=== PATIENT | female | born 1980 | race Hispanic/Latino ===

== ENCOUNTER → 2017-06-23 | Day surgery (SDC) | payer OTHER ==
[~2017-06-23] MED LIST: ACETAMINOPHEN 1000 MG/100 ML IV ONE; ALPRAZOLAM1 MG PO; AMBIEN CR PO; AMOXICILLIN250 MG; BACTRIM DS TAB1 EACH PO; BELLADONNA/OPIUM 60 MG SUPP PR ONE; CARVEDILOL12.5 MG PO; CEFEPIME-D1 GM/50 ML IV; CEFTIN500 MG PO; CIPRO250 MG; CIPRO500 MG PO; DIAZEPAM5 MG PO; HYDROMORPHONE 1MG/1ML INJ ONE; HYDROMORPHONE 2MG/ML INJ ONE; IOPAMIDOL 610MG/1ML 300 MG/ML VIAL IV ONE; LEVAQUIN500 MG PO; LORTAB 10-5001 EACH PO; MEPERIDINE HCL INJ 50 MG/ML INJ ONE; MEROPENEM 1GM 100 ML IV ONE; MOTRIN PO; NADOLOL; NEURONTIN300 MG PO; NORCO 10MG-325MG1 EA PO; POTASSIUM CITR10 MEQ PO; PROMETHAZINE HCL (IM) 25 MG/ML VIAL ONE; PROPOFOL IV EMULSION 10 MG/ML 20 ML VIAL ONE; PYRIDIUM; PYRIDIUM100 MG PO; PYRIDIUM200 MG PO; SEVOFLURANE INHAL SOLN 250 ML PEN BTL ONE; TYLENOL PO; ZYVOX600 MG PO; levothroxine PO
--- NOTE | 2017-08-14 07:45 | Operative Report ---
DATE OF PROCEDURE: June 23, 2017 PREOPERATIVE DIAGNOSES 1. Left ureterolithiasis. 2. Left nephrolithiasis. 3. Left indwelling ureteral stent. 4. Grade 2 cystocele. POSTOPERATIVE DIAGNOSES 1. Left ureterolithiasis. 2. Left nephrolithiasis. 3. Left indwelling ureteral stent. 4. Grade 2 cystocele. OPERATIONS PERFORMED 1. Cystourethroscopy with complicated removal of left indwelling ureteral stent (separate procedure performed with separate scope for the diagnosis of stent). 2. Left ureteroscopy with manipulation and extraction of left ureteral stone (separate procedure performed for diagnosis of stone). 3. Repeated left ureteroscopy with removal of 2 separate left kidney stones (separate procedure performed for the diagnosis of kidney stones). 4. Urological services for supervision and interpretation of ureteroscopy. 5. Interpretation of retrograde ureteropyelography. 6. Supervision of fluoroscopy. No radiologist present. 7. Pelvic examination under anesthesia. ANESTHESIA: General. COMPLICATIONS: None. CLINICAL SUMMARY: Indiana Rivas is a 36-year-old woman with obstructing left ureterolithiasis. She underwent ureteral stenting. The patient's ureterolithiasis is recurrent. The patient is an extremely complicated urological patient with recurrent admissions, difficult pain control, recurrent complicated urinary tract infections, and difficulty of intravenous access. The patient is brought to the operating room to remove her stent and hopefully render her stent-free and stone-free. She is aware of the risks of bleeding, infection, injury to adjacent structures, need for additional procedures, and need for ongoing urological followup, and compliance with outpatient appointments. She understood all these risks and elected to proceed. OPERATIVE PROCEDURE IN DETAIL: Informed consent was verified. Indiana Rivas was properly identified and taken to the operating room, and placed on the cystoscopy table in the supine position. Anesthesia was uneventfully begun. The patient was then carefully and gently repositioned in the dorsal lithotomy position with all pressure points well-padded. Her genitalia were prepared and draped in the usual sterile fashion. The 22.5-Danish cystoscope sheath with obturator in place was atraumatically inserted into the patient's urethra and the bladder was drained. Panendoscopy revealed no suspicious mucosal lesions. No tumors. No stones and no diverticula. There was a stent emerging from left ureteral orifice. The right ureteral orifice was unremarkable. A guidewire was then placed alongside the stent and guided to the level of the patient's kidney. The stent was then grasped, completely removed and discarded. Semi-rigid ureteroscope was then placed alongside the guidewire up into the left ureter. We identified blood clots as well as a stone. We utilized a Nitinol tipless basket to grasp the stone with the surrounding blood clots, and the stone and blood clots were atraumatically extracted. A secondary guidewire was left in place with the performance of an additional ureteroscopy that showed no additional stones remaining. Over the secondary guidewire, a flexible ureteroscope was then brought up and guided into the level of the patient's kidney. Panendoscopy revealed 2 stones. We grasped the first stone with the Nitinol tipless basket and extracted it. We then passed the ureteroscope back up into the kidney over the secondary guidewire. Careful panendoscopy revealed only 1 stone remaining. Donis plaques were present. No suspicious mucosal lesions were identified. We grasped the 2nd ureteral stone and we extracted it atraumatically carefully examining the ureter, which exhibited no residual blood clots. No residual stones. No strictures. No suspicious lesions. Prior to this final ureteroscopic extraction of the stone, blood clots from within the patient's left renal pelvis we irrigated out via the ureteroscope. At the end of this procedure, there were no blood clots within the upper collecting system and no stones remaining. The patient's bladder was then drained. The cystoscope was withdrawn. Pelvic examination under anesthesia revealed a grade 2 cystocele. No rectocele. No suspicious mucosal lesions were identified. The midurethral sling that was placed years ago seemed to be in an appropriate position. There was no evidence of erosion and no evidence of significant scarring. Interpretation of retrograde ureteropyelography. Contrast was instilled in a retrograde fashion on the left hand side. There was mild fullness of the upper collecting system as one would expect with a stent in place. There were some filling defects which later proved to both stone debris, as well as blood clots. At the end the case, unobstructed drainage was observed fluoroscopically. The patient was then uneventfully reversed from anesthesia and taken to the recovery room in stable condition. There were no complications to the procedure. She tolerated the procedure well. Estimated blood loss was minimal. Explicit postoperative instructions were given. Will plan on following the patient up in the office in a month. Job#: [id number] RI
== END | disposition home or self-care (01) ==
LOC: OR 08:39
PROVIDERS: ATTEND Urology
DX: N20.1 Calculus of ureter (principal); N20.0 Calculus of kidney; N18.9 Chronic kidney disease, unspecified; Z46.6 Encounter for fitting and adjustment of urinary device; N81.10 Cystocele, unspecified; N28.89 Other specified disorders of kidney and ureter; J45.909 Unspecified asthma, uncomplicated; R00.0 Tachycardia, unspecified
CPT/HCPCS: 52352; 74420; 87086; 87186; 88300; C1758; J1170 ×2; J1580; J2001; J2175; J2185; J2550; Q9967

== ENCOUNTER 2017-08-27 03:12 | Emergency (ER) | payer OTHER ==
[~2017-08-27] VITALS: Ht 152.4 cm; Wt 64.9 kg
[~2017-08-27 03:12] MED LIST changes: -ACETAMINOPHEN 1000 MG/100 ML IV ONE; -BELLADONNA/OPIUM 60 MG SUPP PR ONE; -HYDROMORPHONE 1MG/1ML INJ ONE; -HYDROMORPHONE 2MG/ML INJ ONE; -IOPAMIDOL 610MG/1ML 300 MG/ML VIAL IV ONE; -MEPERIDINE HCL INJ 50 MG/ML INJ ONE; -MEROPENEM 1GM 100 ML IV ONE; -PROMETHAZINE HCL (IM) 25 MG/ML VIAL ONE; -PROPOFOL IV EMULSION 10 MG/ML 20 ML VIAL ONE; -SEVOFLURANE INHAL SOLN 250 ML PEN BTL ONE
[2017-08-27] MEDS ORDERED: HYDROCODONE/APAP 5MG-325MG TAB PO ONE (03:15)
[2017-08-27] MEDS ORDERED: PROMETHAZINE HCL (IM) 25 MG/ML VIAL IM ONE (03:15)
[2017-08-27] MEDS ORDERED: CLINDAMYCIN PHOS 600 MG/ 4 ML VIAL IM ONE (03:15)
[2017-08-27] MEDS ORDERED: POTASSIUM CITR10 MEQ PO (03:40)
== END 2017-08-27 03:40 | disposition home or self-care (01) ==
LOC: FSED 03:12
DX: M79.631 Pain in right forearm (principal)
CPT/HCPCS: 99282; J2550

== ENCOUNTER 2017-08-30 11:42 | Emergency (ER) | payer OTHER ==
[~2017-08-30] VITALS: Ht 152.4 cm; Wt 64.9 kg
--- OUTSIDE RECORDS SUMMARY | 2017-08-30 11:46 | XMS REPORT | Continuity of Care Document ---
Author Author [facility] Organization [facility] Address [address] [place] [address] Phone Unavailable Care Team Providers Care Bag Press Operator Name Role Phone DASHA PEDROZA MD PCP Insurance Providers Guarantor Belia Vigil Address [address] [place] [address] Email @Exter[employer] Payer [facility] Policy Number [id number] Subscriber's Name EvelynVahe Marrero Relationship 01 Group Number [id number] Group Name [employer] Effective Date 16 Advance Directives Directive Response Recorded Date/Time Does the patient have an advance directive? No 01/06/17 8:00pm If yes, is advance directive on file with [facility]? No 10/26/16 6:07pm If not on file with [facility] will patient provide a copy? No 11/11/16 9:51pm Problems Medical Problem Onset Date Status Kidney stone 10/26/2015 Acute UTI (urinary tract infection) 01/01/2016 Acute Medications Current Home Medications Medication Dose Units Route Directions Days Qty Instructions Start Date Carvedilol 12.5 Mg Tablet 12.5 Mg Oral Every 12 Hours 60 Tab Phenazopyridine Hcl (Pyridium) 100 Mg Tablet 200 Mg Oral Daily Potassium Citrate 10 Meq Tablet.er 10 Meq Oral Daily 30 Cap Tylenol Oral As Needed Past Home Medications Medication Directions Ordered Status Acetaminophen/Hydrocodone Bitart (Erskine 10MG-325MG*) 1 Ea Tab, 1 Tab Oral Every 4-6 Hours as needed Discontinued Alprazolam 1 Mg Tablet, 1 Mg Oral Three Times A Day Discontinued Ambien Cr , 12.5 Mg Oral Bedtime Discontinued Amoxicillin 250 Mg Capsule, Discontinued Cefepime Hcl/D5w (Cefepime-Dextrose 1 Gm/50 Ml) 1 Gm/50 Ml Piggyback, 1 G Intraven Twice A Day Discontinued Cefuroxime Axetil (Ceftin) 500 Mg Tablet, 500 Mg Oral Twice A Day Discontinued Ciprofloxacin Hcl (Cipro) 500 Mg Tablet, 500 Mg Oral Twice A Day Discontinued Ciprofloxacin Hcl (Cipro) 500 Mg Tablet, 500 Mg Oral Every 12 Hours Discontinued Ciprofloxacin Hcl (Cipro) 250 Mg Tablet, Discontinued Diazepam 5 Mg Tablet, 3 Mg Oral Four Times Daily Discontinued Gabapentin (Neurontin) 300 Mg Capsule, 600 Mg Oral Three Times A Day Discontinued Hydrocodone Bit/Acetaminophen (Lortab 10-500 Tablet) 1 Each Tablet, 1 Tab Oral Four Times Daily Discontinued Levofloxacin (Levaquin) 500 Mg Tablet, 500 Mg Oral Daily Discontinued Levothroxine , 0.5 Mg Oral Daily Discontinued Linezolid (Zyvox) 600 Mg Tablet, 600 Mg Oral Every 12 Hours Discontinued Motrin , 800 Mg Oral As Needed Discontinued Nadolol , Discontinued Phenazopyridine Hcl (Pyridium) 200 Mg Tablet, 1 Tab Oral Rt Tid Discontinued Potassium Citrate 10 Meq Tablet.er, 10 Meq Oral Twice A Day Discontinued Pyridium , Discontinued Sulfamethoxazole/Trimethoprim (Bactrim Ds Tablet) 1 Each Tablet, 1 Tab Oral Twice A Day Discontinued Family History Relationship Condition Age at Onset Recorded Date/Time 33 Father Family history of high cholesterol Unknown 10/26/2015 6:07pm 33 Father Family history of hypertension Unknown 10/26/2015 6:07pm 32 Mother Family history of high cholesterol Unknown 10/26/2015 6:07pm Social History Social History Problem Response Recorded Date/Time Onset Date Status Hx Psychiatric Problems No 01/06/2017 8:00pm Not Applicable Not Applicable Hx Eating Disorder No 01/06/2017 8:00pm Not Applicable Not Applicable Hx Substance Use Disorder No 01/06/2017 8:00pm Not Applicable Not Applicable Hx Depression No 01/06/2017 8:00pm Not Applicable Not Applicable Hx Alcohol Use No 01/06/2017 8:00pm Not Applicable Not Applicable Hx Substance Use Treatment No 01/06/2017 8:00pm Not Applicable Not Applicable Hx Physical Abuse No 01/06/2017 8:00pm Not Applicable Not Applicable Smoking Status Start Date Stop Date Never Smoker Hospital Discharge Instructions No hospital discharge instruction information available. Plan of Care Discharge Date 08/27/17 3:40am Disposition HOME, SELF-CARE Condition at Discharge Stable Instructions/Education Provided Laceration Prescriptions See Medication Section Referrals DASHA PEDROZA MD Address: [address] [place] [id number] Additional Instructions/Education Discussed with patient important of follow up with MD for wound check. Take medications as needed for pain and nausea/vomiting. ED warnings given. Functional Status No functional status information available. Allergies, Adverse Reactions, Alerts Allergen Type Severity Reaction Status Last Updated dexamethasone sod phosphate Allergy Intermediate RASH Active 12/05/11 iodine Allergy Intermediate hives Active 10/26/15 Morphine Allergy Mild Active 08/29/08 Dexamethasone Allergy Intermediate RASH Active 10/31/15 Fentanyl Allergy Mild Active 08/29/08 Tramadol Allergy Mild Hives, chest pressure Active 10/31/15 Butorphanol Allergy Mild Active 08/29/08 Ondansetron Adverse Reaction Mild ELEVATES BP Active 10/26/15 Ketorolac Allergy Mild Active 08/29/08 TEGADERM Allergy Mild redness, skin irritation Active 10/31/15 Immunizations No immunization information available. Vital Signs Acute Vital Signs Vital Response Date/Time Temperature (Fahrenheit) 97.5 degrees F (97.6 - 99.5) 04/07/2017 2:28am Pulse Pulse Rate (adult) 68 bpm (60 - 90) 04/07/2017 2:28am Respiratory Rate 19 bpm (12 - 24) 04/07/2017 2:28am Blood Pressure 131/88 mm Hg 04/07/2017 2:28am Height 5 ft 0 in 08/27/2017 3:17am Weight 143.13 lb 08/27/2017 3:17am Body Mass Index 28.0 kg/m^2 08/27/2017 3:17am Results Laboratory Results Test Name Result Units Flags Reference Collection Date/Time Result Date/ Time Comments Urine Opiates Screen POSITIVE H NEGATIVE 01/06/2017 1:19pm 01/06/2017 3:21pm This test provides only a screen. Positive results should be repeated by a confirmatory test. Urine Barbiturates Screen NEGATIVE NEGATIVE 01/06/2017 1:19pm 2016 3:21pm Urine Amphetamines Screen NEGATIVE NEGATIVE 01/06/2017 1:19pm 2016 3:21pm Urine Benzodiazepines Screen POSITIVE H NEGATIVE 01/06/2017 1:19pm 3:21pm This test provides only a screen. Positive results should be repeated by a confirmatory test. Urine Cocaine Screen NEGATIVE NEGATIVE 01/06/2017 1:19pm 01/06/2017 3 :21pm Urine Cannabinoids Screen NEGATIVE NEGATIVE 01/06/2017 1:19pm 2016 3:21pm THESE RESULTS ARE FOR MEDICAL TREATMENT ONLY *THIS REPORT CONTAINS UNCONFIRMED SCREENING RESULTS* POSITIVE RESULTS WILL BE CONFIRMED BY REFERENCE LAB UPON REQUEST CUT-OFF DRUG CLASS CONCENTRATION ng/mL Amphetamines 1000 Methamphetamines 1000 Cocaine 300 Opiate 300 Phencyclidine 25 Cannabinoid 50 Barbiturates 300 Benzodiazepine 300 Methadone 300 Urine Calcium Oxalate Crystals FEW FEW 01/06/2017 1:19pm 01/06/2017 3 :42pm Total Creatine Kinase 139 U/L 24-173 01/11/2017 7:m 01/14/2017 12: 38pm Macro Creatine Kinase Type II 0 % Not Observed 01/11/2017 7:11a2016 12:38pm Creatine Kinase MM 100 % 97-100 01/11/2017 7:11a01/14/2017 12:38pm Creatine Kinase BB 0 % 0 01/11/2017 7:11a01/14/2017 12:38pm Performed at: - [facility] [address] [id number] Petal Shaper Hand: Paulie Stevenson MD, Phone: [phone] Performed at: DA - [facility] [address] [id number] Petal Shaper Hand: MADISYN Garcia MD, Phone: [phone] Macro Creatine Kinase Type I 0 % Not Observed 01/11/2017 7:11am 2016 12:38pm Creatine Kinase MB 0 % 0-3 01/11/2017 7:11am 01/14/2017 12:38pm White Blood Count 6.04 x10e3/uL 4.8-10.8 01/20/2017 5:00pm 01/20/2017 5 :19pm Red Blood Count 4.05 x10e6/uL 3.6-5.1 01/20/2017 5:00pm 01/20/2017 5: 19pm Hemoglobin 11.0 g/dL L 12.0-16.0 01/20/2017 5:00pm 01/20/2017 5:19pm Hematocrit 34.1 % L 34.2-44.1 01/20/2017 5:00pm 01/20/2017 5:19pm Mean Corpuscular Volume 84.2 fL 81-99 01/20/2017 5:00pm 01/20/2017 5: 19pm Mean Corpuscular Hemoglobin 27.2 pg L 28-32 01/20/2017 5:00pm 2016 5:19pm Mean Corpuscular Hemoglobin Concent 32.3 g/dL 31-35 01/20/2017 5:00pm 01/20/2017 5:19pm Red Cell Distribution Width 14.6 % H 11.7-14.4 01/20/2017 5:00pm 2016 5:19pm Platelet Count 437 x10e3/uL H 140-360 01/20/2017 5:00pm 01/20/2017 5: 19pm Neutrophils (%) (Auto) 38.8 % 38.7-80.0 01/20/2017 5:00pm 01/20/2017 5: 19pm Lymphocytes (%) (Auto) 40.7 % H 18.0-39.1 01/20/2017 5:00pm 01/20/2017 5 :19pm Monocytes (%) (Auto) 9.9 % 4.4-11.3 01/20/2017 5:00pm 01/20/2017 5: 19pm Eosinophils (%) (Auto) 10.1 % H 0.0-6.0 01/20/2017 5:00pm 01/20/2017 5: 19pm Basophils (%) (Auto) 0.3 % 0.0-1.0 01/20/2017 5:00pm 01/20/2017 5:19pm IM GRANULOCYTES % 0.2 % 0.0-1.0 01/20/2017 5:00pm 01/20/2017 5:19pm Neutrophils # (Auto) 2.3 2.1-6.9 01/20/2017 5:00pm 01/20/2017 5:19pm Lymphocytes # (Auto) 2.5 1.0-3.2 01/20/2017 5:00pm 01/20/2017 5:19pm Monocytes # (Auto) 0.6 0.2-0.8 01/20/2017 5:00pm 01/20/2017 5:19pm Eosinophils # (Auto) 0.6 H 0.0-0.4 01/20/2017 5:00pm 01/20/2017 5: 19pm Basophils # (Auto) 0.0 0.0-0.1 01/20/2017 5:00pm 01/20/2017 5:19pm Absolute Immature Granulocyte (auto 0.01 x10e3/uL 0-0.1 01/20/2017 5: 00pm 01/20/2017 5:19pm Prothrombin Time 12.7 seconds 11.9-14.5 01/20/2017 5:00pm 01/20/2017 5: 19pm Prothromb Time International Ratio 0.91 01/20/2017 5:00pm 2016 5:19pm Oral Anticoagulant Therapy INR Values: 1. Low Intensity Therapy 1.5 - 2.0 2. Moderate Intensity Therapy 2.0 - 3.0 3. High Intensity Therapy(1) 2.5 - 3.5 4. High Intensity Therapy(2) 3.0 - 4.0 5. Panic Value INR > 5.0 Activated Partial Thromboplast Time 31.3 seconds 23.8-35.5 01/20/2017 5: 00pm 01/20/2017 5:20pm Sodium Level 138 mmol/L 136-145 01/20/2017 5:00pm 01/20/2017 5:29pm Potassium Level 4.3 mmol/L 3.5-5.1 01/20/2017 5:00pm 01/20/2017 5:29pm Chloride Level 109 mmol/L H 98-107 01/20/2017 5:00pm 01/20/2017 5:29pm Carbon Dioxide Level 17 mmol/L L 22-29 01/20/2017 5:00pm 01/20/2017 5: 29pm Anion Gap 16.3 mmol/L H 8-16 01/20/2017 5:00pm 01/20/2017 5:29pm Blood Urea Nitrogen 15 mg/dL 7-26 01/20/2017 5:00pm 01/20/2017 5:29pm Creatinine 0.83 mg/dL 0.57-1.11 01/20/2017 5:00pm 01/20/2017 5:29pm BUN/Creatinine Ratio 18 6-25 01/20/2017 5:00pm 01/20/2017 5:29pm Estimat Glomerular Filtration Rate > 60 ML/MIN 60- 01/20/2017 5:00pm 5:29pm Ranges were taken from the National Kidney Disease Education Program and the National Kid[employer] Foundation literature. Reference ranges: 60 or greater: Normal 16-59 (for 3 consecutive months): Chronic kidney disease 15 or less: Kidney failure Glucose Level 109 mg/dL 74-118 01/20/2017 5:00pm 01/20/2017 5:29pm Calcium Level 9.9 mg/dL 8.4-10.2 01/20/2017 5:00pm 01/20/2017 5:29pm Total Bilirubin 0.3 mg/dL 0.2-1.2 01/20/2017 5:00pm 01/20/2017 5:29pm Aspartate Amino Transf (AST/SGOT) 50 IU/L H 5-34 01/20/2017 5:00pm 01/20 5:29pm Alanine Aminotransferase (ALT/SGPT) 42 IU/L 0-55 01/20/2017 5:00pm 5:29pm Total Protein 8.4 g/dL H 6.5-8.1 01/20/2017 5:00pm 01/20/2017 5:29pm Albumin 4.3 g/dL 3.5-5.0 01/20/2017 5:00pm 01/20/2017 5:29pm Globulin 4.1 g/dL H 2.3-3.5 01/20/2017 5:00pm 01/20/2017 5:29pm Albumin/Globulin Ratio 1.0 0.8-2.0 01/20/2017 5:00pm 01/20/2017 5: 29pm Alkaline Phosphatase 107 IU/L 40-150 01/20/2017 5:00pm 01/20/2017 5: 29pm Urine Color YELLOW YELLOW 04/07/2017 12:39am 04/07/2017 12:42am Urine Clarity CLEAR CLEAR 04/07/2017 12:39am 04/07/2017 12:42am Urine Specific [place] 1.020 1.010-1.025 04/07/2017 12:39am 2016 12:42am Urine pH 6 5 - 7 04/07/2017 12:39am 04/07/2017 12:42am Urine Leukocyte Esterase NEGATIVE NEGATIVE 04/07/2017 12:39am 2016 12:42am Urine Nitrite NEGATIVE NEGATIVE 04/07/2017 12:39am 04/07/2017 12: 42am Urine Protein NEGATIVE NEGATIVE 04/07/2017 12:39am 04/07/2017 12: 42am Urine Glucose (UA) NEGATIVE NEGATIVE 04/07/2017 12:39am 04/07/2017 12 :42am Urine Ketones NEGATIVE NEGATIVE 04/07/2017 12:39am 04/07/2017 12: 42am Urine Urobilinogen 0.2 mg/dL 0.2 - 1 04/07/2017 12:39am 04/07/2017 12: 42am Urine Bilirubin NEGATIVE NEGATIVE 04/07/2017 12:39am 04/07/2017 12: 42am Urine Blood NEGATIVE NEGATIVE 04/07/2017 12:39am 04/07/2017 12:42am Urine WBC 0-5 /HPF 0-5 04/07/2017 12:39am 04/07/2017 12:51am Urine RBC 0-5 /HPF 0-5 04/07/2017 12:39am 04/07/2017 12:51am Urine Bacteria FEW /HPF NONE 04/07/2017 12:39am 04/07/2017 12:51am Urine Epithelial Cells RARE /LPF NONE 04/07/2017 12:39am 04/07/2017 12: 51am Urine Mucus FEW H RARE 04/07/2017 12:39am 04/07/2017 12:51am Microbiology Results Procedure Source Organism/Result Collection Date/Time Result Date/Time Result Status Urine Culture Urine,Clean Catch ESCHERICHIA COLI 11/11/2016 7:20pm 2016 8:00am Final Urine Culture Urine,Catheterized ENTEROCOCCUS FAECIUM-VRE 06/23/2017 11: 25am 06/26/2017 10:41am Final Procedures Procedure Status Date Provider(s) INSERTION OF INFUSION DEV INTO SUP VENA CAVA, PERC APPROACH Completed AL HYDE MD CYSTOURETERO W/STONE REMOVE Completed 06/23/17 SMIAT BRUNO MD MRI upper extremity w/o dye Active 01/09/17 AL HYDE MD MRI non-joint region of extremity upper wo contrast Active 01/09/17 AL HYDE MD Encounters Encounter Location Arrival/Admit Date Discharge/Depart Date Attending Provider Departed Emergency Room [facility] 08/27/17 3:12am 3:40am IMMANUEL POLLOCK MD Registered Emergency Room [facility] 08/27/17 3:00am IMMANUEL POLLOCK MD Registered Emergency Room [facility] 08/27/17 2:16am IMMANUEL POLLOCK MD Registered Surgical Day Care [facility] 06/23/17 8:39am SMITA BRUNO MD Departed Emergency Room [facility] 04/07/17 12:10am 04/07 2:44am AYDEN COLLADO MD Departed Emergency Room [facility] 04/06/17 4:12pm 7:40pm AYDEN COLLADO MD Departed Emergency Room [facility] 01/21/17 2:13am 6:02am AYDEN COLLADO MD Departed Emergency Room [facility] 01/20/17 3:42pm 10:58pm AYDEN COLLADO MD Discharged Inpatient [facility] 01/08/17 9:00am 01/11/17 11:09pm AL HYDE MD Departed Emergency Room [facility] 11/11/16 7:03pm 10:11pm IMMANUEL RANKIN MD
--- OUTSIDE RECORDS SUMMARY | 2017-08-30 11:46 | XMS REPORT | Clinical Summary ---
Author Author [facility] Organization [facility] Address Unknown Phone Unavailable Care Team Providers Care Recovery Advocate Name Role Phone Asked, Pcp PCP Unavailable Allergies Active Allergy Reactions Severity Noted Date Comments Dexamethasone Other (See Comments) 07/14/2016 Dizziness, headache, body tingling Dexamethasone Other (See Comments) 09/27/2016 Headache and hypertension Pimecrolimus Itching, Rash Low 07/14/2016 Fentanyl Shortness Of Breath High 07/14/2016 cp Fentanyl 01/13/2017 Iodine Rash Low 07/14/2016 IV CONTRAST Morphine Shortness Of Breath High 07/14/2016 RASH Morphine Rash Low 09/27/2016 Chest pain Butorphanol Tartrate Rash Low 07/14/2016 Chest tightness Butorphanol Tartrate 01/13/2017 Ketorolac GI Intolerance 07/14/2016 SEVERE VOMITING AND RASH Ketorolac Rash Low 09/27/2016 Chest pain Tramadol Rash Low 09/27/2016 Chest pain Tramadol Rash Low 07/14/2016 Tightness in chest Ondansetron Hcl Other (See Comments) 07/14/2016 HIGH BLOOD PRESSURE WITH SEVERE HEADACHE Ondansetron 09/27/2016 headache Current Medications Prescription Sig. Disp. Refills Start End Date Status Date potassium citrate Take 10 mEq by mouth 2 Active (UROCIT-K) 10 mEq (1,080 (two) times a day. mg) CR tablet phenazopyridine Take 200 mg by mouth 3 Active (PYRIDIUM) 200 MG tablet (three) times a day as needed for bladder spasms. carvedilol (COREG) 12.5 Take 12.5 mg by mouth 2 Active MG tablet (two) times a day with meals. For tachycardia ALPRAZolam (XANAX) 1 MG Take 1 mg by mouth 2 Active tablet (two) times a day. hydromorPHONE (DILAUDID) Take 8 mg by mouth every Active 8 MG tablet 4 (four) hours as needed for moderate pain. fluconazole (DIFLUCAN) Take 200 mg by mouth Active 200 MG tablet daily as needed. For prophylaxis carisoprodol (SOMA) 350 Take 350 mg by mouth 3 Active MG tablet (three) times a day as needed for muscle spasms. promethazine (PHENERGAN) Take 25 mg by mouth every Active 25 MG tablet 6 (six) hours as needed for nausea or vomiting. acetaminophen-codeine Take 1 tablet by mouth 08/24/19 Active (TYLENOL WITH CODEINE #3) every 4 (four) hours as 18 300-30 mg per tablet needed. cephalexin (KEFLEX) 500 Take 500 mg by mouth 2 08/24/19 Active MG capsule (two) times a day. 18 eszopiclone (LUNESTA) 2 Take 2 mg by mouth 08/22/19 Active MG tablet nightly. 18 buPROPion XL (WELLBUTRIN Take 300 mg by mouth 08/03/19 Active XL) 300 MG 24 hr tablet every morning. 18 HYDROcodone-acetaminophen Take 1 tablet by mouth 08/28/19 Discontin (NORCO) 10-325 mg per every 8 (eight) hours as 18 ued tablet needed for moderate pain (breakthrough pain). diazePAM (VALIUM) 5 MG Take 5 mg by mouth every 08/28/19 Discontin tablet 12 (twelve) hours as 18 ued needed for muscle spasms. buprenorphine (BUTRANS) Place 10 mcg on the skin 08/28/19 Discontin 10 mcg/hour patch weekly as needed (pain). 18 ued zolpidem CR (AMBIEN CR) Take 12.5 mg by mouth 08/28/19 Discontin 12.5 MG CR tablet nightly as needed for 18 ued sleep. traZODone (DESYREL) 100 Take 100 mg by mouth 08/28/19 Discontin MG tablet nightly. 18 ued levoFLOXacin (LEVAQUIN) Take 1 tablet (750 mg 5 tablet 0 04/07/20 Discontin 750 MG tablet total) by mouth daily for 17 17 ued 5 days. ciprofloxacin (CIPRO) 500 Take 500 mg by mouth 2 08/28/19 Discontin MG tablet (two) times a day. 18 ued amoxicillin (AMOXIL) 500 Take 500 mg by mouth 3 08/28/19 Discontin MG capsule (three) times a day. 18 ued carvedilol (COREG) 12.5 Take 12.5 mg by mouth 3 1 08/25/19 08/28/19 Discontin MG tablet (three) times a day. 17 18 ued ALPRAZolam (XANAX) 1 MG Take 1 mg by mouth 3 08/28/19 Discontin tablet (three) times a day. 18 ued phenazopyridine Take 200 mg by mouth 3 08/28/19 Discontin (PYRIDIUM) 200 MG tablet (three) times a day as 18 ued needed for bladder spasms. zolpidem CR (AMBIEN CR) Take 12.5 mg by mouth 08/28/19 Discontin 12.5 MG CR tablet nightly as needed for 18 ued sleep. potassium chloride Take 10 mEq by mouth 2 08/28/19 Discontin (KLOR-CON) 20 mEq packet (two) times a day. 18 ued levoFLOXacin (LEVAQUIN) Take 1 tablet (750 mg 5 tablet 0 04/08/20 750 MG tablet total) by mouth daily for 17 17 5 days. Active Problems Problem Noted Date Foreign body left in wound 08/28/2017 DVT (deep venous thrombosis) 01/16/2017 Chronic UTI 01/14/2017 Idiopathic acute pancreatitis without infection or necrosis 09/27/2016 Idiopathic pancreatitis 09/27/2016 Acute cystitis 07/15/2016 Renal stones 07/14/2016 Encounters Date Type Specialty Care Team Description 08/28/2017 Emergency General Internal Medicine Camilo Oneil MD Foreign body left in - Martir Patterson MD wound (Primary Dx) 08/29/2017 04/08/2017 Emergency Emergency Medicine Robin French, Urinary tract infection associated with indwelling urethral catheter, initial encounter (Primary Dx) 04/07/2017 Emergency Emergency Medicine Kt Oliva DO Acute cystitis without hematuria (Primary Dx) 01/13/2017 Emergency General Internal Medicine Diana Barton MD Chronic UTI (Primary Dx); - Bailey Graham MD Pyelonephritis; 01/15/2017 Intractable vomiting with nausea, unspecified vomiting type; Dehydration; Hematuria; Renal colic on left side; Fever, unspecified fever cause; VRE (vancomycin-resistant Enterococci) infection 09/27/2016 [facility] General Internal Medicine Dominic Nicolas DO Idiopathic acute - Encounter Keaton Oseguera MD pancreatitis without 09/28/2016 infection or necrosis (Primary Dx); Kidney stone; Medullary sponge kidney; Intractable cyclical vomiting with nausea after 08/29/2016 Social History Tobacco Use Types Packs/Day Years Used Date Never Smoker Smokeless Tobacco: Never Used Alcohol Use Drinks/Week oz/Week Comments No Sex Assigned at Date Recorded Not on file Last Filed Vital Signs Vital Sign Reading Time Taken Blood Pressure 119/69 08/28/2017 11:51 PM ADMITTING COORDINATOR Pulse 127 08/28/2017 11:51 PM ADMITTING COORDINATOR Temperature 35.7 C (96.2 F) 08/28/2017 11:51 PM ADMITTING COORDINATOR Respiratory Rate 16 08/28/2017 11:51 PM ADMITTING COORDINATOR Oxygen Saturation 99% 08/28/2017 11:51 PM ADMITTING COORDINATOR Inhaled Oxygen - - Concentration Weight 67.6 kg (149 lb) 08/28/2017 2:38 PM ADMITTING COORDINATOR Height 152.4 cm (5') 08/28/2017 2:38 PM ADMITTING COORDINATOR Body Mass Index 29.1 08/28/2017 2:38 PM ADMITTING COORDINATOR Plan of Treatment Health Maintenance Due Date Last Done Comments PAP SMEAR 12/18/2000 INFLUENZA VACCINE 02/07/2017 Implants Implanted Type Area [employer] Device Expiration Model / Identifier Date Serial / Lot Bladder Sling Breast Implant-01/14/2009 Implanted: 01/14/2009 (Quantity not on file) Results * Estimated GFR (08/28/2017 6:02 PM) Only the most recent of 5 results within the time period is included. Component Value Ref Range GFR Non Af Amer 70 mL/min/1.73 m2 GFR Af Amer 85 mL/min/1.73 m2 Comment: Chronic kidney disease: <60 mL/min/1.73m2 Kidney failure: <15 mL/min/1.73m2 The estimated GFR is calculated from the IDMS-traceable Modification of Diet in Renal Disease Equation. The accuracy of the calculation is poor when the creatinine is normal. Calculated values >90 mL/min/1.73m2 are not reported. This equation has not been validated in children (<18 years), women, the elderly (>70 years), or ethnic groups other than Caucasians and Americans. Specimen Performing Laboratory Plasma specimen [facility] DEPARTMENT OF PATHOLOGY AND [facility] MEDICINE [address] [place] [address] * CBC with platelet and differential (08/28/2017 6:02 PM) Only the most recent of 6 results within the time period is included. Component Value Ref Range WBC 5.98 4.50 - 11.00 k/uL RBC 4.03 (L) 4.20 - 5.50 m/uL HGB 10.2 (L) 12.0 - 16.0 g/dL HCT 32.5 (L) 37.0 - 47.0 % MCV 80.6 (L) 82.0 - 100.0 fL MCH 25.3 (L) 27.0 - 34.0 pg MCHC 31.4 31.0 - 37.0 g/dL RDW - SD 48.6 37.0 - 55.0 fL MPV 9.8 8.8 - 13.2 fL Platelet count 371 150 - 400 k/uL Nucleated RBC 0.00 /100 WBC Neutrophils 44.9 39.0 - 69.0 % Lymphocytes 38.6 25.0 - 45.0 % Monocytes 7.9 0.0 - 10.0 % Eosinophils 8.2 (H) 0.0 - 5.0 % Basophils 0.2 0.0 - 1.0 % Immature granulocytes 0.2Comment: "Immature granulocytes" 0.0 - 1.0 % (promyelocytes, myelocytes, metamyelocytes) Specimen Performing Laboratory Blood [facility] DEPARTMENT OF PATHOLOGY AND [facility] MEDICINE [address] [place] [address] * Comprehensive metabolic panel (08/28/2017 6:02 PM) Only the most recent of 4 results within the time period is included. Component Value Ref Range Sodium 140 135 - 148 mEq/L Potassium 3.6 3.5 - 5.0 mEq/L Chloride 102 98 - 112 mEq/L CO2 25 24 - 31 mEq/L Anion gap 13 7 - 15 mEq/L Comment: Starting from October , anion gap calculation no longer incorporates potassium. Please note the change. BUN 16 6 - 20 mg/dL Creatinine 0.9 0.5 - 0.9 mg/dL Glucose 109 (H) 65 - 99 mg/dL Calcium 9.6 8.3 - 10.2 mg/dL Protein 7.8 6.3 - 8.3 g/dL Comment: [place] 4.6-7.0 g/dL 1 week 4.4-7.6 g/dL 7 months-1year 5.1-7.3 g/dL 1-2 years 5.6-7.5 g/dL >3 years 6.0-8.0 g/dL 18-150 6.3-8.3 g/dL Albumin 4.1 3.5 - 5.0 g/dL A/G ratio 1.1 0.7 - 3.8 Alkaline phosphatase 96 35 - 104 U/L AST 24 10 - 35 U/L ALT 16 5 - 50 U/L Total bilirubin 0.2 0.0 - 1.2 mg/dL Specimen Performing Laboratory Plasma specimen [facility] DEPARTMENT OF PATHOLOGY AND GENOMIC MEDICINE [address] [place] [address] * XR Forearm 2 Vw Right (08/28/2017 5:17 PM) Only the most recent of 2 results within the time period is included. Specimen Performing Laboratory [facility] [address] [place] [address] Narrative EXAMINATION:XR FOREARM 2 VW RIGHT CLINICAL HISTORY:s p wound cleaning. re evaluate for FB COMPARISON:None. IMPRESSION: There is some subcutaneous air adjacent to the distal radius. No metallic foreign body is noted. [id number] Procedure Note Interface, Radiology Results Incoming - 08/28/2017 5:48 PM ADMITTING COORDINATOR EXAMINATION: XR FOREARM 2 VW RIGHT CLINICAL HISTORY: s p wound cleaning. re evaluate for FB COMPARISON: None. IMPRESSION: There is some subcutaneous air adjacent to the distal radius. No metallic foreign body is noted. [id number] * Urinalysis screen and microscopy, with reflex to culture (04/08/2017 1:48 PM) Only the most recent of 2 results within the time period is included. Component Value Ref Range Specimen site Clean catch Color, UA Yellow Appearance, UA Clear Specific gravity, UA 1.017 1.001 - 1.035 pH, UA 5.0 5.0 - 8.5 Protein, UA 1+ (A) Negative Glucose, UA Negative Negative Ketones, UA Negative Negative Bilirubin, UA Negative Negative Blood, UA Large (A) Negative Nitrite, UA Negative Negative Urobilinogen, UA <2.0 <2.0 Leukocyte esterase, UA Negative Negative Epithelial cells, UA <1 /HPF WBC, UA 12 (H) 0 - 4 /HPF RBC, UA 38 (H) 0 - 2 /HPF Bacteria, UA Few None seen Yeast, UA None seen Yeast with pseudohyphae, None seen UA Specimen Performing Laboratory Urine [facility] DEPARTMENT OF PATHOLOGY AND GENOMIC MEDICINE [address] [place] [address] * Gram stain (04/08/2017 1:43 PM) Only the most recent of 2 results within the time period is included. Component Value Ref Range Gram stain result Few WBC's Many Gram negative rods Comment: Specimen Information Specimen Source: Urine Specimen Site: See UA Specimen Performing Laboratory Urine [facility] DEPARTMENT OF PATHOLOGY AND GENOMIC MEDICINE [address] [place] [address] * Urine culture (04/08/2017 1:43 PM) Only the most recent of 2 results within the time period is included. Component Value Ref Range Urine culture isolate Escherichia coli >10-5 cfu/ml (A) Comment: Specimen Information Specimen Source: Urine Specimen Site: See UA Specimen Performing Laboratory Urine [facility] DEPARTMENT OF PATHOLOGY AND GENOMIC MEDICINE [address] [place] [address] Organism Antibiotic Method Susceptibility Escherichia coli Ampicillin EFE 16 mcg/mL: Resistant Escherichia coli Amoxicillin/Clavulanate EFE <=2/1 mcg/mL: Susceptible Escherichia coli Amikacin EFE <=4 mcg/mL: Susceptible Escherichia coli Aztreonam EFE <=1 mcg/mL: Susceptible Escherichia coli Ceftazidime EFE <=0.5 mcg/mL: Susceptible Escherichia coli Ciprofloxacin EFE <=0.5 mcg/mL: Susceptible Escherichia coli Ceftriaxone EFE <=0.5 mcg/mL: Susceptible Escherichia coli Cefuroxime Sodium EFE <=4 mcg/mL: Susceptible Escherichia coli Cefazolin EFE 2 mcg/mL: Susceptible Escherichia coli Cefipime EFE <=0.5 mcg/mL: Susceptible Escherichia coli Nitrofurantoin EFE >64 mcg/mL: Resistant Escherichia coli Cefoxitin EFE <=4 mcg/mL: Susceptible Escherichia coli Gentamicin EFE <=1 mcg/mL: Susceptible Escherichia coli Imipenem EFE 0.5 mcg/mL: Susceptible Escherichia coli Levofloxacin EFE <=1 mcg/mL: Susceptible Escherichia coli Meropenem EFE <=0.125 mcg/mL: Susceptible Escherichia coli Tobramycin EFE <=0.5 mcg/mL: Susceptible Escherichia coli Ampicillin/Sulbactam EFE 4/2 mcg/mL: Susceptible Escherichia coli Trimethoprim/Sulfamethoxa EFE <=0.5/9.5 mcg/mL: zole Susceptible Escherichia coli Tetracycline EFE <=1 mcg/mL: Susceptible Escherichia coli Piperacillin/Tazobactam EFE <=2/4 mcg/mL: Susceptible Escherichia coli Ertapenem EFE <=0.125 mcg/mL: Susceptible Escherichia coli Tigecycline EFE <=0.5 mcg/mL: Susceptible * hCG qualitative, urine screen (04/07/2017 9:05 PM) Component Value Ref Range hCG qualitative, urine Negative Negative Comment: The manufacturers stated sensitivity of HcG test for serum is >/=10 mIU/ml and urine is >/=20mIU/ml. Specimen Performing Laboratory Urine [facility] DEPARTMENT OF PATHOLOGY AND GENOMIC MEDICINE [address] [place] [address] [place] [address] * PV duplex venous upper extremity (01/14/2017 8:40 AM) Specimen Performing Laboratory [facility] [address] [place] [address] Narrative Vascular Ultrasound Laboratory Upper Extremity Venous Report [address]Name:Usha RIVAS.ID:[id number] .Date: 01/14/2017Refer.MD:BAILEY GRAHAM MD. Exam Time: 8:11:00 AMStudy Type:UE Venous DOBAge:1980,36Y Sex: FEMALE Sonogrphr: Oscar Caceres RVSPat. Stat.:Inpatient TapeVol: FE, CPT - 4: 52669 Echo Event ID:[id number] Order ID:[id number] Reason for Study:Right arm pain and redness; S/P PICC 01/07/2017 at outside facility. Kidney conditiona and UTI. Race:C SUMMARY: DUPLEX SCAN OBSERVATIONS Right Left IJNormal Normal SubclavianNormal Normal AxillaryNormal Normal BrachialNormal Normal BasilicPartial Partial CephalicNormal Normal RIGHT:The basilic vein is partiallycompressible, and dilated with echogenic material noted within the lumen of the visualized vein. Colorflow and Doppler signals are present. LEFT: The basilic vein is partiallycompressible, and dilated with echogenic material noted within the lumen of the visualized vein. Colorflow and Doppler signals are present. PRELIMINARY FINDINGS 1.Partial venous thrombosis of the basilic vein, . Fndings reported to and read back by Castillo Barker on 01/14/2017 @ 8:45. PHYSICIAN INTERPRETATION 1.Venous examination of both upper extremities and neck demonstrates partial thrombosis of the right and left basilic veins. Signed 01/14/2017 09:10 AM Kale Meadows MD Procedure Note Interface, Radiology Results In - 01/14/2017 9:12 AM CDT Vascular Ultrasound Laboratory Upper Extremity Venous Report [address] [place] [address] Pat.Name: [place] RIVAS Pat.ID: [id number] .Date: 01/14/2017 Refer.MD: BAILEY GRAHAM MD. Exam Time: 8:11:00 AM Study Type:UE Venous Age: 5 1980,36Y Sex: FEMALE Sonogrphr: DARIN Navarrete Pat. Stat.:Inpatient Tape Vol: FE, CPT - 4: 53397 Echo Event ID:[id number] Order ID: [id number] Reason for Study:Right arm pain and redness; S/P PICC 01/07/2017 at outside facility. Kidney conditiona and UTI. Race: C SUMMARY: DUPLEX SCAN OBSERVATIONS Right Left IJ Normal Normal Subclavian Normal Normal Axillary Normal Normal Brachial Normal Normal Basilic Partial Partial Cephalic Normal Normal RIGHT: The basilic vein is partiallycompressible, and dilated with echogenic material noted within the lumen of the visualized vein. Colorflow and Doppler signals are present. LEFT: The basilic vein is partiallycompressible, and dilated with echogenic material noted within the lumen of the visualized vein. Colorflow and Doppler signals are present. PRELIMINARY FINDINGS 1. Partial venous thrombosis of the basilic vein, . Fndings reported to and read back by Castillo Barker on 01/14/2017 @ 8:45. PHYSICIAN INTERPRETATION 1. Venous examination of both upper extremities and neck demonstrates partial thrombosis of the right and left basilic veins. Signed 01/14/2017 09:10 AM Kale Meadows MD * Partial thromboplastin time, activated (01/14/2017 5:00 AM) Component Value Ref Range PTT 31.1 23.0 - 36.0 sec Comment: PTT therapeutic range for unfractionated heparin is 61.0-112.0 seconds which corresponds to Anti-Xa 0.3-0.7 U/ml. Specimen Performing Laboratory Blood [facility] DEPARTMENT OF PATHOLOGY AND [facility] MEDICINE [address] [place] [address] * Sedimentation rate (01/14/2017 5:00 AM) Component Value Ref Range Sedimentation rate 19 0 - 20 mm/hr Specimen Performing Laboratory Blood [facility] DEPARTMENT OF PATHOLOGY AND GENOMIC MEDICINE [address] [place] [address] * Prothrombin time with INR (01/14/2017 5:00 AM) Component Value Ref Range Prothrombin time 13.7 12.0 - 15.0 sec INR 1.0 Comment: The International Normalized Ratio (INR) is a therapeutic monitoring tool for patients who are stable on oral anticoagulant therapy. An INR of 2.0-3.0 is suggested for deep vein thrombosis/pulmonary embolism. Specimen Performing Laboratory Blood [facility] DEPARTMENT OF PATHOLOGY AND GENOMIC MEDICINE [address] [place] [address] * Troponin (01/14/2017 4:00 AM) Component Value Ref Range Troponin <0.30 0.00 - 0.30 ng/mL Comment: 0.30 - 1.49 ng/ml May indicate increased risk of acute coronary syndrome. >=1.5 ng/ml Consistent with acute myocardial infarction. The diagnostic value of a single normal or non-diagnostic result is questionable. Serial samples at 2-6 hour intervals are required to rule out acute myocardial injury. Specimen Performing Laboratory Plasma specimen [facility] DEPARTMENT OF PATHOLOGY AND GENOMIC MEDICINE [address] [place] [address] * C-reactive protein (01/14/2017 4:00 AM) Component Value Ref Range CRP <0.30 0.00 - 0.50 mg/dL Specimen Performing Laboratory Plasma specimen [facility]PARTMENT OF PATHOLOGY AND [facility] MEDICINE [address] [place] [address] * Thyroid stimulating hormone (01/14/2017 4:00 AM) Component Value Ref Range TSH 3.11 0.27 - 4.20 uIU/mL Specimen Performing Laboratory Plasma specimen [facility] DEPARTMENT OF PATHOLOGY AND [facility] MEDICINE [address] [place] [address] * Magnesium level (01/14/2017 4:00 AM) Component Value Ref Range Magnesium 1.7 1.6 - 2.6 mg/dL Specimen Performing Laboratory Plasma specimen [facility] [place] [address] * Lipase level (01/14/2017 4:00 AM) Only the most recent of 2 results within the time period is included. Component Value Ref Range Lipase 36 13 - 60 U/L Specimen Performing Laboratory Plasma specimen [facility] DEPARTMENT OF PATHOLOGY AND GENOMIC MEDICINE [address] [place] [address] * XR Abdomen 1 Vw (01/14/2017 12:48 AM) Specimen Performing Laboratory [facility] [address] [place] [address] Narrative Examination:XR ABDOMEN 1 VW Clinical History: ABDOMINAL PAIN Comparison: None. Findings: Single frontal view the abdomen is obtained. Moderate fecal material is seen throughout the colon. No small bowel dilatation is seen. No free air is seen. IMPRESSION: 1. Nonspecific but nonobstructive bowel gas pattern with moderate fecal material throughout the colon. [id number] Procedure Note Interface, Radiology Results Incoming - 01/14/2017 12:55 AM CDT Examination: XR ABDOMEN 1 VW Clinical History: ABDOMINAL PAIN Comparison: None. Findings: Single frontal view the abdomen is obtained. Moderate fecal material is seen throughout the colon. No small bowel dilatation is seen. No free air is seen. IMPRESSION: 1. Nonspecific but nonobstructive bowel gas pattern with moderate fecal material throughout the colon. [id number] * Lactic acid, I-Stat (01/14/2017 12:19 AM) Component Value Ref Range Lactic acid, I-Stat 0.8 0.5 - 2.2 mmol/L Specimen Performing Laboratory Plasma specimen [facility] DEPARTMENT OF PATHOLOGY AND GENOMIC MEDICINE [address] [place] [address] * Blood culture, aerobic & anaerobic (01/14/2017 12:10 AM) Only the most recent of 2 results within the time period is included. Component Value Ref Range Blood culture isolate No growth after 5 days of incubation. Comment: Specimen Information Specimen Source: Blood Specimen Site: [id number]-R Specimen Performing Laboratory Blood - Jug[facility]Y AND [facility] [address] [place] [address] * Urinalysis (01/13/2017 11:40 PM) Only the most recent of 2 results within the time period is included. Component Value Ref Range Glucose, UA Negative Negative Bilirubin, UA Positive@UBIL (A) Negative Ketones, UA Negative Negative Specific gravity, UA 1.020 1.001 - 1.035 Blood, UA Large (A) Negative pH, UA 6.5 5.0 - 8.5 Protein, UA 2+ (A) Negative Urobilinogen, UA <2.0 <2.0 Nitrite, UA Negative Negative Leukocyte esterase, UA Negative Negative Color, UA Red Appearance, UA Cloudy Specimen Performing Laboratory [facility] DEPARTMENT OF PATHOLOGY AND GENOMIC MEDICINE, [address] [address] * Amylase level (09/28/2016 4:00 AM) Only the most recent of 3 results within the time period is included. Component Value Ref Range Amylase 12 (L) 13 - 73 U/L Specimen Performing Laboratory Plasma specimen [facility] DEPARTMENT OF PATHOLOGY AND GENOMIC MEDICINE [address] [place] [address] * Basic metabolic panel (09/28/2016 4:00 AM) Component Value Ref Range Sodium 136 135 - 148 mEq/L Potassium 4.2 3.5 - 5.0 mEq/L Chloride 102 98 - 112 mEq/L CO2 19 (L) 24 - 31 mEq/L Anion gap 15 7 - 15 mEq/L Comment: Starting from October , anion gap calculation no longer incorporates potassium. Please note the change. BUN 15 6 - 20 mg/dL Creatinine 0.5 0.5 - 0.9 mg/dL Glucose 125 (H) 65 - 99 mg/dL Calcium 8.6 8.3 - 10.2 mg/dL Specimen Performing Laboratory Plasma specimen [facility] DEPARTMENT OF PATHOLOGY AND GENOMIC MEDICINE [address] [place] [address] * Smear review (09/27/2016 6:00 PM) Component Value Ref Range Platelet slide review Irma adequate Ovalocytes Moderate Specimen Performing Laboratory [facility] DEPARTMENT OF PATHOLOGY AND GENOMIC MEDICINE [address] [place] [address] * CT Renal Stone Protocol (09/27/2016 4:20 AM) Specimen Performing Laboratory [facility] [address] [place] [address] Narrative Examination:CT RENAL STONE PROTOCOL Clinical History: Kidney Stone Comparison: None. Findings: CT scans are performed using radiation dose reduction techniques. Technical factors are evaluated and adjusted to ensure appropriate moderation of exposure.Automated dose management technology is applied to adjust radiation exposure while achieving a diagnostic quality image. CT scan of the abdomen and pelvis was performed without intravenous contrast. The liver, spleen, and adrenal glands are unremarkable. The patient is status post cholecystectomy. There is some mild indistinctness of the peripancreatic fat noted. Right intrarenal calculus measures up to 3 mm. Another adjacent right intrarenal calculus measures 3 mm. Left multiple intrarenal calculi measures up to 4 mm. No hydronephrosis or ureteral calculus is seen. Moderate fecal material seen throughout the colon. No bowel thickening or fat stranding is seen. The appendix is nonvisualized. No bowel dilatation is seen. No free air or fluid is seen. Urinary bladder is unremarkable. The visualized lung bases are clear. IMPRESSION: 1. Moderate fecal material throughout the colon but no evidence for bowel obstruction. 2. Bilateral nonobstructing intrarenal calculi. 3. Mild indistinctness of the peripancreatic fat which can be seen with pancreatitis. Clinical correlation is recommended. [facility]-[id number] Procedure Note Interface, Radiology Results Incoming - 09/27/2016 4:37 AM CDT Examination: CT RENAL STONE PROTOCOL Clinical History: Kidney Stone Comparison: None. Findings: CT scans are performed using radiation dose reduction techniques. Technical factors are evaluated and adjusted to ensure appropriate moderation of exposure. Automated dose management technology is applied to adjust radiation exposure while achieving a diagnostic quality image. CT scan of the abdomen and pelvis was performed without intravenous contrast. The liver, spleen, and adrenal glands are unremarkable. The patient is status post cholecystectomy. There is some mild indistinctness of the peripancreatic fat noted. Right intrarenal calculus measures up to 3 mm. Another adjacent right intrarenal calculus measures 3 mm. Left multiple intrarenal calculi measures up to 4 mm. No hydronephrosis or ureteral calculus is seen. Moderate fecal material seen throughout the colon. No bowel thickening or fat stranding is seen. The appendix is nonvisualized. No bowel dilatation is seen. No free air or fluid is seen. Urinary bladder is unremarkable. The visualized lung bases are clear. IMPRESSION: 1. Moderate fecal material throughout the colon but no evidence for bowel obstruction. 2. Bilateral nonobstructing intrarenal calculi. 3. Mild indistinctness of the peripancreatic fat which can be seen with pancreatitis. Clinical correlation is recommended. [facility]-[id number] after 08/29/2016 Insurance Payer Benefit Subscriber ID Type Phone Address Plan / Group [facility] xxxxxxxxx HMO/PPO THCARE CHOICE/CHO ICE + [facility] xxxxxxxxx HMO/PPO THCARE CHOICE/CHO ICE + [facility] xxxxxxxxx HMO/PPO THCARE CHOICE/CHO ICE +
--- NOTE | 2017-08-30 14:14 | Diagnostic Imaging Report ---
PROCEDURE:X-RAY RIGHT FOREARM, TWO VIEWS, PORTABLE COMPARISON:None. INDICATIONS:LACERATION OF WRIST FINDINGS: There are no fractures, dislocations, lytic or blastic lesions. The bones are well-mineralized. There is a laceration of the dorsum of the proximal forearm without associated radiopaque foreign body. A density in the ventral mid forearm measures 4 mm without overlying skin laceration. This is visible only on lateral projection. CONCLUSION: 1. No osseous injury. 2. No radiopaque foreign body in the dorsal forearm. 3. Potential foreign body in the ventral mid forearm. Please correlate for laceration in this region. Dictated by: Soni Hannah M.D. on 08/30/2017 at 14:13 Electronically approved by: Soni Hannah M.D. on 08/30/2017 at 14:13
[2017-08-30] MEDS ORDERED: BACITRACIN ZINC 0.9GM TP ONE ×2 (14:15→14:30)
== END 2017-08-30 14:41 | disposition left against medical advice (07) ==
LOC: ER 11:42
DX: Z48.01 Encounter for change or removal of surgical wound dressing (principal); E78.5 Hyperlipidemia, unspecified
CPT/HCPCS: 99283

== ENCOUNTER 2017-10-14 00:05 | Emergency (ER) | payer OTHER ==
[~2017-10-14] VITALS: Ht 152.4 cm; Wt 59.4 kg
--- OUTSIDE RECORDS SUMMARY | 2017-10-14 00:09 | XMS REPORT ---
Author Author [facility] Address Unknown Phone Unavailable Care Team Providers Care Rate Clerk Name Role Phone UNKNOWN, REFFERING PP Unavailable EMANUEL COPE Unavailable Unavailable IAN SIM Unavailable Unavailable Problems This patient has no known problems. Allergies, Adverse Reactions, Alerts This patient has no known allergies or adverse reactions. Medications This patient has no known medications. Encounters Start Date/Time End Date/Time Encounter Type Admission Type Attending Clinicians Care Facility Care Department Encounter ID 2017-09-27 03:56:00 2017-09-27 03:56:00 Emergency E [facility] MED [id number] 2017-09-12 14:35:00 2017-09-12 14:35:00 Outpatient C EMANUEL COPE M.D. [facility] MED [id number] Results Test Description Test Time Test Comments Text Results Atomic Results Result Comments Culture, Wound Surgical 2017-10-03 15:24:00 Specimen/Source: Wound/LEFT ARMCollected: 09/26/2017 17:29 Status: Final Last Updated: 10/03/2017 15: 24 Gram Stain (Final) (Final) 09/27/17 Many White blood cells seen, Rare epithelial cells, Noorganisms seen Culture Result (Final) (Final) Aerobic culture: pending. 09/27/17 Anaerobic culture: pending. Aerobic culture: No Growth 1 day 09/28/17 Anaerobic culture: pending. Aerobic culture: No growth after 2 days 09/29/17 Anaerobic culture: No anaerobes isolated to date, continuing incubation 09/30/17 Aerobic culture : No growth after 3 days 09/30/17 Anaerobic culture: No anaerobes isolated to date, continuing incubation 10/01/17 Aerobic culture: No growth after 4 days 10/01/17 Anaerobic culture: No anaerobes isolated to date, continuing incubation 10/02/17 Aerobic culture: No growth after 5 days 10/02/17 Anaerobic culture: No anaerobes isolated \S\Performed at [facility] [place] \S\[address] \S\[place] [address] \S\ \S\ Catering Truck Driver: Alfreda Willis M.D. \S\CLIA:[id number] Result before changed by YANG on 10/03/2017 15:24: Culture Result (Final) (Final) 09/27 Aerobic culture: pending. 09/27/17 Anaerobic culture: pending. 09/28/17 Aerobic culture: No Growth 1 day 09/28/17 Anaerobic culture: pending. Aerobic culture: No growth after 2 days 09/29/17 Anaerobic culture: No anaerobes isolated to date, continuing incubation 09/30/17 Aerobic culture : No growth after 3 days 09/30/17 Anaerobic culture: No anaerobes isolated to date, continuing incubation 10/01/17 Aerobic culture: No growth after 4 days 10/01/17 Anaerobic culture: No anaerobes isolated to date, continuing incubation 10/02/17 Aerobic culture: No growth after 5 days 10/02/17 Anaerobic culture: No anaerobes isolated \S\Performed at [facility] \S\[facility] \S\[address] [facility] [id number] \S\ \S\Dir: Paulie Stevenson MD [facility] [place], Urine, Qualitative 2017-09-26 16:39:00 Preg Qual [Ur] (test code=HUHCG) Negative Negative Culture, Wound [id number] 15:16:00Specimen/Source: Tissue/RIGHT FOREARMCollected: 09/06/2017 16:09 Status: Final Last Updated: 09/14/2017 15:16 Gram Stain (Final) (Final) 09/07/17 Moderate White blood cells seen, No epithelial cells seen, No organisms seen Culture Result (Final) ( Final) 09/07/17 Aerobic culture: pending 09/07/17 Anaerobic culture: pending 09/08/17 Aerobic culture: Scant growth of Staphylococcus aureus, susceptibility test report to follow 09/08/17 Anaerobic culture: pending 09/10 No anaerobes isolated to date, continuing incubation 09/10/17 S. aureus Amox/Clavunate Sensitive <4/2 Amp/Sulbactam Sensitive <8/4 Ciprofloxacin Sensitive <1 Clindamycin Resistant >4 Doxycycline Sensitive Erythromycin Resistant >4 Gentamicin Resistant >8 Levofloxacin Sensitive < 1 Moxifloxacin Sensitive <=0.5 Oxacillin Sensitive <0.25 Tetracycline Sensitive <4 Trimethoprim/Sulfa Sensitive <0.5/9.5 Vancomycin Sensitive 2 Note: Oxacillin-susceptible stpahylococci are susceptible to other pencillinase-stable penicillins (e.g. Methillicin, Nafcillin), beta lactam/ beta-lactamase inhibitor combinations, and cephems with cephems with staphylococcal indications, including Cefazolin. 09/11/17 Anaerobic culture: No anaerobes isolated to date, continuing incubation 09/12/17 No anaerobes isolated. Performed at [facility] [address] [address] Catering Truck Driver: Alfreda Willis M.D. CLIA: [id number] Culture, Wound [id number] 15:21:00Specimen/Source: Wound/ RIGHT FOREARMCollected: 09/06/2017 16:09 Status: Final Last Updated: 2017 15:21 Gram Stain (Final) (Final) 09/07/17 Few White blood cells seen, Rare epithelial cells, Noorganisms seen Culture Result (Final) (Final ) 09/07/17 Aerobic culture: pending 09/07/17 Anaerobic culture: pending 09/08 Aerobic culture: No growth after 1 day 09/08/17 Anaerobic culture: pending 09/09/17 Aerobic culture: No growth after 2 days 09/10/17 Anaerobic culture: No anaerobes isolated to date, continuing incubation 09/10/17 Aerobic culture: Scant growth Staphylococcus aureus: Amox/Clavulanate (Susceptible) < 4/2 Amp/Sulbactam (Susceptible) <8/4 Ciprofloxacin (Susceptible) <1 Clindamycin (Resistant) >4 Doxycycline (Susceptible) Erthyromycin ( Resistant) >4 Gentamicin (Susceptible) <4 Levofloxacin (Susceptible) <1 Moxifloxacin (Susceptible) <=0.5 Oxacillin (Susceptible) <0.25 (Note: Oxacillin-susceptiblestaphylococci are susceptible to other penicillinase- stable penicillins (e.g. Methicllin, Nafcillin), beta-lactam/beta-lactamase inhibitor combinations, and cephems with staphylococcal indications, including Cefazolin. Tetraycycline (Susceptible) <4 Trimethoprim/Sulfa (Susceptible) <=0.5/9.5 Vancomycin (Susceptible) 1 09/11/17 Anaerobic culture: No anaerobes isolated to date, continuing incubation 09/12/17 No anaerobes isolated. Performed at [facility] [address] [address] Catering Truck Driver: Alfreda Willis M.D. CLIA:[id number] [facility], Urine, [id number] 15:53:00* Test Item Value Reference Range Comments Preg Qual [Ur] (test code=HUHCG) Negative Negative FOREARM RIGHT 2 VIEW [place] [address] Patient Name: BELIA VIGIL MR #: [id number] : 1980 Age/Sex: 36/F Req # : [id number] Adm Physician: Ordered by: KYM DWYER VP [employer] Report #: [id number] Location: ER Room/Bed: Procedure: [id number] DX/FOREARM RIGHT 2 VIEW Exam Date: 08/30/17 Exam Time: 1345 REPORT STATUS: Signed PROCEDURE: X-RAY RIGHT FOREARM , TWO VIEWS, PORTABLE COMPARISON: None. INDICATIONS: LACERATION OF WRIST FINDINGS: There are no fractures, dislocations, lytic or blastic lesions. The bones are well-mineralized. There is a laceration of the dorsum of the proximal forearm without associated radiopaque foreign body. A density in the ventral mid forearm measures 4 mm without overlying skin laceration. This is visible only on lateral projection. CONCLUSION: 1. No osseous injury. 2. No radiopaque foreign body in the dorsal forearm. 3. Potential foreign body in the ventral mid forearm. Please correlate for laceration in this region. Dictated by: Kilo Hannah M.D. on 08/30/2017 at 14:13 Electronically approved by: Kilo Hannah M.D. on 08/30/2017 at 14:13 Dictated By: KILO HANNAH MD 1413 Transcribed By: KALINA on 08/30/17 1413 COPY TO: KYM DWYER NP
--- OUTSIDE RECORDS SUMMARY | 2017-10-14 00:09 | XMS REPORT | Clinical Summary ---
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 10/13/2016 Social History Tobacco Use Types Packs/Day Years Used Date Never Smoker Smokeless Tobacco: Never Used Alcohol Use Drinks/Week oz/Week Comments No Sex Assigned at Date Recorded Not on file Last Filed Vital Signs Vital Sign Reading Time Taken Blood Pressure 119/69 08/28/2017 11:51 PM SANITATION LEAD Pulse 127 08/28/2017 11:51 PM SANITATION LEAD Temperature 35.7 C (96.2 F) 08/28/2017 11:51 PM SANITATION LEAD Respiratory Rate 16 08/28/2017 11:51 PM SANITATION LEAD Oxygen Saturation 99% 08/28/2017 11:51 PM SANITATION LEAD Inhaled Oxygen - - Concentration Weight 67.6 kg (149 lb) 08/28/2017 2:38 PM SANITATION LEAD Height 152.4 cm (5') 08/28/2017 2:38 PM SANITATION LEAD Body Mass Index 29.1 08/28/2017 2:38 PM SANITATION LEAD Plan of Treatment Health Maintenance Due Date Last Done Comments PAP SMEAR 12/18/2000 INFLUENZA VACCINE 02/07/2018 Implants Implanted Type Area Oyster Unloader Device Expiration Model / Identifier Date Serial / Lot Bladder Sling Breast Implant-01/14/2009 Implanted: 01/14/2009 (Quantity not on file) Results * Estimated GFR (08/28/2017 6:02 PM) Only the most recent of 3 results [...] and Americans. Specimen Performing Laboratory Plasma specimen [facility] DEPARTMENT OF PATHOLOGY AND GENOMIC MEDICINE [address] [place] [address] * CBC with platelet and differential (08/28/2017 6:02 PM) Only the most recent of 3 results [...] (promyelocytes, myelocytes, metamyelocytes) Specimen Performing Laboratory Blood [facility] DEPARTMENT OF PATHOLOGY AND GENOMIC MEDICINE [address] [place] [address] * Comprehensive metabolic panel (08/28/2017 6:02 PM) Only the most recent of 3 results [...] Protein 7.8 6.3 - 8.3 g/dL Comment: 4.6-7.0 g/dL 1 week 4.4-7.6 g/dL 7 [...] 1.2 mg/dL Specimen Performing Laboratory Plasma specimen [facility] DEPARTMENT OF PATHOLOGY AND GENOMIC MEDICINE [address] [place] [address] * XR Forearm 2 Vw Right (08/28/2017 5:17 PM) Only the most recent of 2 results within the time period is included. Specimen Performing Laboratory [facility] [address] [place] [address] Narrative EXAMINATION:XR FOREARM 2 VW RIGHT CLINICAL HISTORY:s p wound cleaning. re evaluate for FB COMPARISON:None. IMPRESSION: There is some subcutaneous air adjacent to the distal radius. No metallic foreign body is noted. [id number] Procedure Note Hm Interface, Radiology Results Incoming - 08/28/2017 5:48 PM SANITATION LEAD EXAMINATION: XR FOREARM 2 VW RIGHT CLINICAL HISTORY: s p wound cleaning. re evaluate for FB COMPARISON: None. IMPRESSION: There is some subcutaneous air adjacent to the distal radius. No metallic foreign body is noted. [id number] * Urinalysis screen and microscopy, with reflex [...] None seen UA Specimen Performing Laboratory Urine [facility] DEPARTMENT OF PATHOLOGY AND [facility] [address] [place] [address] * Gram stain (04/08/2017 1:43 PM) Only the most recent of 2 results within the time period is included. Component Value Ref Range Gram stain result Few WBC's Many Gram negative rods Comment: Specimen Information Specimen Source: Urine Specimen Site: See UA Specimen Performing Laboratory Urine [facility] DEPARTMENT OF PATHOLOGY AND [facility] [address] [place] [address] * Urine culture (04/08/2017 1:43 PM) Only the most recent of 2 results within the time period is included. Component Value Ref Range Urine culture isolate Escherichia coli >10-5 cfu/ml (A) Comment: Specimen Information Specimen Source: Urine Specimen Site: See UA Specimen Performing Laboratory Urine [facility] DEPARTMENT OF PATHOLOGY AND [address] [address] Organism Antibiotic Method Susceptibility Escherichia coli Ampicillin [...] urine is >/=20mIU/ml. Specimen Performing Laboratory Urine [facility] DEPARTMENT OF PATHOLOGY AND GENOMIC MEDICINE [address] [place] [address] * PV duplex venous upper extremity (01/14/2017 8:40 AM) Specimen Performing Laboratory [facility] [address] [place] [address] Narrative Vascular Ultrasound Laboratory Upper Extremity Venous Report [address]Name:Usha RIVAS.ID:[id number] .Date: 01/14/2017Refer.MD:BAILEY GRAHAM MD. Exam Time: 8:11:00 AMStudy Type:UE Venous DOBAge:1980,36Y Sex: FEMALE Sonogrphr: Oscar Caceres, RVSPat. Stat.:Inpatient TapeVol: FE, CPT - 4: 65846 Echo Event ID:[id number] Order ID:[id number] Reason for Study:Right arm pain and redness; [...] Vascular Ultrasound Laboratory Upper Extremity Venous Report [address] [place] [address] Pat.Name: [place] RIVAS Pat.ID: [id number] .Date: 01/14/2017 Refer.MD: BAILEY GRAHAM MD. Exam Time: 8:11:00 AM Study Type:UE Venous Age: 5 1980,36Y Sex: FEMALE Sonogrphr: DARIN Navarrete Pat. Stat.:Inpatient Tape Vol: FE, CPT - 4: 60425 Echo Event ID:[id number] Order ID: [id number] Reason for Study:Right arm pain and redness; [...] Anti-Xa 0.3-0.7 U/ml. Specimen Performing Laboratory Blood [facility] DEPARTMENT OF PATHOLOGY AND [address] [address] * Sedimentation rate (01/14/2017 5:00 AM) Component Value Ref Range Sedimentation rate 19 0 - 20 mm/hr Specimen Performing Laboratory Blood [facility] DEPARTMENT OF PATHOLOGY AND [facility] [address] [place] [address] * Prothrombin time with INR (01/14/2017 5:00 AM) Component Value Ref Range Prothrombin time 13.7 12.0 - 15.0 sec INR 1.0 Comment: The International Normalized Ratio (INR) is a therapeutic monitoring tool for patients who are stable on oral anticoagulant therapy. An INR of 2.0-3.0 is suggested for deep vein thrombosis/pulmonary embolism. Specimen Performing Laboratory Blood [facility] DEPARTMENT OF PATHOLOGY AND [facility] [address] [place] [address] * Troponin (01/14/2017 4:00 AM) Component Value [...] myocardial injury. Specimen Performing Laboratory Plasma specimen [facility] DEPARTMENT OF PATHOLOGY AND [facility] [address] [place] [address] * C-reactive protein (01/14/2017 4:00 AM) Component Value Ref Range CRP <0.30 0.00 - 0.50 mg/dL Specimen Performing Laboratory Plasma specimen [facility] DEPARTMENT OF PATHOLOGY AND [facility] [address] [place] [address] * Thyroid stimulating hormone (01/14/2017 4:00 AM) Component Value Ref Range TSH 3.11 0.27 - 4.20 uIU/mL Specimen Performing Laboratory Plasma specimen [facility] DEPARTMENT OF PATHOLOGY AND GENOMIC MEDICINE [address] [place] [address] * Magnesium level (01/14/2017 4:00 AM) Component Value Ref Range Magnesium 1.7 1.6 - 2.6 mg/dL Specimen Performing Laboratory Plasma specimen [facility] DEPARTMENT OF PATHOLOGY AND GENOMIC MEDICINE [address] [place] [address] * Lipase level (01/14/2017 4:00 AM) Component Value Ref Range Lipase 36 13 - 60 U/L Specimen Performing Laboratory Plasma specimen [facility] DEPARTMENT OF PATHOLOGY AND GENOMIC MEDICINE [address] [place] [address] * XR Abdomen 1 Vw (01/14/2017 12:48 AM) Specimen Performing Laboratory [facility] [address] [place] [address] Narrative Examination:XR ABDOMEN 1 VW Clinical History: ABDOMINAL PAIN Comparison: None. Findings: Single frontal view the abdomen is obtained. Moderate fecal material is seen throughout the colon. No small bowel dilatation is seen. No free air is seen. IMPRESSION: 1. Nonspecific but nonobstructive bowel gas pattern with moderate fecal material throughout the colon. [facility]-[id number] Procedure Note Interface, Radiology Results Incoming - [...] with moderate fecal material throughout the colon. [facility]-[id number] * Lactic acid, I-Stat (01/14/2017 12:19 AM) Component Value Ref Range Lactic acid, I-Stat 0.8 0.5 - 2.2 mmol/L Specimen Performing Laboratory Plasma specimen [facility] DEPARTMENT OF PATHOLOGY AND GENOMIC MEDICINE [address] [place] [address] * Blood culture, aerobic & anaerobic (01/14/2017 12:10 AM) Only the most recent of 2 results within the time period is included. Component Value Ref Range Blood culture isolate No growth after 5 days of incubation. Comment: Specimen Information Specimen Source: Blood Specimen Site: Jugular-R Specimen Performing Laboratory Blood - Jugular [facility] DEPARTMENT OF PATHOLOGY AND GENOMIC MEDICINE [address] [place] [address] * Urinalysis (01/13/2017 11:40 PM) Component Value Ref Range Glucose, UA Negative [...] Urine DEPARTMENT OF PATHOLOGY AND GENOMIC MEDICINE, [address] [address] after 10/13/2016 Insurance Payer Benefit Subscriber ID Type Phone Address Plan / Group [facility] xxxxxxxxx HMO/PPO THCARE CHOICE/CHO ICE + [facility] xxxxxxxxx HMO/PPO THCARE CHOICE/CHO ICE + [facility] xxxxxxxxx HMO/PPO THCARE CHOICE/CHO ICE +
--- OUTSIDE RECORDS SUMMARY | 2017-10-14 00:09 | XMS REPORT | Continuity of Care Document ---
Author Author [facility] Organization [facility] Address [address] [place] [address] Phone Unavailable Care Team Providers Care Disaster Recovery Consultant Name Role Phone DASHA PEDROZA MD PCP Insurance Providers Guarantor Belia Rivas Address [address] [place] [address] Email @[employer] [facility] Policy Number [id number] Subscriber's Name Turner Rivas Relationship 01 Group Number [id number] Group Name [employer] Effective Date 17 Advance Directives Directive Response Recorded Date/Time Does the patient have an advance directive? No 01/06/17 8:00pm If yes, is advance directive on file with [facility]? No 10/26/16 6:07pm If not on file with [facility] will patient provide a copy? No 11/11/16 9:51pm Do you have a Directive to Physician? No 08/30/17 1:05pm Do you have a Medical Power of Gasoline Locomotive Crane Operator? No 08/30/17 1:05pm Do you have an out of hospital Do Not Resuscitate Order? No 08/30/17 1:05pm Do you have any special needs we should be aware of? No 08/30/17 1:05pm Do you have a support person here with you today? No 08/30/17 1:05pm Did patient receive Notice of Privacy Practices? Yes 08/30/17 1:05pm Did patient receive patient rights and responsibilities? Yes 08/30/17 1:05pm Problems Medical Problem Onset Date Status Kidney [...] Medications Medication Directions Ordered Status Acetaminophen/Hydrocodone Bitart ([place] 10MG-325MG*) 1 Ea Tab, 1 Tab Oral [...] information available. Plan of Care Discharge Date 08/30/17 2:41pm Disposition AGAINST MEDICAL ADVICE Condition at Discharge Stable Forms Provided Work/School Excuse Prescriptions See Medication Section Functional Status No functional status information available. Allergies, Adverse Reactions, Alerts Allergen Type Severity Reaction Status Last Updated dexamethasone sod phosphate Allergy Intermediate RASH Active 08/30/17 iodine Allergy Intermediate hives Active 08/30/17 Morphine Allergy Mild Active 08/30/17 Dexamethasone Allergy Intermediate RASH Active 08/30/17 Fentanyl Allergy Mild Active 08/30/17 Tramadol Allergy Mild Hives, chest pressure Active 08/30/17 Butorphanol Allergy Mild Active 08/30/17 Ondansetron Adverse Reaction Mild ELEVATES BP Active 08/30/17 Ketorolac Allergy Mild Active 08/30/17 TEGADERM Allergy Mild redness, skin irritation Active 10/31/15 Immunizations No immunization information available. Vital Signs Acute Vital Signs Vital Response Date/Time Temperature (Fahrenheit) 97.5 degrees F (97.6 - 99.5) 04/07/2017 2:28am Pulse Pulse Rate (adult) 68 bpm (60 - 90) 04/07/2017 2:28am Respiratory Rate 18 bpm (12 - 24) 08/30/2017 2:40pm Blood Pressure 131/88 mm Hg 04/07/2017 2:28am Height 5 ft 0 in 08/30/2017 11:55am Weight 143 lb 08/30/2017 11:55am Body Mass Index 27.9 kg/m^2 08/30/2017 11:55am Results Laboratory Results Test Name Result Units [...] Total Creatine Kinase 139 U/L 24-173 01/11/2017 7:11am 01/14/2017 12: 38pm Macro Creatine Kinase Type II 0 % Not Observed 01/11/2017 7:11am 2016 12:38pm Creatine Kinase MM 100 % 97-100 01/11/2017 7:11am 01/14/2017 12:38pm Creatine Kinase BB 0 % 0 01/11/2017 7:11am 01/14/2017 12:38pm Performed at: - [address] [id number] Parking Inspector: Paulie Stevenson MD, Phone: [phone] Performed at: - [facility] [id number] Parking Inspector: MADISYN Garcia MD, Phone: [phone] Macro Creatine Kinase Type I 0 % [...] CLEAR 04/07/2017 12:39am 04/07/2017 12:42am Urine Specific Hana 1.020 1.010-1.025 04/07/2017 12:39am 2016 12:42am Urine [...] HYDE MD CYSTOURETERO W/STONE REMOVE Completed 06/23/17 SMITA BRUNO MD MRI upper extremity w/o dye Active 01/09/17 AL HYDE MD MRI non-joint region of extremity upper wo contrast Active 01/09/17 AL HYDE MD Encounters Encounter Location Arrival/Admit Date Discharge/Depart Date Attending Provider Departed Emergency [facility] 08/30/17 11:42am 08/30 2:41pm IAN SIM MD Departed Emergency [facility] 08/27/17 3:12am 3:40am IMMANUEL POLLOCK MD Registered Emergency [facility] 08/27/17 3:00am IMMANUEL POLLOCK MD Registered Emergency [facility] 08/27/17 2:16am IMMANUEL POLLOCK MD Registered Surgical Day Care [facility] 06/23/17 8:39am SMITA BRUNO MD Departed Emergency [facility] 04/07/17 12:10am 04/07 2:44am AYDEN COLLADO MD Departed Emergency [facility] 04/06/17 4:12pm 7:40pm AYDEN COLLADO MD Departed Emergency [facility] 01/21/17 2:13am 6:02am AYDEN COLLADO MD Departed Emergency [facility] 01/20/17 3:42pm 10:58pm AYDEN COLLADO MD Discharged Inpatient [facility] 01/08/17 9:00am 01/11/17 11:09pm AL HYDE MD Departed Emergency [facility] 11/11/16 7:03pm 10:11pm IMMANUEL RANKIN MD
[2017-10-14] MEDS ORDERED: XANAX2 MG PO (00:53)
[2017-10-14] MEDS ORDERED: SODIUM CHLORIDE 0.9% 1000ML 1,000 ML IV STA (01:11)
[2017-10-14 02:17] LABS: AMYLASE 41 U/L (25-125); LIPASE 6 U/L (8-78)
[2017-10-14 02:19] LABS: ACETAMINOPHEN < 3 ug/mL (10-30); SALICYLATE < 5.0 mg/dL (0-30)
== END 2017-10-14 03:50 | disposition home or self-care (01) ==
LOC: FSED 00:05
PROC: 0HQ7XZZ Repair Abdomen Skin, External Approach (ICD-10-PCS; principal; 2017-10-14)
DX: S31.119A Laceration without foreign body of abdominal wall, unspecified quadrant without penetration into peritoneal cavity, initial encounter (principal); S70.311A Abrasion, right thigh, initial encounter; W01.0XXA Fall on same level from slipping, tripping and stumbling without subsequent striking against object, initial encounter; Y92.008 Other place in unspecified non-institutional (private) residence as the place of occurrence of the external cause; F13.129 Sedative, hypnotic or anxiolytic abuse with intoxication, unspecified; F11.129 Opioid abuse with intoxication, unspecified
CPT/HCPCS: 12001; 36415; 70450; 74176; 80053; 80307; 80320; 80329 ×2; 81003; 82140; 82150; 82553; 83690; 84484; 85025; 93005; 99284; J7030

== ENCOUNTER 2017-12-06 00:04 | Emergency (ER) | payer OTHER ==
[~2017-12-06] VITALS: Ht 154.9 cm; Wt 67.1 kg
[~2017-12-06 00:04] MED LIST changes: +XANAX2 MG PO
--- OUTSIDE RECORDS SUMMARY | 2017-12-06 00:08 | XMS REPORT | Clinical Summary ---
Author Author [facility] Address Unknown Phone Unavailable Care Team Providers Care Chemical Sprayer Name Role Phone Asked, Pcp PCP Unavailable [...] 2 Active tablet (two) times a day. promethazine (PHENERGAN) Take 25 mg by mouth every Active 25 MG tablet 6 (six) hours as needed for nausea or vomiting. eszopiclone (LUNESTA) 2 Take 2 mg by mouth 08/22/19 Active MG tablet nightly. 18 buPROPion XL (WELLBUTRIN Take 300 mg by mouth 08/03/19 Active XL) 300 MG 24 hr tablet every morning. 18 sulfamethoxazole-trimetho Take 1 tablet by mouth 2 Active prim (BACTRIM DS) 800-160 (two) times a day. mg per tablet hydromorPHONE (DILAUDID) Take 8 mg by mouth every 10/15/19 Discontin 8 MG tablet 4 (four) hours as needed 18 ued for moderate pain. HYDROcodone-acetaminophen Take 1 tablet by mouth 08/28/19 Discontin (NORCO) 10-325 mg per every 8 (eight) hours as 18 ued tablet needed for moderate pain (breakthrough pain). diazePAM (VALIUM) 5 MG Take 5 mg by mouth every 08/28/19 Discontin tablet 12 (twelve) hours as 18 ued needed for muscle spasms. fluconazole (DIFLUCAN) Take 200 mg by mouth 10/15/19 Discontin 200 MG tablet daily as needed. For 18 ued prophylaxis buprenorphine (BUTRANS) Place 10 mcg on the skin 08/28/19 Discontin 10 mcg/hour patch weekly as needed (pain). 18 ued carisoprodol (SOMA) 350 Take 350 mg by mouth 3 10/15/19 Discontin MG tablet (three) times a day as 18 ued needed for muscle spasms. zolpidem CR (AMBIEN CR) Take 12.5 [...] mouth daily for 17 17 5 days. acetaminophen-codeine Take 1 tablet by mouth 08/24/19 10/15/19 Discontin (TYLENOL WITH CODEINE #3) every 4 (four) hours as 18 18 ued 300-30 mg per tablet needed. cephalexin (KEFLEX) 500 Take 500 mg by mouth 2 08/24/19 10/15/19 Discontin MG capsule (two) times a day. 18 18 ued amoxicillin-pot Take 1 tablet by mouth 2 14 tablet 0 10/15/19 clavulanate (AUGMENTIN) (two) times a day for 7 18 18 875-125 mg per tablet days. Active Problems Problem Noted Date Foreign body left in wound 08/28/2017 DVT (deep venous thrombosis) 01/16/2017 Chronic UTI 01/14/2017 Idiopathic acute pancreatitis without infection or necrosis 09/27/2016 Idiopathic pancreatitis 09/27/2016 Acute cystitis 07/15/2016 Renal stones 07/14/2016 Encounters Date Type Specialty Care Team Description 10/14/2017 Emergency Emergency Medicine Evelin Perez, Acute UTI (Primary Dx); PA-C Chronic abdominal pain Gray Ha MD 08/28/2017 Emergency General Internal Medicine Camilo Oneil MD Foreign body left in - Al-Martir Sears MD wound (Primary Dx) 08/29/2017 04/08/2017 Emergency Emergency Medicine Robin French DO Urinary tract infection associated with indwelling urethral [...] fever cause; 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 12/05/2016 Social History Tobacco Use Types Packs/Day Years Used Date Never Smoker Smokeless Tobacco: Never Used Alcohol Use Drinks/Week oz/Week Comments No Sex Assigned at Date Recorded Not on file Last Filed Vital Signs Vital Sign Reading Time Taken Blood Pressure 118/97 10/14/2017 1:39 PM CDT Pulse 75 10/14/2017 1:39 PM CDT Temperature 36.8 C (98.3 F) 10/14/2017 10:33 AM CDT Respiratory Rate 15 10/14/2017 1:39 PM CDT Oxygen Saturation 99% 10/14/2017 1:39 PM CDT Inhaled Oxygen - - Concentration Weight 67.1 kg (148 lb) 10/14/2017 10:33 AM CDT Height 152.4 cm (5') 10/14/2017 10:33 AM CDT Body Mass Index 28.9 10/14/2017 10:33 AM CDT Plan of Treatment Health Maintenance Due Date Last Done Comments CERVICAL CANCER SCREENING 12/18/2000 INFLUENZA VACCINE 02/07/2018 Implants Implanted Type Area Migration Specialist Device Expiration Model / Identifier Date Serial / Lot Bladder Sling Breast Implant-01/14/2009 Implanted: 01/14/2009 (Quantity not on file) Results * CBC with platelet and differential (10/14/2017 12:46 PM) Only the most recent of 4 results within the time period is included. Component Value Ref Range WBC 5.31 4.50 - 11.00 k/uL RBC 3.98 (L) 4.20 - 5.50 m/uL HGB 10.1 (L) 12.0 - 16.0 g/dL HCT 32.3 (L) 37.0 - 47.0 % MCV 81.2 (L) 82.0 - 100.0 fL MCH 25.4 (L) 27.0 - 34.0 pg MCHC 31.3 31.0 - 37.0 g/dL RDW - SD 46.5 37.0 - 55.0 fL MPV 10.1 8.8 - 13.2 fL Platelet count 244 150 - 400 k/uL Nucleated RBC 0.00 /100 WBC Neutrophils 41.5 39.0 - 69.0 % Lymphocytes 37.7 25.0 - 45.0 % Monocytes 11.3 (H) 0.0 - 10.0 % Eosinophils 8.9 (H) 0.0 - 5.0 % Basophils 0.4 0.0 - 1.0 % Specimen Performing Laboratory [facility] DEPARTMENT OF PATHOLOGY AND GENOMIC MEDICINE [id number] [place] [address] [place] [address] * Estimated GFR (10/14/2017 11:37 AM) Only the most recent of 4 results within the time period is included. Component Value Ref Range GFR Non Af Amer 80 mL/min/1.73 m2 GFR Af Amer >90 mL/min/1.73 m2 Comment: Chronic kidney disease: <60 [...] and Americans. Specimen Performing Laboratory Plasma specimen [facility] DEPARTMENT OF PATHOLOGY AND GENOMIC MEDICINE [address] [place] [address] * Lipase level (10/14/2017 11:37 AM) Only the most recent of 2 results within the time period is included. Component Value Ref Range Lipase 21 13 - 60 U/L Specimen Performing Laboratory Plasma specimen [facility] DEPARTMENT OF PATHOLOGY AND [facility] [address] [place] [address] * Amylase level (10/14/2017 11:37 AM) Component Value Ref Range Amylase 45 13 - 73 U/L Specimen Performing Laboratory Plasma specimen [facility] DEPARTMENT OF PATHOLOGY AND [facility] [address] [place] [address] * Comprehensive metabolic panel (10/14/2017 11:37 AM) Only the most recent of 4 results within the time period is included. Component Value Ref Range Sodium 140 135 - 148 mEq/L Potassium 4.1 3.5 - 5.0 mEq/L Chloride 105 98 - 112 mEq/L CO2 21 (L) 24 - 31 mEq/L Anion gap 14 7 - 15 mEq/L Comment: Starting from October , anion gap calculation no longer incorporates potassium. Please note the change. BUN 16 6 - 20 mg/dL Creatinine 0.8 0.5 - 0.9 mg/dL Glucose 121 (H) 65 - 99 mg/dL Calcium 9.1 8.3 - 10.2 mg/dL Protein 7.1 6.3 - 8.3 g/dL Comment: 4.6-7.0 g/dL 1 week 4.4-7.6 g/dL 7 months-1year 5.1-7.3 g/dL 1-2 years 5.6-7.5 g/dL >3 years 6.0-8.0 g/dL 18-150 6.3-8.3 g/dL Albumin 4.1 3.5 - 5.0 g/dL A/G ratio 1.4 0.7 - 3.8 Alkaline phosphatase 99 35 - 104 U/L AST 34 10 - 35 U/L ALT 22 5 - 50 U/L Total bilirubin <0.2 0.0 - 1.2 mg/dL Specimen Performing Laboratory Plasma specimen [facility] DEPARTMENT PATHOLOGY AND [facility] [address] [place] [address] * Urinalysis screen and microscopy, with reflex to culture (10/14/2017 11:20 AM) Only the most recent of 3 results within the time period is included. Component Value Ref Range Specimen site Clean catch Color, UA Yellow Appearance, UA Slightly-Cloudy Specific gravity, UA 1.015 1.001 - 1.035 pH, UA 6.0 5.0 - 8.5 Protein, UA Negative Negative Glucose, UA Negative Negative Ketones, UA Negative Negative Bilirubin, UA Negative Negative Blood, UA Negative Negative Nitrite, UA Positive (A) Negative Urobilinogen, UA Negative <2.0 Leukocyte esterase, UA Small (A) Negative Epithelial cells, UA Many /HPF Round epithelial cells, Few 0 - 1 /HPF UA WBC, UA 11-20 (H) 0 - 4 /HPF RBC, UA 0-5 0 - 5 /HPF Bacteria, UA Trace None seen Yeast, UA None seen Yeast with pseudohyphae, None seen UA Specimen Performing Laboratory Urine [facility] DEPARTMENT OF PATHOLOGY AND GENOMIC MEDICINE [address] [place] [address] * Gram stain (10/14/2017 11:20 AM) Only the most recent of 3 results within the time period is included. Component Value Ref Range Gram stain result Few WBC's Moderate Gram positive rods Many Gram negative rods Comment: Specimen Information Specimen Source: Urine Specimen Site: Clean catch Specimen Performing Laboratory Urine [facility] DEPARTMENT OF PATHOLOGY AND GENOMIC MEDICINE [address] [place] [address] * Urine culture (10/14/2017 11:20 AM) Only the most recent of 3 results within the time period is included. Component Value Ref Range Urine culture isolate Escherichia coli >10-5 cfu/ml The performance characteristics of this assay on this isolate were validated by the Microbiology Laboratory at [facility]. This source has not been approved by the U.S. Food and Drug Administration. The results are not intended to be used as the sole means for clinical diagnosis or patient management. The Microbiology Laboratory is authorized under the clinical Laboratory Improvement Amendments of 1988 (CLIA-88) to perform high complexity testing. (A) Comment: Specimen Information Specimen Source: Urine Specimen Site: Clean catch Specimen Performing Laboratory Urine [facility] DEPARTMENT OF PATHOLOGY AND GENOMIC MEDICINE [address] [place] [address] Organism Antibiotic Method Susceptibility Escherichia coli Ampicillin EFE >16 mcg/mL: Resistant Escherichia coli Amoxicillin/Clavulanate EFE 8/4 mcg/mL: Susceptible Escherichia coli Amikacin EFE <=4 mcg/mL: Susceptible Escherichia coli Aztreonam EFE <=1 mcg/mL: Susceptible Escherichia coli Ceftazidime EFE <=0.5 mcg/mL: Susceptible Escherichia coli Ciprofloxacin EFE >2 mcg/mL: Resistant Escherichia coli Ceftriaxone EFE <=0.5 mcg/mL: Susceptible Escherichia coli Cefuroxime Sodium EFE <=4 mcg/mL: Susceptible Escherichia coli Cefazolin EFE 2 mcg/mL: Susceptible Escherichia coli Cefipime EFE <=0.5 mcg/mL: Susceptible Escherichia coli Nitrofurantoin EFE <=16 mcg/mL: Susceptible Escherichia coli Cefoxitin FEE <=4 mcg/mL: Susceptible Escherichia coli Gentamicin EFE <=1 mcg/mL: Susceptible Escherichia coli Imipenem EFE <=0.25 mcg/mL: Susceptible Escherichia coli Levofloxacin EFE >4 mcg/mL: Resistant Escherichia coli Meropenem EFE <=0.125 mcg/mL: Susceptible Escherichia coli Tobramycin EFE 1 mcg/mL: Susceptible Escherichia coli Ampicillin/Sulbactam EFE 16/8 mcg/mL: Resistant Escherichia coli Trimethoprim/Sulfamethoxa EFE >2/38 mcg/mL: Resistant zole Escherichia coli Tetracycline EFE >8 mcg/mL: Resistant Escherichia coli Piperacillin/Tazobactam EFE <=2/4 mcg/mL: Susceptible Escherichia coli Ertapenem EFE <=0.125 mcg/mL: Susceptible Escherichia coli Tigecycline EFE <=0.5 mcg/mL: Susceptible * XR Forearm 2 Vw Right (08/28/2017 5:17 PM) Only the most recent of 2 results within the time period is included. Specimen Performing Laboratory [facility] [address] [place] [address] Narrative EXAMINATION:XR FOREARM 2 VW RIGHT CLINICAL HISTORY:s p wound cleaning. re evaluate for FB COMPARISON:None. IMPRESSION: There is some subcutaneous air adjacent to the distal radius. No metallic foreign body is noted. [id number] Procedure Note Interface, Radiology Results Incoming - 08/28/2017 5:48 PM TEAM DRIVER EXAMINATION: XR FOREARM 2 VW RIGHT CLINICAL HISTORY: s p wound cleaning. re evaluate for FB COMPARISON: None. IMPRESSION: There is some subcutaneous air adjacent to the distal radius. No metallic foreign body is noted. [id number] * hCG qualitative, urine screen (04/07/2017 9:05 PM) Component Value Ref Range hCG qualitative, urine Negative Negative Comment: The manufacturers stated sensitivity of HcG test for serum is >/=10 mIU/ml and urine is >/=20mIU/ml. Specimen Performing Laboratory Urine [facility] DEPARTMENT OF PATHOLOGY AND GENOMIC MEDICINE [address] [place] [address] * PV duplex venous upper extremity (01/14/2017 8:40 AM) Specimen Performing Laboratory [facility] [address] [place] [address] Narrative Vascular Ultrasound Laboratory Upper Extremity Venous Report [address] [address] Pat.Name:Usha VIGIL.ID:[id number] St.Date: 01/14/2017Refer.MD:BAILEY GARHAM MD. Exam Time: 8:11:00 AMStudy Type:UE Venous DOBAge:1980,36Y Sex: FEMALE Sonogrphr: Oscar Caceres, RVSPat. Stat.:Inpatient TapeVol: FE, CPT - 4: 61254 Echo Event ID:[id number] Order ID:[id number] Reason for Study:Right arm pain and redness; [...] Ultrasound Laboratory Upper Extremity Venous Report [address] [place] [address] Pat.Name: [place] VIGIL.ID: [id number] .Date: 01/14/2017 Refer.MD: BAILEY GRAHAM MD. Exam Time: 8:11:00 AM Study Type:UE Venous Age: 5 1980,36Y Sex: FEMALE Sonogrphr: DARIN Navarrete Pat. Stat.:Inpatient Tape Vol: FE, CPT - 4: 45019 Echo Event ID:[id number] Order ID: [id number] Reason for Study:Right arm pain and redness; [...] Anti-Xa 0.3-0.7 U/ml. Specimen Performing Laboratory Blood [facility] DEPARTMENT OF PATHOLOGY AND [address] [address] * Sedimentation rate (01/14/2017 5:00 AM) Component Value Ref Range Sedimentation rate 19 0 - 20 mm/hr Specimen Performing Laboratory Blood [facility] PATHOLOGY [address] [address] * Prothrombin time with INR (01/14/2017 5:00 AM) Component Value Ref Range Prothrombin time 13.7 12.0 - 15.0 sec INR 1.0 Comment: The International Normalized Ratio (INR) is a therapeutic monitoring tool for patients who are stable on oral anticoagulant therapy. An INR of 2.0-3.0 is suggested for deep vein thrombosis/pulmonary embolism. Specimen Performing Laboratory Blood [facility] PATHOLOG[facility] [address] [address] * Troponin (01/14/2017 4:00 AM) Component Value [...] myocardial injury. Specimen Performing Laboratory Plasma specimen [facility] [address] [address] * C-reactive protein (01/14/2017 4:00 AM) Component Value Ref Range CRP <0.30 0.00 - 0.50 mg/dL Specimen Performing Laboratory Plasma specimen [facility] [address] [address] * Thyroid stimulating hormone (01/14/2017 4:00 AM) Component Value Ref Range TSH 3.11 0.27 - 4.20 uIU/mL Specimen Performing Laboratory Plasma specimen [facility] PATHOLOGY AND [address] [address] * Magnesium level (01/14/2017 4:00 AM) Component Value Ref Range Magnesium 1.7 1.6 - 2.6 mg/dL Specimen Performing Laboratory Plasma specimen [facility] DEPARTMENT PATHOLOGY AND [address] [address] * XR Abdomen 1 Vw (01/14/2017 12:48 AM) Specimen Performing Laboratory [facility] [address] [place] [address] Narrative Examination:XR ABDOMEN 1 VW Clinical History: ABDOMINAL PAIN Comparison: None. Findings: Single frontal view the abdomen is obtained. Moderate fecal material is seen throughout the colon. No small bowel dilatation is seen. No free air is seen. IMPRESSION: 1. Nonspecific but nonobstructive bowel gas pattern with moderate fecal material throughout the colon. [id number] Procedure Note Interface, Radiology Results Incoming - [...] with moderate fecal material throughout the colon. [id number] * Lactic acid, I-Stat (01/14/2017 12:19 AM) Component Value Ref Range Lactic acid, I-Stat 0.8 0.5 - 2.2 mmol/L Specimen Performing Laboratory Plasma specimen [facility] DEPARTMENT OF PATHOLOGY AND GENOMIC MEDICINE [address] [place] [address] * Blood culture, aerobic & anaerobic (01/14/2017 12:10 AM) Only the most recent of 2 results within the time period is included. Component Value Ref Range Blood culture isolate No growth after 5 days of incubation. Comment: Specimen Information Specimen Source: Blood Specimen Site: Jugular-R Specimen Performing Laboratory Blood - Jugular [facility] DEPARTMENT OF PATHOLOGY AND GENOMIC MEDICINE [address] [place] [address] * Urinalysis (01/13/2017 11:40 PM) Component Value [...] Urine DEPARTMENT OF PATHOLOGY AND GENOMIC MEDICINE, [address] [address] after 12/05/2016 Insurance Payer Benefit Subscriber ID Type Phone Address Plan / Group C [employer] xxxxxxxxx HMO/PPO THCARE CHOICE/CHO ICE + U[employer] xxxxxxxxx HMO/PPO THCARE CHOICE/CHO ICE + [facility] [employer] xxxxxxxxx HMO/PPO THCARE CHOICE/CHO ICE +
--- OUTSIDE RECORDS SUMMARY | 2017-12-06 00:09 | XMS REPORT | Continuity of Care Document ---
Author Author [facility] Organization [facility] Address [address] [place] [address] Phone Unavailable Care Team Providers Care Tutoring Manager Name Role Phone DASHA PEDROZA MD PCP Insurance Providers Guarantor Belia Rivas Address [address] [place] [address] Email @[employer] [facility] [facility] Policy Number [id number] Subscriber's Name Turner Rivas Relationship 01 Group Number [id number] Group Name [employer] Effective Date 17 Advance Directives Directive Response Recorded Date/Time Does the patient have an advance directive? No 01/06/17 8:00pm If yes, is advance directive on file with [facility]? No 10/26/16 6:07pm If not on file with [facility] will patient provide a copy? No 11/11/16 9:51pm Problems Medical Problem Onset Date Status Kidney stone 10/26/2015 Acute UTI (urinary tract infection) 01/01/2016 Acute Medications Current Home Medications Medication Dose Units Route Directions Days Qty Instructions Start Date Alprazolam (Xanax) 2 Mg Tablet 1 Mg Oral Twice A Day Carvedilol 12.5 Mg Tablet 12.5 Mg Oral Every 12 Hours 60 Tab Phenazopyridine Hcl (Pyridium) 100 Mg Tablet 200 Mg Oral Daily Potassium Citrate 10 Meq Tablet.er 10 Meq Oral Daily 30 Cap Tylenol Oral As Needed Past Home Medications Medication Directions Ordered Status Acetaminophen/Hydrocodone Bitart ([place] 10MG-325MG*) 1 Ea Tab, 1 Tab Oral [...] information available. Plan of Care Discharge Date 10/14/17 3:50am Disposition HOME, SELF-CARE Condition at Discharge Stable Instructions/Education Provided Abrasion Laceration Fall Prevention Prescriptions See Medication Section Functional Status No [...] 04/07/2017 2:28am Height 5 ft 0 in 10/14/2017 12:15am Weight 131 lb 10/14/2017 12:15am Body Mass Index 25.6 kg/m^2 10/14/2017 12:15am Results Laboratory Results Test Name Result Units [...] :21pm Urine Cannabinoids Screen NEGATIVE NEGATIVE 01/06/2017 1:pm 2016 3:21pm THESE RESULTS ARE FOR MEDICAL [...] 01/11/2017 7:11am 01/14/2017 12:38pm Performed at: - [facility] [address] [id number] Pmo Lead: Paulie Stevenson MD, Phone: [phone] Performed at: - [facility] [address] [id number] Pmo Lead: MADISYN Garcia MD, Phone: [phone] Macro Creatine Kinase Type I 0 % [...] 5:29pm Carbon Dioxide Level 17 mmol/L L 22-01/20/2017 5:00pm 01/20/2017 5: 29pm Anion Gap 16.3 mmol/L H 8-16 01/20/2017 5:00pm 01/20/2017 5:29pm Blood Urea Nitrogen 15 mg/dL 7-01/20/2017 5:00pm 01/20/2017 5:29pm Creatinine 0.83 mg/dL 0.57-1.11 [...] CLEAR 04/07/2017 12:39am 04/07/2017 12:42am Urine Specific [place] 1.020 1.010-1.025 04/07/2017 12:39am 2016 12:42am Urine [...] FEW H RARE 04/07/2017 12:39am 04/07/2017 12:51am Ammonia 62 UG/DL 31-123 10/14/2017 1:45am 10/14/2017 2:12am Amylase Level 41 U/L 25-125 10/14/2017 1:45am 10/14/2017 2:19am Lipase 6 U/L L 8-78 10/14/2017 1:45am 10/14/2017 2:19am Acetaminophen Level < 3 ug/mL L 10-30 10/14/2017 1:45am 10/14/2017 2: 19am Ethyl Alcohol Level < 10.0 mg/dL 0.0-10.0 10/14/2017 1:45am 10/14/2017 2:19am Salicylates Level < 5.0 mg/dL 0-30 10/14/2017 1:45am 10/14/2017 2:19am Microbiology Results Procedure Source Organism/Result Collection Date/Time Result Date/Time Result Status Urine Culture Urine,Catheterized ENTEROCOCCUS FAECIUM-VRE 06/23/2017 11: 25am 06/26/2017 10:41am Final Procedures Procedure Status Date Provider(s) INSERTION OF INFUSION DEV INTO SUP VENA CAVA, PERC APPROACH Completed AL HYDE MD CYSTOURETERO W/STONE REMOVE Completed 06/23/17 SMITA BRNUO MD MRI upper extremity w/o dye Active 01/09/17 AL HYDE MD MRI non-joint region of extremity upper wo contrast Active 01/09/17 AL HYDE MD Encounters Encounter Location Arrival/Admit Date Discharge/Depart Date Attending Provider Departed Emergency [facility] 10/14/17 12:05am 10/14 3:50am AYDEN COLLADO MD Departed Emergency [facility] 08/30/17 11:42am 08/30 2:41pm IAN SIM MD Departed Emergency [facility] 08/27/17 3:12am 3:40am IMMANUEL POLLOCK MD Registered Emergency Room [facility] 08/27/17 3:00am IMMANUEL POLLOCK MD Registered Emergency Room [facility] 08/27/17 2:16am IMMANUEL POLLOCK MD Registered [facility] Day Care [facility] 06/23/17 8:39am SMITA BRUNO MD Departed Emergency [facility] 04/07/17 12:10am 04/07 2:44am AYDEN COLLADO MD Departed Emergency [facility] 04/06/17 4:12pm 7:40pm AYDEN COLLADO MD Departed Emergency [facility] 01/21/17 2:13am 6:02am AYDEN COLLADO MD Departed Emergency [facility] 01/20/17 3:42pm 10:58pm AYDEN COLLADO MD Discharged Inpatient [facility] 01/08/17 9:00am 01/11/17 11:09pm AL HYDE MD
[2017-12-06 01:15] VITALS: BP 138/86
[2017-12-06] MEDS ORDERED: CEFTRIAXONE SOD 1 GM VIAL IM ONE (01:15)
== END 2017-12-06 01:20 | disposition home or self-care (01) ==
LOC: FSED 00:04
DX: R10.32 Left lower quadrant pain (principal); R11.0 Nausea; N10 Acute pyelonephritis; Z85.07 Personal history of malignant neoplasm of pancreas
CPT/HCPCS: 74176; 81003; 96372; 99283; J0696

== ENCOUNTER 2018-02-13 15:27 | Emergency (ER) | payer OTHER ==
[~2018-02-13] VITALS: Ht 152.4 cm; Wt 61.7 kg
[~2018-02-13 15:27] MED LIST changes: +MONUROL3 GM PO; +TYLENOL 4 PO; +VANCOMYCIN HCL500 MG PO
[2018-02-13] MEDS ORDERED: SODIUM CHLORIDE 0.9% 1000ML 1,000 ML IV ONE (16:45)
[2018-02-13] MEDS ORDERED: DICYCLOMINE HCL 20 MG/2 ML VIAL IM ONE (16:45)
[2018-02-13 17:04] LABS: BILIRUBIN,URINE NEGATIVE (NEGATIVE); CLARITY,URINE CLEAR (CLEAR); COLOR,URINE YELLOW (YELLOW); KETONES,URINE NEGATIVE (NEGATIVE); LEUKOCYTE ESTERASE ,URINE NEGATIVE (NEGATIVE); NITRITE,URINE NEGATIVE (NEGATIVE); PROTEIN,URINE DIPSTICK NEGATIVE (NEGATIVE); URINE UROBILINOGEN 0.2 mg/dL (0.2 - 1)
[2018-02-13 17:08] LABS: BACTERIA,URINE FEW /HPF; EPITHELIAL CELLS,URINE FEW /LPF; MUCUS,URINE RARE (RARE); RBC,URINE 0-5 /HPF (0-5)
--- NOTE | 2018-02-13 17:48 | Diagnostic Imaging Report ---
PROCEDURE:X-RAY ABDOMEN - KUB COMPARISON:None. INDICATIONS:EMESIS, NAUSEA, LOW GRADE FEVER, ABDOMEN AND BACK PAIN X 4DAYS FINDINGS: Nonobstructive bowel gas pattern. No air filled, dilated loops of bowel. Mild retained stool in the distal colon/rectum. No abnormal calcifications project over the genitourinary system. No bony abnormalities. Lung bases are clear. CONCLUSION: Nonobstructive bowel gas pattern. No air-filled, dilated loops of bowel. Mild retained stool in the distal colon/rectum Angel Perales M.D. Dictated by: Angel Perales M.D. on 02/13/2018 at 17:54 Electronically approved by: Angel Perales M.D. on 02/13/2018 at 17:54
[2018-02-13] MEDS ORDERED: LACTULOSE SYRUP 20 GM/30 ML UDC PO ONE (18:00)
[2018-02-13] MEDS ORDERED: DOCUSATE SODIUM LIQD 100 MG/10 ML UDC NG ONE (18:00)
[2018-02-13 18:36] LABS: PREGNANCY TEST, URINE NEGATIVE (NEGATIVE)
[2018-02-13 18:38] LABS: BASOPHILS % 0.4 % (0.0-1.0); EOSINOPHILS # (AUTO) 0.1 (0.0-0.4); EOSINOPHILS % 1.7 % (0.0-6.0); HEMATOCRIT 32.9 % (34.2-44.1); HEMOGLOBIN 9.7 g/dL (12.0-16.0); LYMPHOCYTES # (AUTO) 1.5 (1.0-3.2); LYMPHOCYTES % 32.2 % (18.0-39.1); MEAN CORPUSCULAR HEMOGLOBIN 24.9 pg (28-32); MEAN CORPUSCULAR HGB CONC 29.5 g/dL (31-35); MEAN CORPUSCULAR VOLUME 84.6 fL (81-99); MONOCYTES # (AUTO) 0.4 (0.2-0.8); MONOCYTES % 9.6 % (4.4-11.3); NEUTROPHILS # (AUTO) 2.6 (2.1-6.9); NEUTROPHILS % 55.9 % (38.7-80.0); PLATELET COUNT 232 x10e3/uL (140-360); RED BLOOD COUNT 3.89 x10e6/uL (3.6-5.1); RED CELL DISTRIBUTION WIDTH 21.3 % (11.7-14.4)
[2018-02-13 18:53] LABS: ANION GAP 14.6 mmol/L (8-16); BLOOD UREA NITROGEN 15 mg/dL (7-26); BUN/CREATININE RATIO 20 (6-25); CALCIUM 9.9 mg/dL (8.4-10.2); CARBON DIOXIDE 18 mmol/L (22-29); CHLORIDE 112 mmol/L (98-107); CREATININE, SERUM 0.76 mg/dL (0.57-1.11); EST GLOMERULAR FILTRATION RATE > 60 ML/MIN (60-); GLUCOSE 110 mg/dL (74-118); POTASSIUM 3.6 mmol/L (3.5-5.1); SODIUM 141 mmol/L (136-145)
[2018-02-13 18:54] LABS: ALANINE AMINOTRANSFERASE 169 IU/L (0-55); ALKALINE PHOSPHATASE 139 IU/L (40-150); LIPASE 12 U/L (8-78)
[2018-02-13] MEDS ORDERED: HYDROMORPHONE 1MG/1ML INJ SC NR (19:00)
== END 2018-02-13 20:42 | disposition home or self-care (01) ==
LOC: ER 15:27
DX: R10.30 Lower abdominal pain, unspecified (principal); R11.0 Nausea; E86.0 Dehydration; G89.29 Other chronic pain; Z85.07 Personal history of malignant neoplasm of pancreas
CPT/HCPCS: 36415; 74018; 80053; 81001; 81025; 83690; 85025; 99283; J1170; J1642; J1644; J7030; J0500

== ENCOUNTER 2018-02-27 16:52 | Emergency (ER) | payer OTHER ==
[~2018-02-27] VITALS: Ht 152.4 cm; Wt 61.7 kg
[2018-02-27] MEDS ORDERED: CEFTRIAXONE SOD 1 GM VIAL IM ONE (18:15)
[2018-02-27] MEDS ORDERED: PROMETHAZINE HCL (IM) 25 MG/ML VIAL IM ONE (18:15)
[2018-02-27 18:23] LABS: CLARITY,URINE HAZY (CLEAR); COLOR,URINE ORANGE (YELLOW); LEUKOCYTE ESTERASE ,URINE NEGATIVE (NEGATIVE)
[2018-02-27 18:24] LABS: BILIRUBIN,URINE NEGATIVE (NEGATIVE); KETONES,URINE NEGATIVE (NEGATIVE); NITRITE,URINE POSITIVE (NEGATIVE); PREGNANCY TEST, URINE NEGATIVE (NEGATIVE); PROTEIN,URINE DIPSTICK 1+ (NEGATIVE); URINE UROBILINOGEN 1 mg/dL (0.2 - 1)
[2018-02-27 18:31] LABS: BASOPHILS % 0.4 % (0.0-1.0); EOSINOPHILS # (AUTO) 0.3 (0.0-0.4); EOSINOPHILS % 9.7 % (0.0-6.0); HEMATOCRIT 31.8 % (34.2-44.1); LYMPHOCYTES # (AUTO) 1.4 (1.0-3.2); LYMPHOCYTES % 55.2 % (18.0-39.1); MEAN CORPUSCULAR HEMOGLOBIN 25.1 pg (28-32); MEAN CORPUSCULAR HGB CONC 31.4 g/dL (31-35); MEAN CORPUSCULAR VOLUME 79.9 fL (81-99); MONOCYTES # (AUTO) 0.3 (0.2-0.8); NEUTROPHILS # (AUTO) 0.6 (2.1-6.9); NEUTROPHILS % 24.3 % (38.7-80.0); PLATELET COUNT 161 x10e3/uL (140-360); RED BLOOD COUNT 3.98 x10e6/uL (3.6-5.1)
[2018-02-27 18:43] LABS: BACTERIA,URINE MANY /HPF; EPITHELIAL CELLS,URINE MODERATE /LPF; TRANSITIONAL EPI CELLS,URINE FEW
[2018-02-27 18:50] LABS: ALANINE AMINOTRANSFERASE 34 IU/L (0-55); ALBUMIN 4.3 g/dL (3.5-5.0); ALBUMIN/GLOBULIN RATIO 1.1 (0.8-2.0); ALKALINE PHOSPHATASE 128 IU/L (40-150); ANION GAP 15.1 mmol/L (8-16); BLOOD UREA NITROGEN 10 mg/dL (7-26); BUN/CREATININE RATIO 14 (6-25); CARBON DIOXIDE 21 mmol/L (22-29); CHLORIDE 109 mmol/L (98-107); CREATININE, SERUM 0.74 mg/dL (0.57-1.11); EST GLOMERULAR FILTRATION RATE > 60 ML/MIN (60-); GLUCOSE 101 mg/dL (74-118); POTASSIUM 4.1 mmol/L (3.5-5.1); SODIUM 141 mmol/L (136-145)
[2018-02-27] MEDS ORDERED: SODIUM CHLORIDE 0.9% 1000ML 1,000 ML ONE (18:52)
[2018-02-27 18:57] LABS: AMYLASE 55 U/L (25-125); LIPASE 16 U/L (8-78)
[2018-02-27] MEDS ORDERED: SODIUM CHLORIDE 0.9% 1000ML 1,000 ML IV ONE (19:00)
[2018-02-27] MEDS ORDERED: PROMETHAZINE 12.5MG/ NACL 0.9% 12.5 MG/50 ML BAG IV ONE (19:00)
[2018-02-27] MEDS ORDERED: CEFTRIAXONE SOD 1 GM VIAL IV ONE (19:00)
[2018-02-27 19:54] LABS: EOSINOPHILS % (MANUAL) 5 % (0-7); HYPOCHROMASIA SLIGHT; LYMPHOCYTES % (MANUAL) 57 % (19-48); MONOCYTES % (MANUAL) 8 % (3.4-9.0); NEUTROPHILS % (MANUAL) 23 % (40-74); PLATELET ESTIMATE ADEQUATE; PLATELET MORPHOLOGY COMMENT NORMAL; RBC MORPHOLOGY COMMENT NORMAL
[2018-02-27] MEDS ORDERED: FILGRASTIM 300 MCG/ML VIAL SC STA (19:59)
[2018-02-27 20:35] VITALS: BP 114/66
[2018-02-27] MEDS ORDERED: TYLENOL WITH C1 EACH PO (20:37)
[2018-02-27] MEDS ORDERED: CEFDINIR300 MG PO (20:37)
[2018-02-27] MEDS ORDERED: PHENERGAN SUPP25 MG RC (20:37)
--- OUTSIDE RECORDS SUMMARY | 2018-04-12 03:34 | XMS REPORT | Clinical Summary ---
Author Author [facility] Organization [facility] Address Unknown Phone Unavailable Care Team Providers Care Tinner Helper Name Role Phone Asked, Pcp PCP Unavailable [...] 18 18 875-125 mg per tablet days. cefpodoxime (VANTIN) 200 Take 1 tablet (200 mg 20 tablet 0 12/09/19 12/19/19 MG tablet total) by mouth 2 (two) 18 18 times a day for 10 days. Active Problems Problem Noted Date Foreign body left in wound 08/28/2017 DVT (deep venous thrombosis) (HCC) 01/16/2017 Chronic UTI 01/14/2017 Idiopathic acute pancreatitis without infection or necrosis 09/27/2016 Idiopathic pancreatitis 09/27/2016 Acute cystitis 07/15/2016 Renal stones 07/14/2016 Encounters Date Type Specialty Care Team Description 12/08/2017 Emergency Emergency Medicine Cristiano Cardona MD Generalized abdominal pain (Primary Dx); Flank pain; Renal calculi; Dysuria 10/14/2017 Emergency Emergency Medicine Evelin Perez, Acute UTI (Primary Dx); PA-C Chronic abdominal pain Gray Ha MD 08/28/2017 Emergency General Internal Medicine Camilo Oneil MD Foreign body left in - Connor-Martir Sears MD wound (Primary Dx) 08/29/2017 04/08/2017 Emergency Emergency Medicine Robin French DO Urinary tract infection associated with indwelling urethral catheter, initial encounter (Primary Dx) 04/07/2017 Emergency Emergency Medicine Kt Oliva DO Acute cystitis without hematuria (Primary Dx) after 02/26/2017 Social History Tobacco Use Types Packs/Day Years Used Date Never Smoker Smokeless Tobacco: Never Used Alcohol Use Drinks/Week oz/Week Comments No Sex Assigned at Date Recorded Not on file Last Filed Vital Signs Vital Sign Reading Time Taken Blood Pressure 133/67 12/08/2017 5:05 PM CDT Pulse 100 12/08/2017 5:05 PM CDT Temperature 37.1 C (98.8 F) 12/08/2017 5:05 PM CDT Respiratory Rate 18 12/08/2017 5:05 PM CDT Oxygen Saturation 100% 12/08/2017 5:05 PM CDT Inhaled Oxygen - - Concentration Weight 67.1 kg (148 lb) 10/14/2017 10:33 AM CDT Height 152.4 cm (5') 12/08/2017 5:29 PM CDT Body Mass Index 28.9 10/14/2017 10:33 AM CDT Plan of Treatment Health Maintenance Due Date Last Done Comments CERVICAL CANCER SCREENING 12/18/2000 INFLUENZA VACCINE 02/07/2018 Implants Implanted Type Area Engraver Copperplate Device Expiration Model / Identifier Date Serial / Lot Bladder Sling Breast Implant-01/14/2009 Implanted: 01/14/2009 (Quantity not on file) Procedures Procedure Name Priority Date/Time Associated Diagnosis Comments CT ABDOMEN PELVIS WO STAT 12/08/2017 Results for this CONTRAST 9:32 PM CDT procedure are in the results section. ZZESTIMATED GFR STAT 12/08/2017 Results for this 9:12 PM CDT procedure are in the results section. HCG QUALITATIVE, SERUM STAT 12/08/2017 Results for this SCREEN 9:12 PM CDT procedure are in the results section. LIPASE LEVEL STAT 12/08/2017 Results for this 9:12 PM CDT procedure are in the results section. COMPREHENSIVE METABOLIC STAT 12/08/2017 Results for this PANEL 9:12 PM CDT procedure are in the results section. HC COMPLETE BLD COUNT STAT 12/08/2017 Results for this W/AUTO DIFF 9:12 PM CDT procedure are in the results section. URINALYSIS SCREEN AND STAT 12/08/2017 Results for this MICROSCOPY, WITH REFLEX 8:10 PM CDT procedure are in the TO CULTURE results section. GRAM STAIN Routine 12/08/2017 Results for this 8:10 PM CDT procedure are in the results section. URINE CULTURE Routine 12/08/2017 Results for this 8:10 PM CDT procedure are in the results section. HC COMPLETE BLD COUNT Routine 10/14/2017 Results for this W/AUTO DIFF 12:46 PM CDT procedure are in the results section. ZZESTIMATED GFR STAT 10/14/2017 Results for this 11:37 AM CDT procedure are in the results section. AMYLASE LEVEL STAT 10/14/2017 Results for this 11:37 AM CDT procedure are in the results section. LIPASE LEVEL STAT 10/14/2017 Results for this 11:37 AM CDT procedure are in the results section. COMPREHENSIVE METABOLIC STAT 10/14/2017 Results for this PANEL 11:37 AM CDT procedure are in the results section. URINALYSIS SCREEN AND STAT 10/14/2017 Results for this MICROSCOPY, WITH REFLEX 11:20 AM CDT procedure are in the TO CULTURE results section. GRAM STAIN STAT 10/14/2017 Results for this 11:20 AM CDT procedure are in the results section. URINE CULTURE STAT 10/14/2017 Results for this 11:20 AM CDT procedure are in the results section. ZZESTIMATED GFR STAT 08/28/2017 Results for this 6:02 PM DIRECTOR CORPORATE COMPLIANCE procedure are in the results section. HC COMPLETE BLD COUNT STAT 08/28/2017 Results for this W/AUTO DIFF 6:02 PM DIRECTOR [employer]PORATE COMPLIANCE procedure are in the results section. COMPREHENSIVE METABOLIC STAT 08/28/2017 Results for this PANEL 6:02 PM DIRECTOR [employer]PORATE COMPLIANCE procedure are in the results section. XR FOREARM 2 VW RIGHT STAT 08/28/2017 Results for this 5:17 PM DIRECTOR CORPORATE COMPLIANCE procedure are in the results section. XR FOREARM 2 VW RIGHT STAT 08/28/2017 Results for this 3:27 PM DIRECTOR CORPORATE COMPLIANCE procedure are in the results section. URINALYSIS SCREEN AND Routine 04/08/2017 Results for this MICROSCOPY, WITH REFLEX 1:48 PM CDT procedure are in the TO CULTURE results section. URINE CULTURE Routine 04/08/2017 Results for this 1:43 PM CDT procedure are in the results section. GRAM STAIN Routine 04/08/2017 Results for this 1:43 PM CDT procedure are in the results section. HCG QUALITATIVE, URINE STAT 04/07/2017 Results for this SCREEN 9:05 PM CDT procedure are in the results section. URINALYSIS SCREEN AND STAT 04/07/2017 Results for this MICROSCOPY, WITH REFLEX 9:05 PM CDT procedure are in the TO CULTURE results section. GRAM STAIN STAT 04/07/2017 Results for this 9:05 PM CDT procedure are in the results section. URINE CULTURE STAT 04/07/2017 Results for this 9:05 PM CDT procedure are in the results section. after 02/26/2017 Results * CT Abdomen Pelvis Wo Contrast (12/08/2017 9:32 PM) Narrative Performed At CT ABDOMEN PELVIS WO CONTRAST [facility] CLINICAL INDICATION: ABDOMINAL PAIN, Flank pain. Hx of Pancreatic cancer TECHNIQUE: Multidetector CT of the abdomen and pelvis was performed without intravenous administration of iodinated contrast with multiplanar reformats. CT scans are performed using radiation dose reduction techniques (iterative reconstruction and/or automated exposure control). Technical factors are evaluated and adjusted to ensure appropriate moderation of exposure. Automated dose management technology is applied to adjust radiation exposure while achieving a diagnostic quality image. COMPARISON: CT 09/27/2016. FINDINGS: Mild motion degradation. Lung bases: Dependent subsegmental atelectasis/scarring. Liver: Normal. Gallbladder and biliary: The gallbladder is absent. Clips within the gallbladder fossa. Common bile duct is grossly not dilated. Pancreas: Distal pancreas is atrophic or absent. Spleen: Normal. Gastrointestinal: Large and small bowel are normal in caliber. Appendix is visualized and appears normal. Adrenals: Normal. Kidneys and ureters: 3 mm calculi at the inferior pole of the right kidney. No left renal calculi are visualized. No ureteral calculi are visualized. No hydronephrosis. Urinary bladder: No urinary bladder calculi are visualized. Lymph nodes: No enlarged lymph nodes in the abdomen or pelvis. Peritoneum: No ascites or free air. Vascular: Unremarkable, though evaluation of vessel lumens is limited due to lack of IV contrast. Reproductive organs: Uterus is absent. Unremarkable adnexae. Abdominal wall: Partially visualized bilateral breast implants. Bones: Mild degenerative changes. IMPRESSION: Few nonobstructive right renal calculi. No ureteral or urinary bladder calculi are visualized. No hydronephrosis. [id number] Procedure Note Hm Interface, Radiology Results Incoming - 12/08/2017 9:[address] ABDOMEN PELVIS WO CONTRAST CLINICAL INDICATION: ABDOMINAL PAIN, Flank pain. Hx of Pancreatic cancer TECHNIQUE: Multidetector CT of the abdomen and pelvis was performed without intravenous administration of iodinated contrast with multiplanar reformats. CT scans are performed using radiation dose reduction techniques (iterative reconstruction and/or automated exposure control). Technical factors are evaluated and adjusted to ensure appropriate moderation of exposure. Automated dose management technology is applied to adjust radiation exposure while achieving a diagnostic quality image. COMPARISON: CT 09/27/2016. FINDINGS: Mild motion degradation. Lung bases: Dependent subsegmental atelectasis/scarring. Liver: Normal. Gallbladder and biliary: The gallbladder is absent. Clips within the gallbladder fossa. Common bile duct is grossly not dilated. Pancreas: Distal pancreas is atrophic or absent. Spleen: Normal. Gastrointestinal: Large and small bowel are normal in caliber. Appendix is visualized and appears normal. Adrenals: Normal. Kidneys and ureters: 3 mm calculi at the inferior pole of the right kidney. No left renal calculi are visualized. No ureteral calculi are visualized. No hydronephrosis. Urinary bladder: No urinary bladder calculi are visualized. Lymph nodes: No enlarged lymph nodes in the abdomen or pelvis. Peritoneum: No ascites or free air. Vascular: Unremarkable, though evaluation of vessel lumens is limited due to lack of IV contrast. Reproductive organs: Uterus is absent. Unremarkable adnexae. Abdominal wall: Partially visualized bilateral breast implants. Bones: Mild degenerative changes. IMPRESSION: Few nonobstructive right renal calculi. No ureteral or urinary bladder calculi are visualized. No hydronephrosis. [id number] Performing Organization Address City/State/Zipcode Phone Number [facility] [address] [place] [address] * Estimated GFR (12/08/2017 9:12 PM) Only the most recent of 3 results within the time period is included. GFR Non Af Amer >90 mL/min/1.73 m2 [facility] DEPARTMENT OF PATHOLOGY AND GENOMIC MEDICINE GFR Af Amer >90 mL/min/1.73 m2 [facility] DEPARTMENT OF Comment: PATHOLOGY AND Chronic kidney disease: <60 GENOMIC MEDICINE mL/min/1.73m2 Kidney failure: <15 mL/min/1.73m2 The estimated GFR is calculated from the IDMS-traceable Modification of Diet in Renal Disease Equation. The accuracy of the calculation is poor when the creatinine is normal. Calculated values >90 mL/min/1.73m2 are not reported. This equation has not been validated in children (<18 years), women, the elderly (>70 years), or ethnic groups other than Caucasians and Americans. Specimen Plasma specimen Performing Organization Address City/[facility]/Zipcode Phone Number [address] [address] PATHOLOGY AND GENOMIC MEDICINE * CBC with platelet and differential (12/08/2017 9:12 PM) Only the most recent of 3 results within the time period is included. WBC 3.24 (L) 4.50 - 11.00 k/uL [facility] DEPARTMENT OF PATHOLOGY AND GENOMIC MEDICINE RBC 3.65 (L) 4.20 - 5.50 m/uL [facility] DEPARTMENT OF PATHOLOGY AND GENOMIC MEDICINE HGB 8.9 (L) 12.0 - 16.0 g/dL [facility] DEPARTMENT OF PATHOLOGY AND GENOMIC MEDICINE HCT 28.3 (L) 37.0 - 47.0 % [facility] DEPARTMENT OF PATHOLOGY AND GENOMIC MEDICINE MCV 77.5 (L) 82.0 - 100.0 fL [facility] DEPARTMENT OF PATHOLOGY AND GENOMIC MEDICINE MCH 24.4 (L) 27.0 - 34.0 pg [facility] DEPARTMENT OF PATHOLOGY AND GENOMIC MEDICINE MCHC 31.4 31.0 - 37.0 g/dL [facility] DEPARTMENT OF PATHOLOGY AND GENOMIC MEDICINE RDW - SD 48.8 37.0 - 55.0 fL [facility] DEPARTMENT OF PATHOLOGY AND GENOMIC MEDICINE MPV 10.0 8.8 - 13.2 fL [facility] DEPARTMENT OF PATHOLOGY AND GENOMIC MEDICINE Platelet count 285 150 - 400 k/uL [facility] DEPARTMENT OF PATHOLOGY AND GENOMIC MEDICINE Nucleated RBC 0.00 /100 WBC [facility] DEPARTMENT OF PATHOLOGY AND GENOMIC MEDICINE Neutrophils 36.8 (L) 39.0 - 69.0 % [facility] DEPARTMENT OF PATHOLOGY AND GENOMIC MEDICINE Lymphocytes 47.8 (H) 25.0 - 45.0 % [facility] DEPARTMENT OF PATHOLOGY AND GENOMIC MEDICINE Monocytes 11.4 (H) 0.0 - 10.0 % [facility] DEPARTMENT OF PATHOLOGY AND GENOMIC MEDICINE Eosinophils 3.4 0.0 - 5.0 % [facility] DEPARTMENT OF PATHOLOGY AND GENOMIC MEDICINE Basophils 0.3 0.0 - 1.0 % [facility] DEPARTMENT OF PATHOLOGY AND GENOMIC MEDICINE Immature granulocytes 0.3Comment: "Immature 0.0 - 1.0 % [facility] DEPARTMENT OF granulocytes" (promyelocytes, PATHOLOGY AND myelocytes, metamyelocytes) GENOMIC MEDICINE Specimen Blood Performing Organization Address City/[facility]/[place] [address] PATHOLOGY AND GENOMIC MEDICINE * hCG qualitative, serum screen (12/08/2017 9:12 PM) hCG qualitative, serum NegativeComment: Sensitivity [facility] DEPARTMENT OF of HCG test: 25 mIU/mL PATHOLOGY AND GENOMIC MEDICINE Specimen Blood Performing Organization Address City/[facility] [place] [address] PATHOLOGY AND GENOMIC MEDICINE * Lipase level (12/08/2017 9:12 PM) Only the most recent of 2 results within the time period is included. Lipase 20 13 - 60 U/L [facility] DEPARTMENT OF PATHOLOGY AND GENOMIC MEDICINE Specimen Plasma specimen Performing Organization Address City/[facility] [place] [address] PATHOLOGY AND GENOMIC MEDICINE * Comprehensive metabolic panel (12/08/2017 9:12 PM) Only the most recent of 3 results within the time period is included. Sodium 138 135 - 148 mEq/L [facility] DEPARTMENT OF PATHOLOGY AND GENOMIC MEDICINE Potassium 3.9 3.5 - 5.0 mEq/L [facility] DEPARTMENT OF PATHOLOGY AND GENOMIC MEDICINE Chloride 101 98 - 112 mEq/L [facility] DEPARTMENT OF PATHOLOGY AND GENOMIC MEDICINE CO2 24 24 - 31 mEq/L [facility] DEPARTMENT OF PATHOLOGY AND GENOMIC MEDICINE Anion gap 13@ANIO 7 - 15 mEq/L [facility] DEPARTMENT OF PATHOLOGY AND GENOMIC MEDICINE BUN 11 6 - 20 mg/dL [facility] DEPARTMENT OF PATHOLOGY AND GENOMIC MEDICINE Creatinine 0.6 0.5 - 0.9 mg/dL [facility] DEPARTMENT OF PATHOLOGY AND GENOMIC MEDICINE Glucose 98 65 - 99 mg/dL [facility] DEPARTMENT OF PATHOLOGY AND GENOMIC MEDICINE Calcium 9.4 8.3 - 10.2 mg/dL [facility] DEPARTMENT OF PATHOLOGY AND GENOMIC MEDICINE Protein 7.7 6.3 - 8.3 g/dL [facility] DEPARTMENT OF Comment: PATHOLOGY AND [place] GENOMIC MEDICINE 4.6-7.0 g/dL 1 week 4.4-7.6 g/dL 7 months-1year 5.1-7.3 g/dL 1-2 years 5.6-7 .5 g/dL >3 years 6.0-8 .0 g/dL 18-150 6.3-8.3 g/dL Albumin 3.9 3.5 - 5.0 g/dL [facility] DEPARTMENT OF PATHOLOGY AND GENOMIC MEDICINE A/G ratio 1.0 0.7 - 3.8 [facility] DEPARTMENT OF PATHOLOGY AND GENOMIC MEDICINE Alkaline phosphatase 137 (H) 35 - 104 U/L [facility] DEPARTMENT OF PATHOLOGY AND GENOMIC MEDICINE AST 30 10 - 35 U/L [facility] DEPARTMENT OF PATHOLOGY AND GENOMIC MEDICINE ALT 40 5 - 50 U/L [facility] DEPARTMENT OF PATHOLOGY AND GENOMIC MEDICINE Total bilirubin 0.3 0.0 - 1.2 mg/dL [facility] DEPARTMENT OF PATHOLOGY AND GENOMIC MEDICINE Specimen Plasma specimen Performing Organization Address City/State/[place] Phone Number [facility] DEPARTMENT OF [address] [place] [id number] PATHOLOGY AND GENOMIC MEDICINE * Urinalysis screen and microscopy, with reflex to culture (12/08/2017 8:10 PM) Only the most recent of 4 results within the time period is included. Specimen site Clean catch [facility] DEPARTMENT OF PATHOLOGY AND GENOMIC MEDICINE Color, UA Straw [facility] DEPARTMENT OF PATHOLOGY AND GENOMIC MEDICINE Appearance, UA Hazy [facility] DEPARTMENT OF PATHOLOGY AND GENOMIC MEDICINE Specific gravity, UA 1.013 1.001 - 1.035 [facility] DEPARTMENT OF PATHOLOGY AND GENOMIC MEDICINE pH, UA 7.0 5.0 - 8.5 [facility] DEPARTMENT OF PATHOLOGY AND GENOMIC MEDICINE Protein, UA Negative Negative [facility] DEPARTMENT OF PATHOLOGY AND GENOMIC MEDICINE Glucose, UA Negative Negative [facility] DEPARTMENT OF PATHOLOGY AND GENOMIC MEDICINE Ketones, UA Negative Negative [facility] DEPARTMENT OF PATHOLOGY AND GENOMIC MEDICINE Bilirubin, UA Negative Negative [facility] DEPARTMENT OF PATHOLOGY AND GENOMIC MEDICINE Blood, UA Negative Negative [facility] DEPARTMENT OF PATHOLOGY AND GENOMIC MEDICINE Nitrite, UA Negative Negative [facility] DEPARTMENT OF PATHOLOGY AND GENOMIC MEDICINE Urobilinogen, UA <2.0 <2.0 [facility] DEPARTMENT OF PATHOLOGY AND GENOMIC MEDICINE Leukocyte esterase, UA Negative Negative [facility] DEPARTMENT OF PATHOLOGY AND GENOMIC MEDICINE Epithelial cells, UA 12 /HPF [facility] DEPARTMENT OF PATHOLOGY AND GENOMIC MEDICINE WBC, UA 8 (H) 0 - 4 /HPF [facility] DEPARTMENT OF PATHOLOGY AND GENOMIC MEDICINE RBC, UA 1 0 - 5 /HPF [facility] DEPARTMENT OF PATHOLOGY AND GENOMIC MEDICINE Bacteria, UA Moderate (A) None seen [facility] DEPARTMENT OF PATHOLOGY AND GENOMIC MEDICINE Yeast, UA None seen [facility] DEPARTMENT OF PATHOLOGY AND GENOMIC MEDICINE Yeast with pseudohyphae, None seen [facility] DEPARTMENT OF UA PATHOLOGY AND GENOMIC MEDICINE Specimen Urine Performing Organization Address City/[facility] Phone Number [facility] DEPARTMENT OF [address] [place] [address] PATHOLOGY AND GENOMIC MEDICINE * Gram stain (12/08/2017 8:10 PM) Only the most recent of 4 results within the time period is included. Gram stain result Few WBC's [facility] DEPARTMENT OF Moderate Gram positive rods PATHOLOGY AND Comment: GENOMIC MEDICINE Specimen Information Specimen Source: Urine Specimen Site: Clean catch Specimen Urine Performing Organization Address City/[facility] Phone Number [facility] DEPARTMENT OF [address] [place] [address] PATHOLOGY AND GENOMIC MEDICINE * Urine culture (12/08/2017 8:10 PM) Only the most recent of 4 results within the time period is included. Urine culture isolate Mixed Gram positive rachele [facility] DEPARTMENT OF 10-2 cfu/ml PATHOLOGY AND (A) GENOMIC MEDICINE Comment: Specimen Information Specimen Source: Urine Specimen Site: Clean catch Specimen Urine Performing Organization Address City/[facility]/Zipcode Phone Number [facility] [place] [address] PATHOLOGY AND GENOMIC MEDICINE * Amylase level (10/14/2017 11:37 AM) Amylase 45 13 - 73 U/L [facility] DEPARTMENT OF PATHOLOGY AND GENOMIC MEDICINE Specimen Plasma specimen Performing Organization Address City/State/Zipcode Phone Number [facility] DEPARTMENT [address] [place] [address] PATHOLOGY AND GENOMIC MEDICINE * XR Forearm 2 Vw Right (08/28/2017 5:17 PM) Only the most recent of 2 results within the time period is included. Narrative Performed At EXAMINATION: XR FOREARM 2 VW RIGHT [facility] CLINICAL HISTORY: s p wound cleaning. re evaluate for FB COMPARISON: None. IMPRESSION: There is some subcutaneous air adjacent to the distal radius. No metallic foreign body is noted. [id number] Procedure Note Hm Interface, Radiology Results Incoming - 08/28/2017 5:48 PM DIRECTOR CORPORATE COMPLIANCE EXAMINATION: XR FOREARM 2 VW RIGHT CLINICAL HISTORY: s p wound cleaning. re evaluate for FB COMPARISON: None. IMPRESSION: There is some subcutaneous air adjacent to the distal radius. No metallic foreign body is noted. [id number] Performing Organization Address City/State/Zipcode Phone Number [facility] [address] [place] [address] * hCG qualitative, urine screen (04/07/2017 9:05 PM) hCG qualitative, urine Negative Negative [facility] DEPARTMENT OF Comment: PATHOLOGY AND The manufacturers stated GENOMIC MEDICINE sensitivity of HcG test for serum is >/=10 mIU/ml and urine is >/=20mIU/ml. Specimen Urine Performing Organization Address City/[facility] Cent[facility]ode Phone Number [facility] DEPARTMENT [address] [place] [address] PATHOLOGY AND GENOMIC MEDICINE after 02/26/2017 Insurance Payer Benefit Subscriber ID Type Phone Address Plan / Group [facility] H[facility]/PPO THCARE CHOICE/CHO ICE + [facility] HMO/PPO THCARE CHOICE/CHO ICE + [facility] HMO/PPO THCARE CHOICE/CHO ICE +
--- OUTSIDE RECORDS SUMMARY | 2018-04-12 03:35 | XMS REPORT | Continuity of Care Document ---
Author Author [facility] Organization [facility] Address [address] [place] [address] Phone Unavailable Care Team Providers Care Associate Account Manager Name Role Phone NO, PCP PCP Unavailable Insurance Providers Guarantor Belia Rivas Address [address] [place] [address] Email @[employer] [facility] Policy Number [id number] Subscriber's Name Turner Rivas Relationship 01 Group Number [id number] Group Name [employer] Effective Date 17 Advance Directives Directive Response Recorded Date/Time Does the patient have an advance directive? No 01/13/18 1:56am If yes, is advance directive on file with [facility]? No 01/13/18 1:56am If not on file with [facility] will patient provide a copy? No 01/13/18 1:56am Problems Medical Problem Onset Date Status Abdominal pain Unknown Intractable vomiting Unknown Kidney stone 10/26/2015 Acute UTI (urinary tract infection) 01/01/2016 Acute Medications Current Home Medications Medication Dose Units Route Directions Days Qty Instructions Start Date Alprazolam (Xanax) 2 Mg Tablet 1 Mg Oral Twice A Day Carvedilol 12.5 Mg Tablet 12.5 Mg Oral Every 12 Hours 60 Tab Fosfomycin Tromethamine (Monurol) 3 Gm Packet 3 G Oral Use As Directed MONUROL 3GM ORAL ONCE EVERY 3DAYS Phenazopyridine Hcl (Pyridium) 100 Mg Tablet 200 Mg Oral Daily as needed for Bladder Spasms Tylenol 650 Mg Oral As Needed as needed for Pain Tylenol 4 1 Tab Oral Three Times A Day 30 Past Home Medications Medication Directions Ordered Status Acetaminophen/Hydrocodone Bitart ([place] 10MG-325MG*) 1 Ea Tab, 1 Tab Oral [...] Citrate 10 Meq Tablet.er, 10 Meq Oral Daily Discontinued Potassium Citrate 10 Meq Tablet.er, 10 Meq Oral Twice A Day Discontinued Pyridium , Discontinued Sulfamethoxazole/Trimethoprim (Bactrim Ds Tablet) 1 Each Tablet, 1 Tab Oral Twice A Day Discontinued Vancomycin Hcl 500 Mg Vial, 250 Mg Oral Every 6 Hours Discontinued Family History Relationship Condition Age at Onset Recorded Date/Time 33 Father Family history of high cholesterol Unknown 10/26/2015 6:07pm 33 Father Family history of hypertension Unknown 10/26/2015 6:07pm 32 Mother Family history of high cholesterol Unknown 10/26/2015 6:07pm Social History Social History Problem Response Recorded Date/Time Onset Date Status Hx Psychiatric Problems No 12/10/2017 8:50pm Not Applicable Not Applicable Hx Eating Disorder No 12/10/2017 8:50pm Not Applicable Not Applicable Hx Substance Use Disorder No 12/10/2017 8:50pm Not Applicable Not Applicable Hx Depression No 12/10/2017 8:50pm Not Applicable Not Applicable Hx Alcohol Use No 12/10/2017 8:50pm Not Applicable Not Applicable Hx Substance Use Treatment No 12/10/2017 8:50pm Not Applicable Not Applicable Hx Physical Abuse No 12/10/2017 8:50pm Not Applicable Not Applicable Smoking Status Start Date Stop Date Never Smoker Hospital Discharge Instructions No hospital discharge instruction information available. Plan of Care Discharge Date 02/13/18 8:42pm Disposition HOME, SELF-CARE Condition at Discharge Stable Instructions/Education Provided Abdominal Pain - Adult Chronic Pain Dehydration - Adult Forms Provided Work/School Excuse Prescriptions See Medication Section Referrals RUBEN GRIFFITH MD Address: [address] [place] [id number] Additional Instructions/Education FOLLOW-UP WITH PAIN MANAGEMENT Functional Status No functional status information available. Allergies, Adverse Reactions, Alerts Allergen Type Severity Reaction Status Last Updated dexamethasone sod phosphate Allergy Intermediate RASH Active 02/13/18 iodine Allergy Intermediate hives Active 02/13/18 Morphine Allergy Mild Active 02/13/18 Dexamethasone Allergy Intermediate RASH Active 02/13/18 Fentanyl Allergy Mild Active 02/13/18 Tramadol Allergy Mild Hives, chest pressure Active 02/13/18 Butorphanol Allergy Mild Active 02/13/18 Ondansetron Adverse Reaction Mild ELEVATES BP Active 02/13/18 Ketorolac Allergy Mild Active 02/13/18 TEGADERM Allergy Mild redness, skin irritation Active 10/31/15 Immunizations No immunization information available. Vital Signs Acute Vital Signs Vital Response Date/Time Temperature (Fahrenheit) 96.5 degrees F (97.6 - 99.5) 01/17/2018 8:00am Pulse Pulse Rate (adult) 80 bpm (60 - 90) 01/17/2018 8:00am Respiratory Rate 20 bpm (12 - 24) 01/17/2018 8:00am Blood Pressure 111/72 mm Hg 01/17/2018 8:00am Height 5 ft 0 in 02/13/2018 3:50pm Weight 136 lb 02/13/2018 3:50pm Body Mass Index 26.6 kg/m^2 02/13/2018 3:50pm Results Laboratory Results Test Name Result Units Flags Reference Collection Date/Time Result Date/ Time Comments Ammonia 62 UG/DL 31-123 10/14/2017 1:45am 10/14/2017 2:12am Acetaminophen Level < 3 ug/mL L 10-30 10/14/2017 1:45am 10/14/2017 2: 19am Ethyl Alcohol Level < 10.0 mg/dL 0.0-10.0 10/14/2017 1:45am 10/14/2017 2:19am Salicylates Level < 5.0 mg/dL 0-30 10/14/2017 1:45am 10/14/2017 2:19am Basophils % (Manual) 1 % 0-1.5 12/10/2017 5:55pm 12/10/2017 7:53pm Metamyelocytes % 4 % H 0-0 2017 5:20am 2017 7:43am Reactive Lymphocytes 5 2017 5:20am 2017 7:43am Blast Cells % 1 12/15/2017 5:29am 12/15/2017 7:18am [place] Bodies FEW 12/14/2017 5:11am 12/14/2017 10:57am Elliptocytes SLIGHT 12/14/2017 5:11am 12/14/2017 10:57am Urine Transitional Epithelial Cells MODERATE H NONE 12/10/2017 7:02pm 12/10/2017 7:36pm Urine Renal Epithelial Cells RARE H NONE 12/10/2017 5:11pm 12/10/2017 6:38pm Urine Calcium Oxalate Crystals FEW FEW 12/10/2017 5:11pm 12/10/2017 6 :38pm Urine Amorphous Sediment MODERATE H FEW 12/10/2017 5:11pm 12/10/2017 6 :38pm Clostridium Difficile Toxin A & B NEGATIVE NEGATIVE 12/18/2017 10: 00pm 2017 11:20am Testing on stool aspirate specimens is outside street light inspector claims since specimen type not validated on this assay. Differential Total Cells Counted 100 01/16/2018 5:00am 01/16/2018 7 :15am Neutrophils % (Manual) 66 % 40-74 01/16/2018 5:00am 01/16/2018 7:15am Band Neutrophils % 3 % 01/16/2018 5:00am 01/16/2018 7:15am Lymphocytes % (Manual) 23 % 19-48 01/16/2018 5:00am 01/16/2018 7:15am Monocytes % (Manual) 3 % L 3.4-9.0 01/16/2018 5:00am 01/16/2018 7:15am Eosinophils % (Manual) 4 % 0-7 01/16/2018 5:00am 01/16/2018 7:15am Myelocytes % 1 % H 0-0 01/16/2018 5:00am 01/16/2018 7:15am Nucleated Red Blood Cells 1 01/16/2018 5:00am 01/16/2018 7:15am Platelet Estimate ADEQUATE 01/16/2018 5:00am 01/16/2018 7:15am Platelet Morphology Comment NORMAL 01/16/2018 5:00am 01/16/2018 7: 15am Hypochromasia SLIG 01/16/2018 5:00am 01/16/2018 7:15am Poikilocytosis SLIGHT 01/16/2018 5:00am 01/16/2018 7:15am Anisocytosis MODERATE 01/16/2018 5:00am 01/16/2018 7:15am Microcytosis SLIGHT 01/12/2018 6:45pm 01/12/2018 8:28pm Red Cell Morphology Comment ABNORMAL 01/16/2018 5:00am 01/16/2018 7 :15am Phosphorus Level 4.3 MG/DL 2.3-4.7 01/15/2018 7:15am 01/15/2018 8:02am Magnesium Level 2.2 MG/DL H 1.3-2.1 01/16/2018 5:00am 01/16/2018 5:55am Iron Level 41 ug/dL L 50-170 01/15/2018 7:15am 01/15/2018 8:02am Total Iron Binding Capacity 456 ug/dL 261-478 01/15/2018 7:15am 2017 8:02am Percent Iron Saturation 9 % L 15-50 01/15/2018 7:15am 01/15/2018 8:02am Transferrin 326 mg/dL 180-382 01/15/2018 7:15am 01/15/2018 8:02am Ferritin 35.53 ng/mL 4.63-204.00 01/15/2018 7:15am 01/15/2018 8:19am Amylase Level 41 U/L 25-125 01/12/2018 6:45pm 01/12/2018 8:02pm Vitamin B12 Level > 2000 pg/mL H 213-816 01/15/2018 7:15am 01/15/2018 8: 42am Folate 19.8 ng/mL H 7.0-15.4 01/15/2018 7:15am 01/15/2018 8:39am Thyroid Stimulating Hormone (TSH) 1.682 uIU/mL 0.350-4.940 01/14/2018 5: 27am 01/14/2018 6:38am White Blood Count 4.59 x10e3/uL L 4.8-10.8 02/13/2018 6:25pm 02/13/2018 6:39pm Red Blood Count 3.89 x10e6/uL 3.6-5.1 02/13/2018 6:25pm 02/13/2018 6: 39pm Hemoglobin 9.7 g/dL L 12.0-16.0 02/13/2018 6:25pm 02/13/2018 6:39pm Hematocrit 32.9 % L 34.2-44.1 02/13/2018 6:25pm 02/13/2018 6:39pm Mean Corpuscular Volume 84.6 fL 81-99 02/13/2018 6:25pm 02/13/2018 6: 39pm Mean Corpuscular Hemoglobin 24.9 pg L 28-32 02/13/2018 6:25pm 2017 6:39pm Mean Corpuscular Hemoglobin Concent 29.5 g/dL L 31-35 02/13/2018 6:25pm 02/13/2018 6:39pm Red Cell Distribution Width 21.3 % H 11.7-14.4 02/13/2018 6:25pm 2017 6:39pm Platelet Count 232 x10e3/uL 140-360 02/13/2018 6:25pm 02/13/2018 6: 39pm Neutrophils (%) (Auto) 55.9 % 38.7-80.0 02/13/2018 6:25pm 02/13/2018 6: 39pm Lymphocytes (%) (Auto) 32.2 % 18.0-39.1 02/13/2018 6:25pm 02/13/2018 6: 39pm Monocytes (%) (Auto) 9.6 % 4.4-11.3 02/13/2018 6:25pm 02/13/2018 6: 39pm Eosinophils (%) (Auto) 1.7 % 0.0-6.0 02/13/2018 6:25pm 02/13/2018 6: 39pm Basophils (%) (Auto) 0.4 % 0.0-1.0 02/13/2018 6:25pm 02/13/2018 6:39pm IM GRANULOCYTES % 0.2 % 0.0-1.0 02/13/2018 6:25pm 02/13/2018 6:39pm Neutrophils # (Auto) 2.6 2.1-6.9 02/13/2018 6:25pm 02/13/2018 6:39pm Lymphocytes # (Auto) 1.5 1.0-3.2 02/13/2018 6:25pm 02/13/2018 6:39pm Monocytes # (Auto) 0.4 0.2-0.8 02/13/2018 6:25pm 02/13/2018 6:39pm Eosinophils # (Auto) 0.1 0.0-0.4 02/13/2018 6:25pm 02/13/2018 6:39pm Basophils # (Auto) 0.0 0.0-0.1 02/13/2018 6:25pm 02/13/2018 6:39pm Absolute Immature Granulocyte (auto 0.01 x10e3/uL 0-0.1 02/13/2018 6: 25pm 02/13/2018 6:39pm Urine Color YELLOW YELLOW 02/13/2018 3:57pm 02/13/2018 5:04pm Urine Clarity CLEAR CLEAR 02/13/2018 3:57pm 02/13/2018 5:04pm Urine Specific [place] 1.015 1.010-1.025 02/13/2018 3:57pm 2017 5:04pm Urine pH 6.5 5 - 7 02/13/2018 3:57pm 02/13/2018 5:04pm Urine Leukocyte Esterase NEGATIVE NEGATIVE 02/13/2018 3:57pm 2017 5:04pm Urine Nitrite NEGATIVE NEGATIVE 02/13/2018 3:57pm 02/13/2018 5:04pm Urine Protein NEGATIVE NEGATIVE 02/13/2018 3:57pm 02/13/2018 5:04pm Urine Glucose (UA) NEGATIVE NEGATIVE 02/13/2018 3:57pm 02/13/2018 5: 04pm Urine Ketones NEGATIVE NEGATIVE 02/13/2018 3:57pm 02/13/2018 5:04pm Urine Urobilinogen 0.2 mg/dL 0.2 - 1 02/13/2018 3:57pm 02/13/2018 5: 04pm Urine Bilirubin NEGATIVE NEGATIVE 02/13/2018 3:57pm 02/13/2018 5: 04pm Urine Blood NEGATIVE NEGATIVE 02/13/2018 3:57pm 02/13/2018 5:04pm Urine WBC 6-10 /HPF H 0-5 02/13/2018 3:57pm 02/13/2018 5:08pm Urine RBC 0-5 /HPF 0-5 02/13/2018 3:57pm 02/13/2018 5:08pm Urine Bacteria FEW /HPF NONE 02/13/2018 3:57pm 02/13/2018 5:08pm Urine Epithelial Cells FEW /LPF NONE 02/13/2018 3:57pm 02/13/2018 5: 08pm Urine Mucus RARE RARE 02/13/2018 3:57pm 02/13/2018 5:08pm Urine Test NEGATIVE NEGATIVE 02/13/2018 3:57pm 02/13/2018 6 :36pm Sodium Level 141 mmol/L 136-145 02/13/2018 6:25pm 02/13/2018 6:54pm Potassium Level 3.6 mmol/L 3.5-5.1 02/13/2018 6:25pm 02/13/2018 6:54pm Chloride Level 112 mmol/L H 98-107 02/13/2018 6:25pm 02/13/2018 6:54pm Carbon Dioxide Level 18 mmol/L L 22-29 02/13/2018 6:25pm 02/13/2018 6: 54pm Anion Gap 14.6 mmol/L 8-02/13/2018 6:25pm 02/13/2018 6:54pm Blood Urea Nitrogen 15 mg/dL 02-0102/13/2018 6:25pm 02/13/2018 6:54pm Creatinine 0.76 mg/dL 0.57-1.11 02/13/2018 6:25pm 02/13/2018 6:54pm BUN/Creatinine Ratio 20 6-25 02/13/2018 6:25pm 02/13/2018 6:54pm Estimat Glomerular Filtration Rate > 60 ML/MIN 60- 02/13/2018 6:25pm 6:54pm Ranges were taken from the National Kidney Disease Education Program and the National [employer] literature. Reference ranges: 60 or greater: Normal 16-59 (for 3 consecutive months): Chronic kidney disease 15 or less: Kidney failure Glucose Level 110 mg/dL 74-118 02/13/2018 6:25pm 02/13/2018 6:54pm Calcium Level 9.9 mg/dL 8.4-10.2 02/13/2018 6:25pm 02/13/2018 6:54pm Total Bilirubin 0.4 mg/dL 0.2-1.2 02/13/2018 6:25pm 02/13/2018 6:54pm Aspartate Amino Transf (AST/SGOT) 66 IU/L H 5-34 02/13/2018 6:25pm 02/13 6:54pm Alanine Aminotransferase (ALT/SGPT) 169 IU/L H 0-55 02/13/2018 6:25pm 6:54pm Total Protein 7.9 g/dL 6.5-8.1 02/13/2018 6:25pm 02/13/2018 6:54pm Albumin 4.0 g/dL 3.5-5.0 02/13/2018 6:25pm 02/13/2018 6:54pm Globulin 3.9 g/dL H 2.3-3.5 02/13/2018 6:25pm 02/13/2018 6:54pm Albumin/Globulin Ratio 1.0 0.8-2.0 02/13/2018 6:25pm 02/13/2018 6: 54pm Alkaline Phosphatase 139 IU/L 40-150 02/13/2018 6:25pm 02/13/2018 6: 54pm Lipase 12 U/L 8-78 02/13/2018 6:25pm 02/13/2018 6:54pm Microbiology Results Procedure Source Organism/Result Collection Date/Time Result Date/Time Result Status Urine Culture Urine,Catheterized ENTEROCOCCUS FAECIUM-VRE 06/23/2017 11: 25am 06/26/2017 10:41am Final Procedures Procedure Status Date Provider(s) CYSTOURETERO W/STONE REMOVE Completed 06/23/17 SMITA BRUNO MD RPR S/N/AX/GEN/TRNK 2.5CM/< Completed 10/14/17 AYDEN COLLADO MD REPAIR ABDOMEN SKIN, EXTERNAL APPROACH Completed 10/14/17 AYDEN COLLADO MD INSERTION OF INFUSION DEV INTO SUP VENA CAVA, PERC APPROACH Completed SHERINE SOL MD FLUOROSCOPY OF SUP VENA CAVA USING L OSM CONTRAST, GUIDANCE Completed SHERINE SOL MD Computed tomography of chest without contrast Active 12/13/17 AL HYDE MD Ultrasound guidance for vascular access Active 12/13/[address] of abdomen and pelvis without contrast Active 12/14/[address] of abdomen and pelvis without contrast Active 01/12/18 IMMANUEL RANKIN MD Encounters Encounter Location Arrival/Admit Date Discharge/Depart Date Attending Provider Departed Emergency Room [facility] 02/13/18 3:27pm 8:42pm BLADIMIR NAGEL MD Discharged Inpatient [facility] 01/15/18 5:59pm 01/17/18 10:48am RODDY MALAVE MD Discharged Inpatient [facility] 12/11/17 6:56pm 12/19/17 1:30pm AL HYDE MD Departed Emergency Room [facility] 12/06/17 12:04am 12/06 1:20am GERMAN CALDWELL MD Departed Emergency Room [facility] 10/14/17 12:05am 10/14 3:50am AYDEN COLLADO MD [facility]arted [facility] 08/30/17 11:42am 08/30 2:41pm IAN SIM MD Departed Emergency Room [facility] 08/27/17 3:12am 3:40am IMMANUEL POLLOCK MD Registered Emergency Room [facility] 08/27/17 3:00am IMMANUEL POLLOCK MD Registered Emergency Room [facility] 08/27/17 2:16am IMMANUEL POLLOCK MD Registered Surgical Day Care [facility] 06/23/17 8:39am SMITA BRUNO MD
== END 2018-02-27 20:59 | disposition home or self-care (01) ==
LOC: ER 16:52
DX: R10.9 Unspecified abdominal pain (principal); R11.2 Nausea with vomiting, unspecified; N30.90 Cystitis, unspecified without hematuria; Z85.07 Personal history of malignant neoplasm of pancreas
CPT/HCPCS: 36415; 80053; 81001; 81025; 82150; 83690; 85025; 87086; 99283; J0696; J1442; J2550; J7030

== ENCOUNTER 2018-05-14 17:42 | Inpatient (IN) | payer OTHER ==
[~2018-05-14] VITALS: Ht 152.4 cm; Wt 62.3 kg
[~2018-05-14 17:42] MED LIST changes: +CEFDINIR300 MG PO; +PHENERGAN SUPP25 MG RC; +TYLENOL WITH C1 EACH PO
--- OUTSIDE RECORDS SUMMARY | 2018-05-14 17:47 | XMS REPORT | Clinical Summary ---
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 18 ued ciprofloxacin (CIPRO) 500 Take 500 mg by [...] packet (two) times a day. 18 ued acetaminophen-codeine Take 1 tablet by mouth 08/24/19 10/15/19 Discontin (TYLENOL WITH CODEINE #3) every 4 (four) hours as 18 18 ued 300-30 mg per tablet needed. cephalexin (KEFLEX) 500 Take 500 mg by mouth 2 08/24/19 10/15/19 Discontin MG capsule (two) times a day. 18 18 ued amoxicillin-pot Take 1 tablet by mouth 2 14 tablet 0 10/15/19 10/22/19 clavulanate (AUGMENTIN) (two) times a day for [...] Care Team Description 12/08/2017 Emergency Emergency Medicine [facility]na [facility] MD Jessa Generalized abdominal pain (Primary Dx); Flank pain; Renal calculi; Dysuria 10/14/2017 Emergency Emergency Medicine Evelin Perez, Acute UTI (Primary Dx); PA-C Chronic abdominal pain Gray Ha MD 08/28/2017 Emergency General Internal Medicine Camilo Oneil MD Foreign body left in - Connor-Martir Sears MD wound (Primary Dx) 08/29/2017 after 05/13/2017 Social History Tobacco Use Types Packs/Day Years [...] INFLUENZA VACCINE 02/07/2018 Implants Implanted Type 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 HC COMPLETE BLD COUNT STAT 08/28/2017 Results for this W/AUTO DIFF 6:02 PM 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 COMPREHENSIVE METABOLIC STAT 08/28/2017 Results for this PANEL 6:02 PM 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 XR FOREARM 2 VW RIGHT STAT 08/28/2017 Results for this 5:17 PM 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 XR FOREARM 2 VW RIGHT STAT 08/28/2017 Results for this 3:27 PM 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 after 05/13/2017 Results * CT Abdomen Pelvis Wo Contrast (12/08/2017 9:32 PM) Narrative Performed At CT ABDOMEN PELVIS WO CONTRAST HM RADIANT CLINICAL INDICATION:ABDOMINAL PAIN, Flank pain. Hx of Pancreatic cancer [...] exposure while achieving a diagnostic quality image. COMPARISON:CT 09/27/2016. FINDINGS: Mild motion degradation. Lung bases:Dependent subsegmental atelectasis/scarring. Liver:Normal. Gallbladder and biliary:The gallbladder is absent. Clips within the gallbladder fossa. Common bile duct is grossly not dilated. Pancreas:Distal pancreas is atrophic or absent. Spleen:Normal. Gastrointestinal:Large and small bowel are normal in caliber. Appendix is visualized and appears normal. Adrenals:Normal. Kidneys and ureters:3 mm calculi at the inferior pole of the right kidney. No left renal calculi are visualized. No ureteral calculi are visualized. No hydronephrosis. Urinary bladder:No urinary bladder calculi are visualized. Lymph nodes:No enlarged lymph nodes in the abdomen or pelvis. Peritoneum:No ascites or free air. Vascular:Unremarkable, though evaluation of vessel lumens is limited due to lack of IV contrast. Reproductive organs:Uterus is absent. Unremarkable adnexae. Abdominal wall: Partially visualized bilateral breast implants. Bones:Mild degenerative changes. IMPRESSION: Few nonobstructive right renal calculi. No ureteral or urinary bladder calculi are visualized. No hydronephrosis. [facility]-[id number] Procedure Note Interface, Radiology Results Incoming - 12/08/2017 9:55 [...] urinary bladder calculi are visualized. No hydronephrosis. [facility]-[id number] Performing Organization Address City/[facility]/Zipcode Phone Number [place] [phone] [place] [address] * Estimated GFR (12/08/2017 9:12 PM) Only the most recent of 3 results within the time period is included. GFR Non Af Amer >90 mL/min/1.73 m2 [facility] DEPARTMENT OF PATHOLOGY AND GENOMIC MEDICINE GFR Af Amer >90 mL/min/1.73 m2 [facility] DEPARTMENT OF Comment: PATHOLOGY AND Chronic [...] Americans. Specimen Plasma specimen Performing Organization Address City/State/Zipcode Phone Number [facility] DEPARTMENT [address] [address] PATHOLOGY AND GENOMIC MEDICINE * CBC with platelet and differential (12/08/2017 9:12 PM) Only the most recent of 3 results within the time period is included. WBC 3.24 (L) 4.50 - 11.00 k/uL [facility] DEPARTMENT OF PATHOLOGY AND GENOMIC MEDICINE RBC 3.65 (L) 4.20 - 5.50 m/uL [facility] DEPARTMENT OF PATHOLOGY AND GENOMIC MEDICINE HGB 8.9 (L) 12.0 - 16.0 g/dL [facility] DEPARTMENT OF PATHOLOGY AND GENOMIC MEDICINE HCT 28.3 (L) 37.0 - 47.0 % [facility] DEPARTMENT OF PATHOLOGY AND GENOMIC MEDICINE MCV 77.5 (L) 82.0 - 100.0 fL [facility] DEPARTMENT OF PATHOLOGY AND GENOMIC MEDICINE MCH 24.4 (L) 27.0 - 34.0 pg [facility] DEPARTMENT OF PATHOLOGY AND GENOMIC MEDICINE MCHC 31.4 31.0 - 37.0 g/dL [facility] DEPARTMENT OF PATHOLOGY AND GENOMIC MEDICINE RDW - SD 48.8 37.0 - 55.0 fL [facility] DEPARTMENT OF PATHOLOGY AND GENOMIC MEDICINE MPV 10.0 8.8 - 13.2 fL [facility] DEPARTMENT OF PATHOLOGY AND GENOMIC MEDICINE Platelet count 285 150 - 400 k/uL [facility] DEPARTMENT OF PATHOLOGY AND GENOMIC MEDICINE Nucleated RBC 0.00 /100 WBC [facility] DEPARTMENT OF PATHOLOGY AND GENOMIC MEDICINE Neutrophils 36.8 (L) 39.0 - 69.0 % [facility] DEPARTMENT OF PATHOLOGY AND GENOMIC MEDICINE Lymphocytes 47.8 (H) 25.0 - 45.0 % [facility] DEPARTMENT OF PATHOLOGY AND GENOMIC MEDICINE Monocytes 11.4 (H) 0.0 - 10.0 % [facility] DEPARTMENT OF PATHOLOGY AND GENOMIC MEDICINE Eosinophils 3.4 0.0 - 5.0 % [facility] DEPARTMENT OF PATHOLOGY AND GENOMIC MEDICINE Basophils 0.3 0.0 - 1.0 % [facility] DEPARTMENT OF PATHOLOGY AND GENOMIC MEDICINE Immature granulocytes 0.3Comment: "Immature 0.0 - 1.0 % [facility] DEPARTMENT OF granulocytes" (promyelocytes, PATHOLOGY AND myelocytes, metamyelocytes) GENOMIC MEDICINE Specimen Blood Performing Organization Address City/[facility]/Zipcode Phone Number [facility] DEPARTMENT OF [address] [place] [address] PATHOLOGY AND GENOMIC MEDICINE * hCG qualitative, serum screen (12/08/2017 9:12 PM) hCG qualitative, serum NegativeComment: Sensitivity [facility] DEPARTMENT OF of HCG test: 25 mIU/mL PATHOLOGY AND GENOMIC MEDICINE Specimen Blood Performing Organization Address [facility] Phone Number [facility] DEPARTMENT [place] [phone] PATHOLOGY AND GENOMIC MEDICINE * Lipase level (12/08/2017 9:12 PM) Only the most recent of 2 results within the time period is included. Lipase 20 13 - 60 U/L [facility] DEPARTMENT OF PATHOLOGY AND GENOMIC MEDICINE Specimen Plasma specimen Performing Organization Address City/State/Zipcode Phone Number [facility] DEPARTMENT OF [address] [place] [address] PATHOLOGY AND GENOMIC MEDICINE * Comprehensive metabolic panel (12/08/2017 9:12 PM) Only the most recent of 3 results within the time period is included. Sodium 138 135 - 148 mEq/L [facility] DEPARTMENT OF PATHOLOGY AND GENOMIC MEDICINE Potassium 3.9 3.5 - 5.0 mEq/L [facility] DEPARTMENT OF PATHOLOGY AND GENOMIC MEDICINE Chloride 101 98 - 112 mEq/L [facility] DEPARTMENT OF PATHOLOGY AND GENOMIC MEDICINE CO2 24 24 - 31 mEq/L [facility] DEPARTMENT OF PATHOLOGY AND GENOMIC MEDICINE Anion gap 13@ANIO 7 - 15 mEq/L [facility] DEPARTMENT OF PATHOLOGY AND GENOMIC MEDICINE BUN 11 6 - 20 mg/dL [facility] DEPARTMENT OF PATHOLOGY AND GENOMIC MEDICINE Creatinine 0.6 0.5 - 0.9 mg/dL [facility] DEPARTMENT OF PATHOLOGY AND GENOMIC MEDICINE Glucose 98 65 - 99 mg/dL [facility] DEPARTMENT OF PATHOLOGY AND GENOMIC MEDICINE Calcium 9.4 8.3 - 10.2 mg/dL [facility] DEPARTMENT OF PATHOLOGY AND GENOMIC MEDICINE Protein 7.7 6.3 - 8.3 g/dL [facility] DEPARTMENT OF Comment: PATHOLOGY AND [place] GENOMIC MEDICINE 4.6-7.0 g/dL 1 week 4.4-7.6 g/dL 7 months-1year 5.1-7.3 g/dL 1-2 years5.6-7 .5 g/dL >3 years6.0-8 .0 g/dL 18-150 6.3-8.3 g/dL Albumin 3.9 3.5 - 5.0 g/dL [facility] DEPARTMENT OF PATHOLOGY AND GENOMIC MEDICINE A/G ratio 1.0 0.7 - 3.8 [facility] DEPARTMENT OF PATHOLOGY AND GENOMIC MEDICINE Alkaline phosphatase 137 (H) 35 - 104 U/L [facility] DEPARTMENT OF PATHOLOGY AND GENOMIC MEDICINE AST 30 10 - 35 U/L [facility] DEPARTMENT OF PATHOLOGY AND GENOMIC MEDICINE ALT 40 5 - 50 U/L [facility] DEPARTMENT OF PATHOLOGY AND GENOMIC MEDICINE Total bilirubin 0.3 0.0 - 1.2 mg/dL [facility] DEPARTMENT OF PATHOLOGY AND GENOMIC MEDICINE Specimen Plasma specimen Performing Organization Address City/[facility]/Zipcode Phone Number [facility] DEPARTMENT OF [address] [place] [phone] PATHOLOGY AND GENOMIC MEDICINE * Urinalysis screen and microscopy, with reflex to culture (12/08/2017 8:10 PM) Only the most recent of 2 results within the time period is included. Specimen site Clean catch [facility] DEPARTMENT OF PATHOLOGY AND GENOMIC MEDICINE Color, UA Straw [facility] DEPARTMENT OF PATHOLOGY AND GENOMIC MEDICINE Appearance, UA Hazy [facility] DEPARTMENT OF PATHOLOGY AND GENOMIC MEDICINE Specific gravity, UA 1.013 1.001 - 1.035 [facility] DEPARTMENT OF PATHOLOGY AND GENOMIC MEDICINE pH, UA 7.0 5.0 - 8.5 [facility] DEPARTMENT OF PATHOLOGY AND GENOMIC MEDICINE Protein, UA Negative Negative [facility] DEPARTMENT OF PATHOLOGY AND GENOMIC MEDICINE Glucose, UA Negative Negative [facility] DEPARTMENT OF PATHOLOGY AND GENOMIC MEDICINE Ketones, UA Negative Negative [facility] DEPARTMENT OF PATHOLOGY AND GENOMIC MEDICINE Bilirubin, UA Negative Negative [facility] DEPARTMENT OF PATHOLOGY AND GENOMIC MEDICINE Blood, UA Negative Negative [facility] DEPARTMENT OF PATHOLOGY AND GENOMIC MEDICINE Nitrite, UA Negative Negative [facility] DEPARTMENT OF PATHOLOGY AND GENOMIC MEDICINE Urobilinogen, UA <2.0 <2.0 [facility] DEPARTMENT OF PATHOLOGY AND GENOMIC MEDICINE Leukocyte esterase, UA Negative Negative [facility] DEPARTMENT OF PATHOLOGY AND GENOMIC MEDICINE Epithelial cells, UA 12 /HPF [facility] DEPARTMENT OF PATHOLOGY AND GENOMIC MEDICINE WBC, UA 8 (H) 0 - 4 /HPF [facility] DEPARTMENT OF PATHOLOGY AND GENOMIC MEDICINE RBC, UA 1 0 - 5 /HPF [facility] DEPARTMENT OF PATHOLOGY AND GENOMIC MEDICINE Bacteria, UA Moderate (A) None seen [facility] DEPARTMENT OF PATHOLOGY AND GENOMIC MEDICINE Yeast, UA None seen [facility] DEPARTMENT OF PATHOLOGY AND GENOMIC MEDICINE Yeast with pseudohyphae, None seen [facility] DEPARTMENT OF UA PATHOLOGY AND GENOMIC MEDICINE Specimen Urine Performing Organization Address City/[facility]/Zipcode Phone Number [facility] DEPARTMENT OF [address] [place] [phone] PATHOLOGY AND GENOMIC MEDICINE * Gram stain (12/08/2017 8:10 PM) Only the most recent of 2 results within the time period is included. Gram stain result Few WBC's [facility] DEPARTMENT OF Moderate Gram positive rods PATHOLOGY AND Comment: GENOMIC MEDICINE Specimen Information Specimen Source: Urine Specimen Site: Clean catch Specimen Urine Performing Organization Address City/[facility]/Zipcode Phone Number [facility] DEPARTMENT [address] [address] PATHOLOGY AND GENOMIC MEDICINE * Urine culture (12/08/2017 8:10 PM) Only the most recent of 2 results within the time period is included. Urine culture isolate Mixed Gram positive rachele [facility] DEPARTMENT OF 10-2 cfu/ml PATHOLOGY AND (A) GENOMIC MEDICINE Comment: Specimen Information Specimen Source: Urine Specimen Site: Clean catch Specimen Urine Performing Organization Address City/[facility]/Zipcode Phone Number [facility] DEPARTMENT OF [address] [place] [address] PATHOLOGY AND GENOMIC MEDICINE * Amylase level (10/14/2017 11:37 AM) Amylase 45 13 - 73 U/L [facility] DEPARTMENT OF PATHOLOGY AND GENOMIC MEDICINE Specimen Plasma specimen Performing Organization Address [facility] Phone Number [facility] [place] [phone] [place] [address] [place] [address] PATHOLOGY AND GENOMIC MEDICINE * XR Forearm 2 Vw Right (08/28/2017 5:17 PM) Only the most recent of 2 results within the time period is included. Narrative Performed At EXAMINATION:XR FOREARM 2 VW RIGHT [facility] CLINICAL HISTORY:s p wound cleaning. re evaluate for FB COMPARISON:None. IMPRESSION: There is some subcutaneous air adjacent to the distal radius. No metallic foreign body is noted. 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 re evaluate for FB COMPARISON: None. IMPRESSION: There is some subcutaneous air adjacent to the distal radius. No metallic foreign body is noted. [id number] Performing Organization Address [facility] Hospital[facility] Phone Number [facility] [address] [place] [address] after 05/13/2017 Insurance Payer Benefit Subscriber ID Type Phone Address Plan / Group [facility] [employer] xxxxxxxxx HMO/PPO THCARE CHOICE/CHO ICE + [facility] [employer] xxxxxxxxx HMO/PPO THCARE CHOICE/CHO ICE + [facility]/PPO THCARE CHOICE/CHO ICE +
--- OUTSIDE RECORDS SUMMARY | 2018-05-14 17:47 | XMS REPORT | Continuity of Care Document ---
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 Enmelloet Rakennethm Anxiety Active Problem 09/23/2016 Enadriana Quintanam Acute cystitis with hematuria Active Problem 09/23/2016 Rosaura Quintanam Tachycardia Active Diagnosis 08/15/2016 Rosaura Reid Medications Medication Details Route Status Patient Instructions Ordering Provider Order Date Source Cipro 1 tablet Orally Active 500 MG Orally Twice a day [facility] 08/31/2016 Rosaura Reid Pyridium 1 tablet after meals Orally Active 200 MG Orally Three times a day [facility] 08/12/2016 [facility] Zyvox 1 tablet Orally Active 600 MG Orally every 12 hrs [facility] 07/13/2016 Rosaura Quintana Acetaminophen-Codeine #3 1 tablet as needed Orally Active 300- 30 MG Orally every 6 hrs [facility] 06/15/2016 Rosaura Quintana Promethazine HCl 1 tablet as needed Orally Active 12.5 MG Orally every 6 hrs [facility] 06/15/2016 [facility] Alprazolam 1/2 half tablet Orally Active 1 MG Orally Twice a day [facility] Carvedilol 1 tablet Orally Active 12.5 MG Orally twice a day [facility] Potassium Citrate ER not defined Orally Active 10 MEQ (1080 MG) Orally twice a day [facility] Bactrim 2 tablets Orally Active 400-80 MG Orally Once a day [facility] Pyridium 1 tablet after meals Orally Active 200 MG Orally Three times a day [facility] Levaquin 1 tablet Orally Active 500 MG Orally Once a day [facility] Rosaura Quintana Allergies, Adverse Reactions, Alerts Substance Category Reaction Severity Reaction type Status Date Reported Comments Source Decadron Adverse Reaction Info Not Available Adverse Reaction Active 09/21/[address] Contrast Adverse Reaction Info Not Available Adverse Reaction Active 09/21/2016 Enayet Rahim Zofran Adverse Reaction Info Not Available Adverse Reaction Active 09/21/2016 Enayet Rahim Ultram Adverse Reaction Info Not Available Adverse Reaction Active 09/21/2016 Enayet Rahim Morphine Sulfate Adverse Reaction Info Not Available Adverse Reaction Active 09/21/2016 Enayet Rahim Ketorolac Tromethamine Adverse Reaction Info Not Available Adverse Reaction Active 09/21/2016 Enayet Rahim Immunizations Immunization Date Given Site Status Last Updated Comments Source Results Order Name Results Value Reference Range Date Interpretation Comments Source Vital Signs Vital Sign Value Date Comments Source Weight 140 09/21/2016 Enayet Rahim Height 60 09/21/2016 Enayet Rahim Temperature Oral (F) 98.2 F 09/21/2016 Enayet Rahim Diastolic (mm Hg) 80 09/21/2016 Enayet Rahim Systolic (mm Hg) 134 09/21/2016 Enayet Rahim Weight 139 08/31/2016 Enayet Rahim Height 60 08/31/2016 Enayet Rahim Temperature Oral (F) 98.5 F 08/31/2016 Enayet Rahim Diastolic (mm Hg) 75 08/31/2016 Enayet Rahim Systolic (mm Hg) 113 08/31/2016 Enayet Rahim Weight 141 08/05/2016 Enayet Rahim Height 60 08/05/2016 Enayet Rahim Temperature Oral (F) 98.1 F 08/05/2016 Enayet Rahim Diastolic (mm Hg) 78 08/05/2016 Enayet Rahim Systolic (mm Hg) 115 08/05/2016 Enayet Rahim Weight 147 06/15/2016 Enayet Rahim Height 60 06/15/2016 Enayet Rahim Temperature Oral (F) 98.8 F 06/15/2016 Enayet Rahim Diastolic (mm Hg) 87 06/15/2016 Enayet Rahim Systolic (mm Hg) 123 06/15/2016 Enayet Rahim Encounters Location Location Details Encounter Type Encounter Number Reason For Visit Attending Provider ADM Date DC Date Status Source Rosaura Reid MD, PA Sick Visit [id number] 06/15/2016 06/15/2016 Rosaura Reid MD, PA Sick Visit [id number] 06/15/2016 06/15/2016 Rosaura Reid MD, PA Sick Visit [id number] 06/15/2016 06/15/2016 Rosaura Reid MD, PA Sick Visit [id number] 06/15/2016 06/15/2016 Rosaura Reid MD, PA Sick Visit [id number] 06/15/2016 06/15/2016 Rosaura Reid MD, PA d/c from hospital pt needed refill dr neha correa [id number] 07/13/2016 07/13/2016 Rosaura Reid MD, PA d/c from hospital pt needed refill dr neha correa [id number] 07/13/2016 07/13/2016 Rosaura Ried MD, PA d/c from hospital pt needed refill dr neha correa [id number] 07/13/2016 07/13/2016 Rosaura Reid MD, PA d/c from hospital pt needed refill dr neha correa [id number] 07/13/2016 07/13/2016 Rosaura Reid MD, PA Sick Visit [id number] 08/05/2016 08/05/2016 Rosaura Reid MD, PA Sick Visit [id number] 08/05/2016 08/05/2016 Rosaura Reid MD, PA Sick Visit [id number] 08/05/2016 08/05/2016 Rosaura Reid MD, PA Sick Visit [id number] 08/31/2016 08/31/2016 Rosaura Reid MD, PA Sick Visit [id number] 08/31/2016 08/31/2016 Rosaura Reid MD, PA kidney stones [id number] 09/02/2016 09/02/2016 Rosaura Reid Procedures Procedure Code Date Perfomer Comments Source
[2018-05-14] MEDS ORDERED: SODIUM CHLORIDE 0.9% 1000ML 1,000 ML IV STA (17:56)
[2018-05-14] MEDS ORDERED: MORPHINE SULFATE INJ 4 MG/ML INJ IV STA (17:56)
[2018-05-14] MEDS ORDERED: ONDANSETRON HCL INJ 2 MG/ML VIAL IV STA (17:56)
[2018-05-14] MEDS ORDERED: HYDROMORPHONE 2MG/ML 2 MG/ML ML IV ONE (19:05)
[2018-05-14] MEDS ORDERED: PROMETHAZINE 12.5MG/ NACL 0.9% 12.5 MG/50 ML BAG IV ONE (19:05)
[2018-05-14 19:18] LABS: BASOPHILS % 0.4 % (0.0-1.0); EOSINOPHILS # (AUTO) 0.3 (0.0-0.4); EOSINOPHILS % 6.2 % (0.0-6.0); HEMATOCRIT 31.5 % (34.2-44.1); HEMOGLOBIN 9.9 g/dL (12.0-16.0); LYMPHOCYTES # (AUTO) 1.9 (1.0-3.2); LYMPHOCYTES % 40.9 % (18.0-39.1); MEAN CORPUSCULAR HEMOGLOBIN 27.3 pg (28-32); MEAN CORPUSCULAR HGB CONC 31.4 g/dL (31-35); MEAN CORPUSCULAR VOLUME 86.8 fL (81-99); MONOCYTES # (AUTO) 0.5 (0.2-0.8); MONOCYTES % 10.9 % (4.4-11.3); NEUTROPHILS # (AUTO) 1.9 (2.1-6.9); NEUTROPHILS % 41.4 % (38.7-80.0); PLATELET COUNT 301 x10e3/uL (140-360); RED BLOOD COUNT 3.63 x10e6/uL (3.6-5.1); RED CELL DISTRIBUTION WIDTH 17.1 % (11.7-14.4)
[2018-05-14 19:25] LABS: INR 0.95; PROTHROMBIN TIME 13.6 seconds (11.9-14.5)
[2018-05-14 19:26] LABS: PARTIAL THROMBOPLASTIN TIME 30.6 seconds (23.8-35.5)
[2018-05-14 19:27] LABS: CLARITY,URINE SL CLOUDY (CLEAR); COLOR,URINE ORANGE (YELLOW); LEUKOCYTE ESTERASE ,URINE TRACE (NEGATIVE); NITRITE,URINE POSITIVE (NEGATIVE); PROTEIN,URINE DIPSTICK 1+ (NEGATIVE)
[2018-05-14 19:28] LABS: BILIRUBIN,URINE NEGATIVE (NEGATIVE); KETONES,URINE NEGATIVE (NEGATIVE); URINE UROBILINOGEN 1 mg/dL (0.2 - 1)
[2018-05-14 19:35] LABS: ALANINE AMINOTRANSFERASE 24 IU/L (0-55); ALBUMIN 3.8 g/dL (3.5-5.0); ALBUMIN/GLOBULIN RATIO 1.3 (0.8-2.0); ALKALINE PHOSPHATASE 91 IU/L (40-150); AMYLASE 30 U/L (25-125); ANION GAP 12.6 mmol/L (8-16); BLOOD UREA NITROGEN 9 mg/dL (7-26); BUN/CREATININE RATIO 13 (6-25); CALCIUM 9.1 mg/dL (8.4-10.2); CARBON DIOXIDE 23 mmol/L (22-29); CHLORIDE 109 mmol/L (98-107); CREATININE, SERUM 0.68 mg/dL (0.57-1.11); EST GLOMERULAR FILTRATION RATE > 60 ML/MIN (60-); GLUCOSE 109 mg/dL (74-118); LIPASE 7 U/L (8-78); POTASSIUM 3.6 mmol/L (3.5-5.1); SODIUM 141 mmol/L (136-145)
[2018-05-14 19:36] LABS: BACTERIA,URINE MANY /HPF; EPITHELIAL CELLS,URINE FEW /LPF
[2018-05-14] MEDS ORDERED: CEFTRIAXONE SOD 1 GM VIAL IV ONE (20:30)
--- NOTE | 2018-05-14 20:44 | Diagnostic Imaging Report ---
ADDENDUM #1 The following addendum is being made to comply with coding criteria, and does not substantially change the findings or recommendations of the original report All CT scans are performed using radiation dose reduction techniques. Technical factors are evaluated and adjusted to ensure appropriate moderation of exposure. Automated dose management technology is applied to adjust the radiation dose to minimize exposure while achieving a diagnostic-quality image. Signed by: Dr. Andrae Magallanes M.D. on 05/21/2018 1:27 PM ORIGINAL REPORT EXAM: CT Abdomen and Pelvis WITHOUT contrast INDICATION: Abdominal pain. Pancreatic cancer. COMPARISON: 01/12/2018 TECHNIQUE: Abdomen and pelvis were scanned utilizing a multidetector helical scanner from the lung base to the pubic symphysis without administration of IV contrast. Absence of intravenous contrast decreases sensitivity for detection of focal lesions and vascular pathology. Coronal and sagittal reformations were obtained. Routine protocol was performed. IV CONTRAST: None. ORAL CONTRAST: Gastrografin RADIATION DOSE: Total DLP: 327.75 mGy*cm Estimated effective dose: (DLP x 0.015 x size factor) mSv COMPLICATIONS: None FINDINGS: LOWER THORAX: No consolidations LIVER: No masses BILIARY: Cholecystectomy. No ductal dilation. SPLEEN: No masses PANCREAS: Limited evaluation without IV contrast. Atrophy of the body and tail compared to the head. ADRENALS: No nodules RIGHT KIDNEY: There are two, 3 mm stones in the inferior pole of the right kidney, stable. No ureteral stones. No hydronephrosis. LEFT KIDNEY: Several punctate nonobstructing left renal stones. GI TRACT: No wall thickening or obstruction. VESSELS: No abdominal aortic aneurysm. Several upper abdominal collateral vessels. PERITONEUM/RETROPERITONEUM: No free air or fluid. There are a few coarse calcifications in the left abdomen. LYMPH NODES: No lymphadenopathy REPRODUCTIVE ORGANS: The uterus is not visualized. No adnexal masses. BLADDER: Normal SOFT TISSUES: Normal BONES: No suspicious bone lesions. IMPRESSION: 1. Indistinct pancreatic head and atrophy of the body and tail likely related to patient's known pancreatic cancer. This is not evaluated on this noncontrast exam. 2. Nonspecific coarse calcifications in the left abdomen. 3. Punctate nonobstructing right and left renal stones. Signed by: Dr. Andrae Magallanes M.D. on 05/14/2018 8:39 PM
[2018-05-14] MEDS ORDERED: HYDROMORPHONE 2MG/ML 2 MG/ML ML IV PRN (21:15)
[2018-05-14] MEDS: HYDROMORPHONE 2MG/ML 2 MG/ML ML IV PRN (21:30)
[2018-05-14] MEDS: PROMETHAZINE 12.5MG/ NACL 0.9% 12.5 MG/50 ML BAG IV PRN (21:30)
[2018-05-14] MEDS ORDERED: PROMETHAZINE 12.5MG/ NACL 0.9% 12.5 MG/50 ML BAG IV PRN (21:45)
--- OUTSIDE RECORDS SUMMARY | 2018-05-14 21:56 | XMS REPORT | Clinical Summary ---
Author Author [facility] Organization [facility] Address Unknown Phone Unavailable Care Team Providers Care Form Tamper Operator Name Role Phone Asked, No Pcp PCP [...] Team Description 12/08/2017 Emergency Emergency Medicine [place] [facility] MD Jessa Generalized abdominal pain (Primary Dx); [...] INFLUENZA VACCINE 02/07/2018 Implants Implanted Type Area Hospitality Specialist Device Expiration Model / Identifier Date [...] STAT 08/28/2017 Results for this 6:02 PM STOCK DRIER TENDER procedure are in the results section. HC COMPLETE BLD COUNT STAT 08/28/2017 Results for this W/AUTO DIFF 6:02 PM STOCK DRIER TENDER procedure are in the results section. COMPREHENSIVE METABOLIC STAT 08/28/2017 Results for this PANEL 6:02 PM STOCK DRIER TENDER procedure are in the results section. XR FOREARM 2 VW RIGHT STAT 08/28/2017 Results for this 5:17 PM STOCK DRIER TENDER procedure are in the results section. XR FOREARM 2 VW RIGHT STAT 08/28/2017 Results for this 3:27 PM STOCK DRIER TENDER procedure are in the results section. after [...] urinary bladder calculi are visualized. No hydronephrosis. [id number] Procedure Note Interface, Radiology Results Incoming - [...] urinary bladder calculi are visualized. No hydronephrosis. [id number] Performing Organization Address City/[facility]/Zipcode Phone Number [place] [phone] [place] [address] * Estimated GFR (12/08/2017 9:12 PM) Only the most recent of 3 results within the time period is included. GFR Non Af Amer >90 mL/min/1.73 m2 [facility] DEPARTMENT OF PATHOLOGY AND GENOMIC MEDICINE GFR Af Amer >90 mL/min/1.73 m2 [facility] DEPART[facility] OF Comment: PATHOLOGY AND Chronic [...] specimen Performing Organization Address City/State/Zipcode Phone Number [facility] [address] [address] PATHOLOGY AND GENOMIC MEDICINE * CBC with platelet and differential (12/08/2017 9:12 PM) Only the most recent of 3 results within the time period is included. WBC 3.24 (L) 4.50 - 11.00 k/uL [facility] DEPARTMENT OF PATHOLOGY AND GENOMIC MEDICINE RBC 3.65 (L) 4.20 - 5.50 m/uL [facility] DEPARTMENT OF PATHOLOGY AND GENOMIC MEDICINE HGB 8.9 (L) 12.0 - 16.0 g/dL [facility] DEPARTMENT OF PATHOLOGY AND GENOMIC MEDICINE HCT 28.3 (L) 37.0 - 47.0 % [facility] DEPARTMENT OF PATHOLOGY AND GENOMIC MEDICINE MCV 77.5 (L) 82.0 - 100.0 fL [facility] DEPARTMENT OF PATHOLOGY AND GENOMIC MEDICINE MCH 24.4 (L) 27.0 - 34.0 pg [facility] DEPARTMENT OF PATHOLOGY AND GENOMIC MEDICINE MCHC 31.4 31.0 - 37.0 g/dL [facility] DEPARTMENT OF PATHOLOGY AND GENOMIC MEDICINE RDW - SD 48.8 37.0 - 55.0 fL [facility] DEPARTMENT OF PATHOLOGY AND GENOMIC MEDICINE MPV 10.0 8.8 - 13.2 fL [facility] DEPARTMENT OF PATHOLOGY AND GENOMIC MEDICINE Platelet count 285 150 - 400 k/uL [facility] DEPARTMENT OF PATHOLOGY AND GENOMIC MEDICINE Nucleated RBC 0.00 /100 WBC [facility] DEPARTMENT OF PATHOLOGY AND GENOMIC MEDICINE Neutrophils 36.8 (L) 39.0 - 69.0 % [facility] DEPARTMENT OF PATHOLOGY AND GENOMIC MEDICINE Lymphocytes 47.8 (H) 25.0 - 45.0 % [facility] DEPARTMENT OF PATHOLOGY AND GENOMIC MEDICINE Monocytes 11.4 (H) 0.0 - 10.0 % [facility] DEPARTMENT OF PATHOLOGY AND GENOMIC MEDICINE Eosinophils 3.4 0.0 - 5.0 % [facility] DEPARTMENT OF PATHOLOGY AND GENOMIC MEDICINE Basophils 0.3 0.0 - 1.0 % [facility] DEPARTMENT OF PATHOLOGY AND GENOMIC MEDICINE Immature granulocytes 0.3Comment: "Immature 0.0 - 1.0 % [facility] DEPART[facility] OF granulocytes" (promyelocytes, PATHOLOGY AND myelocytes, metamyelocytes) GENOMIC MEDICINE Specimen Blood Performing Organization Address City/[facility]/Zipcode Phone Number [facility] DEPARTMENT OF [address] [place] [address] PATHOLOGY AND GENOMIC MEDICINE * hCG qualitative, serum screen (12/08/2017 9:12 PM) hCG qualitative, serum NegativeComment: Sensitivity [facility] DEPARTMENT OF of HCG test: 25 mIU/mL PATHOLOGY AND GENOMIC MEDICINE Specimen Blood Performing Organization Address [facility] Cent[facility]ode Phone Number [facility] [place] [phone] PATHOLOGY AND GENOMIC MEDICINE * Lipase level (12/08/2017 9:12 PM) Only the most recent of 2 results within the time period is included. Lipase 20 13 - 60 U/L [facility] DEPARTMENT OF PATHOLOGY AND GENOMIC MEDICINE Specimen Plasma specimen Performing Organization Address City/State/Zipcode Phone Number [facility] DEPARTMENT OF [address] [place] [address] PATHOLOGY AND GENOMIC MEDICINE * Comprehensive metabolic panel (12/08/2017 9:12 PM) Only the most recent of 3 results within the time period is included. Sodium 138 135 - 148 mEq/L [facility] DEPARTMENT OF PATHOLOGY AND GENOMIC MEDICINE Potassium 3.9 3.5 - 5.0 mEq/L [facility] DEPARTMENT OF PATHOLOGY AND GENOMIC MEDICINE Chloride 101 98 - 112 mEq/L [facility] DEPARTMENT OF PATHOLOGY AND GENOMIC MEDICINE CO2 24 24 - 31 mEq/L [facility] DEPARTMENT OF PATHOLOGY AND GENOMIC MEDICINE Anion gap 13@ANIO 7 - 15 mEq/L [facility] DEPARTMENT OF PATHOLOGY AND GENOMIC MEDICINE BUN 11 6 - 20 mg/dL [facility] DE[facility]MENT OF PATHOLOGY AND GENOMIC MEDICINE Creatinine 0.6 0.5 - 0.9 mg/dL [facility] DE[facility]MENT OF PATHOLOGY AND GENOMIC MEDICINE Glucose 98 65 - 99 mg/dL [facility] DEPARTMENT OF PATHOLOGY AND GENOMIC MEDICINE Calcium 9.4 8.3 - 10.2 mg/dL [facility] DEPARTMENT OF PATHOLOGY AND GENOMIC MEDICINE Protein 7.7 6.3 - 8.3 g/dL [facility] DEPARTMENT OF Comment: PATHOLOGY AND [place] GENOMIC MEDICINE 4.6-7.0 g/dL 1 week 4.4-7.6 g/dL 7 months-1year 5.1-7.3 g/dL 1-2 years5.6-7 .5 g/dL >3 years6.0-8 .0 g/dL 18-150 6.3-8.3 g/dL Albumin 3.9 3.5 - 5.0 g/dL [facility] DEPARTMENT OF PATHOLOGY AND GENOMIC MEDICINE A/G ratio 1.0 0.7 - 3.8 [facility] DEPART[facility] OF PATHOLOGY AND GENOMIC MEDICINE Alkaline phosphatase 137 (H) 35 - 104 U/L [facility] DEPARTMENT OF PATHOLOGY AND GENOMIC MEDICINE AST 30 10 - 35 U/L [facility] DEPARTMENT OF PATHOLOGY AND GENOMIC MEDICINE ALT 40 5 - 50 U/L [facility] DEPARTMENT OF PATHOLOGY AND GENOMIC MEDICINE Total bilirubin 0.3 0.0 - 1.2 mg/dL [facility] DEPARTMENT OF PATHOLOGY AND GENOMIC MEDICINE Specimen Plasma specimen Performing Organization Address City/[facility]/Zipcode Phone Number [facility] DEPARTMENT OF [address] [place] [phone] PATHOLOGY AND GENOMIC MEDICINE * Urinalysis screen and microscopy, with reflex to culture (12/08/2017 8:10 PM) Only the most recent of 2 results within the time period is included. Specimen site Clean catch [facility] DEPARTMENT OF PATHOLOGY AND GENOMIC MEDICINE Color, UA Straw [facility] DEPARTMENT OF PATHOLOGY AND GENOMIC MEDICINE Appearance, UA Hazy [facility] DEPARTMENT OF PATHOLOGY AND GENOMIC MEDICINE Specific gravity, UA 1.013 1.001 - 1.035 [facility] DEPARTMENT OF PATHOLOGY AND GENOMIC MEDICINE pH, UA 7.0 5.0 - 8.5 [facility] DEPARTMENT OF PATHOLOGY AND GENOMIC MEDICINE Protein, UA Negative Negative [facility] DEPARTMENT OF PATHOLOGY AND GENOMIC MEDICINE Glucose, UA Negative Negative [facility] DE[facility]MENT OF PATHOLOGY AND GENOMIC MEDICINE Ketones, UA Negative Negative [facility] DEPARTMENT OF PATHOLOGY AND GENOMIC MEDICINE Bilirubin, UA Negative Negative [facility] DEPARTMENT OF PATHOLOGY AND GENOMIC MEDICINE Blood, UA Negative Negative [facility] DEPARTMENT OF PATHOLOGY AND GENOMIC MEDICINE Nitrite, UA Negative Negative [facility] DEPARTMENT OF PATHOLOGY AND GENOMIC MEDICINE Urobilinogen, UA <2.0 <2.0 [facility] DEPARTMENT OF PATHOLOGY AND GENOMIC MEDICINE Leukocyte esterase, UA Negative Negative [facility] DEPARTMENT OF PATHOLOGY AND GENOMIC MEDICINE Epithelial cells, UA 12 /HPF [facility] DEPARTMENT OF PATHOLOGY AND GENOMIC MEDICINE WBC, UA 8 (H) 0 - 4 /HPF [facility] DEPARTMENT OF PATHOLOGY AND GENOMIC MEDICINE RBC, UA 1 0 - 5 /HPF [facility] DEPARTMENT OF PATHOLOGY AND GENOMIC MEDICINE Bacteria, UA Moderate (A) None seen [facility] DEPARTMENT OF PATHOLOGY AND GENOMIC MEDICINE Yeast, UA None seen [facility] DEPARTMENT OF PATHOLOGY AND GENOMIC MEDICINE Yeast with pseudohyphae, None seen [facility] DE[facility] OF UA PATHOLOGY AND GENOMIC MEDICINE Specimen Urine Performing Organization Address City/[facility]/Zipcode Phone Number [facility] DEPARTMENT OF [address] [place] [phone] PATHOLOGY AND GENOMIC MEDICINE * Gram stain (12/08/2017 8:10 PM) Only the most recent of 2 results within the time period is included. Gram stain result Few WBC's [facility] DEPARTMENT OF Moderate Gram positive rods PATHOLOGY AND Comment: GENOMIC MEDICINE Specimen Information Specimen Source: Urine Specimen Site: Clean catch Specimen Urine Performing Organization Address City/[facility]/Zipcode Phone Number [facility] [address] [address] PATHOLOGY AND GENOMIC MEDICINE * Urine culture (12/08/2017 8:10 PM) Only the most recent of 2 results within the time period is included. Urine culture isolate Mixed Gram positive rachele [facility] DEPARTMENT OF 10-2 cfu/ml PATHOLOGY AND (A) GENOMIC MEDICINE Comment: Specimen Information Specimen Source: Urine Specimen Site: Clean catch Specimen Urine Performing Organization Address City/[facility]/Zipcode Phone Number [facility] DEPARTMENT OF [address] [place] [address] PATHOLOGY AND GENOMIC MEDICINE * Amylase level (10/14/2017 11:37 AM) Amylase 45 13 - 73 U/L [facility] DEPARTMENT OF PATHOLOGY AND GENOMIC MEDICINE Specimen Plasma specimen Performing Organization Address [facility] Centercode Phone Number [facility] [place] [id number] [place] [address] [place] [address] PATHOLOGY AND GENOMIC MEDICINE * XR Forearm 2 Vw Right (08/28/2017 5:17 PM) Only the most recent of 2 results within the time period is included. Narrative Performed At EXAMINATION:XR FOREARM 2 VW RIGHT RADIANT CLINICAL HISTORY:s p wound cleaning. re evaluate for FB COMPARISON:None. IMPRESSION: There is some subcutaneous air adjacent to the distal radius. No metallic foreign body is noted. [id number] Procedure Note Hm Interface, Radiology Results Incoming - 08/28/2017 5:48 PM STOCK DRIER TENDER EXAMINATION: XR FOREARM 2 VW RIGHT CLINICAL HISTORY: s p wound cleaning. re evaluate for FB COMPARISON: None. IMPRESSION: There is some subcutaneous air adjacent to the distal radius. No metallic foreign body is noted. [id number] Performing Organization Address [facility] Centercoil Phone Number [facility] [address] [place] [address] after 05/13/2017 Insurance Payer Benefit Subscriber ID Type Phone Address Plan / Group [facility] [employer] xxxxxxxxx HMO/PPO THCARE CHOICE/CHO ICE + [facility] [employer] xxxxxxxxx HMO/PPO THCARE CHOICE/CHO ICE + [facility]/PPO THCARE CHOICE/CHO ICE +
[2018-05-14] MEDS: SODIUM CHLORIDE 0.9% 1000ML 1,000 ML IV SCH (22:26)
[2018-05-14 23:45] VITALS: BP 123/71
[2018-05-14 23:59] VITALS: BP 123/75
[2018-05-15] MEDS: HYDROMORPHONE 2MG/ML 2 MG/ML ML IV PRN ×8 (00:43→23:58)
[2018-05-15] MEDS ORDERED: HYDROCODON-ACE1 EAC9 PO (01:10)
[2018-05-15] MEDS ORDERED: AMBIEN CR12.5 MG PO (01:10)
[2018-05-15] MEDS ORDERED: DILAUDID2 MG PO (01:10)
[2018-05-15] MEDS: PROMETHAZINE 12.5MG/ NACL 0.9% 12.5 MG/50 ML BAG IV PRN ×5 (01:30→23:59)
[2018-05-15 04:00] VITALS: BP 130/67
[2018-05-15 07:24] VITALS: BP 146/70
[2018-05-15] MEDS ORDERED: CEFTRIAXONE SOD 1 GM VIAL IV SCH (08:00)
[2018-05-15] MEDS: SODIUM CHLORIDE 0.9% 1000ML 1,000 ML IV SCH ×3 (08:15→17:33)
[2018-05-15 08:30] VITALS: BP 146/70
--- NOTE | 2018-05-15 10:56 | History and Physical ---
CHIEF COMPLAINT: Abdominal pain. HPI: Ms. Rivas is a 37-year-old female. She has multiple admissions here with chronic pain as she was told that she has chronic pancreatitis. The last admission was in March of 2018. She has been coming here for almost 2-3 years with similar complaints. She reports that she was diagnosed with chronic pancreatitis. She has never had any history of alcohol use. She never follows up with a regular doctor here. She sees Dr. Carlos from [facility]. She was last admitted by Dr. Cruz. She has recently been diagnosed with pancreatic cancer in October of 2017. She reports that she has chronic abdominal pain that progressively gets worse and she is now having nausea and vomiting. She came to the emergency room. REVIEW OF SYSTEMS GENERAL: Denies any fever or chills. HEENT: Head: Denies any head trauma. Denies any earache. CV: Denies any chest pain. RESPIRATORY: Denies any shortness of breath. The rest of the review of systems are negative except as in HPI. PAST MEDICAL HISTORY: Chronic pain syndrome, recurrent UTI, medullary sponge kidneys. FAMILY AND SOCIAL HISTORY: She does not smoke. Does not drink. PAST SURGICAL HISTORY: Cholecystectomy, hysterectomy, right Port-A-Cath, breast augmentation, tummy tuck, bladder sling, surgical lithotripsy. She has not worked in 13 years. PHYSICAL EXAMINATION VITAL SIGNS: Temperature 97.8, pulse of 88, blood pressure 146/70, respiratory rate of 18. HEENT: Head is atraumatic and normocephalic. NECK: Supple. CHEST: Clear to auscultation bilaterally. No wheezing. HEART: S1 and S2 audible. ABDOMEN: Soft and nontender. EXTREMITIES: No peal edema. NEUROLOGIC: Awake and alert. No focal neurologic deficit. LABS: UA showing positive nitrites and 6-10 wbcs. Chemistry: Sodium 141, potassium 3.6, BUN 9, creatinine 0.68. White count of 4.6, hemoglobin 9.9 and platelets 301,000. CT of the abdomen and pelvis shows findings suggestive of chronic pancreatitis and pancreatic cancer. ASSESSMENT AND PLAN: Ms. Rivas is a 37-year-old female with adenocarcinoma of the pancreas and chronic abdominal pain. CURRENT PROBLEMS 1. Acute worsening of chronic abdominal pain due to chronic pancreatitis. 2. Adenocarcinoma of the pancreas. 3. 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 4. History of medullary sponge kidneys. PLAN 1. Continue the patient on IV hydration. 2. IV Dilaudid and pain management consult. 3. Dr. Gómez consulted for evaluation of UTI with resistant organisms. 4. IV analgesics for pain control. Job#: [id number] RI
[2018-05-15] MEDS ORDERED: LINEZOLID 600 MG TAB PO SCH (11:00)
[2018-05-15 11:25] VITALS: BP 114/63
[2018-05-15 15:28] VITALS: BP 125/66
--- NOTE | 2018-05-15 16:08 | Consultation ---
DATE OF CONSULTATION: This is a well known to me patient from previous admission. The patient has been having multiple admissions to the hospital for UTI. Recently, was diagnosed with pancreatic cancer and she has been seen by an MD in [facility]. The patient comes in this time with urgency, frequency and suprapubic pain. The patient also has fever and chills. She came to emergency room. The patient has history of pancreatic cancer according to her. She is going to have surgery. The patient is on chemotherapy. The last one was on April 09, 2018, she is saying. She is currently laying in bed comfortably, but she says she was in severe pain earlier. She was having urgency, frequency, fever, and chills. PAST MEDICAL HISTORY: Chronic pain syndrome, recurrent UTI, medullary sponge kidneys, pancreatic cancer. PAST SURGICAL HISTORY: Port-A-Cath. ALLERGIES: FENTANYL, IODINE, MORPHINE, AND TRAMADOL. SOCIAL HISTORY: She denies smoking, drug abuse or alcohol abuse. FAMILY HISTORY: Noncontributory. LABORATORY DATA: White count 4.67, hemoglobin 9.9. Her sodium is 141, potassium 3.6. Urine culture is gram-negative rods. The patient is known to have a history of MDR before. Also, history of VRE and E. coli ESBL. The patient is admitted and infectious disease was consulted. She is currently laying in bed comfortably, but as mentioned above she was complaining of severe pain earlier. REVIEW OF SYSTEMS HEENT: Negative. PULMONARY: Negative. : As above. GI: Negative. SKIN: No rash. PHYSICAL EXAMINATION GENERAL: She is currently alert and oriented. Does not seem to be in acute distress. VITALS: Stable. Currently afebrile. HEENT: She is not icteric. NECK: Supple. No JVD. No thyromegaly. CHEST: Clear bilaterally. HEART: S1 and S2. No murmur. ABDOMEN: Soft. Bowel sounds present. EXTREMITIES: No edema. SKIN: No rash. IMPRESSION 1. The patient has urinary tract infection: Per the patient, she had fever and chills, suprapubic pain. Urine culture is showing gram-negative rods. Will put her on meropenem since she is known to have a history of multidrug-resistant. Adjust after availability of culture and sensitivity. Agree with intravenous fluids. 2. Chronic pain syndrome. 3. History of pancreatic cancer: She has an appointment with her doctor some time next week to discuss surgery and options. Will follow with you. Job#: [id number] RAMOS
[2018-05-15 20:00] VITALS: BP 127/73
[2018-05-15] MEDS ORDERED: MEROPENEM 500 MG VIAL ONE (22:28)
[2018-05-15] MEDS ORDERED: SODIUM CHLORIDE 0.9% 50ML 50 ML ONE (22:30)
[2018-05-15] MEDS: MEROPENEM 500MG 500 MG in SODIUM CHLORIDE 0.9% 50ML 50 ML IV SCH (22:35)
[2018-05-16] VITALS (11 sets, daily range): BP systolic 115–158; BP diastolic 57–75
[2018-05-16] MEDS: HYDROMORPHONE 2MG/ML 2 MG/ML ML IV PRN ×7 (02:59→22:01)
[2018-05-16] MEDS: SODIUM CHLORIDE 0.9% 1000ML 1,000 ML IV SCH ×4 (04:26→23:33)
[2018-05-16] MEDS ORDERED: MEROPENEM 500 MG VIAL ONE (06:16)
[2018-05-16] MEDS: MEROPENEM 500MG 500 MG in SODIUM CHLORIDE 0.9% 50ML 50 ML IV SCH (06:25)
[2018-05-16] MEDS: PROMETHAZINE 12.5MG/ NACL 0.9% 12.5 MG/50 ML BAG IV PRN ×3 (06:25→18:50)
[2018-05-16] MEDS: LINEZOLID 600 MG/D5W 300ML 300 ML IV SCH ×2 (09:33→20:51)
[2018-05-16] MEDS: CEFTRIAXONE SOD 1 GM VIAL IV SCH ×2 (11:45→23:20)
[2018-05-17] VITALS (8 sets, daily range): BP systolic 110–137; BP diastolic 60–86
[2018-05-17] MEDS: PROMETHAZINE 12.5MG/ NACL 0.9% 12.5 MG/50 ML BAG IV PRN ×3 (01:02→20:05)
[2018-05-17] MEDS: HYDROMORPHONE 2MG/ML 2 MG/ML ML IV PRN ×4 (01:17→10:50)
[2018-05-17 05:24] LABS: BASOPHILS % 0.3 % (0.0-1.0); EOSINOPHILS # (AUTO) 0.3 (0.0-0.4); EOSINOPHILS % 7.5 % (0.0-6.0); HEMATOCRIT 32.3 % (34.2-44.1); HEMOGLOBIN 10.3 g/dL (12.0-16.0); LYMPHOCYTES # (AUTO) 1.6 (1.0-3.2); LYMPHOCYTES % 41.6 % (18.0-39.1); MEAN CORPUSCULAR HEMOGLOBIN 26.8 pg (28-32); MEAN CORPUSCULAR HGB CONC 31.9 g/dL (31-35); MEAN CORPUSCULAR VOLUME 84.1 fL (81-99); MONOCYTES # (AUTO) 0.4 (0.2-0.8); MONOCYTES % 9.7 % (4.4-11.3); NEUTROPHILS # (AUTO) 1.5 (2.1-6.9); NEUTROPHILS % 40.9 % (38.7-80.0); PLATELET COUNT 286 x10e3/uL (140-360); RED BLOOD COUNT 3.84 x10e6/uL (3.6-5.1); RED CELL DISTRIBUTION WIDTH 16.7 % (11.7-14.4)
[2018-05-17 05:39] LABS: ANION GAP 13.5 mmol/L (8-16); BLOOD UREA NITROGEN 9 mg/dL (7-26); BUN/CREATININE RATIO 14 (6-25); CALCIUM 9.3 mg/dL (8.4-10.2); CARBON DIOXIDE 23 mmol/L (22-29); CHLORIDE 106 mmol/L (98-107); CREATININE, SERUM 0.64 mg/dL (0.57-1.11); EST GLOMERULAR FILTRATION RATE > 60 ML/MIN (60-); GLUCOSE 97 mg/dL (74-118); POTASSIUM 3.5 mmol/L (3.5-5.1); SODIUM 139 mmol/L (136-145)
[2018-05-17] MEDS: LINEZOLID 600 MG/D5W 300ML 300 ML IV SCH ×2 (09:03→21:16)
[2018-05-17] MEDS: SODIUM CHLORIDE 0.9% 1000ML 1,000 ML IV SCH ×2 (09:33→19:33)
[2018-05-17] MEDS: CEFTRIAXONE SOD 1 GM VIAL IV SCH ×2 (10:50)
[2018-05-17] MEDS ORDERED: HYDROMORPHONE HCL 2 MG TAB PO PRN ×2 (12:30)
[2018-05-17] MEDS: HYDROMORPHONE HCL 2 MG TAB PO PRN ×3 (14:00→22:00)
[2018-05-18] MEDS: CEFTRIAXONE SOD 1 GM VIAL IV SCH
[2018-05-18 00:02] VITALS: BP 124/72
[2018-05-18] MEDS: HYDROMORPHONE HCL 2 MG TAB PO PRN ×3 (01:19→08:10)
[2018-05-18 05:24] VITALS: BP 119/65
[2018-05-18] MEDS: SODIUM CHLORIDE 0.9% 1000ML 1,000 ML IV SCH (05:33)
[2018-05-18] MEDS: PROMETHAZINE 12.5MG/ NACL 0.9% 12.5 MG/50 ML BAG IV PRN (08:10)
[2018-05-18] MEDS: LINEZOLID 600 MG/D5W 300ML 300 ML IV SCH (09:08)
[2018-05-18 09:18] VITALS: BP 142/77
[2018-05-18] MEDS ORDERED: KEFLEX500 MG PO (11:32)
[2018-05-18] MEDS ORDERED: TYLENOL WITH C1 EACH PO (11:35)
--- NOTE | 2018-05-18 12:03 | Discharge Summary ---
FINAL DIAGNOSES 1. Chronic pancreatitis. 2. Pancreatic cancer. 3. Chronic pain. 4. Urinary tract infection. 5. History of recurrent urinary tract infections in the past. 6. Blood culture positive for coagulase-negative Staphylococcus, likely contaminant. ADMISSION HISTORY AND HOSPITAL COURSE: Ms. Rivas is a 37-year-old female. She presented to the emergency room with abdominal pain, has history of multiple admissions with recurrent UTIs in the past. She has recently been diagnosed with pancreatic cancer. She has history of chronic pancreatitis. ID was consulted, and patient was continued on antibiotics per their recommendation. Urology was consulted as patient has history of recurrent UTIs and medullary sponge kidneys. Dr. Carlos cleared the patient for discharge. Dr. Oliva was consulted for pain management. Patient has been doing well, and all consultants have cleared the patient for discharge. Patient will be discharged home to follow with primary care physician. Discharge medication list reviewed. CHELSIE GABRIEL MD Job#: [id number] BALTA
== END 2018-05-18 13:13 | disposition home or self-care (01) | DRG 690 ==
LOC: ER 17:42 → INTOOBSV 21:52 → ERHOLD 21:52 → IMCU 23:37 → OBSVTOIN 05-16 12:49 → MED/SURG2 05-16 20:06
PROVIDERS: ADMIT Internal Medicine; ATTEND Internal Medicine
DX: N39.0 Urinary tract infection, site not specified (principal); K86.1 Other chronic pancreatitis; C25.9 Malignant neoplasm of pancreas, unspecified; Q61.5 Medullary cystic kidney; Z87.440 Personal history of urinary (tract) infections; D64.9 Anemia, unspecified; B96.20 Unspecified Escherichia coli [E. coli] as the cause of diseases classified elsewhere; Z16.12 Extended spectrum beta lactamase (ESBL) resistance; R30.0 Dysuria; R35.0 Frequency of micturition; G89.4 Chronic pain syndrome; Z86.718 Personal history of other venous thrombosis and embolism; Z79.01 Long term (current) use of anticoagulants; G89.3 Neoplasm related pain (acute) (chronic)
CPT/HCPCS: 36415; 74176; 80048; 80053; 81001; 82150; 83690; 85025; 85610; 85730; 87040; 87071; 87086; 87186; 87205; 93971; 99284; G0378; J0696; J1642; J2020; J2185; J2550; J7030

== ENCOUNTER 2018-05-28 17:25 | Inpatient (IN) | payer OTHER ==
[~2018-05-28] VITALS: Ht 152.4 cm; Wt 67.1 kg
[~2018-05-28 17:25] MED LIST changes: +AMBIEN CR12.5 MG PO; +DILAUDID2 MG PO; +HYDROCODON-ACE1 EAC9 PO; +KEFLEX500 MG PO
--- OUTSIDE RECORDS SUMMARY | 2018-05-28 17:30 | XMS REPORT | Clinical Summary ---
Author Author [facility] Address Unknown Phone Unavailable Care Team Providers Care Performance Improvement Director Name Role Phone Asked, No Pcp PCP Unavailable Allergies Comments Active Allergy Reactions Severity Noted Date Dizziness, headache, body tingling Dexamethasone Other (See 07/14/2016 Comments) Headache and hypertension Dexamethasone Other (See 09/27/2016 Comments) Pimecrolimus Itching, Rash Low 07/14/2016 cp Fentanyl Shortness Of High 07/14/2016 Breath Fentanyl 01/13/2017 IV CONTRAST Iodine Rash Low 07/14/2016 RASH Morphine Shortness Of High 07/14/2016 Breath Chest pain Morphine Rash Low 09/27/2016 Chest tightness Butorphanol Tartrate Rash Low 07/14/2016 Butorphanol Tartrate 01/13/2017 SEVERE VOMITING AND RASH Ketorolac GI 07/14/2016 Intolerance Chest pain Ketorolac Rash Low 09/27/2016 Chest pain Tramadol Rash Low 09/27/2016 Tightness in chest Tramadol Rash Low 07/14/2016 HIGH BLOOD PRESSURE WITH SEVERE HEADACHE Ondansetron Hcl Other (See 07/14/2016 Comments) headache Ondansetron 09/27/2016 Medications End Date Status Medication Sig Dispensed Refills Start Date Active potassium citrate Take 10 mEq 0 (UROCIT-K) 10 mEq (1,080 by mouth 2 mg) CR tablet (two) times a day. Active phenazopyridine Take 200 mg 0 (PYRIDIUM) 200 MG tablet by mouth 3 (three) times a day as needed for bladder spasms. Active carvedilol (COREG) 12.5 Take 12.5 mg 0 MG tablet by mouth 2 (two) times a day with meals. For tachycardia Active ALPRAZolam (XANAX) 1 MG Take 1 mg by 0 tablet mouth 2 (two) times a day. Active promethazine (PHENERGAN) Take 25 mg by 0 25 MG tablet mouth every 6 (six) hours as needed for nausea or vomiting. Active eszopiclone (LUNESTA) 2 Take 2 mg by 0 08/22/ MG tablet mouth 8 nightly. Active buPROPion XL (WELLBUTRIN Take 300 mg 0 XL) 300 MG 24 hr tablet by mouth 8 every morning. Active sulfamethoxazole-trimetho Take 1 tablet 0 prim (BACTRIM DS) 800-160 by mouth 2 mg per tablet (two) times a day. 10/14/2017 Discontinued hydromorPHONE (DILAUDID) Take 8 mg by 0 8 MG tablet mouth every 4 (four) hours as needed for moderate pain. 08/28/2017 Discontinued HYDROcodone-acetaminophen Take 1 tablet 0 (NORCO) 10-325 mg per by mouth tablet every 8 (eight) hours as needed for moderate pain (breakthrough pain). 08/28/2017 Discontinued diazePAM (VALIUM) 5 MG Take 5 mg by 0 tablet mouth every 12 (twelve) hours as needed for muscle spasms. 10/14/2017 Discontinued fluconazole (DIFLUCAN) Take 200 mg 0 200 MG tablet by mouth daily as needed. For prophylaxis 08/28/2017 Discontinued buprenorphine (BUTRANS) Place 10 mcg 0 10 mcg/hour patch weekly on the skin as needed (pain). 10/14/2017 Discontinued carisoprodol (SOMA) 350 Take 350 mg 0 MG tablet by mouth 3 (three) times a day as needed for muscle spasms. 08/28/2017 Discontinued zolpidem CR (AMBIEN CR) Take 12.5 mg 0 12.5 MG CR tablet by mouth nightly as needed for sleep. 08/28/2017 Discontinued traZODone (DESYREL) 100 Take 100 mg 0 MG tablet by mouth nightly. 08/28/2017 Discontinued ciprofloxacin (CIPRO) 500 Take 500 mg 0 MG tablet by mouth 2 (two) times a day. 08/28/2017 Discontinued amoxicillin (AMOXIL) 500 Take 500 mg 0 MG capsule by mouth 3 (three) times a day. 08/28/2017 Discontinued carvedilol (COREG) 12.5 Take 12.5 mg 1 08/25/201 MG tablet by mouth 3 7 (three) times a day. 08/28/2017 Discontinued ALPRAZolam (XANAX) 1 MG Take 1 mg by 0 tablet mouth 3 (three) times a day. 08/28/2017 Discontinued phenazopyridine Take 200 mg 0 (PYRIDIUM) 200 MG tablet by mouth 3 (three) times a day as needed for bladder spasms. 08/28/2017 Discontinued zolpidem CR (AMBIEN CR) Take 12.5 mg 0 12.5 MG CR tablet by mouth nightly as needed for sleep. 08/28/2017 Discontinued potassium chloride Take 10 mEq 0 (KLOR-CON) 20 mEq packet by mouth 2 (two) times a day. 10/14/2017 Discontinued acetaminophen-codeine Take 1 tablet 0 (TYLENOL WITH CODEINE #3) by mouth 8 300-30 mg per tablet every 4 (four) hours as needed. 10/14/2017 Discontinued cephalexin (KEFLEX) 500 Take 500 mg 0 MG capsule by mouth 2 8 (two) times a day. 10/21/2017 amoxicillin-pot Take 1 tablet 14 tablet 0 clavulanate (AUGMENTIN) by mouth 2 8 875-125 mg per tablet (two) times a day for 7 days. 12/18/2017 cefpodoxime (VANTIN) 200 Take 1 tablet 20 tablet 0 12/08/201 MG tablet (200 mg 8 total) by mouth 2 (two) times a day for 10 days. Active Problems Problem Noted Date Foreign body left in wound 08/28/2017 DVT (deep venous thrombosis) 01/16/2017 Chronic UTI 01/14/2017 Idiopathic acute pancreatitis without infection or necrosis 09/27/2016 Idiopathic pancreatitis 09/27/2016 Acute cystitis 07/15/2016 Renal stones 07/14/2016 Encounters Care Team Description Date Type Specialty Lubna CardonaJessa MD Jessa Generalized abdominal pain (Primary Dx); Flank pain; Renal calculi; Dysuria 12/08/2017 Emergency Emergency Medicine Evelin Perez PA-C Sidlak, Alexander Michael, MD Acute UTI (Primary Dx); Chronic abdominal pain 10/14/2017 Emergency Emergency Medicine Thad, MD Yesenia Funes Maha, MD Foreign body left in wound (Primary Dx) 08/28/2017 Emergency General Internal Medicine - 08/29/2017 after 05/27/2017 Social History Date Tobacco Use Types Packs/Day Years Used Never Smoker Smokeless Tobacco: Never Used Alcohol Use Drinks/Week oz/Week Comments No Sex Assigned at Date Recorded Not on file Industry Job Start Date Occupation Not on file Not on file Not on file Travel End Travel History Travel Start No recent travel history available. Last Filed Vital Signs Time Taken Vital Sign Reading 12/08/2017 5:05 PM CDT Blood Pressure 133/67 12/08/2017 5:05 PM CDT Pulse 100 12/08/2017 5:05 PM CDT Temperature 37.1 C (98.8 F) 12/08/2017 5:05 PM CDT Respiratory Rate 18 12/08/2017 5:05 PM CDT Oxygen Saturation 100% - Inhaled Oxygen - Concentration 10/14/2017 10:33 AM CDT Weight 67.1 kg (148 lb) 12/08/2017 5:29 PM CDT Height 152.4 cm (5') 10/14/2017 10:33 AM CDT Body Mass Index 28.9 Plan of Treatment Health Maintenance Due Date Last Done Comments MMR VACCINES (1 of - 12/18/1980 Standard series) VARICELLA VACCINES (1 of 12/18/1992 2 - 2-dose adolescent series) CERVICAL CANCER SCREENING 12/18/2000 INFLUENZA VACCINE 02/07/2018 HEPATITIS B VACCINES Aged Out No longer eligible based on patient's age to complete this topic IPV VACCINES Aged Out No longer eligible based on patient's age to complete this topic MENINGOCOCCAL VACCINE Aged Out No longer eligible based on patient's age to complete this topic Implants Device Identifier Shelf Expiration Date Model / Serial / Lot Implanted Type Area Manufactur er Bladder Sling Breast Implant-01/14/2009 Implanted: 01/14/2009 (Quantity not on file) Procedures Comments Procedure Name Priority Date/Time Associated Diagnosis CT ABDOMEN PELVIS WO STAT 12/08/2017 CONTRAST 9:32 PM CDT ZZESTIMATED GFR STAT 12/08/2017 9:12 PM CDT HCG QUALITATIVE, SERUM STAT 12/08/2017 SCREEN 9:12 PM CDT LIPASE LEVEL STAT 12/08/2017 9:12 PM CDT COMPREHENSIVE METABOLIC STAT 12/08/2017 PANEL 9:12 PM CDT HC COMPLETE BLD COUNT STAT 12/08/2017 W/AUTO DIFF 9:12 PM CDT URINALYSIS SCREEN AND STAT 12/08/2017 MICROSCOPY, WITH REFLEX 8:10 PM CDT TO CULTURE GRAM STAIN Routine 12/08/2017 8:10 PM CDT URINE CULTURE Routine 12/08/2017 8:10 PM CDT HC COMPLETE BLD COUNT Routine 10/14/2017 W/AUTO DIFF 12:46 PM CDT ZZESTIMATED GFR STAT 10/14/2017 11:37 AM CDT AMYLASE LEVEL STAT 10/14/2017 11:37 AM CDT LIPASE LEVEL STAT 10/14/2017 11:37 AM CDT COMPREHENSIVE METABOLIC STAT 10/14/2017 PANEL 11:37 AM CDT URINALYSIS SCREEN AND STAT 10/14/2017 MICROSCOPY, WITH REFLEX 11:20 AM CDT TO CULTURE GRAM STAIN STAT 10/14/2017 11:20 AM CDT URINE CULTURE STAT 10/14/2017 11:20 AM CDT ZZESTIMATED GFR STAT 08/28/2017 6:02 PM [employer]ATION[employer]IP[employer] HC COMPLETE BLD COUNT STAT 08/28/2017 W/AUTO DIFF 6:02 PM [employer] COMPREHENSIVE METABOLIC STAT 08/28/2017 PANEL 6:02 PM [employer]ATIONARY EQUIPMENT MECH[employer]IC XR FOREARM 2 VW RIGHT STAT 08/28/2017 5:17 PM [employer]ATION[employer] EQUIPMENT MECHANIC XR FOREARM 2 VW RIGHT STAT 08/28/2017 3:27 PM [employer] EQUIPMENT MECH[employer]IC after 05/27/2017 Results * CT Abdomen Pelvis Wo Contrast (12/08/2017 9:32 PM CDT) Narrative Performed At CT ABDOMEN PELVIS WO CONTRAST [facility] CLINICAL INDICATION:ABDOMINAL PAIN, Flank pain. Hx [...] urinary bladder calculi are visualized. No hydronephrosis. [id number] Procedure Note Hm Interface, Radiology Results Incoming [...] urinary bladder calculi are visualized. No hydronephrosis. [facility]-[id number] Performing Organization Address City/State/Zipcode Phone Number [facility] [address] [place] [address] * Estimated GFR (12/08/2017 9:12 PM CDT) Only the most recent of 3 results within the time period is included. GFR Non Af Amer >90 mL/min/1.73 m2 [facility] DEPARTMENT OF PATHOLOGY AND GENOMIC MEDICINE GFR Af Amer >90 mL/min/1.73 m2 [facility] DEPARTMENT OF Comment: PATHOLOGY AND Chronic [...] specimen Performing Organization Address City/State/Zipcode Phone Number [facility] [address] [place] [phone] PATHOLOGY AND GENOMIC MEDICINE * CBC with platelet and differential (12/08/2017 9:12 PM CDT) Only the most recent of 3 results within the time period is included. WBC 3.24 (L) 4.50 - 11.00 k/uL [facility] DEPARTMENT OF PATHOLOGY AND GENOMIC MEDICINE RBC 3.65 (L) 4.20 - 5.50 m/uL [facility] DEPARTMENT OF PATHOLOGY AND GENOMIC MEDICINE HGB 8.9 (L) 12.0 - 16.0 g/dL [facility] DEPARTMENT OF PATHOLOGY AND GENOMIC MEDICINE HCT 28.3 (L) 37.0 - 47.0 % [facility] DEPARTMENT OF PATHOLOGY AND GENOMIC MEDICINE MCV 77.5 (L) 82.0 - 100.0 fL [facility] DEPARTMENT OF PATHOLOGY AND GENOMIC MEDICINE MCH 24.4 (L) 27.0 - 34.0 pg [facility] DEPARTMENT OF PATHOLOGY AND GENOMIC MEDICINE MCHC 31.4 31.0 - 37.0 g/dL [facility] DEPARTMENT OF PATHOLOGY AND GENOMIC MEDICINE RDW - SD 48.8 37.0 - 55.0 fL [facility] DEPARTMENT OF PATHOLOGY AND GENOMIC MEDICINE MPV 10.0 8.8 - 13.2 fL [facility] DEPARTMENT OF PATHOLOGY AND GENOMIC MEDICINE Platelet count 285 150 - 400 k/uL [facility] DEPARTMENT OF PATHOLOGY AND GENOMIC MEDICINE Nucleated RBC 0.00 /100 WBC [facility] DEPARTMENT OF PATHOLOGY AND GENOMIC MEDICINE Neutrophils 36.8 (L) 39.0 - 69.0 % [facility] DEPARTMENT OF PATHOLOGY AND GENOMIC MEDICINE Lymphocytes 47.8 (H) 25.0 - 45.0 % [facility] DEPARTMENT OF PATHOLOGY AND GENOMIC MEDICINE Monocytes 11.4 (H) 0.0 - 10.0 % [facility] DEPARTMENT OF PATHOLOGY AND GENOMIC MEDICINE Eosinophils 3.4 0.0 - 5.0 % [facility] DEPARTMENT OF PATHOLOGY AND GENOMIC MEDICINE Basophils 0.3 0.0 - 1.0 % [facility] DEPARTMENT OF PATHOLOGY AND GENOMIC MEDICINE Immature granulocytes 0.3Comment: "Immature 0.0 - 1.0 % [facility] DEPARTMENT OF granulocytes" (promyelocytes, PATHOLOGY AND myelocytes, metamyelocytes) GENOMIC MEDICINE Specimen Blood Performing Organization Address City/State/Zipcode Phone Number [address] [address] PATHOLOGY AND GENOMIC MEDICINE * hCG qualitative, serum screen (12/08/2017 9:12 PM CDT) hCG qualitative, serum NegativeComment: Sensitivity [facility] DEPARTMENT OF HCG test: 25 mIU/mL PATHOLOGY AND GENOMIC MEDICINE Specimen Blood Performing Organization Address City/[facility]/Zipcode Phone Number [address] [address] PATHOLOGY AND GENOMIC MEDICINE * Lipase level (12/08/2017 9:12 PM CDT) Only the most recent of 2 results within the time period is included. Lipase 20 13 - 60 U/L [facility] DEPARTMENT OF PATHOLOGY AND GENOMIC MEDICINE Specimen Plasma specimen Performing Organization Address City/[facility] Phone Number [address] [address] PATHOLOGY AND GENOMIC MEDICINE * Comprehensive metabolic panel (12/08/2017 9:12 PM CDT) Only the most recent of 3 results within the time period is included. Sodium 138 135 - 148 mEq/L [facility] DEPARTMENT OF PATHOLOGY AND GENOMIC MEDICINE Potassium 3.9 3.5 - 5.0 mEq/L [facility] DEPARTMENT OF PATHOLOGY AND GENOMIC MEDICINE Chloride 101 98 - 112 mEq/L [facility] DEPARTMENT OF PATHOLOGY AND GENOMIC MEDICINE CO2 24 24 - 31 mEq/L [facility] DEPARTMENT OF PATHOLOGY AND GENOMIC MEDICINE Anion gap 13@ANIO 7 - 15 mEq/L [facility] DEPARTMENT OF PATHOLOGY AND GENOMIC MEDICINE BUN 11 6 - 20 mg/dL [facility] DEPARTMENT OF PATHOLOGY AND GENOMIC MEDICINE Creatinine 0.6 0.5 - 0.9 mg/dL [facility] DEPARTMENT OF PATHOLOGY AND GENOMIC MEDICINE Glucose 98 65 - 99 mg/dL [facility] DEPARTMENT OF PATHOLOGY AND GENOMIC MEDICINE Calcium 9.4 8.3 - 10.2 mg/dL [facility] DEPARTMENT OF PATHOLOGY AND GENOMIC MEDICINE Protein 7.7 6.3 - 8.3 g/dL [facility] DEPARTMENT OF Comment: PATHOLOGY AND GENOMIC MEDICINE 4.6-7.0 g/dL 1 week 4.4-7.6 g/dL 7 months-1year 5.1-7.3 g/dL 1-2 years5.6-7 .5 g/dL >3 years6.0-8 .0 g/dL 18-150 6.3-8.3 g/dL Albumin 3.9 3.5 - 5.0 g/dL [facility] DEPARTMENT OF PATHOLOGY AND GENOMIC MEDICINE A/G ratio 1.0 0.7 - 3.8 [facility] DEPARTMENT OF PATHOLOGY AND GENOMIC MEDICINE Alkaline phosphatase 137 (H) 35 - 104 U/L [facility] DEPARTMENT OF PATHOLOGY AND GENOMIC MEDICINE AST 30 10 - 35 U/L [facility] DEPARTMENT OF PATHOLOGY AND GENOMIC MEDICINE ALT 40 5 - 50 U/L [facility] DEPARTMENT OF PATHOLOGY AND GENOMIC MEDICINE Total bilirubin 0.3 0.0 - 1.2 mg/dL [facility] DEPARTMENT OF PATHOLOGY AND GENOMIC MEDICINE Specimen Plasma specimen Performing Organization Address City/[facility] Phone Number [address] [address] PATHOLOGY [facility] * Urinalysis screen and microscopy, with reflex to culture (12/08/2017 8:10 PM CDT) Only the most recent of 2 results within the time period is included. Specimen site Clean catch [facility] DEPARTMENT OF PATHOLOGY AND GENOMIC MEDICINE Color, UA Straw [facility] DEPARTMENT OF PATHOLOGY AND GENOMIC MEDICINE Appearance, UA Hazy [facility] DEPARTMENT OF PATHOLOGY AND GENOMIC MEDICINE Specific gravity, UA 1.013 1.001 - 1.035 [facility] DEPARTMENT OF PATHOLOGY AND GENOMIC MEDICINE pH, UA 7.0 5.0 - 8.5 [facility] DEPARTMENT OF PATHOLOGY AND GENOMIC MEDICINE Protein, UA Negative Negative [facility] DEPARTMENT OF PATHOLOGY AND GENOMIC MEDICINE Glucose, UA Negative Negative [facility] DEPARTMENT OF PATHOLOGY AND GENOMIC MEDICINE Ketones, UA Negative Negative [facility] DEPARTMENT OF PATHOLOGY AND GENOMIC MEDICINE Bilirubin, UA Negative Negative [facility] DEPARTMENT OF PATHOLOGY AND GENOMIC MEDICINE Blood, UA Negative Negative [facility] DEPARTMENT OF PATHOLOGY AND GENOMIC MEDICINE Nitrite, UA Negative Negative [facility] DEPARTMENT OF PATHOLOGY AND GENOMIC MEDICINE Urobilinogen, UA <2.0 <2.0 [facility] DEPARTMENT OF PATHOLOGY AND GENOMIC MEDICINE Leukocyte esterase, UA Negative Negative [facility] DEPARTMENT OF PATHOLOGY AND GENOMIC MEDICINE Epithelial cells, UA 12 /HPF [facility] DEPARTMENT OF PATHOLOGY AND GENOMIC MEDICINE WBC, UA 8 (H) 0 - 4 /HPF [facility] DEPARTMENT OF PATHOLOGY AND GENOMIC MEDICINE RBC, UA 1 0 - 5 /HPF [facility] DEPARTMENT OF PATHOLOGY AND GENOMIC MEDICINE Bacteria, UA Moderate (A) None seen [facility] DEPARTMENT OF PATHOLOGY AND GENOMIC MEDICINE Yeast, UA None seen [facility] DEPARTMENT OF PATHOLOGY AND GENOMIC MEDICINE Yeast with pseudohyphae, None seen [facility] DEPARTMENT OF PATHOLOGY AND GENOMIC MEDICINE Specimen Urine Performing Organization Address City/[facility] Cent[facility]ode Phone Number [address] [address] PATHOLOGY AND GENOMIC MEDICINE * Gram stain (12/08/2017 8:10 PM CDT) Only the most recent of 2 results within the time period is included. Gram stain result Few WBC's [facility] DEPARTMENT OF Moderate Gram positive rods PATHOLOGY AND Comment: GENOMIC MEDICINE Specimen Information Specimen Source: Urine Specimen Site: Clean catch Specimen Urine Performing Organization Address City/[facility]/Zipcode Phone Number [facility] DEPARTMENT OF [address] [place] [phone] PATHOLOGY AND GENOMIC MEDICINE * Urine culture (12/08/2017 8:10 PM CDT) Only the most recent of 2 results within the time period is included. Urine culture isolate Mixed Gram positive rachele [facility] DEPARTMENT OF 10-2 cfu/ml PATHOLOGY AND (A) GENOMIC MEDICINE Comment: Specimen Information Specimen Source: Urine Specimen Site: Clean catch Specimen Urine Performing Organization Address [facility] Cent[facility]ode Phone Number [facility] DEPARTMENT OF [address] [place] [phone] PATHOLOGY AND GENOMIC MEDICINE * Amylase level (10/14/2017 11:37 AM CDT) Amylase 45 13 - 73 U/L [facility] DEPARTMENT OF PATHOLOGY AND GENOMIC MEDICINE Specimen Plasma specimen Performing Organization Address City/[facility] Cent[facility]ode Phone Number [facility] [place] [place] [address] [place] [address] PATHOLOGY AND GENOMIC MEDICINE * XR Forearm 2 Vw Right (08/28/2017 5:17 PM [employer]ATION[employer]QUIPMENT MECH[employer]IC) Only the most recent of 2 results within the time period is included. Narrative Performed At EXAMINATION:XR FOREARM 2 VW RIGHT [facility] CLINICAL HISTORY:s p wound cleaning. re evaluate for FB COMPARISON:None. IMPRESSION: There is some subcutaneous air adjacent to the distal radius. No metallic foreign body is noted. [id number] Procedure Note Interface, Radiology Results Incoming - 08/28/2017 5:48 PM [employer]CH[employer]IC EXAMINATION: XR FOREARM 2 VW RIGHT CLINICAL HISTORY: s p wound cleaning. re evaluate for FB COMPARISON: None. IMPRESSION: There is some subcutaneous air adjacent to the distal radius. No metallic foreign body is noted. [id number] Performing Organization Address City/State/Zipcode Phone Number [facility] [address] [place] [phone] after 05/27/2017 Insurance Payer Benefit Subscriber ID Type Phone Address Plan / Group [employer] xxxxxxxxx HMO/PPO THCARE CHOICE/CHO ICE + [facility] [employer] xxxxxxxxx HMO/PPO THCARE CHOICE/CHO ICE + [facility] [employer] xxxxxxxxx HMO/PPO THCARE CHOICE/CHO ICE + Advance Directives Patient has advance care planning documents, and code status on file. For more i nformation, please contact: Timo Anne [address] [place] [address] Date Inactivated Comments Code Status Date Activated 01/15/2017 4:57 AM Full Code 01/14/2017 1:34 PM Code Status decision reached by: Patient
--- OUTSIDE RECORDS SUMMARY | 2018-05-28 17:31 | XMS REPORT | Continuity of Care Document ---
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 Enmelloet Rahim Anxiety Active Problem 09/23/2016 Enmelloet Lilianm Tachycardia Active Diagnosis 08/15/2016 Rosaura Quintanam Acute cystitis with hematuria Active Problem 09/23/2016 Rosaura Reid Medications Medication Details Route Status Patient Instructions Ordering Provider Order Date Source Cipro 1 tablet Orally Active 500 MG Orally Twice a day [facility] 08/31/2016 Rosaura Reid Pyridium 1 tablet after meals Orally Active 200 MG Orally Three times a day [facility] 08/12/2016 [facility] Zyvox 1 tablet Orally Active 600 MG Orally every 12 hrs [facility] 07/13/2016 Rosaura Reid Acetaminophen-Codeine #3 1 tablet as needed Orally Active 300- 30 MG Orally every 6 hrs [facility] 06/15/2016 Rosaura Quintana Promethazine HCl 1 tablet as needed Orally Active 12.5 MG Orally every 6 hrs [facility] 06/15/2016 [facility] Alprazolam 1/2 half tablet Orally Active 1 MG Orally Twice a day [facility] Carvedilol 1 tablet Orally Active 12.5 MG Orally twice a day [facility] Potassium Citrate ER not defined Orally Active 10 MEQ (1080 MG) Orally twice a day [facility] Bactrim 2 tablets Orally Active 400-80 MG Orally Once a day [facility] Pyridium 1 tablet after meals Orally Active 200 MG Orally Three times a day [facility] Levaquin 1 tablet Orally Active 500 MG Orally Once a day [facility] Rosaura Quintana Allergies, Adverse Reactions, Alerts Substance [...] Source Rosaura Reid MD, PA Sick Visit [id number] 06/15/2016 06/15/2016 Rosaura Reid MD, PA Sick Visit [id number] 06/15/2016 06/15/2016 Rosaura Reid MD, PA Sick Visit [id number] 06/15/2016 06/15/2016 Rosaura Reid MD, PA Sick Visit [id number] 06/15/2016 06/15/2016 Rosaura Reid MD, PA Sick Visit [id number] 06/15/2016 06/15/2016 Rosaura Reid MD, PA d/c from hospital pt needed refill dr neha correa [id number] 07/13/2016 07/13/2016 Rosaura Reid MD, PA d/c from hospital pt needed refill dr neha correa [id number] 07/13/2016 07/13/2016 Rosaura Reid MD, PA d/c from hospital pt needed refill dr neha correa [id number] 07/13/2016 07/13/2016 Rosaura Reid MD, PA d/c from hospital pt needed refill dr neha correa [id number] 07/13/2016 07/13/2016 Rosaura Reid MD, PA Sick Visit [id number] 08/05/2016 08/05/2016 Rosaura Reid MD, PA Sick Visit [id number] 08/05/2016 08/05/2016 Rosaura Reid MD, PA Sick Visit [id number] 08/05/2016 08/05/2016 Rosaura Reid MD, PA Sick Visit [id number] 08/31/2016 08/31/2016 Rosaura Reid MD, PA Sick Visit [id number] 08/31/2016 08/31/2016 Rosaura Reid MD, PA kidney stones [id number] 09/02/2016 09/02/2016 Rosaura Reid Procedures Procedure Code Date Perfomer Comments Source
[2018-05-28] MEDS ORDERED: HYDROMORPHONE 1MG/1ML INJ IV STA (21:17)
[2018-05-28] MEDS ORDERED: PROMETHAZINE 25MG/ NS 50ML (IV) IV ONE (21:30)
[2018-05-28] MEDS ORDERED: SODIUM CHLORIDE 0.9% 1000ML 1,000 ML IV ONE (21:30)
[2018-05-28] MEDS ORDERED: HYDROMORPHONE 2MG/ML 2 MG/ML ML IV ONE (21:30)
[2018-05-28 22:52] LABS: BASOPHILS % 0.4 % (0.0-1.0); EOSINOPHILS # (AUTO) 0.5 (0.0-0.4); EOSINOPHILS % 9.7 % (0.0-6.0); HEMATOCRIT 33.7 % (34.2-44.1); HEMOGLOBIN 10.7 g/dL (12.0-16.0); LYMPHOCYTES # (AUTO) 1.7 (1.0-3.2); LYMPHOCYTES % 34.7 % (18.0-39.1); MEAN CORPUSCULAR HEMOGLOBIN 26.8 pg (28-32); MEAN CORPUSCULAR HGB CONC 31.8 g/dL (31-35); MEAN CORPUSCULAR VOLUME 84.5 fL (81-99); MONOCYTES # (AUTO) 0.6 (0.2-0.8); MONOCYTES % 12.5 % (4.4-11.3); NEUTROPHILS # (AUTO) 2.1 (2.1-6.9); NEUTROPHILS % 42.5 % (38.7-80.0); PLATELET COUNT 219 x10e3/uL (140-360); RED BLOOD COUNT 3.99 x10e6/uL (3.6-5.1); RED CELL DISTRIBUTION WIDTH 16.4 % (11.7-14.4)
[2018-05-28 22:58] LABS: CLARITY,URINE CLEAR (CLEAR); COLOR,URINE YELLOW (YELLOW); LEUKOCYTE ESTERASE ,URINE NEGATIVE (NEGATIVE); NITRITE,URINE NEGATIVE (NEGATIVE)
[2018-05-28 22:59] LABS: BILIRUBIN,URINE NEGATIVE (NEGATIVE); KETONES,URINE NEGATIVE (NEGATIVE); PROTEIN,URINE DIPSTICK NEGATIVE (NEGATIVE); URINE UROBILINOGEN 0.2 mg/dL (0.2 - 1)
[2018-05-28 23:04] LABS: PREGNANCY TEST, URINE NEGATIVE (NEGATIVE)
[2018-05-28 23:06] LABS: BACTERIA,URINE RARE /HPF; EPITHELIAL CELLS,URINE RARE /LPF; RBC,URINE 0-5 /HPF (0-5); WBC,URINE (MAN) 0-5 /HPF (0-5)
[2018-05-28 23:12] LABS: ALANINE AMINOTRANSFERASE 38 IU/L (0-55); ALBUMIN/GLOBULIN RATIO 1.1 (0.8-2.0); ALKALINE PHOSPHATASE 104 IU/L (40-150); AMYLASE 55 U/L (25-125); ANION GAP 14.8 mmol/L (8-16); BLOOD UREA NITROGEN 10 mg/dL (7-26); BUN/CREATININE RATIO 14 (6-25); CALCIUM 9.4 mg/dL (8.4-10.2); CARBON DIOXIDE 21 mmol/L (22-29); CHLORIDE 107 mmol/L (98-107); CREATININE, SERUM 0.69 mg/dL (0.57-1.11); EST GLOMERULAR FILTRATION RATE > 60 ML/MIN (60-); GLUCOSE 103 mg/dL (74-118); LIPASE 5 U/L (8-78); POTASSIUM 3.8 mmol/L (3.5-5.1); SODIUM 139 mmol/L (136-145)
[2018-05-28] MEDS ORDERED: PROMETHAZINE HCL (IM) 25 MG/ML VIAL IV PRN (23:45)
[2018-05-28] MEDS ORDERED: HYDROMORPHONE 1MG/1ML INJ IV PRN (23:45)
--- OUTSIDE RECORDS SUMMARY | 2018-05-28 23:45 | XMS REPORT | Clinical Summary ---
Author Author Timo [employer] Organization [employer] Address Unknown Phone Unavailable Care Team Providers Care Laboratory Inspector Name Role Phone Asked, No Pcp PCP [...] CDT ZZESTIMATED GFR STAT 08/28/2017 6:02 PM [facility] HC COMPLETE BLD COUNT STAT 08/28/2017 W/AUTO DIFF 6:02 PM [facility] COMPREHENSIVE METABOLIC STAT 08/28/2017 PANEL 6:02 PM [facility] XR FOREARM 2 VW RIGHT STAT 08/28/2017 5:17 PM [facility] XR FOREARM 2 VW RIGHT STAT 08/28/2017 3:27 PM [facility] after 05/27/2017 Results * CT Abdomen Pelvis [...] urinary bladder calculi are visualized. No hydronephrosis. [facility]-[id number] Procedure Note Hm Interface, Radiology Results Incoming [...] urinary bladder calculi are visualized. No hydronephrosis. [facility]-[id number] Performing Organization Address City/State/Zipcode Phone Number [facility] [address] [place] [address] * Estimated GFR (12/08/2017 9:12 PM CDT) Only the most recent of 3 results within the time period is included. GFR Non Af Amer >90 mL/min/1.73 m2 [facility] DEPARTMENT OF PATHOLOGY AND GENOMIC MEDICINE GFR Af Amer >90 mL/min/1.73 m2 [facility] DEPARTMENT OF Comment: PATHOLOGY AND Chronic kidney [...] specimen Performing Organization Address City/State/Zipcode Phone Number [facility] [address] [place] [phone] PATHOLOGY AND GENOMIC MEDICINE * CBC with platelet and differential (12/08/2017 9:12 PM CDT) Only the most recent of 3 results within the time period is included. WBC 3.24 (L) 4.50 - 11.00 k/uL [facility] DEPARTMENT OF PATHOLOGY AND GENOMIC MEDICINE RBC 3.65 (L) 4.20 - 5.50 m/uL [facility] DEPARTMENT OF PATHOLOGY AND GENOMIC MEDICINE HGB 8.9 (L) 12.0 - 16.0 g/dL [facility] DEPARTMENT OF PATHOLOGY AND GENOMIC MEDICINE HCT 28.3 (L) 37.0 - 47.0 % [facility] DEPARTMENT OF PATHOLOGY AND GENOMIC MEDICINE MCV 77.5 (L) 82.0 - 100.0 fL [facility] DEPARTMENT OF PATHOLOGY AND GENOMIC MEDICINE MCH 24.4 (L) 27.0 - 34.0 pg [facility] DEPARTMENT OF PATHOLOGY AND GENOMIC MEDICINE MCHC 31.4 31.0 - 37.0 g/dL [facility] DEPARTMENT OF PATHOLOGY AND GENOMIC MEDICINE RDW - SD 48.8 37.0 - 55.0 fL [facility] DEPARTMENT OF PATHOLOGY AND GENOMIC MEDICINE MPV 10.0 8.8 - 13.2 fL [facility] DEPARTMENT OF PATHOLOGY AND GENOMIC MEDICINE Platelet count 285 150 - 400 k/uL [facility] DEPARTMENT OF PATHOLOGY AND GENOMIC MEDICINE Nucleated RBC 0.00 /100 WBC [facility] DEPARTMENT OF PATHOLOGY AND GENOMIC MEDICINE Neutrophils 36.8 (L) 39.0 - 69.0 % [facility] DEPARTMENT OF PATHOLOGY AND GENOMIC MEDICINE Lymphocytes 47.8 (H) 25.0 - 45.0 % [facility] DEPARTMENT OF PATHOLOGY AND GENOMIC MEDICINE Monocytes 11.4 (H) 0.0 - 10.0 % [facility] DEPARTMENT OF PATHOLOGY AND GENOMIC MEDICINE Eosinophils 3.4 0.0 - 5.0 % [facility] DEPARTMENT OF PATHOLOGY AND GENOMIC MEDICINE Basophils 0.3 0.0 - 1.0 % [facility] DEPARTMENT OF PATHOLOGY AND GENOMIC MEDICINE Immature granulocytes 0.3Comment: "Immature 0.0 - 1.0 % [facility] DEPARTMENT OF granulocytes" (promyelocytes, PATHOLOGY AND myelocytes, metamyelocytes) GENOMIC MEDICINE Specimen Blood Performing Organization Address City/State/Zipcode Phone Number [address] [address] PATHOLOGY AND GENOMIC MEDICINE * hCG qualitative, serum screen (12/08/2017 9:12 PM CDT) hCG qualitative, serum NegativeComment: Sensitivity [facility] DEPARTMENT OF HCG test: 25 mIU/mL PATHOLOGY AND GENOMIC MEDICINE Specimen Blood Performing Organization Address City/[facility]/Zipcode Phone Number [address] [address] PATHOLOGY AND GENOMIC MEDICINE * Lipase level (12/08/2017 9:12 PM CDT) Only the most recent of 2 results within the time period is included. Lipase 20 13 - 60 U/L [facility] DEPARTMENT OF PATHOLOGY AND GENOMIC MEDICINE Specimen Plasma specimen Performing Organization Address City/[facility] Phone Number [address] [address] PATHOLOGY AND GENOMIC MEDICINE * Comprehensive metabolic panel (12/08/2017 9:12 PM CDT) Only the most recent of 3 results within the time period is included. Sodium 138 135 - 148 mEq/L [facility] DEPARTMENT OF PATHOLOGY AND GENOMIC MEDICINE Potassium 3.9 3.5 - 5.0 mEq/L [facility] DEPARTMENT OF PATHOLOGY AND GENOMIC MEDICINE Chloride 101 98 - 112 mEq/L [facility] DEPARTMENT OF PATHOLOGY AND GENOMIC MEDICINE CO2 24 24 - 31 mEq/L [facility] DEPARTMENT OF PATHOLOGY AND GENOMIC MEDICINE Anion gap 13@ANIO 7 - 15 mEq/L [facility] DEPARTMENT OF PATHOLOGY AND GENOMIC MEDICINE BUN 11 6 - 20 mg/dL [facility] DEPARTMENT OF PATHOLOGY AND GENOMIC MEDICINE Creatinine 0.6 0.5 - 0.9 mg/dL [facility] DEPARTMENT OF PATHOLOGY AND GENOMIC MEDICINE Glucose 98 65 - 99 mg/dL [facility] DEPARTMENT OF PATHOLOGY AND GENOMIC MEDICINE Calcium 9.4 8.3 - 10.2 mg/dL [facility] DEPARTMENT OF PATHOLOGY AND GENOMIC MEDICINE Protein 7.7 6.3 - 8.3 g/dL [facility] DEPARTMENT OF Comment: PATHOLOGY AND GENOMIC MEDICINE 4.6-7.0 g/dL 1 week 4.4-7.6 g/dL 7 months-1year 5.1-7.3 g/dL 1-2 years5.6-7 .5 g/dL >3 years6.0-8 .0 g/dL 18-150 6.3-8.3 g/dL Albumin 3.9 3.5 - 5.0 g/dL [facility] DEPARTMENT OF PATHOLOGY AND GENOMIC MEDICINE A/G ratio 1.0 0.7 - 3.8 [facility] DEPARTMENT OF PATHOLOGY AND GENOMIC MEDICINE Alkaline phosphatase 137 (H) 35 - 104 U/L [facility] DEPARTMENT OF PATHOLOGY AND GENOMIC MEDICINE AST 30 10 - 35 U/L [facility] DEPARTMENT OF PATHOLOGY AND GENOMIC MEDICINE ALT 40 5 - 50 U/L [facility] DEPARTMENT OF PATHOLOGY AND GENOMIC MEDICINE Total bilirubin 0.3 0.0 - 1.2 mg/dL [facility] DEPARTMENT OF PATHOLOGY AND GENOMIC MEDICINE Specimen Plasma specimen Performing Organization Address City/[facility] Phone Number [address] [address] PATHOLOGY [facility] * Urinalysis screen and microscopy, with reflex to culture (12/08/2017 8:10 PM CDT) Only the most recent of 2 results within the time period is included. Specimen site Clean catch [facility] DEPARTMENT OF PATHOLOGY AND GENOMIC MEDICINE Color, UA Straw [facility] DEPARTMENT OF PATHOLOGY AND GENOMIC MEDICINE Appearance, UA Hazy [facility] DEPARTMENT OF PATHOLOGY AND GENOMIC MEDICINE Specific gravity, UA 1.013 1.001 - 1.035 [facility] DEPARTMENT OF PATHOLOGY AND GENOMIC MEDICINE pH, UA 7.0 5.0 - 8.5 [facility] DEPARTMENT OF PATHOLOGY AND GENOMIC MEDICINE Protein, UA Negative Negative [facility] DEPARTMENT OF PATHOLOGY AND GENOMIC MEDICINE Glucose, UA Negative Negative [facility] DEPARTMENT OF PATHOLOGY AND GENOMIC MEDICINE Ketones, UA Negative Negative [facility] DEPARTMENT OF PATHOLOGY AND GENOMIC MEDICINE Bilirubin, UA Negative Negative [facility] DEPARTMENT OF PATHOLOGY AND GENOMIC MEDICINE Blood, UA Negative Negative [facility] DEPARTMENT OF PATHOLOGY AND GENOMIC MEDICINE Nitrite, UA Negative Negative [facility] DEPARTMENT OF PATHOLOGY AND GENOMIC MEDICINE Urobilinogen, UA <2.0 <2.0 [facility] DEPARTMENT OF PATHOLOGY AND GENOMIC MEDICINE Leukocyte esterase, UA Negative Negative [facility] DEPARTMENT OF PATHOLOGY AND GENOMIC MEDICINE Epithelial cells, UA 12 /HPF [facility] DEPARTMENT OF PATHOLOGY AND GENOMIC MEDICINE WBC, UA 8 (H) 0 - 4 /HPF [facility] DEPARTMENT OF PATHOLOGY AND GENOMIC MEDICINE RBC, UA 1 0 - 5 /HPF [facility] DEPARTMENT OF PATHOLOGY AND GENOMIC MEDICINE Bacteria, UA Moderate (A) None seen [facility] DEPARTMENT OF PATHOLOGY AND GENOMIC MEDICINE Yeast, UA None seen [facility] DEPARTMENT OF PATHOLOGY AND GENOMIC MEDICINE Yeast with pseudohyphae, None seen [facility] DEPARTMENT OF PATHOLOGY AND GENOMIC MEDICINE Specimen Urine Performing Organization Address City/[facility] Phone Number [address] [address] PATHOLOGY AND GENOMIC MEDICINE * Gram stain (12/08/2017 8:10 PM CDT) Only the most recent of 2 results within the time period is included. Gram stain result Few WBC's [facility] DEPARTMENT OF Moderate Gram positive rods PATHOLOGY AND Comment: GENOMIC MEDICINE Specimen Information Specimen Source: Urine Specimen Site: Clean catch Specimen Urine Performing Organization Address City/[facility]/Zipcode Phone Number [facility] DEPARTMENT OF [address] [place] [phone] PATHOLOGY AND GENOMIC MEDICINE * Urine culture (12/08/2017 8:10 PM CDT) Only the most recent of 2 results within the time period is included. Urine culture isolate Mixed Gram positive rachele [facility] DEPARTMENT OF 10-2 cfu/ml PATHOLOGY AND (A) GENOMIC MEDICINE Comment: Specimen Information Specimen Source: Urine Specimen Site: Clean catch Specimen Urine Performing Organization Address [facility] Phone Number [facility] DEPARTMENT OF [address] [place] [phone] PATHOLOGY AND GENOMIC MEDICINE * Amylase level (10/14/2017 11:37 AM CDT) Amylase 45 13 - 73 U/L [facility] DEPARTMENT OF PATHOLOGY AND GENOMIC MEDICINE Specimen Plasma specimen Performing Organization Address City/[facility] Phone Number [facility] [address] [place] [address] PATHOLOGY AND GENOMIC MEDICINE * XR Forearm 2 Vw Right (08/28/2017 5:17 PM [facility]) Only the most recent of 2 results within the time period is included. Narrative Performed At EXAMINATION:XR FOREARM 2 VW RIGHT [facility] CLINICAL HISTORY:s p wound cleaning. re evaluate for FB COMPARISON:None. IMPRESSION: There is some subcutaneous air adjacent to the distal radius. No metallic foreign body is noted. [id number] Procedure Note Interface, Radiology Results Incoming - 08/28/2017 5:48 PM [facility] EXAMINATION: XR FOREARM 2 VW RIGHT CLINICAL HISTORY: s p wound cleaning. re evaluate for FB COMPARISON: None. IMPRESSION: There is some subcutaneous air adjacent to the distal radius. No metallic foreign body is noted. [id number] Performing Organization Address City/State/Zipcode Phone Number [facility] [address] [place] [phone] after 05/27/2017 Insurance Payer Benefit Subscriber ID Type Phone Address Plan / Group [employer] xxxxxxxxx HMO/PPO THCARE CHOICE/CHO ICE + [facility] [employer] xxxxxxxxx HMO/PPO THCARE CHOICE/CHO ICE + [facility] [employer] xxxxxxxxx HMO/PPO THCARE CHOICE/CHO ICE + Advance Directives Patient has advance care planning documents, and code status on file. For more i nformation, please contact: Timo Anne [address] [place] [address] Date Inactivated Comments Code Status Date Activated 01/15/2017 4:57 AM Full Code 01/14/2017 1:34 PM Code Status decision reached by: Patient
[2018-05-29] VITALS (8 sets, daily range): BP systolic 119–142; BP diastolic 65–84
[2018-05-29] MEDS: SODIUM CHLORIDE 0.9% 1000ML 1,000 ML IV SCH ×4 (00:26→21:15)
[2018-05-29] MEDS: HYDROMORPHONE 2MG/ML 2 MG/ML ML IV PRN ×4 (07:27→21:20)
[2018-05-29] MEDS ORDERED: ACETAMINOPHEN 325 MG TAB PO PRN (09:00)
[2018-05-29] MEDS ORDERED: PHENAZOPYRIDINE HCL 100 MG TAB PO PRN (09:00)
[2018-05-29] MEDS: CEPHALEXIN 500 MG CAP PO SCH ×2 (10:14→21:31)
[2018-05-29] MEDS: ALPRAZOLAM 1 MG TAB PO SCH ×3 (10:14→21:31)
[2018-05-29] MEDS: FAMOTIDINE 20 MG/2 ML VIAL IV SCH ×2 (10:15→17:20)
[2018-05-29] MEDS ORDERED: SODIUM CHLORIDE 0.9% 250ML 250 ML ONE (11:28)
[2018-05-29] MEDS: CARVEDILOL 12.5 MG TAB PO SCH ×2 (13:15→17:20)
[2018-05-29] MEDS: PROMETHAZINE 12.5MG/ NACL 0.9% 50 ML IV PRN ×2 (16:25→21:15)
[2018-05-29] MEDS: VANCOMYCIN 250MG/5ML ORAL SOLN PO SCH (18:19)
[2018-05-29] MEDS: ZOLPIDEM TARTRATE 10 MG TAB PO SCH (21:31)
[2018-05-30] VITALS (7 sets, daily range): BP systolic 101–126; BP diastolic 55–72
[2018-05-30] MEDS: VANCOMYCIN 250MG/5ML ORAL SOLN PO SCH ×4 (00:20→16:55)
[2018-05-30] MEDS: HYDROMORPHONE 2MG/ML 2 MG/ML ML IV PRN ×5 (03:44→23:54)
[2018-05-30] MEDS: PROMETHAZINE 12.5MG/ NACL 0.9% 50 ML IV PRN ×5 (03:44→23:54)
[2018-05-30 05:31] LABS: BASOPHILS % 0.3 % (0.0-1.0); EOSINOPHILS # (AUTO) 0.4 (0.0-0.4); EOSINOPHILS % 10.4 % (0.0-6.0); HEMATOCRIT 32.5 % (34.2-44.1); HEMOGLOBIN 10.4 g/dL (12.0-16.0); LYMPHOCYTES # (AUTO) 1.5 (1.0-3.2); LYMPHOCYTES % 40.9 % (18.0-39.1); MEAN CORPUSCULAR VOLUME 84.4 fL (81-99); MONOCYTES # (AUTO) 0.4 (0.2-0.8); MONOCYTES % 9.9 % (4.4-11.3); NEUTROPHILS # (AUTO) 1.4 (2.1-6.9); NEUTROPHILS % 38.2 % (38.7-80.0); PLATELET COUNT 218 x10e3/uL (140-360); RED BLOOD COUNT 3.85 x10e6/uL (3.6-5.1); RED CELL DISTRIBUTION WIDTH 16.5 % (11.7-14.4)
[2018-05-30 06:03] LABS: ALANINE AMINOTRANSFERASE 38 IU/L (0-55); ALBUMIN 3.8 g/dL (3.5-5.0); ALKALINE PHOSPHATASE 86 IU/L (40-150); ANION GAP 9.7 mmol/L (8-16); BILIRUBIN,DIRECT 0.3 mg/dL (0.0-0.5); BLOOD UREA NITROGEN 8 mg/dL (7-26); BUN/CREATININE RATIO 11 (6-25); CALCIUM 9.2 mg/dL (8.4-10.2); CARBON DIOXIDE 22 mmol/L (22-29); CHLORIDE 108 mmol/L (98-107); EST GLOMERULAR FILTRATION RATE > 60 ML/MIN (60-); GLUCOSE 95 mg/dL (74-118); POTASSIUM 3.7 mmol/L (3.5-5.1); SODIUM 136 mmol/L (136-145)
[2018-05-30 06:36] LABS: FERRITIN 15.99 ng/mL (4.63-204.00)
[2018-05-30 07:47] LABS: FOLATE 32.2 ng/mL (7.0-15.4)
[2018-05-30] MEDS: SODIUM CHLORIDE 0.9% 1000ML 1,000 ML IV SCH ×2 (08:27→16:55)
[2018-05-30] MEDS: CEPHALEXIN 500 MG CAP PO SCH ×2 (09:12→21:14)
[2018-05-30] MEDS: FAMOTIDINE 20 MG/2 ML VIAL IV SCH ×2 (09:12→16:55)
[2018-05-30] MEDS: CARVEDILOL 12.5 MG TAB PO SCH ×3 (09:12→21:00)
[2018-05-30] MEDS: ALPRAZOLAM 1 MG TAB PO SCH ×3 (09:12→21:14)
[2018-05-30] MEDS ORDERED: CHOLESTYRAMINE 4 GM PACKET PO PRN (09:30)
--- NOTE | 2018-05-30 11:01 | Diagnostic Imaging Report ---
PROCEDURE:X-RAY ABDOMEN - KUB COMPARISON:Abdominal radiograph 02/13/2018, CT abdomen and pelvis without contrast 05/14/2018. INDICATIONS:abdominal pain FINDINGS: The bowel gas pattern shows no dilated, air-filled loops of bowel. Gas and fecal material are noted throughout the rectum and large bowel. No mass effect or organomegaly. Surgical clips project over the right upper quadrant of the abdomen likely related to prior cholecystectomy. Tubal ligation devices project over the pelvis. Regional skeletal structures are intact. CONCLUSION: Nonobstructive bowel gas pattern. Dictated by: Marvel Mallory M.D. on 05/30/2018 at 11:11 Electronically approved by: Marvel Mallory M.D. on 05/30/2018 at 11:11
[2018-05-30] MEDS: ZOLPIDEM TARTRATE 10 MG TAB PO SCH (21:14)
[2018-05-31] VITALS (8 sets, daily range): BP systolic 105–160; BP diastolic 58–92
[2018-05-31] MEDS: VANCOMYCIN 250MG/5ML ORAL SOLN PO SCH ×4 (00:32→17:48)
[2018-05-31] MEDS ORDERED: DIPHENOXYLATE/ATROPINE TAB PO PRN (04:30)
[2018-05-31] MEDS ORDERED: DIPHENOXYLATE/ATROPINE TAB PO ONE (04:30)
[2018-05-31] MEDS: PROMETHAZINE 12.5MG/ NACL 0.9% 50 ML IV PRN ×3 (04:56→17:48)
[2018-05-31] MEDS: HYDROMORPHONE 2MG/ML 2 MG/ML ML IV PRN ×3 (05:00→17:48)
[2018-05-31] MEDS: SUCRALFATE 1 GM TAB PO SCH ×4 (05:00→20:20)
[2018-05-31 05:13] LABS: BASOPHILS % 0.2 % (0.0-1.0); EOSINOPHILS # (AUTO) 0.4 (0.0-0.4); EOSINOPHILS % 8.1 % (0.0-6.0); HEMATOCRIT 30.9 % (34.2-44.1); LYMPHOCYTES # (AUTO) 1.7 (1.0-3.2); LYMPHOCYTES % 38.2 % (18.0-39.1); MEAN CORPUSCULAR HEMOGLOBIN 27.3 pg (28-32); MEAN CORPUSCULAR HGB CONC 32.4 g/dL (31-35); MEAN CORPUSCULAR VOLUME 84.4 fL (81-99); MONOCYTES # (AUTO) 0.5 (0.2-0.8); MONOCYTES % 10.6 % (4.4-11.3); NEUTROPHILS # (AUTO) 1.9 (2.1-6.9); NEUTROPHILS % 42.9 % (38.7-80.0); PLATELET COUNT 194 x10e3/uL (140-360); RED BLOOD COUNT 3.66 x10e6/uL (3.6-5.1); RED CELL DISTRIBUTION WIDTH 16.2 % (11.7-14.4)
[2018-05-31] MEDS: METRONIDAZOLE 500MG/NS 100ML 100 ML IV SCH ×4 (05:33→18:27)
[2018-05-31 05:36] LABS: ANION GAP 12.5 mmol/L (8-16); BLOOD UREA NITROGEN 6 mg/dL (7-26); BUN/CREATININE RATIO 9 (6-25); CARBON DIOXIDE 22 mmol/L (22-29); CHLORIDE 110 mmol/L (98-107); CREATININE, SERUM 0.69 mg/dL (0.57-1.11); EST GLOMERULAR FILTRATION RATE > 60 ML/MIN (60-); GLUCOSE 97 mg/dL (74-118); MAGNESIUM 2.1 MG/DL (1.3-2.1); POTASSIUM 3.5 mmol/L (3.5-5.1); SODIUM 141 mmol/L (136-145)
[2018-05-31] MEDS: CYANOCOBALAMIN INJ 1,000 MCG/ML VIAL IM SCH (09:15)
[2018-05-31] MEDS: ALPRAZOLAM 1 MG TAB PO SCH ×3 (09:15→20:29)
[2018-05-31] MEDS: CARVEDILOL 12.5 MG TAB PO SCH ×3 (09:15→20:29)
[2018-05-31] MEDS: CEPHALEXIN 500 MG CAP PO SCH ×2 (09:15→20:29)
[2018-05-31] MEDS: FAMOTIDINE 20 MG/2 ML VIAL IV SCH ×2 (09:15→16:52)
--- NOTE | 2018-05-31 12:02 | Progress Note ---
DATE: May 30, 2018 FOLLOWUP PROGRESS NOTE REASON FOR FOLLOWUP: Pain management. SUBJECTIVE: Patient has multiple issues and ongoing pain. Pain is 2-10/10 on a scale of 10, 10 being worse. Pain is constant looking, dull, sharp, abdominal pain. She also has history of pancreatic cancer. ALLERGIES: MULTIPLE ALLERGIES TO CODEINE, TRAMADOL, FENTANYL, DEXAMETHASONE, IODINE CONTRAST, AND TEGADERM. CURRENT MEDICATIONS: She is on Promethazine, hydromorphone 1 mg q.4h., Xanax 1 mg 3 times a day, zolpidem 10 mg by the hospitalist. Pain has remained 10/10 all the time. PHYSICAL EXAMINATION GENERAL: Pain, but not in acute distress. VITAL SIGNS: Normal. Temperature 97.8, heart rate 90, blood pressure 140/64, respiratory rate 18, saturation 100%. Height 5 feet, weight 152 pounds. LAB DATA: Was noted. Hemoglobin 10, hematocrit 30. ASSESSMENT AND PLAN: Discussed with this patient with chronic recurrent flare-up of abdominal pain due to pancreatic cancer, undergoing chemotherapy in medical center. She somehow did manage to get ER physician at the [facility] to keep prescribing her Dilaudid she desired all the time. History of multiple hospitalizations in the past multiple times. Initially, pain medication ordered by the urologist, Dr. Eliot Carlos who gave her pain medication and to keep it on for a while, then drop her out of her practice. Possibilities of dependence cannot be ruled out, but pancreatic cancer pain justified the use of pain medication under monitor control. We will follow. Job#: [id number] SUB
[2018-05-31] MEDS: SODIUM CHLORIDE 0.9% 1000ML 1,000 ML IV SCH ×2 (16:55→16:57)
[2018-05-31] MEDS: ZOLPIDEM TARTRATE 10 MG TAB PO SCH (20:20)
[2018-06-01] VITALS (8 sets, daily range): BP systolic 102–139; BP diastolic 55–98
[2018-06-01] MEDS ORDERED: DIPHENOXYLATE/ATROPINE TAB PO ONE
[2018-06-01] MEDS ORDERED: DIPHENOXYLATE/ATROPINE TAB PO PRN
[2018-06-01] MEDS: VANCOMYCIN 250MG/5ML ORAL SOLN PO SCH ×4 (00:19→17:45)
[2018-06-01] MEDS: PROMETHAZINE 12.5MG/ NACL 0.9% 50 ML IV PRN ×5 (00:20→22:20)
[2018-06-01] MEDS: HYDROMORPHONE 2MG/ML 2 MG/ML ML IV PRN ×5 (00:20→22:20)
[2018-06-01] MEDS: METRONIDAZOLE 500MG/NS 100ML 100 ML IV SCH ×4 (00:49→18:28)
[2018-06-01 04:49] LABS: BASOPHILS % 0.4 % (0.0-1.0); EOSINOPHILS # (AUTO) 0.4 (0.0-0.4); EOSINOPHILS % 9.1 % (0.0-6.0); HEMATOCRIT 31.8 % (34.2-44.1); HEMOGLOBIN 10.2 g/dL (12.0-16.0); LYMPHOCYTES # (AUTO) 1.8 (1.0-3.2); LYMPHOCYTES % 38.3 % (18.0-39.1); MEAN CORPUSCULAR HEMOGLOBIN 27.1 pg (28-32); MEAN CORPUSCULAR HGB CONC 32.1 g/dL (31-35); MEAN CORPUSCULAR VOLUME 84.6 fL (81-99); MONOCYTES # (AUTO) 0.6 (0.2-0.8); MONOCYTES % 12.7 % (4.4-11.3); NEUTROPHILS # (AUTO) 1.9 (2.1-6.9); NEUTROPHILS % 39.5 % (38.7-80.0); PLATELET COUNT 211 x10e3/uL (140-360); RED BLOOD COUNT 3.76 x10e6/uL (3.6-5.1); RED CELL DISTRIBUTION WIDTH 16.2 % (11.7-14.4)
[2018-06-01 05:07] LABS: ANION GAP 11.6 mmol/L (8-16); BLOOD UREA NITROGEN 5 mg/dL (7-26); BUN/CREATININE RATIO 7 (6-25); CALCIUM 9.2 mg/dL (8.4-10.2); CARBON DIOXIDE 22 mmol/L (22-29); CHLORIDE 108 mmol/L (98-107); CREATININE, SERUM 0.68 mg/dL (0.57-1.11); EST GLOMERULAR FILTRATION RATE > 60 ML/MIN (60-); GLUCOSE 100 mg/dL (74-118); POTASSIUM 3.6 mmol/L (3.5-5.1); SODIUM 138 mmol/L (136-145)
[2018-06-01] MEDS: SUCRALFATE 1 GM/10 ML SUSP PO SCH ×4 (07:30→22:05)
[2018-06-01] MEDS: CEPHALEXIN 500 MG CAP PO SCH ×4 (09:00→22:15)
[2018-06-01] MEDS: DIPHENOXYLATE/ATROPINE TAB PO SCH ×2 (09:00→17:45)
[2018-06-01] MEDS: CARVEDILOL 12.5 MG TAB PO SCH ×3 (09:40→21:00)
[2018-06-01] MEDS: ALPRAZOLAM 1 MG TAB PO SCH ×3 (09:40→16:05)
[2018-06-01] MEDS: KCL 20MEQ/.9 SOD CHL 1,000 ML IV SCH ×2 (09:40→22:35)
[2018-06-01] MEDS: FAMOTIDINE 20 MG/2 ML VIAL IV SCH ×2 (09:40→17:45)
[2018-06-01] MEDS: CYANOCOBALAMIN INJ 1,000 MCG/ML VIAL IM SCH (09:40)
[2018-06-01] MEDS ORDERED: METOCLOPRAMIDE HCL 10 MG/2ML VIAL IV ONE (12:45)
[2018-06-01] MEDS ORDERED: METOCLOPRAMIDE HCL 10 MG/2ML VIAL IV SCH (18:00)
[2018-06-01] MEDS ORDERED: DICYCLOMINE HCL 20 MG TAB PO STA (22:44)
[2018-06-02] MEDS: ZOLPIDEM TARTRATE 10 MG TAB PO SCH (00:15)
[2018-06-02 00:29] VITALS: BP 119/66
[2018-06-02 03:44] LABS: BASOPHILS % 0.4 % (0.0-1.0); EOSINOPHILS # (AUTO) 0.4 (0.0-0.4); EOSINOPHILS % 7.1 % (0.0-6.0); HEMATOCRIT 29.5 % (34.2-44.1); HEMOGLOBIN 9.6 g/dL (12.0-16.0); LYMPHOCYTES # (AUTO) 1.6 (1.0-3.2); LYMPHOCYTES % 31.8 % (18.0-39.1); MEAN CORPUSCULAR HEMOGLOBIN 27.2 pg (28-32); MEAN CORPUSCULAR HGB CONC 32.5 g/dL (31-35); MEAN CORPUSCULAR VOLUME 83.6 fL (81-99); MONOCYTES # (AUTO) 0.5 (0.2-0.8); MONOCYTES % 9.4 % (4.4-11.3); NEUTROPHILS # (AUTO) 2.5 (2.1-6.9); NEUTROPHILS % 51.3 % (38.7-80.0); PLATELET COUNT 211 x10e3/uL (140-360); RED BLOOD COUNT 3.53 x10e6/uL (3.6-5.1); RED CELL DISTRIBUTION WIDTH 16.1 % (11.7-14.4)
[2018-06-02] MEDS ORDERED: SODIUM CHLORIDE 0.9% 50ML 50 ML ONE (03:47)
[2018-06-02] MEDS: PROMETHAZINE 12.5MG/ NACL 0.9% 50 ML IV PRN ×3 (03:55→16:00)
[2018-06-02] MEDS: HYDROMORPHONE 2MG/ML 2 MG/ML ML IV PRN ×4 (03:55→16:00)
[2018-06-02 03:57] LABS: ANION GAP 11.8 mmol/L (8-16); BLOOD UREA NITROGEN 8 mg/dL (7-26); BUN/CREATININE RATIO 11 (6-25); CALCIUM 9.7 mg/dL (8.4-10.2); CARBON DIOXIDE 22 mmol/L (22-29); CHLORIDE 108 mmol/L (98-107); CREATININE, SERUM 0.72 mg/dL (0.57-1.11); EST GLOMERULAR FILTRATION RATE > 60 ML/MIN (60-); GLUCOSE 107 mg/dL (74-118); MAGNESIUM 1.9 MG/DL (1.3-2.1); POTASSIUM 3.8 mmol/L (3.5-5.1); SODIUM 138 mmol/L (136-145)
[2018-06-02] MEDS: METRONIDAZOLE 500MG/NS 100ML 100 ML IV SCH ×4 (05:54→18:00)
[2018-06-02] MEDS: METOCLOPRAMIDE HCL 10 MG/2ML VIAL IV SCH ×4 (05:54→18:00)
[2018-06-02] MEDS: VANCOMYCIN 250MG/5ML ORAL SOLN PO SCH ×4 (06:30→18:00)
[2018-06-02 06:34] VITALS: BP 141/66
[2018-06-02 08:00] VITALS: BP 128/71
[2018-06-02] MEDS: FAMOTIDINE 20 MG/2 ML VIAL IV SCH ×2 (08:58→17:00)
[2018-06-02] MEDS: ALPRAZOLAM 1 MG TAB PO SCH ×2 (08:58→15:40)
[2018-06-02] MEDS: CYANOCOBALAMIN INJ 1,000 MCG/ML VIAL IM SCH (08:58)
[2018-06-02] MEDS: SUCRALFATE 1 GM/10 ML SUSP PO SCH ×3 (08:58→16:30)
[2018-06-02] MEDS: CARVEDILOL 12.5 MG TAB PO SCH ×2 (08:59→15:41)
[2018-06-02] MEDS ORDERED: VANCOMYCIN PO (09:21)
[2018-06-02] MEDS ORDERED: SUCRALFATE1 G/10 ML PO (09:21)
[2018-06-02] MEDS ORDERED: DICYCLOMINE HCL20 MG PO (09:21)
[2018-06-02] MEDS ORDERED: PROMETHAZINE HC25 M1 PO (09:21)
[2018-06-02] MEDS ORDERED: FLUCONAZOLE 100 MG TAB PO ONE (09:30)
[2018-06-02] MEDS: DICYCLOMINE HCL 20 MG TAB PO SCH ×3 (10:00→18:00)
[2018-06-02] MEDS: KCL 20MEQ/.9 SOD CHL 1,000 ML IV SCH (11:55)
[2018-06-02 12:00] VITALS: BP 155/82
[2018-06-02 12:30] VITALS: BP 155/82
[2018-06-02 16:00] VITALS: BP 134/80
--- NOTE | 2018-06-04 08:40 | Discharge Summary ---
ADMISSION DIAGNOSES 1. Chronic abdominal pain and nausea secondary to pancreatic cancer. 2. Medullary . 3. Elevated . 4. Gastrointestinal bleed. 5. Anemia. PAST MEDICAL HISTORY: Patient has a history of chronic pain, recurrent UTIs, medullary sponge kidneys, pancreatitis with pancreatic cancer, taking chemotherapy in the medical center, tachycardia, VRE of the urine, and insomnia. HOSPITAL COURSE: A 37-year-old female with complaints of left upper quadrant abdominal pain and nausea and diarrhea cancer and has been off of chemo since April. She also has medullary sponge kidneys and was being treated for VRE of the urine. She has been unable to keep food or meals down for 2 . On admission, patient was started on Dilaudid, promethazine, and IV fluids. Pain management was consulted as well as urology for VRE of the urine. Patient had UA on admission, which was negative. She also had abdominal x-ray that showed non-obstructive bowel gas pattern. Patient's lipase and amylase were within normal limits. Patient's stool was then tested for blood and C. difficile and both came back positive. She was started on vancomycin p.o. and Flagyl. Per patient's account, the diarrhea was not getting better, so she was put on Lomotil, which she says did not work, then she was put on Bentyl, which she said did not work, meanwhile continuing to ask for her Dilaudid around the clock. After speaking with the nurses, no one has seen the patient's nausea or diarrhea, so I asked the patient to ensure that she tell the nurses before she went to the restroom or if she felt like she was going to get sick, so that they could witness. Of course, she did not comply. I then told her that I am going to put her in a room to ensure that our measurements are correct and they are documenting correctly. She said that she would refuse. I told her that I would order it because we need it to get correct documentation. Patient then began to feel better almost immediately and was able to keep down all of her food. She quite often changed her story based on who she was talking to. Patient will discharge home with sucralfate, Bentyl, promethazine, vancomycin for 6 more days p.o., and 5 tabs of Tylenol No. 3. She follows pain management outpatient. She told me on admission that she had seen him the day prior to discharge. Upon discharge, she told and said that she did not have any pain medicine. When I called the pharmacy to call in her Reglan, they told me she had picked up 10 hydromorphone on the day of admission, which of course patient said she did not remember. She will discharge home and follow up with the primary care in 1-2 weeks and GI as needed. Vital signs stable. Patient afebrile. Patient understands discharge instructions and agrees to plan. She is tolerating her diet. Her labs and electrolytes are within normal limits. Dictated by: Antonella Gerard NP Job#: [id number] [facility]
== END 2018-06-02 19:00 | disposition home or self-care (01) | DRG 372 ==
LOC: ER 17:25 → ERHOLD 23:43 → IMCU 05-29 00:35 → OBSVTOIN 05-30 11:50 → MED/SURG2 05-30 14:29
PROVIDERS: ADMIT Internal Medicine; ATTEND Internal Medicine
DX: A04.72 Enterocolitis due to Clostridium difficile, not specified as recurrent (principal); C25.9 Malignant neoplasm of pancreas, unspecified; Q61.5 Medullary cystic kidney; N39.0 Urinary tract infection, site not specified; K92.2 Gastrointestinal hemorrhage, unspecified; G89.3 Neoplasm related pain (acute) (chronic); D64.9 Anemia, unspecified; G47.00 Insomnia, unspecified; F41.9 Anxiety disorder, unspecified; Z88.5 Allergy status to narcotic agent; Z88.8 Allergy status to other drugs, medicaments and biological substances; Z91.041 Radiographic dye allergy status; R31.9 Hematuria, unspecified; Z87.440 Personal history of urinary (tract) infections; Z91.19 Patient's noncompliance with other medical treatment and regimen
CPT/HCPCS: 36415; 74018; 80048; 80053; 80076; 81001; 81025; 82150; 82270; 82607; 82728; 82746; 83540; 83690; 83735; 84466; 85025; 87045; 87493; 96361; 96367; 96372; 99284; G0378; J2550; J2765; J3420; J7030; J7050

== ENCOUNTER 2018-06-17 15:34 | Emergency (ER) | payer OTHER ==
[~2018-06-17] VITALS: Ht 152.4 cm; Wt 67.1 kg
[~2018-06-17 15:34] MED LIST changes: +DICYCLOMINE HCL20 MG PO; +PROMETHAZINE HC25 M1 PO; +SUCRALFATE1 G/10 ML PO; +VANCOMYCIN PO
--- OUTSIDE RECORDS SUMMARY | 2018-06-17 15:39 | XMS REPORT | Clinical Summary ---
Author Author [facility] Organization [facility] Address Unknown Phone Unavailable Care Team Providers Care General Operations Manager Name Role Phone Asked, No Pcp PCP [...] Emergency General Internal Medicine - 08/29/2017 after 06/16/2017 Social History Date Tobacco Use Types Packs/Day [...] CDT ZZESTIMATED GFR STAT 08/28/2017 6:02 PM DANCE MASTER HC COMPLETE BLD COUNT STAT 08/28/2017 W/AUTO DIFF 6:02 PM DANCE MASTER COMPREHENSIVE METABOLIC STAT 08/28/2017 PANEL 6:02 PM DANCE MASTER XR FOREARM 2 VW RIGHT STAT 08/28/2017 5:17 PM DANCE MASTER XR FOREARM 2 VW RIGHT STAT 08/28/2017 3:27 PM DANCE MASTER after 06/16/2017 Results * CT Abdomen Pelvis Wo Contrast [...] calculi are visualized. No hydronephrosis. [id number] Procedure Note Interface, Radiology Results Incoming - [...] calculi are visualized. No hydronephrosis. [id number] Performing Organization Address City/[facility] Cent[facility]ode Phone Number [place] [address] [place] [address] * Estimated GFR (12/08/2017 9:12 PM CDT) Only the most recent of 3 results within the time period is included. GFR Non Af Amer >90 mL/min/1.73 m2 [facility] DEPARTMENT OF PATHOLOGY AND GENOMIC MEDICINE GFR Af Amer >90 mL/min/1.73 m2 [facility] DEPARTMENT OF Comment: PATHOLOGY AND Chronic [...] Americans. Specimen Plasma specimen Performing Organization Address City/[facility]/Zipcode Phone Number [address] [address] PATHOLOGY AND GENOMIC MEDICINE * CBC with platelet and differential (12/08/2017 9:12 PM CDT) Only the most recent of 3 results within the time period is included. WBC 3.24 (L) 4.50 - 11.00 k/uL [facility] DEPARTMENT OF PATHOLOGY AND GENOMIC MEDICINE RBC 3.65 (L) 4.20 - 5.50 m/uL [facility] DEPARTMENT OF PATHOLOGY AND GENOMIC MEDICINE HGB 8.9 (L) 12.0 - 16.0 g/dL [facility] DEPARTMENT OF PATHOLOGY AND GENOMIC MEDICINE HCT 28.3 (L) 37.0 - 47.0 % [facility] DEPARTMENT OF PATHOLOGY AND GENOMIC MEDICINE MCV 77.5 (L) 82.0 - 100.0 fL [facility] DEPARTMENT OF PATHOLOGY AND GENOMIC MEDICINE MCH 24.4 (L) 27.0 - 34.0 pg [facility] DEPARTMENT OF PATHOLOGY AND GENOMIC MEDICINE MCHC 31.4 31.0 - 37.0 g/dL [facility] DEPARTMENT OF PATHOLOGY AND GENOMIC MEDICINE RDW - SD 48.8 37.0 - 55.0 fL [facility] DEPARTMENT OF PATHOLOGY AND GENOMIC MEDICINE MPV 10.0 8.8 - 13.2 fL [facility] DEPARTMENT OF PATHOLOGY AND GENOMIC MEDICINE Platelet count 285 150 - 400 k/uL [facility] DEPARTMENT OF PATHOLOGY AND GENOMIC MEDICINE Nucleated RBC 0.00 /100 WBC [facility] DEPARTMENT OF PATHOLOGY AND GENOMIC MEDICINE Neutrophils 36.8 (L) 39.0 - 69.0 % [facility] DEPARTMENT OF PATHOLOGY AND GENOMIC MEDICINE Lymphocytes 47.8 (H) 25.0 - 45.0 % [facility] DEPARTMENT OF PATHOLOGY AND GENOMIC MEDICINE Monocytes 11.4 (H) 0.0 - 10.0 % [facility] DEPARTMENT OF PATHOLOGY AND GENOMIC MEDICINE Eosinophils 3.4 0.0 - 5.0 % [facility] DEPARTMENT OF PATHOLOGY AND GENOMIC MEDICINE Basophils 0.3 0.0 - 1.0 % [facility] DEPARTMENT OF PATHOLOGY AND GENOMIC MEDICINE Immature granulocytes 0.3Comment: "Immature 0.0 - 1.0 % [facility] DEPARTMENT OF granulocytes" (promyelocytes, PATHOLOGY AND myelocytes, metamyelocytes) [facility] MEDICINE Specimen Blood Performing Organization Address City/State/Zipcode Phone Number [facility] DEPARTMENT OF [address] [place] [address] PATHOLOGY AND GENOMIC MEDICINE * hCG qualitative, serum screen (12/08/2017 9:12 PM CDT) hCG qualitative, serum NegativeComment: Sensitivity [facility] DEPARTMENT OF of HCG test: 25 mIU/mL PATHOLOGY AND GENOMIC MEDICINE Specimen Blood Performing Organization Address City/[facility]ode Phone Number [facility] DEPARTMENT OF [address] [place] [id number] PATHOLOGY AND GENOMIC MEDICINE * Lipase level (12/08/2017 9:12 PM CDT) Only the most recent of 2 results within the time period is included. Lipase 20 13 - 60 U/L [facility] DEPARTMENT OF PATHOLOGY AND GENOMIC MEDICINE Specimen Plasma specimen Performing Organization Address City/[facility]ode Phone Number [facility] DEPARTMENT [address] [address] PATHOLOGY AND GENOMIC MEDICINE * Comprehensive metabolic panel (12/08/2017 9:12 PM CDT) Only the most recent of 3 results within the time period is included. Sodium 138 135 - 148 mEq/L [facility] DEPARTMENT OF PATHOLOGY AND GENOMIC MEDICINE Potassium 3.9 3.5 - 5.0 mEq/L [facility] DEPARTMENT OF PATHOLOGY AND GENOMIC MEDICINE Chloride 101 98 - 112 mEq/L [facility] DEPARTMENT OF PATHOLOGY AND GENOMIC MEDICINE CO2 24 24 - 31 mEq/L [facility] DEPARTMENT OF PATHOLOGY AND GENOMIC MEDICINE Anion gap 13@ANIO 7 - 15 mEq/L [facility] DEPARTMENT OF PATHOLOGY AND GENOMIC MEDICINE BUN 11 6 - 20 mg/dL [facility] DEPARTMENT OF PATHOLOGY AND GENOMIC MEDICINE Creatinine 0.6 0.5 - 0.9 mg/dL [facility] DEPARTMENT OF PATHOLOGY AND GENOMIC MEDICINE Glucose 98 65 - 99 mg/dL [facility] DEPARTMENT OF PATHOLOGY AND GENOMIC MEDICINE Calcium 9.4 8.3 - 10.2 mg/dL [facility] DEPARTMENT OF PATHOLOGY AND GENOMIC MEDICINE Protein 7.7 6.3 - 8.3 g/dL [facility] DEPARTMENT OF Comment: PATHOLOGY AND [place] GENOMIC MEDICINE 4.6-7.0 g/dL 1 week 4.4-7.6 g/dL 7 months-1year 5.1-7.3 g/dL 1-2 years5.6-7 .5 g/dL >3 years6.0-8 .0 g/dL 18-150 6.3-8.3 g/dL Albumin 3.9 3.5 - 5.0 g/dL [facility] DEPARTMENT OF PATHOLOGY AND GENOMIC MEDICINE A/G ratio 1.0 0.7 - 3.8 [facility] DEPARTMENT OF PATHOLOGY AND GENOMIC MEDICINE Alkaline phosphatase 137 (H) 35 - 104 U/L [facility] DEPARTMENT OF PATHOLOGY AND GENOMIC MEDICINE AST 30 10 - 35 U/L [facility] DEPARTMENT OF PATHOLOGY AND GENOMIC MEDICINE ALT 40 5 - 50 U/L [facility] DEPARTMENT OF PATHOLOGY AND GENOMIC MEDICINE Total bilirubin 0.3 0.0 - 1.2 mg/dL [facility] DEPARTMENT OF PATHOLOGY AND GENOMIC MEDICINE Specimen Plasma specimen Performing Organization Address City/[facility] Centercode Phone Number [address] [address] [facility] MEDICINE * Urinalysis screen and microscopy, with reflex to culture (12/08/2017 8:10 PM CDT) Only the most recent of 2 results within the time period is included. Specimen site Clean catch [facility] DEPARTMENT OF PATHOLOGY AND GENOMIC MEDICINE Color, UA Straw [facility] DEPARTMENT OF PATHOLOGY AND GENOMIC MEDICINE Appearance, UA Hazy [facility] DEPARTMENT OF PATHOLOGY AND GENOMIC MEDICINE Specific gravity, UA 1.013 1.001 - 1.035 [facility] DEPARTMENT OF PATHOLOGY AND GENOMIC MEDICINE pH, UA 7.0 5.0 - 8.5 [facility] DEPARTMENT OF PATHOLOGY AND GENOMIC MEDICINE Protein, UA Negative Negative [facility] DEPARTMENT OF PATHOLOGY AND GENOMIC MEDICINE Glucose, UA Negative Negative [facility] DEPARTMENT OF PATHOLOGY AND GENOMIC MEDICINE Ketones, UA Negative Negative [facility] DEPARTMENT OF PATHOLOGY AND GENOMIC MEDICINE Bilirubin, UA Negative Negative [facility] DEPARTMENT OF PATHOLOGY AND GENOMIC MEDICINE Blood, UA Negative Negative [facility] DEPARTMENT OF PATHOLOGY AND GENOMIC MEDICINE Nitrite, UA Negative Negative [facility] DEPARTMENT OF PATHOLOGY AND GENOMIC MEDICINE Urobilinogen, UA <2.0 <2.0 [facility] DEPARTMENT OF PATHOLOGY AND GENOMIC MEDICINE Leukocyte esterase, UA Negative Negative [facility] DEPARTMENT OF PATHOLOGY AND GENOMIC MEDICINE Epithelial cells, UA 12 /HPF [facility] DEPARTMENT OF PATHOLOGY AND GENOMIC MEDICINE WBC, UA 8 (H) 0 - 4 /HPF [facility] DEPARTMENT OF PATHOLOGY AND GENOMIC MEDICINE RBC, UA 1 0 - 5 /HPF [facility] DEPARTMENT OF PATHOLOGY AND GENOMIC MEDICINE Bacteria, UA Moderate (A) None seen [facility] DEPARTMENT OF PATHOLOGY AND GENOMIC MEDICINE Yeast, UA None seen [facility] DEPARTMENT OF PATHOLOGY AND GENOMIC MEDICINE Yeast with pseudohyphae, None seen [facility] DEPARTMENT OF PATHOLOGY AND GENOMIC MEDICINE Specimen Urine Performing Organization Address City/[facility]ode Phone Number [address] [address] [address] [facility] MEDICINE * Gram stain (12/08/2017 8:10 PM CDT) Only the most recent of 2 results within the time period is included. Gram stain result Few WBC's [facility] DEPARTMENT OF Moderate Gram positive rods PATHOLOGY AND Comment: GENOMIC MEDICINE Specimen Information Specimen Source: Urine Specimen Site: Clean catch Specimen Urine Performing Organization Address City/[facility]/Zipcode Phone Number [facility] DEPARTMENT OF [address] [place] [address] PATHOLOGY AND GENOMIC MEDICINE * Urine culture (12/08/2017 8:10 PM CDT) Only the most recent of 2 results within the time period is included. Urine culture isolate Mixed Gram positive rachele [facility] DEPARTMENT OF 10-2 cfu/ml PATHOLOGY AND (A) GENOMIC MEDICINE Comment: Specimen Information Specimen Source: Urine Specimen Site: Clean catch Specimen Urine Performing Organization Address City/[facility]/Zipcode Phone Number [facility] DEPARTMENT OF [address] [place] [address] PATHOLOGY AND GENOMIC MEDICINE * Amylase level (10/14/2017 11:37 AM CDT) Amylase 45 13 - 73 U/L [facility] DEPARTMENT OF PATHOLOGY AND GENOMIC MEDICINE Specimen Plasma specimen Performing Organization Address City/[facility]ercode Phone Number [facility] [place] [id number] [place] [address] [place] [address] PATHOLOGY AND GENOMIC MEDICINE * XR Forearm 2 Vw Right (08/28/2017 5:17 PM DANCE MASTER) Only the most recent of 2 results within the time period is included. Narrative Performed At EXAMINATION:XR FOREARM 2 VW RIGHT [facility] CLINICAL HISTORY:s p wound cleaning. re evaluate for FB COMPARISON:None. IMPRESSION: There is some subcutaneous air adjacent to the distal radius. No metallic foreign body is noted. [id number] Procedure Note Hm Interface, Radiology Results Incoming - 08/28/2017 5:48 PM DANCE MASTER EXAMINATION: XR FOREARM 2 VW RIGHT CLINICAL HISTORY: s p wound cleaning. re evaluate for FB COMPARISON: None. IMPRESSION: There is some subcutaneous air adjacent to the distal radius. No metallic foreign body is noted. [id number] Performing Organization Address City/State/Zipcode Phone Number [facility] [address] [place] [address] after 06/16/2017 Insurance Payer Benefit Subscriber ID Type Phone Address Plan / Group [facility]/PPO THCARE CHOICE/CHO ICE + [facility] H[facility]/PPO THCARE CHOICE/CHO ICE + [facility] x[facility] HMO/PPO THCARE CHOICE/CHO ICE + Advance Directives Patient has advance care planning documents, and code status on file. For more i nformation, please contact: Timo Anne [address] [place] [address] Date Inactivated Comments Code Status Date Activated 01/15/2017 4:57 AM Full Code 01/14/2017 1:34 PM Code Status decision reached by: Patient
--- OUTSIDE RECORDS SUMMARY | 2018-06-17 15:39 | XMS REPORT | Continuity of Care Document ---
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 Enmelloet Rahim Tachycardia Active Diagnosis 08/15/2016 Enayet Rahim Nephrolithiasis Active Problem 09/23/2016 Enayet Rahim Anxiety Active Problem 09/23/2016 Enmelloet Lilianm Acute cystitis with hematuria Active Problem 09/23/2016 Rosaura Quintanam Medications Medication Details Route Status Patient Instructions Ordering Provider Order Date Source Cipro 1 tablet Orally Active 500 MG Orally Twice a day [facility] 08/31/2016 Rosaura Reid Pyridium 1 tablet after meals Orally Active 200 MG Orally Three times a day [facility] 08/12/2016 [facility] Zyvox 1 tablet Orally Active 600 MG Orally every 12 hrs [facility] 07/13/2016 [facility] Acetaminophen-Codeine #3 1 tablet as needed Orally Active 300- 30 MG Orally every 6 hrs [facility] 06/15/2016 Rosaura Quintana Promethazine HCl 1 tablet as needed Orally Active 12.5 MG Orally every 6 hrs [facility] 06/15/2016 [facility] Alprazolam 1/2 half tablet Orally Active 1 MG Orally Twice a day [facility] Carvedilol 1 tablet Orally Active 12.5 MG Orally twice a day [facility] Potassium Citrate ER not defined Orally Active 10 MEQ (1080 MG) Orally twice a day [facility] Bactrim 2 tablets Orally Active 400-80 MG Orally Once a day [facility] Pyridium 1 tablet after meals Orally Active 200 MG Orally Three times a day [facility] Levaquin 1 tablet Orally Active 500 MG Orally Once a day [facility] Allergies, Adverse Reactions, Alerts Substance Category Reaction [...] Source Rosaura Reid MD, PA Sick Visit [id number] 06/15/2016 06/15/2016 Rosaura Reid MD, PA Sick Visit [id number] 06/15/2016 06/15/2016 Rosaura Reid MD, PA Sick Visit [id number] 06/15/2016 06/15/2016 Rosaura Reid MD, PA Sick Visit [id number] 06/15/2016 06/15/2016 Rosaura Reid MD, PA Sick Visit [id number] 06/15/2016 06/15/2016 Rosaura Reid MD, PA d/c from hospital pt needed refill dr neha correa [id number] 07/13/2016 07/13/2016 Rosaura Reid MD, PA d/c from hospital pt needed refill dr neha correa [id number] 07/13/2016 07/13/2016 Rosaura Reid MD, PA d/c from hospital pt needed refill dr neha correa [id number] 07/13/2016 07/13/2016 Rosaura Reid MD, PA d/c from hospital pt needed refill dr neha correa [id number] 07/13/2016 07/13/2016 Rosaura Reid MD, PA Sick Visit [id number] 08/05/2016 08/05/2016 Rosaura Reid MD, PA Sick Visit [id number] 08/05/2016 08/05/2016 Rosaura Reid MD, PA Sick Visit [id number] 08/05/2016 08/05/2016 Rosaura Reid MD, PA Sick Visit [id number] 08/31/2016 08/31/2016 Rosaura Reid MD, PA Sick Visit [id number] 08/31/2016 08/31/2016 Rosaura Reid MD, PA kidney stones [id number] 09/02/2016 09/02/2016 Rosaura Reid Procedures Procedure Code Date Perfomer Comments Source
[2018-06-17] MEDS ORDERED: VANCOMYCIN 1GM/NS 250 ML 250 ML IV ONE (17:00)
[2018-06-17] MEDS ORDERED: CEFEPIME HCL 1 GM VIAL IV SCH (22:00)
[2018-06-18] MEDS ORDERED: CREON DR 24,001 EACH PO (23:09)
[2018-06-18] MEDS ORDERED: NEUPOGEN480 MCG/1. SC (23:09)
== END 2018-06-17 16:08 | disposition left against medical advice (07) ==
LOC: ER 15:34
DX: R11.2 Nausea with vomiting, unspecified (principal); R10.32 Left lower quadrant pain
CPT/HCPCS: 99281

== ENCOUNTER 2018-06-18 16:01 | Inpatient (IN) | payer OTHER ==
[~2018-06-18] VITALS: Ht 152.4 cm; Wt 67.1 kg
--- OUTSIDE RECORDS SUMMARY | 2018-06-18 16:06 | XMS REPORT | Clinical Summary ---
Author Author [facility] Address Unknown Phone Unavailable Care Team Providers Care Public Service Officer Name Role Phone Asked, No Pcp PCP [...] Emergency General Internal Medicine - 08/29/2017 after 06/17/2017 Social History Date Tobacco Use Types Packs/Day [...] CDT ZZESTIMATED GFR STAT 08/28/2017 6:02 PM WASTEWATER MANAGER HC COMPLETE BLD COUNT STAT 08/28/2017 W/AUTO DIFF 6:02 PM WASTEWATER MANAGER COMPREHENSIVE METABOLIC STAT 08/28/2017 PANEL 6:02 PM WASTEWATER MANAGER XR FOREARM 2 VW RIGHT STAT 08/28/2017 5:17 PM WASTEWATER MANAGER XR FOREARM 2 VW RIGHT STAT 08/28/2017 3:27 PM WASTEWATER MANAGER after 06/17/2017 Results * CT Abdomen Pelvis Wo Contrast [...] urinary bladder calculi are visualized. No hydronephrosis. [facility]-[id number] Procedure Note Interface, Radiology Results Incoming - [...] urinary bladder calculi are visualized. No hydronephrosis. [facility]-[id number] Performing Organization Address City/[facility] Services[facility] Phone Number [place] [phone] [place] [address] * Estimated GFR (12/08/2017 9:12 PM CDT) Only the most recent of 3 results within the time period is included. GFR Non Af Amer >90 mL/min/1.73 m2 [facility] DEPARTMENT OF PATHOLOGY AND GENOMIC MEDICINE GFR Af Amer >90 mL/min/1.73 m2 [facility] DEPARTMENT OF Comment: PATHOLOGY AND Chronic kidney [...] Americans. Specimen Plasma specimen Performing Organization Address City/[facility]/Zipcode Phone Number [address] [address] PATHOLOGY AND GENOMIC MEDICINE * CBC with platelet and differential (12/08/2017 9:12 PM CDT) Only the most recent of 3 results within the time period is included. WBC 3.24 (L) 4.50 - 11.00 k/uL [facility] DEPARTMENT OF PATHOLOGY AND GENOMIC MEDICINE RBC 3.65 (L) 4.20 - 5.50 m/uL [facility] DEPARTMENT OF PATHOLOGY AND GENOMIC MEDICINE HGB 8.9 (L) 12.0 - 16.0 g/dL [facility] DEPARTMENT OF PATHOLOGY AND GENOMIC MEDICINE HCT 28.3 (L) 37.0 - 47.0 % [facility] DEPARTMENT OF PATHOLOGY AND GENOMIC MEDICINE MCV 77.5 (L) 82.0 - 100.0 fL [facility] DEPARTMENT OF PATHOLOGY AND GENOMIC MEDICINE MCH 24.4 (L) 27.0 - 34.0 pg [facility] DEPARTMENT OF PATHOLOGY AND GENOMIC MEDICINE MCHC 31.4 31.0 - 37.0 g/dL [facility] DEPARTMENT OF PATHOLOGY AND GENOMIC MEDICINE RDW - SD 48.8 37.0 - 55.0 fL [facility] DEPARTMENT OF PATHOLOGY AND GENOMIC MEDICINE MPV 10.0 8.8 - 13.2 fL [facility] DEPARTMENT OF PATHOLOGY AND GENOMIC MEDICINE Platelet count 285 150 - 400 k/uL [facility] DEPARTMENT OF PATHOLOGY AND GENOMIC MEDICINE Nucleated RBC 0.00 /100 WBC [facility] DEPARTMENT OF PATHOLOGY AND GENOMIC MEDICINE Neutrophils 36.8 (L) 39.0 - 69.0 % [facility] DEPARTMENT OF PATHOLOGY AND GENOMIC MEDICINE Lymphocytes 47.8 (H) 25.0 - 45.0 % [facility] DEPARTMENT OF PATHOLOGY AND GENOMIC MEDICINE Monocytes 11.4 (H) 0.0 - 10.0 % [facility] DEPARTMENT OF PATHOLOGY AND GENOMIC MEDICINE Eosinophils 3.4 0.0 - 5.0 % [facility] DEPARTMENT OF PATHOLOGY AND GENOMIC MEDICINE Basophils 0.3 0.0 - 1.0 % [facility] DEPARTMENT OF PATHOLOGY AND GENOMIC MEDICINE Immature granulocytes 0.3Comment: "Immature 0.0 - 1.0 % [facility] DEPARTMENT OF granulocytes" (promyelocytes, PATHOLOGY AND myelocytes, metamyelocytes) [facility] MEDICINE Specimen Blood Performing Organization Address City/State/Zipcode Phone Number [facility] DEPARTMENT OF [address] [place] [address] PATHOLOGY AND GENOMIC MEDICINE * hCG qualitative, serum screen (12/08/2017 9:12 PM CDT) hCG qualitative, serum NegativeComment: Sensitivity [facility] DEPARTMENT OF of HCG test: 25 mIU/mL PATHOLOGY AND GENOMIC MEDICINE Specimen Blood Performing Organization Address City/[facility] Servicescode Phone Number [facility] DEPARTMENT OF [address] [place] [phone] PATHOLOGY AND GENOMIC MEDICINE * Lipase level (12/08/2017 9:12 PM CDT) Only the most recent of 2 results within the time period is included. Lipase 20 13 - 60 U/L [facility] DEPARTMENT OF PATHOLOGY AND GENOMIC MEDICINE Specimen Plasma specimen Performing Organization Address City/[facility] Servicescode Phone Number [facility] DEPARTMENT [address] [address] PATHOLOGY AND GENOMIC MEDICINE * Comprehensive metabolic panel (12/08/2017 9:12 PM CDT) Only the most recent of 3 results within the time period is included. Sodium 138 135 - 148 mEq/L [facility] DEPARTMENT OF PATHOLOGY AND GENOMIC MEDICINE Potassium 3.9 3.5 - 5.0 mEq/L [facility] DEPARTMENT OF PATHOLOGY AND GENOMIC MEDICINE Chloride 101 98 - 112 mEq/L [facility] DEPARTMENT OF PATHOLOGY AND GENOMIC MEDICINE CO2 24 24 - 31 mEq/L [facility] DEPARTMENT OF PATHOLOGY AND GENOMIC MEDICINE Anion gap 13@ANIO 7 - 15 mEq/L [facility] DEPARTMENT OF PATHOLOGY AND GENOMIC MEDICINE BUN 11 6 - 20 mg/dL [facility] DEPARTMENT OF PATHOLOGY AND GENOMIC MEDICINE Creatinine 0.6 0.5 - 0.9 mg/dL [facility] DEPARTMENT OF PATHOLOGY AND GENOMIC MEDICINE Glucose 98 65 - 99 mg/dL [facility] DEPARTMENT OF PATHOLOGY AND GENOMIC MEDICINE Calcium 9.4 8.3 - 10.2 mg/dL [facility] DEPARTMENT OF PATHOLOGY AND GENOMIC MEDICINE Protein 7.7 6.3 - 8.3 g/dL [facility] DEPARTMENT OF Comment: PATHOLOGY AND [place] GENOMIC MEDICINE 4.6-7.0 g/dL 1 week 4.4-7.6 g/dL 7 months-1year 5.1-7.3 g/dL 1-2 years5.6-7 .5 g/dL >3 years6.0-8 .0 g/dL 18-150 6.3-8.3 g/dL Albumin 3.9 3.5 - 5.0 g/dL [facility] DEPARTMENT OF PATHOLOGY AND GENOMIC MEDICINE A/G ratio 1.0 0.7 - 3.8 [facility] DEPARTMENT OF PATHOLOGY AND GENOMIC MEDICINE Alkaline phosphatase 137 (H) 35 - 104 U/L [facility] DEPARTMENT OF PATHOLOGY AND GENOMIC MEDICINE AST 30 10 - 35 U/L [facility] DEPARTMENT OF PATHOLOGY AND GENOMIC MEDICINE ALT 40 5 - 50 U/L [facility] DEPARTMENT OF PATHOLOGY AND GENOMIC MEDICINE Total bilirubin 0.3 0.0 - 1.2 mg/dL [facility] DEPARTMENT OF PATHOLOGY AND GENOMIC MEDICINE Specimen Plasma specimen Performing Organization Address City/[facility] Servicescode Phone Number [address] [address] PATHOLOGY AND [facility] MEDICINE * Urinalysis screen and microscopy, with reflex to culture (12/08/2017 8:10 PM CDT) Only the most recent of 2 results within the time period is included. Specimen site Clean catch [facility] DEPARTMENT OF PATHOLOGY AND GENOMIC MEDICINE Color, UA Straw [facility] DEPARTMENT OF PATHOLOGY AND GENOMIC MEDICINE Appearance, UA Hazy [facility] DEPARTMENT OF PATHOLOGY AND GENOMIC MEDICINE Specific gravity, UA 1.013 1.001 - 1.035 [facility] DEPARTMENT OF PATHOLOGY AND GENOMIC MEDICINE pH, UA 7.0 5.0 - 8.5 [facility] DEPARTMENT OF PATHOLOGY AND GENOMIC MEDICINE Protein, UA Negative Negative [facility] DEPARTMENT OF PATHOLOGY AND GENOMIC MEDICINE Glucose, UA Negative Negative [facility] DEPARTMENT OF PATHOLOGY AND GENOMIC MEDICINE Ketones, UA Negative Negative [facility] DEPARTMENT OF PATHOLOGY AND GENOMIC MEDICINE Bilirubin, UA Negative Negative [facility] DEPARTMENT OF PATHOLOGY AND GENOMIC MEDICINE Blood, UA Negative Negative [facility] DEPARTMENT OF PATHOLOGY AND GENOMIC MEDICINE Nitrite, UA Negative Negative [facility] DEPARTMENT OF PATHOLOGY AND GENOMIC MEDICINE Urobilinogen, UA <2.0 <2.0 [facility] DEPARTMENT OF PATHOLOGY AND GENOMIC MEDICINE Leukocyte esterase, UA Negative Negative [facility] DEPARTMENT OF PATHOLOGY AND GENOMIC MEDICINE Epithelial cells, UA 12 /HPF [facility] DEPARTMENT OF PATHOLOGY AND GENOMIC MEDICINE WBC, UA 8 (H) 0 - 4 /HPF [facility] DEPARTMENT OF PATHOLOGY AND GENOMIC MEDICINE RBC, UA 1 0 - 5 /HPF [facility] DEPARTMENT OF PATHOLOGY AND GENOMIC MEDICINE Bacteria, UA Moderate (A) None seen [facility] DEPARTMENT OF PATHOLOGY AND GENOMIC MEDICINE Yeast, UA None seen [facility] DEPARTMENT OF PATHOLOGY AND GENOMIC MEDICINE Yeast with pseudohyphae, None seen [facility] DEPARTMENT OF PATHOLOGY AND GENOMIC MEDICINE Specimen Urine Performing Organization Address City/[facility] Servicescode Phone Number [address] [phone] PATHOLOGY AND [facility] MEDICINE * Gram stain (12/08/2017 8:10 PM CDT) Only the most recent of 2 results within the time period is included. Gram stain result Few WBC's [facility] DEPARTMENT OF Moderate Gram positive rods PATHOLOGY AND Comment: GENOMIC MEDICINE Specimen Information Specimen Source: Urine Specimen Site: Clean catch Specimen Urine Performing Organization Address City/[facility]/Zipcode Phone Number [facility] DEPARTMENT OF [address] [place] [address] PATHOLOGY AND GENOMIC MEDICINE * Urine culture (12/08/2017 8:10 PM CDT) Only the most recent of 2 results within the time period is included. Urine culture isolate Mixed Gram positive rachele [facility] DEPARTMENT OF 10-2 cfu/ml PATHOLOGY AND (A) GENOMIC MEDICINE Comment: Specimen Information Specimen Source: Urine Specimen Site: Clean catch Specimen Urine Performing Organization Address City/[facility]/Zipcode Phone Number [facility] DEPARTMENT OF [address] [place] [address] PATHOLOGY AND GENOMIC MEDICINE * Amylase level (10/14/2017 11:37 AM CDT) Amylase 45 13 - 73 U/L [facility] DEPARTMENT OF PATHOLOGY AND GENOMIC MEDICINE Specimen Plasma specimen Performing Organization Address City/[facility] Servicescode Phone Number [facility] [place] [id number] [place] [address] [place] [address] PATHOLOGY AND GENOMIC MEDICINE * XR Forearm 2 Vw Right (08/28/2017 5:17 PM WASTEWATER MANAGER) Only the most recent of 2 results within the time period is included. Narrative Performed At EXAMINATION:XR FOREARM 2 VW RIGHT [facility] CLINICAL HISTORY:s p wound cleaning. re evaluate for FB COMPARISON:None. IMPRESSION: There is some subcutaneous air adjacent to the distal radius. No metallic foreign body is noted. [id number] Procedure Note Hm Interface, Radiology Results Incoming - 08/28/2017 5:48 PM WASTEWATER MANAGER EXAMINATION: XR FOREARM 2 VW RIGHT CLINICAL HISTORY: s p wound cleaning. re evaluate for FB COMPARISON: None. IMPRESSION: There is some subcutaneous air adjacent to the distal radius. No metallic foreign body is noted. [id number] Performing Organization Address City/State/Zipcode Phone Number [facility] [address] [place] [address] after 06/17/2017 Insurance Payer Benefit Subscriber ID Type Phone Address Plan / Group [facility] xxxxxxxxx HMO/PPO THCARE CHOICE/CHO ICE + [facility] xxxxxxxxx HMO/PPO THCARE CHOICE/CHO ICE + [facility] xxxxxxxxx HMO/PPO THCARE CHOICE/CHO ICE + Advance Directives Patient has advance care planning documents, and code status on file. For more i nformation, please contact: Timo Anne [address] [place] [address] Date Inactivated Comments Code Status Date Activated 01/15/2017 4:57 AM Full Code 01/14/2017 1:34 PM Code Status decision reached by: Patient
[2018-06-18] MEDS ORDERED: HYDROMORPHONE 2MG/ML 2 MG/ML ML IV NR (20:15)
[2018-06-18] MEDS ORDERED: ONDANSETRON HCL INJ 2MG/ML 2ML 2 MG/ML VIAL IV NR (20:15)
[2018-06-18] MEDS ORDERED: SODIUM CHLORIDE 0.9% 1000ML 1,000 ML IV SCH (20:15)
[2018-06-18 20:37] LABS: BASOPHILS % 0.2 % (0.0-1.0); EOSINOPHILS # (AUTO) 0.1 (0.0-0.4); EOSINOPHILS % 1.5 % (0.0-6.0); HEMATOCRIT 32.9 % (34.2-44.1); HEMOGLOBIN 10.7 g/dL (12.0-16.0); LYMPHOCYTES # (AUTO) 1.5 (1.0-3.2); LYMPHOCYTES % 23.2 % (18.0-39.1); MEAN CORPUSCULAR HGB CONC 32.5 g/dL (31-35); MEAN CORPUSCULAR VOLUME 83.1 fL (81-99); MONOCYTES # (AUTO) 0.2 (0.2-0.8); MONOCYTES % 2.9 % (4.4-11.3); NEUTROPHILS # (AUTO) 4.7 (2.1-6.9); NEUTROPHILS % 71.7 % (38.7-80.0); PLATELET COUNT 172 x10e3/uL (140-360); RED BLOOD COUNT 3.96 x10e6/uL (3.6-5.1); RED CELL DISTRIBUTION WIDTH 15.4 % (11.7-14.4)
[2018-06-18 20:51] LABS: CLARITY,URINE CLOUDY (CLEAR); COLOR,URINE YELLOW (YELLOW)
[2018-06-18 20:52] LABS: BILIRUBIN,URINE NEGATIVE (NEGATIVE); KETONES,URINE NEGATIVE (NEGATIVE); LEUKOCYTE ESTERASE ,URINE TRACE (NEGATIVE); NITRITE,URINE POSITIVE (NEGATIVE); PREGNANCY TEST, URINE NEGATIVE (NEGATIVE); PROTEIN,URINE DIPSTICK NEGATIVE (NEGATIVE); URINE UROBILINOGEN 0.2 mg/dL (0.2 - 1)
[2018-06-18 20:53] LABS: ALANINE AMINOTRANSFERASE 74 IU/L (0-55); ALBUMIN 3.6 g/dL (3.5-5.0); ALKALINE PHOSPHATASE 147 IU/L (40-150); AMYLASE 30 U/L (25-125); ANION GAP 12.7 mmol/L (8-16); BLOOD UREA NITROGEN 8 mg/dL (7-26); BUN/CREATININE RATIO 13 (6-25); CALCIUM 8.9 mg/dL (8.4-10.2); CARBON DIOXIDE 22 mmol/L (22-29); CHLORIDE 103 mmol/L (98-107); CREATININE, SERUM 0.64 mg/dL (0.57-1.11); EST GLOMERULAR FILTRATION RATE > 60 ML/MIN (60-); GLUCOSE 96 mg/dL (74-118); LIPASE 4 U/L (8-78); POTASSIUM 3.7 mmol/L (3.5-5.1); SODIUM 134 mmol/L (136-145)
[2018-06-18 20:59] LABS: BACTERIA,URINE MANY /HPF; EPITHELIAL CELLS,URINE MODERATE /LPF; WBC,URINE (MAN) >50 /HPF (0-5)
[2018-06-18] MEDS ORDERED: PROMETHAZINE 12.5MG/ NACL 0.9% 12.5 MG/50 ML BAG IV ONE (21:00)
--- NOTE | 2018-06-18 21:38 | Diagnostic Imaging Report ---
EXAM: CT Abdomen and Pelvis WITHOUT contrast INDICATION: LUQ pain, h/o pancreatic ca. COMPARISON: CT 05/14/2018 TECHNIQUE: Abdomen and pelvis were scanned utilizing a multidetector helical scanner from the lung base to the pubic symphysis without administration of IV contrast. Coronal and sagittal reformations were obtained. Routine protocol was performed. IV CONTRAST: None ORAL CONTRAST: Water COMPLICATIONS: None RADIATION DOSE: Total DLP: 245.99 mGy*cm Estimated effective dose: (DLP x 0.015 x size factor) mSv CTDIvol has been reviewed. It is below the limits set by the Radiation Protocol Committee (RPC). Dose modulation, iterative reconstruction, and/or weight based adjustment of the mA/kV was utilized to reduce the radiation dose to as low as reasonably achievable. FINDINGS: Absence of intravenous contrast decreases sensitivity for detection of focal lesions and vascular pathology. LINES and TUBES: None. LOWER THORAX: Unremarkable HEPATOBILIARY: No focal hepatic lesions. No biliary ductal dilation. GALLBLADDER: Absent SPLEEN: No splenomegaly. PANCREAS: Limited evaluation without IV contrast. Atrophy of the body and tail relative to the pancreatic head. ADRENALS: No adrenal nodules KIDNEYS/URETERS: No hydronephrosis. No cystic or solid mass lesions. Multiple nonobstructing punctate calculi bilaterally. GI TRACT: No abnormal distention, wall thickening, or evidence of bowel obstruction. Appendix is normal. PELVIC ORGANS/BLADDER: Uterus is not visualized. No adnexal masses. LYMPH NODES: No lymphadenopathy. VESSELS: Several upper abdominal collateral vessels again noted. No abdominal aortic aneurysm. PERITONEUM / RETROPERITONEUM: No free air or fluid. Stable scattered calcifications in the left abdomen. BONES: Unremarkable. SOFT TISSUES: Partially visualized breast implants. IMPRESSION: 1. Indistinct pancreatic head and atrophy of the body and tail likely related to pancreatic cancer, not well evaluated on this noncontrast exam. 2. Nonobstructing renal calculi bilaterally. Signed by: DR. Andi Menezes MD on 06/18/2018 9:34 PM
[2018-06-18 21:44] LABS: EOSINOPHILS % (MANUAL) 4 % (0-7); LYMPHOCYTES % (MANUAL) 30 % (19-48); NEUTROPHILS % (MANUAL) 66 % (40-74)
[2018-06-18 21:45] LABS: PLATELET ESTIMATE ADEQUATE; PLATELET MORPHOLOGY COMMENT NORMAL; RBC MORPHOLOGY COMMENT NORMAL
[2018-06-18 21:47] LABS: ANISOCYTOSIS SLIGHT
--- OUTSIDE RECORDS SUMMARY | 2018-06-18 21:58 | XMS REPORT | Clinical Summary ---
Author Author [facility] [facility] Address Unknown Phone Unavailable Care Team Providers Care Dental Office Receptionist Name Role Phone Asked, No Pcp PCP [...] CDT ZZESTIMATED GFR STAT 08/28/2017 6:02 PM ROOF FOREMAN HC COMPLETE BLD COUNT STAT 08/28/2017 W/AUTO DIFF 6:02 PM ROOF FOREMAN COMPREHENSIVE METABOLIC STAT 08/28/2017 PANEL 6:02 PM ROOF FOREMAN XR FOREARM 2 VW RIGHT STAT 08/28/2017 5:17 PM ROOF FOREMAN XR FOREARM 2 VW RIGHT STAT 08/28/2017 3:27 PM ROOF FOREMAN after 06/17/2017 Results * CT Abdomen Pelvis [...] calculi are visualized. No hydronephrosis. [facility]-[id number] Procedure Note Interface, Radiology Results Incoming - [...] calculi are visualized. No hydronephrosis. [facility]-[id number] Performing Organization Address City/[facility] Centercode Phone Number [place] [phone] [place] [address] * Estimated GFR (12/08/2017 9:12 PM CDT) Only the most recent of 3 results within the time period is included. GFR Non Af Amer >90 mL/min/1.73 m2 [facility] DEPARTMENT OF PATHOLOGY AND GENOMIC MEDICINE GFR Af Amer >90 mL/min/1.73 m2 [facility] DEPARTMENT OF Comment: PATHOLOGY AND Chronic kidney [...] Americans. Specimen Plasma specimen Performing Organization Address City/[facility]/Zipcode Phone Number [address] [address] PATHOLOGY AND GENOMIC MEDICINE * CBC with platelet and differential (12/08/2017 9:12 PM CDT) Only the most recent of 3 results within the time period is included. WBC 3.24 (L) 4.50 - 11.00 k/uL [facility] DEPARTMENT OF PATHOLOGY AND GENOMIC MEDICINE RBC 3.65 (L) 4.20 - 5.50 m/uL [facility] DEPARTMENT OF PATHOLOGY AND GENOMIC MEDICINE HGB 8.9 (L) 12.0 - 16.0 g/dL [facility] DEPARTMENT OF PATHOLOGY AND GENOMIC MEDICINE HCT 28.3 (L) 37.0 - 47.0 % [facility] DEPARTMENT OF PATHOLOGY AND GENOMIC MEDICINE MCV 77.5 (L) 82.0 - 100.0 fL [facility] DEPARTMENT OF PATHOLOGY AND GENOMIC MEDICINE MCH 24.4 (L) 27.0 - 34.0 pg [facility] DEPARTMENT OF PATHOLOGY AND GENOMIC MEDICINE MCHC 31.4 31.0 - 37.0 g/dL [facility] DEPARTMENT OF PATHOLOGY AND GENOMIC MEDICINE RDW - SD 48.8 37.0 - 55.0 fL [facility] DEPARTMENT OF PATHOLOGY AND GENOMIC MEDICINE MPV 10.0 8.8 - 13.2 fL [facility] DEPARTMENT OF PATHOLOGY AND GENOMIC MEDICINE Platelet count 285 150 - 400 k/uL [facility] DEPARTMENT OF PATHOLOGY AND GENOMIC MEDICINE Nucleated RBC 0.00 /100 WBC [facility] DEPARTMENT OF PATHOLOGY AND GENOMIC MEDICINE Neutrophils 36.8 (L) 39.0 - 69.0 % [facility] DEPARTMENT OF PATHOLOGY AND GENOMIC MEDICINE Lymphocytes 47.8 (H) 25.0 - 45.0 % [facility] DEPARTMENT OF PATHOLOGY AND GENOMIC MEDICINE Monocytes 11.4 (H) 0.0 - 10.0 % [facility] DEPARTMENT OF PATHOLOGY AND GENOMIC MEDICINE Eosinophils 3.4 0.0 - 5.0 % [facility] DEPARTMENT OF PATHOLOGY AND GENOMIC MEDICINE Basophils 0.3 0.0 - 1.0 % [facility] DEPARTMENT OF PATHOLOGY AND GENOMIC MEDICINE Immature granulocytes 0.3Comment: "Immature 0.0 - 1.0 % [facility] DEPARTMENT OF granulocytes" (promyelocytes, PATHOLOGY AND myelocytes, metamyelocytes) [facility] MED[facility] Specimen Blood Performing Organization Address City/State/Zipcode Phone Number [facility] DEPARTMENT OF [address] [place] [address] PATHOLOGY AND GENOMIC MEDICINE * hCG qualitative, serum screen (12/08/2017 9:12 PM CDT) hCG qualitative, serum NegativeComment: Sensitivity [facility] DEPARTMENT OF of HCG test: 25 mIU/mL PATHOLOGY AND GENOMIC MEDICINE Specimen Blood Performing Organization Address City/[facility]ode Phone Number [facility] DEPARTMENT OF [address] [place] [id number] PATHOLOGY AND GENOMIC MEDICINE * Lipase level (12/08/2017 9:12 PM CDT) Only the most recent of 2 results within the time period is included. Lipase 20 13 - 60 U/L [facility] DEPARTMENT OF PATHOLOGY AND GENOMIC MEDICINE Specimen Plasma specimen Performing Organization Address City/[facility] Cent[facility]ode Phone Number [facility] DEPARTMENT [address] [address] PATHOLOGY AND GENOMIC MEDICINE * Comprehensive metabolic panel (12/08/2017 9:12 PM CDT) Only the most recent of 3 results within the time period is included. Sodium 138 135 - 148 mEq/L [facility] DEPARTMENT OF PATHOLOGY AND GENOMIC MEDICINE Potassium 3.9 3.5 - 5.0 mEq/L [facility] DEPARTMENT OF PATHOLOGY AND GENOMIC MEDICINE Chloride 101 98 - 112 mEq/L [facility] DEPARTMENT OF PATHOLOGY AND GENOMIC MEDICINE CO2 24 24 - 31 mEq/L [facility] DEPARTMENT OF PATHOLOGY AND GENOMIC MEDICINE Anion gap 13@ANIO 7 - 15 mEq/L [facility] DEPARTMENT OF PATHOLOGY AND GENOMIC MEDICINE BUN 11 6 - 20 mg/dL [facility] DEPARTMENT OF PATHOLOGY AND GENOMIC MEDICINE Creatinine 0.6 0.5 - 0.9 mg/dL [facility] DEPARTMENT OF PATHOLOGY AND GENOMIC MEDICINE Glucose 98 65 - 99 mg/dL [facility] DEPARTMENT OF PATHOLOGY AND GENOMIC MEDICINE Calcium 9.4 8.3 - 10.2 mg/dL [facility] DEPARTMENT OF PATHOLOGY AND GENOMIC MEDICINE Protein 7.7 6.3 - 8.3 g/dL [facility] DEPARTMENT OF Comment: PATHOLOGY AND [place] GENOMIC MEDICINE 4.6-7.0 g/dL 1 week 4.4-7.6 g/dL 7 months-1year 5.1-7.3 g/dL 1-2 years5.6-7 .5 g/dL >3 years6.0-8 .0 g/dL 18-150 6.3-8.3 g/dL Albumin 3.9 3.5 - 5.0 g/dL [facility] DEPARTMENT OF PATHOLOGY AND GENOMIC MEDICINE A/G ratio 1.0 0.7 - 3.8 [facility] DEPARTMENT OF PATHOLOGY AND GENOMIC MEDICINE Alkaline phosphatase 137 (H) 35 - 104 U/L [facility] DEPARTMENT OF PATHOLOGY AND GENOMIC MEDICINE AST 30 10 - 35 U/L [facility] DEPARTMENT OF PATHOLOGY AND GENOMIC MEDICINE ALT 40 5 - 50 U/L [facility] DEPARTMENT OF PATHOLOGY AND GENOMIC MEDICINE Total bilirubin 0.3 0.0 - 1.2 mg/dL [facility] DEPARTMENT OF PATHOLOGY AND GENOMIC MEDICINE Specimen Plasma specimen Performing Organization Address City/[facility] Centercode Phone Number [address] [address] PATHOLOGY AND [facility] MEDICINE * Urinalysis screen and microscopy, with reflex to culture (12/08/2017 8:10 PM CDT) Only the most recent of 2 results within the time period is included. Specimen site Clean catch [facility] DEPARTMENT OF PATHOLOGY AND GENOMIC MEDICINE Color, UA Straw [facility] DEPARTMENT OF PATHOLOGY AND GENOMIC MEDICINE Appearance, UA Hazy [facility] DEPARTMENT OF PATHOLOGY AND GENOMIC MEDICINE Specific gravity, UA 1.013 1.001 - 1.035 [facility] DEPARTMENT OF PATHOLOGY AND GENOMIC MEDICINE pH, UA 7.0 5.0 - 8.5 [facility] DEPARTMENT OF PATHOLOGY AND GENOMIC MEDICINE Protein, UA Negative Negative [facility] DEPARTMENT OF PATHOLOGY AND GENOMIC MEDICINE Glucose, UA Negative Negative [facility] DEPARTMENT OF PATHOLOGY AND GENOMIC MEDICINE Ketones, UA Negative Negative [facility] DEPARTMENT OF PATHOLOGY AND GENOMIC MEDICINE Bilirubin, UA Negative Negative [facility] DEPARTMENT OF PATHOLOGY AND GENOMIC MEDICINE Blood, UA Negative Negative [facility] DEPARTMENT OF PATHOLOGY AND GENOMIC MEDICINE Nitrite, UA Negative Negative [facility] DEPARTMENT OF PATHOLOGY AND GENOMIC MEDICINE Urobilinogen, UA <2.0 <2.0 [facility] DEPARTMENT OF PATHOLOGY AND GENOMIC MEDICINE Leukocyte esterase, UA Negative Negative [facility] DEPARTMENT OF PATHOLOGY AND GENOMIC MEDICINE Epithelial cells, UA 12 /HPF [facility] DEPARTMENT OF PATHOLOGY AND GENOMIC MEDICINE WBC, UA 8 (H) 0 - 4 /HPF [facility] DEPARTMENT OF PATHOLOGY AND GENOMIC MEDICINE RBC, UA 1 0 - 5 /HPF [facility] DEPARTMENT OF PATHOLOGY AND GENOMIC MEDICINE Bacteria, UA Moderate (A) None seen [facility] DEPARTMENT OF PATHOLOGY AND GENOMIC MEDICINE Yeast, UA None seen [facility] DEPARTMENT OF PATHOLOGY AND GENOMIC MEDICINE Yeast with pseudohyphae, None seen [facility] DEPARTMENT OF PATHOLOGY AND GENOMIC MEDICINE Specimen Urine Performing Organization Address City/[facility] Centercode Phone Number [address] [address] PATHOLOGY AND [facility] MED[facility]INE * Gram stain (12/08/2017 8:10 PM CDT) Only the most recent of 2 results within the time period is included. Gram stain result Few WBC's [facility] DEPARTMENT OF Moderate Gram positive rods PATHOLOGY AND Comment: GENOMIC MEDICINE Specimen Information Specimen Source: Urine Specimen Site: Clean catch Specimen Urine Performing Organization Address City/[facility]/Zipcode Phone Number [facility] DEPARTMENT OF [address] [place] [address] PATHOLOGY AND GENOMIC MEDICINE * Urine culture (12/08/2017 8:10 PM CDT) Only the most recent of 2 results within the time period is included. Urine culture isolate Mixed Gram positive rachele [facility] DEPARTMENT OF 10-2 cfu/ml PATHOLOGY AND (A) GENOMIC MEDICINE Comment: Specimen Information Specimen Source: Urine Specimen Site: Clean catch Specimen Urine Performing Organization Address City/[facility]/Zipcode Phone Number [facility] DEPARTMENT OF [address] [place] [address] PATHOLOGY AND GENOMIC MEDICINE * Amylase level (10/14/2017 11:37 AM CDT) Amylase 45 13 - 73 U/L [facility] DEPARTMENT OF PATHOLOGY AND GENOMIC MEDICINE Specimen Plasma specimen Performing Organization Address City/[facility]ercode Phone Number [facility] DEPARTMENT [place] [id number] [place] [address] [place] [address] PATHOLOGY AND GENOMIC MEDICINE * XR Forearm 2 Vw Right (08/28/2017 5:17 PM ROOF FOREMAN) Only the most recent of 2 results within the time period is included. Narrative Performed At EXAMINATION:XR FOREARM 2 VW RIGHT HM [facility] CLINICAL HISTORY:s p wound cleaning. re evaluate for FB COMPARISON:None. IMPRESSION: There is some subcutaneous air adjacent to the distal radius. No metallic foreign body is noted. [id number] Procedure Note Hm Interface, Radiology Results Incoming - 08/28/2017 5:48 PM ROOF FOREMAN EXAMINATION: XR FOREARM 2 VW RIGHT CLINICAL HISTORY: s p wound cleaning. re evaluate for FB COMPARISON: None. IMPRESSION: There is some subcutaneous air adjacent to the distal radius. No metallic foreign body is noted. [id number] Performing Organization Address City/State/Zipcode Phone Number [facility] [address] [place] [address] after 06/17/2017 Insurance Payer Benefit Subscriber ID Type Phone Address Plan / Group [facility] HMO/PPO THCARE CHOICE/CHO ICE + [facility] x[facility] HMO/PPO THCARE CHOICE/CHO ICE + [facility] x[facility] HMO/PPO THCARE CHOICE/CHO ICE + Advance Directives Patient has advance care planning documents, and code status on file. For more i nformation, please contact: Timo Anne [address] [place] [address] Date Inactivated Comments Code Status Date Activated 01/15/2017 4:57 AM Full Code 01/14/2017 1:34 PM Code Status decision reached by: Patient
[2018-06-18] MEDS ORDERED: NEUPOGEN480 MCG/1. SC (23:09)
[2018-06-18] MEDS ORDERED: CREON DR 24,001 EACH PO (23:09)
[2018-06-18] MEDS: CEFTRIAXONE SOD 1 GM VIAL IV SCH (23:15)
[2018-06-18] MEDS: SODIUM CHLORIDE 0.9% 1000ML 1,000 ML IV SCH (23:20)
[2018-06-19] VITALS (9 sets, daily range): BP systolic 94–141; BP diastolic 57–86
[2018-06-19] MEDS: PROMETHAZINE 12.5MG/ NACL 0.9% 12.5 MG/50 ML BAG IV PRN ×6 (01:09→23:15)
[2018-06-19] MEDS: HYDROMORPHONE 2MG/ML 2 MG/ML ML IV PRN ×3 (01:09→09:10)
--- NOTE | 2018-06-19 02:51 | NUR ---
REPORT CALLED TO IKER GUERRERO ON OBS UNIT
--- NOTE | 2018-06-19 03:30 | NUR ---
RECEIVED PATIENT FROM THE EMERGENCY ROOM PER BED, PLACED IN ROOM 176 AND CALL LIGHT PLACED IN REACH. ASSESSMENT DONE. WILL CONTINUE TO MONITOR.
[2018-06-19] MEDS: SODIUM CHLORIDE 0.9% 1000ML 1,000 ML IV SCH ×3 (04:09→18:33)
--- NOTE | 2018-06-19 05:26 | NUR ---
MEDICATION WAS GIVEN WITH A WITNESS PRESENT (NURSE TECH).
--- NOTE | 2018-06-19 05:26 | NUR ---
MEDICATED FOR COMPLAINTS OF ABDOMINAL PAIN AND NAUSEA, WILL CONTINUE TO MONITOR. CALL LIGHT IN REACH.
--- NOTE | 2018-06-19 07:02 | NUR ---
PATIENT CONTINUE RESTING, REPORT GIVEN TO AN NURSE. ROUNDS DONE, NO COMPLAINTS OF PAIN AT THIS TIME. CALL LIGHT REMAIN IN REACH.
[2018-06-19] MEDS ORDERED: ZOLPIDEM TARTRATE 5 MG TAB PO PRN (07:15)
--- NOTE | 2018-06-19 07:25 | NUR ---
PT RESTING IN BED, [facility] H[facility]PITALIST ON UNIT. PT TO NOTIFY NURSING BEFORE DIARRHEA AND VOMITING. NEUROLOGY HOSPITALIST REQUESTING PAIN PATCH TO REPLACE IV MEDICATION.
[2018-06-19] MEDS ORDERED: DICYCLOMINE HCL 10 MG CAP PO PRN (07:30)
--- NOTE | 2018-06-19 08:29 | NUR ---
per DENTAL DIRECTOR pt to remain NPO but may take meds.
[2018-06-19] MEDS: METOCLOPRAMIDE HCL 10 MG/2ML VIAL IV SCH ×4 (08:33→20:28)
[2018-06-19] MEDS: FERROUS SULFATE 325 MG TAB PO SCH ×3 (08:34→17:00)
[2018-06-19] MEDS: SUCRALFATE 1 GM TAB PO SCH ×5 (08:34→20:28)
[2018-06-19] MEDS: AMYLAS/CELLU/LIPAS/PROTEA/BILE 12,000 UNIT CAP PO SCH ×4 (08:35→20:28)
[2018-06-19] MEDS: ASCORBIC ACID 500 MG TAB PO SCH ×3 (08:35→17:00)
[2018-06-19] MEDS: CARVEDILOL 12.5 MG TAB PO SCH ×4 (08:35→20:28)
[2018-06-19] MEDS: FAMOTIDINE 20 MG/2 ML VIAL IV SCH ×2 (08:36→16:34)
[2018-06-19] MEDS: DOCUSATE SODIUM 100 MG CAP PO SCH ×2 (08:42→16:34)
--- NOTE | 2018-06-19 09:41 | NUR ---
per Antonella CHO, aki iv pain med and have pain management MD order meds ie. patch. paged
--- NOTE | 2018-06-19 10:21 | NUR ---
straight cath urine sample for micro completed
[2018-06-19] MEDS: CEFTRIAXONE SOD 1 GM VIAL IV SCH ×2 (12:42→22:35)
[2018-06-19] MEDS: HYDROMORPHONE HCL 2 MG TAB PO PRN (12:43)
--- NOTE | 2018-06-19 13:30 | NUR ---
Visit made by the Spiritual Care Department Pastoral Visitor, Maru Dozier. PV provided pastoral presence, prayer, hospitality, and supportive listening. Pastoral Visitor informed pt/family of the scope of Log Sorting Supervisor Services and availability. SHIV SAUER Chief Radiation Therapist Spiritual Care Department O: [phone] Pager: [phone] ([phone] number calling from)
--- NOTE | 2018-06-19 14:17 | NUR ---
CASE MANAGEMENT INITIAL ASSESSMENT Coffee Urn Attendant to bedside to discuss plan of care with patient/family. CM/SW role and care transitions discussed. Anticipated discharge plan discussed along with duration of care. CM/SW discussed patients right to make decisions in care. CM/SW work hours given. Patient lives: IN OWN HOME WITH FAMILY Admit/Transfer: ED FROM HOME POA/Emergency contact: MOTHER ALEXANDR NORMAN [phone] Current/Previous Home Health: NONE PCP/Follow-up Care: GOES TO WALK IN CLINIC BUT SEES ONCOLOGIST FABRIZIO Current/Previous DME: NONE Other Services: CHEMO FINISH PAST MONDAY OFF 1 WEEK TO RETURN AND START OVER FOLLOWING WEEK AT [facility] Employment Status: STAY AT HOME Areas of Concerns: NONE Referral Needs: NONE Education Needs: NEED TO RETURN TO HOSPITAL WHERE GET CHEMO TO FOLLOW TOTAL PLAN OF CARE. IMM/JONES given and signed (if applicable): NA Goal for discharge: RETURN HOME INDEPENDENTLY CM/SW left business card at the bedside with contact information. Name and number was also written on the patients whiteboard. Patient verbalized understanding of discussion. CM will follow-up with ongoing discharge and transition of care needs.
--- NOTE | 2018-06-19 17:39 | NUR ---
pt refusing PO meds at this time dt reported nausea. self reports its dt being NPO
[2018-06-19] MEDS ORDERED: HYDROMORPHONE 1MG/1ML INJ IV NR (21:25)
[2018-06-19] MEDS ORDERED: PANTOPRAZOLE 40 MG 10ML VIAL IV STA (21:33)
[2018-06-19] MEDS ORDERED: SODIUM CHLORIDE 0.9% 500ML 500 ML IV ONE (22:00)
[2018-06-19] MEDS: DICYCLOMINE HCL 10 MG CAP PO SCH (22:35)
[2018-06-19] MEDS: PANTOPRAZOL 40MG/SOD CHL 0.9% 50 ML IV SCH (22:35)
[2018-06-19] MEDS ORDERED: HYDROMORPHONE 2MG/ML 2 MG/ML ML IV NR (23:00)
[2018-06-20] MEDS: SODIUM CHLORIDE 0.9% 1000ML 1,000 ML IV SCH ×2 (02:05→13:09)
[2018-06-20] MEDS: PROMETHAZINE 12.5MG/ NACL 0.9% 12.5 MG/50 ML BAG IV PRN ×3 (03:39→19:35)
[2018-06-20] MEDS: HYDROMORPHONE HCL 2 MG TAB PO PRN ×3 (03:40→19:35)
[2018-06-20 03:41] LABS: EOSINOPHILS # (AUTO) 0.2 (0.0-0.4); EOSINOPHILS % 3.9 % (0.0-6.0); HEMATOCRIT 27.4 % (34.2-44.1); LYMPHOCYTES # (AUTO) 1.5 (1.0-3.2); LYMPHOCYTES % 37.3 % (18.0-39.1); MEAN CORPUSCULAR HEMOGLOBIN 27.1 pg (28-32); MEAN CORPUSCULAR HGB CONC 32.8 g/dL (31-35); MEAN CORPUSCULAR VOLUME 82.5 fL (81-99); MONOCYTES # (AUTO) 0.3 (0.2-0.8); MONOCYTES % 6.9 % (4.4-11.3); NEUTROPHILS % 51.6 % (38.7-80.0); PLATELET COUNT 148 x10e3/uL (140-360); RED BLOOD COUNT 3.32 x10e6/uL (3.6-5.1); RED CELL DISTRIBUTION WIDTH 15.1 % (11.7-14.4)
[2018-06-20 03:54] LABS: ANION GAP 11.4 mmol/L (8-16); BLOOD UREA NITROGEN 7 mg/dL (7-26); BUN/CREATININE RATIO 11 (6-25); CALCIUM 8.4 mg/dL (8.4-10.2); CARBON DIOXIDE 21 mmol/L (22-29); CHLORIDE 107 mmol/L (98-107); CREATININE, SERUM 0.65 mg/dL (0.57-1.11); EST GLOMERULAR FILTRATION RATE > 60 ML/MIN (60-); GLUCOSE 111 mg/dL (74-118); MAGNESIUM 1.9 MG/DL (1.3-2.1); POTASSIUM 3.4 mmol/L (3.5-5.1); SODIUM 136 mmol/L (136-145)
[2018-06-20 05:26] VITALS: BP 100/69
[2018-06-20] MEDS: DICYCLOMINE HCL 10 MG CAP PO SCH ×3 (07:30→17:56)
[2018-06-20] MEDS: SUCRALFATE 1 GM TAB PO SCH ×3 (07:30→17:56)
[2018-06-20 07:50] VITALS: BP 120/69
[2018-06-20] MEDS: FERROUS SULFATE 325 MG TAB PO SCH ×2 (08:00→17:57)
[2018-06-20] MEDS: DOCUSATE SODIUM 100 MG CAP PO SCH ×2 (08:00→17:00)
[2018-06-20] MEDS: AMYLAS/CELLU/LIPAS/PROTEA/BILE 12,000 UNIT CAP PO SCH ×2 (08:17→17:56)
[2018-06-20] MEDS: ASCORBIC ACID 500 MG TAB PO SCH ×2 (08:18→17:57)
--- NOTE | 2018-06-20 08:19 | NUR ---
pt resting in bed. states doesnt want any PO meds until able to eat, other than PO pain med. will continue to monitor.
[2018-06-20] MEDS ORDERED: POTASSIUM CHLORIDE 20 MEQ TAB CR PO STA (08:41)
[2018-06-20 08:53] VITALS: BP 120/69
[2018-06-20] MEDS: CARVEDILOL 12.5 MG TAB PO SCH ×2 (08:57→17:56)
[2018-06-20] MEDS: FAMOTIDINE 20 MG/2 ML VIAL IV SCH ×2 (08:57→17:56)
[2018-06-20] MEDS: PANTOPRAZOL 40MG/SOD CHL 0.9% 50 ML IV SCH ×2 (08:57→13:04)
[2018-06-20] MEDS: METOCLOPRAMIDE HCL 10 MG/2ML VIAL IV SCH ×3 (08:57→17:56)
[2018-06-20] MEDS ORDERED: POTASSIUM CHLORIDE 20MEQ/100ML 100 ML IV ONE (09:00)
[2018-06-20] MEDS ORDERED: LORATADINE 10 MG TAB PO SCH (09:00)
[2018-06-20 11:18] VITALS: BP 108/74
--- NOTE | 2018-06-20 12:28 | NUR ---
TOMI SPOKE TO TAMMIE ANDRADE REGARDING PATIENT BARRIER TO DISCHARGE. MANAGER HUMAN RESOURCES STATES THAT PATIENT STATES SHE IS NOT TOLERATING PO. TOMI SPOKE TO RN AFTER DIET CHANGED TO CLEAR LIQUID DIET. RN STATES PATIENT IS TOLERATING CLEAR LIQUID DIET, WALKING THE HALLS AND HAS NO COMPLAINTS OF PAIN. IN ADDITION RN FOUND SODA BOTTLES IN PATIENT ROOM. TAMMIE ANDRADE NOTIFIED. PENDING POC.
[2018-06-20] MEDS: CEFTRIAXONE SOD 1 GM VIAL IV SCH (12:43)
[2018-06-20 15:15] VITALS: BP 111/76
--- NOTE | 2018-06-20 16:17 | NUR ---
pt has been tolerating increased diet. had clears for breakfast/lunch, then gi soft for additional lunch. pending toleration of dinner for possible dc. pt stated she will resume po meds but wants to wait until eats again. stated she ordered food and its on its way. pt has been ambulating hallways. showered and appears to have better pain and nausea tolerance/resolution. will continue to monitor.
--- NOTE | 2018-06-20 18:51 | NUR ---
pt had hooters delivered, observed full togo container was eaten. patient stated her surprised her. asked patient if she wanted to take po meds since tolerating diet, pt agreed. updated светлана Berman ok to dc and follow up with her established physicians.
--- NOTE | 2018-06-20 19:10 | NUR ---
updated pt on dc, pt agreed. educated pt oven technician will dc her. report given
--- NOTE | 2018-06-20 20:35 | NUR ---
Pt is alert and oriented x3. Steady gait around the room. Denies any distress. Discharge paper explained and signed by pt. Port-a-cath de-accessed. Pressure held and covered with 2x2. Pt tolerated well. Pt wheeled out to front entrance with all of pt's belongings. Pt left facility in stable condition. VSS. 111/71, 96.9, 75, 98% on RA.
--- NOTE | 2018-06-21 06:36 | Discharge Summary ---
ADMISSION DIAGNOSES 1. Chronic pain with nausea and vomiting secondary to pancreatic cancer. 2. Medullary sponge kidneys. 3. Anemia. 4. Urinary tract infection. 5. Transaminitis. 6. Hyponatremia. 7. Insomnia. DISCHARGE DIAGNOSES 1. Chronic pain with nausea and vomiting secondary to pancreatic cancer. 2. Medullary sponge kidneys. 3. Anemia. 4. Urinary tract infection. 5. Transaminitis. 6. Hyponatremia. 7. Insomnia. HISTORY: Patient has a history of recurrent UTI, medullary sponge kidneys, chronic pain syndrome, pancreatic cancer, GI bleed, anemia, VRE urine, insomnia, tachycardia. SURGICAL HISTORY: Cholecystectomy, hysterectomy, right chest Port-A-Cath, breast augmentation, tummy tuck, bladder sling. FAMILY HISTORY: Patient's maternal grandmother has diabetes. Patient's aunt has cancer. Patient's great uncle has had a stroke. SOCIAL HISTORY: Patient denies tobacco, alcohol, and illicit drug use. HOSPITAL COURSE: A 37-year-old female, who frequently admits for pain control secondary to pancreatic cancer, complains of nausea, vomiting, diarrhea, and fever of 100.8 that began after having chemo on Monday. Pain improved with Dilaudid and promethazine. Nothing worsens the pain. She also complains of dysuria over the last couple of days. On admission, patient was started on Rocephin and Creon, Reglan, sucralfate, Pepcid. GI was consulted. Her pain management doctor was also consulted. Patient's IV Dilaudid was changed to p.o. Dilaudid and patient was able to tolerate food by the very next day. Patient was discharged home and instructed to follow up with primary care, GI, and pain management as discussed. Vital signs stable. Patient afebrile. Dictated By: Antonella Gerard NP RODDY MALAVE MD Job#: [id number] CQ
--- NOTE | 2018-09-04 07:33 | Consultation ---
DATE OF CONSULTATION: 06/19/2018 Pain Management Consultation REASON FOR CONSULTATION: Pain management consultation and chronic pain syndrome. HISTORY OF PRESENT ILLNESS: This is a 37-year-old [place] female with multiple issues of ongoing pain, has been diagnosed with pancreatic cancer, again came back with history of severe abdominal pain. Pain is 10/10 as usual. Pain has been ongoing for the last 5 days, not responding, so she came back to the emergency room. Pain is always 10/10 on a scale 0 to 10 . She is allergic to every medicine except the IV Dilaudid. Has nausea, vomiting, and diarrhea with no loss of appetite. Has left upper quadrant pain on and off for 5 days since she got a chemotherapy. REVIEW OF SYSTEMS: No constipation. No black stool. No hematemesis. No difficulty with urination or pain. No urinary frequency, although she has history of multiple urinary problems in the past. No cough. No joint pain. No skin rash. No history of any other weight loss. PAST MEDICAL HISTORY: Past history of pancreatic cancer, kidney stones, . Multiples surgeries of cholecystectomy, breast augmentation being under the care of Dr. Eliot Carlos, who pain medicine for a while. PHYSICAL EXAMINATION: GENERAL: In pain, but not in acute distress. VITAL SIGNS: Within normal limits. HEENT: Normocephalic. NECK: Supple. LUNGS: Air entry bilaterally. HEART: Regular rate and rhythm. ABDOMEN: Soft and nontender. EXTREMITIES: No edema. NEUROLOGIC: Grossly nonfocal. LABORATORY DATA: Labs noted. ASSESSMENT AND PLAN: This patient with multiple issues of ongoing pain, pain is 2-10/10 on a scale of 0 to 10 . We will continue supportive care while she is inpatient. Thank you, Dr. Los Hayes for this patient. I will follow her with you. MD ALMA Perez/RINA /[id number]
== END 2018-06-20 20:39 | disposition home or self-care (01) | DRG 690 ==
LOC: ER 16:01 → ERHOLD 21:55 → IMCU 06-19 02:54 → OBSVTOIN 06-20 12:04
PROVIDERS: ADMIT Internal Medicine; ATTEND Internal Medicine
DX: N39.0 Urinary tract infection, site not specified (principal); C25.9 Malignant neoplasm of pancreas, unspecified; Q61.5 Medullary cystic kidney; E87.1 Hypo-osmolality and hyponatremia; G89.3 Neoplasm related pain (acute) (chronic); R10.12 Left upper quadrant pain; D64.9 Anemia, unspecified; R74.0 Nonspecific elevation of levels of transaminase and lactic acid dehydrogenase [LDH]; G47.00 Insomnia, unspecified; Z87.442 Personal history of urinary calculi; Z83.3 Family history of diabetes mellitus; Z80.9 Family history of malignant neoplasm, unspecified; Z82.3 Family history of stroke; Z88.5 Allergy status to narcotic agent; Z88.8 Allergy status to other drugs, medicaments and biological substances; Z91.041 Radiographic dye allergy status; R09.81 Nasal congestion; R19.7 Diarrhea, unspecified
CPT/HCPCS: 36415; 74176; 80048; 80053; 81001; 81025; 82150; 82270; 83690; 83735; 85025; 87045; 87086; 87186; 87493; 96374; 96376; 99284; G0378; J0696; J2550; J2765; J3480; J7030; J7040

== ENCOUNTER 2018-06-22 19:45 | Emergency (ER) | payer OTHER ==
[~2018-06-22] VITALS: Ht 152.4 cm; Wt 67.1 kg
[~2018-06-22 19:45] MED LIST changes: +CREON DR 24,001 EACH PO; +NEUPOGEN480 MCG/1. SC
--- OUTSIDE RECORDS SUMMARY | 2018-06-22 19:50 | XMS REPORT | Clinical Summary ---
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 [employer] Name Role Phone Asked, No Pcp PCP [...] Emergency General Internal Medicine - 08/29/2017 after 06/21/2017 Social History Date Tobacco Use Types Packs/Day [...] CANCER SCREENING 12/18/2000 INFLUENZA VACCINE 02/07/2018 Implants Device Identifier Shelf Expiration Date Model [...] CDT ZZESTIMATED GFR STAT 08/28/2017 6:02 PM INTERACTIVE MEDIA MARKETING SPECIALIST HC COMPLETE BLD COUNT STAT 08/28/2017 W/AUTO DIFF 6:02 PM INTERACTIVE MEDIA MARKETING SPECIALIST COMPREHENSIVE METABOLIC STAT 08/28/2017 PANEL 6:02 PM INTERACTIVE MEDIA MARKETING SPECIALIST XR FOREARM 2 VW RIGHT STAT 08/28/2017 5:17 PM INTERACTIVE MEDIA MARKETING SPECIALIST XR FOREARM 2 VW RIGHT STAT 08/28/2017 3:27 PM INTERACTIVE MEDIA MARKETING SPECIALIST after 06/21/2017 Results * CT Abdomen Pelvis Wo Contrast [...] urinary bladder calculi are visualized. No hydronephrosis. [facility]-[id number] Procedure Note Interface, Radiology Results Incoming - [...] urinary bladder calculi are visualized. No hydronephrosis. [facility]-[id number] Performing Organization Address City/[facility]/Zipcode Phone Number [facility] [address] [place] [address] * Estimated GFR (12/08/2017 9:12 PM CDT) Only the most recent of 3 results within the time period is included. GFR Non Af Amer >90 mL/min/1.73 m2 [facility] DEPARTMENT OF PATHOLOGY AND GENOMIC MEDICINE GFR Af Amer >90 mL/min/1.73 m2 [facility] DEPARTMENT OF Comment: PATHOLOGY AND Chronic [...] specimen Performing Organization Address City/State/Zipcode Phone Number [facility] DEPARTMENT [address] [address] PATHOLOGY AND GENOMIC MEDICINE * CBC with platelet and differential (12/08/2017 9:12 PM CDT) Only the most recent of 3 results within the time period is included. WBC 3.24 (L) 4.50 - 11.00 k/uL [facility] DEPARTMENT OF PATHOLOGY AND GENOMIC MEDICINE RBC 3.65 (L) 4.20 - 5.50 m/uL [facility] DEPARTMENT OF PATHOLOGY AND GENOMIC MEDICINE HGB 8.9 (L) 12.0 - 16.0 g/dL [facility] DEPARTMENT OF PATHOLOGY AND GENOMIC MEDICINE HCT 28.3 (L) 37.0 - 47.0 % [facility] DEPARTMENT OF PATHOLOGY AND GENOMIC MEDICINE MCV 77.5 (L) 82.0 - 100.0 fL [facility] DEPARTMENT OF PATHOLOGY AND GENOMIC MEDICINE MCH 24.4 (L) 27.0 - 34.0 pg [facility] DEPARTMENT OF PATHOLOGY AND GENOMIC MEDICINE MCHC 31.4 31.0 - 37.0 g/dL [facility] DEPARTMENT OF PATHOLOGY AND GENOMIC MEDICINE RDW - SD 48.8 37.0 - 55.0 fL [facility] DEPARTMENT OF PATHOLOGY AND GENOMIC MEDICINE MPV 10.0 8.8 - 13.2 fL [facility] DEPARTMENT OF PATHOLOGY AND GENOMIC MEDICINE Platelet count 285 150 - 400 k/uL [facility] DEPARTMENT OF PATHOLOGY AND GENOMIC MEDICINE Nucleated RBC 0.00 /100 WBC [facility] DEPARTMENT OF PATHOLOGY AND GENOMIC MEDICINE Neutrophils 36.8 (L) 39.0 - 69.0 % [facility] DEPARTMENT OF PATHOLOGY AND GENOMIC MEDICINE Lymphocytes 47.8 (H) 25.0 - 45.0 % [facility] DEPARTMENT OF PATHOLOGY AND GENOMIC MEDICINE Monocytes 11.4 (H) 0.0 - 10.0 % [facility] DEPARTMENT OF PATHOLOGY AND GENOMIC MEDICINE Eosinophils 3.4 0.0 - 5.0 % [facility] DEPARTMENT OF PATHOLOGY AND GENOMIC MEDICINE Basophils 0.3 0.0 - 1.0 % [facility] DEPARTMENT OF PATHOLOGY AND GENOMIC MEDICINE Immature granulocytes 0.3Comment: "Immature 0.0 - 1.0 % [facility] DEPARTMENT OF granulocytes" (promyelocytes, PATHOLOGY AND myelocytes, metamyelocytes) GENOMIC MEDICINE Specimen Blood Performing Organization Address [facility] Phone Number [facility] DEPARTMENT [address] [address] PATHOLOGY AND GENOMIC MEDICINE * hCG qualitative, serum screen (12/08/2017 9:12 PM CDT) hCG qualitative, serum NegativeComment: Sensitivity [facility] DEPARTMENT OF of HCG test: 25 mIU/mL PATHOLOGY AND GENOMIC MEDICINE Specimen Blood Performing Organization Address [facility] Phone Number [facility] DEPARTMENT [address] [address] PATHOLOGY AND GENOMIC MEDICINE * Lipase level (12/08/2017 9:12 PM CDT) Only the most recent of 2 results within the time period is included. Lipase 20 13 - 60 U/L [facility] DEPARTMENT OF PATHOLOGY AND GENOMIC MEDICINE Specimen Plasma specimen Performing Organization Address City/State/Zipcode Phone Number [facility] DEPARTMENT OF [address] [place] [address] PATHOLOGY AND GENOMIC MEDICINE * Comprehensive metabolic panel (12/08/2017 9:12 PM CDT) Only the most recent of 3 results within the time period is included. Sodium 138 135 - 148 mEq/L [facility] DEPARTMENT OF PATHOLOGY AND GENOMIC MEDICINE Potassium 3.9 3.5 - 5.0 mEq/L [facility] DEPARTMENT OF PATHOLOGY AND GENOMIC MEDICINE Chloride 101 98 - 112 mEq/L [facility] DEPARTMENT OF PATHOLOGY AND GENOMIC MEDICINE CO2 24 24 - 31 mEq/L [facility] DEPARTMENT OF PATHOLOGY AND GENOMIC MEDICINE Anion gap 13@ANIO 7 - 15 mEq/L [facility] DEPARTMENT OF PATHOLOGY AND GENOMIC MEDICINE BUN 11 6 - 20 mg/dL [facility] DEPARTMENT OF PATHOLOGY AND GENOMIC MEDICINE Creatinine 0.6 0.5 - 0.9 mg/dL [facility] DEPARTMENT OF PATHOLOGY AND GENOMIC MEDICINE Glucose 98 65 - 99 mg/dL [facility] DEPARTMENT OF PATHOLOGY AND GENOMIC MEDICINE Calcium 9.4 8.3 - 10.2 mg/dL [facility] DEPARTMENT OF PATHOLOGY AND GENOMIC MEDICINE Protein 7.7 6.3 - 8.3 g/dL [facility] DEPARTMENT OF Comment: PATHOLOGY AND [place] GENOMIC MEDICINE 4.6-7.0 g/dL 1 week 4.4-7.6 g/dL 7 months-1year 5.1-7.3 g/dL 1-2 years5.6-7 .5 g/dL >3 years6.0-8 .0 g/dL 18-150 6.3-8.3 g/dL Albumin 3.9 3.5 - 5.0 g/dL [facility] DEPARTMENT OF PATHOLOGY AND GENOMIC MEDICINE A/G ratio 1.0 0.7 - 3.8 [facility] DEPARTMENT OF PATHOLOGY AND GENOMIC MEDICINE Alkaline phosphatase 137 (H) 35 - 104 U/L [facility] DEPARTMENT OF PATHOLOGY AND GENOMIC MEDICINE AST 30 10 - 35 U/L [facility] DEPARTMENT OF PATHOLOGY AND GENOMIC MEDICINE ALT 40 5 - 50 U/L [facility] DEPARTMENT OF PATHOLOGY AND GENOMIC MEDICINE Total bilirubin 0.3 0.0 - 1.2 mg/dL [facility] DEPARTMENT OF PATHOLOGY AND GENOMIC MEDICINE Specimen Plasma specimen Performing Organization Address City/[facility]/Zipcode Phone Number [facility] DEPARTMENT [address] [address] PATHOLOGY AND GENOMIC MEDICINE * Urinalysis screen and microscopy, with reflex to culture (12/08/2017 8:10 PM CDT) Only the most recent of 2 results within the time period is included. Specimen site Clean catch [facility] DEPARTMENT OF PATHOLOGY AND GENOMIC MEDICINE Color, UA Straw [facility] DEPARTMENT OF PATHOLOGY AND GENOMIC MEDICINE Appearance, UA Hazy [facility] DEPARTMENT OF PATHOLOGY AND GENOMIC MEDICINE Specific gravity, UA 1.013 1.001 - 1.035 [facility] DEPARTMENT OF PATHOLOGY AND GENOMIC MEDICINE pH, UA 7.0 5.0 - 8.5 [facility] DEPARTMENT OF PATHOLOGY AND GENOMIC MEDICINE Protein, UA Negative Negative [facility] DEPARTMENT OF PATHOLOGY AND GENOMIC MEDICINE Glucose, UA Negative Negative [facility] DEPARTMENT OF PATHOLOGY AND GENOMIC MEDICINE Ketones, UA Negative Negative [facility] DEPARTMENT OF PATHOLOGY AND GENOMIC MEDICINE Bilirubin, UA Negative Negative [facility] DEPARTMENT OF PATHOLOGY AND GENOMIC MEDICINE Blood, UA Negative Negative [facility] DEPARTMENT OF PATHOLOGY AND GENOMIC MEDICINE Nitrite, UA Negative Negative [facility] DEPARTMENT OF PATHOLOGY AND GENOMIC MEDICINE Urobilinogen, UA <2.0 <2.0 [facility] DEPARTMENT OF PATHOLOGY AND GENOMIC MEDICINE Leukocyte esterase, UA Negative Negative [facility] DEPARTMENT OF PATHOLOGY AND GENOMIC MEDICINE Epithelial cells, UA 12 /HPF [facility] DEPARTMENT OF PATHOLOGY AND GENOMIC MEDICINE WBC, UA 8 (H) 0 - 4 /HPF [facility] DEPARTMENT OF PATHOLOGY AND GENOMIC MEDICINE RBC, UA 1 0 - 5 /HPF [facility] DEPARTMENT OF PATHOLOGY AND GENOMIC MEDICINE Bacteria, UA Moderate (A) None seen [facility] DEPARTMENT OF PATHOLOGY AND GENOMIC MEDICINE Yeast, UA None seen [facility] DEPARTMENT OF PATHOLOGY AND GENOMIC MEDICINE Yeast with pseudohyphae, None seen [facility] DEPARTMENT OF UA PATHOLOGY AND GENOMIC MEDICINE Specimen Urine Performing Organization Address City/[facility]/Zipcode Phone Number [facility] DEPARTMENT [address] [address] PATHOLOGY AND GENOMIC MEDICINE * Gram stain (12/08/2017 8:10 PM CDT) Only the most recent of 2 results within the time period is included. Gram stain result Few WBC's [facility] DEPARTMENT OF Moderate Gram positive rods PATHOLOGY AND Comment: GENOMIC MEDICINE Specimen Information Specimen Source: Urine Specimen Site: Clean catch Specimen Urine Performing Organization Address City/[facility]/Zipcode Phone Number [facility] DEPARTMENT [address] [place] [address] PATHOLOGY AND GENOMIC MEDICINE * Urine culture (12/08/2017 8:10 PM CDT) Only the most recent of 2 results within the time period is included. Urine culture isolate Mixed Gram positive rachele [facility] DEPARTMENT OF 10-2 cfu/ml PATHOLOGY AND (A) GENOMIC MEDICINE Comment: Specimen Information Specimen Source: Urine Specimen Site: Clean catch Specimen Urine Performing Organization Address [facility] Phone Number [facility] DEPARTMENT OF [address] [place] [address] PATHOLOGY AND GENOMIC MEDICINE * Amylase level (10/14/2017 11:37 AM CDT) Amylase 45 13 - 73 U/L [facility] DEPARTMENT OF PATHOLOGY AND GENOMIC MEDICINE Specimen Plasma specimen Performing Organization Address [facility] Phone Number [facility] DEPARTMENT [address] [place] [address] PATHOLOGY AND GENOMIC MEDICINE * XR Forearm 2 Vw Right (08/28/2017 5:17 PM INTERACTIVE MEDIA MARKETING SPECIALIST) Only the most recent of 2 results within the time period is included. Narrative Performed At EXAMINATION:XR FOREARM 2 VW RIGHT [facility] CLINICAL HISTORY:s p wound cleaning. re evaluate for FB COMPARISON:None. IMPRESSION: There is some subcutaneous air adjacent to the distal radius. No metallic foreign body is noted. [id number] Procedure Note Hm Interface, Radiology Results Incoming - 08/28/2017 5:48 PM INTERACTIVE MEDIA MARKETING SPECIALIST EXAMINATION: XR FOREARM 2 VW RIGHT CLINICAL HISTORY: s p wound cleaning. re evaluate for FB COMPARISON: None. IMPRESSION: There is some subcutaneous air adjacent to the distal radius. No metallic foreign body is noted. [id number] Performing Organization Address [facility] Phone Number [facility] [address] [place] [address] after 06/21/2017 Insurance Payer Benefit Subscriber ID Type Phone Address Plan / Group [facility] [employer] xxxxxxxxx HMO/PPO THCARE CHOICE/CHO ICE + [facility] [employer] xxxxxxxxx HMO/PPO THCARE CHOICE/CHO ICE + [facility] [employer] xxxxxxxxx HMO/PPO THCARE CHOICE/CHO ICE + Advance Directives Patient has advance care planning documents, and code status on file. For more i nformation, please contact: Timo Anne [address] [place] [address] Date Inactivated Comments Code Status Date Activated 01/15/2017 4:57 AM Full Code 01/14/2017 1:34 PM Code Status decision reached by: Patient
[2018-06-22 21:58] LABS: BASOPHILS % 0.2 % (0.0-1.0); EOSINOPHILS # (AUTO) 0.2 (0.0-0.4); EOSINOPHILS % 3.7 % (0.0-6.0); HEMATOCRIT 33.1 % (34.2-44.1); HEMOGLOBIN 11.1 g/dL (12.0-16.0); LYMPHOCYTES # (AUTO) 1.8 (1.0-3.2); MEAN CORPUSCULAR HEMOGLOBIN 27.5 pg (28-32); MEAN CORPUSCULAR HGB CONC 33.5 g/dL (31-35); MEAN CORPUSCULAR VOLUME 81.9 fL (81-99); MONOCYTES # (AUTO) 0.3 (0.2-0.8); MONOCYTES % 8.2 % (4.4-11.3); NEUTROPHILS # (AUTO) 1.8 (2.1-6.9); NEUTROPHILS % 43.7 % (38.7-80.0); PLATELET COUNT 228 x10e3/uL (140-360); RED BLOOD COUNT 4.04 x10e6/uL (3.6-5.1); RED CELL DISTRIBUTION WIDTH 15.2 % (11.7-14.4)
[2018-06-22 22:05] LABS: AMPHETAMINES SCREEN,URINE NEGATIVE (NEGATIVE); PHENCYCLIDINE SCREEN,URINE NEGATIVE (NEGATIVE)
[2018-06-22 22:06] LABS: BENZODIAZEPINES SCREEN,URINE POSITIVE (NEGATIVE)
[2018-06-22 22:12] LABS: CLARITY,URINE HAZY (CLEAR); COLOR,URINE YELLOW (YELLOW)
[2018-06-22 22:15] LABS: BILIRUBIN,URINE NEGATIVE (NEGATIVE); KETONES,URINE NEGATIVE (NEGATIVE); LEUKOCYTE ESTERASE ,URINE NEGATIVE (NEGATIVE); NITRITE,URINE NEGATIVE (NEGATIVE); PROTEIN,URINE DIPSTICK NEGATIVE (NEGATIVE); URINE UROBILINOGEN 0.2 mg/dL (0.2 - 1)
[2018-06-22 22:17] LABS: BACTERIA,URINE FEW /HPF; EPITHELIAL CELLS,URINE MODERATE /LPF; RBC,URINE 0-5 /HPF (0-5); WBC,URINE (MAN) 0-5 /HPF (0-5)
[2018-06-22 22:31] LABS: ALANINE AMINOTRANSFERASE 37 IU/L (0-55); ALBUMIN/GLOBULIN RATIO 1.1 (0.8-2.0); ALKALINE PHOSPHATASE 111 IU/L (40-150); ANION GAP 13.9 mmol/L (8-16); BLOOD UREA NITROGEN 7 mg/dL (7-26); BUN/CREATININE RATIO 10 (6-25); CALCIUM 9.3 mg/dL (8.4-10.2); CARBON DIOXIDE 19 mmol/L (22-29); CHLORIDE 106 mmol/L (98-107); EST GLOMERULAR FILTRATION RATE > 60 ML/MIN (60-); GLUCOSE 100 mg/dL (74-118); POTASSIUM 3.9 mmol/L (3.5-5.1); SODIUM 135 mmol/L (136-145)
[2018-06-22] MEDS ORDERED: PANTOPRAZOLE 40 MG 10ML VIAL IV STA ×2 (23:14→23:39)
[2018-06-22] MEDS ORDERED: HYDROMORPHONE 1MG/1ML INJ IV STA ×2 (23:14→23:39)
[2018-06-22] MEDS ORDERED: SODIUM CHLORIDE 0.9% 1000ML 1,000 ML IV STA ×2 (23:14→23:39)
[2018-06-22] MEDS ORDERED: PROMETHAZINE 25MG/ NS 50ML (IV) IV ONE ×2 (23:15→23:45)
[2018-06-22 23:30] LABS: AMYLASE 35 U/L (25-125); LIPASE 5 U/L (8-78)
[2018-06-23] MEDS ORDERED: HYDROMORPHONE 2MG/ML 2 MG/ML ML ONE (00:09)
== END 2018-06-23 02:55 | disposition home or self-care (01) ==
LOC: ER 19:45
DX: R11.2 Nausea with vomiting, unspecified (principal); R10.84 Generalized abdominal pain
CPT/HCPCS: 36415; 80053; 80307; 81001; 82150; 83690; 85025; 99283; J1170; J1642; J2550; J7030

== ENCOUNTER 2018-07-27 23:13 | Emergency (ER) | payer OTHER ==
[~2018-07-27] VITALS: Ht 152.4 cm; Wt 67.1 kg
--- OUTSIDE RECORDS SUMMARY | 2018-07-27 23:17 | XMS REPORT | Continuity of Care Document ---
Author Author [facility] Interface Address Unknown Phone Unavailable Problems [...] Active 500 MG Orally Twice a day [facility] 08/31/2016 Rosaura Reid Pyridium 1 tablet after meals Orally Active 200 MG Orally Three times a day [facility] 08/12/2016 [facility] Zyvox 1 tablet Orally Active 600 MG Orally every 12 hrs [facility] 07/13/2016 Rosaura Quintana Acetaminophen-Codeine #3 1 tablet as needed Orally Active 300- 30 MG Orally every 6 hrs [facility] 06/15/2016 Rosaura Quintana Promethazine HCl 1 tablet as needed Orally Active 12.5 MG Orally every 6 hrs [facility] 06/15/2016 [facility] Alprazolam 1/2 half tablet Orally Active 1 MG Orally Twice a day [facility] Carvedilol 1 tablet Orally Active 12.5 MG Orally twice a day [facility] Potassium Citrate ER not defined Orally Active 10 MEQ (1080 MG) Orally twice a day [facility] Bactrim 2 tablets Orally Active 400-80 MG Orally Once a day [facility] Pyridium 1 tablet after meals Orally Active 200 MG Orally Three times a day [facility] Levaquin 1 tablet Orally Active 500 MG Orally Once a day [facility] Rosaura Quintana Allergies, Adverse Reactions, Alerts Substance [...] Source Rosaura Reid MD, PA Sick Visit [id number] 06/15/2016 06/15/2016 Rosaura Reid MD, PA Sick Visit [id number] 06/15/2016 06/15/2016 Rosaura Reid MD, PA Sick Visit [id number] 06/15/2016 06/15/2016 Rosaura Reid MD, PA Sick Visit [id number] 06/15/2016 06/15/2016 Rosaura Reid MD, PA Sick Visit [id number] 06/15/2016 06/15/2016 Rosaura Reid MD, PA d/c from hospital pt needed refill dr neha correa [id number] 07/13/2016 07/13/2016 Rosaura Reid MD, PA d/c from hospital pt needed refill dr neha correa [id number] 07/13/2016 07/13/2016 Rosaura Reid MD, PA d/c from hospital pt needed refill dr neha correa [id number] 07/13/2016 07/13/2016 Rosaura Reid MD, PA d/c from hospital pt needed refill dr neha correa [id number] 07/13/2016 07/13/2016 Rosaura Reid MD, PA Sick Visit [id number] 08/05/2016 08/05/2016 Rosaura Reid MD, PA Sick Visit [id number] 08/05/2016 08/05/2016 Rosaura Reid MD, PA Sick Visit [id number] 08/05/2016 08/05/2016 Rosaura Reid MD, PA Sick Visit [id number] 08/31/2016 08/31/2016 Rosaura Reid MD, PA Sick Visit [id number] 08/31/2016 08/31/2016 Rosaura Reid MD, PA kidney stones [id number] 09/02/2016 09/02/2016 Rosaura Reid Procedures Procedure Code Date Perfomer Comments Source
--- OUTSIDE RECORDS SUMMARY | 2018-07-27 23:17 | XMS REPORT | Clinical Summary ---
Author Author [facility]o [facility] Organization [facility] Address Unknown Phone Unavailable Care Team Providers Care External Auditor Name Role Phone Asked, No Pcp PCP [...] carvedilol (COREG) 12.5 Take 12.5 mg 1 MG tablet by mouth 3 7 (three) [...] 10 days. Active Problems Problem Noted Date Tachycardia 07/25/2018 Chemotherapy adverse reaction 07/25/2018 Chest tightness 07/25/2018 Abdominal pain 07/25/2018 Chronic pancreatitis 07/25/2018 Pancreatic adenocarcinoma 07/25/2018 Opioid dependence 07/25/2018 Foreign body left in wound 08/28/2017 DVT (deep venous thrombosis) 01/16/2017 Chronic UTI 01/14/2017 Idiopathic acute pancreatitis without infection or necrosis 09/27/2016 Idiopathic pancreatitis 09/27/2016 Acute cystitis 07/15/2016 Renal stones 07/14/2016 Encounters Care Team Description Date Type Specialty Cardona, Lubna-MD Callie Oleary Christopher Ryan, MD Tachycardia (Primary Dx); Allergic reaction, initial encounter; Adverse effect of chemotherapy, initial encounter; Generalized abdominal pain; Chronic pancreatitis, unspecified pancreatitis type (HCC) 07/25/2018 Emergency General Internal Medicine - 07/26/2018 [place] Cardona-Jessa Germain MD Generalized abdominal pain (Primary Dx); Flank pain; Renal calculi; Dysuria 12/08/2017 Emergency Emergency Medicine Evelin Perez PA-C Sidlak, Gray Thomas MD Acute UTI (Primary Dx); Chronic abdominal pain 10/14/2017 Emergency Emergency Medicine Camilo Oneil MD Al-Lahiq, Maha, MD Foreign body left in wound (Primary Dx) 08/28/2017 Emergency General Internal Medicine - 08/29/2017 after 07/26/2017 Family History Medical History Relation Name Comments Hypercalcemia Father Hypertension Father Breast cancer Maternal Aunt Diabetes Maternal Grandmother Heart attack Maternal Grandmother Hyperlipidemia Maternal Grandmother Cholecystitis Mother Hyperlipidemia Mother Relation Name Status Comments Father Maternal Aunt Maternal Grandmother Mother Social History Date Tobacco Use Types Packs/Day Years Used Never Smoker Smokeless Tobacco: Never Used Alcohol Use Drinks/Week oz/Week Comments No Sex Assigned at Date Recorded Not on file Industry Job Start Date Occupation Not on file Not on file Not on file Travel End Travel History Travel Start No recent travel history available. Last Filed Vital Signs Time Taken Vital Sign Reading 07/26/2018 5:00 PM [employer] Blood Pressure 133/77 07/26/2018 5:00 PM [employer] TECHNICIAN Pulse 102 07/26/2018 5:00 PM [employer] TECHNICIAN Temperature 36.8 C (98.3 F) 07/26/2018 5:00 PM [employer] TECHNICIAN Respiratory Rate 24 07/26/2018 5:00 PM [employer] TECHNICIAN Oxygen Saturation 99% - Inhaled Oxygen - Concentration 07/26/2018 4:53 AM [employer] TECHNIC[employer] Weight 63.9 kg (140 lb 12.8 oz) 07/26/2018 4:53 AM [employer] TECHNICIAN Height 152.4 cm (5') 07/26/2018 4:53 AM [employer] TECHNICIAN Body Mass Index 27.5 Plan of Treatment Health Maintenance Due Date Last Done Comments CERVICAL CANCER SCREENING 12/18/2000 INFLUENZA VACCINE 02/07/2018 Implants Device Identifier Shelf Expiration Date Model / Serial / Lot Implanted Type Area Manufactur er Bladder Sling Breast Implant-01/14/2009 Implanted: 01/14/2009 (Quantity not on file) Procedures Comments Procedure Name Priority Date/Time Associated Diagnosis NM LUNG VENTILATION STAT 07/26/2018 PERFUSION 2:50 PM [employer] TECHNICIAN TROPONIN Routine 07/26/2018 10:21 AM [employer] TECHNICIAN HC COMPLETE BLD COUNT Routine 07/26/2018 W/AUTO DIFF 7:46 AM [employer] TECHNICIAN ESTIMATED GFR Routine 07/26/2018 4:00 AM [employer] TECHNICIAN BASIC METABOLIC PANEL Routine 07/26/2018 4:00 AM [employer] TECHNICIAN TROPONIN Timed 07/25/2018 11:16 PM [employer] TECHNICIAN LACTIC ACID LEVEL, SEPSIS Timed 07/25/2018 - NOW AND REPEAT 2X EVERY 11:16 PM [employer] TECHNICIAN 3 HOURS LIPASE LEVEL Routine 07/25/2018 9:43 PM [employer] TECHNICIAN GRAM STAIN STAT 07/25/2018 7:10 PM [employer] TECHNICIAN URINE CULTURE STAT 07/25/2018 7:10 PM [employer] TECHNICIAN ARTERIAL BLOOD GAS STAT 07/25/2018 6:46 PM [employer] TECHNICIAN XR CHEST 1 VW PORTABLE STAT 07/25/2018 6:33 PM [employer] TECHNICIAN XR NECK SOFT TISSUE STAT 07/25/2018 6:33 PM [employer] TECHNICIAN ESTIMATED GFR STAT 07/25/2018 6:13 PM [employer] TECHNICIAN URINALYSIS SCREEN AND STAT 07/25/2018 MICROSCOPY, WITH REFLEX 6:13 PM [employer] TECHNICIAN TO CULTURE B NATRIURETIC PEPTIDE STAT 07/25/2018 6:13 PM [employer] TECHNICIAN TROPONIN STAT 07/25/2018 6:13 PM [employer] TECHNICIAN LACTIC ACID LEVEL, SEPSIS STAT 07/25/2018 - NOW AND REPEAT 2X EVERY 6:13 PM [employer] TECHNICIAN 3 HOURS COMPREHENSIVE METABOLIC STAT 07/25/2018 PANEL 6:13 PM [employer] TECHNICIAN PARTIAL THROMBOPLASTIN STAT 07/25/2018 TIME (PTT) 6:13 PM [employer] TECHNICIAN PROTHROMBIN TIME WITH INR STAT 07/25/2018 6:13 PM [employer] TECHNICIAN HC COMPLETE BLD COUNT STAT 07/25/2018 W/AUTO DIFF 6:13 PM [employer] TECHNICIAN ECG ED PRELIMINARY Routine 07/25/2018 INTERPRETATION 5:13 PM [employer] TECHNICIAN NM CRITICAL CARE, E/M Routine 07/25/2018 30-74 MINUTES 5:13 PM [employer] TECHNICIAN ECG 12-LEAD STAT 07/25/2018 4:59 PM [employer] TECHNICIAN ECG 12-LEAD Routine 07/25/2018 4:15 [address] [address] ABDOMEN PELVIS WO STAT 12/08/2017 CONTRAST [...] CDT ZZESTIMATED GFR STAT 08/28/2017 6:02 PM [employer] TECHNICIAN HC COMPLETE BLD COUNT STAT 08/28/2017 W/AUTO DIFF 6:02 PM [employer] TECHNICIAN COMPREHENSIVE METABOLIC STAT 08/28/2017 PANEL 6:02 PM [employer] TECHNICIAN XR FOREARM 2 VW RIGHT STAT 08/28/2017 5:17 PM [employer] TECHNICIAN XR FOREARM 2 VW RIGHT STAT 08/28/2017 3:27 PM [employer] TECHNICIAN after 07/26/2017 Results * NM Lung Ventilation Perfusion (07/26/2018 2:50 PM [employer] TECHNICIAN) Narrative Performed At PROCEDURE:NM LUNG VENTILATION PERFUSION [facility] INDICATION:PE suspected. COMPARISON:Chest x-ray dated 07/25/2018. TECHNIQUE:Planar ventilation images were acquired after the inhalation of 15 mCi of Xe-133 gas. Planar perfusion images were acquired after the IV administration of 5 mCi of Tc-99m MAA. FINDINGS:Ventilation images demonstrate decreased ventilation to the lung periphery. Washout images demonstrate no gas trapping.Perfusion images demonstrate small defects in the lung periphery, matching the ventilation images.No mismatched defects.Artifact from clotted tracer is noted in the right lung. IMPRESSION: 1.Very low probability for PE. [facility]-[id number] Procedure Note Interface, Radiology Results Incoming - 07/26/2018 3:45 PM [employer] TECHNICIAN PROCEDURE: NM LUNG VENTILATION PERFUSION INDICATION: PE suspected. COMPARISON: Chest x-ray dated 07/25/2018. TECHNIQUE: Planar ventilation images were acquired after the inhalation of 15 mCi of Xe-133 gas. Planar perfusion images were acquired after the IV administration of 5 mCi of Tc-99m MAA. FINDINGS: Ventilation images demonstrate decreased ventilation to the lung periphery. Washout images demonstrate no gas trapping. Perfusion images demonstrate small defects in the lung periphery, matching the ventilation images. No mismatched defects. Artifact from clotted tracer is noted in the right lung. IMPRESSION: 1. Very low probability for PE. [facility]-[id number] Performing Organization Address City/[facility]/Zipcode Phone Number [facility] [address] [place] [address] * Troponin (07/26/2018 10:21 AM [employer] TECHNICIAN) Only the most recent of 3 results within the time period is included. Troponin <0.30 0.00 - 0.30 ng/mL [facility] Comment: HOSPITAL 0.30 - 1.49 ng/mlMay indicate increased risk of acute coronary syndrome. >=1.5 ng/ml Consistent with acute myocardial infarction. The diagnostic value of a single normal or non-diagnostic result is questionable.Serial samples at 2-6 hour intervals are required to rule out acute myocardial injury. Specimen Plasma specimen Performing Organization Address City/[facility] Phone Number [facility] DEPARTMENT OF [address] [place] [address] PATHOLOGY AND GENOMIC MEDICINE [address] * CBC with platelet and differential (07/26/2018 7:46 AM [employer] TECHNICIAN) Only the most recent of 5 results within the time period is included. WBC 7.05 4.50 - 11.00 k/uL [facility] RBC 3.56 (L) 4.20 - 5.50 m/uL [facility] HGB 9.7 (L) 12.0 - 16.0 g/dL [facility] HCT 30.5 (L) 37.0 - 47.0 % [facility] MCV 85.7 82.0 - 100.0 fL [facility] MCH 27.2 27.0 - 34.0 pg [facility] MCHC 31.8 31.0 - 37.0 g/dL [facility] RDW - SD 47.8 37.0 - 55.0 fL [facility] MPV 10.7 8.8 - 13.2 fL [facility] Platelet count 201 150 - 400 k/uL [facility] Nucleated RBC 0.00 /100 WBC [facility] Neutrophils 69.7 (H) 39.0 - 69.0 % [facility] Lymphocytes 19.9 (L) 25.0 - 45.0 % [facility] Monocytes 9.9 0.0 - 10.0 % [facility] Eosinophils 0.1 0.0 - 5.0 % [facility] Basophils 0.1 0.0 - 1.0 % [facility] Immature granulocytes 0.3Comment: "Immature 0.0 - 1.0 % [facility] granulocytes" (promyelocytes, HOSPITAL myelocytes, metamyelocytes) Specimen Blood Performing Organization Address City/[facility]ode Phone Number [facility] DEPARTMENT OF [address] [place] [address] PATHOLOGY AND [facility] MEDICINE [address] * Estimated GFR (07/26/2018 4:00 AM [employer] TECHNICIAN) Only the most recent of 2 results within the time period is included. Estimated GFR >=90 mL/min/1.73 m2 [facility] Comment: HOSPITAL CatergoryUnitsInte rpretation G1 >=90 Normal or high G2 60-89Mildly decreased [id number] Mildly to moderately decreased [id number] Moderately to severely decreased G4 15-29Severely decreased G5 <15Kidney failure The eGFR was calculated using the Chronic Kidney Disease Epidemiology Collaboration (CKD-EPI) equation. Interpretation is based on recommendations of the National Kidney Foundation-Kidney Disease Outcomes Quality Initiative (NKF-KDOQI) published in 2014. Specimen Plasma specimen Performing Organization Address City/[facility]/Zipcode Phone Number [facility] DEPARTMENT OF [address] [place] [address] PATHOLOGY AND GENOMIC MEDICINE [address] * Basic metabolic panel (07/26/2018 4:00 AM [employer] TECHNICIAN) Sodium 142 135 - 148 mEq/L [facility] Potassium 4.0 3.5 - 5.0 mEq/L [facility] Chloride 110 98 - 112 mEq/L [facility] CO2 20 (L) 24 - 31 mEq/L [facility] Anion gap 12@ANIO 7 - 15 mEq/L [facility] BUN 15 6 - 20 mg/dL [facility] Creatinine 0.69 0.50 - 0.90 mg/dL [facility] Glucose 130 (H) 65 - 99 mg/dL [facility] Calcium 9.1 8.3 - 10.2 mg/dL [facility] Specimen Plasma specimen Performing Organization Address [facility] Phone Number [facility] [place] [address] PATHOLOGY AND GENOMIC MEDICINE [address] * Lactic acid level, SEPSIS - Now and repeat 2x every 3 hours (07/25/2018 11:16 PM [employer] TECHNICIAN) Only the most recent of 2 results within the time period is included. Lactic acid 1.9 0.5 - 2.2 mmol/L [facility] Specimen Blood Performing Organization Address [facility] Phone Number [facility] [place] [address] PATHOLOGY AND GENOMIC MEDICINE [address] * Lipase level (07/25/2018 9:43 PM [employer] TECHNICIAN) Only the most recent of 3 results within the time period is included. Lipase 10 (L) 13 - 60 U/L [facility] Specimen Plasma specimen Performing Organization Address [facility] Phone Number [facility] [place] [address] PATHOLOGY AND GENOMIC MEDICINE [address] * Gram stain (07/25/2018 7:10 PM [employer] TECHNICIAN) Only the most recent of 3 results within the time period is included. Gram stain result No WBC's [facility] Few Gram negative rods [facility] Moderate Gram positive rods Comment: Specimen Information Specimen Source: Urine Specimen Site: Clean catch Specimen Urine Performing Organization Address [facility] Phone Number [facility] [place] [address] PATHOLOGY AND GENOMIC MEDICINE [address] * Urine culture (07/25/2018 7:10 PM [employer] TECHNICIAN) Only the most recent of 3 results within the time period is included. Urine culture isolate Mixed rachele 10-4 col/cc [facility] Comment: HOSPITAL Specimen Information Specimen Source: Urine Specimen Site: Clean catch Specimen Urine Performing Organization Address City/[facility] Centercode Phone Number [facility] [place] [address] PATHOLOGY AND [facility] MEDICINE [address] * Arterial blood gas (07/25/2018 6:46 PM [employer] TECHNICIAN) pH, arterial 7.38 7.35 - 7.45 [facility] pCO2, arterial 31 (L) 35 - 45 mmHg [facility] pO2, arterial 106 (H) 80 - 90 mmHg [facility] Bicarbonate, arterial 18.2 (L) 21.0 - 28.0 mmol/L [facility] Base excess, arterial -6 (L) -2 - 2 mEq/L [facility] O2 saturation, arterial 99 95 - 100 % [facility] Specimen Blood Performing Organization Address [facility] Cent[facility]ode Phone Number [facility] [place] [address] PATHOLOGY AND GENOMIC MEDICINE [address] * XR Chest 1 Vw Portable (07/25/2018 6:33 PM [employer] TECHNICIAN) Narrative Performed At EXAMINATION:[facility]ST [facility] CLINICAL H[facility]ORY:Shortness of breath XR CHEST 1 VW PORTABLEimages are submitted COMPARISON:07/18/2016 FINDINGS: The cardiac silhouette is normal in size. The pulmonary vasculature is within normal limits. The lung zones have no focal area of consolidation. There is no pleural effusion or pneumothorax. The chest port has the tip in the superior vena cava. IMPRESSION: 1. There is no acute cardiopulmonary disease. [id number] Procedure Note Interface, Radiology Results Incoming - 07/25/2018 6:52 PM [employer] TECHNICIAN EXAMINATION: XR CHEST 1 VW PORTABLE CLINICAL HISTORY: Shortness of breath XR CHEST 1 VW PORTABLE images are submitted COMPARISON: 07/18/2016 FINDINGS: The cardiac silhouette is normal in size. The pulmonary vasculature is within normal limits. The lung zones have no focal area of consolidation. There is no pleural effusion or pneumothorax. The chest port has the tip in the superior vena cava. IMPRESSION: 1. There is no acute cardiopulmonary disease. [id number] Performing Organization Address City/[facility]/[place] [address] * XR Neck Soft Tissue (07/25/2018 6:33 PM [employer] TECHNICIAN) Narrative Performed At EXAMINATION: XR NECK SOFT TISSUE [facility] CLINICAL HISTORY: sob feels like throat is swelling COMPARISON:None IMPRESSION: Suspected artifact projecting over the right aspect of the larynx at the level of the glottis on the AP view. Otherwise unremarkable radiographic appearance of the cervical aerodigestive tract. Right chest wall port with catheter tip in the mid to upper SVC. [id number] Procedure Note Hm Interface, Radiology Results Incoming - 07/25/2018 6:41 PM [employer] TECHNICIAN EXAMINATION: XR NECK SOFT TISSUE CLINICAL HISTORY: sob feels like throat is swelling COMPARISON: None IMPRESSION: Suspected artifact projecting over the right aspect of the larynx at the level of the glottis on the AP view. Otherwise unremarkable radiographic appearance of the cervical aerodigestive tract. Right chest wall port with catheter tip in the mid to upper SVC. [id number] Performing Organization Address [facility] Phone Number [facility] [address] [place] [address] * Urinalysis screen and microscopy, with reflex to culture (07/25/2018 6:13 PM [employer] TECHNICIAN) Only the most recent of 3 results within the time period is included. Specimen site Clean catch [facility] Color, UA Straw [facility] Appearance, UA Clear [facility] Specific gravity, UA 1.009 1.001 - 1.035 [facility] pH, UA 7.0 5.0 - 8.5 [facility] Protein, UA Negative Negative [facility] Glucose, UA Negative Negative [facility] Ketones, UA Negative Negative [facility] Bilirubin, UA Negative Negative [facility] Blood, UA Negative Negative [facility] Nitrite, UA Negative Negative [facility] Urobilinogen, UA <2.0 <2.0 [facility] Leukocyte esterase, UA Large (A) Negative [facility] Epithelial cells, UA 7 /HPF [facility] WBC, UA 2 0 - 4 /HPF [facility] RBC, UA None seen 0 - 5 /HPF [facility] Bacteria, UA Few None seen [facility] Yeast, UA None seen [facility] Yeast with pseudohyphae, None seen [facility] Specimen Urine Performing Organization Address City/[facility] Phone Number [facility] DEPARTMENT OF [address] [place] [address] PATHOLOGY AND GENOMIC MEDICINE [address] * Partial thromboplastin time, activated (07/25/2018 6:13 PM [employer] TECHNICIAN) PTT 28.8 23.0 - 36.0 sec [facility] Comment: HOSPITAL PTT therapeutic range for unfractionated heparin is 61.0-112.0 seconds which corresponds to Anti-Xa 0.3-0.7 U/ml. Specimen Blood Performing Organization Address City/State/Zipcode Phone Number [facility] DEPARTMENT OF [address] [place] [address] PATHOLOGY AND GENOMIC MEDICINE [address] * Prothrombin time with INR (07/25/2018 6:13 PM F[employer]ER [employer] TECHNICIAN) Prothrombin time 13.9 11.5 - 14.5 sec [facility] INR 1.1 [facility] Comment: HOSPITAL The International Normalized Ratio (INR) is a therapeutic monitoring tool for patients who are stable on oral anticoagulant therapy. An INR of 2.0-3.0 is suggested for deep vein thrombosis/pulmonary embolism. Specimen Blood Performing Organization Address City/[facility] Phone Number [facility] DEPARTMENT OF [address] [place] [address] PATHOLOGY AND GENOMIC MEDICINE [address] * B natriuretic peptide (07/25/2018 6:13 PM [employer]ER [employer] TECHNICIAN) BNP 6 0 - 100 pg/mL [facility] Specimen Blood Performing Organization Address City/[facility]/Zipcode Phone Number [facility] DEPARTMENT OF [address] [place] [address] PATHOLOGY AND GENOMIC MEDICINE [address] * Comprehensive metabolic panel (07/25/2018 6:13 PM [employer] TECHNICIAN) Only the most recent of 4 results within the time period is included. Sodium 139 135 - 148 mEq/L [facility] Potassium 4.2 3.5 - 5.0 mEq/L [facility] Chloride 109 98 - 112 mEq/L [facility] CO2 19 (L) 24 - 31 mEq/L [facility] Anion gap 11@ANIO 7 - 15 mEq/L [facility] BUN 12 6 - 20 mg/dL [facility] Creatinine 0.66 0.50 - 0.90 mg/dL [facility] Glucose 162 (H) 65 - 99 mg/dL [facility] Calcium 9.3 8.3 - 10.2 mg/dL [facility] Protein 7.9 6.3 - 8.3 g/dL [facility] Comment: HOSPITAL 4.6-7.0 g/dL 1 week 4.4-7.6 g/dL 7 months-1year 5.1-7.3 g/dL 1-2 years5.6-7 .5 g/dL >3 years6.0-8 .0 g/dL 18-150 6.3-8.3 g/dL Albumin 4.1 3.5 - 5.0 g/dL [facility] A/G ratio 1.1 0.7 - 3.8 [facility] Alkaline phosphatase 91 35 - 104 U/L [facility] AST 35 10 - 35 U/L [facility] ALT 33 5 - 50 U/L [facility] Total bilirubin <0.2 0.0 - 1.2 mg/dL [facility] Specimen Plasma specimen Performing Organization Address City/State/Zipcode Phone Number [facility] DEPARTMENT OF [address] [place] [address] PATHOLOGY AND GENOMIC MEDICINE [address] * ECG ED Preliminary Interpretation - Not an Order (07/25/2018 5:13 PM F[employer]ER [employer] TECHNICIAN) Narrative Performed At Cristiano Cardona MD 07/26/20188:05 PM ECG ED Preliminary Interpretation - Not an Order Performed by: Cristiano Cardona MD Authorized by: Cristiano Cardona MD ECG reviewed by ED Physician in the absence of a party host: yes Interpretation: Interpretation: normal Rate: ECG rate:113 ECG rate assessment: tachycardic Rhythm: Rhythm: sinus tachycardia Ectopy: Ectopy: none QRS: QRS axis:Normal QRS intervals:Normal Conduction: Conduction: normal ST segments: ST segments:Normal T waves: T waves: normal * CRITICAL CARE (07/25/2018 5:13 PM F[employer]ER [employer] TECHNICIAN) Narrative Performed At Cristiano Cardona MD 07/26/20188:05 PM Critical Care Performed by: Cristiano Cardona MD Authorized by: Cristiano Cardona MD Critical care provider statement: Critical care time (minutes):35 Critical care start time:07/25/2018 6:25 PM Critical care time was exclusive of:Separately billable procedures and treating other patients Critical care was necessary to treat or prevent imminent or life-threatening deterioration of the following conditions: poss AR. Critical care was time spent personally by me on the following activities:Blood draw for specimens, development of treatment plan with patient or surrogate, discussions with consultants, obtaining history from patient or surrogate, interpretation of cardiac output measurements, examination of patient, evaluation of patient's response to treatment, ordering and performing treatments and interventions, ordering and review of laboratory studies, ordering and review of radiographic studies, pulse oximetry, re-evaluation of patient's condition and review of old charts * ECG 12 lead (07/25/2018 4:59 PM FIBER OPTIC TECHNICIAN) Only the most recent of 2 results within the time period is included. Ventricular rate 113 [facility] Atrial rate 113 [facility] NM interval 148 [facility] QRSD interval 74 [facility] QT interval 348 [facility] QTC interval 477 [facility] P axis 1 53 [facility] QRS axis 1 65 [facility] T wave axis 53 [facility] EKG impression Sinus tachycardia-Low voltage [facility] MUSE QRS-Borderline ECG-In automated comparison with ECG of 25-JUL-2018 16:15,-No significant change was found- Narrative Performed At Performing Organization Address City/State/Zipcode Phone Number [facility] MUSE [address] [place] [address] * CT Abdomen Pelvis Wo Contrast (12/08/2017 [...] bladder calculi are visualized. No hydronephrosis. [facility]-[id number] Procedure Note [facility], Radiology Results Incoming - 12/08/2017 9:55 PM [...] bladder calculi are visualized. No hydronephrosis. [facility]-[id number] Performing Organization Address [facility]/Zipcode Phone Number [facility] [address] [place] [address] * Estimated GFR (12/08/2017 9:12 PM CDT) Only the most recent of 3 results within the time period is included. GFR Non Af Amer >90 mL/min/1.73 m2 [facility] DEPARTMENT OF PATHOLOGY AND GENOMIC MEDICINE GFR Af Amer >90 mL/min/1.73 m2 [facility] DEPARTMENT OF Comment: PATHOLOGY AND Chronic [...] Americans. Specimen Plasma specimen Performing Organization Address [facility] Cent[facility] Phone Number [facility] [place] [address] PATHOLOGY AND [email or web address] MEDICINE * hCG qualitative, serum screen (12/08/2017 9:12 PM CDT) hCG qualitative, serum NegativeComment: Sensitivity [facility] DEPARTMENT OF of HCG test: 25 mIU/mL PATHOLOGY AND [email or web address] MEDICINE Specimen Blood Performing Organization Address City/[facility]/Zipcode Phone Number [address] [address] PATHOLOGY AND GENOMIC MEDICINE * Amylase level (10/14/2017 11:37 AM CDT) Amylase 45 13 - 73 U/L [facility] DEPARTMENT OF PATHOLOGY AND GENOMIC MEDICINE Specimen Plasma specimen Performing Organization Address City/[facility] Centercode Phone Number [facility] DEPARTMENT [address] [place] [address] PATHOLOGY AND GENOMIC MEDICINE * XR Forearm 2 Vw Right (08/28/2017 5:17 PM [employer] TECHNICIAN) Only the most recent of 2 results within the time period is included. Narrative Performed At EXAMINATION:XR FOREARM 2 VW RIGHT [facility] CLINICAL HISTORY:s p wound cleaning. re evaluate for FB COMPARISON:None. IMPRESSION: There is some subcutaneous air adjacent to the distal radius. No metallic foreign body is noted. [id number] Procedure Note Hm Interface, Radiology Results Incoming - 08/28/2017 5:48 PM [employer] TECHNICIAN EXAMINATION: XR FOREARM 2 VW RIGHT CLINICAL HISTORY: s p wound cleaning. re evaluate for FB COMPARISON: None. IMPRESSION: There is some subcutaneous air adjacent to the distal radius. No metallic foreign body is noted. [facility]-[id number] Performing Organization Address [facility] Centercout Phone Number [facility] [address] [place] [address] after 07/26/2017 Insurance Payer Benefit Subscriber ID Type Phone Address Plan / Group [facility] xxxxxxxxx HMO/PPO THCARE CHOICE/CHO ICE + Advance Directives Patient has advance care planning documents, and code status on file. For more i nformation, please contact: Timo Anne [address] [place] [address] Date Inactivated Comments Code Status Date Activated 01/15/2017 4:57 AM Full Code 01/14/2017 1:34 PM Code Status decision reached by: Patient
[2018-07-28] MEDS ORDERED: SODIUM CHLORIDE 0.9% 1000ML 1,000 ML IV STA (01:54)
[2018-07-28] MEDS ORDERED: PANTOPRAZOLE 40 MG 10ML VIAL IV STA (01:54)
[2018-07-28] MEDS ORDERED: PROMETHAZINE 25MG/ NS 50ML (IV) IV ONE (02:00)
--- NOTE | 2018-07-28 02:53 | Diagnostic Imaging Report ---
EXAM: CT ABDOMEN AND PELVIS without IV CONTRAST INDICATION: History of pancreatic cancer, abdominal pain COMPARISON: CT of the abdomen and pelvis without IV contrast June 18, 2018, May 14, 2018 and January 12, 2018 TECHNIQUE: The abdomen and pelvis were scanned using a multidetector helical scanner. Coronal and sagittal reformations were obtained. Dose modulation, iterative reconstruction, and/or weight based adjustment of the mA/kV was utilized to reduce the radiation dose to as low as reasonably achievable. Routine protocol performed. IV Contrast: None Oral Contrast: None CTDIvol has been reviewed. It is below the limits set by the Radiation Protocol Committee (RPC). FINDINGS: LOWER THORAX: No consolidations LIVER: Hepatic steatosis. BILIARY: Cholecystectomy. No ductal dilation. SPLEEN: No masses PANCREAS: Stable appearance with indistinct pancreatic head and atrophy of the body and tail. ADRENALS: No nodules RIGHT KIDNEY: Stable punctate stones in the right kidney measuring up to 3 mm in the inferior pole. LEFT KIDNEY: Stable punctate stones in the left kidney. GI TRACT: No wall thickening or obstruction. Normal appendix. VESSELS: No abdominal aortic aneurysm. Upper abdominal collateral vessels. PERITONEUM/RETROPERITONEUM: Trace free pelvic fluid. LYMPH NODES: No lymphadenopathy REPRODUCTIVE ORGANS: Normal appearance of the bilateral ovaries. No uterus. BLADDER: Normal SOFT TISSUES: Normal BONES: No suspicious bone lesions. IMPRESSION: No interval change in appearance of the abdomen. Bilateral nephrolithiasis. No hydronephrosis. Signed by: Dr. Rea Johnson M.D. on 07/28/2018 2:49 AM
[2018-07-28 04:14] LABS: BASOPHILS % 0.3 % (0.0-1.0); EOSINOPHILS # (AUTO) 0.2 (0.0-0.4); EOSINOPHILS % 4.6 % (0.0-6.0); HEMATOCRIT 32.1 % (34.2-44.1); HEMOGLOBIN 10.3 g/dL (12.0-16.0); LYMPHOCYTES # (AUTO) 1.2 (1.0-3.2); LYMPHOCYTES % 34.6 % (18.0-39.1); MEAN CORPUSCULAR HEMOGLOBIN 26.7 pg (28-32); MEAN CORPUSCULAR HGB CONC 32.1 g/dL (31-35); MEAN CORPUSCULAR VOLUME 83.2 fL (81-99); MONOCYTES # (AUTO) 0.2 (0.2-0.8); MONOCYTES % 6.9 % (4.4-11.3); NEUTROPHILS # (AUTO) 1.9 (2.1-6.9); NEUTROPHILS % 53.6 % (38.7-80.0); PLATELET COUNT 167 x10e3/uL (140-360); RED BLOOD COUNT 3.86 x10e6/uL (3.6-5.1); RED CELL DISTRIBUTION WIDTH 14.8 % (11.7-14.4)
[2018-07-28 04:22] LABS: CLARITY,URINE SL CLOUDY (CLEAR); COLOR,URINE YELLOW (YELLOW)
[2018-07-28 04:23] LABS: BILIRUBIN,URINE NEGATIVE (NEGATIVE); KETONES,URINE NEGATIVE (NEGATIVE); LEUKOCYTE ESTERASE ,URINE 2+ (NEGATIVE); NITRITE,URINE NEGATIVE (NEGATIVE); PROTEIN,URINE DIPSTICK NEGATIVE (NEGATIVE); URINE UROBILINOGEN 0.2 mg/dL (0.2 - 1)
[2018-07-28 04:28] LABS: BACTERIA,URINE MANY /HPF; EPITHELIAL CELLS,URINE MANY /LPF; RBC,URINE 0-5 /HPF (0-5)
[2018-07-28 04:29] LABS: ALANINE AMINOTRANSFERASE 174 IU/L (0-55); ALBUMIN 3.8 g/dL (3.5-5.0); ALBUMIN/GLOBULIN RATIO 1.2 (0.8-2.0); ALKALINE PHOSPHATASE 142 IU/L (40-150); AMYLASE 36 U/L (25-125); ANION GAP 12.9 mmol/L (8-16); BLOOD UREA NITROGEN 8 mg/dL (7-26); BUN/CREATININE RATIO 10 (6-25); CARBON DIOXIDE 20 mmol/L (22-29); CHLORIDE 108 mmol/L (98-107); CREATINE KINASE 80 IU/L (29-168); CREATININE, SERUM 0.78 mg/dL (0.57-1.11); EST GLOMERULAR FILTRATION RATE > 60 ML/MIN (60-); GLUCOSE 100 mg/dL (74-118); LIPASE 7 U/L (8-78); POTASSIUM 3.9 mmol/L (3.5-5.1); SODIUM 137 mmol/L (136-145)
[2018-07-28 04:32] LABS: INR 0.91; PARTIAL THROMBOPLASTIN TIME 29.4 seconds (23.8-35.5); PROTHROMBIN TIME 13.1 seconds (11.9-14.5)
[2018-07-28] MEDS ORDERED: DICYCLOMINE HCL 20 MG/2 ML VIAL IM ONE (05:30)
[2018-07-28] MEDS ORDERED: HYDROMORPHONE 2MG/ML 2 MG/ML ML IM ONE ×3 (09:00→19:00)
== END 2018-07-28 05:55 | disposition home or self-care (01) ==
LOC: ER 23:13
DX: R10.13 Epigastric pain (principal); R10.12 Left upper quadrant pain; R11.2 Nausea with vomiting, unspecified; R19.7 Diarrhea, unspecified; Z85.07 Personal history of malignant neoplasm of pancreas
CPT/HCPCS: 36415; 74176; 80053; 81001; 82150; 82550; 82553; 83690; 83735; 84484; 85025; 85610; 85730; 87086; 96374; 99283; J1170; J2550; J7030

== ENCOUNTER 2018-08-01 17:53 | Emergency (ER) | payer OTHER ==
[~2018-08-01] VITALS: Ht 152.4 cm; Wt 67.1 kg
--- OUTSIDE RECORDS SUMMARY | 2018-08-01 17:58 | XMS REPORT | Clinical Summary ---
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 Name Role Phone Asked, No Pcp [...] Emergency General Internal Medicine - 08/29/2017 after 07/31/2017 Family History Medical History Relation Name Comments [...] Taken Vital Sign Reading 07/26/2018 5:00 PM [employer]S OPERATOR [employer] Blood Pressure 133/77 07/26/2018 5:00 PM [employer]S O[employer]ATOR [employer] Pulse 102 07/26/2018 5:00 PM [employer]S O[employer] Temperature 36.8 C (98.3 F) 07/26/2018 5:00 PM [employer]S OPERATOR [employer] Respiratory Rate 24 07/26/2018 5:00 PM CONTR[employer]S OPERATOR [employer] Oxygen Saturation 99% - Inhaled Oxygen - Concentration 07/26/2018 4:53 AM CONTR[employer]S OPERATOR [employer] Weight 63.9 kg (140 lb 12.8 oz) 07/26/2018 4:53 AM [employer]S OPERATOR [employer] Height 152.4 cm (5') 07/26/2018 4:53 AM [employer]S OPERATOR [employer] Body Mass Index 27.5 Plan of Treatment Health Maintenance Due Date Last Done Comments CERVICAL CANCER SCREENING 12/18/2000 INFLUENZA VACCINE 02/07/2018 Implants Device Identifier Shelf Expiration Date Model / Serial / Lot Implanted Type Area Manufactur er Bladder Sling Breast Implant-01/14/2009 Implanted: 01/14/2009 (Quantity not on file) Procedures Comments Procedure Name Priority Date/Time Associated Diagnosis NM LUNG VENTILATION STAT 07/26/2018 PERFUSION 2:50 PM CONTROLS OPERATOR [employer] TROPONIN Routine 07/26/2018 10:21 AM [employer]S O[employer] HC COMPLETE BLD COUNT Routine 07/26/2018 W/AUTO DIFF 7:46 AM CONTR[employer]S OPERATOR [employer] ESTIMATED GFR Routine 07/26/2018 4:00 AM [employer] O[employer] BASIC METABOLIC PANEL Routine 07/26/2018 4:00 AM [employer]S O[employer] TROPONIN Timed 07/25/2018 11:16 PM [employer]S O[employer] LACTIC ACID LEVEL, SEPSIS Timed 07/25/2018 - NOW AND REPEAT 2X EVERY 11:16 PM [employer]S O[employer] 3 HOURS LIPASE LEVEL Routine 07/25/2018 9:43 PM [employer] O[employer] GRAM STAIN STAT 07/25/2018 7:10 PM [employer]S O[employer] URINE CULTURE STAT 07/25/2018 7:10 PM [employer] O[employer] ARTERIAL BLOOD GAS STAT 07/25/2018 6:46 PM [employer]S O[employer] XR CHEST 1 VW PORTABLE STAT 07/25/2018 6:33 PM [employer] XR NECK SOFT TISSUE STAT 07/25/2018 6:33 PM [employer]S O[employer]ATOR [employer] ESTIMATED GFR STAT 07/25/2018 6:13 PM [employer]S O[employer] URINALYSIS SCREEN AND STAT 07/25/2018 MICROSCOPY, WITH REFLEX 6:13 PM [employer]S O[employer] TO CULTURE B NATRIURETIC PEPTIDE STAT 07/25/2018 6:13 PM CONTR[employer]S OPERATOR [employer] TROPONIN STAT 07/25/2018 6:13 PM CONTR[employer]S OPERATOR [employer] LACTIC ACID LEVEL, SEPSIS STAT 07/25/2018 - NOW AND REPEAT 2X EVERY 6:13 PM CONTR[employer]S OPERATOR [employer] 3 HOURS COMPREHENSIVE METABOLIC STAT 07/25/2018 PANEL 6:13 PM CONTROLS OPERATOR [employer] PARTIAL THROMBOPLASTIN STAT 07/25/2018 TIME (PTT) 6:13 PM CONTROLS OPERATOR [employer] PROTHROMBIN TIME WITH INR STAT 07/25/2018 6:13 PM CONTROLS OPERATOR [employer] HC COMPLETE BLD COUNT STAT 07/25/2018 W/AUTO DIFF 6:13 PM CONTROLS OPERATOR [employer] ECG ED PRELIMINARY Routine 07/25/2018 INTERPRETATION 5:13 PM CONTROLS OPERATOR [employer] KS CRITICAL CARE, E/M Routine 07/25/2018 30-74 MINUTES 5:13 PM CONTROLS OPERATOR [employer] ECG 12-LEAD STAT 07/25/2018 4:59 PM CONTR[employer]S OPERATOR [employer] ECG 12-LEAD Routine 07/25/2018 4:15 PM CONTROLS OPERATOR [employer] CT ABDOMEN PELVIS WO STAT 12/08/2017 CONTRAST [...] CDT ZZESTIMATED GFR STAT 08/28/2017 6:02 PM CONTROLS OPERATOR [employer] HC COMPLETE BLD COUNT STAT 08/28/2017 W/AUTO DIFF 6:02 PM CONTROLS OPERATOR [employer] COMPREHENSIVE METABOLIC STAT 08/28/2017 PANEL 6:02 PM CONTR[employer]S OPERATOR [employer] XR FOREARM 2 VW RIGHT STAT 08/28/2017 5:17 PM CONTR[employer]S OPERATOR [employer] XR FOREARM 2 VW RIGHT STAT 08/28/2017 3:27 PM CONTROLS OPERATOR [employer] after 07/31/2017 Results * NM Lung Ventilation Perfusion (07/26/2018 2:50 PM CONTROLS OPERATOR [employer]) Narrative Performed At PROCEDURE:NM LUNG VENTILATION PERFUSION [...] lung. IMPRESSION: 1.Very low probability for PE. [facility]-[id number] Procedure Note Interface, Radiology Results Incoming - 07/26/2018 3:45 PM CONTROLS OPERATOR [employer] PROCEDURE: NM LUNG VENTILATION PERFUSION INDICATION: PE [...] IMPRESSION: 1. Very low probability for PE. [facility]-[id number] Performing Organization Address City/[facility]/Zipcode Phone Number [facility] [address] [place] [address] * Troponin (07/26/2018 10:21 AM CONTROLS OPERATOR [employer]) Only the most recent of 3 results within the time period is included. Troponin <0.30 0.00 - 0.30 ng/mL [facility] Comment: HOSPITAL 0.30 - 1.49 ng/mlMay indicate increased risk of acute coronary syndrome. >=1.5 ng/ml Consistent with acute myocardial infarction. The diagnostic value of a single normal or non-diagnostic result is questionable.Serial samples at 2-6 hour intervals are required to rule out acute myocardial injury. Specimen Plasma specimen Performing Organization Address City/[facility] Cent[facility]ode Phone Number [facility] DEPARTMENT OF [address] [place] [address] PATHOLOGY AND GENOMIC MEDICINE [address] * CBC with platelet and differential (07/26/2018 7:46 AM CONTROLS OPERATOR [employer]) Only the most recent of 5 results within the time period is included. WBC 7.05 4.50 - 11.00 k/uL [facility] RBC 3.56 (L) 4.20 - 5.50 m/uL [facility] HGB 9.7 (L) 12.0 - 16.0 g/dL [facility] HCT 30.5 (L) 37.0 - 47.0 % [facility] MCV 85.7 82.0 - 100.0 fL [facility] MCH 27.2 27.0 - 34.0 pg [facility] MCHC 31.8 31.0 - 37.0 g/dL [facility] RDW - SD 47.8 37.0 - 55.0 fL [facility] MPV 10.7 8.8 - 13.2 fL [facility] Platelet count 201 150 - 400 k/uL [facility] Nucleated RBC 0.00 /100 WBC [facility] Neutrophils 69.7 (H) 39.0 - 69.0 % [facility] Lymphocytes 19.9 (L) 25.0 - 45.0 % [facility] Monocytes 9.9 0.0 - 10.0 % [facility] Eosinophils 0.1 0.0 - 5.0 % [facility] Basophils 0.1 0.0 - 1.0 % [facility] Immature granulocytes 0.3Comment: "Immature 0.0 - 1.0 % [facility] granulocytes" (promyelocytes, HOSPITAL myelocytes, metamyelocytes) Specimen Blood Performing Organization Address City/[facility] Centercode Phone Number [facility] DEPARTMENT OF [address] [place] [address] PATHOLOGY AND [facility] MEDICINE [address] * Estimated GFR (07/26/2018 4:00 AM CONTROLS OPERATOR [employer]) Only the most recent of 2 results within the time period is included. Estimated GFR >=90 mL/min/1.73 m2 [facility] Comment: HOSPITAL CatergoryUnitsInte rpretation G1 >=90 Normal or high G2 60-89Mildly decreased [id number] Mildly to moderately decreased [id number] Moderately to severely decreased G4 15-29Severely decreased G5 <15Kidney failure The eGFR was calculated using the Chronic Kidney Disease Epidemiology Collaboration (CKD-EPI) equation. Interpretation is based on recommendations of the National Kidney Foundation-Kidney Disease Outcomes Quality Initiative (NKF-KDOQI) published in 2014. Specimen Plasma specimen Performing Organization Address City/[facility]/Zipcode Phone Number [facility] DEPARTMENT OF [address] [place] [address] PATHOLOGY AND GENOMIC MEDICINE [address] * Basic metabolic panel (07/26/2018 4:00 AM CONTROLS OPERATOR [employer]) Sodium 142 135 - 148 mEq/L [facility] Potassium 4.0 3.5 - 5.0 mEq/L [facility] Chloride 110 98 - 112 mEq/L [facility] CO2 20 (L) 24 - 31 mEq/L [facility] Anion gap 12@ANIO 7 - 15 mEq/L [facility] BUN 15 6 - 20 mg/dL [facility] Creatinine 0.69 0.50 - 0.90 mg/dL [facility] Glucose 130 (H) 65 - 99 mg/dL [facility] Calcium 9.1 8.3 - 10.2 mg/dL [facility] Specimen Plasma specimen Performing Organization Address [facility] Phone Number [facility] [place] [address] PATHOLOGY AND GENOMIC MEDICINE [address] * Lactic acid level, SEPSIS - Now and repeat 2x every 3 hours (07/25/2018 11:16 PM CONTROLS OPERATOR [employer]) Only the most recent of 2 results within the time period is included. Lactic acid 1.9 0.5 - 2.2 mmol/L [facility] Specimen Blood Performing Organization Address [facility] Phone Number [facility] [place] [address] PATHOLOGY AND GENOMIC MEDICINE [address] * Lipase level (07/25/2018 9:43 PM CONTROLS OPERATOR [employer]) Only the most recent of 3 results within the time period is included. Lipase 10 (L) 13 - 60 U/L [facility] Specimen Plasma specimen Performing Organization Address [facility] Phone Number [facility] [place] [address] PATHOLOGY AND GENOMIC MEDICINE [address] * Gram stain (07/25/2018 7:10 PM CONTROLS OPERATOR [employer]) Only the most recent of 3 results within the time period is included. Gram stain result No WBC's [facility] Few Gram negative rods [facility] Moderate Gram positive rods Comment: Specimen Information Specimen Source: Urine Specimen Site: Clean catch Specimen Urine Performing Organization Address [facility] Phone Number [facility] [place] [address] PATHOLOGY AND GENOMIC MEDICINE [address] * Urine culture (07/25/2018 7:10 PM CONTROLS OPERATOR [employer]) Only the most recent of 3 results within the time period is included. Urine culture isolate Mixed rachele 10-4 col/cc [facility] Comment: HOSPITAL Specimen Information Specimen Source: Urine Specimen Site: Clean catch Specimen Urine Performing Organization Address City/[facility] Centercode Phone Number [facility] [place] [address] PATHOLOGY AND [facility] MEDICINE [address] * Arterial blood gas (07/25/2018 6:46 PM CONTROLS OPERATOR [employer]) pH, arterial 7.38 7.35 - 7.45 [facility] pCO2, arterial 31 (L) 35 - 45 mmHg [facility] pO2, arterial 106 (H) 80 - 90 mmHg [facility] Bicarbonate, arterial 18.2 (L) 21.0 - 28.0 mmol/L [facility] Base excess, arterial -6 (L) -2 - 2 mEq/L [facility] O2 saturation, arterial 99 95 - 100 % [facility] Specimen Blood Performing Organization Address [facility] Centercode Phone Number [facility] [place] [address] PATHOLOGY AND GENOMIC MEDICINE [address] * XR Chest 1 Vw Portable (07/25/2018 6:33 PM CONTROLS OPERATOR [employer]) Narrative Performed At EXAMINATION:XR CHEST 1 [facility] CL[facility]:Shortness of breath XR [...] 1. There is no acute cardiopulmonary disease. [id number] Procedure Note Interface, Radiology Results Incoming - 07/25/2018 6:52 PM CONTROLS OPERATOR [employer] EXAMINATION: XR CHEST 1 VW PORTABLE CLINICAL [...] 1. There is no acute cardiopulmonary disease. [id number] Performing Organization Address City/[facility]/[place] [address] * XR Neck Soft Tissue (07/25/2018 6:33 PM CONTROLS OPERATOR [employer]) Narrative Performed At EXAMINATION: XR NECK SOFT TISSUE [facility] CLINICAL HISTORY: sob feels like throat is swelling COMPARISON:None IMPRESSION: Suspected artifact projecting over the right aspect of the larynx at the level of the glottis on the AP view. Otherwise unremarkable radiographic appearance of the cervical aerodigestive tract. Right chest wall port with catheter tip in the mid to upper SVC. [id number] Procedure Note Hm Interface, Radiology Results Incoming - 07/25/2018 6:41 PM CONTROLS OPERATOR [employer] EXAMINATION: XR NECK SOFT TISSUE CLINICAL HISTORY: sob feels like throat is swelling COMPARISON: None IMPRESSION: Suspected artifact projecting over the right aspect of the larynx at the level of the glottis on the AP view. Otherwise unremarkable radiographic appearance of the cervical aerodigestive tract. Right chest wall port with catheter tip in the mid to upper SVC. [id number] Performing Organization Address [facility] Phone Number [facility] [address] [place] [address] * Urinalysis screen and microscopy, with reflex to culture (07/25/2018 6:13 PM CONTROLS OPERATOR [employer]) Only the most recent of 3 results within the time period is included. Specimen site Clean catch [facility] Color, UA Straw [facility] Appearance, UA Clear [facility] Specific gravity, UA 1.009 1.001 - 1.035 [facility] pH, UA 7.0 5.0 - 8.5 [facility] Protein, UA Negative Negative [facility] Glucose, UA Negative Negative [facility] Ketones, UA Negative Negative [facility] Bilirubin, UA Negative Negative [facility] Blood, UA Negative Negative [facility] Nitrite, UA Negative Negative [facility] Urobilinogen, UA <2.0 <2.0 [facility] Leukocyte esterase, UA Large (A) Negative [facility] Epithelial cells, UA 7 /HPF [facility] WBC, UA 2 0 - 4 /HPF [facility] RBC, UA None seen 0 - 5 /HPF [facility] Bacteria, UA Few None seen [facility] Yeast, UA None seen [facility] Yeast with pseudohyphae, None seen [facility] Specimen Urine Performing Organization Address City/[facility] Phone Number [facility] DEPARTMENT OF [address] [place] [address] PATHOLOGY AND GENOMIC MEDICINE [address] * Partial thromboplastin time, activated (07/25/2018 6:13 PM CONTROLS OPERATOR [employer]) PTT 28.8 23.0 - 36.0 sec [facility] Comment: HOSPITAL PTT therapeutic range for unfractionated heparin is 61.0-112.0 seconds which corresponds to Anti-Xa 0.3-0.7 U/ml. Specimen Blood Performing Organization Address City/State/Zipcode Phone Number [facility] DEPARTMENT OF [address] [place] [address] PATHOLOGY AND GENOMIC MEDICINE [address] * Prothrombin time with INR (07/25/2018 6:13 PM CONTROLS OPERATOR [employer]) Prothrombin time 13.9 11.5 - 14.5 sec [facility] INR 1.1 [facility] Comment: HOSPITAL The International Normalized Ratio (INR) is a therapeutic monitoring tool for patients who are stable on oral anticoagulant therapy. An INR of 2.0-3.0 is suggested for deep vein thrombosis/pulmonary embolism. Specimen Blood Performing Organization Address City/[facility] Centercode Phone Number [facility] DEPARTMENT OF [address] [place] [address] PATHOLOGY AND GENOMIC MEDICINE [address] * B natriuretic peptide (07/25/2018 6:13 PM CONTROLS OPERATOR [employer]) BNP 6 0 - 100 pg/mL [facility] Specimen Blood Performing Organization Address City/[facility]/Zipcode Phone Number [facility] DEPARTMENT OF [address] [place] [address] PATHOLOGY AND GENOMIC MEDICINE [address] * Comprehensive metabolic panel (07/25/2018 6:13 PM CONTROLS OPERATOR [employer]) Only the most recent of 4 results within the time period is included. Sodium 139 135 - 148 mEq/L [facility] Potassium 4.2 3.5 - 5.0 mEq/L [facility] Chloride 109 98 - 112 mEq/L [facility] CO2 19 (L) 24 - 31 mEq/L [facility] Anion gap 11@ANIO 7 - 15 mEq/L [facility] BUN 12 6 - 20 mg/dL [facility] Creatinine 0.66 0.50 - 0.90 mg/dL [facility] Glucose 162 (H) 65 - 99 mg/dL [facility] Calcium 9.3 8.3 - 10.2 mg/dL [facility] Protein 7.9 6.3 - 8.3 g/dL [facility] Comment: HOSPITAL 4.6-7.0 g/dL 1 week 4.4-7.6 g/dL 7 months-1year 5.1-7.3 g/dL 1-2 years5.6-7 .5 g/dL >3 years6.0-8 .0 g/dL 18-150 6.3-8.3 g/dL Albumin 4.1 3.5 - 5.0 g/dL [facility] A/G ratio 1.1 0.7 - 3.8 [facility] Alkaline phosphatase 91 35 - 104 U/L [facility] AST 35 10 - 35 U/L [facility] ALT 33 5 - 50 U/L [facility] Total bilirubin <0.2 0.0 - 1.2 mg/dL [facility] Specimen Plasma specimen Performing Organization Address City/State/Zipcode Phone Number [facility] DEPARTMENT OF [address] [place] [address] PATHOLOGY AND GENOMIC MEDICINE [address] * ECG ED Preliminary Interpretation - Not an Order (07/25/2018 5:13 PM CONTROLS OPERATOR [employer]) Narrative Performed At Cristiano Cardona MD 07/26/20188:05 PM ECG ED Preliminary Interpretation - Not an Order Performed by: Cristiano Cardona MD Authorized by: Cristiano Cardona MD ECG reviewed by ED Physician in the absence of a rv repairer: yes Interpretation: Interpretation: normal Rate: ECG rate:113 ECG rate assessment: tachycardic Rhythm: Rhythm: sinus tachycardia Ectopy: Ectopy: none QRS: QRS axis:Normal QRS intervals:Normal Conduction: Conduction: normal ST segments: ST segments:Normal T waves: T waves: normal * CRITICAL CARE (07/25/2018 5:13 PM CONTROLS OPERATOR [employer]) Narrative Performed At Cristiano Cardona MD 07/26/20188:05 [...] * ECG 12 lead (07/25/2018 4:59 PM CONTROLS OPERATOR [employer]) Only the most recent of 2 results within the time period is included. Ventricular rate 113 [facility] Atrial rate 113 [facility] [place] interval 148 [facility] QRSD interval 74 [facility] QT interval 348 [facility] QTC interval 477 [facility] P axis 1 53 [facility] QRS axis 1 65 [facility] T wave axis 53 [facility] EKG impression Sinus tachycardia-Low voltage [facility] MUSE QRS-Borderline ECG-In automated comparison with ECG of 25-JUL-2018 16:15,-No significant change was found- Narrative Performed At Performing Organization Address City/State/Zipcode Phone Number [facility] MUSE [address] [place] [address] * CT Abdomen Pelvis Wo Contrast (12/08/2017 [...] urinary bladder calculi are visualized. No hydronephrosis. [id number] Procedure Note [facility], Radiology Results Incoming - 12/08/2017 9:55 [...] urinary bladder calculi are visualized. No hydronephrosis. [facility]-[id number] Performing Organization Address [facility]/Zipcode Phone Number [facility] [address] [place] [address] * Estimated GFR (12/08/2017 9:12 PM CDT) Only the most recent of 3 results within the time period is included. GFR Non Af Amer >90 mL/min/1.73 m2 [facility] DEPARTMENT OF PATHOLOGY AND GENOMIC MEDICINE GFR Af Amer >90 mL/min/1.73 m2 [facility] DEPARTMENT OF Comment: PATHOLOGY AND Chronic kidney [...] Americans. Specimen Plasma specimen Performing Organization Address [facility] Centercode Phone Number [facility] [place] [address] PATHOLOGY AND [employer] MEDICINE * hCG qualitative, serum screen (12/08/2017 9:12 PM CDT) hCG qualitative, serum NegativeComment: Sensitivity [facility] DEPARTMENT OF of HCG test: 25 mIU/mL PATHOLOGY AND [employer] MEDICINE Specimen Blood Performing Organization Address City/[facility]/Zipcode Phone Number [address] [address] PATHOLOGY AND GENOMIC MEDICINE * Amylase level (10/14/2017 11:37 AM CDT) Amylase 45 13 - 73 U/L [facility] DEPARTMENT OF PATHOLOGY AND GENOMIC MEDICINE Specimen Plasma specimen Performing Organization Address City/[facility] Centercode Phone Number [facility] DEPARTMENT [address] [place] [address] PATHOLOGY AND GENOMIC MEDICINE * XR Forearm 2 Vw Right (08/28/2017 5:17 PM CONTROLS OPERATOR [employer]) Only the most recent of 2 results within the time period is included. Narrative Performed At EXAMINATION:XR FOREARM 2 VW RIGHT [facility] CLINICAL HISTORY:s p wound cleaning. re evaluate for FB COMPARISON:None. IMPRESSION: There is some subcutaneous air adjacent to the distal radius. No metallic foreign body is noted. [id number] Procedure Note Hm Interface, Radiology Results Incoming - 08/28/2017 5:48 PM CONTROLS OPERATOR [employer] EXAMINATION: XR FOREARM 2 VW RIGHT CLINICAL HISTORY: s p wound cleaning. re evaluate for FB COMPARISON: None. IMPRESSION: There is some subcutaneous air adjacent to the distal radius. No metallic foreign body is noted. [id number] Performing Organization Address [facility] Centercond Phone Number [facility] [address] [place] [address] after 07/31/2017 Insurance Payer Benefit Subscriber ID Type Phone Address Plan / Group [employer] xxxxxxxxx HMO/PPO THCARE CHOICE/CHO ICE + Advance Directives Patient has advance care planning documents, and code status on file. For more i nformation, please contact: Timo Anne [address] [place] [address] Date Inactivated Comments Code Status Date Activated 01/15/2017 4:57 AM Full Code 01/14/2017 1:34 PM Code Status decision reached by: Patient
--- NOTE | 2018-08-01 21:22 | NUR ---
DR. RANKIN IN TRIAGE ROOM TO EVALUATE PATIENT
== END 2018-08-01 22:00 | disposition home or self-care (01) ==
LOC: ER 17:53
DX: R10.84 Generalized abdominal pain (principal); R10.12 Left upper quadrant pain; R11.0 Nausea; C25.9 Malignant neoplasm of pancreas, unspecified
CPT/HCPCS: 99283

== ENCOUNTER 2018-09-27 12:52 | Emergency (ER) | payer OTHER ==
[~2018-09-27] VITALS: Ht 152.4 cm; Wt 67.1 kg
--- OUTSIDE RECORDS SUMMARY | 2018-09-27 12:57 | XMS REPORT | Clinical Summary ---
Author Author [facility] Organization [facility] Address Unknown Phone Unavailable Care Team Providers Care Informatics Physician Liaison Name Role Phone Asked, No Pcp PCP [...] Medication Sig Dispensed Refills Start Date Active phenazopyridine Take 200 mg 0 (PYRIDIUM) 200 MG tablet by mouth 3 (three) times a day as needed for bladder spasms. Active ALPRAZolam (XANAX) 1 MG Take 1 mg by 0 tablet mouth 3 (three) times a day. Active promethazine (PHENERGAN) Take 25 mg by 0 25 MG tablet mouth every 6 (six) hours as needed for nausea or vomiting. Active eszopiclone (LUNESTA) 2 Take 3 mg by 0 MG tablet mouth 8 nightly. 08/02/2018 Discontinued potassium citrate Take 10 mEq 0 (UROCIT-K) 10 mEq (1,080 by mouth 2 mg) CR tablet (two) times a day. 08/07/2018 Discontinued carvedilol (COREG) 12.5 Take 12.5 mg 0 MG tablet by mouth 3 (three) times a day. For tachycardia 10/14/2017 Discontinued hydromorPHONE (DILAUDID) Take 8 mg by 0 8 MG tablet mouth every 4 (four) hours as needed for moderate pain. 10/14/2017 Discontinued fluconazole (DIFLUCAN) Take 200 mg 0 200 MG tablet by mouth daily as needed. For prophylaxis 10/14/2017 Discontinued carisoprodol (SOMA) 350 Take 350 mg 0 MG tablet by mouth 3 (three) times a day as needed for muscle spasms. 10/14/2017 Discontinued acetaminophen-codeine Take 1 tablet 0 (TYLENOL WITH CODEINE #3) by mouth 8 300-30 mg per tablet every 4 (four) hours as needed. 10/14/2017 Discontinued cephalexin (KEFLEX) 500 Take 500 mg 0 MG capsule by mouth 2 8 (two) times a day. 08/02/2018 Discontinued buPROPion XL (WELLBUTRIN Take 300 mg 0 XL) 300 MG 24 hr tablet by mouth 8 every morning. 08/02/2018 Discontinued sulfamethoxazole-trimetho Take 1 tablet 0 prim (BACTRIM DS) 800-160 by mouth 2 mg per tablet (two) times a day. 10/21/2017 amoxicillin-pot Take 1 tablet 14 tablet 0 clavulanate (AUGMENTIN) by mouth 2 8 875-125 mg per tablet (two) times a day for 7 days. 12/18/2017 cefpodoxime (VANTIN) 200 Take 1 tablet 20 tablet 0 MG tablet (200 mg 8 total) by mouth 2 (two) times a day for 10 days. 09/06/2018 carvedilol (COREG) 3.125 Take 1 tablet 60 tablet 0 201 MG tablet (3.125 mg 9 total) by mouth 2 (two) times a day for 30 days. Active Problems Problem Noted Date Intractable abdominal pain 08/02/2018 Tachycardia 07/25/2018 Chemotherapy adverse reaction 07/25/2018 Chest tightness 07/25/2018 Abdominal pain 07/25/2018 Chronic pancreatitis 07/25/2018 Pancreatic adenocarcinoma 07/25/2018 Opioid dependence 07/25/2018 Foreign body left in wound 08/28/2017 DVT (deep venous thrombosis) 01/16/2017 Chronic UTI 01/14/2017 Idiopathic acute pancreatitis without infection or necrosis 09/27/2016 Idiopathic pancreatitis 09/27/2016 Acute cystitis 07/15/2016 Renal stones 07/14/2016 Encounters Care Team Description Date Type Specialty Nenita Dunbar MD Reichl, MD Dulce Diaz, MD Estefania Palomino, Hakeem Grier MD Intractable abdominal pain (Primary Dx); Malignant neoplasm of pancreas, unspecified location of malignancy (HCC); Nausea and vomiting, intractability of vomiting not specified, unspecified vomiting type 08/02/2018 Hospital General Surgery - Encounter 08/07/2018 Cristiano Cardona MD Force, Hakeem Mcallister MD Tachycardia (Primary Dx); Allergic reaction, initial encounter; Adverse effect of chemotherapy, initial encounter; Generalized abdominal pain; Chronic pancreatitis, unspecified pancreatitis type (HCC) 07/25/2018 Emergency General Internal Medicine - 07/26/2018 Cristiano Cardona MD Generalized abdominal pain (Primary Dx); Flank pain; Renal calculi; Dysuria 12/08/2017 Emergency Emergency Medicine Evelin Perez PA-C Sidlak, Alexander Michael, MD Acute UTI (Primary Dx); Chronic abdominal pain 10/14/2017 Emergency Emergency Medicine after 09/26/2017 Family History Medical History Relation Name Comments [...] Vital Signs Time Taken Vital Sign Reading 08/07/2018 10:49 AM PRODUCTION REPAIRER Blood Pressure 124/73 08/07/2018 10:49 AM PRODUCTION REPAIRER Pulse 84 08/07/2018 10:49 AM PRODUCTION REPAIRER Temperature 36.3 C (97.4 F) 08/07/2018 10:49 AM PRODUCTION REPAIRER Respiratory Rate 18 08/07/2018 10:49 AM PRODUCTION REPAIRER Oxygen Saturation 99% - Inhaled Oxygen - Concentration 08/02/2018 3:03 PM PRODUCTION REPAIRER Weight 67.1 kg (148 lb) 08/02/2018 3:03 PM PRODUCTION REPAIRER Height 152.4 cm (5') 08/02/2018 3:03 PM PRODUCTION REPAIRER Body Mass Index 28.9 Plan of Treatment Health Maintenance Due Date Last Done Comments CERVICAL CANCER SCREENING 12/18/2000 INFLUENZA VACCINE 02/07/2018 Implants Device Identifier Shelf Expiration Date Model / Serial / Lot Implanted Type Area Manufactur er Bladder Sling Breast Implant-01/14/2009 Implanted: 01/14/2009 (Quantity not on file) Procedures Comments Procedure Name Priority Date/Time Associated Diagnosis ESTIMATED GFR STAT 08/06/2018 2:05 AM PRODUCTION REPAIRER COMPREHENSIVE METABOLIC STAT 08/06/2018 PANEL 2:05 AM PRODUCTION REPAIRER HC COMPLETE BLD COUNT STAT 08/06/2018 W/AUTO DIFF 2:05 AM PRODUCTION REPAIRER LACTIC ACID LEVEL STAT 08/06/2018 2:04 AM PRODUCTION REPAIRER BLOOD CULTURE, AEROBIC & Routine 08/06/2018 ANAEROBIC 12:38 AM PRODUCTION REPAIRER BLOOD CULTURE, AEROBIC & Routine 08/06/2018 ANAEROBIC 12:[address] ABDOMEN PELVIS WO Routine 08/05/2018 CONTRAST 6:33 PM PRODUCTION REPAIRER US DUPLEX VENOUS LOWER Routine 08/05/2018 EXTREMITY RIGHT 5:23 PM PRODUCTION REPAIRER ESTIMATED GFR Routine 08/04/2018 5:35 AM PRODUCTION REPAIRER COMPREHENSIVE METABOLIC Routine 08/04/2018 PANEL 5:35 AM PRODUCTION REPAIRER HC COMPLETE BLD COUNT Routine 08/04/2018 W/AUTO DIFF 5:35 AM PRODUCTION REPAIRER ALCOHOL LEVEL, BLOOD Routine 08/03/2018 12:30 AM PRODUCTION REPAIRER HCG QUALITATIVE, URINE STAT 08/02/2018 SCREEN 5:31 PM PRODUCTION REPAIRER URINALYSIS SCREEN AND STAT 08/02/2018 MICROSCOPY, WITH REFLEX 5:31 PM PRODUCTION REPAIRER TO CULTURE BILIRUBIN DIRECT STAT 08/02/2018 4:54 PM PRODUCTION REPAIRER COMPREHENSIVE METABOLIC STAT 08/02/2018 PANEL 4:54 PM PRODUCTION REPAIRER ESTIMATED GFR STAT 08/02/2018 4:54 PM PRODUCTION REPAIRER TROPONIN STAT 08/02/2018 4:54 PM PRODUCTION REPAIRER LIPASE LEVEL STAT 08/02/2018 4:54 PM PRODUCTION REPAIRER HC COMPLETE BLD COUNT STAT 08/02/2018 W/AUTO DIFF 4:54 PM PRODUCTION REPAIRER ECG ED PRELIMINARY Routine 08/02/2018 INTERPRETATION 4:07 PM PRODUCTION REPAIRER ECG 12-LEAD STAT 08/02/2018 3:49 PM PRODUCTION REPAIRER NM LUNG VENTILATION STAT 07/26/2018 PERFUSION 2:50 PM PRODUCTION REPAIRER TROPONIN Routine 07/26/2018 10:21 AM PRODUCTION REPAIRER HC COMPLETE BLD COUNT Routine 07/26/2018 W/AUTO DIFF 7:46 AM PRODUCTION REPAIRER ESTIMATED GFR Routine 07/26/2018 4:00 AM PRODUCTION REPAIRER BASIC METABOLIC PANEL Routine 07/26/2018 4:00 AM PRODUCTION REPAIRER TROPONIN Timed 07/25/2018 11:16 PM PRODUCTION REPAIRER LACTIC ACID LEVEL, SEPSIS Timed 07/25/2018 - NOW AND REPEAT 2X EVERY 11:16 PM PRODUCTION REPAIRER 3 HOURS LIPASE LEVEL Routine 07/25/2018 9:43 PM PRODUCTION REPAIRER GRAM STAIN STAT 07/25/2018 7:10 PM PRODUCTION REPAIRER URINE CULTURE STAT 07/25/2018 7:10 PM PRODUCTION REPAIRER ARTERIAL BLOOD GAS STAT 07/25/2018 6:46 PM PRODUCTION REPAIRER XR CHEST 1 VW PORTABLE STAT 07/25/2018 6:33 PM PRODUCTION REPAIRER XR NECK SOFT TISSUE STAT 07/25/2018 6:33 PM PRODUCTION REPAIRER ESTIMATED GFR STAT 07/25/2018 6:13 PM PRODUCTION REPAIRER URINALYSIS SCREEN AND STAT 07/25/2018 MICROSCOPY, WITH REFLEX 6:13 PM PRODUCTION REPAIRER TO CULTURE B NATRIURETIC PEPTIDE STAT 07/25/2018 6:13 PM PRODUCTION REPAIRER TROPONIN STAT 07/25/2018 6:13 PM PRODUCTION REPAIRER LACTIC ACID LEVEL, SEPSIS STAT 07/25/2018 - NOW AND REPEAT 2X EVERY 6:13 PM PRODUCTION REPAIRER 3 HOURS COMPREHENSIVE METABOLIC STAT 07/25/2018 PANEL 6:13 PM PRODUCTION REPAIRER PARTIAL THROMBOPLASTIN STAT 07/25/2018 TIME (PTT) 6:13 PM PRODUCTION REPAIRER PROTHROMBIN TIME WITH INR STAT 07/25/2018 6:13 PM PRODUCTION REPAIRER HC COMPLETE BLD COUNT STAT 07/25/2018 W/AUTO DIFF 6:13 PM PRODUCTION REPAIRER ECG ED PRELIMINARY Routine 07/25/2018 INTERPRETATION 5:13 PM PRODUCTION REPAIRER KS CRITICAL CARE, E/M Routine 07/25/2018 30-74 MINUTES 5:13 PM PRODUCTION REPAIRER ECG 12-LEAD STAT 07/25/2018 4:59 PM PRODUCTION REPAIRER ECG 12-LEAD Routine 07/25/2018 4:[address] ABDOMEN PELVIS WO STAT 12/08/2017 CONTRAST [...] URINE CULTURE STAT 10/14/2017 11:20 AM CDT after 09/26/2017 Results * Estimated GFR (08/06/2018 2:05 AM PRODUCTION REPAIRER) Only the most recent of 5 results within the time period is included. Estimated GFR >=90 mL/min/1.73 m2 TIMO [facility]OROASTRIAN Comment: [facility] CatergoryUnitsInte rpretation G1 >=90 Normal or high G2 60-89Mildly decreased [id number] Mildly to moderately decreased [id number] Moderately to severely decreased G4 15-29Severely decreased G5 <15Kidney failure The eGFR was calculated using the Chronic Kidney Disease Epidemiology Collaboration (CKD-EPI) equation. Interpretation is based on recommendations of the National Kidney Foundation-Kidney Disease Outcomes Quality Initiative (NKF-KDOQI) published in 2014. Specimen Plasma specimen Performing Organization Address City/State/Zipcode Phone Number [facility] DEPARTMENT OF [address] [place] [address] PATHOLOGY AND GENOMIC MEDICINE [place] [id number] [address] * CBC with platelet and differential (08/06/2018 2:05 AM PRODUCTION REPAIRER) Only the most recent of 7 results within the time period is included. WBC 11.0 4.2 - 11.0 k/uL [facility] RBC 3.74 (L) 4.04 - 5.86 m/uL [facility] HGB 10.1 (L) 11.5 - 15.3 g/dL [facility] HCT 30.9 (L) 34.0 - 45.0 % [facility] MCV 82.6 80.0 - 98.0 fL [facility] MCH 27.0 27.0 - 34.0 pg [facility] MCHC 32.7 31.5 - 36.5 g/dL [facility] RDW - SD 42.6 37.0 - 51.0 fL [facility] MPV 9.8 7.4 - 10.4 fL [facility] Platelet count 211 150 - 400 k/uL [facility] Nucleated RBC 0.00 /100 WBC [facility] Neutrophils 78.6 (H) 36.0 - 66.0 % [facility] Lymphocytes 12.6 (L) 24.0 - 44.0 % [facility] Monocytes 6.0 0.0 - 6.0 % [facility] Eosinophils 2.3 0.0 - 6.0 % [facility] Basophils 0.2 0.0 - 1.2 % [facility] Immature granulocytes 0.3 0.0 - 1.0 % [facility] Specimen Blood Performing Organization Address City/[facility]/Zipcode Phone Number [facility] DEPARTMENT OF [address] [place] [address] PATHOLOGY AND GENOMIC MEDICINE [place] [address] [address] * Comprehensive metabolic panel (08/06/2018 2:05 AM PRODUCTION REPAIRER) Only the most recent of 6 results within the time period is included. Sodium 140 135 - 150 mEq/L [facility] Potassium 3.7 3.5 - 5.0 mEq/L [facility] Chloride 105 98 - 112 mEq/L [facility] CO2 22 (L) 24 - 31 mmol/L [facility] Anion gap 13@ANIO 7 - 15 mEq/L [facility] BUN <4 (L) 7 - 18 mg/dL [facility] Creatinine 0.60 0.50 - 0.90 mg/dL [facility] Glucose 149 (H) 65 - 100 mg/dL [facility] Calcium 9.0 8.3 - 10.2 mg/dL [facility] Protein 7.2 6.3 - 8.3 g/dL [facility] Albumin 3.7 3.5 - 5.0 g/dL [facility] A/G ratio 1.1 0.7 - 3.8 [facility] Alkaline phosphatase 142 (H) 0 - 104 U/L [facility] AST 55 (H) 10 - 35 U/L [facility] ALT 80 (H) 5 - 50 U/L [facility] Total bilirubin <0.3 0.2 - 1.2 mg/dL [facility] Specimen Plasma specimen Performing Organization Address City/[facility] Phone Number [facility] DEPARTMENT OF [address] [facility] [place] [address] PATHOLOGY AND GENOMIC MEDICINE [facility] [address] * Lactic acid level (08/06/2018 2:04 AM PRODUCTION REPAIRER) Lactic acid 2.3 (H) 0.5 - 2.2 mmol/L [facility] Specimen Blood Performing Organization Address City/State/Zipcode Phone Number [facility] DEPARTMENT OF [address] [place] [address] PATHOLOGY AND GENOMIC MEDICINE [facility] [address] * Blood culture, aerobic & anaerobic (08/06/2018 12:38 AM PRODUCTION REPAIRER) Only the most recent of 2 results within the time period is included. Blood culture isolate No growth after 5 days of [facility] incubation. HOSPITAL Comment: Specimen Information Specimen Source: Blood Specimen Site: LINE Specimen Blood Performing Organization Address City/[facility]/Zipcode Phone Number [facility] DEPARTMENT OF [address] [place] [address] PATHOLOGY AND GENOMIC MEDICINE [address] * CT Abdomen Pelvis Wo Contrast (08/05/2018 6:33 PM PRODUCTION REPAIRER) Only the most recent of 2 results within the time period is included. Narrative Performed At EXAMINATION:CT ABDOMEN PELVIS WO CONTRAST [facility] CLINICAL HISTORY:Flank painrecurrent stone disease suspected TECHNIQUE:Multiple axial images of the abdomen and pelvis were obtained without intravenous administration of iodinated contrast. Sagittal and coronal computerized reformatted images were also obtained. The lack of intravenous contrast reduces the sensitivity of detecting solid organ disease. Scan was performed using radiation dose reduction techniques. COMPARISON:December 08, 2017 FINDINGS: Minimal atelectasis or pneumonitis in the basilar left lower lobe. Multiple small nonobstructing stones in both kidneys measuring up to approximately 3-4 mm. No obstructing stone, hydronephrosis, or perinephric stranding. The liver is fatty. Gallbladder is absent. There is severe atrophy of the pancreatic body and tail. No signs of bowel obstruction or inflammation. No free fluid or free air. Status post hysterectomy. IMPRESSION: Bilateral nephrolithiasis. No obstructing stone or hydronephrosis. Fatty liver. Marked pancreatic atrophy. [facility]-[id number] Procedure Note Interface, Radiology Results Incoming - 08/05/2018 6:40 PM PRODUCTION REPAIRER EXAMINATION: CT ABDOMEN PELVIS WO CONTRAST CLINICAL HISTORY: Flank pain recurrent stone disease suspected TECHNIQUE: Multiple axial images of the abdomen and pelvis were obtained without intravenous administration of iodinated contrast. Sagittal and coronal computerized reformatted images were also obtained. The lack of intravenous contrast reduces the sensitivity of detecting solid organ disease. Scan was performed using radiation dose reduction techniques. COMPARISON: December 08, 2017 FINDINGS: Minimal atelectasis or pneumonitis in the basilar left lower lobe. Multiple small nonobstructing stones in both kidneys measuring up to approximately 3-4 mm. No obstructing stone, hydronephrosis, or perinephric stranding. The liver is fatty. Gallbladder is absent. There is severe atrophy of the pancreatic body and tail. No signs of bowel obstruction or inflammation. No free fluid or free air. Status post hysterectomy. IMPRESSION: Bilateral nephrolithiasis. No obstructing stone or hydronephrosis. Fatty liver. Marked pancreatic atrophy. [facility]-[id number] Performing Organization Address City/State/Zipcode Phone Number [facility] [address] [place] [address] * Us duplex venous lower extremity (08/05/2018 5:23 PM PRODUCTION REPAIRER) Narrative Performed At EXAMINATION:US DUPLEX VENOUS LOWER EXTREMITY RIGHT [facility] CLINICAL HISTORY: 37 years 1980 Leg swelling or painDVT suspected COMPARISON:None. TECHNIQUE:Grayscale, color Doppler and spectral waveform analysis of the right lower extremity deep venous system. FINDINGS: The right common femoral, femoral, deep femoral, and popliteal veins are compressible. They demonstrate venous waveforms and response to augmentation. Flow is identified within the visualized deep veins of the right calf. Flow is identified within the right great saphenous vein. Flow was also documented in the left common femoral vein. IMPRESSION: No evidence of deep venous thrombosis in the right lower extremity. [facility]-[id number] Procedure Note Interface, Radiology Results Incoming - 08/05/2018 5:32 PM PRODUCTION REPAIRER EXAMINATION: US DUPLEX VENOUS LOWER EXTREMITY RIGHT CLINICAL HISTORY: 37 years 1980 Leg swelling or pain DVT suspected COMPARISON: None. TECHNIQUE: Grayscale, color Doppler and spectral waveform analysis of the right lower extremity deep venous system. FINDINGS: The right common femoral, femoral, deep femoral, and popliteal veins are compressible. They demonstrate venous waveforms and response to augmentation. Flow is identified within the visualized deep veins of the right calf. Flow is identified within the right great saphenous vein. Flow was also documented in the left common femoral vein. IMPRESSION: No evidence of deep venous thrombosis in the right lower extremity. [facility]-[id number] Performing Organization Address City/[facility]/Zipcode Phone Number [facility] [address] [place] [address] * Alcohol level, blood (08/03/2018 12:30 AM PRODUCTION REPAIRER) Alcohol None Detected mg/dL [facility] Comment: [facility] Normal None Detected Legal Intoxication in [place] 80 mg/dL (0.08%) Toxic Concentration 200 mg/dL (0.2%) Potentially Fatal 350-500 mg/dL (0.35%-0.5%) Alcohol percent None Detected % [facility] Specimen Blood Performing Organization Address City/[facility] Centerbcode Phone Number [facility] DE[facility] OF [address] [place] [address] PATHOLOGY AND GENOMIC MEDICINE [address] * Urinalysis screen and microscopy, with reflex to culture (08/02/2018 5:31 PM PRODUCTION REPAIRER) Only the most recent of 4 results within the time period is included. Specimen site Clean catch [facility] Color, UA Yellow [facility] Appearance, UA Clear [facility] Specific gravity, UA 1.026 1.001 - 1.035 [facility] pH, UA 5.0 5.0 - 8.5 [facility] Protein, UA Negative Negative [facility] Glucose, UA Negative Negative [facility] Ketones, UA Negative Negative [facility] Bilirubin, UA Negative Negative [facility] Blood, UA Negative Negative [facility] Nitrite, UA Negative Negative [facility] Urobilinogen, UA Negative <2.0 [facility] Leukocyte esterase, UA Negative Negative [facility] Epithelial cells, UA Many /HPF [facility] WBC, UA 2 0 - 5 /HPF [facility] RBC, UA 3 0 - 5 /HPF [facility] Bacteria, UA Trace None seen [facility] Yeast, UA None seen [facility] Yeast with pseudohyphae, None seen [facility] Specimen Urine Performing Organization Address City/[facility] Centerbcode Phone Number [facility] DEPARTMENT [address] [place] [address] PATHOLOGY AND GENOMIC MEDICINE [address] * hCG qualitative, urine screen (08/02/2018 5:31 PM PRODUCTION REPAIRER) hCG qualitative, urine Negative Negative [facility] Comment: [facility] The manufacturers stated sensitivity of HcG test for serum is >/=10 mIU/ml and urine is >/=20mIU/ml. Specimen Urine Performing Organization Address [facility] [place] [address] PATHOLOGY AND GENOMIC MEDICINE [address] * Troponin (08/02/2018 4:54 PM PRODUCTION REPAIRER) Only the most recent of 4 results within the time period is included. Troponin <0.30 0.00 - 0.30 ng/mL [facility] Comment: [facility] 0.11 - 1.49 ng/mlMay indicate increased risk of acute coronary syndrome. >=1.5 ng/ml Consistent with acute myocardial infarction. The diagnostic value of a single normal or non-diagnostic result is questionable.Serial samples at 2-6 hour intervals are required to rule out acute myocardial injury. Specimen Plasma specimen Performing Organization Address City/[facility] Center[facility] Phone Number [facility] [address] [place] [address] PATHOLOGY AND GENOMIC MEDICINE [address] * Lipase level (08/02/2018 4:54 PM PRODUCTION REPAIRER) Only the most recent of 4 results within the time period is included. Lipase 31 13 - 60 U/L [facility] Specimen Plasma specimen Performing Organization Address City/[facility]/Zipcode Phone Number [facility] DEPARTMENT OF [address] [place] [address] PATHOLOGY AND GENOMIC MEDICINE [facility] Arun Almeida [address] * Bilirubin direct (08/02/2018 4:54 PM PRODUCTION REPAIRER) Bilirubin direct <0.2 0.0 - 0.4 mg/dL [facility] Specimen Plasma specimen Performing Organization Address City/[facility] Centerbcode Phone Number [facility] DEPARTMENT OF [address] [place] [id number] PATHOLOGY AND GENOMIC MEDICINE [place] [address] [facility] [address] * ECG ED Preliminary Interpretation - Not an Order (08/02/2018 4:07 PM PRODUCTION REPAIRER) Only the most recent of 2 results within the time period is included. Narrative Performed At Douglas Reddy MD 08/07/2018 12:48 AM ECG ED Preliminary Interpretation - Not an Order Performed by: Douglas Reddy MD Authorized by: Douglas Reddy MD ECG reviewed by ED Physician in the absence of a culturist: yes Interpretation: Interpretation: normal Rate: ECG rate:84 ECG rate assessment: normal Rhythm: Rhythm: sinus rhythm Ectopy: Ectopy: none QRS: QRS axis:Normal QRS intervals:Normal Conduction: Conduction: normal ST segments: ST segments:Normal T waves: T waves: normal * ECG 12 lead (08/02/2018 3:49 PM PRODUCTION REPAIRER) Only the most recent of 3 results within the time period is included. Ventricular rate 84 [facility] Atrial rate 84 [facility] KS interval 146 [facility] QRSD interval 70 [facility] QT interval 356 [facility] QTC interval 420 [facility] P axis 1 58 [facility] QRS axis 1 68 [facility] T wave axis 54 [facility] EKG impression Normal sinus rhythm-Normal [facility] ECG-In automated comparison with ECG of 25-JUL-2018 16:59,-No significant change was found- Narrative Performed At Performing Organization Address [facility] Centerbcode Phone Number [facility] [address] [place] [address] * NM Lung Ventilation Perfusion (07/26/2018 2:50 PM PRODUCTION REPAIRER) Narrative Performed At PROCEDURE:NM LUNG VENTILATION PERFUSION [facility] INDICATION:PE suspected. COMPARISON:Chest x-ray dated 07/25/2018. TECHNIQUE:Planar [...] lung. IMPRESSION: 1.Very low probability for PE. [facility]-[id number] Procedure Note Interface, Radiology Results Incoming - 07/26/2018 3:45 PM PRODUCTION REPAIRER PROCEDURE: NM LUNG VENTILATION PERFUSION INDICATION: PE [...] IMPRESSION: 1. Very low probability for PE. [facility]-[id number] Performing Organization Address City/[facility]/Zipcode Phone Number [facility] [address] [place] [address] * Basic metabolic panel (07/26/2018 4:00 AM PRODUCTION REPAIRER) Sodium 142 135 - 148 mEq/L [facility] Potassium 4.0 3.5 - 5.0 mEq/L [facility] Chloride 110 98 - 112 mEq/L [facility] CO2 20 (L) 24 - 31 mEq/L [facility] Anion gap 12@ANIO 7 - 15 mEq/L [facility] BUN 15 6 - 20 mg/dL [facility] Creatinine 0.69 0.50 - 0.90 mg/dL [facility] Glucose 130 (H) 65 - 99 mg/dL [facility] Calcium 9.1 8.3 - 10.2 mg/dL [facility] Specimen Plasma specimen Performing Organization Address [facility] Phone Number [facility] [place] [address] PATHOLOGY AND GENOMIC MEDICINE [address] * Lactic acid level, SEPSIS - Now and repeat 2x every 3 hours (07/25/2018 11:16 PM PRODUCTION REPAIRER) Only the most recent of 2 results within the time period is included. Lactic acid 1.9 0.5 - 2.2 mmol/L [facility] Specimen Blood Performing Organization Address [facility] Phone Number [facility] [place] [address] PATHOLOGY AND GENOMIC MEDICINE [address] * Gram stain (07/25/2018 7:10 PM PRODUCTION REPAIRER) Only the most recent of 3 results within the time period is included. Gram stain result No WBC's [facility] Gram negative rods [facility] Moderate Gram positive rods Comment: Specimen Information Specimen Source: Urine Specimen Site: Clean catch Specimen Urine Performing Organization Address [facility] Phone Number [facility] [place] [address] PATHOLOGY AND GENOMIC MEDICINE [address] * Urine culture (07/25/2018 7:10 PM PRODUCTION REPAIRER) Only the most recent of 3 results within the time period is included. Urine culture isolate Mixed rachele 10-4 col/cc [facility] Comment: HOSPITAL Specimen Information Specimen Source: Urine Specimen Site: Clean catch Specimen Urine Performing Organization Address City/[facility] Phone Number [facility] [place] [address] PATHOLOGY AND GENOMIC MEDICINE [address] * Arterial blood gas (07/25/2018 6:46 PM PRODUCTION REPAIRER) pH, arterial 7.38 7.35 - 7.45 [facility] pCO2, arterial 31 (L) 35 - 45 mmHg [facility] pO2, arterial 106 (H) 80 - 90 mmHg [facility] Bicarbonate, arterial 18.2 (L) 21.0 - 28.0 mmol/L [facility] Base excess, arterial -6 (L) -2 - 2 mEq/L [facility] O2 saturation, arterial 99 95 - 100 % [facility] Specimen Blood Performing Organization Address [facility] Phone Number [facility] DEPARTMENT OF [address] [place] [address] PATHOLOGY AND GENOMIC MEDICINE [id number] [place] [address] * XR Chest 1 Vw Portable (07/25/2018 6:33 PM PRODUCTION REPAIRER) Narrative Performed At EXAMINATION:XR CHEST 1 VW PORTABLE [facility] CLINICAL HISTORY:Shortness of breath XR CHEST 1 VW PORTABLEimages are submitted COMPARISON:07/18/2016 FINDINGS: The cardiac silhouette is normal in size. The pulmonary vasculature is within normal limits. The lung zones have no focal area of consolidation. There is no pleural effusion or pneumothorax. The chest port has the tip in the superior vena cava. IMPRESSION: 1. There is no acute cardiopulmonary disease. [id number] Procedure Note Interface, Radiology Results Incoming - 07/25/2018 6:52 PM PRODUCTION REPAIRER EXAMINATION: XR CHEST 1 VW PORTABLE CLINICAL [...] 1. There is no acute cardiopulmonary disease. [id number] Performing Organization Address City/[facility]/Zipcode Phone Number [facility] [address] [place] [address] * XR Neck Soft Tissue (07/25/2018 6:33 PM PRODUCTION REPAIRER) Narrative Performed At EXAMINATION: XR NECK SOFT TISSUE [facility] CLINICAL HISTORY: sob feels like throat is swelling COMPARISON:None IMPRESSION: Suspected artifact projecting over the right aspect of the larynx at the level of the glottis on the AP view. Otherwise unremarkable radiographic appearance of the cervical aerodigestive tract. Right chest wall port with catheter tip in the mid to upper SVC. [id number] Procedure Note Interface, Radiology Results Incoming - 07/25/2018 6:41 PM PRODUCTION REPAIRER EXAMINATION: XR NECK SOFT TISSUE CLINICAL HISTORY: sob feels like throat is swelling COMPARISON: None IMPRESSION: Suspected artifact projecting over the right aspect of the larynx at the level of the glottis on the AP view. Otherwise unremarkable radiographic appearance of the cervical aerodigestive tract. Right chest wall port with catheter tip in the mid to upper SVC. [id number] Performing Organization Address [facility] [place] [address] * Partial thromboplastin time, activated (07/25/2018 6:13 PM PRODUCTION REPAIRER) PTT 28.8 23.0 - 36.0 sec [facility] Comment: HOSPITAL PTT therapeutic range for unfractionated heparin is 61.0-112.0 seconds which corresponds to Anti-Xa 0.3-0.7 U/ml. Specimen Blood Performing Organization Address [facility] Phone Number [facility] [place] [place] [address] PATHOLOGY AND [facility] MEDICINE [address] * Prothrombin time with INR (07/25/2018 6:13 PM PRODUCTION REPAIRER) Prothrombin time 13.9 11.5 - 14.5 sec [facility] INR 1.1 [facility] Comment: HOSPITAL The International Normalized Ratio (INR) is a therapeutic monitoring tool for patients who are stable on oral anticoagulant therapy. An INR of 2.0-3.0 is suggested for deep vein thrombosis/pulmonary embolism. Specimen Blood Performing Organization Address [facility] Phone Number [facility] [place] [address] PATHOLOGY AND GENOMIC MEDICINE [address] * B natriuretic peptide (07/25/2018 6:13 PM PRODUCTION REPAIRER) BNP 6 0 - 100 pg/mL [facility] Specimen Blood Performing Organization Address [facility] Phone Number [facility] [place] [address] PATHOLOGY AND GENOMIC MEDICINE [address] * CRITICAL CARE (07/25/2018 5:13 PM PRODUCTION REPAIRER) Narrative Performed At Cristiano Cardona MD 07/26/20188:05 [...] condition and review of old charts * Estimated GFR (12/08/2017 9:12 PM CDT) Only the most recent of 2 results within the time period is included. GFR Non Af Amer >90 mL/min/1.73 m2 [facility] DEPARTMENT OF PATHOLOGY AND GENOMIC MEDICINE GFR Af Amer >90 mL/min/1.73 m2 [facility] DEPARTMENT OF Comment: PATHOLOGY AND Chronic [...] specimen Performing Organization Address City/State/Zipcode Phone Number [facility] DEPARTMENT OF [address] [place] [address] PATHOLOGY AND [employer] MEDICINE * hCG qualitative, serum screen (12/08/2017 9:12 PM CDT) hCG qualitative, serum NegativeComment: Sensitivity [facility] DEPARTMENT OF of HCG test: 25 mIU/mL PATHOLOGY AND GENOMIC MEDICINE Specimen Blood Performing Organization Address City/[facility]/Zipcode Phone Number [facility] DEPARTMENT OF [address] [place] [address] PATHOLOGY AND GENOMIC MEDICINE * Amylase level (10/14/2017 11:37 AM CDT) Amylase 45 13 - 73 U/L [facility] DEPARTMENT OF PATHOLOGY AND GENOMIC MEDICINE Specimen Plasma specimen Performing Organization Address City/State/Zipcode Phone Number [facility] [place] [address] [place] [address] PATHOLOGY AND GENOMIC MEDICINE after 09/26/2017 Insurance Payer Benefit Subscriber ID Type Phone Address Plan / Group [employer] xxxxxxxxx HMO/PPO THCARE CHOICE/CHO ICE + Advance Directives Patient has advance care planning documents, and code status on file. For more i nformation, please contact: Timo Anne [address] [place] [address] Date Inactivated Comments Code Status Date Activated 01/15/2017 4:57 AM Full Code 01/14/2017 1:34 PM Code Status decision reached by: Patient
--- OUTSIDE RECORDS SUMMARY | 2018-09-27 12:58 | XMS REPORT | Continuity of Care Document ---
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 08/31/2016 Rosaura Reid Pyridium 1 tablet after meals Orally Active 200 MG Orally Three times a day [facility] 08/12/2016 Rosaura Riveratnm Zyvox 1 tablet Orally Active 600 MG Orally every 12 hrs [facility] 07/13/2016 Rosaura Quintana Acetaminophen-Codeine #3 1 tablet as needed Orally Active 300- 30 MG Orally every 6 hrs [facility] 06/15/2016 Rosaura Quintana Promethazine HCl 1 tablet as needed Orally Active 12.5 MG Orally every 6 hrs [facility] 06/15/2016 [facility] Carvedilol 1 tablet Orally Active 12.5 MG Orally twice a day [facility] Alprazolam 1/2 half tablet Orally Active 1 MG Orally Twice a day [facility] Jessica [facility] Levaquin 1 tablet Orally Active 500 MG Orally Once a day [facility] Potassium Citrate ER not defined Orally Active 10 MEQ (1080 MG) Orally twice a day [facility] Bactrim 2 tablets Orally Active 400-80 MG Orally Once a day [facility] Pyridium 1 tablet after meals Orally Active 200 MG Orally Three times a day [facility] Rosaura Quintana Allergies, Adverse Reactions, Alerts [...] Source Rosaura Reid MD, PA Sick Visit [id number] 06/15/2016 06/15/2016 Rosaura Reid MD, PA Sick Visit [id number] 06/15/2016 06/15/2016 Rosaura Reid MD, PA Sick Visit [id number] 06/15/2016 06/15/2016 Rosaura Reid MD, PA Sick Visit [id number] 06/15/2016 06/15/2016 Rosaura Reid MD, PA Sick Visit [id number] 06/15/2016 06/15/2016 Rosaura Reid MD, PA d/c from hospital pt needed refill dr neha correa [id number] 07/13/2016 07/13/2016 Rosaura Reid MD, PA d/c from hospital pt needed refill dr neha correa [id number] 07/13/2016 07/13/2016 Rosaura Reid MD, PA d/c from hospital pt needed refill dr neha correa [id number] 07/13/2016 07/13/2016 Rosaura Reid MD, PA d/c from hospital pt needed refill dr neha correa [id number] 07/13/2016 07/13/2016 Rosaura Reid MD, PA Sick Visit [id number] 08/05/2016 08/05/2016 Rosaura Reid MD, PA Sick Visit [id number] 08/05/2016 08/05/2016 Rosaura Reid MD, PA Sick Visit [id number] 08/05/2016 08/05/2016 Rosaura Reid MD, PA Sick Visit [id number] 08/31/2016 08/31/2016 Rosaura Reid MD, PA Sick Visit [id number] 08/31/2016 08/31/2016 Rosaura Reid MD, PA kidney stones [id number] 09/02/2016 09/02/2016 Rosaura Reid Procedures Procedure Code Date Perfomer Comments Source
[2018-09-27] MEDS ORDERED: SODIUM CHLORIDE 0.9% 1000ML 1,000 ML IV STA (13:08)
[2018-09-27] MEDS ORDERED: HYOSCYAMINE SULFATE 0.5 MG/ML INJ IV ONE (13:15)
[2018-09-27] MEDS ORDERED: PROMETHAZINE 12.5MG/ NACL 0.9% 12.5 MG/50 ML BAG IV ONE (13:15)
[2018-09-27 15:16] LABS: BILIRUBIN,URINE NEGATIVE (NEGATIVE); CLARITY,URINE SL CLOUDY (CLEAR); COLOR,URINE YELLOW (YELLOW); KETONES,URINE NEGATIVE (NEGATIVE); LEUKOCYTE ESTERASE ,URINE NEGATIVE (NEGATIVE); NITRITE,URINE NEGATIVE (NEGATIVE); PROTEIN,URINE DIPSTICK NEGATIVE (NEGATIVE); URINE UROBILINOGEN 0.2 mg/dL (0.2 - 1)
[2018-09-27 15:17] LABS: PREGNANCY TEST, URINE NEGATIVE (NEGATIVE)
[2018-09-27 15:23] LABS: BACTERIA,URINE MANY /HPF; EPITHELIAL CELLS,URINE MODERATE /LPF; RBC,URINE 0-5 /HPF (0-5); RENAL EPITHELIAL CELLS,URINE FEW
[2018-09-27 17:17] LABS: BASOPHILS % 0.2 % (0.0-1.0); EOSINOPHILS # (AUTO) 0.2 (0.0-0.4); EOSINOPHILS % 3.2 % (0.0-6.0); HEMATOCRIT 34.2 % (34.2-44.1); HEMOGLOBIN 10.9 g/dL (12.0-16.0); LYMPHOCYTES # (AUTO) 1.5 (1.0-3.2); LYMPHOCYTES % 30.3 % (18.0-39.1); MEAN CORPUSCULAR HGB CONC 31.9 g/dL (31-35); MEAN CORPUSCULAR VOLUME 84.7 fL (81-99); MONOCYTES # (AUTO) 0.3 (0.2-0.8); MONOCYTES % 6.6 % (4.4-11.3); NEUTROPHILS % 59.3 % (38.7-80.0); PLATELET COUNT 251 x10e3/uL (140-360); RED BLOOD COUNT 4.04 x10e6/uL (3.6-5.1); RED CELL DISTRIBUTION WIDTH 16.3 % (11.7-14.4)
[2018-09-27 17:37] LABS: ALANINE AMINOTRANSFERASE 81 IU/L (0-55); ALKALINE PHOSPHATASE 150 IU/L (40-150); AMYLASE 34 U/L (25-125); ANION GAP 11.8 mmol/L (8-16); BLOOD UREA NITROGEN 10 mg/dL (7-26); BUN/CREATININE RATIO 13 (6-25); CALCIUM 9.9 mg/dL (8.4-10.2); CARBON DIOXIDE 23 mmol/L (22-29); CHLORIDE 104 mmol/L (98-107); CREATININE, SERUM 0.77 mg/dL (0.57-1.11); EST GLOMERULAR FILTRATION RATE > 60 ML/MIN (60-); GLUCOSE 103 mg/dL (74-118); POTASSIUM 3.8 mmol/L (3.5-5.1); SODIUM 135 mmol/L (136-145)
[2018-09-27 17:40] LABS: LIPASE < 4 U/L (8-78)
--- NOTE | 2018-09-27 21:00 | NUR ---
Spoke with Florinda with [place] [employer] to report pt elopement with a raulito-cath left in place prior to recieving discharge instructions and prior to staff removing raulito-cath access.
== END 2018-09-27 21:00 | disposition home or self-care (01) ==
LOC: ER 12:52
DX: R10.32 Left lower quadrant pain (principal); R10.84 Generalized abdominal pain; R11.2 Nausea with vomiting, unspecified; R19.7 Diarrhea, unspecified
CPT/HCPCS: 36415; 80053; 81001; 81025; 82150; 83605; 83690; 83735; 85025; 99283; J1642

== ENCOUNTER 2019-05-21 17:13 | Emergency (ER) | payer OTHER ==
[~2019-05-21] VITALS: Ht 152.4 cm; Wt 67.1 kg
[2019-05-21] MEDS ORDERED: SODIUM CHLORIDE 0.9% 1000ML 1,000 ML IV STA (17:18)
--- OUTSIDE RECORDS SUMMARY | 2019-05-21 17:22 | XMS REPORT ---
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 EVERETT Unavailable Unavailable SWEET, A LAIRD Unavailable Unavailable VINNY, ARIF Unavailable Unavailable MANEEVESE, V YONATAN Unavailable Unavailable JAK HALEY Unavailable Unavailable RODDY MALAVE Unavailable Unavailable JAK JACKMAN Unavailable Unavailable HARVEYCHELSIE Unavailable Unavailable MORRISSEYELKE PLAZA Unavailable Unavailable AMELIE NERI Unavailable Unavailable SHONA, Choco GARRISON Unavailable Unavailable Lizbet CALDWELL Unavailable Unavailable CARLOTA SCHWARTZ Unavailable Unavailable AL HYDE Unavailable Unavailable JC TITUS Unavailable Unavailable EMANUEL COPE Unavailable Unavailable Problems This patient has no known problems. Allergies, Adverse Reactions, Alerts This patient has no known allergies or adverse reactions. Medications This patient has no known medications. Encounters Start Date/Time End Date/Time Encounter Type Admission Type Attending [facility] Care Department Encounter ID 2019-03-22 19:36:00 2019-03-22 15:38:00 Inpatient E [facility] [id number] 2018-11-17 22:24:00 2018-11-17 22:24:00 Emergency E [facility] [id number] 2017-09-27 13:40:00 2017-09-27 13:40:00 Emergency E [facility] [id number] 2017-09-27 03:56:00 2017-09-27 03:56:00 Emergency E [facility] [id number] 2017-09-12 14:35:00 2017-09-12 14:35:00 Outpatient EMANUEL HUBBARD M.D. 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 Technique: Multiplanar, multisequence images of the abdomen were obtained before and after the administration of 5.5 cc of gadolinium. 3D volum e rendered reformation images of the biliary tree were performed. Findings: Images are mildly motion degraded. Biliary tree: Minimal central intrahepatic biliary ductal distention without beading or narrowing. The common hepatic duct measures 3 mm in maximum diameter. The cystic duct is normal in morphology. The common bile duct measures 5 mm in diameter and comes to a tight taper at the ampulla. No intraluminal filling defects. Liver: Moderate steatosis. A high T2, low T1 signal lesion in segment 5 measures 4 mm and is stable. No evidence of enhancement. No enhancing lesions.Spleen: AbsentPancreas: Only the pancreas head and proximal body are visible and are normal in signal without mass. The pancreas duct in this region is normal. The remainder of the pancreas parenchyma is absent. Kidneys: No hydronephrosis or cortical mass Adrenal glands: No mass Lymph nodes: The soft tissue adjacent to the common hepatic artery and portal vein on the August MRI is not visible on this exam, possibly due to motion artifact. There are no enlarged lymph nodes. Bowel: The stomach and visualized portions of the small bowel and large bowel are normal in diameter with normal wall thickness. Vasculature: Patent and normal in morphology. Peritoneum/retroperitoneum: No free fluid or fluid collection. There is fat infarct just superior to the pancreas head measuring 2.3 x 2.2 cm. Lung bases: Clear. Bones: Normal marrow signal. No focal osseous lesions. Soft tissues: Bilateral breast prostheses. IMPRESSION: 1. Status post distal pancreatectomy and splenectomy without complication. Residual pancreas parenchyma is normal in morphology. No mass or lymphadenopathy to suggest tumor recurrence or metastasis.2. Moderate steatosis.3. Subcentimeter nonenhancing lesion in segment 5 of liver is stable and has MRI characteristics of a cyst. Thank you for your referral. Signed: Soni Ray MDReport Verified Date/Time: 01/02/2019 08:31:13 Reading Location: [facility] Room [address] [place] [address] , CHEST, WITH IV CONTRAST 2018-12-28 15:05:00 FINAL REPORT EXAM: CT Chest WITHOUT contrastINDICATION: Pancreatic malignancy C25.9 COMPARISON: None TECHNIQUE:Chest was scanned utilizing a multidetector helical scanner from the lung apex through the level of the adrenal glands without administration of IV contrast. Absence of intravenous contrast decreases sensitivity for detection of lymphadenopathy and vascular pathology. Coronal and sagittal reformations were obtained. Routine protocol was performed. IV CONTRAST: None COMPLICATIONS: None RADIATION DOSE: Total DLP: 225 mGy*cm Estimated effective dose: (DLP x 0.014 x size factor) mSv CTDIvol has been reviewed. It is below the limits set by the Radiation Protocol Committee (RPC).Dose modulation, iterative reconstruction, and/or weight based adjustment of the mA/kV was utilized to reduce the radiation dose to as low as reasonably achievable. FINDINGS: LINES/ TUBES: Right chest port with tip in the SVC. LUNGS AND AIRWAYS: The lungs are unremarkable. Airways are normal. PLEURA: The pleural spaces are clear. HEART AND MEDIASTINUM: The thyroid gland is normal. No mediastinal, hilar or axillary lymphadenopathy. The heart is normal in size. There is no pericardial effusion. UPPER ABDOMEN: Hepatic steatosis. Postsurgical change to the pancreatic region. Renal calculus. Refer to. BONES: The visualized bony thorax is within normal limits. SOFT TISSUES: Unremarkable. IMPRESSION: No pulmonary metastasis. Signed: Inna Viramontes MDReport Verified Date/Time: 12/28/2018 15:05:54 Reading Location: [facility] Room [address] [place] [address] D CULTURE 2018-10-28 02:00:00 CULTURE (BEAKER) (test gvok=3621) No growth in 5 days BLOOD [id number] 02:00:00* Test Item Value Reference Range Comments CULTURE (BEAKER) (test npxh=6479) No growth in 5 days TISSUE [id number] 15:36:00Surgical Pathology Report Case: [id number] Authorizing Provider: Denisse Buchanan II, MD Collected: 10/16/2018 1013 Ordering Location: [facility] PERIOPERATIVE Received: 10/16/2018 1451 SERVICES Pathologist: Hugo Quinteros MD Specimens: A) - Lymph Node, LEFT GASTRIC LYMPH NODES B) - Lymph Node, HEPATIC ARTERY LYMPH NODE C) - Lymph Node, Hepatic Artery Lymph Node #2 D) - Pancreas, Distal Pancreas and Spleen E) - Biopsy, Liver A. LYMPH NODE, LEFT GASTRIC, EXCISION- THREE BENIGN LYMPH NODES, NEGATIVE FOR METASTATIC CARCINOMA (0/3)B. LYMPH NODE, HEPATIC ARTERY, EXCISION- ONE BENIGN LYMPH NODE, NEGATIVE FOR METASTATIC CARCINOMA (0/1)C. LYMPH NODE, HEPATIC ARTERY #2, EXCISION- ONE BENIGN LYMPH NODE WITH AN EPITHELIOID GRANULOMA WITH NECROSIS, NEGATIVE FOR METASTATIC CARCINOMA (0/1)D. DISTAL PANCREAS AND SPLEEN, DISTAL PANCREATECTOMY AND SPLENECTOMY (s/p TONJA-ADJUVANT CHEMOTHERAPY)- MARKED CHRONIC PANCREATITIS WITH TREATMENT-RELATED CHANGES- NO RESIDUAL CARCINOMA SEEN - SURGICAL MARGIN WITH MARKED CHRONIC PANCREATITIS, AND NEGATIVE FOR TUMOR- SPLEEN WITH NO SIGNIFICANT DIAGNOSTIC ALTERATIONS- EIGHTEEN BENIGN LYMPH NODES, NEGATIVE FOR METASTATIC CARCINOMA (0/18)- AJCC PATHOLOGIC STAGE (8th EDITION): y p T0 N0- see commentE. LIVER, INTRAOPERATIVE NEEDLE BIOPSY- BORDERLINE FOR STEATOHEPATITIS- FIBROSIS STAGE 1A OF 4- see comment Signing Pathologist Direct Phone Line: [phone] signed by Hugo Quinteros MD on 10/24/2018 at 3:36 PMPreliminary result electronically signed by Hugo Quinteros MD on 10/22/2018 at 12:00 PMSpecimen D. The entire pancreas was submitted for histological evaluation and no tumor was seen. Specimen E. The non-alcoholic steatohepatitis activity scoring (SEGUNDO) is performed according to guidelines from non-alcoholic steatohepatitis, clinical research network (Kerrie, et al. Hepatology 2005. 41:1313-21), at the request of the clinician, for research related purposes, if applicable.The SEGUNDO score is: Steatosis: Grade 2 + lobular inflammation, grade 1 + hepatocyte ballooning score 1=/8. The fibrosis score is 1A of 4.PANCREAS (EXOCRINE) (Pancreas Exo - All Specimens)SPECIMEN Procedure: Subtotal di stal pancreatectomy TUMOR Tumor Site: Pancreatic body Histologic Type: Ductal adenocarcinoma Histologic Type Comments: Biopsy proven pancreat ic adenocarcinoma, [id number] (dated 11/07/2017), s/p neoadjuvant chemotherapy Histologic Grade: Not applicable Tumor Size: Cannot be determined: No r esidual tumor seen Tumor Extent: Tumor Extension: No evidence of p rimary tumor Accessory Findings: Treatment Effect: Present : No viable cancer cells (complete response, score 0) Lymphovascular Inv asion: Not identified Perineural Invasion: Not identified MARGINS M argins: Proximal Pancreatic Parenchymal Margin: Uninvolved by invasiv e carcinoma and pancreatic high-grade intraepithelial neoplasia LYMPH NODES Nu mber of Lymph Nodes Involved: 0 Number of Lymph Nodes Examined: 23 PATH OLOGIC STAGE CLASSIFICATION (pTNM, AJCC 8th Edition) TNM Descriptors: y (p ost-treatment) Primary Tumor (pT): pT0 Regional Lymph Nodes (pN): pN 0 ADDITIONAL FINDINGS Additional Pathologic Findings: Chronic pancreatitis 26821, 33299 x3, 88135, 45424 x4, 63352, 77477Hoylyktin neoplasm of pancreasA. L eft gastric lymph nodes; B. Hepatic artery lymph node; C. Hepatic artery lymph n ode #2; D. Distal pancreas and spleen; E. Liver biopsyThe specimen is received i n five containers all labeled with the patient's information and received withou t formalin. Part A labeled "left gastric lymph node" consists of adipose tissue measuring 2.5 x 2 x 1 cm yielding three lymph nodes measuring up to 1 cm. Sectio n code: A1, one lymph node bisected; A2, two lymph nodes.Part B labeled "hepatic artery lymph node" consists of a single bell-red lymph node measuring 0.8 cm, bi sected, submitted entirely B1. Part C labeled "hepatic artery lymph node #2" con sists of a bell-red lymph node measuring 1 x 0.5 x 0.6 cm. Cut surface shows a ye llow discolored area measuring 0.5 cm in greatest dimension. Lymph node is entir shayne submitted C1. Part D labeled "distal pancreas and spleen" consists of a dist al pancreatectomy with spleen measuring 14 x 8 x 4 cm and pancreatic tail measur ing 9.5 x 3 x 1 cm. Attached splenic fat measures 8 x 6 x 2 cm.Ink code: Posteri or pancreas-black, anterior pancreas-blue, pancreatic margin-red.The entire panc reas parenchyma has a discolored bell-pink gritty appearance that grossly appears to continue to the resection margin. The spleen is serially sectioned showing h omogeneous, red-brown, spongy cut surface. No masses are present. The adipose ti ssue is sectioned yielding seven bell-pink lymph nodes measuring up to 1 cm in gr eatest dimension.Section code: D1, resection margin en face; D2-D8, pancreas ant erior from distal to proximal; D9-D15, posterior pancreas distal to proximal; D1 6, three lymph nodes; D17, four lymph nodes; D18, D19, spleen. Pictures are take n. CG/ewPart E labeled "liver biopsy" consists of four bell core biopsies ranging in length from 0.3 to 1 cm, submitted entirely E1. CG/pl A-D. Microscopic exami nation is performed and the findings are incorporated in the diagnostic line. C. Immunostain for AE1/AE3 and CAM 5.2 is negative. AFB, Navi and GMS stains are n egative for micro-organisms. E Section shows multiple variably sized cores of li shae parenchyma with greater than 10 portal tracts and is adequate for evaluation . There is moderate steatosis, mixed small droplet and large droplet type, distr ibuted in a centrilobular distribution pattern, and involving about 40% of liver parenchyma. Rare ballooning degeneration is noted and there is rare focus of lo bular inflammation. No acidophil bodies are seen. No glycogenated nuclei are see n. The portal tracts are largely unremarkable with preserved and unremarkable bi le ducts. There is mild chronic nonspecific portal inflammation. Iron stain is n egative. No hyaline globules are seen on PAS with diastase stain. The trichrome stain shows mild focal perisinusoidal fibrosis. No portal/periportal fibrosis is seen.The interpretation of this case included the use of immunohistochemistry or special stains. Immunohistochemistry technical testing was performed at [facility], Pathology Laboratory where it was developed and its performance characteristics were determined. It has not been cleared or approved by the U.S. Food and Drug Administration. The FDA has determined that such flavia bruce or approval is not necessary. The test is used for clinical purposes. It s hould not be regarded as investigational or for research. This laboratory is cer tified under the Clinical Laboratory Improvement Amendments of 1988 (CLIA-88) as qualified to perform high complexity clinical laboratory testing.BLOOD CULTURE 2018-10-23 14:35:00* Test Item Value Reference Range Comments CULTURE (CATHYAKER) (test bxoy=7037) No growth in 5 days POCT-GLUCOSE [id number] 13:44:00* Test Item Value Reference Range Comments POC-GLUCOSE METER (BEAKER) (test caxl=0268) 172 mg/dL 70-110 TESTED AT [facility] [address] [place] [address] RESPIRATORY PANEL [id number] 13:15:00* Test Item Value Reference Range Comments HUMAN METAPNEUMOVIRUS (BEAKER) (test dtpg=5681) Not detected Not detected, Equivocal RHINOVIRUS (BEAKER) (test rtuc=1629) Not detected Not detected, Equivocal INFLUENZA A (BEAKER) (test lcmq=4606) Not detected Not detected, Equivocal INFLUENZA A (NO SUBTYPE) (test jglb=5181) Not detected, Equivocal INFLUENZA A SUBTYPE H1 (BEAKER) (test rhwj=7912) Not detected, Equivocal INFLUENZA A SUBTYPE H3 (BEAKER) (test huxk=7866) Not detected, Equivocal INFLUENZA A SUBTYPE H1-2009 (BEAKER) (test lvaz=6019) Not detected, Equivocal INFLUENZA B (BEAKER) (test frow=9223) Not detected Not detected, Equivocal RESPIRATORY SYNCYTIAL VIRUS (BEAKER) (test vkbo=4555) Not detected Not detected, Equivocal PARAINFLUENZA VIRUS 1 (BEAKER) (test immz=7157) Not detected Not detected, Equivocal PARAINFLUENZA VIRUS 2 (BEAKER) (test bbkx=9162) Not detected Not detected, Equivocal PARAINFLUENZA VIRUS 3 (BEAKER) (test aayv=9013) Not detected Not detected, Equivocal PARAINFLUENZA VIRUS 4 (BEAKER) (test dzeh=7818) Not detected Not detected, Equivocal ADENOVIRUS (BEAKER) (test lcyf=4008) Not detected Not detected, Equivocal CORONAVIRUS 229E (BEAKER) (test myay=8899) Not detected Not detected, Equivocal CORONAVIRUS HKU1 (BEAKER) (test zktx=1582) Not detected Not detected, Equivocal CORONAVIRUS NL63 (BEAKER) (test uoqu=5697) Not detected Not detected, Equivocal CORONAVIRUS OC43 (BEAKER) (test sfmu=0870) Not detected Not detected, Equivocal BORDETELLA PERTUSSIS (BEAKER) (test mkdx=2999) Not detected Not detected, Equivocal CHLAMYDOPHILA PNEUMONIAE (BEAKER) (test zkwf=1861) Not detected Not detected, Equivocal MYCOPLASMA PNEUMONIAE (BEAKER) (test buav=1975) Not detected Not detected, Equivocal Other viruses and bacteria not targeted by this PCR panel cannot be excluded; th erefore clinical correlation and follow up of serology, culture results, and oth er molecular studies is required. The results are not intended to be used as the sole means for clinical diagnosis or patient management decisions. This sample was tested at the [facility] Molecular Diagnostics Laboratory using the PLASTIQA rray Respiratory Panel. It is FDA cleared and has been verified and approved by the [facility] Diagnostics [facility] for clinical use on nasal swab specim ens. It is not FDA-cleared for use on bronchial wash/lavage samples. However, fo r this sample type, validation was performed and test characteristics were deter mined and approved, by [facility] for clinical use u nder the Clinical Laboratory Improvement Amendments (CLIA) of 1988 requirements. Therefore, FDA clearance is not required. This laboratory is CLIA-certified and [employer] ([employer])-accredited to perform high complexity t esting.URINALYSIS W/ REFLEX URINE [id number] 11:03:00* Test Item Value Reference Range Comments COLOR (BEAKER) (test rnnv=041) Yellow CLARITY (BEAKER) (test hwmc=924) Hazy SPECIFIC GRAVITY UA (BEAKER) (test mewb=304) 1.010 1.001-1.035 PH UA (BEAKER) (test zexy=687) 7.0 5.0-8.0 PROTEIN UA (BEAKER) (test cbzo=297) 10 mg/dL Negative GLUCOSE UA (BEAKER) (test mstr=230) Negative Negative KETONES UA (BEAKER) (test jvmt=083) Negative Negative BILIRUBIN UA (BEAKER) (test eiyn=757) Negative Negative BLOOD UA (BEAKER) (test xndx=631) Negative Negative NITRITE UA (BEAKER) (test llbj=807) Negative Negative LEUKOCYTE ESTERASE UA (BEAKER) (test qbds=780) Negative Negative UROBILINOGEN UA (BEAKER) (test oumv=998) 0.2 mg/dL 0.2-1.0 RBC UA (BEAKER) (test axqn=925) 1 /HPF WBC UA (BEAKER) (test rcwl=240) 1 /HPF BACTERIA (BEAKER) (test spko=372) Occasional MUCUS (BEAKER) (test rztn=8017) Rare SQUAMOUS EPITHELIAL (BEAKER) (test mobq=873) 2 /HPF SOURCE(BEAKER) (test odxd=5885) POCT-GLUCOSE [id number] 09:22:00* Test Item Value Reference Range Comments POC-GLUCOSE METER (BEAKER) (test jwdk=9191) 123 mg/dL 70-110 TESTED AT [facility] [address] [facility] [address] [id number] 05:13:00* Test Item Value Reference Range Comments PHOSPHORUS (BEAKER) (test uowq=323) 3.1 mg/dL 2.3-4.7 [id number] 05:13:00* Test Item Value Reference Range Comments MAGNESIUM (BEAKER) (test iwnj=664) 1.9 mg/dL 1.6-2.6 BASIC METABOLIC [id number] 05:13:00* Test Item Value Reference Range Comments SODIUM (BEAKER) (test vpow=411) 138 meq/L 136-145 POTASSIUM (BEAKER) (test autn=566) 4.1 meq/L 3.5-5.1 CHLORIDE (BEAKER) (test rzzi=109) 106 meq/L 98-107 CO2 (BEAKER) (test slol=095) 23 meq/L 22-29 BLOOD UREA NITROGEN (BEAKER) (test jzfu=571) 9 mg/dL 7-21 CREATININE (BEAKER) (test pbxf=276) 0.64 mg/dL 0.57-1.25 GLUCOSE RANDOM (BEAKER) (test wihc=103) 159 mg/dL 70-105 CALCIUM (BEAKER) (test yszx=537) 8.6 mg/dL 8.4-10.2 EGFR (BEAKER) (test dqho=2802) 104 mL/min/1.73 sq m ESTIMATED GFR IS NOT ACCURATE CREATININE CLEARANCE IN PREDICTING GLOMERULAR FILTRATION RATE. ESTIMATED GFR IS NOT APPLICABLE FOR DIALYSIS PATIENTS. BLOOD [id number] 02:00:00* Test Item Value Reference Range Comments CULTURE (BEAKER) (test rcnj=7547) No growth in 5 days POCT-GLUCOSE [id number] 21:18:00* Test Item Value Reference Range Comments POC-GLUCOSE METER (BEAKER) (test smwy=8019) 147 mg/dL 70-110 TESTED AT [facility] [address] [facility] [address] RAD, CHEST, 1 VIEW, NON [id number] 19:05:00Reason for exam:->ABDOMINAL PAINPATIENT C/O LEFT SIDED ABDOMINAL PAIN WITH FEVER,VOMITING/CONSTIPATION-HAD ABDOMINAL SURGERY 10/16/18(DISTAL PANCREATECTOMY AND SPLEENECTOMY FOR STAGE 3 PANCREATIC CANCER)Should this be performed at the bedside?->YesFINAL REPORT History: Abdominal pain. Comparison: 07/16/2018 Findings: A single view of the chest is submitted. The examination is limited by low lung volumes and rotation to the left. The cardiac silhouette is grossly stable from previous and within normal limits for size but partially obscured by significant elevation of the left hemidiaphragm. Curvilinear opacity in the left lung base suggests atelectasis. There is no focal consolidation, pneumothorax, large pleural effusion or evidence of overt pulmonary edema. There is no acute bony abnormality. A right IJ chest port remains in place. Signed: Nelida Clark MDReport Verified Date/Time: 10/22/2018 19:05:02 Reading Location: [address] Reading Room HROMBIN [id number] 18:24:00* Test Item Value Reference Range Comments PROTIME (BEAKER) (test ytpw=827) 11.4 seconds 9.8-12.0 INR (BEAKER) (test jdgv=895) 1.1 <=5.9 RECOMMENDED COUMADIN/WARFARIN INR THERAPY RANGESSTANDARD DOSE: 2.0 - 3.0 Inclu yossi: PROPHYLAXIS for venous thrombosis, systemic embolization; TREATMENT for cornell ous thrombosis and/or pulmonary embolus.HIGH RISK: Target INR is 2.5-3.5 for pat ients with mechanical heart valves.[id number] 18:24:00* Test Item Value Reference Range Comments PARTIAL THROMBOPLASTIN TIME (BEAKER) (test wbkg=087) 30.1 seconds 25.8-34.5 LACTIC ACID, [id number] 18:19:00* Test Item Value Reference Range Comments LACTATE BLOOD VENOUS (2) (BEAKER) (test yeki=2020) 1.1 mmol/L 0.5-2.2 [id number] 18:15:00* Test Item Value Reference Range Comments MAGNESIUM (KATHARINA) (test zhhp=319) 2.0 mg/dL 1.5-3.0 [id number] 18:15:00* Test Item Value Reference Range Comments PHOSPHORUS (KATHARINA) (test sftm=790) 3.8 mg/dL 2.5-4.5 CT, [id number] 17:45:00FINAL REPORT ABDOMINAL AND PELVIS CT DATED 10/22/2018 CLINICAL INFORMATION: abdo pain TECHNIQUE: Axial images of the abdomen and pelvis were obtained from diaphragm to the pubic symphysis without GI or intravenous contrast. This exam was performed according to our departmental dose-optimization program, which includes automated exposure control, adjustment of the mA and/or kV according to patient size and/or use of interactive reconstruction technique. COMMENT: Subsegmental atelectasis is seen in both lung bases. Patient is status post splenectomy. Inflammatory changes are seen in the mesentery and omentum. A few small air bubbles are seen in the omentum. A loculated air is seen in the region of the splenic flexure measuring approximately 3.5 x 5.3 cm just under the left hemidiaphragm may represent focal dilatation of the splenic flexure or loculated free air. The stomach is distended. There is marked wall thickening in the stomach suggestive of gastritis. Liver and spleen are normal in size without focal abnormality. There is diffusely decreased attenuation in the liver consistent with fatty hepatic infiltrate. Gallbladder is surgically absent. No biliary dilatation is noted. Pancreas is fatty replaced. The adrenals are unremarkable. Both kidneys are normal in size. Several stones are seen in the right kidney measuring up to 3 mm in diameter. Several stones are seen in the left kidney measuring up to 3 mm in size. No hydronephrosis or hydroureter is present. The small and large bowel are suboptimally evaluated secondary to lack of GI and intravenous contrast. No small or large bowel dilatation is seen. Appendix is normal in caliber. Uterus is surgically absent. Both ovaries are not well seen. The urinary bladder is distended. IMPRESSION: 1. Suboptimal examination secondary to lack of GI and intravenous contrast.2. Status post splenectomy.3. Inflammatory changes and small air bubbles in the omentum suggestive of postoperative changes.4. Focal loculated air under the left hemidiaphragm adjacent to the splenic flecture may represent a focal dilatation the splenic flexure or loculated free air.5. Gastric wall thickening suggestive of gastritis.6. Bilateral renal stones witho ut hydronephrosis or hydroureter.7. Fatty liver. Signed: Al Bravo Ve rified Date/Time: 10/22/2018 17:45:07 Reading Location: [facility] B1 C013Y CT Body Re ading Room C METABOLIC [id number] 17:01:00* Test Item Value Reference Range Comments SODIUM (BEAKER) (test bwiq=028) 133 meq/L 135-148 POTASSIUM (BEAKER) (test czwz=328) 4.3 meq/L 3.6-5.5 CHLORIDE (BEAKER) (test arko=184) 96 meq/L 98-106 CO2 (BEAKER) (test hhmo=839) 28 meq/L 24-32 BLOOD UREA NITROGEN (BEAKER) (test hvud=766) 10 mg/dL 10-26 CREATININE (BEAKER) (test tyoy=941) 0.43 mg/dL 0.50-1.20 GLUCOSE RANDOM (BEAKER) (test mscj=591) 111 mg/dL 70-110 CALCIUM (BEAKER) (test uxmr=891) 8.3 mg/dL 8.5-10.5 EGFR (BEAKER) (test iuby=3425) 164 mL/min/1.73 sq m ESTIMATED GFR IS NOT ACCURATE CREATININE CLEARANCE IN PREDICTING GLOMERULAR FILTRATION RATE. ESTIMATED GFR IS NOT APPLICABLE FOR DIALYSIS PATIENTS. [id number] 17:01:00* Test Item Value Reference Range Comments LIPASE (BEAKER) (test qqda=693) 23 U/L 40-240 HEPATIC FUNCTION [id number] 16:47:00* Test Item Value Reference Range Comments TOTAL PROTEIN (BEAKER) (test nwqs=369) 6.9 gm/dL 6.0-8.5 ALBUMIN (BEAKER) (test hnxn=9259) 3.5 g/dL 3.5-5.0 BILIRUBIN TOTAL (BEAKER) (test oagn=701) 0.2 mg/dL 0.1-1.2 BILIRUBIN DIRECT (BEAKER) (test uvuc=548) 0.1 mg/dL 0.0-0.4 ALKALINE PHOSPHATASE (BEAKER) (test tbrw=883) 230 U/L 30-115 AST (SGOT) (BEAKER) (test rufs=368) 41 U/L 5-40 ALT (SGPT) (BEAKER) (test cqik=950) 39 U/L 5-50 CBC W/PLT COUNT & AUTO [id number] 16:44:00* Test Item Value Reference Range Comments WHITE BLOOD CELL COUNT (BEAKER) (test acby=453) 29.0 K/ L 4.0-10.0 RED BLOOD CELL COUNT (BEAKER) (test biau=445) 2.68 M/ L 4.00-5.00 HEMOGLOBIN (BEAKER) (test kinx=489) 7.3 GM/DL 12.0-15.0 HEMATOCRIT (BEAKER) (test ndmj=729) 23.2 % 36.0-45.0 MEAN CORPUSCULAR VOLUME (BEAKER) (test szjv=449) 86.5 fL 82.0-99.0 MEAN CORPUSCULAR HEMOGLOBIN (BEAKER) (test kzxo=183) 27.1 pg 27.0-33.0 MEAN CORPUSCULAR HEMOGLOBIN CONC (BEAKER) (test ifvk=910) 31.4 GM/DL 32.0-36.0 RED CELL DISTRIBUTION WIDTH (BEAKER) (test lslw=716) 15.2 % 10.3-14.2 PLATELET COUNT (BEAKER) (test sohw=104) 643 K/CU MM 150-430 MEAN PLATELET VOLUME (BEAKER) (test sfmn=409) 7.3 fL 6.5-10.5 NEUTROPHILS RELATIVE PERCENT (BEAKER) (test cqow=125) 83 % LYMPHOCYTES RELATIVE PERCENT (BEAKER) (test rvlc=151) 7 % MONOCYTES RELATIVE PERCENT (BEAKER) (test yneo=817) 7 % EOSINOPHILS RELATIVE PERCENT (BEAKER) (test spky=669) 3 % BASOPHILS RELATIVE PERCENT (BEAKER) (test wezq=483) 1 % NEUTROPHILS ABSOLUTE COUNT (BEAKER) (test frpt=966) 23.93 K/ L 1.80-8.00 LYMPHOCYTES ABSOLUTE COUNT (BEAKER) (test nsrb=996) 1.94 K/ L 1.48-4.50 MONOCYTES ABSOLUTE COUNT (BEAKER) (test iprr=101) 2.09 K/ L 0.00-1.30 EOSINOPHILS ABSOLUTE COUNT (BEAKER) (test ulli=386) 0.78 K/ L 0.00-0.50 BASOPHILS ABSOLUTE COUNT (BEAKER) (test gbcg=094) 0.26 K/ L 0.00-0.20 POCT-GLUCOSE [id number] 12:44:00* Test Item Value Reference Range Comments POC-GLUCOSE METER (BEAKER) (test bdbg=1873) 145 mg/dL 70-110 TESTED AT [facility] [address] [facility] [address] POCT-GLUCOSE [id number] 08:12:00* Test Item Value Reference Range Comments POC-GLUCOSE METER (BEAKER) (test mdtr=5399) 203 mg/dL 70-110 TESTED AT [place] [id number] [facility] [address] [id number] 05:57:00* Test Item Value Reference Range Comments PHOSPHORUS (BEAKER) (test twpz=014) 2.4 mg/dL 2.3-4.7 [id number] 05:57:00* Test Item Value Reference Range Comments MAGNESIUM (BEAKER) (test lhri=273) 1.7 mg/dL 1.6-2.6 BASIC METABOLIC [id number] 05:57:00* Test Item Value Reference Range Comments SODIUM (BEAKER) (test fmwt=352) 137 meq/L 136-145 POTASSIUM (BEAKER) (test kdso=908) 4.0 meq/L 3.5-5.1 CHLORIDE (BEAKER) (test mpiv=017) 106 meq/L 98-107 CO2 (BEAKER) (test phvr=934) 23 meq/L 22-29 BLOOD UREA NITROGEN (BEAKER) (test cotq=618) 7 mg/dL 7-21 CREATININE (BEAKER) (test rgiz=284) 0.59 mg/dL 0.57-1.25 GLUCOSE RANDOM (BEAKER) (test zmzp=818) 123 mg/dL 70-105 CALCIUM (BEAKER) (test sokt=690) 8.9 mg/dL 8.4-10.2 EGFR (BEAKER) (test lszq=8311) 114 mL/min/1.73 sq m ESTIMATED GFR IS NOT ACCURATE CREATININE CLEARANCE IN PREDICTING GLOMERULAR FILTRATION RATE. ESTIMATED GFR IS NOT APPLICABLE FOR DIALYSIS PATIENTS. CBC (HEMOGRAM ONLY)2018-10-20 04:50:00* Test Item Value Reference Range Comments WHITE BLOOD CELL COUNT (BEAKER) (test wyxj=705) 15.0 K/ L 3.5-10.5 RED BLOOD CELL COUNT (BEAKER) (test dxyk=762) 2.83 M/ L 3.93-5.22 HEMOGLOBIN (BEAKER) (test cmeg=259) 7.6 GM/DL 11.2-15.7 HEMATOCRIT (BEAKER) (test rhge=814) 24.4 % 34.1-44.9 MEAN CORPUSCULAR VOLUME (BEAKER) (test grav=882) 86.2 fL 79.4-94.8 MEAN CORPUSCULAR HEMOGLOBIN (BEAKER) (test uzvl=729) 26.9 pg 25.6-32.2 MEAN CORPUSCULAR HEMOGLOBIN CONC (BEAKER) (test wijz=742) 31.1 GM/DL 32.2-35.5 RED CELL DISTRIBUTION WIDTH (BEAKER) (test hdty=419) 15.5 % 11.7-14.4 PLATELET COUNT (BEAKER) (test ryux=420) 384 K/CU MM 150-450 MEAN PLATELET VOLUME (BEAKER) (test dwtq=129) 9.6 fL 9.4-12.3 NUCLEATED RED BLOOD CELLS (BEAKER) (test tedt=173) 0 /100 WBC 0-0 POCT-GLUCOSE [id number] 20:52:00* Test Item Value Reference Range Comments POC-GLUCOSE METER (BEAKER) (test ipgd=2371) 136 mg/dL 70-110 TESTED AT [facility] [address] [facility] [address] POCT-GLUCOSE [id number] 17:54:00* Test Item Value Reference Range Comments POC-GLUCOSE METER (BEAKER) (test lzlb=7124) 151 mg/dL 70-110 TESTED AT [facility] [address] [facility] [address] POCT-GLUCOSE [id number] 12:40:00* Test Item Value Reference Range Comments POC-GLUCOSE METER (BEAKER) (test kwqf=9358) 124 mg/dL 70-110 TESTED AT [facility] [address] [facility] [address] POCT-GLUCOSE [id number] 09:32:00* Test Item Value Reference Range Comments POC-GLUCOSE METER (BEAKER) (test fxjj=7087) 167 mg/dL 70-110 TESTED AT [facility] [address] [facility] [address] [id number] 06:49:00* Test Item Value Reference Range Comments PHOSPHORUS (BEAKER) (test kypr=456) 2.1 mg/dL 2.3-4.7 [id number] 06:49:00* Test Item Value Reference Range Comments MAGNESIUM (BEAKER) (test tarx=933) 1.8 mg/dL 1.6-2.6 BASIC METABOLIC [id number] 06:49:00* Test Item Value Reference Range Comments SODIUM (BEAKER) (test bjqh=382) 136 meq/L 136-145 POTASSIUM (BEAKER) (test ltfp=360) 3.8 meq/L 3.5-5.1 CHLORIDE (BEAKER) (test nxcy=413) 105 meq/L 98-107 CO2 (BEAKER) (test nndm=799) 25 meq/L 22-29 BLOOD UREA NITROGEN (BEAKER) (test gfla=777) 6 mg/dL 7-21 CREATININE (BEAKER) (test ulrd=098) 0.60 mg/dL 0.57-1.25 GLUCOSE RANDOM (BEAKER) (test hext=533) 133 mg/dL 70-105 CALCIUM (BEAKER) (test ptiy=169) 9.2 mg/dL 8.4-10.2 EGFR (BEAKER) (test moug=8496) 112 mL/min/1.73 sq m ESTIMATED GFR IS NOT ACCURATE CREATININE CLEARANCE IN PREDICTING GLOMERULAR FILTRATION RATE. ESTIMATED GFR IS NOT APPLICABLE FOR DIALYSIS PATIENTS. AMYLASE, BODY [id number] 06:36:00* Test Item Value Reference Range Comments AMYLASE FLUID (BEAKER) (test yqpp=367) 26 U/L Absence of reference range indicates that normals have not been defined.Assay pe rformance has not been validated for this type of specimen.CBC (HEMOGRAM ONLY) 2018-10-19 06:16:00* Test Item Value Reference Range Comments WHITE BLOOD CELL COUNT (BEAKER) (test tong=749) 18.5 K/ L 3.5-10.5 RED BLOOD CELL COUNT (BEAKER) (test vmpx=635) 3.02 M/ L 3.93-5.22 HEMOGLOBIN (BEAKER) (test ldmu=797) 8.3 GM/DL 11.2-15.7 HEMATOCRIT (BEAKER) (test pque=869) 26.0 % 34.1-44.9 MEAN CORPUSCULAR VOLUME (BEAKER) (test udzf=939) 86.1 fL 79.4-94.8 MEAN CORPUSCULAR HEMOGLOBIN (BEAKER) (test oibv=355) 27.5 pg 25.6-32.2 MEAN CORPUSCULAR HEMOGLOBIN CONC (BEAKER) (test rsay=527) 31.9 GM/DL 32.2-35.5 RED CELL DISTRIBUTION WIDTH (BEAKER) (test szya=500) 15.4 % 11.7-14.4 PLATELET COUNT (BEAKER) (test ovoz=061) 356 K/CU MM 150-450 MEAN PLATELET VOLUME (BEAKER) (test sysa=319) 9.4 fL 9.4-12.3 NUCLEATED RED BLOOD CELLS (BEAKER) (test upnk=366) 0 /100 WBC 0-0 POCT-GLUCOSE [id number] 21:38:00* Test Item Value Reference Range Comments POC-GLUCOSE METER (BEAKER) (test brop=7564) 188 mg/dL 70-110 TESTED AT [place] [id number] POCT-GLUCOSE [id number] 17:15:00* Test Item Value Reference Range Comments POC-GLUCOSE METER (BEAKER) (test axqm=8454) 150 mg/dL 70-110 TESTED AT [address] [address] POCT-GLUCOSE [id number] 12:31:00* Test Item Value Reference Range Comments POC-GLUCOSE METER (BEAKER) (test lcrd=3601) 111 mg/dL 70-110 TESTED AT [address] [address] POCT-GLUCOSE [id number] 10:22:00* Test Item Value Reference Range Comments POC-GLUCOSE METER (BEAKER) (test sxgp=9786) 162 mg/dL 70-110 TESTED AT [address] [address] URINALYSIS W/ REFLEX URINE [id number] 09:16:00* Test Item Value Reference Range Comments COLOR (BEAKER) (test zrne=937) Yellow CLARITY (BEAKER) (test lebl=598) Clear SPECIFIC GRAVITY UA (BEAKER) (test qfqz=826) 1.015 1.001-1.035 PH UA (BEAKER) (test bztd=795) 6.5 5.0-8.0 PROTEIN UA (BEAKER) (test qfzn=497) 20 mg/dL Negative GLUCOSE UA (BEAKER) (test moiq=758) Negative Negative KETONES UA (BEAKER) (test pjzc=408) Trace Negative BILIRUBIN UA (BEAKER) (test fswy=801) Negative Negative BLOOD UA (BEAKER) (test epok=589) Trace Negative NITRITE UA (BEAKER) (test sfkm=175) Negative Negative LEUKOCYTE ESTERASE UA (BEAKER) (test hvkk=753) Negative Negative UROBILINOGEN UA (BEAKER) (test cdei=396) 0.2 mg/dL 0.2-1.0 RBC UA (BEAKER) (test adyw=001) < /HPF WBC UA (BEAKER) (test bjpn=889) 14 /HPF BACTERIA (BEAKER) (test phpd=874) Many MUCUS (BEAKER) (test ygir=9951) Rare SQUAMOUS EPITHELIAL (BEAKER) (test riut=991) 13 /HPF SOURCE(BEAKER) (test yfxz=0111) [id number] 07:16:00* Test Item Value Reference Range Comments PHOSPHORUS (BEAKER) (test vcid=075) 1.9 mg/dL 2.3-4.7 [id number] 07:16:00* Test Item Value Reference Range Comments MAGNESIUM (BEAKER) (test xvdz=569) 1.9 mg/dL 1.6-2.6 BASIC METABOLIC [id number] 07:16:00* Test Item Value Reference Range Comments SODIUM (BEAKER) (test dyao=348) 137 meq/L 136-145 POTASSIUM (BEAKER) (test rrhw=933) 3.7 meq/L 3.5-5.1 CHLORIDE (BEAKER) (test umpe=413) 107 meq/L 98-107 CO2 (BEAKER) (test ulws=791) 22 meq/L 22-29 BLOOD UREA NITROGEN (BEAKER) (test vmvy=020) 8 mg/dL 7-21 CREATININE (BEAKER) (test wgdy=486) 0.65 mg/dL 0.57-1.25 GLUCOSE RANDOM (BEAKER) (test imtg=842) 144 mg/dL 70-105 CALCIUM (BEAKER) (test ouym=990) 9.3 mg/dL 8.4-10.2 EGFR (BEAKER) (test mzgx=4248) 102 mL/min/1.73 sq m ESTIMATED GFR IS NOT ACCURATE CREATININE CLEARANCE IN PREDICTING GLOMERULAR FILTRATION RATE. ESTIMATED GFR IS NOT APPLICABLE FOR DIALYSIS PATIENTS. CBC (HEMOGRAM ONLY)2018-10-18 01:48:00* Test Item Value Reference Range Comments WHITE BLOOD CELL COUNT (BEAKER) (test uiui=200) 22.2 K/ L 3.5-10.5 RED BLOOD CELL COUNT (BEAKER) (test sgoy=322) 3.28 M/ L 3.93-5.22 HEMOGLOBIN (BEAKER) (test vcym=834) 8.9 GM/DL 11.2-15.7 HEMATOCRIT (BEAKER) (test fxye=636) 28.1 % 34.1-44.9 MEAN CORPUSCULAR VOLUME (BEAKER) (test mskn=417) 85.7 fL 79.4-94.8 MEAN CORPUSCULAR HEMOGLOBIN (BEAKER) (test wfjj=583) 27.1 pg 25.6-32.2 MEAN CORPUSCULAR HEMOGLOBIN CONC (BEAKER) (test ggls=681) 31.7 GM/DL 32.2-35.5 RED CELL DISTRIBUTION WIDTH (BEAKER) (test uuuj=977) 15.4 % 11.7-14.4 PLATELET COUNT (BEAKER) (test bsdk=272) 296 K/CU MM 150-450 MEAN PLATELET VOLUME (BEAKER) (test saiw=077) 9.6 fL 9.4-12.3 NUCLEATED RED BLOOD CELLS (BEAKER) (test kban=457) 0 /100 WBC 0-0 POCT-LACTIC ACID, [id number] 00:27:00* Test Item Value Reference Range Comments POC-LACTIC ACID, VENOUS (BEAKER) (test mofg=2384) 1.1 mmol/L 0.9-1.7 TESTED AT [place] [id number] [id number] 22:56:00* Test Item Value Reference Range Comments POC-SODIUM (BEAKER) (test hxyu=6288) 136 meq/L 135-148 TESTED AT [place] [address]30 [id number] 22:56:00* Test Item Value Reference Range Comments POC-POTASSIUM (BEAKER) (test alxr=1316) 3.4 meq/L 3.6-5.5 TESTED AT [place] [address] [id number] 22:56:00* Test Item Value Reference Range Comments POC-GLUCOSE (BEAKER) (test ajcz=7112) 166 mg/dL 70-110 TESTED AT [place] [address] POCT-CALCIUM [id number] 22:56:00* Test Item Value Reference Range Comments POC-CALCIUM IONIZED (BEAKER) (test laxb=1508) 1.19 mmol/L 1.12-1.27 TESTED AT [place] [address] [id number] 22:56:00* Test Item Value Reference Range Comments POC-HEMATOCRIT (BEAKER) (test uuqw=4553) 36 % 36-45 TESTED AT [place] [address]30 [id number] 22:56:00* Test Item Value Reference Range Comments POC-HEMOGLOBIN (BEAKER) (test qwjh=9059) 12.2 g/dL 12.0-15.0 TESTED AT [place] [address] AT [place] [address] POCT-BLOOD GASES, [id number] 22:55:00* Test Item Value Reference Range Comments TEMP, CELSIUS-POC (BEAKER) (test dczu=7233) 38.4 FIO2-POC (BEAKER) (test vrpc=7396) 32 TESTED AT [place] [address]30 PH, VENOUS-POC (BEAKER) (test mbme=5806) 7.390 7.320-7.420 PCO2, VENOUS-POC (BEAKER) (test ujxz=2711) 40.5 mm Hg 41.0-51.0 PO2, VENOUS-POC (BEAKER) (test jxca=3522) 32.0 mm Hg 25.0-40.0 SO2, VENOUS-POC (BEAKER) (test orlp=2592) 57.0 % 40.0-70.0 HCO3, VENOUS-POC (BEAKER) (test azwo=8579) 24.2 meq/L 21.0-29.0 BASE EXCESS, VENOUS-POC (BEAKER) (test fpwe=7202) 0.0 meq/L -2.0-3.0 POCT-GLUCOSE [id number] 21:23:00* Test Item Value Reference Range Comments POC-GLUCOSE METER (BEAKER) (test nakp=8039) 168 mg/dL 70-110 TESTED AT [address] [address] POCT-GLUCOSE [id number] 17:03:00* Test Item Value Reference Range Comments POC-GLUCOSE METER (BEAKER) (test vjyl=3971) 165 mg/dL 70-110 TESTED AT [address] [address] POCT-GLUCOSE [id number] 12:17:00* Test Item Value Reference Range Comments POC-GLUCOSE METER (BEAKER) (test hylr=9163) 166 mg/dL 70-110 TESTED AT [address] [address] POCT-GLUCOSE [id number] 08:37:00* Test Item Value Reference Range Comments POC-GLUCOSE METER (BEAKER) (test shza=2620) 170 mg/dL 70-110 TESTED AT [address] [address] AMYLASE, BODY [id number] 08:30:00* Test Item Value Reference Range Comments AMYLASE FLUID (BEAKER) (test hrab=364) 543 U/L Absence of reference range indicates that normals have not been defined.Assay pe rformance has not been validated for this type of specimen.[id number] 06:07:00* Test Item Value Reference Range Comments PHOSPHORUS (BEAKER) (test dmoz=483) 3.1 mg/dL 2.3-4.7 [id number] 06:07:00* Test Item Value Reference Range Comments MAGNESIUM (BEAKER) (test rvie=380) 1.9 mg/dL 1.6-2.6 BASIC METABOLIC [id number] 06:07:00* Test Item Value Reference Range Comments SODIUM (BEAKER) (test vtnx=906) 138 meq/L 136-145 POTASSIUM (BEAKER) (test atfv=086) 3.7 meq/L 3.5-5.1 CHLORIDE (BEAKER) (test iwoj=868) 108 meq/L 98-107 CO2 (BEAKER) (test lawm=238) 23 meq/L 22-29 BLOOD UREA NITROGEN (BEAKER) (test eutg=706) 9 mg/dL 7-21 CREATININE (BEAKER) (test cnna=332) 0.67 mg/dL 0.57-1.25 GLUCOSE RANDOM (BEAKER) (test fehs=312) 151 mg/dL 70-105 CALCIUM (BEAKER) (test bfer=657) 8.8 mg/dL 8.4-10.2 EGFR (BEAKER) (test efue=3690) 99 mL/min/1.73 sq m ESTIMATED GFR IS NOT ACCURATE CREATININE CLEARANCE IN PREDICTING GLOMERULAR FILTRATION RATE. ESTIMATED GFR IS NOT APPLICABLE FOR DIALYSIS PATIENTS. CBC (HEMOGRAM ONLY)2018-10-17 05:37:00* Test Item Value Reference Range Comments WHITE BLOOD CELL COUNT (BEAKER) (test jdkm=616) 15.9 K/ L 3.5-10.5 RED BLOOD CELL COUNT (BEAKER) (test kgno=478) 3.45 M/ L 3.93-5.22 HEMOGLOBIN (BEAKER) (test knxp=304) 9.3 GM/DL 11.2-15.7 HEMATOCRIT (BEAKER) (test heoy=678) 29.4 % 34.1-44.9 MEAN CORPUSCULAR VOLUME (BEAKER) (test mjfp=565) 85.2 fL 79.4-94.8 MEAN CORPUSCULAR HEMOGLOBIN (BEAKER) (test fpdq=307) 27.0 pg 25.6-32.2 MEAN CORPUSCULAR HEMOGLOBIN CONC (BEAKER) (test rpow=794) 31.6 GM/DL 32.2-35.5 RED CELL DISTRIBUTION WIDTH (BEAKER) (test ijpb=554) 15.2 % 11.7-14.4 PLATELET COUNT (BEAKER) (test uwee=558) 280 K/CU MM 150-450 MEAN PLATELET VOLUME (BEAKER) (test znvz=597) 9.8 fL 9.4-12.3 NUCLEATED RED BLOOD CELLS (BEAKER) (test rvao=267) 0 /100 WBC 0-0 POCT-GLUCOSE [id number] 21:19:00* Test Item Value Reference Range Comments POC-GLUCOSE METER (BEAKER) (test lags=3464) 147 mg/dL 70-110 TESTED AT [facility] [address] [facility] [address] POCT-GLUCOSE [id number] 17:29:00* Test Item Value Reference Range Comments POC-GLUCOSE METER (BEAKER) (test ziuf=5851) 166 mg/dL 70-110 TESTED AT [facility] [address] [facility] [address] BASIC METABOLIC [id number] 15:10:00* Test Item Value Reference Range Comments SODIUM (BEAKER) (test kiid=463) 139 meq/L 136-145 POTASSIUM (BEAKER) (test vtwo=482) 4.3 meq/L 3.5-5.1 CHLORIDE (BEAKER) (test htod=491) 111 meq/L 98-107 CO2 (BEAKER) (test unae=026) 21 meq/L 22-29 BLOOD UREA NITROGEN (BEAKER) (test fhgo=166) 13 mg/dL 7-21 CREATININE (BEAKER) (test utva=282) 0.66 mg/dL 0.57-1.25 GLUCOSE RANDOM (BEAKER) (test vqtm=198) 163 mg/dL 70-105 CALCIUM (BEAKER) (test voke=159) 8.6 mg/dL 8.4-10.2 EGFR (BEAKER) (test heke=7334) 100 mL/min/1.73 sq m ESTIMATED GFR IS NOT ACCURATE CREATININE CLEARANCE IN PREDICTING GLOMERULAR FILTRATION RATE. ESTIMATED GFR IS NOT APPLICABLE FOR DIALYSIS PATIENTS. CBC (HEMOGRAM ONLY)2018-10-16 14:47:00* Test Item Value Reference Range Comments WHITE BLOOD CELL COUNT (BEAKER) (test hadl=398) 15.1 K/ L 3.5-10.5 RED BLOOD CELL COUNT (BEAKER) (test efyu=804) 3.27 M/ L 3.93-5.22 HEMOGLOBIN (BEAKER) (test ikdy=812) 8.9 GM/DL 11.2-15.7 HEMATOCRIT (BEAKER) (test zmrk=550) 27.7 % 34.1-44.9 MEAN CORPUSCULAR VOLUME (BEAKER) (test qmqt=440) 84.7 fL 79.4-94.8 MEAN CORPUSCULAR HEMOGLOBIN (BEAKER) (test yyzc=273) 27.2 pg 25.6-32.2 MEAN CORPUSCULAR HEMOGLOBIN CONC (BEAKER) (test jqgh=904) 32.1 GM/DL 32.2-35.5 RED CELL DISTRIBUTION WIDTH (BEAKER) (test sjhz=579) 15.1 % 11.7-14.4 PLATELET COUNT (BEAKER) (test cozq=602) 234 K/CU MM 150-450 MEAN PLATELET VOLUME (BEAKER) (test xmnn=620) 9.4 fL 9.4-12.3 NUCLEATED RED BLOOD CELLS (BEAKER) (test tbep=236) 0 /100 WBC 0-0 MR, ABDOMEN, [id number] 17:19:00FINAL REPORT MRI of the abdomen with and without contrast, MRCP Clinical History: C25.9 Technique: Multiplanar and multisequence MR images of the abdomen are obtained before and after intravenous contrast administration. Contrast is administered to evaluate neoplasm and vasculature. Multiplanar and multisequence MR images of the biliary system are obtained, with dedicated MRCP protocol and images. In addition, 3 dimensional reformatted images of the biliary system are obtained to evaluate the biliary anatomy. Comparison: Multiple prior CTs, most recent exam is dated July 15, 2018 Discussion: Liver is severely fatty. No liver mass is identified. Status post cholecystectomy. No biliary ductal dilatation. CBD measures 3 mm. No ductal filling defect is identified. Hepatic vasculature is patent. There is marked atrophy of the pancreatic body and tail, which has progressed compared to more remote prior exams. No evidence of ductal dilatation. No peripancreatic fluid. There is minimal residual soft tissue prominence surrounding the common hepatic artery and abuts the main portal vein grossly unchanged when compared to the May 27, 2018 exam. No new mass or adenopathy is identified. Spleen unremarkable, and measures 10.4 cm. There is th rombosis of the splenic vein. Adrenal glands, kidneys appear unremarkable. There is no ascites. No suspicious bony lesion is identified. Visualized bowel is unr emarkable. Impression: Minimal residual soft tissue around the common hepatic ar matheus. No new mass or adenopathy identified in the abdomen. Severe hepatic steato sis. Status post cholecystectomy. Splenic vein thrombosis. Signed: Lamont Pedrazae port Verified Date/Time: 08/27/2018 17:19:06 Reading Location: [address] diology Reading Room Electronically signed by: LAMONT PEDRAZA M.D. on 019 05:[address], CHEST, WITH [id number] 16:53:00FINAL REPORT CT of the chest, with contrast Clinical History: Unspecified abdominal pain [R10.9], malignant neoplasm of pancreas Technique: CT of the chest is performed with intravenous contrast administration. This exam was performed according to our departmental dose optimization program which includes automated exposure control, adjustment of the mA and/or kV according to patient's size and/or use of iterative reconstructive technique. Comparison Fi lm: March 10, 2018 Discussion: There is a right-sided Port-A-Cath. Visualize d thyroid gland is unremarkable. No supraclavicular, axillary, mediastinal or hi lar lymphadenopathy. Heart is normal in size, no pericardial effusion. There is no mass or consolidation in the lungs, no pleural effusion. No bronchiectasis, o r bronchial wall thickening. Liver appears fatty, status post cholecystectomy. P lease refer to concurrent MRI for description of intra-abdominal findings. No yang spicious bony lesion is identified. Impression: No evidence of metastatic disea se in the thorax. Signed: Lamont Pedrazaeport Verified Date/Time: 08/27/2018 16:5 3:53 Reading Location: [address] Radiology Reading Room Electronicall y signed by: LAMONT PEDRAZA M.D. on 08/27/2018 04:53 PM [id number] 15:07:00* Test Item Value Reference Range Comments POC-CREATININE (BEAKER) (test wapb=0767) 0.6 mg/dL 0.6-1.3 TESTED AT [facility] [address] [facility] [address] POC-EGFR (BEAKER) (test pwpr=7308) 112 mL/min/1.73M2 ANG, REPL CVC/TUNNELED W/PORT/[id number] 20:04:00Reason for exam:->Port revision needed per radiology, port not flushingFINAL REPORT Right chest Port-A-Cath evaluation INDICATION: Difficulty in accessing and with aspiration Sedation: None PROCEDURE: A Heubner needle was placed into the right chest Port-A-Cath. On injection of contrast, there was prompt filling of the port reservoir as well as catheter with flow into the right atrium. There was no evidence of filling defect, fibrin sheath or extravasation. The patient tolerated the procedure well. Fluoroscopy time was 0.1 minutes and estimated dosage using reference air kerma level 0.5 mGy. IMPRESSION:Properly positioned and functioning right chest Port-A-Cath as described. Signed: Lowell Louis MDReport Verified Date/Time: 08/10/2018 20:04:57 Reading Location: [place] [address] Angio Body Reading Room ABDOMEN/PELVIS [id number] 02:40:00 [place] [address] Patient Name: BELIA VIGIL MR #: [id number] : [birth year] Age/Sex: 37/F Req #: [id number] Adm Physician: Ordered by: AYDEN COLLADO MD Report #: [id number] Location: ER Room/Bed: Procedure: [id number] CT/CT ABDOMEN/PELVIS WO Exam Date: 07/28/18 Exam Ti me: 0233 REPORT STATUS: Signed E XAM: CT ABDOMEN AND PELVIS without IV CONTRAST INDICATION: History of pancrea tic cancer, abdominal pain COMPARISON: CT of the abdomen and pelvis without I V contrast June 18, 2018, May 14, 2018 and January 12, 2018 TECHNIQUE: T he abdomen and pelvis were scanned using a multidetector helical scanner. Nellie nal and sagittal reformations were obtained. Dose modulation, iterative recons truction, and/or weight based adjustment of the mA/kV was utilized to reduce t he radiation dose to as low as reasonably achievable. Routine protocol perform ed. IV Contrast: None Oral Contrast: None CTDIvol has been reviewed. It is below the limits set by the Radiation Protocol Committee (RPC). FINDINGS : LOWER THORAX: No consolidations LIVER: Hepatic steatosis. BILIARY: Ch olecystectomy. No ductal dilation. SPLEEN: No masses PANCREAS: Stable ap pearance with indistinct pancreatic head and atrophy of the body and tail. ADRENALS: No nodules RIGHT KIDNEY: Stable punctate stones in the right ki dney measuring up to 3 mm in the inferior pole. LEFT KIDNEY: Stable punct ate stones in the left kidney. GI TRACT: No wall thickening or obstruction. Normal appendix. VESSELS: No abdominal aortic aneurysm. Upper abdomin al collateral vessels. PERITONEUM/RETROPERITONEUM: Trace free pelvic fluid. LYMPH NODES: No lymphadenopathy REPRODUCTIVE ORGANS: Normal appearance of t he bilateral ovaries. No uterus. BLADDER: Normal SOFT TISSUES: Normal B ONES: No suspicious bone lesions. IMPRESSION: No interval change in appea bruce of the abdomen. Bilateral nephrolithiasis. No hydronephrosis. Si gned by: Dr. Lamont Johnson M.D. on 07/28/2018 2:49 AM Dictated By: ISADORA JOHNSON MD 8 Tra nscribed By: WAYNE on 07/28/18248 COPY TO: AYDEN COLLADO MD CHROMOGRANIN [id number] 09:37:00* Test Item Value Reference Range Comments SCAN RESULT (test rxye=[id number]) [id number] 05:51:00* Test Item Value Reference Range Comments MAGNESIUM (BEAKER) (test etto=981) 1.8 mg/dL 1.6-2.6 COMPREHENSIVE METABOLIC [id number] 05:51:00* Test Item Value Reference Range Comments TOTAL PROTEIN (BEAKER) (test xzxr=054) 6.9 gm/dL 6.0-8.3 ALBUMIN (BEAKER) (test wlhk=0357) 4.0 g/dL 3.5-5.0 ALKALINE PHOSPHATASE (BEAKER) (test woid=611) 98 U/L 40-150 BILIRUBIN TOTAL (BEAKER) (test dxsd=507) 0.2 mg/dL 0.2-1.2 SODIUM (BEAKER) (test yspp=401) 139 meq/L 136-145 POTASSIUM (BEAKER) (test bjbc=689) 4.3 meq/L 3.5-5.1 CHLORIDE (BEAKER) (test xaxr=336) 107 meq/L 98-107 CO2 (BEAKER) (test ctfc=863) 25 meq/L 22-29 BLOOD UREA NITROGEN (BEAKER) (test sefe=461) 5 mg/dL 7-21 CREATININE (BEAKER) (test ueuy=093) 0.69 mg/dL 0.57-1.25 GLUCOSE RANDOM (BEAKER) (test dtem=127) 125 mg/dL 70-105 CALCIUM (BEAKER) (test aggo=891) 9.3 mg/dL 8.4-10.2 AST (SGOT) (BEAKER) (test uyum=419) 34 U/L 5-34 ALT (SGPT) (BEAKER) (test ijdf=499) 41 U/L 6-55 EGFR (BEAKER) (test rita=6125) 95 mL/min/1.73 sq m ESTIMATED GFR IS NOT ACCURATE CREATININE CLEARANCE IN PREDICTING GLOMERULAR FILTRATION RATE. ESTIMATED GFR IS NOT APPLICABLE FOR DIALYSIS PATIENTS. [id number] 04:55:00* Test Item Value Reference Range Comments MAGNESIUM (BEAKER) (test pmpy=193) 1.8 mg/dL 1.6-2.6 COMPREHENSIVE METABOLIC [id number] 04:55:00* Test Item Value Reference Range Comments TOTAL PROTEIN (BEAKER) (test igyr=876) 7.5 gm/dL 6.0-8.3 ALBUMIN (BEAKER) (test dlbx=1197) 4.3 g/dL 3.5-5.0 ALKALINE PHOSPHATASE (BEAKER) (test wmam=118) 111 U/L 40-150 BILIRUBIN TOTAL (BEAKER) (test lvgw=257) 0.3 mg/dL 0.2-1.2 SODIUM (BEAKER) (test iyhu=387) 139 meq/L 136-145 POTASSIUM (BEAKER) (test jdig=493) 4.1 meq/L 3.5-5.1 CHLORIDE (BEAKER) (test vsim=047) 106 meq/L 98-107 CO2 (BEAKER) (test xdzq=768) 25 meq/L 22-29 BLOOD UREA NITROGEN (BEAKER) (test iwnp=432) 7 mg/dL 7-21 CREATININE (BEAKER) (test ivqn=435) 0.70 mg/dL 0.57-1.25 GLUCOSE RANDOM (BEAKER) (test wwfj=991) 87 mg/dL 70-105 CALCIUM (BEAKER) (test lwbs=915) 9.8 mg/dL 8.4-10.2 AST (SGOT) (BEAKER) (test brpr=129) 51 U/L 5-34 ALT (SGPT) (BEAKER) (test crzv=315) 54 U/L 6-55 EGFR (BEAKER) (test akdm=1335) 94 mL/min/1.73 sq m ESTIMATED GFR IS NOT ACCURATE CREATININE CLEARANCE IN PREDICTING GLOMERULAR FILTRATION RATE. ESTIMATED GFR IS NOT APPLICABLE FOR DIALYSIS PATIENTS. PROTHROMBIN [id number] 04:50:00* Test Item Value Reference Range Comments PROTIME (BEAKER) (test uynf=944) 13.0 seconds 11.7-14.7 INR (BEAKER) (test ytuu=600) 1.0 <=5.9 RECOMMENDED COUMADIN/WARFARIN INR THERAPY RANGESSTANDARD DOSE: 2.0 - 3.0 Inclu yossi: PROPHYLAXIS for venous thrombosis, systemic embolization; TREATMENT for [place] ous thrombosis and/or pulmonary embolus.HIGH RISK: Target INR is 2.5-3.5 for pat ients with mechanical heart valves.[id number] 04:50:00* Test Item Value Reference Range Comments PARTIAL THROMBOPLASTIN TIME (BEAKER) (test pyzz=827) 29.0 seconds 22.5-36.0 CBC W/PLT COUNT & AUTO [id number] 04:38:00* Test Item Value Reference Range Comments WHITE BLOOD CELL COUNT (BEAKER) (test zztd=019) 4.7 K/ L 3.5-10.5 RED BLOOD CELL COUNT (BEAKER) (test vgha=688) 4.08 M/ L 3.93-5.22 HEMOGLOBIN (BEAKER) (test wpjm=025) 11.1 GM/DL 11.2-15.7 HEMATOCRIT (BEAKER) (test udiv=445) 34.8 % 34.1-44.9 MEAN CORPUSCULAR VOLUME (BEAKER) (test wppe=046) 85.3 fL 79.4-94.8 MEAN CORPUSCULAR HEMOGLOBIN (BEAKER) (test cjnd=667) 27.2 pg 25.6-32.2 MEAN CORPUSCULAR HEMOGLOBIN CONC (BEAKER) (test ggke=692) 31.9 GM/DL 32.2-35.5 RED CELL DISTRIBUTION WIDTH (BEAKER) (test rdxk=242) 15.5 % 11.7-14.4 PLATELET COUNT (BEAKER) (test skew=404) 264 K/CU MM 150-450 MEAN PLATELET VOLUME (BEAKER) (test jrqq=498) 10.1 fL 9.4-12.3 NUCLEATED RED BLOOD CELLS (BEAKER) (test jumj=902) 0 /100 WBC 0-0 NEUTROPHILS RELATIVE PERCENT (BEAKER) (test cmai=422) 44 % LYMPHOCYTES RELATIVE PERCENT (BEAKER) (test lnpn=802) 36 % MONOCYTES RELATIVE PERCENT (BEAKER) (test njio=729) 8 % EOSINOPHILS RELATIVE PERCENT (BEAKER) (test blkz=608) 11 % BASOPHILS RELATIVE PERCENT (BEAKER) (test ijsu=315) 0 % NEUTROPHILS ABSOLUTE COUNT (BEAKER) (test eelq=361) 2.09 K/ L 1.56-6.13 LYMPHOCYTES ABSOLUTE COUNT (BEAKER) (test vnez=276) 1.72 K/ L 1.18-3.74 MONOCYTES ABSOLUTE COUNT (BEAKER) (test bgsc=671) 0.38 K/ L 0.24-0.36 EOSINOPHILS ABSOLUTE COUNT (BEAKER) (test hmff=647) 0.50 K/ L 0.04-0.36 BASOPHILS ABSOLUTE COUNT (BEAKER) (test xuep=619) 0.02 K/ L 0.01-0.08 IMMATURE GRANULOCYTES-RELATIVE PERCENT (BEAKER) (test rdyr=8071) 0 % 0-1 C. DIFFICILE GDH [id number] 20:01:00* Test Item Value Reference Range Comments CDT TOXIN (test osgu=[id number]) Negative Negative CDT GDH ANTIGEN (test lijd=[id number]) Positive Negative C. difficile present but toxin not detected. Indicates colonization with non-toxigenic strain or level of toxin below detectable levels. No need for enteric isolation. Treatment is rarely needed (only when strong clinical suspicion for Clostridium difficile infection) Testing performed by [employer] Rapid Cassette Assay. For GDH, published sensitivity of the assay is 98.7% compared to cytotoxicity testing. For Toxin AB, publishe d sensitivity is 87.8% and specificity 99.4% compared to cytotoxicity testing.Ve rification of kit performance was done by the [facility] Microbiology Lab prior to cl inical use.RAD, CHEST, 1 VIEW, NON [id number] 10:11:00Reason for exam:-> check port position, not flushingShould this be performed at the bedside?->Yes FINAL REPORT CLINICAL HISTORY: check port position, not f lushing TECHNIQUE: 1 view of the chest. COMPARISON: 04/25/2018 IMPRESSION: The right chest wall port terminates in the SVC, approximately 2 cm above the cavoat rial junction. There are no infiltrates or effusions. The cardiomediastinal silh ouette is magnified by technique. Signed: Inna Mullen MDReport Verified Date/T angela: 07/16/2018 10:11:18 Reading Location: [facility] Radiology Reading Room [id number] 06:14:00* Test Item Value Reference Range Comments MAGNESIUM (BEAKER) (test qqsj=806) 2.0 mg/dL 1.6-2.6 Specimen slightly hemolyzed [id number] 06:14:00* Test Item Value Reference Range Comments PHOSPHORUS (BEAKER) (test aryn=830) 3.9 mg/dL 2.3-4.7 Specimen slightly hemolyzed COMPREHENSIVE METABOLIC [id number] 06:14:00* Test Item Value Reference Range Comments TOTAL PROTEIN (BEAKER) (test fypf=593) 7.5 gm/dL 6.0-8.3 Specimen slightly hemolyzed ALBUMIN (BEAKER) (test sqlo=2950) 4.2 g/dL 3.5-5.0 Specimen slightly hemolyzed ALKALINE PHOSPHATASE (BEAKER) (test jpys=958) 97 U/L 40-150 BILIRUBIN TOTAL (BEAKER) (test caxq=123) 0.4 mg/dL 0.2-1.2 Specimen slightly hemolyzed SODIUM (BEAKER) (test vrrt=720) 139 meq/L 136-145 POTASSIUM (BEAKER) (test gxhi=727) 4.6 meq/L 3.5-5.1 Specimen slightly hemolyzed CHLORIDE (BEAKER) (test mzwy=315) 108 meq/L 98-107 CO2 (BEAKER) (test rnpz=599) 23 meq/L 22-29 BLOOD UREA NITROGEN (BEAKER) (test ttpl=478) 9 mg/dL 7-21 CREATININE (BEAKER) (test vsyu=080) 0.73 mg/dL 0.57-1.25 Specimen slightly hemolyzed GLUCOSE RANDOM (BEAKER) (test fqwr=474) 122 mg/dL 70-105 CALCIUM (BEAKER) (test ynuv=327) 9.3 mg/dL 8.4-10.2 AST (SGOT) (BEAKER) (test oboc=960) 54 U/L 5-34 Specimen slightly hemolyzed ALT (SGPT) (BEAKER) (test csda=334) 56 U/L 6-55 Specimen slightly hemolyzed EGFR (BEAKER) (test ozka=0603) 89 mL/min/1.73 sq m ESTIMATED GFR IS NOT ACCURATE CREATININE CLEARANCE IN PREDICTING GLOMERULAR FILTRATION RATE. ESTIMATED GFR IS NOT APPLICABLE FOR DIALYSIS PATIENTS. URINALYSIS W/ REFLEX URINE [id number] 06:10:00* Test Item Value Reference Range Comments COLOR (BEAKER) (test kthj=627) Yellow CLARITY (BEAKER) (test upgv=798) Hazy SPECIFIC GRAVITY UA (BEAKER) (test ucer=437) 1.020 1.001-1.035 PH UA (BEAKER) (test ybxd=017) 6.0 5.0-8.0 PROTEIN UA (BEAKER) (test homx=996) 20 mg/dL Negative GLUCOSE UA (BEAKER) (test yzvg=502) Negative Negative KETONES UA (BEAKER) (test juoi=637) 20 mg/dL Negative BILIRUBIN UA (BEAKER) (test xqcr=563) Negative Negative BLOOD UA (BEAKER) (test clso=201) Negative Negative NITRITE UA (BEAKER) (test xpyl=377) Negative Negative LEUKOCYTE ESTERASE UA (BEAKER) (test qmei=637) Trace Negative UROBILINOGEN UA (BEAKER) (test yfmb=588) 0.2 mg/dL 0.2-1.0 RBC UA (BEAKER) (test wczr=362) 2 /HPF WBC UA (BEAKER) (test edbn=656) 1 /HPF BACTERIA (BEAKER) (test wyqa=413) Occasional MUCUS (BEAKER) (test rrjs=3374) Many SQUAMOUS EPITHELIAL (BEAKER) (test amit=010) 3 /HPF SOURCE(BEAKER) (test sisv=7209) [id number] 05:04:00* Test Item Value Reference Range Comments LIPASE (BEAKER) (test bmwh=539) 9 U/L 8-78 BASIC METABOLIC [id number] 05:04:00* Test Item Value Reference Range Comments SODIUM (BEAKER) (test iifo=459) 139 meq/L 136-145 POTASSIUM (BEAKER) (test wufc=407) 4.1 meq/L 3.5-5.1 CHLORIDE (BEAKER) (test djka=024) 108 meq/L 98-107 CO2 (BEAKER) (test jvfc=819) 21 meq/L 22-29 BLOOD UREA NITROGEN (BEAKER) (test cshb=890) 16 mg/dL 7-21 CREATININE (BEAKER) (test detl=574) 0.77 mg/dL 0.57-1.25 GLUCOSE RANDOM (BEAKER) (test yoac=100) 96 mg/dL 70-105 CALCIUM (BEAKER) (test cxln=567) 10.3 mg/dL 8.4-10.2 EGFR (BEAKER) (test dmfu=1576) 84 mL/min/1.73 sq m ESTIMATED GFR IS NOT ACCURATE CREATININE CLEARANCE IN PREDICTING GLOMERULAR FILTRATION RATE. ESTIMATED GFR IS NOT APPLICABLE FOR DIALYSIS PATIENTS. HEPATIC FUNCTION [id number] 05:04:00* Test Item Value Reference Range Comments TOTAL PROTEIN (BEAKER) (test sutb=536) 8.5 gm/dL 6.0-8.3 ALBUMIN (BEAKER) (test rhsn=1183) 4.7 g/dL 3.5-5.0 BILIRUBIN TOTAL (BEAKER) (test mjnb=886) 0.5 mg/dL 0.2-1.2 BILIRUBIN DIRECT (BEAKER) (test ivdu=085) 0.2 mg/dL 0.1-0.5 ALKALINE PHOSPHATASE (BEAKER) (test algq=905) 115 U/L 40-150 AST (SGOT) (BEAKER) (test dzxz=004) 33 U/L 5-34 ALT (SGPT) (BEAKER) (test itqp=627) 65 U/L 6-55 CT, [id number] 05:01:00Reason for exam:->ABDOMINAL PAINReason for exam:-> DIARRHEAReason for exam:->EMESISIs the patient ?->UnknownWhat is the patient's sedation requirement?->No SedationFINAL REPORT CLINICAL HISTORY: Acute abdominal pain, diarrhea, emesis FINDINGS: Multiple axial images of the abdomen and pelvis were performed without intravenous contrast. Oral contrast was not given. This exam was performed according to our departmental dose-optimization program, which includes automated exposure control, adjustment of the mA and/or kV according to patient size and/or use of the iterative reconstruction technique. Comparison: 05/02/2018 Lower chest: Clear lungs. No pleural effusion or pneumothorax. Visualized cardiac contours normal. Partially visualized breast prostheses. Liver: Hepatic steatosis Gallbladder and biliary tree: Previous cholecystectomy Spleen: No significant findings. Adrenal Glands: No significant findings. Kidneys and ureters: Several bilateral nonobstructing kidney stones, the largest measuring 3 to 4 mm. No ureteral stone or noncontrast CT evidence of obstructive uropathy. Stomach and Duodenum: No significant findings. Pancreas: Pancreatic atrophy Bowel: No bowel obstruction or pneumatosis intestinalis. Appendix: Normal. Bladder: No signi ficant findings. Major vascular structures: No significant findings. Reproductiv e organs: Previous hysterectomy Other: No free air, fluid or adenopathy Skeleton : No acute bony abnormality. IMPRESSION: No acute abnormality to explain the pat ient's symptoms. Hepatic steatosis. Bilateral nonobstructing kidney stones. Post surgical changes, as described. Signed: Nelida Clarkort Verified Date/Cipriano e: 07/15/2018 05:01:56 Reading Location: [address] Reading Room W/PLT COUNT & AUTO [id number] 04:31:00* Test Item Value Reference Range Comments WHITE BLOOD CELL COUNT (BEAKER) (test ghlo=089) 5.9 K/ L 3.5-10.5 RED BLOOD CELL COUNT (BEAKER) (test wzkm=246) 4.41 M/ L 3.93-5.22 HEMOGLOBIN (BEAKER) (test hmvx=064) 11.9 GM/DL 11.2-15.7 HEMATOCRIT (BEAKER) (test weyv=361) 37.3 % 34.1-44.9 MEAN CORPUSCULAR VOLUME (BEAKER) (test skfs=132) 84.6 fL 79.4-94.8 MEAN CORPUSCULAR HEMOGLOBIN (BEAKER) (test wfaw=684) 27.0 pg 25.6-32.2 MEAN CORPUSCULAR HEMOGLOBIN CONC (BEAKER) (test gech=938) 31.9 GM/DL 32.2-35.5 RED CELL DISTRIBUTION WIDTH (BEAKER) (test spyf=469) 15.6 % 11.7-14.4 PLATELET COUNT (BEAKER) (test qlal=225) 289 K/CU MM 150-450 MEAN PLATELET VOLUME (BEAKER) (test kxhw=576) 9.1 fL 9.4-12.3 NUCLEATED RED BLOOD CELLS (BEAKER) (test aehp=889) 0 /100 WBC 0-0 NEUTROPHILS RELATIVE PERCENT (BEAKER) (test rsao=486) 56 % LYMPHOCYTES RELATIVE PERCENT (BEAKER) (test gpsw=665) 34 % MONOCYTES RELATIVE PERCENT (BEAKER) (test fppf=390) 7 % EOSINOPHILS RELATIVE PERCENT (BEAKER) (test dndl=753) 2 % BASOPHILS RELATIVE PERCENT (BEAKER) (test hjce=075) 0 % NEUTROPHILS ABSOLUTE COUNT (BEAKER) (test zjkr=084) 3.30 K/ L 1.56-6.13 LYMPHOCYTES ABSOLUTE COUNT (BEAKER) (test sunn=770) 2.00 K/ L 1.18-3.74 MONOCYTES ABSOLUTE COUNT (BEAKER) (test acry=016) 0.43 K/ L 0.24-0.36 EOSINOPHILS ABSOLUTE COUNT (BEAKER) (test sztp=737) 0.14 K/ L 0.04-0.36 BASOPHILS ABSOLUTE COUNT (BEAKER) (test bddk=692) 0.02 K/ L 0.01-0.08 IMMATURE GRANULOCYTES-RELATIVE PERCENT (BEAKER) (test vwqb=9296) 0 % 0-1 CT ABDOMEN/PELVIS [id number] 21:25:00 [place] [address] Patient Name: BELIA VIGIL MR #: [id number] : 1980 Age/Sex: 37/F Req #: [id number] Adm Physician: Ordered by: YONATAN SIM MD Report #: [id number] Location: ER Room/Bed: Procedure: [id number] [id number] CT/CT ABDOMEN/PELVIS WO Exam Date: 06/18/18 Exa m Time: 2105 REPORT STATUS: Signed EXAM: CT Abdomen and Pelvis WITHOUT contrast INDICATION: LUQ pain, h/o pa ncreatic ca. COMPARISON: CT 05/14/2018 TECHNIQUE: Abdomen and pelvis were sc anned utilizing a multidetector helical scanner from the lung base to the pubi c symphysis without administration of IV contrast. Coronal and sagittal reform ations were obtained. Routine protocol was performed. IV CONTRAST: Non e ORAL CONTRAST: Water COMPLICATIONS: None RADIATIO N DOSE: Total DLP: 245.99 mGy*cm Estimated effective dose: (DLP x 0.015 x size factor) mSv CTDIvol has been reviewed. It is below the limit s set by the Radiation Protocol Committee (RPC). Dose modulation, iterative re construction, and/or weight based adjustment of the mA/kV was utilized to redu ce the radiation dose to as low as reasonably achievable. FINDINGS: Abs ence of intravenous contrast decreases sensitivity for detection of focal lesi ons and vascular pathology. LINES and TUBES: None. LOWER THORAX: Unr emarkable HEPATOBILIARY: No focal hepatic lesions. No biliary ductal d ilation. GALLBLADDER: Absent SPLEEN: No splenomegaly. PANCREAS: Limited evaluation without IV contrast. Atrophy of the body and tail relative to the pancreatic head. ADRENALS: No adrenal nodules KIDNEYS/UR ETERS: No hydronephrosis. No cystic or solid mass lesions. Multiple nonobstr ucting punctate calculi bilaterally. GI TRACT: No abnormal distention, wall thickening, or evidence of bowel obstruction. Appendix is normal. PELVIC ORGANS/BLADDER: Uterus is not visualized. No adnexal masses. LYMPH N ODES: No lymphadenopathy. VESSELS: Several upper abdominal collateral vesse ls again noted. No abdominal aortic aneurysm. PERITONEUM / RETROPERITONEU M: No free air or fluid. Stable scattered calcifications in the left abdomen. BONES: Unremarkable. SOFT TISSUES: Partially visualized breast implant s. IMPRESSION: 1. Indistinct pancreatic head and atrophy of the body and tail likely related to pancreatic cancer, not well evaluated on this noncontrast exam. 2. Nonobstructing renal calculi bilaterally. S igned by: DR. Andi Menezes MD on 06/18/2018 9:34 PM Dictated By: JESSICA MENEZES MD 33 Transcr ibed By: WAYNE on 06/18/182133 COPY TO: YONATAN SIM MD BASIC METABOLIC [id number] 07:47:00* Test Item Value Reference Range Comments SODIUM (BEAKER) (test zvht=662) 138 meq/L 136-145 POTASSIUM (BEAKER) (test kkfi=268) 3.5 meq/L 3.5-5.1 CHLORIDE (BEAKER) (test qqcw=664) 107 meq/L 98-107 CO2 (BEAKER) (test rxly=673) 24 meq/L 22-29 BLOOD UREA NITROGEN (BEAKER) (test rrme=862) 11 mg/dL 7-21 CREATININE (BEAKER) (test ajgu=418) 0.62 mg/dL 0.57-1.25 GLUCOSE RANDOM (BEAKER) (test zkif=021) 115 mg/dL 70-105 CALCIUM (BEAKER) (test ncph=447) 8.9 mg/dL 8.4-10.2 EGFR (BEAKER) (test gple=5416) 108 mL/min/1.73 sq m ESTIMATED GFR IS NOT ACCURATE CREATININE CLEARANCE IN PREDICTING GLOMERULAR FILTRATION RATE. ESTIMATED GFR IS NOT APPLICABLE FOR DIALYSIS PATIENTS. CBC W/PLT COUNT & AUTO [id number] 07:19:00* Test Item Value Reference Range Comments WHITE BLOOD CELL COUNT (BEAKER) (test txib=621) 4.9 K/ L 3.5-10.5 RED BLOOD CELL COUNT (BEAKER) (test adkv=147) 3.68 M/ L 3.93-5.22 HEMOGLOBIN (BEAKER) (test zfpp=147) 10.1 GM/DL 11.2-15.7 HEMATOCRIT (BEAKER) (test jitq=179) 32.2 % 34.1-44.9 MEAN CORPUSCULAR VOLUME (BEAKER) (test bens=742) 87.5 fL 79.4-94.8 MEAN CORPUSCULAR HEMOGLOBIN (BEAKER) (test esaz=603) 27.4 pg 25.6-32.2 MEAN CORPUSCULAR HEMOGLOBIN CONC (BEAKER) (test ighk=335) 31.4 GM/DL 32.2-35.5 RED CELL DISTRIBUTION WIDTH (BEAKER) (test fcel=906) 15.9 % 11.7-14.4 PLATELET COUNT (BEAKER) (test aprp=397) 198 K/CU MM 150-450 MEAN PLATELET VOLUME (BEAKER) (test ujma=462) 10.0 fL 9.4-12.3 NUCLEATED RED BLOOD CELLS (BEAKER) (test lxei=905) 0 /100 WBC 0-0 NEUTROPHILS RELATIVE PERCENT (BEAKER) (test ttpu=849) 61 % LYMPHOCYTES RELATIVE PERCENT (BEAKER) (test xkgl=817) 32 % MONOCYTES RELATIVE PERCENT (BEAKER) (test chsa=104) 2 % EOSINOPHILS RELATIVE PERCENT (BEAKER) (test ltim=576) 5 % BASOPHILS RELATIVE PERCENT (BEAKER) (test cmrr=988) 0 % NEUTROPHILS ABSOLUTE COUNT (BEAKER) (test eapj=626) 2.98 K/ L 1.56-6.13 LYMPHOCYTES ABSOLUTE COUNT (BEAKER) (test kupk=570) 1.56 K/ L 1.18-3.74 MONOCYTES ABSOLUTE COUNT (BEAKER) (test ipxf=549) 0.08 K/ L 0.24-0.36 EOSINOPHILS ABSOLUTE COUNT (BEAKER) (test vear=878) 0.22 K/ L 0.04-0.36 BASOPHILS ABSOLUTE COUNT (BEAKER) (test qgqr=992) 0.01 K/ L 0.01-0.08 IMMATURE GRANULOCYTES-RELATIVE PERCENT (BEAKER) (test aiuo=2953) 0 % 0-1 C. DIFFICILE GDH [id number] 21:33:00* Test Item Value Reference Range Comments CDT TOXIN (test vudt=[id number]) Negative Negative CDT GDH ANTIGEN (test jljf=[id number]) Positive Negative C. difficile present but toxin not detected. Indicates colonization with non-toxigenic strain or level of toxin below detectable levels. No need for enteric isolation. Treatment is rarely needed (only when strong clinical suspicion for Clostridium difficile infection) Testing performed by [employer] Rapid Cassette Assay. For GDH, published sensitivity of the assay is 98.7% compared to cytotoxicity testing. For Toxin AB, publishe d sensitivity is 87.8% and specificity 99.4% compared to cytotoxicity testing.Ve rification of kit performance was done by the [facility] Microbiology Lab prior to cl inical use.RAPID INFLUENZA A&B [id number] 18:09:00* Test Item Value Reference Range Comments RAPID INFLUENZA A AG (BEAKER) (test dwkr=6832) Negative Negative, Inconclusive RAPID INFLUENZA B AG (BEAKER) (test wgyb=3925) Negative Negative, Inconclusive [id number] 03:15:00* Test Item Value Reference Range Comments LIPASE (BEAKER) (test xpbo=460) 10 U/L 8-78 BASIC METABOLIC [id number] 03:15:00* Test Item Value Reference Range Comments SODIUM (BEAKER) (test crek=105) 139 meq/L 136-145 POTASSIUM (BEAKER) (test pogl=468) 3.9 meq/L 3.5-5.1 Specimen slightly hemolyzed CHLORIDE (BEAKER) (test euny=521) 109 meq/L 98-107 CO2 (BEAKER) (test kouk=588) 21 meq/L 22-29 BLOOD UREA NITROGEN (BEAKER) (test xnsr=069) 16 mg/dL 7-21 CREATININE (BEAKER) (test qvbj=316) 0.67 mg/dL 0.57-1.25 Specimen slightly hemolyzed GLUCOSE RANDOM (BEAKER) (test mxsn=823) 104 mg/dL 70-105 CALCIUM (BEAKER) (test kick=965) 8.5 mg/dL 8.4-10.2 EGFR (BEAKER) (test byty=2382) 99 mL/min/1.73 sq m ESTIMATED GFR IS NOT ACCURATE CREATININE CLEARANCE IN PREDICTING GLOMERULAR FILTRATION RATE. ESTIMATED GFR IS NOT APPLICABLE FOR DIALYSIS PATIENTS. HEPATIC FUNCTION [id number] 03:15:00* Test Item Value Reference Range Comments TOTAL PROTEIN (BEAKER) (test bofo=594) 7.2 gm/dL 6.0-8.3 Specimen slightly hemolyzed ALBUMIN (BEAKER) (test xads=8371) 3.9 g/dL 3.5-5.0 Specimen slightly hemolyzed BILIRUBIN TOTAL (BEAKER) (test prhh=285) 0.2 mg/dL 0.2-1.2 Specimen slightly hemolyzed BILIRUBIN DIRECT (BEAKER) (test mnmd=750) 0.1 mg/dL 0.1-0.5 Specimen slightly hemolyzed ALKALINE PHOSPHATASE (BEAKER) (test nvvl=606) 88 U/L 40-150 AST (SGOT) (BEAKER) (test czte=756) 23 U/L 5-34 Specimen slightly hemolyzed ALT (SGPT) (BEAKER) (test swir=570) 21 U/L 6-55 Specimen slightly hemolyzed PT/[id number] 03:12:00* Test Item Value Reference Range Comments PROTIME (BEAKER) (test ghaw=967) 13.5 seconds 11.7-14.7 INR (BEAKER) (test etjl=670) 1.0 <=5.9 PARTIAL THROMBOPLASTIN TIME (BEAKER) (test uqtq=202) 25.0 seconds 22.5-36.0 RECOMMENDED COUMADIN/WARFARIN INR THERAPY RANGESSTANDARD DOSE: 2.0 - 3.0 Inclu yossi: PROPHYLAXIS for venous thrombosis, systemic embolization; TREATMENT for [place] ous thrombosis and/or pulmonary embolus.HIGH RISK: Target INR is 2.5-3.5 for pat ients with mechanical heart valves. SCREEN, [id number] 03:09:00* Test Item Value Reference Range Comments TEST URINE (BEAKER) (test bhum=034) Negative URINALYSIS W/ REFLEX URINE [id number] 03:09:00* Test Item Value Reference Range Comments COLOR (BEAKER) (test aplj=372) Yellow CLARITY (BEAKER) (test ezat=526) Clear SPECIFIC GRAVITY UA (BEAKER) (test jstj=279) 1.020 1.001-1.035 PH UA (BEAKER) (test mzqa=019) 6.5 5.0-8.0 PROTEIN UA (BEAKER) (test ldiu=679) Negative Negative GLUCOSE UA (BEAKER) (test aaue=716) Negative Negative KETONES UA (BEAKER) (test zxiw=881) Negative Negative BILIRUBIN UA (BEAKER) (test veui=275) Negative Negative BLOOD UA (BEAKER) (test hfbn=684) Negative Negative NITRITE UA (BEAKER) (test smzj=423) Negative Negative LEUKOCYTE ESTERASE UA (BEAKER) (test sluu=379) Negative Negative UROBILINOGEN UA (BEAKER) (test lbob=432) 0.2 mg/dL 0.2-1.0 RBC UA (BEAKER) (test geay=649) < /HPF WBC UA (BEAKER) (test mdfa=801) 6 /HPF BACTERIA (BEAKER) (test xzix=609) Occasional MUCUS (BEAKER) (test grhw=8591) Rare SQUAMOUS EPITHELIAL (BEAKER) (test jmvr=841) 3 /HPF HYALINE CASTS (BEAKER) (test nkcv=422) 1 /LPF SOURCE(BEAKER) (test ujpo=0506) CBC W/PLT COUNT & AUTO [id number] 02:57:00* Test Item Value Reference Range Comments WHITE BLOOD CELL COUNT (BEAKER) (test auwn=505) 6.0 K/ L 3.5-10.5 RED BLOOD CELL COUNT (BEAKER) (test vtil=290) 3.70 M/ L 3.93-5.22 HEMOGLOBIN (BEAKER) (test guvh=040) 10.1 GM/DL 11.2-15.7 HEMATOCRIT (BEAKER) (test qfew=453) 31.5 % 34.1-44.9 MEAN CORPUSCULAR VOLUME (BEAKER) (test bisk=908) 85.1 fL 79.4-94.8 MEAN CORPUSCULAR HEMOGLOBIN (BEAKER) (test oatw=734) 27.3 pg 25.6-32.2 MEAN CORPUSCULAR HEMOGLOBIN CONC (BEAKER) (test lyts=298) 32.1 GM/DL 32.2-35.5 RED CELL DISTRIBUTION WIDTH (BEAKER) (test dkrt=123) 16.1 % 11.7-14.4 PLATELET COUNT (BEAKER) (test ucqc=610) 240 K/CU MM 150-450 MEAN PLATELET VOLUME (BEAKER) (test uvmd=695) 10.5 fL 9.4-12.3 NUCLEATED RED BLOOD CELLS (BEAKER) (test bwar=042) 0 /100 WBC 0-0 NEUTROPHILS RELATIVE PERCENT (BEAKER) (test npoq=717) 58 % LYMPHOCYTES RELATIVE PERCENT (BEAKER) (test xdmu=713) 35 % MONOCYTES RELATIVE PERCENT (BEAKER) (test obvg=491) 5 % EOSINOPHILS RELATIVE PERCENT (BEAKER) (test swmu=607) 2 % BASOPHILS RELATIVE PERCENT (BEAKER) (test ksro=383) 0 % NEUTROPHILS ABSOLUTE COUNT (BEAKER) (test hxdj=065) 3.48 K/ L 1.56-6.13 LYMPHOCYTES ABSOLUTE COUNT (BEAKER) (test ntex=032) 2.08 K/ L 1.18-3.74 MONOCYTES ABSOLUTE COUNT (BEAKER) (test bfzs=340) 0.32 K/ L 0.24-0.36 EOSINOPHILS ABSOLUTE COUNT (BEAKER) (test psin=737) 0.11 K/ L 0.04-0.36 BASOPHILS ABSOLUTE COUNT (BEAKER) (test lwop=082) 0.02 K/ L 0.01-0.08 IMMATURE GRANULOCYTES-RELATIVE PERCENT (BEAKER) (test ecwq=0629) 0 % 0-1 ABDOMEN-1VIEW (KUB)2018-05-30 11:11:00 [place] [address] Patient Name: BELIA VIGIL MR #: [id number] : 1980 Age/Sex: 37/F Req #: [id number] Adm Physician: RODDY MALAVE MD Ordered by: Raymond Luke RUBBER BELT SPLICER Report #: [id number] Location: [facility] Room/Bed: [place] [address] Procedure: [id number] D X/ABDOMEN-1VIEW (KUB) Exam Date: 05/30/18 Exam Time: 0840 REPORT STATUS: Signed PROC EDURE: X-RAY ABDOMEN - KUB COMPARISON: Abdominal radiograph 02/13/2018, CT abdomen and pelvis without contrast 05/14/2018. INDICATIONS: abdomi nal pain FINDINGS: The bowel gas pattern shows no dilated, air-filled loops of bowel. Gas and fecal material are noted throughout the rectum and l arge bowel. No mass effect or organomegaly. Surgical clips project over the r ight upper quadrant of the abdomen likely related to prior cholecystectomy. Tubal ligation devices project over the pelvis. Regional skeletal struct ures are intact. CONCLUSION: Nonobstructive bowel gas pattern. Dictate d by: Dasha Shetty M.D. on 05/30/2018 at 11:11 Electronically approved by : Dasha Shetty M.D. on 05/30/2018 at 11:11 Dictated By: DASHA YOO MD 1111 Transcribe d By: KALINA on 05/30/18 1111 COPY TO: RAYMOND LUKE NP BLOOD [id number] 23:01:00* Test Item Value Reference Range Comments CULTURE (BEAKER) (test dfmi=9108) No growth in 5 days OVA AND PARASITE [id number] 08:16:00* Test Item Value Reference Range Comments DIRECT SMEAR - O\\T\\P (BEAKER) (test oaba=276) No ova or parasites seen Test not performed at [facility]. See scanned report. CONCENTRATE SMEAR - O\\T\\P (BEAKER) (test kqmx=415) No ova or parasites seen No ova or parasites seen TRICHROME SMEAR - O\\T\\P (BEAKER) (test soed=090) No ova or parasites seen No ova or parasites seen URINALYSIS W/ [id number] 14:21:00* Test Item Value Reference Range Comments COLOR (BEAKER) (test mhkc=050) [place] CLARITY (BEAKER) (test iyaz=192) Clear SPECIFIC GRAVITY UA (BEAKER) (test fust=442) 1.016 1.001-1.035 PH UA (BEAKER) (test tymw=374) 6.5 5.0-8.0 PROTEIN UA (BEAKER) (test auwt=204) 50 mg/dL Negative GLUCOSE UA (BEAKER) (test eulh=617) Negative Negative KETONES UA (BEAKER) (test ekpe=876) Negative Negative BILIRUBIN UA (BEAKER) (test ofib=765) Negative Negative BLOOD UA (BEAKER) (test hduv=874) Large Negative NITRITE UA (BEAKER) (test uwtt=021) Negative Negative LEUKOCYTE ESTERASE UA (BEAKER) (test kzdh=228) Trace Negative UROBILINOGEN UA (BEAKER) (test qmfl=166) 0.2 mg/dL 0.2-1.0 RBC UA (BEAKER) (test vtyt=220) > /HPF WBC UA (BEAKER) (test zuxo=641) 1 /HPF MUCUS (BEAKER) (test bqhm=9610) Rare SQUAMOUS EPITHELIAL (BEAKER) (test ljmg=785) 1 /HPF SOURCE(BEAKER) (test epvl=3382) CT, ABDOMEN - PELVIS, PANCREAS [id number] 15:44:00Reason for exam:-> known pancreatic adenocarcinoma, pancreatitis, persistenta abd painFINAL REPORT TECHNIQUE: CT of the abdomen and pelvis WITH intravenous contrast and WITHOUT oral contrast. Dose modulation, iterative reconstruction, and/or weight-based adjustment of the mA/kV was utilized to reduce the radiation dose to as low as reasonably achievable. INDICATION: Known pancreatic adenocarcinoma, pancreatitis, persistent abdominal pain. COMPARISON: None. F INDINGS: LOWER THORAX: Unremarkable. HEPATOBILIARY: The liver is diffusely decre ased in attenuation. No focal hepatic lesions. Prior cholecystectomy. No biliary ductal dilatation.SPLEEN: No splenomegaly.PANCREAS: The pancreas is atrophic. T here is a small amount of soft tissue which extends in the hepatic hilum. Which measures up to 2 cm. Previously, this mass measured up to 6 cm. This appears to encase the common hepatic artery as seen on axial image 36. ADRENALS: No adrenal nodules.KIDNEYS/URETERS: No hydronephrosis or masses. Four nonobstructing stone s in the right measure up to 3 mm. Two nonobstructing stones in the left are pun ctate. Right renal cortical scarring.PELVIC ORGANS/BLADDER: A left adnexal lesio n with some mild internal complexity measures 2.9 cm and is likely a hemorrhagic cyst. Prior hysterectomy. PERITONEUM/RETROPERITONEUM: Small volume free fluid i n the pelvis.LYMPH NODES: No lymphadenopathy. 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 GI TRACT: No distention or wall thickening. BONES AND SOFT TISSUES: Unremarkable. IMPRESSION : 1.There is some residual mass in the hepatic hilum which appears to encase the common hepatic artery and abuts the main portal vein. The pancreas is atrophic. The mass has markedly decreased in size and now only measures approximately 2 c m. 2.Diffuse fatty infiltration of the liver. 3.There is likely a 2.9 cm left ov doug hemorrhagic cyst. Signed: Kimani Paez MDReport Verified Date/Time: 018 15:44:46 Reading Location: [facility] C013Y CT Body Reading Room Electronic ally signed by: KIMANI PAEZ MD on 05/27/2018 03:44 PM C. DIFFICILE GDH [id number] 10:56:00* Test Item Value Reference Range Comments CDT TOXIN (test aopv=[id number]) Negative Negative CDT GDH ANTIGEN (test vuah=[id number]) Positive Negative C. difficile present but toxin not detected. Indicates colonization with non-toxigenic strain or level of toxin below detectable levels. No need for enteric isolation. Treatment is rarely needed (only when strong clinical suspicion for Clostridium difficile infection) Testing performed by [employer] Rapid Cassette Assay. For GDH, published sensitivity of the assay is 98.7% compared to cytotoxicity testing. For Toxin AB, publishe d sensitivity is 87.8% and specificity 99.4% compared to cytotoxicity testing.Ve rification of kit performance was done by the [facility] Microbiology Lab prior to cl inical use.URINALYSIS WITH MICROSCOPIC IF [id number] 00:34:00* Test Item Value Reference Range Comments COLOR (BEAKER) (test tkwi=121) Yellow CLARITY (BEAKER) (test myrh=132) Hazy SPECIFIC GRAVITY UA (BEAKER) (test gztx=020) 1.015 1.001-1.035 PH UA (BEAKER) (test btnr=937) 6.5 5.0-8.0 PROTEIN UA (BEAKER) (test qdjb=731) Negative Negative GLUCOSE UA (BEAKER) (test koay=999) Negative Negative KETONES UA (BEAKER) (test gvhv=167) Negative Negative BILIRUBIN UA (BEAKER) (test skqj=858) Negative Negative BLOOD UA (BEAKER) (test hzso=623) Negative Negative NITRITE UA (BEAKER) (test nvtg=652) Negative Negative LEUKOCYTE ESTERASE UA (BEAKER) (test wbqu=062) Negative Negative UROBILINOGEN UA (BEAKER) (test caud=905) 0.2 mg/dL 0.2-1.0 SOURCE(BEAKER) (test cfgp=3399) [id number] 08:33:00* Test Item Value Reference Range Comments LIPASE (BEAKER) (test soad=169) 6 U/L 8-78 BASIC METABOLIC [id number] 08:33:00* Test Item Value Reference Range Comments SODIUM (BEAKER) (test ciqm=093) 139 meq/L 136-145 POTASSIUM (BEAKER) (test zahu=876) 4.1 meq/L 3.5-5.1 CHLORIDE (BEAKER) (test fyid=316) 108 meq/L 98-107 CO2 (BEAKER) (test bqou=469) 24 meq/L 22-29 BLOOD UREA NITROGEN (BEAKER) (test ldbz=368) 10 mg/dL 7-21 CREATININE (BEAKER) (test teba=345) 0.75 mg/dL 0.57-1.25 GLUCOSE RANDOM (BEAKER) (test dosj=124) 108 mg/dL 70-105 CALCIUM (BEAKER) (test bstp=859) 10.0 mg/dL 8.4-10.2 EGFR (BEAKER) (test caes=4216) 86 mL/min/1.73 sq m ESTIMATED GFR IS NOT ACCURATE CREATININE CLEARANCE IN PREDICTING GLOMERULAR FILTRATION RATE. ESTIMATED GFR IS NOT APPLICABLE FOR DIALYSIS PATIENTS. HEPATIC FUNCTION [id number] 08:33:00* Test Item Value Reference Range Comments TOTAL PROTEIN (BEAKER) (test wher=802) 8.1 gm/dL 6.0-8.3 ALBUMIN (BEAKER) (test tgyw=3255) 4.6 g/dL 3.5-5.0 BILIRUBIN TOTAL (BEAKER) (test ofsy=016) 0.4 mg/dL 0.2-1.2 BILIRUBIN DIRECT (BEAKER) (test wvms=264) 0.2 mg/dL 0.1-0.5 ALKALINE PHOSPHATASE (BEAKER) (test zwvy=607) 89 U/L 40-150 AST (SGOT) (BEAKER) (test gjpu=270) 32 U/L 5-34 ALT (SGPT) (BEAKER) (test vjfl=475) 26 U/L 6-55 CBC W/PLT COUNT & AUTO [id number] 08:14:00* Test Item Value Reference Range Comments WHITE BLOOD CELL COUNT (BEAKER) (test ncmd=394) 7.9 K/ L 3.5-10.5 RED BLOOD CELL COUNT (BEAKER) (test prwm=706) 4.27 M/ L 3.93-5.22 HEMOGLOBIN (BEAKER) (test rfva=329) 11.6 GM/DL 11.2-15.7 HEMATOCRIT (BEAKER) (test iwqm=391) 36.0 % 34.1-44.9 MEAN CORPUSCULAR VOLUME (BEAKER) (test gnuv=103) 84.3 fL 79.4-94.8 MEAN CORPUSCULAR HEMOGLOBIN (BEAKER) (test pqgb=035) 27.2 pg 25.6-32.2 MEAN CORPUSCULAR HEMOGLOBIN CONC (BEAKER) (test cqrm=746) 32.2 GM/DL 32.2-35.5 RED CELL DISTRIBUTION WIDTH (BEAKER) (test gius=415) 17.0 % 11.7-14.4 PLATELET COUNT (BEAKER) (test cgpo=832) 278 K/CU MM 150-450 MEAN PLATELET VOLUME (BEAKER) (test kglo=193) 9.3 fL 9.4-12.3 NUCLEATED RED BLOOD CELLS (BEAKER) (test dihv=303) 0 /100 WBC 0-0 NEUTROPHILS RELATIVE PERCENT (BEAKER) (test xasf=201) 60 % LYMPHOCYTES RELATIVE PERCENT (BEAKER) (test xaiv=588) 27 % MONOCYTES RELATIVE PERCENT (BEAKER) (test gozt=298) 9 % EOSINOPHILS RELATIVE PERCENT (BEAKER) (test uckj=212) 4 % BASOPHILS RELATIVE PERCENT (BEAKER) (test mzyb=310) 0 % NEUTROPHILS ABSOLUTE COUNT (BEAKER) (test vijs=221) 4.73 K/ L 1.56-6.13 LYMPHOCYTES ABSOLUTE COUNT (BEAKER) (test qdzi=529) 2.10 K/ L 1.18-3.74 MONOCYTES ABSOLUTE COUNT (BEAKER) (test uvik=583) 0.72 K/ L 0.24-0.36 EOSINOPHILS ABSOLUTE COUNT (BEAKER) (test aude=657) 0.31 K/ L 0.04-0.36 BASOPHILS ABSOLUTE COUNT (BEAKER) (test awgg=936) 0.03 K/ L 0.01-0.08 IMMATURE GRANULOCYTES-RELATIVE PERCENT (BEAKER) (test izmm=1992) 0 % 0-1 CT ABDOMEN/PELVIS [id number] 20:33:00 [place] [address] Patient Name: BELIA VIGIL MR #: [id number] : 1980 Age/Sex: 37/F Req #: [id number] Adm Physician: CHELSIE GABRIEL MD Ordered by: SANJUANA NIEVES NP Report #: [id number] Location: [place] [id number] Room/Bed: [facility] Procedure: 1105-[address]/CT ABDOMEN/PELVIS WO Exam Date: 05/14/18 Exam Time: 2009 REPORT STATUS: Signed ADDENDUM #1 The following addendum is being made to comply with coding criteria, and does not substantially change the findings or recommendations of the original report All CT scans are performed using radiation dose reduction techniques. Technical factors are evaluated and adju sted to ensure appropriate moderation of exposure. Automated dose management t echnology is applied to adjust the radiation dose to minimize exposure while a chieving a diagnostic-quality image. Signed by: Dr. Natalie Magallanes M.D. on 05/21/2018 1:27 PM ORIGINAL REPORT EXAM: CT Abdomen an d Pelvis WITHOUT contrast INDICATION: Abdominal pain. Pancreatic cancer. C OMPARISON: 01/12/2018 TECHNIQUE: Abdomen and pelvis were scanned utilizing a mul tidetector helical scanner from the lung base to the pubic symphysis without a dministration of IV contrast. Absence of intravenous contrast decreases sensit ivity for detection of focal lesions and vascular pathology. Coronal and sagit darci reformations were obtained. Routine protocol was performed. IV CONTRAST: None. ORAL CONTRAST: Gastrografin RADI ATION DOSE: Total DLP: 327.75 mGy*cm Estimated effective dose: (D LP x 0.015 x size factor) mSv COMPLICATIONS: None FINDINGS: LOWER THORAX: No consolidations LIVER: No masses BILIARY: Cholecystectom y. No ductal dilation. SPLEEN: No masses PANCREAS: Limited evaluation wi thout IV contrast. Atrophy of the body and tail compared to the head. ADR ENALS: No nodules RIGHT KIDNEY: There are two, 3 mm stones in the inferior pole of the right kidney, stable. No ureteral stones. No hydronephrosis. LEFT KIDNEY: Several punctate nonobstructing left renal stones. GI TRACT: No wall thickening or obstruction. VESSELS: No abdominal aortic an eurysm. Several upper abdominal collateral vessels. PERITONEUM/RETROPERITONE UM: No free air or fluid. There are a few coarse calcifications in the left ab domen. LYMPH NODES: No lymphadenopathy REPRODUCTIVE ORGANS: The uteru s is not visualized. No adnexal masses. BLADDER: Normal SOFT TISSUES: Nor mal BONES: No suspicious bone lesions. IMPRESSION: 1. Indistinct dumont creatic head and atrophy of the body and tail likely related to patient's know n pancreatic cancer. This is not evaluated on this noncontrast exam. 2. N onspecific coarse calcifications in the left abdomen. 3. Punctate nonobstru cting right and left renal stones. Signed by: Dr. Natalie Magallanes M.D. on 05/14 8:39 PM Dictated By: NATALIE MAGALLANES MD, MD [id number] Transcribed By: WAYNE on 05/14/182038 COPY TO: SANJUANA NIEVES NP CBC W/PLT COUNT & AUTO DIFFERENTIAL 2018-05-04 07:21:00* Test Item Value Reference Range Comments WHITE BLOOD CELL COUNT (BEAKER) (test zdib=175) 5.0 K/ L 3.5-10.5 RED BLOOD CELL COUNT (BEAKER) (test hxmr=426) 3.70 M/ L 3.93-5.22 HEMOGLOBIN (BEAKER) (test biep=151) 10.1 GM/DL 11.2-15.7 HEMATOCRIT (BEAKER) (test ocjv=628) 32.9 % 34.1-44.9 MEAN CORPUSCULAR VOLUME (BEAKER) (test zklc=608) 88.9 fL 79.4-94.8 MEAN CORPUSCULAR HEMOGLOBIN (BEAKER) (test mpni=718) 27.3 pg 25.6-32.2 MEAN CORPUSCULAR HEMOGLOBIN CONC (BEAKER) (test kask=038) 30.7 GM/DL 32.2-35.5 RED CELL DISTRIBUTION WIDTH (BEAKER) (test ptkt=023) 18.3 % 11.7-14.4 PLATELET COUNT (BEAKER) (test tuze=508) 221 K/CU MM 150-450 MEAN PLATELET VOLUME (BEAKER) (test vqrx=945) 10.5 fL 9.4-12.3 NUCLEATED RED BLOOD CELLS (BEAKER) (test mbri=088) 0 /100 WBC 0-0 NEUTROPHILS RELATIVE PERCENT (BEAKER) (test vxnf=621) 34 % LYMPHOCYTES RELATIVE PERCENT (BEAKER) (test yrcg=226) 42 % MONOCYTES RELATIVE PERCENT (BEAKER) (test acfq=749) 19 % EOSINOPHILS RELATIVE PERCENT (BEAKER) (test txvm=469) 2 % BASOPHILS RELATIVE PERCENT (BEAKER) (test hnqg=907) 1 % NEUTROPHILS ABSOLUTE COUNT (BEAKER) (test bxxi=932) 1.68 K/ L 1.56-6.13 LYMPHOCYTES ABSOLUTE COUNT (BEAKER) (test agiu=116) 2.08 K/ L 1.18-3.74 MONOCYTES ABSOLUTE COUNT (BEAKER) (test arqq=486) 0.94 K/ L 0.24-0.36 EOSINOPHILS ABSOLUTE COUNT (BEAKER) (test grci=619) 0.12 K/ L 0.04-0.36 BASOPHILS ABSOLUTE COUNT (BEAKER) (test zjsi=648) 0.03 K/ L 0.01-0.08 IMMATURE GRANULOCYTES-RELATIVE PERCENT (BEAKER) (test dzmz=8126) 2 % 0-1 [id number] 06:51:00* Test Item Value Reference Range Comments MAGNESIUM (BEAKER) (test apeq=628) 2.3 mg/dL 1.6-2.6 Specimen slightly hemolyzed [id number] 06:51:00* Test Item Value Reference Range Comments PHOSPHORUS (BEAKER) (test njbm=499) 4.7 mg/dL 2.3-4.7 Specimen slightly hemolyzed BASIC METABOLIC [id number] 06:51:00* Test Item Value Reference Range Comments SODIUM (BEAKER) (test ffmz=320) 135 meq/L 136-145 POTASSIUM (BEAKER) (test auzp=148) 4.2 meq/L 3.5-5.1 Specimen slightly hemolyzed CHLORIDE (BEAKER) (test nlcs=212) 102 meq/L 98-107 CO2 (BEAKER) (test vdmm=334) 25 meq/L 22-29 BLOOD UREA NITROGEN (BEAKER) (test ckfc=328) 9 mg/dL 7-21 CREATININE (BEAKER) (test vgbu=610) 0.67 mg/dL 0.57-1.25 Specimen slightly hemolyzed GLUCOSE RANDOM (BEAKER) (test aawz=335) 114 mg/dL 70-105 CALCIUM (BEAKER) (test snla=819) 9.1 mg/dL 8.4-10.2 EGFR (BEAKER) (test weve=9185) 99 mL/min/1.73 sq m ESTIMATED GFR IS NOT ACCURATE CREATININE CLEARANCE IN PREDICTING GLOMERULAR FILTRATION RATE. ESTIMATED GFR IS NOT APPLICABLE FOR DIALYSIS PATIENTS. CBC W/PLT COUNT & AUTO [id number] 06:10:00* Test Item Value Reference Range Comments WHITE BLOOD CELL COUNT (BEAKER) (test semm=605) 5.1 K/ L 3.5-10.5 RED BLOOD CELL COUNT (BEAKER) (test wqjd=646) 3.34 M/ L 3.93-5.22 HEMOGLOBIN (BEAKER) (test wvlw=785) 9.4 GM/DL 11.2-15.7 HEMATOCRIT (BEAKER) (test zkbg=720) 30.0 % 34.1-44.9 MEAN CORPUSCULAR VOLUME (BEAKER) (test rajt=837) 89.8 fL 79.4-94.8 MEAN CORPUSCULAR HEMOGLOBIN (BEAKER) (test vplw=361) 28.1 pg 25.6-32.2 MEAN CORPUSCULAR HEMOGLOBIN CONC (BEAKER) (test taty=349) 31.3 GM/DL 32.2-35.5 RED CELL DISTRIBUTION WIDTH (BEAKER) (test zfpv=384) 18.5 % 11.7-14.4 PLATELET COUNT (BEAKER) (test nvfs=828) 217 K/CU MM 150-450 MEAN PLATELET VOLUME (BEAKER) (test dsrl=047) 10.5 fL 9.4-12.3 NUCLEATED RED BLOOD CELLS (BEAKER) (test eoqz=809) 1 /100 WBC 0-0 NEUTROPHILS RELATIVE PERCENT (BEAKER) (test skfs=228) 44 % LYMPHOCYTES RELATIVE PERCENT (BEAKER) (test sdxu=183) 36 % MONOCYTES RELATIVE PERCENT (BEAKER) (test xixk=135) 16 % EOSINOPHILS RELATIVE PERCENT (BEAKER) (test iypv=277) 1 % BASOPHILS RELATIVE PERCENT (BEAKER) (test ydxa=396) 0 % NEUTROPHILS ABSOLUTE COUNT (BEAKER) (test sdkm=601) 2.27 K/ L 1.56-6.13 LYMPHOCYTES ABSOLUTE COUNT (BEAKER) (test zmal=612) 1.85 K/ L 1.18-3.74 MONOCYTES ABSOLUTE COUNT (BEAKER) (test abas=057) 0.82 K/ L 0.24-0.36 EOSINOPHILS ABSOLUTE COUNT (BEAKER) (test pjun=478) 0.07 K/ L 0.04-0.36 BASOPHILS ABSOLUTE COUNT (BEAKER) (test fvuh=415) 0.02 K/ L 0.01-0.08 IMMATURE GRANULOCYTES-RELATIVE PERCENT (BEAKER) (test irme=5189) 2 % 0-1 CBC W/PLT COUNT & AUTO [id number] 16:43:00* Test Item Value Reference Range Comments WHITE BLOOD CELL COUNT (BEAKER) (test tlvs=535) 6.1 K/ L 3.5-10.5 RED BLOOD CELL COUNT (BEAKER) (test uwcq=100) 3.45 M/ L 3.93-5.22 HEMOGLOBIN (BEAKER) (test bwga=565) 9.5 GM/DL 11.2-15.7 HEMATOCRIT (BEAKER) (test ikzh=689) 30.1 % 34.1-44.9 MEAN CORPUSCULAR VOLUME (BEAKER) (test yesq=600) 87.2 fL 79.4-94.8 MEAN CORPUSCULAR HEMOGLOBIN (BEAKER) (test jgxu=198) 27.5 pg 25.6-32.2 MEAN CORPUSCULAR HEMOGLOBIN CONC (BEAKER) (test yjsv=005) 31.6 GM/DL 32.2-35.5 RED CELL DISTRIBUTION WIDTH (BEAKER) (test kzbl=850) 18.6 % 11.7-14.4 PLATELET COUNT (BEAKER) (test yzch=999) 233 K/CU MM 150-450 MEAN PLATELET VOLUME (BEAKER) (test yfxs=021) 9.7 fL 9.4-12.3 NUCLEATED RED BLOOD CELLS (BEAKER) (test gvfd=261) 1 /100 WBC 0-0 NEUTROPHILS RELATIVE PERCENT (BEAKER) (test ebjs=551) 60 % LYMPHOCYTES RELATIVE PERCENT (BEAKER) (test whpd=837) 21 % MONOCYTES RELATIVE PERCENT (BEAKER) (test nppx=725) 17 % EOSINOPHILS RELATIVE PERCENT (BEAKER) (test vavj=378) 0 % BASOPHILS RELATIVE PERCENT (BEAKER) (test leoy=442) 0 % NEUTROPHILS ABSOLUTE COUNT (BEAKER) (test zxxs=446) 3.66 K/ L 1.56-6.13 LYMPHOCYTES ABSOLUTE COUNT (BEAKER) (test fnqi=293) 1.29 K/ L 1.18-3.74 MONOCYTES ABSOLUTE COUNT (BEAKER) (test ovbw=041) 1.04 K/ L 0.24-0.36 EOSINOPHILS ABSOLUTE COUNT (BEAKER) (test grvr=507) 0.01 K/ L 0.04-0.36 BASOPHILS ABSOLUTE COUNT (BEAKER) (test dzjm=297) 0.02 K/ L 0.01-0.08 IMMATURE GRANULOCYTES-RELATIVE PERCENT (BEAKER) (test htwk=7912) 1 % 0-1 URINALYSIS W/ REFLEX URINE [id number] 04:00:00* Test Item Value Reference Range Comments COLOR (BEAKER) (test vvae=956) Yellow CLARITY (BEAKER) (test gxng=499) Clear SPECIFIC GRAVITY UA (BEAKER) (test ragz=050) 1.031 1.001-1.035 PH UA (BEAKER) (test vwbv=513) 8.5 5.0-8.0 PROTEIN UA (BEAKER) (test zqqg=899) Negative Negative GLUCOSE UA (BEAKER) (test ksgl=871) 30 mg/dL Negative KETONES UA (BEAKER) (test rhsz=840) Negative Negative BILIRUBIN UA (BEAKER) (test msns=344) Negative Negative BLOOD UA (BEAKER) (test nzld=343) Negative Negative NITRITE UA (BEAKER) (test leym=233) Negative Negative LEUKOCYTE ESTERASE UA (BEAKER) (test vifa=317) Negative Negative UROBILINOGEN UA (BEAKER) (test hypo=608) 0.2 mg/dL 0.2-1.0 RBC UA (BEAKER) (test ymkn=253) < /HPF WBC UA (BEAKER) (test etyl=946) 3 /HPF BACTERIA (BEAKER) (test qink=289) Rare SQUAMOUS EPITHELIAL (BEAKER) (test ttik=766) 1 /HPF SOURCE(BEAKER) (test tpap=6932) CT, ABDOMEN, WITH [id number] 01:29:00Rule out pancreatitisReason for exam:->pancreatitiFINAL REPORT CLINICAL HISTORY: Pancreatitis FINDINGS: Multiple axial images of the abdomen were performed after the uncomplicated administration of IV contrast. Oral contrast was not given. This exam was performed according to our departmental dose-optimization program, which includes automated exposure control, adjustment of the mA and/or kV according to patient size and/or use of the iterative reconstruction technique. Comparison:None. Lower chest: Curvilinear atelectasis in the lung bases. No pleural effusion or pneumothorax. Visualized cardiac contours normal. Partially visualized breast prostheses Liver: The right hepatic margin measures 20 cm in craniocaudal dimension, enlarged. There is low-density of the liver parenchyma, consistent with steatosis. Gallbladder and biliary tree: Previous cholecystectomy Spleen: No significant findings. Adrenal Glands: No significant findings. Kidneys and ureters: Bilateral nonobstructing kidney stones, the largest in the inferior right kidney measuring 4 mm. Stomach and Duodenum: No significant findings. Pancreas: The pancreas is atrophic. There is no peripancreatic inflammatory fat stranding. No retroperitoneal fluid collection is present. Bowel: No significant findings. Appendix: Nonvisualized. No pericecal inflammatory changes. Major vascular structures: No significant f indings. Other: No free air, fluid or adenopathy Skeleton: No acute bony abnorma lity. IMPRESSION: Atrophic pancreas, nonspecific. There is no peripancreatic inf lammatory change or fluid collection. Hepatomegaly with CT evidence of hepatic s teatosis. Bilateral nonobstructing kidney stones. Postsurgical changes, as descr ibed. Signed: Nelida Clark MDReport Verified Date/Time: 05/02/2018 01:29:49 Re ading Location: [address] Reading Room W/PLT COUNT & AUTO [id number] 13:29:00* Test Item Value Reference Range Comments WHITE BLOOD CELL COUNT (BEAKER) (test vffw=631) 3.2 K/ L 3.5-10.5 RED BLOOD CELL COUNT (BEAKER) (test chtn=673) 3.50 M/ L 3.93-5.22 HEMOGLOBIN (BEAKER) (test ogne=062) 9.9 GM/DL 11.2-15.7 HEMATOCRIT (BEAKER) (test ukcn=099) 31.5 % 34.1-44.9 MEAN CORPUSCULAR VOLUME (BEAKER) (test suml=384) 90.0 fL 79.4-94.8 MEAN CORPUSCULAR HEMOGLOBIN (BEAKER) (test kbjv=703) 28.3 pg 25.6-32.2 MEAN CORPUSCULAR HEMOGLOBIN CONC (BEAKER) (test wnjt=167) 31.4 GM/DL 32.2-35.5 RED CELL DISTRIBUTION WIDTH (BEAKER) (test fiye=765) 18.4 % 11.7-14.4 PLATELET COUNT (BEAKER) (test qrda=905) 250 K/CU MM 150-450 MEAN PLATELET VOLUME (BEAKER) (test lung=057) 9.8 fL 9.4-12.3 NUCLEATED RED BLOOD CELLS (BEAKER) (test lnvj=854) 1 /100 WBC 0-0 (CELLAVISION MANUAL DIFF)2018-05-01 13:29:00* Test Item Value Reference Range Comments NEUTROPHILS - REL (CELLAVISION)(BEAKER) (test ilsf=4668) 25 % LYMPHOCYTES - REL (CELLAVISION)(BEAKER) (test jhew=1124) 61 % MONOCYTES - REL (CELLAVISION)(BEAKER) (test vktw=6031) 7 % EOSINOPHILS - REL (CELLAVISION)(BEAKER) (test ftya=2441) 6 % METAMYELOCYTES - REL (CELLAVISION)(BEAKER) (test zece=6958) 1 % 0-0 NEUTROPHILS - ABS (CELLAVISION)(BEAKER) (test excu=9042) 0.80 K/ul 1.56-6.13 LYMPHOCYTES - ABS (CELLAVISION)(BEAKER) (test oekn=6379) 1.95 K/ul 1.18-3.74 MONOCYTES - ABS (CELLAVISION)(BEAKER) (test bylv=7025) 0.22 K/uL 0.24-0.36 EOSINOPHILS - ABS (CELLAVISION)(BEAKER) (test yyex=6422) 0.19 K/uL 0.04-0.36 METAMYELOCYTES - ABS (CELLAVISION)(BEAKER) (test pzro=4032) 0.03 K/uL 0.00-0.00 TOTAL COUNTED (BEAKER) (test noqi=4197) 100 WBC MORPHOLOGY (BEAKER) (test qzyl=869) Normal PLT MORPHOLOGY (BEAKER) (test molv=334) Normal POLYCHROMATOPHILLIC RBCS(BEAKER) (test hlnx=309) 2+ moderate ANISOCYTOSIS (BEAKER) (test wtts=498) 2+ moderate POIKILOCYTES (BEAKER) (test xuwp=542) 2+ moderate TARGET CELLS (BEAKER) (test zlzr=548) 2+ moderate ARTIFACT (CELLAVISION)(BEAKER) (test xfrl=9668) Present PLATELET CONCENTRATION (CELLAVISION)(BEAKER) (test xmra=0618) Adequate Received comment: User comments: Slide comments: [id number] 20:28:00* Test Item Value Reference Range Comments LIPASE (BEAKER) (test hbic=604) 8 U/L 8-78 [id number] 20:28:00* Test Item Value Reference Range Comments AMYLASE (BEAKER) (test ochv=658) 42 U/L 25-125 Specimen slightly hemolyzed BLOOD [id number] 18:00:00* Test Item Value Reference Range Comments CULTURE (BEAKER) (test ynis=7147) No growth in 5 days BLOOD [id number] 12:00:00* Test Item Value Reference Range Comments CULTURE (BEAKER) (test zvmb=5370) No growth in 5 days CBC W/PLT COUNT & AUTO [id number] 10:55:00* Test Item Value Reference Range Comments WHITE BLOOD CELL COUNT (BEAKER) (test wntg=559) 3.0 K/ L 3.5-10.5 RED BLOOD CELL COUNT (BEAKER) (test gbfg=203) 3.33 M/ L 3.93-5.22 HEMOGLOBIN (BEAKER) (test sasy=824) 9.1 GM/DL 11.2-15.7 HEMATOCRIT (BEAKER) (test ipvn=533) 29.3 % 34.1-44.9 MEAN CORPUSCULAR VOLUME (BEAKER) (test mcjf=830) 88.0 fL 79.4-94.8 MEAN CORPUSCULAR HEMOGLOBIN (BEAKER) (test ojrh=351) 27.3 pg 25.6-32.2 MEAN CORPUSCULAR HEMOGLOBIN CONC (BEAKER) (test cdpn=656) 31.1 GM/DL 32.2-35.5 RED CELL DISTRIBUTION WIDTH (BEAKER) (test gztb=845) 18.2 % 11.7-14.4 PLATELET COUNT (BEAKER) (test vjgs=131) 228 K/CU MM 150-450 MEAN PLATELET VOLUME (BEAKER) (test qewn=000) 9.4 fL 9.4-12.3 NUCLEATED RED BLOOD CELLS (BEAKER) (test yyny=557) 1 /100 WBC 0-0 (CELLAVISION MANUAL DIFF)2018-04-30 10:55:00* Test Item Value Reference Range Comments NEUTROPHILS - REL (CELLAVISION)(BEAKER) (test snmc=5117) 14 % LYMPHOCYTES - REL (CELLAVISION)(BEAKER) (test dfag=7247) 64 % MONOCYTES - REL (CELLAVISION)(BEAKER) (test avac=0781) 10 % EOSINOPHILS - REL (CELLAVISION)(BEAKER) (test blqs=6088) 3 % METAMYELOCYTES - REL (CELLAVISION)(BEAKER) (test oxwb=1807) 1 % 0-0 BANDS - REL (CELLAVISION)(BEAKER) (test wyka=9254) 9 % 0-10 NEUTROPHILS - ABS (CELLAVISION)(BEAKER) (test upyz=4595) 0.42 K/ul 1.56-6.13 LYMPHOCYTES - ABS (CELLAVISION)(BEAKER) (test npkw=3555) 1.92 K/ul 1.18-3.74 MONOCYTES - ABS (CELLAVISION)(BEAKER) (test vogh=7570) 0.30 K/uL 0.24-0.36 EOSINOPHILS - ABS (CELLAVISION)(BEAKER) (test vvnu=5305) 0.09 K/uL 0.04-0.36 METAMYELOCYTES - ABS (CELLAVISION)(BEAKER) (test metv=9424) 0.03 K/uL 0.00-0.00 BANDS - ABS (CELLAVISION)(BEAKER) (test tvkm=8375) 0.27 K/uL 0.00-0.80 TOTAL COUNTED (BEAKER) (test ziwz=9018) 100 MANUAL NRBC PER 100 CELLS (BEAKER) (test xaew=6854) 3 /100 WBC 0-0 SMUDGE CELLS (BEAKER) (test fjrk=6392) Present GIANT PLATELETS (BEAKER) (test lwkg=011) Present POLYCHROMATOPHILLIC RBCS(BEAKER) (test gwxl=867) 1+ few ANISOCYTOSIS (BEAKER) (test msts=404) 1+ few MICROCYTES (BEAKER) (test jhoy=620) 1+ few POIKILOCYTES (BEAKER) (test cnah=617) 2+ moderate SCHISTOCYTES (BEAKER) (test gwlj=322) 1+ few TEAR DROP CELLS (BEAKER) (test brab=450) 2+ moderate ARTIFACT (CELLAVISION)(BEAKER) (test edrp=9060) Present PLATELET CONCENTRATION (CELLAVISION)(BEAKER) (test pgii=9512) Adequate Received comment: User comments: Slide comments: COMPREHENSIVE METABOLIC PANEL 2018-04-30 06:06:00* Test Item Value Reference Range Comments TOTAL PROTEIN (BEAKER) (test yfgh=057) 6.9 gm/dL 6.0-8.3 Specimen slightly hemolyzed ALBUMIN (BEAKER) (test cdgs=8361) 3.7 g/dL 3.5-5.0 Specimen slightly hemolyzed ALKALINE PHOSPHATASE (BEAKER) (test gwpd=711) 145 U/L 40-150 BILIRUBIN TOTAL (BEAKER) (test chbh=637) 0.3 mg/dL 0.2-1.2 Specimen slightly hemolyzed SODIUM (BEAKER) (test hvbs=815) 140 meq/L 136-145 POTASSIUM (BEAKER) (test zljc=528) 4.3 meq/L 3.5-5.1 Specimen slightly hemolyzed CHLORIDE (BEAKER) (test bgpg=815) 106 meq/L 98-107 CO2 (BEAKER) (test lkoe=595) 25 meq/L 22-29 BLOOD UREA NITROGEN (BEAKER) (test bnlu=574) 11 mg/dL 7-21 CREATININE (BEAKER) (test xnbu=674) 0.71 mg/dL 0.57-1.25 Specimen slightly hemolyzed GLUCOSE RANDOM (BEAKER) (test hlyq=963) 121 mg/dL 70-105 CALCIUM (BEAKER) (test kvrs=829) 9.6 mg/dL 8.4-10.2 AST (SGOT) (BEAKER) (test ltbo=478) 60 U/L 5-34 Specimen slightly hemolyzed ALT (SGPT) (BEAKER) (test blji=245) 57 U/L 6-55 Specimen slightly hemolyzed EGFR (BEAKER) (test jcym=3495) 92 mL/min/1.73 sq m ESTIMATED GFR IS NOT ACCURATE CREATININE CLEARANCE IN PREDICTING GLOMERULAR FILTRATION RATE. ESTIMATED GFR IS NOT APPLICABLE FOR DIALYSIS PATIENTS. Specimen slightly lipemicHEPATIC FUNCTION [id number] 06:06:00* Test Item Value Reference Range Comments TOTAL PROTEIN (BEAKER) (test vbow=215) 6.9 gm/dL 6.0-8.3 Specimen slightly hemolyzed ALBUMIN (BEAKER) (test ynfc=1519) 3.7 g/dL 3.5-5.0 Specimen slightly hemolyzed BILIRUBIN TOTAL (BEAKER) (test atgq=455) 0.3 mg/dL 0.2-1.2 Specimen slightly hemolyzed BILIRUBIN DIRECT (BEAKER) (test wkqx=079) 0.1 mg/dL 0.1-0.5 Specimen slightly hemolyzed ALKALINE PHOSPHATASE (BEAKER) (test tpid=936) 145 U/L 40-150 AST (SGOT) (BEAKER) (test srel=951) 60 U/L 5-34 Specimen slightly hemolyzed ALT (SGPT) (BEAKER) (test kmhh=960) 57 U/L 6-55 Specimen slightly hemolyzed Specimen slightly lipemicCBC W/PLT COUNT & AUTO [id number] 16:39:00 * Test Item Value Reference Range Comments WHITE BLOOD CELL COUNT (BEAKER) (test zdik=688) 2.4 K/ L 3.5-10.5 RED BLOOD CELL COUNT (BEAKER) (test khzl=121) 3.29 M/ L 3.93-5.22 HEMOGLOBIN (BEAKER) (test jawx=066) 9.3 GM/DL 11.2-15.7 HEMATOCRIT (BEAKER) (test wyxz=819) 29.0 % 34.1-44.9 MEAN CORPUSCULAR VOLUME (BEAKER) (test gcly=174) 88.1 fL 79.4-94.8 MEAN CORPUSCULAR HEMOGLOBIN (BEAKER) (test hqxi=133) 28.3 pg 25.6-32.2 MEAN CORPUSCULAR HEMOGLOBIN CONC (BEAKER) (test cecy=340) 32.1 GM/DL 32.2-35.5 RED CELL DISTRIBUTION WIDTH (BEAKER) (test khbm=756) 18.4 % 11.7-14.4 PLATELET COUNT (BEAKER) (test imrf=596) 211 K/CU MM 150-450 MEAN PLATELET VOLUME (BEAKER) (test sepx=660) 9.7 fL 9.4-12.3 NUCLEATED RED BLOOD CELLS (BEAKER) (test ohfa=005) 0 /100 WBC 0-0 (CELLAVISION MANUAL DIFF)2018-04-29 16:39:00* Test Item Value Reference Range Comments NEUTROPHILS - REL (CELLAVISION)(BEAKER) (test evpn=7488) 13 % LYMPHOCYTES - REL (CELLAVISION)(BEAKER) (test gvne=4263) 61 % MONOCYTES - REL (CELLAVISION)(BEAKER) (test stnk=8846) 11 % EOSINOPHILS - REL (CELLAVISION)(BEAKER) (test bhem=1867) 7 % BASOPHILS - REL (CELLAVISION)(BEAKER) (test pnyu=5719) 2 % BANDS - REL (CELLAVISION)(BEAKER) (test irjb=9482) 5 % 0-10 NEUTROPHILS - ABS (CELLAVISION)(BEAKER) (test cges=3495) 0.31 K/ul 1.56-6.13 LYMPHOCYTES - ABS (CELLAVISION)(BEAKER) (test rdet=3911) 1.46 K/ul 1.18-3.74 MONOCYTES - ABS (CELLAVISION)(BEAKER) (test lvhx=0641) 0.26 K/uL 0.24-0.36 EOSINOPHILS - ABS (CELLAVISION)(BEAKER) (test ubmk=0311) 0.17 K/uL 0.04-0.36 BASOPHILS - ABS (CELLAVISION)(BEAKER) (test wumo=0758) 0.05 K/uL 0.01-0.08 BANDS - ABS (CELLAVISION)(BEAKER) (test uzcq=3273) 0.12 K/uL 0.00-0.80 TOTAL COUNTED (BEAKER) (test fons=1514) 100 MANUAL NRBC PER 100 CELLS (BEAKER) (test awzi=3666) 1 /100 WBC 0-0 WBC MORPHOLOGY (BEAKER) (test oysz=228) Normal GIANT PLATELETS (BEAKER) (test nyap=858) Present ANISOCYTOSIS (BEAKER) (test nbvc=460) 1+ few MICROCYTES (BEAKER) (test odmq=842) 1+ few POIKILOCYTES (BEAKER) (test qcrj=476) 2+ moderate ELLIPTOCYTES (BEAKER) (test xxez=211) 1+ few OVALOCYTES (BEAKER) (test rrbi=680) 1+ few TEAR DROP CELLS (BEAKER) (test eyys=185) 2+ moderate ARTIFACT (CELLAVISION)(BEAKER) (test aqxj=2377) Present HELMET CELLS (CELLAVISION)(BEAKER) (test osmu=4553) 1+ few PLATELET CONCENTRATION (CELLAVISION)(BEAKER) (test ipqv=0791) Adequate Received comment: User comments: Slide comments: HEPATIC FUNCTION PANEL 2018-04-29 06:48:00* Test Item Value Reference Range Comments TOTAL PROTEIN (BEAKER) (test ahxf=264) 6.9 gm/dL 6.0-8.3 ALBUMIN (BEAKER) (test jifq=5273) 3.7 g/dL 3.5-5.0 BILIRUBIN TOTAL (BEAKER) (test ranw=912) 0.3 mg/dL 0.2-1.2 BILIRUBIN DIRECT (BEAKER) (test cbze=633) < mg/dL 0.1-0.5 ALKALINE PHOSPHATASE (BEAKER) (test ocuy=312) 143 U/L 40-150 AST (SGOT) (BEAKER) (test yewr=793) 38 U/L 5-34 ALT (SGPT) (BEAKER) (test yoys=187) 53 U/L 6-55 Specimen moderately lipemicCOMPREHENSIVE METABOLIC [id number] 06:41:00* Test Item Value Reference Range Comments TOTAL PROTEIN (BEAKER) (test qfed=030) 6.9 gm/dL 6.0-8.3 ALBUMIN (BEAKER) (test mscb=4879) 3.7 g/dL 3.5-5.0 ALKALINE PHOSPHATASE (BEAKER) (test jkey=475) 143 U/L 40-150 BILIRUBIN TOTAL (BEAKER) (test vlqz=136) 0.3 mg/dL 0.2-1.2 SODIUM (BEAKER) (test wpgk=886) 140 meq/L 136-145 POTASSIUM (BEAKER) (test iqwh=304) 4.0 meq/L 3.5-5.1 CHLORIDE (BEAKER) (test slgq=969) 105 meq/L 98-107 CO2 (BEAKER) (test jgki=069) 25 meq/L 22-29 BLOOD UREA NITROGEN (BEAKER) (test evip=001) 9 mg/dL 7-21 CREATININE (BEAKER) (test yrok=037) 0.66 mg/dL 0.57-1.25 GLUCOSE RANDOM (BEAKER) (test xoif=959) 120 mg/dL 70-105 CALCIUM (BEAKER) (test ceti=895) 9.6 mg/dL 8.4-10.2 AST (SGOT) (BEAKER) (test mlrz=724) 38 U/L 5-34 ALT (SGPT) (BEAKER) (test dhbl=897) 53 U/L 6-55 EGFR (BEAKER) (test nhdr=5685) 100 mL/min/1.73 sq m ESTIMATED GFR IS NOT ACCURATE CREATININE CLEARANCE IN PREDICTING GLOMERULAR FILTRATION RATE. ESTIMATED GFR IS NOT APPLICABLE FOR DIALYSIS PATIENTS. Specimen moderately lipemicSTOOL CULTURE + SHIGA [id number] 01:09:00* Test Item Value Reference Range Comments CULTURE (BEAKER) (test lklg=3479) No Salmonella, Shigella or Campylobacter isolated SODIUM, RANDOM [id number] 11:45:00* Test Item Value Reference Range Comments SODIUM URINE (BEAKER) (test zvcu=012) 137 meq/L Reference Range: No NormalsPOTASSIUM, RANDOM [id number] 11:44:00* Test Item Value Reference Range Comments POTASSIUM URINE (BEAKER) (test rqes=284) 10.0 meq/L Reference Range: No NormalsPROTEIN, RANDOM [id number] 11:44:00* Test Item Value Reference Range Comments PROTEIN, URINE (BEAKER) (test rgkd=2731) < mg/dL 0-14 CHLORIDE, RANDOM [id number] 11:32:00* Test Item Value Reference Range Comments CHLORIDE URINE (BEAKER) (test gkup=990) 124 meq/L Reference Range: No NormalsCREATININE, RANDOM [id number] 11:32:00* Test Item Value Reference Range Comments CREATININE URINE (BEAKER) (test arpf=399) 33.2 mg/dL Reference Range: No NormalsMAGNESIUM, RANDOM [id number] 11:32:00* Test Item Value Reference Range Comments MAGNESIUM URINE (BEAKER) (test mjoj=723) 3.2 mg/dL Reference Range: No NormalsCBC W/PLT COUNT & AUTO [id number] 10:04:00* Test Item Value Reference Range Comments WHITE BLOOD CELL COUNT (BEAKER) (test fmjm=822) 2.1 K/ L 3.5-10.5 RED BLOOD CELL COUNT (BEAKER) (test qgcf=744) 3.28 M/ L 3.93-5.22 HEMOGLOBIN (BEAKER) (test lczx=149) 9.5 GM/DL 11.2-15.7 HEMATOCRIT (BEAKER) (test vsdt=291) 28.8 % 34.1-44.9 MEAN CORPUSCULAR VOLUME (BEAKER) (test mbfw=656) 87.8 fL 79.4-94.8 MEAN CORPUSCULAR HEMOGLOBIN (BEAKER) (test hfvh=517) 29.0 pg 25.6-32.2 MEAN CORPUSCULAR HEMOGLOBIN CONC (BEAKER) (test ccjg=560) 33.0 GM/DL 32.2-35.5 RED CELL DISTRIBUTION WIDTH (BEAKER) (test npyj=058) 17.8 % 11.7-14.4 PLATELET COUNT (BEAKER) (test lzrd=553) 250 K/CU MM 150-450 MEAN PLATELET VOLUME (BEAKER) (test gzdw=797) 10.4 fL 9.4-12.3 NUCLEATED RED BLOOD CELLS (BEAKER) (test lvcg=645) 0 /100 WBC 0-0 (CELLAVISION MANUAL DIFF)2018-04-28 10:04:00* Test Item Value Reference Range Comments NEUTROPHILS - REL (CELLAVISION)(BEAKER) (test omdh=9055) 20 % LYMPHOCYTES - REL (CELLAVISION)(BEAKER) (test yiks=1932) 67 % MONOCYTES - REL (CELLAVISION)(BEAKER) (test sgtc=4672) 4 % EOSINOPHILS - REL (CELLAVISION)(BEAKER) (test yiua=1012) 9 % BASOPHILS - REL (CELLAVISION)(BEAKER) (test ycsy=9378) 1 % NEUTROPHILS - ABS (CELLAVISION)(BEAKER) (test rnvw=0041) 0.42 K/ul 1.56-6.13 LYMPHOCYTES - ABS (CELLAVISION)(BEAKER) (test fscy=0425) 1.41 K/ul 1.18-3.74 MONOCYTES - ABS (CELLAVISION)(BEAKER) (test wfut=7680) 0.08 K/uL 0.24-0.36 EOSINOPHILS - ABS (CELLAVISION)(BEAKER) (test bqet=7015) 0.19 K/uL 0.04-0.36 BASOPHILS - ABS (CELLAVISION)(BEAKER) (test ibvj=6503) 0.02 K/uL 0.01-0.08 TOTAL COUNTED (BEAKER) (test rmgz=1924) 100 WBC MORPHOLOGY (BEAKER) (test njvb=489) Normal GIANT PLATELETS (BEAKER) (test uubn=711) Present LARGE PLT(BEAKER) (test cvvq=6913) Present POLYCHROMATOPHILLIC RBCS(BEAKER) (test geaf=644) 1+ few HYPOCHROMIA (BEAKER) (test tlal=002) 1+ few ANISOCYTOSIS (BEAKER) (test idhi=887) 2+ moderate MICROCYTES (BEAKER) (test griq=233) 1+ few MACROCYTES (BEAKER) (test wxwj=007) 2+ moderate POIKILOCYTES (BEAKER) (test jlsm=051) 3+ many TARGET CELLS (BEAKER) (test gcjc=925) 2+ moderate SCHISTOCYTES (BEAKER) (test kuqd=401) 2+ moderate ELLIPTOCYTES (BEAKER) (test oupt=834) 2+ moderate OVALOCYTES (BEAKER) (test gtlw=203) 1+ few TEAR DROP CELLS (BEAKER) (test lvib=213) 2+ moderate ACANTHOCYTES (BEAKER) (test jzza=219) 1+ few ARTIFACT (CELLAVISION)(BEAKER) (test aiwa=0659) Present PLATELET CONCENTRATION (CELLAVISION)(BEAKER) (test soyl=1637) Adequate Received comment: User comments: Slide comments: OSMOLALITY, [id number] 09:28:00* Test Item Value Reference Range Comments OSMOLALITY URINE (BEAKER) (test hbyp=320) 369 mOsm/kg 40-1400 URINALYSIS W/ [id number] 09:28:00* Test Item Value Reference Range Comments COLOR (BEAKER) (test efro=347) Light Yellow CLARITY (BEAKER) (test hfnn=314) Clear SPECIFIC GRAVITY UA (BEAKER) (test kfie=832) 1.008 1.001-1.035 PH UA (BEAKER) (test zesj=702) 7.0 5.0-8.0 PROTEIN UA (BEAKER) (test wocf=197) Negative Negative GLUCOSE UA (BEAKER) (test sbyg=389) Negative Negative KETONES UA (BEAKER) (test hyea=117) Negative Negative BILIRUBIN UA (BEAKER) (test qckg=124) Negative Negative BLOOD UA (BEAKER) (test jgto=372) Negative Negative NITRITE UA (BEAKER) (test mvpj=488) Negative Negative LEUKOCYTE ESTERASE UA (BEAKER) (test kpai=328) Negative Negative UROBILINOGEN UA (BEAKER) (test mxwn=675) 0.2 mg/dL 0.2-1.0 RBC UA (BEAKER) (test emes=962) < /HPF WBC UA (BEAKER) (test bqtt=151) 1 /HPF BACTERIA (BEAKER) (test bzwq=222) Occasional SQUAMOUS EPITHELIAL (BEAKER) (test mbzi=890) 1 /HPF SOURCE(BEAKER) (test mcnb=0599) Urine, Voided SHIGA TOXIN [id number] 08:40:00* Test Item Value Reference Range Comments SHIGA TOXIN 1 (BEAKER) (test jsvb=1123) Not detected Not detected SHIGA TOXIN 2 (BEAKER) (test zcyw=6666) Not detected Not detected HEPATIC FUNCTION [id number] 06:28:00* Test Item Value Reference Range Comments TOTAL PROTEIN (BEAKER) (test nxnd=019) 7.6 gm/dL 6.0-8.3 Specimen markedly hemolyzed ALBUMIN (BEAKER) (test kkqh=8046) 3.6 g/dL 3.5-5.0 Specimen markedly hemolyzed BILIRUBIN TOTAL (BEAKER) (test iszd=586) 0.2 mg/dL 0.2-1.2 Specimen markedly hemolyzed BILIRUBIN DIRECT (BEAKER) (test wwsw=478) < mg/dL 0.1-0.5 Specimen markedly hemolyzed ALKALINE PHOSPHATASE (BEAKER) (test ydod=947) 158 U/L 40-150 AST (SGOT) (BEAKER) (test viml=914) 61 U/L 5-34 Specimen markedly hemolyzed ALT (SGPT) (BEAKER) (test pojr=886) 55 U/L 6-55 Specimen markedly hemolyzed Specimen markedly [id number] 06:21:00* Test Item Value Reference Range Comments MAGNESIUM (BEAKER) (test xlsm=152) 2.9 mg/dL 1.6-2.6 Specimen markedly hemolyzed [id number] 06:21:00* Test Item Value Reference Range Comments PHOSPHORUS (BEAKER) (test shcm=200) 5.0 mg/dL 2.3-4.7 Specimen markedly hemolyzed COMPREHENSIVE METABOLIC [id number] 06:21:00* Test Item Value Reference Range Comments TOTAL PROTEIN (BEAKER) (test lidb=131) 7.6 gm/dL 6.0-8.3 Specimen markedly hemolyzed ALBUMIN (BEAKER) (test dyjn=6511) 3.6 g/dL 3.5-5.0 Specimen markedly hemolyzed ALKALINE PHOSPHATASE (BEAKER) (test sckb=287) 158 U/L 40-150 BILIRUBIN TOTAL (BEAKER) (test pqal=592) 0.2 mg/dL 0.2-1.2 Specimen markedly hemolyzed SODIUM (BEAKER) (test pbqm=076) 141 meq/L 136-145 POTASSIUM (BEAKER) (test hhjl=072) 4.4 meq/L 3.5-5.1 Specimen markedly hemolyzed CHLORIDE (BEAKER) (test giaq=449) 105 meq/L 98-107 CO2 (BEAKER) (test mffb=866) 26 meq/L 22-29 BLOOD UREA NITROGEN (BEAKER) (test sdzn=353) 9 mg/dL 7-21 CREATININE (BEAKER) (test nexo=748) 0.69 mg/dL 0.57-1.25 Specimen markedly hemolyzed GLUCOSE RANDOM (BEAKER) (test kcbg=418) 125 mg/dL 70-105 CALCIUM (BEAKER) (test xzhh=532) 9.3 mg/dL 8.4-10.2 AST (SGOT) (BEAKER) (test ivxy=964) 61 U/L 5-34 Specimen markedly hemolyzed ALT (SGPT) (BEAKER) (test acgf=500) 55 U/L 6-55 Specimen markedly hemolyzed EGFR (BEAKER) (test nyqj=3132) 95 mL/min/1.73 sq m ESTIMATED GFR IS NOT ACCURATE CREATININE CLEARANCE IN PREDICTING GLOMERULAR FILTRATION RATE. ESTIMATED GFR IS NOT APPLICABLE FOR DIALYSIS PATIENTS. Specimen markedly [id number] 06:21:00* Test Item Value Reference Range Comments AMYLASE (BEAKER) (test bzty=443) 49 U/L 25-125 Specimen markedly hemolyzed [id number] 06:21:00* Test Item Value Reference Range Comments LIPASE (BEAKER) (test trga=739) 16 U/L 8-78 [id number] 16:02:00* Test Item Value Reference Range Comments MAGNESIUM (BEAKER) (test xyvg=920) 4.9 mg/dL 1.6-2.6 Specimen markedly hemolyzed BASIC METABOLIC [id number] 16:02:00* Test Item Value Reference Range Comments SODIUM (BEAKER) (test mpan=403) 135 meq/L 136-145 POTASSIUM (BEAKER) (test ohou=165) 5.7 meq/L 3.5-5.1 Specimen markedly hemolyzed CHLORIDE (BEAKER) (test umxp=381) 101 meq/L 98-107 CO2 (BEAKER) (test wcxw=338) 19 meq/L 22-29 BLOOD UREA NITROGEN (BEAKER) (test cnee=787) 7 mg/dL 7-21 CREATININE (BEAKER) (test owqk=543) 0.71 mg/dL 0.57-1.25 Specimen markedly hemolyzed GLUCOSE RANDOM (BEAKER) (test sfez=683) 112 mg/dL 70-105 CALCIUM (BEAKER) (test wihg=190) 9.6 mg/dL 8.4-10.2 EGFR (BEAKER) (test qtgd=7062) 92 mL/min/1.73 sq m ESTIMATED GFR IS NOT ACCURATE CREATININE CLEARANCE IN PREDICTING GLOMERULAR FILTRATION RATE. ESTIMATED GFR IS NOT APPLICABLE FOR DIALYSIS PATIENTS. CBC W/PLT COUNT & AUTO [id number] 15:27:00* Test Item Value Reference Range Comments WHITE BLOOD CELL COUNT (BEAKER) (test sivi=362) 2.6 K/ L 3.5-10.5 RED BLOOD CELL COUNT (BEAKER) (test pgcb=120) 3.30 M/ L 3.93-5.22 HEMOGLOBIN (BEAKER) (test chkn=848) 10.0 GM/DL 11.2-15.7 HEMATOCRIT (BEAKER) (test vewh=198) 29.2 % 34.1-44.9 MEAN CORPUSCULAR VOLUME (BEAKER) (test rxel=175) 88.5 fL 79.4-94.8 MEAN CORPUSCULAR HEMOGLOBIN (BEAKER) (test umss=425) 30.3 pg 25.6-32.2 MEAN CORPUSCULAR HEMOGLOBIN CONC (BEAKER) (test jets=427) 34.2 GM/DL 32.2-35.5 RED CELL DISTRIBUTION WIDTH (BEAKER) (test zwkp=393) 17.9 % 11.7-14.4 PLATELET COUNT (BEAKER) (test wfpx=508) 254 K/CU MM 150-450 MEAN PLATELET VOLUME (BEAKER) (test tibc=844) 10.5 fL 9.4-12.3 NUCLEATED RED BLOOD CELLS (BEAKER) (test wmlo=817) 0 /100 WBC 0-0 (MANUAL DIFFERENTIAL)2018-04-27 15:27:00* Test Item Value Reference Range Comments NEUTROPHILS - REL (DIFF) (BEAKER) (test irxw=3819) 7 % LYMPHOCYTES - REL (DIFF) (BEAKER) (test pmxx=5223) 80 % MONOCYTES - REL (DIFF) (BEAKER) (test khsf=1634) 6 % EOSINOPHILS - REL (DIFF) (BEAKER) (test ebbg=0160) 7 % NEUTROPHILS - ABS (DIFF) (BEAKER) (test qzdi=4848) 0.18 K/ L 1.80-8.00 LYMPHOCYTES - ABS (DIFF) (BEAKER) (test btqr=6930) 2.08 K/ L 1.48-4.50 MONOCYTES - ABS (DIFF) (BEAKER) (test pmgo=5841) 0.16 K/ L 0.00-1.30 EOSINOPHILS - ABS (DIFF) (BEAKER) (test pdfd=2268) 0.18 K/ L 0.00-0.50 TOTAL COUNTED (BEAKER) (test nlwt=3096) 100 WBC MORPHOLOGY (BEAKER) (test cvox=879) Normal PLT MORPHOLOGY (BEAKER) (test rgmm=993) Normal OVALOCYTES (BEAKER) (test jbdh=060) 1+ few [id number] 13:37:00* Test Item Value Reference Range Comments MAGNESIUM (BEAKER) (test lszw=682) 3.7 mg/dL 1.6-2.6 Specimen markedly hemolyzed BASIC METABOLIC [id number] 13:37:00* Test Item Value Reference Range Comments SODIUM (BEAKER) (test ljsx=883) 138 meq/L 136-145 POTASSIUM (BEAKER) (test akfd=403) 4.7 meq/L 3.5-5.1 Specimen markedly hemolyzed CHLORIDE (BEAKER) (test ijtt=812) 105 meq/L 98-107 CO2 (BEAKER) (test dooy=116) 18 meq/L 22-29 BLOOD UREA NITROGEN (BEAKER) (test xkas=805) 6 mg/dL 7-21 CREATININE (BEAKER) (test wjow=444) 0.69 mg/dL 0.57-1.25 Specimen markedly hemolyzed GLUCOSE RANDOM (BEAKER) (test ilvs=301) 127 mg/dL 70-105 CALCIUM (BEAKER) (test hnhv=780) 9.6 mg/dL 8.4-10.2 EGFR (BEAKER) (test pbml=7845) 95 mL/min/1.73 sq m ESTIMATED GFR IS NOT ACCURATE CREATININE CLEARANCE IN PREDICTING GLOMERULAR FILTRATION RATE. ESTIMATED GFR IS NOT APPLICABLE FOR DIALYSIS PATIENTS. [id number] 11:06:00* Test Item Value Reference Range Comments MAGNESIUM (BEAKER) (test weub=341) 3.7 mg/dL 1.6-2.6 Specimen markedly hemolyzed BASIC METABOLIC [id number] 11:06:00* Test Item Value Reference Range Comments SODIUM (BEAKER) (test fxmr=270) 138 meq/L 136-145 POTASSIUM (BEAKER) (test nhzb=860) 4.6 meq/L 3.5-5.1 Specimen markedly hemolyzed CHLORIDE (BEAKER) (test clxu=743) 105 meq/L 98-107 CO2 (BEAKER) (test bwfq=274) 18 meq/L 22-29 BLOOD UREA NITROGEN (BEAKER) (test oegf=250) 6 mg/dL 7-21 CREATININE (BEAKER) (test cncb=575) 0.64 mg/dL 0.57-1.25 Specimen markedly hemolyzed GLUCOSE RANDOM (BEAKER) (test uftc=774) 116 mg/dL 70-105 CALCIUM (BEAKER) (test txux=745) 9.4 mg/dL 8.4-10.2 EGFR (BEAKER) (test fxqw=7662) 104 mL/min/1.73 sq m ESTIMATED GFR IS NOT ACCURATE CREATININE CLEARANCE IN PREDICTING GLOMERULAR FILTRATION RATE. ESTIMATED GFR IS NOT APPLICABLE FOR DIALYSIS PATIENTS. HEPATIC FUNCTION [id number] 06:00:00* Test Item Value Reference Range Comments TOTAL PROTEIN (BEAKER) (test pcfy=173) 8.2 gm/dL 6.0-8.3 Specimen slightly hemolyzed ALBUMIN (BEAKER) (test awbk=2268) 3.8 g/dL 3.5-5.0 Specimen slightly hemolyzed BILIRUBIN TOTAL (BEAKER) (test sxpm=688) 0.3 mg/dL 0.2-1.2 Specimen slightly hemolyzed BILIRUBIN DIRECT (BEAKER) (test znfl=405) < mg/dL 0.1-0.5 Specimen slightly hemolyzed ALKALINE PHOSPHATASE (BEAKER) (test vhvf=908) 180 U/L 40-150 AST (SGOT) (BEAKER) (test jagl=362) 53 U/L 5-34 Specimen slightly hemolyzed ALT (SGPT) (BEAKER) (test wduq=840) 69 U/L 6-55 Specimen slightly hemolyzed Specimen markedly [id number] 05:54:00* Test Item Value Reference Range Comments MAGNESIUM (BEAKER) (test wqrc=453) 2.8 mg/dL 1.6-2.6 Specimen slightly hemolyzed BASIC METABOLIC [id number] 05:54:00* Test Item Value Reference Range Comments SODIUM (BEAKER) (test ncur=791) 142 meq/L 136-145 POTASSIUM (BEAKER) (test surm=682) 3.8 meq/L 3.5-5.1 Specimen slightly hemolyzed CHLORIDE (BEAKER) (test jmgo=977) 109 meq/L 98-107 CO2 (BEAKER) (test nipv=456) 22 meq/L 22-29 BLOOD UREA NITROGEN (BEAKER) (test bflm=983) 4 mg/dL 7-21 CREATININE (BEAKER) (test srqo=972) 0.67 mg/dL 0.57-1.25 Specimen slightly hemolyzed GLUCOSE RANDOM (BEAKER) (test xhne=233) 116 mg/dL 70-105 CALCIUM (BEAKER) (test wjlk=179) 9.5 mg/dL 8.4-10.2 EGFR (BEAKER) (test egdx=4024) 99 mL/min/1.73 sq m ESTIMATED GFR IS NOT ACCURATE CREATININE CLEARANCE IN PREDICTING GLOMERULAR FILTRATION RATE. ESTIMATED GFR IS NOT APPLICABLE FOR DIALYSIS PATIENTS. STOOL PATH [id number] 12:40:00* Test Item Value Reference Range Comments PATHOGEN EXAM CHARGED (BEAKER) (test ehgj=6715) Done CBC W/PLT COUNT & AUTO [id number] 12:12:00* Test Item Value Reference Range Comments WHITE BLOOD CELL COUNT (BEAKER) (test jihr=598) 2.2 K/ L 3.5-10.5 RED BLOOD CELL COUNT (BEAKER) (test lrlg=035) 3.23 M/ L 3.93-5.22 HEMOGLOBIN (BEAKER) (test seti=435) 9.0 GM/DL 11.2-15.7 HEMATOCRIT (BEAKER) (test jdxu=693) 28.0 % 34.1-44.9 MEAN CORPUSCULAR VOLUME (BEAKER) (test plrs=398) 86.7 fL 79.4-94.8 MEAN CORPUSCULAR HEMOGLOBIN (BEAKER) (test azki=744) 27.9 pg 25.6-32.2 MEAN CORPUSCULAR HEMOGLOBIN CONC (BEAKER) (test pcbc=070) 32.1 GM/DL 32.2-35.5 RED CELL DISTRIBUTION WIDTH (BEAKER) (test qsgq=258) 17.9 % 11.7-14.4 PLATELET COUNT (BEAKER) (test gtbe=463) 223 K/CU MM 150-450 MEAN PLATELET VOLUME (BEAKER) (test olzj=599) 10.2 fL 9.4-12.3 NUCLEATED RED BLOOD CELLS (BEAKER) (test emcg=395) 0 /100 WBC 0-0 (CELLAVISION MANUAL DIFF)2018-04-26 12:12:00* Test Item Value Reference Range Comments NEUTROPHILS - REL (CELLAVISION)(BEAKER) (test iazt=6992) 4 % LYMPHOCYTES - REL (CELLAVISION)(BEAKER) (test kots=7689) 80 % MONOCYTES - REL (CELLAVISION)(BEAKER) (test pmjp=7223) 9 % EOSINOPHILS - REL (CELLAVISION)(BEAKER) (test nxrb=9722) 8 % NEUTROPHILS - ABS (CELLAVISION)(BEAKER) (test dbhg=1049) 0.09 K/ul 1.56-6.13 LYMPHOCYTES - ABS (CELLAVISION)(BEAKER) (test advy=2996) 1.76 K/ul 1.18-3.74 MONOCYTES - ABS (CELLAVISION)(BEAKER) (test layr=9312) 0.20 K/uL 0.24-0.36 EOSINOPHILS - ABS (CELLAVISION)(BEAKER) (test gpmm=5625) 0.18 K/uL 0.04-0.36 TOTAL COUNTED (BEAKER) (test wcud=1533) 100 WBC MORPHOLOGY (BEAKER) (test blmg=602) Normal PLT MORPHOLOGY (BEAKER) (test bkvn=376) Normal ANISOCYTOSIS (BEAKER) (test iuwq=612) 1+ few MICROCYTES (BEAKER) (test yphn=266) 1+ few POIKILOCYTES (BEAKER) (test nwxu=432) 1+ few OVALOCYTES (BEAKER) (test nxjt=770) 1+ few ARTIFACT (CELLAVISION)(BEAKER) (test lquy=7586) Present PLATELET CONCENTRATION (CELLAVISION)(BEAKER) (test zxut=2329) Adequate Received comment: User comments: Slide comments: HEPATIC FUNCTION PANEL 2018-04-26 06:59:00* Test Item Value Reference Range Comments TOTAL PROTEIN (BEAKER) (test msuk=088) 6.0 gm/dL 6.0-8.3 ALBUMIN (BEAKER) (test euya=7090) 3.4 g/dL 3.5-5.0 BILIRUBIN TOTAL (BEAKER) (test krkx=341) 0.1 mg/dL 0.2-1.2 BILIRUBIN DIRECT (BEAKER) (test khmh=694) < mg/dL 0.1-0.5 ALKALINE PHOSPHATASE (BEAKER) (test zvpv=029) 152 U/L 40-150 AST (SGOT) (BEAKER) (test pxrj=925) 34 U/L 5-34 ALT (SGPT) (BEAKER) (test gkps=207) 61 U/L 6-55 [id number] 06:58:00* Test Item Value Reference Range Comments PHOSPHORUS (BEAKER) (test twkh=553) 3.3 mg/dL 2.3-4.7 [id number] 06:58:00* Test Item Value Reference Range Comments MAGNESIUM (BEAKER) (test xckl=441) 2.0 mg/dL 1.6-2.6 BASIC METABOLIC [id number] 06:58:00* Test Item Value Reference Range Comments SODIUM (BEAKER) (test yzio=099) 139 meq/L 136-145 POTASSIUM (BEAKER) (test tyjx=454) 3.5 meq/L 3.5-5.1 CHLORIDE (BEAKER) (test qlut=370) 107 meq/L 98-107 CO2 (BEAKER) (test nhno=488) 26 meq/L 22-29 BLOOD UREA NITROGEN (BEAKER) (test unsm=610) 8 mg/dL 7-21 CREATININE (BEAKER) (test brgq=533) 0.62 mg/dL 0.57-1.25 GLUCOSE RANDOM (BEAKER) (test ktzy=387) 132 mg/dL 70-105 CALCIUM (BEAKER) (test xujp=174) 8.5 mg/dL 8.4-10.2 EGFR (BEAKER) (test uwft=0018) 108 mL/min/1.73 sq m ESTIMATED GFR IS NOT ACCURATE CREATININE CLEARANCE IN PREDICTING GLOMERULAR FILTRATION RATE. ESTIMATED GFR IS NOT APPLICABLE FOR DIALYSIS PATIENTS. URINALYSIS W/ [id number] 15:57:00* Test Item Value Reference Range Comments COLOR (BEAKER) (test ytui=081) Colorless CLARITY (BEAKER) (test ojcw=042) Clear SPECIFIC GRAVITY UA (BEAKER) (test vzsf=380) 1.005 1.001-1.035 PH UA (BEAKER) (test ksjn=996) 6.5 5.0-8.0 PROTEIN UA (BEAKER) (test uilc=413) Negative Negative GLUCOSE UA (BEAKER) (test phid=450) Negative Negative KETONES UA (BEAKER) (test eiib=299) Negative Negative BILIRUBIN UA (BEAKER) (test eiqc=452) Negative Negative BLOOD UA (BEAKER) (test emuc=964) Negative Negative NITRITE UA (BEAKER) (test dazf=873) Negative Negative LEUKOCYTE ESTERASE UA (BEAKER) (test qkoi=551) Negative Negative UROBILINOGEN UA (BEAKER) (test lfyk=327) 0.2 mg/dL 0.2-1.0 RBC UA (BEAKER) (test tify=591) 2 /HPF WBC UA (BEAKER) (test qzdl=512) 1 /HPF BACTERIA (BEAKER) (test lebj=597) Moderate MUCUS (BEAKER) (test wikz=9332) Rare SQUAMOUS EPITHELIAL (BEAKER) (test uaop=070) 2 /HPF SOURCE(BEAKER) (test mwpa=2997) Urine, Clean Catch CBC W/PLT COUNT & AUTO [id number] 12:32:00* Test Item Value Reference Range Comments WHITE BLOOD CELL COUNT (BEAKER) (test jjfr=350) 1.7 K/ L 3.5-10.5 RED BLOOD CELL COUNT (BEAKER) (test bxlx=836) 3.38 M/ L 3.93-5.22 HEMOGLOBIN (BEAKER) (test grqm=482) 9.2 GM/DL 11.2-15.7 HEMATOCRIT (BEAKER) (test yffo=827) 29.0 % 34.1-44.9 MEAN CORPUSCULAR VOLUME (BEAKER) (test dboo=560) 85.8 fL 79.4-94.8 MEAN CORPUSCULAR HEMOGLOBIN (BEAKER) (test scjs=228) 27.2 pg 25.6-32.2 MEAN CORPUSCULAR HEMOGLOBIN CONC (BEAKER) (test eflu=326) 31.7 GM/DL 32.2-35.5 RED CELL DISTRIBUTION WIDTH (BEAKER) (test nyuz=313) 17.5 % 11.7-14.4 PLATELET COUNT (BEAKER) (test tpzu=532) 211 K/CU MM 150-450 MEAN PLATELET VOLUME (BEAKER) (test simb=725) 9.9 fL 9.4-12.3 NUCLEATED RED BLOOD CELLS (BEAKER) (test bltw=262) 0 /100 WBC 0-0 (CELLAVISION MANUAL DIFF)2018-04-25 12:32:00* Test Item Value Reference Range Comments NEUTROPHILS - REL (CELLAVISION)(BEAKER) (test zwkr=9818) 26 % LYMPHOCYTES - REL (CELLAVISION)(BEAKER) (test kdvo=9221) 59 % MONOCYTES - REL (CELLAVISION)(BEAKER) (test fdxr=2670) 6 % EOSINOPHILS - REL (CELLAVISION)(BEAKER) (test nnvf=0539) 8 % BASOPHILS - REL (CELLAVISION)(BEAKER) (test psdg=6885) 1 % NEUTROPHILS - ABS (CELLAVISION)(BEAKER) (test wnqv=2673) 0.44 K/ul 1.56-6.13 LYMPHOCYTES - ABS (CELLAVISION)(BEAKER) (test tkty=6359) 1.00 K/ul 1.18-3.74 MONOCYTES - ABS (CELLAVISION)(BEAKER) (test vxwl=6341) 0.10 K/uL 0.24-0.36 EOSINOPHILS - ABS (CELLAVISION)(BEAKER) (test owvy=8630) 0.14 K/uL 0.04-0.36 BASOPHILS - ABS (CELLAVISION)(BEAKER) (test lslq=2253) 0.02 K/uL 0.01-0.08 TOTAL COUNTED (BEAKER) (test twiq=3922) 100 WBC MORPHOLOGY (BEAKER) (test efnz=976) Normal PLT MORPHOLOGY (BEAKER) (test hhvp=681) Normal ANISOCYTOSIS (BEAKER) (test wpyr=232) 1+ few MICROCYTES (BEAKER) (test cyzf=991) 1+ few POIKILOCYTES (BEAKER) (test pcqa=061) 1+ few ARTIFACT (CELLAVISION)(BEAKER) (test ukbg=7478) Present PLATELET CONCENTRATION (CELLAVISION)(BEAKER) (test oexg=8859) Adequate Received comment: User comments: Slide comments: HEPATITIS PANEL, ACUTE 2018-04-25 12:10:00* Test Item Value Reference Range Comments HEPATITIS A IGM ANTIBODY (BEAKER) (test etzf=926) Nonreactive Nonreactive HEPATITIS B CORE IGM ANTIBODY (BEAKER) (test vgeq=487) Nonreactive Nonreactive HEPATITIS C ANTIBODY (BEAKER) (test dxjq=159) Nonreactive Nonreactive HEPATITIS B SURFACE ANTIGEN (2) (BEAKER) (test zqqf=8923) Nonreactive Nonreactive [id number] 11:47:00* Test Item Value Reference Range Comments PHOSPHORUS (BEAKER) (test xjbv=369) 3.1 mg/dL 2.3-4.7 [id number] 11:47:00* Test Item Value Reference Range Comments MAGNESIUM (BEAKER) (test gfiu=854) 1.9 mg/dL 1.6-2.6 BASIC METABOLIC [id number] 11:47:00* Test Item Value Reference Range Comments SODIUM (BEAKER) (test wddy=162) 139 meq/L 136-145 POTASSIUM (BEAKER) (test odct=312) 3.3 meq/L 3.5-5.1 CHLORIDE (BEAKER) (test ahrk=902) 108 meq/L 98-107 CO2 (BEAKER) (test mwws=278) 22 meq/L 22-29 BLOOD UREA NITROGEN (BEAKER) (test fiqs=279) 8 mg/dL 7-21 CREATININE (BEAKER) (test fxiz=440) 0.67 mg/dL 0.57-1.25 GLUCOSE RANDOM (BEAKER) (test ttlr=234) 132 mg/dL 70-105 CALCIUM (BEAKER) (test tggq=535) 8.9 mg/dL 8.4-10.2 EGFR (BEAKER) (test degr=7443) 99 mL/min/1.73 sq m ESTIMATED GFR IS NOT ACCURATE CREATININE CLEARANCE IN PREDICTING GLOMERULAR FILTRATION RATE. ESTIMATED GFR IS NOT APPLICABLE FOR DIALYSIS PATIENTS. HEPATIC FUNCTION [id number] 11:47:00* Test Item Value Reference Range Comments TOTAL PROTEIN (BEAKER) (test mtzf=057) 6.4 gm/dL 6.0-8.3 ALBUMIN (BEAKER) (test kzqh=3572) 3.6 g/dL 3.5-5.0 BILIRUBIN TOTAL (BEAKER) (test wxhv=645) 0.3 mg/dL 0.2-1.2 BILIRUBIN DIRECT (BEAKER) (test qnra=702) 0.1 mg/dL 0.1-0.5 ALKALINE PHOSPHATASE (BEAKER) (test jfzm=846) 143 U/L 40-150 AST (SGOT) (BEAKER) (test lixl=163) 42 U/L 5-34 ALT (SGPT) (BEAKER) (test mlon=350) 77 U/L 6-55 C-REACTIVE [id number] 11:47:00* Test Item Value Reference Range Comments C-REACTIVE PROTEIN (KATHARINA) (test vvjn=134) 0.06 mg/dL 0.00-0.50 RAD, CHEST, 1 VIEW, NON [id number] 08:26:00Reason for exam:->low grade fever.Should this be performed at the bedside?->YesFINAL REPORT CLINICAL HISTORY: low grade fever. TECHNIQUE: 1 view of the chest. COMPARISON: 03/11/2018 IMPRESSION: A right central line again terminates in the SVC. There are no infiltrates or effusions. The cardiomediastinal silhouette is within normal limits for size. Signed: Inna Mullen MDReport Verified Date/Time: 04/25/2018 08:26:39 Reading Location: [facility] Radiology Reading Room U/S, ABDOMINAL, [id number] 22:30:00Abdomen limited area? Add comment if clarification is needed.->LiverReason for exam:->ABDOMINAL PAINReason for exam:->EMESISFINAL REPORT Exam: Limited abdominal ultrasound. Clinical History: Abdominal pain and emesis. Patient on chemotherapy for pancreatic cancer. Findings: Sonographic evaluation of the right upper quadrant of the abdomen was performed. Comparison is made to abdominal ultrasound 05/13/[address] abdomen and pelvis 04/06/2018. Liver: 14.8 cm in length at the right midclavicular line. Increased echogenicity. No lesion is identified by ultrasound. Main portal vein is patent measuring 1.0 cm in diameter, and demonstrates hepatopetal flow. Biliary tree: Common duct 5 mm. No intrahepatic biliary ductal dilatation. Gallbladder: Status post cholecystectomy. Pancreas: Partially obscured by bowel gas but the visualized portions of the head and body are grossly unremarkable. A discrete mass is not identified. Ascites: None seen. Right kidney: 10.1 x 4.5 x 5.2 cm with cortical thickness of 1.1 cm. Normal echogenicity. 7 x 6 x 5 mm echogenic structure in the mid to lower pole of the right kidney which may represent a nonobstructing stone. No hydronephrosis or contour deforming mass. IVC/Aorta: Segments partially seen. Unremarkable. Impression:Status post cholecys tectomy.Echogenic liver which may be seen with parenchymal disease such as fatty infiltration.Partially obscured pancreas; no discrete mass is identified but pl ease note that the study is insensitive for the detection of pancreatic lesions. Signed: Ny Key MDReport Verified Date/Time: 04/24/2018 22:30:38 Reading Location: [facility] [id number] CT Body Reading Room W/PLT COUNT & AUTO DIFFERENTIAL 2018-04-24 20:05:00* Test Item Value Reference Range Comments WHITE BLOOD CELL COUNT (BEAKER) (test algl=573) 2.6 K/ L 3.5-10.5 RED BLOOD CELL COUNT (BEAKER) (test qfrw=954) 3.64 M/ L 3.93-5.22 HEMOGLOBIN (BEAKER) (test tcom=048) 9.9 GM/DL 11.2-15.7 HEMATOCRIT (BEAKER) (test atzh=078) 31.0 % 34.1-44.9 MEAN CORPUSCULAR VOLUME (BEAKER) (test iosq=270) 85.2 fL 79.4-94.8 MEAN CORPUSCULAR HEMOGLOBIN (BEAKER) (test mloa=311) 27.2 pg 25.6-32.2 MEAN CORPUSCULAR HEMOGLOBIN CONC (BEAKER) (test heua=531) 31.9 GM/DL 32.2-35.5 RED CELL DISTRIBUTION WIDTH (BEAKER) (test xqcv=147) 17.5 % 11.7-14.4 PLATELET COUNT (BEAKER) (test hyew=411) 255 K/CU MM 150-450 MEAN PLATELET VOLUME (BEAKER) (test rdcd=879) 10.5 fL 9.4-12.3 NUCLEATED RED BLOOD CELLS (BEAKER) (test mogc=571) 0 /100 WBC 0-0 (CELLAVISION MANUAL DIFF)2018-04-24 20:05:00* Test Item Value Reference Range Comments NEUTROPHILS - REL (CELLAVISION)(BEAKER) (test ldpg=9186) 46 % LYMPHOCYTES - REL (CELLAVISION)(BEAKER) (test pmxm=0539) 41 % MONOCYTES - REL (CELLAVISION)(BEAKER) (test lqmw=5075) 7 % EOSINOPHILS - REL (CELLAVISION)(BEAKER) (test vcvm=0932) 7 % NEUTROPHILS - ABS (CELLAVISION)(BEAKER) (test vleq=8895) 1.20 K/ul 1.56-6.13 LYMPHOCYTES - ABS (CELLAVISION)(BEAKER) (test ctpi=4723) 1.07 K/ul 1.18-3.74 MONOCYTES - ABS (CELLAVISION)(BEAKER) (test bgbf=6457) 0.18 K/uL 0.24-0.36 EOSINOPHILS - ABS (CELLAVISION)(BEAKER) (test jdvf=5799) 0.18 K/uL 0.04-0.36 TOTAL COUNTED (BEAKER) (test piez=7785) 100 WBC MORPHOLOGY (BEAKER) (test lhwo=403) Normal GIANT PLATELETS (BEAKER) (test mcsj=057) Present POLYCHROMATOPHILLIC RBCS(BEAKER) (test emru=342) 1+ few HYPOCHROMIA (BEAKER) (test iykn=535) 1+ few ANISOCYTOSIS (BEAKER) (test bwrg=229) 2+ moderate MICROCYTES (BEAKER) (test orcb=989) 1+ few POIKILOCYTES (BEAKER) (test hckm=120) 2+ moderate SCHISTOCYTES (BEAKER) (test aeod=300) 1+ few SPHEROCYTES (BEAKER) (test opry=048) 1+ few ELLIPTOCYTES (BEAKER) (test vdbj=691) 1+ few OVALOCYTES (BEAKER) (test rjxg=560) 1+ few TEAR DROP CELLS (BEAKER) (test ayzn=150) 1+ few ARTIFACT (CELLAVISION)(BEAKER) (test geyw=9597) Present PLATELET CONCENTRATION (CELLAVISION)(BEAKER) (test qwvo=1669) Adequate Received comment: User comments: Slide comments: [id number] 19:39:00* Test Item Value Reference Range Comments LIPASE (BEAKER) (test fvwm=810) 16 U/L 8-78 COMPREHENSIVE METABOLIC [id number] 19:39:00* Test Item Value Reference Range Comments TOTAL PROTEIN (BEAKER) (test usxn=473) 7.4 gm/dL 6.0-8.3 Specimen slightly hemolyzed ALBUMIN (BEAKER) (test hcsv=6870) 4.1 g/dL 3.5-5.0 Specimen slightly hemolyzed ALKALINE PHOSPHATASE (BEAKER) (test rajy=733) 183 U/L 40-150 BILIRUBIN TOTAL (BEAKER) (test dtyu=417) 0.3 mg/dL 0.2-1.2 Specimen slightly hemolyzed SODIUM (BEAKER) (test mwpx=935) 140 meq/L 136-145 POTASSIUM (BEAKER) (test skbr=998) 3.7 meq/L 3.5-5.1 Specimen slightly hemolyzed CHLORIDE (BEAKER) (test wsve=254) 110 meq/L 98-107 CO2 (BEAKER) (test xdas=589) 22 meq/L 22-29 BLOOD UREA NITROGEN (BEAKER) (test fqoc=292) 11 mg/dL 7-21 CREATININE (BEAKER) (test ymkg=153) 0.68 mg/dL 0.57-1.25 Specimen slightly hemolyzed GLUCOSE RANDOM (BEAKER) (test qbwb=694) 120 mg/dL 70-105 CALCIUM (BEAKER) (test kmvr=502) 9.6 mg/dL 8.4-10.2 AST (SGOT) (BEAKER) (test cquh=082) 70 U/L 5-34 Specimen slightly hemolyzed ALT (SGPT) (BEAKER) (test lsos=290) 111 U/L 6-55 Specimen slightly hemolyzed EGFR (BEAKER) (test ufkv=3484) 97 mL/min/1.73 sq m ESTIMATED GFR IS NOT ACCURATE CREATININE CLEARANCE IN PREDICTING GLOMERULAR FILTRATION RATE. ESTIMATED GFR IS NOT APPLICABLE FOR DIALYSIS PATIENTS. Specimen slightly lipemicPT/[id number] 19:29:00* Test Item Value Reference Range Comments PROTIME (BEAKER) (test eexi=045) 13.6 seconds 11.7-14.7 INR (BEAKER) (test argf=517) 1.0 <=5.9 PARTIAL THROMBOPLASTIN TIME (BEAKER) (test nwhi=498) 26.5 seconds 22.5-36.0 RECOMMENDED COUMADIN/WARFARIN INR THERAPY RANGESSTANDARD DOSE: 2.0 - 3.0 Inclu yossi: PROPHYLAXIS for venous thrombosis, systemic embolization; TREATMENT for [place] ous thrombosis and/or pulmonary embolus.HIGH RISK: Target INR is 2.5-3.5 for pat ients with mechanical heart valves.[id number] 03:23:00* Test Item Value Reference Range Comments LIPASE (BEAKER) (test vwgn=111) 16 U/L 8-78 [id number] 03:23:00* Test Item Value Reference Range Comments AMYLASE (BEAKER) (test ysnr=452) 41 U/L 25-125 BASIC METABOLIC [id number] 03:23:00* Test Item Value Reference Range Comments SODIUM (BEAKER) (test whyt=593) 137 meq/L 136-145 POTASSIUM (BEAKER) (test tpuz=606) 3.7 meq/L 3.5-5.1 CHLORIDE (BEAKER) (test uwqo=319) 108 meq/L 98-107 CO2 (BEAKER) (test rxip=520) 18 meq/L 22-29 BLOOD UREA NITROGEN (BEAKER) (test yhym=323) 15 mg/dL 7-21 CREATININE (BEAKER) (test gnii=707) 0.83 mg/dL 0.57-1.25 GLUCOSE RANDOM (BEAKER) (test qunz=151) 99 mg/dL 70-105 CALCIUM (BEAKER) (test ocwj=649) 9.4 mg/dL 8.4-10.2 EGFR (BEAKER) (test qtne=3167) 77 mL/min/1.73 sq m ESTIMATED GFR IS NOT ACCURATE CREATININE CLEARANCE IN PREDICTING GLOMERULAR FILTRATION RATE. ESTIMATED GFR IS NOT APPLICABLE FOR DIALYSIS PATIENTS. HEPATIC FUNCTION [id number] 03:23:00* Test Item Value Reference Range Comments TOTAL PROTEIN (BEAKER) (test ihal=960) 7.5 gm/dL 6.0-8.3 ALBUMIN (BEAKER) (test rpmi=4460) 4.2 g/dL 3.5-5.0 BILIRUBIN TOTAL (BEAKER) (test lmqq=213) 0.3 mg/dL 0.2-1.2 BILIRUBIN DIRECT (BEAKER) (test dqxy=216) 0.1 mg/dL 0.1-0.5 ALKALINE PHOSPHATASE (BEAKER) (test hlkp=689) 186 U/L 40-150 AST (SGOT) (BEAKER) (test taqt=082) 47 U/L 5-34 ALT (SGPT) (BEAKER) (test zuor=781) 124 U/L 6-55 URINALYSIS W/ REFLEX URINE [id number] 03:09:00* Test Item Value Reference Range Comments COLOR (BEAKER) (test uwhh=310) Yellow CLARITY (BEAKER) (test kkol=427) Hazy SPECIFIC GRAVITY UA (BEAKER) (test tyof=419) 1.016 1.001-1.035 PH UA (BEAKER) (test stib=363) 6.0 5.0-8.0 PROTEIN UA (BEAKER) (test iyfk=241) 10 mg/dL Negative GLUCOSE UA (BEAKER) (test pvtk=973) Negative Negative KETONES UA (BEAKER) (test cgkt=075) Negative Negative BILIRUBIN UA (BEAKER) (test limu=062) Negative Negative BLOOD UA (BEAKER) (test wmgn=742) Negative Negative NITRITE UA (BEAKER) (test xizi=759) Negative Negative LEUKOCYTE ESTERASE UA (BEAKER) (test vbny=246) Trace Negative UROBILINOGEN UA (BEAKER) (test sgpi=049) 0.2 mg/dL 0.2-1.0 RBC UA (BEAKER) (test hrae=900) 2 /HPF WBC UA (BEAKER) (test xknv=592) 32 /HPF BACTERIA (BEAKER) (test hptx=079) Many MUCUS (BEAKER) (test kqwo=9802) Moderate SQUAMOUS EPITHELIAL (BEAKER) (test vemy=989) 7 /HPF SOURCE(BEAKER) (test yvdw=6971) CBC W/PLT COUNT & AUTO [id number] 02:59:00* Test Item Value Reference Range Comments WHITE BLOOD CELL COUNT (BEAKER) (test slbw=483) 4.6 K/ L 3.5-10.5 RED BLOOD CELL COUNT (BEAKER) (test bxlu=253) 3.73 M/ L 3.93-5.22 HEMOGLOBIN (BEAKER) (test neqt=160) 10.2 GM/DL 11.2-15.7 HEMATOCRIT (BEAKER) (test rrox=969) 31.0 % 34.1-44.9 MEAN CORPUSCULAR VOLUME (BEAKER) (test fnra=030) 83.1 fL 79.4-94.8 MEAN CORPUSCULAR HEMOGLOBIN (BEAKER) (test zbth=071) 27.3 pg 25.6-32.2 MEAN CORPUSCULAR HEMOGLOBIN CONC (BEAKER) (test tfxa=492) 32.9 GM/DL 32.2-35.5 RED CELL DISTRIBUTION WIDTH (BEAKER) (test ohyq=597) 16.3 % 11.7-14.4 PLATELET COUNT (BEAKER) (test yain=265) 239 K/CU MM 150-450 MEAN PLATELET VOLUME (BEAKER) (test qahi=742) 10.2 fL 9.4-12.3 NUCLEATED RED BLOOD CELLS (BEAKER) (test inov=410) 0 /100 WBC 0-0 NEUTROPHILS RELATIVE PERCENT (BEAKER) (test xucd=227) 56 % LYMPHOCYTES RELATIVE PERCENT (BEAKER) (test vbuv=813) 37 % MONOCYTES RELATIVE PERCENT (BEAKER) (test lrvj=863) 5 % EOSINOPHILS RELATIVE PERCENT (BEAKER) (test jgsc=382) 2 % BASOPHILS RELATIVE PERCENT (BEAKER) (test pkmc=573) 0 % NEUTROPHILS ABSOLUTE COUNT (BEAKER) (test yfdi=313) 2.57 K/ L 1.56-6.13 LYMPHOCYTES ABSOLUTE COUNT (BEAKER) (test wygf=105) 1.67 K/ L 1.18-3.74 MONOCYTES ABSOLUTE COUNT (BEAKER) (test tvlz=065) 0.21 K/ L 0.24-0.36 EOSINOPHILS ABSOLUTE COUNT (BEAKER) (test ncsv=947) 0.10 K/ L 0.04-0.36 BASOPHILS ABSOLUTE COUNT (BEAKER) (test ahnm=324) 0.00 K/ L 0.01-0.08 IMMATURE GRANULOCYTES-RELATIVE PERCENT (BEAKER) (test qwbi=7356) 0 % 0-1 U/S, ABDOMINAL, [id number] 14:59:00Reason for exam:->ascitesFINAL REPORT INDICATION: Ascites. Request for paracentesis. TECHNIQUE: Abdominal ultrasound limited. COMPARISON: None. FINDINGS:Ultrasound was performed in the abdomen, including all four quadrants. No ascites was dem onstrated. Distended bladder noted. IMPRESSION: Paracentesis not performed. Sign ed: Nancy Harris MDReport Verified Date/Time: 04/13/2018 14:59:48 Reading L ocation: [facility] B1 P006J Ultrasound Reading Room HROMBIN TIME/[id number] 12:20:00* Test Item Value Reference Range Comments PROTIME (BEAKER) (test hdhp=578) 13.8 seconds 11.7-14.7 INR (BEAKER) (test mwog=972) 1.1 <=5.9 RECOMMENDED COUMADIN/WARFARIN INR THERAPY RANGESSTANDARD DOSE: 2.0 - 3.0 Inclu yossi: PROPHYLAXIS for venous thrombosis, systemic embolization; TREATMENT for [place] ous thrombosis and/or pulmonary embolus.HIGH RISK: Target INR is 2.5-3.5 for pat ients with mechanical heart valves.BASIC METABOLIC [id number] 07:32:00* Test Item Value Reference Range Comments SODIUM (BEAKER) (test nwlx=167) 132 meq/L 136-145 POTASSIUM (BEAKER) (test hobc=434) 3.8 meq/L 3.5-5.1 CHLORIDE (BEAKER) (test mpfn=736) 105 meq/L 98-107 CO2 (BEAKER) (test ylsl=558) 23 meq/L 22-29 BLOOD UREA NITROGEN (BEAKER) (test iqio=998) 12 mg/dL 7-21 CREATININE (BEAKER) (test tqaj=941) 0.73 mg/dL 0.57-1.25 GLUCOSE RANDOM (BEAKER) (test vnqo=131) 213 mg/dL 70-105 CALCIUM (BEAKER) (test oxmj=935) 8.8 mg/dL 8.4-10.2 EGFR (BEAKER) (test hhrs=2555) 89 mL/min/1.73 sq m ESTIMATED GFR IS NOT ACCURATE CREATININE CLEARANCE IN PREDICTING GLOMERULAR FILTRATION RATE. ESTIMATED GFR IS NOT APPLICABLE FOR DIALYSIS PATIENTS. CBC (HEMOGRAM ONLY)2018-04-13 06:39:00* Test Item Value Reference Range Comments WHITE BLOOD CELL COUNT (BEAKER) (test pyfx=962) 13.4 K/ L 3.5-10.5 RED BLOOD CELL COUNT (BEAKER) (test orig=635) 3.52 M/ L 3.93-5.22 HEMOGLOBIN (BEAKER) (test rdyt=541) 9.4 GM/DL 11.2-15.7 HEMATOCRIT (BEAKER) (test lkdi=755) 30.7 % 34.1-44.9 MEAN CORPUSCULAR VOLUME (BEAKER) (test dubg=233) 87.2 fL 79.4-94.8 MEAN CORPUSCULAR HEMOGLOBIN (BEAKER) (test fztk=477) 26.7 pg 25.6-32.2 MEAN CORPUSCULAR HEMOGLOBIN CONC (BEAKER) (test jxib=008) 30.6 GM/DL 32.2-35.5 RED CELL DISTRIBUTION WIDTH (BEAKER) (test oonr=186) 16.1 % 11.7-14.4 PLATELET COUNT (BEAKER) (test jsrg=254) 207 K/CU MM 150-450 MEAN PLATELET VOLUME (BEAKER) (test zyzj=448) 10.6 fL 9.4-12.3 NUCLEATED RED BLOOD CELLS (BEAKER) (test vnsa=925) 0 /100 WBC 0-0 URINALYSIS W/ REFLEX URINE [id number] 16:53:00* Test Item Value Reference Range Comments COLOR (BEAKER) (test bkpc=273) Colorless CLARITY (BEAKER) (test zyix=824) Clear SPECIFIC GRAVITY UA (BEAKER) (test olwg=014) 1.007 1.001-1.035 PH UA (BEAKER) (test ivuu=197) 7.5 5.0-8.0 PROTEIN UA (BEAKER) (test lmqx=051) Negative Negative GLUCOSE UA (BEAKER) (test bipn=299) Negative Negative KETONES UA (BEAKER) (test fgnc=103) Negative Negative BILIRUBIN UA (BEAKER) (test xiga=594) Negative Negative BLOOD UA (BEAKER) (test opkq=827) Negative Negative NITRITE UA (BEAKER) (test igja=721) Negative Negative LEUKOCYTE ESTERASE UA (BEAKER) (test jjid=720) Negative Negative UROBILINOGEN UA (BEAKER) (test lvlc=918) 0.2 mg/dL 0.2-1.0 RBC UA (BEAKER) (test fxop=551) 0 /HPF WBC UA (BEAKER) (test bkyd=411) 1 /HPF BACTERIA (BEAKER) (test loba=912) Occasional SQUAMOUS EPITHELIAL (BEAKER) (test earu=890) 1 /HPF SOURCE(BEAKER) (test kfln=3718) BASIC METABOLIC [id number] 06:46:00* Test Item Value Reference Range Comments SODIUM (BEAKER) (test bgwl=785) 137 meq/L 136-145 POTASSIUM (BEAKER) (test fokl=223) 4.2 meq/L 3.5-5.1 CHLORIDE (BEAKER) (test orkv=865) 107 meq/L 98-107 CO2 (BEAKER) (test dddo=656) 24 meq/L 22-29 BLOOD UREA NITROGEN (BEAKER) (test ntqn=141) 11 mg/dL 7-21 CREATININE (BEAKER) (test qvbq=246) 0.69 mg/dL 0.57-1.25 GLUCOSE RANDOM (BEAKER) (test jbbi=137) 121 mg/dL 70-105 CALCIUM (BEAKER) (test lcnj=772) 9.3 mg/dL 8.4-10.2 EGFR (BEAKER) (test izlj=4993) 95 mL/min/1.73 sq m ESTIMATED GFR IS NOT ACCURATE CREATININE CLEARANCE IN PREDICTING GLOMERULAR FILTRATION RATE. ESTIMATED GFR IS NOT APPLICABLE FOR DIALYSIS PATIENTS. LACTATE DEHYDROGENASE (LDH)2018-04-12 06:44:00* Test Item Value Reference Range Comments LACTATE DEHYDROGENASE (BEAKER) (test efph=552) 230 U/L 125-220 CBC W/PLT COUNT & AUTO [id number] 06:30:00* Test Item Value Reference Range Comments WHITE BLOOD CELL COUNT (BEAKER) (test tsqq=428) 11.6 K/ L 3.5-10.5 RED BLOOD CELL COUNT (BEAKER) (test prai=782) 3.48 M/ L 3.93-5.22 HEMOGLOBIN (BEAKER) (test fjlk=336) 9.2 GM/DL 11.2-15.7 HEMATOCRIT (BEAKER) (test clrw=939) 30.0 % 34.1-44.9 MEAN CORPUSCULAR VOLUME (BEAKER) (test jbty=196) 86.2 fL 79.4-94.8 MEAN CORPUSCULAR HEMOGLOBIN (BEAKER) (test wvpp=014) 26.4 pg 25.6-32.2 MEAN CORPUSCULAR HEMOGLOBIN CONC (BEAKER) (test svlc=322) 30.7 GM/DL 32.2-35.5 RED CELL DISTRIBUTION WIDTH (BEAKER) (test kvka=030) 15.9 % 11.7-14.4 PLATELET COUNT (BEAKER) (test qwpd=694) 206 K/CU MM 150-450 MEAN PLATELET VOLUME (BEAKER) (test npes=241) 10.8 fL 9.4-12.3 NUCLEATED RED BLOOD CELLS (BEAKER) (test xmzk=098) 0 /100 WBC 0-0 NEUTROPHILS RELATIVE PERCENT (BEAKER) (test qsbk=764) 84 % LYMPHOCYTES RELATIVE PERCENT (BEAKER) (test gcsa=875) 7 % MONOCYTES RELATIVE PERCENT (BEAKER) (test ntfs=689) 8 % EOSINOPHILS RELATIVE PERCENT (BEAKER) (test khvr=597) 0 % BASOPHILS RELATIVE PERCENT (BEAKER) (test dbwq=522) 0 % NEUTROPHILS ABSOLUTE COUNT (BEAKER) (test ddsh=000) 9.75 K/ L 1.56-6.13 LYMPHOCYTES ABSOLUTE COUNT (BEAKER) (test naik=909) 0.82 K/ L 1.18-3.74 MONOCYTES ABSOLUTE COUNT (BEAKER) (test ggzz=080) 0.98 K/ L 0.24-0.36 EOSINOPHILS ABSOLUTE COUNT (BEAKER) (test lcwt=788) 0.00 K/ L 0.04-0.36 BASOPHILS ABSOLUTE COUNT (BEAKER) (test esue=814) 0.01 K/ L 0.01-0.08 IMMATURE GRANULOCYTES-RELATIVE PERCENT (BEAKER) (test qeeb=5798) 1 % 0-1 CBC (HEMOGRAM ONLY)2018-04-09 06:35:00* Test Item Value Reference Range Comments WHITE BLOOD CELL COUNT (BEAKER) (test qpox=227) 4.7 K/ L 3.5-10.5 RED BLOOD CELL COUNT (BEAKER) (test klyo=759) 2.90 M/ L 3.93-5.22 HEMOGLOBIN (BEAKER) (test uleu=040) 7.6 GM/DL 11.2-15.7 HEMATOCRIT (BEAKER) (test ygel=706) 24.3 % 34.1-44.9 MEAN CORPUSCULAR VOLUME (BEAKER) (test lqje=566) 83.8 fL 79.4-94.8 MEAN CORPUSCULAR HEMOGLOBIN (BEAKER) (test ochh=372) 26.2 pg 25.6-32.2 MEAN CORPUSCULAR HEMOGLOBIN CONC (BEAKER) (test okxt=038) 31.3 GM/DL 32.2-35.5 RED CELL DISTRIBUTION WIDTH (BEAKER) (test kogs=238) 15.6 % 11.7-14.4 PLATELET COUNT (BEAKER) (test muth=005) 230 K/CU MM 150-450 MEAN PLATELET VOLUME (BEAKER) (test ufxu=443) 10.5 fL 9.4-12.3 NUCLEATED RED BLOOD CELLS (BEAKER) (test wjgt=668) 0 /100 WBC 0-0 BASIC METABOLIC [id number] 06:17:00* Test Item Value Reference Range Comments SODIUM (BEAKER) (test lbns=217) 139 meq/L 136-145 POTASSIUM (BEAKER) (test abqi=537) 3.6 meq/L 3.5-5.1 CHLORIDE (BEAKER) (test qfmb=639) 109 meq/L 98-107 CO2 (BEAKER) (test zpvc=728) 25 meq/L 22-29 BLOOD UREA NITROGEN (BEAKER) (test gkvn=735) 11 mg/dL 7-21 CREATININE (BEAKER) (test savm=733) 0.75 mg/dL 0.57-1.25 GLUCOSE RANDOM (BEAKER) (test bqxi=121) 107 mg/dL 70-105 CALCIUM (BEAKER) (test nhmu=275) 9.0 mg/dL 8.4-10.2 EGFR (BEAKER) (test lbgv=7463) 86 mL/min/1.73 sq m ESTIMATED GFR IS NOT ACCURATE CREATININE CLEARANCE IN PREDICTING GLOMERULAR FILTRATION RATE. ESTIMATED GFR IS NOT APPLICABLE FOR DIALYSIS PATIENTS. URINALYSIS W/ [id number] 19:46:00* Test Item Value Reference Range Comments COLOR (BEAKER) (test fnit=381) Yellow CLARITY (BEAKER) (test nxpu=543) Hazy SPECIFIC GRAVITY UA (BEAKER) (test ynjg=853) 1.012 1.001-1.035 PH UA (BEAKER) (test lvmf=893) 6.0 5.0-8.0 PROTEIN UA (BEAKER) (test djhe=698) 10 mg/dL Negative GLUCOSE UA (BEAKER) (test bawa=138) Negative Negative KETONES UA (BEAKER) (test odio=997) Negative Negative BILIRUBIN UA (BEAKER) (test dofa=421) Negative Negative BLOOD UA (BEAKER) (test lnig=936) Negative Negative NITRITE UA (BEAKER) (test vieg=592) Negative Negative LEUKOCYTE ESTERASE UA (BEAKER) (test ayui=996) Negative Negative UROBILINOGEN UA (BEAKER) (test lxxs=262) 0.2 mg/dL 0.2-1.0 RBC UA (BEAKER) (test zutm=741) 1 /HPF WBC UA (BEAKER) (test vqxc=507) 8 /HPF BACTERIA (BEAKER) (test clhj=808) Moderate MUCUS (BEAKER) (test whpw=0663) Occasional SQUAMOUS EPITHELIAL (BEAKER) (test ynln=272) 4 /HPF SOURCE(BEAKER) (test ragx=3711) Urine, Voided CBC W/PLT COUNT & AUTO [id number] 06:25:00* Test Item Value Reference Range Comments WHITE BLOOD CELL COUNT (BEAKER) (test wphm=738) 3.9 K/ L 3.5-10.5 RED BLOOD CELL COUNT (BEAKER) (test clia=816) 2.96 M/ L 3.93-5.22 HEMOGLOBIN (BEAKER) (test dqfa=423) 7.7 GM/DL 11.2-15.7 HEMATOCRIT (BEAKER) (test ozsx=526) 24.9 % 34.1-44.9 MEAN CORPUSCULAR VOLUME (BEAKER) (test qytn=910) 84.1 fL 79.4-94.8 MEAN CORPUSCULAR HEMOGLOBIN (BEAKER) (test izcv=489) 26.0 pg 25.6-32.2 MEAN CORPUSCULAR HEMOGLOBIN CONC (BEAKER) (test ocxh=882) 30.9 GM/DL 32.2-35.5 RED CELL DISTRIBUTION WIDTH (BEAKER) (test wpqe=414) 15.9 % 11.7-14.4 PLATELET COUNT (BEAKER) (test qcel=640) 210 K/CU MM 150-450 MEAN PLATELET VOLUME (BEAKER) (test pxxk=484) 9.5 fL 9.4-12.3 NUCLEATED RED BLOOD CELLS (BEAKER) (test lpqj=244) 0 /100 WBC 0-0 NEUTROPHILS RELATIVE PERCENT (BEAKER) (test phxf=975) 35 % LYMPHOCYTES RELATIVE PERCENT (BEAKER) (test ovpn=098) 40 % MONOCYTES RELATIVE PERCENT (BEAKER) (test mgbt=388) 13 % EOSINOPHILS RELATIVE PERCENT (BEAKER) (test jbex=408) 11 % BASOPHILS RELATIVE PERCENT (BEAKER) (test wrnm=416) 1 % NEUTROPHILS ABSOLUTE COUNT (BEAKER) (test udfh=216) 1.36 K/ L 1.56-6.13 LYMPHOCYTES ABSOLUTE COUNT (BEAKER) (test jeea=511) 1.56 K/ L 1.18-3.74 MONOCYTES ABSOLUTE COUNT (BEAKER) (test kzkk=871) 0.50 K/ L 0.24-0.36 EOSINOPHILS ABSOLUTE COUNT (BEAKER) (test offl=592) 0.44 K/ L 0.04-0.36 BASOPHILS ABSOLUTE COUNT (BEAKER) (test nhmb=096) 0.02 K/ L 0.01-0.08 IMMATURE GRANULOCYTES-RELATIVE PERCENT (BEAKER) (test vkfs=2523) 0 % 0-1 BASIC METABOLIC [id number] 05:59:00* Test Item Value Reference Range Comments SODIUM (BEAKER) (test qtvd=162) 141 meq/L 136-145 POTASSIUM (BEAKER) (test beyc=467) 3.4 meq/L 3.5-5.1 CHLORIDE (BEAKER) (test wytu=490) 111 meq/L 98-107 CO2 (BEAKER) (test psav=365) 24 meq/L 22-29 BLOOD UREA NITROGEN (BEAKER) (test xksq=254) 9 mg/dL 7-21 CREATININE (BEAKER) (test mgra=205) 0.69 mg/dL 0.57-1.25 GLUCOSE RANDOM (BEAKER) (test mumn=369) 88 mg/dL 70-105 CALCIUM (BEAKER) (test ivro=085) 8.6 mg/dL 8.4-10.2 EGFR (BEAKER) (test uwzv=7131) 95 mL/min/1.73 sq m ESTIMATED GFR IS NOT ACCURATE CREATININE CLEARANCE IN PREDICTING GLOMERULAR FILTRATION RATE. ESTIMATED GFR IS NOT APPLICABLE FOR DIALYSIS PATIENTS. [id number] 16:18:00* Test Item Value Reference Range Comments FERRITIN (BEAKER) (test olco=734) 10 ng/mL 5-275 VITAMIN B12 AND [id number] 16:18:00* Test Item Value Reference Range Comments VITAMIN B12 (BEAKER) (test eyen=575) 1464 pg/mL 213-816 FOLATE (BEAKER) (test hcsr=611) 16.2 ng/mL >=7.0 RAD, ABDOMEN/KUB, 1 VIEW [id number] 15:52:00Reason for exam:->diarrheaFINAL REPORT Comparison: 12/04/2007 Discussion: Abdomen: Bowel gas pattern is nonobstructed. There is no free intraperitoneal air. Right upper quadrant cholecystectomy clips noted. Regional skeletal structures are un remarkable. Impression: 1. Nonspecific bowel gas pattern. Signed: Selvin Perkins Verified Date/Time: 04/07/2018 15:52:29 Reading Location: [facility] C0[facility] Consult Reading Room Electronically signed by: SELVIN PERKINS M.D. on 2017 03:52 PM IRON, TIBC, % SAT. (WITHOUT FERRITIN)2018-04-07 15:43:00* Test Item Value Reference Range Comments IRON (BEAKER) (test xfnv=092) 40 ug/dL 40-160 TOTAL IRON BINDING CAPACITY (BEAKER) (test ydwu=257) 403 ug/dL 250-450 IRON % SATURATION (2) (BEAKER) (test fybh=6532) 10 % 20-55 BASIC METABOLIC [id number] 06:34:00* Test Item Value Reference Range Comments SODIUM (BEAKER) (test mbcn=188) 140 meq/L 136-145 POTASSIUM (BEAKER) (test bzpl=055) 3.5 meq/L 3.5-5.1 CHLORIDE (BEAKER) (test esnz=543) 111 meq/L 98-107 CO2 (BEAKER) (test ykjv=562) 22 meq/L 22-29 BLOOD UREA NITROGEN (BEAKER) (test rsgn=590) 8 mg/dL 7-21 CREATININE (BEAKER) (test vwdy=730) 0.68 mg/dL 0.57-1.25 GLUCOSE RANDOM (BEAKER) (test hhgn=143) 96 mg/dL 70-105 CALCIUM (BEAKER) (test dfgx=238) 9.0 mg/dL 8.4-10.2 EGFR (BEAKER) (test dhxs=7665) 97 mL/min/1.73 sq m ESTIMATED GFR IS NOT ACCURATE CREATININE CLEARANCE IN PREDICTING GLOMERULAR FILTRATION RATE. ESTIMATED GFR IS NOT APPLICABLE FOR DIALYSIS PATIENTS. CBC W/PLT COUNT & AUTO [id number] 05:21:00* Test Item Value Reference Range Comments WHITE BLOOD CELL COUNT (BEAKER) (test czpx=029) 3.5 K/ L 3.5-10.5 RED BLOOD CELL COUNT (BEAKER) (test ctxr=443) 2.81 M/ L 3.93-5.22 HEMOGLOBIN (BEAKER) (test jnkp=830) 7.2 GM/DL 11.2-15.7 HEMATOCRIT (BEAKER) (test kymm=125) 23.7 % 34.1-44.9 MEAN CORPUSCULAR VOLUME (BEAKER) (test rvsm=184) 84.3 fL 79.4-94.8 MEAN CORPUSCULAR HEMOGLOBIN (BEAKER) (test uyol=716) 25.6 pg 25.6-32.2 MEAN CORPUSCULAR HEMOGLOBIN CONC (BEAKER) (test kxhe=893) 30.4 GM/DL 32.2-35.5 RED CELL DISTRIBUTION WIDTH (BEAKER) (test asin=439) 16.5 % 11.7-14.4 PLATELET COUNT (BEAKER) (test euzp=019) 227 K/CU MM 150-450 MEAN PLATELET VOLUME (BEAKER) (test uoym=925) 10.0 fL 9.4-12.3 NUCLEATED RED BLOOD CELLS (BEAKER) (test cxun=521) 0 /100 WBC 0-0 NEUTROPHILS RELATIVE PERCENT (BEAKER) (test scxq=977) 33 % LYMPHOCYTES RELATIVE PERCENT (BEAKER) (test bbck=447) 43 % MONOCYTES RELATIVE PERCENT (BEAKER) (test lpwo=641) 12 % EOSINOPHILS RELATIVE PERCENT (BEAKER) (test nyec=019) 11 % BASOPHILS RELATIVE PERCENT (BEAKER) (test uguc=988) 1 % NEUTROPHILS ABSOLUTE COUNT (BEAKER) (test bokx=890) 1.17 K/ L 1.56-6.13 LYMPHOCYTES ABSOLUTE COUNT (BEAKER) (test laar=670) 1.51 K/ L 1.18-3.74 MONOCYTES ABSOLUTE COUNT (BEAKER) (test bmlc=387) 0.43 K/ L 0.24-0.36 EOSINOPHILS ABSOLUTE COUNT (BEAKER) (test yrbl=291) 0.40 K/ L 0.04-0.36 BASOPHILS ABSOLUTE COUNT (BEAKER) (test wvdu=261) 0.02 K/ L 0.01-0.08 IMMATURE GRANULOCYTES-RELATIVE PERCENT (BEAKER) (test trig=4748) 0 % 0-1 RESPIRATORY PANEL [id number] 21:01:00* Test Item Value Reference Range Comments HUMAN METAPNEUMOVIRUS (BEAKER) (test weye=2942) Not detected Not detected, Equivocal RHINOVIRUS (BEAKER) (test mfem=7241) Not detected Not detected, Equivocal INFLUENZA A (BEAKER) (test wydl=5378) Not detected Not detected, Equivocal INFLUENZA A (NO SUBTYPE) (test jpid=6410) Not detected, Equivocal INFLUENZA A SUBTYPE H1 (BEAKER) (test nidv=8227) Not detected, Equivocal INFLUENZA A SUBTYPE H3 (BEAKER) (test fsly=1325) Not detected, Equivocal INFLUENZA A SUBTYPE H1-2009 (BEAKER) (test fxai=4770) Not detected, Equivocal INFLUENZA B (BEAKER) (test zxwe=0141) Not detected Not detected, Equivocal RESPIRATORY SYNCYTIAL VIRUS (BEAKER) (test utzk=6253) Not detected Not detected, Equivocal PARAINFLUENZA VIRUS 1 (BEAKER) (test dbjz=7664) Not detected Not detected, Equivocal PARAINFLUENZA VIRUS 2 (BEAKER) (test yuly=8811) Not detected Not detected, Equivocal PARAINFLUENZA VIRUS 3 (BEAKER) (test zpxo=9679) Not detected Not detected, Equivocal PARAINFLUENZA VIRUS 4 (BEAKER) (test aylj=5229) Not detected Not detected, Equivocal ADENOVIRUS (BEAKER) (test zakk=6315) Not detected Not detected, Equivocal CORONAVIRUS 229E (BEAKER) (test leuz=6204) Not detected Not detected, Equivocal CORONAVIRUS HKU1 (BEAKER) (test zdbm=8355) Not detected Not detected, Equivocal CORONAVIRUS NL63 (BEAKER) (test zjvh=2421) Not detected Not detected, Equivocal CORONAVIRUS OC43 (BEAKER) (test vooy=9841) Not detected Not detected, Equivocal BORDETELLA PERTUSSIS (BEAKER) (test mglu=5865) Not detected Not detected, Equivocal CHLAMYDOPHILA PNEUMONIAE (BEAKER) (test pgnp=6602) Not detected Not detected, Equivocal MYCOPLASMA PNEUMONIAE (BEAKER) (test jnag=1423) Not detected Not detected, Equivocal Other viruses and bacteria not targeted by this PCR panel cannot be excluded; th erefore clinical correlation and follow up of serology, culture results, and oth er molecular studies is required. The results are not intended to be used as the sole means for clinical diagnosis or patient management decisions. This sample was tested at the [facility] Molecular Diagnostics Laboratory using the PLASTIQA rray Respiratory Panel. It is FDA cleared and has been verified and approved by the [facility] for clinical use on nasal swab specim ens. It is not FDA-cleared for use on bronchial wash/lavage samples. However, fo r this sample type, validation was performed and test characteristics were deter mined and approved, by [facility] for clinical use u nder the Clinical Laboratory Improvement Amendments (CLIA) of 1988 requirements. Therefore, FDA clearance is not required. This laboratory is CLIA-certified an d [employer] ([employer])-accredited to perform high complexity t esting.C. DIFFICILE GDH [id number] 20:51:00* Test Item Value Reference Range Comments CDT TOXIN (test vxvt=[id number]) Negative Negative CDT GDH ANTIGEN (test qwgy=[id number]) Positive Negative C. difficile present but toxin not detected. Indicates colonization with non-toxigenic strain or level of toxin below detectable levels. No need for enteric isolation. Treatment is rarely needed (only when strong clinical suspicion for Clostridium difficile infection) Testing performed by [employer] Rapid [employer] Assay. For GDH, published sensitivity of the assay is 98.7% compared to cytotoxicity testing. For Toxin AB, publishe d sensitivity is 87.8% and specificity 99.4% compared to cytotoxicity testing.Ve rification of kit performance was done by the [facility] Microbiology Lab prior to cl inical use.URINALYSIS W/ REFLEX URINE [id number] 02:28:00* Test Item Value Reference Range Comments COLOR (BEAKER) (test towu=904) Yellow CLARITY (BEAKER) (test bjxd=631) Hazy SPECIFIC GRAVITY UA (BEAKER) (test enqt=409) 1.014 1.001-1.035 PH UA (BEAKER) (test zlfm=405) 6.5 5.0-8.0 PROTEIN UA (BEAKER) (test gneq=018) 100 mg/dL Negative GLUCOSE UA (BEAKER) (test yekw=824) Negative Negative KETONES UA (BEAKER) (test sxng=647) Negative Negative BILIRUBIN UA (BEAKER) (test clec=771) Negative Negative BLOOD UA (BEAKER) (test sohn=661) Moderate Negative NITRITE UA (BEAKER) (test jzaa=956) Negative Negative LEUKOCYTE ESTERASE UA (BEAKER) (test zegq=941) Negative Negative UROBILINOGEN UA (BEAKER) (test wzng=506) 0.2 mg/dL 0.2-1.0 RBC UA (BEAKER) (test mhss=462) > /HPF WBC UA (BEAKER) (test cfgf=515) 4 /HPF BACTERIA (BEAKER) (test xbkr=261) Moderate MUCUS (BEAKER) (test uexe=9290) Few SQUAMOUS EPITHELIAL (BEAKER) (test kwdx=950) 5 /HPF AMORPHOUS CRYSTALS (BEAKER) (test cgnn=2120) Few SOURCE(BEAKER) (test aaoe=1020) SCREEN, [id number] 02:26:00* Test Item Value Reference Range Comments TEST URINE (BEAKER) (test qkld=606) Negative CT, [id number] 01:50:00FINAL REPORT EXAMINATION: CT SCAN OF THE ABDOMEN AND PELVIS CLINICAL HISTORY:Intractable abdominal pain, nausea and vomiting COMPARISON EXAM: 03/12/2018 TECHNIQUE: Axial noncontrast tomographic images were acquired through the abdomen and pelvis The exam was performed according to our departmental dose optimization program which includes automated exposure control, adjustment of the mA and/or kV according to patient's size and/or use of iterative reconstructive technique. FINDINGS: The heart size is normal. No evidence of a pericardial or pleural effusion. Subtle opacities are noted in the dependent portion of both lung bases. Atelectasis and/or scarring favored. Limited noncontrast images of the liver are grossly unremarkable. The gallbladder is absent. No evidence of pathologic biliary dilatation. As before, the spleen is mildly prominent measuring 13.5 cm. Pancreatic atrophy is again noted, most pronounced involving the distal body and tail. No definitive evidence of acute pancreatitis. Further characterization of the pancreas is limited by the absence of IV contrast. The adrenal glands are normal in size and shape. Multiple tiny 1-2 mm nonobstructing renal calculi are again noted within the renal calyces. No evidence of associated hydronephrosis, hydroureter or perinephric/periureteral edema. No evidence of high-grade mechanical bowel obstruction, pneumatosis or pneumoperitoneum. A small to moderate volume of liquid stool is noted within the colon, nonspecific. No s ignificant mesenteric inflammation. Further characterization the bowel is limite d by the absence of contrast. No evidence of appendicitis. No evidence of an adn exal mass. The bladder is unremarkable. No significant intra-abdominal or pelvic free fluid. No evidence of an acute osseous abnormality. IMPRESSION: Redemonst rated tiny nonobstructing bilateral renal calculi. No evidence of renal obstruct ion. Pancreatic atrophy, again similar to previous. Signed: Yonatan Clements MDRepor t Verified Date/Time: 04/06/2018 01:50:07 Reading Location: [address] Reading Room 18 01:50 AM [id number] 00:42:00* Test Item Value Reference Range Comments LIPASE (BEAKER) (test rizr=057) 12 U/L 8-78 COMPREHENSIVE METABOLIC [id number] 00:42:00* Test Item Value Reference Range Comments TOTAL PROTEIN (BEAKER) (test abih=827) 7.6 gm/dL 6.0-8.3 ALBUMIN (BEAKER) (test cwfm=4915) 4.1 g/dL 3.5-5.0 ALKALINE PHOSPHATASE (BEAKER) (test fmhz=761) 119 U/L 40-150 BILIRUBIN TOTAL (BEAKER) (test lunr=290) 0.3 mg/dL 0.2-1.2 SODIUM (BEAKER) (test uskp=201) 142 meq/L 136-145 POTASSIUM (BEAKER) (test jwkn=744) 3.6 meq/L 3.5-5.1 CHLORIDE (BEAKER) (test nloe=959) 113 meq/L 98-107 CO2 (BEAKER) (test wiio=862) 20 meq/L 22-29 BLOOD UREA NITROGEN (BEAKER) (test dgzk=922) 12 mg/dL 7-21 CREATININE (BEAKER) (test xswv=915) 0.75 mg/dL 0.57-1.25 GLUCOSE RANDOM (BEAKER) (test lzjc=101) 118 mg/dL 70-105 CALCIUM (BEAKER) (test snsi=636) 9.4 mg/dL 8.4-10.2 AST (SGOT) (BEAKER) (test ramt=889) 23 U/L 5-34 ALT (SGPT) (BEAKER) (test ccmp=410) 21 U/L 6-55 EGFR (BEAKER) (test abmy=6666) 86 mL/min/1.73 sq m ESTIMATED GFR IS NOT ACCURATE CREATININE CLEARANCE IN PREDICTING GLOMERULAR FILTRATION RATE. ESTIMATED GFR IS NOT APPLICABLE FOR DIALYSIS PATIENTS. CBC W/PLT COUNT & AUTO [id number] 00:26:00* Test Item Value Reference Range Comments WHITE BLOOD CELL COUNT (BEAKER) (test dxnr=680) 5.8 K/ L 3.5-10.5 RED BLOOD CELL COUNT (BEAKER) (test qgyo=561) 3.35 M/ L 3.93-5.22 HEMOGLOBIN (BEAKER) (test zpsq=786) 8.8 GM/DL 11.2-15.7 HEMATOCRIT (BEAKER) (test uaxa=505) 28.1 % 34.1-44.9 MEAN CORPUSCULAR VOLUME (BEAKER) (test aaho=599) 83.9 fL 79.4-94.8 MEAN CORPUSCULAR HEMOGLOBIN (BEAKER) (test wwqu=727) 26.3 pg 25.6-32.2 MEAN CORPUSCULAR HEMOGLOBIN CONC (BEAKER) (test ctdu=683) 31.3 GM/DL 32.2-35.5 RED CELL DISTRIBUTION WIDTH (BEAKER) (test jiye=207) 16.6 % 11.7-14.4 PLATELET COUNT (BEAKER) (test ezlx=666) 339 K/CU MM 150-450 MEAN PLATELET VOLUME (BEAKER) (test dulh=730) 9.9 fL 9.4-12.3 NUCLEATED RED BLOOD CELLS (BEAKER) (test ykzt=331) 0 /100 WBC 0-0 NEUTROPHILS RELATIVE PERCENT (BEAKER) (test jsny=712) 46 % LYMPHOCYTES RELATIVE PERCENT (BEAKER) (test ubjl=125) 36 % MONOCYTES RELATIVE PERCENT (BEAKER) (test nmsj=811) 14 % EOSINOPHILS RELATIVE PERCENT (BEAKER) (test ztbs=844) 3 % BASOPHILS RELATIVE PERCENT (BEAKER) (test obxh=006) 0 % NEUTROPHILS ABSOLUTE COUNT (BEAKER) (test fzfv=613) 2.66 K/ L 1.56-6.13 LYMPHOCYTES ABSOLUTE COUNT (BEAKER) (test cxjm=858) 2.10 K/ L 1.18-3.74 MONOCYTES ABSOLUTE COUNT (BEAKER) (test dzqd=652) 0.82 K/ L 0.24-0.36 EOSINOPHILS ABSOLUTE COUNT (BEAKER) (test npwk=767) 0.16 K/ L 0.04-0.36 BASOPHILS ABSOLUTE COUNT (BEAKER) (test bege=118) 0.02 K/ L 0.01-0.08 IMMATURE GRANULOCYTES-RELATIVE PERCENT (BEAKER) (test rbhj=9507) 0 % 0-1 [id number] 08:56:00* Test Item Value Reference Range Comments MAGNESIUM (BEAKER) (test yylc=589) 2.0 mg/dL 1.6-2.6 BASIC METABOLIC [id number] 08:32:00* Test Item Value Reference Range Comments SODIUM (BEAKER) (test fraq=283) 142 meq/L 136-145 POTASSIUM (BEAKER) (test ewhx=377) 4.5 meq/L 3.5-5.1 CHLORIDE (BEAKER) (test hdok=013) 106 meq/L 98-107 CO2 (BEAKER) (test dbfw=148) 27 meq/L 22-29 BLOOD UREA NITROGEN (BEAKER) (test lgfd=362) 7 mg/dL 7-21 CREATININE (BEAKER) (test lvrn=485) 0.67 mg/dL 0.57-1.25 GLUCOSE RANDOM (BEAKER) (test kxou=235) 108 mg/dL 70-105 CALCIUM (BEAKER) (test lgla=305) 8.9 mg/dL 8.4-10.2 EGFR (BEAKER) (test jlks=8232) 99 mL/min/1.73 sq m ESTIMATED GFR IS NOT ACCURATE CREATININE CLEARANCE IN PREDICTING GLOMERULAR FILTRATION RATE. ESTIMATED GFR IS NOT APPLICABLE FOR DIALYSIS PATIENTS. CBC W/PLT COUNT & AUTO [id number] 06:41:00* Test Item Value Reference Range Comments WHITE BLOOD CELL COUNT (BEAKER) (test tebu=144) 2.6 K/ L 3.5-10.5 RED BLOOD CELL COUNT (BEAKER) (test jloh=877) 2.91 M/ L 3.93-5.22 HEMOGLOBIN (BEAKER) (test ktot=351) 7.5 GM/DL 11.2-15.7 HEMATOCRIT (BEAKER) (test ttqs=543) 24.7 % 34.1-44.9 MEAN CORPUSCULAR VOLUME (BEAKER) (test sbha=490) 84.9 fL 79.4-94.8 MEAN CORPUSCULAR HEMOGLOBIN (BEAKER) (test eylo=234) 25.8 pg 25.6-32.2 MEAN CORPUSCULAR HEMOGLOBIN CONC (BEAKER) (test qsao=196) 30.4 GM/DL 32.2-35.5 RED CELL DISTRIBUTION WIDTH (BEAKER) (test lvlz=090) 18.2 % 11.7-14.4 PLATELET COUNT (BEAKER) (test vxxg=952) 366 K/CU MM 150-450 MEAN PLATELET VOLUME (BEAKER) (test jqrs=577) 10.2 fL 9.4-12.3 NUCLEATED RED BLOOD CELLS (BEAKER) (test wyax=686) 0 /100 WBC 0-0 (CELLAVISION MANUAL DIFF)2018-03-27 06:41:00* Test Item Value Reference Range Comments NEUTROPHILS - REL (CELLAVISION)(BEAKER) (test gijy=3623) 36 % LYMPHOCYTES - REL (CELLAVISION)(BEAKER) (test fgzd=8010) 53 % MONOCYTES - REL (CELLAVISION)(BEAKER) (test axur=2863) 4 % EOSINOPHILS - REL (CELLAVISION)(BEAKER) (test wstf=8458) 6 % BASOPHILS - REL (CELLAVISION)(BEAKER) (test ysbf=2858) 1 % NEUTROPHILS - ABS (CELLAVISION)(BEAKER) (test vtwe=0461) 0.94 K/ul 1.56-6.13 LYMPHOCYTES - ABS (CELLAVISION)(BEAKER) (test xykm=2035) 1.38 K/ul 1.18-3.74 MONOCYTES - ABS (CELLAVISION)(BEAKER) (test hxko=5916) 0.10 K/uL 0.24-0.36 EOSINOPHILS - ABS (CELLAVISION)(BEAKER) (test vbyi=8735) 0.16 K/uL 0.04-0.36 BASOPHILS - ABS (CELLAVISION)(BEAKER) (test yuor=1065) 0.03 K/uL 0.01-0.08 TOTAL COUNTED (BEAKER) (test zuba=2837) 100 WBC MORPHOLOGY (BEAKER) (test iocg=515) Normal PLT MORPHOLOGY (BEAKER) (test abjb=747) Normal ANISOCYTOSIS (BEAKER) (test dueh=602) 1+ few MICROCYTES (BEAKER) (test zkfh=469) 1+ few POIKILOCYTES (BEAKER) (test gdoc=764) 2+ moderate OVALOCYTES (BEAKER) (test widg=666) 1+ few TEAR DROP CELLS (BEAKER) (test uzcd=174) 1+ few ARTIFACT (CELLAVISION)(BEAKER) (test wyub=1171) Present PLATELET CONCENTRATION (CELLAVISION)(BEAKER) (test hpyo=5300) Adequate Received comment: User comments: Slide comments: OCCULT BLOOD, [id number] 03:25:00* Test Item Value Reference Range Comments FECAL OCCULT BLOOD (BEAKER) (test zees=303) Positive Negative CBC W/PLT COUNT & AUTO [id number] 06:08:00* Test Item Value Reference Range Comments WHITE BLOOD CELL COUNT (BEAKER) (test hltx=199) 3.3 K/ L 3.5-10.5 RED BLOOD CELL COUNT (BEAKER) (test txuy=562) 3.20 M/ L 3.93-5.22 HEMOGLOBIN (BEAKER) (test kmak=516) 8.3 GM/DL 11.2-15.7 HEMATOCRIT (BEAKER) (test ctvl=700) 27.5 % 34.1-44.9 MEAN CORPUSCULAR VOLUME (BEAKER) (test mxif=789) 85.9 fL 79.4-94.8 MEAN CORPUSCULAR HEMOGLOBIN (BEAKER) (test ntvx=263) 25.9 pg 25.6-32.2 MEAN CORPUSCULAR HEMOGLOBIN CONC (BEAKER) (test pcga=371) 30.2 GM/DL 32.2-35.5 RED CELL DISTRIBUTION WIDTH (BEAKER) (test ulig=096) 18.3 % 11.7-14.4 PLATELET COUNT (BEAKER) (test vrwc=613) 380 K/CU MM 150-450 MEAN PLATELET VOLUME (BEAKER) (test dnca=514) 10.2 fL 9.4-12.3 NUCLEATED RED BLOOD CELLS (BEAKER) (test obsn=426) 0 /100 WBC 0-0 NEUTROPHILS RELATIVE PERCENT (BEAKER) (test zsmv=850) 40 % LYMPHOCYTES RELATIVE PERCENT (BEAKER) (test kvnr=694) 41 % MONOCYTES RELATIVE PERCENT (BEAKER) (test borz=157) 13 % EOSINOPHILS RELATIVE PERCENT (BEAKER) (test fcux=964) 5 % BASOPHILS RELATIVE PERCENT (BEAKER) (test dcol=260) 0 % NEUTROPHILS ABSOLUTE COUNT (BEAKER) (test cbwe=998) 1.33 K/ L 1.56-6.13 LYMPHOCYTES ABSOLUTE COUNT (BEAKER) (test skdv=320) 1.38 K/ L 1.18-3.74 MONOCYTES ABSOLUTE COUNT (BEAKER) (test coqb=852) 0.42 K/ L 0.24-0.36 EOSINOPHILS ABSOLUTE COUNT (BEAKER) (test lqgw=890) 0.18 K/ L 0.04-0.36 BASOPHILS ABSOLUTE COUNT (BEAKER) (test xxmk=008) 0.01 K/ L 0.01-0.08 IMMATURE GRANULOCYTES-RELATIVE PERCENT (BEAKER) (test cznd=3077) 0 % 0-1 BASIC METABOLIC [id number] 12:40:00* Test Item Value Reference Range Comments SODIUM (BEAKER) (test yzqi=684) 138 meq/L 136-145 POTASSIUM (BEAKER) (test mddj=256) 4.5 meq/L 3.5-5.1 CHLORIDE (BEAKER) (test zhog=873) 105 meq/L 98-107 CO2 (BEAKER) (test rxtu=230) 24 meq/L 22-29 BLOOD UREA NITROGEN (BEAKER) (test jfli=352) 11 mg/dL 7-21 CREATININE (BEAKER) (test ldqz=772) 0.66 mg/dL 0.57-1.25 GLUCOSE RANDOM (BEAKER) (test qhwd=417) 171 mg/dL 70-105 CALCIUM (BEAKER) (test ctod=338) 9.3 mg/dL 8.4-10.2 EGFR (BEAKER) (test fecs=1249) 100 mL/min/1.73 sq m ESTIMATED GFR IS NOT ACCURATE CREATININE CLEARANCE IN PREDICTING GLOMERULAR FILTRATION RATE. ESTIMATED GFR IS NOT APPLICABLE FOR DIALYSIS PATIENTS. HEMOGLOBIN AND [id number] 12:07:00* Test Item Value Reference Range Comments HEMOGLOBIN (BEAKER) (test zlso=534) 8.9 GM/DL 11.2-15.7 HEMATOCRIT (BEAKER) (test efrp=481) 29.0 % 34.1-44.9 CBC W/PLT COUNT & AUTO [id number] 07:10:00* Test Item Value Reference Range Comments WHITE BLOOD CELL COUNT (BEAKER) (test dwbt=061) 5.1 K/ L 3.5-10.5 RED BLOOD CELL COUNT (BEAKER) (test idix=944) 3.55 M/ L 3.93-5.22 HEMOGLOBIN (BEAKER) (test qgxy=697) 9.1 GM/DL 11.2-15.7 HEMATOCRIT (BEAKER) (test grwb=111) 29.9 % 34.1-44.9 MEAN CORPUSCULAR VOLUME (BEAKER) (test cikg=346) 84.2 fL 79.4-94.8 MEAN CORPUSCULAR HEMOGLOBIN (BEAKER) (test zfja=160) 25.6 pg 25.6-32.2 MEAN CORPUSCULAR HEMOGLOBIN CONC (BEAKER) (test xnmq=228) 30.4 GM/DL 32.2-35.5 RED CELL DISTRIBUTION WIDTH (BEAKER) (test uesu=225) 18.6 % 11.7-14.4 PLATELET COUNT (BEAKER) (test ljmb=848) 411 K/CU MM 150-450 MEAN PLATELET VOLUME (BEAKER) (test jzlr=785) 9.7 fL 9.4-12.3 NUCLEATED RED BLOOD CELLS (BEAKER) (test wvzb=637) 0 /100 WBC 0-0 NEUTROPHILS RELATIVE PERCENT (BEAKER) (test mjmv=427) 36 % LYMPHOCYTES RELATIVE PERCENT (BEAKER) (test pcvy=987) 46 % MONOCYTES RELATIVE PERCENT (BEAKER) (test gaks=284) 11 % EOSINOPHILS RELATIVE PERCENT (BEAKER) (test rziw=659) 7 % BASOPHILS RELATIVE PERCENT (BEAKER) (test eywz=515) 0 % NEUTROPHILS ABSOLUTE COUNT (BEAKER) (test ilfj=087) 1.82 K/ L 1.56-6.13 LYMPHOCYTES ABSOLUTE COUNT (BEAKER) (test gspg=131) 2.34 K/ L 1.18-3.74 MONOCYTES ABSOLUTE COUNT (BEAKER) (test iuok=392) 0.56 K/ L 0.24-0.36 EOSINOPHILS ABSOLUTE COUNT (BEAKER) (test exmz=901) 0.37 K/ L 0.04-0.36 BASOPHILS ABSOLUTE COUNT (BEAKER) (test xmes=247) 0.02 K/ L 0.01-0.08 IMMATURE GRANULOCYTES-RELATIVE PERCENT (BEAKER) (test uast=6985) 0 % 0-1 HEMOGLOBIN AND [id number] 21:52:00* Test Item Value Reference Range Comments HEMOGLOBIN (BEAKER) (test wkig=448) 9.6 GM/DL 11.2-15.7 HEMATOCRIT (BEAKER) (test garm=630) 31.2 % 34.1-44.9 HEMOGLOBIN AND [id number] 11:03:00* Test Item Value Reference Range Comments HEMOGLOBIN (BEAKER) (test onax=519) 9.5 GM/DL 11.2-15.7 HEMATOCRIT (BEAKER) (test jxbk=510) 31.2 % 34.1-44.9 BASIC METABOLIC [id number] 04:52:00* Test Item Value Reference Range Comments SODIUM (BEAKER) (test rsux=604) 136 meq/L 136-145 POTASSIUM (BEAKER) (test vagk=228) 4.1 meq/L 3.5-5.1 CHLORIDE (BEAKER) (test txxo=278) 107 meq/L 98-107 CO2 (BEAKER) (test efen=549) 24 meq/L 22-29 BLOOD UREA NITROGEN (BEAKER) (test uqjh=693) 10 mg/dL 7-21 CREATININE (BEAKER) (test osvv=704) 0.62 mg/dL 0.57-1.25 GLUCOSE RANDOM (BEAKER) (test vswx=271) 134 mg/dL 70-105 CALCIUM (BEAKER) (test ediy=278) 9.0 mg/dL 8.4-10.2 EGFR (BEAKER) (test tqjs=0276) 108 mL/min/1.73 sq m ESTIMATED GFR IS NOT ACCURATE CREATININE CLEARANCE IN PREDICTING GLOMERULAR FILTRATION RATE. ESTIMATED GFR IS NOT APPLICABLE FOR DIALYSIS PATIENTS. HEMOGLOBIN AND [id number] 04:24:00* Test Item Value Reference Range Comments HEMOGLOBIN (BEAKER) (test awwe=084) 9.1 GM/DL 11.2-15.7 HEMATOCRIT (BEAKER) (test slso=765) 29.9 % 34.1-44.9 CBC W/PLT COUNT & AUTO [id number] 04:24:00* Test Item Value Reference Range Comments WHITE BLOOD CELL COUNT (BEAKER) (test mnpp=289) 6.0 K/ L 3.5-10.5 RED BLOOD CELL COUNT (BEAKER) (test dcgl=918) 3.54 M/ L 3.93-5.22 HEMOGLOBIN (BEAKER) (test kxpk=015) 9.1 GM/DL 11.2-15.7 HEMATOCRIT (BEAKER) (test hxga=781) 29.9 % 34.1-44.9 MEAN CORPUSCULAR VOLUME (BEAKER) (test nzrd=784) 84.5 fL 79.4-94.8 MEAN CORPUSCULAR HEMOGLOBIN (BEAKER) (test czyl=101) 25.7 pg 25.6-32.2 MEAN CORPUSCULAR HEMOGLOBIN CONC (BEAKER) (test tnhg=986) 30.4 GM/DL 32.2-35.5 RED CELL DISTRIBUTION WIDTH (BEAKER) (test cjjl=565) 18.6 % 11.7-14.4 PLATELET COUNT (BEAKER) (test shks=407) 403 K/CU MM 150-450 MEAN PLATELET VOLUME (BEAKER) (test mdpt=321) 9.6 fL 9.4-12.3 NUCLEATED RED BLOOD CELLS (BEAKER) (test vyde=304) 0 /100 WBC 0-0 NEUTROPHILS RELATIVE PERCENT (BEAKER) (test ztzt=995) 48 % LYMPHOCYTES RELATIVE PERCENT (BEAKER) (test fgxs=400) 36 % MONOCYTES RELATIVE PERCENT (BEAKER) (test yjmx=063) 10 % EOSINOPHILS RELATIVE PERCENT (BEAKER) (test kzjw=993) 5 % BASOPHILS RELATIVE PERCENT (BEAKER) (test yfaz=459) 0 % NEUTROPHILS ABSOLUTE COUNT (BEAKER) (test fzsj=468) 2.91 K/ L 1.56-6.13 LYMPHOCYTES ABSOLUTE COUNT (BEAKER) (test clac=128) 2.18 K/ L 1.18-3.74 MONOCYTES ABSOLUTE COUNT (BEAKER) (test dtfz=559) 0.60 K/ L 0.24-0.36 EOSINOPHILS ABSOLUTE COUNT (BEAKER) (test hjdh=554) 0.29 K/ L 0.04-0.36 BASOPHILS ABSOLUTE COUNT (BEAKER) (test oamr=348) 0.01 K/ L 0.01-0.08 IMMATURE GRANULOCYTES-RELATIVE PERCENT (BEAKER) (test gwed=2414) 1 % 0-1 BASIC METABOLIC [id number] 07:34:00* Test Item Value Reference Range Comments SODIUM (BEAKER) (test yvac=450) 137 meq/L 136-145 POTASSIUM (BEAKER) (test bonh=182) 3.8 meq/L 3.5-5.1 CHLORIDE (BEAKER) (test grjy=478) 108 meq/L 98-107 CO2 (BEAKER) (test oquu=181) 22 meq/L 22-29 BLOOD UREA NITROGEN (BEAKER) (test swwi=265) 7 mg/dL 7-21 CREATININE (BEAKER) (test dqmm=438) 0.61 mg/dL 0.57-1.25 GLUCOSE RANDOM (BEAKER) (test eohk=503) 104 mg/dL 70-105 CALCIUM (BEAKER) (test asyf=844) 8.9 mg/dL 8.4-10.2 EGFR (BEAKER) (test blzt=3459) 110 mL/min/1.73 sq m ESTIMATED GFR IS NOT ACCURATE CREATININE CLEARANCE IN PREDICTING GLOMERULAR FILTRATION RATE. ESTIMATED GFR IS NOT APPLICABLE FOR DIALYSIS PATIENTS. CBC W/PLT COUNT & AUTO [id number] 06:25:00* Test Item Value Reference Range Comments WHITE BLOOD CELL COUNT (BEAKER) (test nmsd=863) 6.2 K/ L 3.5-10.5 RED BLOOD CELL COUNT (BEAKER) (test knmw=381) 3.79 M/ L 3.93-5.22 HEMOGLOBIN (BEAKER) (test dmqd=924) 9.9 GM/DL 11.2-15.7 HEMATOCRIT (BEAKER) (test lshu=202) 31.5 % 34.1-44.9 MEAN CORPUSCULAR VOLUME (BEAKER) (test miqd=392) 83.1 fL 79.4-94.8 MEAN CORPUSCULAR HEMOGLOBIN (BEAKER) (test dost=990) 26.1 pg 25.6-32.2 MEAN CORPUSCULAR HEMOGLOBIN CONC (BEAKER) (test jhiu=934) 31.4 GM/DL 32.2-35.5 RED CELL DISTRIBUTION WIDTH (BEAKER) (test qacg=771) 18.6 % 11.7-14.4 PLATELET COUNT (BEAKER) (test wyqh=708) 439 K/CU MM 150-450 MEAN PLATELET VOLUME (BEAKER) (test kbbs=859) 10.1 fL 9.4-12.3 NUCLEATED RED BLOOD CELLS (BEAKER) (test asht=562) 0 /100 WBC 0-0 NEUTROPHILS RELATIVE PERCENT (BEAKER) (test fajf=416) 58 % LYMPHOCYTES RELATIVE PERCENT (BEAKER) (test cidj=203) 28 % MONOCYTES RELATIVE PERCENT (BEAKER) (test eikg=669) 10 % EOSINOPHILS RELATIVE PERCENT (BEAKER) (test oqou=820) 5 % BASOPHILS RELATIVE PERCENT (BEAKER) (test snrx=689) 0 % NEUTROPHILS ABSOLUTE COUNT (BEAKER) (test mnbv=721) 3.57 K/ L 1.56-6.13 LYMPHOCYTES ABSOLUTE COUNT (BEAKER) (test dcil=597) 1.70 K/ L 1.18-3.74 MONOCYTES ABSOLUTE COUNT (BEAKER) (test rloe=134) 0.59 K/ L 0.24-0.36 EOSINOPHILS ABSOLUTE COUNT (BEAKER) (test pwnc=188) 0.28 K/ L 0.04-0.36 BASOPHILS ABSOLUTE COUNT (BEAKER) (test aecc=711) 0.01 K/ L 0.01-0.08 IMMATURE GRANULOCYTES-RELATIVE PERCENT (BEAKER) (test tvii=6412) 1 % 0-1 HEMOGLOBIN AND [id number] 20:42:00* Test Item Value Reference Range Comments HEMOGLOBIN (BEAKER) (test anxi=667) 10.2 GM/DL 11.2-15.7 HEMATOCRIT (BEAKER) (test klvr=006) 32.9 % 34.1-44.9 HEMOGLOBIN AND [id number] 12:10:00* Test Item Value Reference Range Comments HEMOGLOBIN (BEAKER) (test oopi=048) 8.8 GM/DL 11.2-15.7 HEMATOCRIT (BEAKER) (test llpl=921) 29.1 % 34.1-44.9 BLOOD [id number] 11:00:00* Test Item Value Reference Range Comments CULTURE (BEAKER) (test jzky=7750) No growth in 5 days BLOOD [id number] 00:00:00* Test Item Value Reference Range Comments CULTURE (BEAKER) (test xmjj=5480) No growth in 5 days HEMOGLOBIN AND [id number] 21:16:00* Test Item Value Reference Range Comments HEMOGLOBIN (BEAKER) (test sheb=844) 9.3 GM/DL 11.2-15.7 HEMATOCRIT (BEAKER) (test qjlz=281) 29.7 % 34.1-44.9 HEMOGLOBIN AND [id number] 12:30:00* Test Item Value Reference Range Comments HEMOGLOBIN (BEAKER) (test bgjo=246) 8.8 GM/DL 11.2-15.7 HEMATOCRIT (BEAKER) (test lygi=351) 28.8 % 34.1-44.9 HEMOGLOBIN AND [id number] 06:51:00* Test Item Value Reference Range Comments HEMOGLOBIN (BEAKER) (test eusq=869) 8.8 GM/DL 11.2-15.7 HEMATOCRIT (BEAKER) (test dyhh=548) 28.8 % 34.1-44.9 HEMOGLOBIN AND [id number] 19:30:00* Test Item Value Reference Range Comments HEMOGLOBIN (BEAKER) (test rwhf=617) 8.6 GM/DL 11.2-15.7 HEMATOCRIT (BEAKER) (test brti=027) 27.8 % 34.1-44.9 HEMOGLOBIN AND [id number] 00:26:00* Test Item Value Reference Range Comments HEMOGLOBIN (BEAKER) (test hnfs=565) 7.9 GM/DL 11.2-15.7 HEMATOCRIT (BEAKER) (test yxjx=017) 25.3 % 34.1-44.9 VANCOMYCIN LEVEL, [id number] 12:57:00* Test Item Value Reference Range Comments VANCOMYCIN TROUGH (BEAKER) (test nojd=605) 9.9 ug/mL 10.0-20.0 HEMOGLOBIN AND [id number] 12:40:00* Test Item Value Reference Range Comments HEMOGLOBIN (BEAKER) (test ylgf=598) 8.0 GM/DL 11.2-15.7 HEMATOCRIT (BEAKER) (test nwos=473) 26.1 % 34.1-44.9 HEMOGLOBIN AND [id number] 22:53:00* Test Item Value Reference Range Comments HEMOGLOBIN (BEAKER) (test ejpa=533) 7.4 GM/DL 11.2-15.7 HEMATOCRIT (BEAKER) (test iloj=042) 24.0 % 34.1-44.9 HEMOGLOBIN AND [id number] 12:29:00* Test Item Value Reference Range Comments HEMOGLOBIN (BEAKER) (test njri=109) 7.7 GM/DL 11.2-15.7 HEMATOCRIT (BEAKER) (test egde=376) 24.7 % 34.1-44.9 CBC W/PLT COUNT & AUTO [id number] 11:11:00* Test Item Value Reference Range Comments WHITE BLOOD CELL COUNT (BEAKER) (test rjft=381) 6.4 K/ L 3.5-10.5 RED BLOOD CELL COUNT (BEAKER) (test eeri=622) 2.95 M/ L 3.93-5.22 HEMOGLOBIN (BEAKER) (test llbj=082) 7.7 GM/DL 11.2-15.7 HEMATOCRIT (BEAKER) (test sffy=362) 24.5 % 34.1-44.9 MEAN CORPUSCULAR VOLUME (BEAKER) (test ooxp=042) 83.1 fL 79.4-94.8 MEAN CORPUSCULAR HEMOGLOBIN (BEAKER) (test rtce=544) 26.1 pg 25.6-32.2 MEAN CORPUSCULAR HEMOGLOBIN CONC (BEAKER) (test grts=748) 31.4 GM/DL 32.2-35.5 RED CELL DISTRIBUTION WIDTH (BEAKER) (test ytjw=557) 17.9 % 11.7-14.4 PLATELET COUNT (BEAKER) (test mevx=965) 231 K/CU MM 150-450 MEAN PLATELET VOLUME (BEAKER) (test uxpu=730) 10.6 fL 9.4-12.3 NUCLEATED RED BLOOD CELLS (BEAKER) (test neie=239) 0 /100 WBC 0-0 (CELLAVISION MANUAL DIFF)2018-03-18 11:11:00* Test Item Value Reference Range Comments NEUTROPHILS - REL (CELLAVISION)(BEAKER) (test dklk=6634) 54 % LYMPHOCYTES - REL (CELLAVISION)(BEAKER) (test jmdp=6736) 22 % MONOCYTES - REL (CELLAVISION)(BEAKER) (test avrq=3482) 13 % EOSINOPHILS - REL (CELLAVISION)(BEAKER) (test eqxz=2133) 5 % BASOPHILS - REL (CELLAVISION)(BEAKER) (test qyli=5004) 2 % BANDS - REL (CELLAVISION)(BEAKER) (test guhz=1302) 3 % 0-10 ATYPICAL LYMPHOCYTES - REL (CELLAVISION)(BEAKER) (test wltv=6942) 1 % 0-0 NEUTROPHILS - ABS (CELLAVISION)(BEAKER) (test tmcl=1025) 3.46 K/ul 1.56-6.13 LYMPHOCYTES - ABS (CELLAVISION)(BEAKER) (test fxep=4627) 1.41 K/ul 1.18-3.74 MONOCYTES - ABS (CELLAVISION)(BEAKER) (test iyhz=5377) 0.83 K/uL 0.24-0.36 EOSINOPHILS - ABS (CELLAVISION)(BEAKER) (test ldro=0016) 0.32 K/uL 0.04-0.36 BASOPHILS - ABS (CELLAVISION)(BEAKER) (test jmtm=4603) 0.13 K/uL 0.01-0.08 BANDS - ABS (CELLAVISION)(BEAKER) (test wsff=5802) 0.19 K/uL 0.00-0.80 ATYPICAL LYMPHOCYTES - ABS (CELLAVISION)(BEAKER) (test pmba=6070) 0.06 K/uL 0.00-0.00 TOTAL COUNTED (BEAKER) (test uapa=2338) 100 WBC MORPHOLOGY (BEAKER) (test klet=570) Normal PLT MORPHOLOGY (BEAKER) (test teub=920) Normal ANISOCYTOSIS (BEAKER) (test mkpk=490) 2+ moderate MICROCYTES (BEAKER) (test hqfb=695) 2+ moderate POIKILOCYTES (BEAKER) (test wrfh=410) 2+ moderate OVALOCYTES (BEAKER) (test gqfd=732) 1+ few TEAR DROP CELLS (BEAKER) (test ciyr=766) 1+ few ARTIFACT (CELLAVISION)(BEAKER) (test qnvp=6109) Present PLATELET CONCENTRATION (CELLAVISION)(BEAKER) (test yfrg=2598) Adequate Received comment: User comments: Slide comments: HEPATIC FUNCTION PANEL 2018-03-18 06:10:00* Test Item Value Reference Range Comments TOTAL PROTEIN (BEAKER) (test zkyk=259) 6.3 gm/dL 6.0-8.3 ALBUMIN (BEAKER) (test zkqp=0174) 3.5 g/dL 3.5-5.0 BILIRUBIN TOTAL (BEAKER) (test nfks=918) 0.3 mg/dL 0.2-1.2 BILIRUBIN DIRECT (BEAKER) (test ilcx=917) 0.2 mg/dL 0.1-0.5 ALKALINE PHOSPHATASE (BEAKER) (test zzhm=072) 119 U/L 40-150 AST (SGOT) (BEAKER) (test ovij=453) 43 U/L 5-34 ALT (SGPT) (BEAKER) (test mgpr=659) 21 U/L 6-55 BASIC METABOLIC [id number] 06:10:00* Test Item Value Reference Range Comments SODIUM (BEAKER) (test arrm=402) 138 meq/L 136-145 POTASSIUM (BEAKER) (test fopg=680) 3.3 meq/L 3.5-5.1 CHLORIDE (BEAKER) (test desk=441) 108 meq/L 98-107 CO2 (BEAKER) (test yusb=294) 22 meq/L 22-29 BLOOD UREA NITROGEN (BEAKER) (test rkny=838) 5 mg/dL 7-21 CREATININE (BEAKER) (test biym=270) 0.74 mg/dL 0.57-1.25 GLUCOSE RANDOM (BEAKER) (test ymaf=049) 139 mg/dL 70-105 CALCIUM (BEAKER) (test rekp=748) 8.7 mg/dL 8.4-10.2 EGFR (BEAKER) (test hcvl=8184) 88 mL/min/1.73 sq m ESTIMATED GFR IS NOT ACCURATE CREATININE CLEARANCE IN PREDICTING GLOMERULAR FILTRATION RATE. ESTIMATED GFR IS NOT APPLICABLE FOR DIALYSIS PATIENTS. HEMOGLOBIN AND [id number] 21:58:00* Test Item Value Reference Range Comments HEMOGLOBIN (BEAKER) (test osxa=770) 8.0 GM/DL 11.2-15.7 HEMATOCRIT (BEAKER) (test cnyk=016) 24.9 % 34.1-44.9 HEMOGLOBIN AND [id number] 17:39:00* Test Item Value Reference Range Comments HEMOGLOBIN (BEAKER) (test vtkn=067) 7.6 GM/DL 11.2-15.7 HEMATOCRIT (BEAKER) (test ezby=732) 24.7 % 34.1-44.9 HEMOGLOBIN AND [id number] 02:54:00* Test Item Value Reference Range Comments HEMOGLOBIN (BEAKER) (test ejxi=598) 8.1 GM/DL 11.2-15.7 HEMATOCRIT (BEAKER) (test nzyb=987) 25.5 % 34.1-44.9 BLOOD [id number] 18:00:00* Test Item Value Reference Range Comments CULTURE (BEAKER) (test mndc=2734) No growth in 5 days BLOOD [id number] 18:00:00* Test Item Value Reference Range Comments CULTURE (BEAKER) (test mdkw=4139) No growth in 5 days STOOL CULTURE + SHIGA [id number] 17:42:00* Test Item Value Reference Range Comments CULTURE (BEAKER) (test dndn=0718) No Salmonella, Shigella or Campylobacter isolated C. DIFFICILE GDH [id number] 17:23:00* Test Item Value Reference Range Comments CDT TOXIN (test tsjs=[id number]) Negative Negative CDT GDH ANTIGEN (test tejw=[id number]) Positive Negative C. difficile present but toxin not detected. Indicates colonization with non-toxigenic strain or level of toxin below detectable levels. No need for enteric isolation. Treatment is rarely needed (only when strong clinical suspicion for Clostridium difficile infection) Testing performed by [employer] Rapid Cassette Assay. For GDH, published sensitivity of the assay is 98.7% compared to cytotoxicity testing. For Toxin AB, publishe d sensitivity is 87.8% and specificity 99.4% compared to cytotoxicity testing.Ve rification of kit performance was done by the [facility] Microbiology Lab prior to cl inical use.VANCOMYCIN LEVEL, [id number] 12:40:00* Test Item Value Reference Range Comments VANCOMYCIN TROUGH (BEAKER) (test brdr=360) 9.0 ug/mL 10.0-20.0 HEMOGLOBIN AND [id number] 12:23:00* Test Item Value Reference Range Comments HEMOGLOBIN (BEAKER) (test mqkn=383) 6.9 GM/DL 11.2-15.7 HEMATOCRIT (BEAKER) (test pqks=936) 22.2 % 34.1-44.9 CBC W/PLT COUNT & AUTO [id number] 07:43:00* Test Item Value Reference Range Comments WHITE BLOOD CELL COUNT (BEAKER) (test qjtw=131) 10.4 K/ L 3.5-10.5 RED BLOOD CELL COUNT (BEAKER) (test nplj=327) 2.89 M/ L 3.93-5.22 HEMOGLOBIN (BEAKER) (test uiod=578) 7.4 GM/DL 11.2-15.7 HEMATOCRIT (BEAKER) (test edrw=137) 23.9 % 34.1-44.9 MEAN CORPUSCULAR VOLUME (BEAKER) (test audx=143) 82.7 fL 79.4-94.8 MEAN CORPUSCULAR HEMOGLOBIN (BEAKER) (test hwtq=072) 25.6 pg 25.6-32.2 MEAN CORPUSCULAR HEMOGLOBIN CONC (BEAKER) (test yxzy=536) 31.0 GM/DL 32.2-35.5 RED CELL DISTRIBUTION WIDTH (BEAKER) (test vxtt=441) 18.4 % 11.7-14.4 PLATELET COUNT (BEAKER) (test zjff=657) 251 K/CU MM 150-450 MEAN PLATELET VOLUME (BEAKER) (test thlb=216) 10.9 fL 9.4-12.3 NUCLEATED RED BLOOD CELLS (BEAKER) (test axwn=311) 0 /100 WBC 0-0 (CELLAVISION MANUAL DIFF)2018-03-16 07:43:00* Test Item Value Reference Range Comments NEUTROPHILS - REL (CELLAVISION)(BEAKER) (test lngp=1523) 56 % LYMPHOCYTES - REL (CELLAVISION)(BEAKER) (test nmaf=4376) 25 % MONOCYTES - REL (CELLAVISION)(BEAKER) (test nois=6374) 7 % BASOPHILS - REL (CELLAVISION)(BEAKER) (test ipkv=3023) 1 % BANDS - REL (CELLAVISION)(BEAKER) (test dabe=0816) 11 % 0-10 NEUTROPHILS - ABS (CELLAVISION)(BEAKER) (test inog=2389) 5.82 K/ul 1.56-6.13 LYMPHOCYTES - ABS (CELLAVISION)(BEAKER) (test hpfm=8528) 2.60 K/ul 1.18-3.74 MONOCYTES - ABS (CELLAVISION)(BEAKER) (test cxsi=1999) 0.73 K/uL 0.24-0.36 BASOPHILS - ABS (CELLAVISION)(BEAKER) (test lbxn=1580) 0.10 K/uL 0.01-0.08 BANDS - ABS (CELLAVISION)(BEAKER) (test omje=8870) 1.14 K/uL 0.00-0.80 TOTAL COUNTED (BEAKER) (test scpz=3594) 100 WBC MORPHOLOGY (BEAKER) (test ipar=169) Normal PLT MORPHOLOGY (BEAKER) (test svmz=742) Normal POLYCHROMATOPHILLIC RBCS(BEAKER) (test lrcu=796) 2+ moderate ANISOCYTOSIS (BEAKER) (test ramv=760) 2+ moderate POIKILOCYTES (BEAKER) (test gjgy=243) 2+ moderate OVALOCYTES (BEAKER) (test ivvl=226) 1+ few TEAR DROP CELLS (BEAKER) (test hkqt=836) 1+ few [place]ACKSON CELLS (BEAKER) (test gypj=933) 2+ moderate ARTIFACT (CELLAVISION)(BEAKER) (test ztcp=3543) Present PLATELET CONCENTRATION (CELLAVISION)(BEAKER) (test bkav=9732) Adequate Received comment: User comments: Slide comments: BASIC METABOLIC [id number] 07:01:00* Test Item Value Reference Range Comments SODIUM (BEAKER) (test nhct=734) 140 meq/L 136-145 POTASSIUM (BEAKER) (test mxgt=772) 3.5 meq/L 3.5-5.1 CHLORIDE (BEAKER) (test gbuv=253) 109 meq/L 98-107 CO2 (BEAKER) (test whft=565) 23 meq/L 22-29 BLOOD UREA NITROGEN (BEAKER) (test pzdt=520) 8 mg/dL 7-21 CREATININE (BEAKER) (test zcac=739) 0.77 mg/dL 0.57-1.25 GLUCOSE RANDOM (BEAKER) (test iozo=384) 110 mg/dL 70-105 CALCIUM (BEAKER) (test hasa=500) 9.1 mg/dL 8.4-10.2 EGFR (BEAKER) (test syrh=6450) 84 mL/min/1.73 sq m ESTIMATED GFR IS NOT ACCURATE CREATININE CLEARANCE IN PREDICTING GLOMERULAR FILTRATION RATE. ESTIMATED GFR IS NOT APPLICABLE FOR DIALYSIS PATIENTS. HEMOGLOBIN AND [id number] 22:58:00* Test Item Value Reference Range Comments HEMOGLOBIN (BEAKER) (test oknm=820) 7.3 GM/DL 11.2-15.7 HEMATOCRIT (BEAKER) (test ztvj=710) 23.8 % 34.1-44.9 SHIGA TOXIN [id number] 17:24:00* Test Item Value Reference Range Comments SHIGA TOXIN 1 (BEAKER) (test visq=9133) Not detected Not detected SHIGA TOXIN 2 (BEAKER) (test hzfp=8326) Not detected Not detected STOOL PATH [id number] 12:09:00* Test Item Value Reference Range Comments PATHOGEN EXAM CHARGED (BEAKER) (test ttet=1112) Done HEMOGLOBIN AND [id number] 10:48:00* Test Item Value Reference Range Comments HEMOGLOBIN (BEAKER) (test kjvw=874) 7.6 GM/DL 11.2-15.7 HEMATOCRIT (BEAKER) (test oxor=739) 24.7 % 34.1-44.9 CBC W/PLT COUNT & AUTO [id number] 10:02:00* Test Item Value Reference Range Comments WHITE BLOOD CELL COUNT (BEAKER) (test piqy=258) 11.5 K/ L 3.5-10.5 RED BLOOD CELL COUNT (BEAKER) (test msls=340) 2.91 M/ L 3.93-5.22 HEMOGLOBIN (BEAKER) (test stbv=800) 7.3 GM/DL 11.2-15.7 HEMATOCRIT (BEAKER) (test caao=992) 23.7 % 34.1-44.9 MEAN CORPUSCULAR VOLUME (BEAKER) (test dipu=597) 81.4 fL 79.4-94.8 MEAN CORPUSCULAR HEMOGLOBIN (BEAKER) (test jivi=694) 25.1 pg 25.6-32.2 MEAN CORPUSCULAR HEMOGLOBIN CONC (BEAKER) (test ikhc=207) 30.8 GM/DL 32.2-35.5 RED CELL DISTRIBUTION WIDTH (BEAKER) (test cddh=820) 18.1 % 11.7-14.4 PLATELET COUNT (BEAKER) (test wtsc=488) 206 K/CU MM 150-450 MEAN PLATELET VOLUME (BEAKER) (test iusp=745) 10.1 fL 9.4-12.3 NUCLEATED RED BLOOD CELLS (BEAKER) (test xush=406) 0 /100 WBC 0-0 (CELLAVISION MANUAL DIFF)2018-03-15 10:02:00* Test Item Value Reference Range Comments NEUTROPHILS - REL (CELLAVISION)(BEAKER) (test wmbw=2186) 66 % LYMPHOCYTES - REL (CELLAVISION)(BEAKER) (test orbg=2746) 13 % MONOCYTES - REL (CELLAVISION)(BEAKER) (test bnth=5091) 5 % EOSINOPHILS - REL (CELLAVISION)(BEAKER) (test dslm=7521) 1 % BANDS - REL (CELLAVISION)(BEAKER) (test reod=5705) 15 % 0-10 NEUTROPHILS - ABS (CELLAVISION)(BEAKER) (test irhd=4395) 7.59 K/ul 1.56-6.13 LYMPHOCYTES - ABS (CELLAVISION)(BEAKER) (test fyze=1467) 1.50 K/ul 1.18-3.74 MONOCYTES - ABS (CELLAVISION)(BEAKER) (test yytw=2017) 0.58 K/uL 0.24-0.36 EOSINOPHILS - ABS (CELLAVISION)(BEAKER) (test cngq=3746) 0.12 K/uL 0.04-0.36 BANDS - ABS (CELLAVISION)(BEAKER) (test jeee=1515) 1.73 K/uL 0.00-0.80 TOTAL COUNTED (BEAKER) (test holf=4542) 100 WBC MORPHOLOGY (BEAKER) (test rntm=460) Normal PLT MORPHOLOGY (BEAKER) (test usph=826) Normal ANISOCYTOSIS (BEAKER) (test cgsz=154) 2+ moderate POIKILOCYTES (BEAKER) (test dmbj=585) 2+ moderate OVALOCYTES (BEAKER) (test heua=552) 2+ moderate TEAR DROP CELLS (BEAKER) (test sgjo=444) 1+ few JACKSON CELLS (BEAKER) (test odae=237) 2+ moderate ARTIFACT (CELLAVISION)(BEAKER) (test jarr=8413) Present PLATELET CONCENTRATION (CELLAVISION)(BEAKER) (test dkmg=1698) Adequate Received comment: User comments: Slide comments: BASIC METABOLIC [id number] 05:02:00* Test Item Value Reference Range Comments SODIUM (BEAKER) (test ajli=955) 137 meq/L 136-145 POTASSIUM (BEAKER) (test syjw=062) 3.8 meq/L 3.5-5.1 CHLORIDE (BEAKER) (test iswg=275) 108 meq/L 98-107 CO2 (BEAKER) (test jvpu=690) 22 meq/L 22-29 BLOOD UREA NITROGEN (BEAKER) (test cpkz=500) 11 mg/dL 7-21 CREATININE (BEAKER) (test xsqv=092) 0.81 mg/dL 0.57-1.25 GLUCOSE RANDOM (BEAKER) (test ogsp=890) 102 mg/dL 70-105 CALCIUM (BEAKER) (test rpxd=982) 9.2 mg/dL 8.4-10.2 EGFR (BEAKER) (test ksag=3662) 79 mL/min/1.73 sq m ESTIMATED GFR IS NOT ACCURATE CREATININE CLEARANCE IN PREDICTING GLOMERULAR FILTRATION RATE. ESTIMATED GFR IS NOT APPLICABLE FOR DIALYSIS PATIENTS. HEMOGLOBIN AND [id number] 22:23:00* Test Item Value Reference Range Comments HEMOGLOBIN (BEAKER) (test obrz=835) 7.5 GM/DL 11.2-15.7 HEMATOCRIT (BEAKER) (test kcpe=216) 24.4 % 34.1-44.9 LACTIC ACID, VENOUS, WHOLE [id number] 17:50:00* Test Item Value Reference Range Comments LACTATE BLOOD VENOUS (2) (BEAKER) (test uihc=1892) 1.2 mmol/L 0.5-2.2 Specimen moderately hemolyzed Effective 11/11/2015: Units/Reference Range ChangeNew: 0.5-2.2 mmol/L Previous: 5 -20 mg/dLCBC W/PLT COUNT & AUTO [id number] 14:19:00* Test Item Value Reference Range Comments WHITE BLOOD CELL COUNT (BEAKER) (test qdpy=407) 11.2 K/ L 3.5-10.5 RED BLOOD CELL COUNT (BEAKER) (test momg=495) 2.88 M/ L 3.93-5.22 HEMOGLOBIN (BEAKER) (test dcvu=435) 7.3 GM/DL 11.2-15.7 HEMATOCRIT (BEAKER) (test hevh=935) 23.6 % 34.1-44.9 MEAN CORPUSCULAR VOLUME (BEAKER) (test mnbs=960) 81.9 fL 79.4-94.8 MEAN CORPUSCULAR HEMOGLOBIN (BEAKER) (test ckir=156) 25.3 pg 25.6-32.2 MEAN CORPUSCULAR HEMOGLOBIN CONC (BEAKER) (test kshq=683) 30.9 GM/DL 32.2-35.5 RED CELL DISTRIBUTION WIDTH (BEAKER) (test gtic=654) 18.1 % 11.7-14.4 PLATELET COUNT (BEAKER) (test cvfb=746) 210 K/CU MM 150-450 MEAN PLATELET VOLUME (BEAKER) (test xipb=181) 10.8 fL 9.4-12.3 NUCLEATED RED BLOOD CELLS (BEAKER) (test ludd=167) 0 /100 WBC 0-0 (CELLAVISION MANUAL DIFF)2018-03-14 14:19:00* Test Item Value Reference Range Comments NEUTROPHILS - REL (CELLAVISION)(BEAKER) (test bryz=1958) 62 % LYMPHOCYTES - REL (CELLAVISION)(BEAKER) (test ndwb=3958) 17 % MONOCYTES - REL (CELLAVISION)(BEAKER) (test cmzp=0944) 3 % EOSINOPHILS - REL (CELLAVISION)(BEAKER) (test ohfu=7459) 3 % BANDS - REL (CELLAVISION)(BEAKER) (test veoq=2207) 15 % 0-10 NEUTROPHILS - ABS (CELLAVISION)(BEAKER) (test kdwl=8293) 6.94 K/ul 1.56-6.13 LYMPHOCYTES - ABS (CELLAVISION)(BEAKER) (test vicf=9825) 1.90 K/ul 1.18-3.74 MONOCYTES - ABS (CELLAVISION)(BEAKER) (test kuyb=7352) 0.34 K/uL 0.24-0.36 EOSINOPHILS - ABS (CELLAVISION)(BEAKER) (test vcki=3974) 0.34 K/uL 0.04-0.36 BANDS - ABS (CELLAVISION)(BEAKER) (test tnpq=3462) 1.68 K/uL 0.00-0.80 TOTAL COUNTED (BEAKER) (test xwiw=2952) 100 WBC MORPHOLOGY (BEAKER) (test jpwx=083) Normal PLT MORPHOLOGY (BEAKER) (test gvaj=281) Normal POLYCHROMATOPHILLIC RBCS(BEAKER) (test mdxb=409) 2+ moderate ANISOCYTOSIS (BEAKER) (test dunv=662) 2+ moderate POIKILOCYTES (BEAKER) (test ltqk=119) 2+ moderate ARTIFACT (CELLAVISION)(BEAKER) (test zuhy=9372) Present PLATELET CONCENTRATION (CELLAVISION)(BEAKER) (test qejz=4625) Adequate Received comment: User comments: Slide comments: BASIC METABOLIC [id number] 13:55:00* Test Item Value Reference Range Comments SODIUM (BEAKER) (test nixi=113) 131 meq/L 136-145 POTASSIUM (BEAKER) (test bwyh=295) 3.7 meq/L 3.5-5.1 CHLORIDE (BEAKER) (test haah=315) 105 meq/L 98-107 CO2 (BEAKER) (test hyij=726) 20 meq/L 22-29 BLOOD UREA NITROGEN (BEAKER) (test rcap=568) 8 mg/dL 7-21 CREATININE (BEAKER) (test ewex=837) 0.80 mg/dL 0.57-1.25 GLUCOSE RANDOM (BEAKER) (test tacm=123) 97 mg/dL 70-105 CALCIUM (BEAKER) (test fxzl=872) 8.6 mg/dL 8.4-10.2 EGFR (BEAKER) (test zsbk=4559) 80 mL/min/1.73 sq m ESTIMATED GFR IS NOT ACCURATE CREATININE CLEARANCE IN PREDICTING GLOMERULAR FILTRATION RATE. ESTIMATED GFR IS NOT APPLICABLE FOR DIALYSIS PATIENTS. GI PATHOGEN PROFILE BY [id number] 09:22:00* Test Item Value Reference Range Comments CAMPYLOBACTER (PCR) (test ouao=9894322) Not detected Not detected PLESIOMONAS SHIGELLOIDES (PCR) (test czqb=9031702) Not detected Not detected SALMONELLA (PCR) (test jsqq=1343652) Not detected Not detected YERSINIA ENTEROCOLITICA (PCR) (test bvfy=2049926) Not detected Not detected VIBRIO CHOLERAE (PCR) (test gacs=0891724) Not detected Not detected ENTEROAGGREGATIVE E. COLI (EAEC) BY PCR (test bvpm=1506183) Not detected Not detected ENTEROPATHOGENIC E. COLI (EPEC) BY PCR (test djts=1463308) Not detected Not detected ENTEROTOXIGENIC E. COLI (ETEC) LT/ST BY PCR (test pkur=7484882) Not detected Not detected SHIGA-LIKE TOXIN-PRODUCING E. COLI (STEC) STX1/STX2 (test vylr=9376153) Not detected Not detected E. COLI O157 (PCR) (test lxzx=4205350) Not detected SHIGELLA/ENTEROINVASIVE E. COLI (EIEC) BY PCR (test yigz=8017075) Not detected Not detected CRYPTOSPORIDIUM (PCR) (test xlgl=4160428) Not detected Not detected CYCLOSPORA CAYETANENSIS (PCR) (test izgt=0551444) Not detected Not detected ENTAMOEBA HISTOLYTICA (PCR) (test rytc=5221370) Not detected Not detected GIARDIA LAMBLIA (PCR) (test ajxs=7322546) Not detected Not detected ADENOVIRUS F 40/41 (PCR) (test enrm=4614236) Not detected Not detected ASTROVIRUS (PCR) (test iyvm=3528421) Not detected Not detected NOROVIRUS GI/GII (PCR) (test fgxe=9187962) Not detected Not detected ROTAVIRUS A (PCR) (test vwzx=8941075) Not detected Not detected SAPOVIRUS (I, II, IV, V) BY PCR (test qdug=4621307) Not detected Not detected VIBRIO (PARAHAEMOLYTICUS, VULNIFICUS) (test xqzk=2249156) Not detected Not detected Other viruses, parasites and bacteria not targeted by this PCR panel cannot be e xcluded; therefore clinical correlation and follow up of serology, culture resul ts, and other molecular studies is required. The results are not intended to be used as the sole means for clinical diagnosis or patient management decisions. T his sample was tested at the [facility] using the [employer] Gastrointestinal Panel. It is FDA cleared and has been verified and approved by the [facility] for clinical use. [facility] is CLIA-certified and [employer] ([employer])-accred ited to perform high complexity testing.URINALYSIS W/ REFLEX URINE CULTURE 2018-03-14 07:54:00* Test Item Value Reference Range Comments COLOR (BEAKER) (test vjpe=202) Yellow CLARITY (BEAKER) (test mqyn=356) Clear SPECIFIC GRAVITY UA (BEAKER) (test bhkg=363) 1.011 1.001-1.035 PH UA (BEAKER) (test uwzu=982) 6.5 5.0-8.0 PROTEIN UA (BEAKER) (test jjwf=451) 10 mg/dL Negative GLUCOSE UA (BEAKER) (test ejww=233) Negative Negative KETONES UA (BEAKER) (test kiil=404) Negative Negative BILIRUBIN UA (BEAKER) (test pvcr=829) Negative Negative BLOOD UA (BEAKER) (test agil=953) Large Negative NITRITE UA (BEAKER) (test tzra=740) Negative Negative LEUKOCYTE ESTERASE UA (BEAKER) (test hwtx=015) Trace Negative UROBILINOGEN UA (BEAKER) (test jhqf=323) 0.2 mg/dL 0.2-1.0 RBC UA (BEAKER) (test bhts=839) > /HPF WBC UA (BEAKER) (test rqrx=608) 12 /HPF MUCUS (BEAKER) (test czis=6346) Rare SQUAMOUS EPITHELIAL (BEAKER) (test njuo=298) 2 /HPF SOURCE(BEAKER) (test eplb=1879) [id number] 05:56:00* Test Item Value Reference Range Comments LIPASE (BEAKER) (test mfei=192) < U/L 8-78 CBC W/PLT COUNT & AUTO [id number] 14:26:00* Test Item Value Reference Range Comments WHITE BLOOD CELL COUNT (BEAKER) (test ezfn=167) 15.9 K/ L 3.5-10.5 RED BLOOD CELL COUNT (BEAKER) (test raer=899) 2.88 M/ L 3.93-5.22 HEMOGLOBIN (BEAKER) (test iewe=764) 7.4 GM/DL 11.2-15.7 HEMATOCRIT (BEAKER) (test imav=939) 23.7 % 34.1-44.9 MEAN CORPUSCULAR VOLUME (BEAKER) (test gcfu=405) 82.3 fL 79.4-94.8 MEAN CORPUSCULAR HEMOGLOBIN (BEAKER) (test beec=028) 25.7 pg 25.6-32.2 MEAN CORPUSCULAR HEMOGLOBIN CONC (BEAKER) (test tgoi=877) 31.2 GM/DL 32.2-35.5 RED CELL DISTRIBUTION WIDTH (BEAKER) (test rhjt=770) 17.9 % 11.7-14.4 PLATELET COUNT (BEAKER) (test truo=609) 173 K/CU MM 150-450 MEAN PLATELET VOLUME (BEAKER) (test fvew=245) 9.2 fL 9.4-12.3 NUCLEATED RED BLOOD CELLS (BEAKER) (test zlen=931) 0 /100 WBC 0-0 (CELLAVISION MANUAL DIFF)2018-03-13 14:26:00* Test Item Value Reference Range Comments NEUTROPHILS - REL (CELLAVISION)(BEAKER) (test tfdm=3626) 90 % LYMPHOCYTES - REL (CELLAVISION)(BEAKER) (test nwef=9992) 6 % EOSINOPHILS - REL (CELLAVISION)(BEAKER) (test evkk=2711) 2 % BANDS - REL (CELLAVISION)(BEAKER) (test zmrd=9219) 2 % 0-10 NEUTROPHILS - ABS (CELLAVISION)(BEAKER) (test xtau=7900) 14.31 K/ul 1.56-6.13 LYMPHOCYTES - ABS (CELLAVISION)(BEAKER) (test apcm=1801) 0.95 K/ul 1.18-3.74 EOSINOPHILS - ABS (CELLAVISION)(BEAKER) (test gkbf=1487) 0.32 K/uL 0.04-0.36 BANDS - ABS (CELLAVISION)(BEAKER) (test bnym=8499) 0.32 K/uL 0.00-0.80 TOTAL COUNTED (BEAKER) (test jake=6119) 100 WBC MORPHOLOGY (BEAKER) (test yknc=722) Normal PLT MORPHOLOGY (BEAKER) (test usww=676) Normal ANISOCYTOSIS (BEAKER) (test lwvu=422) 2+ moderate MICROCYTES (BEAKER) (test qlxu=448) 2+ moderate POIKILOCYTES (BEAKER) (test xish=172) 3+ many OVALOCYTES (BEAKER) (test jycf=992) 1+ few TEAR DROP CELLS (BEAKER) (test tgyv=042) 1+ few ARTIFACT (CELLAVISION)(BEAKER) (test cote=5401) Present PLATELET CONCENTRATION (CELLAVISION)(BEAKER) (test bshb=5901) Adequate Received comment: User comments: Slide comments: COMPREHENSIVE METABOLIC PANEL 2018-03-13 14:02:00* Test Item Value Reference Range Comments TOTAL PROTEIN (BEAKER) (test ipjo=427) 6.7 gm/dL 6.0-8.3 ALBUMIN (BEAKER) (test qrzh=7053) 3.9 g/dL 3.5-5.0 ALKALINE PHOSPHATASE (BEAKER) (test arqw=685) 140 U/L 40-150 BILIRUBIN TOTAL (BEAKER) (test acjx=603) 0.2 mg/dL 0.2-1.2 SODIUM (BEAKER) (test oemp=977) 135 meq/L 136-145 POTASSIUM (BEAKER) (test xtxf=442) 3.7 meq/L 3.5-5.1 CHLORIDE (BEAKER) (test pfzt=118) 107 meq/L 98-107 CO2 (BEAKER) (test mplj=824) 22 meq/L 22-29 BLOOD UREA NITROGEN (BEAKER) (test xnlj=468) 8 mg/dL 7-21 CREATININE (BEAKER) (test ligp=135) 0.77 mg/dL 0.57-1.25 GLUCOSE RANDOM (BEAKER) (test gphs=234) 144 mg/dL 70-105 CALCIUM (BEAKER) (test ubnt=698) 8.9 mg/dL 8.4-10.2 AST (SGOT) (BEAKER) (test xsjb=308) 38 U/L 5-34 ALT (SGPT) (BEAKER) (test whed=569) 34 U/L 6-55 EGFR (BEAKER) (test junt=1831) 84 mL/min/1.73 sq m ESTIMATED GFR IS NOT ACCURATE CREATININE CLEARANCE IN PREDICTING GLOMERULAR FILTRATION RATE. ESTIMATED GFR IS NOT APPLICABLE FOR DIALYSIS PATIENTS. PROTHROMBIN [id number] 13:42:00* Test Item Value Reference Range Comments PROTIME (BEAKER) (test nqil=515) 15.8 seconds 11.7-14.7 INR (BEAKER) (test nwox=440) 1.3 <=5.9 RECOMMENDED COUMADIN/WARFARIN INR THERAPY RANGESSTANDARD DOSE: 2.0 - 3.0 Inclu yossi: PROPHYLAXIS for venous thrombosis, systemic embolization; TREATMENT for cornell ous thrombosis and/or pulmonary embolus.HIGH RISK: Target INR is 2.5-3.5 for pat ients with mechanical heart valves.BLOOD [id number] 06:00:00* Test Item Value Reference Range Comments CULTURE (BEAKER) (test vgkh=3132) No growth in 5 days BLOOD [id number] 02:00:00* Test Item Value Reference Range Comments CULTURE (BEAKER) (test egbb=9822) No growth in 5 days LACTIC ACID, VENOUS, WHOLE [id number] 00:24:00* Test Item Value Reference Range Comments LACTATE BLOOD VENOUS (2) (BEAKER) (test jumn=3670) 1.3 mmol/L 0.5-2.2 Effective 11/11/2015: Units/Reference Range ChangeNew: 0.5-2.2 mmol/L Previous: 5 -20 mg/dLCBC W/PLT COUNT & AUTO [id number] 14:10:00* Test Item Value Reference Range Comments WHITE BLOOD CELL COUNT (BEAKER) (test urib=267) 16.2 K/ L 3.5-10.5 RED BLOOD CELL COUNT (BEAKER) (test zzts=871) 3.14 M/ L 3.93-5.22 HEMOGLOBIN (BEAKER) (test smmw=366) 8.2 GM/DL 11.2-15.7 HEMATOCRIT (BEAKER) (test qmqo=999) 25.7 % 34.1-44.9 MEAN CORPUSCULAR VOLUME (BEAKER) (test iqri=172) 81.8 fL 79.4-94.8 MEAN CORPUSCULAR HEMOGLOBIN (BEAKER) (test cnbl=046) 26.1 pg 25.6-32.2 MEAN CORPUSCULAR HEMOGLOBIN CONC (BEAKER) (test iwxo=428) 31.9 GM/DL 32.2-35.5 RED CELL DISTRIBUTION WIDTH (BEAKER) (test dbaj=856) 18.0 % 11.7-14.4 PLATELET COUNT (BEAKER) (test gqch=197) 188 K/CU MM 150-450 MEAN PLATELET VOLUME (BEAKER) (test mari=798) 10.6 fL 9.4-12.3 NUCLEATED RED BLOOD CELLS (BEAKER) (test lpun=331) 0 /100 WBC 0-0 (CELLAVISION MANUAL DIFF)2018-03-12 14:10:00* Test Item Value Reference Range Comments NEUTROPHILS - REL (CELLAVISION)(BEAKER) (test wzhd=9352) 85 % LYMPHOCYTES - REL (CELLAVISION)(BEAKER) (test isfu=5446) 12 % EOSINOPHILS - REL (CELLAVISION)(BEAKER) (test tpzw=9037) 3 % NEUTROPHILS - ABS (CELLAVISION)(BEAKER) (test rsbv=5639) 13.77 K/ul 1.56-6.13 LYMPHOCYTES - ABS (CELLAVISION)(BEAKER) (test nayp=4267) 1.94 K/ul 1.18-3.74 EOSINOPHILS - ABS (CELLAVISION)(BEAKER) (test hygf=8997) 0.49 K/uL 0.04-0.36 TOTAL COUNTED (BEAKER) (test dxxj=1583) 100 WBC MORPHOLOGY (BEAKER) (test rilj=697) Normal LARGE PLT(BEAKER) (test otns=1291) Present POLYCHROMATOPHILLIC RBCS(BEAKER) (test buhj=296) 1+ few HYPOCHROMIA (BEAKER) (test wuuo=550) 1+ few OVALOCYTES (BEAKER) (test asvq=263) 1+ few TEAR DROP CELLS (BEAKER) (test kaoq=710) 1+ few ARTIFACT (CELLAVISION)(BEAKER) (test mixs=8402) Present PLATELET CONCENTRATION (CELLAVISION)(BEAKER) (test dzit=9653) Adequate Received comment: User comments: Slide comments: BASIC METABOLIC [id number] 13:45:00* Test Item Value Reference Range Comments SODIUM (BEAKER) (test llbf=094) 134 meq/L 136-145 POTASSIUM (BEAKER) (test lvbs=691) 3.8 meq/L 3.5-5.1 CHLORIDE (BEAKER) (test autl=389) 104 meq/L 98-107 CO2 (BEAKER) (test iego=708) 20 meq/L 22-29 BLOOD UREA NITROGEN (BEAKER) (test fhqi=482) 8 mg/dL 7-21 CREATININE (BEAKER) (test josp=938) 0.69 mg/dL 0.57-1.25 GLUCOSE RANDOM (BEAKER) (test kdfm=939) 95 mg/dL 70-105 CALCIUM (BEAKER) (test hodb=559) 8.7 mg/dL 8.4-10.2 EGFR (BEAKER) (test jbgk=0878) 95 mL/min/1.73 sq m ESTIMATED GFR IS NOT ACCURATE CREATININE CLEARANCE IN PREDICTING GLOMERULAR FILTRATION RATE. ESTIMATED GFR IS NOT APPLICABLE FOR DIALYSIS PATIENTS. RAD, CHEST, 1 VIEW, NON [id number] 16:56:00Reason for exam:->feverShould this be performed at the bedside?->YesFINAL REPORT Comparison: 01/23/2018 History: Fever Findings: The lungs are free of consolidation. Lung volumes are low with some associated vascular crowding at the lung bases. No pleural effusions or pneumothorax. The heart shadow and pulmonary vascularity are normal in appearance. The thoracic aorta appears normal in caliber. No skeletal abnormalities are visualized. A right central venous port catheter is present, with its tip in the SVC region. Impression: No evidence of acute cardiopulmonary disease. Signed: Dasha Aneport Verified Date/Time: 03/11/2018 16:56:44 Reading Location: [facility] C013T [facility] Reading Room Electronically signed by: DASHA AN MD on 03/11 04:56 PM OCCULT BLOOD, [id number] 14:52:00* Test Item Value Reference Range Comments FECAL OCCULT BLOOD (BEAKER) (test exka=688) Positive Negative CBC W/PLT COUNT & AUTO [id number] 06:55:00* Test Item Value Reference Range Comments WHITE BLOOD CELL COUNT (BEAKER) (test bcdv=523) 31.5 K/ L 3.5-10.5 RED BLOOD CELL COUNT (BEAKER) (test aget=017) 3.51 M/ L 3.93-5.22 HEMOGLOBIN (BEAKER) (test coah=069) 8.9 GM/DL 11.2-15.7 HEMATOCRIT (BEAKER) (test vhgo=109) 29.0 % 34.1-44.9 MEAN CORPUSCULAR VOLUME (BEAKER) (test imqq=275) 82.6 fL 79.4-94.8 MEAN CORPUSCULAR HEMOGLOBIN (BEAKER) (test pmip=702) 25.4 pg 25.6-32.2 MEAN CORPUSCULAR HEMOGLOBIN CONC (BEAKER) (test vtln=519) 30.7 GM/DL 32.2-35.5 RED CELL DISTRIBUTION WIDTH (BEAKER) (test xckm=644) 18.1 % 11.7-14.4 PLATELET COUNT (BEAKER) (test borj=045) 231 K/CU MM 150-450 MEAN PLATELET VOLUME (BEAKER) (test wgkt=424) 10.5 fL 9.4-12.3 NUCLEATED RED BLOOD CELLS (BEAKER) (test vztw=834) 0 /100 WBC 0-0 (CELLAVISION MANUAL DIFF)2018-03-11 06:55:00* Test Item Value Reference Range Comments NEUTROPHILS - REL (CELLAVISION)(BEAKER) (test xaau=3277) 80 % LYMPHOCYTES - REL (CELLAVISION)(BEAKER) (test ldzb=4225) 12 % BANDS - REL (CELLAVISION)(BEAKER) (test cdhq=1852) 8 % 0-10 NEUTROPHILS - ABS (CELLAVISION)(BEAKER) (test kaxa=7049) 25.20 K/ul 1.56-6.13 LYMPHOCYTES - ABS (CELLAVISION)(BEAKER) (test ilca=5089) 3.78 K/ul 1.18-3.74 BANDS - ABS (CELLAVISION)(BEAKER) (test goqk=4099) 2.52 K/uL 0.00-0.80 TOTAL COUNTED (BEAKER) (test zspl=0766) 100 WBC MORPHOLOGY (BEAKER) (test hess=705) Normal PLT MORPHOLOGY (BEAKER) (test tfef=093) Normal ANISOCYTOSIS (BEAKER) (test yuyx=492) 1+ few MICROCYTES (BEAKER) (test pkbm=800) 1+ few POIKILOCYTES (BEAKER) (test tthv=151) 2+ moderate OVALOCYTES (BEAKER) (test glob=948) 1+ few TEAR DROP CELLS (BEAKER) (test bmlj=142) 1+ few ARTIFACT (CELLAVISION)(BEAKER) (test axlz=2979) Present PLATELET CONCENTRATION (CELLAVISION)(BEAKER) (test agox=4534) Adequate Received comment: User comments: Slide comments: [id number] 06:25:00* Test Item Value Reference Range Comments MAGNESIUM (BEAKER) (test cgpx=806) 2.0 mg/dL 1.6-2.6 BASIC METABOLIC [id number] 06:25:00* Test Item Value Reference Range Comments SODIUM (BEAKER) (test jpni=208) 136 meq/L 136-145 POTASSIUM (BEAKER) (test hgrz=862) 3.9 meq/L 3.5-5.1 CHLORIDE (BEAKER) (test usmx=652) 107 meq/L 98-107 CO2 (BEAKER) (test ammt=686) 21 meq/L 22-29 BLOOD UREA NITROGEN (BEAKER) (test phpx=871) 9 mg/dL 7-21 CREATININE (BEAKER) (test odqd=930) 0.73 mg/dL 0.57-1.25 GLUCOSE RANDOM (BEAKER) (test tzja=012) 100 mg/dL 70-105 CALCIUM (BEAKER) (test gmku=263) 9.3 mg/dL 8.4-10.2 EGFR (BEAKER) (test jxwh=2762) 89 mL/min/1.73 sq m ESTIMATED GFR IS NOT ACCURATE CREATININE CLEARANCE IN PREDICTING GLOMERULAR FILTRATION RATE. ESTIMATED GFR IS NOT APPLICABLE FOR DIALYSIS PATIENTS. C. DIFFICILE GDH [id number] 09:52:00* Test Item Value Reference Range Comments CDT TOXIN (test vled=[id number]) Negative Negative CDT GDH ANTIGEN (test favo=[id number]) Positive Negative C. difficile present but toxin not detected. Indicates colonization with non-toxigenic strain or level of toxin below detectable levels. No need for enteric isolation. Treatment is rarely needed (only when strong clinical suspicion for Clostridium difficile infection) Testing performed by [employer] Rapid [employer] Assay. For GDH, published sensitivity of the assay is 98.7% compared to cytotoxicity testing. For Toxin AB, publishe d sensitivity is 87.8% and specificity 99.4% compared to cytotoxicity testing.Ve rification of kit performance was done by the [facility] Microbiology Lab prior to cl inical use.[id number] 07:55:00* Test Item Value Reference Range Comments MAGNESIUM (BEAKER) (test hhqx=493) 2.2 mg/dL 1.6-2.6 BASIC METABOLIC [id number] 07:55:00* Test Item Value Reference Range Comments SODIUM (BEAKER) (test rxvx=500) 135 meq/L 136-145 POTASSIUM (BEAKER) (test fgpj=662) 3.8 meq/L 3.5-5.1 CHLORIDE (BEAKER) (test frph=506) 104 meq/L 98-107 CO2 (BEAKER) (test dgkc=551) 22 meq/L 22-29 BLOOD UREA NITROGEN (BEAKER) (test zynj=426) 13 mg/dL 7-21 CREATININE (BEAKER) (test stut=984) 0.76 mg/dL 0.57-1.25 GLUCOSE RANDOM (BEAKER) (test hfxr=562) 82 mg/dL 70-105 CALCIUM (BEAKER) (test lsuo=611) 8.9 mg/dL 8.4-10.2 EGFR (BEAKER) (test kzfc=7145) 85 mL/min/1.73 sq m ESTIMATED GFR IS NOT ACCURATE CREATININE CLEARANCE IN PREDICTING GLOMERULAR FILTRATION RATE. ESTIMATED GFR IS NOT APPLICABLE FOR DIALYSIS PATIENTS. CBC W/PLT COUNT & AUTO [id number] 07:36:00* Test Item Value Reference Range Comments WHITE BLOOD CELL COUNT (BEAKER) (test jhzr=403) 4.3 K/ L 3.5-10.5 RED BLOOD CELL COUNT (BEAKER) (test lehd=030) 3.49 M/ L 3.93-5.22 HEMOGLOBIN (BEAKER) (test pxax=303) 8.7 GM/DL 11.2-15.7 HEMATOCRIT (BEAKER) (test bjzx=360) 28.7 % 34.1-44.9 MEAN CORPUSCULAR VOLUME (BEAKER) (test vfnm=462) 82.2 fL 79.4-94.8 MEAN CORPUSCULAR HEMOGLOBIN (BEAKER) (test zast=713) 24.9 pg 25.6-32.2 MEAN CORPUSCULAR HEMOGLOBIN CONC (BEAKER) (test gywv=842) 30.3 GM/DL 32.2-35.5 RED CELL DISTRIBUTION WIDTH (BEAKER) (test ivwx=987) 18.6 % 11.7-14.4 PLATELET COUNT (BEAKER) (test hygm=451) 236 K/CU MM 150-450 MEAN PLATELET VOLUME (BEAKER) (test ioeb=224) 9.8 fL 9.4-12.3 NUCLEATED RED BLOOD CELLS (BEAKER) (test relc=116) 0 /100 WBC 0-0 NEUTROPHILS RELATIVE PERCENT (BEAKER) (test klvm=057) 43 % LYMPHOCYTES RELATIVE PERCENT (BEAKER) (test gkdz=751) 47 % MONOCYTES RELATIVE PERCENT (BEAKER) (test qtrv=997) 6 % EOSINOPHILS RELATIVE PERCENT (BEAKER) (test stlt=335) 4 % BASOPHILS RELATIVE PERCENT (BEAKER) (test daum=267) 1 % NEUTROPHILS ABSOLUTE COUNT (BEAKER) (test wxyr=670) 1.83 K/ L 1.56-6.13 LYMPHOCYTES ABSOLUTE COUNT (BEAKER) (test wxof=982) 2.03 K/ L 1.18-3.74 MONOCYTES ABSOLUTE COUNT (BEAKER) (test agmt=846) 0.26 K/ L 0.24-0.36 EOSINOPHILS ABSOLUTE COUNT (BEAKER) (test logd=022) 0.15 K/ L 0.04-0.36 BASOPHILS ABSOLUTE COUNT (BEAKER) (test mcjb=486) 0.02 K/ L 0.01-0.08 IMMATURE GRANULOCYTES-RELATIVE PERCENT (BEAKER) (test rqdb=4386) 0 % 0-1 CT, [id number] 03:22:00FINAL REPORT CLINICAL HISTORY: Neoplasm staging FINDINGS: Multiple axial images of the chest, abdomen and pelvis were performed after the uncomplicated administration of IV contrast. Oral contrast was not given. This exam was performed according to our departmental dose-optimization program, which includes automated exposure control, adjustment of the mA and/or kV according to patient size and/or use of the iterative reconstruction technique. Comparison: CT abdomen and pelvis dated March 07, 2018. CT chest dated November 25, 2017. Chest: Lung parenchyma: Bilateral dependent atelectasis. No suspicious nodule or mass. Pleural effusion: None. Pneumothorax: None. Tracheobronchial tree: No significant findings. Pulmonary vasculature: No significant findings. Cardiac contours and great vessels: No significant findings. Mediastinum: No significant findings. Lymph Nodes: No adenopathy in the mediastinum or cheo. Skeleton: No CT evidence of osseous metastatic disease in the thorax Other: Right IJ chest port. Bilateral breast prostheses appear intact. Abdomen and pelvis: Liver: Diffuse low-density liver parenchyma consistent with steatosis. No hepatic masses. Gallbladder and biliary tree: Previous cholecystectomy. Spleen: No significant findings. Adrenal Glands: No significant findings. Kidneys and ureters: 2 nonobstructing right kidney stones measuring approximately 3 mm each Stomach and Duodenum: No sig nificant findings. Pancreas: Distal pancreatic atrophy. No definite abnormal dumont creatic enhancing lesion. Bowel: No significant findings. Appendix: Normal. Bladder: No significant findings. Major vascular structures: No significant find ings. Reproductive organs: Previous hysterectomy Other: No free air, fluid or a denopathy Skeleton: No CT evidence of bony metastatic disease. IMPRESSION: No C T evidence of primary or metastatic disease in the chest, abdomen or pelvis. The distal pancreas is atrophic but no abnormally enhancing mass lesion is identifi ed in the pancreatic parenchyma. Correlation with pancreas protocol CT or MRI ca n be performed, if indicated. 2 nonobstructing right kidney stones. Hepatic stea tosis. Signed: Nelida Clark MDReport Verified Date/Time: 03/10/2018 03:22:18 Anushka barba Location: [address] Room , CHEST, WITH CONTRAST 2018-03-10 03:22:00FINAL REPORT CLINICAL HISTORY: Neoplasm staging FINDINGS: Multiple axial images of the chest, abdomen and pelvis were performed after the uncomplicated administration of IV contrast. Oral contrast was not given. This exam was performed according to our departmental dose-optimization program, which includes automated exposure control, adjustment of the mA and/or kV according to patient size and/or use of the iterative reconstruction technique. Comparison: CT abdomen and pelvis dated March 07, 2018. CT chest dated November 25, 2017. Chest: Lung parenchyma: Bilateral dependent atelectasis. No suspicious nodule or mass. Pleural effusion: None. Pneumothorax: None. Tracheobronchial tree: No significant findings. Pulmonary vasculature: No significant findings. Cardiac contours and great vessels: No significant findings. Mediastinum: No significant findings. Lymph Nodes: No adenopathy in the mediastinum or cheo. Skeleton: No CT evidence of osseous metastatic disease in the thorax Other: Right IJ chest port. Bilateral breast prostheses appear intact. Abdomen and pelvis: Liver: Diffuse low-density liver parenchyma consistent with steatosis. No hepatic masses. Gallbladder and biliary tree: Previous cholecystectomy. Spleen: No significant findings. Adrenal Glands: No significant findings. Kidneys and ureters: 2 nonobstructing right kidney stones measuring approximately 3 mm each Stomach and Duodenum: No sig nificant findings. Pancreas: Distal pancreatic atrophy. No definite abnormal dumont creatic enhancing lesion. Bowel: No significant findings. Appendix: Normal. Bladder: No significant findings. Major vascular structures: No significant find ings. Reproductive organs: Previous hysterectomy Other: No free air, fluid or a denopathy Skeleton: No CT evidence of bony metastatic disease. IMPRESSION: No C T evidence of primary or metastatic disease in the chest, abdomen or pelvis. The distal pancreas is atrophic but no abnormally enhancing mass lesion is identifi ed in the pancreatic parenchyma. Correlation with pancreas protocol CT or MRI ca n be performed, if indicated. 2 nonobstructing right kidney stones. Hepatic stea tosis. Signed: Nelida Clark MDReport Verified Date/Time: 03/10/2018 03:22:18 R freda Location: [address] Room E [id number] 12:54:00* Test Item Value Reference Range Comments CULTURE (BEAKER) (test gdhr=1496) <10,000 col/mL skin rachele [id number] 06:26:00* Test Item Value Reference Range Comments MAGNESIUM (BEAKER) (test pypo=813) 2.2 mg/dL 1.6-2.6 Specimen slightly hemolyzed BASIC METABOLIC [id number] 06:26:00* Test Item Value Reference Range Comments SODIUM (BEAKER) (test mmor=497) 137 meq/L 136-145 POTASSIUM (BEAKER) (test yxos=931) 4.4 meq/L 3.5-5.1 Specimen slightly hemolyzed CHLORIDE (BEAKER) (test qmji=602) 107 meq/L 98-107 CO2 (BEAKER) (test yssc=142) 21 meq/L 22-29 BLOOD UREA NITROGEN (BEAKER) (test kble=850) 13 mg/dL 7-21 CREATININE (BEAKER) (test auen=984) 0.77 mg/dL 0.57-1.25 Specimen slightly hemolyzed GLUCOSE RANDOM (BEAKER) (test hgbi=192) 93 mg/dL 70-105 CALCIUM (BEAKER) (test fopm=464) 9.4 mg/dL 8.4-10.2 EGFR (BEAKER) (test ryoc=5931) 84 mL/min/1.73 sq m ESTIMATED GFR IS NOT ACCURATE CREATININE CLEARANCE IN PREDICTING GLOMERULAR FILTRATION RATE. ESTIMATED GFR IS NOT APPLICABLE FOR DIALYSIS PATIENTS. CBC W/PLT COUNT & AUTO [id number] 06:06:00* Test Item Value Reference Range Comments WHITE BLOOD CELL COUNT (BEAKER) (test qavu=372) 3.5 K/ L 3.5-10.5 RED BLOOD CELL COUNT (BEAKER) (test csnm=095) 3.53 M/ L 3.93-5.22 HEMOGLOBIN (BEAKER) (test dnbz=748) 8.8 GM/DL 11.2-15.7 HEMATOCRIT (BEAKER) (test ojdx=982) 29.2 % 34.1-44.9 MEAN CORPUSCULAR VOLUME (BEAKER) (test htxj=592) 82.7 fL 79.4-94.8 MEAN CORPUSCULAR HEMOGLOBIN (BEAKER) (test jphy=188) 24.9 pg 25.6-32.2 MEAN CORPUSCULAR HEMOGLOBIN CONC (BEAKER) (test jhwy=936) 30.1 GM/DL 32.2-35.5 RED CELL DISTRIBUTION WIDTH (BEAKER) (test rzud=785) 18.9 % 11.7-14.4 PLATELET COUNT (BEAKER) (test phes=834) 205 K/CU MM 150-450 MEAN PLATELET VOLUME (BEAKER) (test ujob=931) 10.0 fL 9.4-12.3 NUCLEATED RED BLOOD CELLS (BEAKER) (test daoj=761) 0 /100 WBC 0-0 NEUTROPHILS RELATIVE PERCENT (BEAKER) (test nyfk=797) 44 % LYMPHOCYTES RELATIVE PERCENT (BEAKER) (test xlyn=337) 40 % MONOCYTES RELATIVE PERCENT (BEAKER) (test dota=598) 11 % EOSINOPHILS RELATIVE PERCENT (BEAKER) (test ijla=566) 4 % BASOPHILS RELATIVE PERCENT (BEAKER) (test mnjq=728) 1 % NEUTROPHILS ABSOLUTE COUNT (BEAKER) (test nlex=566) 1.52 K/ L 1.56-6.13 LYMPHOCYTES ABSOLUTE COUNT (BEAKER) (test ewao=334) 1.38 K/ L 1.18-3.74 MONOCYTES ABSOLUTE COUNT (BEAKER) (test osgx=588) 0.37 K/ L 0.24-0.36 EOSINOPHILS ABSOLUTE COUNT (BEAKER) (test iemv=482) 0.14 K/ L 0.04-0.36 BASOPHILS ABSOLUTE COUNT (BEAKER) (test gjkd=065) 0.03 K/ L 0.01-0.08 IMMATURE GRANULOCYTES-RELATIVE PERCENT (BEAKER) (test togg=8446) 0 % 0-1 BASIC METABOLIC [id number] 10:59:00* Test Item Value Reference Range Comments SODIUM (BEAKER) (test bnva=547) 136 meq/L 136-145 POTASSIUM (BEAKER) (test efzv=390) 4.2 meq/L 3.5-5.1 CHLORIDE (BEAKER) (test nfyx=035) 108 meq/L 98-107 CO2 (BEAKER) (test adqs=640) 21 meq/L 22-29 BLOOD UREA NITROGEN (BEAKER) (test rjfa=047) 15 mg/dL 7-21 CREATININE (BEAKER) (test kgwh=544) 0.83 mg/dL 0.57-1.25 GLUCOSE RANDOM (BEAKER) (test afoz=763) 103 mg/dL 70-105 CALCIUM (BEAKER) (test bbxx=324) 9.9 mg/dL 8.4-10.2 EGFR (BEAKER) (test fdoe=4016) 77 mL/min/1.73 sq m ESTIMATED GFR IS NOT ACCURATE CREATININE CLEARANCE IN PREDICTING GLOMERULAR FILTRATION RATE. ESTIMATED GFR IS NOT APPLICABLE FOR DIALYSIS PATIENTS. CBC W/PLT COUNT & AUTO [id number] 10:46:00* Test Item Value Reference Range Comments WHITE BLOOD CELL COUNT (BEAKER) (test cabv=966) 8.8 K/ L 3.5-10.5 RED BLOOD CELL COUNT (BEAKER) (test gtth=476) 3.71 M/ L 3.93-5.22 HEMOGLOBIN (BEAKER) (test rgnd=181) 9.3 GM/DL 11.2-15.7 HEMATOCRIT (BEAKER) (test ivfq=266) 30.3 % 34.1-44.9 MEAN CORPUSCULAR VOLUME (BEAKER) (test dyly=796) 81.7 fL 79.4-94.8 MEAN CORPUSCULAR HEMOGLOBIN (BEAKER) (test gpnd=699) 25.1 pg 25.6-32.2 MEAN CORPUSCULAR HEMOGLOBIN CONC (BEAKER) (test ibuh=778) 30.7 GM/DL 32.2-35.5 RED CELL DISTRIBUTION WIDTH (BEAKER) (test vard=475) 18.9 % 11.7-14.4 PLATELET COUNT (BEAKER) (test lzmk=680) 227 K/CU MM 150-450 MEAN PLATELET VOLUME (BEAKER) (test vezz=717) 9.6 fL 9.4-12.3 NUCLEATED RED BLOOD CELLS (BEAKER) (test tnno=630) 0 /100 WBC 0-0 NEUTROPHILS RELATIVE PERCENT (BEAKER) (test hrfi=553) 75 % LYMPHOCYTES RELATIVE PERCENT (BEAKER) (test muze=696) 11 % MONOCYTES RELATIVE PERCENT (BEAKER) (test zrdx=136) 13 % EOSINOPHILS RELATIVE PERCENT (BEAKER) (test ddzt=556) 0 % BASOPHILS RELATIVE PERCENT (BEAKER) (test yzzw=388) 0 % NEUTROPHILS ABSOLUTE COUNT (BEAKER) (test yeep=676) 6.58 K/ L 1.56-6.13 LYMPHOCYTES ABSOLUTE COUNT (BEAKER) (test vcvu=460) 1.00 K/ L 1.18-3.74 MONOCYTES ABSOLUTE COUNT (BEAKER) (test zqyo=010) 1.10 K/ L 0.24-0.36 EOSINOPHILS ABSOLUTE COUNT (BEAKER) (test tzym=028) 0.00 K/ L 0.04-0.36 BASOPHILS ABSOLUTE COUNT (BEAKER) (test qttk=327) 0.03 K/ L 0.01-0.08 IMMATURE GRANULOCYTES-RELATIVE PERCENT (BEAKER) (test zetz=7679) 1 % 0-1 POCT-LACTIC ACID, [id number] 02:21:00* Test Item Value Reference Range Comments POC-LACTIC ACID, VENOUS (BEAKER) (test xjxj=7622) 1.6 mmol/L 0.9-1.7 TESTED AT [address] [address] POCT-LACTIC ACID, [id number] 00:20:00* Test Item Value Reference Range Comments POC-LACTIC ACID, VENOUS (BEAKER) (test xhun=2092) 2.3 mmol/L 0.9-1.7 TESTED AT [address] [address] [address], [id number] 00:15:00Reason for exam:->ABDOMINAL PAINReason for exam:-> FEVERReason for exam:->EMESISReason for exam:->DIARRHEAIs the patient ?- >NoWhat is the patient's sedation requirement?->No SedationFINAL REPORT CT, ABDOMEN \\T\\ PELVIS, WITHOUT IV CONTRAST INDICATION: Abdominal pain, unspecifiedABDOMINAL PAINFEVEREMESISDIARRHEA COMPARISON: CT abdomen and pelvis, 01/23/2018. TECHNIQUE:Noncontrast abdomen and pelvis CT. Coronal and sagittal reformatted images obtained. DOSE REDUCTION: Dose modulation, iterative reconstruction, and/or weight-based adjustment of the mA/kV was utilized to reduce the radiation dose to as low as reasonably achievable. FIN DINGS: Lower thorax: Visible airspaces clear. No effusion. Liver: Limited evalua tion given lack of intravenous contrast material however no focal abnormality. S uggestion of mild hepatic steatosis.Gallbladder and biliary tree: Postsurgical c hanges of cholecystectomy no evidence of intra or extrahepatic biliary ductal di latation.Pancreas: Decreased prominence of the pancreatic head in relation of th e body when compared to study from 2017.Spleen: No acute findingsAdrenal Gl ands: No acute findings.Kidneys and ureters: Unchanged bilateral nephrolithiasis , right greater than left. No contour deforming renal lesions. No hydroureter.Bl adder and reproductive organs: Bladder is unremarkable. Postsurgical changes of a hysterectomy. Stomach and Duodenum: No significant findings.Small and large in testine: Moderate stool burden throughout the large bowel particularly the cecum .Appendix: Normal. Major vascular structures: Normal aortic caliber.Peritoneum a nd retroperitoneum: Rounded focal area of fat stranding in the anterior right ab domen, new in the interval with associated calcification favored to represent ep iploic appendagitis. Skeleton: No acute bony abnormality.Additional findings: No ne. IMPRESSION:Moderate stool burden throughout the large bowel.Findings sugges tive of epiploic appendicitis in the right anterior abdomen. Unchanged bilateral nephrolithiasis without evidence of hydronephrosis or hydroureter. Signed: Salma Rodarte Verified Date/Time: 03/08/2018 00:15:16 Reading Locati on: [facility] B1 C013T Transitional Reading Room W/PLT COUNT & AUTO DIFFERENTIAL 2018-03-07 23:06:00* Test Item Value Reference Range Comments WHITE BLOOD CELL COUNT (BEAKER) (test jcsa=849) 5.2 K/ L 3.5-10.5 RED BLOOD CELL COUNT (BEAKER) (test cjhj=270) 3.92 M/ L 3.93-5.22 HEMOGLOBIN (BEAKER) (test ugzs=739) 9.8 GM/DL 11.2-15.7 HEMATOCRIT (BEAKER) (test ohed=828) 32.0 % 34.1-44.9 MEAN CORPUSCULAR VOLUME (BEAKER) (test enwu=458) 81.6 fL 79.4-94.8 MEAN CORPUSCULAR HEMOGLOBIN (BEAKER) (test xtua=770) 25.0 pg 25.6-32.2 MEAN CORPUSCULAR HEMOGLOBIN CONC (BEAKER) (test ylal=485) 30.6 GM/DL 32.2-35.5 RED CELL DISTRIBUTION WIDTH (BEAKER) (test brpb=023) 18.6 % 11.7-14.4 PLATELET COUNT (BEAKER) (test arnp=627) 226 K/CU MM 150-450 MEAN PLATELET VOLUME (BEAKER) (test pqrz=081) 9.6 fL 9.4-12.3 NUCLEATED RED BLOOD CELLS (BEAKER) (test zdzy=054) 0 /100 WBC 0-0 NEUTROPHILS RELATIVE PERCENT (BEAKER) (test wzlw=691) 76 % LYMPHOCYTES RELATIVE PERCENT (BEAKER) (test lehu=049) 19 % MONOCYTES RELATIVE PERCENT (BEAKER) (test uuiy=846) 5 % EOSINOPHILS RELATIVE PERCENT (BEAKER) (test insr=190) 0 % BASOPHILS RELATIVE PERCENT (BEAKER) (test jtlq=855) 0 % NEUTROPHILS ABSOLUTE COUNT (BEAKER) (test wuxf=788) 3.95 K/ L 1.56-6.13 LYMPHOCYTES ABSOLUTE COUNT (BEAKER) (test srkl=649) 0.97 K/ L 1.18-3.74 MONOCYTES ABSOLUTE COUNT (BEAKER) (test zmmu=353) 0.26 K/ L 0.24-0.36 EOSINOPHILS ABSOLUTE COUNT (BEAKER) (test cgzg=507) 0.00 K/ L 0.04-0.36 BASOPHILS ABSOLUTE COUNT (BEAKER) (test dfms=488) 0.00 K/ L 0.01-0.08 IMMATURE GRANULOCYTES-RELATIVE PERCENT (BEAKER) (test nzwu=2106) 1 % 0-1 URINALYSIS W/ REFLEX URINE [id number] 22:17:00* Test Item Value Reference Range Comments COLOR (BEAKER) (test qgfw=197) Yellow CLARITY (BEAKER) (test ukzf=671) Hazy SPECIFIC GRAVITY UA (BEAKER) (test xhsn=074) 1.013 1.001-1.035 PH UA (BEAKER) (test omad=495) 7.0 5.0-8.0 PROTEIN UA (BEAKER) (test purb=005) 20 mg/dL Negative GLUCOSE UA (BEAKER) (test kyvd=207) Negative Negative KETONES UA (BEAKER) (test jmdp=693) Negative Negative BILIRUBIN UA (BEAKER) (test hdmb=848) Negative Negative BLOOD UA (BEAKER) (test mftk=161) Moderate Negative NITRITE UA (BEAKER) (test ptoq=038) Negative Negative LEUKOCYTE ESTERASE UA (BEAKER) (test fruo=728) Negative Negative UROBILINOGEN UA (BEAKER) (test nxuq=791) 0.2 mg/dL 0.2-1.0 RBC UA (BEAKER) (test gkve=982) 101 /HPF WBC UA (BEAKER) (test xvsa=135) 6 /HPF BACTERIA (BEAKER) (test guam=531) Occasional SQUAMOUS EPITHELIAL (BEAKER) (test byxd=956) 6 /HPF SOURCE(BEAKER) (test ulkn=1844) BASIC METABOLIC [id number] 22:16:00* Test Item Value Reference Range Comments SODIUM (BEAKER) (test dotv=574) 137 meq/L 136-145 POTASSIUM (BEAKER) (test fwyw=095) 4.4 meq/L 3.5-5.1 Specimen slightly hemolyzed CHLORIDE (BEAKER) (test crey=456) 110 meq/L 98-107 CO2 (BEAKER) (test qelg=066) 17 meq/L 22-29 BLOOD UREA NITROGEN (BEAKER) (test ciax=370) 13 mg/dL 7-21 CREATININE (BEAKER) (test kygr=211) 0.86 mg/dL 0.57-1.25 Specimen slightly hemolyzed GLUCOSE RANDOM (BEAKER) (test fsav=007) 122 mg/dL 70-105 CALCIUM (BEAKER) (test dkqy=622) 9.6 mg/dL 8.4-10.2 EGFR (BEAKER) (test pves=9421) 74 mL/min/1.73 sq m ESTIMATED GFR IS NOT ACCURATE CREATININE CLEARANCE IN PREDICTING GLOMERULAR FILTRATION RATE. ESTIMATED GFR IS NOT APPLICABLE FOR DIALYSIS PATIENTS. LACTIC ACID, VENOUS, WHOLE [id number] 22:13:00* Test Item Value Reference Range Comments LACTATE BLOOD VENOUS (2) (BEAKER) (test mstt=1684) 2.3 mmol/L 0.5-2.2 Specimen slightly hemolyzed Effective 11/11/2015: Units/Reference Range ChangeNew: 0.5-2.2 mmol/L Previous: 5 -20 mg/dLABDOMEN-1VIEW (KUB)2018-02-13 17:54:00 [place] [id number] Patient Name: BELIA VIGIL MR #: [id number] : 1980 Age/Sex: 37/F Req #: [id number] Adm Physician: Ordered by: BLADIMIR NAGEL MD Report #: [id number] Location: Room/Bed: Procedure: [id number] DX/ABDOMEN-1VIEW (KUB) Ex am Date: Exam Time: REPORT STATUS: Signed PROCEDURE: X-RAY ABDOMEN - KUB COMPARISON: None. INDICATIONS: EMESIS, NAUSEA, LOW GRADE FEVER, ABDOMEN AND BACK PAIN X 4DAYS FINDINGS : Nonobstructive bowel gas pattern. No air filled, dilated loops of edward l. Mild retained stool in the distal colon/rectum. No abnormal calcifications project over the genitourinary system. No bony abnormalities. Lung bases are clear. CONCLUSION: Nonobstructive bowel gas pattern. No air-fill ed, dilated loops of bowel. Mild retained stool in the distal colon/rectum Angel Pierce M.D. Dictated by: Angel Pierce M.D. on 018 at 17:54 Electronically approved by: Angel Pierce M.D. on 02/13 at 17:54 Dictated By: ANGEL PIERCE MD 53 Transcribed By: KALINA on 02/13/181753 COPY TO: BLADIMIR NAGEL MD TISSUE [id number] 16:19:00Surgical Pathology Report Case: [id number] Authorizing Provider: Bernard Luciano MD Collected: 02/07/2018 1159 Ordering Location: [address] Received: 02/08/2018 0748 SERVICE Pathologist: Anel Ritchie MD Specimen: Large Intestine, Colon - Sigmoid, cold bx COLON, SIGMOID, RANDOM ENDOSCOPIC BIOPSY: - NO PATHOLOGIC ALTERATION - NO ARCHITECTURAL DISTORTION SEEN - NO INCREASED CHRONIC INFLAMMATION, GRANULOMAS ,VIRAL INCLUSIONS, DYSPLASIA OR MALIGNANCY PRESENT Signing Pathologist Direct Phone Line: [phone] signed by Anel Ritchie MD on 02/09/2018 at 4:19 [id number] Sigmoid colon biopsy The specimen is received in a formalin-filled container labeled with the patient's information and labeled "sigmoid colon biopsy" and consists of three round fragments of bell tissue ranging from 0.1 to 0.3 cm, submitted in A1. CG/ew PERFORMEDBLOOD CULTURE 2018-02-08 00:00:00* Test Item Value Reference Range Comments CULTURE (BEAKER) (test zbpq=9772) No growth in 5 days BLOOD [id number] 00:00:00* Test Item Value Reference Range Comments CULTURE (BEAKER) (test hzkm=3916) No growth in 5 days CBC W/PLT COUNT & AUTO [id number] 10:20:00* Test Item Value Reference Range Comments WHITE BLOOD CELL COUNT (BEAKER) (test oyic=669) 3.4 K/ L 3.5-10.5 RED BLOOD CELL COUNT (BEAKER) (test gxvg=223) 3.54 M/ L 3.93-5.22 HEMOGLOBIN (BEAKER) (test qtug=125) 8.9 GM/DL 11.2-15.7 HEMATOCRIT (BEAKER) (test otfp=749) 29.6 % 34.1-44.9 MEAN CORPUSCULAR VOLUME (BEAKER) (test eoos=937) 83.6 fL 79.4-94.8 MEAN CORPUSCULAR HEMOGLOBIN (BEAKER) (test tduh=749) 25.1 pg 25.6-32.2 MEAN CORPUSCULAR HEMOGLOBIN CONC (BEAKER) (test njmt=038) 30.1 GM/DL 32.2-35.5 RED CELL DISTRIBUTION WIDTH (BEAKER) (test alzd=268) 21.0 % 11.7-14.4 PLATELET COUNT (BEAKER) (test wuoq=087) 217 K/CU MM 150-450 MEAN PLATELET VOLUME (BEAKER) (test bzxo=239) 10.6 fL 9.4-12.3 NUCLEATED RED BLOOD CELLS (BEAKER) (test dyxv=186) 1 /100 WBC 0-0 (CELLAVISION MANUAL DIFF)2018-02-07 10:20:00* Test Item Value Reference Range Comments NEUTROPHILS - REL (CELLAVISION)(BEAKER) (test eceq=0841) 42 % LYMPHOCYTES - REL (CELLAVISION)(BEAKER) (test nfnd=2087) 34 % MONOCYTES - REL (CELLAVISION)(BEAKER) (test kktj=0499) 15 % EOSINOPHILS - REL (CELLAVISION)(BEAKER) (test ombe=1218) 7 % ATYPICAL LYMPHOCYTES - REL (CELLAVISION)(BEAKER) (test fgqm=4511) 1 % 0-0 NEUTROPHILS - ABS (CELLAVISION)(BEAKER) (test mfyu=9285) 1.43 K/ul 1.56-6.13 LYMPHOCYTES - ABS (CELLAVISION)(BEAKER) (test rjga=0118) 1.16 K/ul 1.18-3.74 MONOCYTES - ABS (CELLAVISION)(BEAKER) (test iqzq=3768) 0.51 K/uL 0.24-0.36 EOSINOPHILS - ABS (CELLAVISION)(BEAKER) (test qter=4702) 0.24 K/uL 0.04-0.36 ATYPICAL LYMPHOCYTES - ABS (CELLAVISION)(BEAKER) (test zlrg=3472) 0.03 K/uL 0.00-0.00 TOTAL COUNTED (BEAKER) (test xdxm=8184) 100 MANUAL NRBC PER 100 CELLS (BEAKER) (test cpge=9073) 1 /100 WBC 0-0 WBC MORPHOLOGY (BEAKER) (test jqct=524) Normal PLT MORPHOLOGY (BEAKER) (test mnuk=140) Normal POLYCHROMATOPHILLIC RBCS(BEAKER) (test nkyv=939) 1+ few OVALOCYTES (BEAKER) (test hyvm=730) 2+ moderate TEAR DROP CELLS (BEAKER) (test cljx=363) 1+ few ARTIFACT (CELLAVISION)(BEAKER) (test rwni=7313) Present PLATELET CONCENTRATION (CELLAVISION)(BEAKER) (test bzwc=4453) Adequate Received comment: User comments: Slide comments: [id number] 06:09:00* Test Item Value Reference Range Comments MAGNESIUM (BEAKER) (test tsto=784) 2.1 mg/dL 1.6-2.6 COMPREHENSIVE METABOLIC [id number] 06:09:00* Test Item Value Reference Range Comments TOTAL PROTEIN (BEAKER) (test iwcm=296) 7.2 gm/dL 6.0-8.3 ALBUMIN (BEAKER) (test oqqd=2672) 3.9 g/dL 3.5-5.0 ALKALINE PHOSPHATASE (BEAKER) (test wihf=013) 147 U/L 40-150 BILIRUBIN TOTAL (BEAKER) (test uvue=735) 0.2 mg/dL 0.2-1.2 SODIUM (BEAKER) (test leny=043) 137 meq/L 136-145 POTASSIUM (BEAKER) (test pwzi=271) 3.9 meq/L 3.5-5.1 CHLORIDE (BEAKER) (test owpk=388) 105 meq/L 98-107 CO2 (BEAKER) (test owll=974) 24 meq/L 22-29 BLOOD UREA NITROGEN (BEAKER) (test ppux=453) 9 mg/dL 7-21 CREATININE (BEAKER) (test vzme=127) 0.67 mg/dL 0.57-1.25 GLUCOSE RANDOM (BEAKER) (test mlix=784) 120 mg/dL 70-105 CALCIUM (BEAKER) (test bglc=448) 9.5 mg/dL 8.4-10.2 AST (SGOT) (BEAKER) (test xpnl=515) 77 U/L 5-34 ALT (SGPT) (BEAKER) (test xlip=009) 49 U/L 6-55 EGFR (BEAKER) (test vqjy=0346) 99 mL/min/1.73 sq m ESTIMATED GFR IS NOT ACCURATE CREATININE CLEARANCE IN PREDICTING GLOMERULAR FILTRATION RATE. ESTIMATED GFR IS NOT APPLICABLE FOR DIALYSIS PATIENTS. [id number] 05:45:00* Test Item Value Reference Range Comments PHOSPHORUS (BEAKER) (test kudr=752) 3.9 mg/dL 2.3-4.7 [id number] 05:45:00* Test Item Value Reference Range Comments MAGNESIUM (BEAKER) (test sqjk=282) 2.5 mg/dL 1.6-2.6 COMPREHENSIVE METABOLIC [id number] 05:45:00* Test Item Value Reference Range Comments TOTAL PROTEIN (BEAKER) (test jqkg=921) 7.9 gm/dL 6.0-8.3 ALBUMIN (BEAKER) (test zgsf=4846) 3.8 g/dL 3.5-5.0 ALKALINE PHOSPHATASE (BEAKER) (test dnlm=010) 158 U/L 40-150 BILIRUBIN TOTAL (BEAKER) (test tlta=697) 0.2 mg/dL 0.2-1.2 SODIUM (BEAKER) (test sola=274) 136 meq/L 136-145 POTASSIUM (BEAKER) (test lnme=591) 4.1 meq/L 3.5-5.1 CHLORIDE (BEAKER) (test zfcq=644) 106 meq/L 98-107 CO2 (BEAKER) (test gmyf=339) 19 meq/L 22-29 BLOOD UREA NITROGEN (BEAKER) (test euvg=373) 11 mg/dL 7-21 CREATININE (BEAKER) (test wznt=033) 0.66 mg/dL 0.57-1.25 GLUCOSE RANDOM (BEAKER) (test adkk=213) 99 mg/dL 70-105 CALCIUM (BEAKER) (test nvpt=569) 9.4 mg/dL 8.4-10.2 AST (SGOT) (BEAKER) (test jbtq=472) 45 U/L 5-34 ALT (SGPT) (BEAKER) (test hght=393) 33 U/L 6-55 EGFR (BEAKER) (test pyhu=0047) 100 mL/min/1.73 sq m ESTIMATED GFR IS NOT ACCURATE CREATININE CLEARANCE IN PREDICTING GLOMERULAR FILTRATION RATE. ESTIMATED GFR IS NOT APPLICABLE FOR DIALYSIS PATIENTS. Specimen markedly lipemicCBC W/PLT COUNT & AUTO [id number] 05:22:00 * Test Item Value Reference Range Comments WHITE BLOOD CELL COUNT (BEAKER) (test uibe=265) 3.8 K/ L 3.5-10.5 RED BLOOD CELL COUNT (BEAKER) (test dvgr=624) 3.49 M/ L 3.93-5.22 HEMOGLOBIN (BEAKER) (test hjxg=688) 8.9 GM/DL 11.2-15.7 HEMATOCRIT (BEAKER) (test hemt=857) 28.9 % 34.1-44.9 MEAN CORPUSCULAR VOLUME (BEAKER) (test utxb=995) 82.8 fL 79.4-94.8 MEAN CORPUSCULAR HEMOGLOBIN (BEAKER) (test epgg=021) 25.5 pg 25.6-32.2 MEAN CORPUSCULAR HEMOGLOBIN CONC (BEAKER) (test ysof=179) 30.8 GM/DL 32.2-35.5 RED CELL DISTRIBUTION WIDTH (BEAKER) (test udai=109) 21.0 % 11.7-14.4 PLATELET COUNT (BEAKER) (test vgmx=535) 264 K/CU MM 150-450 MEAN PLATELET VOLUME (BEAKER) (test vsiy=020) 10.2 fL 9.4-12.3 NUCLEATED RED BLOOD CELLS (BEAKER) (test nmvp=969) 1 /100 WBC 0-0 NEUTROPHILS RELATIVE PERCENT (BEAKER) (test xega=236) 28 % LYMPHOCYTES RELATIVE PERCENT (BEAKER) (test mzei=344) 42 % MONOCYTES RELATIVE PERCENT (BEAKER) (test idgv=099) 18 % EOSINOPHILS RELATIVE PERCENT (BEAKER) (test chbi=561) 8 % BASOPHILS RELATIVE PERCENT (BEAKER) (test wxfs=352) 1 % NEUTROPHILS ABSOLUTE COUNT (BEAKER) (test gobi=688) 1.08 K/ L 1.56-6.13 LYMPHOCYTES ABSOLUTE COUNT (BEAKER) (test lcxi=573) 1.61 K/ L 1.18-3.74 MONOCYTES ABSOLUTE COUNT (BEAKER) (test pwky=284) 0.68 K/ L 0.24-0.36 EOSINOPHILS ABSOLUTE COUNT (BEAKER) (test oalj=682) 0.30 K/ L 0.04-0.36 BASOPHILS ABSOLUTE COUNT (BEAKER) (test inxu=121) 0.02 K/ L 0.01-0.08 IMMATURE GRANULOCYTES-RELATIVE PERCENT (BEAKER) (test gmxg=2438) 3 % 0-1 CALCIUM, [id number] 05:19:00* Test Item Value Reference Range Comments CALCIUM IONIZED (BEAKER) (test asyt=159) 1.09 mmol/L 1.12-1.27 PH, BLOOD (BEAKER) (test zkli=8595) 7.36 MISCELLANEOUS LAB [id number] 14:37:00* Test Item Value Reference Range Comments SCAN RESULT (test leqw=[id number]) SEE SCANNED RESULTS OCCULT BLOOD, [id number] 23:32:00* Test Item Value Reference Range Comments FECAL OCCULT BLOOD (BEAKER) (test qqkz=099) Negative Negative CBC W/PLT COUNT & AUTO [id number] 09:03:00* Test Item Value Reference Range Comments WHITE BLOOD CELL COUNT (BEAKER) (test dvwk=412) 7.2 K/ L 3.5-10.5 RED BLOOD CELL COUNT (BEAKER) (test pxei=881) 3.31 M/ L 3.93-5.22 HEMOGLOBIN (BEAKER) (test sxau=230) 8.6 GM/DL 11.2-15.7 HEMATOCRIT (BEAKER) (test ftyk=421) 27.0 % 34.1-44.9 MEAN CORPUSCULAR VOLUME (BEAKER) (test moeu=824) 81.6 fL 79.4-94.8 MEAN CORPUSCULAR HEMOGLOBIN (BEAKER) (test yose=738) 26.0 pg 25.6-32.2 MEAN CORPUSCULAR HEMOGLOBIN CONC (BEAKER) (test uuoj=785) 31.9 GM/DL 32.2-35.5 RED CELL DISTRIBUTION WIDTH (BEAKER) (test fgbi=612) 20.5 % 11.7-14.4 PLATELET COUNT (BEAKER) (test ffch=680) 270 K/CU MM 150-450 MEAN PLATELET VOLUME (BEAKER) (test suxu=266) 9.4 fL 9.4-12.3 NUCLEATED RED BLOOD CELLS (BEAKER) (test fnlc=336) 1 /100 WBC 0-0 (CELLAVISION MANUAL DIFF)2018-02-04 09:03:00* Test Item Value Reference Range Comments NEUTROPHILS - REL (CELLAVISION)(BEAKER) (test sckz=9335) 60 % LYMPHOCYTES - REL (CELLAVISION)(BEAKER) (test qtnj=1707) 15 % MONOCYTES - REL (CELLAVISION)(BEAKER) (test elzw=3614) 1 % EOSINOPHILS - REL (CELLAVISION)(BEAKER) (test fruo=4438) 3 % METAMYELOCYTES - REL (CELLAVISION)(BEAKER) (test ewvo=0642) 8 % 0-0 MYELOCYTES - REL (CELLAVISION)(BEAKER) (test idrp=3417) 9 % 0-0 BANDS - REL (CELLAVISION)(BEAKER) (test tezs=4361) 3 % 0-10 ATYPICAL LYMPHOCYTES - REL (CELLAVISION)(BEAKER) (test hafe=9710) 1 % 0-0 NEUTROPHILS - ABS (CELLAVISION)(BEAKER) (test upao=5242) 4.32 K/ul 1.56-6.13 LYMPHOCYTES - ABS (CELLAVISION)(BEAKER) (test zwzs=0008) 1.08 K/ul 1.18-3.74 MONOCYTES - ABS (CELLAVISION)(BEAKER) (test dpvq=0172) 0.07 K/uL 0.24-0.36 EOSINOPHILS - ABS (CELLAVISION)(BEAKER) (test xruy=9990) 0.22 K/uL 0.04-0.36 METAMYELOCYTES - ABS (CELLAVISION)(BEAKER) (test ibkw=1513) 0.58 K/uL 0.00-0.00 MYELOCYTES-ABS (CELLAVISION)(BEAKER) (test havm=6968) 0.65 K/uL 0.00-0.00 BANDS - ABS (CELLAVISION)(BEAKER) (test voyf=3481) 0.22 K/uL 0.00-0.80 ATYPICAL LYMPHOCYTES - ABS (CELLAVISION)(BEAKER) (test nnnq=4713) 0.07 K/uL 0.00-0.00 TOTAL COUNTED (BEAKER) (test qahc=4815) 100 MANUAL NRBC PER 100 CELLS (BEAKER) (test qcff=4814) 3 /100 WBC 0-0 PLT MORPHOLOGY (BEAKER) (test nxgk=420) Normal SMUDGE CELLS (BEAKER) (test ytnb=9023) Present ANISOCYTOSIS (BEAKER) (test pqpt=753) 2+ moderate MICROCYTES (BEAKER) (test rhfv=980) 2+ moderate POIKILOCYTES (BEAKER) (test yoed=173) 3+ many SCHISTOCYTES (BEAKER) (test twou=468) 1+ few OVALOCYTES (BEAKER) (test hkvf=433) 1+ few ARTIFACT (CELLAVISION)(BEAKER) (test eupv=6746) Present PLATELET CONCENTRATION (CELLAVISION)(BEAKER) (test mbhz=0910) Adequate Received comment: User comments: Slide comments: [id number] 05:36:00* Test Item Value Reference Range Comments MAGNESIUM (BEAKER) (test akwq=166) 2.5 mg/dL 1.6-2.6 Specimen slightly hemolyzed BASIC METABOLIC [id number] 05:36:00* Test Item Value Reference Range Comments SODIUM (BEAKER) (test budn=342) 139 meq/L 136-145 POTASSIUM (BEAKER) (test cvsv=361) 3.9 meq/L 3.5-5.1 Specimen slightly hemolyzed CHLORIDE (BEAKER) (test xklz=576) 108 meq/L 98-107 CO2 (BEAKER) (test umpl=719) 21 meq/L 22-29 BLOOD UREA NITROGEN (BEAKER) (test gjmr=515) 9 mg/dL 7-21 CREATININE (BEAKER) (test duaz=991) 0.66 mg/dL 0.57-1.25 Specimen slightly hemolyzed GLUCOSE RANDOM (BEAKER) (test cwbn=518) 107 mg/dL 70-105 CALCIUM (BEAKER) (test bcmz=342) 9.0 mg/dL 8.4-10.2 EGFR (BEAKER) (test vtqq=1995) 100 mL/min/1.73 sq m ESTIMATED GFR IS NOT ACCURATE CREATININE CLEARANCE IN PREDICTING GLOMERULAR FILTRATION RATE. ESTIMATED GFR IS NOT APPLICABLE FOR DIALYSIS PATIENTS. CBC W/PLT COUNT & AUTO [id number] 11:01:00* Test Item Value Reference Range Comments WHITE BLOOD CELL COUNT (BEAKER) (test tbng=594) 10.8 K/ L 3.5-10.5 RED BLOOD CELL COUNT (BEAKER) (test enab=604) 3.25 M/ L 3.93-5.22 HEMOGLOBIN (BEAKER) (test rspd=932) 7.9 GM/DL 11.2-15.7 HEMATOCRIT (BEAKER) (test qony=946) 26.6 % 34.1-44.9 MEAN CORPUSCULAR VOLUME (BEAKER) (test bvjw=311) 81.8 fL 79.4-94.8 MEAN CORPUSCULAR HEMOGLOBIN (BEAKER) (test xpvz=463) 24.3 pg 25.6-32.2 MEAN CORPUSCULAR HEMOGLOBIN CONC (BEAKER) (test vzwb=342) 29.7 GM/DL 32.2-35.5 RED CELL DISTRIBUTION WIDTH (BEAKER) (test tlqg=899) 20.2 % 11.7-14.4 PLATELET COUNT (BEAKER) (test apoq=510) 288 K/CU MM 150-450 MEAN PLATELET VOLUME (BEAKER) (test mhkw=007) 10.0 fL 9.4-12.3 NUCLEATED RED BLOOD CELLS (BEAKER) (test iwnq=126) 1 /100 WBC 0-0 (CELLAVISION MANUAL DIFF)2018-02-03 11:01:00* Test Item Value Reference Range Comments NEUTROPHILS - REL (CELLAVISION)(BEAKER) (test jczz=2448) 57 % LYMPHOCYTES - REL (CELLAVISION)(BEAKER) (test nepe=3078) 9 % MONOCYTES - REL (CELLAVISION)(BEAKER) (test kknx=3539) 11 % EOSINOPHILS - REL (CELLAVISION)(BEAKER) (test bybr=2970) 2 % METAMYELOCYTES - REL (CELLAVISION)(BEAKER) (test fnzp=4617) 6 % 0-0 MYELOCYTES - REL (CELLAVISION)(BEAKER) (test rcwo=3583) 1 % 0-0 BANDS - REL (CELLAVISION)(BEAKER) (test meih=1064) 14 % 0-10 NEUTROPHILS - ABS (CELLAVISION)(BEAKER) (test edfw=2496) 6.16 K/ul 1.56-6.13 LYMPHOCYTES - ABS (CELLAVISION)(BEAKER) (test wgyv=8857) 0.97 K/ul 1.18-3.74 MONOCYTES - ABS (CELLAVISION)(BEAKER) (test xcaq=2821) 1.19 K/uL 0.24-0.36 EOSINOPHILS - ABS (CELLAVISION)(BEAKER) (test ivse=7517) 0.22 K/uL 0.04-0.36 METAMYELOCYTES - ABS (CELLAVISION)(BEAKER) (test ykmr=1806) 0.65 K/uL 0.00-0.00 MYELOCYTES-ABS (CELLAVISION)(BEAKER) (test qusm=5088) 0.11 K/uL 0.00-0.00 BANDS - ABS (CELLAVISION)(BEAKER) (test epxu=2289) 1.51 K/uL 0.00-0.80 TOTAL COUNTED (BEAKER) (test xazb=9970) 100 WBC MORPHOLOGY (BEAKER) (test ykpk=163) Normal GIANT PLATELETS (BEAKER) (test lyde=697) Present LARGE PLT(BEAKER) (test emnq=2918) Present POLYCHROMATOPHILLIC RBCS(BEAKER) (test nort=293) 2+ moderate HYPOCHROMIA (BEAKER) (test jjdb=097) 1+ few ANISOCYTOSIS (BEAKER) (test rows=017) 2+ moderate MICROCYTES (BEAKER) (test wsxr=513) 1+ few MACROCYTES (BEAKER) (test qlzh=839) 2+ moderate POIKILOCYTES (BEAKER) (test ezuc=356) 2+ moderate SCHISTOCYTES (BEAKER) (test pqep=278) 2+ moderate ELLIPTOCYTES (BEAKER) (test wuby=490) 2+ moderate OVALOCYTES (BEAKER) (test einr=444) 1+ few TEAR DROP CELLS (BEAKER) (test oukh=506) 1+ few ACANTHOCYTES (BEAKER) (test kxce=509) 2+ moderate BASOPHILIC STIPPLING (BEAKER) (test qfib=342) Present ARTIFACT (CELLAVISION)(BEAKER) (test saae=2632) Present PLATELET CONCENTRATION (CELLAVISION)(BEAKER) (test rjrf=7065) Adequate Received comment: User comments: Slide comments: GI PATHOGEN PROFILE BY PCR 2018-02-03 10:20:00* Test Item Value Reference Range Comments CAMPYLOBACTER (PCR) (test lsfk=[id number]) Not detected Not detected, Inconclusive CLOSTRIDIUM DIFFICILE (PCR) (test ypdo=8384831) Not detected, Inconclusive PLEASE CHECK CDT GDH RESULT. PLESIOMONAS SHIGELLOIDES (PCR) (test razz=4627019) Not detected Not detected, Inconclusive SALMONELLA (PCR) (test hhew=9487416) Not detected Not detected, Inconclusive YERSINIA ENTEROCOLITICA (PCR) (test arxg=1428625) Not detected Not detected, Inconclusive VIBRIO CHOLERAE (PCR) (test wdxa=5282217) Not detected Not detected, Inconclusive ENTEROAGGREGATIVE E. COLI (EAEC) BY PCR (test qyyr=0180296) Not detected Not detected, Inconclusive ENTEROPATHOGENIC E. COLI (EPEC) BY PCR (test fjxj=4935068) Not detected Not detected, Inconclusive ENTEROTOXIGENIC E. COLI (ETEC) LT/ST BY PCR (test kfep=1236582) Not detected Not detected, Inconclusive SHIGA-LIKE TOXIN-PRODUCING E. COLI (STEC) STX1/STX2 (test wkzq=9759518) Not detected Not detected, Inconclusive E. COLI O157 (PCR) (test usow=0150672) Not detected Not detected, Inconclusive SHIGELLA/ENTEROINVASIVE E. COLI (EIEC) BY PCR (test rrim=7447609) Not detected Not detected, Inconclusive CRYPTOSPORIDIUM (PCR) (test wria=8132937) Not detected Not detected, Inconclusive CYCLOSPORA CAYETANENSIS (PCR) (test pwul=5165944) Not detected Not detected, Inconclusive ENTAMOEBA HISTOLYTICA (PCR) (test eqeb=8263326) Not detected Not detected, Inconclusive GIARDIA LAMBLIA (PCR) (test lpfd=8357294) Not detected Not detected, Inconclusive ADENOVIRUS F 40/41 (PCR) (test ozrq=3459990) Not detected Not detected, Inconclusive ASTROVIRUS (PCR) (test xhxv=6848730) Not detected Not detected, Inconclusive NOROVIRUS GI/GII (PCR) (test uraz=8725542) Not detected Not detected, Inconclusive ROTAVIRUS A (PCR) (test sjwi=0784063) Not detected Not detected, Inconclusive SAPOVIRUS (I, II, IV, V) BY PCR (test meki=1310116) Not detected Not detected, Inconclusive CALCIUM, [id number] 05:36:00* Test Item Value Reference Range Comments CALCIUM IONIZED (BEAKER) (test voft=963) 1.10 mmol/L 1.12-1.27 PH, BLOOD (BEAKER) (test soiq=5450) 7.35 [id number] 05:31:00* Test Item Value Reference Range Comments PHOSPHORUS (BEAKER) (test gsga=821) 2.9 mg/dL 2.3-4.7 [id number] 05:31:00* Test Item Value Reference Range Comments MAGNESIUM (BEAKER) (test bxzd=328) 1.8 mg/dL 1.6-2.6 COMPREHENSIVE METABOLIC [id number] 05:31:00* Test Item Value Reference Range Comments TOTAL PROTEIN (BEAKER) (test vojy=370) 6.6 gm/dL 6.0-8.3 ALBUMIN (BEAKER) (test dwks=9880) 3.6 g/dL 3.5-5.0 ALKALINE PHOSPHATASE (BEAKER) (test oezw=584) 164 U/L 40-150 BILIRUBIN TOTAL (BEAKER) (test sidn=172) 0.2 mg/dL 0.2-1.2 SODIUM (BEAKER) (test sehw=646) 138 meq/L 136-145 POTASSIUM (BEAKER) (test zkbc=650) 3.5 meq/L 3.5-5.1 CHLORIDE (BEAKER) (test fjxk=225) 107 meq/L 98-107 CO2 (BEAKER) (test hycx=127) 21 meq/L 22-29 BLOOD UREA NITROGEN (BEAKER) (test clxw=242) 7 mg/dL 7-21 CREATININE (BEAKER) (test unzb=329) 0.68 mg/dL 0.57-1.25 GLUCOSE RANDOM (BEAKER) (test rqsw=358) 133 mg/dL 70-105 CALCIUM (BEAKER) (test qerd=200) 9.0 mg/dL 8.4-10.2 AST (SGOT) (BEAKER) (test hynm=251) 48 U/L 5-34 ALT (SGPT) (BEAKER) (test srjo=194) 37 U/L 6-55 EGFR (BEAKER) (test zlrt=1971) 97 mL/min/1.73 sq m ESTIMATED GFR IS NOT ACCURATE CREATININE CLEARANCE IN PREDICTING GLOMERULAR FILTRATION RATE. ESTIMATED GFR IS NOT APPLICABLE FOR DIALYSIS PATIENTS. POCT-GLUCOSE [id number] 10:24:00* Test Item Value Reference Range Comments POC-GLUCOSE METER (BEAKER) (test chmy=1879) 101 mg/dL 70-110 TESTED AT [facility] [address] [facility] [address] CBC W/PLT COUNT & AUTO [id number] 09:33:00* Test Item Value Reference Range Comments WHITE BLOOD CELL COUNT (BEAKER) (test irml=682) 30.5 K/ L 3.5-10.5 RED BLOOD CELL COUNT (BEAKER) (test hzgv=186) 2.98 M/ L 3.93-5.22 HEMOGLOBIN (BEAKER) (test tslj=710) 7.5 GM/DL 11.2-15.7 HEMATOCRIT (BEAKER) (test wdky=340) 25.5 % 34.1-44.9 MEAN CORPUSCULAR VOLUME (BEAKER) (test jbwh=612) 85.6 fL 79.4-94.8 MEAN CORPUSCULAR HEMOGLOBIN (BEAKER) (test lnkc=288) 25.2 pg 25.6-32.2 MEAN CORPUSCULAR HEMOGLOBIN CONC (BEAKER) (test bvyz=643) 29.4 GM/DL 32.2-35.5 RED CELL DISTRIBUTION WIDTH (BEAKER) (test ltso=878) 20.7 % 11.7-14.4 PLATELET COUNT (BEAKER) (test subl=830) 317 K/CU MM 150-450 MEAN PLATELET VOLUME (BEAKER) (test sisx=322) 10.6 fL 9.4-12.3 NUCLEATED RED BLOOD CELLS (BEAKER) (test adiy=753) 1 /100 WBC 0-0 (MANUAL DIFFERENTIAL)2018-02-02 09:33:00* Test Item Value Reference Range Comments NEUTROPHILS - REL (DIFF) (BEAKER) (test dbuw=1634) 59 % LYMPHOCYTES - REL (DIFF) (BEAKER) (test yhnp=1515) 12 % MONOCYTES - REL (DIFF) (BEAKER) (test eupn=5546) 8 % METAMYELOCYTES-REL (DIFF) (BEAKER) (test yfbg=001) 1 % 0-0 MYELOCYTES-REL (DIFF) (BEAKER) (test yyqm=4967) 2 % 0-0 BANDS - REL (DIFF) (BEAKER) (test jmtb=5986) 18 % 0-10 NEUTROPHILS - ABS (DIFF) (BEAKER) (test nlfr=8884) 18.00 K/ L 1.80-8.00 LYMPHOCYTES - ABS (DIFF) (BEAKER) (test rcub=6891) 3.66 K/ L 1.48-4.50 MONOCYTES - ABS (DIFF) (BEAKER) (test bkqk=3695) 2.44 K/ L 0.00-1.30 METAMYELOCTYES - ABS (DIFF) (BEAKER) (test lrmp=258) 0.31 K/ L 0.00-0.00 BANDS-ABS (DIFF) (BEAKER) (test ojbm=3364) 5.5 K/ L 0.0-0.8 MYELOCYTES-ABS (DIFF) (BEAKER) (test beug=1516) 0.61 K/ L 0.00-0.00 TOTAL COUNTED (BEAKER) (test onzu=8772) 100 BANDS + SEGMENTED NEUTROPHILS (BEAKER) (test esau=9662) 23.49 MANUAL NRBC PER 100 CELLS (BEAKER) (test fcxz=9753) 1 /100 WBC 0-0 WBC MORPHOLOGY (BEAKER) (test qrih=499) Normal PLT MORPHOLOGY (BEAKER) (test zeyl=142) Normal SCHISTOCYTES (BEAKER) (test vnwp=591) 1+ few ANISOCYTOSIS (BEAKER) (test eizn=828) 2+ moderate OVALOCYTES (BEAKER) (test qqag=234) 2+ moderate POIKILOCYTES (BEAKER) (test fnnk=542) 1+ few TEAR DROP CELLS (BEAKER) (test ziwt=638) 1+ few C. DIFFICILE GDH [id number] 09:19:00* Test Item Value Reference Range Comments CDT TOXIN (test tybx=[id number]) Negative Negative CDT GDH ANTIGEN (test yhwi=[id number]) Negative Negative No indication of Clostridium difficile infection and no colonization. Discontinue enteric isolation and therapy. Testing performed by Alere Rapid Cassette Assay. For GDH, published sensitivity of the assay is 98.7% compared to cytotoxicity testing. For Toxin AB, publishe d sensitivity is 87.8% and specificity 99.4% compared to cytotoxicity testing.Ve rification of kit performance was done by the [facility] Microbiology Lab prior to cl inical use.BASIC METABOLIC [id number] 08:25:00* Test Item Value Reference Range Comments SODIUM (BEAKER) (test hdaa=212) 145 meq/L 136-145 POTASSIUM (BEAKER) (test ucaw=105) 3.3 meq/L 3.5-5.1 CHLORIDE (BEAKER) (test hgts=394) 106 meq/L 98-107 CO2 (BEAKER) (test hfnr=518) 24 meq/L 22-29 BLOOD UREA NITROGEN (BEAKER) (test jomn=803) 6 mg/dL 7-21 CREATININE (BEAKER) (test gklw=819) 0.68 mg/dL 0.57-1.25 GLUCOSE RANDOM (BEAKER) (test urpb=122) 38 mg/dL 70-105 CALCIUM (BEAKER) (test msqk=390) 8.8 mg/dL 8.4-10.2 EGFR (BEAKER) (test maph=5364) 97 mL/min/1.73 sq m ESTIMATED GFR IS NOT ACCURATE CREATININE CLEARANCE IN PREDICTING GLOMERULAR FILTRATION RATE. ESTIMATED GFR IS NOT APPLICABLE FOR DIALYSIS PATIENTS. BLOOD [id number] 13:13:00* Test Item Value Reference Range Comments CULTURE (BEAKER) (test ixuc=9629) From Aerobic And Anaerobic Bottles Coagulase negative Staphylococcus GRAM STAIN RESULT (BEAKER) (test ebhe=5512) From aerobic and anaerobic bottles: gram positive cocci in clusters Coagulase Negative Staphylococcus Species (CoNS) DETECTED, Methicillin Susceptib le First line therapy: cefazolin, nafcillin (nafcillin preferred for [place] infection) Coagulase Negative Staphylococcus (CoNS) DETECTEDmecA NO T DETECTEDOther organisms and resistance markers not contained in this PCR panel cannot be excluded and follow-up of traditional culture results is required. Th is sample was tested at the [facility] Clinical Microbiology Laboratory using the [employer] FilmArray Blood Culture ID Panel. This test is FDA cleared for in vitro christi gnostic use and has been verified and approved by the [facility] Clinical Microbiolog y laboratory for clinical use. Reference Range: Not DetectedBLOOD CULTURE 2018-01-29 00:00:00* Test Item Value Reference Range Comments CULTURE (BEAKER) (test dvlv=0654) No growth in 5 days BASIC METABOLIC [id number] 06:28:00* Test Item Value Reference Range Comments SODIUM (BEAKER) (test giey=418) 139 meq/L 136-145 POTASSIUM (BEAKER) (test elnw=807) 3.7 meq/L 3.5-5.1 CHLORIDE (BEAKER) (test cgvo=924) 107 meq/L 98-107 CO2 (BEAKER) (test yhlj=426) 22 meq/L 22-29 BLOOD UREA NITROGEN (BEAKER) (test fxjc=615) 8 mg/dL 7-21 CREATININE (BEAKER) (test dggv=986) 0.74 mg/dL 0.57-1.25 GLUCOSE RANDOM (BEAKER) (test iwds=994) 119 mg/dL 70-105 CALCIUM (BEAKER) (test phsd=834) 9.4 mg/dL 8.4-10.2 EGFR (BEAKER) (test njkd=7545) 88 mL/min/1.73 sq m ESTIMATED GFR IS NOT ACCURATE CREATININE CLEARANCE IN PREDICTING GLOMERULAR FILTRATION RATE. ESTIMATED GFR IS NOT APPLICABLE FOR DIALYSIS PATIENTS. CBC (HEMOGRAM ONLY)2018-01-28 05:52:00* Test Item Value Reference Range Comments WHITE BLOOD CELL COUNT (BEAKER) (test eavh=054) 15.6 K/ L 3.5-10.5 RED BLOOD CELL COUNT (BEAKER) (test fwha=165) 3.09 M/ L 3.93-5.22 HEMOGLOBIN (BEAKER) (test gavf=147) 7.7 GM/DL 11.2-15.7 HEMATOCRIT (BEAKER) (test xfow=726) 24.8 % 34.1-44.9 MEAN CORPUSCULAR VOLUME (BEAKER) (test qikt=466) 80.3 fL 79.4-94.8 MEAN CORPUSCULAR HEMOGLOBIN (BEAKER) (test dbcw=176) 24.9 pg 25.6-32.2 MEAN CORPUSCULAR HEMOGLOBIN CONC (BEAKER) (test ypwq=565) 31.0 GM/DL 32.2-35.5 RED CELL DISTRIBUTION WIDTH (BEAKER) (test aeta=251) 19.6 % 11.7-14.4 PLATELET COUNT (BEAKER) (test spvh=182) 246 K/CU MM 150-450 MEAN PLATELET VOLUME (BEAKER) (test ahuw=939) 10.3 fL 9.4-12.3 NUCLEATED RED BLOOD CELLS (BEAKER) (test kqjl=610) 0 /100 WBC 0-0 STOOL CULTURE + SHIGA [id number] 12:31:00* Test Item Value Reference Range Comments CULTURE (BEAKER) (test cjcb=7106) No Salmonella, Shigella or Campylobacter isolated Unable to test for Shiga Toxin 1 due to insufficient growth of specimen.Unable t o test for Shiga Toxin 2 due to insufficient growth of specimen.Resubmit [facility] if clinically indicated.BASIC METABOLIC [id number] 08:58:00* Test Item Value Reference Range Comments SODIUM (BEAKER) (test wanm=817) 139 meq/L 136-145 POTASSIUM (BEAKER) (test sari=768) 3.4 meq/L 3.5-5.1 CHLORIDE (BEAKER) (test txpg=433) 106 meq/L 98-107 CO2 (BEAKER) (test tgnr=920) 23 meq/L 22-29 BLOOD UREA NITROGEN (BEAKER) (test ldpi=954) 6 mg/dL 7-21 CREATININE (BEAKER) (test zqws=465) 0.70 mg/dL 0.57-1.25 GLUCOSE RANDOM (BEAKER) (test xybk=304) 104 mg/dL 70-105 CALCIUM (BEAKER) (test mxzm=712) 9.1 mg/dL 8.4-10.2 EGFR (BEAKER) (test ojvj=3372) 94 mL/min/1.73 sq m ESTIMATED GFR IS NOT ACCURATE CREATININE CLEARANCE IN PREDICTING GLOMERULAR FILTRATION RATE. ESTIMATED GFR IS NOT APPLICABLE FOR DIALYSIS PATIENTS. CBC (HEMOGRAM ONLY)2018-01-27 07:07:00* Test Item Value Reference Range Comments WHITE BLOOD CELL COUNT (BEAKER) (test nmvr=878) 16.8 K/ L 3.5-10.5 RED BLOOD CELL COUNT (BEAKER) (test gffq=972) 3.05 M/ L 3.93-5.22 HEMOGLOBIN (BEAKER) (test ehhq=765) 7.6 GM/DL 11.2-15.7 HEMATOCRIT (BEAKER) (test hotf=984) 24.3 % 34.1-44.9 MEAN CORPUSCULAR VOLUME (BEAKER) (test gvnf=462) 79.7 fL 79.4-94.8 MEAN CORPUSCULAR HEMOGLOBIN (BEAKER) (test zggq=823) 24.9 pg 25.6-32.2 MEAN CORPUSCULAR HEMOGLOBIN CONC (BEAKER) (test xrpl=122) 31.3 GM/DL 32.2-35.5 RED CELL DISTRIBUTION WIDTH (BEAKER) (test mgzm=711) 19.0 % 11.7-14.4 PLATELET COUNT (BEAKER) (test pxmj=780) 228 K/CU MM 150-450 MEAN PLATELET VOLUME (BEAKER) (test yzck=015) 10.2 fL 9.4-12.3 NUCLEATED RED BLOOD CELLS (BEAKER) (test snbe=996) 0 /100 WBC 0-0 URINE [id number] 13:30:00* Test Item Value Reference Range Comments CULTURE (BEAKER) (test nedg=6436) ESCHERICHIA COLI >100,000 col/mL Escherichia coliESBL Positive Amikacin (test code=1) Ampicillin + Sulbactam (test code=6) Aztreonam (test code=32) Cefepime (test code=51) Cefoxitin (test code=68) Ceftazidime (test code=27) Ceftriaxone (test code=52) Ertapenem (test code=38) Gentamicin (test code=18) Levofloxacin (test code=22) Meropenem (test code=34) Nitrofurantoin (test code=23) Piperacillin + Tazobactam (test code=29) Tetracycline (test code=2) Tobramycin (test code=25) Trimethoprim + Sulfamethoxazole (test code=47) BASIC METABOLIC [id number] 06:56:00* Test Item Value Reference Range Comments SODIUM (BEAKER) (test oixe=219) 137 meq/L 136-145 POTASSIUM (BEAKER) (test lcfa=598) 3.6 meq/L 3.5-5.1 CHLORIDE (BEAKER) (test ammg=205) 107 meq/L 98-107 CO2 (BEAKER) (test qjnb=385) 20 meq/L 22-29 BLOOD UREA NITROGEN (BEAKER) (test tydu=717) 7 mg/dL 7-21 CREATININE (BEAKER) (test qfpy=488) 0.71 mg/dL 0.57-1.25 GLUCOSE RANDOM (BEAKER) (test edjj=529) 94 mg/dL 70-105 CALCIUM (BEAKER) (test inkk=152) 9.4 mg/dL 8.4-10.2 EGFR (BEAKER) (test wbnr=6869) 92 mL/min/1.73 sq m ESTIMATED GFR IS NOT ACCURATE CREATININE CLEARANCE IN PREDICTING GLOMERULAR FILTRATION RATE. ESTIMATED GFR IS NOT APPLICABLE FOR DIALYSIS PATIENTS. CBC (HEMOGRAM ONLY)2018-01-26 06:20:00* Test Item Value Reference Range Comments WHITE BLOOD CELL COUNT (BEAKER) (test sxgu=925) 16.4 K/ L 3.5-10.5 RED BLOOD CELL COUNT (BEAKER) (test bcph=149) 3.08 M/ L 3.93-5.22 HEMOGLOBIN (BEAKER) (test aqvq=099) 7.6 GM/DL 11.2-15.7 HEMATOCRIT (BEAKER) (test dtxt=945) 24.5 % 34.1-44.9 MEAN CORPUSCULAR VOLUME (BEAKER) (test yula=491) 79.5 fL 79.4-94.8 MEAN CORPUSCULAR HEMOGLOBIN (BEAKER) (test dzng=826) 24.7 pg 25.6-32.2 MEAN CORPUSCULAR HEMOGLOBIN CONC (BEAKER) (test sfib=332) 31.0 GM/DL 32.2-35.5 RED CELL DISTRIBUTION WIDTH (BEAKER) (test xyft=317) 18.7 % 11.7-14.4 PLATELET COUNT (BEAKER) (test rjdo=458) 193 K/CU MM 150-450 MEAN PLATELET VOLUME (BEAKER) (test wvwx=390) 10.3 fL 9.4-12.3 NUCLEATED RED BLOOD CELLS (BEAKER) (test wwwq=896) 0 /100 WBC 0-0 STOOL PATH [id number] 15:51:00* Test Item Value Reference Range Comments PATHOGEN EXAM CHARGED (BEAKER) (test ohvt=1829) Done BASIC METABOLIC [id number] 08:00:00* Test Item Value Reference Range Comments SODIUM (BEAKER) (test hxbt=564) 137 meq/L 136-145 POTASSIUM (BEAKER) (test nbgu=146) 3.6 meq/L 3.5-5.1 CHLORIDE (BEAKER) (test vvvg=943) 107 meq/L 98-107 CO2 (BEAKER) (test qddw=320) 20 meq/L 22-29 BLOOD UREA NITROGEN (BEAKER) (test mddf=457) 9 mg/dL 7-21 CREATININE (BEAKER) (test jazf=876) 0.71 mg/dL 0.57-1.25 GLUCOSE RANDOM (BEAKER) (test thoc=380) 114 mg/dL 70-105 CALCIUM (BEAKER) (test zjav=621) 9.0 mg/dL 8.4-10.2 EGFR (BEAKER) (test mkvu=0700) 92 mL/min/1.73 sq m ESTIMATED GFR IS NOT ACCURATE CREATININE CLEARANCE IN PREDICTING GLOMERULAR FILTRATION RATE. ESTIMATED GFR IS NOT APPLICABLE FOR DIALYSIS PATIENTS. CBC (HEMOGRAM ONLY)2018-01-25 06:05:00* Test Item Value Reference Range Comments WHITE BLOOD CELL COUNT (BEAKER) (test mwpk=836) 3.7 K/ L 3.5-10.5 RED BLOOD CELL COUNT (BEAKER) (test xgiq=336) 3.19 M/ L 3.93-5.22 HEMOGLOBIN (BEAKER) (test xkfm=514) 7.7 GM/DL 11.2-15.7 HEMATOCRIT (BEAKER) (test lmov=904) 25.1 % 34.1-44.9 MEAN CORPUSCULAR VOLUME (BEAKER) (test gipu=792) 78.7 fL 79.4-94.8 MEAN CORPUSCULAR HEMOGLOBIN (BEAKER) (test cpkq=705) 24.1 pg 25.6-32.2 MEAN CORPUSCULAR HEMOGLOBIN CONC (BEAKER) (test zfcs=805) 30.7 GM/DL 32.2-35.5 RED CELL DISTRIBUTION WIDTH (BEAKER) (test zwvh=184) 18.5 % 11.7-14.4 PLATELET COUNT (BEAKER) (test aoel=888) 182 K/CU MM 150-450 MEAN PLATELET VOLUME (BEAKER) (test danw=930) 11.4 fL 9.4-12.3 NUCLEATED RED BLOOD CELLS (BEAKER) (test zzlk=692) 0 /100 WBC 0-0 C. DIFFICILE GDH [id number] 10:45:00* Test Item Value Reference Range Comments CDT TOXIN (test mzws=[id number]) Negative Negative CDT GDH ANTIGEN (test whzm=[id number]) Positive Negative C. difficile present but toxin not detected. Indicates colonization with non-toxigenic strain or level of toxin below detectable levels. No need for enteric isolation. Treatment is rarely needed (only when strong clinical suspicion for Clostridium difficile infection) Testing performed by Ale[employer] Rapid Cassette Assay. For GDH, published sensitivity of the assay is 98.7% compared to cytotoxicity testing. For Toxin AB, publishe d sensitivity is 87.8% and specificity 99.4% compared to cytotoxicity testing.Ve rification of kit performance was done by the [facility] Microbiology Lab prior to cl inical use.BASIC METABOLIC [id number] 06:54:00* Test Item Value Reference Range Comments SODIUM (BEAKER) (test uxqh=207) 135 meq/L 136-145 POTASSIUM (BEAKER) (test gwkd=851) 3.3 meq/L 3.5-5.1 CHLORIDE (BEAKER) (test zecm=864) 106 meq/L 98-107 CO2 (BEAKER) (test mnwm=656) 21 meq/L 22-29 BLOOD UREA NITROGEN (BEAKER) (test ezxy=539) 10 mg/dL 7-21 CREATININE (BEAKER) (test nfra=808) 0.71 mg/dL 0.57-1.25 GLUCOSE RANDOM (BEAKER) (test mwwr=766) 117 mg/dL 70-105 CALCIUM (BEAKER) (test fyxi=770) 8.9 mg/dL 8.4-10.2 EGFR (BEAKER) (test azkl=0526) 92 mL/min/1.73 sq m ESTIMATED GFR IS NOT ACCURATE CREATININE CLEARANCE IN PREDICTING GLOMERULAR FILTRATION RATE. ESTIMATED GFR IS NOT APPLICABLE FOR DIALYSIS PATIENTS. CBC W/PLT COUNT & AUTO [id number] 06:36:00* Test Item Value Reference Range Comments WHITE BLOOD CELL COUNT (BEAKER) (test rtet=918) 3.6 K/ L 3.5-10.5 RED BLOOD CELL COUNT (BEAKER) (test uogq=537) 3.25 M/ L 3.93-5.22 HEMOGLOBIN (BEAKER) (test xuld=840) 7.9 GM/DL 11.2-15.7 HEMATOCRIT (BEAKER) (test arch=524) 25.2 % 34.1-44.9 MEAN CORPUSCULAR VOLUME (BEAKER) (test moar=223) 77.5 fL 79.4-94.8 MEAN CORPUSCULAR HEMOGLOBIN (BEAKER) (test uudz=341) 24.3 pg 25.6-32.2 MEAN CORPUSCULAR HEMOGLOBIN CONC (BEAKER) (test hveg=612) 31.3 GM/DL 32.2-35.5 RED CELL DISTRIBUTION WIDTH (BEAKER) (test eywc=880) 18.5 % 11.7-14.4 PLATELET COUNT (BEAKER) (test mguh=196) 176 K/CU MM 150-450 MEAN PLATELET VOLUME (BEAKER) (test qekt=300) 10.6 fL 9.4-12.3 NUCLEATED RED BLOOD CELLS (BEAKER) (test qece=931) 0 /100 WBC 0-0 NEUTROPHILS RELATIVE PERCENT (BEAKER) (test qsgy=849) 48 % LYMPHOCYTES RELATIVE PERCENT (BEAKER) (test rkso=564) 41 % MONOCYTES RELATIVE PERCENT (BEAKER) (test mlli=136) 6 % EOSINOPHILS RELATIVE PERCENT (BEAKER) (test dkgi=421) 4 % BASOPHILS RELATIVE PERCENT (BEAKER) (test tfce=574) 0 % NEUTROPHILS ABSOLUTE COUNT (BEAKER) (test cvej=365) 1.75 K/ L 1.56-6.13 LYMPHOCYTES ABSOLUTE COUNT (BEAKER) (test wdjs=385) 1.50 K/ L 1.18-3.74 MONOCYTES ABSOLUTE COUNT (BEAKER) (test qcfw=357) 0.21 K/ L 0.24-0.36 EOSINOPHILS ABSOLUTE COUNT (BEAKER) (test faip=484) 0.13 K/ L 0.04-0.36 BASOPHILS ABSOLUTE COUNT (BEAKER) (test igdx=603) 0.01 K/ L 0.01-0.08 IMMATURE GRANULOCYTES-RELATIVE PERCENT (BEAKER) (test bdjj=9088) 1 % 0-1 CT, [id number] 22:40:00Reason for exam:->ABDOMINAL PAINReason for exam:-> NAUSEAReason for exam:->EMESISIs the patient ?->NoWhat is the patient's sedation requirement?->No SedationFINAL REPORT CT, ABDOMEN \\T\\ PELVIS, WITHOUT IV CONTRAST INDICATION: Abdominal pain, unspecifiedABDOMINAL PAINNAUSEAEMESIS COMPARISON: 2017 TECHNIQUE: CT of the abdomen and pelvis WITHOUT intravenous contrast. DOSE REDUCTION: Dose modulation, iterative reconstruction, and/or weight-based adjustment of the mA/kV was utilized to reduce the radiation dose to as low as reasonably achievable. FINDINGS:NOTE: Absence of intravenous contrast decreases sensitivity for focal lesions and vascular pathology. Lower thorax: Unremarkab le Liver: No parenchymal abnormality.Gallbladder and biliary tree: Prior cholecy stectomy. No ductal dilation.Pancreas: No acute findings.Spleen: No acute findin gsAdrenal Glands: No acute findings.Kidneys and ureters: Uptake, nonobstructing renal calculi bilaterally.Bladder and reproductive organs: Unremarkable urinary bladder. Prior hysterectomy. Stomach and Duodenum: No significant findings.Small and large intestine: Normal calibers.Appendix: The appendix is not identified. No pericecal inflammatory changes are present. Major vascular structures: Normal aortic caliber.Peritoneum and retroperitoneum: No free air, fluid or adenopathy . Skeleton: No acute bony abnormality.Additional findings: None. IMPRESSION : Limited noncontrast evaluation revealing no acute abnormality in the abdomen o r pelvis to explain abdominal pain. Signed: JR Pickard Robert MDReport Ve rified Date/Time: 01/23/2018 22:40:25 Reading Location: [address] Reading Room ALYSIS WITH MICROSCOPIC IF [id number] 22:13:00* Test Item Value Reference Range Comments COLOR (BEAKER) (test kazv=658) Yellow CLARITY (BEAKER) (test cpqw=475) Hazy SPECIFIC GRAVITY UA (BEAKER) (test yklh=113) 1.012 1.001-1.035 PH UA (BEAKER) (test wmry=725) 7.0 5.0-8.0 PROTEIN UA (BEAKER) (test tccm=746) 20 mg/dL Negative GLUCOSE UA (BEAKER) (test gkpt=636) Negative Negative KETONES UA (BEAKER) (test gcac=520) Negative Negative BILIRUBIN UA (BEAKER) (test jqhs=923) Negative Negative BLOOD UA (BEAKER) (test wnro=526) Trace Negative NITRITE UA (BEAKER) (test zbzq=415) Positive Negative LEUKOCYTE ESTERASE UA (BEAKER) (test sdnz=537) Large Negative UROBILINOGEN UA (BEAKER) (test hbcz=064) 0.2 mg/dL 0.2-1.0 SOURCE(BEAKER) (test ijon=2820) URINALYSIS [id number] 22:13:00* Test Item Value Reference Range Comments RBC UA (BEAKER) (test gpme=145) 1 /HPF WBC UA (BEAKER) (test hwvy=657) 77 /HPF BACTERIA (BEAKER) (test tfwc=601) Occasional MUCUS (BEAKER) (test rlpe=2280) Many SQUAMOUS EPITHELIAL (BEAKER) (test dsef=597) 12 /HPF COMPREHENSIVE METABOLIC [id number] 22:03:00* Test Item Value Reference Range Comments TOTAL PROTEIN (BEAKER) (test voug=514) 8.2 gm/dL 6.0-8.3 ALBUMIN (BEAKER) (test simr=1804) 4.6 g/dL 3.5-5.0 ALKALINE PHOSPHATASE (BEAKER) (test mmrw=533) 169 U/L 40-150 BILIRUBIN TOTAL (BEAKER) (test lrog=594) 0.4 mg/dL 0.2-1.2 SODIUM (BEAKER) (test iagg=346) 136 meq/L 136-145 POTASSIUM (BEAKER) (test dxhs=707) 4.1 meq/L 3.5-5.1 CHLORIDE (BEAKER) (test qzuh=228) 104 meq/L 98-107 CO2 (BEAKER) (test jbxr=513) 21 meq/L 22-29 BLOOD UREA NITROGEN (BEAKER) (test epsl=975) 11 mg/dL 7-21 CREATININE (BEAKER) (test mpvg=295) 0.80 mg/dL 0.57-1.25 GLUCOSE RANDOM (BEAKER) (test kklu=317) 111 mg/dL 70-105 CALCIUM (BEAKER) (test bqtq=436) 10.2 mg/dL 8.4-10.2 AST (SGOT) (BEAKER) (test jvcl=416) 39 U/L 5-34 ALT (SGPT) (BEAKER) (test ouqk=152) 96 U/L 6-55 EGFR (BEAKER) (test nvsq=1116) 80 mL/min/1.73 sq m ESTIMATED GFR IS NOT ACCURATE CREATININE CLEARANCE IN PREDICTING GLOMERULAR FILTRATION RATE. ESTIMATED GFR IS NOT APPLICABLE FOR DIALYSIS PATIENTS. POCT-LACTIC ACID, [id number] 21:46:00* Test Item Value Reference Range Comments POC-LACTIC ACID, VENOUS (BEAKER) (test alwv=1099) 0.9 mmol/L 0.9-1.7 TESTED AT [facility] [address] [facility] [address] CBC W/PLT COUNT & AUTO [id number] 21:38:00* Test Item Value Reference Range Comments WHITE BLOOD CELL COUNT (BEAKER) (test ygpt=284) 3.7 K/ L 3.5-10.5 RED BLOOD CELL COUNT (BEAKER) (test udsa=144) 3.99 M/ L 3.93-5.22 HEMOGLOBIN (BEAKER) (test aqms=152) 9.8 GM/DL 11.2-15.7 HEMATOCRIT (BEAKER) (test xyyz=965) 31.1 % 34.1-44.9 MEAN CORPUSCULAR VOLUME (BEAKER) (test lkjv=321) 77.9 fL 79.4-94.8 MEAN CORPUSCULAR HEMOGLOBIN (BEAKER) (test xqek=971) 24.6 pg 25.6-32.2 MEAN CORPUSCULAR HEMOGLOBIN CONC (BEAKER) (test jjdc=139) 31.5 GM/DL 32.2-35.5 RED CELL DISTRIBUTION WIDTH (BEAKER) (test qfhk=103) 18.5 % 11.7-14.4 PLATELET COUNT (BEAKER) (test qmax=243) 208 K/CU MM 150-450 MEAN PLATELET VOLUME (BEAKER) (test ylkq=326) 9.5 fL 9.4-12.3 NUCLEATED RED BLOOD CELLS (BEAKER) (test hcer=585) 0 /100 WBC 0-0 NEUTROPHILS RELATIVE PERCENT (BEAKER) (test wygm=782) 60 % LYMPHOCYTES RELATIVE PERCENT (BEAKER) (test mujw=462) 33 % MONOCYTES RELATIVE PERCENT (BEAKER) (test yamj=050) 4 % EOSINOPHILS RELATIVE PERCENT (BEAKER) (test qqnf=602) 2 % BASOPHILS RELATIVE PERCENT (BEAKER) (test ynrf=847) 0 % NEUTROPHILS ABSOLUTE COUNT (BEAKER) (test hbqx=528) 2.19 K/ L 1.56-6.13 LYMPHOCYTES ABSOLUTE COUNT (BEAKER) (test gmwx=837) 1.22 K/ L 1.18-3.74 MONOCYTES ABSOLUTE COUNT (BEAKER) (test pkdc=807) 0.13 K/ L 0.24-0.36 EOSINOPHILS ABSOLUTE COUNT (BEAKER) (test dhki=168) 0.08 K/ L 0.04-0.36 BASOPHILS ABSOLUTE COUNT (BEAKER) (test tlyg=403) 0.01 K/ L 0.01-0.08 IMMATURE GRANULOCYTES-RELATIVE PERCENT (BEAKER) (test afnj=0659) 1 % 0-1 RAD, CHEST, 1 VIEW, NON [id number] 21:31:00Reason for exam:->ABDOMINAL PAINReason for exam:->NAUSEAReason for exam:->EMESISShould this be performed at the bedside?->YesFINAL REPORT RAD, CHEST, 1 VIEW, NON DEPT INDICATION: ABDOMINAL PAINNAUSEAEMESIS COMPARISON: Chest x-ray 2 months ago TECHNIQUE: Single frontal view of the chest. IMPRESSION:Stable MediPort.Cardiomediastinal silhouette within normal limits.No overt consolidative or congestive change.No acute osseous abnormality. Signed: Vikash Calvillo MDReport Verified Date/Time: 01/23/2018 21:31:16 Reading Location: [facility] C0[facility] Transitional Reading Room ABDOMEN/PELVIS [id number] 22:09:00 [place] [address] Patient Name: BELIA VIGIL MR #: [id number] : 1980 Age/Sex: 37/F Req #: [id number] Adm Physician: Ordered by: IMMANUEL RANKIN MD Report #: [id number] Location: R o/Bed: Procedure: CT/CT ABDOMEN/PELVIS WO Exam Date: Exam Time: REPORT STATUS: Signed EXAM: CT ABDOMEN AND PELVIS without IV CONTRAST INDICATION: Left lower qu adrant pain COMPARISON: CT of the abdomen and pelvis without IV contrast December 14, 2017 TECHNIQUE: The abdomen and pelvis were scanned using a multidetector helical scanner. Coronal and sagittal reformations were obtained. Routine prot ocol performed. IV Contrast: None Oral Contrast: Redicat CTDIvol has bee n reviewed. It is below the limits set by the Radiation Protocol Committee (RP C). FINDINGS: LOWER THORAX: No consolidations LIVER: No masses ASHER IARY: Cholecystectomy. No ductal dilation. SPLEEN: No masses PANCREAS: L imited evaluation without IV contrast. Atrophy of the body and tail compared t o the head. ADRENALS: No nodules RIGHT KIDNEY: There are two, 3 mm sto sha in the inferior pole of the right kidney, stable. No ureteral stones. No h ydronephrosis. LEFT KIDNEY: No nephroureterolithiasis or hydronephrosis. GI TRACT: No wall thickening or obstruction. Oval radiopaque device measuring 1.6 cm in the cecum. VESSELS: No abdominal aortic aneurysm. Several upper abdominal collateral vessels. PERITONEUM/RETROPERITONEUM: No free air or fluid. There are a few coarse calcifications in the left abdomen. One calc ification is associated with a 1.5 cm fatty mass, and is new from prior exam. LYMPH NODES: No lymphadenopathy REPRODUCTIVE ORGANS: The uterus is not visualized. No adnexal masses. BLADDER: Normal SOFT TISSUES: Normal BETI SHA: No suspicious bone lesions. IMPRESSION: 1. 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 This is not evaluated on this noncontrast exam. 2. Nonspecif ic coarse calcifications in the left abdomen, one is new and associated with a fatty mass, possibly from old omental infarcts. Recommend attention on follow -up exam. 3. Stable nonobstructing stones in the inferior pole of the right kidney. Signed by: Dr. Lamont Johnson M.D. on 01/12/2018 10:22 PM Dictated By: LAMONT JOHNSON MD 21 COPY TO: IMMANUEL MCKEON MD COMPREHENSIVE METABOLIC [id number] 12:48:00* Test Item Value Reference Range Comments TOTAL PROTEIN (BEAKER) (test ccqy=872) 6.5 gm/dL 6.0-8.3 ALBUMIN (BEAKER) (test gvlq=0655) 3.6 g/dL 3.5-5.0 ALKALINE PHOSPHATASE (BEAKER) (test kdum=909) 112 U/L 40-150 BILIRUBIN TOTAL (BEAKER) (test lcub=548) 0.1 mg/dL 0.2-1.2 SODIUM (BEAKER) (test vwyg=378) 140 meq/L 136-145 POTASSIUM (BEAKER) (test hfmb=868) 3.9 meq/L 3.5-5.1 CHLORIDE (BEAKER) (test jdkb=094) 110 meq/L 98-107 CO2 (BEAKER) (test rray=635) 25 meq/L 22-29 BLOOD UREA NITROGEN (BEAKER) (test gler=609) 7 mg/dL 7-21 CREATININE (BEAKER) (test omzs=149) 0.60 mg/dL 0.57-1.25 GLUCOSE RANDOM (BEAKER) (test vucb=322) 102 mg/dL 70-105 CALCIUM (BEAKER) (test mvvk=581) 8.9 mg/dL 8.4-10.2 AST (SGOT) (BEAKER) (test krfa=824) 26 U/L 5-34 ALT (SGPT) (BEAKER) (test jnuj=913) 38 U/L 6-55 EGFR (BEAKER) (test dahs=4672) 112 mL/min/1.73 sq m ESTIMATED GFR IS NOT ACCURATE CREATININE CLEARANCE IN PREDICTING GLOMERULAR FILTRATION RATE. ESTIMATED GFR IS NOT APPLICABLE FOR DIALYSIS PATIENTS. CBC W/PLT COUNT & AUTO [id number] 12:26:00* Test Item Value Reference Range Comments WHITE BLOOD CELL COUNT (BEAKER) (test tsxm=361) 4.7 K/ L 3.5-10.5 RED BLOOD CELL COUNT (BEAKER) (test mynj=947) 3.32 M/ L 3.93-5.22 HEMOGLOBIN (BEAKER) (test kqsv=653) 8.2 GM/DL 11.2-15.7 HEMATOCRIT (BEAKER) (test asub=281) 26.5 % 34.1-44.9 MEAN CORPUSCULAR VOLUME (BEAKER) (test bmrg=609) 79.8 fL 79.4-94.8 MEAN CORPUSCULAR HEMOGLOBIN (BEAKER) (test qblm=368) 24.7 pg 25.6-32.2 MEAN CORPUSCULAR HEMOGLOBIN CONC (BEAKER) (test efne=981) 30.9 GM/DL 32.2-35.5 RED CELL DISTRIBUTION WIDTH (BEAKER) (test xcyn=138) 19.1 % 11.7-14.4 PLATELET COUNT (BEAKER) (test hfxq=731) 264 K/CU MM 150-450 MEAN PLATELET VOLUME (BEAKER) (test fsib=143) 9.9 fL 9.4-12.3 NUCLEATED RED BLOOD CELLS (BEAKER) (test uerh=454) 0 /100 WBC 0-0 NEUTROPHILS RELATIVE PERCENT (BEAKER) (test wbxy=409) 43 % LYMPHOCYTES RELATIVE PERCENT (BEAKER) (test fssf=976) 34 % MONOCYTES RELATIVE PERCENT (BEAKER) (test evjj=374) 12 % EOSINOPHILS RELATIVE PERCENT (BEAKER) (test gwbq=239) 11 % BASOPHILS RELATIVE PERCENT (BEAKER) (test traq=162) 0 % NEUTROPHILS ABSOLUTE COUNT (BEAKER) (test jabm=599) 1.98 K/ L 1.56-6.13 LYMPHOCYTES ABSOLUTE COUNT (BEAKER) (test jguw=958) 1.58 K/ L 1.18-3.74 MONOCYTES ABSOLUTE COUNT (BEAKER) (test gejy=675) 0.54 K/ L 0.24-0.36 EOSINOPHILS ABSOLUTE COUNT (BEAKER) (test ixks=919) 0.53 K/ L 0.04-0.36 BASOPHILS ABSOLUTE COUNT (BEAKER) (test mwha=833) 0.01 K/ L 0.01-0.08 IMMATURE GRANULOCYTES-RELATIVE PERCENT (BEAKER) (test lkxv=2798) 0 % 0-1 AFB CULTURE + [id number] 12:58:00* Test Item Value Reference Range Comments CULTURE (BEAKER) (test blxp=0376) No acid-fast bacilli isolated in 42 days AFB SMEAR (BEAKER) (test jyoj=351) No acid fast bacilli seen AFB CULTURE + [id number] 12:58:00* Test Item Value Reference Range Comments CULTURE (BEAKER) (test vvtp=8001) No acid-fast bacilli isolated in 42 days AFB SMEAR (BEAKER) (test ijcx=948) No acid fast bacilli seen BASIC METABOLIC [id number] 07:18:00* Test Item Value Reference Range Comments SODIUM (BEAKER) (test ogiw=532) 136 meq/L 136-145 POTASSIUM (BEAKER) (test kpmg=852) 4.4 meq/L 3.5-5.1 CHLORIDE (BEAKER) (test qmkw=040) 100 meq/L 98-107 CO2 (BEAKER) (test aydx=929) 25 meq/L 22-29 BLOOD UREA NITROGEN (BEAKER) (test ghxg=034) 8 mg/dL 7-21 CREATININE (BEAKER) (test gidm=913) 0.74 mg/dL 0.57-1.25 GLUCOSE RANDOM (BEAKER) (test iirc=802) 142 mg/dL 70-105 CALCIUM (BEAKER) (test oqjr=611) 9.8 mg/dL 8.4-10.2 EGFR (BEAKER) (test falh=9625) 88 mL/min/1.73 sq m ESTIMATED GFR IS NOT ACCURATE CREATININE CLEARANCE IN PREDICTING GLOMERULAR FILTRATION RATE. ESTIMATED GFR IS NOT APPLICABLE FOR DIALYSIS PATIENTS. CBC W/PLT COUNT & AUTO [id number] 06:15:00* Test Item Value Reference Range Comments WHITE BLOOD CELL COUNT (BEAKER) (test qnoi=036) 6.5 K/ L 3.5-10.5 RED BLOOD CELL COUNT (BEAKER) (test keic=835) 3.50 M/ L 3.93-5.22 HEMOGLOBIN (BEAKER) (test mqof=129) 8.8 GM/DL 11.2-15.7 HEMATOCRIT (BEAKER) (test xxbi=576) 28.1 % 34.1-44.9 MEAN CORPUSCULAR VOLUME (BEAKER) (test qpft=812) 80.3 fL 79.4-94.8 MEAN CORPUSCULAR HEMOGLOBIN (BEAKER) (test tyur=393) 25.1 pg 25.6-32.2 MEAN CORPUSCULAR HEMOGLOBIN CONC (BEAKER) (test vgfj=500) 31.3 GM/DL 32.2-35.5 RED CELL DISTRIBUTION WIDTH (BEAKER) (test ebad=768) 19.3 % 11.7-14.4 PLATELET COUNT (BEAKER) (test alwn=944) 300 K/CU MM 150-450 MEAN PLATELET VOLUME (BEAKER) (test ahmx=395) 10.3 fL 9.4-12.3 NUCLEATED RED BLOOD CELLS (BEAKER) (test otjt=140) 0 /100 WBC 0-0 NEUTROPHILS RELATIVE PERCENT (BEAKER) (test lygk=464) 44 % LYMPHOCYTES RELATIVE PERCENT (BEAKER) (test rjua=100) 37 % MONOCYTES RELATIVE PERCENT (BEAKER) (test cgzh=511) 11 % EOSINOPHILS RELATIVE PERCENT (BEAKER) (test bqit=348) 7 % BASOPHILS RELATIVE PERCENT (BEAKER) (test gial=677) 0 % NEUTROPHILS ABSOLUTE COUNT (BEAKER) (test bzqa=253) 2.89 K/ L 1.56-6.13 LYMPHOCYTES ABSOLUTE COUNT (BEAKER) (test znnq=315) 2.41 K/ L 1.18-3.74 MONOCYTES ABSOLUTE COUNT (BEAKER) (test qjlw=658) 0.74 K/ L 0.24-0.36 EOSINOPHILS ABSOLUTE COUNT (BEAKER) (test ifsj=652) 0.43 K/ L 0.04-0.36 BASOPHILS ABSOLUTE COUNT (BEAKER) (test obcy=655) 0.02 K/ L 0.01-0.08 IMMATURE GRANULOCYTES-RELATIVE PERCENT (BEAKER) (test hifc=3958) 1 % 0-1 BASIC METABOLIC [id number] 10:04:00* Test Item Value Reference Range Comments SODIUM (BEAKER) (test jbpv=055) 138 meq/L 136-145 POTASSIUM (BEAKER) (test xmlt=715) 4.4 meq/L 3.5-5.1 CHLORIDE (BEAKER) (test ffzl=566) 102 meq/L 98-107 CO2 (BEAKER) (test dmrn=897) 29 meq/L 22-29 BLOOD UREA NITROGEN (BEAKER) (test ukqw=376) 10 mg/dL 7-21 CREATININE (BEAKER) (test gxto=738) 0.70 mg/dL 0.57-1.25 GLUCOSE RANDOM (BEAKER) (test awwz=870) 136 mg/dL 70-105 CALCIUM (BEAKER) (test orpg=684) 10.5 mg/dL 8.4-10.2 EGFR (BEAKER) (test facx=9421) 94 mL/min/1.73 sq m ESTIMATED GFR IS NOT ACCURATE CREATININE CLEARANCE IN PREDICTING GLOMERULAR FILTRATION RATE. ESTIMATED GFR IS NOT APPLICABLE FOR DIALYSIS PATIENTS. CBC W/PLT COUNT & AUTO [id number] 09:42:00* Test Item Value Reference Range Comments WHITE BLOOD CELL COUNT (BEAKER) (test lnry=383) 7.9 K/ L 3.5-10.5 RED BLOOD CELL COUNT (BEAKER) (test bqbc=477) 3.45 M/ L 3.93-5.22 HEMOGLOBIN (BEAKER) (test ogmz=221) 8.5 GM/DL 11.2-15.7 HEMATOCRIT (BEAKER) (test hoag=357) 27.4 % 34.1-44.9 MEAN CORPUSCULAR VOLUME (BEAKER) (test hfan=680) 79.4 fL 79.4-94.8 MEAN CORPUSCULAR HEMOGLOBIN (BEAKER) (test nixo=167) 24.6 pg 25.6-32.2 MEAN CORPUSCULAR HEMOGLOBIN CONC (BEAKER) (test xbed=058) 31.0 GM/DL 32.2-35.5 RED CELL DISTRIBUTION WIDTH (BEAKER) (test gpuk=323) 18.9 % 11.7-14.4 PLATELET COUNT (BEAKER) (test vuay=480) 237 K/CU MM 150-450 MEAN PLATELET VOLUME (BEAKER) (test zlud=751) 10.5 fL 9.4-12.3 NUCLEATED RED BLOOD CELLS (BEAKER) (test kodw=278) 0 /100 WBC 0-0 NEUTROPHILS RELATIVE PERCENT (BEAKER) (test kghw=458) 65 % LYMPHOCYTES RELATIVE PERCENT (BEAKER) (test uvab=991) 22 % MONOCYTES RELATIVE PERCENT (BEAKER) (test wyag=272) 8 % EOSINOPHILS RELATIVE PERCENT (BEAKER) (test twsz=333) 5 % BASOPHILS RELATIVE PERCENT (BEAKER) (test wgyw=364) 0 % NEUTROPHILS ABSOLUTE COUNT (BEAKER) (test somu=157) 5.09 K/ L 1.56-6.13 LYMPHOCYTES ABSOLUTE COUNT (BEAKER) (test pats=412) 1.73 K/ L 1.18-3.74 MONOCYTES ABSOLUTE COUNT (BEAKER) (test gezh=645) 0.63 K/ L 0.24-0.36 EOSINOPHILS ABSOLUTE COUNT (BEAKER) (test tyto=391) 0.38 K/ L 0.04-0.36 BASOPHILS ABSOLUTE COUNT (BEAKER) (test stwd=210) 0.03 K/ L 0.01-0.08 IMMATURE GRANULOCYTES-RELATIVE PERCENT (BEAKER) (test mxin=2377) 0 % 0-1 BLOOD [id number] 00:00:00* Test Item Value Reference Range Comments CULTURE (BEAKER) (test knsw=5119) No growth in 5 days BLOOD [id number] 00:00:00* Test Item Value Reference Range Comments CULTURE (BEAKER) (test gieb=3057) No growth in 5 days URINALYSIS W/ [id number] 15:13:00* Test Item Value Reference Range Comments COLOR (BEAKER) (test ntfu=092) Yellow CLARITY (BEAKER) (test ippq=628) Hazy SPECIFIC GRAVITY UA (BEAKER) (test zkpp=966) 1.010 1.001-1.035 PH UA (BEAKER) (test sntp=673) 7.0 5.0-8.0 PROTEIN UA (BEAKER) (test jfsw=853) 30 mg/dL Negative GLUCOSE UA (BEAKER) (test pnwe=336) Negative Negative KETONES UA (BEAKER) (test qrzn=380) Negative Negative BILIRUBIN UA (BEAKER) (test mqqn=747) Negative Negative BLOOD UA (BEAKER) (test auuq=132) Large Negative NITRITE UA (BEAKER) (test vpjt=183) Negative Negative LEUKOCYTE ESTERASE UA (BEAKER) (test enxl=435) Negative Negative UROBILINOGEN UA (BEAKER) (test uolk=358) 0.2 mg/dL 0.2-1.0 RBC UA (BEAKER) (test xmjx=604) 1 /HPF WBC UA (BEAKER) (test pneo=905) 1 /HPF BACTERIA (BEAKER) (test zoic=396) Few SQUAMOUS EPITHELIAL (BEAKER) (test sjht=198) 6 /HPF SOURCE(BEAKER) (test nczj=3647) Urine, Clean Catch BASIC METABOLIC [id number] 06:38:00* Test Item Value Reference Range Comments SODIUM (BEAKER) (test eebx=191) 137 meq/L 136-145 POTASSIUM (BEAKER) (test prus=841) 4.2 meq/L 3.5-5.1 CHLORIDE (BEAKER) (test pnly=976) 103 meq/L 98-107 CO2 (BEAKER) (test gwfi=616) 25 meq/L 22-29 BLOOD UREA NITROGEN (BEAKER) (test enok=520) 11 mg/dL 7-21 CREATININE (BEAKER) (test hroy=391) 0.72 mg/dL 0.57-1.25 GLUCOSE RANDOM (BEAKER) (test limv=357) 102 mg/dL 70-105 CALCIUM (BEAKER) (test suhg=437) 9.2 mg/dL 8.4-10.2 EGFR (BEAKER) (test pfvt=7867) 91 mL/min/1.73 sq m ESTIMATED GFR IS NOT ACCURATE CREATININE CLEARANCE IN PREDICTING GLOMERULAR FILTRATION RATE. ESTIMATED GFR IS NOT APPLICABLE FOR DIALYSIS PATIENTS. CBC W/PLT COUNT & AUTO [id number] 05:59:00* Test Item Value Reference Range Comments WHITE BLOOD CELL COUNT (BEAKER) (test cjni=017) 7.9 K/ L 3.5-10.5 RED BLOOD CELL COUNT (BEAKER) (test wpgy=596) 3.31 M/ L 3.93-5.22 HEMOGLOBIN (BEAKER) (test fuzz=768) 8.2 GM/DL 11.2-15.7 HEMATOCRIT (BEAKER) (test tigd=629) 26.5 % 34.1-44.9 MEAN CORPUSCULAR VOLUME (BEAKER) (test memu=202) 80.1 fL 79.4-94.8 MEAN CORPUSCULAR HEMOGLOBIN (BEAKER) (test bvye=083) 24.8 pg 25.6-32.2 MEAN CORPUSCULAR HEMOGLOBIN CONC (BEAKER) (test jepx=170) 30.9 GM/DL 32.2-35.5 RED CELL DISTRIBUTION WIDTH (BEAKER) (test ndec=384) 18.9 % 11.7-14.4 PLATELET COUNT (BEAKER) (test igna=298) 223 K/CU MM 150-450 MEAN PLATELET VOLUME (BEAKER) (test dexj=755) 11.0 fL 9.4-12.3 NUCLEATED RED BLOOD CELLS (BEAKER) (test bfou=159) 0 /100 WBC 0-0 NEUTROPHILS RELATIVE PERCENT (BEAKER) (test bpfs=823) 56 % LYMPHOCYTES RELATIVE PERCENT (BEAKER) (test vjyl=535) 29 % MONOCYTES RELATIVE PERCENT (BEAKER) (test gltz=567) 11 % EOSINOPHILS RELATIVE PERCENT (BEAKER) (test mlza=013) 4 % BASOPHILS RELATIVE PERCENT (BEAKER) (test kkig=892) 0 % NEUTROPHILS ABSOLUTE COUNT (BEAKER) (test qwzy=261) 4.39 K/ L 1.56-6.13 LYMPHOCYTES ABSOLUTE COUNT (BEAKER) (test izfv=083) 2.28 K/ L 1.18-3.74 MONOCYTES ABSOLUTE COUNT (BEAKER) (test zzqv=382) 0.84 K/ L 0.24-0.36 EOSINOPHILS ABSOLUTE COUNT (BEAKER) (test atzw=242) 0.31 K/ L 0.04-0.36 BASOPHILS ABSOLUTE COUNT (BEAKER) (test obuq=111) 0.02 K/ L 0.01-0.08 IMMATURE GRANULOCYTES-RELATIVE PERCENT (BEAKER) (test frpt=6812) 1 % 0-1 URINE [id number] 11:31:00* Test Item Value Reference Range Comments CULTURE (BEAKER) (test tkid=1499) ENTEROBACTER AEROGENES 10-19,000 col/mL Enterobacter aerogenesAmpC Positive Amikacin (test code=1) Aztreonam (test code=32) Cefepime (test code=51) Cefoxitin (test code=68) Ceftazidime (test code=27) Ceftriaxone (test code=52) Ertapenem (test code=38) Gentamicin (test code=18) Levofloxacin (test code=22) Meropenem (test code=34) Nitrofurantoin (test code=23) Piperacillin + Tazobactam (test code=29) Tetracycline (test code=2) Tobramycin (test code=25) Trimethoprim + Sulfamethoxazole (test code=47) CULTURE (BEAKER) (test czwh=1406) VANCOMYCIN RESISTANT ENTEROCOCCUS SPECIES >100,000 col/mL Vancomycin resistant Enterococcus speciesThis is an appended report. These organism results have been appended to a previously final verified report. Ampicillin (test code=26) Linezolid (test code=40) Nitrofurantoin (test code=23) Tetracycline (test code=2) Vancomycin (test code=13) Daptomycin (test code=59) [id number] 06:18:00* Test Item Value Reference Range Comments PHOSPHORUS (BEAKER) (test ccrm=340) 3.8 mg/dL 2.3-4.7 [id number] 06:18:00* Test Item Value Reference Range Comments MAGNESIUM (BEAKER) (test rzbd=779) 2.2 mg/dL 1.6-2.6 BASIC METABOLIC [id number] 06:18:00* Test Item Value Reference Range Comments SODIUM (BEAKER) (test nexo=256) 137 meq/L 136-145 POTASSIUM (BEAKER) (test mtif=727) 4.4 meq/L 3.5-5.1 CHLORIDE (BEAKER) (test bdfn=736) 106 meq/L 98-107 CO2 (BEAKER) (test jigl=235) 23 meq/L 22-29 BLOOD UREA NITROGEN (BEAKER) (test mtru=886) 9 mg/dL 7-21 CREATININE (BEAKER) (test mhjt=656) 0.75 mg/dL 0.57-1.25 GLUCOSE RANDOM (BEAKER) (test dkei=974) 89 mg/dL 70-105 CALCIUM (BEAKER) (test oalw=932) 9.5 mg/dL 8.4-10.2 EGFR (BEAKER) (test jcyd=4561) 86 mL/min/1.73 sq m ESTIMATED GFR IS NOT ACCURATE CREATININE CLEARANCE IN PREDICTING GLOMERULAR FILTRATION RATE. ESTIMATED GFR IS NOT APPLICABLE FOR DIALYSIS PATIENTS. HEPATIC FUNCTION [id number] 06:18:00* Test Item Value Reference Range Comments TOTAL PROTEIN (BEAKER) (test zert=542) 6.8 gm/dL 6.0-8.3 ALBUMIN (BEAKER) (test sfto=5086) 4.0 g/dL 3.5-5.0 BILIRUBIN TOTAL (BEAKER) (test swir=570) 0.1 mg/dL 0.2-1.2 BILIRUBIN DIRECT (BEAKER) (test hazn=065) 0.1 mg/dL 0.1-0.5 ALKALINE PHOSPHATASE (BEAKER) (test qvyg=905) 123 U/L 40-150 AST (SGOT) (BEAKER) (test ktur=972) 23 U/L 5-34 ALT (SGPT) (BEAKER) (test lntf=995) 19 U/L 6-55 CBC W/PLT COUNT & AUTO [id number] 06:00:00* Test Item Value Reference Range Comments WHITE BLOOD CELL COUNT (BEAKER) (test qlej=266) 9.0 K/ L 3.5-10.5 RED BLOOD CELL COUNT (BEAKER) (test alnu=040) 3.66 M/ L 3.93-5.22 HEMOGLOBIN (BEAKER) (test hdrv=211) 8.7 GM/DL 11.2-15.7 HEMATOCRIT (BEAKER) (test znio=636) 30.0 % 34.1-44.9 MEAN CORPUSCULAR VOLUME (BEAKER) (test asxk=422) 82.0 fL 79.4-94.8 MEAN CORPUSCULAR HEMOGLOBIN (BEAKER) (test zfuc=558) 23.8 pg 25.6-32.2 MEAN CORPUSCULAR HEMOGLOBIN CONC (BEAKER) (test izif=664) 29.0 GM/DL 32.2-35.5 RED CELL DISTRIBUTION WIDTH (BEAKER) (test nces=761) 19.0 % 11.7-14.4 PLATELET COUNT (BEAKER) (test bbjx=139) 217 K/CU MM 150-450 MEAN PLATELET VOLUME (BEAKER) (test losi=877) 11.1 fL 9.4-12.3 NUCLEATED RED BLOOD CELLS (BEAKER) (test gxfj=276) 0 /100 WBC 0-0 NEUTROPHILS RELATIVE PERCENT (BEAKER) (test krdn=637) 55 % LYMPHOCYTES RELATIVE PERCENT (BEAKER) (test ncvn=927) 28 % MONOCYTES RELATIVE PERCENT (BEAKER) (test uaww=813) 10 % EOSINOPHILS RELATIVE PERCENT (BEAKER) (test auqw=732) 4 % BASOPHILS RELATIVE PERCENT (BEAKER) (test jkir=208) 0 % NEUTROPHILS ABSOLUTE COUNT (BEAKER) (test ffcn=047) 4.96 K/ L 1.56-6.13 LYMPHOCYTES ABSOLUTE COUNT (BEAKER) (test uquk=748) 2.50 K/ L 1.18-3.74 MONOCYTES ABSOLUTE COUNT (BEAKER) (test tmhj=334) 0.88 K/ L 0.24-0.36 EOSINOPHILS ABSOLUTE COUNT (BEAKER) (test qhpz=041) 0.37 K/ L 0.04-0.36 BASOPHILS ABSOLUTE COUNT (BEAKER) (test vexq=962) 0.02 K/ L 0.01-0.08 IMMATURE GRANULOCYTES-RELATIVE PERCENT (BEAKER) (test tcmm=2836) 3 % 0-1 [id number] 06:20:00* Test Item Value Reference Range Comments PHOSPHORUS (BEAKER) (test bgvr=288) 4.1 mg/dL 2.3-4.7 [id number] 06:20:00* Test Item Value Reference Range Comments MAGNESIUM (BEAKER) (test goox=252) 2.3 mg/dL 1.6-2.6 BASIC METABOLIC [id number] 06:20:00* Test Item Value Reference Range Comments SODIUM (BEAKER) (test lvvm=347) 138 meq/L 136-145 POTASSIUM (BEAKER) (test rmvy=649) 4.3 meq/L 3.5-5.1 CHLORIDE (BEAKER) (test rmze=032) 107 meq/L 98-107 CO2 (BEAKER) (test ohtf=922) 22 meq/L 22-29 BLOOD UREA NITROGEN (BEAKER) (test zvbq=680) 15 mg/dL 7-21 CREATININE (BEAKER) (test losy=085) 0.81 mg/dL 0.57-1.25 GLUCOSE RANDOM (BEAKER) (test lyyj=017) 101 mg/dL 70-105 CALCIUM (BEAKER) (test ksvw=441) 9.2 mg/dL 8.4-10.2 EGFR (BEAKER) (test azmq=0273) 79 mL/min/1.73 sq m ESTIMATED GFR IS NOT ACCURATE CREATININE CLEARANCE IN PREDICTING GLOMERULAR FILTRATION RATE. ESTIMATED GFR IS NOT APPLICABLE FOR DIALYSIS PATIENTS. HEPATIC FUNCTION [id number] 06:20:00* Test Item Value Reference Range Comments TOTAL PROTEIN (BEAKER) (test nrna=577) 6.6 gm/dL 6.0-8.3 ALBUMIN (BEAKER) (test ljjq=5461) 3.8 g/dL 3.5-5.0 BILIRUBIN TOTAL (BEAKER) (test jnkm=671) 0.2 mg/dL 0.2-1.2 BILIRUBIN DIRECT (BEAKER) (test zikj=800) 0.1 mg/dL 0.1-0.5 ALKALINE PHOSPHATASE (BEAKER) (test zyhv=965) 142 U/L 40-150 AST (SGOT) (BEAKER) (test rnhb=938) 25 U/L 5-34 ALT (SGPT) (BEAKER) (test ysmk=119) 18 U/L 6-55 CBC W/PLT COUNT & AUTO [id number] 06:10:00* Test Item Value Reference Range Comments WHITE BLOOD CELL COUNT (BEAKER) (test htdl=966) 10.1 K/ L 3.5-10.5 RED BLOOD CELL COUNT (BEAKER) (test tozi=080) 3.47 M/ L 3.93-5.22 HEMOGLOBIN (BEAKER) (test hitn=671) 8.5 GM/DL 11.2-15.7 HEMATOCRIT (BEAKER) (test cwsf=412) 28.4 % 34.1-44.9 MEAN CORPUSCULAR VOLUME (BEAKER) (test apce=384) 81.8 fL 79.4-94.8 MEAN CORPUSCULAR HEMOGLOBIN (BEAKER) (test umpq=095) 24.5 pg 25.6-32.2 MEAN CORPUSCULAR HEMOGLOBIN CONC (BEAKER) (test qmbp=005) 29.9 GM/DL 32.2-35.5 RED CELL DISTRIBUTION WIDTH (BEAKER) (test inrj=602) 19.0 % 11.7-14.4 PLATELET COUNT (BEAKER) (test jlgv=711) 192 K/CU MM 150-450 MEAN PLATELET VOLUME (BEAKER) (test uqes=702) 12.2 fL 9.4-12.3 NUCLEATED RED BLOOD CELLS (BEAKER) (test snuy=191) 0 /100 WBC 0-0 NEUTROPHILS RELATIVE PERCENT (BEAKER) (test fcwp=044) 54 % LYMPHOCYTES RELATIVE PERCENT (BEAKER) (test ylnz=274) 28 % MONOCYTES RELATIVE PERCENT (BEAKER) (test qgts=982) 9 % EOSINOPHILS RELATIVE PERCENT (BEAKER) (test rvdp=731) 4 % BASOPHILS RELATIVE PERCENT (BEAKER) (test isyz=359) 0 % NEUTROPHILS ABSOLUTE COUNT (BEAKER) (test vmeg=617) 5.48 K/ L 1.56-6.13 LYMPHOCYTES ABSOLUTE COUNT (BEAKER) (test fcoz=822) 2.81 K/ L 1.18-3.74 MONOCYTES ABSOLUTE COUNT (BEAKER) (test hzxn=855) 0.87 K/ L 0.24-0.36 EOSINOPHILS ABSOLUTE COUNT (BEAKER) (test mwfw=465) 0.39 K/ L 0.04-0.36 BASOPHILS ABSOLUTE COUNT (BEAKER) (test bnhm=172) 0.04 K/ L 0.01-0.08 IMMATURE GRANULOCYTES-RELATIVE PERCENT (BEAKER) (test bwoj=9264) 5 % 0-1 HEMOGLOBIN [id number] 14:08:00* Test Item Value Reference Range Comments HEMOGLOBIN A1C (BEAKER) (test nmvn=152) 5.9 % 4.3-6.1 CBC W/PLT COUNT & AUTO [id number] 12:20:00* Test Item Value Reference Range Comments WHITE BLOOD CELL COUNT (BEAKER) (test uymz=983) 16.6 K/ L 3.5-10.5 RED BLOOD CELL COUNT (BEAKER) (test ihcg=847) 3.89 M/ L 3.93-5.22 HEMOGLOBIN (BEAKER) (test nqek=806) 9.4 GM/DL 11.2-15.7 HEMATOCRIT (BEAKER) (test ceys=944) 31.8 % 34.1-44.9 MEAN CORPUSCULAR VOLUME (BEAKER) (test qpug=214) 81.7 fL 79.4-94.8 MEAN CORPUSCULAR HEMOGLOBIN (BEAKER) (test lekz=432) 24.2 pg 25.6-32.2 MEAN CORPUSCULAR HEMOGLOBIN CONC (BEAKER) (test ykek=201) 29.6 GM/DL 32.2-35.5 RED CELL DISTRIBUTION WIDTH (BEAKER) (test zhip=881) 18.6 % 11.7-14.4 PLATELET COUNT (BEAKER) (test notd=336) 211 K/CU MM 150-450 MEAN PLATELET VOLUME (BEAKER) (test eryb=627) 10.5 fL 9.4-12.3 NUCLEATED RED BLOOD CELLS (BEAKER) (test lzjp=899) 0 /100 WBC 0-0 (CELLAVISION MANUAL DIFF)2017-12-20 12:20:00* Test Item Value Reference Range Comments NEUTROPHILS - REL (CELLAVISION)(BEAKER) (test bmmr=6429) 80 % LYMPHOCYTES - REL (CELLAVISION)(BEAKER) (test udoi=8251) 15 % MONOCYTES - REL (CELLAVISION)(BEAKER) (test cvnv=2165) 2 % EOSINOPHILS - REL (CELLAVISION)(BEAKER) (test vbra=0504) 3 % NEUTROPHILS - ABS (CELLAVISION)(BEAKER) (test khmq=8266) 13.28 K/ul 1.56-6.13 LYMPHOCYTES - ABS (CELLAVISION)(BEAKER) (test iofl=5229) 2.49 K/ul 1.18-3.74 MONOCYTES - ABS (CELLAVISION)(BEAKER) (test thtv=7999) 0.33 K/uL 0.24-0.36 EOSINOPHILS - ABS (CELLAVISION)(BEAKER) (test rwch=2794) 0.50 K/uL 0.04-0.36 TOTAL COUNTED (BEAKER) (test kuuo=3184) 100 WBC MORPHOLOGY (BEAKER) (test xiix=283) Normal PLT MORPHOLOGY (BEAKER) (test ewuy=531) Normal POLYCHROMATOPHILLIC RBCS(BEAKER) (test uonv=688) 2+ moderate ANISOCYTOSIS (BEAKER) (test jqom=061) 2+ moderate OVALOCYTES (BEAKER) (test zqwg=853) 1+ few TEAR DROP CELLS (BEAKER) (test nfyd=180) 1+ few JACKSON CELLS (BEAKER) (test evkn=127) 2+ moderate ARTIFACT (CELLAVISION)(BEAKER) (test lztm=6696) Present PLATELET CONCENTRATION (CELLAVISION)(BEAKER) (test bzpn=3115) Adequate Received comment: User comments: Slide comments: TSH/FREE T4 IF INDICATED 2017-12-20 07:01:00* Test Item Value Reference Range Comments THYROID STIMULATING HORMONE (BEAKER) (test pjwt=312) 3.12 uIU/mL 0.35-4.94 [id number] 06:29:00* Test Item Value Reference Range Comments PHOSPHORUS (BEAKER) (test jnbj=572) 4.2 mg/dL 2.3-4.7 [id number] 06:29:00* Test Item Value Reference Range Comments MAGNESIUM (BEAKER) (test enol=185) 2.1 mg/dL 1.6-2.6 BASIC METABOLIC [id number] 06:29:00* Test Item Value Reference Range Comments SODIUM (BEAKER) (test zbsg=885) 138 meq/L 136-145 POTASSIUM (BEAKER) (test nahu=499) 3.8 meq/L 3.5-5.1 CHLORIDE (BEAKER) (test esmo=822) 106 meq/L 98-107 CO2 (BEAKER) (test fmps=268) 19 meq/L 22-29 BLOOD UREA NITROGEN (BEAKER) (test qqsb=204) 11 mg/dL 7-21 CREATININE (BEAKER) (test elbj=229) 0.75 mg/dL 0.57-1.25 GLUCOSE RANDOM (BEAKER) (test tfwl=158) 90 mg/dL 70-105 CALCIUM (BEAKER) (test usvt=787) 9.7 mg/dL 8.4-10.2 EGFR (BEAKER) (test kric=6238) 86 mL/min/1.73 sq m ESTIMATED GFR IS NOT ACCURATE CREATININE CLEARANCE IN PREDICTING GLOMERULAR FILTRATION RATE. ESTIMATED GFR IS NOT APPLICABLE FOR DIALYSIS PATIENTS. LIPID [id number] 06:29:00* Test Item Value Reference Range Comments TRIGLYCERIDES (BEAKER) (test scly=121) 280 mg/dL CHOLESTEROL (BEAKER) (test aigj=763) 156 mg/dL HDL CHOLESTEROL (BEAKER) (test cqzn=270) 25 mg/dL LDL CHOLESTEROL CALCULATED (BEAKER) (test ygit=896) 75 mg/dL Triglyceride Reference Range: Low Risk <150 Borderline 150-199 High Risk 200-499 Very High Risk >=500Cholesterol Reference Range: Low Risk <200 Borderline 200-239 High Risk >240HDL Cholesterol Reference Range: Low Risk >=60 High Risk <40LDL Cholesterol Reference Range: Optimal <100 Near Optimal 100-129 Borderline 130-159 High 160-189 Very High >=190 HEPATIC FUNCTION [id number] 06:29:00* Test Item Value Reference Range Comments TOTAL PROTEIN (BEAKER) (test gquk=875) 7.8 gm/dL 6.0-8.3 ALBUMIN (BEAKER) (test gjhp=2000) 4.5 g/dL 3.5-5.0 BILIRUBIN TOTAL (BEAKER) (test nlmn=225) 0.3 mg/dL 0.2-1.2 BILIRUBIN DIRECT (BEAKER) (test yjno=058) 0.1 mg/dL 0.1-0.5 ALKALINE PHOSPHATASE (BEAKER) (test fcml=354) 170 U/L 40-150 AST (SGOT) (BEAKER) (test opem=794) 25 U/L 5-34 ALT (SGPT) (BEAKER) (test zore=281) 19 U/L 6-55 LACTIC ACID, VENOUS, WHOLE [id number] 05:18:00* Test Item Value Reference Range Comments LACTATE BLOOD VENOUS (2) (BEAKER) (test znqb=8446) 0.8 mmol/L 0.5-2.2 Effective 11/11/2015: Units/Reference Range ChangeNew: 0.5-2.2 mmol/L Previous: 5 -20 mg/dLCBC W/PLT COUNT & AUTO [id number] 20:09:00* Test Item Value Reference Range Comments WHITE BLOOD CELL COUNT (BEAKER) (test xgif=804) 19.6 K/ L 3.5-10.5 RED BLOOD CELL COUNT (BEAKER) (test zxju=293) 3.66 M/ L 3.93-5.22 HEMOGLOBIN (BEAKER) (test rccm=620) 9.3 GM/DL 11.2-15.7 HEMATOCRIT (BEAKER) (test xeuj=070) 29.3 % 34.1-44.9 MEAN CORPUSCULAR VOLUME (BEAKER) (test wmwt=253) 80.1 fL 79.4-94.8 MEAN CORPUSCULAR HEMOGLOBIN (BEAKER) (test ulxu=196) 25.4 pg 25.6-32.2 MEAN CORPUSCULAR HEMOGLOBIN CONC (BEAKER) (test jaxw=261) 31.7 GM/DL 32.2-35.5 RED CELL DISTRIBUTION WIDTH (BEAKER) (test osvu=940) 18.4 % 11.7-14.4 PLATELET COUNT (BEAKER) (test cnbc=916) 195 K/CU MM 150-450 MEAN PLATELET VOLUME (BEAKER) (test kthn=235) 10.5 fL 9.4-12.3 NUCLEATED RED BLOOD CELLS (BEAKER) (test aysl=143) 0 /100 WBC 0-0 (CELLAVISION MANUAL DIFF)2017 20:09:00* Test Item Value Reference Range Comments NEUTROPHILS - REL (CELLAVISION)(BEAKER) (test ugcu=9324) 74 % LYMPHOCYTES - REL (CELLAVISION)(BEAKER) (test beos=7091) 13 % MONOCYTES - REL (CELLAVISION)(BEAKER) (test cuta=0567) 3 % EOSINOPHILS - REL (CELLAVISION)(BEAKER) (test bcls=3608) 3 % MYELOCYTES - REL (CELLAVISION)(BEAKER) (test irnq=1264) 1 % 0-0 PROMYELOCYTES - REL (CELLAVSION)(BEAKER) (test ugxv=9752) 1 % 0-0 BANDS - REL (CELLAVISION)(BEAKER) (test byhs=8430) 5 % 0-10 NEUTROPHILS - ABS (CELLAVISION)(BEAKER) (test qags=5050) 14.50 K/ul 1.56-6.13 LYMPHOCYTES - ABS (CELLAVISION)(BEAKER) (test lejt=2078) 2.55 K/ul 1.18-3.74 MONOCYTES - ABS (CELLAVISION)(BEAKER) (test aftg=0422) 0.59 K/uL 0.24-0.36 EOSINOPHILS - ABS (CELLAVISION)(BEAKER) (test fjga=0973) 0.59 K/uL 0.04-0.36 MYELOCYTES-ABS (CELLAVISION)(BEAKER) (test dsrw=1829) 0.20 K/uL 0.00-0.00 PROMYELOCYTES - ABS (CELLAVISION)(BEAKER) (test lont=0341) 0.20 K/uL 0.00-0.00 BANDS - ABS (CELLAVISION)(BEAKER) (test hjtq=6348) 0.98 K/uL 0.00-0.80 TOTAL COUNTED (BEAKER) (test pnki=4886) 100 GIANT PLATELETS (BEAKER) (test dlmw=940) Present TOXIC GRANULATION (BEAKER) (test jvfj=303) Present POLYCHROMATOPHILLIC RBCS(BEAKER) (test trrg=139) 1+ few ANISOCYTOSIS (BEAKER) (test vvim=859) 2+ moderate MICROCYTES (BEAKER) (test pdzz=429) 2+ moderate POIKILOCYTES (BEAKER) (test bpft=389) 2+ moderate ELLIPTOCYTES (BEAKER) (test qzdq=607) 1+ few TEAR DROP CELLS (BEAKER) (test hqvw=553) 1+ few ARTIFACT (CELLAVISION)(BEAKER) (test xism=2970) Present PLATELET CONCENTRATION (CELLAVISION)(BEAKER) (test qffb=8930) Adequate Received comment: User comments: Slide comments: CT, [id number] 18:05:00 Reason for exam:->abdominal painIs the patient ?->UnknownWhat is the patient's sedation requirement?->No SedationFINAL REPORT HISTORY : abdominal painabdominal pain/hx pancreatic ca/allergy to contrast Technique: Multiple axial images of the abdomen and pelvis were performed without the administration of IV or oral contrast. This exam was performed according to our departmental dose optimization program which includes automated exposure control, adjustment of the mA and/or kV according to patient size and/or use of iterative reconstructive technique. COMPARISON : 11/22/2017 and 10/24/2017 COMMENT : The lung bases are clear. The visualized adrenal glands, stomach and duodenum are within normal limits. The pancreatic body and tail are atrophic. There is some nonspecific prominence identified of the pancreatic head and neck region measuring up to 3.3 x 3.2 cm. This likely corresponds to the patient's history of pancreatic cancer. This may also correspond to the cystic lesion seen in the pancreatic head. Evaluation limited without IV contrast. There are a total of 2 adjacent stones identified in the lower pole of the right kidney with the larger measuring up to 0.4 cm. There is some new nonspecific hyperdense material identified in the lower pole the right kidney that may co rrespond to one of the calyces in the right lower pole. This is nonspecific and could represent some debris or hemorrhagic material within a calyx or within a c yst. Other etiologies including a mass cannot be excluded. There is mild splenom egaly. In the inferior aspect of the right hepatic lobe, there is a subcentimete r too small to characterize hypodensity which may represent a cyst. The patient is status post cholecystectomy. There is no abdominal, retroperitoneal or pelvic lymphadenopathy. There are partially visualized bilateral breast prostheses. Mu ltilevel degenerative changes of the thoracolumbar spine are seen. In the anteri or abdomen, there is a calcified focus with some hazy density with some central fatty component measuring up to 1.4 x 1.1 cm. This most likely represents an are a of fat necrosis. This should be followed to exclude other potential etiologies .. There is no free fluid or free air in the abdomen or pelvis. No findings of a ny bowel obstruction. The small as well as the large bowel are within normal [place] its. The appendix is visualized. There are no CT findings to suggest appendiciti s. The patient is status post hysterectomy. No adnexal masses/lesions are ap preciated. Impression: 1. Fullness in the pancreatic head/neck region that m ay represent previously seen mass and cystic lesions on the CTs of 10/24/2017 and 11/22/2017. The prominence has diminished in size. There is atrophy of the pancr eatic body and tail. Evaluation is limited without IV contrast. 2. Status post c holecystectomy and hysterectomy. 3. Right renal lower pole stones. Crescentic sh aped hyperdensity in the lower pole of the right kidney could represent some rebecca ris or hemorrhagic material within a calyx/cyst. This could also represent a dev eloping stone. Evaluation is limited without IV contrast. Signed: Kerri Gomez Verified Date/Time: 2017 18:05:33 Reading Location: [facility] C0[facility] Consult Reading Room Electronically signed by: KERRI GOMEZ M.D. on 2017 06:05 PM ALKALINE [id number] 17:42:00* Test Item Value Reference Range Comments ALKALINE PHOSPHATASE (BEAKER) (test ellp=591) 173 U/L 40-150 [id number] 17:42:00* Test Item Value Reference Range Comments LIPASE (BEAKER) (test ljmu=909) 21 U/L 8-78 ALT (SGPT)2017 17:42:00* Test Item Value Reference Range Comments ALT (SGPT) (BEAKER) (test gmme=657) 19 U/L 6-55 [id number] 17:42:00* Test Item Value Reference Range Comments AMYLASE (BEAKER) (test irvb=733) 47 U/L 25-125 AST (SGOT)2017 17:42:00* Test Item Value Reference Range Comments AST (SGOT) (BEAKER) (test mbtk=331) 25 U/L 5-34 BASIC METABOLIC [id number] 17:42:00* Test Item Value Reference Range Comments SODIUM (BEAKER) (test eqky=059) 137 meq/L 136-145 POTASSIUM (BEAKER) (test wmbi=125) 4.4 meq/L 3.5-5.1 CHLORIDE (BEAKER) (test hhym=652) 105 meq/L 98-107 CO2 (BEAKER) (test dlsh=209) 25 meq/L 22-29 BLOOD UREA NITROGEN (BEAKER) (test tmvz=255) 12 mg/dL 7-21 CREATININE (BEAKER) (test npvz=452) 0.73 mg/dL 0.57-1.25 GLUCOSE RANDOM (BEAKER) (test agso=907) 122 mg/dL 70-105 CALCIUM (BEAKER) (test pmwj=510) 9.6 mg/dL 8.4-10.2 EGFR (BEAKER) (test qewc=6147) 89 mL/min/1.73 sq m ESTIMATED GFR IS NOT ACCURATE CREATININE CLEARANCE IN PREDICTING GLOMERULAR FILTRATION RATE. ESTIMATED GFR IS NOT APPLICABLE FOR DIALYSIS PATIENTS. URINALYSIS W/ [id number] 17:39:00* Test Item Value Reference Range Comments COLOR (BEAKER) (test fchn=951) Yellow CLARITY (BEAKER) (test yuxw=738) Hazy SPECIFIC GRAVITY UA (BEAKER) (test xuhk=577) 1.011 1.001-1.035 PH UA (BEAKER) (test gwoo=849) 6.5 5.0-8.0 PROTEIN UA (BEAKER) (test qtyp=275) Negative Negative GLUCOSE UA (BEAKER) (test cmuh=539) Negative Negative KETONES UA (BEAKER) (test ogxd=941) Negative Negative BILIRUBIN UA (BEAKER) (test pmrq=797) Negative Negative BLOOD UA (BEAKER) (test wiwe=031) Negative Negative NITRITE UA (BEAKER) (test rfzu=978) Negative Negative LEUKOCYTE ESTERASE UA (BEAKER) (test jmha=534) Small Negative UROBILINOGEN UA (BEAKER) (test vatd=568) 0.2 mg/dL 0.2-1.0 RBC UA (BEAKER) (test twit=871) 1 /HPF WBC UA (BEAKER) (test tgft=554) 27 /HPF BACTERIA (BEAKER) (test chdx=809) Many MUCUS (BEAKER) (test ybcc=9882) Occasional SQUAMOUS EPITHELIAL (BEAKER) (test euik=236) 9 /HPF SOURCE(BEAKER) (test pfsc=9426) Urine, Clean Catch RAD, CHEST, 1 VIEW, NON [id number] 17:28:00Reason for exam:->CHEST PAINIs the patient ?->UnknownShould this be performed at the bedside?->YesFINAL REPORT TECHNIQUE: Frontal chest radiograph dated . CLINICAL HISTORY: Chest pain COMPARISON STUDY: chest radiograph dated 11/22/2017 IMPRESSION:Right-sided MediPort is unchanged. Lungs are clear. No pleu ral effusion or pneumothorax. Cardiomediastinal silhouette is normal in size. No pulmonary edema. Bones are unremarkable. Signed: Iris Camara rified Date/Time: 2017 17:28:16 Reading Location: [facility] Radiology Reading Room P M POCT-LACTIC ACID, [id number] 17:17:00* Test Item Value Reference Range Comments POC-LACTIC ACID, VENOUS (BEAKER) (test rxvh=2500) 1.4 mmol/L 0.9-1.7 TESTED AT [place] [address] [address] ABDOMEN/PELVIS [id number] 16:32:00 [place] [address] Patient Name: BELIA VIGIL MR #: [id number] : 1980 Age/Sex: 36/F Req #: [id number] Adm Physician: JESUS MELENDEZ MD Ordered by: AL HYDE MD Report #: [id number] Location: [facility] Room/Bed: [facility] Procedure: CT/CT A BDOMEN/PELVIS WO Exam Date: 12/14/17 Exam Time: 1546 REPORT STATUS: Signed PROCEDURE: CT ABDOMEN AND PELVIS WITHOUT CONTRAS T TECHNIQUE: The abdomen and pelvis were scanned utilizing a multidetec tor helical scanner from the diaphragm to the lesser trochanter. Patient unab le to tolerate oral contrast. No IV contrast was administered due to history of iodine allergy Coronal and sagittal multiplanar reformations were [place]. COMPARISON: [facility], CT, CT ABDOMEN/PELVIS WO, , 10:56. [facility], CT, CT CHEST WO, 12/13/2017, 13:44. INDICATIONS: STOMACH SWELLING, VOMITING, PANCREATIC CANCER FINDIN GS: ABSENCE OF INTRAVENOUS CONTRAST DECREASES SENSITIVITY FOR DETECTION OF FOCAL LESIONS AND VASCULAR PATHOLOGY. LOWER THORAX: Unremarkable. Part ially visualized breast implants. HEPATOBILIARY: No focal hepatic lesions. No biliary ductal dilatation. Cholecystectomy clips SPLEEN: No splenomega ly. PANCREAS: No focal lesion is noted in this noncontrast exam, however, t here is moderate to marked pancreatic atrophy of the body and tail compared t o prior exam. No ductal dilation. ADRENALS: No adrenal nodules. KIDNEYS/ URETERS: Stable 3 mm nonobstructing calculi in the inferior pole of the right kidney (series 2 image 31). Previously visualized left nonobstructing calculi are not seen. The current exam. No other renal or any ureteral calculi, hy dronephrosis, or obstruction. No renal contour abnormalities. PELVIC ORGANS/ BLADDER: Bladder is moderately distended, but grossly unremarkable. No adnexa l masses. PERITONEUM / RETROPERITONEUM: No free air or fluid. LYMPH NODE S: Mildly prominent, although subcentimeter left para-aortic node (series 2, image 28), which measures 0.9 cm in short axis and is stable. No adenopathy. VESSELS: Unremarkable. GI TRACT: No bowel dilation or evidence of obstru ction. Stomach is unremarkable. BONES AND SOFT TISSUES: No acute bony a bnormalities. No lytic lesions. Soft tissues are unremarkable. IMPRESSI ON: 1. no acute abdominopelvic abnormalities. Specifically, no bowel di lation or evidence of obstruction. 2. No focal lesion is noted in the pancreas , however, exam is limited by the lack of intravenous contrast. There is inte rval development of moderate to marked pancreatic atrophy of the body and juan l compared to the prior exam. No ductal dilation. 3. Stable 3 mm nonobstruc ting calculi in the inferior pole of the right kidney. Previously visualized nonobstructing calculi in the left kidney are not seen on the current exam. N o ureteral calculi, hydronephrosis or obstruction. Angel mayorga M.D. Dictated by: Angel Pierce M.D. on 12/14/2017 at 16:32 Electronically approved by: Angel Pierce M.D. on 12/14/2017 at 16:32 Dictated By: ANGEL PIERCE MD 31 Transcribed By: KALINA on 12/14/17 163 COPY TO: AL HYDE MD SPECIAL PROCEDURE IN CATH [id number] 07:40:00 [place] [address] Patient Name: BELIA VIGIL MR #: [id number] : 1980 Age/Sex: 37/F Req #: [id number] Adm Physician: AL HYDE MD Ordered by: AL HYDE MD Report #: [id number] Location: [place] [address] Room/Bed: [facility] Procedure: IR/OLIVER AL PROCEDURE IN MULTIMEDIA AUTHOR Exam Date: Exam Time: REPORT STATUS: Signed Non-tunneled Central Venous Catheter Placement 018 Pre-Procedure Diagnosis: Poor IV access; pancreatic cancer. Post-proc edure Diagnosis:Poor IV access; pancreatic cancer. Partition Notcher: Sidney Hernandez Head Girls Golf Coach: None Sedation: None. 1% lidocaine local anesthesia. Radiatio n Dose:36.3 cGycm2 (Dose Area Product) Fluoroscopy time:0.8 minutes Estim ate blood loss: <5 mL Blood administered: None Complications: None Implants/Grafts: 20 cm 7-German 3 lumen CVC Specimen: None Procedure: Informed consent was obtained and the patient positioned supine in the ultrasound suite. A timeout was performed, followed by preliminary of the left internal jugular vein (see findings below). The left neck was prepped and draped in standard fashion. Using real-time ultrasound guidance a 21 gauge vascular needle was used to access the left internal jugular vein. An image was stored in the electronic medical record. A wire was advanced while monitoring the patient's cardiac rhythm, resistance was felt after 5 or 6 cm of wire was within the vessel. Given this difficulty wire was removed and the patient transferred to the Conservation Enforcement Officer. A timeout was repeated. Using real- time ultrasound guidance a 21 gauge vascular needle was used to access the left internal jugular vein. An image was stored in the electronic medical record. A wire was advanced across the right atrium under fluoroscopy. Again, there was some difficulty passing the microwire through the left brachiocephalic vein. The needle was exchanged for a 5-German transition sheath and 035 Glidewire advanced across the brachiocephalic vein and right atrium. The catheter was then exchanged for a non-tunneled central venous catheter using Seldinger technique. The catheter was positioned at the low SVC/superior atrial-caval junction under fluoroscopy. At the end of the procedure the catheter was flushed, secured to the skin and a sterile dressing applied. The patient tolerated the procedure well and without immediate complication. Findings: 1. Patent left internal jugular vein as demonstr ated by normal ultrasound compressibility. 2. There was mild difficulty pas sing a wire through the left brachiocephalic vein. This may be secondary to to rtuosity or stenosis. A venogram could not be performed given the patient's co ntrast allergy. Impression: Successful placement of a non-tunneled right internal jugular central venous catheter using ultrasound and fluoroscopic ousmane dance. This report was generated with voice-recognition technology. E rrors in rehab trainer can occur. Please interpret accordingly and contact a r adiologist if there are any questions regarding the report. Signed by: Dr Cathryn Hernandez M.D. on 12/14/2017 7:46 AM Dictated By: SHERINE HERNANDEZ MD 2 Transcribed By: WAYNE on 12/19/17922 COPY TO: AL HYDE MD IR CONSULT 2017-12-14 07:40:00 [place] [id number] [place] [address] Patient Name: BELIA VIGIL MR #: [id number] : 1980 Age/Sex: 37/F Req #: [id number] Adm Physician: AL HYDE MD Ordered by: AL HYDE MD Report #: [id number] Location: MED/SURG3 Room/Bed: [facility] Procedure: DX/IR CO NSULT Exam Date: Exam Time: REPORT STATUS: S igned Non-tunneled Central Venous Catheter Placement 12/13/2017 Pre-Proced ure Diagnosis: Poor IV access; pancreatic cancer. Post-procedure Diagnosis:Poo r IV access; pancreatic cancer. Partition Notcher: Sidney Hernandez Head Girls Golf Coach: None Sedation: None. 1% lidocaine local anesthesia. Radiation Dose:36.3 cGycm2 (Dose Area Product) Fluoroscopy time:0.8 minutes Estimate blood loss: <5 mL Blood administered: None Complications: None Implants/Grafts: 20 cm 7-F rench 3 lumen CVC Specimen: None Procedure: Informed consent was obt ained and the patient positioned supine in the ultrasound suite. A timeout was performed, followed by preliminary of the left internal jugular vein (see fin dings below). The left neck was prepped and draped in standard fashion. U sing real-time ultrasound guidance a 21 gauge vascular needle was used to acce ss the left internal jugular vein. An image was stored in the electronic [facility] record. A wire was advanced while monitoring the patient's cardiac rhythm, resistance was felt after 5 or 6 cm of wire was within the vessel. Given this difficulty wire was removed and the patient transferred to the Conservation Enforcement Officer. A timeout was repeated. Using real-time ultrasound guidance a 21 gauge vascular needle was used to access the left internal jugular vein. An image was store d in the electronic medical record. A wire was advanced across the right atriu m under fluoroscopy. Again, there was some difficulty passing the microwire through the left brachiocephalic vein. The needle was exchanged for a 5-German transition sheath and 035 Glidewire advanced across the brachiocephalic vein and right atrium. The catheter was then exchanged for a non-tunneled centra l venous catheter using Seldinger technique. The catheter was positioned at th e low SVC/superior atrial-caval junction under fluoroscopy. At the end of the procedure the catheter was flushed, secured to the skin and a sterile han ssing applied. The patient tolerated the procedure well and without immediate complication. Findings: 1. Patent left internal jugular vein as demonstr ated by normal ultrasound compressibility. 2. There was mild difficulty pas sing a wire through the left brachiocephalic vein. This may be secondary to to rtuosity or stenosis. A venogram could not be performed given the patient's co ntrast allergy. Impression: Successful placement of a non-tunneled right internal jugular central venous catheter using ultrasound and fluoroscopic ousmane dance. This report was generated with voice-recognition technology. E rrors in rehab trainer can occur. Please interpret accordingly and contact a r adiologist if there are any questions regarding the report. Signed by: Dr Cathryn Hernandez M.D. on 12/14/2017 7:46 AM Dictated By: SHERINE HERNANDEZ MD 2 Transcribed By: WAYNE on 12/19/17922 COPY TO: AL HYDE MD US GUIDANCE FOR VASCULAR [id number] 07:40:00 [place] [address] Patient Name: BELIA VIGIL MR #: [id number] : 1980 Age/Sex: 37/F Req #: [id number] Adm Physician: AL HYDE MD Ordered by: AL HYDE MD Report #: [id number] Location: MED/SURG3 Room/Bed: [facility] Procedure: [id number] [facility] IDANCE FOR VASCULAR ACCES Exam Date: 12/13/17 Exam T angela: 1442 REPORT STATUS: Signed Non-tunneled Central Venous Catheter Pl acement 12/13/2017 Pre-Procedure Diagnosis: Poor IV access; pancreatic cancer . Post-procedure Diagnosis:Poor IV access; pancreatic cancer. Partition Notcher: Cecy boyle M.D. Head Girls Golf Coach: None Sedation: None. 1% lidocaine local anesthesia. Radiation Dose:36.3 cGycm2 (Dose Area Product) Fluoroscopy time:0.8 minut es Estimate blood loss: <5 mL Blood administered: None Complications: None Implants/Grafts: 20 cm 7-German 3 lumen CVC Specimen: None Procedure: Informed consent was obtained and the patient positioned supine in the ultrasound suite. A timeout was performed, followed by preliminary of the left internal jugular vein (see findings below). The left neck was prepped and draped in standard fashion. Using real-time ultrasound guidance a 21 gauge vascular needle was used to access the left internal jugular vein. An image was stored in the electronic medical record. A wire was advanced while monitoring the patient's cardiac rhythm, resistance was felt after 5 or 6 cm of wire was within the vessel. Given this difficulty wire was removed and the patient transferred to the Conservation Enforcement Officer. A timeout was repeated. Using real- time ultrasound guidance a 21 gauge vascular needle was used to access the left internal jugular vein. An image was stored in the electronic medical record. A wire was advanced across the right atrium under fluoroscopy. Again, there was some difficulty passing the microwire through the left brachiocephalic vein. The needle was exchanged for a 5-German transition sheath and 035 Glidewire advanced across the brachiocephalic vein and right atrium. The catheter was then exchanged for a non-tunneled central venous catheter using Seldinger technique. The catheter was positioned at the low SVC/superior atrial-caval junction under fluoroscopy. At the end of the procedure the catheter was flushed, secured to the skin and a sterile dressing applied. The patient tolerated the procedure well and without immediate complication. Findings: 1. Patent left internal jugular vein as demonstr ated by normal ultrasound compressibility. 2. There was mild difficulty pas sing a wire through the left brachiocephalic vein. This may be secondary to to rtuosity or stenosis. A venogram could not be performed given the patient's co ntrast allergy. Impression: Successful placement of a non-tunneled right internal jugular central venous catheter using ultrasound and fluoroscopic ousmane dance. This report was generated with voice-recognition technology. E rrors in rehab trainer can occur. Please interpret accordingly and contact a r adiologist if there are any questions regarding the report. Signed by: Dr Cathryn Hernandez M.D. on 12/14/2017 7:46 AM Dictated By: SHERINE HERNANDEZ MD 2 Transcribed By: WAYNE on 12/19/17922 COPY TO: AL HYDE MD VQ LUNG SCAN VENT [id number] 16:43:00 [place] [address] Patient Name: BELIA VIGIL MR #: [id number] : 1980 Age/Sex: 36/F Req #: [id number] Adm Physician: JESUS MELENDEZ MD Ordered by: AL HYDE MD Report #: [id number] Location: MED/SURG3 Room/Bed: [facility] Procedure: NM/VQ L ARDEN SCAN VENT PERFUSION Exam Date: Exam Time: REPORT STATUS: Signed Ventilation/perfusion lung scan Clinical Info rmation: 36 F with recently diagnosed pancreatic cancer, s/p 2 cycles chemothe rapy, presents with acute onset SOB. Comparison: CT chest 12/13/2017 Dis cussion: Xenon-133 gas 19 mCi was administered via inhalation. Dynamic images of the lungs in the posterior projection were obtained through single breath, equilibrium, and washout phases. Distribution of tracer activity appears phy siologic throughout the lungs.. There are no segmental ventilatory defects. Washout of tracer is normal with no evidence of air trapping. Perfusion karol ges of the lungs were obtained in multiple projections following intravenous a dministration of approximately 5.5 mCi of Tc-99m MAA. Distribution of tracer a ppears physiologic throughout the lungs. The contours of the lungs are well demarcated. There are no segmental perfusion defects of any size. The card iomediastinal silhouette is unremarkable. Impression: Normal VQ scan. Scan findings represent a VERY LOW probability for acute pulmonary embolic d isease based on the PIOPED II criteria. Signed by: Dr. Tamiko Aguirre M.D. on 12/13/2017 4:46 PM Dictated By: TAMIKO AGUIRRE MD 45 Transcribed By: WAYNE on 12/13/171645 COPY TO: AL HYDE MD CT CHEST [id number] 13:57:00 [place] [address] Patient Name: BELIA VIGIL MR #: [id number] : 1980 Age/Sex: 36/F Req #: [id number] Adm Physician: JESUS MELENDEZ MD Ordered by: AL HYDE MD Report #: [id number] Location: ED/SURG3 Room/Bed: [facility] Procedure: CT/CT C HEST WO Exam Date: 12/13/17 Exam Time: 1330 RE PORT STATUS: Signed EXAM: CT Chest WITHOUT contrast INDICATION: COMPARISON: None TECHNIQUE: Chest was scanned utilizing a multidete ctor helical scanner from the lung apex through the level of the adrenal gland s without administration of IV contrast. Absence of intravenous contrast decre ases sensitivity for detection of lymphadenopathy and vascular pathology. Nellie nal and sagittal reformations were obtained. Routine protocol was performed. IV CONTRAST: None COMPLICATIONS: None RADIATION DOSE: Total DLP: 523.62 mGy*cm Estimated effective dose: (DLP x 0.014 x size f actor) mSv CTDIvol has been reviewed. It is below the limits set by the R adiation Protocol Committee (RPC). FINDINGS: LINES/ TUBES : Right chest wall port in place with tip terminating in inferior SVC. NOBLE NGS AND AIRWAYS: The lungs are unremarkable. Mild biapical scarring. Airways are normal. PLEURA: The pleural spaces are clear. HEART AND MEDIASTINU M: The thyroid gland is normal. No mediastinal, hilar or axillary lymphadenop athy. The heart is normal in size.. There is no pericardial effusion. UPPER ABDOMEN: Unremarkable. Cholecystectomy. BONES: The visualized bony thorax is within normal limits. SOFT TISSUES: Bilateral breast implants. IMPRESSION: Unremarkable chest CT. No lung consolidation, congestion, o r edema. Signed by: Dr. Gudelia Mckeon MD on 12/13/2017 2:05 PM Dictat ed By: GUDELIA MCKEON MD 1405 Transcribed By: WAYNE on 12/13/17 1405 COPY TO: AL HYDE MD FUNGUS CULTURE + [id number] 12:34:00* Test Item Value Reference Range Comments CULTURE (BEAKER) (test rkug=7841) No fungus isolated in 28 days FUNGUS SMEAR (BEAKER) (test ynfx=3226) No fungi seen FUNGUS CULTURE + [id number] 12:34:00* Test Item Value Reference Range Comments CULTURE (BEAKER) (test axmo=6314) No fungus isolated in 28 days FUNGUS SMEAR (BEAKER) (test vinh=6719) No fungi seen BLOOD [id number] 11:00:00* Test Item Value Reference Range Comments CULTURE (BEAKER) (test ztfz=4590) No growth in 5 days BLOOD [id number] 11:00:00* Test Item Value Reference Range Comments CULTURE (BEAKER) (test xbgy=9374) No growth in 5 days CBC W/PLT COUNT & AUTO [id number] 14:19:00* Test Item Value Reference Range Comments WHITE BLOOD CELL COUNT (BEAKER) (test mmwp=311) 10.5 K/ L 3.5-10.5 RED BLOOD CELL COUNT (BEAKER) (test cuss=297) 3.32 M/ L 3.93-5.22 HEMOGLOBIN (BEAKER) (test erdr=618) 8.0 GM/DL 11.2-15.7 HEMATOCRIT (BEAKER) (test btne=870) 26.5 % 34.1-44.9 MEAN CORPUSCULAR VOLUME (BEAKER) (test znao=137) 79.8 fL 79.4-94.8 MEAN CORPUSCULAR HEMOGLOBIN (BEAKER) (test fixt=474) 24.1 pg 25.6-32.2 MEAN CORPUSCULAR HEMOGLOBIN CONC (BEAKER) (test biku=256) 30.2 GM/DL 32.2-35.5 RED CELL DISTRIBUTION WIDTH (BEAKER) (test jckl=793) 16.8 % 11.7-14.4 PLATELET COUNT (BEAKER) (test mjwu=355) 246 K/CU MM 150-450 MEAN PLATELET VOLUME (BEAKER) (test sqbi=011) 9.4 fL 9.4-12.3 NUCLEATED RED BLOOD CELLS (BEAKER) (test btql=004) 0 /100 WBC 0-0 BASIC METABOLIC [id number] 07:21:00* Test Item Value Reference Range Comments SODIUM (BEAKER) (test ddzh=378) 136 meq/L 136-145 POTASSIUM (BEAKER) (test bykz=097) 3.7 meq/L 3.5-5.1 CHLORIDE (BEAKER) (test ilyi=263) 107 meq/L 98-107 CO2 (BEAKER) (test weae=249) 19 meq/L 22-29 BLOOD UREA NITROGEN (BEAKER) (test dfjw=131) 14 mg/dL 7-21 CREATININE (BEAKER) (test jfxv=368) 0.71 mg/dL 0.57-1.25 GLUCOSE RANDOM (KATHARINA) (test giss=796) 112 mg/dL 70-105 CALCIUM (CATHYAKER) (test bwdu=966) 9.0 mg/dL 8.4-10.2 EGFR (KATHARINA) (test pxdy=3736) 93 mL/min/1.73 sq m ESTIMATED GFR IS NOT ACCURATE CREATININE CLEARANCE IN PREDICTING GLOMERULAR FILTRATION RATE. ESTIMATED GFR IS NOT APPLICABLE FOR DIALYSIS PATIENTS. CT, CHEST, WITHOUT [id number] 07:12:00FINAL REPORT CT scan of the thorax. Clinical history: Neoplasm of abdomen. Staging. Comparison Study: CT scan of the abdomen and pelvis dated the 2017. TECHNIQUE: Contiguous helical slices were acquired through the thorax without the administration of contrast. This exam was performed according to our department dose optimization program which includes automated exposure control, adjustment of the mA and/or kV according to the patient's size and/or use of iterative reconstruction technique. FINDINGS: The mediastinum demonstrates no suspicious masses or adenopathy. There are no pleural effusions. Bilateral breast prostheses are seen. A right-sided Port-A-Cath is present. The visualized portions of the upper abdomen demonstrate the previously described partially v isualized 3.7 x 3.5 cm mass extending from the pancreatic head towards the raulito hepatis region. There is also a 2.7 x 2.6 cm cystic mass in the lateral segment of the left lobe of the liver. Cholecystectomy clips are seen. The spleen is en larged measuring 13.8 cm in AP diameter. The tracheobronchial tree is clear with no endobronchial lesions. The pulmonary parenchyma demonstrates a 2 mm nodule i n the right middle lobe abutting the fissure on image 22. Bone windows are unrem arkable. IMPRESSION:1. Tiny nodule in the right middle lobe abutting the minor f issure.2. Mass in the upper abdomen as previously described. Signed: [employer] Verified Date/Time: 11/25/2017 07:12:43 Reading Location: [address] Body Reading Room Electronically signed by: Sidney STUBBS 11/25/2017 07:12 AM CBC (HEMOGRAM ONLY)2017-11-25 05:03:00* Test Item Value Reference Range Comments WHITE BLOOD CELL COUNT (BEAKER) (test vaed=953) 13.9 K/ L 3.5-10.5 RED BLOOD CELL COUNT (BEAKER) (test yphf=639) 3.22 M/ L 3.93-5.22 HEMOGLOBIN (BEAKER) (test wcpp=232) 8.1 GM/DL 11.2-15.7 HEMATOCRIT (BEAKER) (test ijqn=150) 25.9 % 34.1-44.9 MEAN CORPUSCULAR VOLUME (BEAKER) (test nywl=397) 80.4 fL 79.4-94.8 MEAN CORPUSCULAR HEMOGLOBIN (BEAKER) (test pkwo=571) 25.2 pg 25.6-32.2 MEAN CORPUSCULAR HEMOGLOBIN CONC (BEAKER) (test jghi=844) 31.3 GM/DL 32.2-35.5 RED CELL DISTRIBUTION WIDTH (BEAKER) (test ubzm=053) 16.6 % 11.7-14.4 PLATELET COUNT (BEAKER) (test lvqa=736) 258 K/CU MM 150-450 Discordant PLT result Compared to previous one, Clinical correlation required. MEAN PLATELET VOLUME (BEAKER) (test ngss=571) 10.1 fL 9.4-12.3 NUCLEATED RED BLOOD CELLS (BEAKER) (test azrd=645) 0 /100 WBC 0-0 BASIC METABOLIC [id number] 06:09:00* Test Item Value Reference Range Comments SODIUM (BEAKER) (test rvjw=134) 139 meq/L 136-145 POTASSIUM (BEAKER) (test gdst=119) 4.0 meq/L 3.5-5.1 CHLORIDE (BEAKER) (test cqnv=314) 108 meq/L 98-107 CO2 (BEAKER) (test mtfg=401) 22 meq/L 22-29 BLOOD UREA NITROGEN (BEAKER) (test mnoh=454) 16 mg/dL 7-21 CREATININE (BEAKER) (test icip=997) 0.82 mg/dL 0.57-1.25 GLUCOSE RANDOM (BEAKER) (test jmno=343) 114 mg/dL 70-105 CALCIUM (BEAKER) (test tkbj=702) 9.7 mg/dL 8.4-10.2 EGFR (BEAKER) (test nkhs=9983) 78 mL/min/1.73 sq m ESTIMATED GFR IS NOT ACCURATE CREATININE CLEARANCE IN PREDICTING GLOMERULAR FILTRATION RATE. ESTIMATED GFR IS NOT APPLICABLE FOR DIALYSIS PATIENTS. CBC (HEMOGRAM ONLY)2017-11-24 05:48:00* Test Item Value Reference Range Comments WHITE BLOOD CELL COUNT (BEAKER) (test jsue=959) 6.4 K/ L 3.5-10.5 RED BLOOD CELL COUNT (BEAKER) (test bvfq=144) 3.69 M/ L 3.93-5.22 HEMOGLOBIN (BEAKER) (test qjuh=676) 9.0 GM/DL 11.2-15.7 HEMATOCRIT (BEAKER) (test dizi=252) 29.8 % 34.1-44.9 MEAN CORPUSCULAR VOLUME (BEAKER) (test qqco=409) 80.8 fL 79.4-94.8 MEAN CORPUSCULAR HEMOGLOBIN (BEAKER) (test iyef=871) 24.4 pg 25.6-32.2 MEAN CORPUSCULAR HEMOGLOBIN CONC (BEAKER) (test eeqx=129) 30.2 GM/DL 32.2-35.5 RED CELL DISTRIBUTION WIDTH (BEAKER) (test qplt=853) 17.1 % 11.7-14.4 PLATELET COUNT (BEAKER) (test bxin=812) 367 K/CU MM 150-450 MEAN PLATELET VOLUME (BEAKER) (test thwf=017) 9.9 fL 9.4-12.3 NUCLEATED RED BLOOD CELLS (BEAKER) (test pmyp=085) 0 /100 WBC 0-0 URINE [id number] 14:36:00* Test Item Value Reference Range Comments CULTURE (BEAKER) (test jdxz=1710) No growth BASIC METABOLIC [id number] 06:23:00* Test Item Value Reference Range Comments SODIUM (BEAKER) (test ajhu=242) 139 meq/L 136-145 POTASSIUM (BEAKER) (test aplj=364) 4.2 meq/L 3.5-5.1 Specimen slightly hemolyzed CHLORIDE (BEAKER) (test qxac=523) 109 meq/L 98-107 CO2 (BEAKER) (test apup=330) 20 meq/L 22-29 BLOOD UREA NITROGEN (BEAKER) (test gaie=756) 24 mg/dL 7-21 CREATININE (BEAKER) (test rtvy=912) 0.90 mg/dL 0.57-1.25 Specimen slightly hemolyzed GLUCOSE RANDOM (BEAKER) (test ojks=785) 104 mg/dL 70-105 CALCIUM (BEAKER) (test gmww=635) 9.6 mg/dL 8.4-10.2 EGFR (BEAKER) (test vxvj=6011) 70 mL/min/1.73 sq m ESTIMATED GFR IS NOT ACCURATE CREATININE CLEARANCE IN PREDICTING GLOMERULAR FILTRATION RATE. ESTIMATED GFR IS NOT APPLICABLE FOR DIALYSIS PATIENTS. CBC (HEMOGRAM ONLY)2017-11-23 06:15:00* Test Item Value Reference Range Comments WHITE BLOOD CELL COUNT (BEAKER) (test yjuk=297) 8.7 K/ L 3.5-10.5 RED BLOOD CELL COUNT (BEAKER) (test oeqd=754) 3.70 M/ L 3.93-5.22 HEMOGLOBIN (BEAKER) (test viko=147) 9.1 GM/DL 11.2-15.7 HEMATOCRIT (BEAKER) (test srkk=034) 30.2 % 34.1-44.9 MEAN CORPUSCULAR VOLUME (BEAKER) (test hhtr=043) 81.6 fL 79.4-94.8 MEAN CORPUSCULAR HEMOGLOBIN (BEAKER) (test evpf=626) 24.6 pg 25.6-32.2 MEAN CORPUSCULAR HEMOGLOBIN CONC (BEAKER) (test wbec=891) 30.1 GM/DL 32.2-35.5 RED CELL DISTRIBUTION WIDTH (BEAKER) (test lhwb=128) 17.5 % 11.7-14.4 PLATELET COUNT (BEAKER) (test ulji=046) 397 K/CU MM 150-450 MEAN PLATELET VOLUME (BEAKER) (test tmso=574) 10.4 fL 9.4-12.3 NUCLEATED RED BLOOD CELLS (BEAKER) (test juvl=578) 0 /100 WBC 0-0 CT, [id number] 06:35:00Reason for exam:->FEVERReason for exam:->s/p pancreatic debrideIs the patient ?->NoWhat is the patient's sedation requirement?->No SedationFINAL REPORT CT, ABDOMEN \\T\\ PELVIS, WITHOUT IV CONTRAST INDICATION: Abdominal pain, unspecifiedFEVERs/p pancreatic debride COMPARISON: November 02, 2017 TECHNIQUE: CT of the abdomen and pelvis WITHOUT intravenous contrast. DOSE REDUCTION: Dose modulation, iterative reconstruction, and/or weight-based adjustment of the mA/kV was utilized to reduce the radiation dose to as low as reasonably achievable. FINDINGS:NOTE: Absence of intravenous contrast decreases sensitivity for focal lesions and vascular pathology. Cystic septated hepatic lesion in the region of pancreatic debridement measures 2.2 x 3.5 cm. Edema and inflammatory changes surrounding the region pancreatic head. There is no discernible ductal dilation. The liver is otherwise unremarkable. The patient is post cholecystectomy. No ductal dilation is evident. The spleen, adrenal glands and kidneys demonstrate unremarkable noncontrast appearance. Nonobstructing renal calculi are again noted. There is no bowel dilation. A large stool burden is present in the colon. The appendix is air-filled and demonstrates normal caliber. No ascites is present. Aortic caliber is within normal limits. There is no acute osseous abnormality. IMPRESSION: Limited noncontrast evaluation. Cystic lesion in the infrahepatic region near the pancreatic head may represent surgical sequela or developing abscess in the appropriate clinical context. Further evaluation is limited by lack of intravenous contrast. No bowel obstruction. Large stool bur den may reflect constipation. Signed: JR Pickard Robert MDReport Verified Date/Time: 11/22/2017 06:35:20 Reading Location: [facility] C013Y CT Body Reading Room W/PLT COUNT & AUTO [id number] 05:51:00* Test Item Value Reference Range Comments WHITE BLOOD CELL COUNT (BEAKER) (test rryl=221) 13.4 K/ L 3.5-10.5 RED BLOOD CELL COUNT (BEAKER) (test fkbv=599) 4.09 M/ L 3.93-5.22 HEMOGLOBIN (BEAKER) (test znoz=167) 9.8 GM/DL 11.2-15.7 HEMATOCRIT (BEAKER) (test fsua=051) 32.0 % 34.1-44.9 MEAN CORPUSCULAR VOLUME (BEAKER) (test zkkh=704) 78.2 fL 79.4-94.8 MEAN CORPUSCULAR HEMOGLOBIN (BEAKER) (test azeh=312) 24.0 pg 25.6-32.2 MEAN CORPUSCULAR HEMOGLOBIN CONC (BEAKER) (test rmjr=320) 30.6 GM/DL 32.2-35.5 RED CELL DISTRIBUTION WIDTH (BEAKER) (test vzwh=245) 17.2 % 11.7-14.4 PLATELET COUNT (BEAKER) (test wlgn=250) 429 K/CU MM 150-450 MEAN PLATELET VOLUME (BEAKER) (test lwae=619) 9.8 fL 9.4-12.3 NUCLEATED RED BLOOD CELLS (BEAKER) (test kefz=630) 0 /100 WBC 0-0 NEUTROPHILS RELATIVE PERCENT (BEAKER) (test ifkh=276) 79 % LYMPHOCYTES RELATIVE PERCENT (BEAKER) (test zyuj=240) 14 % MONOCYTES RELATIVE PERCENT (BEAKER) (test irpa=557) 6 % EOSINOPHILS RELATIVE PERCENT (BEAKER) (test gtnn=636) 0 % BASOPHILS RELATIVE PERCENT (BEAKER) (test ncgq=352) 0 % NEUTROPHILS ABSOLUTE COUNT (BEAKER) (test ntwx=511) 10.61 K/ L 1.56-6.13 LYMPHOCYTES ABSOLUTE COUNT (BEAKER) (test qmox=141) 1.83 K/ L 1.18-3.74 MONOCYTES ABSOLUTE COUNT (BEAKER) (test nlpg=455) 0.83 K/ L 0.24-0.36 EOSINOPHILS ABSOLUTE COUNT (BEAKER) (test bvhv=723) 0.01 K/ L 0.04-0.36 BASOPHILS ABSOLUTE COUNT (BEAKER) (test bhmi=590) 0.02 K/ L 0.01-0.08 IMMATURE GRANULOCYTES-RELATIVE PERCENT (BEAKER) (test poqx=4104) 1 % 0-1 BASIC METABOLIC [id number] 05:43:00* Test Item Value Reference Range Comments SODIUM (BEAKER) (test nhaj=150) 140 meq/L 136-145 POTASSIUM (BEAKER) (test ghpa=847) 4.3 meq/L 3.5-5.1 CHLORIDE (BEAKER) (test wtwm=864) 110 meq/L 98-107 CO2 (BEAKER) (test ryec=617) 19 meq/L 22-29 BLOOD UREA NITROGEN (BEAKER) (test lobs=289) 20 mg/dL 7-21 CREATININE (BEAKER) (test pyxb=726) 0.88 mg/dL 0.57-1.25 GLUCOSE RANDOM (BEAKER) (test txjn=987) 134 mg/dL 70-105 CALCIUM (BEAKER) (test dqjd=987) 9.9 mg/dL 8.4-10.2 EGFR (BEAKER) (test mzrb=6304) 72 mL/min/1.73 sq m ESTIMATED GFR IS NOT ACCURATE CREATININE CLEARANCE IN PREDICTING GLOMERULAR FILTRATION RATE. ESTIMATED GFR IS NOT APPLICABLE FOR DIALYSIS PATIENTS. URINALYSIS WITH MICROSCOPIC IF [id number] 05:26:00* Test Item Value Reference Range Comments COLOR (BEAKER) (test xmpp=429) Yellow CLARITY (BEAKER) (test uvnx=421) Clear SPECIFIC GRAVITY UA (BEAKER) (test ztay=584) 1.025 1.001-1.035 PH UA (BEAKER) (test jdbk=774) 7.0 5.0-8.0 PROTEIN UA (BEAKER) (test izaf=076) 30 mg/dL Negative GLUCOSE UA (BEAKER) (test aqhc=195) Negative Negative KETONES UA (BEAKER) (test gayr=575) Negative Negative BILIRUBIN UA (BEAKER) (test fbje=090) Negative Negative BLOOD UA (BEAKER) (test pvff=850) Large Negative NITRITE UA (BEAKER) (test pvuc=114) Negative Negative LEUKOCYTE ESTERASE UA (BEAKER) (test blmk=499) Trace Negative UROBILINOGEN UA (BEAKER) (test jdof=573) 0.2 mg/dL 0.2-1.0 SOURCE(BEAKER) (test bwmn=6838) URINALYSIS [id number] 05:26:00* Test Item Value Reference Range Comments RBC UA (BEAKER) (test culs=008) 408 /HPF WBC UA (BEAKER) (test dlmm=551) 8 /HPF BACTERIA (BEAKER) (test dvku=557) Many MUCUS (BEAKER) (test hxny=9948) Rare SQUAMOUS EPITHELIAL (BEAKER) (test ivnc=960) 5 /HPF CASTS (BEAKER) (test vgkw=8930) 2 /LPF RAD, CHEST, 1 VIEW, NON [id number] 05:12:00Reason for exam:->FEVERShould this be performed at the bedside?->YesFINAL REPORT INDICATION: FEVER COMPARISON: None TECHNIQUE: Single frontal view of the chest. FINDINGS: Lungs and pleura: Clear lungs. No effusion.Heart and mediastinum: Normal heart size. Unremarkable mediastinal contours.Osseous structures: No acute abnormality.Other: Right IJ port catheter terminates over the superior vena cava. The port has been accessed. IMPRESSION: No acute intrathoracic abnormality. Signed: JR Pickrad Robert MDReport Verified Date/Time: 11/22/2017 05:12:11 Reading Location: [facility] B1 C013Y CT Body Reading Room ROBIC [id number] 03:10:00* Test Item Value Reference Range Comments CULTURE (BEAKER) (test vjao=6429) No anaerobes isolated ANAEROBIC [id number] 03:10:00* Test Item Value Reference Range Comments CULTURE ([facility]) (test qsyn=2262) No anaerobes isolated TISSUE [id number] 15:12:00Surgical Pathology Report Case: [id number] Authorizing Provider: Denisse Buchanan MD Collected: 11/07/2017 0817 Ordering Location: [facility] PERIOPERATIVE Received: 11/07/2017 1008 SERVICES Pathologist: Hayley Bedolla MD Specimens: A) - Pancreas, Pancreatic Body mass B) - Soft Tissue, Other, Celiac Locust Mass C) - Pancreas, Pancreatic Abcess This addendum is issued to report immunostains from [employer].RESULT:- NO EVIDENCE OF IgG4 RELATED SCLEROSING DISEASE.Please see attached scanned report for further details.Addendum electronically signed by Hayley Bedolla MD on 11/10/2017 at 3:12 PMA. PANCREAS, BODY MASS, BIOPSY: - ADENOCARCINOMA (SEE COMMENT) - PERINEURAL INVASION IS PRESENT - BACKGROUND PARENCHYMA WITH EXTENSIVE ACUTE AND CHRONIC PANCREATITISB. SOFT TISSUE, CELIAC AXIS MASS, BIOPSY: - CONSISTENT WITH ADENOCARCINOMAC. PANCREAS, ABSCESS, BIOPSY: - CONSISTENT WITH ADENOCARCINOMA Signing Pathologist Direct Phone Line: [phone] signed by Hayley Bedolla MD on 11/10/2017 at 2:50 PMIDC: Dr. Hugo Quinteros and Dr. Dexter Obrien reviewed the case and agree with the above interpretation.[id number] neoplasm of pancreasA. Pancreatic body mass; B. Celiac ax is mass; C. Pancreatic abscessThe specimen is received in three containers of fo rmalin all labeled with the patient's information. Part A labeled "pancreatic beti dy mass" consists of seven bell-white core biopsies ranging in length from 0.6 to 2 cm. Submitted entirely as follows: A1, four cores; A2, three cores. Part B la beled "celiac axis mass" consists of three bell core biopsies ranging from 0.4 to 0.6 cm. Submitted B1. Part C labeled "pancreatic abscess tissue" consists of mu ltiple fragments of bell hemorrhagic soft tissue measuring 1 x 1 x 0.4 cm in aggr egate. Submitted entirely C1. CG/pl A. Sections show atypical glands in a backg round of dense fibrotic stroma with marked acute and chronic inflammation. Focal area with poorly formed glands and single cell infiltration is noted. A small focus of perineural invasion is seen (slide A2). Immunostain for S100 was attemp chandler however tissue in the area of interest exhausted on the deeper level.Immunos tains for CAM5.2 highlights both haphazard and lobulated architecture. Synaptoph ysin and chromogranin highlights areas of islet cell hyperplasia.B,C. The epithe lial proliferation is bland, without significant atypia. Immunostain for CAM5.2 is positive, supporting the above diagnosis.The following special studies were p erformed on this case and the interpretation is incorporated in the diagnostic r eport above:The immunohistochemistry test was developed and its performance cynthia acteristics determined by [facility], Pathology Laboratory. It has not been cleared or approved by the U.S. Food and Drug Administration. The FDA has determined that such clearance or approval is not necessary. The test is used for clinical purposes. It should not be regarded as investigational or for research. This laboratory is certified under the Clinical Laboratory Improvemen t Amendments of 1988 (CLIA-88) as qualified to perform high complexity clinical laboratory testing.SURGICALLY OBTAINED CULTURE + GRAM [id number] 08:42:00* Test Item Value Reference Range Comments CULTURE (BEAKER) (test tden=3669) No growth GRAM STAIN RESULT (BEAKER) (test mhli=7311) <1+ WBCs GRAM STAIN RESULT (BEAKER) (test opez=86098) No organisms seen SURGICALLY OBTAINED CULTURE + GRAM [id number] 08:42:00* Test Item Value Reference Range Comments CULTURE (BEAKER) (test cisy=2727) No growth GRAM STAIN RESULT (BEAKER) (test xhqz=0316) 1+ WBCs GRAM STAIN RESULT (BEAKER) (test usup=10392) No organisms seen CBC (HEMOGRAM ONLY)2017-11-09 05:14:00* Test Item Value Reference Range Comments WHITE BLOOD CELL COUNT (BEAKER) (test gpen=263) 6.1 K/ L 3.5-10.5 RED BLOOD CELL COUNT (BEAKER) (test elvp=961) 3.31 M/ L 3.93-5.22 HEMOGLOBIN (BEAKER) (test ayer=825) 8.2 GM/DL 11.2-15.7 HEMATOCRIT (BEAKER) (test cfzg=516) 26.7 % 34.1-44.9 MEAN CORPUSCULAR VOLUME (BEAKER) (test tpjp=655) 80.7 fL 79.4-94.8 MEAN CORPUSCULAR HEMOGLOBIN (BEAKER) (test chdn=635) 24.8 pg 25.6-32.2 MEAN CORPUSCULAR HEMOGLOBIN CONC (BEAKER) (test ugoh=125) 30.7 GM/DL 32.2-35.5 RED CELL DISTRIBUTION WIDTH (BEAKER) (test lxbd=871) 16.6 % 11.7-14.4 PLATELET COUNT (BEAKER) (test qhfy=882) 283 K/CU MM 150-450 MEAN PLATELET VOLUME (BEAKER) (test kuna=358) 10.2 fL 9.4-12.3 NUCLEATED RED BLOOD CELLS (BEAKER) (test vept=012) 0 /100 WBC 0-0 TISSUE [id number] 16:25:00Surgical Pathology Report Case: [id number] Authorizing Provider: Moreno Menjivar Collected: 10/24/2017 1806 Ordering Location: [address] Received: 10/25/2017 0808 Service Pathologist: Anel Ritchie MD Specimens: A) - Biopsy, Gastric, Random gastric biopsy (gastric erosions ) B) - Pancreas, PANCREATIC MASS FNA IN FORMALIN This addendum is issued to report the result of immunohistochemical stain for Helicobacter pylori on specimen B: - NEGATIVECPT CODE: [id number] electronically signed by Anel Ritchie MD on 11/08/2017 at 4:25 PMA. STOMACH, RANDOM, ENDOSCOPIC BIOPSY: - GASTRIC MUCOSA WITH MILD CHRONIC GASTRITIS , EROSIONS AND REACTIVE CHANGES - OXYNTIC MUCOSA WITH NO PATHOLOGIC ALTERATION - NO HELICOBACTER PYLORI-LIKE ORGANISMS SEEN ON WARTHIN-STARRY STAIN - NO INTESTINAL METAPLASIA, DYSPLASIA OR MALIGNANCY NOTED - IMMUNOHISTOCHEMICAL STAIN FOR HELICOBACTER IS BEING DONE; RESULT WILL BE ISSUED IN ADDENDUM REPORTB. PANCREAS, MASS, UPPER ENDOSCOPY WITH BIOPSY: - ADENOCARCINOMAINTRADEPARTMENTAL CONSULTATION (SPECIMEN B): DR. DERIC SNOW Signing Pathologist Direct Phone Line: [phone] signed by Anel Ritchie MD on 11/01/2017 at 3:18 PMB. Multiple levels examined. There is abundant necrosis and scant tumor in solid sheets displaying mitoses and desmoplastic stroma. The tumor cells and necrotic debris stain positive for AE1/AE3 and CAM5.2. Synaptophysin, chromogranin, beta-catenin and CD20 are negative. The morphology and immunostain favor adenocarcinoma.33493; 32403; 67673 X 2; 23510 X 5; 47307Khpsyoexqb mass, gastric erosions A. Random g astric biopsy. B. Pancreatic mass FNASpecimen is received in two containers of f Canonicalin both labeled with the patient's information.Specimen A: Labeled "gastric biopsy" consists of five fragments of bell tissue ranging from 0.1 to 0.3 cm, yang bmitted in A1.Specimen B: Labeled "pancreatic mass FNA" consists of multiple fra gments of bell hemorrhagic soft tissue measuring 1 x 0.5 x 0.3 cm in aggregate, e ntirely submitted in B1. CG/ew The following special studies were performed on t his case and the interpretation is incorporated in the diagnostic report above:A E1/AE3; CAM5.2; CD 20; SYNAPTOPHYSIN; CHROMOGRANIN, BETA-CATENIN AND HELICOBATER The immunohistochemistry test was developed and its performance characteristics determined by [facility], Pathology Laboratory. It has not bee n cleared or approved by the U.S. Food and Drug Administration. The FDA has dete rmined that such clearance or approval is not necessary. The test is used for cl inical purposes. It should not be regarded as investigational or for research. T his laboratory is certified under the Clinical Laboratory Improvement Amendments of 1988 (CLIA-88) as qualified to perform high complexity clinical laboratory t valeria.SPIN/CONCENTRATION [id number] 13:15:00* Test Item Value Reference Range Comments CONCENTRATION CHARGED (BEAKER) (test kkha=8004) Done [id number] 02:54:00* Test Item Value Reference Range Comments PHOSPHORUS (BEAKER) (test lbgh=200) 2.6 mg/dL 2.3-4.7 [id number] 02:54:00* Test Item Value Reference Range Comments MAGNESIUM (BEAKER) (test ksag=276) 1.6 mg/dL 1.6-2.6 BASIC METABOLIC [id number] 02:54:00* Test Item Value Reference Range Comments SODIUM (BEAKER) (test qoyk=312) 138 meq/L 136-145 POTASSIUM (BEAKER) (test mowc=931) 3.8 meq/L 3.5-5.1 CHLORIDE (BEAKER) (test bydl=841) 107 meq/L 98-107 CO2 (BEAKER) (test bgxt=005) 23 meq/L 22-29 BLOOD UREA NITROGEN (BEAKER) (test saeo=936) 8 mg/dL 7-21 CREATININE (BEAKER) (test hdiq=085) 0.75 mg/dL 0.57-1.25 GLUCOSE RANDOM (BEAKER) (test vowt=703) 138 mg/dL 70-105 CALCIUM (BEAKER) (test pfvs=085) 9.0 mg/dL 8.4-10.2 EGFR (BEAKER) (test dogm=8702) 87 mL/min/1.73 sq m ESTIMATED GFR IS NOT ACCURATE CREATININE CLEARANCE IN PREDICTING GLOMERULAR FILTRATION RATE. ESTIMATED GFR IS NOT APPLICABLE FOR DIALYSIS PATIENTS. CBC W/PLT COUNT & AUTO [id number] 02:37:00* Test Item Value Reference Range Comments WHITE BLOOD CELL COUNT (BEAKER) (test enbs=310) 8.5 K/ L 3.5-10.5 RED BLOOD CELL COUNT (BEAKER) (test xvrr=125) 3.56 M/ L 3.93-5.22 HEMOGLOBIN (BEAKER) (test bvpc=828) 8.8 GM/DL 11.2-15.7 HEMATOCRIT (BEAKER) (test vjua=912) 28.5 % 34.1-44.9 MEAN CORPUSCULAR VOLUME (BEAKER) (test lxpt=663) 80.1 fL 79.4-94.8 MEAN CORPUSCULAR HEMOGLOBIN (BEAKER) (test lysy=201) 24.7 pg 25.6-32.2 MEAN CORPUSCULAR HEMOGLOBIN CONC (BEAKER) (test rwtj=107) 30.9 GM/DL 32.2-35.5 RED CELL DISTRIBUTION WIDTH (BEAKER) (test ervy=718) 16.5 % 11.7-14.4 PLATELET COUNT (BEAKER) (test lcls=575) 319 K/CU MM 150-450 MEAN PLATELET VOLUME (BEAKER) (test pzti=499) 9.4 fL 9.4-12.3 NUCLEATED RED BLOOD CELLS (BEAKER) (test zgug=196) 0 /100 WBC 0-0 NEUTROPHILS RELATIVE PERCENT (BEAKER) (test mdnq=969) 63 % LYMPHOCYTES RELATIVE PERCENT (BEAKER) (test yvcy=125) 23 % MONOCYTES RELATIVE PERCENT (BEAKER) (test qmna=929) 8 % EOSINOPHILS RELATIVE PERCENT (BEAKER) (test ljwn=116) 5 % BASOPHILS RELATIVE PERCENT (BEAKER) (test lixr=843) 0 % NEUTROPHILS ABSOLUTE COUNT (BEAKER) (test evwm=288) 5.36 K/ L 1.56-6.13 LYMPHOCYTES ABSOLUTE COUNT (BEAKER) (test mqtj=502) 1.96 K/ L 1.18-3.74 MONOCYTES ABSOLUTE COUNT (BEAKER) (test kqmg=523) 0.65 K/ L 0.24-0.36 EOSINOPHILS ABSOLUTE COUNT (BEAKER) (test ejak=584) 0.46 K/ L 0.04-0.36 BASOPHILS ABSOLUTE COUNT (BEAKER) (test kqen=862) 0.02 K/ L 0.01-0.08 IMMATURE GRANULOCYTES-RELATIVE PERCENT (BEAKER) (test aabk=6806) 0 % 0-1 [id number] 04:43:00* Test Item Value Reference Range Comments PHOSPHORUS (BEAKER) (test wjnf=628) 3.7 mg/dL 2.3-4.7 [id number] 04:43:00* Test Item Value Reference Range Comments MAGNESIUM (BEAKER) (test yspo=912) 1.8 mg/dL 1.6-2.6 BASIC METABOLIC [id number] 04:43:00* Test Item Value Reference Range Comments SODIUM (BEAKER) (test yobs=701) 140 meq/L 136-145 POTASSIUM (BEAKER) (test upkx=470) 4.0 meq/L 3.5-5.1 CHLORIDE (BEAKER) (test hnxc=046) 109 meq/L 98-107 CO2 (BEAKER) (test mavd=518) 22 meq/L 22-29 BLOOD UREA NITROGEN (BEAKER) (test wxwr=980) 9 mg/dL 7-21 CREATININE (BEAKER) (test pmxr=041) 0.75 mg/dL 0.57-1.25 GLUCOSE RANDOM (BEAKER) (test iaqk=839) 127 mg/dL 70-105 CALCIUM (BEAKER) (test lrxb=715) 9.0 mg/dL 8.4-10.2 EGFR (BEAKER) (test jgva=8096) 87 mL/min/1.73 sq m ESTIMATED GFR IS NOT ACCURATE CREATININE CLEARANCE IN PREDICTING GLOMERULAR FILTRATION RATE. ESTIMATED GFR IS NOT APPLICABLE FOR DIALYSIS PATIENTS. CBC W/PLT COUNT & AUTO [id number] 04:14:00* Test Item Value Reference Range Comments WHITE BLOOD CELL COUNT (BEAKER) (test nwlb=978) 4.8 K/ L 3.5-10.5 RED BLOOD CELL COUNT (BEAKER) (test zeab=133) 3.41 M/ L 3.93-5.22 HEMOGLOBIN (BEAKER) (test loxf=642) 8.5 GM/DL 11.2-15.7 HEMATOCRIT (BEAKER) (test syku=108) 28.1 % 34.1-44.9 MEAN CORPUSCULAR VOLUME (BEAKER) (test jfgg=984) 82.4 fL 79.4-94.8 MEAN CORPUSCULAR HEMOGLOBIN (BEAKER) (test alow=401) 24.9 pg 25.6-32.2 MEAN CORPUSCULAR HEMOGLOBIN CONC (BEAKER) (test bnza=375) 30.2 GM/DL 32.2-35.5 RED CELL DISTRIBUTION WIDTH (BEAKER) (test ssig=434) 16.3 % 11.7-14.4 PLATELET COUNT (BEAKER) (test uezr=683) 285 K/CU MM 150-450 MEAN PLATELET VOLUME (BEAKER) (test xque=622) 9.0 fL 9.4-12.3 NUCLEATED RED BLOOD CELLS (BEAKER) (test rabb=136) 0 /100 WBC 0-0 NEUTROPHILS RELATIVE PERCENT (BEAKER) (test surx=664) 48 % LYMPHOCYTES RELATIVE PERCENT (BEAKER) (test kmpl=488) 36 % MONOCYTES RELATIVE PERCENT (BEAKER) (test lzuj=276) 8 % EOSINOPHILS RELATIVE PERCENT (BEAKER) (test ylgx=601) 7 % BASOPHILS RELATIVE PERCENT (BEAKER) (test gadn=986) 0 % NEUTROPHILS ABSOLUTE COUNT (BEAKER) (test gwae=827) 2.30 K/ L 1.56-6.13 LYMPHOCYTES ABSOLUTE COUNT (BEAKER) (test ephq=200) 1.74 K/ L 1.18-3.74 MONOCYTES ABSOLUTE COUNT (BEAKER) (test aaxc=425) 0.38 K/ L 0.24-0.36 EOSINOPHILS ABSOLUTE COUNT (BEAKER) (test rfsy=514) 0.35 K/ L 0.04-0.36 BASOPHILS ABSOLUTE COUNT (BEAKER) (test tzdh=200) 0.01 K/ L 0.01-0.08 IMMATURE GRANULOCYTES-RELATIVE PERCENT (BEAKER) (test ubcu=1005) 0 % 0-1 CARCINOEMBRYONIC ANTIGEN (CEA)2017-11-06 13:38:00* Test Item Value Reference Range Comments CARCINOEMBRYONIC ANTIGEN (BEAKER) (test nnhn=450) 1.3 ng/mL 0.0-5.0 [id number] 05:54:00* Test Item Value Reference Range Comments PHOSPHORUS (BEAKER) (test pgro=704) 3.9 mg/dL 2.3-4.7 [id number] 05:54:00* Test Item Value Reference Range Comments MAGNESIUM (BEAKER) (test ozhm=508) 1.8 mg/dL 1.6-2.6 BASIC METABOLIC [id number] 05:54:00* Test Item Value Reference Range Comments SODIUM (BEAKER) (test ovoq=771) 139 meq/L 136-145 POTASSIUM (BEAKER) (test uqyk=165) 4.2 meq/L 3.5-5.1 CHLORIDE (BEAKER) (test makl=858) 109 meq/L 98-107 CO2 (BEAKER) (test zrmj=872) 22 meq/L 22-29 BLOOD UREA NITROGEN (BEAKER) (test udzp=852) 10 mg/dL 7-21 CREATININE (BEAKER) (test fbwn=439) 0.72 mg/dL 0.57-1.25 GLUCOSE RANDOM (BEAKER) (test znle=968) 96 mg/dL 70-105 CALCIUM (BEAKER) (test ylbn=651) 9.1 mg/dL 8.4-10.2 EGFR (BEAKER) (test lqpd=1361) 91 mL/min/1.73 sq m ESTIMATED GFR IS NOT ACCURATE CREATININE CLEARANCE IN PREDICTING GLOMERULAR FILTRATION RATE. ESTIMATED GFR IS NOT APPLICABLE FOR DIALYSIS PATIENTS. CBC W/PLT COUNT & AUTO [id number] 05:35:00* Test Item Value Reference Range Comments WHITE BLOOD CELL COUNT (BEAKER) (test pqdi=633) 5.7 K/ L 3.5-10.5 RED BLOOD CELL COUNT (BEAKER) (test oakj=425) 3.30 M/ L 3.93-5.22 HEMOGLOBIN (BEAKER) (test sueh=564) 8.3 GM/DL 11.2-15.7 HEMATOCRIT (BEAKER) (test vtny=698) 27.0 % 34.1-44.9 MEAN CORPUSCULAR VOLUME (BEAKER) (test gwlh=913) 81.8 fL 79.4-94.8 MEAN CORPUSCULAR HEMOGLOBIN (BEAKER) (test ixha=644) 25.2 pg 25.6-32.2 MEAN CORPUSCULAR HEMOGLOBIN CONC (BEAKER) (test pial=718) 30.7 GM/DL 32.2-35.5 RED CELL DISTRIBUTION WIDTH (BEAKER) (test oais=284) 16.3 % 11.7-14.4 PLATELET COUNT (BEAKER) (test acor=347) 289 K/CU MM 150-450 MEAN PLATELET VOLUME (BEAKER) (test yrte=034) 8.9 fL 9.4-12.3 NUCLEATED RED BLOOD CELLS (BEAKER) (test rksy=245) 0 /100 WBC 0-0 NEUTROPHILS RELATIVE PERCENT (BEAKER) (test qypt=751) 43 % LYMPHOCYTES RELATIVE PERCENT (BEAKER) (test bgpy=777) 39 % MONOCYTES RELATIVE PERCENT (BEAKER) (test otcu=209) 10 % EOSINOPHILS RELATIVE PERCENT (BEAKER) (test eomn=725) 8 % BASOPHILS RELATIVE PERCENT (BEAKER) (test mzas=196) 0 % NEUTROPHILS ABSOLUTE COUNT (BEAKER) (test fbzz=810) 2.43 K/ L 1.56-6.13 LYMPHOCYTES ABSOLUTE COUNT (BEAKER) (test pqzm=301) 2.23 K/ L 1.18-3.74 MONOCYTES ABSOLUTE COUNT (BEAKER) (test piqj=288) 0.55 K/ L 0.24-0.36 EOSINOPHILS ABSOLUTE COUNT (BEAKER) (test fpcl=994) 0.43 K/ L 0.04-0.36 BASOPHILS ABSOLUTE COUNT (BEAKER) (test lbqd=056) 0.02 K/ L 0.01-0.08 IMMATURE GRANULOCYTES-RELATIVE PERCENT (BEAKER) (test dpfh=9168) 0 % 0-1 [id number] 06:35:00* Test Item Value Reference Range Comments PHOSPHORUS (BEAKER) (test cafe=099) 3.0 mg/dL 2.3-4.7 [id number] 06:35:00* Test Item Value Reference Range Comments MAGNESIUM (BEAKER) (test tjhu=771) 1.9 mg/dL 1.6-2.6 BASIC METABOLIC [id number] 06:35:00* Test Item Value Reference Range Comments SODIUM (BEAKER) (test bafz=841) 140 meq/L 136-145 POTASSIUM (BEAKER) (test vgkv=316) 4.1 meq/L 3.5-5.1 CHLORIDE (BEAKER) (test czsl=330) 109 meq/L 98-107 CO2 (BEAKER) (test zumb=331) 20 meq/L 22-29 BLOOD UREA NITROGEN (BEAKER) (test jsep=744) 11 mg/dL 7-21 CREATININE (BEAKER) (test kpkl=467) 0.78 mg/dL 0.57-1.25 GLUCOSE RANDOM (BEAKER) (test yphj=894) 110 mg/dL 70-105 CALCIUM (BEAKER) (test hhha=764) 9.0 mg/dL 8.4-10.2 EGFR (BEAKER) (test tpgv=0026) 83 mL/min/1.73 sq m ESTIMATED GFR IS NOT ACCURATE CREATININE CLEARANCE IN PREDICTING GLOMERULAR FILTRATION RATE. ESTIMATED GFR IS NOT APPLICABLE FOR DIALYSIS PATIENTS. CBC W/PLT COUNT & AUTO [id number] 06:13:00* Test Item Value Reference Range Comments WHITE BLOOD CELL COUNT (BEAKER) (test emmo=052) 5.5 K/ L 3.5-10.5 RED BLOOD CELL COUNT (BEAKER) (test ozpc=074) 3.32 M/ L 3.93-5.22 HEMOGLOBIN (BEAKER) (test udwr=268) 8.2 GM/DL 11.2-15.7 HEMATOCRIT (BEAKER) (test giys=227) 26.8 % 34.1-44.9 MEAN CORPUSCULAR VOLUME (BEAKER) (test afdl=900) 80.7 fL 79.4-94.8 MEAN CORPUSCULAR HEMOGLOBIN (BEAKER) (test gphx=103) 24.7 pg 25.6-32.2 MEAN CORPUSCULAR HEMOGLOBIN CONC (BEAKER) (test sxvz=837) 30.6 GM/DL 32.2-35.5 RED CELL DISTRIBUTION WIDTH (BEAKER) (test jaao=586) 16.1 % 11.7-14.4 PLATELET COUNT (BEAKER) (test vroe=766) 337 K/CU MM 150-450 MEAN PLATELET VOLUME (BEAKER) (test fxcx=670) 9.6 fL 9.4-12.3 NUCLEATED RED BLOOD CELLS (BEAKER) (test kkek=548) 0 /100 WBC 0-0 NEUTROPHILS RELATIVE PERCENT (BEAKER) (test wrqm=601) 48 % LYMPHOCYTES RELATIVE PERCENT (BEAKER) (test jfbr=435) 37 % MONOCYTES RELATIVE PERCENT (BEAKER) (test hwlu=382) 7 % EOSINOPHILS RELATIVE PERCENT (BEAKER) (test wnsa=328) 8 % BASOPHILS RELATIVE PERCENT (BEAKER) (test nhwa=460) 0 % NEUTROPHILS ABSOLUTE COUNT (BEAKER) (test lebd=252) 2.64 K/ L 1.56-6.13 LYMPHOCYTES ABSOLUTE COUNT (BEAKER) (test yyzl=352) 2.05 K/ L 1.18-3.74 MONOCYTES ABSOLUTE COUNT (BEAKER) (test kers=213) 0.36 K/ L 0.24-0.36 EOSINOPHILS ABSOLUTE COUNT (BEAKER) (test ygtx=541) 0.43 K/ L 0.04-0.36 BASOPHILS ABSOLUTE COUNT (BEAKER) (test vsju=288) 0.02 K/ L 0.01-0.08 IMMATURE GRANULOCYTES-RELATIVE PERCENT (BEAKER) (test lgas=9271) 0 % 0-1 URINE [id number] 10:28:00* Test Item Value Reference Range Comments CULTURE (BEAKER) (test gumb=0039) No growth URINE [id number] 09:26:00* Test Item Value Reference Range Comments CULTURE (BEAKER) (test lmrs=7058) No growth [id number] 07:30:00* Test Item Value Reference Range Comments PHOSPHORUS (BEAKER) (test yvlw=011) 3.6 mg/dL 2.3-4.7 [id number] 07:30:00* Test Item Value Reference Range Comments MAGNESIUM (BEAKER) (test psbx=211) 2.2 mg/dL 1.6-2.6 BASIC METABOLIC [id number] 07:30:00* Test Item Value Reference Range Comments SODIUM (BEAKER) (test zdwf=555) 143 meq/L 136-145 POTASSIUM (BEAKER) (test cqan=101) 4.3 meq/L 3.5-5.1 CHLORIDE (BEAKER) (test ylfy=583) 113 meq/L 98-107 CO2 (BEAKER) (test npuh=136) 23 meq/L 22-29 BLOOD UREA NITROGEN (BEAKER) (test ycbq=404) 13 mg/dL 7-21 CREATININE (BEAKER) (test bmwt=052) 0.75 mg/dL 0.57-1.25 GLUCOSE RANDOM (BEAKER) (test zokj=096) 113 mg/dL 70-105 CALCIUM (BEAKER) (test wvuh=977) 8.6 mg/dL 8.4-10.2 EGFR (BEAKER) (test wksr=3220) 87 mL/min/1.73 sq m ESTIMATED GFR IS NOT ACCURATE CREATININE CLEARANCE IN PREDICTING GLOMERULAR FILTRATION RATE. ESTIMATED GFR IS NOT APPLICABLE FOR DIALYSIS PATIENTS. CBC W/PLT COUNT & AUTO [id number] 07:06:00* Test Item Value Reference Range Comments WHITE BLOOD CELL COUNT (BEAKER) (test gzzy=558) 5.1 K/ L 3.5-10.5 RED BLOOD CELL COUNT (BEAKER) (test sovv=761) 3.33 M/ L 3.93-5.22 HEMOGLOBIN (BEAKER) (test xafw=503) 8.3 GM/DL 11.2-15.7 HEMATOCRIT (BEAKER) (test fgco=518) 27.2 % 34.1-44.9 MEAN CORPUSCULAR VOLUME (BEAKER) (test kzex=041) 81.7 fL 79.4-94.8 MEAN CORPUSCULAR HEMOGLOBIN (BEAKER) (test rfrv=717) 24.9 pg 25.6-32.2 MEAN CORPUSCULAR HEMOGLOBIN CONC (BEAKER) (test whkl=933) 30.5 GM/DL 32.2-35.5 RED CELL DISTRIBUTION WIDTH (BEAKER) (test qvqa=015) 16.2 % 11.7-14.4 PLATELET COUNT (BEAKER) (test tlzp=588) 318 K/CU MM 150-450 MEAN PLATELET VOLUME (BEAKER) (test pihb=645) 9.4 fL 9.4-12.3 NUCLEATED RED BLOOD CELLS (BEAKER) (test yges=581) 0 /100 WBC 0-0 NEUTROPHILS RELATIVE PERCENT (BEAKER) (test eayu=954) 37 % LYMPHOCYTES RELATIVE PERCENT (BEAKER) (test kdqo=057) 46 % MONOCYTES RELATIVE PERCENT (BEAKER) (test qqha=358) 10 % EOSINOPHILS RELATIVE PERCENT (BEAKER) (test jmhj=652) 7 % BASOPHILS RELATIVE PERCENT (BEAKER) (test egrc=276) 0 % NEUTROPHILS ABSOLUTE COUNT (BEAKER) (test wsjg=670) 1.89 K/ L 1.56-6.13 LYMPHOCYTES ABSOLUTE COUNT (BEAKER) (test dfwu=053) 2.35 K/ L 1.18-3.74 MONOCYTES ABSOLUTE COUNT (BEAKER) (test njlf=303) 0.49 K/ L 0.24-0.36 EOSINOPHILS ABSOLUTE COUNT (BEAKER) (test tyie=206) 0.37 K/ L 0.04-0.36 BASOPHILS ABSOLUTE COUNT (BEAKER) (test wjmf=596) 0.01 K/ L 0.01-0.08 IMMATURE GRANULOCYTES-RELATIVE PERCENT (BEAKER) (test ueoj=9490) 0 % 0-1 ANG, NON-TUNNELED CATH/PICC >5 Y.O.2017-11-03 17:34:00Place port if PICC line not possibleReason for exam:->for chemotherapyFINAL REPORT Right upper extremity PICC insertion, 11/03/2017. History: Pancreatic cancer, chemotherapy access. Manager Mining: Lowell Louis MD. Head Girls Golf Coach: Francisco Javier. Modality: Sonography and fluoroscopy. Sedation: None. Anesthesia: Two percent Lidocaine without epinephrine. Approach: Right brachial vein Estimated blood loss: < 5 cc. Specimen: None. Fluoroscopy Time: 6.6 min.Reference Air Kerma (Ka, r): 6.1 mGy. Technique: Informed written consent was obtained. Discussion of risks, benefits, and alternatives were made with the patient. The patient expressed understanding and agreed to proceed. A universal timeout was performed prior to starting the procedure. All elements maximal sterile barrier technique was utilized for this procedure, including utilization of sterile scrub solution for skin prep, a large sterile sheet to cover the areas of the patient that were not prepped, and hand hygiene, mask, head covering, and sterile gown for performing radiologist and scrub technologist. The skin was anesthetized with 2% lidocaine. Ultrasound evaluation showed a patent and compressible right brachial vein, which was punctured under direct real-time ultrasound guidance with a micropuncture ne edle. An ultrasound image was saved to PACS. A 0.018 inch wire was placed thro ugh the needle into the right atrium. A 5 German peel-away sheath was placed. The 5 German double-lumen PICC line was measured and cut at 38 cm, and advanced through the sheath, with its distal tip terminating in the cavoatrial junction. The peel-away sheath was removed. The ports were flushed and aspirated easily f ollowing placement. The PICC line was secured with suture material. Vital signs were monitored throughout the procedure by a nurse, and remained stable. The p atient tolerated the procedure well and left the department in the same conditio n. Results: Spot radiograph of the chest demonstrates the new right upper extremity PICC line to lie in the expected position with its tip overlying the c avoatrial junction. Impressio n: Successful, unco mplicated placement of a right upper extremity PICC using sonographic and fluoro scopic guidance. The catheter is ready for immediate use. Signed: HeribertoDarrick jarrell MDReport Verified Date/Time: 11/03/2017 17:34:59 Reading Location: [facility] P048 Angio Body Reading Room U/S, RENAL, [id number] 04:02:00Reason for exam:- >Kidney stonesShould this be performed at the bedside?->NoFINAL REPORT U/S, RENAL, COMPLETE CLINICAL INDICATION: "Kidney stones" COMPARISON: CT abdomen and pelvis yesterday TECHNIQUE: The kidneys and urinary bladder were evaluated using real time jean scale and color Doppler sonography. FINDINGS:Right kidney: Echogenic pyramids compatible with medullary nephrocalcinosis. Small stones in the inferior pole of the kidney, nono bstructive, and better seen on prior CT. Left kidney: Echogenic renal pyrami ds compatible with medullary nephrocalcinosis. Renal Vasculature: Doppler interr ogation reveals preserved vascular flow in the main renal arteries and veins asher aterally. The visualized portions of the abdominal aorta and IVC are unremarkabl e. Urinary bladder: Unremarkable. IMPRESSION: Medullary nephrocalcinosis.Nono bstructing small stones in the inferior pole of the right kidney.No hydronephros is. Signed: Vikash Calvillo MDReport Verified Date/Time: 11/03/2017 04:02:42 Re ading Location: [facility] C013X Ortho Consult Reading Room Electronically sign ed by: VIKASH CALVILLO MD on 11/03/2017 04:02 AM ANG, NON-TUNNELED CATH >5 Y.O. [id number] 15:38:00Reason for exam:->venous accessPICC line Versus Central line for poor venous accessFINAL REPORT Central Venous Catheter Placement: Physician providing service: RoundAge: 36, Diagnosis: Requiring IV access, Indication: The coronary IV access Modality: Sonography and fluoroscopyConscious Sedation: No sedation Anesthesia: Two percent Lidocaine injected subcutaneously at the insertion site.Fluoro time (in minutes) and number of images: 0.6 minutes 3.1 mGy five images Approach: Right internal jugular vein For maximum sterile barrier protection a mask, cap, sterile gloves, sterile drape, sterile gown, and a cutaneous antiseptic was utilized. Technique: After informed written consent was obtained, the patient was prepped and draped in the usual sterile manner. Access was obtained using sonographic guidance. Ultrasound images were sent to PACS to document patency and compressibility. The right internal jugular vein was catheterized. A guide wire was advanced centrally. A 7 German 20 cm triple lumen catheter was advanced with its distal tip terminating in the right atrium. The ports were flushed and aspirated easily following placement. The catheter was sutured to the skin to secure its placement. Vital signs were monitored throughout the procedure by a nurse, and remained stable. The patient tolerated the procedure well and left the department in the same condition. Results: Spot radiograph of the chest demonstrates the new central line terminating in the right atrium. Impression: Successful, uncomplicated sonographic and fluoroscopic guided placement of a right internal jugular central venous catheter terminating in the right atrium. Signed: Farideh Edwardeport Verified Date/Time: 15:38:02 Reading Location: [facility] Radiology Reading Room [facility] signed by: FARIDEH EDWARD M.D. on 11/02/2017 03:[address], [id number] 05:35:00Reason for exam:->ABDOMINAL PAINIs the patient ?->NoWhat is the patient's sedation requirement?->No SedationFINAL REPORT CT, ABDOMEN \\T\\ PELVIS, WITHOUT IV CONTRAST INDICATION: "Abdominal pain, unspecifiedABDOMINAL PAIN" COMPARISON: None TECHNIQUE: Noncontrast axially oriented images were obtained from the diaphragms through the pelvis. Coronal and sagittal reformats were provided. DOSE REDUCTION: Dose modulation, iterative reconstruction, and/or weight-based adjustment of the mA/kV was utilized to reduce the radiation dose to as low as reasonably achievable. FINDINGS: Lung bases are grossly clear. Prior CTs demonstrated pancreatitis with pseudocyst formation at the dorsal aspect of the pancreatic body/head junction. There is redemonstration of this presumed pseudocyst. Surrounding inflammatory changes similar to slightly improved compared to the prior exam. No new areas of peripancreatic inflammatory change are identified. I cannot evaluate for vas cular complications on this noncontrast exam.Redemonstration of medullary nephro calcinosis.The remainder of the solid abdominal viscera are unremarkable. No a cute abnormality of the hollow abdominal viscera. No focal lytic or destructiv e bony process. IMPRESSION:Redemonstration of a dorsal body/head pancreatic pseu docyst. Overall size and degree of peripancreatic inflammatory change is similar to slightly improved compared to the prior exam.No new areas of focal peripancr eatic inflammatory change.I cannot evaluate for vascular complications on this n oncontrast exam.Medullary nephrocalcinosis. Signed: Vikash Calvillo MDReport Shae ified Date/Time: 11/02/2017 05:35:00 Reading Location: [facility] C013X Ortho Consu Reading Room D DRUG SCREEN, [id number] 04:23:00* Test Item Value Reference Range Comments BARBITURATE URINE (BEAKER) (test xxxg=914) Negative Negative BENZODIAZEPINE SCREEN URINE (BEAKER) (test flhm=790) Positive Negative COCAINE (METAB.) SCREEN (BEAKER) (test itfc=5647) Negative Negative METHADONE SCREEN (BEAKER) (test nexk=9564) Negative Negative OPIATE SCREEN URINE (BEAKER) (test nqdk=193) Positive Negative CANNABINOID SCREEN URINE (BEAKER) (test qdtm=068) Negative Negative AMPH/METHAMPH SCREEN (BEAKER) (test qyxs=8002) Negative Negative PHENCYCLIDINE SCREEN URINE (BEAKER) (test nsmi=294) Negative Negative OXYCODONE SCREEN URINE (BEAKER) (test jptf=6353) Negative Negative DRUG CUTOFF CONC.Cocaine 300 ng/mL Cannabinoid 50 ng/mL Benzodiazepine 200 ng/mLBarbiturate 200 ng/mLPh encyclidine 25 ng/mLOpiate 300 ng/mLMethadone 300 ng/mLAmphetamine/ 1000 ng/mL MethamphetamineOxycodone 300 ng/mLThis assay provides an unconfirmed qualitative test result for the cli nical management of patients in emergency situations. Chain of custody not maint ained. Some bmwn-lqm-gktmpqc medications, as well as adulterants, may cause inac curate results. Clinical correlation should be applied. A more comprehensive selene g screen or confirmation of a detected drug may be performed upon request.LIPASE 2017-11-02 03:59:00* Test Item Value Reference Range Comments LIPASE (BEAKER) (test dnkx=865) 10 U/L 8-78 [id number] 03:59:00* Test Item Value Reference Range Comments AMYLASE (BEAKER) (test vcsd=953) 49 U/L 25-125 BASIC METABOLIC [id number] 03:59:00* Test Item Value Reference Range Comments SODIUM (BEAKER) (test gxpf=669) 140 meq/L 136-145 POTASSIUM (BEAKER) (test amcf=717) 4.1 meq/L 3.5-5.1 CHLORIDE (BEAKER) (test tbaz=106) 111 meq/L 98-107 CO2 (BEAKER) (test pvpf=569) 18 meq/L 22-29 BLOOD UREA NITROGEN (BEAKER) (test vqya=519) 14 mg/dL 7-21 CREATININE (BEAKER) (test cmsc=730) 0.99 mg/dL 0.57-1.25 GLUCOSE RANDOM (BEAKER) (test qaqv=883) 91 mg/dL 70-105 CALCIUM (BEAKER) (test fcrk=608) 10.0 mg/dL 8.4-10.2 EGFR (BEAKER) (test zhff=5007) 63 mL/min/1.73 sq m ESTIMATED GFR IS NOT ACCURATE CREATININE CLEARANCE IN PREDICTING GLOMERULAR FILTRATION RATE. ESTIMATED GFR IS NOT APPLICABLE FOR DIALYSIS PATIENTS. HEPATIC FUNCTION [id number] 03:59:00* Test Item Value Reference Range Comments TOTAL PROTEIN (BEAKER) (test wizl=087) 7.8 gm/dL 6.0-8.3 ALBUMIN (BEAKER) (test agky=6449) 4.1 g/dL 3.5-5.0 BILIRUBIN TOTAL (BEAKER) (test oygu=244) 0.1 mg/dL 0.2-1.2 BILIRUBIN DIRECT (BEAKER) (test qswo=362) 0.1 mg/dL 0.1-0.5 ALKALINE PHOSPHATASE (BEAKER) (test ggzk=612) 101 U/L 40-150 AST (SGOT) (BEAKER) (test djdk=609) 21 U/L 5-34 ALT (SGPT) (BEAKER) (test jksa=660) 22 U/L 6-55 URINALYSIS W/ [id number] 03:51:00* Test Item Value Reference Range Comments COLOR (BEAKER) (test kjrg=333) Light Yellow CLARITY (BEAKER) (test muds=988) Clear SPECIFIC GRAVITY UA (BEAKER) (test skrm=122) 1.008 1.001-1.035 PH UA (BEAKER) (test ifao=590) 5.5 5.0-8.0 PROTEIN UA (BEAKER) (test octd=725) Negative Negative GLUCOSE UA (BEAKER) (test dunl=073) Negative Negative KETONES UA (BEAKER) (test kqru=126) Negative Negative BILIRUBIN UA (BEAKER) (test qhfp=095) Negative Negative BLOOD UA (BEAKER) (test kwle=123) Negative Negative NITRITE UA (BEAKER) (test yzeu=283) Negative Negative LEUKOCYTE ESTERASE UA (BEAKER) (test gqac=524) Negative Negative UROBILINOGEN UA (BEAKER) (test vsmm=798) 0.2 mg/dL 0.2-1.0 RBC UA (BEAKER) (test qopi=824) < /HPF WBC UA (BEAKER) (test hlgr=656) 5 /HPF BACTERIA (BEAKER) (test qeki=856) Moderate MUCUS (BEAKER) (test uprb=1388) Rare SQUAMOUS EPITHELIAL (BEAKER) (test yggx=221) 1 /HPF SOURCE(BEAKER) (test ibwq=7288) CBC W/PLT COUNT & AUTO [id number] 03:45:00* Test Item Value Reference Range Comments WHITE BLOOD CELL COUNT (BEAKER) (test hqyf=172) 6.5 K/ L 3.5-10.5 RED BLOOD CELL COUNT (BEAKER) (test pcts=539) 3.71 M/ L 3.93-5.22 HEMOGLOBIN (BEAKER) (test jpme=642) 9.3 GM/DL 11.2-15.7 HEMATOCRIT (BEAKER) (test gmbc=881) 29.6 % 34.1-44.9 MEAN CORPUSCULAR VOLUME (BEAKER) (test mkcj=737) 79.8 fL 79.4-94.8 MEAN CORPUSCULAR HEMOGLOBIN (BEAKER) (test wvja=521) 25.1 pg 25.6-32.2 MEAN CORPUSCULAR HEMOGLOBIN CONC (BEAKER) (test jdto=509) 31.4 GM/DL 32.2-35.5 RED CELL DISTRIBUTION WIDTH (BEAKER) (test fzja=852) 16.6 % 11.7-14.4 PLATELET COUNT (BEAKER) (test wcvi=326) 451 K/CU MM 150-450 MEAN PLATELET VOLUME (BEAKER) (test cwni=988) 9.6 fL 9.4-12.3 NUCLEATED RED BLOOD CELLS (BEAKER) (test sfav=801) 0 /100 WBC 0-0 NEUTROPHILS RELATIVE PERCENT (BEAKER) (test pgae=402) 48 % LYMPHOCYTES RELATIVE PERCENT (BEAKER) (test pyvi=959) 37 % MONOCYTES RELATIVE PERCENT (BEAKER) (test aftw=535) 8 % EOSINOPHILS RELATIVE PERCENT (BEAKER) (test xvfu=778) 6 % BASOPHILS RELATIVE PERCENT (BEAKER) (test fpms=767) 1 % NEUTROPHILS ABSOLUTE COUNT (BEAKER) (test yapg=133) 3.10 K/ L 1.56-6.13 LYMPHOCYTES ABSOLUTE COUNT (BEAKER) (test comk=092) 2.40 K/ L 1.18-3.74 MONOCYTES ABSOLUTE COUNT (BEAKER) (test evjs=917) 0.54 K/ L 0.24-0.36 EOSINOPHILS ABSOLUTE COUNT (BEAKER) (test jwic=725) 0.40 K/ L 0.04-0.36 BASOPHILS ABSOLUTE COUNT (BEAKER) (test lhcj=686) 0.03 K/ L 0.01-0.08 IMMATURE GRANULOCYTES-RELATIVE PERCENT (BEAKER) (test ezhp=6274) 1 % 0-1 AFB Culture and [id number] 16:41:00Specimen/Source: Tissue/RIGHT FOREARMCollected: 09/06/2017 16:09 Status: Final Last Updated: 10/26/2017 16:41 MKI-Suwkm-Szubpzcsuwju (Final) (Final) 09/07/17 Pending 09/08/17 No acid fast bacilli seen Culture Result (Final) (Final) 09/07/17 Pending 09/08/17 No acid fast bacilli isolated to date 09/08/17 Culture results to follow. Final reports of negative culturescan be expected in approximately six weeks. Positive cultures arereported immediately. 09/11/17 The culture is being reprocessed due to overgrowth of anon-acid fast organism. The final culture report may be delayed. 09/13/17 No Mycobacterium species isolated after 1 week incubation 09/20/17 No Mycobacterium species iso lated after 2 weeks incubation 10/02/17 No Mycobacterium species isolated afte r 3 weeks incubation 10/13/17 No Mycobacterium species isolated after 4 weeks i ncubation 10/22/17 No Mycobacterium species isolated after 5 weeks incubation 10/26/17 No Mycobacterium species isolated after 6 weeks incubation Perform ed at [address] [id number] Reverse Unit Operator: Alfreda Willis M.D. CLIA:[id number] FINE NEEDLE ASPIRATION BY [id number] 14:30:00Medical Cytology Report Case: [id number] Authorizing Provider: Moreno Menjivar Collected: 10/24/2017 1841 Ordering Location: [address] Received: 10/25/2017 0915 Service Pathologist: Camden Obrien MD Specimen: Pancreas, pancreatic cyst PANCREAS CYST FNA BY CLINICIAN (CYTOSPINS AND CELL BLOCK OF ASPIRATE): - NO MALIGNANT CELLS IDENTIFIED - The mucin stain is negative Signing Pathologist Direct Phone Line: [phone] signed by Camden Obrien MD on 10/26/2017 at 2:30 PMThe smears and cell block show degenerated cellular material with acute inflammation.Please see cases [id number] and [id number], 54716, 716949.6 cm cystic lesion in the pancreatic bodyPANCREAS CYST FNA15 mls in cytorich red; 4 cytospins, 1 mucin stain, cell blockCollected: [id number]: [id number] following special studies were performed on this case and the interpretation is incorporated in the d iagnostic report above:[facility], [facility], [address] [place] [id number], [facility], Department of Pathology, [address] [place] [id number] , UWPW NEEDLE ASPIRATION BY [id number] 14:28:00Medical Cytology Report Case: [id number] Authorizing Provider: Tiara Morenoinga Mckeon Collected: 10/24/2017 1741 Ordering Location: [address] Received: 10/25/2017 0915 Service Pathologist: Camden Obrien MD Specimen: Pancreas, pancreatic mass PANCREAS BODY MASS FNA BY CLINICIAN (CYTOSPINS AND CELL BLOCK OF ASPIRATE): - NEGATIVE FOR MALIGNANCY Signing Pathologist Direct Phone Line: [phone] signed by Camden Obrien MD on 10/26/2017 at 2:28 PMPredominantly degenerated cellular ma terial and some acute inflammation.Please see cases [id number] and [id number], 28154(2.2 x 2.5 cm) oval mass in the pancreatic bodyPANCREAS BODY MASS FNA40 mls in cytorich red; 4 cytospins, cell blockCollected: [id number]: [id number], Department of Pathology, [address] [place] [address], [facility], Department of Pat hology, [address] [place] [address], CCORC METABOLIC [id number] 12:22:00* Test Item Value Reference Range Comments SODIUM (BEAKER) (test dosy=746) 136 meq/L 136-145 POTASSIUM (BEAKER) (test xmxo=252) 3.8 meq/L 3.5-5.1 CHLORIDE (BEAKER) (test idls=724) 107 meq/L 98-107 CO2 (BEAKER) (test eiri=499) 22 meq/L 22-29 BLOOD UREA NITROGEN (BEAKER) (test tqai=063) 7 mg/dL 7-21 CREATININE (BEAKER) (test wpgy=530) 0.70 mg/dL 0.57-1.25 GLUCOSE RANDOM (BEAKER) (test lyez=070) 125 mg/dL 70-105 CALCIUM (BEAKER) (test tsuq=246) 8.6 mg/dL 8.4-10.2 EGFR (BEAKER) (test fmrm=6353) 94 mL/min/1.73 sq m ESTIMATED GFR IS NOT ACCURATE CREATININE CLEARANCE IN PREDICTING GLOMERULAR FILTRATION RATE. ESTIMATED GFR IS NOT APPLICABLE FOR DIALYSIS PATIENTS. FINE NEEDLE ASPIRATE (FNA) [id number] 11:00:00* Test Item Value Reference Range Comments CYTOLOGY RESULT POINTER (BEAKER) (test paxb=3505) See Separate Report FINE NEEDLE ASPIRATE (FNA) [id number] 11:00:00* Test Item Value Reference Range Comments CYTOLOGY RESULT POINTER (BEAKER) (test zvhk=6683) See Separate Report BLOOD [id number] 11:00:00* Test Item Value Reference Range Comments CULTURE (BEAKER) (test mngr=0503) No growth in [address], ABDOMEN - PELVIS, PANCREAS [id number] 09:50:00Reason for exam:-> Evaluate pancreatic tail massFINAL REPORT TECHNIQUE: CT of the abdomen and pelvis WITHOUT and WITH intravenous contrast and WITHOUT oral contrast. Dose modulation, iterative reconstruction, and/or weight-based adjustment of the mA/kV was utilized to reduce the radiation dose to as low as reasonably achievable. INDICATION: 36-year-old woman with pancreatic tail mass. COMPARISON: Outside abdomen and pelvis CT 05/07/2017. FINDINGS: LOWER THORAX: Unremarkable. HEPATOBILIARY: 0.3 cm hypodensity in segment V is too small to characterize, but likely represents a benign lesion such as a cyst. Gallbladder is unremarkable. No biliary ductal dilatation.SPLEEN: No splenomegaly.PANCREAS: 2.1 x 2.2 x 2.8 cm hypodense mass in the pancreatic body with suspected internal enhancement. Adjacent 2.1 x 2.5 x 2.1 cm nonenhancing hypodense lesion in the pancreatic neck/body junction. The pancreas distally is atrophied without significant pancreatic ductal dilatation in this region. ADRENALS: No adrenal nodules.KIDNEYS/URETERS: No hydronephrosis or solid mass lesions. 0.7 cm cyst in the left interpolar region. Nonobstructing 0.3 cm calculi in the right lower pole.PELVIC ORGANS/BLADDER: Bladder is underdistended, limiting its evaluation. Prior hysterectomy. Ovaries are grossly unremarkable. PERITONEUM/RETROPERITONEUM: No free air or fluid.LYMPH NODES: No lymphadenopat hy.VESSELS: The portion of the splenic vein abutting the pancreatic body mass is thrombosed. The pancreatic mass abuts the splenic artery, common hepatic artery , and a portion of the main portal vein. GI TRACT: No distention or wall thicken ing. BONES AND SOFT TISSUES: Osseous structures are unremarkable. Partially visu alized bilateral breast prostheses. IMPRESSION:2.8 cm hypodense mass in the dumont creatic body with thrombosis of the adjacent splenic vein. Primary pancreatic ne oplasm such as adenocarcinoma or solid pseudopapillary neoplasm cannot be exclud ed. Adjacent 2.5 cm cystic lesion in the pancreatic neck/body may represent a c ystic/necrotic component of the aforementioned mass. Other differential consider ations include intraductal papillary mucinous neoplasm (IPMN) and pseudocyst. No nobstructing right renal calculus. Signed: Wilfrid Martinez MDReport Verified Bonifacio e/Time: 10/24/2017 09:50:24 Reading Location: [facility] Diagnostic Imaging Reading R [facility] - SLSWV F1 1120 Electronically signed by: WILFRID MARTINEZ MD on 09:50 AM BASIC METABOLIC [id number] 06:27:00* Test Item Value Reference Range Comments SODIUM (BEAKER) (test qzvn=152) 139 meq/L 136-145 POTASSIUM (BEAKER) (test jbnu=409) 3.8 meq/L 3.5-5.1 CHLORIDE (BEAKER) (test gnaa=340) 106 meq/L 98-107 CO2 (BEAKER) (test epgi=547) 24 meq/L 22-29 BLOOD UREA NITROGEN (BEAKER) (test hsfc=508) 8 mg/dL 7-21 CREATININE (BEAKER) (test kasg=652) 0.72 mg/dL 0.57-1.25 GLUCOSE RANDOM (BEAKER) (test uipp=677) 116 mg/dL 70-105 CALCIUM (BEAKER) (test gfhz=036) 8.9 mg/dL 8.4-10.2 EGFR (BEAKER) (test biyz=3544) 91 mL/min/1.73 sq m ESTIMATED GFR IS NOT ACCURATE CREATININE CLEARANCE IN PREDICTING GLOMERULAR FILTRATION RATE. ESTIMATED GFR IS NOT APPLICABLE FOR DIALYSIS PATIENTS. CBC W/PLT COUNT & AUTO [id number] 06:18:00* Test Item Value Reference Range Comments WHITE BLOOD CELL COUNT (BEAKER) (test nwqr=595) 4.1 K/ L 3.5-10.5 RED BLOOD CELL COUNT (BEAKER) (test phwd=904) 3.47 M/ L 3.93-5.22 HEMOGLOBIN (BEAKER) (test djxc=556) 8.7 GM/DL 11.2-15.7 HEMATOCRIT (BEAKER) (test dnvz=658) 28.1 % 34.1-44.9 MEAN CORPUSCULAR VOLUME (BEAKER) (test yawe=104) 81.0 fL 79.4-94.8 MEAN CORPUSCULAR HEMOGLOBIN (BEAKER) (test afsm=190) 25.1 pg 25.6-32.2 MEAN CORPUSCULAR HEMOGLOBIN CONC (BEAKER) (test jubv=093) 31.0 GM/DL 32.2-35.5 RED CELL DISTRIBUTION WIDTH (BEAKER) (test nrto=043) 16.0 % 11.7-14.4 PLATELET COUNT (BEAKER) (test iljf=585) 190 K/CU MM 150-450 MEAN PLATELET VOLUME (BEAKER) (test zcdx=524) 10.8 fL 9.4-12.3 NUCLEATED RED BLOOD CELLS (BEAKER) (test isva=673) 0 /100 WBC 0-0 NEUTROPHILS RELATIVE PERCENT (BEAKER) (test ltjm=629) 36 % LYMPHOCYTES RELATIVE PERCENT (BEAKER) (test ftxv=273) 41 % MONOCYTES RELATIVE PERCENT (BEAKER) (test hoxn=636) 12 % EOSINOPHILS RELATIVE PERCENT (BEAKER) (test kswc=864) 11 % BASOPHILS RELATIVE PERCENT (BEAKER) (test vchx=617) 0 % NEUTROPHILS ABSOLUTE COUNT (BEAKER) (test buok=825) 1.47 K/ L 1.56-6.13 LYMPHOCYTES ABSOLUTE COUNT (BEAKER) (test hsvg=629) 1.64 K/ L 1.18-3.74 MONOCYTES ABSOLUTE COUNT (BEAKER) (test acjw=513) 0.48 K/ L 0.24-0.36 EOSINOPHILS ABSOLUTE COUNT (BEAKER) (test lhiy=470) 0.44 K/ L 0.04-0.36 BASOPHILS ABSOLUTE COUNT (BEAKER) (test iaid=810) 0.01 K/ L 0.01-0.08 IMMATURE GRANULOCYTES-RELATIVE PERCENT (BEAKER) (test qtae=5896) 0 % 0-1 URINE [id number] 10:45:00* Test Item Value Reference Range Comments CULTURE (BEAKER) (test oina=0096) ESCHERICHIA COLI >100,000 col/mL Escherichia coli Amikacin (test code=1) Ampicillin + Sulbactam (test code=6) Aztreonam (test code=32) Cefepime (test code=51) Cefoxitin (test code=68) Ceftazidime (test code=27) Ceftriaxone (test code=52) Ertapenem (test code=38) Gentamicin (test code=18) Levofloxacin (test code=22) Meropenem (test code=34) Nitrofurantoin (test code=23) Piperacillin + Tazobactam (test code=29) Tetracycline (test code=2) Tobramycin (test code=25) Trimethoprim + Sulfamethoxazole (test code=47) U/S, RENAL, [id number] 09:34:00Reason for exam:->nephrolithiasisFINAL REPORT Ultrasound of the Kidneys Clinical History: Nephrolithiasis Discussion: Sonographic evaluation of the kidneys is performed. Right kidney: Measures 8.6 x 4.5 x 4.9 cm, with cortical thickness of 0.5 cm. Normal cortical echogenicity. No mass. No shadowing calculus. No hydronephro sis. Left kidney: Measures 9.7 x 5.5 x 4.6 cm, with cortical thickness of 0.7 cm . Normal cortical echogenicity. No mass. No shadowing calculus. No hydroneph rosis. Limited doppler evaluation of bilateral main renal arteries and veins dem onstrate patency. Bladder: Unremarkable. Impression: No obstructing renal calc yuliana identified. No hydronephrosis or proximal hydroureter. Mildly atrophic kidne ys, which may be seen with chronic kidney disease. Signed: Lowell Colon MDReport Verified Date/Time: 10/21/2017 09:34:29 Reading Location: [facility] C0Y CT Body Reading Room W/PLT COUNT & AUTO [id number] 04:15:00* Test Item Value Reference Range Comments WHITE BLOOD CELL COUNT (BEAKER) (test ybcl=777) 6.0 K/ L 3.5-10.5 RED BLOOD CELL COUNT (BEAKER) (test zgzk=423) 3.59 M/ L 3.93-5.22 HEMOGLOBIN (BEAKER) (test bzze=163) 9.0 GM/DL 11.2-15.7 HEMATOCRIT (BEAKER) (test shfm=271) 28.9 % 34.1-44.9 MEAN CORPUSCULAR VOLUME (BEAKER) (test nrws=196) 80.5 fL 79.4-94.8 MEAN CORPUSCULAR HEMOGLOBIN (BEAKER) (test enhw=161) 25.1 pg 25.6-32.2 MEAN CORPUSCULAR HEMOGLOBIN CONC (BEAKER) (test xpye=966) 31.1 GM/DL 32.2-35.5 RED CELL DISTRIBUTION WIDTH (BEAKER) (test aosn=346) 15.9 % 11.7-14.4 PLATELET COUNT (BEAKER) (test rtbv=033) 232 K/CU MM 150-450 MEAN PLATELET VOLUME (BEAKER) (test pmez=109) 10.8 fL 9.4-12.3 NUCLEATED RED BLOOD CELLS (BEAKER) (test jyuk=801) 0 /100 WBC 0-0 NEUTROPHILS RELATIVE PERCENT (BEAKER) (test iruj=355) 44 % LYMPHOCYTES RELATIVE PERCENT (BEAKER) (test allj=020) 36 % MONOCYTES RELATIVE PERCENT (BEAKER) (test xlkp=568) 10 % EOSINOPHILS RELATIVE PERCENT (BEAKER) (test rdjc=702) 9 % BASOPHILS RELATIVE PERCENT (BEAKER) (test qpwb=336) 1 % NEUTROPHILS ABSOLUTE COUNT (BEAKER) (test fvyl=281) 2.63 K/ L 1.56-6.13 LYMPHOCYTES ABSOLUTE COUNT (BEAKER) (test tkuv=072) 2.15 K/ L 1.18-3.74 MONOCYTES ABSOLUTE COUNT (BEAKER) (test jrfa=194) 0.60 K/ L 0.24-0.36 EOSINOPHILS ABSOLUTE COUNT (BEAKER) (test firu=856) 0.54 K/ L 0.04-0.36 BASOPHILS ABSOLUTE COUNT (BEAKER) (test yqvo=450) 0.03 K/ L 0.01-0.08 IMMATURE GRANULOCYTES-RELATIVE PERCENT (BEAKER) (test zvvm=5787) 0 % 0-1 BASIC METABOLIC [id number] 04:11:00* Test Item Value Reference Range Comments SODIUM (BEAKER) (test tpff=157) 139 meq/L 136-145 POTASSIUM (BEAKER) (test dusf=570) 3.8 meq/L 3.5-5.1 CHLORIDE (BEAKER) (test nfpo=200) 109 meq/L 98-107 CO2 (BEAKER) (test dmzm=427) 21 meq/L 22-29 BLOOD UREA NITROGEN (BEAKER) (test halr=979) 12 mg/dL 7-21 CREATININE (BEAKER) (test lcis=011) 0.82 mg/dL 0.57-1.25 GLUCOSE RANDOM (BEAKER) (test rohx=188) 141 mg/dL 70-105 CALCIUM (BEAKER) (test crch=689) 9.1 mg/dL 8.4-10.2 EGFR (BEAKER) (test nzcv=1379) 78 mL/min/1.73 sq m ESTIMATED GFR IS NOT ACCURATE CREATININE CLEARANCE IN PREDICTING GLOMERULAR FILTRATION RATE. ESTIMATED GFR IS NOT APPLICABLE FOR DIALYSIS PATIENTS. BASIC METABOLIC [id number] 09:15:00* Test Item Value Reference Range Comments SODIUM (BEAKER) (test ntvd=162) 138 meq/L 136-145 POTASSIUM (BEAKER) (test fvop=934) 4.0 meq/L 3.5-5.1 Specimen slightly hemolyzed CHLORIDE (BEAKER) (test pypt=450) 110 meq/L 98-107 CO2 (BEAKER) (test adhl=435) 22 meq/L 22-29 BLOOD UREA NITROGEN (BEAKER) (test fcpr=450) 13 mg/dL 7-21 CREATININE (BEAKER) (test zlat=002) 0.75 mg/dL 0.57-1.25 Specimen slightly hemolyzed GLUCOSE RANDOM (BEAKER) (test mnmz=569) 106 mg/dL 70-105 CALCIUM (BEAKER) (test uvqv=421) 8.9 mg/dL 8.4-10.2 EGFR (BEAKER) (test nfnl=7222) 87 mL/min/1.73 sq m ESTIMATED GFR IS NOT ACCURATE CREATININE CLEARANCE IN PREDICTING GLOMERULAR FILTRATION RATE. ESTIMATED GFR IS NOT APPLICABLE FOR DIALYSIS PATIENTS. URINALYSIS W/ [id number] 07:05:00* Test Item Value Reference Range Comments COLOR (BEAKER) (test txpb=054) Yellow CLARITY (BEAKER) (test zxdi=927) Hazy SPECIFIC GRAVITY UA (BEAKER) (test ggny=318) 1.013 1.001-1.035 PH UA (BEAKER) (test cxyc=089) 6.0 5.0-8.0 PROTEIN UA (BEAKER) (test feah=951) Negative Negative GLUCOSE UA (BEAKER) (test wdkz=473) Negative Negative KETONES UA (BEAKER) (test aezm=426) Negative Negative BILIRUBIN UA (BEAKER) (test mbby=679) Negative Negative BLOOD UA (BEAKER) (test igrp=259) Negative Negative NITRITE UA (BEAKER) (test fxvx=364) Positive Negative LEUKOCYTE ESTERASE UA (BEAKER) (test wjhr=309) Large Negative UROBILINOGEN UA (BEAKER) (test phkx=329) 0.2 mg/dL 0.2-1.0 RBC UA (BEAKER) (test xtub=209) 0 /HPF WBC UA (BEAKER) (test lhce=235) 149 /HPF BACTERIA (BEAKER) (test kupq=568) Many MUCUS (BEAKER) (test rvyb=1784) Many SQUAMOUS EPITHELIAL (BEAKER) (test jkqo=434) 4 /HPF HYALINE CASTS (BEAKER) (test gnms=094) 2 /LPF SOURCE(BEAKER) (test llyg=8045) Urine, Clean Catch CBC W/PLT COUNT & AUTO [id number] 06:47:00* Test Item Value Reference Range Comments WHITE BLOOD CELL COUNT (BEAKER) (test bsip=511) 4.1 K/ L 3.5-10.5 RED BLOOD CELL COUNT (BEAKER) (test scsc=591) 3.60 M/ L 3.93-5.22 HEMOGLOBIN (BEAKER) (test ozlr=160) 8.9 GM/DL 11.2-15.7 HEMATOCRIT (BEAKER) (test plsh=408) 29.3 % 34.1-44.9 MEAN CORPUSCULAR VOLUME (BEAKER) (test clan=870) 81.4 fL 79.4-94.8 MEAN CORPUSCULAR HEMOGLOBIN (BEAKER) (test mvid=499) 24.7 pg 25.6-32.2 MEAN CORPUSCULAR HEMOGLOBIN CONC (BEAKER) (test more=345) 30.4 GM/DL 32.2-35.5 RED CELL DISTRIBUTION WIDTH (BEAKER) (test lvsq=897) 16.5 % 11.7-14.4 PLATELET COUNT (BEAKER) (test ozoy=797) 223 K/CU MM 150-450 MEAN PLATELET VOLUME (BEAKER) (test thtq=452) 11.1 fL 9.4-12.3 NUCLEATED RED BLOOD CELLS (BEAKER) (test omzm=433) 0 /100 WBC 0-0 NEUTROPHILS RELATIVE PERCENT (BEAKER) (test onbw=097) 37 % LYMPHOCYTES RELATIVE PERCENT (BEAKER) (test ptjy=839) 44 % MONOCYTES RELATIVE PERCENT (BEAKER) (test kgda=759) 9 % EOSINOPHILS RELATIVE PERCENT (BEAKER) (test wdru=626) 10 % BASOPHILS RELATIVE PERCENT (BEAKER) (test pjiu=108) 1 % NEUTROPHILS ABSOLUTE COUNT (BEAKER) (test zjtj=777) 1.51 K/ L 1.56-6.13 LYMPHOCYTES ABSOLUTE COUNT (BEAKER) (test vvqm=257) 1.78 K/ L 1.18-3.74 MONOCYTES ABSOLUTE COUNT (BEAKER) (test rvvo=235) 0.38 K/ L 0.24-0.36 EOSINOPHILS ABSOLUTE COUNT (BEAKER) (test oocm=291) 0.39 K/ L 0.04-0.36 BASOPHILS ABSOLUTE COUNT (BEAKER) (test tefe=872) 0.02 K/ L 0.01-0.08 IMMATURE GRANULOCYTES-RELATIVE PERCENT (BEAKER) (test cmzh=8885) 0 % 0-1 CBC W/PLT COUNT & AUTO [id number] 18:02:00* Test Item Value Reference Range Comments WHITE BLOOD CELL COUNT (BEAKER) (test vevb=086) 5.8 K/ L 3.5-10.5 RED BLOOD CELL COUNT (BEAKER) (test rely=322) 3.88 M/ L 3.93-5.22 HEMOGLOBIN (BEAKER) (test dppn=039) 9.9 GM/DL 11.2-15.7 HEMATOCRIT (BEAKER) (test okei=776) 30.9 % 34.1-44.9 MEAN CORPUSCULAR VOLUME (BEAKER) (test yfmm=549) 79.6 fL 79.4-94.8 MEAN CORPUSCULAR HEMOGLOBIN (BEAKER) (test jcfg=296) 25.5 pg 25.6-32.2 MEAN CORPUSCULAR HEMOGLOBIN CONC (BEAKER) (test tumq=173) 32.0 GM/DL 32.2-35.5 RED CELL DISTRIBUTION WIDTH (BEAKER) (test ksdz=414) 15.9 % 11.7-14.4 PLATELET COUNT (BEAKER) (test nyjr=179) 225 K/CU MM 150-450 MEAN PLATELET VOLUME (BEAKER) (test cejs=314) 9.8 fL 9.4-12.3 NUCLEATED RED BLOOD CELLS (BEAKER) (test dxyk=971) 0 /100 WBC 0-0 NEUTROPHILS RELATIVE PERCENT (BEAKER) (test veai=646) 39 % LYMPHOCYTES RELATIVE PERCENT (BEAKER) (test xnms=628) 43 % MONOCYTES RELATIVE PERCENT (BEAKER) (test ftkt=882) 9 % EOSINOPHILS RELATIVE PERCENT (BEAKER) (test lhki=114) 9 % BASOPHILS RELATIVE PERCENT (BEAKER) (test wjjo=032) 0 % NEUTROPHILS ABSOLUTE COUNT (BEAKER) (test rawn=441) 2.23 K/ L 1.56-6.13 LYMPHOCYTES ABSOLUTE COUNT (BEAKER) (test djvj=657) 2.48 K/ L 1.18-3.74 MONOCYTES ABSOLUTE COUNT (BEAKER) (test ykxh=526) 0.51 K/ L 0.24-0.36 EOSINOPHILS ABSOLUTE COUNT (BEAKER) (test jnfp=389) 0.50 K/ L 0.04-0.36 BASOPHILS ABSOLUTE COUNT (BEAKER) (test uijr=560) 0.02 K/ L 0.01-0.08 IMMATURE GRANULOCYTES-RELATIVE PERCENT (BEAKER) (test rizs=3501) 0 % 0-1 [id number] 17:57:00* Test Item Value Reference Range Comments LIPASE (BEAKER) (test hopo=756) 10 U/L 8-78 [id number] 17:57:00* Test Item Value Reference Range Comments AMYLASE (BEAKER) (test doyd=510) 43 U/L 25-125 HEPATIC FUNCTION [id number] 17:57:00* Test Item Value Reference Range Comments TOTAL PROTEIN (BEAKER) (test mkks=676) 7.4 gm/dL 6.0-8.3 ALBUMIN (BEAKER) (test mspb=6074) 4.3 g/dL 3.5-5.0 BILIRUBIN TOTAL (BEAKER) (test rwyn=594) 0.3 mg/dL 0.2-1.2 BILIRUBIN DIRECT (BEAKER) (test hmpv=449) 0.1 mg/dL 0.1-0.5 ALKALINE PHOSPHATASE (BEAKER) (test pyzk=424) 95 U/L 40-150 AST (SGOT) (BEAKER) (test sukh=703) 20 U/L 5-34 ALT (SGPT) (BEAKER) (test bnah=020) 18 U/L 6-55 BASIC METABOLIC [id number] 17:57:00* Test Item Value Reference Range Comments SODIUM (BEAKER) (test jpvg=935) 138 meq/L 136-145 POTASSIUM (BEAKER) (test fpis=216) 4.0 meq/L 3.5-5.1 CHLORIDE (BEAKER) (test oeqp=255) 107 meq/L 98-107 CO2 (BEAKER) (test stjj=359) 24 meq/L 22-29 BLOOD UREA NITROGEN (BEAKER) (test stia=976) 11 mg/dL 7-21 CREATININE (BEAKER) (test hvlb=130) 0.75 mg/dL 0.57-1.25 GLUCOSE RANDOM (BEAKER) (test bzou=179) 94 mg/dL 70-105 CALCIUM (BEAKER) (test sjxe=141) 9.2 mg/dL 8.4-10.2 EGFR (BEAKER) (test bxmf=3039) mL/min/1.73 sq m INSUFFICIENT CLINICAL DATA TO CALCULATE ESTIMATED GFR. URINALYSIS W/ [id number] 12:49:00* Test Item Value Reference Range Comments COLOR (BEAKER) (test dnhp=587) Light Yellow CLARITY (BEAKER) (test ttlp=458) Hazy SPECIFIC GRAVITY UA (BEAKER) (test uxda=774) 1.013 1.001-1.035 PH UA (BEAKER) (test pfoy=047) 6.0 5.0-8.0 PROTEIN UA (BEAKER) (test acpe=948) 10 mg/dL Negative GLUCOSE UA (BEAKER) (test loej=432) Negative Negative KETONES UA (BEAKER) (test gtto=667) Negative Negative BILIRUBIN UA (BEAKER) (test fuow=396) Negative Negative BLOOD UA (BEAKER) (test fpcu=762) Moderate Negative NITRITE UA (BEAKER) (test vegc=392) Positive Negative LEUKOCYTE ESTERASE UA (BEAKER) (test ufci=905) Small Negative UROBILINOGEN UA (BEAKER) (test iwrz=324) 0.2 mg/dL 0.2-1.0 RBC UA (BEAKER) (test eath=781) 28 /HPF WBC UA (BEAKER) (test rscy=813) 11 /HPF BACTERIA (BEAKER) (test bvbe=771) Many MUCUS (BEAKER) (test jocw=7339) Few SQUAMOUS EPITHELIAL (BEAKER) (test gmpx=715) 6 /HPF HYALINE CASTS (BEAKER) (test ulbx=952) 4 /LPF SOURCE(BEAKER) (test cneh=5134) Fungus Culture with [id number] 14:33:00Specimen/Source: Tissue/RIGHT FOREARMCollected: 09/06/2017 16:09 Status: Final Last Updated: 10/15/2017 14:33 Fungal Smear Result (Final) (Final) 09/07/17 Pending 09/08/17 No fungal elements seen Culture Result (Final) (Final) 09/07/17 Pending 09/08/17 No fungi isolated to date 09/14/17 No fungal growth at 1 week 09/20/17 No fungal growth at 2 weeks 09/28/17 No fungal growth at 3 weeks 10/13/17 No fungal growth at 4 weeks Performed at [facility] [address] [address] Reverse Unit Operator: Alfreda Willis M.D. CLIA:[id number] Culture, Wound [id number] 15:24:00 Specimen/Source: Wound/LEFT ARMCollected: 09/26/2017 17:29 Status: Final La st Updated: 10/03/2017 15:24 Gram Stain (Final) (Final) 09/27/17 Many White blood cells seen, Rare epithelial cells, Noorganisms seen Culture Re sult (Final) (Final) 09/27/17 Aerobic culture: pending. 09/27/17 Anaerobic c ulture: pending. 09/28/17 Aerobic culture: No Growth 1 day 09/28/17 Anaerobi c culture: pending. 09/29/17 Aerobic culture: No growth after 2 days 8 Anaerobic culture: No anaerobes isolated to date, continuing incubation 09/30/17 Aerobic culture: No growth after 3 days 09/30/17 Anaerobic culture: No anaerobes isolated to date, continuing incubation 10/01/17 Aerobic culture : No growth after 4 days 10/01/17 Anaerobic culture: No anaerobes isolated to date, continuing incubation 10/02/17 Aerobic culture: No growth after 5 day s 10/02/17 Anaerobic culture: No anaerobes isolated \\S\\Performed at [facility] \\S\\[address] \\S\\[place] [address] \\S\\ \\ S\\Reverse Unit Operator: Alfreda Willis M.D. \\S\\CLIA:[id number] Result before yvonne wu by YANG on 10/03/2017 15:24: Culture Result (Final) (Final) 09/27/17 Aerobic culture: pending. 09/27/17 Anaerobic culture: pending. 09/28/17 Aero bic culture: No Growth 1 day 09/28/17 Anaerobic culture: pending. 09/29/17 A erobic culture: No growth after 2 days 09/29/17 Anaerobic culture: No anaerobe s isolated to date, continuing incubation 09/30/17 Aerobic culture: No grow th after 3 days 09/30/17 Anaerobic culture: No anaerobes isolated to date, con tinuing incubation 10/01/17 Aerobic culture: No growth after 4 days 10/01 Anaerobic culture: No anaerobes isolated to date, continuing incubation 10/02/17 Aerobic culture: No growth after 5 days 10/02/17 Anaerobic culture: No anaerobes isolated \\S[facility] \\S\\[address] [facility] [id number] \\S\\ \\S\\Dir: Paulie Stevenson MD [facility], Urine, [id number] 16:39:00* Test Item Value Reference Range Comments Preg Qual [Ur] (test code=HUHCG) Negative Negative Culture, Wound [id number] 15:16:00Specimen/Source: Tissue/RIGHT FOREARMCollected: 09/06/2017 16:09 Status: Final Last Updated: 09/14/2017 15:16 Gram Stain (Final) (Final) 09/07/17 Moderate White blood cells seen, No epithelial cells seen, No organisms seen Culture Result (Final) (Final) 09/07/17 Aerobic culture: pending 09/07/17 Anaerobic culture: pending 09/08/17 Aerobic culture: Scant growth of Staphylococcus aureus, susceptibility test report to follow 09/08/17 Anaerobic culture: pending 09/10/17 No anaerobes isolated to date, continuing incubation 09/10/17 S. aureus Amox/Clavunate Sensitive <4/2 Amp/Sulbactam Sensitive <8/4 Ciprofloxacin Sensitive <1 Clindamycin Resistant >4 Doxycycline Sensitive Erythromycin Resistant >4 Gentamicin Resistant >8 Levofloxacin Sensitive <1 Moxifloxacin Sensitive <=0.5 Oxacillin Sensitive <0.25 Tetracycline Sensitive <4 Trimethoprim/Sulfa Sensitive <0.5/9.5 Vancomycin Sensitive 2 Note: Oxacillin-susceptible stpahylococci are susceptible to other pencillinase-stable penicillins (e.g. Methillicin, Nafcillin), beta lactam/beta-lactamase inhibitor combinations, and cephems with cephems with staphylococcal indications, including Cefazolin. 09/11/17 Anaerobic culture: No anaerobes isolated to date, continuing incubation 09/12/17 No anaerobes isolated. Performed at [facility] [address] [address] Reverse Unit Operator: Alfreda Willis M.D. CLIA:[id number] Culture, Wound [id number] 15:21:00Specimen/Source: Wound/RIGHT FOREARMCollected: 09/06/2017 16:09 Status: Final Last Updated: 09/12/2017 15:21 Gram Stain (Final) (Final) 09/07/17 Few White blood cells seen, Rare epithelial cells, Noorganisms seen Culture Result (Final) (Final) 09/07/17 Aerobic culture: pending 09/07/17 Anaerobic culture: pending 09/08/17 Aerobic culture: No growth after 1 day 09/08/17 Anaerobic culture: pending 09/09/17 Aerobic culture: No growth after 2 days 09/10/17 Anaerobic culture: No anaerobes isolated to date, continuing incubation 09/10/17 Aerobic culture: Scant growth Staphylococcus aureus: Amox/Clavulanate (Susceptible) <4/2 Amp/Sulbactam (Susceptible) <8/4 Ciprofloxacin (Susceptible) <1 Clindamycin (Resistant) >4 Doxycycline (Susceptible) Erthyromycin (Resistant) >4 Gentamicin (Susceptible) <4 Levofloxacin (Susceptible) <1 Moxifloxacin (Susceptible) <=0.5 Oxacillin (Susceptible) <0.25 (Note: Oxacillin-susceptiblestaphylococci are susceptible to other penicillinase-stable penicillins (e.g. Methicllin, Nafcillin), beta-lactam/beta-lactamase inhibitor combinations, and cephems with staphylococcal indications, including Cefazolin. Tetraycycline (Susceptible) <4 Trimethoprim/Sulfa (Susceptible) <=0.5/9.5 Vancomycin (Susceptible) 1 09/11/17 Anaerobic culture: No anaerobes isolated to date, continuing incubation 09/12/17 No anaerobes isolated. Performed at [facility] [address] [address] Reverse Unit Operator: Alfreda Willis M.D. CLIA:[id number] [facility], Urine, [id number] 15:53:00* Test Item Value Reference Range Comments Preg Qual [Ur] (test code=HUHCG) Negative Negative FOREARM RIGHT 2 VIEW [place] [address] Patient Name: BELIA VIGIL MR #: [id number] : 1980 Age/Sex: 36/F Req #: [id number] Adm Physician: Ordered by: KYM DWYER [employer]BBER [employer]T [employer]PL[employer]ER Report #: [id number] Location: ER Room/Bed: Procedure: [id number] DX/FOREARM RIGHT 2 VIEW Ex am Date: 08/30/17 Exam Time: 1345 REPORT STATUS : Signed PROCEDURE: X-RAY RIGHT FOREARM, TWO VIEWS, PORTABLE COMPARIS ON: None. INDICATIONS: LACERATION OF WRIST FINDINGS: There are no fractures, dislocations, lytic or blastic lesions. The bones are well- mineralized. There is a laceration of the dorsum of the proximal forearm without associated radiopaque foreign body. A density in the ventral m id forearm measures 4 mm without overlying skin laceration. This is visible o nly on lateral projection. CONCLUSION: 1. No osseous injury. 2 . No radiopaque foreign body in the dorsal forearm. 3. Potential foreign bod y in the ventral mid forearm. Please correlate for laceration in this region . Dictated by: Soni Ray M.D. on 08/30/2017 at 14:13 Electronically approved by: Soni Ray M.D. on 08/30/2017 at 14:13 Dictated By: SONI RAY MD [id number] Transcribed By: KALINA on 08/30/17 1413 CO PY TO: KYM DWYER NP
[2019-05-21] MEDS ORDERED: ONDANSETRON HCL INJ 2MG/ML 2ML 2 MG/ML VIAL IM NR (17:30)
--- NOTE | 2019-05-21 17:38 | NUR ---
ARRIVED WITH PORT A CATH ACCESSED.
[2019-05-21 18:28] LABS: BASOPHILS % 0.5 % (0.0-1.0); EOSINOPHILS # (AUTO) 0.7 (0.0-0.4); EOSINOPHILS % 10.5 % (0.0-6.0); HEMATOCRIT 35.1 % (34.2-44.1); HEMOGLOBIN 11.4 g/dL (12.0-16.0); LYMPHOCYTES # (AUTO) 2.4 (1.0-3.2); LYMPHOCYTES % 38.4 % (18.0-39.1); MEAN CORPUSCULAR HEMOGLOBIN 28.4 pg (28-32); MEAN CORPUSCULAR HGB CONC 32.5 g/dL (31-35); MEAN CORPUSCULAR VOLUME 87.5 fL (81-99); MONOCYTES # (AUTO) 0.9 (0.2-0.8); MONOCYTES % 14.3 % (4.4-11.3); NEUTROPHILS # (AUTO) 2.3 (2.1-6.9); NEUTROPHILS % 36.1 % (38.7-80.0); PLATELET COUNT 430 x10e3/uL (140-360); RED BLOOD COUNT 4.01 x10e6/uL (3.6-5.1); RED CELL DISTRIBUTION WIDTH 14.1 % (11.7-14.4)
[2019-05-21] MEDS ORDERED: HYDROMORPHONE 1MG/1ML INJ IV NR (18:30)
[2019-05-21] MEDS ORDERED: PROMETHAZINE 25MG/ NS 50ML (IV) IV ONE (18:30)
[2019-05-21 18:47] LABS: ALANINE AMINOTRANSFERASE 40 IU/L (0-55); ALBUMIN 4.1 g/dL (3.5-5.0); ALBUMIN/GLOBULIN RATIO 1.2 (0.8-2.0); ALKALINE PHOSPHATASE 109 IU/L (40-150); ANION GAP 11.6 mmol/L (8-16); BLOOD UREA NITROGEN 8 mg/dL (7-26); BUN/CREATININE RATIO 10 (6-25); CALCIUM 9.5 mg/dL (8.4-10.2); CARBON DIOXIDE 22 mmol/L (22-29); CHLORIDE 110 mmol/L (98-107); EST GLOMERULAR FILTRATION RATE > 60 ML/MIN (60-); GLUCOSE 89 mg/dL (74-118); LIPASE 42 U/L (8-78); POTASSIUM 3.6 mmol/L (3.5-5.1); SODIUM 140 mmol/L (136-145)
--- NOTE | 2019-05-21 19:23 | Diagnostic Imaging Report ---
EXAMINATION: CT of the abdomen and pelvis without contrast. TECHNIQUE: Helical CT images of the abdomen and pelvis were performed from the lung bases to the lesser trochanters. No intravenous contrast was given per renal stone protocol. Coronal and sagittal reformatted images were obtained.Dose modulation, iterative reconstruction, and/or weight based adjustment of the mA/kV was utilized to reduce the radiation dose to as low as reasonably achievable. COMPARISON: None. CLINICAL HISTORY:Abdominal pain DISCUSSION: ABSENCE OF INTRAVENOUS CONTRAST DECREASES SENSITIVITY FOR DETECTION OF FOCAL LESIONS AND VASCULAR PATHOLOGY. ABDOMEN/PELVIS: LOWER THORAX: Lung base atelectasis. Breast augmentation. HEPATOBILIARY:Hepatic steatosis. Cholecystectomy. No ductal dilatation. SPLEEN: No splenomegaly. PANCREAS: Stable appearance of the pancreas with poor visualization. ADRENALS: No adrenal nodules. KIDNEYS/URETERS: Bilateral nonobstructing nephrolithiasis. PELVIC ORGANS/BLADDER: The bladder is normal. Uterus is absent. PERITONEUM/RETROPERITONEUM: No free air or fluid. LYMPH NODES: No intra-abdominal,retroperitoneal, pelvic or inguinal lymphadenopathy. VESSELS: Limited evaluation. GI TRACT: No distention or wall thickening. BONES AND SOFT TISSUES: No bony destructive lesions. No soft tissue abnormalities. IMPRESSION: No acute CT finding. Bilateral nonobstructing renal calculi. Signed by: Dr. Galdino Viramontes M.D. on 05/21/2019 7:20 PM
[2019-05-21 19:54] LABS: BILIRUBIN,URINE NEGATIVE (NEGATIVE); CLARITY,URINE SL CLOUDY (CLEAR); COLOR,URINE YELLOW (YELLOW); KETONES,URINE NEGATIVE (NEGATIVE); LEUKOCYTE ESTERASE ,URINE NEGATIVE (NEGATIVE); NITRITE,URINE NEGATIVE (NEGATIVE); PROTEIN,URINE DIPSTICK NEGATIVE (NEGATIVE); URINE UROBILINOGEN 0.2 mg/dL (0.2 - 1)
[2019-05-21 20:14] LABS: BACTERIA,URINE RARE /HPF; RBC,URINE 0-5 /HPF (0-5)
== END 2019-05-21 20:51 | disposition home or self-care (01) ==
LOC: ER 17:13
DX: R10.12 Left upper quadrant pain (principal); R11.2 Nausea with vomiting, unspecified; R19.7 Diarrhea, unspecified
CPT/HCPCS: 36415; 74176; 80053; 81001; 83690; 84702; 85025; 93005; 99284; J1170; J2550; J7030

== ENCOUNTER 2019-09-23 20:24 | Emergency (ER) | payer OTHER ==
[~2019-09-23] VITALS: Ht 152.4 cm; Wt 67.1 kg
== END 2019-09-23 20:53 | disposition home or self-care (01) ==
LOC: ER 20:24
DX: G89.29 Other chronic pain (principal); Z76.5 Malingerer [conscious simulation]; Z85.07 Personal history of malignant neoplasm of pancreas
CPT/HCPCS: 99281

== ENCOUNTER 2020-03-17 19:51 | Emergency (ER) | payer OTHER ==
[~2020-03-17] VITALS: Ht 152.4 cm; Wt 62.6 kg
[2020-03-17] MEDS ORDERED: PROMETHAZINE 12.5MG/ NACL 0.9% 12.5 MG/50 ML BAG IV NR (20:15)
[2020-03-17] MEDS ORDERED: HYDROMORPHONE 1MG/1ML INJ IV NR (20:15)
--- NOTE | 2020-03-17 20:27 | Emergency Department Note ---
History of Present Illnes History of Present Illness Chief Complaint: Genitourinary History of Present Illness This is a 39 year old female states she saw Dr. Del Angel on and was told she had a bad kindey infection. pt reports blood in urine Patient was placed on oral antibiotics without any improvement. C/o nausea and vomiting and states her stomach feels distended. C/o left sided flank pain. Pt has been on ceftin since for a uti, i spoke with dr del angel and he reports urine culture showed sensitivity to cephalasporins. 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 Required: No Onset (how long ago): day(s) (6) Location: back and left flank Quality: pain, blood in urine, Radiation: Reports non-radiation Severity: moderate Onset quality: sudden Duration (how long): day(s) (6) Timing of current episode: constant Progression: unchanged Chronicity: recurrent Context: Reports recent illness (reported uti); Denies recent surgery, Denies trauma/injury Relieving factors: none Exacerbating factors: none Associated symptoms: Reports nausea/vomiting Treatments prior to arrival: other (ceftin for past 6 days) Past Medical/Family History Physician Review I have reviewed the patient's past medical and family history. Any updates have been documented here. Past Medical History Recent Fever: No Clinical Suspicion of Infectio: Yes New/Unexplained Change in Ment: No Past Medical History: Cancer, Kidney Stones, Other Mental Illness Other Medical History: MEDULLARY SPONGE KIDNEY PANCREATIC CANCER CHRONIC PAIN CHRONIC NAUSEA Past Surgical History: Cholecysctectomy Other Surgery: BREAST AUGMENTATION TUMMY TUCK ENDOMETRIAL ABLATION BLADDER SLING LITHOTRIPSY RENAL STENTS PORTACATH distal pancreactomy splenectomy Social History Smoking Cessation: Never Smoker Alcohol Use: None Any Illegal Drug Use: No Other Last Tetanus: 2018 Review of Systems Review of Systems Constitutional: Reports no symptoms EENTM: Reports no symptoms Cardiovascular: Reports no symptoms Respiratory: Reports no symptoms Gastrointestinal: Reports no symptoms Genitourinary: Reports as per HPI Musculoskeletal: Reports no symptoms Integumentary: Reports no symptoms Neurological: Reports no symptoms Psychological: Reports no symptoms Endocrine: Reports no symptoms Hematological/Lymphatic: Reports no symptoms Physical Exam Related Data Allergies: Coded Allergies: dexamethasone (Verified Allergy, Intermediate, RASH, 09/27/18) iodine (Verified Allergy, Intermediate, hives, 09/27/18) Iodinated Contrast Media (Verified Allergy, Mild, 09/27/18) butorphanol (Verified Allergy, Mild, 09/27/18) fentanyl (Verified Allergy, Mild, 09/27/18) ketorolac (Verified Allergy, Mild, 09/27/18) morphine (Verified Allergy, Mild, 09/27/18) tramadol (Verified Allergy, Mild, Hives, chest pressure, 09/27/18) ondansetron (Verified Adverse Reaction, Mild, ELEVATES BP, 09/27/18) Uncoded Allergies: TEGADERM (Allergy, Mild, redness, skin irritation, 10/31/15) Triage Vital Signs Vital Signs Date Time Temp Pulse Resp B/P (MAP) Pulse Ox O2 Delivery O2 Flow Rate FiO2 03/17/20 20:05 98.5 117 20 138/65 100 Room Air Vital signs reviewed: Yes Physical Exam CONSTITUTIONAL Constitutional: Present well-developed, Present well-nourished, Present distressed (moderate) HENT HENT: Present normocephalic, Present atraumatic, Present oropharynx clear/moist, Present nose normal HENT L/R: Present left ext ear normal, Present right ext ear normal EYES Eyes: Reports PERRL, Reports conjunctivae normal NECK Neck: Present ROM normal PULMONARY Pulmonary: Present effort normal, Present breath sounds normal CARDIOVASCULAR Cardiovascular: Present regular rhythm, Present heart sounds normal, Present capillary refill normal, Present tachycardia (110) GASTROINTESTINAL Abdominal: Present soft, Present nontender, Present bowel sounds normal, Present left CVA tenderness (moderate), Present right CVA tenderness (mild) GENITOURINARY Genitourinary: Present exam deferred SKIN Skin: Present warm, Present dry MUSCULOSKELETAL Musculoskeletal: Present ROM normal NEUROLOGICAL Neurological: Present alert, Present oriented x 3, Present no gross motor or sensory deficits PSYCHOLOGICAL Psychological: Present mood/affect normal, Present judgement normal Results Laboratory Laboratory Laboratory Tests Test 03/17/20 21:00 03/17/20 20:19 White Blood Count 7.03 x10e3/uL (4.8-10.8) Red Blood Count 4.08 x10e6/uL (3.6-5.1) Hemoglobin 11.2 g/dL (12.0-16.0) Hematocrit 35.0 % (34.2-44.1) Mean Corpuscular Volume 85.8 fL (81-99) Mean Corpuscular Hemoglobin 27.5 pg (28-32) Mean Corpuscular Hemoglobin Concent 32.0 g/dL (31-35) Red Cell Distribution Width 15.1 % (11.7-14.4) Platelet Count 572 x10e3/uL (140-360) Neutrophils (%) (Auto) 43.7 % (38.7-80.0) Lymphocytes (%) (Auto) 42.8 % (18.0-39.1) Monocytes (%) (Auto) 8.7 % (4.4-11.3) Eosinophils (%) (Auto) 4.3 % (0.0-6.0) Basophils (%) (Auto) 0.4 % (0.0-1.0) Neutrophils # (Auto) 3.1 (2.1-6.9) Lymphocytes # (Auto) 3.0 (1.0-3.2) Monocytes # (Auto) 0.6 (0.2-0.8) Eosinophils # (Auto) 0.3 (0.0-0.4) Basophils # (Auto) 0.0 (0.0-0.1) Absolute Immature Granulocyte (auto 0.01 x10e3/uL (0-0.1) Sodium Level 138 mmol/L (136-145) Potassium Level 3.7 mmol/L (3.5-5.1) Chloride Level 106 mmol/L (98-107) Carbon Dioxide Level 23 mmol/L (22-29) Anion Gap 12.7 mmol/L (8-16) Blood Urea Nitrogen 13 mg/dL (7-26) Creatinine 0.80 mg/dL (0.57-1.11) Estimat Glomerular Filtration Rate > 60 ML/MIN (60-) BUN/Creatinine Ratio 16 (6-25) Glucose Level 100 mg/dL (74-118) Calcium Level 9.3 mg/dL (8.4-10.2) Total Bilirubin 0.4 mg/dL (0.2-1.2) Aspartate Amino Transf (AST/SGOT) 80 IU/L (5-34) Alanine Aminotransferase (ALT/SGPT) 58 IU/L (0-55) Alkaline Phosphatase 131 IU/L (40-150) Total Protein 8.0 g/dL (6.5-8.1) Albumin 4.7 g/dL (3.5-5.0) Globulin 3.3 g/dL (2.3-3.5) Albumin/Globulin Ratio 1.4 (0.8-2.0) Amylase Level 38 U/L (25-125) Lipase < 4 U/L (8-78) Urine Color Yellow (YELLOW) Urine Clarity Sl cloudy (CLEAR) Urine pH 7 (5 - 7) Urine Specific [place] 1.025 (1.010-1.025) Urine Protein Negative (NEGATIVE) Urine Glucose (UA) Negative (NEGATIVE) Urine Ketones Negative (NEGATIVE) Urine Blood Trace (NEGATIVE) Urine Nitrite Negative (NEGATIVE) Urine Bilirubin Negative (NEGATIVE) Urine Urobilinogen 0.2 mg/dL (0.2 - 1) Urine Leukocyte Esterase Negative (NEGATIVE) Urine RBC 6-10 /HPF (0-5) Urine WBC 0-5 /HPF (0-5) Urine Epithelial Cells Moderate /LPF (NONE) Urine Bacteria Few /HPF (NONE) Urine Yeast Few (NONE) Lab results reviewed: Yes Imaging Imaging results reviewed: Yes Impressions Procedure: [id number] CT/CT ABDOMEN/PELVIS WO Exam Date: 03/17/20 Exam Time: 2100 REPORT STATUS: Signed EXAM: CT Abdomen and Pelvis WITHOUT contrast INDICATION: LEFT FLANK PAIN COMPARISON: Multiple prior CTs of the abdomen/pelvis including most recent on 05/21/2019. TECHNIQUE: Abdomen and pelvis were scanned utilizing a multidetector helical scanner from the lung base to the pubic symphysis without administration of IV contrast. Absence of intravenous contrast decreases sensitivity for detection of focal lesions and vascular pathology. Coronal and sagittal reformations were obtained. Routine protocol was performed. IV CONTRAST: None ORAL CONTRAST: None COMPLICATIONS: None RADIATION DOSE: Total DLP: 216.05 mGy*cm Estimated effective dose: (DLP x 0.015 x size factor) mSv CTDIvol has been reviewed. It is below the limits set by the Radiation Protocol Committee (RPC). Dose modulation, iterative reconstruction, and/or weight based adjustment of the mA/kV was utilized to reduce the radiation dose to as low as reasonably achievable. FINDINGS: LINES and TUBES: None. LOWER THORAX: Unremarkable HEPATOBILIARY: The liver is diffuse hypodense compared to the spleen, consistent with diffuse hepatic diffuse hepatic steatosis. No focal hepatic lesions. No biliary ductal dilation. GALLBLADDER: There are cholecystectomy clips. There is a dislodged clip located anterior to liver (series 3 image 83). SPLEEN: No splenomegaly. PANCREAS: No focal masses or ductal dilatation. ADRENALS: No adrenal nodules KIDNEYS/URETERS: No hydronephrosis. No cystic or solid mass lesions. There are multiple bilateral nonobstructive renal stones. GI TRACT: No abnormal distention, wall thickening, or evidence of bowel obstruction. The appendix is not visualized, however no secondary signs of appendicitis. PELVIC ORGANS/BLADDER: Unremarkable. LYMPH NODES: No lymphadenopathy. VESSELS: Unremarkable. PERITONEUM / RETROPERITONEUM: No free air or fluid. BONES: Unremarkable. SOFT TISSUES: Partially imaged bilateral breast implants are unchanged. IMPRESSION: 1. Nonobstructive bilateral nephrolithiasis. 2. Hepatic steatosis. 3. No acute abdominopelvic abnormality identified. Signed by: Yuliet Swartz MD on 03/17/2020 9:45 PM Dictated By: YULIET SWARTZ MD 44 Transcribed By: WAYNE on 03/17/202144 COPY TO: IMMANUEL RANKIN MD~ Assessment & Plan Medical Decision Making MDM pt with h/o kidney stones with hematuria and back pain cbc, cmp, amylase, lipase, ua, ct abd/pelvis ordered to eval for uti, kidney stone, pancreatitis, electrolyte abnormality, dilaudid 1 mg iv ordered phenergan 12.5 mg iv I REVIEWED RESULTS WITH DR DEL ANGEL DISCHARGE PT HOME WITH DIFLUCAN 100 MG PO QD FOR 10 DAYS Assessment & Plan Final Impression: (1) Yeast UTI (2) Abdominal pain Depart Disposition: HOME, SELF-CARE Last Vital Signs Date Time Temp Pulse Resp B/P (MAP) Pulse Ox O2 Delivery O2 Flow Rate FiO2 03/17/20 20:05 98.5 117 20 138/65 100 Room Air Home Meds Active Scripts Promethazine Hcl (PROMETHAZINE HCL) 25 Mg Tablet, 25 MG PO Q12H PRN for NAUSEA, #20 TAB Prov:RAYMOND LUKE [employer] 06/02/18 Reported Medications Filgrastim (NEUPOGEN) 480 Mcg/1.6 Ml Vial, 480 MCG SC DAILY, VIAL X 5 MORE DOSES 06/18/18 Lipase/Protease/Amylase (ALTON RODRIGEZ 24,000 UNITS CAPSULE) 1 Each Capsule., 41737 UNITS PO TID 06/18/18 Hydrocodone Bit/Acetaminophen (HYDROCODON-ACETAMINOPHN 10-325) 1 Each Tablet, 1 TAB PO Q6HR PRN for PAIN 05/15/18 Hydromorphone Hcl (DILAUDID) 2 Mg Tab, 4 MG PO Q4HR PRN for PAIN 05/15/18 Zolpidem Tartrate (AMBIEN CR) 12.5 Mg Tabcr, 12.5 MG PO HS PRN for SLEEP 05/15/18 Carvedilol (CARVEDILOL) 12.5 Mg Tablet, 12.5 MG PO TID, #60 TAB 10/26/15 IMMANUEL RANKIN MD Mar 17, 2020 20:27
[2020-03-17 20:31] LABS: CLARITY,URINE SL CLOUDY (CLEAR); COLOR,URINE YELLOW (YELLOW)
[2020-03-17 20:32] LABS: KETONES,URINE NEGATIVE (NEGATIVE); LEUKOCYTE ESTERASE ,URINE NEGATIVE (NEGATIVE); NITRITE,URINE NEGATIVE (NEGATIVE); PROTEIN,URINE DIPSTICK NEGATIVE (NEGATIVE); URINE UROBILINOGEN 0.2 mg/dL (0.2 - 1)
[2020-03-17 20:33] LABS: BILIRUBIN,URINE NEGATIVE (NEGATIVE)
[2020-03-17 20:38] LABS: BACTERIA,URINE FEW /HPF; WBC,URINE (MAN) 0-5 /HPF (0-5)
[2020-03-17 20:39] LABS: EPITHELIAL CELLS,URINE MODERATE /LPF; YEAST,URINE FEW
[2020-03-17 21:16] LABS: BASOPHILS % 0.4 % (0.0-1.0); EOSINOPHILS # (AUTO) 0.3 (0.0-0.4); EOSINOPHILS % 4.3 % (0.0-6.0); HEMOGLOBIN 11.2 g/dL (12.0-16.0); LYMPHOCYTES % 42.8 % (18.0-39.1); MEAN CORPUSCULAR HEMOGLOBIN 27.5 pg (28-32); MEAN CORPUSCULAR VOLUME 85.8 fL (81-99); MONOCYTES # (AUTO) 0.6 (0.2-0.8); MONOCYTES % 8.7 % (4.4-11.3); NEUTROPHILS # (AUTO) 3.1 (2.1-6.9); NEUTROPHILS % 43.7 % (38.7-80.0); PLATELET COUNT 572 x10e3/uL (140-360); RED BLOOD COUNT 4.08 x10e6/uL (3.6-5.1); RED CELL DISTRIBUTION WIDTH 15.1 % (11.7-14.4)
[2020-03-17 21:32] LABS: AMYLASE 38 U/L (25-125)
[2020-03-17 21:33] LABS: ALANINE AMINOTRANSFERASE 58 IU/L (0-55); ALBUMIN 4.7 g/dL (3.5-5.0); ALBUMIN/GLOBULIN RATIO 1.4 (0.8-2.0); ALKALINE PHOSPHATASE 131 IU/L (40-150); ANION GAP 12.7 mmol/L (8-16); BLOOD UREA NITROGEN 13 mg/dL (7-26); BUN/CREATININE RATIO 16 (6-25); CALCIUM 9.3 mg/dL (8.4-10.2); CARBON DIOXIDE 23 mmol/L (22-29); CHLORIDE 106 mmol/L (98-107); EST GLOMERULAR FILTRATION RATE > 60 ML/MIN (60-); GLUCOSE 100 mg/dL (74-118); LIPASE < 4 U/L (8-78); POTASSIUM 3.7 mmol/L (3.5-5.1); SODIUM 138 mmol/L (136-145)
--- NOTE | 2020-03-17 21:48 | Diagnostic Imaging Report ---
EXAM: CT Abdomen and Pelvis WITHOUT contrast INDICATION: LEFT FLANK PAIN COMPARISON: Multiple prior CTs of the abdomen/pelvis including most recent on 05/21/2019. TECHNIQUE: Abdomen and pelvis were scanned utilizing a multidetector helical scanner from the lung base to the pubic symphysis without administration of IV contrast. Absence of intravenous contrast decreases sensitivity for detection of focal lesions and vascular pathology. Coronal and sagittal reformations were obtained. Routine protocol was performed. IV CONTRAST: None ORAL CONTRAST: None COMPLICATIONS: None RADIATION DOSE: Total DLP: 216.05 mGy*cm Estimated effective dose: (DLP x 0.015 x size factor) mSv CTDIvol has been reviewed. It is below the limits set by the Radiation Protocol Committee (RPC). Dose modulation, iterative reconstruction, and/or weight based adjustment of the mA/kV was utilized to reduce the radiation dose to as low as reasonably achievable. FINDINGS: LINES and TUBES: None. LOWER THORAX: Unremarkable HEPATOBILIARY: The liver is diffuse hypodense compared to the spleen, consistent with diffuse hepatic diffuse hepatic steatosis. No focal hepatic lesions. No biliary ductal dilation. GALLBLADDER: There are cholecystectomy clips. There is a dislodged clip located anterior to liver (series 3 image 83). SPLEEN: No splenomegaly. PANCREAS: No focal masses or ductal dilatation. ADRENALS: No adrenal nodules KIDNEYS/URETERS: No hydronephrosis. No cystic or solid mass lesions. There are multiple bilateral nonobstructive renal stones. GI TRACT: No abnormal distention, wall thickening, or evidence of bowel obstruction. The appendix is not visualized, however no secondary signs of appendicitis. PELVIC ORGANS/BLADDER: Unremarkable. LYMPH NODES: No lymphadenopathy. VESSELS: Unremarkable. PERITONEUM / RETROPERITONEUM: No free air or fluid. BONES: Unremarkable. SOFT TISSUES: Partially imaged bilateral breast implants are unchanged. IMPRESSION: 1. Nonobstructive bilateral nephrolithiasis. 2. Hepatic steatosis. 3. No acute abdominopelvic abnormality identified. Signed by: Elvis Zamudio MD on 03/17/2020 9:45 PM
[2020-03-17] MEDS ORDERED: CEFTRIAXONE SOD 1 GM/NS 50 ML 50 ML IV ONE (22:00)
--- OUTSIDE RECORDS SUMMARY | 2020-03-17 22:43 | XMS REPORT | Clinical Summary ---
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 [place] [id number] [place], [place] [address] PATHOLOGY AND GENOMIC MEDICINE [facility] [address] [place] [address] [facility] [place] * Cancer antigen 19-9 (01/21/2020 9:40 AM CDT) [facility] [place] 19-9 11 0 - 35 U/mL [facility] Comment: MORAVIAN The [address] 8000 CA19-9 HOSPITAL immunoassay was used. Results obtained with different assay methods or kits should not be used interchangeably and may be different. Specimen Blood Performing Organization Address City/[facility] Ph one Number [facility] DEPARTMENT OF [address] [place] [address] PATHOLOGY AND GENOMIC MEDICINE [address] * Hemoglobin & hematocrit (01/21/2020 9:40 AM CDT) [facility] HGB 10.2 (L) 11.5 - 15.3 g/dL [facility] HCT 30.4 (L) 34.0 - 45.0 % [facility] Specimen Blood Performing Organization Address [facility] Ph one Number [facility] DEPARTMENT [address] [place] [address] PATHOLOGY AND GENOMIC MEDICINE [address] * Enteric bacterial panel (01/21/2020 6:04 AM CDT) [facility] Enteric Negative for all pathogens [facility] bacterial panel tested: MORAVIAN Negative for Salmonella HOSPITAL Negative for Campylobacter Negative for Diarrheagenic E coli/Shigella Negative for Shiga-like toxin-producing E coli Negative for Plesiomonas shigelloides Negative for Yersinia enterocolitica Negative for Vibrio species This real-time PCR assay detects the presence of nucleic acids (RNA or DNA) for the gastrointestinal pathogens listed. A result of "Not-detected" does not exclude the possibility of the presence of one or more pathogens at concentrations less than the detectable limits of the assay. Comment: Specimen Information Specimen Source: Stool Specimen Site: Nonpreserved Specimen Stool - Nonpreserved Performing Organization Address City/[facility] Ph one Number [facility] DEPARTMENT OF [address] [place] [address] PATHOLOGY AND [facility] MEDICINE [address] * Enteric parasitic panel (01/21/2020 6:04 AM CDT) [facility] Enteric Negative for all pathogens [facility] parasitic panel tested: MORAVIAN Negative for Salmonella HOSPITAL Negative for Campylobacter Negative for Diarrheagenic E coli/Shigella Negative for Shiga-like toxin-producing E coli Negative for Plesiomonas shigelloides Negative for Yersinia enterocolitica Negative for Vibrio species This real-time PCR assay detects the presence of nucleic acids (RNA or DNA) for the gastrointestinal pathogens listed. A result of "Not-detected" does not exclude the possibility of the presence of one or more pathogens at concentrations less than the detectable limits of the assay. Comment: Specimen Information Specimen Source: Stool Specimen Site: Nonpreserved Specimen Stool - Nonpreserved Performing Organization Address City/[facility] Ph one Number [facility] DEPARTMENT OF [address] [place] [address] PATHOLOGY AND GENOMIC MEDICINE [address] * Basic metabolic panel (01/18/2020 11:40 AM CDT) Pathologist [facility] Sodium 140 135 - 150 mEq/L [facility] Potassium 4.1 3.5 - 5.0 mEq/L [facility] Chloride 105 98 - 112 mEq/L [facility] CO2 22 (L) 24 - 31 mmol/L [facility] Anion gap 13@ANIO 7 - 15 mEq/L [facility] BUN 8 7 - 18 mg/dL [facility] Creatinine 0.60 0.50 - 0.90 mg/dL [facility] Glucose 115 (H) 65 - 100 mg/dL [facility] Calcium 9.6 8.3 - 10.2 mg/dL [facility] Specimen Blood Performing Organization Address City/State/[facility] Ph one Number [facility] DEPARTMENT OF [address] [place] [address] PATHOLOGY AND GENOMIC MEDICINE [facility] [address] * Troponin, I-Stat (01/18/2020 12:32 AM CDT) Pathologist [facility] Troponin, 0.01 0.00 - 0.08 ng/mL [facility] I-Stat Comment: MORAVIAN 0.09 - 1.49 ng/ml [place] May indicate increased risk HOSPITAL of acute coronary syndrome. >=1.5 ng/ml Consistent with acute myocardial infarction. The diagnostic value of a single normal or non-diagnostic result is questionable. Serial samples at 2-6 hour intervals are required to rule out acute myocardial injury. Specimen Performing Organization Address City/State/Zipcode Ph one Number [facility] DEPARTMENT OF [address] [place] [address] PATHOLOGY AND GENOMIC MEDICINE [facility] [address] [place] [id number] HOSPITAL * COVID-19 qualitative PCR (01/17/2020 10:12 PM CDT) Pathologist [facility] Interpretation Negative results do not CABAN preclude 2019-nCoV infection MORAVIAN and should not be used as the HOSPITAL sole basis for treatment or other patient management decisions. Negative results must be combined with clinical observations, patient history, and epidemiological information. COVID-19 Not-Detected Not-Detected [facility] qualitative PCR MORAVIAN result HOSPITAL COVID-19 See link below for PDF Lab [facility] qualitative PCR ReportComment: Case Number: MORAVIAN [id number] HOSPITAL Specimen Nasopharyngeal swab Performing Organization Address City/State/Zipcode Ph one Number [facility] DEPARTMENT OF [address] [place] [address] PATHOLOGY AND GENOMIC MEDICINE [facility] [address] [place] [address] [facility] * Troponin (01/17/2020 7:45 PM CDT) Only the most recent of 2 results within the time period is included. Pathologist [facility] Troponin <0.006 0.000 - 0.040 ng/mL [facility] Comment: MORAVIAN In patients suspected of [place] having a myocardial HOSPITAL infarction, along with all other appropriate clinical measures and actions including ECG and other diagnostics as appropriate, measure Ultra TnI at 0 hrs and at 3 hrs. Myocardial infarction VERY LIKELY The 0 hr TnI level is > 0.10 ng/mL Myocardial infarction LIKELY The 0 hr TnI level is > 0.04 ng/mL and 3 hr level is increased or decreased by at least 0.020 ng/mL Myocardial infarction VERY UNLIKELY Both the 0 hr and 3 hr TnI levels <= 0.04 ng/mL(within normal limits) OR 0 hr is > 0.04 ng/mL and 3 hr is increased OR decreased by less than 0.020 ng/mL Specimen Blood Performing Organization Address City/[facility] Ph one Number [facility] DEPARTMENT OF [address] [place] [address] PATHOLOGY AND GENOMIC MEDICINE [facility] [address] * XR Chest 1 Vw Portable (01/17/2020 5:33 PM CDT) Specimen Narrative Performed At EXAMINATION: XR CHEST 1 VW PORTABLE [facility] CLINICAL HISTORY: 39 years Female yves l for pna COMPARISON: October 23 IMPRESSION: The cardiomediastinal silhouette is not enlarged The lungs are clear The osseous structures are within yumiko l limits. . . Procedure Note Hm Interface, Radiology Results Incoming - 01/17/2020 5:37 PM CDT EXAMINATION: XR CHEST 1 VW PORTABLE CLINICAL HISTORY: 39 years Female eval for pna COMPARISON: October 23 IMPRESSION: The cardiomediastinal silhouette is not enlarged The lungs are clear The osseous structures are within normal limits. . . Performing Organization Address [facility] Ph one Number [facility] [address] [place] [address] * ECG ED Preliminary Interpretation - Not an Order (01/17/2020 5:23 PM CDT) Narrative Performed At Angel Rosario Jr., MD 2019 7:26 AM ECG ED Preliminary Interpretation - Not an Order Performed by: Angel Rosario Jr., MD Authorized by: Angel Rosario Jr., MD ECG reviewed by ED Physician in the abs ence of a natural foods clerk: yes Interpretation: Interpretation: non-specific Rate: ECG rate: 138 ECG rate assessment: tachycardic Rhythm: Rhythm: sinus tachycardia QRS: QRS axis: Right QRS intervals: Normal Conduction: Conduction: normal ST segments: ST segments: Normal T waves: T waves: normal * Blood culture, aerobic & anaerobic (01/17/2020 4:55 PM CDT) Only the most recent of 2 results within the time period is included. Blood culture No growth after 5 days of [facility] isolate incubation. MORAVIAN Comment: HOSPITAL Specimen Information Specimen Source: Blood Specimen Site: Aorta Arm Right Specimen Blood Performing Organization Address City/[facility] Ph one Number [facility] DEPARTMENT OF [address] [place] [address] PATHOLOGY AND GENOMIC MEDICINE [facility] [address] [place] [address] HOSPITAL * Type and screen (01/17/2020 4:42 PM CDT) ABO grouping O [facility] Rh type POS [facility] Antibody screen NEG [facility] (gel) [facility] Specimen Blood Performing Organization Address [facility] Ph one Number [facility] DEPARTMENT OF [address] [place] [address] PATHOLOGY AND GENOMIC MEDICINE [address] * B natriuretic peptide (01/17/2020 4:42 PM CDT) BNP <3 0 - 100 pg/mL [facility] Specimen Blood Performing Organization Address [facility] Ph one Number [facility] DEPARTMENT OF [address] [place] [address] PATHOLOGY [place] [address] HOSPITAL * ECG 12 lead (01/17/2020 4:33 PM CDT) Only the most recent of 3 results within the time period is included. Ventricular 138 [facility] rate Atrial rate 138 [facility] M[facility] WV interval 120 [facility] QRSD interval 72 [facility] QT interval 362 [facility] QTC interval 548 [facility] P axis 1 58 [facility] QRS axis 1 102 [facility] T wave axis 75 [facility] EKG impression Sinus tachycardia-Rightward [facility] MUSE axis-Nonspecific T wave abnormality-Abnormal ECG-In automated comparison with ECG of 20-MAY-2019 17:10,-Vent. rate has increased BY 62 BPM-Criteria for Septal infarct are no longer buknuai-Kps-kaakabie change in ST segment in Anterolateral leads-Nonspecific T wave abnormality now evident in Lateral leads- Specimen Narrative Performed At This result has an attachment that is n ot available. Performing Organization Address [facility] one Number [facility] MUSE [address] [place] [address] * XR Wrist 3+ Vw Right (09/25/2019 2:06 PM CDT) Specimen Narrative Performed At EXAMINATION: XR WRIST 3 VW RIGHT [facility] CLINICAL HISTORY: Fracture wrist COMPARISON: None. IMPRESSION: There is no evidence of acute right wri st fracture or dislocation. [id number] Procedure Note Interface, Radiology Results Incoming - 09/25/2019 2:12 PM CDT EXAMINATION: XR WRIST 3 VW RIGHT CLINICAL HISTORY: Fracture wrist COMPARISON: None. IMPRESSION: There is no evidence of acute right wrist fracture or dislocation. [id number] Performing Organization Address [facility] one Number HM [facility] [address] [place] [address] * XR Hips Bilateral 2 Views (09/25/2019 2:05 PM CDT) Specimen Narrative Performed At EXAMINATION: XR HIPS BILATERAL 2 VIEWS HM [facility] CLINICAL HISTORY: back pain fall COMPARISON: None available. IMPRESSION: 1. Approximately age and gender appropr iate mineralization of the osseous structures. 2. Normal alignment of the right and le ft hip without acute fracture or dislocation. Normal joint spaces. No wi dening of the sacroiliac joints or the pubic symphysis. 3. No radiographically evident focal so ft tissue abnormality. [id number] . Procedure Note Interface, Radiology Results Incoming - 09/25/2019 2:12 PM CDT EXAMINATION: XR HIPS BILATERAL 2 VIEWS CLINICAL HISTORY: back pain fall COMPARISON: None available. IMPRESSION: 1. Approximately age and gender appropri ate mineralization of the osseous structures. 2. Normal alignment of the right and lef t hip without acute fracture or dislocation. Normal joint spaces. No widening of the sacroiliac joints or the pubic symphysis. 3. No radiographically evident focal sof t tissue abnormality. [id number] . Performing Organization Address [facility]/Zipcode Ph one Number HM [facility] [address] [place] [address] * XR Lumbar Spine 2 Or 3 Vw (09/25/2019 2:05 PM CDT) Specimen Narrative Performed At EXAMINATION: XR LUMBAR SPINE 2 OR 3 VW HM [facility] COMPARISON: None CLINICAL HISTORY: back pain fall COMMENTS: Frontal and lateral views o f the lumbar spine are provided. FINDINGS: There is mild anterior spon dylosis in the lumbar spine. There is minimal endplate sclerosis. No acute fr acture or subluxation. Surgical clips project in the right upp er abdomen. 3 metallic pellets project anterior to the lower thoracic spine in the upper abdomen. IMPRESSION: Mild degenerative change on plain films. [id number] Procedure Note Interface, Radiology Results Incoming - 09/25/2019 2:11 PM CDT EXAMINATION: XR LUMBAR SPINE 2 OR 3 VW COMPARISON: None CLINICAL HISTORY: back pain fall COMMENTS: Frontal and lateral views of the lumbar spine are provided. FINDINGS: There is mild anterior spondylosis in the lumbar spine. There is minimal endplate sclerosis. No acute fracture or subluxation. Surgical clips project in the right upper abdomen. 3 metallic pellets project anterior to the lower thoracic spine in the upper abdomen. IMPRESSION: Mild degenerative change on plain films. [id number] Performing Organization Address City/[facility] one Number [facility] [address] [place] [address] * XR Wrist 3+ Vw Left (09/25/2019 2:04 PM CDT) Specimen Narrative Performed At EXAMINATION: XR WRIST 3 VW LEFT [facility] CLINICAL HISTORY: fall wrist pain COMPARISON: None available. IMPRESSION: 1. Approximately age and gender appropr iate mineralization of the osseous structures. 2. Normal alignment of the left wrist w ithout acute fracture or dislocation. 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 3. No radiographically evident focal so ft tissue abnormality. Vascular clips project over the forearm, correlation w ith the patient's surgical history reocmmended. [id number] Procedure Note Interface, Radiology Results Incoming - 09/25/2019 2:10 PM CDT EXAMINATION: XR WRIST 3 VW LEFT CLINICAL HISTORY: fall wrist pain COMPARISON: None available. IMPRESSION: 1. Approximately age and gender appropri ate mineralization of the osseous structures. 2. Normal alignment of the left wrist wi thout acute fracture or dislocation. 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 3. No radiographically evident focal sof t tissue abnormality. Vascular clips project over the forearm, correlation with the patient's surgical history reocmmended. [facility]-[id number] Performing Organization Address [facility] one Number [facility] [address] [place] [address] * XR Femur 2 Vw Right (09/24/2019 2:35 PM CDT) Specimen Narrative Performed At EXAMINATION: XR FEMUR 2 VW RIGHT [facility] CLINICAL HISTORY: pain COMPARISON: None available. IMPRESSION: 1. Approximately age and gender appropr iate mineralization of the osseous structures. 2. Normal alignment of the right femur without acute fracture or dislocation. Joint spaces are preserved. 3. No radiographically evident focal so ft tissue abnormality. [id number] Procedure Note Hm Interface, Radiology Results Incoming - 09/24/2019 2:42 PM CDT EXAMINATION: XR FEMUR 2 VW RIGHT CLINICAL HISTORY: pain COMPARISON: None available. IMPRESSION: 1. Approximately age and gender appropri ate mineralization of the osseous structures. 2. Normal alignment of the right femur w ithout acute fracture or dislocation. Joint spaces are preserved. 3. No radiographically evident focal sof t tissue abnormality. [id number] Performing Organization Address [facility] one Number [facility] [address] [place] [address] * hCG qualitative, urine screen (09/24/2019 1:48 PM CDT) hCG Negative Negative [facility] qualitative, Comment: MOR[place]IAN urine The manufacturers stated [place] sensitivity of HcG test for HOSPITAL serum is >/= 10 mIU/ml and urine is >/= 20mIU/ml. Specimen Urine Performing Organization Address [facility] Ph one Number [facility] DEPARTMENT OF [address] [place] [phone] PATHOLOGY AND GENOMIC MEDICINE [facility] MOR[place]IAN [place] [address] [place] [address] HOSPITAL * Gastrointestinal panel (05/20/2019 2:00 AM MANAGEMENT AND BUDGET ANALYST) Gastrointestina Negative for all pathogens [facility] panel tested: MORAVIAN Negative for Salmonella [facility] Negative for Campylobacter Negative for Diarrheagenic E coli/Shigella Negative for Shiga-like toxin-producing E coli Negative for Plesiomonas shigelloides Negative for Yersinia enterocolitica Negative for Vibrio species Negative for Clostridium difficile (Toxin A/B) Negative for Cryptosporidium Negative for Giardia lamblia Negative for Cyclospora cayeteanensis Negative for Entamoeba histolytica Negative for Adenovirus F 40/41 Negative for Astrovirus Negative for Norovirus GI/GII Negative for Rotavirus A Negative for Sapovirus Negative for Clostridium difficile toxin Negative for E coli 0157 This real-time PCR assay detects the presence of nucleic acids (RNA or DNA) for the gastrointestinal pathogens listed. A result of "Not-detected" does not exclude the possibility of the presence of one or more pathogens at concentrations less than the detectable limits of the assay. Comment: Specimen Information Specimen Source: Stool Specimen Site: Nonpreserved Specimen Stool - Nonpreserved Performing Organization Address [facility] one Number [facility] DEPARTMENT OF [address] [place] [address] PATHOLOGY AND GENOMIC MEDICINE [address] * Occult blood, stool (05/20/2019 2:00 AM MANAGEMENT AND BUDGET ANALYST) Occult blood, Positive for Occult blood (A) [facility] stool Comment: [facility] Specimen Information [facility] Specimen Source: Stool Specimen Site: Nonpreserved Specimen Stool - Nonpreserved Performing Organization Address [facility] one Number [facility] DEPARTMENT OF [address] [place] [address] Dr Gonzalez[place] [address] PATHOLOGY AND GENOMIC MEDICINE [address] * Amylase level (05/20/2019 2:00 AM MANAGEMENT AND BUDGET ANALYST) Amylase 55 13 - 73 U/L [facility] Specimen Plasma specimen Performing Organization Address [facility] one Number [facility] DEPARTMENT OF [address] [place] [address] [place] [phone] PATHOLOGY AND GENOMIC MEDICINE [address] after 03/17/2019 Insurance Type Payer Benefit Subscriber ID Effective Phone Address Plan / Dates Group HMO/O [facility] xxxxxxxxx 2018-P THCARE resent CHOICE/CHO ICE + Liability Advance Directives For more information, please contact: [phone] Patient Wringer And Setter Explanation Type Date Recorded Advance Directives, 08/02/2018 4:13 PM Living Will and Medical Power of Er Medical Technician Advance Directives, 09/28/2018 5:23 PM Living Will and Medical Power of Er Medical Technician Advance Directives, 10/23/2018 7:21 PM Living Will and Medical Power of Er Medical Technician Advance Directives, 01/17/2020 4:50 PM Living Will and Medical Power of Er Medical Technician Date Inactivated Comments Code Status Date Activated 2019 12:50 AM Full Code 12/18/2019 5:41 AM Code Status decision reached by: Patient 05/21/2019 7:00 PM Full Code 05/20/2019 2:54 AM Code Status decision reached by: Patient 01/30/2019 4:56 PM Full Code 01/22/2019 6:29 AM Code Status decision reached by: Patient 01/15/2017 4:57 AM Full Code 01/14/2017 1:34 PM Code Status decision reached by: Patient
--- OUTSIDE RECORDS SUMMARY | 2020-03-17 22:44 | XMS REPORT | Continuity of Care Document ---
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 Rosaura Reid Tachycardia Active Diagnosis 08/15/2016 Rosaura Reid Nephrolithiasis Active Problem 09/23/2016 Rosaura Reid Anxiety Active Problem 09/23/2016 Rosaura Reid Acute cystitis with hematuria Active Problem Rosaura Reid Medications Medication Details Route Status Patient Instructions Ordering Provider Order Date Source Cipro 1 tablet Orally Active 500 MG Orally Twice a d [facility] 08/31/2016 Rosaura Ried Pyridium 1 tablet after meals Orally Active 200 MG Orally Three times a day [facility] 08/12/2016 Rosaura Reid Zyvox 1 tablet Orally Active 600 MG Orally every 12 hrs [facility] 07/13/2016 Rosaura Reid Acetaminophen-Codeine #3 1 tab let as needed Orally Active 300-30 MG Orally every 6 hrs [facility] 06/15/2016 Rosaura Reid Promethazine HCl 1 tablet as n eeded Orally Active 12.5 MG Orally every 6 hrs [facility] 06/15/2016 Rosaura Reid Alprazolam 1/2 half tablet Orally Active 1 MG Orally Twice a day [facility] Rosaura Reid Carvedilol 1 tablet Orally Active 12.5 MG Orally twice a day [facility] Rosaura Reid Potassium Citrate ER not defin ed Orally Active 10 MEQ (1080 MG) Orally twice a day [facility] Rosaura Reid Bactrim 2 tablets Orally Active 400-80 MG Orally Once a day [facility] Satinder Pyridium 1 tablet after meals Orally Active 200 MG Orally Three times a day [facility] Rosaura Reid Levaquin 1 tablet Orally Active 500 MG Orally Once a da y [facility] Enay et Rahim Allergies, Adverse Reactions, Alerts Substance Category Reaction [...] Active 09/21/2016 Enayet Rahim Morphine Sulfate Adverse React ion Info Not Available Adverse Reaction Active 09/21/2016 Enayet Rahim Ketorolac Tromethamine Adverse Reaction Info Not Available Adverse Reaction Active 09/21/2016 Enayet Rahim Immunizations No Data Provided for This Section Results No Data Provided for This Section Pathology Reports No Data Provided for This Section Diagnostic Reports No Data Provided for This Section Consultation Notes No Data Provided for This Section Discharge Summaries No Data Provided for This Section History and Physicals No Data Provided for This Section Vital Signs Vital Sign Value Date Comments Source Weight 140 09/21/2016 Enayet Rahim Height 60 0 09/21/2016 Enayet Rahim Temperature Oral (F) 98.2 F 09/21/2016 Enayet Rahim Diastolic (mm Hg) 80 09/21/2016 Enayet Rahim Systolic (mm Hg) 134 09/21/2016 Enayet Rahim Weight 139 08/31/2016 Enayet Rahim Height 60 0 08/31/2016 Enayet Rahim Temperature Oral (F) 98.5 F 08/31/2016 Enayet Rahim Diastolic (mm Hg) 75 08/31/2016 Enayet Rahim Systolic (mm Hg) 113 08/31/2016 Enayet Rahim Weight 141 08/05/2016 Enayet Rahim Height 60 0 08/05/2016 Enayet Rahim Temperature Oral (F) 98.1 F 08/05/2016 Enayet Rahim Diastolic (mm Hg) 78 08/05/2016 Enayet Rahim Systolic (mm Hg) 115 08/05/2016 Enayet Rahim Weight 147 06/15/2016 Enayet Rahim Height 60 1 08/16/2015 Enayet Rahim Temperature Oral (F) 98.8 F 06/15/2016 Rosaura Reid Diastolic (mm Hg) 87 06/15/2016 Rosaura Reid Systolic (mm Hg) 123 06/15/2016 Rosaura Reid Encounters Location Location Details Encounter Type Encounter Number Reason For Visit Attending Provider ADM Date DC Date Status Source Rosaura Reid MD, PA Sick Visit [id number] 06/15/20 16 06/15/2016 Rosaura Reid MD, PA Sick Visit [id number] 06/15/20 16 06/15/2016 Rosaura Reid MD, PA Sick Visit [id number] 06/15/20 16 06/15/2016 Rosaura Reid MD, PA Sick Visit [id number] 06/15/20 16 06/15/2016 Rosaura Reid MD, PA Sick Visit [id number] 06/15/20 16 06/15/2016 Rosaura Reid MD, PA d/c from hospital pt needed refill dr neha correa [id number] 07/13/2016 07/13/2016 Rosaura Reid MD, PA d/c from hospital pt needed refill dr neha correa [id number] 07/13/2016 07/13/2016 Rosaura Reid MD, PA d/c from hospital pt needed refill dr neha correa [id number] 07/13/2016 07/13/2016 Rosaura Reid MD, PA d/c from [facility] pt needed refill dr neha johnson [id number] 07/13/2016 07/13/2016 Rosaura Reid MD, PA Sick Visit [id number] 08/05/19 17 08/05/2016 Rosaura Reid MD, PA Sick Visit [id number] 08/05/19 17 08/05/2016 Rosaura Reid MD, PA Sick Visit [id number] 08/05/19 17 08/05/2016 Rosaura Reid MD, PA Sick Visit [id number] 08/31/19 17 08/31/2016 Rosaura Reid MD, PA Sick Visit [id number] 08/31/19 17 08/31/2016 Rosaura Reid MD, PA kidney stones [id number] 09/02/19 17 09/02/2016 Rosaura Reid Procedures No Data Provided for This Section Assessment and Plan No Data Provided for This Section Plan of Care No Data Provided for This Section Social History Social History Date Source Social History ElementQualifiersDate Rep orted Tobacco Use: . Are you a: never smoker Aug 31, 2016 Sexual Hx: . Had sex in the last 12 months (vagin al, oral, or anal)?: Yes, with: Men only, Use protection?: No, Have you ever had an STD?: No Aug 31, 2016 Marital Status: . Aug 31, 2016 Caffeine intake? . Status: Yes, What type: Soft Drinks o nce a month Aug 31, 2016 Do you exercise? . Answer: No Aug 31, 2016 Do you drink alcohol? . Do you drink alcohol? No Aug 31, 2016 Travel outside [place]: . 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 Aug 31, 2016 08/31/2016 Rosaura Reid Family History Value Date S ource QualifierDescriptionCommentDate Reported Maternal Grandmother Comment not available Aug 05, 2016 Paternal Grandmother Comment not available Aug 05, 2016 Children Comment not available Aug 05, 2016 Maternal Grandfather Comment not available Aug 05, 2016 Father alive Comment not available Aug 05, 2016 Brother(s) Comment not available Aug 05, 2016 Mother alive Comment not available Aug 05, 2016 Paternal Grandfather Comment not available Aug 05, 2016 Sister(s) Comment not available Aug 05, 2016 Other: Comment not available Aug 05, 2016 General Family History Comment not available Aug 05, 2016 08/15/2016 Rosaura Reid Advance Directives No Data Provided for This Section Functional Status No Data Provided for This Section
--- OUTSIDE RECORDS SUMMARY | 2020-03-17 22:44 | XMS REPORT | Clinical Summary ---
Author Author MARINA [facility] Organization [facility] Address Unknown Phone Unavailable Care Team Providers Care Product Applications Scientist Name Role Phone Pcp, No PCP Unavailable Allergies Comments Active Allergy Reactions Severity Noted Date Adhesive Itching Medium 03/09/2018 headache Dexamethasone Sodium Itching Medium 7 Phosphate Chest pain Fentanyl Shortness Of High 07/14/2016 Breath, Rash Iodinated Contrast Media Hives Medium 05/30 Chest pain Morphine Shortness Of High 07/14/2016 Breath, Rash Pimecrolimus Itching, Rash Low 07/14/2016 Chest tightness Butorphanol Tartrate Rash Low 7 Leaves redness Transparent Dressings Other (See High 03/09/20 18 Comments) SEVERE VOMITING AND RASH Chest pain Ketorolac Rash, Nausea Low 07/14/2016 And Vomiting Chest pain Tightness in chest Tramadol Rash Low 07/14/2016 Elevated BP Ondansetron Hcl (Pf) Rash Low 7 Medications End Date Status Medication Sig Dispensed Refills Start Date Active carvedilol (COREG) 12.5 Take 12.5 mg 0 MG tabletIndications: by mouth 3 high blood pressure (three) times daily as needed (tachycardia) . Active ALPRAZolam (XANAX) 1 MG Take 1 mg by 0 tablet mouth 3 (three) times daily as needed . Active acetaminophen-codeine Take 1 tablet 0 (TYLENOL #3) 300-30 mg by mouth per tablet every 4 (four) hours as needed for Pain. Active HYDROcodone-acetaminophen Take 1 tablet 0 (NORCO 10-325) 10-325 mg by mouth per tablet every 6 (six) hours as needed for Pain. Active pancrelipase, Take 24,000 0 Iez-Jxab-Lsyi, (CREON) Units by 24,000-76,000 -120,000 mouth 3 unit CpDR capsule (three) times daily. 2019 Discontinued promethazine (PHENERGAN) Take 12.5 mg 0 12.5 MG tablet by mouth every 6 (six) hours as needed for Nausea. 12/26/2019 promethazine (PHENERGAN) Place 1 12 0 0 25 MG suppository suppository suppository 0 (25 mg total) rectally every 6 (six) hours as needed for Nausea for up to 7 days. Active Problems Problem Noted Date Drug-seeking behavior 12/20/2019 Chronic abdominal pain 12/20/2019 Colitis 06/15/2019 Bloody diarrhea 06/15/2019 Pancreatic mass 10/16/2018 Left sided abdominal pain 07/17/2018 Abdominal pain 06/15/2018 Adenocarcinoma of pancreas 06/15/2018 Left upper quadrant pain 05/24/2018 Hepatic steatosis 05/02/2018 Elevated LFTs 04/27/2018 Hyperkalemia 04/27/2018 Hypermagnesemia 04/27/2018 Diarrhea 04/27/2018 Pancreatic cancer 04/26/2018 Cancer related pain 04/26/2018 LUQ abdominal pain 04/25/2018 Medullary sponge kidney 01/28/2018 Bilateral nephrolithiasis 01/28/2018 Nausea & vomiting 01/28/2018 Pancreatic adenocarcinoma 11/22/2017 Chronic pancreatitis, unspecified pancreatitis type 10/22/2017 s/p staging laparoscopy, pancreas mass biopsy, draina ge of pancreas abscess 10/22/2017 11/07/17 Encounters Care Team Description Date Type Nikki Peña DO Chronic abdominal pain (Primary Dx); Drug-seeking behavior 12/20/2019 Emergency Emergency Medicine 12/20/2019 Travel Loyda Guzman MD Chronic abdominal pain (Primary Dx); Non-intractable vomiting with nausea, unspecified vomiting type 2019 Emergency Emergency Medicine 12/18/2019 Travel Leticia Cheema MD [place], MD Ahbi Hubbard, Hakeem Thomas MD Generalized abdominal pain (Primary Dx); Nausea; Lower abdominal pain; Bloody diarrhea; Medullary sponge kidney of both kidneys; Pancreatic adenocarcinoma (HCC); Adenocarcinoma of pancreas (HCC) 06/15/2019 Emergency Emergency Medicine Edwin Bahena MD Malignant neoplasm of pancreas, unspecif ied location of malignancy (HCC) 05/24/2019 Hospital Radiology Encounter Edwin Bahena MD 1.5, [facility] Felix Mr Malignant neoplasm of pancreas, unspecif ied location of malignancy (HCC); Medullary cystic kidney; Calculus of other lower urinary tract location; Abdominal pain, unspecified abdominal location; Hematuria, unspecified type; Disease of pancreas, unspecified 05/24/2019 Hospital Magnetic Resonance Encounter Imaging Edwin Bahena MD Malignant neoplasm of pancreas, unspecif ied location of malignancy (HCC) (Primary Dx) 05/24/2019 Outside Orders Central Scheduling Edwin Bahena MD Malignant neoplasm of pancreas, unspecif ied location of malignancy (HCC) (Primary Dx); Medullary cystic kidney; Calculus of other lower urinary tract location; Abdominal pain, unspecified abdominal location; Hematuria, unspecified type; Disease of pancreas, unspecified 03/29/2019 Outside Orders Central Scheduling after 03/17/2019 Family History Medical History Relation Name Comments Allergies Father Hypertension Father Breast cancer Maternal Aunt Cholecystitis Maternal Grandmother Diabetes Maternal Grandmother Heart attack Maternal Grandmother Heart disease Maternal Grandmother Hyperlipidemia Maternal Grandmother Cholecystitis Mother Hyperlipidemia Mother Allergies Paternal Grandfather Hypertension Paternal Grandfather Relation Name Status Comments Father Alive Maternal Aunt Alive Maternal Grandmother Mother Alive Paternal Grandfather Social History Date Tobacco Use Types Packs/Day Years Used Never Smoker Smokeless Tobacco: Never Used Alcohol Use Drinks/Week oz/Week Comments No Sex Assigned at Date Recorded Not on file Industry Job Start Date Occupation Not on file Not on file Not on file Travel End Travel History Travel Start No recent travel history available. Last Filed Vital Signs Time Taken Vital Sign Reading 12/20/2019 1:42 AM CDT Blood Pressure 133/94 12/20/2019 1:42 AM CDT Pulse 128 12/20/2019 1:42 AM CDT Temperature 37 C (98.6 F) 12/20/2019 1:42 AM CDT Respiratory Rate 18 12/20/2019 1:42 AM CDT Oxygen Saturation 100% - Inhaled Oxygen - Concentration 12/20/2019 1:42 AM CDT Weight 67.1 kg (148 lb) 12/20/2019 1:42 AM CDT Height 152.4 cm (5') 12/20/2019 1:42 AM CDT Body Mass Index 28.9 Plan of Treatment Not on file Procedures Comments Procedure Name Priority Date/Time Associated Diag nosis CBC W/PLT COUNT & AUTO STAT 2019 DIFFERENTIAL 4:05 AM CDT CBC W/PLT COUNT & AUTO STAT 2019 DIFFERENTIAL 4:05 AM CDT STOOL PATH CHARGE Routine 06/15/2019 6:29 AM [facility] SHIGA TOXIN SCREEN Routine 06/15/2019 6:29 AM [facility] C. DIFFICILE GDH TOXIN STAT 06/15/2019 6:29 AM [facility] STOOL CULTURE + SHIGA STAT 06/15/2019 TOXIN 6:[address] ABDOMEN/PELVIS WITHOUT STAT 06/15/2019 IV CONTRAST 6:19 AM [facility] CBC W/PLT COUNT & AUTO STAT 06/15/2019 DIFFERENTIAL 12:07 AM [facility] PHOSPHORUS STAT 06/15/2019 12:07 AM [facility] MAGNESIUM STAT 06/15/2019 12:07 AM [facility] CBC W/PLT COUNT & AUTO STAT 06/15/2019 DIFFERENTIAL 12:07 AM [facility] LIPASE STAT 06/15/2019 12:07 AM [facility] AMYLASE STAT 06/15/2019 12:07 AM [facility] HEPATIC FUNCTION PANEL STAT 06/15/2019 12:07 AM [facility] BASIC METABOLIC PANEL (7) STAT 06/15/2019 12:07 AM [facility] MR ABDOMEN WITH & WITHOUT Routine 05/24/2019 Danielle gnant neoplasm of IV CONTRAST 3:15 PM [facility] pancreas, unspecifi ed location of malignancy (HCC) Medullary cystic kidney Calculus of other lower urinary tract location Abdominal pain, unspecified abdominal location Hematuria, unspecified type Disease of pancreas, unspecified XR CHEST 2 VIEWS Routine 05/24/2019 Malignant jose plasm of 1:30 PM [facility] pancreas, unspecified location of malignancy (HCC) after 03/17/2019 Results * CBC with platelet count + automated diff (2019 4:05 AM CDT) Only the most recent of 2 results within the time period is included. WBC 8.1 3.5 - 10.5 K/L [facility] RBC 4.40 3.93 - 5.22 M/L [facility] Hemoglobin 12.4 11.2 - 15.7 GM/DL [facility] Hematocrit 38.3 34.1 - 44.9 % [facility] MCV 87.0 79.4 - 94.8 fL [facility] MCH 28.2 25.6 - 32.2 pg [facility] MCHC 32.4 32.2 - 35.5 GM/DL [facility] RDW 15.4 (H) 11.7 - 14.4 % [facility] Platelets 576 (H) 150 - 450 K/CU MM [facility] MPV 9.8 9.4 - 12.3 fL [facility] nRBC 0 0 - 0 /100 WBC [facility] % Neutros 41 % [facility] % Lymphs 42 % [facility] % Monos 12 % [facility] % Eos 4 % [facility] % Baso 1 % [facility] # Neutros 3.28 1.56 - 6.13 K/L [facility] # Lymphs 3.40 1.18 - 3.74 K/L [facility] # Monos 1.00 (H) 0.24 - 0.36 K/L [facility] # Eos 0.34 0.04 - 0.36 K/L [facility] # Baso 0.04 0.01 - 0.08 K/L [facility] Immature 0 0 - 1 % [facility] Granulocytes-Relative [facility] Specimen Blood Performing Organization Address City/[facility] Ph one Number [address] [facility] * Clostridium difficile GDH Toxin (06/15/2019 6:29 AM [facility]ER) C. Difficle Toxin Negative Negative [facility] C. Difficile GD Antigen Positive (A)Comment: C. Negative [facility] difficile present but toxin [facility] not detected. Indicates colonization with non-toxigenic strain or level of toxin below detectable levels. No need for enteric isolation. Treatment is rarely needed (only when strong clinical suspicion for Clostridium difficile infection) Specimen Stool Narrative Performed At Testing performed by [employer] Rapid [employer] Assay.F or [facility], published [facility] sensitivity of the assay is 98.7% samuel red to cytotoxicity testing.For Toxin [facility] AB, published sensitivity is 87.8% and specificity 99.4% compared to cytotoxicity testing. Verification of kit performance was don e by the [facility] Microbiology Lab prior to clinical use. Performing Organization Address City/[facility] Ph one Number [address] [facility] * STOOL PATH CHARGE (06/15/2019 6:29 AM [facility]) Pathogen exam charged Done [facility] Specimen Stool Performing Organization Address City[facility] Ph one Number [address] [facility] * Shiga Toxin Screen (06/15/2019 6:29 AM [facility]ER) Shiga toxin 1 Not detected Not detected [facility] Shiga toxin 2 Not detected Not detected [facility] Specimen Stool Performing Organization Address City/[facility] Ph one Number [facility] [address] [place], [place] [address] [facility] * Stool culture + Shiga toxin+Salmonella+Campylobacter (06/15/2019 6:29 AM [facility]) Result No Salmonella, Shigella or [facility] Campylobacter isolated [facility] Specimen Stool Performing Organization Address City/[facility] one Number [facility] [address] [place], [place] [address] [facility] * CT abdomen pelvis without contrast (06/15/2019 6:19 AM [facility]) Specimen Narrative Performed At FINAL REPORT [facility] CLINICAL HISTORY: Abdominal pain, hemat ochezia FINDINGS: Multiple axial images of the abdomen an d pelvis were performed without intravenous contrast. Oral cont rast was not given. This exam was performed according to ou r departmental dose-optimization program, which includ es automated exposure control, adjustment of the mA and/or kV accordin g to patient size and/or use of the iterative reconstruction techniq ue. Comparison: 10/22/2018 Lower chest: Clear lungs. No pleural ef fusion or pneumothorax. Visualized cardiac contours normal. Par tially visualized bilateral breast prostheses. Liver: Hepatic steatosis Gallbladder and biliary tree: Previous cholecystectomy Spleen: Previous splenectomy Adrenal Glands: No significant findings . Kidneys and ureters: Several bilateral nonobstructing kidney stones measuring 3 to 4 mm. No ureteral stone or noncontrast CT evidence of obstructive uropathy. Stomach and Duodenum: No significant fi ndings. Pancreas: Previous subtotal pancreatect edward. No retroperitoneal fluid collection. Bowel: No bowel obstruction or pneumato sis intestinalis. No focal mural abnormality in the colon. Appendix: Normal. Bladder: No significant findings. Major vascular structures: No significa nt findings. Reproductive organs: Previous hysterect edward. Other: No free air, fluid or adenopathy Skeleton: No acute bony abnormality. IMPRESSION: No CT abnormality to explain the patien t's symptoms. Hepatic steatosis. Bilateral nonobstructing kidney stones. No ureteral stone or noncontrast CT evidence of obstructive uropathy. Extensive postsurgical changes, as desc ribed. Signed: Renato Cassidy MD Report Verified Date/Time: 06:29:54 Procedure Note Interface, External Ris In - 06/15/2019 6:32 AM [facility] FINAL REPORT CLINICAL HISTORY: Abdominal pain, hematochezia FINDINGS: Multiple axial images of the abdomen and pelvis were performed without intravenous contrast. Oral contrast was not given. This exam was performed according to our departmental dose-optimization program, which includes automated exposure control, adjustment of the mA and/or kV according to patient size and/or use of the iterative reconstruction technique. Comparison: 10/22/2018 Lower chest: Clear lungs. No pleural effusion or pneumothorax. Visualized cardiac contours normal. Partially visualized bilateral breast prostheses. Liver: Hepatic steatosis Gallbladder and biliary tree: Previous cholecystectomy Spleen: Previous splenectomy Adrenal Glands: No significant findings. Kidneys and ureters: Several bilateral nonobstructing kidney stones measuring 3 to 4 mm. No ureteral stone or noncontrast CT evidence of obstructive uropathy. Stomach and Duodenum: No significant findings. Pancreas: Previous subtotal pancreatectomy. No retroperitoneal fluid collection. Bowel: No bowel obstruction or pneumatosis intestinalis. No focal mural abnormality in the colon. Appendix: Normal. Bladder: No significant findings. Major vascular structures: No significant findings. Reproductive organs: Previous hysterectomy. Other: No free air, fluid or adenopathy Skeleton: No acute bony abnormality. IMPRESSION: No CT abnormality to explain the patient's symptoms. Hepatic steatosis. Bilateral nonobstructing kidney stones. No ureteral stone or noncontrast CT evidence of obstructive uropathy. Extensive postsurgical changes, as described. Signed: Renato Cassidy MD Report Verified Date/Time: 06/15/2019 06:29:54 Performing Organization Address City/State/Zipcode Ph one Number [facility] * Phosphorus (06/15/2019 12:07 AM [facility]ER) Phosphorus 2.8 2.3 - 4.7 mg/dL [facility] Specimen Blood Performing Organization Address [facility] Ph one Number [address] 0 [phone] [place] [address] * Magnesium (06/15/2019 12:07 AM [facility]ER) Magnesium 2.0 1.6 - 2.6 mg/dL [facility] Specimen Blood Performing Organization Address [facility] Ph one Number [address] [facility] * Lipase (06/15/2019 12:07 AM [facility]) Lipase 4 (L) 8 - 78 U/L [facility] Specimen Blood Performing Organization Address [facility] Ph one Number [address] 0 [phone] [place] [address] * Amylase (06/15/2019 12:07 AM [facility]ER) Amylase 40 25 - 125 U/L [facility] Specimen Blood Performing Organization Address [facility] one Number [address] 0 [phone] [place] [address] * Hepatic function panel (06/15/2019 12:07 AM [facility]) Protein, Total 8.1 6.0 - 8.3 gm/dL [facility] Albumin 4.5 3.5 - 5.0 g/dL [facility] Total Bilirubin 0.4 0.2 - 1.2 mg/dL [facility] Bilirubin, Direct 0.2 0.1 - 0.5 mg/dL [facility] Alkaline Phosphatase 120 40 - 150 U/L [facility] AST 37 (H) 5 - 34 U/L [facility] ALT 39 6 - 55 U/L [facility] Specimen Blood Performing Organization Address City/[facility] Ph one Number [address] [facility] * Basic Metabolic Panel (06/15/2019 12:07 AM [facility]) Sodium 139 136 - 145 meq/L [facility] Potassium 3.6 3.5 - 5.1 meq/L [facility] Chloride 109 (H) 98 - 107 meq/L [facility] CO2 23 22 - 29 meq/L [facility] BUN 13 7 - 21 mg/dL [facility] Creatinine 0.83 0.57 - 1.25 mg/dL [facility] Glucose 109 (H) 70 - 105 mg/dL [facility] Calcium 9.4 8.4 - 10.2 mg/dL [facility] EGFR 77Comment: ESTIMATED GFR IS mL/min/1.73 sq m [facility] NOT ACCURATE CREATININE [facility] CLEARANCE IN PREDICTING GLOMERULAR FILTRATION RATE. ESTIMATED GFR IS NOT APPLICABLE FOR DIALYSIS PATIENTS. Specimen Blood Performing Organization Address [facility] one Number [address] [facility] * MR abdomen without & with IV contrast (05/24/2019 3:15 PM [facility]) Specimen Narrative Performed At FINAL REPORT [facility] MRI of the abdomen dated May 24 019 COMPARISON: December 28, 2018 Comment: Multiplanar T1 and T2-weighted images of the abdomen, postcontrast axial and coronal T1-weigh chandler images of the abdomen were obtained. Patient is status post distal pancreate ctomy and splenectomy. The remaining head and uncinate process of the pancreas are normal in appearance. Liver is normal in size. There is diffu sely decreased signal intensity on out of phase examination a s compared to that of in phase examination consistent with fatty hepat ic infiltrate. A 5 mm cyst is seen in the segment 5 of the liver. No suspicious mass or abnormal enhancement is seen in the liver. Gallb ladder is not visualized. No biliary dilatation is seen. The adrenals and kidneys are normal in size. Both kidneys are normal in size and functioning with bilateral excretion. No mass or adenopathy is seen in the ab domen. The small and large bowel are unremarka ble. IMPRESSION: 1. Stable interval examination of the a bdomen. 2. Status post distal pancreatectomy an d splenectomy. 3. Fatty liver. Signed: Al Bravo MD Report Verified Date/Time: 9 18:55:37 Reading Location: [facility] C0[facility] CT Body Reading Room Procedure Note Interface, External Ris In - 05/24/2019 6:58 PM [facility] FINAL REPORT MRI of the abdomen dated May 24, 2019 COMPARISON: December 28, 2018 Comment: Multiplanar T1 and T2-weighted images of the abdomen, postcontrast axial and coronal T1-weighted images of the abdomen were obtained. Patient is status post distal pancreatectomy and splenectomy. The remaining head and uncinate process of the pancreas are normal in appearance. Liver is normal in size. There is diffusely decreased signal intensity on out of phase examination as compared to that of in phase examination consistent with fatty hepatic infiltrate. A 5 mm cyst is seen in the segment 5 of the liver. No suspicious mass or abnormal enhancement is seen in the liver. Gallbladder is not visualized. No biliary dilatation is seen. The adrenals and kidneys are normal in size. Both kidneys are normal in size and functioning with bilateral excretion. No mass or adenopathy is seen in the abdomen. The small and large bowel are unremarkable. IMPRESSION: 1. Stable interval examination of the ab domen. 2. Status post distal pancreatectomy and splenectomy. 3. Fatty liver. Signed: Al Bravo MD Report Verified Date/Time: 05/24/2019 18:55:37 Reading Location: [facility] B1 [id number] CT Body Reading Room Performing Organization Address City/State/Zipcode Ph one Number [facility] * XR Chest 2 Views (05/24/2019 1:30 PM [facility]ER) Specimen Narrative Performed At FINAL REPORT [facility] CHEST PA AND LATERAL Comparison exam: 10/22/2018 History provided: C 25.9 Heart size normal. Lungs are clear and vascularity normal. Port-A-Cath from left jugular approach with catheter tip at the level of the SVC. Signed: Abi Davalos MD Report Verified Date/Time: 9 16:25:02 Reading Location: [facility] Radiology Readi ng Room Procedure Note Interface, External Ris In - 05/24/2019 4:27 PM [facility]ER FINAL REPORT CHEST PA AND LATERAL Comparison exam: 10/22/2018 History provided: C 25.9 Heart size normal. Lungs are clear and vascularity normal. Port-A-Cath from left jugular approach with catheter tip at the level of the SVC. Signed: Abi Davalos MD Report Verified Date/Time: 05/24/2019 16:25:02 Reading Location: [facility] Radiology Reading Room Performing Organization Address City/State/Zipcode Ph one Number [facility] after 03/17/2019 Insurance Payer Benefit Subscriber ID Type Phone Address Plan / Group [facility] xxxxxxxxx HMO/PO S CARE POS [employer] [id number] Advance Directives For more information, please contact: [facility] [address] [place] [address] Date Inactivated Comments Code Status Date Activated 06/15/2019 4:50 PM Full Code 06/15/2019 6:00 AM This code status was determined by: Patient 10/23/2018 6:13 PM Full Code 10/22/2018 5:33 PM This code status was determined by: Patient 10/20/2018 5:13 PM Full Code 10/16/2018 5:04 PM This code status was determined by: Patient 10/16/2018 5:03 PM Full Code 10/16/2018 6:45 AM This code status was determined by: Patient 10/16/2018 6:29 AM Full Code 07/15/2018 6:19 AM This code status was determined by: Patient
--- OUTSIDE RECORDS SUMMARY | 2020-03-17 22:50 | XMS REPORT | Continuity of Care Document ---
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 Ashlie ry 12 Hours [facility] Fosfomycin Tromethamine (Monurol) 3 Gm Packet, 3 G Ora l Fosfomycin Tromethamine (Monurol) 3 Gm Packet, 3 G Oral 2018-05-15 00:00:00 No 3 Use As Directed [facility] Potassium Citrate 10 Meq Tablet.er, 10 Meq Oral Potass ium Citrate 10 Meq Tablet.er, 10 Meq Oral 2018-01-13 00:00:00 No 10 D aily [facility] Vancomycin Hcl 500 Mg Vial, 250 Mg Oral Vancomycin Hcl 500 M g Vial, 250 Mg Oral 2018-01-13 00:00:00 No 250 Every 6 Hours [facility] Alprazolam 1 Mg Tablet, 1 Mg Oral Alprazolam 1 Mg Tablet, 1 Mg O ral 2017-06-22 00:00:00 No 1 Three Times A Day [facility] Ambien Cr , 12.5 Mg Oral Ambien Cr , 12.5 Mg Oral 2017-06-22 00: 00:00 No 12.5 Bedtime [facility] Diazepam 5 Mg Tablet, 3 Mg Oral Diazepam 5 Mg Tablet, 3 Mg Oral 2017-06-22 00:00:00 No 3 Four Times Daily [facility] Potassium Citrate 10 Meq Tablet.er, 10 Meq Oral Potass ium Citrate 10 Meq Tablet.er, 10 Meq Oral 2017-06-22 00:00:00 No 10 T wice A Day [facility] Ciprofloxacin Hcl (Cipro) 500 Mg Tablet, 500 Mg Oral C iprofloxacin Hcl (Cipro) 500 Mg Tablet, 500 Mg Oral 2017-01-06 00:00:00 No 500 Twice A Day [facility] Gabapentin (Neurontin) 300 Mg Capsule, 600 Mg Oral David apentin (Neurontin) 300 Mg Capsule, 600 Mg Oral 2016-10-27 00:00:00 No 600 Thr ee Times A Day [facility] Cefuroxime Axetil (Ceftin) 500 Mg Tablet, 500 Mg Oral Cefuroxime Axetil (Ceftin) 500 Mg Tablet, 500 Mg Oral 2016-04-15 00:00:00 No 500 Twice A Day [facility] Levofloxacin (Levaquin) 500 Mg Tablet, 500 Mg Oral Lev ofloxacin (Levaquin) 500 Mg Tablet, 500 Mg Oral 2016-01-04 00:00:00 No 500 D aily [facility] Ciprofloxacin Hcl (Cipro) 500 Mg Tablet, 500 Mg Oral C iprofloxacin Hcl (Cipro) 500 Mg Tablet, 500 Mg Oral 2016-01-01 00:00:00 No 500 Every 12 Hours [facility] Linezolid (Zyvox) 600 Mg Tablet, 600 Mg Oral Linezolid (Zyvox) 600 Mg Tablet, 600 Mg Oral 2016-01-01 00:00:00 No 600 Every 12 Oni rs [facility] Acetaminophen/Hydrocodone Bitart ([place] 10MG-325MG*) 1 Ea Tab, 1 Tab Oral Acetaminophen/Hydrocodone Bitart ([place] 10MG-325MG*) 1 Ea Tab, 1 Tab Oral 2015-10-26 00:00:00 No 1 Every 4-6 Hours as n eeded [facility] Cefepime Hcl/D5w (Cefepime-Dextrose 1 Gm /50 Ml) 1 Gm/50 Ml Piggyback, 1 G Intraven Cefepime Hcl/D5w (Cefepime-Dextrose 1 Gm /50 Ml) 1 Gm/50 Ml Piggyback, 1 G Intraven 2015-10-26 00:00:00 No 1 Twice A Day [facility] Hydrocodone Bit/Acetaminophen (Lortab 10-500 Tablet) 1 Each Tablet, 1 Tab Oral Hydrocodone Bit/Acetaminophen (Lortab 10-500 Tablet) 1 Each Tablet, 1 Tab Oral 2015-10-26 00:00:00 No 1 Four Times Daily [facility] Levothroxine , 0.5 Mg Oral Levothroxine , 0.5 Mg Oral 2015 00:00:00 No .5 Daily [facility] Motrin , 800 Mg Oral Motrin , 800 Mg Oral 2015-10-26 00:00:00 No 800 As Needed [facility] Phenazopyridine Hcl (Pyridium) 200 Mg Tablet, 1 Tab Or al Phenazopyridine Hcl (Pyridium) 200 Mg Tablet, 1 Tab Oral 2015-10-26 00:00:00 No 1 Rt Tid [facility] Sulfamethoxazole/Trimethoprim (Bactrim Ds Tablet) 1 Ea ch Tablet, 1 Tab Oral Sulfamethoxazole/Trimethoprim (Bactrim Ds Tablet) 1 Each Tablet, 1 Tab Oral 2015-10-26 00:00:00 No 1 Twice A Day [facility] Amoxicillin 250 Mg Capsule, Amoxicillin 250 Mg Capsule, 2012-12-21 00:00:00 No [facility] Ciprofloxacin Hcl (Cipro) 250 Mg Tablet, Ciprofloxacin Hcl (Cipro) 250 Mg Tablet, 2012-12-21 00:00:00 No [facility] Nadolol , Nadolol , 2012-06-09 00:00:00 No [facility] Pyridium , Pyridium , 2012-06-09 00:00:00 [facility] Vital Signs Vital Name Observation Time Observation Value Comments Source Systolic blood pressure 2020-02-18 15:00:00 125 mm[Hg] Timo Anne Diastolic blood pressure 2020-02-18 15:00:00 71 mm[Hg] Timo Anne Heart rate 2020-02-18 15:00:00 128 /min Timo Anne Respiratory rate 2020-02-18 15:00:00 20 /min Ingrid Anne Oxygen saturation in Arterial blood by Pulse oximetry 02-17 15:00:00 97 /min Timo Anne Body temperature 2020-02-18 11:10:00 37.44 Hazel Ingrid Anne Body height 2020-02-18 11:09:00 152.4 cm Timo Anne Body weight 2020-02-18 11:09:00 64.411 kg Timo Anne BMI 2020-02-18 11:09:00 27.73 kg/m2 Timo Anne Systolic blood pressure 2019-12-20 01:42:00 133 mm[Hg] [facility] Diastolic blood pressure 2019-12-20 01:42:00 94 mm[Hg] [facility] Heart rate 2019-12-20 01:42:00 128 /min [facility] Body temperature 2019-12-20 01:42:00 37 Hazel [facility] Respiratory rate 2019-12-20 01:42:00 18 /min [facility] Body height 2019-12-20 01:42:00 152.4 cm [facility] Body weight Measured 2019-12-20 01:42:00 67.132 kg [facility] BMI 2019-12-20 01:42:00 28.90 kg/m2 [facility] Oxygen saturation in Arterial blood by Pulse oximetry 12-19 01:42:00 100 [facility] 2016-09-21 18:00:00 [facility] Height 2016-09-21 18:00:00 [facility] Temperature Oral (F) 2016-09-21 18:00:00 98.2 F [facility] Diastolic (mm Hg) 2016-09-21 18:00:00 [facility] [place] Systolic (mm Hg) 2016-09-21 18:00:00 Fabrizio [facility] [place] Weight 2016-08-31 15:45:00 [facility] Height 2016-08-31 15:45:00 [facility] Temperature Oral (F) 2016-08-31 15:45:00 98.5 F [facility] Diastolic (mm Hg) 2016-08-31 15:45:00 [facility] Systolic (mm Hg) 2016-08-31 15:45:00 Fabrizio [facility] [place] Weight 2016-08-05 20:45:00 [facility] Height 2016-08-05 20:45:00 [facility] Temperature Oral (F) 2016-08-05 20:45:00 98.1 F [facility] Diastolic (mm Hg) 2016-08-05 20:45:00 [facility] [place] Systolic (mm Hg) 2016-08-05 20:45:00 Fabrizio [facility] Weight 2016-06-15 22:30:00 [facility] Height 2016-06-15 22:30:00 [facility] Temperature Oral (F) 2016-06-15 22:30:00 98.8 F [facility] Diastolic (mm Hg) 2016-06-15 22:30:00 [facility] orial Mahin Systolic (mm Hg) 2016-06-15 22:30:00 Fabrizio rial [facility] Procedures Procedure Date / Time Performed Performing Clinician [facility] e CT ABDOMEN PELVIS WO CONTRAST 2020-02-18 15:00:00 AbrahamAngel brooks URINE CULTURE 2020-02-18 14:07:00 Abraham, Angel Anne VENOUS BLOOD GAS 2020-02-18 13:37:00 Angel Rosario URINALYSIS SCREEN AND MICROSCOPY, WITH REFLEX TO CULTURE 202 13:37:00 Angel Rosario COMPREHENSIVE METABOLIC PANEL 2020-02-18 12:37:00 Angel Rosario HC COMPLETE BLD COUNT W/AUTO DIFF 2020-02-18 12:37:00 Abraham, Larissa Anne PROTHROMBIN TIME WITH INR 2020-02-18 12:37:00 Abraham, Angel Anne PARTIAL THROMBOPLASTIN TIME (PTT) 2020-02-18 12:37:00 Abraham, Larissa Anne LACTIC ACID LEVEL, SEPSIS - NOW AND REPEAT 2X EVERY 3 HOURS 2020-02-18 12:37:00 AbrahamAngel brooks LIPASE LEVEL 2020-02-18 12:37:00 Angel Rosario HCG QUALITATIVE, SERUM SCREEN 2020-02-18 12:37:00 AbrahamAngel brooks ESTIMATED GFR 2020-02-18 12:37:00 Angel Rosario HEMOGLOBIN & HEMATOCRIT 2020-01-21 09:40:00 Erica Menezes CANCER ANTIGEN 19-9 2020-01-21 09:40:00 Erica Menezes ENTERIC BACTERIAL PANEL 2020-01-21 06:04:00 Earl Cee ENTERIC PARASITIC PANEL 2020-01-21 06:04:00 Earl Cee HC COMPLETE BLD COUNT W/AUTO DIFF 2020-01-18 11:40:00 Sanket, Roberto khanmary grace Anne BASIC METABOLIC PANEL 2020-01-18 11:40:00 Sanket, Mindy Quinteroto n Mandaen ESTIMATED GFR 2020-01-18 11:40:00 Sanket Mindy [place] Meth odist LACTIC ACID LEVEL, SEPSIS - NOW AND REPEAT 2X EVERY 3 HOURS 2020-01-18 00:32:00 Abraham, Angel Anne TROPONIN, I-STAT 2020-01-18 00:32:00 Abraham, Angel Anne COVID-19 QUALITATIVE PCR 2020-01-17 22:12:00 Abraham, Angel Anne HCG QUALITATIVE, SERUM SCREEN 2020-01-17 20:52:00 Sanket Mindy Anne TROPONIN 2020-01-17 19:45:00 Abraham, Angel Anne LACTIC ACID LEVEL, SEPSIS - NOW AND REPEAT 2X EVERY 3 HOURS 2020-01-17 19:45:00 Abraham, Angel Anne CT ABDOMEN PELVIS WO CONTRAST 2020-01-17 17:42:33 Abraham, Angel Anne XR CHEST 1 VW PORTABLE 2020-01-17 17:33:27 Abraham, Angel Anne ECG ED PRELIMINARY INTERPRETATION 2020-01-17 17:23:41 Abraham, Larissa Anne BLOOD CULTURE, AEROBIC & ANAEROBIC 2020-01-17 16:55:00 Abraham, Barron Anne BLOOD CULTURE, AEROBIC & ANAEROBIC 2020-01-17 16:48:00 Abraham, Barron Anne VENOUS BLOOD GAS 2020-01-17 16:47:00 Abraham, Angel Anne COMPREHENSIVE METABOLIC PANEL 2020-01-17 16:42:00 Abraham, Angel Anne HC COMPLETE BLD COUNT W/AUTO DIFF 2020-01-17 16:42:00 Abraham, Larissa Anne PROTHROMBIN TIME WITH INR 2020-01-17 16:42:00 Abraham, Angel Anne PARTIAL THROMBOPLASTIN TIME (PTT) 2020-01-17 16:42:00 Abraham, Larissa Anne B NATRIURETIC PEPTIDE 2020-01-17 16:42:00 Abraham, Angel Anne TROPONIN 2020-01-17 16:42:00 Abraham, Angel Anne LACTIC ACID LEVEL, SEPSIS - NOW AND REPEAT 2X EVERY 3 HOURS 2020-01-17 16:42:00 Abraham, Angel Anne TYPE AND SCREEN 2020-01-17 16:42:00 Abraham, Angel Anne ESTIMATED GFR 2020-01-17 16:42:00 Abraham, Angel Anne LIPASE LEVEL 2020-01-17 16:42:00 Abraham, Angel Anne ECG 12-LEAD 2020-01-17 16:33:24 Abraham, Angel Anne CBC W/PLT COUNT & AUTO DIFFERENTIAL 2019 04:05:00 Loyda Edwards [facility] URINE CULTURE 2019-12-18 05:00:00 Juan Hilario URINALYSIS SCREEN AND MICROSCOPY, WITH REFLEX TO CULTURE 202 05:00:00 Juan Hilario HC COMPLETE BLD COUNT W/AUTO DIFF 2019-12-18 01:00:00 Poonam Resendiz in Duc Anne COMPREHENSIVE METABOLIC PANEL 2019-12-18 01:00:00 Josephine Resendiz Timo Anne LIPASE LEVEL 2019-12-18 01:00:00 Josephine Resendiz Christinaivette Timo Lyle ethodist PROTHROMBIN TIME WITH INR 2019-12-18 01:00:00 Josephine Resendiz Duc Anne PARTIAL THROMBOPLASTIN TIME (PTT) 2019-12-18 01:00:00 Poonam Resendiz in [place] Anne ESTIMATED GFR 2019-12-18 01:00:[address] ABDOMEN PELVIS WO CONTRAST 2019-12-18 00:25:15 HumbertoJosephine benavidesivette Anne XR WRIST 3+ VW RIGHT 2019-09-25 14:06:35 Martin Garcia XR HIPS BILATERAL 2 VIEWS 2019-09-25 14:05:52 Martin Garcia XR LUMBAR SPINE 2 OR 3 VW 2019-09-25 14:05:22 Martin Garcia XR WRIST 3+ VW LEFT 2019-09-25 14:04:45 Martin Garcia Timo Anne XR FEMUR 2 VW RIGHT 2019-09-24 14:35:40 Douglas Reddy URINE CULTURE 2019-09-24 14:30:00 Douglas Reddy URINALYSIS SCREEN AND MICROSCOPY, WITH REFLEX TO CULTURE 13:48:00 Douglas Reddy HCG QUALITATIVE, URINE SCREEN 2019-09-24 13:48:[address] ABDOMEN PELVIS WO CONTRAST 2019-09-24 12:45:46 Douglas Redyd HC COMPLETE BLD COUNT W/AUTO DIFF 2019-09-24 12:30:00 Jaycob Reddy COMPREHENSIVE METABOLIC PANEL 2019-09-24 12:30:00 Douglas Reddy LIPASE LEVEL 2019-09-24 12:30:00 Douglas Reddy HCG QUALITATIVE, SERUM SCREEN 2019-09-24 12:30:00 Douglas Reddy ESTIMATED GFR 2019-09-24 12:30:00 Douglas Reddy STOOL CULTURE + SHIGA TOXIN 2019-06-15 06:29:00 Leticia Melo [facility] C. DIFFICILE GDH TOXIN 2019-06-15 06:29:00 Leticia Mleo [facility] SHIGA TOXIN SCREEN 2019-06-15 06:29:00 Leticia Melo [facility] STOOL PATH CHARGE 2019-06-15 06:29:00 Leticia Melo [facility] CT ABDOMEN/PELVIS WITHOUT IV CONTRAST 2019-06-15 06:19:00 Leticia Melo [facility] BASIC METABOLIC PANEL (7) 2019-06-15 00:07:00 Erik Cerrato [facility] HEPATIC FUNCTION PANEL 2019-06-15 00:07:00 Erik Cerrato [facility] AMYLASE 2019-06-15 00:07:00 Erik Cerrato [facility] LIPASE 2019-06-15 00:07:00 Erik Cerrato [facility] MAGNESIUM 2019-06-15 00:07:00 Leticia Meloe [facility] PHOSPHORUS 2019-06-15 00:07:00 [place] [facility] CBC W/PLT COUNT & AUTO DIFFERENTIAL 2019-06-15 00:07:00 Chantal Cerrato [facility] MR ABDOMEN WITH & WITHOUT IV CONTRAST 2019-05-24 15:15:00 Edwin Astudillo [facility] XR CHEST 2 VIEWS 2019-05-24 13:30:00 Edwin Bahena [facility] HC COMPLETE BLD COUNT W/AUTO DIFF 2019-05-21 06:56:00 Gregg Marques Mandaen COMPREHENSIVE METABOLIC PANEL 2019-05-21 06:56:00 Anne Marques Mandaen ESTIMATED GFR 2019-05-21 06:56:00 Anne Marques on Mandaen CT of abdomen and pelvis without contrast 2019-05-21 00:00:00 CONNIE HUFFMAN [facility] ECG 12-LEAD 2019-05-20 17:10:49 Negrito Busby [facility] ECG 12-LEAD 2019-05-20 02:35:[address] ABDOMEN PELVIS WO CONTRAST 2019-05-20 02:20:18 Negrito Busbyist GASTROINTESTINAL PANEL 2019-05-20 02:00:00 Negrito Busby Mandaen OCCULT BLOOD, STOOL 2019-05-20 02:00:00 Negrito Busby HC COMPLETE BLD COUNT W/AUTO DIFF 2019-05-20 02:00:00 Janes Slater COMPREHENSIVE METABOLIC PANEL 2019-05-20 02:00:00 Alfreda Slater AMYLASE LEVEL 2019-05-20 02:00:00 SiruchuGail LIPASE LEVEL 2019-05-20 02:00:00 matthew Gail Anne ESTIMATED GFR 2019-05-20 02:00:00 Gail Slater Plan of Care Planned Activity Planned Date Details Comments Source Future Scheduled Test 2020-04-09 00:00:00 INFLUENZA VACCINE [code = INFLUENZA VACCINE] [facility] Future Scheduled Test 2000-12-18 00:00:00 Screening for zan gnant neoplasm of cervix (procedure) [code = 603664773] [place] [facility] Encounters Start Date/Time End Date/Time Encounter Type Admission Type Attendi [facility] Care Department Encounter ID Source 2020-02-18 08:43:00 2020-02-18 08:43:00 Emergency E MHSE MHSE [id number] [facility] 2020-02-18 00:00:00 2020-02-18 00:00:00 Emergency ABRAHAM ANGEL [facility] [id number] [facility] 2020-02-17 11:42:00 2020-02-17 11:42:00 Emergency E MHSE MHSE [id number] [facility] 2020-01-17 00:00:00 2020-01-21 00:00:00 Outpatient DANIELLE YAAYONAS Hernandez [facility] [id number] [facility] 2019-12-20 08:06:00 2019-12-20 08:06:00 Outpatient E MHSE MED [id number] [facility] 2019-12-17 00:00:00 2019-12-18 00:00:00 Outpatient PHILIPP THOMPSON [facility] [id number] [facility] 2019-11-26 05:22:00 2019-11-26 05:22:00 Emergency E MHSE MHSE [id number] [facility] 2019-10-26 17:26:00 2019-10-26 17:26:00 Emergency E MHSE MHSE [id number] [facility] 2019-09-24 00:00:00 2019-09-25 00:00:00 Outpatient SHEREEN BAPTISTE [facility] [id number] [facility] 2019-09-23 20:24:00 2019-09-23 20:53:00 Departed Emergency Room [facility] [id number] [facility] 2019-09-23 01:28:00 2019-09-23 01:28:00 Emergency E MHSE MHSE [id number] [facility] 2019-09-03 04:10:00 2019-09-03 04:10:00 Emergency E MHSE MHSE [id number] [facility] 2019-05-21 17:13:00 2019-05-21 20:51:00 Departed Emergency Room 1 CONNIE HYDE [facility] [id number] [facility]. kes [facility] 2019-05-20 00:00:00 2019-05-21 00:00:00 Outpatient LORI PAULINO [facility] [id number] [facility] 2019-03-22 19:36:00 2019-03-22 15:38:00 Inpatient E MHSE MED [id number] [facility] 2018-11-17 22:24:00 2018-11-17 22:24:00 Emergency E MHSE MHSE [id number] [facility] 2018-09-27 12:52:00 2018-09-27 21:00:00 Departed Emergency Room [facility] [id number] [facility] 2018-08-01 17:53:00 2018-08-01 22:00:00 Departed Emergency Room [facility] [id number] [facility] 2018-07-27 23:13:00 2018-07-28 05:55:00 Departed Emergency Room 1 AYDEN COLLADO [facility] [id number] [facility] 2018-06-22 19:45:00 2018-06-23 02:55:00 Departed Emergency Room [facility] [id number] [facility] 2018-06-20 12:04:00 2018-06-20 20:39:00 Discharged Inpatient 1 IAN SIM [facility] [id number] [facility]. kes [facility] 2018-06-17 15:34:00 2018-06-17 16:08:00 Departed Emergency Room [facility] [id number] [facility] 2018-05-30 11:50:00 2018-06-02 19:00:00 Discharged Inpatient 1 RODDY MALAVE [facility] [id number] [facility] 2018-05-16 12:49:00 2018-05-18 13:13:00 Discharged Inpatient 1 CHELSIE GABRIEL [facility] [id number] [facility] 2018-02-27 16:52:00 2018-02-27 20:59:00 Departed Emergency Room [facility] [id number] [facility] 2018-02-13 15:27:00 2018-02-13 20:42:00 Departed Emergency Room 1 BLADIMIR NAGEL [facility] [id number] [facility] 2018-01-15 17:59:00 2018-01-17 10:48:00 Discharged Inpatient 1 GERMAN CALDWELL [facility] [id number] [facility] 2017-12-11 18:56:00 2017 13:30:00 Discharged Inpatient 1 AL HYDE [facility] [id number] [facility] 2017-12-06 00:04:00 2017-12-06 01:20:00 Departed Emergency Room [facility] [id number] [facility] 2017-10-14 00:05:00 2017-10-14 03:50:00 Departed Emergency Room [facility] [id number] [facility] 2017-09-27 13:40:00 2017-09-27 13:40:00 Emergency E [facility] [id number] [facility] 2017-09-27 03:56:00 2017-09-27 03:56:00 Emergency E [facility] MED [id number] [facility] 2017-09-12 14:35:00 2017-09-12 14:35:00 Outpatient ASHER HUBBARD M.D. [facility] [id number] [facility] 2017-08-30 11:42:00 2017-08-30 14:41:00 Departed Emergency Room ER IAN SIM [facility] [id number] [facility] 2017-08-27 03:12:00 2017-08-27 03:40:00 Departed Emergency Room [facility] [id number] [facility] 2017-08-27 03:00:00 2017-08-27 03:00:00 Registered Emergency Room [facility] [id number] [facility] 2017-08-27 02:16:00 2017-08-27 02:16:00 Registered Emergency Room [facility] [id number] [facility] 2017-06-23 08:39:00 2017-06-23 08:39:00 Registered Surgical Day Care [facility] [id number] [facility] 2017-04-07 00:10:00 2017-04-07 02:44:00 Departed Emergency Room [facility] [id number] [facility] 2017-04-06 16:12:00 2017-04-06 19:40:00 Departed Emergency Room [facility] [id number] [facility] 2017-01-21 02:13:00 2017-01-21 06:02:00 Departed Emergency Room [facility] [id number] [facility] 2017-01-20 15:42:00 2017-01-20 22:58:00 Departed Emergency Room [facility] [id number] [facility] 2017-01-08 09:00:00 2017-01-11 23:09:00 Discharged Inpatient [facility] [id number] [facility] 2016-11-11 19:03:00 2016-11-11 22:11:00 Departed Emergency Room [facility] [id number] [facility] 2016-09-22 09:47:00 2016-09-22 09:47:00 Outpatient [facility] [place] [facility] [address] [facility]21 13:00:00 2016-09-21 13:00:00 Outpatient Inpatient Providers [facility] Providers [facility] [address] [facility] 2016-09-02 08:22:00 2016-09-02 08:22:00 Outpatient Rosaura Reid [place], [place] [id number] [employer] 2016-08-31 09:45:00 2016-08-31 09:45:00 Outpatient Rosaura Reid [place], [place] [id number] [employer] 2016-08-05 14:45:00 2016-08-05 14:45:00 Outpatient Rosaura Reid [place], [place] [id number] [employer] 2016-07-13 13:22:00 2016-07-13 13:22:00 Outpatient Rosaura Reid MD, [place] Rosaura [place] [address] eClinicalWorks 2016-06-15 16:30:00 2016-06-15 16:30:00 Outpatient Rosaura Reid [place], [place] [address] eClinicalWorks Results Test Description Test Time Test Comments Results Result Comments Source CT ABDOMEN/PELVIS WO 2020-03-17 21:37:00 [place] [address] Patient Name: BELIA VIGIL MR #: [id number] : 1980 Age/Sex: 39/F Req #: [id number] Adm Physician: Ordered by: IMMANUEL RANKIN MD Report #: [id number] Location: ER Room/Bed: Procedure: [id number] CT/CT ABDOMEN/PELVIS WO Exam Date: 03/17/20 Exam Time: 2100 REPORT STATUS: Signed EXAM: CT Abdomen and Pelvis WITHOUT contrast INDICATION: LEFT FLANK PAIN COMPARISON: Multiple prior CTs of the abdomen/pelvis including most recent on 05/21/2019. TECHNIQUE: Abdomen and pelvis were scanned utilizing a multidetector helical scanner from the lung base to the pubic symphysis without administration of IV contrast. Absence of intravenous contrast decreases sensitivity for detection of focal lesions and vascular pathology. Coronal and sagittal reformations were obtained. Routine protocol was performed. IV CONTRAST: None ORAL CONTRAST: None COMPLICATIONS: None RADIATION DOSE: Total DLP: 216.05 mGy*cm Estimated effective dose: (DLP x 0.015 x size factor) mSv CTDIvol has been reviewed. It is below the limits set by the Radiation Protocol Committee (RPC). Dose modulation, iterative reconstruction, and/or weight based adjustment of the mA/kV was utilized to reduce the radiation dose to as low as reasonably achievable. FINDINGS: LINES and TUBES: None. LOWER THORAX: Unremarkable HEPATOBILIARY: The liver is diffuse hypodense compared to the spleen, consistent with diffuse hepatic diffuse hepatic steatosis. No focal hepatic lesions. No biliary ductal dilation. GALLBLADDER: There are cholecystectomy clips. There is a dislodged clip located anterior to liver (series 3 image 83). SPLEEN: No splenomegaly. PANCREAS: No focal masses or ductal dilatation. ADRENALS: No adrenal nodules KIDNEYS/URETERS: No hydronephrosis. No cystic or solid mass lesions. There are multiple bilateral nonobstructive renal stones. GI TRACT: No abnormal distention, wall thickening, or evidence of bowel obstruction. The appendix is not visualized, however no secondary signs of appendicitis. PELVIC ORGANS/BLADDER: Unremarkable. LYMPH NODES: No lymphadenopathy. VESSELS: Unremarkable. PERITONEUM / RETROPERITONEUM: No free air or fluid. BONES: Unremarkable. SOFT TISSUES: Partially imaged bilateral breast implants are unchanged. IMPRESSION: 1. Nonobstructive bilateral nephrolithiasis. 2. Hepatic steatosis. 3. No acute abdominopelvic abnormality identified. Signed by: Elvis Swartz MD on 03/17/2020 9:45 PM Dictated By: ELVIS SWARTZ MD 44 Transcribed By: WAYNE on 03/17/202144 COPY TO: IMMANUEL RANKIN MD BASIC METABOLIC PANEL 2020-02-20 05:05:00 Test Item SODIUM (test code = NA) 136 mmol/l 134.0-147.0 N POTASSIUM (test code = K) 3.7 mmol/L 3.6-5.2 N CHLORIDE (test code = CL) 104 mmol/l 98.0-107.0 N CARBON DIOXIDE (test code = CO2) 21.0 mmol/l 21.0-33.0 N ANION GAP (test code = GAP) 14.7 0-20 N GLUCOSE (test code = GLU) 104 mg/dl 70.0-110.0 N BLOOD UREA NITROGEN (test code = BUN) 10 mg/dl 7.0-18.0 N CREATININE (test code = CREAT) 0.54 mg/dL 0.60-1.30 L GFR NON BLACK (test code = GFRNONBLACK) 132 mL/min 95-105 H GFR BLACK (test code = GFRBLACK) 160 mL/min 115-127 H CALCIUM (test code = CA) 8.1 mg/dl 8.0-10.5 N CBC W/AUTO [id number] 04:53:00* Test Item Value Reference Range Interpretation Comments WHITE BLOOD CELL (test code = WBC) 8.5 K/mm3 4.5-11.0 N RED BLOOD CELL (test code = RBC) 3.83 M/mm3 3.80-5.20 N HEMOGLOBIN (test code = HGB) 10.9 gm/dL 12.0-16.0 L HEMATOCRIT (test code = HCT) 35.5 % 36.0-48.0 L MEAN CELL VOLUME (test code = MCV) 92.7 UM3 82.0-99.0 MEAN CELL HGB (test code = MCH) 28.5 UUG 25.5-32.5 N MEAN CELL HGB CONCETRATION (test code = MCHC) 30.7 gm/dL 29.0-35. 5 N RED CELL DISTRIBUTION WIDTH (test code = RDW) 15.1 % 11.5-15. 0 H RED CELL DISTRIBUTION WIDTH SD (test code = RDW-SD) 50.8 fL 34 .8-50.2 H PLATELET COUNT (test code = PLT) 451 K/mm3 150-400 H MEAN PLATELET VOLUME (test code = MPV) 10.3 fl 7.4-10.4 N NEUTROPHIL % (test code = NT%) 38.2 % 49.0-76.0 L IMMATURE GRANULOCYTE % (test code = IG%) 0.2 % 0.0-0.4 N LYMPHOCYTE % (test code = LY%) 35.7 % 23.0-38.0 N MONOCYTE % (test code = MO%) 16.2 % 1.0-10.0 H EOSINOPHIL % (test code = EO%) 9.0 % 1.0-5.0 H BASOPHIL % (test code = BA%) 0.7 % 0.0-1.0 N NEUTROPHIL # (test code = NT#) 3.2 K/mm3 2.4-6.3 N IMMATURE GRANULOCYTE # (test code = IG#) 0.02 x10 3/uL 0.00-0.07 N LYMPHOCYTE # (test code = LY#) 3.0 K/mm3 1.2-4.0 N MONOCYTE # (test code = MO#) 1.4 K/mm3 0.0-0.6 H EOSINOPHIL # (test code = EO#) 0.8 K/MM3 0.0-0.7 H BASOPHIL # (test code = BA#) 0.1 K/mm3 0.0-0.2 N Urine [id number] 23:14:32* Test Item Value Reference Range Interpretation Comments Urine culture isolate (test code = 78565-8) Mixed rachele <=10-3 col/ cc Specimen InformationSpecimen Source: UrineSpecimen Site: Clean catch [place] [facility]anda[facility]- CT ABD PELVIS W/O [id number] 21:49:00 FAX: Amanda Levine MD [phone] [place]: [address]: REG Name: BELIA MCKEON [facility] : 0 Age/S: 39/F [address] [facility] Unit: [id number] Loc: E.ERS2 [place], [place]: [place] [address] Acct: [id number] Dis Date: Status: REG ER PHONE #: [phone] Exam Date: 02/18/20202104 FAX #: [phone] Reason: abd pain, N/V, hx pancreatic cancer;IV contrast EXAMS: CPT CODE: [id number] CT ABD PELVIS W/O CONT 83741 Location: H5 CT Abdo men and Pelvis without Contrast Indication: abd pain, N/V, hx panc reatic cancer;IV contrast only Comparison: 02/26/2020. Technical factors: Axial images were obtained without contrast. Coronal and sagittal reconstruction. This exam was performed according to our departmental dose-optimization program, which includes automated expos ure control, adjustment of the mA and/or kV according to patient size and/ or use of iterative reconstruction technique. Findings: Small bibasilar atelectasis. No pleural effusion. Bilateral breast prostheses. The liver is normal in appearance. The biliary du cts are not dilated. No focal lesion is seen. Cholecystectom y. Surgical clips in the epigastrium. Resection of the pancreat ic body and tail. No evidence of recurrent mass. Nonobstruc ting punctate bilateral renal calculi. Splenectomy. Adrenal glands are normal in appearance. Kidneys are normal in ap pearance. No hydronephrosis or hydroureter. IVC is unremarkable. Abdominal aorta is unremarkable for age. Bowel is unremarkable. Possible cholecystectomy. Correlate PAGE 1 Signed Report (CONTINUED) FAX: Amanda March MD [phone] [place]: St: REG Name: BELIA VIGIL [facility] : 1980 Age/S: 39/F [address] [facility] Unit: [id number] Loc: [facility] [place], [place] Phys: Amanda Levine MD 77 [phone] Acct: [id number] Dis Date: Stat us: [facility] ER PHONE #: [phone] Exam Date: 02/18/20202104 FAX #: [phone] Reason: abd pain, N/V, hx pancreatic cancer;IV contrast EXAMS: CPT CODE: [id number] CT ABD PELVIS W/O CONT 12772 <Continued> clinically. The urinary bladder is normal in appearance. Hysterectomy. No adenopathy, free fluid, or free air. No abnormal mass, edema, or focal fluid collection. Abdominal-pelvic wall is unremarkable. Skeletal structures are normal for patient age. Impression: 1. Partial resection of the pancreas. 2. Splenectomy. 3. Cholecystectomy. 4. Hysterectomy. 5. No evidence of metastasis 6. Bilateral renal calculi. No hydronephrosis or hydroureter. 7. Possible cholecystectomy. Correlate clinically. 8. Bilateral breast prosthesis. at 2149 Reported and signed by: John Ortega M.D. CC: Amanda Levine MD Technologist: THIAGO RODRIGUEZ Trnscrd Dt/Tm: 02/18/2020 (2148) [email or web address] Orig Print D/T: S: 02/18/2020 (2 PAGE 2 Signed Report CBC W/AUTO DIFF 2020-02-18 21:28:00* Test Item Value Reference Range Interpretation Comments WHITE BLOOD CELL (test code = WBC) 12.0 K/mm3 4.5-11.0 H RED BLOOD CELL (test code = RBC) 3.79 M/mm3 3.80-5.20 L HEMOGLOBIN (test code = HGB) 11.0 gm/dL 12.0-16.0 L HEMATOCRIT (test code = HCT) 33.2 % 36.0-48.0 L MEAN CELL VOLUME (test code = MCV) 87.6 UM3 82.0-99.0 N MEAN CELL HGB (test code = MCH) 29.0 UUG 25.5-32.5 N MEAN CELL HGB CONCETRATION (test code = MCHC) 33.1 gm/dL 29.0-35. 5 N RED CELL DISTRIBUTION WIDTH (test code = RDW) 14.6 % 11.5-15. 0 N RED CELL DISTRIBUTION WIDTH SD (test code = RDW-SD) 46.5 fL 34 .8-50.2 N PLATELET COUNT (test code = PLT) 467 K/mm3 150-400 H MEAN PLATELET VOLUME (test code = MPV) 10.1 fl 7.4-10.4 N NEUTROPHIL % (test code = NT%) 44.3 % 49.0-76.0 L IMMATURE GRANULOCYTE % (test code = IG%) 0.3 % 0.0-0.4 N LYMPHOCYTE % (test code = LY%) 37.0 % 23.0-38.0 N MONOCYTE % (test code = MO%) 11.7 % 1.0-10.0 H EOSINOPHIL % (test code = EO%) 6.3 % 1.0-5.0 H BASOPHIL % (test code = BA%) 0.4 % 0.0-1.0 N NEUTROPHIL # (test code = NT#) 5.3 K/mm3 2.4-6.3 N IMMATURE GRANULOCYTE # (test code = IG#) 0.04 x10 3/uL 0.00-0.07 N LYMPHOCYTE # (test code = LY#) 4.4 K/mm3 1.2-4.0 H MONOCYTE # (test code = MO#) 1.4 K/mm3 0.0-0.6 H EOSINOPHIL # (test code = EO#) 0.8 K/MM3 0.0-0.7 H BASOPHIL # (test code = BA#) 0.1 K/mm3 0.0-0.2 N MICROCYTOSIS (test code = MICR) 2+ ELLIPTOCYTES (test code = ELL) 1+ PLATELET ESTIMATE (test code = PLTEST) INCREASED URINALYSIS [id number] 21:02:00* Test Item Value Reference Range Interpretation Comments UA COLOR (test code = COLU) BLOODY UA APPEARANCE (test code = APPU) HAZY UA GLUCOSE DIPSTICK (test code = DGLUU) NORMAL mg/dl NORMAL UA BILIRUBIN DIPSTICK (test code = BILU) NEGATIVE mg/dL NEGATIVE UA KETONE DIPSTICK (test code = KETU) 5 mg/dl mg/dl NEGATIVE A UA SPECIFIC GRAVITY (test code = SGU) 1.020 1.000-1.030 UA BLOOD DIPSTICK (test code = DRAKE) 250 Antoni/micL Antoni/micL NEGATIVE A UA PH DIPSTICK (test code = PARVIZ) 6.0 5.0-9.0 UA PROTEIN DIPSTICK (test code = PROU) 100 mg/dl NEGATIVE A UA UROBILINIOGEN DIPSTICK (test code = URO) NORMAL mg/dl NORMAL UA NITRITE DIPSTICK (test code = JUVENAL) POSITIVE NEGATIVE A UA LEUKOCYTE ESTERASE DIPSTICK (test code = LEUU) 100 Maite/mi cL Maite/micL NEGATIVE A UA WBC (test code = WBCU) 10-15 WBC/HPF NONE A UA RBC (test code = RBCU) TNTC RBC/HPF 0-3 A UA EPITHELIAL CELLS (test code = EPIU) 10-15 EPI/HPF 0-3 A UA BACTERIA (test code = BACU) MOD NONE UA MUCUS (test code = MUCU) 3+ Specimen comments: Clean CatchURINALYSIS [id number] 20:54:00* Test Item Value Reference Range Interpretation Comments UA COLOR (test code = COLU) BLOODY UA APPEARANCE (test code = APPU) HAZY UA GLUCOSE DIPSTICK (test code = DGLUU) NORMAL mg/dl NORMAL UA BILIRUBIN DIPSTICK (test code = BILU) NEGATIVE mg/dL NEGATIVE UA KETONE DIPSTICK (test code = KETU) 5 mg/dl mg/dl NEGATIVE A UA SPECIFIC GRAVITY (test code = SGU) 1.020 1.000-1.030 UA BLOOD DIPSTICK (test code = DRAKE) 250 Antoni/micL Antoni/micL NEGATIVE A UA PH DIPSTICK (test code = PARVIZ) 6.0 5.0-9.0 UA PROTEIN DIPSTICK (test code = PROU) 100 mg/dl NEGATIVE A UA UROBILINIOGEN DIPSTICK (test code = URO) NORMAL mg/dl NORMAL UA NITRITE DIPSTICK (test code = JUVENAL) POSITIVE NEGATIVE A UA LEUKOCYTE ESTERASE DIPSTICK (test code = LEUU) 100 Maite/mi cL Maite/micL NEGATIVE A UA WBC (test code = WBCU) WBC/HPF NONE UA RBC (test code = RBCU) RBC/HPF 0-3 UA EPITHELIAL CELLS (test code = EPIU) EPI/HPF 0-3 UA BACTERIA (test code = BACU) NONE Specimen comments: Clean CatchBASIC METABOLIC [id number] 20:44:00* Test Item Value Reference Range Interpretation Comments SODIUM (test code = NA) 139 mmol/l 134.0-147.0 N POTASSIUM (test code = K) 3.3 mmol/L 3.6-5.2 L CHLORIDE (test code = CL) 105 mmol/l 98.0-107.0 N CARBON DIOXIDE (test code = CO2) 22.4 mmol/l 21.0-33.0 N ANION GAP (test code = GAP) 14.9 0-20 N GLUCOSE (test code = GLU) 92 mg/dl 70.0-110.0 N BLOOD UREA NITROGEN (test code = BUN) 12 mg/dl 7.0-18.0 N CREATININE (test code = CREAT) 0.98 mg/dL 0.60-1.30 N GFR NON BLACK (test code = GFRNONBLACK) 66 mL/min 95-105 L GFR BLACK (test code = GFRBLACK) 80 mL/min 115-127 L CALCIUM (test code = CA) 8.5 mg/dl 8.0-10.5 N Specimen comments: Clean CatchHEPATIC FUNCTION PANEL [id number] 20:44:00* Test Item Value Reference Range Interpretation Comments TOTAL PROTEIN (test code = PROT) 7.8 GM/DL 6.0-8.1 N ALBUMIN (test code = ALB) 4.0 gm/dL 3.2-4.7 N BILIRUBIN TOTAL (test code = BILT) 0.3 mg/dl 0.0-1.0 N BILIRUBIN DIRECT (test code = BILD) 0.1 mg/dl 0.0-0.3 N SGOT/AST (test code = AST) 62 Units/L 15.0-37.0 H SGPT/ALT (test code = ALT) 61 Units/L 12.0-78.0 N ALKALINE PHOSPHATASE TOTAL (test code = ALKP) 98 Units/L 50.0-136 .0 N Specimen comments: Clean [id number] 20:44:00* Test Item Value Reference Range Interpretation Comments LIPASE (test code = LIP) 45 Units/L 65.0-230.0 L Specimen comments: Clean CatchHCG SERUM [id number] 20:44:00* Test Item Value Reference Range Interpretation Comments HCG SERUM QUAL (test code = HCGQL) NEGATIVE NEGATIVE Specimen comments: Clean [id number] 20:44:00* Test Item Value Reference Range Interpretation Comments TROPONIN-I (test code = TROPI) <0.02 NG/ML 0.00-0.06 N REFERENCE RANGE TROPONIN I HEALTHY INDIVIDUALS: <0.06 ng/mL R/O ISCHEMIA: 0.07 - 0.60 ng/mL CUT-OFF RANGE FOR AMI: 0.60 - 1.5 ng/mL Specimen comments: Clean CatchBASIC METABOLIC [id number] 20:36:00* Test Item Value Reference Range Interpretation Comments SODIUM (test code = NA) 139 mmol/l 134.0-147.0 N POTASSIUM (test code = K) 3.3 mmol/L 3.6-5.2 L CHLORIDE (test code = CL) 105 mmol/l 98.0-107.0 N CARBON DIOXIDE (test code = CO2) 22.4 mmol/l 21.0-33.0 N ANION GAP (test code = GAP) 14.9 0-20 N GLUCOSE (test code = GLU) mg/dl 70.0-110.0 BLOOD UREA NITROGEN (test code = BUN) mg/dl 7.0-18.0 CREATININE (test code = CREAT) mg/dL 0.60-1.30 GFR NON BLACK (test code = GFRNONBLACK) mL/min 95-105 GFR BLACK (test code = GFRBLACK) mL/min 115-127 CALCIUM (test code = CA) mg/dl 8.0-10.5 Specimen comments: Clean CatchHEPATIC FUNCTION PANEL [id number] 20:36:00* Test Item Value Reference Range Interpretation Comments TOTAL PROTEIN (test code = PROT) gm/dL 6.4-8.2 ALBUMIN (test code = ALB) gm/dl 3.2-4.7 BILIRUBIN TOTAL (test code = BILT) mg/dl 0.0-1.0 BILIRUBIN DIRECT (test code = BILD) mg/dl 0.0-0.3 SGOT/AST (test code = AST) Units/L 15.0-37.0 SGPT/ALT (test code = ALT) Units/L 12.0-78.0 ALKALINE PHOSPHATASE TOTAL (test code = ALKP) Units/L 50.0-136 .0 Specimen comments: Clean [id number] 20:36:00* Test Item Value Reference Range Interpretation Comments LIPASE (test code = LIP) Units/L 65.0-230.0 Specimen comments: Clean CatchHCG SERUM [id number] 20:36:00* Test Item Value Reference Range Interpretation Comments HCG SERUM QUAL (test code = HCGQL) NEGATIVE NEGATIVE Specimen comments: Clean [id number] 20:36:00* Test Item Value Reference Range Interpretation Comments TROPONIN-I (test code = TROPI) NG/ML 0.00-0.06 Specimen comments: Clean CatchPROTHROMBIN [id number] 20:34:00* Test Item Value Reference Range Interpretation Comments PROTHROMBIN TIME PATIENT (test code = PTP) 12.9 SECONDS 9.9-12.8 H INTERNATIONAL NORMAL RATIO (test code = INR) 1.1 0.89-1.14 N THE INR IS TO BE USED ONLY FOR MONITORING ORAL ANTICOAGULANTTHERAPY. THE FOLLOWING ARE SUGGESTED RANGES FROM THEAMERICAN COLLEGE OF CHEST PHYSICIANS:INDICATION INR VALUEPROPHYLAXIS OF VENOUS THROMBOSIS (ORTHOPEDIC SURGERY) 2.0 - 3.0PROPHYLAXIS OF VENOUS THROMBOSIS (OTHER THAN HIGH-RISK SURGERY) 2.0 - 3.0TREATMENT OF DEEP VEIN THROMBOSIS OR PULMONARY EMBOLISM 2.0 - 3.0PREVENTION OF SYSTEMIC EMBOLISM TISSUE HEART VALVES 2.0 - 3.0 ACUTE MYOCARDIAL INFARCTION (TO PREVENT SYSTEMIC EMBOLISM) 2.0 - 3.0 ACUTE MYOCARDIAL INFARCTION (TO PREVENT RECURRENT INFARCT) 2.5 - 3.0 VALVULAR HEART DISEASE 2.0 - 3.0 ATRIAL FIBRILATION 2.0 - 3.0BILEAFLET MECHANICAL VALVE IN AORTIC POSITION 2.0 - 3.0MECHANICAL PROSTHETIC VALVES (HIGH RISK) 2.5 - 3.5PRESENCE OF LUPUS ANTICOAGULANT OR ANTIPHOSPHOLIPID ANTIBODIES 2.5 - 3.5 Specimen comments: Clean CatchIs patient on anticoagulants? NTHROMBOPLASTIN TIME [id number] 20:34:00* Test Item Value Reference Range Interpretation Comments THROMBOPLASTIN TIME PARTIAL (test code = PTT) 28.20 SECONDS 25.86-3 6.07 N [facility] Therapeutic Range - APTT of 55.8-85.4 secondscorrelates with plasma heparin concentration of 0.2-0.4 u/mL New range effective - 09/04/2016 Specimen comments: Clean CatchIs patient on anticoagulants? NBASIC METABOLIC [id number] 20:28:00* Test Item Value Reference Range Interpretation Comments SODIUM (test code = NA) mmol/l 134.0-147.0 POTASSIUM (test code = K) mmol/L 3.6-5.2 CHLORIDE (test code = CL) mmol/l 98.0-107.0 CARBON DIOXIDE (test code = CO2) mmol/l 21.0-33.0 ANION GAP (test code = GAP) 0-20 GLUCOSE (test code = GLU) mg/dl 70.0-110.0 BLOOD UREA NITROGEN (test code = BUN) mg/dl 7.0-18.0 CREATININE (test code = CREAT) mg/dL 0.60-1.30 GFR NON BLACK (test code = GFRNONBLACK) mL/min 95-105 GFR BLACK (test code = GFRBLACK) mL/min 115-127 CALCIUM (test code = CA) mg/dl 8.0-10.5 Specimen comments: Clean CatchHEPATIC FUNCTION PANEL [id number] 20:28:00* Test Item Value Reference Range Interpretation Comments TOTAL PROTEIN (test code = PROT) gm/dL 6.4-8.2 ALBUMIN (test code = ALB) gm/dl 3.2-4.7 BILIRUBIN TOTAL (test code = BILT) mg/dl 0.0-1.0 BILIRUBIN DIRECT (test code = BILD) mg/dl 0.0-0.3 SGOT/AST (test code = AST) Units/L 15.0-37.0 SGPT/ALT (test code = ALT) Units/L 12.0-78.0 ALKALINE PHOSPHATASE TOTAL (test code = ALKP) Units/L 50.0-136 .0 Specimen comments: Clean [id number] 20:28:00* Test Item Value Reference Range Interpretation Comments LIPASE (test code = LIP) Units/L 65.0-230.0 Specimen comments: Clean CatchHCG SERUM [id number] 20:28:00* Test Item Value Reference Range Interpretation Comments HCG SERUM QUAL (test code = HCGQL) NEGATIVE NEGATIVE Specimen comments: Clean [id number] 20:28:00* Test Item Value Reference Range Interpretation Comments TROPONIN-I (test code = TROPI) NG/ML 0.00-0.06 Specimen comments: Clean CatchCBC W/AUTO [id number] 20:25:00* Test Item Value Reference Range Interpretation Comments WHITE BLOOD CELL (test code = WBC) 12.0 K/mm3 4.5-11.0 H RED BLOOD CELL (test code = RBC) 3.79 M/mm3 3.80-5.20 L HEMOGLOBIN (test code = HGB) 11.0 gm/dL 12.0-16.0 L HEMATOCRIT (test code = HCT) 33.2 % 36.0-48.0 L MEAN CELL VOLUME (test code = MCV) 87.6 UM3 82.0-99.0 N MEAN CELL HGB (test code = MCH) 29.0 UUG 25.5-32.5 N MEAN CELL HGB CONCETRATION (test code = MCHC) 33.1 gm/dL 29.0-35. 5 N RED CELL DISTRIBUTION WIDTH (test code = RDW) 14.6 % 11.5-15. 0 N RED CELL DISTRIBUTION WIDTH SD (test code = RDW-SD) 46.5 fL 34 .8-50.2 N PLATELET COUNT (test code = PLT) 467 K/mm3 150-400 H MEAN PLATELET VOLUME (test code = MPV) 10.1 fl 7.4-10.4 N NEUTROPHIL % (test code = NT%) 44.3 % 49.0-76.0 L IMMATURE GRANULOCYTE % (test code = IG%) 0.3 % 0.0-0.4 N LYMPHOCYTE % (test code = LY%) 37.0 % 23.0-38.0 N MONOCYTE % (test code = MO%) 11.7 % 1.0-10.0 H EOSINOPHIL % (test code = EO%) 6.3 % 1.0-5.0 H BASOPHIL % (test code = BA%) 0.4 % 0.0-1.0 N NEUTROPHIL # (test code = NT#) 5.3 K/mm3 2.4-6.3 N IMMATURE GRANULOCYTE # (test code = IG#) 0.04 x10 3/uL 0.00-0.07 N LYMPHOCYTE # (test code = LY#) 4.4 K/mm3 1.2-4.0 H MONOCYTE # (test code = MO#) 1.4 K/mm3 0.0-0.6 H EOSINOPHIL # (test code = EO#) 0.8 K/MM3 0.0-0.7 H BASOPHIL # (test code = BA#) 0.1 K/mm3 0.0-0.[address] Abdomen Pelvis Wo [id number] 15:17:20Hm Interface, Radiology Results 02/18/2020 3:20 PM CDTEXAMINATION: CT ABDOMEN PELVIS WO CONTRASTCLINICAL HISTORY: Abd pain unspecifiedTECHNIQUE: Noncontrast images of the abdomen and pelvis were obtained without intravenous iodinated contrast. The lack of intravenous contrast limits assessment of the solid organs. CT imaging was performed with iterative reconstruction technique and/or automated exposure control to reduce radiation dose.COMPARISON: Most recent priorFINDINGS:LOWER THORAX:Clear lung bases. Heart is normal in size.ABDOMEN:Liver: Hepatic steatosis.Gallbladder: CholecystectomySpleen: Status post splenectomyPancreas: Distal pancreatectomy.Adrenal Glands: The adrenal glands are unremarka ble.Kidneys: Bilateral nephrolithiasis is again seen, largest calculi measuring up to 7 mm in the right lower pole and numerous 3-4 mm calculi in the left kidne y. No hydronephrosisAbdominal Aorta: The abdominal aorta is nonaneurysmal. Surgi tobi clips at the level of the celiac axis.Nodes: No enlarged retroperitoneal or mesenteric lymphadenopathy.Bowel: No bowel obstruction or inflammatory changes o f the large or small bowel. Normal appendix. Moderate stool burden at the cecum. Ascites: No ascites or fluid collections.PELVIS:Pelvis: Distended urinary bladde r. Hysterectomy.Bones and soft tissues: Degenerative changes of the osseous stru ctures. No suspicious lesions.IMPRESSION:1.Bilateral nonobstructive nephrolithia sis.2.Hepatic steatosis.3.Additional findings as above.[id number] MethodistComprehensive metabolic [id number] 14:25:21* Test Item Value Reference Range Interpretation Comments Sodium (test code = 2951-2) 138 135- 148 mEq/L Potassium (test code = 2823-3) 4.0 3.5- 5.0 mEq/L Chloride (test code = 5-0) 104 98- 112 mEq/L CO2 (test code = 2027-) 21 24- 31 mEq/L L Anion gap (test code = 31447-8) 13@ANIO 7- 15 mEq/L BUN (test code = 3094-0) 12 mg/dL 6-20 Creatinine (test code = 2160-0) 0.70 mg/dL 0.5-0.9 Glucose (test code = 2345-7) 114 mg/dL 65-99 H Calcium (test code = 90583-4) 10.2 mg/dL 8.3-10.2 Protein (test code = 2885-2) 8.9 g/dL 6.3-8.3 H -[place] 4.6- 7.0 g/dL1 week 4.4-7.6 g/dL7 months-1year 5.1-7.3 g/dL1-2 years 5.6-7.5 g/dL>3 years 6.0-8.0 g/hS07-911 6.3-8.3 g/dL Albumin (test code = 1751-7) 5.2 g/dL 3.5-5 H A/G ratio (test code = 1759-0) 1.4 0.7-3.8 Alkaline phosphatase (test code = 6768-6) 116 U/L 35-104 H AST (test code = 1920-8) 71 U/L 10-35 H ALT (test code = 1742-6) 58 U/L 5-50 H Total bilirubin (test code = 1974-2) 0.5 mg/dL 0-1.2 Lab Interpretation (test code = 98591-4) Abnormal [facility]Estim[facility] [id number] 14:25:20* Test Item Value Reference Range Interpretation Comments Estimated GFR (test code = 5488) >=90 mL/min/1.73 m2 Catergory Units InterpretationG1 >=90 Normal or highG2 60-89 Mildly gerafgjziO8a 45-59 Mildly to moderately cjfsfpcqyG0h 30-44 Moderately to severely decreasedG4 15-29 Severely decreasedG5 <15 Kidney failureThe eGFR was calculated using the Chronic Kidney Disease Epidemiology Collaboration (CKD-EPI) equation. Interpretation is based on recommendations of the National Kidney Foundation-Kidney Disease Outcomes Quality Initiative (NKF-KDOQI) published in 2014. [place] MethodistLactic acid level, SEPSIS - Now and repeat 2x every 3 hours 2020-02-18 14:21:38* Test Item Value Reference Range Interpretation Comments Lactic acid (test code = 42893-5) 1.9 mmol/L 0.5-2.2 [facility] MethodistLipase [id number] 14:21:10* Test Item Value Reference Range Interpretation Comments Lipase (test code = 3040-3) 15 U/L 13-60 [facility] MethodisthCG qualitative, serum [id number] 14:20:26* Test Item Value Reference Range Interpretation Comments hCG qualitative, serum (test code = 2118-8) Negative [facility] MethodistVenous blood [id number] 14:17:11* Test Item Value Reference Range Interpretation Comments pH, venous (test code = 2746-6) 7.38 7.32-7.42 pCO2, venous (test code = 1-4) 40 45- 51 mmHg L pO2, venous (test code = 2705-2) 30 25- 40 mmHg Base excess, venous (test code = 1927-3) -1 meq/L -2-2 O2 saturation, venous (test code = 2711-0) 56 % 40-70 Bicarbonate, venous (test code = 67320-4) 22.4 mmol/L 21-28 FiO2, inspired O2% (test code = 1389) Unknown % Lab Interpretation (test code = 57967-0) Abnormal [facility] MethodistProthrombin time with [id number] 14:11:26* Test Item Value Reference Range Interpretation Comments Prothrombin time (test code = 5902-2) 13.5 11.5- 14.5 sec INR (test code = 66080-8) 1.0 Th e International Normalized Ratio (INR) is a therapeutic monitoring tool for patients who are stable on oral anticoagulant therapy. An INR of 2.0-3.0 is suggested for deep vein thrombosis/pulmonary embolism. [facility] MethodistPartial thromboplastin time, zapcfndjc4818-09-13 14:11:26* Test Item Value Reference Range Interpretation Comments PTT (test code = 99567-0) 26.9 23.0- 36.0 sec PTT therapeutic range for unfractionated heparin is61.0-112.0 seconds which corresponds to Anti-Xa0.3-0.7 U/ml. [facility] MethodistUrinalysis screen and microscopy, with reflex to culture 2020-02-18 14:07:06* Test Item Value Reference Range Interpretation Comments Specimen site (test code = 0586932) Clean catch Color, UA (test code = 5778-6) Yellow Appearance, UA (test code = 5767-9) Slightly-Cloudy Specific gravity, UA (test code = 5811-5) 1.014 1.001-1.035 pH, UA (test code = 5803-2) 6.0 5.0-8.5 Protein, UA (test code = 09521-8) Negative Negative Glucose, UA (test code = 00972-3) Negative Negative Ketones, UA (test code = 2514-8) Negative Negative Bilirubin, UA (test code = 5770-3) Negative Negative Blood, UA (test code = 5794-3) Negative Negative Nitrite, UA (test code = 5802-4) Negative Negative Urobilinogen, UA (test code = 28328-6) Negative <2.0 Leukocyte esterase, UA (test code = 5799-2) Negative Negative Epithelial cells, UA (test code = 5787-7) Many Few /HPF Round epithelial cells, UA (test code = 44115-8) Few 0- 1 /HPF WBC, UA (test code = 5821-4) 0-5 0- 4 /HPF RBC, UA (test code = 28254-5) 0-5 0- 5 /HPF Bacteria, UA (test code = 99893-4) Moderate None seen A Yeast, UA (test code = 10718-9) None seen Yeast with pseudohyphae, UA (test code = 54293-3) None seen Lab Interpretation (test code = 22843-1) Abnormal [facility] with platelet and kojiwaathela5307-74-26 14:04:21* Test Item Value Reference Range Interpretation Comments WBC (test code = 09666-8) 11.72 4.50- 11.00 k/uL H RBC (test code = 18241-3) 4.24 m/uL 4.2-5.5 HGB (test code = 718-7) 11.9 g/dL 12-16 L HCT (test code = 4544-3) 37.0 % 37-47 MCV (test code = 787-2) 87.3 fL 82-100 MCH (test code = 785-6) 28.1 pg 27-34 MCHC (test code = 786-4) 32.2 g/dL 31-37 RDW - SD (test code = 15907-6) 46.5 fL 37-55 MPV (test code = 09523-7) 10.2 fL 8.8-13.2 Platelet count (test code = 16647-9) 528 150- 400 k/uL H Nucleated RBC (test code = 78228-8) 0.00 /100 WBC Neutrophils (test code = 55815-3) 57.5 % 39-69 Lymphocytes (test code = 54548-5) 30.1 % 25-45 Monocytes (test code = 94048-9) 7.5 % 0-10 Eosinophils (test code = 10251-4) 4.4 % 0-5 Basophils (test code = 51740-9) 0.3 % 0-1 Lab Interpretation (test code = 99539-8) Abnormal [facility] rlkms5110-84-40 12:34:41Enteric bacterial panelNegative for all pathogens tested:Negative for SalmonellaNegative for CampylobacterNegative for Diarrheagenic E coli/ShigellaNegative for Shiga-like toxin-producing E coliNegative for Plesiomonas shigelloidesNegative for Yersinia enterocoliticaNegative for Vibrio speciesThis real-time PCR assay detects the presence of nucleic acids (RNA or DNA) for the gastrointestinal pathogens listed.A result of "Not-detected" does not exclude the possibility of the p resence of one or more pathogens at concentrations less than the detectable limi ts of the assay. Comment: Specimen InformationSpecimen Source: StoolSpecimen Sit e: Nonpreserved [facility] MethodistBlood culture, aerobic & teozbqrve4153-49-93 19:33:05* Test Item Value Reference Range Interpretation Comments Blood culture isolate (test code = 600-7) No growth after 5 days of incubation. Specimen InformationSpecimen Source: BloodSpecimen Site: Aorta Arm Right [facility] parasitic bmcms6136-49-88 13:48:13Enteric parasitic panelNegative for all pathogens tested:Negative for SalmonellaNegative for CampylobacterNegative for Diarrheagenic E coli/ShigellaNegative for Shiga-like toxin-producing E coliNegative for Plesiomonas shigelloidesNegative for Yersinia enterocoliticaNegative for Vibrio speciesThis real-time PCR assay detects the presence of nucleic acids (RNA or DNA) for the gastrointestinal pathogens listed.A result of "Not-detected" does not exclude the possibility of the p resence of one or more pathogens at concentrations less than the detectable limi ts of the assay. Comment: Specimen InformationSpecimen Source: StoolSpecimen Sit e: Nonpreserved [facility] MethodistCancer antigen 19-9 2020-01-21 16:20:15* Test Item Value Reference Range Interpretation Comments CA 19-9 (test code = 1006) 11 U/mL 0-35 T he Pietro Luis 8000 CA19-9 immunoassay was used. Results obtained with different assay methods or kits should not be used interchangeably and may be different. [facility] HospitalHemoglobin & dnhwsvnslz8127-21-25 09:53:18* Test Item Value Reference Range Interpretation Comments HGB (test code = 718-7) 10.2 g/dL 11.5-15.3 L HCT (test code = 4544-3) 30.4 % 34-45 L Lab Interpretation (test code = 03835-0) [facility]normal [facility] gmdpy1947-21-55 12:47:57* Test Item Value Reference Range Interpretation Comments Sodium (test code = 2951-2) 140 135- 150 mEq/L Potassium (test code = 2823-3) 4.1 3.5- 5.0 mEq/L Chloride (test code = 2075-0) 105 98- 112 mEq/L CO2 (test code = 2027-9) 22 mmol/L 24-31 L Anion gap (test code = 05460-1) 13@ANIO 7- 15 mEq/L BUN (test code = 3094-0) 8 mg/dL 7-18 Creatinine (test code = 2160-0) 0.60 mg/dL 0.5-0.9 Glucose (test code = 2345-7) 115 mg/dL 65-100 H Calcium (test code = 99304-3) 9.6 mg/dL 8.3-10.2 Lab Interpretation (test code = 58374-5) Abnormal [facility] MethodistECG 12 gkmp0643-99-50 10:57:06* Test Item Value Reference Range Interpretation Comments Ventricular rate (test code = 253) 138 Atrial rate (test code = 255) 138 DC interval (test code = 266) 120 QRSD interval (test code = 260) 72 QT interval (test code = 264) 362 QTC interval (test code = 265) 548 P axis 1 (test code = 267) 58 QRS axis 1 (test code = 268) 102 T wave axis (test code = 270) 75 EKG impression (test code = 273) Sinus tachycardia-Rig htward axis-Nonspecific T wave abnormality-Abnormal ECG-In automated comparison with ECG of 20-MAY-2019 17:10,-Vent. rate has increased BY 62 BPM-Criteria for Septal infarct are no longer dltyeir-Isw-fsaraclz change in ST segment in Anterolateral leads- Nonspecific T wave abnormality now evident in Lateral leads- [facility] MethodistCOVID-19 qualitative [id number] 06:18:12* Test Item Value Reference Range Interpretation Comments Interpretation (test code = 9194371) Negative results do not preclude 2019-nCoV infection and should not be used as the sole basis for treatment or other patient management decisions. Negative results must be combined with clinical observations, patient history, and epidemiological information. COVID-19 qualitative PCR result (test code = 07301-8) Not-Detect ed Not-Detected COVID-19 qualitative PCR (test code = 7070) See link below for P DF Lab Report [facility] MethodistTroponin, [id number] 01:37:24* Test Item Value Reference Range Interpretation Comments Troponin, I-Stat (test code = 2359) 0.01 ng/mL 0-0.08 0.09 - 1.49 ng/ml May indicate increased risk of acute coronary syndrome. >=1.5 ng/ml Consistent with acute myocardial infarction. The diagnostic value of a single normal or non-diagnostic result is questionable. Serial samples at 2-6 hour intervalsare required to rule out acute myocardial injury. Timo AnneQjscjgzugTrfmnrrs9341-31-93 20:26:53* Test Item Value Reference Range Interpretation Comments Troponin (test code = 92821-6) <0.006 0-0.04 In patients suspected of having a myocardial infarction, along with all other appropriate clinical measures and actions including ECG and other diagnostics as appropriate, measure Ultra TnI at 0 hrs and at 3 hrs.Myocardial infarction VERY LIKELYThe 0 hr TnI level is > 0.10 ng/mL Nathaniel cardial infarction LIKELYThe 0 hr TnI level is > 0.04 ng/mL and 3 hr level is increased or decreased by at least 0.020 ng/mL Myocardi al infarction VERY UNLIKELYBoth the 0 hr and 3 hr TnI levels <= 0.04 ng/mL(within normal limits) OR 0 hr is > 0.04 ng/mL and 3 hr is increased OR decreased by less than 0.020 ng/mL [facility] MethodistType and qgcqdk9595-56-00 17:46:00* Test Item Value Reference Range Interpretation Comments ABO grouping (test code = 883-9) O Rh type (test code = 24992-8) POS Antibody screen (gel) (test code = 890-4) NEG [facility] MethodistXR Chest 1 Vw Lrmomoyz4058-19-96 17:34:13Hm Interface, Radiology Results 01/17/2020 5:37 PM CDTEXAMINATION: XR CHEST 1 VW PORTABLECLINICAL HISTORY: 39 years Female eval for pnaCOMPARISON: October 23IMPRESSION:The cardiomediastinal silhouette is not enlarged The lungs are clear The osseous structures are within normal limits... [facility] AvendanoistB natriuretic bsrodjw9378-22-24 17:32:37* Test Item Value Reference Range Interpretation Comments BNP (test code = 40319-8) <3 0-100 [facility] Preliminary Interpretation - Not an Eaiok2053-05-09 17:23:41Angel Rosario Jr., MD 01/18/2020 7:26 [facility] ED Preliminary Interpretation - Not an OrderPerformed by: Angel Rosario Jr., MDAuthorized by: Angel Rosario Jr., MD ECG reviewed by ED Physician in the absence of a nursing instructor: yes Interpretation: Interpretation: non-specific Rate: ECG rate: 138 ECG rate assessment: tachycardic Rhythm: Rhythm: sinus tachycardia QRS: QRS axis: Right QRS intervals: NormalConduction: Conduction: normal ST segments: ST segments: NormalT waves: T waves: normal [facility] with platelet count + automated pznu8475-29-72 04:25:00* Test Item Value Reference Range Interpretation Comments WBC (test code = 6690-2) 8.1 3.5- 10.5 K/L RBC (test code = 789-8) 4.40 3.93- 5.22 M/L MCHC (test code = 786-4) 32.4 32.2- 35.5 GM/DL Hematocrit (test code = 4544-3) 38.3 % 34.1-44.9 MCV (test code = 787-2) 87.0 fL 79.4-94.8 MCH (test code = 785-6) 28.2 pg 25.6-32.2 RDW (test code = 788-0) 15.4 % 11.7-14.4 H Platelets (test code = 777-3) 576 150- 450 K/CU MM H MPV (test code = 49029-3) 9.8 fL 9.4-12.3 nRBC (test code = 413) 0 0- 0 /100 WBC % Neutros (test code = 429) 41 % % Lymphs (test code = 430) 42 % % Monos (test code = 431) 12 % % Eos (test code = 432) 4 % % Baso (test code = 437) 1 % # Neutros (test code = 670) 3.28 1.56- 6.13 K/L # Lymphs (test code = 414) 3.40 1.18- 3.74 K/L # Monos (test code = 415) 1.00 0.24- 0.36 K/L H # Eos (test code = 416) 0.34 0.04- 0.36 K/L # Baso (test code = 417) 0.04 0.01- 0.08 K/L Immature Granulocytes-Relative (test code = 2801) 0 % 0-1 Lab Interpretation (test code = 18219-2) Abnormal [facility] W/PLT COUNT & AUTO [id number] 04:25:00* Test Item Value Reference Range Interpretation Comments WHITE BLOOD CELL COUNT (BEAKER) (test code = 775) 8.1 K/ L 3.5- 10.5 RED BLOOD CELL COUNT (BEAKER) (test code = 761) 4.40 M/ L 3.93-5 .22 HEMOGLOBIN (BEAKER) (test code = 410) 12.4 GM/DL 11.2-15.7 HEMATOCRIT (BEAKER) (test code = 411) 38.3 % 34.1-44.9 MEAN CORPUSCULAR VOLUME (BEAKER) (test code = 753) 87.0 fL 79. 4-94.8 MEAN CORPUSCULAR HEMOGLOBIN (BEAKER) (test code = 751) 28.2 pg 25.6-32.2 MEAN CORPUSCULAR HEMOGLOBIN CONC (BEAKER) (test code = 752) 32.4 GM/DL 32.2-35.5 RED CELL DISTRIBUTION WIDTH (BEAKER) (test code = 412) 15.4 % 11.7-14.4 H PLATELET COUNT (BEAKER) (test code = 756) 576 K/CU MM 150-450 H MEAN PLATELET VOLUME (BEAKER) (test code = 754) 9.8 fL 9.4-12 .3 NUCLEATED RED BLOOD CELLS (BEAKER) (test code = 413) 0 /100 WBC 0 -0 NEUTROPHILS RELATIVE PERCENT (BEAKER) (test code = 429) 41 % LYMPHOCYTES RELATIVE PERCENT (BEAKER) (test code = 430) 42 % MONOCYTES RELATIVE PERCENT (BEAKER) (test code = 431) 12 % EOSINOPHILS RELATIVE PERCENT (BEAKER) (test code = 432) 4 % BASOPHILS RELATIVE PERCENT (BEAKER) (test code = 437) 1 % NEUTROPHILS ABSOLUTE COUNT (BEAKER) (test code = 670) 3.28 K/ L 1.56-6.13 LYMPHOCYTES ABSOLUTE COUNT (BEAKER) (test code = 414) 3.40 K/ L 1.18-3.74 MONOCYTES ABSOLUTE COUNT (BEAKER) (test code = 415) 1.00 K/ L 0. 24-0.36 H EOSINOPHILS ABSOLUTE COUNT (BEAKER) (test code = 416) 0.34 K/ L 0.04-0.36 BASOPHILS ABSOLUTE COUNT (BEAKER) (test code = 417) 0.04 K/ L 0. 01-0.08 IMMATURE GRANULOCYTES-RELATIVE PERCENT (BEAKER) (test code = 2801) 0 % 0-1 CHEMISTRY MISCELLANEOUS [id number] 14:57:00* Test Item Value Reference Range Interpretation Comments CHEMISTRY TEST (test code = TESTC) UNKNOWN SUBSTANCE DRUGSCAN CHEMISTRY TEST RESULT (test code = RESULTC) Description: Syringe with Red Liquid (High Quantity of Blood) Findings:<B>Diphenhydramine: 23,912 ng/mLCarboxcyclic-Tetrahydrocannabinol (Carboxy-THC): 110 ng/mLAlprazolam: 51 ng/mLAcetaminophen: 41 ng/mLPromethazine: 69 ng/mLBenzotropine: 14 ng/mLCyclobenzaprine: 24 ng/mLIbuprofen: 80 ng/mL</B> Analysis by GC/MS and LC/MS/MS Analysis includes, but not limited to:*Marijuana: Delta 9-THC *Sympathomimetic Amines: Amphetamine, Methamphetamine, MDMA,MDA, MDEA, Phentermine, Ephedrine, Pseudoephedrine, Phenylpropanolamine*Cocaine*Opiates/Opioids: Codeine, Morphine, Heroin, Hydrocodone,Hydromorphone, Oxycodone, Oxymorphone, Methadone,Propoxyphene, Fentanyl, Sufentanil, Meperidine, Tramadol*Hallucinogens: Phencyclidine (PCP)*Barbiturates: Amobarbital, Butalbital, Pentobarbital,Phenobarbital, Secobarbital*Benzodiazepines: Alprazolam, Chlordiazepoxide, Clonazepam,Diazepam, Flurazepam, Flunitrazepam, Lorazepam,Nordiazepam, Oxazepam, Temazepam, Midazolam*Hypnotics/Sedatives: Ketamine, Zolpidem, Zopiclone*Antidepressants: Amitriptyline, Clomipramine, Desipramine,Imipramine, Doxepin, Desmethyldoxepin, Nortriptyline,Fluoxetine, Norfluoxetine, Paroxetine,Mirtazepine,Trazodone, Citalopram, Desmethylcitalopram,Venlafaxine, Desmethylvenlafaxine*Antihistamines: Brompheniramine, Diphenhydramine,Doxylamine, Chlorpheniramine, Pheniramine, Promethazine*Antitussive/Expectorants: Guaifenesin, Dextrometh orphan,Dextrorphan*Muscle Relaxants: Carisoprodol, Clonidine, Cyclobenzaprine,Meprobamate, Metaxolone, Methocarbamol, Tizanidine*Anticonvulsants: Carbamazepine, Felbamate, Gabapentin,Lamotrigine, Oxcarbazepine, Phenytoin, Mephenytoin,Primidone, Topiramate, Valproic Acid*Diuretics: Hydrochlorothiazide, Triamterene*Anaesthetics: Benzocaine, Lidocaine, Bupivacaine,Ropivacaine*Anabolic Steroids: Androstenedione, Androsterone,Boldenone, Dehydroepiandrosterone, Epitestosterone,Fluoxymesterone, Methandienone, Methanolone, 63-Pzclvj-Rbbndhsytjww, Nandrolone, Oxandrolone, Testosterone, Trenbolone, Stanazolol Screen Analysis by EIA Result Reviewed by: Dr. Jocelin Lyman and Ike Geradro The preceding result has been reviewed and is certified angelia as reported. Humberto Enriquez (Certifying Student Specialist) Test perfo rmed by: [employer] [address] [place] [id number] Bjuvsfpvv by: Ike Gerardo, Ph.D., Laboratory DirectorForensic Content Analyst SYRINGE FOR SUBSTANCE IDENTIFICATIONSENT TO EXPERTOXUA RFLX MICR CULT IF [id number] 12:03:00* Test Item Value Reference Range Interpretation Comments UA COLOR (test code = COLU) YELLOW YEL/STRAW UA APPEARANCE (test code = APPU) CLEAR CLEAR UA GLUCOSE DIPSTICK (test code = DGLUU) NEGATIVE NEGATIVE UA BILIRUBIN DIPSTICK (test code = BILU) NEGATIVE NEGATIVE UA KETONE DIPSTICK (test code = KETU) 1+ NEGATIVE A UA SPECIFIC GRAVITY (test code = SGU) 1.012 1.005-1.030 N UA BLOOD DIPSTICK (test code = DRAKE) NEGATIVE NEGATIVE UA PH DIPSTICK (test code = PARVIZ) 6.0 5.0-7.0 N UA PROTEIN DIPSTICK (test code = PROU) NEGATIVE NEGATIVE UA UROBILINIOGEN DIPSTICK (test code = URO) 0.2 mg/dL 0.2-1.0 UA NITRITE DIPSTICK (test code = JUVENAL) NEGATIVE NEGATIVE UA LEUKOCYTE ESTERASE DIPSTICK (test code = LEUU) NEGATIVE NEGA TIVE UA WBC (test code = WBCU) 0-3 WBC/HPF 0-3 UA RBC (test code = RBCU) 0-3 RBC/HPF 0-3 UA WBC NO REFLEX (test code = WBCUCL) 0-3 WBC/HPF 0-3 UA BACTERIA (test code = BACU) 2+ /HPF NONE SEEN A UA SQUAMOUS CELLS (test code = SQU) 0-5 /HPF NONE SEEN UA MUCUS (test code = MUCU) TRACE /LPF NONE SEEN Indication for culture: Flank PainSpecimen Description: CLEAN CATCH COMPREHENSIVE METABOLIC [id number] 05:45:00* Test Item Value Reference Range Interpretation Comments SODIUM (test code = NA) 139 mEq/L 134-147 N POTASSIUM (test code = K) 3.7 mEq/L 3.4-5.0 N CHLORIDE (test code = CL) 111 mEq/L 100-108 H CARBON DIOXIDE (test code = CO2) 22 mEq/L 21-33 N ANION GAP (test code = GAP) 10 0-20 N GLUCOSE (test code = GLU) 88 mg/dL 70-110 N BLOOD UREA NITROGEN (test code = BUN) 12 mg/dL 7-18 GLOMERULAR FILTRATION RATE (test code = GFR) 111.3 105-110 H Units of measure = ml/min/1.73 m2 CREATININE (test code = CREAT) 0.6 mg/dL 0.6-1.3 N TOTAL PROTEIN (test code = PROT) 7.4 g/dL 6.4-8.2 N ALBUMIN (test code = ALB) 3.60 g/dL 3.4-5.0 N CALCIUM (test code = CA) 8.1 mg/dL 8.0-10.5 N BILIRUBIN TOTAL (test code = BILT) 1.4 MG/DL <1.5 SGOT/AST (test code = AST) 270 IUnit/L 15-37 H SGPT/ALT (test code = ALT) 249 IUnit/L 15-65 H ALKALINE PHOSPHATASE TOTAL (test code = ALKP) 159 IUnit/L 20-125 H LIPID PROFILE (CORONARY RISK)2019-10-28 05:45:00* Test Item Value Reference Range Interpretation Comments TRIGLYCERIDES (test code = TRIG) 103 mg/dL 40-150 N CHOLESTEROL (test code = CHOL) 182 mg/dL <200 CHOLESTEROL/HDL RATIO (test code = CHOLHDL) 4.33 RATIO 3.27-4.44 N RISK ASSOCIATED WITH CHOL/HDL RATIOS: RISK MALE FEMALE1/2 AVERAGE 3.43 3.27AVERAGE 4.97 4.442X AVERAGE 9.55 7.053X AVERAGE 23.39 11.04 NOTE THAT THE REFERENCE VALUE IS RELATEDTO RISK LEVELS RECOMMENDED BY THE NATL.HEART, LUNG, AND BLOOD INST. HDL CHOLESTEROL (test code = HDL) 42.0 mg/dL 39-96 N LIPOPROTEIN LDL (test code = LDL) 114 mg/dL 0-100 H <100 OWZUWWY061-734 NEAR OPTIMAL/ABOVE [id number] AHRLSDHXJM421-741 HIGH>ZO=742 VERY HIGH*Guidelines provided by the National Cholesterol EducationProgram Adult Treatment Panel III CBC W/AUTO [id number] 05:24:00* Test Item Value Reference Range Interpretation Comments WHITE BLOOD CELL (test code = WBC) 7.56 x10 3/uL 4.5-11.0 N RED BLOOD CELL (test code = RBC) 3.88 x10 6/uL 3.54-5.02 N HEMOGLOBIN (test code = HGB) 10.8 g/dL 11.0-15.0 L HEMATOCRIT (test code = HCT) 33.6 % 33.0-45.0 N MEAN CELL VOLUME (test code = MCV) 86.6 fL 81.0-99.0 N MEAN CELL HGB (test code = MCH) 27.8 pg 27.0-33.0 N MEAN CELL HGB CONCETRATION (test code = MCHC) 32.1 g/dL 33.0-37. 0 L RED CELL DISTRIBUTION WIDTH CV (test code = RDW) 15.5 % 11.5- 14.5 H RED CELL DISTRIBUTION WIDTH SD (test code = RDW-SD) 48.1 fL 37 .0-54.0 N PLATELET COUNT (test code = PLT) 359 x10 3/uL 150-400 N MEAN PLATELET VOLUME (test code = MPV) 9.6 fL 7.0-9.0 H NEUTROPHIL % (test code = NT%) 59.5 % 56.0-77.0 N IMMATURE GRANULOCYTE % (test code = IG%) 0.1 % 0.0-2.0 N LYMPHOCYTE % (test code = LY%) 24.3 % 14.0-32.0 N MONOCYTE % (test code = MO%) 9.5 % 4.8-9.0 H EOSINOPHIL % (test code = EO%) 6.2 % 0.3-3.7 H BASOPHIL % (test code = BA%) 0.4 % 0.0-2.0 N NUCLEATED RBC % (test code = NRBC%) 0.0 % 0-0 N NEUTROPHIL # (test code = NT#) 4.49 x10 3/uL 2.0-7.6 N IMMATURE GRANULOCYTE # (test code = IG#) 0.01 x10 3/uL 0.00-0.03 N LYMPHOCYTE # (test code = LY#) 1.84 x10 3/uL 1.0-3.8 N MONOCYTE # (test code = MO#) 0.72 x10 3/uL 0.1-0.8 N EOSINOPHIL # (test code = EO#) 0.47 x10 3/uL 0.0-0.2 H BASOPHIL # (test code = BA#) 0.03 x10 3/uL 0.0-0.2 N NUCLEATED RBC # (test code = NRBC#) 0.00 x10 3/uL 0.0-0.1 N MANUAL DIFF REQUIRED (test code = MDIFF) NO DRUGS OF ABUSE SCREEN [id number] 20:19:00* Test Item Value Reference Range Interpretation Comments URN COCAINE (test code = COCAURN) NEGATIVE NEGATIVE URN CANNABINOIDS (test code = CANNABURN) POSITIVE NEGATIVE A URN AMPHETAMINE (test code = AMPHETURN) NEGATIVE NEGATIVE URN BARBITURATE (test code = BARBITURN) NEGATIVE NEGATIVE URN BENZODIAZEPINE (test code = BENZOURN) POSITIVE NEGATIVE A Cut-off value:200 ng/mL URN OPIATES (test code = OPIATURN) NEGATIVE NEGATIVE Cut-off value:2000 ng/mL URN PHENCYCLIDINE (PCP) (test code = PHENCURN) NEGATIVE NEGATIV E Cutoffs:Barbiturates 200 ng/mLBenzodiazepines 200 ng/mLTHC Cannabinoids 50 ng/mLOpiates(Morphine) 2000 ng/mLAmphetamine 1000 ng/mLCocaine 300 ng/mLPCP phencyclidine 25 ng/mL Unconfirmed screening results shouldnot be used for non-medical purposes. DRUGS OF ABUSE SCREEN [id number] 20:06:00* Test Item Value Reference Range Interpretation Comments URN COCAINE (test code = COCAURN) NEGATIVE NEGATIVE URN CANNABINOIDS (test code = CANNABURN) NEGATIVE URN AMPHETAMINE (test code = AMPHETURN) NEGATIVE NEGATIVE URN BARBITURATE (test code = BARBITURN) NEGATIVE NEGATIVE URN BENZODIAZEPINE (test code = BENZOURN) NEGATIVE URN OPIATES (test code = OPIATURN) NEGATIVE NEGATIVE Cut-off value:2000 ng/mL URN PHENCYCLIDINE (PCP) (test code = PHENCURN) NEGATIVE NEGATIV E Cutoffs:Barbiturates 200 ng/mLBenzodiazepines 200 ng/mLTHC Cannabinoids 50 ng/mLOpiates(Morphine) 2000 ng/mLAmphetamine 1000 ng/mLCocaine 300 ng/mLPCP phencyclidine 25 ng/mL Unconfirmed screening results shouldnot be used for non-medical purposes. TSH REFLEX TO [id number] 19:15:00* Test Item Value Reference Range Interpretation Comments TSH REFLEX TO FT4 (test code = TSHREFLEX) 1.67 IU/mL 0.42-5.47 N [id number] 19:09:00* Test Item Value Reference Range Interpretation Comments ACETAMINOPHEN (test code = ACET) < 2 ug/mL 10-30 L [id number] 19:09:00* Test Item Value Reference Range Interpretation Comments SALICYLATE (test code = HELEN) < 1.7 mg/dL 2.8-20.0 L - XR CHEST 1 [id number] 04:43:00 FAX: Miguel Angel Yu MD [phone] [place]: St: REG Name: BELIA PEÑA [facility] : [birth year] Age/S: 38/F [address] [place] [address] Unit #: [id number] Loc: [place] [address] Phys: Miguel Angel Tse MD Acct: [id number] Dis Date: Status: REG ER PHONE #: [phone] Exam Date: 10/27/2019 0438 FAX #: [phone] Reason: after CVL -- right IJ EXAMS: CPT CODE: [id number] XR CHEST 1 V 14912 Study: - XR CHEST 1 V 10/27/2019 4:17 AM Patient Name: BELIA VIGIL MR: [id number] : 1980; Age: 38 years y/o Female Ordering Physician: Miguel Angel Tse MD Clinical Indication: after CVL -- right IJ Comp arison: 06/20/2019 FINDINGS LUNGS: The lungs are uriah ar of consolidation, pleural effusion, and pneumothorax. HEA RT AND MEDIASTINUM: Normal size heart. LINES: Right internal jugul ar central venous catheter tip overlying the atriocaval junction. OSSEOUS STRUCTURES: No fracture, dislocation, or suspicious focal os seous lesion. OTHER: Stable postoperative change of cholecystectom y. Stable postoperative change overlying the EG junction. IMPRESSION: Right IJ central line insertion tip overl skylar the atriocaval junction without pneumothorax. SL: TPAINTER-H at 0443 Reported and signed by: Abhijeet Eduardo M.D. PAGE 1 Signed Report (CONTINUED) FAX: Miguel Angel Yu MD [phone] [place]: St: REG Name: BELIA VIGIL [facility] : 1980 A ge/S: 38/F [address] [place] [address] Blvd Unit #: [id number] Loc : [place] [address] Phys: Miguel Angel Tse MD Acct: [id number] Dis Date: Status: REG ER PHONE #: [phone] E xam Date: 10/27/2019 043 FAX #: [phone] Reas on: after CVL -- right IJ EXAMS: CPT CODE: [id number] XR CHEST 1 V [id number] <Continued> CC: Miguel Angel Tse MD Technologist: RT Brianda(R) Trnscrd Date/Time/By: 10/27/2019 (0443) : By: [email or web address] Orig Print D/T: S: 10/27/2019 (0446) PAGE 2 Signed Report COMPREHENSIVE METABOLIC [id number] 04:15:00* Test Item Value Reference Range Interpretation Comments SODIUM (test code = NA) 140 mEq/L 134-147 N POTASSIUM (test code = K) 3.6 mEq/L 3.4-5.0 N CHLORIDE (test code = CL) 111 mEq/L 100-108 H CARBON DIOXIDE (test code = CO2) 22 mEq/L 21-33 N ANION GAP (test code = GAP) 11 0-20 N GLUCOSE (test code = GLU) 100 mg/dL 70-110 N BLOOD UREA NITROGEN (test code = BUN) 21 mg/dL 7-18 H GLOMERULAR FILTRATION RATE (test code = GFR) 79.9 105-110 L Units of measure = ml/min/1.73 m2 CREATININE (test code = CREAT) 0.8 mg/dL 0.6-1.3 N TOTAL PROTEIN (test code = PROT) 8.4 g/dL 6.4-8.2 H ALBUMIN (test code = ALB) 4.10 g/dL 3.4-5.0 N CALCIUM (test code = CA) 9.1 mg/dL 8.0-10.5 N BILIRUBIN TOTAL (test code = BILT) 0.5 MG/DL <1.5 N SGOT/AST (test code = AST) 59 IUnit/L 15-37 H SGPT/ALT (test code = ALT) 72 IUnit/L 15-65 H ALKALINE PHOSPHATASE TOTAL (test code = ALKP) 100 IUnit/L 20-125 N [id number] 04:15:00* Test Item Value Reference Range Interpretation Comments LIPASE (test code = LIP) 53 IUnit/L 73-393 L HCG SERUM [id number] 04:15:00* Test Item Value Reference Range Interpretation Comments HCG SERUM QUAL (test code = HCGQL) SERUM NEGATIVE NEGATIVE [id number] 04:15:00* Test Item Value Reference Range Interpretation Comments TROPONIN-I (test code = TROPI) < 0.015 ng/mL 0.000-0.045 N Negative: <= 0.045 Positive: >= 0.046 Correlation with serial results, other cardiac markers andclinical findings is necessary to determine the clinicalsignificance of this result. Results using different methodologies should not be comparedto one another as quantitative results may vary by method. PROTHROMBIN [id number] 04:06:00* Test Item Value Reference Range Interpretation Comments PROTHROMBIN TIME PATIENT (test code = PTP) 11.9 SECONDS 9.3-12.9 N INTERNATIONAL NORMAL RATIO (test code = INR) 1.1 0.8-1.2 N TARGET INR BY INDICATION Indication INR1. Prophylaxis of venous thrombosis 2.0 - 3.0 (orthopedic surgery), Prophylaxis of venous thrombosis (other than high-risk surgery), Treatment of Deep Vein Thrombosis/Pulmonary Embolism, Prevention of systemic embolism - Tissue heart valves, Acute Myocardial Infarction (to prevent systemic embolism), Valvular heart disease, Atrial Fibrillation, Bileaflet mechanical valve in aortic position.2. Mechanical prosthetic valves (high risk), 2.5 - 3.5 Presence of Lupus Anticoagulant or Antiphospholipid Antibodies, Prevention of systemic embolism - Acute Myocardial Infarction (to prevent recurrent infarct). COMPREHENSIVE METABOLIC [id number] 04:02:00* Test Item Value Reference Range Interpretation Comments SODIUM (test code = NA) mEq/L 134-147 POTASSIUM (test code = K) mEq/L 3.4-5.0 CHLORIDE (test code = CL) mEq/L 100-108 CARBON DIOXIDE (test code = CO2) mEq/L 21-33 ANION GAP (test code = GAP) 0-20 GLUCOSE (test code = GLU) mg/dL 70-110 BLOOD UREA NITROGEN (test code = BUN) mg/dL 7-18 GLOMERULAR FILTRATION RATE (test code = GFR) 105-110 CREATININE (test code = CREAT) mg/dL 0.6-1.3 TOTAL PROTEIN (test code = PROT) g/dL 6.4-8.2 ALBUMIN (test code = ALB) g/dL 3.4-5.0 CALCIUM (test code = CA) mg/dL 8.0-10.5 BILIRUBIN TOTAL (test code = BILT) MG/DL <1.5 SGOT/AST (test code = AST) IUnit/L 15-37 SGPT/ALT (test code = ALT) IUnit/L 15-65 ALKALINE PHOSPHATASE TOTAL (test code = ALKP) IUnit/L 20-125 [id number] 04:02:00* Test Item Value Reference Range Interpretation Comments LIPASE (test code = LIP) IUnit/L 73-393 HCG SERUM [id number] 04:02:00* Test Item Value Reference Range Interpretation Comments HCG SERUM QUAL (test code = HCGQL) SERUM NEGATIVE NEGATIVE [id number] 04:02:00* Test Item Value Reference Range Interpretation Comments TROPONIN-I (test code = TROPI) ng/mL 0.000-0.045 CBC W/AUTO [id number] 03:58:00* Test Item Value Reference Range Interpretation Comments WHITE BLOOD CELL (test code = WBC) 11.39 x10 3/uL 4.5-11.0 H RED BLOOD CELL (test code = RBC) 4.19 x10 6/uL 3.54-5.02 N HEMOGLOBIN (test code = HGB) 11.8 g/dL 11.0-15.0 N HEMATOCRIT (test code = HCT) 35.9 % 33.0-45.0 N MEAN CELL VOLUME (test code = MCV) 85.7 fL 81.0-99.0 N MEAN CELL HGB (test code = MCH) 28.2 pg 27.0-33.0 N MEAN CELL HGB CONCETRATION (test code = MCHC) 32.9 g/dL 33.0-37. 0 L RED CELL DISTRIBUTION WIDTH CV (test code = RDW) 15.5 % 11.5- 14.5 H RED CELL DISTRIBUTION WIDTH SD (test code = RDW-SD) 48.1 fL 37 .0-54.0 N PLATELET COUNT (test code = PLT) 457 x10 3/uL 150-400 H MEAN PLATELET VOLUME (test code = MPV) 10.5 fL 7.0-9.0 H NEUTROPHIL % (test code = NT%) 52.5 % 56.0-77.0 L IMMATURE GRANULOCYTE % (test code = IG%) 0.3 % 0.0-2.0 N LYMPHOCYTE % (test code = LY%) 34.7 % 14.0-32.0 H MONOCYTE % (test code = MO%) 9.3 % 4.8-9.0 H EOSINOPHIL % (test code = EO%) 2.8 % 0.3-3.7 N BASOPHIL % (test code = BA%) 0.4 % 0.0-2.0 N NUCLEATED RBC % (test code = NRBC%) 0.0 % 0-0 N NEUTROPHIL # (test code = NT#) 5.99 x10 3/uL 2.0-7.6 N IMMATURE GRANULOCYTE # (test code = IG#) 0.03 x10 3/uL 0.00-0.03 N LYMPHOCYTE # (test code = LY#) 3.95 x10 3/uL 1.0-3.8 H MONOCYTE # (test code = MO#) 1.06 x10 3/uL 0.1-0.8 H EOSINOPHIL # (test code = EO#) 0.32 x10 3/uL 0.0-0.2 H BASOPHIL # (test code = BA#) 0.04 x10 3/uL 0.0-0.2 N NUCLEATED RBC # (test code = NRBC#) 0.00 x10 3/uL 0.0-0.1 N MANUAL DIFF REQUIRED (test code = MDIFF) NO - CT ABD PELVIS W/O [id number] 03:53:00 Name: YARITZABELIA JOSE [facility] : 1980 Age/S: 38 / F [address] [place] [address] Unit #: [id number] Loc: [place] [address] Phys: Miguel Angel Tse MD Acct: [id number] Dis Date: Status: REG ER PHONE #: [phone] Exam Date: 10/27/2019 0323 FAX #: [phone] Reason: acute abdominal pain, history of pancreatic res EXAMS: CPT CODE: [id number] CT ABD PELVIS W/O CONT 78860 STUDY: - CT ABD PELVIS W/O CONT 10/27/2019 2:49 AM Ordering Physician: Miguel Angel Tse MD Patient Name: BELIA VIGIL MR: [id number] : 1980; Age: 38 years y/o Female Clinical Indication: Bilateral flank pain and hematuria. acute abdominal pain, history of pancreatic resection . History of pancreatic cancer. Comparison: 10/26/2019 TECHNIQUE: Multiple contiguous noncontrast transaxial CT images were obtained through the abdomen and pelvis. Sagittal and coronal reformatted images were prepared. CT imaging performed at this location utili zes radiation dose optimization techniques which include one or more of th e following: -Automated exposure control -Adjustment of the mA and/or kV according to patient size -Use of iterative reconstruction te chnique CT Radiation Dose DLP: 446.20 mGy-cm CT ABDOMEN AND PELVIS WITHOUT CONTRAST: VISUALIZED LUNG BASES: Mild dependent subsegmental atelectasis and scarring in both lung ba ses. Normal size heart. Incompletely visualized bilateral breast imp lants. BOWEL GAS: Mild constipation greatest in the splenic flexur e. APPENDIX: Normal appendix without inflammatory change. STOMACH: U nder distended appropriately thick-walled. Thick-walled stomach. PERITONEUM AND MESENTERY: Free Air: No evidence of pneumoperitoneum. Free Fluid: No evidence of significant free fluid, loculated fluid, peripherally enhancing abscess, or hemorrhage. Mesenteric and peritoneal fat: Normal without focal lesion or inflammation. PAGE 1 Signed Report (CONTINUED) Name: BELIA VIGIL [facility] : 1980 Age/S: 38 / F [address] [place] [address] Unit #: [id number] Loc: [place] [address] Phys: Miguel Angel Tse MD Acct: [id number] Dis Date: Sta tus: REG ER PHONE #: [phone] Exam Date : 10/27/2019322 FAX #: [phone] Reason: acute ab dominal pain, history of pancreatic res EXAMS: CPT CODE: [id number] CT ABD PELVIS W/O CONT 22452 <Continued> LYMPH NODES: Stable scattered subcentimeter central mesenteric and retroperitoneal lymph nodes without interval lymphadenopathy or mass. VASCULAR: Abdominal Aorta: Normal caliber nonenhanced abdominal aorta. IVC: Normal caliber nonenhanced. ABDOMINAL ORGANS: Liver: Mildly prominent liver measuring 18.7 cm critical dimension associated with diffuse steatosis. Gallbladder: Postoperative change of cholecystectomy. Biliary Tree: Mildly prominent to dilated intrahepatic and extrahepatic bile ducts likely physiological in nature status post cholecystectomy. Kidneys: Normal size nonen hanced kidneys with numerous variable size bilateral renal calculi ranging from 1-5 mm. No ureterolithiasis or hydronephrosis bilaterally. Small p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 RBCU) TNTC #RBC/HPF 0-3 A UA BACTERIA (test code = BACU) TRACE /HPF NONE-TRACE UA SQUAMOUS CELLS (test code = SQU) TRACE /HPF NONE UA CULTURE NEEDED? (test code = UACULT) NO, WBC<10 Criteria Culture CHK SOURCE OF URINE: CLEAN CATCHIndication for culture: Dysuria/FrequencyUA RFLX MICR CULT IF [id number] 13:38:00* Test Item Value Reference Range Interpretation Comments UA COLOR (test code = COLU) PEACH discript YEL/STRAW A UA APPEARANCE (test code = APPU) HAZY discript CLEAR A UA GLUCOSE DIPSTICK (test code = DGLUU) NEGATIVE mg/dL NEG UA BILIRUBIN DIPSTICK (test code = BILU) NEGATIVE mg/dL NEG UA KETONE DIPSTICK (test code = KETU) NEGATIVE mg/dL NEG UA SPECIFIC GRAVITY (test code = SGU) 1.015 SG 1.005-1.030 UA BLOOD DIPSTICK (test code = DRAKE) 3+ mg/DL NEG A UA PH DIPSTICK (test code = PARVIZ) 7.0 pH UNITS 5.0-7.0 UA PROTEIN DIPSTICK (test code = PROU) 1+ mg/dL NEG A UA UROBILINIOGEN DIPSTICK (test code = URO) 0.2 mg/dL <2.0 UA NITRITE DIPSTICK (test code = JUVENAL) NEGATIVE SCREEN NEG UA LEUKOCYTE ESTERASE DIPSTICK (test code = LEUU) NEGATIVE Leuk/mcL NEGATIVE UA CULTURE NEEDED? (test code = UACULT) Criteria Culture CHK SOURCE OF URINE: CLEAN CATCHIndication for culture: Dysuria/Frequency- CT ABD PELVIS W/O [id number] 11:43:00 Name: BELIA VIGIL [facility] : 1980 Age/S: 38 / F [address] Unit #: [id number] Loc: [place] [address] Phys: Edel Ramos MD Acct: [id number] Dis Date: Status: ADM IN PHONE #: [phone] Exam Date: 06/30/2019 1121 FAX #: Reason: abd pain EXAMS: CPT: [id number] CT ABD PELVIS W/O CONT 73212 EXAM: - CT ABD PELVIS W/O CONT LOCATION: C3 HISTORY: 38 years -old Female with abd pain TECHNIQUE: Contrast - No IV contrast was given. No oral contrast was given Noncontrast phase - abdomen and pelvis including all of kidneys Reconstructions - coronal and sagittal planes This exam was performed according to our departmental dose-optimization program, which includes automated exposure control, adjustment of the mA and/or kV according to patient size and/or use of iterative reconstruction technique COMPARISON: None FINDINGS: Statements: Lack of intravenous contrast compromises evaluation of abdominopelvic organs and vasculature. Lack of oral contrast compromises evaluation of bowel. Thoracic: Included images of the lower chest demonstrate no abnormalities. Hepatobiliary: The liver is normal without focal lesion. Status post cholecystectomy. No biliary dilation. Pancreas: Normal. Spleen: Absent. Adrenals: Normal. Genitourinary: Nonobstructive stones are identified in both kidneys measuring up to 4 mm. No hydronephrosis. Phleboliths are identified. Evaluation of the bladder is limited, but no obvious bladder abnormality is present. Gastrointestinal: No bowel obstruction or perienteric inflammation. The appendix is normal. Vascular: The aorta is grossly normal in appearance. PAGE 1 Signed Report (CONTINUED) Name: BELIA VIGIL [place] : 1980 Age/S: 38 / F [address] Unit #: [id number] Loc: [place] [address] Phys: Edel Ramos MD Acct: [id number] Dis Date: Status: ADM IN PHONE #: [phone] Exam Date: 06/30/2019 1127 FAX #: Reason: abd pain EXAMS: CPT: [id number] CT ABD PELVIS W/O CONT 66047 < Continued> Lymphatics: No enlarged lymph nodes by CT size criteria. Bones/Soft Tissues: No acute osseous findings. No ventral hernias. Peritoneum/Other: No extraluminal air. No extraluminal fluid. IMPRESSION: No acute findings. Nonobstructive stones in both kidneys measuring up to 4 mm. at 1143 Reported and signed by: BOBBI KNOWLES M.D. CC: Daniel Man MD; Edel Ramos MD Technologist:Jacqueline Hammer RT(R) CTDI: DLP: Trnscb Date/Time: 06/30/2019 (1143) [email or web address] Orig Print D/T: S: 06/30/2019 (1146) PAGE 2 Signed Report BASIC METABOLIC [id number] 07:22:00* Test Item Value Reference Range Interpretation Comments SODIUM (test code = NA) 139 mmol/L 134-147 N POTASSIUM (test code = K) 3.9 mmol/L 3.4-5.0 N CHLORIDE (test code = CL) 107 mmol/L 100-108 N CARBON DIOXIDE (test code = CO2) 27 mmol/L 21-32 N ANION GAP (test code = GAP) 5.0 GAP calc 4.0-15.0 N GLUCOSE (test code = GLU) 124 MG/DL 70-110 H BLOOD UREA NITROGEN (test code = BUN) 7 MG/DL 7-18 N GLOMERULAR FILTRATION RATE (test code = GFR) >=60 max estimate estG FR >60 CREATININE (test code = CREAT) 0.5 MG/DL 0.6-1.0 L CALCIUM (test code = CA) 9.1 MG/DL 8.5-10.1 N CBC W/AUTO [id number] 06:22:00* Test Item Value Reference Range Interpretation Comments WHITE BLOOD CELL (test code = WBC) 6.0 K/mm3 3.5-11.0 N RED BLOOD CELL (test code = RBC) 4.82 M/mm3 4.70-6.10 N HEMOGLOBIN (test code = HGB) 13.3 G/DL 10.4-14.9 N HEMATOCRIT (test code = HCT) 40.5 % 31.5-44.1 N MEAN CELL VOLUME (test code = MCV) 84.0 Fl 84.5-98.6 L MEAN CELL HGB (test code = MCH) 27.6 pg 27.0-34.2 N MEAN CELL HGB CONCETRATION (test code = MCHC) 32.8 G/DL 31.5-34. 0 N RED CELL DISTRIBUTION WIDTH (test code = RDW) 15.7 SD 11.5-14. 5 H PLATELET COUNT (test code = PLT) 711.0 K/mm3 150-450 H MEAN PLATELET VOLUME (test code = MPV) 9.90 fL 7.0-10.5 N NEUTROPHIL % (test code = NT%) 39.1 % 40-76 L LYMPHOCYTE % (test code = LY%) 45.7 % 20.5-51.1 N MONOCYTE % (test code = MO%) 8.9 % 1.7-9.3 N EOSINOPHIL % (test code = EO%) 6.1 % 0.0-6.0 H BASOPHIL % (test code = BA%) 0.2 % 0.0-2.0 N NEUTROPHIL # (test code = NT#) 2.36 K/mm3 1.8-7.6 N LYMPHOCYTE # (test code = LY#) 2.8 K/mm3 0.6-3.2 N MONOCYTE # (test code = MO#) 0.5 K/mm3 0.3-1.1 N EOSINOPHIL # (test code = EO#) 0.4 K/mm3 0.0-0.4 N BASOPHIL # (test code = BA#) 0.0 K/mm3 0.0-0.1 N MANUAL DIFF REQUIRED (test code = MDIFF) NO DIFF/SCN CRITERIA ALK PHOS [id number] 06:09:00* Test Item Value Reference Range Interpretation Comments TOTAL ALKALINE PHOSPHATASE (test code = ALKPTOT) 143 IU/L 39-11 7 A ALK PHOS ISO-INTESTINE (test code = INTAP) 10 % 0-18 Performed At: [facility] [address] [id number] Paulie Farris MD Ph:[phone] At: [facility] [address] [id number] Sanjai MD Ph:[phone] ALK PHOS ISO-BONE (test code = BONEAP) 24 % 14-68 ALK PHOS ISO-LIVER (test code = LIVAP) 66 % 18-85 [id number] 15:49:00 RUN DATE: 06/26/19 [facility] PAGE 1 RUN TIME: 1549 Specimen Inqui ry RUN USER: INTERFACE PATIENT: BELIA VIGIL ACCT #: [id number] LOC: [place] U #: [id number] AGE/SX: 38/F [facility]19REG DR: Fredrick Nicolas MD : 78 BED: DIS: STATUS: [facility] TLOC: SPEC #: [id number] RECD: 06/20/19 STATUS: SHAKRIA DEVIN #: [id number] KAJAL: 06/20/[address] [facility] [address]: Fredrick Nicolas MD ENTERED: 06/20/19 SP TYPE: SURG OTHR DR: Maggie Rae dinora or Family PhysicianORDERED: SURG PATH LVL 4 COPIES TO: No Primary or Family Physician Hakeem Nicolas MD [address] [place] [address] [phone] [email or web address] HISTOLOGY: TISSUE ID BLK PCS NITISH LEV PROCEDURE DISPOSITION ____ ___ ___ ___ __ TOE, NOS A 1 1 PROCEDURES: SURG PATH LVL 4 (06/20/19) TISSUES: A. TOE, NOS - Right big toe toenail CLINICAL HISTORY LT TOENAIL INFECTION -L03.032; TINEA UNGUIUM -B35.1 CPT CODES CPT CODE(S): 38364 , 97354 , , , , , FINAL DIAGNOSIS Toenail, right big, removal: NAIL PLATE GROSS DESCRIPTION Right big toenail. Received in formalin is a fragment of nail, 1.1 x 0.7 x 0.1 cm. The specimen is trisected and entirely submitted as A. ba/nr Grossing performed at [facility] Pathology, [address] [place] [address], [address], [place] [address]. Brush Stainer: Isacc Bledsoe M.D. CONTINUED ON NEXT PAGE RUN DATE: 06/26/19 [facility] PAGE 2 RUN TIME: 1548 Specimen Inquiry RUN USER: INTERFACE SPEC #: [facility]:[id number] PATIENT: BELIA VIGIL #[id number] (Continued)- MICROSCOPIC DESCRIPTION Right big toenail. Sections demonst rate a portion of toenail with no significant inflammation. The Silver stain demonstrates no fungal organisms. Signed SIGNATURE ON FILE Pk [place] 06/26/19 1549 END OF REPORT CBC W/AUTO [id number] 12:49:00* Test Item Value Reference Range Interpretation Comments WHITE BLOOD CELL (test code = WBC) 8.5 K/mm3 3.5-11.0 N RED BLOOD CELL (test code = RBC) 3.86 M/mm3 4.70-6.10 L HEMOGLOBIN (test code = HGB) 10.8 G/DL 10.4-14.9 N HEMATOCRIT (test code = HCT) 32.0 % 31.5-44.1 N MEAN CELL VOLUME (test code = MCV) 82.9 Fl 84.5-98.6 L MEAN CELL HGB (test code = MCH) 28.0 pg 27.0-34.2 N MEAN CELL HGB CONCETRATION (test code = MCHC) 33.8 G/DL 31.5-34. 0 N RED CELL DISTRIBUTION WIDTH (test code = RDW) 15.0 SD 11.5-14. 5 H PLATELET COUNT (test code = PLT) 622.0 K/mm3 150-450 H MEAN PLATELET VOLUME (test code = MPV) 10.10 fL 7.0-10.5 N NEUTROPHIL % (test code = NT%) 41.3 % 40-76 N LYMPHOCYTE % (test code = LY%) 40.3 % 20.5-51.1 N MONOCYTE % (test code = MO%) 10.1 % 1.7-9.3 H EOSINOPHIL % (test code = EO%) 7.9 % 0.0-6.0 H BASOPHIL % (test code = BA%) 0.4 % 0.0-2.0 N NEUTROPHIL # (test code = NT#) 3.50 K/mm3 1.8-7.6 N LYMPHOCYTE # (test code = LY#) 3.4 K/mm3 0.6-3.2 H MONOCYTE # (test code = MO#) 0.9 K/mm3 0.3-1.1 N EOSINOPHIL # (test code = EO#) 0.7 K/mm3 0.0-0.4 H BASOPHIL # (test code = BA#) 0.0 K/mm3 0.0-0.1 N MANUAL DIFF REQUIRED (test code = MDIFF) NO DIFF/SCN CRITERIA SLIDE REVIEW CONSISTANT WITH AUTO DIFFERENTIAL. BASIC METABOLIC [id number] 12:32:00* Test Item Value Reference Range Interpretation Comments SODIUM (test code = NA) 140 mmol/L 134-147 N POTASSIUM (test code = K) 5.1 mmol/L 3.4-5.0 H CHLORIDE (test code = CL) 111 mmol/L 100-108 H CARBON DIOXIDE (test code = CO2) 23 mmol/L 21-32 N ANION GAP (test code = GAP) 6.0 GAP calc 4.0-15.0 N GLUCOSE (test code = GLU) 116 MG/DL 70-110 H BLOOD UREA NITROGEN (test code = BUN) 6 MG/DL 7-18 L GLOMERULAR FILTRATION RATE (test code = GFR) >=60 max estimate estG FR >60 CREATININE (test code = CREAT) 0.6 MG/DL 0.6-1.0 N CALCIUM (test code = CA) 8.4 MG/DL 8.5-10.1 L UR HCG [id number] 08:23:00* Test Item Value Reference Range Interpretation Comments UR HCG QUAL (test code = HCGQLU) NEGATIVE NEGATIVE CBC W/AUTO [id number] 18:03:00* Test Item Value Reference Range Interpretation Comments WHITE BLOOD CELL (test code = WBC) 8.3 K/mm3 3.5-11.0 N RED BLOOD CELL (test code = RBC) 3.76 M/mm3 4.70-6.10 L HEMOGLOBIN (test code = HGB) 10.5 G/DL 10.4-14.9 N HEMATOCRIT (test code = HCT) 31.1 % 31.5-44.1 L MEAN CELL VOLUME (test code = MCV) 82.7 Fl 84.5-98.6 L MEAN CELL HGB (test code = MCH) 27.9 pg 27.0-34.2 N MEAN CELL HGB CONCETRATION (test code = MCHC) 33.8 G/DL 31.5-34. 0 N RED CELL DISTRIBUTION WIDTH (test code = RDW) 15.0 SD 11.5-14. 5 H PLATELET COUNT (test code = PLT) 444.0 K/mm3 150-450 N MEAN PLATELET VOLUME (test code = MPV) 10.90 fL 7.0-10.5 H NEUTROPHIL % (test code = NT%) 38.9 % 40-76 L LYMPHOCYTE % (test code = LY%) 40.9 % 20.5-51.1 N MONOCYTE % (test code = MO%) 13.6 % 1.7-9.3 H EOSINOPHIL % (test code = EO%) 6.4 % 0.0-6.0 H BASOPHIL % (test code = BA%) 0.2 % 0.0-2.0 N NEUTROPHIL # (test code = NT#) 3.21 K/mm3 1.8-7.6 N LYMPHOCYTE # (test code = LY#) 3.4 K/mm3 0.6-3.2 H MONOCYTE # (test code = MO#) 1.1 K/mm3 0.3-1.1 N EOSINOPHIL # (test code = EO#) 0.5 K/mm3 0.0-0.4 H BASOPHIL # (test code = BA#) 0.0 K/mm3 0.0-0.1 N MANUAL DIFF REQUIRED (test code = MDIFF) NO DIFF/SCN CRITERIA SLIDE REVIEW CONSISTANT WITH AUTO DIFFERENTIAL. RBC [id number] 18:03:00* Test Item Value Reference Range Interpretation Comments PLATELET ESTIMATE (test code = PLTEST) ADEQUATE THOUSAND ADEQUATE PLATELET MORPHOLOGY (test code = PLTMORPH) NORMAL CBC W/AUTO [id number] 18:02:00* Test Item Value Reference Range Interpretation Comments WHITE BLOOD CELL (test code = WBC) 8.3 K/mm3 3.5-11.0 N RED BLOOD CELL (test code = RBC) 3.76 M/mm3 4.70-6.10 L HEMOGLOBIN (test code = HGB) 10.5 G/DL 10.4-14.9 N HEMATOCRIT (test code = HCT) 31.1 % 31.5-44.1 L MEAN CELL VOLUME (test code = MCV) 82.7 Fl 84.5-98.6 L MEAN CELL HGB (test code = MCH) 27.9 pg 27.0-34.2 N MEAN CELL HGB CONCETRATION (test code = MCHC) 33.8 G/DL 31.5-34. 0 N RED CELL DISTRIBUTION WIDTH (test code = RDW) 15.0 SD 11.5-14. 5 H PLATELET COUNT (test code = PLT) 444.0 K/mm3 150-450 N MEAN PLATELET VOLUME (test code = MPV) 10.90 fL 7.0-10.5 H NEUTROPHIL % (test code = NT%) 38.9 % 40-76 L LYMPHOCYTE % (test code = LY%) 40.9 % 20.5-51.1 N MONOCYTE % (test code = MO%) 13.6 % 1.7-9.3 H EOSINOPHIL % (test code = EO%) 6.4 % 0.0-6.0 H BASOPHIL % (test code = BA%) 0.2 % 0.0-2.0 N NEUTROPHIL # (test code = NT#) 3.21 K/mm3 1.8-7.6 N LYMPHOCYTE # (test code = LY#) 3.4 K/mm3 0.6-3.2 H MONOCYTE # (test code = MO#) 1.1 K/mm3 0.3-1.1 N EOSINOPHIL # (test code = EO#) 0.5 K/mm3 0.0-0.4 H BASOPHIL # (test code = BA#) 0.0 K/mm3 0.0-0.1 N MANUAL DIFF REQUIRED (test code = MDIFF) NO DIFF/SCN CRITERIA SLIDE REVIEW CONSISTANT WITH AUTO DIFFERENTIAL. CBC W/AUTO [id number] 18:02:00* Test Item Value Reference Range Interpretation Comments WHITE BLOOD CELL (test code = WBC) 8.3 K/mm3 3.5-11.0 N RED BLOOD CELL (test code = RBC) 3.76 M/mm3 4.70-6.10 L HEMOGLOBIN (test code = HGB) 10.5 G/DL 10.4-14.9 N HEMATOCRIT (test code = HCT) 31.1 % 31.5-44.1 L MEAN CELL VOLUME (test code = MCV) 82.7 Fl 84.5-98.6 L MEAN CELL HGB (test code = MCH) 27.9 pg 27.0-34.2 N MEAN CELL HGB CONCETRATION (test code = MCHC) 33.8 G/DL 31.5-34. 0 N RED CELL DISTRIBUTION WIDTH (test code = RDW) 15.0 SD 11.5-14. 5 H PLATELET COUNT (test code = PLT) 444.0 K/mm3 150-450 N MEAN PLATELET VOLUME (test code = MPV) 10.90 fL 7.0-10.5 H NEUTROPHIL % (test code = NT%) 38.9 % 40-76 L LYMPHOCYTE % (test code = LY%) 40.9 % 20.5-51.1 N MONOCYTE % (test code = MO%) 13.6 % 1.7-9.3 H EOSINOPHIL % (test code = EO%) 6.4 % 0.0-6.0 H BASOPHIL % (test code = BA%) 0.2 % 0.0-2.0 N NEUTROPHIL # (test code = NT#) 3.21 K/mm3 1.8-7.6 N LYMPHOCYTE # (test code = LY#) 3.4 K/mm3 0.6-3.2 H MONOCYTE # (test code = MO#) 1.1 K/mm3 0.3-1.1 N EOSINOPHIL # (test code = EO#) 0.5 K/mm3 0.0-0.4 H BASOPHIL # (test code = BA#) 0.0 K/mm3 0.0-0.1 N MANUAL DIFF REQUIRED (test code = MDIFF) NO DIFF/SCN CRITERIA SLIDE REVIEW CONSISTANT WITH AUTO DIFFERENTIAL. COMPREHENSIVE METABOLIC [id number] 16:56:00* Test Item Value Reference Range Interpretation Comments SODIUM (test code = NA) 141 mmol/L 134-147 N POTASSIUM (test code = K) 3.8 mmol/L 3.4-5.0 N CHLORIDE (test code = CL) 111 mmol/L 100-108 H CARBON DIOXIDE (test code = CO2) 24 mmol/L 21-32 N ANION GAP (test code = GAP) 6.0 GAP calc 4.0-15.0 N GLUCOSE (test code = GLU) 110 MG/DL 70-110 N BLOOD UREA NITROGEN (test code = BUN) 8 MG/DL 7-18 N GLOMERULAR FILTRATION RATE (test code = GFR) >=60 max estimate estG FR >60 CREATININE (test code = CREAT) 0.5 MG/DL 0.6-1.0 L TOTAL PROTEIN (test code = PROT) 7.4 G/DL 6.4-8.2 N ALBUMIN (test code = ALB) 3.2 G/DL 3.4-5.0 L GLOBULIN (test code = GLOB) 4.2 GM/dL ALBUMIN/GLOBULIN RATIO (test code = A/G) 0.8 RATIO 1.2-2.2 L CALCIUM (test code = CA) 8.6 MG/DL 8.5-10.1 N BILIRUBIN TOTAL (test code = BILT) 0.20 MG/DL 0.2-1.2 N SGOT/AST (test code = AST) 36 Unit/L 15-37 N SGPT/ALT (test code = ALT) 54 Unit/L 12-78 N ALKALINE PHOSPHATASE TOTAL (test code = ALKP) 200 Unit/L 45-117 H CBC W/AUTO [id number] 16:55:00* Test Item Value Reference Range Interpretation Comments WHITE BLOOD CELL (test code = WBC) 8.3 K/mm3 3.5-11.0 N RED BLOOD CELL (test code = RBC) 3.76 M/mm3 4.70-6.10 L HEMOGLOBIN (test code = HGB) 10.5 G/DL 10.4-14.9 N HEMATOCRIT (test code = HCT) 31.1 % 31.5-44.1 L MEAN CELL VOLUME (test code = MCV) 82.7 Fl 84.5-98.6 L MEAN CELL HGB (test code = MCH) 27.9 pg 27.0-34.2 N MEAN CELL HGB CONCETRATION (test code = MCHC) 33.8 G/DL 31.5-34. 0 N RED CELL DISTRIBUTION WIDTH (test code = RDW) 15.0 SD 11.5-14. 5 H PLATELET COUNT (test code = PLT) 444.0 K/mm3 150-450 N MEAN PLATELET VOLUME (test code = MPV) 10.90 fL 7.0-10.5 H NEUTROPHIL % (test code = NT%) % 40-76 L LYMPHOCYTE % (test code = LY%) % 20.5-51.1 N MONOCYTE % (test code = MO%) % 1.7-9.3 H EOSINOPHIL % (test code = EO%) % 0.0-6.0 H BASOPHIL % (test code = BA%) % 0.0-2.0 N NEUTROPHIL # (test code = NT#) K/mm3 1.8-7.6 N LYMPHOCYTE # (test code = LY#) K/mm3 0.6-3.2 H MONOCYTE # (test code = MO#) K/mm3 0.3-1.1 N EOSINOPHIL # (test code = EO#) K/mm3 0.0-0.4 H BASOPHIL # (test code = BA#) K/mm3 0.0-0.1 N MANUAL DIFF REQUIRED (test code = MDIFF) DIFF/SCN CRITERIA - FLUORO GUID CTRL ACC [id number] 16:17:00 Name: BELIA VIGIL [facility] Lesly : 1980 Age/S: 38 / F [id number] [address] Unit #: [id number] Loc: [place] [address] Phys: Daniel Man MD Acct: [id number] Dis Date: Status: ADM IN PHONE #: [phone] Exam Date: 06/24/2019 155 FAX #: Reason: PICC LINE EXAMS: CPT: [id number] FLUORO GUID CTRL ACC DEV 28333 Fluoro Time: DAP (Gy m2): Air Kerma (mGy): EXAMINATIONS: 1. NON-TUNNELED PERIPHERAL VENOUS CATHETER PLACEMENT. 2. SECOND AND THIRD ULTRASOUND GUIDED VASCULAR ACCESSES. LOCATION: S 17. HISTORY: Fungemia and bacteremia. SEDATION: The patient did not require conscious sedation for the procedure. RADIATION DOSE: Total reference air kerma 4.9 mGy. ANTIBIOTICS: None. Not indicated. CONTRAST: None. TECHNIQUE: The risks, benefits, and alternatives were discussed and informed consent was obtained. Prior to beginning the procedure, [place] Protocol was used to confirm the patient's identity and planned procedure. Maximum sterile barriers including cap, mask, hand hygiene, sterile gloves, sterile gown, large sterile drape and cutaneous antisepsis were used. Ultrasound was used to evaluate bilateral brachial veins. Images were recorded and saved to PACS. The skin over the right lateral brachial vein was initially sterilely prepped, draped, and infiltrated with lidocaine. After sterile prep, this vessel was accessed with a micropuncture needle using real-time ultrasound guidance. However, the microwire would not advance beyond the right axilla. Contrast was not injected due to patient's allergy to iodine. Next, the skin over the right medial brachial vein was infiltrated with lidocaine. This vessel was then accessed with a micropuncture needle using real-time ultrasound guidance. A microwire again would not advance beyond the right axilla. Next, the skin over the left brachial vein was prepped, draped, and infiltrated with lidocaine. This vessel was accessed with a micropuncture needle using real-time ultrasound guidance. The guidewire would not advance beyond the left axilla. After discussion with Dr. Ramos, it was decided to leave a midline catheter. The intravascular length from the access site to the left axilla was assessed. PAGE 1 Signed Report (CONTINUED) Name: BELIA BELTRAN [facility] : 0 Age/S: 38 / F [address] [facility] [place] Unit #: [id number] Loc: [place] [address] Phys: Daniel Man MD Acct: [id number] Dis Date: Status: ADM IN PHONE #: [phone] Exam Date: 06/24/2019 1559 FAX #: son: PICC LINE EXAMS: CPT: [id number] FLUORO GUID CTRL ACC DEV 41573 Fluoro Time: DAP (Gy m2): Air Kerma (mGy): <Continued> After dilating the tract, a dual-lumen catheter was inserted through a peel-away sheath. The catheter was flushed and secured in place. A sterile dressing was applied. ESTIMATED BLOOD LOSS: Less than 30 milliliters. COMPLICATIONS: None. DISCHARGED TO: Inpatient unit. FINDINGS: Ultrasound demonstrates patent bilateral brachial veins. The final fluoroscopic image demonstrates the left arm PICC with its tip at the junction of the left axillary and brachial veins. No complications are seen. IMPRESSION: Successful non-tunneled midline catheter placement via the left brachial vein with the tip at the junction of the left axillary and brachial veins. 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 PLAN: The catheter is ready for immediate use. at 1617 Reported and signed by: Carly Mensah M.D. CC: Daniel Man MD PAGE 2 Signed Report Name: BELIA VIGIL [facility] : 1980 Age/S: 38 / F [address] [address] Unit #: [id number] Loc: [place] [address] Phys: Daniel Man MD Acct: [id number] Dis Date: Status: ADM IN PHONE #: [phone] Exam Date: 06/24/2019 1555 FAX #: Reason: PICC LINE EXAMS: CPT: [id number] FLUORO GUID CTRL ACC DEV 99873 Fluoro Time: DAP (Gy m2): Air Kerma (mGy): <Continued> Technologist: Jacqueline Hammer, RT(R) Trnscb Date/Time: 06/24/2019 (1882) [email or web address] Orig Print D/T: S: 06/24/2019 (3988) PAGE 3 Signed Report - US GUIDANCE [facility] [id number] 16:17:00 Name: BELIA VIGIL [place] : 1980 Age/S: 38 / F [address] [facility] Unit #: [id number] Loc: [place] [address] Phys: Daniel Man MD Acct: [id number] Dis Date: Status: ADM IN PHONE #: [phone] Exam Date: 06/24/2019 1559 FAX #: Reason: PICC LINE ACCESS EXAMS: CPT: [id number] US [facility]UIDANCE [facility] ACCESS 59585 EXAMINATIONS: 1. NON-TUNNELED PERIPHERAL VENOUS CATHETER PLACEMENT. 2. SECOND AND THIRD ULTRASOUND GUIDED VASCULAR ACCESSES. LOCATION: S 17. HISTORY: Fungemia and bacteremia. SEDATION: The patient did not require conscious sedation for the procedure. RADIATION DOSE: Total reference air kerma 4.9 mGy. ANTIBIOTICS: None. Not indicated. CONTRAST: None. TECHNIQUE: The risks, benefits, and alternatives were discussed and informed consent was obtained. Prior to beginning the procedure, [place] Protocol was used to confirm the patient's identity and planned procedure. Maximum sterile barriers including cap, mask, hand hygiene, sterile gloves, sterile gown, large sterile drape and cutaneous antisepsis were used. Ultrasound was used to evaluate bilateral brachial veins. Images were recorded and saved to PACS. The skin over the right lateral brachial vein was initially sterilely prepped, draped, and infiltrated with lidocaine. After sterile prep, this vessel was accessed with a micropuncture needle using real-time ultrasound guidance. However, the microwire would not advance beyond the right axilla. Contrast was not injected due to patient's allergy to iodine. Next, the skin over the right medial brachial vein was infiltrated with lidocaine. This vessel was then accessed with a micropuncture needle using real-time ultrasound guidance. A microwire again would not advance beyond the right axilla. Next, the skin over the left brachial vein was prepped, draped, and infiltrated with lidocaine. This vessel was accessed with a micropuncture needle using real-time ultrasound guidance. The guidewire would not advance beyond the left axilla. After discussion with Dr. Ramos, it was decided to leave a midline catheter. The intravascular length from the access site to the left axilla was PAGE 1 Signed Report (CONTINUED) Name: BELIA [place] : 1980 Age/S: 38 / F [address] [facility] [place] Unit #: [id number] Loc: [place] [address] Phys: Daniel Man MD Acct: [id number] Dis Date: Status: ADM IN PHONE #: [phone] Exam Date: 06/24/2019 1555 FAX #: Reason: PICC LINE ACCESS EXAMS: CPT: [id number] US GUIDANCE [facility] ACCESS 94[address] <Continued> assessed. After dilating the tract, a dual-lumen catheter was inserted through a peel-away sheath. The catheter was flushed and secured in place. A sterile dressing was applied. ESTIMATED BLOOD LOSS: Less than 30 milliliters. COMPLICATIONS: None. DISCHARGED TO: Inpatient unit. FINDINGS: Ultrasound demonstrates patent bilateral brachial veins. The final fluoroscopic image demonstrates the left arm PICC with its tip at the junction of the left axillary and brachial veins. No complications are seen. IMPRESSION: Successful non-tunneled midline catheter placement via the left brachial vein with the tip at the junction of the left axillary and brachial veins. 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 PLAN: The catheter is ready for immediate use. at 1617 Reported and signed by: Carly Mensah M.D. CC: Daniel Man MD Technologist: Mary Caraballo Trnscb Date/Time: 06/24/2019 (9475) [id number] PAGE 2 Signed Report Name: BELIA [place] : 1980 Age/S: 38 / F [address] [address] Unit #: [id number] Loc: [place] [address] Phys: Daniel Man MD Acct: [id number] Dis Date: Status: ADM IN PHONE #: [phone] Exam Date: 06/24/2019 1555 FAX #: Reason: PICC LINE ACCESS EXAMS: CPT: [id number] US GUIDANCE VASC ACCESS [address] < Continued> Orig Print D/T: S: 06/24/2019 (1896) Probe: PAGE 3 Signed Report - XR ABDOMEN 1 [id number] 15:25:00 Name: BELIA VIGIL [place] : 1980 Age/S: 38 / F [address] [address] Unit #: [id number] Loc: [place] [address] Phys: Brooks Ramos MD Acct: [id number] Di s Date: Status: ADM IN PHONE #: Exam Date: 06/24/2019 1430 FAX #: Reason: abd distention EXAMS: CPT: [id number] XR ABDOMEN 1 V 20743 Fluoro Time: DAP (Gy m2): Air Kerma (mGy): EXAM: Abdominal xray IND ICATION: abd distention LOCATION CODE: C3 C OMPARISON: None TECHNIQUE: 2 views of the abdomen. D ISCUSSION: Gallbladder is surgically absent. Bowel gas pattern demonstrate mild fecal retention within the ascending, transve rse and descending colon. Osseous structure are grossly unremarkab le. Multiple calcific density in the pelvis are likely to represen t phlebolith. IMPRESSION: 1. St atus post cholecystectomy. 2. Normal bowel gas pattern. at 1525 Reported and signed by: John Alegre M.D. CC: Daniel Man MD; Edel Ramos MD PAGE 1 Signed Report Name: BELIA VIGIL [place] : 1980 Age/S: 38 / F [address] [address] #: [id number] Loc: [place] [address] Phys: Edel Ramos MD Acct: [id number] Dis Date: Status: ADM IN PHONE #: [phone] Exam Date: 06/24/2019 1430 FAX #: Reason: abd distention EX AMS: CPT: [id number] XR A BDOMEN 1 V 55660 Fluoro Time: DAP (Gy m2): Air Kerma (mGy): <Continued> Technologist: Jacqueline Hammer RT(R) Trnscb Date/Time: 06/24/2019 (1525) [email or web address] Orig Print D/T: S: 06/24/2019 (1907) PAGE 2 Signed Report COMPREHENSIVE METABOLIC [id number] 06:28:00* Test Item Value Reference Range Interpretation Comments SODIUM (test code = NA) 140 mmol/L 134-147 N POTASSIUM (test code = K) 3.1 mmol/L 3.4-5.0 L CHLORIDE (test code = CL) 108 mmol/L 100-108 N CARBON DIOXIDE (test code = CO2) 27 mmol/L 21-32 N ANION GAP (test code = GAP) 5.0 GAP calc 4.0-15.0 N GLUCOSE (test code = GLU) 111 MG/DL 70-110 H BLOOD UREA NITROGEN (test code = BUN) 4 MG/DL 7-18 L GLOMERULAR FILTRATION RATE (test code = GFR) >=60 max estimate estG FR >60 CREATININE (test code = CREAT) 0.5 MG/DL 0.6-1.0 L TOTAL PROTEIN (test code = PROT) 7.3 G/DL 6.4-8.2 N ALBUMIN (test code = ALB) 3.2 G/DL 3.4-5.0 L GLOBULIN (test code = GLOB) 4.1 GM/dL ALBUMIN/GLOBULIN RATIO (test code = A/G) 0.8 RATIO 1.2-2.2 L CALCIUM (test code = CA) 8.7 MG/DL 8.5-10.1 N BILIRUBIN TOTAL (test code = BILT) 0.30 MG/DL 0.2-1.2 N SGOT/AST (test code = AST) 31 Unit/L 15-37 N SGPT/ALT (test code = ALT) 67 Unit/L 12-78 N ALKALINE PHOSPHATASE TOTAL (test code = ALKP) 213 Unit/L 45-117 H CBC W/AUTO [id number] 06:13:00* Test Item Value Reference Range Interpretation Comments WHITE BLOOD CELL (test code = WBC) 8.2 K/mm3 3.5-11.0 N RED BLOOD CELL (test code = RBC) 3.66 M/mm3 4.70-6.10 L HEMOGLOBIN (test code = HGB) 10.1 G/DL 10.4-14.9 L HEMATOCRIT (test code = HCT) 30.2 % 31.5-44.1 L MEAN CELL VOLUME (test code = MCV) 82.5 Fl 84.5-98.6 L MEAN CELL HGB (test code = MCH) 27.6 pg 27.0-34.2 N MEAN CELL HGB CONCETRATION (test code = MCHC) 33.4 G/DL 31.5-34. 0 N RED CELL DISTRIBUTION WIDTH (test code = RDW) 14.8 SD 11.5-14. 5 H PLATELET COUNT (test code = PLT) 402.0 K/mm3 150-450 N MEAN PLATELET VOLUME (test code = MPV) 10.30 fL 7.0-10.5 N NEUTROPHIL % (test code = NT%) 42.9 % 40-76 LYMPHOCYTE % (test code = LY%) 39.1 % 20.5-51.1 N MONOCYTE % (test code = MO%) 13.7 % 1.7-9.3 H EOSINOPHIL % (test code = EO%) 4.1 % 0.0-6.0 N BASOPHIL % (test code = BA%) 0.2 % 0.0-2.0 N NEUTROPHIL # (test code = NT#) 3.52 K/mm3 1.8-7.6 N LYMPHOCYTE # (test code = LY#) 3.2 K/mm3 0.6-3.2 N MONOCYTE # (test code = MO#) 1.1 K/mm3 0.3-1.1 N EOSINOPHIL # (test code = EO#) 0.3 K/mm3 0.0-0.4 N BASOPHIL # (test code = BA#) 0.0 K/mm3 0.0-0.1 N MANUAL DIFF REQUIRED (test code = MDIFF) NO DIFF/SCN CRITERIA - MRI [id number] 12:43:00 FAX: Daniel Man MD [phone] Camps: PM St: ADM FAX: Angelica Woodson MD [phone] Name: BELIA VIGIL [facility] : 1980 Age/S: 38/F [address] [facility] Unit #: [id number] Loc: [address] [place] [address] Phys: Angelica Fernandez MD Acct: [id number] Dis Date: Status: ADM IN PHONE #: [phone] Exam Date: 06/22/2019 1234 FAX #: Reason: jaundice/lfts deranged. HX of pancreatectomy se EXAMS: CPT: [id number] MRI MRCP 55510 B2 MAGNETIC RESONANCE CHOLANGIOPANCREATOGRAPHY HISTORY: jaundice/lfts deranged. HX of pancreatectomy sec to car- TECHNIQUE: Multiplanar multisequence MR imaging was obtained of the abdomen utilizing MRCP protocol. 3-D images were created from the data set. COMPARISON: Abdomen/pelvis CT 05/22/2019 F INDINGS: The gallbladder is surgically absent. The common du ct is within normal limits measuring 4 mm. There is no intrahepati c biliary ductal dilatation. No abnormalities on limited views of the liver, spleen, pancreas, kidneys and adrenal glands. I MPRESSION: No evidence of biliary ductal dilatation. at 1243 Reported and signed by: Wyatt Sorto M.D. CC: Daniel Man MD; Angelica Fernandez MD Technologist: RT Donell(R )(MR) Transcribed Date/Time/By: 06/22/2019 (8741) :[email or web address] Orig Print D/T: S: 06/22/2019 (1257) PAGE 1 Signed Report CBC W/AUTO [id number] 07:16:00* Test Item Value Reference Range Interpretation Comments WHITE BLOOD CELL (test code = WBC) 11.1 K/mm3 3.5-11.0 H RED BLOOD CELL (test code = RBC) 3.38 M/mm3 4.70-6.10 L HEMOGLOBIN (test code = HGB) 9.5 G/DL 10.4-14.9 L HEMATOCRIT (test code = HCT) 28.2 % 31.5-44.1 L MEAN CELL VOLUME (test code = MCV) 83.4 Fl 84.5-98.6 L MEAN CELL HGB (test code = MCH) 28.1 pg 27.0-34.2 N MEAN CELL HGB CONCETRATION (test code = MCHC) 33.7 G/DL 31.5-34. 0 N RED CELL DISTRIBUTION WIDTH (test code = RDW) 14.9 SD 11.5-14. 5 H PLATELET COUNT (test code = PLT) 305.0 K/mm3 150-450 N MEAN PLATELET VOLUME (test code = MPV) 9.70 fL 7.0-10.5 N NEUTROPHIL % (test code = NT%) 57.3 % 40-76 N LYMPHOCYTE % (test code = LY%) 25.1 % 20.5-51.1 N MONOCYTE % (test code = MO%) 13.8 % 1.7-9.3 H EOSINOPHIL % (test code = EO%) 3.6 % 0.0-6.0 N BASOPHIL % (test code = BA%) 0.2 % 0.0-2.0 N NEUTROPHIL # (test code = NT#) 6.35 K/mm3 1.8-7.6 N LYMPHOCYTE # (test code = LY#) 2.8 K/mm3 0.6-3.2 N MONOCYTE # (test code = MO#) 1.5 K/mm3 0.3-1.1 H EOSINOPHIL # (test code = EO#) 0.4 K/mm3 0.0-0.4 N BASOPHIL # (test code = BA#) 0.0 K/mm3 0.0-0.1 N MANUAL DIFF REQUIRED (test code = MDIFF) NO DIFF/SCN CRITERIA BASIC METABOLIC [id number] 06:15:00* Test Item Value Reference Range Interpretation Comments SODIUM (test code = NA) 140 mmol/L 134-147 N POTASSIUM (test code = K) 3.1 mmol/L 3.4-5.0 L CHLORIDE (test code = CL) 109 mmol/L 100-108 H CARBON DIOXIDE (test code = CO2) 26 mmol/L 21-32 N ANION GAP (test code = GAP) 5.0 GAP calc 4.0-15.0 N GLUCOSE (test code = GLU) 120 MG/DL 70-110 H BLOOD UREA NITROGEN (test code = BUN) 2 MG/DL 7-18 L GLOMERULAR FILTRATION RATE (test code = GFR) >=60 max estimate estG FR >60 CREATININE (test code = CREAT) 0.5 MG/DL 0.6-1.0 L CALCIUM (test code = CA) 8.2 MG/DL 8.5-10.1 L HEPATIC FUNCTION [id number] 06:15:00* Test Item Value Reference Range Interpretation Comments TOTAL PROTEIN (test code = PROT) 6.2 G/DL 6.4-8.2 L ALBUMIN (test code = ALB) 2.8 G/DL 3.4-5.0 L BILIRUBIN TOTAL (test code = BILT) 0.20 MG/DL 0.2-1.2 N BILIRUBIN DIRECT (test code = BILD) 0.20 MG/DL 0.00-0.30 N BILIRUBIN INDIRECT (test code = BILIND) 0.00 MG/DL 0.2-1.2 L SGOT/AST (test code = AST) 35 Unit/L 15-37 N SGPT/ALT (test code = ALT) 76 Unit/L 12-78 N ALKALINE PHOSPHATASE TOTAL (test code = ALKP) 204 Unit/L 45-117 H CBC W/AUTO [id number] 06:13:00* Test Item Value Reference Range Interpretation Comments WHITE BLOOD CELL (test code = WBC) 11.1 K/mm3 3.5-11.0 H RED BLOOD CELL (test code = RBC) 3.38 M/mm3 4.70-6.10 L HEMOGLOBIN (test code = HGB) 9.5 G/DL 10.4-14.9 L HEMATOCRIT (test code = HCT) 28.2 % 31.5-44.1 L MEAN CELL VOLUME (test code = MCV) 83.4 Fl 84.5-98.6 L MEAN CELL HGB (test code = MCH) 28.1 pg 27.0-34.2 N MEAN CELL HGB CONCETRATION (test code = MCHC) 33.7 G/DL 31.5-34. 0 N RED CELL DISTRIBUTION WIDTH (test code = RDW) 14.9 SD 11.5-14. 5 H PLATELET COUNT (test code = PLT) 305.0 K/mm3 150-450 N MEAN PLATELET VOLUME (test code = MPV) 9.70 fL 7.0-10.5 N NEUTROPHIL % (test code = NT%) % 40-76 N LYMPHOCYTE % (test code = LY%) % 20.5-51.1 N MONOCYTE % (test code = MO%) % 1.7-9.3 H EOSINOPHIL % (test code = EO%) % 0.0-6.0 N BASOPHIL % (test code = BA%) % 0.0-2.0 N NEUTROPHIL # (test code = NT#) K/mm3 1.8-7.6 N LYMPHOCYTE # (test code = LY#) K/mm3 0.6-3.2 N MONOCYTE # (test code = MO#) K/mm3 0.3-1.1 H EOSINOPHIL # (test code = EO#) K/mm3 0.0-0.4 N BASOPHIL # (test code = BA#) K/mm3 0.0-0.1 N MANUAL DIFF REQUIRED (test code = MDIFF) DIFF/SCN CRITERIA ACUTE HEPATITIS [id number] 06:09:00* Test Item Value Reference Range Interpretation Comments AB HEPATITIS A IGM (test code = HAVMAB) Negative Negative AG HEPATITIS B SURFACE (test code = HBSAG) Negative Negative AB HEPATITIS B CORE IGM (test code = HBCMAB) Negative Negative AB HEPATITIS C (test code = HCVAB) <0.1 0.0-0.9 INFCE Result Units: s/co ratio Negative: < 0.8 Indeterminate: 0.8 - 0.9 Positive: > 0.9 The CDC recommends that a positive HCV antibody result be followed up with a HCV Nucleic Acid Amplification test ([id number]).Performed At: [facility] [id number] [place], [place] [id number] Paulie Farris MD Ph:[phone] CBC W/AUTO [id number] 01:29:00* Test Item Value Reference Range Interpretation Comments WHITE BLOOD CELL (test code = WBC) 20.0 K/mm3 3.5-11.0 H RED BLOOD CELL (test code = RBC) 3.20 M/mm3 4.70-6.10 L HEMOGLOBIN (test code = HGB) 8.9 G/DL 10.4-14.9 L HEMATOCRIT (test code = HCT) 27.2 % 31.5-44.1 L MEAN CELL VOLUME (test code = MCV) 85.0 Fl 84.5-98.6 N MEAN CELL HGB (test code = MCH) 27.8 pg 27.0-34.2 N MEAN CELL HGB CONCETRATION (test code = MCHC) 32.7 G/DL 31.5-34. 0 N RED CELL DISTRIBUTION WIDTH (test code = RDW) 14.8 SD 11.5-14. 5 H PLATELET COUNT (test code = PLT) 245.0 K/mm3 150-450 N MEAN PLATELET VOLUME (test code = MPV) 10.00 fL 7.0-10.5 N MANUAL DIFF REQUIRED (test code = MDIFF) YES DIFF/SCN CRITERIA WBC [id number] 01:29:00* Test Item Value Reference Range Interpretation Comments SEGMENTED NEUTROPHILS (test code = SEG) 65 % 40-75 N BAND NEUTROPHIL (test code = BAND) 11 % 0-8 H LYMPHOCYTE (test code = LYMPH) 16 % 18.7-40.6 L MONOCYTE (test code = MON) 7 % 3.8-11.4 N EOSINOPHIL (test code = EOS) 1 % 0.0-4.1 N POIKILOCYTOSIS (test code = POIK) TRACE ON SCAN NONE PLATELET ESTIMATE (test code = PLTEST) ADEQUATE THOUSAND ADEQUATE PLATELET MORPHOLOGY (test code = PLTMORPH) NORMAL CBC W/AUTO [id number] 01:28:00* Test Item Value Reference Range Interpretation Comments WHITE BLOOD CELL (test code = WBC) 20.0 K/mm3 3.5-11.0 H RED BLOOD CELL (test code = RBC) 3.20 M/mm3 4.70-6.10 L HEMOGLOBIN (test code = HGB) 8.9 G/DL 10.4-14.9 L HEMATOCRIT (test code = HCT) 27.2 % 31.5-44.1 L MEAN CELL VOLUME (test code = MCV) 85.0 Fl 84.5-98.6 N MEAN CELL HGB (test code = MCH) 27.8 pg 27.0-34.2 N MEAN CELL HGB CONCETRATION (test code = MCHC) 32.7 G/DL 31.5-34. 0 N RED CELL DISTRIBUTION WIDTH (test code = RDW) 14.8 SD 11.5-14. 5 H PLATELET COUNT (test code = PLT) 245.0 K/mm3 150-450 N MEAN PLATELET VOLUME (test code = MPV) 10.00 fL 7.0-10.5 N MANUAL DIFF REQUIRED (test code = MDIFF) YES DIFF/SCN CRITERIA WBC [id number] 01:28:00* Test Item Value Reference Range Interpretation Comments SEGMENTED NEUTROPHILS (test code = SEG) % 40-75 LYMPHOCYTE (test code = LYMPH) % 18.7-40.6 CBC W/AUTO [id number] 01:28:00* Test Item Value Reference Range Interpretation Comments WHITE BLOOD CELL (test code = WBC) 20.0 K/mm3 3.5-11.0 H RED BLOOD CELL (test code = RBC) 3.20 M/mm3 4.70-6.10 L HEMOGLOBIN (test code = HGB) 8.9 G/DL 10.4-14.9 L HEMATOCRIT (test code = HCT) 27.2 % 31.5-44.1 L MEAN CELL VOLUME (test code = MCV) 85.0 Fl 84.5-98.6 N MEAN CELL HGB (test code = MCH) 27.8 pg 27.0-34.2 N MEAN CELL HGB CONCETRATION (test code = MCHC) 32.7 G/DL 31.5-34. 0 N RED CELL DISTRIBUTION WIDTH (test code = RDW) 14.8 SD 11.5-14. 5 H PLATELET COUNT (test code = PLT) 245.0 K/mm3 150-450 N MEAN PLATELET VOLUME (test code = MPV) 10.00 fL 7.0-10.5 N MANUAL DIFF REQUIRED (test code = MDIFF) YES DIFF/SCN CRITERIA WBC [id number] 01:28:00* Test Item Value Reference Range Interpretation Comments SEGMENTED NEUTROPHILS (test code = SEG) % 40-75 LYMPHOCYTE (test code = LYMPH) % 18.7-40.6 BASIC METABOLIC [id number] 01:21:00* Test Item Value Reference Range Interpretation Comments SODIUM (test code = NA) 144 mmol/L 134-147 N POTASSIUM (test code = K) 3.6 mmol/L 3.4-5.0 N CHLORIDE (test code = CL) 115 mmol/L 100-108 H CARBON DIOXIDE (test code = CO2) 20 mmol/L 21-32 L ANION GAP (test code = GAP) 9.0 GAP calc 4.0-15.0 N GLUCOSE (test code = GLU) 153 MG/DL 70-110 H BLOOD UREA NITROGEN (test code = BUN) 6 MG/DL 7-18 L GLOMERULAR FILTRATION RATE (test code = GFR) >=60 max estimate estG FR >60 CREATININE (test code = CREAT) 0.6 MG/DL 0.6-1.0 N CALCIUM (test code = CA) 6.7 MG/DL 8.5-10.1 L CBC W/AUTO [id number] 01:07:00* Test Item Value Reference Range Interpretation Comments WHITE BLOOD CELL (test code = WBC) 20.0 K/mm3 3.5-11.0 H RED BLOOD CELL (test code = RBC) 3.20 M/mm3 4.70-6.10 L HEMOGLOBIN (test code = HGB) 8.9 G/DL 10.4-14.9 L HEMATOCRIT (test code = HCT) 27.2 % 31.5-44.1 L MEAN CELL VOLUME (test code = MCV) 85.0 Fl 84.5-98.6 N MEAN CELL HGB (test code = MCH) 27.8 pg 27.0-34.2 N MEAN CELL HGB CONCETRATION (test code = MCHC) 32.7 G/DL 31.5-34. 0 N RED CELL DISTRIBUTION WIDTH (test code = RDW) 14.8 SD 11.5-14. 5 H PLATELET COUNT (test code = PLT) 245.0 K/mm3 150-450 N MEAN PLATELET VOLUME (test code = MPV) 10.00 fL 7.0-10.5 N NEUTROPHIL % (test code = NT%) % 40-76 LYMPHOCYTE % (test code = LY%) % 20.5-51.1 L MONOCYTE % (test code = MO%) % 1.7-9.3 H EOSINOPHIL % (test code = EO%) % 0.0-6.0 N BASOPHIL % (test code = BA%) % 0.0-2.0 N NEUTROPHIL # (test code = NT#) K/mm3 1.8-7.6 H LYMPHOCYTE # (test code = LY#) K/mm3 0.6-3.2 H MONOCYTE # (test code = MO#) K/mm3 0.3-1.1 H EOSINOPHIL # (test code = EO#) K/mm3 0.0-0.4 N BASOPHIL # (test code = BA#) K/mm3 0.0-0.1 N MANUAL DIFF REQUIRED (test code = MDIFF) DIFF/SCN CRITERIA LACTIC ACID [id number] 01:01:00* Test Item Value Reference Range Interpretation Comments LACTIC ACID POC (test code = LACTP) 1.23 MMOL/L 0.90-1.70 N - US RETROPERITONEAL [id number] 21:28:00 Name: BELIA VIGIL [facility] : 1980 Age/S: 38 / F [id number] Unit #: [id number] Loc: [place] [address] Phys: Daniel Man MD Acct: [id number] Dis Date: Status: ADM IN PHONE #: [phone] Exam Date: 06/20/2019 3911 FAX #: Reason: flank pain EXAMS: CPT: [id number] RETROPERITONEAL COM [id number] LOCATION: Q15 HISTORY: 38-year-old female who presents with flank pain. COMMENT: Sonographic imaging of this patient's retroperitoneum was performed. A CT study of the abdomen and pelvis obtained May 22, 2019 is available for comparison. The right kidney measures 10.1 x 4.8 x 5.7 cm with a 12 mm cortical thickness. No cysts or masses are seen and there is no evidence of calcifications or hydronephrosis. The left kidney measures 10.1 x 5.4 x 5.1 cm with a 10 mm cortical thickness. No cysts or masses are seen and there is no evidence of calcifications or hydronephrosis. The urinary bladder is unremarkable. Both urine jets were observed on the color flow study. IMPRESSION: Unremarkable retroperitoneal ultrasound examination. at 2127 Reported and signed by: Armani Liriano M.D. CC: Diane Ugarte MD; Daniel Man MD Technologist: Marlene Tee Trnmob Date/Time: 06/20/2019 (2127) [id number] PAGE 1 Signed Report Name: BELIA VIGIL : 1980 Age/S: 38 / F [id number] Unit #: [id number] Loc: [place] [address] Phys: Daniel Alatorre MD Acct: [id number] Dis Date: Status: ADM IN [facility] NE #: [phone] Exam Date: 06/20/2019 1853 FAX #: Reason: flank pain EXAM S: CPT: [id number] US RET Joberator [id number] <Continued> Orig Print D/T: S: 06/20/2019 (2130) Probe: PAGE 2 Signed Report UA RFLX MICR CULT IF [id number] 17:47:00* Test Item Value Reference Range Interpretation Comments UA COLOR (test code = COLU) YELLOW discript YEL/STRAW UA APPEARANCE (test code = APPU) CLEAR discript CLEAR UA GLUCOSE DIPSTICK (test code = DGLUU) NEGATIVE mg/dL NEG UA BILIRUBIN DIPSTICK (test code = BILU) NEGATIVE mg/dL NEG UA KETONE DIPSTICK (test code = KETU) NEGATIVE mg/dL NEG UA SPECIFIC GRAVITY (test code = SGU) <=1.005 SG 1.005-1.030 UA BLOOD DIPSTICK (test code = DRAKE) TRACE mg/DL NEG A UA PH DIPSTICK (test code = PARVIZ) 6.5 pH UNITS 5.0-7.0 UA PROTEIN DIPSTICK (test code = PROU) NEGATIVE mg/dL NEG UA UROBILINIOGEN DIPSTICK (test code = URO) 0.2 mg/dL <2.0 UA NITRITE DIPSTICK (test code = JUVENAL) NEGATIVE SCREEN NEG UA LEUKOCYTE ESTERASE DIPSTICK (test code = LEUU) NEGATIVE Leuk/mcL NEGATIVE UA WBC (test code = WBCU) 0-1 #WBC/HPF 0-3 UA RBC (test code = RBCU) 0-1 #RBC/HPF 0-3 UA BACTERIA (test code = BACU) NONE SEEN /HPF NONE-TRACE UA SQUAMOUS CELLS (test code = SQU) 1+ /HPF NONE A UA CULTURE NEEDED? (test code = UACULT) NO, WBC<10 Criteria Culture CHK SOURCE OF URINE: CLEAN CATCHIndication for culture: Suprapubic PainCBC W/AUTO [id number] 17:19:00* Test Item Value Reference Range Interpretation Comments WHITE BLOOD CELL (test code = WBC) 18.8 K/mm3 3.5-11.0 H RED BLOOD CELL (test code = RBC) 3.53 M/mm3 4.70-6.10 L HEMOGLOBIN (test code = HGB) 10.0 G/DL 10.4-14.9 L HEMATOCRIT (test code = HCT) 29.6 % 31.5-44.1 L MEAN CELL VOLUME (test code = MCV) 83.9 Fl 84.5-98.6 L MEAN CELL HGB (test code = MCH) 28.3 pg 27.0-34.2 N MEAN CELL HGB CONCETRATION (test code = MCHC) 33.8 G/DL 31.5-34. 0 N RED CELL DISTRIBUTION WIDTH (test code = RDW) 14.4 SD 11.5-14. 5 N PLATELET COUNT (test code = PLT) 276.0 K/mm3 150-450 N MEAN PLATELET VOLUME (test code = MPV) 10.40 fL 7.0-10.5 N MANUAL DIFF REQUIRED (test code = MDIFF) YES DIFF/SCN CRITERIA WBC [id number] 17:19:00* Test Item Value Reference Range Interpretation Comments SEGMENTED NEUTROPHILS (test code = SEG) 81 % 40-75 H BAND NEUTROPHIL (test code = BAND) 7 % 0-8 N LYMPHOCYTE (test code = LYMPH) 10 % 18.7-40.6 L MONOCYTE (test code = MON) 2 % 3.8-11.4 L POIKILOCYTOSIS (test code = POIK) TRACE ON SCAN NONE PLATELET ESTIMATE (test code = PLTEST) ADEQUATE THOUSAND ADEQUATE CBC W/AUTO [id number] 17:18:00* Test Item Value Reference Range Interpretation Comments WHITE BLOOD CELL (test code = WBC) 18.8 K/mm3 3.5-11.0 H RED BLOOD CELL (test code = RBC) 3.53 M/mm3 4.70-6.10 L HEMOGLOBIN (test code = HGB) 10.0 G/DL 10.4-14.9 L HEMATOCRIT (test code = HCT) 29.6 % 31.5-44.1 L MEAN CELL VOLUME (test code = MCV) 83.9 Fl 84.5-98.6 L MEAN CELL HGB (test code = MCH) 28.3 pg 27.0-34.2 N MEAN CELL HGB CONCETRATION (test code = MCHC) 33.8 G/DL 31.5-34. 0 N RED CELL DISTRIBUTION WIDTH (test code = RDW) 14.4 SD 11.5-14. 5 N PLATELET COUNT (test code = PLT) 276.0 K/mm3 150-450 N MEAN PLATELET VOLUME (test code = MPV) 10.40 fL 7.0-10.5 N MANUAL DIFF REQUIRED (test code = MDIFF) YES DIFF/SCN CRITERIA WBC [id number] 17:18:00* Test Item Value Reference Range Interpretation Comments SEGMENTED NEUTROPHILS (test code = SEG) % 40-75 LYMPHOCYTE (test code = LYMPH) % 18.7-40.6 CBC W/AUTO [id number] 17:18:00* Test Item Value Reference Range Interpretation Comments WHITE BLOOD CELL (test code = WBC) 18.8 K/mm3 3.5-11.0 H RED BLOOD CELL (test code = RBC) 3.53 M/mm3 4.70-6.10 L HEMOGLOBIN (test code = HGB) 10.0 G/DL 10.4-14.9 L HEMATOCRIT (test code = HCT) 29.6 % 31.5-44.1 L MEAN CELL VOLUME (test code = MCV) 83.9 Fl 84.5-98.6 L MEAN CELL HGB (test code = MCH) 28.3 pg 27.0-34.2 N MEAN CELL HGB CONCETRATION (test code = MCHC) 33.8 G/DL 31.5-34. 0 N RED CELL DISTRIBUTION WIDTH (test code = RDW) 14.4 SD 11.5-14. 5 N PLATELET COUNT (test code = PLT) 276.0 K/mm3 150-450 N MEAN PLATELET VOLUME (test code = MPV) 10.40 fL 7.0-10.5 N MANUAL DIFF REQUIRED (test code = MDIFF) YES DIFF/SCN CRITERIA WBC [id number] 17:18:00* Test Item Value Reference Range Interpretation Comments SEGMENTED NEUTROPHILS (test code = SEG) % 40-75 LYMPHOCYTE (test code = LYMPH) % 18.7-40.6 UA RFLX MICR CULT IF [id number] 17:09:00* Test Item Value Reference Range Interpretation Comments UA COLOR (test code = COLU) YELLOW discript YEL/STRAW UA APPEARANCE (test code = APPU) CLEAR discript CLEAR UA GLUCOSE DIPSTICK (test code = DGLUU) NEGATIVE mg/dL NEG UA BILIRUBIN DIPSTICK (test code = BILU) NEGATIVE mg/dL NEG UA KETONE DIPSTICK (test code = KETU) NEGATIVE mg/dL NEG UA SPECIFIC GRAVITY (test code = SGU) <=1.005 SG 1.005-1.030 UA BLOOD DIPSTICK (test code = DRAKE) TRACE mg/DL NEG A UA PH DIPSTICK (test code = PARVIZ) 6.5 pH UNITS 5.0-7.0 UA PROTEIN DIPSTICK (test code = PROU) NEGATIVE mg/dL NEG UA UROBILINIOGEN DIPSTICK (test code = URO) 0.2 mg/dL <2.0 UA NITRITE DIPSTICK (test code = JUVENAL) NEGATIVE SCREEN NEG UA LEUKOCYTE ESTERASE DIPSTICK (test code = LEUU) NEGATIVE Leuk/mcL NEGATIVE UA CULTURE NEEDED? (test code = UACULT) Criteria Culture CHK SOURCE OF URINE: CLEAN CATCHIndication for culture: Suprapubic Pain COMPREHENSIVE METABOLIC [id number] 16:44:00* Test Item Value Reference Range Interpretation Comments SODIUM (test code = NA) 135 mmol/L 134-147 N POTASSIUM (test code = K) 2.9 mmol/L 3.4-5.0 LL CHLORIDE (test code = CL) 103 mmol/L 100-108 N CARBON DIOXIDE (test code = CO2) 24 mmol/L 21-32 N ANION GAP (test code = GAP) 8.0 GAP calc 4.0-15.0 N GLUCOSE (test code = GLU) 159 MG/DL 70-110 H BLOOD UREA NITROGEN (test code = BUN) 10 MG/DL 7-18 N GLOMERULAR FILTRATION RATE (test code = GFR) >=60 max estimate estG FR >60 CREATININE (test code = CREAT) 0.8 MG/DL 0.6-1.0 N TOTAL PROTEIN (test code = PROT) 7.2 G/DL 6.4-8.2 N ALBUMIN (test code = ALB) 3.1 G/DL 3.4-5.0 L GLOBULIN (test code = GLOB) 4.1 GM/dL ALBUMIN/GLOBULIN RATIO (test code = A/G) 0.8 RATIO 1.2-2.2 L CALCIUM (test code = CA) 8.1 MG/DL 8.5-10.1 L BILIRUBIN TOTAL (test code = BILT) 0.40 MG/DL 0.2-1.2 N SGOT/AST (test code = AST) 63 Unit/L 15-37 H SGPT/ALT (test code = ALT) 126 Unit/L 12-78 H ALKALINE PHOSPHATASE TOTAL (test code = ALKP) 268 Unit/L 45-117 H TROPONIN I [id number] 16:38:00* Test Item Value Reference Range Interpretation Comments TROPONIN I RAPID (test code = TROPIRAP) 0.01 ng/mL 0.00-0.08 N - The use of serial sampling and testing protocol is a recommended practice- An elevated troponin level alone is often not sufficient for diagnosis of myocardial infarction. LACTIC ACID [id number] 16:30:00* Test Item Value Reference Range Interpretation Comments LACTIC ACID POC (test code = LACTP) 2.21 MMOL/L 0.90-1.70 H CBC W/AUTO [id number] 16:25:00* Test Item Value Reference Range Interpretation Comments WHITE BLOOD CELL (test code = WBC) 18.8 K/mm3 3.5-11.0 H RED BLOOD CELL (test code = RBC) 3.53 M/mm3 4.70-6.10 L HEMOGLOBIN (test code = HGB) 10.0 G/DL 10.4-14.9 L HEMATOCRIT (test code = HCT) 29.6 % 31.5-44.1 L MEAN CELL VOLUME (test code = MCV) 83.9 Fl 84.5-98.6 L MEAN CELL HGB (test code = MCH) 28.3 pg 27.0-34.2 N MEAN CELL HGB CONCETRATION (test code = MCHC) 33.8 G/DL 31.5-34. 0 N RED CELL DISTRIBUTION WIDTH (test code = RDW) 14.4 SD 11.5-14. 5 N PLATELET COUNT (test code = PLT) 276.0 K/mm3 150-450 N MEAN PLATELET VOLUME (test code = MPV) 10.40 fL 7.0-10.5 N NEUTROPHIL % (test code = NT%) % 40-76 H LYMPHOCYTE % (test code = LY%) % 20.5-51.1 L MONOCYTE % (test code = MO%) % 1.7-9.3 N EOSINOPHIL % (test code = EO%) % 0.0-6.0 N BASOPHIL % (test code = BA%) % 0.0-2.0 N NEUTROPHIL # (test code = NT#) K/mm3 1.8-7.6 H LYMPHOCYTE # (test code = LY#) K/mm3 0.6-3.2 N MONOCYTE # (test code = MO#) K/mm3 0.3-1.1 H EOSINOPHIL # (test code = EO#) K/mm3 0.0-0.4 N BASOPHIL # (test code = BA#) K/mm3 0.0-0.1 N MANUAL DIFF REQUIRED (test code = MDIFF) DIFF/SCN CRITERIA - XR CHEST 2 [id number] 16:05:00 Name: BELIA VIGIL [facility] : 1980 Age/S: 38 / F [address] Unit #: [id number] Loc: [place] [address] Phys: Diane Ugarte MD Acct: [id number] Dis Date: Status: REG ER PHONE #: [phone] Exam Date: 06/20/2019 155 FAX #: Reason: Suspected Sepsis EXAMS: CPT: [id number] XR CHEST 2 V 91597 Fluoro Time: DAP (Gy m2): Air Kerma (mGy): LOCATION: T18 EXAM: CHEST 2 VIEWS INDICATION: , Suspected Sepsis COMPARISON: Chest x-ray March 08, 2016. TECHNIQUE: PA and lateral chest radiographs. FINDINGS: Left portacatheter is unchanged. Lungs are clear bilaterally without effusion. Heart and mediastinum are normal in size and contour. Bones and peripheral soft tissues are unremarkable. IMPRESSION: Lungs are clear. No acute abnormality. at 1605 Reported and signed by: Harman Townsend M.D. CC: Diane Ugarte MD; Patricia Manning NP PAGE 1 Signed Report Name: BELIA VIGIL [facility] : 1980 Age/S: 38 / F [address] Unit #: [id number] Loc: [place] [address] Phys: Diane Ugarte MD Acct: [id number] Dis Date: Status: REG ER PHONE #: [phone] Exam Date: 06/20/2019 1021 FAX #: Reason: Suspected Sepsis EXAMS: CPT: [id number] XR CHEST 2 V 48021 Fluoro Time: DAP (Gy m2): Air Kerma (mGy): <Continued> Technologist: Dasha Chua RT(R)(CT) Trnscb Date/Time: 06/20/2019 (7314) [email or web address] Orig Print D/T: S: 06/20/2019 (0919) PAGE 2 Signed Report PROTHROMBIN [id number] 14:09:00 * Test Item Value Reference Range Interpretation Comments PT PATIENT (test code = PTP) 11.2 SECONDS 9.3-12.9 N INTERNATIONAL NORMAL RATIO (test code = INR) 0.97 INR Unit 0.8-1.2 N THROMBOPLASTIN TIME [id number] 14:09:00* Test Item Value Reference Range Interpretation Comments THROMBOPLASTIN TIME PARTIAL (test code = PTT) 30.5 SECONDS 26-35 N CBC W/AUTO [id number] 14:05:00* Test Item Value Reference Range Interpretation Comments WHITE BLOOD CELL (test code = WBC) 6.3 K/mm3 3.5-11.0 N RED BLOOD CELL (test code = RBC) 3.85 M/mm3 4.70-6.10 L HEMOGLOBIN (test code = HGB) 10.9 G/DL 10.4-14.9 N HEMATOCRIT (test code = HCT) 32.4 % 31.5-44.1 N MEAN CELL VOLUME (test code = MCV) 84.2 Fl 84.5-98.6 L MEAN CELL HGB (test code = MCH) 28.3 pg 27.0-34.2 N MEAN CELL HGB CONCETRATION (test code = MCHC) 33.6 G/DL 31.5-34. 0 N RED CELL DISTRIBUTION WIDTH (test code = RDW) 14.6 SD 11.5-14. 5 H PLATELET COUNT (test code = PLT) 374.0 K/mm3 150-450 N MEAN PLATELET VOLUME (test code = MPV) 9.60 fL 7.0-10.5 N NEUTROPHIL % (test code = NT%) 52.8 % 40-76 N LYMPHOCYTE % (test code = LY%) 30.4 % 20.5-51.1 N MONOCYTE % (test code = MO%) 12.3 % 1.7-9.3 H EOSINOPHIL % (test code = EO%) 4.3 % 0.0-6.0 N BASOPHIL % (test code = BA%) 0.2 % 0.0-2.0 N NEUTROPHIL # (test code = NT#) 3.34 K/mm3 1.8-7.6 N LYMPHOCYTE # (test code = LY#) 1.9 K/mm3 0.6-3.2 N MONOCYTE # (test code = MO#) 0.8 K/mm3 0.3-1.1 N EOSINOPHIL # (test code = EO#) 0.3 K/mm3 0.0-0.4 N BASOPHIL # (test code = BA#) 0.0 K/mm3 0.0-0.1 N MANUAL DIFF REQUIRED (test code = MDIFF) NO DIFF/SCN CRITERIA COMPREHENSIVE METABOLIC [id number] 14:04:00* Test Item Value Reference Range Interpretation Comments SODIUM (test code = NA) 139 mmol/L 134-147 N POTASSIUM (test code = K) 3.3 mmol/L 3.4-5.0 L CHLORIDE (test code = CL) 107 mmol/L 100-108 N CARBON DIOXIDE (test code = CO2) 26 mmol/L 21-32 N ANION GAP (test code = GAP) 6.0 GAP calc 4.0-15.0 N GLUCOSE (test code = GLU) 126 MG/DL 70-110 H BLOOD UREA NITROGEN (test code = BUN) 10 MG/DL 7-18 N GLOMERULAR FILTRATION RATE (test code = GFR) >=60 max estimate estG FR >60 CREATININE (test code = CREAT) 0.6 MG/DL 0.6-1.0 N TOTAL PROTEIN (test code = PROT) 7.4 G/DL 6.4-8.2 N ALBUMIN (test code = ALB) 3.4 G/DL 3.4-5.0 N GLOBULIN (test code = GLOB) 4.0 GM/dL ALBUMIN/GLOBULIN RATIO (test code = A/G) 0.9 RATIO 1.2-2.2 L CALCIUM (test code = CA) 8.7 MG/DL 8.5-10.1 N BILIRUBIN TOTAL (test code = BILT) 0.20 MG/DL 0.2-1.2 N SGOT/AST (test code = AST) 152 Unit/L 15-37 H SGPT/ALT (test code = ALT) 198 Unit/L 12-78 H ALKALINE PHOSPHATASE TOTAL (test code = ALKP) 286 Unit/L 45-117 H UR HCG [id number] 13:00:00* Test Item Value Reference Range Interpretation Comments UR HCG QUAL (test code = HCGQLU) NEGATIVE NEGATIVE URINALYSIS [id number] 12:56:00* Test Item Value Reference Range Interpretation Comments UA GLUCOSE DIPSTICK (test code = DGLUU) NEGATIVE mg/dL NEG UA BILIRUBIN DIPSTICK (test code = BILU) NEGATIVE mg/dL NEG UA KETONE DIPSTICK (test code = KETU) NEGATIVE mg/dL NEG UA SPECIFIC GRAVITY (test code = SGU) 1.020 SG 1.005-1.030 UA BLOOD DIPSTICK (test code = DRAKE) 1+ mg/DL NEG A UA PH DIPSTICK (test code = PARVIZ) 6.5 pH UNITS 5.0-7.0 UA PROTEIN DIPSTICK (test code = PROU) NEGATIVE mg/dL NEG UA UROBILINIOGEN DIPSTICK (test code = URO) 0.2 mg/dL <2.0 UA NITRITE DIPSTICK (test code = JUVENAL) POSITIVE SCREEN NEG A UA LEUKOCYTE ESTERASE DIPSTICK (test code = LEUU) NEGATIVE Leuk/mcL NEGATIVE Urine Specimen Type: Clean CatchStool culture + Shiga toxin+Salmonella+[id number] 10:23:00* Test Item Value Reference Range Interpretation Comments Result (test code = 6463-4) No Salmonella, Shigella or Campyloba cter isolated [facility] CULTURE + SHIGA [id number] 10:23:00* Test Item Value Reference Range Interpretation Comments CULTURE (BEAKER) (test code = 1095) No Salmonella, Keila gella or Campylobacter isolated STOOL PATH [id number] 15:21:00* Test Item Value Reference Range Interpretation Comments Pathogen exam charged (test code = 2381) [facility] [id number] 15:21:00* Test Item Value Reference Range Interpretation Comments PATHOGEN EXAM CHARGED (BEAKER) (test code = 2381) Done Shiga Toxin [id number] 14:57:00* Test Item Value Reference Range Interpretation Comments Shiga toxin 1 (test code = 39342-1) Not detected Not detected Shiga toxin 2 (test code = 54945-4) Not detected Not detected Lab Interpretation (test code = 90573-4) [facility] [id number] 14:57:00* Test Item Value Reference Range Interpretation Comments SHIGA TOXIN 1 (BEAKER) (test code = 2177) Not detected Not detected SHIGA TOXIN 2 (BEAKER) (test code = 2179) Not detected Not detected Clostridium difficile [facility] [id number] 11:55:00* Test Item Value Reference Range Interpretation Comments C. Difficle Toxin (test code = 8650798986) Negative Negative C. Difficile [facility] Antigen (test code = 6533096348) Positive Nega tive A C. difficile present but toxin not detected. Indicates colonization with non- toxigenic strain or level of toxin below detectable levels. No need for enteric isolation. Treatment is rarely needed (only when strong clinical suspicion for Clostridium difficile infection) NAWAF (test code = NAWAF) Testing performed by [employer] Cassette Assay. For GDH, published sensitivity of the assay is 98.7% compared to cytotoxicity testing. For Toxin AB, published sensitivity is 87.8% and specificity 99.4% compared to cytotoxicity testing.Verification of kit performance was done by the [facility] prior to clinical use. Lab Interpretation (test code = 82569-7) [facility] [id number] 11:55:00* Test Item Value Reference Range Interpretation Comments CDT TOXIN (test code = 8394590667) Negative Negative CDT [facility] ANTIGEN (test code = 2004495316) Positive Negative A C. difficile present but toxin not detected. Indicates colonization with non-toxigenic strain or level of toxin below detectable levels. No need for enteric isolation. Treatment is rarely needed (only when strong clinical suspicion for Clostridium difficile infection) Testing performed by [employer] Rapid Cassette Assay. For GDH, published sensitivity of the assay is 98.7% compared to cytotoxicity testing. For Toxin AB, published sensitivity is 87.8% and specificity 99.4% compared to cytotoxicity testing.Ve rification of kit performance was done by the [facility] prior to cl inical use.CT, [id number] 06:29:00Reason for exam:->ABDOMINAL PAINReason for exam:->HEMATOCHEZIAIs the patient ?->NohysterectomyWhat is the patient's sedation requirement?->No SedationFINAL REPORT CLINICAL HISTORY: Abdominal pain, hematochezia FINDINGS: [...] of obstructive uropathy. Stomach and Duodenum: No sign ificant findings. Pancreas: Previous subtotal pancreatectomy. No retroperitoneal fluid collection. Bowel: No bowel obstruction or pneumatosis intestinalis. No f ocal mural abnormality in the colon. Appendix: Normal. Bladder: No significan t findings. Major vascular structures: No significant findings. Reproductive org ans: Previous hysterectomy. Other: No free air, fluid or adenopathy Skeleton: No acute bony abnormality. IMPRESSION: No CT abnormality to explain the patient's symptoms. Hepatic steatosis. Bilateral nonobstructing kidney stones. No ureteral stone or noncontrast CT evidence of obstructive uropathy. Extensive postsurgical changes, as described. Signed: Nelida Clark Verified Date/Time: 01/2019 06:29:54 Electronically signed by: NELIDA CLARK M.D. on 019 06:[address] abdomen pelvis without [id number] 06:29:00Interface, External Ris In - 06/15/2019 6:32 AM CSTFINAL REPORT CLINICAL HISTORY: Abdominal pain, hematochezia FINDINGS: Multiple axial images of the abdomen and pelvis were performed without intravenous contrast. Oral contrast was not given. This exam was performed according to our departmental dose-optimization program, which includes automated exposure control, adjustment of the mA and/or kV according to patient size and/or use of the iterative rec onstruction technique. Comparison: 10/22/2018 Lower chest: Clear lungs. No pleura l effusion or pneumothorax. Visualized cardiac contours normal. Partially visual ized bilateral breast prostheses. Liver: Hepatic steatosis Gallbladder and bilia ry tree: Previous cholecystectomy Spleen: Previous splenectomy Adrenal Glands: N o significant findings. Kidneys and ureters: Several bilateral nonobstructing ki dney stones measuring 3 to 4 mm. No ureteral stone or noncontrast CT evidence of obstructive uropathy. Stomach and Duodenum: No significant findings. Pancreas: Previous subtotal pancreatectomy. No retroperitoneal fluid collection. Bowel: No bowel obstruction or pneumatosis intestinalis. No focal mural abnormality in the colon. Appendix: Normal. Bladder: No significant findings. Major vascular s tructures: No significant findings. Reproductive organs: Previous hysterectomy. Other: No free air, fluid or adenopathy Skeleton: No acute bony abnormality. IMP RESSION: No CT abnormality to explain the patient's symptoms. Hepatic steatosis. Bilateral nonobstructing kidney stones. No ureteral stone or noncontrast CT natalee dence of obstructive uropathy. Extensive postsurgical changes, as described. Sig forest: Clark, Nelida MDReport Verified Date/Time: 06/15/2019 06:29:54 Elect ronically signed by: NELIDA CLARK M.D. on 06/15/2019 06:29 AM [facility] 03:04:00* Test Item Value Reference Range Interpretation Comments Magnesium (test code = 05609-0) 2.0 mg/dL 1.6-2.6 Lab Interpretation (test code = 25422-8) Normal [facility]2019-[facility] 03:04:00* Test Item Value Reference Range Interpretation Comments Phosphorus (test code = 2777-1) 2.8 mg/dL 2.3-4.7 Lab Interpretation (test code = 31863-7) Normal [facility]2019-12-07 03:04:00* Test Item Value Reference Range Interpretation Comments MAGNESIUM (BEAKER) (test code = 627) 2.0 mg/dL 1.6-2.6 [id number] 03:04:00* Test Item Value Reference Range Interpretation Comments PHOSPHORUS (BEAKER) (test code = 604) 2.8 mg/dL 2.3-4.7 Basic Metabolic [id number] 00:32:00* Test Item Value Reference Range Interpretation Comments Sodium (test code = 2951-2) 139 meq/L 136-145 Potassium (test code = 2823-3) 3.6 meq/L 3.5-5.1 Chloride (test code = 2075-0) 109 meq/L 98-107 H CO2 (test code = 8-9) 23 meq/L 22-29 BUN (test code = 3094-0) 13 mg/dL 7-21 Creatinine (test code = 2160-0) 0.83 mg/dL 0.57-1.25 Glucose (test code = 2345-7) 109 mg/dL 70-105 H Calcium (test code = 69834-5) 9.4 mg/dL 8.4-10.2 EGFR (test code = 06718-5) 77 mL/min/1.73 sq m ESTIMATED GFR IS NOT ACCURATE CREATININE CLEARANCE IN PREDICTING GLOMERULAR FILTRATION RATE. ESTIMATED GFR IS NOT APPLICABLE FOR DIALYSIS PATIENTS. Lab Interpretation (test code = 12945-2) Abnormal [facility] HospitalHepatic function [id number] 00:32:00* Test Item Value Reference Range Interpretation Comments Protein, Total (test code = 2885-2) 8.1 6.0- 8.3 gm/dL Albumin (test code = 08744-1) 4.5 g/dL 3.5-5 Total Bilirubin (test code = 1975-2) 0.4 mg/dL 0.2-1.2 Bilirubin, Direct (test code = 1967-7) 0.2 mg/dL 0.1-0.5 Alkaline Phosphatase (test code = 6768-6) 120 U/L 40-150 AST (test code = 1920-8) 37 U/L 5-34 H ALT (test code = 1742-6) 39 U/L 6-55 Lab Interpretation (test code = 30474-9) Abnormal [facility] HospitalAmylase2019-12-07 00:32:00* Test Item Value Reference Range Interpretation Comments Amylase (test code = 1798-8) 40 U/L 25-125 Lab Interpretation (test code = 20864-9) Normal [facility] Hospital[facility]ase2019-12-07 00:32:00* Test Item Value Reference Range Interpretation Comments Lipase (test code = 3040-3) 4 U/L 8-78 L Lab Interpretation (test code = 54466-8) Abnormal [facility] HospitalLIPASE2019-12-07 00:32:00* Test Item Value Reference Range Interpretation Comments LIPASE (BEAKER) (test code = 749) 4 U/L 8-78 L [id number] 00:32:00* Test Item Value Reference Range Interpretation Comments AMYLASE (BEAKER) (test code = 349) 40 U/L 25-125 BASIC METABOLIC [id number] 00:32:00* Test Item Value Reference Range Interpretation Comments SODIUM (BEAKER) (test code = 381) 139 meq/L 136-145 POTASSIUM (BEAKER) (test code = 379) 3.6 meq/L 3.5-5.1 CHLORIDE (BEAKER) (test code = 382) 109 meq/L 98-107 H CO2 (BEAKER) (test code = 355) 23 meq/L 22-29 BLOOD UREA NITROGEN (BEAKER) (test code = 354) 13 mg/dL 7-21 CREATININE (BEAKER) (test code = 358) 0.83 mg/dL 0.57-1.25 GLUCOSE RANDOM (BEAKER) (test code = 652) 109 mg/dL 70-105 H CALCIUM (BEAKER) (test code = 697) 9.4 mg/dL 8.4-10.2 EGFR (BEAKER) (test code = 1092) 77 mL/min/1.73 sq m ESTIMATED GFR IS NOT ACCURATE CREATININE CLEARANCE IN PREDICTING GLOMERULAR FILTRATION RATE. ESTIMATED GFR IS NOT APPLICABLE FOR DIALYSIS PATIENTS. HEPATIC FUNCTION [id number] 00:32:00* Test Item Value Reference Range Interpretation Comments TOTAL PROTEIN (BEAKER) (test code = 770) 8.1 gm/dL 6.0-8.3 ALBUMIN (BEAKER) (test code = 1145) 4.5 g/dL 3.5-5.0 BILIRUBIN TOTAL (BEAKER) (test code = 377) 0.4 mg/dL 0.2-1.2 BILIRUBIN DIRECT (BEAKER) (test code = 706) 0.2 mg/dL 0.1-0.5 ALKALINE PHOSPHATASE (BEAKER) (test code = 346) 120 U/L 40-150 AST (SGOT) (BEAKER) (test code = 353) 37 U/L 5-34 H ALT (SGPT) (BEAKER) (test code = 347) 39 U/L 6-55 CBC W/PLT COUNT & AUTO [id number] 00:13:00* Test Item Value Reference Range Interpretation Comments WHITE BLOOD CELL COUNT (BEAKER) (test code = 775) 7.1 K/ L 3.5- 10.5 RED BLOOD CELL COUNT (BEAKER) (test code = 761) 4.20 M/ L 3.93-5 .22 HEMOGLOBIN (BEAKER) (test code = 410) 11.8 GM/DL 11.2-15.7 HEMATOCRIT (BEAKER) (test code = 411) 35.8 % 34.1-44.9 MEAN CORPUSCULAR VOLUME (BEAKER) (test code = 753) 85.2 fL 79. 4-94.8 MEAN CORPUSCULAR HEMOGLOBIN (BEAKER) (test code = 751) 28.1 pg 25.6-32.2 MEAN CORPUSCULAR HEMOGLOBIN CONC (BEAKER) (test code = 752) 33.0 GM/DL 32.2-35.5 RED CELL DISTRIBUTION WIDTH (BEAKER) (test code = 412) 14.5 % 11.7-14.4 H PLATELET COUNT (BEAKER) (test code = 756) 447 K/CU MM 150-450 MEAN PLATELET VOLUME (BEAKER) (test code = 754) 9.2 fL 9.4-12 .3 L NUCLEATED RED BLOOD CELLS (BEAKER) (test code = 413) 0 /100 WBC 0 -0 NEUTROPHILS RELATIVE PERCENT (BEAKER) (test code = 429) 56 % LYMPHOCYTES RELATIVE PERCENT (BEAKER) (test code = 430) 32 % MONOCYTES RELATIVE PERCENT (BEAKER) (test code = 431) 8 % EOSINOPHILS RELATIVE PERCENT (BEAKER) (test code = 432) 4 % BASOPHILS RELATIVE PERCENT (BEAKER) (test code = 437) 0 % NEUTROPHILS ABSOLUTE COUNT (BEAKER) (test code = 670) 3.99 K/ L 1.56-6.13 LYMPHOCYTES ABSOLUTE COUNT (BEAKER) (test code = 414) 2.28 K/ L 1.18-3.74 MONOCYTES ABSOLUTE COUNT (BEAKER) (test code = 415) 0.56 K/ L 0. 24-0.36 H EOSINOPHILS ABSOLUTE COUNT (BEAKER) (test code = 416) 0.26 K/ L 0.04-0.36 BASOPHILS ABSOLUTE COUNT (BEAKER) (test code = 417) 0.02 K/ L 0. 01-0.08 IMMATURE GRANULOCYTES-RELATIVE PERCENT (BEAKER) (test code = 2801) 0 % 0-1 MR, ABDOMEN, WITHOUT / WITH IV [id number] 18:55:00Reason for Exam:-> C25.9 Q61.5 N20.9 R10.9 R31.9 K86.9FINAL REPORT MRI of the abdomen dated May [...] The small and large bowel are unremarkable. IMPRESSION:1. Stable interval examination of the abdomen.2. Status post distal pancreatectomy and splenectomy.3. Fatty liver. Signed: Al Bravo V erified Date/Time: 05/24/2019 18:55:37 Reading Location: [address] Body R eading Room 06:5 5 PM MR abdomen without & with IV [id number] 18:55:00Interface, External Ris In - 05/24/2019 6:58 PM CSTFINAL REPORT MRI of the abdomen dated May 24, 2019 COMPARISON: December 28, 2018 Comment: Multiplanar T1 and T2-weighted images of the abdomen, postcontrast axial and coronal T1- weighted images of the abdomen were obtained. Patient [...] The small and large bowel are unremarkable. IMPRESSION:1. Stable int erval examination of the abdomen.2. Status post distal pancreatectomy and splene ctomy.3. Fatty liver. Signed: Al Bravo Verified Date/Time: 05/24/20 18:55:37 Reading Location: [facility] C013 CT Body Reading Room Electronica lly signed by: AL BRAVO M.D. on 05/24/2019 06:55 PM [facility] 2 [id number] 16:25:00Reason for Exam:->c25.9FINAL REPORT CHEST PA AND LATERAL Comparison exam: 10/22/2018 History provided: C 25.9 Heart size normal. Lungs are clear and vascularity normal. Port-A-Cath from left jugular approach with catheter tip at the level of the SVC. Signed: Yury Davalos Verified Date/Time: 05/24/2019 16:25:02 Reading Location: [facility] Radiology Reading Room Chest 2 [id number] 16:25:00 Interface, External Ris In - 05/24/2019 4:27 PM CSTFINAL REPORT PATIENT ID: [id number] CHEST PA AND LATERAL Comparison exam: 10/22/2018 History provided: C 25.9 Heart size normal. Lungs are clear and vascularity normal. Port-A-Cath from left jugular approach with catheter tip at the level of the SVC. Signed: Yury Davalos Verified Date/Time: 05/24/2019 16:25:02 Reading Location: [facility] Rad iology Reading Room Electronically signed by: YURY DAVALOS on 9 04:25 PM [facility] HospitalPROTHROMBIN [id number] 02:54:00* Test Item Value Reference Range Interpretation Comments PROTHROMBIN TIME PATIENT (test code = PTP) 11.2 seconds 9.0-14.0 N INTERNATIONAL NORMAL RATIO (test code = INR) 0.9 0.8-1.2 N The therapeutic range for oral anticoagulant therapy formost indications is an international normalized ratio (INR)of between 2.0 and 3.0. The recommended therapeutic INRrange for various clinical situations is listed below: Clinical Situation INR range Pulmonary e mbolism treatment (2.0-3.0)Venous thrombosis treatmentVenous thrombosis prophylaxis (high risk surgery)Prevention of systemic embolism from: Acute myocardial infarction Valvular heart disease Atrial fibrillation Mechanical prosthetic heart valves (2.5-3.5) IS PATIENT ON ANTICOAGULANTS? NTHROMBOPLASTIN TIME [id number] 02:54:00* Test Item Value Reference Range Interpretation Comments THROMBOPLASTIN TIME PARTIAL (test code = PTT) 33.5 seconds 25.0-36. 5 N IS PATIENT ON ANTICOAGULANTS? N- CT ABD PELVIS W/O [id number] 00:56:00 Name: BELIA VIGIL [facility] : 1980 Age/S: 38 / F [address] [facility] Unit #: [id number] Loc: LUCY [place] [address] Phys: Marie Cruz MD Acct: [id number] Di s Date: Status: REG ER PHONE #: Exam Date: 05/22/2019 0045 FAX #: [phone] Reason: abd pain, rectal bleeding EXAMS: CPT CODE: [id number] CT ABD PELVIS W/O CONT 96507 AFTER HOURS SERVICE ON: 07/22/2018 12:[address] Scan of the Abdomen and Pelvis Without Contr ast Location Code M12 History: abd pain, rectal blee ding Technique: Axial and reconstructed coronal scans were perfor med on a helical scanner pre oral and IV contrast. Study is limited second palak to lack of oral and IV contrast. One or more of the fol lowing dose reduction techniques were used: Automated exposure control, ad justment of the mA and/or kV according to patient size, and/or utilization of iterative reconstruction technique. Findings: Spleen is absent. Body and tail of the pancreas are not visualized. There are postsurgical changes in the right upper quadrant with sutures a round the pancreatic head and cholecystectomy clips in the gallbladder fos sa. Liver is diffusely hypodense consistent with fatty infiltration. The adrenal glands are symmetric. There are multiple nonobstructing bilateral renal calculi. They measure up to 3 mm. Four are located in the left kidney and five in the right kidney. There is no hydronephr osis. Bladder is unremarkable. Uterus is absent. There is no bow el obstruction or free air. The appendix is not visualized. IMPRESSION: Multiple bilateral nonobstructing renal calculi. Multiple surgical changes in the upper abdomen. Fatty liver. PAGE 1 Signed Report (CONTINUED) Name: BELIA VIGIL [facility] : 1980 Age/S: 38 / F [address] [facility] Unit [facility]: [id number] Loc: LUCY [place] [address] Phys: Marie Cruz MD Acct: [id number] Dis Date: Status: REG ER PHONE #: [phone] Exam Date: 05/22/201944 FAX #: [phone] Reason: abd pain, rectal bleeding EXAMS: CPT CODE: [id number] CT ABD PELVIS W/O CONT 11542 < Continued> at 0056 Reported and signed by: Ruma Bal M.D. CC: Marie Cruz MD Technologist:SAM HOWE RT; AL AT CTDI: DLP: Trnscb Date/Time: 05/22/2019 (55) Terrell.MA50 Orig Print D/T: S: 05/22/2019 (58) PAGE 2 Signed Report BASIC METABOLIC [id number] 00:37:00* Test Item Value Reference Range Interpretation Comments SODIUM (test code = NA) 142 mmol/L 136-145 N POTASSIUM (test code = K) 3.7 mmol/L 3.5-5.1 N CHLORIDE (test code = CL) 113.0 mmol/L 98-107 H CARBON DIOXIDE (test code = CO2) 24.0 mmol/L 21-32 N ANION GAP (test code = GAP) 8.7 10-20 L GLUCOSE (test code = GLU) 87 mg/dL 74-106 N BLOOD UREA NITROGEN (test code = BUN) 7 mg/dL 7-18 N GLOMERULAR FILTRATION RATE (test code = GFR) > 60 mL/min >=60 Estimated GFR by using Modified MDRD formula.Chronic kidney disease is defined as either kidney damageor GFR <60 mL/min/1.73 m2 for >3 months. CREATININE (test code = CREAT) 0.60 mg/dL 0.55-1.02 N Note change in reference range due to change in reagent. BUN/CREATININE RATIO (test code = BUN/CREA) 10.9 10-20 N CALCIUM (test code = CA) 8.7 mg/dL 8.5-10.1 N HEPATIC FUNCTION [id number] 00:37:00* Test Item Value Reference Range Interpretation Comments TOTAL PROTEIN (test code = PROT) 8.0 gram/dL 6.4-8.2 N ALBUMIN (test code = ALB) 3.8 g/dL 3.4-5.0 N GLOBULIN (test code = GLOB) 4.2 gram/dL 2.7-4.2 N ALBUMIN/GLOBULIN RATIO (test code = A/G) 0.9 0.75-1.50 N BILIRUBIN TOTAL (test code = BILT) 0.20 mg/dL 0.0-1.0 N BILIRUBIN DIRECT (test code = BILD) 0.12 mg/dL 0.0-0.20 N SGOT/AST (test code = AST) 42 IUnit/L 15-37 H SGPT/ALT (test code = ALT) 48 IUnit/L 12-78 N ALKALINE PHOSPHATASE TOTAL (test code = ALKP) 121 IUnit/L 45-117 H Note change in reference range due to change in reagent. [id number] 00:37:00* Test Item Value Reference Range Interpretation Comments LIPASE (test code = LIP) 126 U/L 73.0-393.0 N HCG SERUM [id number] 00:37:00* Test Item Value Reference Range Interpretation Comments HCG SERUM QUAL (test code = HCGQL) NEGATIVE NEGATIVE This HCGQL test is NOT applicable for MALE patients.Check with nurse about probable order error.If Tumor Marker Test needed, nurse should order test "HCGTU"(Test #550.69484) BASIC METABOLIC [id number] 00:08:00* Test Item Value Reference Range Interpretation Comments SODIUM (test code = NA) 142 mmol/L 136-145 N POTASSIUM (test code = K) 3.7 mmol/L 3.5-5.1 N CHLORIDE (test code = CL) 113.0 mmol/L 98-107 H CARBON DIOXIDE (test code = CO2) 24.0 mmol/L 21-32 N ANION GAP (test code = GAP) 8.7 10-20 L GLUCOSE (test code = GLU) 87 mg/dL 74-106 N BLOOD UREA NITROGEN (test code = BUN) 7 mg/dL 7-18 N GLOMERULAR FILTRATION RATE (test code = GFR) > 60 mL/min >=60 Estimated GFR by using Modified MDRD formula.Chronic kidney disease is defined as either kidney damageor GFR <60 mL/min/1.73 m2 for >3 months. CREATININE (test code = CREAT) 0.60 mg/dL 0.55-1.02 N Note change in reference range due to change in reagent. BUN/CREATININE RATIO (test code = BUN/CREA) 10.9 10-20 N CALCIUM (test code = CA) 8.7 mg/dL 8.5-10.1 N HEPATIC FUNCTION [id number] 00:08:00* Test Item Value Reference Range Interpretation Comments TOTAL PROTEIN (test code = PROT) 8.0 gram/dL 6.4-8.2 N ALBUMIN (test code = ALB) 3.8 g/dL 3.4-5.0 N GLOBULIN (test code = GLOB) 4.2 gram/dL 2.7-4.2 N ALBUMIN/GLOBULIN RATIO (test code = A/G) 0.9 0.75-1.50 N BILIRUBIN TOTAL (test code = BILT) 0.20 mg/dL 0.0-1.0 N BILIRUBIN DIRECT (test code = BILD) 0.12 mg/dL 0.0-0.20 N SGOT/AST (test code = AST) 42 IUnit/L 15-37 H SGPT/ALT (test code = ALT) 48 IUnit/L 12-78 N ALKALINE PHOSPHATASE TOTAL (test code = ALKP) 121 IUnit/L 45-117 H Note change in reference range due to change in reagent. [id number] 00:08:00* Test Item Value Reference Range Interpretation Comments LIPASE (test code = LIP) 126 U/L 73.0-393.0 N HCG SERUM [id number] 00:08:00* Test Item Value Reference Range Interpretation Comments HCG SERUM QUAL (test code = HCGQL) NEGATIVE CBC W/O [id number] 23:47:00* Test Item Value Reference Range Interpretation Comments WHITE BLOOD CELL (test code = WBC) 5.3 K/mm3 4.5-12.5 N RED BLOOD CELL (test code = RBC) 4.03 mill/mm3 3.7-5.2 N HEMOGLOBIN (test code = HGB) 11.3 gram/dL 11.5-15.5 L HEMATOCRIT (test code = HCT) 35.1 % 36.0-46.0 L MEAN CELL VOLUME (test code = MCV) 87.1 fL 80-98 N MEAN CELL HGB (test code = MCH) 28.0 picogram 27.0-33.0 N MEAN CELL HGB CONCETRATION (test code = MCHC) 32.2 gram/dL 33.0-36. 0 L RED CELL DISTRIBUTION WIDTH (test code = RDW) 13.8 % 11.6-16. 2 N PLATELET COUNT (test code = PLT) 431 K/mm3 150-450 N MEAN PLATELET VOLUME (test code = MPV) 9.9 fL 6.7-11.0 N Urine [id number] 20:14:00* Test Item Value Reference Range Interpretation Comments Urine WBC (test code = 5821-4) NONE 0-5 [facility] [id number] 20:14:00* Test Item Value Reference Range Interpretation Comments Urine RBC (test code = 15168-1) 0-5 0-5 [facility] [id number] 20:14:00* Test Item Value Reference Range Interpretation Comments Urine Bacteria (test code = 21428-8) RARE NONE [facility] Epithelial [id number] 20:14:00 * Test Item Value Reference Range Interpretation Comments Urine Epithelial Cells (test code = 48049-4) NONE NONE [facility] [id number] 20:14:00* Test Item Value Reference Range Interpretation Comments Urine WBC (test code = 5821-4) NONE 0-5 [facility] [id number] 20:14:00* Test Item Value Reference Range Interpretation Comments Urine RBC (test code = 93328-0) 0-5 0-5 [facility] [id number] 20:14:00* Test Item Value Reference Range Interpretation Comments Urine Bacteria (test code = 88936-7) RARE NONE [facility] Epithelial [id number] 20:14:00 * Test Item Value Reference Range Interpretation Comments Urine Epithelial Cells (test code = 20766-8) NONE NONE [facility] [id number] 20:01:00* Test Item Value Reference Range Interpretation Comments Urine Color (test code = 5778-6) YELLOW YELLOW [facility] Dpbrcti0954-96-31 20:01:00* Test Item Value Reference Range Interpretation Comments Urine Clarity (test code = 99104-3) SL CLOUDY CLEAR [facility] Specific Ggzafth1661-55-58 20:01:00 * Test Item Value Reference Range Interpretation Comments Urine Specific [place] (test code = 5811-5) 1.025 1.010-1.02 5 [facility] [id number] 20:01:00* Test Item Value Reference Range Interpretation Comments Urine pH (test code = 17073-1) 5.5 5-7 [facility] Leukocyte Nfedgvni4610-91-85 20:01:00* Test Item Value Reference Range Interpretation Comments Urine Leukocyte Esterase (test code = 00998-1) NEGATIVE NEGATIV E [facility] Dzbbyat2560-72-78 20:01:00* Test Item Value Reference Range Interpretation Comments Urine Nitrite (test code = 22741-1) NEGATIVE NEGATIVE [facility] Tedvsdq9591-51-10 20:01:00* Test Item Value Reference Range Interpretation Comments Urine Protein (test code = 95248-9) NEGATIVE NEGATIVE [facility] Glucose (UA)2019-05-21 20:01:00* Test Item Value Reference Range Interpretation Comments Urine Glucose (UA) (test code = 61817-8) NEGATIVE NEGATIVE [facility] Sivuvky4058-82-31 20:01:00* Test Item Value Reference Range Interpretation Comments Urine Ketones (test code = 51460-3) NEGATIVE NEGATIVE [facility] Zlrwehhduqey5373-65-00 20:01:00* Test Item Value Reference Range Interpretation Comments Urine Urobilinogen (test code = 41183-6) 0.2 0.2-1 [facility] Srrppcyqi3179-67-83 20:01:00* Test Item Value Reference Range Interpretation Comments Urine Bilirubin (test code = 1977-8) NEGATIVE NEGATIVE [facility] Lxodp1289-76-59 20:01:00* Test Item Value Reference Range Interpretation Comments Urine Blood (test code = 04614-5) TRACE NEGATIVE [facility] Nqfab0938-91-74 20:01:00* Test Item Value Reference Range Interpretation Comments Urine Color (test code = 5778-6) YELLOW YELLOW [facility] Qiykmkr1214-54-54 20:01:00* Test Item Value Reference Range Interpretation Comments Urine Clarity (test code = 55053-0) SL CLOUDY CLEAR [facility] Specific Zegjdtd6555-65-82 20:01:00 * Test Item Value Reference Range Interpretation Comments Urine Specific [place] (test code = 5811-5) 1.025 1.010-1.02 5 [facility] [id number] 20:01:00* Test Item Value Reference Range Interpretation Comments Urine pH (test code = 95316-1) 5.5 5-7 [facility] Leukocyte Drmmqszl3348-45-18 20:01:00* Test Item Value Reference Range Interpretation Comments Urine Leukocyte Esterase (test code = 38830-2) NEGATIVE NEGATIV E [facility] Agcczeu1715-11-20 20:01:00* Test Item Value Reference Range Interpretation Comments Urine Nitrite (test code = 46340-4) NEGATIVE NEGATIVE [facility] Xxbimjg7519-73-28 20:01:00* Test Item Value Reference Range Interpretation Comments Urine Protein (test code = 97703-7) NEGATIVE NEGATIVE [facility] Glucose (UA)2019-05-21 20:01:00* Test Item Value Reference Range Interpretation Comments Urine Glucose (UA) (test code = 70436-1) NEGATIVE NEGATIVE [facility] Jvhagch2906-54-15 20:01:00* Test Item Value Reference Range Interpretation Comments Urine Ketones (test code = 30224-5) NEGATIVE NEGATIVE [facility] Vchoymmztjvh1123-28-53 20:01:00* Test Item Value Reference Range Interpretation Comments Urine Urobilinogen (test code = 05557-8) 0.2 0.2-1 [facility] Dzmvnwfgi1004-66-99 20:01:00* Test Item Value Reference Range Interpretation Comments Urine Bilirubin (test code = 1977-8) NEGATIVE NEGATIVE [facility] Matlx5928-32-53 20:01:00* Test Item Value Reference Range Interpretation Comments Urine Blood (test code = 74636-4) TRACE NEGATIVE [facility] Hospital[facility]/PELVIS [id number] 19:14:00 [place] [address] Patient Name: BELIA VIGIL MR #: [id number] : 1980 Age/Sex: 38/F Req #: [id number] Adm Physician: Ordered by: CONNIE HYDE DO Report #: [id number] Location: ER Room/Bed: Procedure: [id number] CT/CT ABDOMEN/PELVIS WO Exam Date: 05/21/19 Exam Cipriano e: 1830 REPORT STATUS: Signed EX AMINATION: CT of the abdomen and pelvis without contrast. TECHNIQUE: Helic al CT images of the abdomen and pelvis were performed from the lung bases to t he lesser trochanters. No intravenous contrast was given per renal stone prot ocol. Coronal and sagittal reformatted images were obtained.Dose modulation, iterative reconstruction, and/or weight based adjustment of the mA/kV was util ized to reduce the radiation dose to as low as reasonably achievable. CO MPARISON: None. CLINICAL HISTORY:Abdominal pain DISCUSSION: ABSE NCE OF INTRAVENOUS CONTRAST DECREASES SENSITIVITY FOR DETECTION OF FOCAL LESIO NS AND VASCULAR PATHOLOGY. ABDOMEN/PELVIS: LOWER THORAX: Lung base ate lectasis. Breast augmentation. HEPATOBILIARY:Hepatic steatosis. Cholecyste ctomy. No ductal dilatation. SPLEEN: No splenomegaly. PANCREAS: Stable appearance of the pancreas with poor visualization. ADRENALS: No adrenal n odules. KIDNEYS/URETERS: Bilateral nonobstructing nephrolithiasis. PEL SALMA ORGANS/BLADDER: The bladder is normal. Uterus is absent. PERITONEUM/RE TROPERITONEUM: No free air or fluid. LYMPH NODES: No intra-abdominal,retrop eritoneal, pelvic or inguinal lymphadenopathy. VESSELS: Limited evaluatio n. GI TRACT: No distention or wall thickening. BONES AND SOFT TISSUES: No bony destructive lesions. No soft tissue abnormalities. IMPRESSION: No acute CT finding. Bilateral nonobstructing renal calculi. S igned by: Dr. Inna Gale M.D. on 05/21/2019 7:20 PM Dictated By: JO-ANN GALE MD 19 Transcribed By: WAYNE on 05/21/191919 COPY TO: CONNIE HYDE DO Sodium Mthii1950-52-78 18:47:00* Test Item Value Reference Range Interpretation Comments Sodium Level (test code = 2951-2) 140 136-145 [facility] HospitalPotassium Polnu3932-67-10 18:47:00* Test Item Value Reference Range Interpretation Comments Potassium Level (test code = 2823-3) 3.6 3.5-5.1 [facility] HospitalChloride Jtzav8563-21-84 18:47:00* Test Item Value Reference Range Interpretation Comments Chloride Level (test code = 2075-0) 110 98-107 H [facility] HospitalCarbon Dioxide Scyci5813-70-81 18:47:00* Test Item Value Reference Range Interpretation Comments Carbon Dioxide Level (test code = 2028-9) 22 22-29 [facility] HospitalAnion Ojp7515-72-98 18:47:00* Test Item Value Reference Range Interpretation Comments Anion Gap (test code = 71292-6) 11.6 8-16 [facility] HospitalBlood Urea Qzhqpdhx4999-52-81 18:47:00* Test Item Value Reference Range Interpretation Comments Blood Urea Nitrogen (test code = 3094-0) 8 7-26 [facility] HospitalCreatinine2019-11-12 18:47:00* Test Item Value Reference Range Interpretation Comments Creatinine (test code = 2160-0) 0.80 0.57-1.11 [facility] HospitalBUN/Creatinine Airep8885-55-89 18:47:00* Test Item Value Reference Range Interpretation Comments BUN/Creatinine Ratio (test code = 3097-3) 10 6-25 [facility] HospitalEstimat Glomerular Filtration Rate 2019-05-21 18:47:00* Test Item Value Reference Range Interpretation Comments Estimat Glomerular Filtration Rate (test code = 634389099) > 60 >60 Ranges were taken from the National Kidney Disease Education Program and the [facility] Kid[facility] Foundation literature.Reference ranges:60 or greater: Pyucdy17-94 ( for 3 consecutive months): Chronic kidney disease 15 or less: Kidney failureHouston Methodist West HospitalGlucose Pwktm6530-05-74 18:47:00* Test Item Value Reference Range Interpretation Comments Glucose Level (test code = ATJ6009) 89 74-118 [facility] HospitalCalcium Uilyr4803-59-21 18:47:00* Test Item Value Reference Range Interpretation Comments Calcium Level (test code = 07527-2) 9.5 8.4-10.2 [facility] HospitalTotal Sinnumwjo3509-48-72 18:47:00* Test Item Value Reference Range Interpretation Comments Total Bilirubin (test code = 1975-2) 0.3 0.2-1.2 [facility] HospitalAspartate Amino Transf (AST/SGOT) 2019-05-21 18:47:00* Test Item Value Reference Range Interpretation Comments Aspartate Amino Transf (AST/SGOT) (test code = Aspartate Amino Transf (AST/SGOT)) 47 5-34 H [facility] HospitalAlanine Aminotransferase (ALT/SGPT) 2019-05-21 18:47:00* Test Item Value Reference Range Interpretation Comments Alanine Aminotransferase (ALT/SGPT) (test code = 1742-6) 40 0-55 [facility] Hqusgzk5292-93-39 18:47:00* Test Item Value Reference Range Interpretation Comments Total Protein (test code = 2885-2) 7.6 6.5-8.1 [facility] HospitalAlbumin2019-11-12 18:47:00* Test Item Value Reference Range Interpretation Comments Albumin (test code = 1751-7) 4.1 3.5-5.0 [facility] HospitalGlobulin2019-11-12 18:47:00* Test Item Value Reference Range Interpretation Comments Globulin (test code = 37450-0) 3.5 2.3-3.5 [facility] HospitalAlbumin/Globulin Rulxf4539-37-89 18:47:00 * Test Item Value Reference Range Interpretation Comments Albumin/Globulin Ratio (test code = 1759-0) 1.2 0.8-2.0 [facility] HospitalAlkaline Ahjwwjxwfxz4987-57-85 18:47:00* Test Item Value Reference Range Interpretation Comments Alkaline Phosphatase (test code = 6768-6) 109 40-150 [facility] HospitalLipase2019-11-12 18:47:00* Test Item Value Reference Range Interpretation Comments Lipase (test code = 3040-3) 42 8-78 [facility] Gfhmv1766-66-45 18:47:00* Test Item Value Reference Range Interpretation Comments Sodium Level (test code = 2951-2) 140 136-145 [facility] HospitalPotassium Xjjey6406-10-02 18:47:00* Test Item Value Reference Range Interpretation Comments Potassium Level (test code = 2823-3) 3.6 3.5-5.1 [facility] HospitalChloride Qkpqi9213-49-50 18:47:00* Test Item Value Reference Range Interpretation Comments Chloride Level (test code = 2075-0) 110 98-107 H [facility] HospitalCarbon Dioxide Adcwk2515-92-28 18:47:00* Test Item Value Reference Range Interpretation Comments Carbon Dioxide Level (test code = 2028-9) 22 22-29 [facility] HospitalAnion Ucy1357-36-37 18:47:00* Test Item Value Reference Range Interpretation Comments Anion Gap (test code = 70188-8) 11.6 8-16 [facility] HospitalBlood Urea Oorqoocn0092-66-96 18:47:00* Test Item Value Reference Range Interpretation Comments Blood Urea Nitrogen (test code = 3094-0) 8 7-26 [facility] HospitalCreatinine2019-11-12 18:47:00* Test Item Value Reference Range Interpretation Comments Creatinine (test code = 2160-0) 0.80 0.57-1.11 [facility] HospitalBUN/Creatinine Fkwaz7725-31-58 18:47:00* Test Item Value Reference Range Interpretation Comments BUN/Creatinine Ratio (test code = 3097-3) 10 6-25 [facility] HospitalEstimat Glomerular Filtration Rate 2019-05-21 18:47:00* Test Item Value Reference Range Interpretation Comments Estimat Glomerular Filtration Rate (test code = 363222100) > 60 >60 Ranges were taken from the National Kidney Disease Education Program and the [facility] Kid[facility] Foundation literature.Reference ranges:60 or greater: Uobdwh76-73 ( for 3 consecutive months): Chronic kidney disease 15 or less: Kidney failureHouston Methodist West HospitalGlucose Jbapn9198-48-96 18:47:00* Test Item Value Reference Range Interpretation Comments Glucose Level (test code = ZCP7952) 89 74-118 [facility] HospitalCalcium Fhtbe2225-30-14 18:47:00* Test Item Value Reference Range Interpretation Comments Calcium Level (test code = 16578-6) 9.5 8.4-10.2 [facility] HospitalTotal Wjypjnihx7123-07-94 18:47:00* Test Item Value Reference Range Interpretation Comments Total Bilirubin (test code = 1975-2) 0.3 0.2-1.2 [facility] HospitalAspartate Amino Transf (AST/SGOT) 2019-05-21 18:47:00* Test Item Value Reference Range Interpretation Comments Aspartate Amino Transf (AST/SGOT) (test code = Aspartate Amino Transf (AST/SGOT)) 47 5-34 H [facility] HospitalAlanine Aminotransferase (ALT/SGPT) 2019-05-21 18:47:00* Test Item Value Reference Range Interpretation Comments Alanine Aminotransferase (ALT/SGPT) (test code = 1742-6) 40 0-55 [facility] HospitalTotal Vlaeggj5794-00-92 18:47:00* Test Item Value Reference Range Interpretation Comments Total Protein (test code = 2885-2) 7.6 6.5-8.1 [facility] HospitalAlbumin2019-11-12 18:47:00* Test Item Value Reference Range Interpretation Comments Albumin (test code = 1751-7) 4.1 3.5-5.0 [facility] 18:47:00* Test Item Value Reference Range Interpretation Comments Globulin (test code = 52977-4) 3.5 2.3-3.5 [facility] HospitalAlbumin/Globulin [id number] 18:47:00 * Test Item Value Reference Range Interpretation Comments Albumin/Globulin Ratio (test code = 1759-0) 1.2 0.8-2.0 [facility] HospitalAlkaline [id number] 18:47:00* Test Item Value Reference Range Interpretation Comments Alkaline Phosphatase (test code = 6768-6) 109 40-150 [facility] HospitalLipase2019-11-12 18:47:00* Test Item Value Reference Range Interpretation Comments Lipase (test code = 3040-3) 42 8-78 [facility] Chorionic Gonadotropin, Qual 2019-05-21 18:42:00* Test Item Value Reference Range Interpretation Comments Human Chorionic Gonadotropin, Qual (test code = 2118-8) NEGATIVE NEGATIVE [facility] Chorionic Gonadotropin, Qual 2019-05-21 18:42:00* Test Item Value Reference Range Interpretation Comments Human Chorionic Gonadotropin, Qual (test code = 8-8) NEGATIVE NEGATIVE [facility] HospitalWhite Blood [id number] 18:32:00* Test Item Value Reference Range Interpretation Comments White Blood Count (test code = 6690-2) 6.31 4.8-10.8 [facility] HospitalRed Blood [id number] 18:32:00* Test Item Value Reference Range Interpretation Comments Red Blood Count (test code = 789-8) 4.01 3.6-5.1 [facility] HospitalHemoglobin2019-11-12 18:32:00* Test Item Value Reference Range Interpretation Comments Hemoglobin (test code = 80407-5) 11.4 12.0-16.0 L [facility] HospitalHematocrit2019-11-12 18:32:00* Test Item Value Reference Range Interpretation Comments Hematocrit (test code = 4544-3) 35.1 34.2-44.1 [facility] HospitalMean Corpuscular [id number] 18:32:00* Test Item Value Reference Range Interpretation Comments Mean Corpuscular Volume (test code = 787-2) 87.5 81-99 [facility] HospitalMean Corpuscular [id number] 18:32:00* Test Item Value Reference Range Interpretation Comments Mean Corpuscular Hemoglobin (test code = 785-6) 28.4 28-32 [facility] Concent 2019-05-21 18:32:00* Test Item Value Reference Range Interpretation Comments Mean Corpuscular Hemoglobin Concent (test code = 786-4) 32.5 31-35 [facility] HospitalRed Cell Distribution [id number] 18:32:00* Test Item Value Reference Range Interpretation Comments Red Cell Distribution Width (test code = 45565-2) 14.1 11.7 -14.4 [facility] HospitalPlatelet [id number] 18:32:00* Test Item Value Reference Range Interpretation Comments Platelet Count (test code = 777-3) 430 140-360 H [facility] HospitalNeutrophils (%) (Auto)2019-05-21 18:32:00 * Test Item Value Reference Range Interpretation Comments Neutrophils (%) (Auto) (test code = 25519-1) 36.1 38.7-80.0 L [facility] HospitalLymphocytes (%) (Auto)2019-05-21 18:32:00 * Test Item Value Reference Range Interpretation Comments Lymphocytes (%) (Auto) (test code = 736-9) 38.4 18.0-39.1 [facility] HospitalMonocytes (%) (Auto)2019-05-21 18:32:00* Test Item Value Reference Range Interpretation Comments Monocytes (%) (Auto) (test code = 5905-5) 14.3 4.4-11.3 H [facility] HospitalEosinophils (%) (Auto)2019-05-21 18:32:00 * Test Item Value Reference Range Interpretation Comments Eosinophils (%) (Auto) (test code = 713-8) 10.5 0.0-6.0 H [facility] HospitalBasophils (%) (Auto)2019-05-21 18:32:00* Test Item Value Reference Range Interpretation Comments Basophils (%) (Auto) (test code = 706-2) 0.5 0.0-1.0 [facility] HospitalIM GRANULOCYTES %2019-05-21 18:32:00* Test Item Value Reference Range Interpretation Comments IM GRANULOCYTES % (test code = IM GRANULOCYTES %) 0.2 0.0- 1.0 [facility] HospitalNeutrophils # (Auto)2019-05-21 18:32:00* Test Item Value Reference Range Interpretation Comments Neutrophils # (Auto) (test code = 751-8) 2.3 2.1-6.9 [facility] HospitalLymphocytes # (Auto)2019-05-21 18:32:00* Test Item Value Reference Range Interpretation Comments Lymphocytes # (Auto) (test code = 66189-7) 2.4 1.0-3.2 [facility] HospitalMonocytes # (Auto)2019-05-21 18:32:00* Test Item Value Reference Range Interpretation Comments Monocytes # (Auto) (test code = 742-7) 0.9 0.2-0.8 H [facility] HospitalEosinophils # (Auto)2019-05-21 18:32:00* Test Item Value Reference Range Interpretation Comments Eosinophils # (Auto) (test code = 711-2) 0.7 0.0-0.4 H [facility] HospitalBasophils # (Auto)2019-05-21 18:32:00* Test Item Value Reference Range Interpretation Comments Basophils # (Auto) (test code = 704-7) 0.0 0.0-0.1 [facility] HospitalAbsolute Immature Granulocyte (auto 2019-05-21 18:32:00* Test Item Value Reference Range Interpretation Comments Absolute Immature Granulocyte (auto (may t code = Absolute Immature Granulocyte (auto) 0.01 0-0.1 [facility] HospitalWhite Blood [id number] 18:32:00* Test Item Value Reference Range Interpretation Comments White Blood Count (test code = 6690-2) 6.31 4.8-10.8 [facility] HospitalRed Blood [id number] 18:32:00* Test Item Value Reference Range Interpretation Comments Red Blood Count (test code = 789-8) 4.01 3.6-5.1 [facility] HospitalHemoglobin2019-11-12 18:32:00* Test Item Value Reference Range Interpretation Comments Hemoglobin (test code = 25412-6) 11.4 12.0-16.0 L [facility] HospitalHematocrit2019-11-12 18:32:00* Test Item Value Reference Range Interpretation Comments Hematocrit (test code = 4544-3) 35.1 34.2-44.1 [facility] HospitalMean Corpuscular [id number] 18:32:00* Test Item Value Reference Range Interpretation Comments Mean Corpuscular Volume (test code = 787-2) 87.5 81-99 [facility] HospitalMean Corpuscular [id number] 18:32:00* Test Item Value Reference Range Interpretation Comments Mean Corpuscular Hemoglobin (test code = 785-6) 28.4 28-32 [facility] HospitalMean Corpuscular Hemoglobin Concent 2019-05-21 18:32:00* Test Item Value Reference Range Interpretation Comments Mean Corpuscular Hemoglobin Concent (test code = 786-4) 32.5 31-35 [facility] HospitalRed Cell Distribution [id number] 18:32:00* Test Item Value Reference Range Interpretation Comments Red Cell Distribution Width (test code = 30301-9) 14.1 11.7 -14.4 [facility] HospitalPlatelet [id number] 18:32:00* Test Item Value Reference Range Interpretation Comments Platelet Count (test code = 777-3) 430 140-360 H [facility] HospitalNeutrophils (%) (Auto)2019-05-21 18:32:00 * Test Item Value Reference Range Interpretation Comments Neutrophils (%) (Auto) (test code = 21739-7) 36.1 38.7-80.0 L [facility] HospitalLymphocytes (%) (Auto)2019-05-21 18:32:00 * Test Item Value Reference Range Interpretation Comments Lymphocytes (%) (Auto) (test code = 736-9) 38.4 18.0-39.1 [facility] HospitalMonocytes (%) (Auto)2019-05-21 18:32:00* Test Item Value Reference Range Interpretation Comments Monocytes (%) (Auto) (test code = 5905-5) 14.3 4.4-11.3 H [facility] HospitalEosinophils (%) (Auto)2019-05-21 18:32:00 * Test Item Value Reference Range Interpretation Comments Eosinophils (%) (Auto) (test code = 713-8) 10.5 0.0-6.0 H [facility] HospitalBasophils (%) (Auto)2019-05-21 18:32:00* Test Item Value Reference Range Interpretation Comments Basophils (%) (Auto) (test code = 706-2) 0.5 0.0-1.0 [facility] HospitalIM GRANULOCYTES %2019-05-21 18:32:00* Test Item Value Reference Range Interpretation Comments IM GRANULOCYTES % (test code = IM GRANULOCYTES %) 0.2 0.0- 1.0 [facility] HospitalNeutrophils # (Auto)2019-05-21 18:32:00* Test Item Value Reference Range Interpretation Comments Neutrophils # (Auto) (test code = 751-8) 2.3 2.1-6.9 [facility] HospitalLymphocytes # (Auto)2019-05-21 18:32:00* Test Item Value Reference Range Interpretation Comments Lymphocytes # (Auto) (test code = 56086-1) 2.4 1.0-3.2 [facility] HospitalMonocytes # (Auto)2019-05-21 18:32:00* Test Item Value Reference Range Interpretation Comments Monocytes # (Auto) (test code = 742-7) 0.9 0.2-0.8 H [facility] HospitalEosinophils # (Auto)2019-05-21 18:32:00* Test Item Value Reference Range Interpretation Comments Eosinophils # (Auto) (test code = 711-2) 0.7 0.0-0.4 H [facility] HospitalBasophils # (Auto)2019-05-21 18:32:00* Test Item Value Reference Range Interpretation Comments Basophils # (Auto) (test code = 704-7) 0.0 0.0-0.1 [facility] HospitalAbsolute Immature Granulocyte (auto 2019-05-21 18:32:00* Test Item Value Reference Range Interpretation Comments Absolute Immature Granulocyte (auto (may t code = Absolute Immature Granulocyte (auto) 0.01 0-0.1 [facility] [id number] 21:07:47 Gastrointestinal panelNegative for all pathogens tested:Negative for SalmonellaN egative for CampylobacterNegative for Diarrheagenic E coli/ShigellaNegative for Shiga-like toxin-producing E coliNegative for Plesiomonas shigelloidesNegative f or Yersinia enterocoliticaNegative for Vibrio speciesNegative for Clostridium di fficile (Toxin A/B)Negative for CryptosporidiumNegative for Giardia lambliaNegat ivonne for Cyclospora cayeteanensisNegative for Entamoeba histolyticaNegative for A denovirus F 40/41Negative for AstrovirusNegative for Norovirus GI/GIINegative fo r Rotavirus ANegative for SapovirusNegative for Clostridium difficile toxinNegat ivonne for E coli 0157This real-time PCR assay detects the presence of nucleic acid s (RNA or DNA) for the gastrointestinal pathogens listed.A result of "Not-detect ed" does not exclude the possibility of the presence of one or more pathogens at concentrations less than the detectable limits of the assay. Comment: Specimen InformationSpecimen Source: StoolSpecimen Site: Nonpreserved [facility] MethodistAmylase [id number] 02:27:41* Test Item Value Reference Range Interpretation Comments Amylase (test code = 1798-8) 55 U/L 13-73 [place] MandaenOccult blood, [id number] 02:18:40* Test Item Value Reference Range Interpretation Comments Occult blood, stool (test code = 2334-1) Positive for Occult blood A Specimen InformationSpecimen Source: StoolSpecimen Site: Nonpreserved Lab Interpretation (test code = 51188-6) Abnormal [place] MandaenMR, ABDOMEN, WITHOUT / WITH IV [id number] 08:31:00FINAL REPORT History: 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 Technique: Multiplanar, multisequence images of the abdomen wer e obtained before and after the administration of 5.5 cc of gadolinium. 3D vol ume rendered reformation images of the biliary tree were performed. Findings: Images are mildly motion degraded. Biliary tree: Minimal central intrahepatic bi liary ductal distention without beading or narrowing. The common hepatic duct me asures 3 mm in maximum diameter. The cystic duct is normal in morphology. The co mmon bile duct measures 5 mm in diameter and comes to a tight taper at the ampul la. No intraluminal filling defects. Liver: Moderate steatosis. A high T2, low T 1 signal lesion in segment 5 measures 4 mm and is stable. No evidence of enhance ment. No enhancing lesions.Spleen: AbsentPancreas: Only the pancreas head and pr oximal body are visible and are normal in signal without mass. The pancreas duct in this region is normal. The remainder of the pancreas parenchyma is absent. K idneys: No hydronephrosis or cortical mass Adrenal glands: No mass Lymph nodes: The soft tissue adjacent to the common hepatic artery and portal vein on the Fe bruary MRI is not visible on this exam, possibly due to motion artifact. There a re no enlarged lymph nodes. Bowel: The stomach and visualized portions of the s mall bowel and large bowel are normal in diameter with normal wall thickness. Va sculature: Patent and normal in morphology. Peritoneum/retroperitoneum: No free fluid or fluid collection. There is fat infarct just superior to the pancreas he ad measuring 2.3 x 2.2 cm. Lung bases: Clear. Bones: Normal marrow signal. No fo tobi osseous lesions. Soft tissues: Bilateral breast prostheses. IMPRESSION: 1. 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 Residual pancreas parenchyma is normal in morphology. No mass or lymphadenopathy to sugge st tumor recurrence or metastasis.2. Moderate steatosis.3. Subcentimeter nonenha ncing lesion in segment 5 of liver is stable and has MRI characteristics of a cy st. Thank you for your referral. Signed: Soni Rayeport Verified Da te/Time: 01/02/2019 08:31:13 Reading Location: [facility] Reading Room [address] [place] [address] , CHEST, WITH IV [id number] 15:05:00FINAL REPORT EXAM: CT Chest WITHOUT contrastINDICATION: Pancreatic [...] hilar or axillary lymphadenopathy. The heart is n ormal in size. There is no pericardial effusion. UPPER ABDOMEN: Hepatic darrick atosis. Postsurgical change to the pancreatic region. Renal calculus. Refer to. BONES: The visualized bony thorax is within normal limits. SOFT TISSUES: Unremar kable. IMPRESSION: No pulmonary metastasis. Signed: Inna Gale MDReport Shae ified Date/Time: 12/28/2018 15:05:54 Reading Location: [facility] Room [address] [place] [address] 03:0 5 PM BLOOD [id number] 02:00:00* Test Item Value Reference Range Interpretation Comments CULTURE (BEAKER) (test code = 1095) No growth in 5 days BLOOD [id number] 02:00:00* Test Item Value Reference Range Interpretation Comments CULTURE (BEAKER) (test code = 1095) No growth in 5 days TISSUE [id number] 15:36:00Surgical Pathology Report Case: [id number] Authorizing Provider: Kale Buchanan II, MD Collected: 10/16/2018 1013 Ordering Location: [facility] Received: 10/16/2018 1451 SERVICES Pathologist: Hugo [...] see comment Signing Pathologist Direct Phone Line: [phone] signed by Hugo Quinteros MD on 10/24/2018 [...] inflammation, grade 1 + hepatocyte ballooning score 1 = /8. 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), s/p neoadjuvant chemotherapy Histologic Grade: Not applicable Tumor Size: Cannot be determined: No residual tumor seen Tumor Extent: Tumor Extension: No evidence of primary tumor Accessory Findings: Treatment Effect: Present : No viable cancer cells (complete response, score 0) Lymphovascular I nvasion: Not identified Perineural Invasion: Not identified MARGINS Margins: Proximal Pancreatic Parenchymal Margin: Uninvolved by invas ivonne carcinoma and pancreatic high-grade intraepithelial neoplasia LYMPH NODES Number of Lymph Nodes Involved: 0 Number of Lymph Nodes Examined: 23 PA THOLOGIC STAGE CLASSIFICATION (pTNM, AJCC 8th Edition) TNM Descriptors: y (post-treatment) Primary Tumor (pT): pT0 Regional Lymph Nodes (pN): pN0 ADDITIONAL FINDINGS Additional Pathologic Findings: Chronic pancreatiti [place] 82643, 47435 x3, 77994, 05726 x4, 39378, 462[address]Ryauwglju neoplasm of pancreasA. Left gastric lymph nodes; B. Hepatic artery lymph node; C. Hepatic artery lymph node #2; D. Distal pancreas and spleen; E. Liver biopsyThe specimen is received in five containers all labeled with the patient's information and received with out formalin. Part A labeled "left gastric lymph node" consists of adipose tissu e measuring 2.5 x 2 x 1 cm yielding three lymph nodes measuring up to 1 cm. Sect ion code: A1, one lymph node bisected; A2, two lymph nodes.Part B labeled "hepat ic artery lymph node" consists of a single bell-red lymph node measuring 0.8 cm, bisected, submitted entirely B1. Part C labeled "hepatic artery lymph node #2" c onsists of a bell-red lymph node measuring 1 x 0.5 x 0.6 cm. Cut surface shows a yellow discolored area measuring 0.5 cm in greatest dimension. Lymph node is ent irely submitted C1. Part D labeled "distal pancreas and spleen" consists of a di stal pancreatectomy with spleen measuring 14 x 8 x 4 cm and pancreatic tail colleen uring 9.5 x 3 x 1 cm. Attached splenic fat measures 8 x 6 x 2 cm.Ink code: Poste rior pancreas-black, anterior pancreas-blue, pancreatic margin-red.The entire pa ncreas parenchyma has a discolored bell-pink gritty appearance that grossly appea rs to continue to the resection margin. The spleen is serially sectioned showing homogeneous, red-brown, spongy cut surface. No masses are present. The adipose tissue is sectioned yielding seven bell-pink lymph nodes measuring up to 1 cm in greatest dimension.Section code: D1, resection margin en face; D2-D8, pancreas a nterior from distal to proximal; D9-D15, posterior pancreas distal to proximal; D16, three lymph nodes; D17, four lymph nodes; D18, D19, spleen. Pictures are ta nereida. CG/ewPart E labeled "liver biopsy" consists of four bell core biopsies rangi ng in length from 0.3 to 1 cm, submitted entirely E1. CG/pl A-D. Microscopic exa mination is performed and the findings are incorporated in the diagnostic line. C. Immunostain for AE1/AE3 and CAM 5.2 is negative. AFB, Navi and GMS stains are negative for micro-organisms. E Section shows multiple variably sized cores of liver parenchyma with greater than 10 portal tracts and is adequate for evaluati on. There is moderate steatosis, mixed small droplet and large droplet type, dis tributed in a centrilobular distribution pattern, and involving about 40% of yancy er parenchyma. Rare ballooning degeneration is noted and there is rare focus of lobular inflammation. No acidophil bodies are seen. No glycogenated nuclei are s een. The portal tracts are largely unremarkable with preserved and unremarkable bile ducts. There is mild chronic nonspecific portal inflammation. Iron stain is negative. No hyaline globules are seen on PAS with diastase stain. The trichrome stain shows mild focal perisinusoidal fibrosis. No portal/periportal fibrosis is seen.The interpretation of this case included the use of immunohistochemistry or special stains. Immunohistochemistry technical testing was performed at [facility], Pathology Laboratory where it was developed and its performance characteristics were determined. It has not been cleared or approved by the U.S. Food and Drug Administration. The FDA has determined that such cl earance or approval is not necessary. The test is used for clinical purposes. It should not be regarded as investigational or for research. This laboratory is c ertified under the Clinical Laboratory Improvement Amendments of 1988 (CLIA-88) as qualified to perform high complexity clinical laboratory testing.BLOOD [id number] 14:35:00* Test Item Value Reference Range Interpretation Comments CULTURE (CATHYAKER) (test code = 1095) No growth in 5 days POCT-GLUCOSE [id number] 13:44:00* Test Item Value Reference Range Interpretation Comments POC-GLUCOSE METER (BEAKER) (test code = 1538) 172 mg/dL 70-110 H TESTED AT [facility] [address] [facility] [address] RESPIRATORY PANEL [id number] 13:15:00* Test Item Value Reference Range Interpretation Comments HUMAN METAPNEUMOVIRUS (BEAKER) (test code = 1603) Not detect ed Not detected, Equivocal RHINOVIRUS (BEAKER) (test code = 2684) Not detected Not detected, E quivocal INFLUENZA A (BEAKER) (test code = 7655) Not detected Not detected, Equivocal INFLUENZA A (NO SUBTYPE) (test code = 5206) Not detect ed, Equivocal INFLUENZA A SUBTYPE H1 (BEAKER) (test code = 2686) Not detected, Equivocal INFLUENZA A SUBTYPE H3 (BEAKER) (test code = 2687) Not detected, Equivocal INFLUENZA A SUBTYPE H1-2009 (BEAKER) (test code = 3198) Not detected, Equivocal INFLUENZA B (BEAKER) (test code = 2688) Not detected Not detected, Equivocal RESPIRATORY SYNCYTIAL VIRUS (BEAKER) (test code = 3199) Not detected Not detected, Equivocal PARAINFLUENZA VIRUS 1 (BEAKER) (test code = 2691) Not detect ed Not detected, Equivocal PARAINFLUENZA VIRUS 2 (BEAKER) (test code = 2692) Not detect ed Not detected, Equivocal PARAINFLUENZA VIRUS 3 (BEAKER) (test code = 2693) Not detect ed Not detected, Equivocal PARAINFLUENZA VIRUS 4 (BEAKER) (test code = 3200) Not detect ed Not detected, Equivocal ADENOVIRUS (BEAKER) (test code = 2694) Not detected Not detected, E quivocal CORONAVIRUS 229E (BEAKER) (test code = 3201) Not detected Not detected, Equivocal CORONAVIRUS HKU1 (BEAKER) (test code = 3202) Not detected Not detected, Equivocal CORONAVIRUS NL63 (BEAKER) (test code = 3203) Not detected Not detected, Equivocal CORONAVIRUS OC43 (BEAKER) (test code = 3204) Not detected Not detected, Equivocal BORDETELLA PERTUSSIS (BEAKER) (test code = 3205) Not detecte d Not detected, Equivocal CHLAMYDOPHILA PNEUMONIAE (BEAKER) (test code = 3206) Not det ected Not detected, Equivocal MYCOPLASMA PNEUMONIAE (BEAKER) (test code = 3207) Not detect ed Not detected, Equivocal Other viruses and bacteria not targeted by this PCR panel cannot be excluded; th erefore clinical correlation and follow up of serology, culture results, and oth er molecular studies is required. The results are not intended to be used as the sole means for clinical diagnosis or patient management decisions. This sample was tested at the [facility] Molecular Diagnostics Laboratory using the SwapferitA rray Respiratory Panel. It is FDA cleared and has been verified and approved by the [facility] for clinical use on nasal swab specim ens. It is not FDA-cleared for use on bronchial wash/lavage samples. However, fo r this sample type, validation was performed and test characteristics were deter mined and approved, by [facility] laboratory for clinical use u nder the Clinical Laboratory Improvement Amendments (CLIA) of 1988 requirements. Therefore, FDA clearance is not required. This laboratory is CLIA-certified and [employer] (CAP)-accredited to perform high complexity t esting.URINALYSIS W/ REFLEX URINE [id number] 11:03:00* Test Item Value Reference Range Interpretation Comments COLOR (BEAKER) (test code = 470) Yellow CLARITY (BEAKER) (test code = 469) Hazy SPECIFIC GRAVITY UA (BEAKER) (test code = 468) 1.010 1.001-1 .035 PH UA (BEAKER) (test code = 467) 7.0 5.0-8.0 PROTEIN UA (BEAKER) (test code = 464) 10 mg/dL Negative A GLUCOSE UA (BEAKER) (test code = 365) Negative Negative KETONES UA (BEAKER) (test code = 371) Negative Negative BILIRUBIN UA (BEAKER) (test code = 462) Negative Negative BLOOD UA (BEAKER) (test code = 461) Negative Negative NITRITE UA (BEAKER) (test code = 465) Negative Negative LEUKOCYTE ESTERASE UA (BEAKER) (test code = 466) Negative Negat ivonne UROBILINOGEN UA (BEAKER) (test code = 463) 0.2 mg/dL 0.2-1.0 RBC UA (BEAKER) (test code = 519) 1 /HPF WBC UA (BEAKER) (test code = 520) 1 /HPF BACTERIA (BEAKER) (test code = 517) Occasional MUCUS (BEAKER) (test code = 1574) Rare SQUAMOUS EPITHELIAL (BEAKER) (test code = 516) 2 /HPF SOURCE(BEAKER) (test code = 2795) POCT-GLUCOSE [id number] 09:22:00* Test Item Value Reference Range Interpretation Comments POC-GLUCOSE METER (BEAKER) (test code = 1538) 123 mg/dL 70-110 H TESTED AT [facility] [address] [facility] [address] [id number] 05:13:00* Test Item Value Reference Range Interpretation Comments PHOSPHORUS (BEAKER) (test code = 604) 3.1 mg/dL 2.3-4.7 [id number] 05:13:00* Test Item Value Reference Range Interpretation Comments MAGNESIUM (BEAKER) (test code = 627) 1.9 mg/dL 1.6-2.6 BASIC METABOLIC [id number] 05:13:00* Test Item Value Reference Range Interpretation Comments SODIUM (BEAKER) (test code = 381) 138 meq/L 136-145 POTASSIUM (BEAKER) (test code = 379) 4.1 meq/L 3.5-5.1 CHLORIDE (BEAKER) (test code = 382) 106 meq/L 98-107 CO2 (BEAKER) (test code = 355) 23 meq/L 22-29 BLOOD UREA NITROGEN (BEAKER) (test code = 354) 9 mg/dL 7-21 CREATININE (BEAKER) (test code = 358) 0.64 mg/dL 0.57-1.25 GLUCOSE RANDOM (BEAKER) (test code = 652) 159 mg/dL 70-105 H CALCIUM (BEAKER) (test code = 697) 8.6 mg/dL 8.4-10.2 EGFR (BEAKER) (test code = 1092) 104 mL/min/1.73 sq m ESTIMATED GFR IS NOT ACCURATE CREATININE CLEARANCE IN PREDICTING GLOMERULAR FILTRATION RATE. ESTIMATED GFR IS NOT APPLICABLE FOR DIALYSIS PATIENTS. BLOOD [id number] 02:00:00* Test Item Value Reference Range Interpretation Comments CULTURE (BEAKER) (test code = 1095) No growth in 5 days POCT-GLUCOSE [id number] 21:18:00* Test Item Value Reference Range Interpretation Comments POC-GLUCOSE METER (BEAKER) (test code = 1538) 147 mg/dL 70-110 H TESTED AT [facility] [address] [facility] [address] RAD, CHEST, 1 VIEW, NON [id number] 19:05:00Reason for exam:->ABDOMINAL PAINPATIENT C/O LEFT SIDED [...] MDReport Verified Date/Time: 10/22/2018 19:05:02 Reading Location: [address] Reading Room HROMBIN TIME/[id number] 18:24:00* Test Item Value Reference Range Interpretation Comments PROTIME (BEAKER) (test code = 759) 11.4 seconds 9.8-12.0 INR (BEAKER) (test code = 370) 1.1 <=5.9 RECOMMENDED COUMADIN/WARFARIN INR THERAPY RANGESSTANDARD DOSE: 2.0 - 3.0 Inclu yossi: PROPHYLAXIS for venous thrombosis, systemic embolization; TREATMENT for [place] ous thrombosis and/or pulmonary embolus.HIGH RISK: Target INR is 2.5-3.5 for pat ients with mechanical heart valves.[id number] 18:24:00* Test Item Value Reference Range Interpretation Comments PARTIAL THROMBOPLASTIN TIME (BEAKER) (test code = 760) 30.1 seconds 25.8-34.5 LACTIC ACID, [id number] 18:19:00* Test Item Value Reference Range Interpretation Comments LACTATE BLOOD VENOUS (2) (BEAKER) (test code = 2872) 1.1 mmol/L 0 .5-2.2 [id number] 18:15:00* Test Item Value Reference Range Interpretation Comments MAGNESIUM (KATHARINA) (test code = 627) 2.0 mg/dL 1.5-3.0 [id number] 18:15:00* Test Item Value Reference Range Interpretation Comments PHOSPHORUS (KATHARINA) (test code = 604) 3.8 mg/dL 2.5-4.5 CT, [id number] 17:45:00FINAL REPORT ABDOMINAL AND PELVIS CT DATED [...] Ve rified Date/Time: 10/22/2018 17:45:07 Reading Location: [facility] B1 C013Y CT Body Re ading Room C METABOLIC [id number] 17:01:00* Test Item Value Reference Range Interpretation Comments SODIUM (BEAKER) (test code = 381) 133 meq/L 135-148 L POTASSIUM (BEAKER) (test code = 379) 4.3 meq/L 3.6-5.5 CHLORIDE (BEAKER) (test code = 382) 96 meq/L 98-106 L CO2 (BEAKER) (test code = 355) 28 meq/L 24-32 BLOOD UREA NITROGEN (BEAKER) (test code = 354) 10 mg/dL 10-26 CREATININE (BEAKER) (test code = 358) 0.43 mg/dL 0.50-1.20 L GLUCOSE RANDOM (BEAKER) (test code = 652) 111 mg/dL 70-110 H CALCIUM (BEAKER) (test code = 697) 8.3 mg/dL 8.5-10.5 L EGFR (BEAKER) (test code = 1092) 164 mL/min/1.73 sq m ESTIMATED GFR IS NOT ACCURATE CREATININE CLEARANCE IN PREDICTING GLOMERULAR FILTRATION RATE. ESTIMATED GFR IS NOT APPLICABLE FOR DIALYSIS PATIENTS. [id number] 17:01:00* Test Item Value Reference Range Interpretation Comments LIPASE (BEAKER) (test code = 749) 23 U/L 40-240 L HEPATIC FUNCTION [id number] 16:47:00* Test Item Value Reference Range Interpretation Comments TOTAL PROTEIN (BEAKER) (test code = 770) 6.9 gm/dL 6.0-8.5 ALBUMIN (BEAKER) (test code = 1145) 3.5 g/dL 3.5-5.0 BILIRUBIN TOTAL (BEAKER) (test code = 377) 0.2 mg/dL 0.1-1.2 BILIRUBIN DIRECT (BEAKER) (test code = 706) 0.1 mg/dL 0.0-0.4 ALKALINE PHOSPHATASE (BEAKER) (test code = 346) 230 U/L 30-115 H AST (SGOT) (BEAKER) (test code = 353) 41 U/L 5-40 H ALT (SGPT) (BEAKER) (test code = 347) 39 U/L 5-50 CBC W/PLT COUNT & AUTO [id number] 16:44:00* Test Item Value Reference Range Interpretation Comments WHITE BLOOD CELL COUNT (BEAKER) (test code = 775) 29.0 K/ L 4.0- 10.0 H RED BLOOD CELL COUNT (BEAKER) (test code = 761) 2.68 M/ L 4.00-5 .00 L HEMOGLOBIN (BEAKER) (test code = 410) 7.3 GM/DL 12.0-15.0 L HEMATOCRIT (BEAKER) (test code = 411) 23.2 % 36.0-45.0 L MEAN CORPUSCULAR VOLUME (BEAKER) (test code = 753) 86.5 fL 82. 0-99.0 MEAN CORPUSCULAR HEMOGLOBIN (BEAKER) (test code = 751) 27.1 pg 27.0-33.0 MEAN CORPUSCULAR HEMOGLOBIN CONC (BEAKER) (test code = 752) 31.4 GM/DL 32.0-36.0 L RED CELL DISTRIBUTION WIDTH (BEAKER) (test code = 412) 15.2 % 10.3-14.2 H PLATELET COUNT (BEAKER) (test code = 756) 643 K/CU MM 150-430 H MEAN PLATELET VOLUME (BEAKER) (test code = 754) 7.3 fL 6.5-10 .5 NEUTROPHILS RELATIVE PERCENT (BEAKER) (test code = 429) 83 % LYMPHOCYTES RELATIVE PERCENT (BEAKER) (test code = 430) 7 % MONOCYTES RELATIVE PERCENT (BEAKER) (test code = 431) 7 % EOSINOPHILS RELATIVE PERCENT (BEAKER) (test code = 432) 3 % BASOPHILS RELATIVE PERCENT (BEAKER) (test code = 437) 1 % NEUTROPHILS ABSOLUTE COUNT (BEAKER) (test code = 670) 23.93 K/ L 1.80-8.00 H LYMPHOCYTES ABSOLUTE COUNT (BEAKER) (test code = 414) 1.94 K/ L 1.48-4.50 MONOCYTES ABSOLUTE COUNT (BEAKER) (test code = 415) 2.09 K/ L 0. 00-1.30 H EOSINOPHILS ABSOLUTE COUNT (BEAKER) (test code = 416) 0.78 K/ L 0.00-0.50 H BASOPHILS ABSOLUTE COUNT (BEAKER) (test code = 417) 0.26 K/ L 0. 00-0.20 H POCT-GLUCOSE [id number] 12:44:00* Test Item Value Reference Range Interpretation Comments POC-GLUCOSE METER (BEAKER) (test code = 1538) 145 mg/dL 70-110 H TESTED AT [address] [address] POCT-GLUCOSE [id number] 08:12:00* Test Item Value Reference Range Interpretation Comments POC-GLUCOSE METER (BEAKER) (test code = 1538) 203 mg/dL 70-110 H TESTED AT [address] [address] [id number] 05:57:00* Test Item Value Reference Range Interpretation Comments PHOSPHORUS (BEAKER) (test code = 604) 2.4 mg/dL 2.3-4.7 [id number] 05:57:00* Test Item Value Reference Range Interpretation Comments MAGNESIUM (BEAKER) (test code = 627) 1.7 mg/dL 1.6-2.6 BASIC METABOLIC [id number] 05:57:00* Test Item Value Reference Range Interpretation Comments SODIUM (BEAKER) (test code = 381) 137 meq/L 136-145 POTASSIUM (BEAKER) (test code = 379) 4.0 meq/L 3.5-5.1 CHLORIDE (BEAKER) (test code = 382) 106 meq/L 98-107 CO2 (BEAKER) (test code = 355) 23 meq/L 22-29 BLOOD UREA NITROGEN (BEAKER) (test code = 354) 7 mg/dL 7-21 CREATININE (BEAKER) (test code = 358) 0.59 mg/dL 0.57-1.25 GLUCOSE RANDOM (BEAKER) (test code = 652) 123 mg/dL 70-105 H CALCIUM (BEAKER) (test code = 697) 8.9 mg/dL 8.4-10.2 EGFR (BEAKER) (test code = 1092) 114 mL/min/1.73 sq m ESTIMATED GFR IS NOT ACCURATE CREATININE CLEARANCE IN PREDICTING GLOMERULAR FILTRATION RATE. ESTIMATED GFR IS NOT APPLICABLE FOR DIALYSIS PATIENTS. CBC (HEMOGRAM ONLY)2018-10-20 04:50:00* Test Item Value Reference Range Interpretation Comments WHITE BLOOD CELL COUNT (BEAKER) (test code = 775) 15.0 K/ L 3.5- 10.5 H RED BLOOD CELL COUNT (BEAKER) (test code = 761) 2.83 M/ L 3.93-5 .22 L HEMOGLOBIN (BEAKER) (test code = 410) 7.6 GM/DL 11.2-15.7 L HEMATOCRIT (BEAKER) (test code = 411) 24.4 % 34.1-44.9 L MEAN CORPUSCULAR VOLUME (BEAKER) (test code = 753) 86.2 fL 79. 4-94.8 MEAN CORPUSCULAR HEMOGLOBIN (BEAKER) (test code = 751) 26.9 pg 25.6-32.2 MEAN CORPUSCULAR HEMOGLOBIN CONC (BEAKER) (test code = 752) 31.1 GM/DL 32.2-35.5 L RED CELL DISTRIBUTION WIDTH (BEAKER) (test code = 412) 15.5 % 11.7-14.4 H PLATELET COUNT (BEAKER) (test code = 756) 384 K/CU MM 150-450 MEAN PLATELET VOLUME (BEAKER) (test code = 754) 9.6 fL 9.4-12 .3 NUCLEATED RED BLOOD CELLS (BEAKER) (test code = 413) 0 /100 WBC 0 -0 POCT-GLUCOSE [id number] 20:52:00* Test Item Value Reference Range Interpretation Comments POC-GLUCOSE METER (BEAKER) (test code = 1538) 136 mg/dL 70-110 H TESTED AT [address] [address] POCT-GLUCOSE [id number] 17:54:00* Test Item Value Reference Range Interpretation Comments POC-GLUCOSE METER (BEAKER) (test code = 1538) 151 mg/dL 70-110 H TESTED AT [address] [place] [address] POCT-GLUCOSE [id number] 12:40:00* Test Item Value Reference Range Interpretation Comments POC-GLUCOSE METER (BEAKER) (test code = 1538) 124 mg/dL 70-110 H TESTED AT [place] [id number] [facility] [address] POCT-GLUCOSE [id number] 09:32:00* Test Item Value Reference Range Interpretation Comments POC-GLUCOSE METER (BEAKER) (test code = 1538) 167 mg/dL 70-110 H TESTED AT [address] [address] [id number] 06:49:00* Test Item Value Reference Range Interpretation Comments PHOSPHORUS (BEAKER) (test code = 604) 2.1 mg/dL 2.3-4.7 L [id number] 06:49:00* Test Item Value Reference Range Interpretation Comments MAGNESIUM (BEAKER) (test code = 627) 1.8 mg/dL 1.6-2.6 BASIC METABOLIC [id number] 06:49:00* Test Item Value Reference Range Interpretation Comments SODIUM (BEAKER) (test code = 381) 136 meq/L 136-145 POTASSIUM (BEAKER) (test code = 379) 3.8 meq/L 3.5-5.1 CHLORIDE (BEAKER) (test code = 382) 105 meq/L 98-107 CO2 (BEAKER) (test code = 355) 25 meq/L 22-29 BLOOD UREA NITROGEN (BEAKER) (test code = 354) 6 mg/dL 7-21 L CREATININE (BEAKER) (test code = 358) 0.60 mg/dL 0.57-1.25 GLUCOSE RANDOM (BEAKER) (test code = 652) 133 mg/dL 70-105 H CALCIUM (BEAKER) (test code = 697) 9.2 mg/dL 8.4-10.2 EGFR (BEAKER) (test code = 1092) 112 mL/min/1.73 sq m ESTIMATED GFR IS NOT ACCURATE CREATININE CLEARANCE IN PREDICTING GLOMERULAR FILTRATION RATE. ESTIMATED GFR IS NOT APPLICABLE FOR DIALYSIS PATIENTS. AMYLASE, BODY [id number] 06:36:00* Test Item Value Reference Range Interpretation Comments AMYLASE FLUID (BEAKER) (test code = 350) 26 U/L Absence of reference range indicates that normals have not been defined.Assay pe rformance has not been validated for this type of specimen.CBC (HEMOGRAM ONLY) 2018-10-19 06:16:00* Test Item Value Reference Range Interpretation Comments WHITE BLOOD CELL COUNT (BEAKER) (test code = 775) 18.5 K/ L 3.5- 10.5 H RED BLOOD CELL COUNT (BEAKER) (test code = 761) 3.02 M/ L 3.93-5 .22 L HEMOGLOBIN (BEAKER) (test code = 410) 8.3 GM/DL 11.2-15.7 L HEMATOCRIT (BEAKER) (test code = 411) 26.0 % 34.1-44.9 L MEAN CORPUSCULAR VOLUME (BEAKER) (test code = 753) 86.1 fL 79. 4-94.8 MEAN CORPUSCULAR HEMOGLOBIN (BEAKER) (test code = 751) 27.5 pg 25.6-32.2 MEAN CORPUSCULAR HEMOGLOBIN CONC (BEAKER) (test code = 752) 31.9 GM/DL 32.2-35.5 L RED CELL DISTRIBUTION WIDTH (BEAKER) (test code = 412) 15.4 % 11.7-14.4 H PLATELET COUNT (BEAKER) (test code = 756) 356 K/CU MM 150-450 MEAN PLATELET VOLUME (BEAKER) (test code = 754) 9.4 fL 9.4-12 .3 NUCLEATED RED BLOOD CELLS (BEAKER) (test code = 413) 0 /100 WBC 0 -0 POCT-GLUCOSE [id number] 21:38:00* Test Item Value Reference Range Interpretation Comments POC-GLUCOSE METER (BEAKER) (test code = 1538) 188 mg/dL 70-110 H TESTED AT [facility] [address] [facility] [address] POCT-GLUCOSE [id number] 17:15:00* Test Item Value Reference Range Interpretation Comments POC-GLUCOSE METER (BEAKER) (test code = 1538) 150 mg/dL 70-110 H TESTED AT [facility] [address] [facility] [address] POCT-GLUCOSE [id number] 12:31:00* Test Item Value Reference Range Interpretation Comments POC-GLUCOSE METER (BEAKER) (test code = 1538) 111 mg/dL 70-110 H TESTED AT [facility] [address] [facility] [address] POCT-GLUCOSE [id number] 10:22:00* Test Item Value Reference Range Interpretation Comments POC-GLUCOSE METER (BEAKER) (test code = 1538) 162 mg/dL 70-110 H TESTED AT [facility] [address] [facility] [address] URINALYSIS W/ REFLEX URINE [id number] 09:16:00* Test Item Value Reference Range Interpretation Comments COLOR (BEAKER) (test code = 470) Yellow CLARITY (BEAKER) (test code = 469) Clear SPECIFIC GRAVITY UA (BEAKER) (test code = 468) 1.015 1.001-1 .035 PH UA (BEAKER) (test code = 467) 6.5 5.0-8.0 PROTEIN UA (BEAKER) (test code = 464) 20 mg/dL Negative A GLUCOSE UA (BEAKER) (test code = 365) Negative Negative KETONES UA (BEAKER) (test code = 371) Trace Negative A BILIRUBIN UA (BEAKER) (test code = 462) Negative Negative BLOOD UA (BEAKER) (test code = 461) Trace Negative A NITRITE UA (BEAKER) (test code = 465) Negative Negative LEUKOCYTE ESTERASE UA (BEAKER) (test code = 466) Negative Negat ivonne UROBILINOGEN UA (BEAKER) (test code = 463) 0.2 mg/dL 0.2-1.0 RBC UA (BEAKER) (test code = 519) < /HPF WBC UA (BEAKER) (test code = 520) 14 /HPF BACTERIA (BEAKER) (test code = 517) Many MUCUS (BEAKER) (test code = 1574) Rare SQUAMOUS EPITHELIAL (BEAKER) (test code = 516) 13 /HPF SOURCE(BEAKER) (test code = 2795) [id number] 07:16:00* Test Item Value Reference Range Interpretation Comments PHOSPHORUS (BEAKER) (test code = 604) 1.9 mg/dL 2.3-4.7 L [id number] 07:16:00* Test Item Value Reference Range Interpretation Comments MAGNESIUM (BEAKER) (test code = 627) 1.9 mg/dL 1.6-2.6 BASIC METABOLIC [id number] 07:16:00* Test Item Value Reference Range Interpretation Comments SODIUM (BEAKER) (test code = 381) 137 meq/L 136-145 POTASSIUM (BEAKER) (test code = 379) 3.7 meq/L 3.5-5.1 CHLORIDE (BEAKER) (test code = 382) 107 meq/L 98-107 CO2 (BEAKER) (test code = 355) 22 meq/L 22-29 BLOOD UREA NITROGEN (BEAKER) (test code = 354) 8 mg/dL 7-21 CREATININE (BEAKER) (test code = 358) 0.65 mg/dL 0.57-1.25 GLUCOSE RANDOM (BEAKER) (test code = 652) 144 mg/dL 70-105 H CALCIUM (BEAKER) (test code = 697) 9.3 mg/dL 8.4-10.2 EGFR (BEAKER) (test code = 1092) 102 mL/min/1.73 sq m ESTIMATED GFR IS NOT ACCURATE CREATININE CLEARANCE IN PREDICTING GLOMERULAR FILTRATION RATE. ESTIMATED GFR IS NOT APPLICABLE FOR DIALYSIS PATIENTS. CBC (HEMOGRAM ONLY)2018-10-18 01:48:00* Test Item Value Reference Range Interpretation Comments WHITE BLOOD CELL COUNT (BEAKER) (test code = 775) 22.2 K/ L 3.5- 10.5 H RED BLOOD CELL COUNT (BEAKER) (test code = 761) 3.28 M/ L 3.93-5 .22 L HEMOGLOBIN (BEAKER) (test code = 410) 8.9 GM/DL 11.2-15.7 L HEMATOCRIT (BEAKER) (test code = 411) 28.1 % 34.1-44.9 L MEAN CORPUSCULAR VOLUME (BEAKER) (test code = 753) 85.7 fL 79. 4-94.8 MEAN CORPUSCULAR HEMOGLOBIN (BEAKER) (test code = 751) 27.1 pg 25.6-32.2 MEAN CORPUSCULAR HEMOGLOBIN CONC (BEAKER) (test code = 752) 31.7 GM/DL 32.2-35.5 L RED CELL DISTRIBUTION WIDTH (BEAKER) (test code = 412) 15.4 % 11.7-14.4 H PLATELET COUNT (BEAKER) (test code = 756) 296 K/CU MM 150-450 MEAN PLATELET VOLUME (BEAKER) (test code = 754) 9.6 fL 9.4-12 .3 NUCLEATED RED BLOOD CELLS (BEAKER) (test code = 413) 0 /100 WBC 0 -0 POCT-LACTIC ACID, [id number] 00:27:00* Test Item Value Reference Range Interpretation Comments POC-LACTIC ACID, VENOUS (BEAKER) (test code = 2805) 1.1 mmol/L 0. 9-1.7 [address]ED AT [address] [address] [id number] 22:56:00* Test Item Value Reference Range Interpretation Comments POC-SODIUM (BEAKER) (test code = 1542) 136 meq/L 135-148 TESTED AT [address] [address] [id number] 22:56:00* Test Item Value Reference Range Interpretation Comments POC-POTASSIUM (BEAKER) (test code = 1540) 3.4 meq/L 3.6-5.5 L TESTED AT [address] [address] [id number] 22:56:00* Test Item Value Reference Range Interpretation Comments POC-GLUCOSE (BEAKER) (test code = 1855) 166 mg/dL 70-110 H TESTED AT [address] [address] POCT-CALCIUM [id number] 22:56:00* Test Item Value Reference Range Interpretation Comments POC-CALCIUM IONIZED (BEAKER) (test code = 1536) 1.19 mmol/L 1.12-1 .27 TESTED AT [address] [address] [id number] 22:56:00* Test Item Value Reference Range Interpretation Comments POC-HEMATOCRIT (BEAKER) (test code = 1857) 36 % 36-45 TESTED AT [address] [address] [id number] 22:56:00* Test Item Value Reference Range Interpretation Comments POC-HEMOGLOBIN (BEAKER) (test code = 1856) 12.2 g/dL 12.0-15.0 TESTED AT [place] [id number] AT [address] [address] POCT-BLOOD GASES, [id number] 22:55:00* Test Item Value Reference Range Interpretation Comments TEMP, CELSIUS-POC (BEAKER) (test code = 1834) 38.4 FIO2-POC (BEAKER) (test code = 1835) 32 TESTED AT [address] [address] PH, VENOUS-POC (BEAKER) (test code = 1842) 7.390 7.320-7.420 PCO2, VENOUS-POC (BEAKER) (test code = 1843) 40.5 mm Hg 41.0-51.0 L PO2, VENOUS-POC (BEAKER) (test code = 1844) 32.0 mm Hg 25.0-40.0 SO2, VENOUS-POC (BEAKER) (test code = 1845) 57.0 % 40.0-70.0 HCO3, VENOUS-POC (BEAKER) (test code = 1846) 24.2 meq/L 21.0-29.0 BASE EXCESS, VENOUS-POC (BEAKER) (test code = 1847) 0.0 meq/L -2 .0-3.0 POCT-GLUCOSE [id number] 21:23:00* Test Item Value Reference Range Interpretation Comments POC-GLUCOSE METER (BEAKER) (test code = 1538) 168 mg/dL 70-110 H TESTED AT [place] [id number] [facility] [address] POCT-GLUCOSE [id number] 17:03:00* Test Item Value Reference Range Interpretation Comments POC-GLUCOSE METER (BEAKER) (test code = 1538) 165 mg/dL 70-110 H TESTED AT [address] [address] POCT-GLUCOSE [id number] 12:17:00* Test Item Value Reference Range Interpretation Comments POC-GLUCOSE METER (BEAKER) (test code = 1538) 166 mg/dL 70-110 H TESTED AT [address] [address] POCT-GLUCOSE [id number] 08:37:00* Test Item Value Reference Range Interpretation Comments POC-GLUCOSE METER (BEAKER) (test code = 1538) 170 mg/dL 70-110 H TESTED AT [address] [address] AMYLASE, BODY [id number] 08:30:00* Test Item Value Reference Range Interpretation Comments AMYLASE FLUID (BEAKER) (test code = 350) 543 U/L Absence of reference range indicates that normals have not been defined.Assay pe rformance has not been validated for this type of specimen.[id number] 06:07:00* Test Item Value Reference Range Interpretation Comments PHOSPHORUS (BEAKER) (test code = 604) 3.1 mg/dL 2.3-4.7 [id number] 06:07:00* Test Item Value Reference Range Interpretation Comments MAGNESIUM (BEAKER) (test code = 627) 1.9 mg/dL 1.6-2.6 BASIC METABOLIC [id number] 06:07:00* Test Item Value Reference Range Interpretation Comments SODIUM (BEAKER) (test code = 381) 138 meq/L 136-145 POTASSIUM (BEAKER) (test code = 379) 3.7 meq/L 3.5-5.1 CHLORIDE (BEAKER) (test code = 382) 108 meq/L 98-107 H CO2 (BEAKER) (test code = 355) 23 meq/L 22-29 BLOOD UREA NITROGEN (BEAKER) (test code = 354) 9 mg/dL 7-21 CREATININE (BEAKER) (test code = 358) 0.67 mg/dL 0.57-1.25 GLUCOSE RANDOM (BEAKER) (test code = 652) 151 mg/dL 70-105 H CALCIUM (BEAKER) (test code = 697) 8.8 mg/dL 8.4-10.2 EGFR (BEAKER) (test code = 1092) 99 mL/min/1.73 sq m ESTIMATED GFR IS NOT ACCURATE CREATININE CLEARANCE IN PREDICTING GLOMERULAR FILTRATION RATE. ESTIMATED GFR IS NOT APPLICABLE FOR DIALYSIS PATIENTS. CBC (HEMOGRAM ONLY)2018-10-17 05:37:00* Test Item Value Reference Range Interpretation Comments WHITE BLOOD CELL COUNT (BEAKER) (test code = 775) 15.9 K/ L 3.5- 10.5 H RED BLOOD CELL COUNT (BEAKER) (test code = 761) 3.45 M/ L 3.93-5 .22 L HEMOGLOBIN (BEAKER) (test code = 410) 9.3 GM/DL 11.2-15.7 L HEMATOCRIT (BEAKER) (test code = 411) 29.4 % 34.1-44.9 L MEAN CORPUSCULAR VOLUME (BEAKER) (test code = 753) 85.2 fL 79. 4-94.8 MEAN CORPUSCULAR HEMOGLOBIN (BEAKER) (test code = 751) 27.0 pg 25.6-32.2 MEAN CORPUSCULAR HEMOGLOBIN CONC (BEAKER) (test code = 752) 31.6 GM/DL 32.2-35.5 L RED CELL DISTRIBUTION WIDTH (BEAKER) (test code = 412) 15.2 % 11.7-14.4 H PLATELET COUNT (BEAKER) (test code = 756) 280 K/CU MM 150-450 MEAN PLATELET VOLUME (BEAKER) (test code = 754) 9.8 fL 9.4-12 .3 NUCLEATED RED BLOOD CELLS (BEAKER) (test code = 413) 0 /100 WBC 0 -0 POCT-GLUCOSE [id number] 21:19:00* Test Item Value Reference Range Interpretation Comments POC-GLUCOSE METER (BEAKER) (test code = 1538) 147 mg/dL 70-110 H TESTED AT [place] [id number] [facility] [address] POCT-GLUCOSE [id number] 17:29:00* Test Item Value Reference Range Interpretation Comments POC-GLUCOSE METER (BEAKER) (test code = 1538) 166 mg/dL 70-110 H TESTED AT [address] [address] BASIC METABOLIC [id number] 15:10:00* Test Item Value Reference Range Interpretation Comments SODIUM (BEAKER) (test code = 381) 139 meq/L 136-145 POTASSIUM (BEAKER) (test code = 379) 4.3 meq/L 3.5-5.1 CHLORIDE (BEAKER) (test code = 382) 111 meq/L 98-107 H CO2 (BEAKER) (test code = 355) 21 meq/L 22-29 L BLOOD UREA NITROGEN (BEAKER) (test code = 354) 13 mg/dL 7-21 CREATININE (BEAKER) (test code = 358) 0.66 mg/dL 0.57-1.25 GLUCOSE RANDOM (BEAKER) (test code = 652) 163 mg/dL 70-105 H CALCIUM (BEAKER) (test code = 697) 8.6 mg/dL 8.4-10.2 EGFR (BEAKER) (test code = 1092) 100 mL/min/1.73 sq m ESTIMATED GFR IS NOT ACCURATE CREATININE CLEARANCE IN PREDICTING GLOMERULAR FILTRATION RATE. ESTIMATED GFR IS NOT APPLICABLE FOR DIALYSIS PATIENTS. CBC (HEMOGRAM ONLY)2018-10-16 14:47:00* Test Item Value Reference Range Interpretation Comments WHITE BLOOD CELL COUNT (BEAKER) (test code = 775) 15.1 K/ L 3.5- 10.5 H RED BLOOD CELL COUNT (BEAKER) (test code = 761) 3.27 M/ L 3.93-5 .22 L HEMOGLOBIN (BEAKER) (test code = 410) 8.9 GM/DL 11.2-15.7 L HEMATOCRIT (BEAKER) (test code = 411) 27.7 % 34.1-44.9 L MEAN CORPUSCULAR VOLUME (BEAKER) (test code = 753) 84.7 fL 79. 4-94.8 MEAN CORPUSCULAR HEMOGLOBIN (BEAKER) (test code = 751) 27.2 pg 25.6-32.2 MEAN CORPUSCULAR HEMOGLOBIN CONC (BEAKER) (test code = 752) 32.1 GM/DL 32.2-35.5 L RED CELL DISTRIBUTION WIDTH (BEAKER) (test code = 412) 15.1 % 11.7-14.4 H PLATELET COUNT (BEAKER) (test code = 756) 234 K/CU MM 150-450 MEAN PLATELET VOLUME (BEAKER) (test code = 754) 9.4 fL 9.4-12 .3 NUCLEATED RED BLOOD CELLS (BEAKER) (test code = 413) 0 /100 WBC 0 -0 Sodium [id number] 17:40:00* Test Item Value Reference Range Interpretation Comments Sodium Level (test code = 2951-2) 135 136-145 L [facility] [id number] 17:40:00* Test Item Value Reference Range Interpretation Comments Potassium Level (test code = 2823-3) 3.8 3.5-5.1 [facility] HospitalChloride [id number] 17:40:00* Test Item Value Reference Range Interpretation Comments Chloride Level (test code = 2075-0) 104 98-107 [facility] HospitalCarbon Dioxide [id number] 17:40:00* Test Item Value Reference Range Interpretation Comments Carbon Dioxide Level (test code = 2028-9) 23 22-29 [facility] HospitalAnion [id number] 17:40:00* Test Item Value Reference Range Interpretation Comments Anion Gap (test code = 52797-7) 11.8 8-16 [facility] HospitalBlood Urea [id number] 17:40:00* Test Item Value Reference Range Interpretation Comments Blood Urea Nitrogen (test code = 3094-0) 10 7-26 [facility] HospitalCreatinine2019-03-21 17:40:00* Test Item Value Reference Range Interpretation Comments Creatinine (test code = 2160-0) 0.77 0.57-1.11 [facility] HospitalBUN/Creatinine [id number] 17:40:00* Test Item Value Reference Range Interpretation Comments BUN/Creatinine Ratio (test code = 3097-3) 13 - [facility] HospitalEstimat Glomerular Filtration Rate 2018-09-27 17:40:00* Test Item Value Reference Range Interpretation Comments Estimat Glomerular Filtration Rate (test code = 420646073) > 60 >60 Ranges were taken from the National Kidney Disease Education Program and the [facility] literature.Reference ranges:60 or greater: Zthfps04-55 ( for 3 consecutive months): Chronic kidney disease 15 or less: Kidney failureHouston [facility] West HospitalGlucose [id number] 17:40:00* Test Item Value Reference Range Interpretation Comments Glucose Level (test code = BON3381) 103 74-118 [facility] HospitalCalcium [id number] 17:40:00* Test Item Value Reference Range Interpretation Comments Calcium Level (test code = 78596-2) 9.9 8.4-10.2 [facility] HospitalMagnesium [id number] 17:40:00* Test Item Value Reference Range Interpretation Comments Magnesium Level (test code = 34323-1) 2.0 1.3-2.1 [facility] HospitalTotal [id number] 17:40:00* Test Item Value Reference Range Interpretation Comments Total Bilirubin (test code = 1975-2) 0.3 0.2-1.2 [facility] HospitalAspartate Amino Transf (AST/SGOT) 2018-09-27 17:40:00* Test Item Value Reference Range Interpretation Comments Aspartate Amino Transf (AST/SGOT) (test code = Aspartate Amino Transf (AST/SGOT)) 42 5-34 H [facility] HospitalAlanine Aminotransferase (ALT/SGPT) 2018-09-27 17:40:00* Test Item Value Reference Range Interpretation Comments Alanine Aminotransferase (ALT/SGPT) (test code = 1742-6) 81 0-55 H [facility] HospitalTotal Ldzawrt5637-98-12 17:40:00* Test Item Value Reference Range Interpretation Comments Total Protein (test code = 2885-2) 7.9 6.5-8.1 [facility] HospitalAlbumin2019-03-21 17:40:00* Test Item Value Reference Range Interpretation Comments Albumin (test code = 1751-7) 4.0 3.5-5.0 [facility] HospitalGlobulin2019-03-21 17:40:00* Test Item Value Reference Range Interpretation Comments Globulin (test code = 63191-2) 3.9 2.3-3.5 H [facility] HospitalAlbumin/Globulin Aoguf4413-59-33 17:40:00 * Test Item Value Reference Range Interpretation Comments Albumin/Globulin Ratio (test code = 1759-0) 1.0 0.8-2.0 [facility] HospitalAlkaline Wmvekamekur2680-99-96 17:40:00* Test Item Value Reference Range Interpretation Comments Alkaline Phosphatase (test code = 6768-6) 150 40-150 [facility] HospitalAmylase Yxmrk6853-82-14 17:40:00* Test Item Value Reference Range Interpretation Comments Amylase Level (test code = 1798-8) 34 25-125 [facility] HospitalLipase2019-03-21 17:40:00* Test Item Value Reference Range Interpretation Comments Lipase (test code = 3040-3) < 4 8-78 L [facility] HospitalMagnesium Dlahl9653-60-05 17:40:00* Test Item Value Reference Range Interpretation Comments Magnesium Level (test code = 25233-4) 2.0 1.3-2.1 [facility] HospitalAmylase Zcawp5922-87-41 17:40:00* Test Item Value Reference Range Interpretation Comments Amylase Level (test code = 1798-8) 34 25-125 [facility] HospitalLactic Acid Mwsuh7417-96-13 17:30:00* Test Item Value Reference Range Interpretation Comments Lactic Acid Level (test code = Lactic Acid Level) 9.7 4.5- 19.8 [facility] HospitalLactic Acid Ycctm2537-63-62 17:30:00* Test Item Value Reference Range Interpretation Comments Lactic Acid Level (test code = Lactic Acid Level) 9.7 4.5- 19.8 [facility] HospitalWhite Blood Srqnc9275-74-32 17:19:00* Test Item Value Reference Range Interpretation Comments White Blood Count (test code = 6690-2) 5.01 4.8-10.8 [facility] HospitalRed Blood Ltisx4608-82-77 17:19:00* Test Item Value Reference Range Interpretation Comments Red Blood Count (test code = 789-8) 4.04 3.6-5.1 [facility] HospitalHemoglobin2019-03-21 17:19:00* Test Item Value Reference Range Interpretation Comments Hemoglobin (test code = 59942-3) 10.9 12.0-16.0 L [facility] HospitalHematocrit2019-03-21 17:19:00* Test Item Value Reference Range Interpretation Comments Hematocrit (test code = 4544-3) 34.2 34.2-44.1 [facility] HospitalMean Corpuscular Guztte7899-93-40 17:19:00* Test Item Value Reference Range Interpretation Comments Mean Corpuscular Volume (test code = 787-2) 84.7 81-99 [facility] HospitalMean Corpuscular Blqyazjedl7745-94-62 17:19:00* Test Item Value Reference Range Interpretation Comments Mean Corpuscular Hemoglobin (test code = 785-6) 27.0 28-32 L [facility] HospitalMean Corpuscular Hemoglobin Concent 2018-09-27 17:19:00* Test Item Value Reference Range Interpretation Comments Mean Corpuscular Hemoglobin Concent (test code = 786-4) 31.9 31-35 [facility] HospitalRed Cell Distribution Anwok3829-98-42 17:19:00* Test Item Value Reference Range Interpretation Comments Red Cell Distribution Width (test code = 66179-6) 16.3 11.7 -14.4 H [facility] HospitalPlatelet Xckgs2247-48-07 17:19:00* Test Item Value Reference Range Interpretation Comments Platelet Count (test code = 777-3) 251 140-360 [facility] HospitalNeutrophils (%) (Auto)2018-09-27 17:19:00 * Test Item Value Reference Range Interpretation Comments Neutrophils (%) (Auto) (test code = 27154-7) 59.3 38.7-80.0 [facility] HospitalLymphocytes (%) (Auto)2018-09-27 17:19:00 * Test Item Value Reference Range Interpretation Comments Lymphocytes (%) (Auto) (test code = 736-9) 30.3 18.0-39.1 [facility] HospitalMonocytes (%) (Auto)2018-09-27 17:19:00* Test Item Value Reference Range Interpretation Comments Monocytes (%) (Auto) (test code = 5905-5) 6.6 4.4-11.3 [facility] HospitalEosinophils (%) (Auto)2018-09-27 17:19:00 * Test Item Value Reference Range Interpretation Comments Eosinophils (%) (Auto) (test code = 713-8) 3.2 0.0-6.0 [facility] HospitalBasophils (%) (Auto)2018-09-27 17:19:00* Test Item Value Reference Range Interpretation Comments Basophils (%) (Auto) (test code = 706-2) 0.2 0.0-1.0 [facility] HospitalIM GRANULOCYTES %2018-09-27 17:19:00* Test Item Value Reference Range Interpretation Comments IM GRANULOCYTES % (test code = IM GRANULOCYTES %) 0.4 0.0- 1.0 [facility] HospitalNeutrophils # (Auto)2018-09-27 17:19:00* Test Item Value Reference Range Interpretation Comments Neutrophils # (Auto) (test code = 751-8) 3.0 2.1-6.9 [facility] HospitalLymphocytes # (Auto)2018-09-27 17:19:00* Test Item Value Reference Range Interpretation Comments Lymphocytes # (Auto) (test code = 52502-2) 1.5 1.0-3.2 [facility] HospitalMonocytes # (Auto)2018-09-27 17:19:00* Test Item Value Reference Range Interpretation Comments Monocytes # (Auto) (test code = 742-7) 0.3 0.2-0.8 [facility] HospitalEosinophils # (Auto)2018-09-27 17:19:00* Test Item Value Reference Range Interpretation Comments Eosinophils # (Auto) (test code = 711-2) 0.2 0.0-0.4 [facility] HospitalBasophils # (Auto)2018-09-27 17:19:00* Test Item Value Reference Range Interpretation Comments Basophils # (Auto) (test code = 704-7) 0.0 0.0-0.1 [facility] HospitalAbsolute Immature Granulocyte (auto 2018-09-27 17:19:00* Test Item Value Reference Range Interpretation Comments Absolute Immature Granulocyte (auto (may t code = Absolute Immature Granulocyte (auto) 0.02 0-0.1 [facility] HospitalUrine [id number] 15:23:00* Test Item Value Reference Range Interpretation Comments Urine WBC (test code = 5821-4) NONE 0-5 [facility] HospitalUrine UBV3905-86-21 15:23:00* Test Item Value Reference Range Interpretation Comments Urine RBC (test code = 15011-8) 0-5 0-5 [facility] HospitalUrine Ukgxfrld5311-47-96 15:23:00* Test Item Value Reference Range Interpretation Comments Urine Bacteria (test code = 73534-3) MANY NONE H [facility] HospitalUrine Epithelial Bkkvk6401-54-87 15:23:00 * Test Item Value Reference Range Interpretation Comments Urine Epithelial Cells (test code = 59342-7) MODERATE NONE [facility] HospitalUrine Renal Epithelial Ezwnu0653-75-14 15:23:00* Test Item Value Reference Range Interpretation Comments Urine Renal Epithelial Cells (test code = 87225-8) FEW NON E H [facility] HospitalUrine Renal Epithelial Uuxro1892-13-65 15:23:00* Test Item Value Reference Range Interpretation Comments Urine Renal Epithelial Cells (test code = 65602-6) FEW NON E H [facility] HospitalUrine Ldwv2655-52-05 15:17:00* Test Item Value Reference Range Interpretation Comments Urine Test (test code = 2106-3) NEGATIVE NEGATIVE [facility] HospitalUrine Yxdf1447-04-52 15:17:00* Test Item Value Reference Range Interpretation Comments Urine Test (test code = 2106-3) NEGATIVE NEGATIVE [facility] HospitalUrine Qvefv5067-20-06 15:16:00* Test Item Value Reference Range Interpretation Comments Urine Color (test code = 5778-6) YELLOW YELLOW [facility] HospitalUrine Ymchjau5531-93-94 15:16:00* Test Item Value Reference Range Interpretation Comments Urine Clarity (test code = 78667-7) SL CLOUDY CLEAR [facility] HospitalUrine Specific Rgfkipp9734-07-65 15:16:00 * Test Item Value Reference Range Interpretation Comments Urine Specific [place] (test code = 5811-5) 1.005 1.010-1.02 5 L [facility] HospitalUrine [id number] 15:16:00* Test Item Value Reference Range Interpretation Comments Urine pH (test code = 47397-1) 6 5-7 [facility] HospitalUrine Leukocyte Kzqpalop2106-51-05 15:16:00* Test Item Value Reference Range Interpretation Comments Urine Leukocyte Esterase (test code = 5799-2) NEGATIVE NEGATIVE [facility] HospitalUrine Lcltzlh3103-77-87 15:16:00* Test Item Value Reference Range Interpretation Comments Urine Nitrite (test code = 47792-9) NEGATIVE NEGATIVE [facility] HospitalUrine Jnjyspk4002-69-66 15:16:00* Test Item Value Reference Range Interpretation Comments Urine Protein (test code = 5804-0) NEGATIVE NEGATIVE [facility] HospitalUrine Glucose (UA)2018-09-27 15:16:00* Test Item Value Reference Range Interpretation Comments Urine Glucose (UA) (test code = 2349-9) NEGATIVE NEGATIVE [facility] HospitalUrine Kqcjhbd4665-88-32 15:16:00* Test Item Value Reference Range Interpretation Comments Urine Ketones (test code = 15350-5) NEGATIVE NEGATIVE [facility] HospitalUrine Vpnqpgmhgrjv9016-84-87 15:16:00* Test Item Value Reference Range Interpretation Comments Urine Urobilinogen (test code = 00053-3) 0.2 0.2-1 [facility] HospitalUrine Kipzwubfe0688-12-64 15:16:00* Test Item Value Reference Range Interpretation Comments Urine Bilirubin (test code = 1978-6) NEGATIVE NEGATIVE [facility] HospitalUrine Rliix1152-28-06 15:16:00* Test Item Value Reference Range Interpretation Comments Urine Blood (test code = 89127-6) TRACE NEGATIVE H [facility] HospitalMR, ABDOMEN, [id number] 17:19:00FINAL REPORT MRI of the abdomen with and without contrast, MRCP Clinical History: C25.9 Technique: Multiplanar and multisequence MR images of the abdomen are obtained before and after intravenous contrast administrat ion. Contrast is administered to evaluate neoplasm and vasculature. Multiplanar and multisequence MR images of the biliary system are obtained, with dedicated [facility] protocol and images. In addition, 3 dimensional reformatted images of the bi liary system are obtained to evaluate the biliary anatomy. Comparison: Multipl e prior CTs, most recent exam is dated July 15, 2018 Discussion: Liver is jorge rely fatty. No liver mass is identified. Status post cholecystectomy. No biliary ductal dilatation. CBD measures 3 mm. No ductal filling defect is identified. H epatic vasculature is patent. There is marked atrophy of the pancreatic body and tail, which has progressed compared to more remote prior exams. No evidence of ductal dilatation. No peripancreatic fluid. There is minimal residual soft tissu e prominence surrounding the common hepatic artery and abuts the main portal vei n grossly unchanged when compared to the May [...] Status post cholecystectomy. Splenic vein thrombosis. Signed: Rea Pedraza port Verified Date/Time: 08/27/2018 17:19:06 Reading Location: [address] Reading Room Electronically signed by: REA PEDRAZA M.D. 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 Signed: Rea Pedrazaeport Verified Date/Time: 08/27/2018 16:5 3:53 Reading Location: [address] Radiology Reading Room Electronicall y signed by: REA PEDRAZA M.D. on 08/27/2018 04:53 PM [id number]-[id number] 15:07:00* Test Item Value Reference Range Interpretation Comments POC-CREATININE (KATHARINA) (test code = 1859) 0.6 mg/dL 0.6-1.3 TESTED AT [facility] [address] [facility] [address] POC-EGFR (KATHARINA) (test code = 1860) 112 mL/min/1.73M2 ANG, REPL CVC/TUNNELED W/PORT/[id number] 20:04:00Reason for exam:->Port revision needed per radiology, [...] chest Port-A-Cath as described. Signed: Lowell Louis Verified Date/Time: 08/10/2018 20:04:57 Reading Location: [place] [id number] Angio Body Reading Room Total Wfjwjqgbm5526-76-51 04:59:00* Test Item Value Reference Range Interpretation Comments Total Bilirubin (test code = 1974-2) 0.8 0.2-1.2 [facility] HospitalTotal Kpsldisqc1073-39-31 04:59:00* Test Item Value Reference Range Interpretation Comments Total Bilirubin (test code = 1974-2) 0.8 0.2-1.2 [facility] HospitalCreatine Kinase [id number] 04:49:00* Test Item Value Reference Range Interpretation Comments Creatine Kinase MB (test code = 83820-1) 0.50 0-5.[address] [facility] [place] [id number] 04:49:00* Test Item Value Reference Range Interpretation Comments Troponin I (test code = PKZ3793) < 0.001 0-0.300 [facility] HospitalCreatine Kinase [id number] 04:49:00* Test Item Value Reference Range Interpretation Comments Creatine Kinase MB (test code = 94883-1) 0.50 0-5.0 [place] [address]2019-01-19 04:49:00* Test Item Value Reference Range Interpretation Comments Troponin I (test code = BIR9221) < 0.001 0-0.300 [facility] HospitalCreatine Kinase [id number] 04:49:00* Test Item Value Reference Range Interpretation Comments Creatine Kinase MB (test code = 62357-8) 0.50 0-5.0 [place] [address]2019-01-19 04:49:00* Test Item Value Reference Range Interpretation Comments Troponin I (test code = MED9270) < 0.001 0-0.300 [facility] HospitalCreatine Kinase [id number] 04:49:00* Test Item Value Reference Range Interpretation Comments Creatine Kinase MB (test code = 40814-0) 0.50 0-5.0 [place] [address]2019-01-19 04:49:00* Test Item Value Reference Range Interpretation Comments Troponin I (test code = OTJ6141) < 0.001 0-0.300 [facility] HospitalProthrombin Cjlv9130-24-34 04:35:00* Test Item Value Reference Range Interpretation Comments Prothrombin Time (test code = 5902-2) 13.1 11.9-14.5 [facility] HospitalProthromb Time International Ratio 2018-07-28 04:35:00* Test Item Value Reference Range Interpretation Comments Prothromb Time International Ratio (test code = 6301-6) 0.91 Oral Anticoagulant Therapy INR Values:1. Low Intensity Therapy 1.5 - 2.02 . Moderate Intensity Therapy 2.0 - 3.03. High Intensity Therapy(1) 2.5 - 3. 54. High Intensity Therapy(2) 3.0 - 4.05. Panic Value INR > 5.0 [facility] HospitalActivated Partial Thromboplast Time 2018-07-28 04:35:00* Test Item Value Reference Range Interpretation Comments Activated Partial Thromboplast Time (test code = 58946-2) 29.4 23.8-35.5 [facility] HospitalProthrombin Hylv9619-29-49 04:35:00* Test Item Value Reference Range Interpretation Comments Prothrombin Time (test code = 5902-2) 13.1 11.9-14.5 [facility] HospitalProthromb Time International Ratio 2018-07-28 04:35:00* Test Item Value Reference Range Interpretation Comments Prothromb Time International Ratio (test code = 6301-6) 0.91 Oral Anticoagulant Therapy INR Values:1. Low Intensity Therapy 1.5 - 2.02 . Moderate Intensity Therapy 2.0 - 3.03. High Intensity Therapy(1) 2.5 - 3. 54. High Intensity Therapy(2) 3.0 - 4.05. Panic Value INR > 5.0 [facility] HospitalActivated Partial Thromboplast Time 2018-07-28 04:35:00* Test Item Value Reference Range Interpretation Comments Activated Partial Thromboplast Time (test code = 19982-0) 29.4 23.8-35.5 [facility] HospitalProthrombin Vntr4509-30-45 04:35:00* Test Item Value Reference Range Interpretation Comments Prothrombin Time (test code = 5902-2) 13.1 11.9-14.5 [facility] HospitalProthromb Time International Ratio 2018-07-28 04:35:00* Test Item Value Reference Range Interpretation Comments Prothromb Time International Ratio (test code = 6301-6) 0.91 Oral Anticoagulant Therapy INR Values:1. Low Intensity Therapy 1.5 - 2.02 . Moderate Intensity Therapy 2.0 - 3.03. High Intensity Therapy(1) 2.5 - 3. 54. High Intensity Therapy(2) 3.0 - 4.05. Panic Value INR > 5.0 [facility] HospitalActivated Partial Thromboplast Time 2018-07-28 04:35:00* Test Item Value Reference Range Interpretation Comments Activated Partial Thromboplast Time (test code = 72306-5) 29.4 23.8-35.5 [facility] HospitalProthrombin Gpkt4556-57-78 04:35:00* Test Item Value Reference Range Interpretation Comments Prothrombin Time (test code = 5902-2) 13.1 11.9-14.5 [facility] HospitalProthromb Time International Ratio 2018-07-28 04:35:00* Test Item Value Reference Range Interpretation Comments Prothromb Time International Ratio (test code = 6301-6) 0.91 Oral Anticoagulant Therapy INR Values:1. Low Intensity Therapy 1.5 - 2.02 . Moderate Intensity Therapy 2.0 - 3.03. High Intensity Therapy(1) 2.5 - 3. 54. High Intensity Therapy(2) 3.0 - 4.05. Panic Value INR > 5.0 [facility] HospitalActivated Partial Thromboplast Time 2018-07-28 04:35:00* Test Item Value Reference Range Interpretation Comments Activated Partial Thromboplast Time (test code = 78412-6) 29.4 23.8-35.5 [facility] Xmngz4206-98-02 04:34:00* Test Item Value Reference Range Interpretation Comments Sodium Level (test code = 2951-2) 137 136-145 [facility] HospitalPotassium Yazts7398-70-29 04:34:00* Test Item Value Reference Range Interpretation Comments Potassium Level (test code = 2823-3) 3.9 3.5-5.1 [facility] HospitalChloride Pciwn0525-96-80 04:34:00* Test Item Value Reference Range Interpretation Comments Chloride Level (test code = 2075-0) 108 98-107 H [facility] HospitalCarbon Dioxide Lodfa9319-92-71 04:34:00* Test Item Value Reference Range Interpretation Comments Carbon Dioxide Level (test code = 2028-9) 20 22-29 L [facility] HospitalAnion Rvv1362-03-00 04:34:00* Test Item Value Reference Range Interpretation Comments Anion Gap (test code = 47038-4) 12.9 8-16 [facility] HospitalBlood Urea Encwuyvk7992-51-15 04:34:00* Test Item Value Reference Range Interpretation Comments Blood Urea Nitrogen (test code = 3094-0) 8 7-26 [facility] HospitalCreatinine2019-01-19 04:34:00* Test Item Value Reference Range Interpretation Comments Creatinine (test code = 2160-0) 0.78 0.57-1.11 [facility] HospitalBUN/Creatinine Equek9934-16-49 04:34:00* Test Item Value Reference Range Interpretation Comments BUN/Creatinine Ratio (test code = 3097-3) 10 6-25 [facility] HospitalEstimat Glomerular Filtration Rate 2018-07-28 04:34:00* Test Item Value Reference Range Interpretation Comments Estimat Glomerular Filtration Rate (test code = 752835767) > 60 >60 Ranges were taken from the National Kidney Disease Education Program and the [facility] literature.Reference ranges:60 or greater: Kjxlws96-51 ( for 3 consecutive months): Chronic kidney disease 15 or less: Kidney failureHouston Methodist West HospitalGlucose Fguca9008-46-09 04:34:00* Test Item Value Reference Range Interpretation Comments Glucose Level (test code = QCV1455) 100 74-118 [facility] HospitalCalcium Ugczb8781-46-42 04:34:00* Test Item Value Reference Range Interpretation Comments Calcium Level (test code = 40405-0) 9.0 8.4-10.2 [facility] HospitalMagnesium Acpzc1058-62-72 04:34:00* Test Item Value Reference Range Interpretation Comments Magnesium Level (test code = 11612-6) 2.0 1.3-2.1 [facility] HospitalAspartate Amino Transf (AST/SGOT) 2018-07-28 04:34:00* Test Item Value Reference Range Interpretation Comments Aspartate Amino Transf (AST/SGOT) (test code = Aspartate Amino Transf (AST/SGOT)) 456 5-34 H [facility] HospitalAlanine Aminotransferase (ALT/SGPT) 2018-07-28 04:34:00* Test Item Value Reference Range Interpretation Comments Alanine Aminotransferase (ALT/SGPT) (test code = 1742-6) 174 0-55 H [facility] HospitalTotal Wpgcdcx2616-09-61 04:34:00* Test Item Value Reference Range Interpretation Comments Total Protein (test code = 2885-2) 7.0 6.5-8.1 [facility] HospitalAlbumin2019-01-19 04:34:00* Test Item Value Reference Range Interpretation Comments Albumin (test code = 1751-7) 3.8 3.5-5.0 [facility] HospitalGlobulin2019-01-19 04:34:00* Test Item Value Reference Range Interpretation Comments Globulin (test code = 77390-5) 3.2 2.3-3.5 [facility] HospitalAlbumin/Globulin Lishf7838-62-50 04:34:00 * Test Item Value Reference Range Interpretation Comments Albumin/Globulin Ratio (test code = 1759-0) 1.2 0.8-2.0 [facility] HospitalAlkaline Nmqislyeeqq1775-04-55 04:34:00* Test Item Value Reference Range Interpretation Comments Alkaline Phosphatase (test code = 6768-6) 142 40-150 [facility] HospitalCreatine Hiwdjw2372-65-41 04:34:00* Test Item Value Reference Range Interpretation Comments Creatine Kinase (test code = 2157-6) 80 29-168 [facility] HospitalAmylase Rpjdp0985-21-78 04:34:00* Test Item Value Reference Range Interpretation Comments Amylase Level (test code = 1798-8) 36 25-125 [facility] HospitalLipase2019-01-19 04:34:00* Test Item Value Reference Range Interpretation Comments Lipase (test code = 3040-3) 7 8-78 L [facility] Campusodium Iupdg9325-17-33 04:34:00* Test Item Value Reference Range Interpretation Comments Sodium Level (test code = 2951-2) 137 136-145 [facility] HospitalPotassium Ttzpy9039-43-01 04:34:00* Test Item Value Reference Range Interpretation Comments Potassium Level (test code = 2823-3) 3.9 3.5-5.1 [facility] HospitalChloride Cauje3102-01-05 04:34:00* Test Item Value Reference Range Interpretation Comments Chloride Level (test code = 2075-0) 108 98-107 H [facility] HospitalCarbon Dioxide Uwace5825-68-38 04:34:00* Test Item Value Reference Range Interpretation Comments Carbon Dioxide Level (test code = 2028-9) 20 22-29 L [facility] HospitalAnion Fep5819-23-15 04:34:00* Test Item Value Reference Range Interpretation Comments Anion Gap (test code = 07782-8) 12.9 8-16 [facility] HospitalBlood Urea Wxlnhivq1800-82-54 04:34:00* Test Item Value Reference Range Interpretation Comments Blood Urea Nitrogen (test code = 3094-0) 8 7-26 [facility] HospitalCreatinine2019-01-19 04:34:00* Test Item Value Reference Range Interpretation Comments Creatinine (test code = 2160-0) 0.78 0.57-1.11 [facility] HospitalBUN/Creatinine Gnpim9555-66-12 04:34:00* Test Item Value Reference Range Interpretation Comments BUN/Creatinine Ratio (test code = 3097-3) 10 6-25 [facility] HospitalEstimat Glomerular Filtration Rate 2018-07-28 04:34:00* Test Item Value Reference Range Interpretation Comments Estimat Glomerular Filtration Rate (test code = 077440251) > 60 >60 Ranges were taken from the National Kidney Disease Education Program and the [facility] Kid[facility] Foundation literature.Reference ranges:60 or greater: Blrbuj74-75 ( for 3 consecutive months): Chronic kidney disease 15 or less: Kidney failureHouston Methodist West HospitalGlucose Ggkrr9112-45-68 04:34:00* Test Item Value Reference Range Interpretation Comments Glucose Level (test code = DHL8642) 100 74-118 [facility] HospitalCalcium Zdmnq6504-26-64 04:34:00* Test Item Value Reference Range Interpretation Comments Calcium Level (test code = 53681-0) 9.0 8.4-10.2 [facility] HospitalMagnesium Gkpfc0301-90-69 04:34:00* Test Item Value Reference Range Interpretation Comments Magnesium Level (test code = 97631-9) 2.0 1.3-2.1 [facility] HospitalAspartate Amino Transf (AST/SGOT) 2018-07-28 04:34:00* Test Item Value Reference Range Interpretation Comments Aspartate Amino Transf (AST/SGOT) (test code = Aspartate Amino Transf (AST/SGOT)) 456 5-34 H [facility] HospitalAlanine Aminotransferase (ALT/SGPT) 2018-07-28 04:34:00* Test Item Value Reference Range Interpretation Comments Alanine Aminotransferase (ALT/SGPT) (test code = 1742-6) 174 0-55 [facility] [facility] G[facility]spna9091-94-68 04:34:00* Test Item Value Reference Range Interpretation Comments Total Protein (test code = 2885-2) 7.0 6.5-8.1 [facility] 04:34:[facility]* Test Item Value Reference Range Interpretation Comments Albumin (test code = 1751-7) 3.8 3.5-5.0 [facility]Globulin2019-[facility] 04:34:00* Test Item Value Reference Range Interpretation Comments Globulin (test code = 87189-7) 3.2 2.3-3.5 [facility] HospitalAlbumin/Globulin Olrnm5798-60-24 04:34:00 * Test Item Value Reference Range Interpretation Comments Albumin/Globulin Ratio (test code = 1759-0) 1.2 0.8-2.0 [facility] HospitalAlkaline Xaakowdfwyg7046-85-54 04:34:00* Test Item Value Reference Range Interpretation Comments Alkaline Phosphatase (test code = 6768-6) 142 40-150 [facility] HospitalCreatine Xkqttr2810-38-05 04:34:00* Test Item Value Reference Range Interpretation Comments Creatine Kinase (test code = 2157-6) 80 29-168 [facility] HospitalAmylase Yljbx0855-91-97 04:34:00* Test Item Value Reference Range Interpretation Comments Amylase Level (test code = 1798-8) 36 25-125 [facility]Lipase2019-01-[facility] 04:34:00* Test Item Value Reference Range Interpretation Comments Lipase (test code = 3040-3) 7 8-78 L [facility] HospitalCreatine Meorij9881-77-45 04:34:00* Test Item Value Reference Range Interpretation Comments Creatine Kinase (test code = 2157-6) 80 29-168 [facility] HospitalCreatine Vemhsu2423-23-42 04:34:00* Test Item Value Reference Range Interpretation Comments Creatine Kinase (test code = 2157-6) 80 29-168 [facility] HospitalUrine ILW1632-17-92 04:29:00* Test Item Value Reference Range Interpretation Comments Urine WBC (test code = 5821-4) 11-20 0-5 H [facility] HospitalU[facility] DFN9879-50-07 04:29:00* Test Item Value Reference Range Interpretation Comments Urine RBC (test code = 43396-4) 0-5 0-5 [facility] Ykrncgyp7600-33-61 04:29:00* Test Item Value Reference Range Interpretation Comments Urine Bacteria (test code = 80681-4) MANY NONE H [facility] HospitalU[facility] Epithelial Nnmfu1622-72-75 04:29:00 * Test Item Value Reference Range Interpretation Comments Urine Epithelial Cells (test code = 91560-2) MANY NONE [facility] HospitalU[facility] [id number] 04:29:00* Test Item Value Reference Range Interpretation Comments Urine WBC (test code = 5821-4) 11-20 0-5 H [facility] HospitalU[facility] [id number] 04:29:00* Test Item Value Reference Range Interpretation Comments Urine RBC (test code = 25668-1) 0-5 0-5 [facility] Qjtvqdya7419-90-78 04:29:00* Test Item Value Reference Range Interpretation Comments Urine Bacteria (test code = 24180-6) MANY NONE H [facility] HospitalU[facility] Epithelial Sapba2439-62-33 04:29:00 * Test Item Value Reference Range Interpretation Comments Urine Epithelial Cells (test code = 11705-6) MANY NONE [facility] HospitalWhite Blood Hlxve2230-86-33 04:25:00* Test Item Value Reference Range Interpretation Comments White Blood Count (test code = 6690-2) 3.47 4.8-10.8 L [facility] HospitalRed Blood Oypkm2366-84-55 04:25:00* Test Item Value Reference Range Interpretation Comments Red Blood Count (test code = 789-8) 3.86 3.6-5.1 [facility] HospitalHemoglobin2019-01-19 04:25:00* Test Item Value Reference Range Interpretation Comments Hemoglobin (test code = 36282-9) 10.3 12.0-16.0 L [facility] HospitalHematocrit2019-01-19 04:25:00* Test Item Value Reference Range Interpretation Comments Hematocrit (test code = 4544-3) 32.1 34.2-44.1 L [facility] HospitalMean Corpuscular Kqhtfj5564-25-51 04:25:00* Test Item Value Reference Range Interpretation Comments Mean Corpuscular Volume (test code = 787-2) 83.2 81-99 [facility] HospitalMean Corpuscular Dknsbpqvml4538-65-37 04:25:00* Test Item Value Reference Range Interpretation Comments Mean Corpuscular Hemoglobin (test code = 785-6) 26.7 28-32 L [facility] HospitalMean Corpuscular Hemoglobin Concent 2018-07-28 04:25:00* Test Item Value Reference Range Interpretation Comments Mean Corpuscular Hemoglobin Concent (test code = 786-4) 32.1 31-35 [facility] HospitalRed Cell Distribution Ewipf3907-11-13 04:25:00* Test Item Value Reference Range Interpretation Comments Red Cell Distribution Width (test code = 60806-1) 14.8 11.7 -14.4 H [facility] HospitalPlatelet Imslw5670-47-68 04:25:00* Test Item Value Reference Range Interpretation Comments Platelet Count (test code = 777-3) 167 140-360 [facility] HospitalNeutrophils (%) (Auto)2018-07-28 04:25:00 * Test Item Value Reference Range Interpretation Comments Neutrophils (%) (Auto) (test code = 15373-6) 53.6 38.7-80.0 [facility] HospitalLymphocytes (%) (Auto)2018-07-28 04:25:00 * Test Item Value Reference Range Interpretation Comments Lymphocytes (%) (Auto) (test code = 736-9) 34.6 18.0-39.1 [facility] HospitalMonocytes (%) (Auto)2018-07-28 04:25:00* Test Item Value Reference Range Interpretation Comments Monocytes (%) (Auto) (test code = 5905-5) 6.9 4.4-11.3 [facility] HospitalEosinophils (%) (Auto)2018-07-28 04:25:00 * Test Item Value Reference Range Interpretation Comments Eosinophils (%) (Auto) (test code = 713-8) 4.6 0.0-6.0 [facility] HospitalBasophils (%) (Auto)2018-07-28 04:25:00* Test Item Value Reference Range Interpretation Comments Basophils (%) (Auto) (test code = 706-2) 0.3 0.0-1.0 [facility] HospitalIM GRANULOCYTES %2018-07-28 04:25:00* Test Item Value Reference Range Interpretation Comments IM GRANULOCYTES % (test code = IM GRANULOCYTES %) 0.0 0.0- 1.0 [facility] HospitalNeutrophils # (Auto)2018-07-28 04:25:00* Test Item Value Reference Range Interpretation Comments Neutrophils # (Auto) (test code = 751-8) 1.9 2.1-6.9 L [facility] HospitalLymphocytes # (Auto)2018-07-28 04:25:00* Test Item Value Reference Range Interpretation Comments Lymphocytes # (Auto) (test code = 87344-8) 1.2 1.0-3.2 [facility] HospitalMonocytes # (Auto)2018-07-28 04:25:00* Test Item Value Reference Range Interpretation Comments Monocytes # (Auto) (test code = 742-7) 0.2 0.2-0.8 [facility] HospitalEosinophils # (Auto)2018-07-28 04:25:00* Test Item Value Reference Range Interpretation Comments Eosinophils # (Auto) (test code = 711-2) 0.2 0.0-0.4 [facility] HospitalBasophils # (Auto)2018-07-28 04:25:00* Test Item Value Reference Range Interpretation Comments Basophils # (Auto) (test code = 704-7) 0.0 0.0-0.1 [facility] HospitalAbsolute Immature Granulocyte (auto 2018-07-28 04:25:00* Test Item Value Reference Range Interpretation Comments Absolute Immature Granulocyte (auto (may t code = Absolute Immature Granulocyte (auto) 0 0-0.1 [facility] HospitalWhite Blood Vbhnh6355-51-00 04:25:00* Test Item Value Reference Range Interpretation Comments White Blood Count (test code = 6690-2) 3.47 4.8-10.8 L [facility] HospitalRed Blood Xpqnq1732-66-40 04:25:00* Test Item Value Reference Range Interpretation Comments Red Blood Count (test code = 789-8) 3.86 3.6-5.1 [facility] HospitalHemoglobin2019-01-19 04:25:00* Test Item Value Reference Range Interpretation Comments Hemoglobin (test code = 86652-8) 10.3 12.0-16.0 L [facility] HospitalHematocrit2019-01-19 04:25:00* Test Item Value Reference Range Interpretation Comments Hematocrit (test code = 4544-3) 32.1 34.2-44.1 L [facility] HospitalMean Corpuscular Riplnv0399-92-57 04:25:00* Test Item Value Reference Range Interpretation Comments Mean Corpuscular Volume (test code = 787-2) 83.2 81-99 [facility] HospitalMean Corpuscular Wesquejmtf6382-59-39 04:25:00* Test Item Value Reference Range Interpretation Comments Mean Corpuscular Hemoglobin (test code = 785-6) 26.7 28-32 L [facility] HospitalMean Corpuscular Hemoglobin Concent 2018-07-28 04:25:00* Test Item Value Reference Range Interpretation Comments Mean Corpuscular Hemoglobin Concent (test code = 786-4) 32.1 31-35 [facility] HospitalRed Cell Distribution Apzpx8567-05-16 04:25:00* Test Item Value Reference Range Interpretation Comments Red Cell Distribution Width (test code = 74914-8) 14.8 11.7 -14.4 H [facility] HospitalPlatelet Pujxd6302-56-15 04:25:00* Test Item Value Reference Range Interpretation Comments Platelet Count (test code = 777-3) 167 140-360 [facility] HospitalNeutrophils (%) (Auto)2018-07-28 04:25:00 * Test Item Value Reference Range Interpretation Comments Neutrophils (%) (Auto) (test code = 74990-6) 53.6 38.7-80.0 [facility] HospitalLymphocytes (%) (Auto)2018-07-28 04:25:00 * Test Item Value Reference Range Interpretation Comments Lymphocytes (%) (Auto) (test code = 736-9) 34.6 18.0-39.1 [facility] HospitalMonocytes (%) (Auto)2018-07-28 04:25:00* Test Item Value Reference Range Interpretation Comments Monocytes (%) (Auto) (test code = 5905-5) 6.9 4.4-11.3 [facility] HospitalEosinophils (%) (Auto)2018-07-28 04:25:00 * Test Item Value Reference Range Interpretation Comments Eosinophils (%) (Auto) (test code = 713-8) 4.6 0.0-6.0 [facility] HospitalBasophils (%) (Auto)2018-07-28 04:25:00* Test Item Value Reference Range Interpretation Comments Basophils (%) (Auto) (test code = 706-2) 0.3 0.0-1.0 [facility] HospitalIM GRANULOCYTES %2018-07-28 04:25:00* Test Item Value Reference Range Interpretation Comments IM GRANULOCYTES % (test code = IM GRANULOCYTES %) 0.0 0.0- 1.0 [facility] HospitalNeutrophils # (Auto)2018-07-28 04:25:00* Test Item Value Reference Range Interpretation Comments Neutrophils # (Auto) (test code = 751-8) 1.9 2.1-6.9 L [facility] HospitalLymphocytes # (Auto)2018-07-28 04:25:00* Test Item Value Reference Range Interpretation Comments Lymphocytes # (Auto) (test code = 27124-3) 1.2 1.0-3.2 [facility] HospitalMonocytes # (Auto)2018-07-28 04:25:00* Test Item Value Reference Range Interpretation Comments Monocytes # (Auto) (test code = 742-7) 0.2 0.2-0.8 [facility] HospitalEosinophils # (Auto)2018-07-28 04:25:00* Test Item Value Reference Range Interpretation Comments Eosinophils # (Auto) (test code = 711-2) 0.2 0.0-0.4 [facility] HospitalBasophils # (Auto)2018-07-28 04:25:00* Test Item Value Reference Range Interpretation Comments Basophils # (Auto) (test code = 704-7) 0.0 0.0-0.1 [facility] HospitalAbsolute Immature Granulocyte (auto 2018-07-28 04:25:00* Test Item Value Reference Range Interpretation Comments Absolute Immature Granulocyte (auto (may t code = Absolute Immature Granulocyte (auto) 0 0-0.1 [facility] HospitalUrine Zhert6810-12-96 04:23:00* Test Item Value Reference Range Interpretation Comments Urine Color (test code = 5778-6) YELLOW YELLOW [facility] HospitalUrine Xutvovi4195-35-71 04:23:00* Test Item Value Reference Range Interpretation Comments Urine Clarity (test code = 46518-3) SL CLOUDY CLEAR [facility] Specific Aplgkgn4610-44-03 04:23:00 * Test Item Value Reference Range Interpretation Comments Urine Specific [place] (test code = 5811-5) 1.010 1.010-1.02 5 [facility] HospitalUrine kB2406-80-20 04:23:00* Test Item Value Reference Range Interpretation Comments Urine pH (test code = 81550-2) 7 5-7 [facility] Leukocyte Escjpzon4485-78-36 04:23:00* Test Item Value Reference Range Interpretation Comments Urine Leukocyte Esterase (test code = 5799-2) 2+ NEGATIVE H [facility] Qddouwq3816-72-57 04:23:00* Test Item Value Reference Range Interpretation Comments Urine Nitrite (test code = 41664-5) NEGATIVE NEGATIVE [facility] Zffzkpw0379-22-09 04:23:00* Test Item Value Reference Range Interpretation Comments Urine Protein (test code = 5804-0) NEGATIVE NEGATIVE [facility] Glucose (UA)2018-07-28 04:23:00* Test Item Value Reference Range Interpretation Comments Urine Glucose (UA) (test code = 2349-9) NEGATIVE NEGATIVE [facility] Nojayhs8574-94-79 04:23:00* Test Item Value Reference Range Interpretation Comments Urine Ketones (test code = 14070-8) NEGATIVE NEGATIVE [facility] Lrglsgkapejd6206-16-84 04:23:00* Test Item Value Reference Range Interpretation Comments Urine Urobilinogen (test code = 73455-0) 0.2 0.2-1 [facility] Yyhmzxmxo3388-43-40 04:23:00* Test Item Value Reference Range Interpretation Comments Urine Bilirubin (test code = 1978-6) NEGATIVE NEGATIVE [facility] Jzupr2135-11-79 04:23:00* Test Item Value Reference Range Interpretation Comments Urine Blood (test code = 81508-4) NEGATIVE NEGATIVE [facility] HospitalU[facility] Efmup6990-22-45 04:23:00* Test Item Value Reference Range Interpretation Comments Urine Color (test code = 5778-6) YELLOW YELLOW [facility] HospitalUrine Wramxam3886-71-73 04:23:00* Test Item Value Reference Range Interpretation Comments Urine Clarity (test code = 26431-0) SL CLOUDY CLEAR [facility] HospitalU[facility] Specific Epbaciw6311-41-20 04:23:00 * Test Item Value Reference Range Interpretation Comments Urine Specific [place] (test code = 5811-5) 1.010 1.010-1.02 5 [facility] HospitalU[facility] wW1383-41-26 04:23:00* Test Item Value Reference Range Interpretation Comments Urine pH (test code = 76104-6) 7 5-7 [facility] Leukocyte Kghbohro4172-20-40 04:23:00* Test Item Value Reference Range Interpretation Comments Urine Leukocyte Esterase (test code = 5799-2) 2+ NEGATIVE H [facility] HospitalUrine Fjzyqph5289-35-54 04:23:00* Test Item Value Reference Range Interpretation Comments Urine Nitrite (test code = 89913-1) NEGATIVE NEGATIVE [facility] HospitalU[facility] Qsahzvh3496-11-50 04:23:00* Test Item Value Reference Range Interpretation Comments Urine Protein (test code = 5804-0) NEGATIVE NEGATIVE [facility] HospitalU[facility] Glucose (UA)2018-07-28 04:23:00* Test Item Value Reference Range Interpretation Comments Urine Glucose (UA) (test code = 2349-9) NEGATIVE NEGATIVE [facility] HospitalU[facility] Eosysqf5718-62-79 04:23:00* Test Item Value Reference Range Interpretation Comments Urine Ketones (test code = 88243-8) NEGATIVE NEGATIVE [facility] HospitalU[facility] Ufnaclbgdxoq9831-63-40 04:23:00* Test Item Value Reference Range Interpretation Comments Urine Urobilinogen (test code = 45959-9) 0.2 0.2-1 [facility] HospitalU[facility] Lsshzfwdi1186-99-00 04:23:00* Test Item Value Reference Range Interpretation Comments Urine Bilirubin (test code = 1978-6) NEGATIVE NEGATIVE [facility] HospitalU[facility] Mwwxj8400-08-72 04:23:00* Test Item Value Reference Range Interpretation Comments Urine Blood (test code = 74787-2) NEGATIVE NEGATIVE [facility] HospitalCT [facility]BDOM[facility]/PELVIS [id number] 02:40:00 [facility] [address] [address] Patient Name: BELIA VIGIL MR #: [id number] : [birth year] Age/Sex: 37/F Req #: [id number] Adm Physician: Ordered by: AYDEN COLLADO MD Report #: [id number] Location: ER Room/Bed: Procedure: [id number] CT/CT ABDOMEN/PELVIS WO Exam Date: 07/28/18 Exam [...] nephrolithiasis. No hydronephrosis. Si gned by: Dr. Rea Johnson M.D. on 07/28/2018 2:49 AM Dictated By: ISADORA JOHNSON MD 8 Tra nscribed By: WAYNE on 07/28/18248 COPY TO: AYDEN COLLADO MD CHROMOGRANIN [id number] 09:37:00* Test Item Value Reference Range Interpretation Comments SCAN RESULT (test code = 0256601) GSXCPAOJQ5650-71-20 05:51:00* Test Item Value Reference Range Interpretation Comments MAGNESIUM (BEAKER) (test code = 627) 1.8 mg/dL 1.6-2.6 COMPREHENSIVE METABOLIC [id number] 05:51:00* Test Item Value Reference Range Interpretation Comments TOTAL PROTEIN (BEAKER) (test code = 770) 6.9 gm/dL 6.0-8.3 ALBUMIN (BEAKER) (test code = 1145) 4.0 g/dL 3.5-5.0 ALKALINE PHOSPHATASE (BEAKER) (test code = 346) 98 U/L 40-150 BILIRUBIN TOTAL (BEAKER) (test code = 377) 0.2 mg/dL 0.2-1.2 SODIUM (BEAKER) (test code = 381) 139 meq/L 136-145 POTASSIUM (BEAKER) (test code = 379) 4.3 meq/L 3.5-5.1 CHLORIDE (BEAKER) (test code = 382) 107 meq/L 98-107 CO2 (BEAKER) (test code = 355) 25 meq/L 22-29 BLOOD UREA NITROGEN (BEAKER) (test code = 354) 5 mg/dL 7-21 L CREATININE (BEAKER) (test code = 358) 0.69 mg/dL 0.57-1.25 GLUCOSE RANDOM (BEAKER) (test code = 652) 125 mg/dL 70-105 H CALCIUM (BEAKER) (test code = 697) 9.3 mg/dL 8.4-10.2 AST (SGOT) (BEAKER) (test code = 353) 34 U/L 5-34 ALT (SGPT) (BEAKER) (test code = 347) 41 U/L 6-55 EGFR (BEAKER) (test code = 1092) 95 mL/min/1.73 sq m ESTIMATED GFR IS NOT ACCURATE CREATININE CLEARANCE IN PREDICTING GLOMERULAR FILTRATION RATE. ESTIMATED GFR IS NOT APPLICABLE FOR DIALYSIS PATIENTS. [id number] 04:55:00* Test Item Value Reference Range Interpretation Comments MAGNESIUM (BEAKER) (test code = 627) 1.8 mg/dL 1.6-2.6 COMPREHENSIVE METABOLIC [id number] 04:55:00* Test Item Value Reference Range Interpretation Comments TOTAL PROTEIN (BEAKER) (test code = 770) 7.5 gm/dL 6.0-8.3 ALBUMIN (BEAKER) (test code = 1145) 4.3 g/dL 3.5-5.0 ALKALINE PHOSPHATASE (BEAKER) (test code = 346) 111 U/L 40-150 BILIRUBIN TOTAL (BEAKER) (test code = 377) 0.3 mg/dL 0.2-1.2 SODIUM (BEAKER) (test code = 381) 139 meq/L 136-145 POTASSIUM (BEAKER) (test code = 379) 4.1 meq/L 3.5-5.1 CHLORIDE (BEAKER) (test code = 382) 106 meq/L 98-107 CO2 (BEAKER) (test code = 355) 25 meq/L 22-29 BLOOD UREA NITROGEN (BEAKER) (test code = 354) 7 mg/dL 7-21 CREATININE (BEAKER) (test code = 358) 0.70 mg/dL 0.57-1.25 GLUCOSE RANDOM (BEAKER) (test code = 652) 87 mg/dL 70-105 CALCIUM (BEAKER) (test code = 697) 9.8 mg/dL 8.4-10.2 AST (SGOT) (BEAKER) (test code = 353) 51 U/L 5-34 H ALT (SGPT) (BEAKER) (test code = 347) 54 U/L 6-55 EGFR (BEAKER) (test code = 1092) 94 mL/min/1.73 sq m ESTIMATED GFR IS NOT ACCURATE CREATININE CLEARANCE IN PREDICTING GLOMERULAR FILTRATION RATE. ESTIMATED GFR IS NOT APPLICABLE FOR DIALYSIS PATIENTS. PROTHROMBIN TIME/[id number] 04:50:00* Test Item Value Reference Range Interpretation Comments PROTIME (BEAKER) (test code = 759) 13.0 seconds 11.7-14.7 INR (BEAKER) (test code = 370) 1.0 <=5.9 RECOMMENDED COUMADIN/WARFARIN INR THERAPY RANGESSTANDARD DOSE: 2.0 - 3.0 Inclu yossi: PROPHYLAXIS for venous thrombosis, systemic embolization; TREATMENT for [place] ous thrombosis and/or pulmonary embolus.HIGH RISK: Target INR is 2.5-3.5 for pat ients with mechanical heart valves.[id number] 04:50:00* Test Item Value Reference Range Interpretation Comments PARTIAL THROMBOPLASTIN TIME (BEAKER) (test code = 760) 29.0 seconds 22.5-36.0 CBC W/PLT COUNT & AUTO [id number] 04:38:00* Test Item Value Reference Range Interpretation Comments WHITE BLOOD CELL COUNT (BEAKER) (test code = 775) 4.7 K/ L 3.5- 10.5 RED BLOOD CELL COUNT (BEAKER) (test code = 761) 4.08 M/ L 3.93-5 .22 HEMOGLOBIN (BEAKER) (test code = 410) 11.1 GM/DL 11.2-15.7 L HEMATOCRIT (BEAKER) (test code = 411) 34.8 % 34.1-44.9 MEAN CORPUSCULAR VOLUME (BEAKER) (test code = 753) 85.3 fL 79. 4-94.8 MEAN CORPUSCULAR HEMOGLOBIN (BEAKER) (test code = 751) 27.2 pg 25.6-32.2 MEAN CORPUSCULAR HEMOGLOBIN CONC (BEAKER) (test code = 752) 31.9 GM/DL 32.2-35.5 L RED CELL DISTRIBUTION WIDTH (BEAKER) (test code = 412) 15.5 % 11.7-14.4 H PLATELET COUNT (BEAKER) (test code = 756) 264 K/CU MM 150-450 MEAN PLATELET VOLUME (BEAKER) (test code = 754) 10.1 fL 9.4-12 .3 NUCLEATED RED BLOOD CELLS (BEAKER) (test code = 413) 0 /100 WBC 0 -0 NEUTROPHILS RELATIVE PERCENT (BEAKER) (test code = 429) 44 % LYMPHOCYTES RELATIVE PERCENT (BEAKER) (test code = 430) 36 % MONOCYTES RELATIVE PERCENT (BEAKER) (test code = 431) 8 % EOSINOPHILS RELATIVE PERCENT (BEAKER) (test code = 432) 11 % BASOPHILS RELATIVE PERCENT (BEAKER) (test code = 437) 0 % NEUTROPHILS ABSOLUTE COUNT (BEAKER) (test code = 670) 2.09 K/ L 1.56-6.13 LYMPHOCYTES ABSOLUTE COUNT (BEAKER) (test code = 414) 1.72 K/ L 1.18-3.74 MONOCYTES ABSOLUTE COUNT (BEAKER) (test code = 415) 0.38 K/ L 0. 24-0.36 H EOSINOPHILS ABSOLUTE COUNT (BEAKER) (test code = 416) 0.50 K/ L 0.04-0.36 H BASOPHILS ABSOLUTE COUNT (BEAKER) (test code = 417) 0.02 K/ L 0. 01-0.08 IMMATURE GRANULOCYTES-RELATIVE PERCENT (BEAKER) (test code = 2801) 0 % 0-1 C. DIFFICILE GDH [id number] 20:01:00* Test Item Value Reference Range Interpretation Comments CDT TOXIN (test code = 0406092344) Negative Negative CDT GDH ANTIGEN (test code = 3715572203) Positive Negative A C. difficile present but toxin not detected. [...] of kit performance was done by the [facility] prior to cl inical use.RAD, CHEST, 1 VIEW, NON [id number] 10:11:00Reason for exam:-> check port position, not [...] ouette is magnified by technique. Signed: Inna Morel MDReport Verified Date/T angela: 07/16/2018 10:11:18 Reading Location: [facility] Radiology Reading Room [id number] 06:14:00* Test Item Value Reference Range Interpretation Comments MAGNESIUM (BEAKER) (test code = 627) 2.0 mg/dL 1.6-2.6 Specimen slightly hemolyzed [id number] 06:14:00* Test Item Value Reference Range Interpretation Comments PHOSPHORUS (BEAKER) (test code = 604) 3.9 mg/dL 2.3-4.7 Specimen slightly hemolyzed COMPREHENSIVE METABOLIC [id number] 06:14:00* Test Item Value Reference Range Interpretation Comments TOTAL PROTEIN (BEAKER) (test code = 770) 7.5 gm/dL 6.0-8.3 Specimen slightly hemolyzed ALBUMIN (BEAKER) (test code = 1145) 4.2 g/dL 3.5-5.0 Specimen slightly hemolyzed ALKALINE PHOSPHATASE (BEAKER) (test code = 346) 97 U/L 40-150 BILIRUBIN TOTAL (BEAKER) (test code = 377) 0.4 mg/dL 0.2-1.2 Specimen slightly hemolyzed SODIUM (BEAKER) (test code = 381) 139 meq/L 136-145 POTASSIUM (BEAKER) (test code = 379) 4.6 meq/L 3.5-5.1 Specimen slightly hemolyzed CHLORIDE (BEAKER) (test code = 382) 108 meq/L 98-107 H CO2 (BEAKER) (test code = 355) 23 meq/L 22-29 BLOOD UREA NITROGEN (BEAKER) (test code = 354) 9 mg/dL 7-21 CREATININE (BEAKER) (test code = 358) 0.73 mg/dL 0.57-1.25 Specimen slightly hemolyzed GLUCOSE RANDOM (BEAKER) (test code = 652) 122 mg/dL 70-105 H CALCIUM (BEAKER) (test code = 697) 9.3 mg/dL 8.4-10.2 AST (SGOT) (BEAKER) (test code = 353) 54 U/L 5-34 H Specimen slightly hemolyzed ALT (SGPT) (BEAKER) (test code = 347) 56 U/L 6-55 H Specimen slightly hemolyzed EGFR (BEAKER) (test code = 1092) 89 mL/min/1.73 sq m ESTIMATED GFR IS NOT ACCURATE CREATININE CLEARANCE IN PREDICTING GLOMERULAR FILTRATION RATE. ESTIMATED GFR IS NOT APPLICABLE FOR DIALYSIS PATIENTS. URINALYSIS W/ REFLEX URINE [id number] 06:10:00* Test Item Value Reference Range Interpretation Comments COLOR (BEAKER) (test code = 470) Yellow CLARITY (BEAKER) (test code = 469) Hazy SPECIFIC GRAVITY UA (BEAKER) (test code = 468) 1.020 1.001-1 .035 PH UA (BEAKER) (test code = 467) 6.0 5.0-8.0 PROTEIN UA (BEAKER) (test code = 464) 20 mg/dL Negative A GLUCOSE UA (BEAKER) (test code = 365) Negative Negative KETONES UA (BEAKER) (test code = 371) 20 mg/dL Negative A BILIRUBIN UA (BEAKER) (test code = 462) Negative Negative BLOOD UA (BEAKER) (test code = 461) Negative Negative NITRITE UA (BEAKER) (test code = 465) Negative Negative LEUKOCYTE ESTERASE UA (BEAKER) (test code = 466) Trace Negat ivonne A UROBILINOGEN UA (BEAKER) (test code = 463) 0.2 mg/dL 0.2-1.0 RBC UA (BEAKER) (test code = 519) 2 /HPF WBC UA (BEAKER) (test code = 520) 1 /HPF BACTERIA (BEAKER) (test code = 517) Occasional MUCUS (BEAKER) (test code = 1574) Many SQUAMOUS EPITHELIAL (BEAKER) (test code = 516) 3 /HPF SOURCE(BEAKER) (test code = 1277) [id number] 05:04:00* Test Item Value Reference Range Interpretation Comments LIPASE (BEAKER) (test code = 749) 9 U/L 8-78 BASIC METABOLIC [id number] 05:04:00* Test Item Value Reference Range Interpretation Comments SODIUM (BEAKER) (test code = 381) 139 meq/L 136-145 POTASSIUM (BEAKER) (test code = 379) 4.1 meq/L 3.5-5.1 CHLORIDE (BEAKER) (test code = 382) 108 meq/L 98-107 H CO2 (BEAKER) (test code = 355) 21 meq/L 22-29 L BLOOD UREA NITROGEN (BEAKER) (test code = 354) 16 mg/dL 7-21 CREATININE (BEAKER) (test code = 358) 0.77 mg/dL 0.57-1.25 GLUCOSE RANDOM (BEAKER) (test code = 652) 96 mg/dL 70-105 CALCIUM (BEAKER) (test code = 697) 10.3 mg/dL 8.4-10.2 H EGFR (BEAKER) (test code = 1092) 84 mL/min/1.73 sq m ESTIMATED GFR IS NOT ACCURATE CREATININE CLEARANCE IN PREDICTING GLOMERULAR FILTRATION RATE. ESTIMATED GFR IS NOT APPLICABLE FOR DIALYSIS PATIENTS. HEPATIC FUNCTION [id number] 05:04:00* Test Item Value Reference Range Interpretation Comments TOTAL PROTEIN (BEAKER) (test code = 770) 8.5 gm/dL 6.0-8.3 H ALBUMIN (BEAKER) (test code = 1145) 4.7 g/dL 3.5-5.0 BILIRUBIN TOTAL (BEAKER) (test code = 377) 0.5 mg/dL 0.2-1.2 BILIRUBIN DIRECT (BEAKER) (test code = 706) 0.2 mg/dL 0.1-0.5 ALKALINE PHOSPHATASE (BEAKER) (test code = 346) 115 U/L 40-150 AST (SGOT) (BEAKER) (test code = 353) 33 U/L 5-34 ALT (SGPT) (BEAKER) (test code = 347) 65 U/L 6-[address], [id number] 05:01:00Reason for exam:->ABDOMINAL PAINReason for exam:-> DIARRHEAReason [...] Post surgical changes, as described. Signed: Nelida Clark MDReport Verified Date/Cipriano e: 07/15/2018 05:01:56 Reading Location: [address] Reading Room W/PLT COUNT & AUTO [id number] 04:31:00* Test Item Value Reference Range Interpretation Comments WHITE BLOOD CELL COUNT (BEAKER) (test code = 775) 5.9 K/ L 3.5- 10.5 RED BLOOD CELL COUNT (BEAKER) (test code = 761) 4.41 M/ L 3.93-5 .22 HEMOGLOBIN (BEAKER) (test code = 410) 11.9 GM/DL 11.2-15.7 HEMATOCRIT (BEAKER) (test code = 411) 37.3 % 34.1-44.9 MEAN CORPUSCULAR VOLUME (BEAKER) (test code = 753) 84.6 fL 79. 4-94.8 MEAN CORPUSCULAR HEMOGLOBIN (BEAKER) (test code = 751) 27.0 pg 25.6-32.2 MEAN CORPUSCULAR HEMOGLOBIN CONC (BEAKER) (test code = 752) 31.9 GM/DL 32.2-35.5 L RED CELL DISTRIBUTION WIDTH (BEAKER) (test code = 412) 15.6 % 11.7-14.4 H PLATELET COUNT (BEAKER) (test code = 756) 289 K/CU MM 150-450 MEAN PLATELET VOLUME (BEAKER) (test code = 754) 9.1 fL 9.4-12 .3 L NUCLEATED RED BLOOD CELLS (BEAKER) (test code = 413) 0 /100 WBC 0 -0 NEUTROPHILS RELATIVE PERCENT (BEAKER) (test code = 429) 56 % LYMPHOCYTES RELATIVE PERCENT (BEAKER) (test code = 430) 34 % MONOCYTES RELATIVE PERCENT (BEAKER) (test code = 431) 7 % EOSINOPHILS RELATIVE PERCENT (BEAKER) (test code = 432) 2 % BASOPHILS RELATIVE PERCENT (BEAKER) (test code = 437) 0 % NEUTROPHILS ABSOLUTE COUNT (BEAKER) (test code = 670) 3.30 K/ L 1.56-6.13 LYMPHOCYTES ABSOLUTE COUNT (BEAKER) (test code = 414) 2.00 K/ L 1.18-3.74 MONOCYTES ABSOLUTE COUNT (BEAKER) (test code = 415) 0.43 K/ L 0. 24-0.36 H EOSINOPHILS ABSOLUTE COUNT (BEAKER) (test code = 416) 0.14 K/ L 0.04-0.36 BASOPHILS ABSOLUTE COUNT (BEAKER) (test code = 417) 0.02 K/ L 0. 01-0.08 IMMATURE GRANULOCYTES-RELATIVE PERCENT (BEAKER) (test code = 2801) 0 % 0-1 Amylase Fqbhl1773-41-61 23:33:00* Test Item Value Reference Range Interpretation Comments Amylase Level (test code = 1798-8) 35 25-125 [facility] 23:33:00* Test Item Value Reference Range Interpretation Comments Lipase (test code = 3040-3) 5 8-78 L [facility] Clsyw1775-13-66 22:32:00* Test Item Value Reference Range Interpretation Comments Sodium Level (test code = 2951-2) 135 136-145 L [facility] HospitalPotassium Enytk8300-01-51 22:32:00* Test Item Value Reference Range Interpretation Comments Potassium Level (test code = 2823-3) 3.9 3.5-5.1 [facility] HospitalChloride Latpz6954-91-79 22:32:00* Test Item Value Reference Range Interpretation Comments Chloride Level (test code = 2075-0) 106 98-107 [facility] HospitalCarbon Dioxide Awepy3721-02-58 22:32:00* Test Item Value Reference Range Interpretation Comments Carbon Dioxide Level (test code = 2028-9) 19 22-29 L [facility] HospitalAnion Gxk2800-10-13 22:32:00* Test Item Value Reference Range Interpretation Comments Anion Gap (test code = 71289-7) 13.9 8-16 [facility] HospitalBlood Urea Xnapyokt7040-58-63 22:32:00* Test Item Value Reference Range Interpretation Comments Blood Urea Nitrogen (test code = 3094-0) 7 7-26 [facility] HospitalCreatinine2018-12-14 22:32:00* Test Item Value Reference Range Interpretation Comments Creatinine (test code = 2160-0) 0.70 0.57-1.11 [facility] HospitalBUN/Creatinine Telaf1175-33-22 22:32:00* Test Item Value Reference Range Interpretation Comments BUN/Creatinine Ratio (test code = 3097-3) 10 6-25 [facility] HospitalEstimat Glomerular Filtration Rate 2018-06-22 22:32:00* Test Item Value Reference Range Interpretation Comments Estimat Glomerular Filtration Rate (test code = 915035682) > 60 >60 Ranges were taken from the National Kidney Disease Education Program and the [facility] Foundation literature.Reference ranges:60 or greater: Cemsuy49-93 ( for 3 consecutive months): Chronic kidney disease 15 or less: Kidney failureHouston [facility] HospitalGlucose Ntnrv5711-31-84 22:32:00* Test Item Value Reference Range Interpretation Comments Glucose Level (test code = UNB6622) 100 74-118 [facility] HospitalCalcium Xllkf9079-66-16 22:32:00* Test Item Value Reference Range Interpretation Comments Calcium Level (test code = 17282-7) 9.3 8.4-10.2 [facility] HospitalTotal Xcyssbgld1426-96-91 22:32:00* Test Item Value Reference Range Interpretation Comments Total Bilirubin (test code = 1975-2) 0.2 0.2-1.2 [facility] HospitalAspartate Amino Transf (AST/SGOT) 2018-06-22 22:32:00* Test Item Value Reference Range Interpretation Comments Aspartate Amino Transf (AST/SGOT) (test code = Aspartate Amino Transf (AST/SGOT)) 26 5-34 [facility] HospitalAlanine Aminotransferase (ALT/SGPT) 2018-06-22 22:32:00* Test Item Value Reference Range Interpretation Comments Alanine Aminotransferase (ALT/SGPT) (test code = 1742-6) 37 0-55 [facility] HospitalTotal Rfxhkpr2211-97-34 22:32:00* Test Item Value Reference Range Interpretation Comments Total Protein (test code = 2885-2) 7.8 6.5-8.1 [facility] HospitalAlbumin2018-12-14 22:32:00* Test Item Value Reference Range Interpretation Comments Albumin (test code = 1751-7) 4.0 3.5-5.0 [facility] HospitalGlobulin2018-12-14 22:32:00* Test Item Value Reference Range Interpretation Comments Globulin (test code = 47561-5) 3.8 2.3-3.5 H [facility] HospitalAlbumin/Globulin Youyz6217-25-51 22:32:00 * Test Item Value Reference Range Interpretation Comments Albumin/Globulin Ratio (test code = 1759-0) 1.1 0.8-2.0 [facility] HospitalAlkaline Esaxodurcnj1266-59-36 22:32:00* Test Item Value Reference Range Interpretation Comments Alkaline Phosphatase (test code = 6768-6) 111 40-150 [facility] HospitalWhite Blood Frxnh7899-53-15 22:17:00* Test Item Value Reference Range Interpretation Comments White Blood Count (test code = 6690-2) 4.02 4.8-10.8 L [facility] HospitalRed Blood Fxpse1584-19-28 22:17:00* Test Item Value Reference Range Interpretation Comments Red Blood Count (test code = 789-8) 4.04 3.6-5.1 [facility] HospitalHemoglobin2018-12-14 22:17:00* Test Item Value Reference Range Interpretation Comments Hemoglobin (test code = 39333-9) 11.1 12.0-16.0 L [facility] HospitalHematocrit2018-12-14 22:17:00* Test Item Value Reference Range Interpretation Comments Hematocrit (test code = 4544-3) 33.1 34.2-44.1 L [facility] HospitalMean Corpuscular Mjfgkr4580-11-87 22:17:00* Test Item Value Reference Range Interpretation Comments Mean Corpuscular Volume (test code = 787-2) 81.9 81-99 [facility] HospitalMean Corpuscular Xxliuebgbk1541-08-09 22:17:00* Test Item Value Reference Range Interpretation Comments Mean Corpuscular Hemoglobin (test code = 785-6) 27.5 28-32 L [facility] HospitalMean Corpuscular Hemoglobin Concent 2018-06-22 22:17:00* Test Item Value Reference Range Interpretation Comments Mean Corpuscular Hemoglobin Concent (test code = 786-4) 33.5 31-35 [facility] HospitalRed Cell Distribution Spntk8179-39-38 22:17:00* Test Item Value Reference Range Interpretation Comments Red Cell Distribution Width (test code = 21474-0) 15.2 11.7 -14.4 H [facility] HospitalPlatelet Httxb4458-65-01 22:17:00* Test Item Value Reference Range Interpretation Comments Platelet Count (test code = 777-3) 228 140-360 [facility] HospitalNeutrophils (%) (Auto)2018-06-22 22:17:00 * Test Item Value Reference Range Interpretation Comments Neutrophils (%) (Auto) (test code = 26555-9) 43.7 38.7-80.0 [facility] HospitalLymphocytes (%) (Auto)2018-06-22 22:17:00 * Test Item Value Reference Range Interpretation Comments Lymphocytes (%) (Auto) (test code = 736-9) 44.0 18.0-39.1 H [facility] HospitalMonocytes (%) (Auto)2018-06-22 22:17:00* Test Item Value Reference Range Interpretation Comments Monocytes (%) (Auto) (test code = 5905-5) 8.2 4.4-11.3 [facility] HospitalEosinophils (%) (Auto)2018-06-22 22:17:00 * Test Item Value Reference Range Interpretation Comments Eosinophils (%) (Auto) (test code = 713-8) 3.7 0.0-6.0 [facility] HospitalBasophils (%) (Auto)2018-06-22 22:17:00* Test Item Value Reference Range Interpretation Comments Basophils (%) (Auto) (test code = 706-2) 0.2 0.0-1.0 [facility] HospitalIM GRANULOCYTES %2018-06-22 22:17:00* Test Item Value Reference Range Interpretation Comments IM GRANULOCYTES % (test code = IM GRANULOCYTES %) 0.2 0.0- 1.0 [facility] HospitalNeutrophils # (Auto)2018-06-22 22:17:00* Test Item Value Reference Range Interpretation Comments Neutrophils # (Auto) (test code = 751-8) 1.8 2.1-6.9 L [facility] HospitalLymphocytes # (Auto)2018-06-22 22:17:00* Test Item Value Reference Range Interpretation Comments Lymphocytes # (Auto) (test code = 95773-3) 1.8 1.0-3.2 [facility] HospitalMonocytes # (Auto)2018-06-22 22:17:00* Test Item Value Reference Range Interpretation Comments Monocytes # (Auto) (test code = 742-7) 0.3 0.2-0.8 [facility] HospitalEosinophils # (Auto)2018-06-22 22:17:00* Test Item Value Reference Range Interpretation Comments Eosinophils # (Auto) (test code = 711-2) 0.2 0.0-0.4 [facility] HospitalBasophils # (Auto)2018-06-22 22:17:00* Test Item Value Reference Range Interpretation Comments Basophils # (Auto) (test code = 704-7) 0.0 0.0-0.1 [facility] HospitalAbsolute Immature Granulocyte (auto 2018-06-22 22:17:00* Test Item Value Reference Range Interpretation Comments Absolute Immature Granulocyte (auto (may t code = Absolute Immature Granulocyte (auto) 0.01 0-0.1 [facility] HospitalUrine Wleye7819-18-37 22:17:00* Test Item Value Reference Range Interpretation Comments Urine Color (test code = 5778-6) YELLOW YELLOW [facility] HospitalUrine Jktgxoo1417-07-26 22:17:00* Test Item Value Reference Range Interpretation Comments Urine Clarity (test code = 40552-6) HAZY CLEAR [facility] HospitalUrine Specific Ofnvuqz0906-90-77 22:17:00 * Test Item Value Reference Range Interpretation Comments Urine Specific [place] (test code = 5811-5) 1.020 1.010-1.02 5 [facility] HospitalUrine mK8801-80-00 22:17:00* Test Item Value Reference Range Interpretation Comments Urine pH (test code = 49916-0) 6 5-7 [facility] HospitalUrine Leukocyte Pguvjaas6629-04-21 22:17:00* Test Item Value Reference Range Interpretation Comments Urine Leukocyte Esterase (test code = 5799-2) NEGATIVE NEGATIVE [facility] HospitalUrine Trfdqaq5314-24-20 22:17:00* Test Item Value Reference Range Interpretation Comments Urine Nitrite (test code = 10938-1) NEGATIVE NEGATIVE [facility] HospitalUrine Xqkurzx4220-61-60 22:17:00* Test Item Value Reference Range Interpretation Comments Urine Protein (test code = 5804-0) NEGATIVE NEGATIVE [facility] Glucose (UA)2018-06-22 22:17:00* Test Item Value Reference Range Interpretation Comments Urine Glucose (UA) (test code = 2349-9) NEGATIVE NEGATIVE [facility] Rxoxrzq0877-32-72 22:17:00* Test Item Value Reference Range Interpretation Comments Urine Ketones (test code = 29527-1) NEGATIVE NEGATIVE [facility] Xteuzxodrbkd3437-66-67 22:17:00* Test Item Value Reference Range Interpretation Comments Urine Urobilinogen (test code = 68461-6) 0.2 0.2-1 [facility] Wffypdzyi9789-89-24 22:17:00* Test Item Value Reference Range Interpretation Comments Urine Bilirubin (test code = 1978-6) NEGATIVE NEGATIVE [facility] Wuiis4701-03-94 22:17:00* Test Item Value Reference Range Interpretation Comments Urine Blood (test code = 83283-6) NEGATIVE NEGATIVE [facility] HospitalUrine GKP3320-02-86 22:17:00* Test Item Value Reference Range Interpretation Comments Urine WBC (test code = 5821-4) 0-5 0-5 [facility] ENX8029-55-01 22:17:00* Test Item Value Reference Range Interpretation Comments Urine RBC (test code = 92393-8) 0-5 0-5 [facility] Vsjoxwwf1793-27-83 22:17:00* Test Item Value Reference Range Interpretation Comments Urine Bacteria (test code = 83832-7) FEW NONE [facility] Epithelial Tnfjt8144-98-14 22:17:00 * Test Item Value Reference Range Interpretation Comments Urine Epithelial Cells (test code = 65627-6) MODERATE NONE [facility] Opiates Nefxof3554-45-83 22:08:00* Test Item Value Reference Range Interpretation Comments Urine Opiates Screen (test code = 55768-9) POSITIVE NEGATIVE H ALL TESTS PERFORMED MANUALLY ON [employer] TOX/SEE TEST This test provides only a sc reen. Positive results should be repeated by a confirmatory test.[facility] HospitalUrine Barbiturates Sgkmvn2209-13-77 22:08:00* Test Item Value Reference Range Interpretation Comments Urine Barbiturates Screen (test code = 374198471) NEGATIVE NEGA TIVE [facility] HospitalUrine Phencyclidine Muimla1901-73-42 22:08:00* Test Item Value Reference Range Interpretation Comments Urine Phencyclidine Screen (test code = 42392-7) NEGATIVE NEGAT IVONNE [facility] HospitalUrine Amphetamines Utlwgr6824-33-86 22:08:00* Test Item Value Reference Range Interpretation Comments Urine Amphetamines Screen (test code = 67504-8) NEGATIVE NEGATI VE [facility] Methamphetamines Jxhqzq1012-15-24 22:08:00* Test Item Value Reference Range Interpretation Comments Urine Methamphetamines Screen (test code = Urine Metha mphetamines Screen) NEGATIVE NEGATIVE [facility] HospitalUrine Benzodiazepines Buuagc0845-68-31 22:08:00* Test Item Value Reference Range Interpretation Comments Urine Benzodiazepines Screen (test code = 87701-1) POSITIVE NEG ATIVE H This test provides only a screen. Positive results should be repeated by a confi rmatory test.[facility] HospitalUrine Cocaine Screen 2018-06-22 22:08:00* Test Item Value Reference Range Interpretation Comments Urine Cocaine Screen (test code = 3398-5) NEGATIVE NEGATIVE [facility] HospitalUrine Cannabinoids Dcdqnd3844-92-24 22:08:00* Test Item Value Reference Range Interpretation Comments Urine Cannabinoids Screen (test code = 15599-0) POSITIVE NEGATI VE H THESE RESULTS ARE FOR MEDICAL TREATMENT ONLYTHIS REPORT CONTAINS UNCONFIR MED SCREENING RESULTS*POSITIVE RESULTS WILL BE CONFIRMED BY REFERENCE LAB UPON R EQUEST CUT-OFFDRUG CLASS CONCENTRATION ng/mLAmphetamines 1000Methamphetamines 1000Cocaine 300Opiate 300Phencyc lidine 25Cannabinoid 50Barbiturates 300Benzodiazepine 300Methadone 300 This test p rovides only a screen. Positive results should be repeated by a confirmatory may t.[facility] HospitalUrine Methadone Moqjsf0170-35-58 22:08:00* Test Item Value Reference Range Interpretation Comments Urine Methadone Screen (test code = 42748-6) NEGATIVE NEGATIVE THESE RESULTS ARE FOR MEDICAL TREATMENT ONLYTHIS REPORT CONTAINS UNCONFIR MED SCREENING RESULTS*POSITIVE RESULTS WILL BE CONFIRMED BY REFERENCE LAB UPON R EQUEST CUT-OFFDRUG CLASS CONCENTRATION ng/mLAmphetamines 1000Methamphetamines 1000Cocaine Metabolite 300Opiate 300Phencyc lidine 25Cannabinoid 50Barbiturates 300Benzodiazepine 300Methadone 300[facility] Opiates Lyuyia5786-96-61 22:08:00* Test Item Value Reference Range Interpretation Comments Urine Opiates Screen (test code = 84272-0) POSITIVE NEGATIVE H ALL TESTS PERFORMED MANUALLY ON [employer] TOX/SEE TEST This test provides only a sc reen. Positive results should be repeated by a confirmatory test.[facility] HospitalUrine Barbiturates Zljpsa4693-15-48 22:08:00* Test Item Value Reference Range Interpretation Comments Urine Barbiturates Screen (test code = 109794651) NEGATIVE NEGA TIVE [facility] HospitalUrine Phencyclidine Pxrbcs1814-85-38 22:08:00* Test Item Value Reference Range Interpretation Comments Urine Phencyclidine Screen (test code = 76338-4) NEGATIVE NEGAT IVONNE [facility] HospitalUrine Amphetamines Xihbkm6393-93-90 22:08:00* Test Item Value Reference Range Interpretation Comments Urine Amphetamines Screen (test code = 11602-6) NEGATIVE NEGATI VE [facility] HospitalUrine Methamphetamines Xhjlko5360-03-51 22:08:00* Test Item Value Reference Range Interpretation Comments Urine Methamphetamines Screen (test code = Urine Metha mphetamines Screen) NEGATIVE NEGATIVE [facility] HospitalUrine Benzodiazepines Eudisg8935-32-49 22:08:00* Test Item Value Reference Range Interpretation Comments Urine Benzodiazepines Screen (test code = 24767-7) POSITIVE NEG ATIVE H This test provides only a screen. Positive results should be repeated by a confi rmatory test.[facility] HospitalUrine Cocaine Screen 2018-06-22 22:08:00* Test Item Value Reference Range Interpretation Comments Urine Cocaine Screen (test code = 3398-5) NEGATIVE NEGATIVE [facility] HospitalUrine Cannabinoids Nvwdkz8537-57-75 22:08:00* Test Item Value Reference Range Interpretation Comments Urine Cannabinoids Screen (test code = 37561-0) POSITIVE NEGATI VE H THESE RESULTS ARE FOR MEDICAL TREATMENT ONLYTHIS REPORT CONTAINS UNCONFIR MED SCREENING RESULTS*POSITIVE RESULTS WILL BE CONFIRMED BY REFERENCE LAB UPON R EQUEST CUT-OFFDRUG CLASS CONCENTRATION ng/mLAmphetamines 1000Methamphetamines 1000Cocaine 300Opiate 300Phencyc lidine 25Cannabinoid 50Barbiturates 300Benzodiazepine 300Methadone 300 This test p rovides only a screen. Positive results should be repeated by a confirmatory may t.[facility] HospitalUrine Methadone Marrrz7245-28-29 22:08:00* Test Item Value Reference Range Interpretation Comments Urine Methadone Screen (test code = 59523-9) NEGATIVE NEGATIVE THESE RESULTS ARE FOR MEDICAL TREATMENT ONLYTHIS REPORT CONTAINS UNCONFIR MED SCREENING RESULTS*POSITIVE RESULTS WILL BE CONFIRMED BY REFERENCE LAB UPON R EQUEST CUT-OFFDRUG CLASS CONCENTRATION ng/mLAmphetamines 1000Methamphetamines 1000Cocaine Metabolite 300Opiate 300Phencyc lidine 25Cannabinoid 50Barbiturates 300Benzodiazepine 300Methadone 300[facility] HospitalUrine Opiates Zlrqbn4070-68-28 22:08:00* Test Item Value Reference Range Interpretation Comments Urine Opiates Screen (test code = 78837-1) POSITIVE NEGATIVE H ALL TESTS PERFORMED MANUALLY ON [employer] TOX/SEE TEST This test provides only a sc reen. Positive results should be repeated by a confirmatory test.[facility] HospitalUrine Barbiturates Uqbysw3990-65-70 22:08:00* Test Item Value Reference Range Interpretation Comments Urine Barbiturates Screen (test code = 515037391) NEGATIVE NEGA TIVE [facility] HospitalUrine Phencyclidine Xhsavg9188-58-37 22:08:00* Test Item Value Reference Range Interpretation Comments Urine Phencyclidine Screen (test code = 77657-5) NEGATIVE NEGAT IVONNE [facility] HospitalUrine Amphetamines Kdcxis1737-31-73 22:08:00* Test Item Value Reference Range Interpretation Comments Urine Amphetamines Screen (test code = 10495-7) NEGATIVE NEGATI VE [facility] HospitalU[facility] Methamphetamines Fjjiyw3234-11-96 22:08:00* Test Item Value Reference Range Interpretation Comments Urine Methamphetamines Screen (test code = Urine Metha mphetamines Screen) NEGATIVE NEGATIVE [facility] HospitalU[facility] Benzodiazepines Htniwl1128-82-09 22:08:00* Test Item Value Reference Range Interpretation Comments Urine Benzodiazepines Screen (test code = 82299-6) POSITIVE NEG ATIVE H This test provides only a screen. Positive results should be repeated by a confi rmatory test.[facility] HospitalUrine Cocaine Screen 2018-06-22 22:08:00* Test Item Value Reference Range Interpretation Comments Urine Cocaine Screen (test code = 3398-5) NEGATIVE NEGATIVE [facility] HospitalUrine Cannabinoids Orloca1738-67-66 22:08:00* Test Item Value Reference Range Interpretation Comments Urine Cannabinoids Screen (test code = 76403-5) POSITIVE NEGATI VE H THESE RESULTS ARE FOR MEDICAL TREATMENT ONLYTHIS REPORT CONTAINS UNCONFIR MED SCREENING RESULTS*POSITIVE RESULTS WILL BE CONFIRMED BY REFERENCE LAB UPON R EQUEST CUT-OFFDRUG CLASS CONCENTRATION ng/mLAmphetamines 1000Methamphetamines 1000Cocaine 300Opiate 300Phencyc lidine 25Cannabinoid 50Barbiturates 300Benzodiazepine 300Methadone 300 This test p rovides only a screen. Positive results should be repeated by a confirmatory may t.[facility] HospitalUrine Methadone Fduako4570-45-47 22:08:00* Test Item Value Reference Range Interpretation Comments Urine Methadone Screen (test code = 66506-3) NEGATIVE NEGATIVE THESE RESULTS ARE FOR MEDICAL TREATMENT ONLYTHIS REPORT CONTAINS UNCONFIR MED SCREENING RESULTS*POSITIVE RESULTS WILL BE CONFIRMED BY REFERENCE LAB UPON R EQUEST CUT-OFFDRUG CLASS CONCENTRATION ng/mLAmphetamines 1000Methamphetamines 1000Cocaine Metabolite 300Opiate 300Phencyc lidine 25Cannabinoid 50Barbiturates 300Benzodiazepine 300Methadone 300[facility] Temple[facility] Opiates Surmzw1806-45-10 22:08:00* Test Item Value Reference Range Interpretation Comments Urine Opiates Screen (test code = 21257-1) POSITIVE NEGATIVE H ALL TESTS PERFORMED MANUALLY ON [employer] TOX/SEE TEST This test provides only a sc reen. Positive results should be repeated by a confirmatory test.[facility] HospitalUrine Barbiturates Kvmjqo1567-55-77 22:08:00* Test Item Value Reference Range Interpretation Comments Urine Barbiturates Screen (test code = 110085043) NEGATIVE NEGA TIVE [facility] HospitalU[facility] Phencyclidine Hvljrl8380-82-62 22:08:00* Test Item Value Reference Range Interpretation Comments Urine Phencyclidine Screen (test code = 15929-0) NEGATIVE NEGAT IVONNE [facility] HospitalUrine Amphetamines Wqceyi3196-02-46 22:08:00* Test Item Value Reference Range Interpretation Comments Urine Amphetamines Screen (test code = 55777-0) NEGATIVE NEGATI VE [facility] HospitalUrine Methamphetamines Hsgoqt1845-76-00 22:08:00* Test Item Value Reference Range Interpretation Comments Urine Methamphetamines Screen (test code = Urine Metha mphetamines Screen) NEGATIVE NEGATIVE [facility] HospitalUrine Benzodiazepines Cxsbpv2974-97-79 22:08:00* Test Item Value Reference Range Interpretation Comments Urine Benzodiazepines Screen (test code = 62209-9) POSITIVE NEG ATIVE H This test provides only a screen. Positive results should be repeated by a confi rmatory test.[facility] HospitalUrine Cocaine Screen 2018-06-22 22:08:00* Test Item Value Reference Range Interpretation Comments Urine Cocaine Screen (test code = 3398-5) NEGATIVE NEGATIVE [facility] HospitalUrine Cannabinoids Afvfha6278-31-66 22:08:00* Test Item Value Reference Range Interpretation Comments Urine Cannabinoids Screen (test code = 50296-9) POSITIVE NEGATI VE H THESE RESULTS ARE FOR MEDICAL TREATMENT ONLYTHIS REPORT CONTAINS UNCONFIR MED SCREENING RESULTS*POSITIVE RESULTS WILL BE CONFIRMED BY REFERENCE LAB UPON R EQUEST CUT-OFFDRUG CLASS CONCENTRATION ng/mLAmphetamines 1000Methamphetamines 1000Cocaine 300Opiate 300Phencyc lidine 25Cannabinoid 50Barbiturates 300Benzodiazepine 300Methadone 300 This test p rovides only a screen. Positive results should be repeated by a confirmatory may t.[facility] Hospital[facility]adone Hvzadw3855-90-41 22:08:00* Test Item Value Reference Range Interpretation Comments Urine Methadone Screen (test code = 26613-6) NEGATIVE NEGATIVE THESE RESULTS ARE FOR MEDICAL TREATMENT ONLYTHIS REPORT CONTAINS UNCONFIR MED SCREENING RESULTS*POSITIVE RESULTS WILL BE CONFIRMED BY REFERENCE LAB UPON R EQUEST CUT-OFFDRUG CLASS CONCENTRATION ng/mLAmphetamines 1000Methamphetamines 1000Cocaine Metabolite 300Opiate 300Phencyc lidine 25Cannabinoid 50Barbiturates 300Benzodiazepine 300Methadone 300[facility]ost[facility] Difficile Toxin A & B4699-08-06 11:26:00* Test Item Value Reference Range Interpretation Comments Clostridium Difficile Toxin A & B (test code = 401729245) NEGATIVE NEGATIVE Testing on stool aspirate specimens is outside chief librarian circulation department claims since specime n type not validated on this assay.[facility] Clostridium Difficile Toxin A & [id number] 11:26:00* Test Item Value Reference Range Interpretation Comments Clostridium Difficile Toxin A & B (test code = 839750615) NEGATIVE NEGATIVE Testing on stool aspirate specimens is outside chief librarian circulation department claims since specime n type not validated on this assay.[facility] Clostridium Difficile Toxin A & [id number] 11:26:00* Test Item Value Reference Range Interpretation Comments Clostridium Difficile Toxin A & B (test code = 027652167) NEGATIVE NEGATIVE Testing on stool aspirate specimens is outside chief librarian circulation department claims since specime n type not validated on this assay.[facility] Clostridium Difficile Toxin A & [id number] 11:26:00* Test Item Value Reference Range Interpretation Comments Clostridium Difficile Toxin A & B (test code = 168388622) NEGATIVE NEGATIVE Testing on stool aspirate specimens is outside chief librarian circulation department claims since specime n type not validated on this assay.[facility] HospitalUrine Oqsbswj9388-05-25 06:10:00* Test Item Value Reference Range Interpretation Comments Urine Culture (test code = 630-4) Organism: STAPHYLOCOCCUS AUREUS [facility] HospitalUrine Subvjzv4701-79-69 06:10:00* Test Item Value Reference Range Interpretation Comments Urine Culture (test code = 630-4) Organism: STAPHYLOCOCCUS AUREUS [facility] Iubiagt2144-88-56 06:10:00* Test Item Value Reference Range Interpretation Comments Urine Culture (test code = 630-4) Organism: STAPHYLOCOCCUS AUREUS [facility] Ewfyiba9921-73-90 06:10:00* Test Item Value Reference Range Interpretation Comments Urine Culture (test code = 630-4) Organism: STAPHYLOCOCCUS AUREUS [facility] Occult Dtvcu1939-92-13 20:44:00* Test Item Value Reference Range Interpretation Comments Stool Occult Blood (test code = 2335-8) POSITIVE NEGATIVE [facility] Occult Bubnv2135-40-68 20:44:00* Test Item Value Reference Range Interpretation Comments Stool Occult Blood (test code = 2335-8) POSITIVE NEGATIVE [facility] Occult Fozca0937-86-90 20:44:00* Test Item Value Reference Range Interpretation Comments Stool Occult Blood (test code = 2335-8) POSITIVE NEGATIVE [facility] Occult Nzdgi3237-30-67 20:44:00* Test Item Value Reference Range Interpretation Comments Stool Occult Blood (test code = 2335-8) POSITIVE NEGATIVE [facility] Occult Avmec6133-09-72 20:44:00* Test Item Value Reference Range Interpretation Comments Stool Occult Blood (test code = 2335-8) POSITIVE NEGATIVE [facility] Gskdfgy2830-65-08 09:32:00* Test Item Value Reference Range Interpretation Comments Urine Culture (test code = 630-4) Organism: GRAM POSITIVE COCCI [facility] Nnsse2108-03-34 03:56:00* Test Item Value Reference Range Interpretation Comments Sodium Level (test code = 2951-2) 136 136-145 [facility] HospitalPotassium Tcwhk8139-80-49 03:56:00* Test Item Value Reference Range Interpretation Comments Potassium Level (test code = 2823-3) 3.4 3.5-5.1 L [facility] HospitalChloride Fqgcd7036-21-04 03:56:00* Test Item Value Reference Range Interpretation Comments Chloride Level (test code = 2075-0) 107 98-107 [facility] HospitalCarbon Dioxide Qcpvj5753-25-60 03:56:00* Test Item Value Reference Range Interpretation Comments Carbon Dioxide Level (test code = 2028-9) 21 22-29 L [facility] HospitalAnion Ekm3462-60-64 03:56:00* Test Item Value Reference Range Interpretation Comments Anion Gap (test code = 28392-4) 11.4 8-16 [facility] HospitalBlood Urea Bofpmhfz2473-82-40 03:56:00* Test Item Value Reference Range Interpretation Comments Blood Urea Nitrogen (test code = 3094-0) 7 7-26 [facility] HospitalCreatinine2018-12-12 03:56:00* Test Item Value Reference Range Interpretation Comments Creatinine (test code = 2160-0) 0.65 0.57-1.11 [facility] HospitalBUN/Creatinine Uxnvb6756-28-90 03:56:00* Test Item Value Reference Range Interpretation Comments BUN/Creatinine Ratio (test code = 3097-3) 11 6-25 [facility] HospitalEstimat Glomerular Filtration Rate 2018-06-20 03:56:00* Test Item Value Reference Range Interpretation Comments Estimat Glomerular Filtration Rate (test code = 051349751) > 60 >60 Ranges were taken from the National Kidney Disease Education Program and the [facility] Kid[facility] Foundation literature.Reference ranges:60 or greater: Ihodbe30-72 ( for 3 consecutive months): Chronic kidney disease 15 or less: Kidney failureHouston Methodist West HospitalGlucose Yjvxk8055-43-36 03:56:00* Test Item Value Reference Range Interpretation Comments Glucose Level (test code = EUD8998) 111 74-118 [facility] HospitalCalcium Lzdul2697-42-28 03:56:00* Test Item Value Reference Range Interpretation Comments Calcium Level (test code = 68661-1) 8.4 8.4-10.2 [facility] HospitalMagnesium Omowg5278-25-01 03:56:00* Test Item Value Reference Range Interpretation Comments Magnesium Level (test code = 06014-9) 1.9 1.3-2.1 [facility] HospitalMagnesium Xxqqf7911-02-02 03:56:00* Test Item Value Reference Range Interpretation Comments Magnesium Level (test code = 16018-3) 1.9 1.3-2.1 [facility] HospitalWhite Blood Qjjbm0567-18-38 03:54:00* Test Item Value Reference Range Interpretation Comments White Blood Count (test code = 6690-2) 3.89 4.8-10.8 L [facility] HospitalRed Blood Gsuwo6652-76-36 03:54:00* Test Item Value Reference Range Interpretation Comments Red Blood Count (test code = 789-8) 3.32 3.6-5.1 L [facility] HospitalHemoglobin2018-12-12 03:54:00* Test Item Value Reference Range Interpretation Comments Hemoglobin (test code = 83530-0) 9.0 12.0-16.0 L [facility] HospitalHematocrit2018-12-12 03:54:00* Test Item Value Reference Range Interpretation Comments Hematocrit (test code = 4544-3) 27.4 34.2-44.1 L [facility] HospitalMean Corpuscular Cmpjzq4592-09-37 03:54:00* Test Item Value Reference Range Interpretation Comments Mean Corpuscular Volume (test code = 787-2) 82.5 81-99 [facility] HospitalMean Corpuscular Yayolyhlbj7076-78-61 03:54:00* Test Item Value Reference Range Interpretation Comments Mean Corpuscular Hemoglobin (test code = 785-6) 27.1 28-32 L [facility] HospitalMean Corpuscular Hemoglobin Concent 2018-06-20 03:54:00* Test Item Value Reference Range Interpretation Comments Mean Corpuscular Hemoglobin Concent (test code = 786-4) 32.8 31-35 [facility] HospitalRed Cell Distribution Jvfoy8393-96-27 03:54:00* Test Item Value Reference Range Interpretation Comments Red Cell Distribution Width (test code = 83260-5) 15.1 11.7 -14.4 H [facility] HospitalPlatelet Alukt2983-49-69 03:54:00* Test Item Value Reference Range Interpretation Comments Platelet Count (test code = 777-3) 148 140-360 [facility] HospitalNeutrophils (%) (Auto)2018-06-20 03:54:00 * Test Item Value Reference Range Interpretation Comments Neutrophils (%) (Auto) (test code = 73278-9) 51.6 38.7-80.0 [facility] HospitalLymphocytes (%) (Auto)2018-06-20 03:54:00 * Test Item Value Reference Range Interpretation Comments Lymphocytes (%) (Auto) (test code = 736-9) 37.3 18.0-39.1 [facility] HospitalMonocytes (%) (Auto)2018-06-20 03:54:00* Test Item Value Reference Range Interpretation Comments Monocytes (%) (Auto) (test code = 5905-5) 6.9 4.4-11.3 [facility] HospitalEosinophils (%) (Auto)2018-06-20 03:54:00 * Test Item Value Reference Range Interpretation Comments Eosinophils (%) (Auto) (test code = 713-8) 3.9 0.0-6.0 [facility] HospitalBasophils (%) (Auto)2018-06-20 03:54:00* Test Item Value Reference Range Interpretation Comments Basophils (%) (Auto) (test code = 706-2) 0.0 0.0-1.0 [facility] HospitalIM GRANULOCYTES %2018-06-20 03:54:00* Test Item Value Reference Range Interpretation Comments IM GRANULOCYTES % (test code = IM GRANULOCYTES %) 0.3 0.0- 1.0 [facility] HospitalNeutrophils # (Auto)2018-06-20 03:54:00* Test Item Value Reference Range Interpretation Comments Neutrophils # (Auto) (test code = 751-8) 2.0 2.1-6.9 L [facility] HospitalLymphocytes # (Auto)2018-06-20 03:54:00* Test Item Value Reference Range Interpretation Comments Lymphocytes # (Auto) (test code = 84420-6) 1.5 1.0-3.2 [facility] HospitalMonocytes # (Auto)2018-06-20 03:54:00* Test Item Value Reference Range Interpretation Comments Monocytes # (Auto) (test code = 742-7) 0.3 0.2-0.8 [facility] HospitalEosinophils # (Auto)2018-06-20 03:54:00* Test Item Value Reference Range Interpretation Comments Eosinophils # (Auto) (test code = 711-2) 0.2 0.0-0.4 [facility] HospitalBasophils # (Auto)2018-06-20 03:54:00* Test Item Value Reference Range Interpretation Comments Basophils # (Auto) (test code = 704-7) 0.0 0.0-0.1 [facility] HospitalAbsolute Immature Granulocyte (auto 2018-06-20 03:54:00* Test Item Value Reference Range Interpretation Comments Absolute Immature Granulocyte (auto (may t code = Absolute Immature Granulocyte (auto) 0.01 0-0.1 [facility] HospitalDifferential Total Cells Counted 2018-06-18 21:47:00* Test Item Value Reference Range Interpretation Comments Differential Total Cells Counted (test code = Differen tial Total Cells Counted) 100 [facility] HospitalNeutrophils % (Manual)2018-06-18 21:47:00 * Test Item Value Reference Range Interpretation Comments Neutrophils % (Manual) (test code = 62122-1) 66 40-74 [facility] HospitalLymphocytes % (Manual)2018-06-18 21:47:00 * Test Item Value Reference Range Interpretation Comments Lymphocytes % (Manual) (test code = 737-7) 30 19-48 [facility] HospitalEosinophils % (Manual)2018-06-18 21:47:00 * Test Item Value Reference Range Interpretation Comments Eosinophils % (Manual) (test code = 714-6) 4 0-7 [facility] HospitalPlatelet Mglhvage7256-26-70 21:47:00* Test Item Value Reference Range Interpretation Comments Platelet Estimate (test code = 39120-0) ADEQUATE [facility] HospitalPlatelet Morphology Fcbnbzk0528-18-29 21:47:00* Test Item Value Reference Range Interpretation Comments Platelet Morphology Comment (test code = 54954-1) NORMAL [facility] HospitalAnisocytosis2018-12-10 21:47:00* Test Item Value Reference Range Interpretation Comments Anisocytosis (test code = 702-1) SLIGHT [facility] HospitalRed Cell Morphology Rpstfox3311-18-36 21:47:00* Test Item Value Reference Range Interpretation Comments Red Cell Morphology Comment (test code = 6742-1) NORMAL [facility] HospitalDifferential Total Cells Counted 2018-06-18 21:47:00* Test Item Value Reference Range Interpretation Comments Differential Total Cells Counted (test code = Differchas tial Total Cells Counted) 100 [facility] HospitalNeutrophils % (Manual)2018-06-18 21:47:00 * Test Item Value Reference Range Interpretation Comments Neutrophils % (Manual) (test code = 92070-1) 66 40-74 [facility] HospitalLymphocytes % (Manual)2018-06-18 21:47:00 * Test Item Value Reference Range Interpretation Comments Lymphocytes % (Manual) (test code = 737-7) 30 19-48 [facility] HospitalEosinophils % (Manual)2018-06-18 21:47:00 * Test Item Value Reference Range Interpretation Comments Eosinophils % (Manual) (test code = 714-6) 4 0-7 [facility] HospitalPlatelet Lhryefpx9614-85-46 21:47:00* Test Item Value Reference Range Interpretation Comments Platelet Estimate (test code = 43969-2) ADEQUATE [facility] HospitalPlatelet Morphology Xgklvmt8274-67-97 21:47:00* Test Item Value Reference Range Interpretation Comments Platelet Morphology Comment (test code = 62786-2) NORMAL [facility] HospitalAnisocytosis2018-12-10 21:47:00* Test Item Value Reference Range Interpretation Comments Anisocytosis (test code = 702-1) SLIGHT [facility] HospitalRed Cell Morphology Xfyhshh4785-46-18 21:47:00* Test Item Value Reference Range Interpretation Comments Red Cell Morphology Comment (test code = 6742-1) NORMAL [facility] HospitalDifferential Total Cells Counted 2018-06-18 21:47:00* Test Item Value Reference Range Interpretation Comments Differential Total Cells Counted (test code = Differen tial Total Cells Counted) 100 [facility] HospitalNeutrophils % (Manual)2018-06-18 21:47:00 * Test Item Value Reference Range Interpretation Comments Neutrophils % (Manual) (test code = 24134-8) 66 40-74 [facility] HospitalLymphocytes % (Manual)2018-06-18 21:47:00 * Test Item Value Reference Range Interpretation Comments Lymphocytes % (Manual) (test code = 737-7) 30 19-48 [facility] HospitalEosinophils % (Manual)2018-06-18 21:47:00 * Test Item Value Reference Range Interpretation Comments Eosinophils % (Manual) (test code = 714-6) 4 0-7 [facility] HospitalPlatelet Qyhjrree0074-90-94 21:47:00* Test Item Value Reference Range Interpretation Comments Platelet Estimate (test code = 67049-3) ADEQUATE [facility] HospitalPlatelet Morphology Bzyqoyb7558-62-58 21:47:00* Test Item Value Reference Range Interpretation Comments Platelet Morphology Comment (test code = 28348-0) NORMAL [facility] HospitalAnisocytosis2018-12-10 21:47:00* Test Item Value Reference Range Interpretation Comments Anisocytosis (test code = 702-1) SLIGHT [facility] HospitalRed Cell Morphology Tbsgfbz6814-96-36 21:47:00* Test Item Value Reference Range Interpretation Comments Red Cell Morphology Comment (test code = 6742-1) NORMAL [facility] HospitalDifferential Total Cells Counted 2018-06-18 21:47:00* Test Item Value Reference Range Interpretation Comments Differential Total Cells Counted (test code = Differen tial Total Cells Counted) 100 [facility] HospitalNeutrophils % (Manual)2018-06-18 21:47:00 * Test Item Value Reference Range Interpretation Comments Neutrophils % (Manual) (test code = 58584-9) 66 40-74 [facility] HospitalLymphocytes % (Manual)2018-06-18 21:47:00 * Test Item Value Reference Range Interpretation Comments Lymphocytes % (Manual) (test code = 737-7) 30 19-48 [facility] HospitalEosinophils % (Manual)2018-06-18 21:47:00 * Test Item Value Reference Range Interpretation Comments Eosinophils % (Manual) (test code = 714-6) 4 0-7 [facility] HospitalPlatelet Idivihss2967-28-18 21:47:00* Test Item Value Reference Range Interpretation Comments Platelet Estimate (test code = 67889-9) ADEQUATE [facility] HospitalPlatelet Morphology Pjzjbtb8697-29-59 21:47:00* Test Item Value Reference Range Interpretation Comments Platelet Morphology Comment (test code = 78486-2) NORMAL [facility] HospitalAnisocytosis2018-12-10 21:47:00* Test Item Value Reference Range Interpretation Comments Anisocytosis (test code = 702-1) SLIGHT [facility] HospitalRed Cell Morphology Iydkzpu1634-51-56 21:47:00* Test Item Value Reference Range Interpretation Comments Red Cell Morphology Comment (test code = 6742-1) NORMAL [facility] HospitalDifferential Total Cells Counted 2018-06-18 21:47:00* Test Item Value Reference Range Interpretation Comments Differential Total Cells Counted (test code = Differchas tial Total Cells Counted) 100 [facility] HospitalNeutrophils % (Manual)2018-06-18 21:47:00 * Test Item Value Reference Range Interpretation Comments Neutrophils % (Manual) (test code = 35131-6) 66 40-74 [facility] HospitalLymphocytes % (Manual)2018-06-18 21:47:00 * Test Item Value Reference Range Interpretation Comments Lymphocytes % (Manual) (test code = 737-7) 30 19-48 [facility] HospitalEosinophils % (Manual)2018-06-18 21:47:00 * Test Item Value Reference Range Interpretation Comments Eosinophils % (Manual) (test code = 714-6) 4 0-7 [facility] HospitalPlatelet Qltkuinh4989-28-94 21:47:00* Test Item Value Reference Range Interpretation Comments Platelet Estimate (test code = 49259-5) ADEQUATE [facility] HospitalPlatelet Morphology Xinhzho7935-90-72 21:47:00* Test Item Value Reference Range Interpretation Comments Platelet Morphology Comment (test code = 17120-8) NORMAL [facility] HospitalAnisocytosis2018-12-10 21:47:00* Test Item Value Reference Range Interpretation Comments Anisocytosis (test code = 702-1) SLIGHT [facility] HospitalRed Cell Morphology Madnnnu4734-83-76 21:47:00* Test Item Value Reference Range Interpretation Comments Red Cell Morphology Comment (test code = 6742-1) NORMAL [facility] HospitalCT ABDOMEN/PELVIS [id number] 21:25:00 [place] [address] Patient Name: BELIA VIGIL MR #: [id number] : [birth year] Age/Sex: 37/F Req #: [id number] Adm Physician: Ordered by: IAN SIM MD Report #: [id number] Location: ER Room/Bed: Procedure: 1210- 0023 CT/CT ABDOMEN/PELVIS WO Exam Date: 06/18/18 Ellyn lyle Time: 2105 REPORT STATUS: Signed EXAM: CT [...] ibed By: WAYNE on 06/18/182133 COPY TO: IAN SIM MD Urine HGY4637-09-74 20:59:00* Test Item Value Reference Range Interpretation Comments Urine WBC (test code = 5821-4) >50 0-5 H [facility] HospitalUrine UMG0947-49-52 20:59:00* Test Item Value Reference Range Interpretation Comments Urine RBC (test code = 63726-4) 6-10 0-5 H [facility] HospitalUrine Nqzjpxnf3471-23-45 20:59:00* Test Item Value Reference Range Interpretation Comments Urine Bacteria (test code = 69005-2) MANY NONE H [facility] HospitalUrine Epithelial Tdcgr8613-85-51 20:59:00 * Test Item Value Reference Range Interpretation Comments Urine Epithelial Cells (test code = 62065-7) MODERATE NONE [facility] HospitalTotal Wcojqrhue3121-63-16 20:55:00* Test Item Value Reference Range Interpretation Comments Total Bilirubin (test code = 1975-2) 0.4 0.2-1.2 [facility] HospitalAspartate Amino Transf (AST/SGOT) 2018-06-18 20:55:00* Test Item Value Reference Range Interpretation Comments Aspartate Amino Transf (AST/SGOT) (test code = Aspartate Amino Transf (AST/SGOT)) 117 5-34 H [facility] HospitalAlanine Aminotransferase (ALT/SGPT) 2018-06-18 20:55:00* Test Item Value Reference Range Interpretation Comments Alanine Aminotransferase (ALT/SGPT) (test code = 1742-6) 74 0-55 H [facility] HospitalTotal Lnsuhrh2358-78-02 20:55:00* Test Item Value Reference Range Interpretation Comments Total Protein (test code = 2885-2) 7.2 6.5-8.1 [facility] HospitalAlbumin2018-12-10 20:55:00* Test Item Value Reference Range Interpretation Comments Albumin (test code = 1751-7) 3.6 3.5-5.0 [facility] HospitalGlobulin2018-12-10 20:55:00* Test Item Value Reference Range Interpretation Comments Globulin (test code = 91247-1) 3.6 2.3-3.5 H [facility] HospitalAlbumin/Globulin Kfxdw4119-36-55 20:55:00 * Test Item Value Reference Range Interpretation Comments Albumin/Globulin Ratio (test code = 1759-0) 1.0 0.8-2.0 [facility] HospitalAlkaline Vptugavmeyw3350-39-26 20:55:00* Test Item Value Reference Range Interpretation Comments Alkaline Phosphatase (test code = 6768-6) 147 40-150 [facility] HospitalAmylase Yablk2779-90-09 20:55:00* Test Item Value Reference Range Interpretation Comments Amylase Level (test code = 1798-8) 30 25-125 [facility] HospitalLipase2018-12-10 20:55:00* Test Item Value Reference Range Interpretation Comments Lipase (test code = 3040-3) 4 8-78 L [facility] HospitalUrine Ammeb0826-11-15 20:52:00* Test Item Value Reference Range Interpretation Comments Urine Color (test code = 5778-6) YELLOW YELLOW [facility] HospitalUrine Vtjgldv1233-19-21 20:52:00* Test Item Value Reference Range Interpretation Comments Urine Clarity (test code = 47529-6) CLOUDY CLEAR H [facility] HospitalUrine Specific Beueyye1886-44-67 20:52:00 * Test Item Value Reference Range Interpretation Comments Urine Specific [place] (test code = 5811-5) 1.015 1.010-1.02 5 [facility] HospitalUrine pG4047-23-50 20:52:00* Test Item Value Reference Range Interpretation Comments Urine pH (test code = 95202-1) 6 5-7 [facility] HospitalUrine Leukocyte Ncalkfbf7599-70-40 20:52:00* Test Item Value Reference Range Interpretation Comments Urine Leukocyte Esterase (test code = 5799-2) TRACE NEGATIVE [facility] Jmqsgms7681-96-89 20:52:00* Test Item Value Reference Range Interpretation Comments Urine Nitrite (test code = 27050-4) POSITIVE NEGATIVE [facility] Qvjnyed8508-87-60 20:52:00* Test Item Value Reference Range Interpretation Comments Urine Protein (test code = 5804-0) NEGATIVE NEGATIVE [facility] HospitalUrine Glucose (UA)2018-06-18 20:52:00* Test Item Value Reference Range Interpretation Comments Urine Glucose (UA) (test code = 2349-9) NEGATIVE NEGATIVE [facility] HospitalUrine Uflodsv8142-67-15 20:52:00* Test Item Value Reference Range Interpretation Comments Urine Ketones (test code = 47833-8) NEGATIVE NEGATIVE [facility] Ycxbcsjhpszv9974-87-65 20:52:00* Test Item Value Reference Range Interpretation Comments Urine Urobilinogen (test code = 81656-9) 0.2 0.2-1 [facility] HospitalUrine Xepdiabxu2044-99-96 20:52:00* Test Item Value Reference Range Interpretation Comments Urine Bilirubin (test code = 1978-6) NEGATIVE NEGATIVE [facility] HospitalUrine Rqsrc1138-19-16 20:52:00* Test Item Value Reference Range Interpretation Comments Urine Blood (test code = 78835-8) 1+ NEGATIVE H [facility] Jhqi0803-30-16 20:52:00* Test Item Value Reference Range Interpretation Comments Urine Test (test code = 2106-3) NEGATIVE NEGATIVE [facility] Xiwy4584-69-39 20:52:00* Test Item Value Reference Range Interpretation Comments Urine Test (test code = 2106-3) NEGATIVE NEGATIVE [facility] Lnmv0071-39-63 20:52:00* Test Item Value Reference Range Interpretation Comments Urine Test (test code = 2106-3) NEGATIVE NEGATIVE [facility] Bvzh6972-46-39 20:52:00* Test Item Value Reference Range Interpretation Comments Urine Test (test code = 2106-3) NEGATIVE NEGATIVE [facility] HospitalBASIC METABOLIC SHBSE9088-25-97 07:47:00 * Test Item Value Reference Range Interpretation Comments SODIUM (BEAKER) (test code = 381) 138 meq/L 136-145 POTASSIUM (BEAKER) (test code = 379) 3.5 meq/L 3.5-5.1 CHLORIDE (BEAKER) (test code = 382) 107 meq/L 98-107 CO2 (BEAKER) (test code = 355) 24 meq/L 22-29 BLOOD UREA NITROGEN (BEAKER) (test code = 354) 11 mg/dL 7-21 CREATININE (BEAKER) (test code = 358) 0.62 mg/dL 0.57-1.25 GLUCOSE RANDOM (BEAKER) (test code = 652) 115 mg/dL 70-105 H CALCIUM (BEAKER) (test code = 697) 8.9 mg/dL 8.4-10.2 EGFR (BEAKER) (test code = 1092) 108 mL/min/1.73 sq m ESTIMATED GFR IS NOT ACCURATE CREATININE CLEARANCE IN PREDICTING GLOMERULAR FILTRATION RATE. ESTIMATED GFR IS NOT APPLICABLE FOR DIALYSIS PATIENTS. CBC W/PLT COUNT & AUTO [id number] 07:19:00* Test Item Value Reference Range Interpretation Comments WHITE BLOOD CELL COUNT (BEAKER) (test code = 775) 4.9 K/ L 3.5- 10.5 RED BLOOD CELL COUNT (BEAKER) (test code = 761) 3.68 M/ L 3.93-5 .22 L HEMOGLOBIN (BEAKER) (test code = 410) 10.1 GM/DL 11.2-15.7 L HEMATOCRIT (BEAKER) (test code = 411) 32.2 % 34.1-44.9 L MEAN CORPUSCULAR VOLUME (BEAKER) (test code = 753) 87.5 fL 79. 4-94.8 MEAN CORPUSCULAR HEMOGLOBIN (BEAKER) (test code = 751) 27.4 pg 25.6-32.2 MEAN CORPUSCULAR HEMOGLOBIN CONC (BEAKER) (test code = 752) 31.4 GM/DL 32.2-35.5 L RED CELL DISTRIBUTION WIDTH (BEAKER) (test code = 412) 15.9 % 11.7-14.4 H PLATELET COUNT (BEAKER) (test code = 756) 198 K/CU MM 150-450 MEAN PLATELET VOLUME (BEAKER) (test code = 754) 10.0 fL 9.4-12 .3 NUCLEATED RED BLOOD CELLS (BEAKER) (test code = 413) 0 /100 WBC 0 -0 NEUTROPHILS RELATIVE PERCENT (BEAKER) (test code = 429) 61 % LYMPHOCYTES RELATIVE PERCENT (BEAKER) (test code = 430) 32 % MONOCYTES RELATIVE PERCENT (BEAKER) (test code = 431) 2 % EOSINOPHILS RELATIVE PERCENT (BEAKER) (test code = 432) 5 % BASOPHILS RELATIVE PERCENT (BEAKER) (test code = 437) 0 % NEUTROPHILS ABSOLUTE COUNT (BEAKER) (test code = 670) 2.98 K/ L 1.56-6.13 LYMPHOCYTES ABSOLUTE COUNT (BEAKER) (test code = 414) 1.56 K/ L 1.18-3.74 MONOCYTES ABSOLUTE COUNT (BEAKER) (test code = 415) 0.08 K/ L 0. 24-0.36 L EOSINOPHILS ABSOLUTE COUNT (BEAKER) (test code = 416) 0.22 K/ L 0.04-0.36 BASOPHILS ABSOLUTE COUNT (BEAKER) (test code = 417) 0.01 K/ L 0. 01-0.08 IMMATURE GRANULOCYTES-RELATIVE PERCENT (BEAKER) (test code = 2801) 0 % 0-1 C. DIFFICILE GDH [id number] 21:33:00* Test Item Value Reference Range Interpretation Comments CDT TOXIN (test code = 5916898706) Negative Negative CDT GDH ANTIGEN (test code = 4224546955) Positive Negative A C. difficile present but toxin not detected. [...] of kit performance was done by the [facility] prior to cl inical use.RAPID INFLUENZA A&B [id number] 18:09:00* Test Item Value Reference Range Interpretation Comments RAPID INFLUENZA A AG (BEAKER) (test code = 1622) Negative Negative, Inconclusive RAPID INFLUENZA B AG (BEAKER) (test code = 1623) Negative Negative, Inconclusive [id number] 03:15:00* Test Item Value Reference Range Interpretation Comments LIPASE (BEAKER) (test code = 749) 10 U/L 8-78 BASIC METABOLIC [id number] 03:15:00* Test Item Value Reference Range Interpretation Comments SODIUM (BEAKER) (test code = 381) 139 meq/L 136-145 POTASSIUM (BEAKER) (test code = 379) 3.9 meq/L 3.5-5.1 Specimen slightly hemolyzed CHLORIDE (BEAKER) (test code = 382) 109 meq/L 98-107 H CO2 (BEAKER) (test code = 355) 21 meq/L 22-29 L BLOOD UREA NITROGEN (BEAKER) (test code = 354) 16 mg/dL 7-21 CREATININE (BEAKER) (test code = 358) 0.67 mg/dL 0.57-1.25 Specimen slightly hemolyzed GLUCOSE RANDOM (BEAKER) (test code = 652) 104 mg/dL 70-105 CALCIUM (BEAKER) (test code = 697) 8.5 mg/dL 8.4-10.2 EGFR (BEAKER) (test code = 1092) 99 mL/min/1.73 sq m ESTIMATED GFR IS NOT ACCURATE CREATININE CLEARANCE IN PREDICTING GLOMERULAR FILTRATION RATE. ESTIMATED GFR IS NOT APPLICABLE FOR DIALYSIS PATIENTS. HEPATIC FUNCTION [id number] 03:15:00* Test Item Value Reference Range Interpretation Comments TOTAL PROTEIN (BEAKER) (test code = 770) 7.2 gm/dL 6.0-8.3 Specimen slightly hemolyzed ALBUMIN (BEAKER) (test code = 1145) 3.9 g/dL 3.5-5.0 Specimen slightly hemolyzed BILIRUBIN TOTAL (BEAKER) (test code = 377) 0.2 mg/dL 0.2-1.2 Specimen slightly hemolyzed BILIRUBIN DIRECT (BEAKER) (test code = 706) 0.1 mg/dL 0.1-0.5 Specimen slightly hemolyzed ALKALINE PHOSPHATASE (BEAKER) (test code = 346) 88 U/L 40-150 AST (SGOT) (BEAKER) (test code = 353) 23 U/L 5-34 Specimen slightly hemolyzed ALT (SGPT) (BEAKER) (test code = 347) 21 U/L 6-55 Specimen slightly hemolyzed PT/[id number] 03:12:00* Test Item Value Reference Range Interpretation Comments PROTIME (BEAKER) (test code = 759) 13.5 seconds 11.7-14.7 INR (BEAKER) (test code = 370) 1.0 <=5.9 PARTIAL THROMBOPLASTIN TIME (BEAKER) (test code = 760) 25.0 seconds 22.5-36.0 RECOMMENDED COUMADIN/WARFARIN INR THERAPY RANGESSTANDARD DOSE: 2.0 - 3.0 Inclu yossi: PROPHYLAXIS for venous thrombosis, systemic embolization; TREATMENT for [place] ous thrombosis and/or pulmonary embolus.HIGH RISK: Target INR is 2.5-3.5 for pat ients with mechanical heart valves. SCREEN, [id number] 03:09:00* Test Item Value Reference Range Interpretation Comments TEST URINE (BEAKER) (test code = 583) Negative URINALYSIS W/ REFLEX URINE [id number] 03:09:00* Test Item Value Reference Range Interpretation Comments COLOR (BEAKER) (test code = 470) Yellow CLARITY (BEAKER) (test code = 469) Clear SPECIFIC GRAVITY UA (BEAKER) (test code = 468) 1.020 1.001-1 .035 PH UA (BEAKER) (test code = 467) 6.5 5.0-8.0 PROTEIN UA (BEAKER) (test code = 464) Negative Negative GLUCOSE UA (BEAKER) (test code = 365) Negative Negative KETONES UA (BEAKER) (test code = 371) Negative Negative BILIRUBIN UA (BEAKER) (test code = 462) Negative Negative BLOOD UA (BEAKER) (test code = 461) Negative Negative NITRITE UA (BEAKER) (test code = 465) Negative Negative LEUKOCYTE ESTERASE UA (BEAKER) (test code = 466) Negative Negat ivonne UROBILINOGEN UA (BEAKER) (test code = 463) 0.2 mg/dL 0.2-1.0 RBC UA (BEAKER) (test code = 519) < /HPF WBC UA (BEAKER) (test code = 520) 6 /HPF BACTERIA (BEAKER) (test code = 517) Occasional MUCUS (BEAKER) (test code = 1574) Rare SQUAMOUS EPITHELIAL (BEAKER) (test code = 516) 3 /HPF HYALINE CASTS (BEAKER) (test code = 514) 1 /LPF SOURCE(BEAKER) (test code = 2795) CBC W/PLT COUNT & AUTO [id number] 02:57:00* Test Item Value Reference Range Interpretation Comments WHITE BLOOD CELL COUNT (BEAKER) (test code = 775) 6.0 K/ L 3.5- 10.5 RED BLOOD CELL COUNT (BEAKER) (test code = 761) 3.70 M/ L 3.93-5 .22 L HEMOGLOBIN (BEAKER) (test code = 410) 10.1 GM/DL 11.2-15.7 L HEMATOCRIT (BEAKER) (test code = 411) 31.5 % 34.1-44.9 L MEAN CORPUSCULAR VOLUME (BEAKER) (test code = 753) 85.1 fL 79. 4-94.8 MEAN CORPUSCULAR HEMOGLOBIN (BEAKER) (test code = 751) 27.3 pg 25.6-32.2 MEAN CORPUSCULAR HEMOGLOBIN CONC (BEAKER) (test code = 752) 32.1 GM/DL 32.2-35.5 L RED CELL DISTRIBUTION WIDTH (BEAKER) (test code = 412) 16.1 % 11.7-14.4 H PLATELET COUNT (BEAKER) (test code = 756) 240 K/CU MM 150-450 MEAN PLATELET VOLUME (BEAKER) (test code = 754) 10.5 fL 9.4-12 .3 NUCLEATED RED BLOOD CELLS (BEAKER) (test code = 413) 0 /100 WBC 0 -0 NEUTROPHILS RELATIVE PERCENT (BEAKER) (test code = 429) 58 % LYMPHOCYTES RELATIVE PERCENT (BEAKER) (test code = 430) 35 % MONOCYTES RELATIVE PERCENT (BEAKER) (test code = 431) 5 % EOSINOPHILS RELATIVE PERCENT (BEAKER) (test code = 432) 2 % BASOPHILS RELATIVE PERCENT (BEAKER) (test code = 437) 0 % NEUTROPHILS ABSOLUTE COUNT (BEAKER) (test code = 670) 3.48 K/ L 1.56-6.13 LYMPHOCYTES ABSOLUTE COUNT (BEAKER) (test code = 414) 2.08 K/ L 1.18-3.74 MONOCYTES ABSOLUTE COUNT (BEAKER) (test code = 415) 0.32 K/ L 0. 24-0.36 EOSINOPHILS ABSOLUTE COUNT (BEAKER) (test code = 416) 0.11 K/ L 0.04-0.36 BASOPHILS ABSOLUTE COUNT (BEAKER) (test code = 417) 0.02 K/ L 0. 01-0.08 IMMATURE GRANULOCYTES-RELATIVE PERCENT (BEAKER) (test code = 2801) 0 % 0-1 Sodium [id number] 04:02:00* Test Item Value Reference Range Interpretation Comments Sodium Level (test code = 2951-2) 138 136-145 [facility] Pdwvs0768-50-20 04:02:00* Test Item Value Reference Range Interpretation Comments Potassium Level (test code = 2823-3) 3.8 3.5-5.1 [facility] HospitalChloride Pxvrv3672-26-73 04:02:00* Test Item Value Reference Range Interpretation Comments Chloride Level (test code = 2075-0) 108 98-107 H [facility] HospitalCarbon Dioxide Auppz9454-60-63 04:02:00* Test Item Value Reference Range Interpretation Comments Carbon Dioxide Level (test code = 2028-9) 22 22-29 [facility] HospitalAnion [id number] 04:02:00* Test Item Value Reference Range Interpretation Comments Anion Gap (test code = 99085-5) 11.8 8-16 [facility] HospitalBlood Urea Nmitsknz4711-55-07 04:02:00* Test Item Value Reference Range Interpretation Comments Blood Urea Nitrogen (test code = 3094-0) 8 7-26 [facility] HospitalCreatinine2018-11-24 04:02:00* Test Item Value Reference Range Interpretation Comments Creatinine (test code = 2160-0) 0.72 0.57-1.11 [facility] HospitalBUN/Creatinine Usgau4492-77-90 04:02:00* Test Item Value Reference Range Interpretation Comments BUN/Creatinine Ratio (test code = 3097-3) 11 6-25 [facility] HospitalEstimat Glomerular Filtration Rate 2018-06-02 04:02:00* Test Item Value Reference Range Interpretation Comments Estimat Glomerular Filtration Rate (test code = 984634823) > 60 >60 Ranges were taken from the National Kidney Disease Education Program and the [facility] Foundation literature.Reference ranges:60 or greater: Jahggs57-69 ( for 3 consecutive months): Chronic kidney disease 15 or less: Kidney failureHouston Methodist West HospitalGlucose Scyvc2719-40-28 04:02:00* Test Item Value Reference Range Interpretation Comments Glucose Level (test code = QWS8081) 107 74-118 [facility] HospitalCalcium Fyzej9243-65-56 04:02:00* Test Item Value Reference Range Interpretation Comments Calcium Level (test code = 21769-9) 9.7 8.4-10.2 [facility] HospitalMagnesium Wtopj0068-10-35 04:02:00* Test Item Value Reference Range Interpretation Comments Magnesium Level (test code = 90317-6) 1.9 1.3-2.1 [facility] Ursoj0021-91-26 04:02:00* Test Item Value Reference Range Interpretation Comments Sodium Level (test code = 2951-2) 138 136-145 [facility] HospitalPotassium Nrklx3657-99-14 04:02:00* Test Item Value Reference Range Interpretation Comments Potassium Level (test code = 2823-3) 3.8 3.5-5.1 [facility] HospitalChloride Kyhkc0743-93-45 04:02:00* Test Item Value Reference Range Interpretation Comments Chloride Level (test code = 2075-0) 108 98-107 H [facility] HospitalCarbon Dioxide Zafvk3201-19-03 04:02:00* Test Item Value Reference Range Interpretation Comments Carbon Dioxide Level (test code = 2028-9) 22 22-29 [facility] HospitalAnion Pos1674-70-32 04:02:00* Test Item Value Reference Range Interpretation Comments Anion Gap (test code = 24913-2) 11.8 8-16 [facility] HospitalBlood Urea Gtqptcnr8686-01-66 04:02:00* Test Item Value Reference Range Interpretation Comments Blood Urea Nitrogen (test code = 3094-0) 8 7-26 [facility] HospitalCreatinine2018-11-24 04:02:00* Test Item Value Reference Range Interpretation Comments Creatinine (test code = 2160-0) 0.72 0.57-1.11 [facility] HospitalBUN/Creatinine Wnfvf0325-42-82 04:02:00* Test Item Value Reference Range Interpretation Comments BUN/Creatinine Ratio (test code = 3097-3) 11 6-25 [facility] HospitalEstimat Glomerular Filtration Rate 2018-06-02 04:02:00* Test Item Value Reference Range Interpretation Comments Estimat Glomerular Filtration Rate (test code = 183116071) > 60 >60 Ranges were taken from the National Kidney Disease Education Program and the [facility] literature.Reference ranges:60 or greater: Chasxs93-91 ( for 3 consecutive months): Chronic kidney disease 15 or less: Kidney failureHouston Methodist West HospitalGlucose Luhkl1240-50-05 04:02:00* Test Item Value Reference Range Interpretation Comments Glucose Level (test code = QSK4858) 107 74-118 [facility] HospitalCalcium Pfrhv3308-52-02 04:02:00* Test Item Value Reference Range Interpretation Comments Calcium Level (test code = 42111-9) 9.7 8.4-10.2 [facility] HospitalMagnesium Xfeqv2745-09-08 04:02:00* Test Item Value Reference Range Interpretation Comments Magnesium Level (test code = 31706-8) 1.9 1.3-2.1 [facility] HospitalWhite Blood Iyzpy5444-09-86 03:50:00* Test Item Value Reference Range Interpretation Comments White Blood Count (test code = 6690-2) 4.90 4.8-10.8 [facility] HospitalRed Blood Kkuyu0198-89-06 03:50:00* Test Item Value Reference Range Interpretation Comments Red Blood Count (test code = 789-8) 3.53 3.6-5.1 L [facility] HospitalHemoglobin2018-11-24 03:50:00* Test Item Value Reference Range Interpretation Comments Hemoglobin (test code = 71822-7) 9.6 12.0-16.0 L [facility] HospitalHematocrit2018-11-24 03:50:00* Test Item Value Reference Range Interpretation Comments Hematocrit (test code = 4544-3) 29.5 34.2-44.1 L [facility] HospitalMean Corpuscular Xuowpw4082-63-78 03:50:00* Test Item Value Reference Range Interpretation Comments Mean Corpuscular Volume (test code = 787-2) 83.6 81-99 [facility] HospitalMean Corpuscular Scnzhuhgco7335-37-15 03:50:00* Test Item Value Reference Range Interpretation Comments Mean Corpuscular Hemoglobin (test code = 785-6) 27.2 28-32 L [facility] HospitalMean Corpuscular Hemoglobin Concent 2018-06-02 03:50:00* Test Item Value Reference Range Interpretation Comments Mean Corpuscular Hemoglobin Concent (test code = 786-4) 32.5 31-35 [facility] HospitalRed Cell Distribution Yeipq2596-52-62 03:50:00* Test Item Value Reference Range Interpretation Comments Red Cell Distribution Width (test code = 40664-2) 16.1 11.7 -14.4 H [facility] HospitalPlatelet Tpwcq7503-72-97 03:50:00* Test Item Value Reference Range Interpretation Comments Platelet Count (test code = 777-3) 211 140-360 [facility] HospitalNeutrophils (%) (Auto)2018-06-02 03:50:00 * Test Item Value Reference Range Interpretation Comments Neutrophils (%) (Auto) (test code = 78161-9) 51.3 38.7-80.0 [facility] HospitalLymphocytes (%) (Auto)2018-06-02 03:50:00 * Test Item Value Reference Range Interpretation Comments Lymphocytes (%) (Auto) (test code = 736-9) 31.8 18.0-39.1 [facility] HospitalMonocytes (%) (Auto)2018-06-02 03:50:00* Test Item Value Reference Range Interpretation Comments Monocytes (%) (Auto) (test code = 5905-5) 9.4 4.4-11.3 [facility] HospitalEosinophils (%) (Auto)2018-06-02 03:50:00 * Test Item Value Reference Range Interpretation Comments Eosinophils (%) (Auto) (test code = 713-8) 7.1 0.0-6.0 H [facility] HospitalBasophils (%) (Auto)2018-06-02 03:50:00* Test Item Value Reference Range Interpretation Comments Basophils (%) (Auto) (test code = 706-2) 0.4 0.0-1.0 [facility] HospitalIM GRANULOCYTES %2018-06-02 03:50:00* Test Item Value Reference Range Interpretation Comments IM GRANULOCYTES % (test code = IM GRANULOCYTES %) 0.0 0.0- 1.0 [facility] HospitalNeutrophils # (Auto)2018-06-02 03:50:00* Test Item Value Reference Range Interpretation Comments Neutrophils # (Auto) (test code = 751-8) 2.5 2.1-6.9 [facility] HospitalLymphocytes # (Auto)2018-06-02 03:50:00* Test Item Value Reference Range Interpretation Comments Lymphocytes # (Auto) (test code = 98209-1) 1.6 1.0-3.2 [facility] HospitalMonocytes # (Auto)2018-06-02 03:50:00* Test Item Value Reference Range Interpretation Comments Monocytes # (Auto) (test code = 742-7) 0.5 0.2-0.8 [facility] HospitalEosinophils # (Auto)2018-06-02 03:50:00* Test Item Value Reference Range Interpretation Comments Eosinophils # (Auto) (test code = 711-2) 0.4 0.0-0.4 [facility] HospitalBasophils # (Auto)2018-06-02 03:50:00* Test Item Value Reference Range Interpretation Comments Basophils # (Auto) (test code = 704-7) 0.0 0.0-0.1 [facility] HospitalAbsolute Immature Granulocyte (auto 2018-06-02 03:50:00* Test Item Value Reference Range Interpretation Comments Absolute Immature Granulocyte (auto (may t code = Absolute Immature Granulocyte (auto) 0 0-0.1 [facility] HospitalWhite Blood Rrkmw2525-24-49 03:50:00* Test Item Value Reference Range Interpretation Comments White Blood Count (test code = 6690-2) 4.90 4.8-10.8 [facility] HospitalRed Blood Bvxaa2078-67-01 03:50:00* Test Item Value Reference Range Interpretation Comments Red Blood Count (test code = 789-8) 3.53 3.6-5.1 L [facility] HospitalHemoglobin2018-11-24 03:50:00* Test Item Value Reference Range Interpretation Comments Hemoglobin (test code = 41211-6) 9.6 12.0-16.0 L [facility] HospitalHematocrit2018-11-24 03:50:00* Test Item Value Reference Range Interpretation Comments Hematocrit (test code = 4544-3) 29.5 34.2-44.1 L [facility] HospitalMean Corpuscular Bgotdj4444-88-85 03:50:00* Test Item Value Reference Range Interpretation Comments Mean Corpuscular Volume (test code = 787-2) 83.6 81-99 [facility] HospitalMean Corpuscular Rpqxrpssql9347-05-41 03:50:00* Test Item Value Reference Range Interpretation Comments Mean Corpuscular Hemoglobin (test code = 785-6) 27.2 28-32 L [facility] HospitalMean Corpuscular Hemoglobin Concent 2018-06-02 03:50:00* Test Item Value Reference Range Interpretation Comments Mean Corpuscular Hemoglobin Concent (test code = 786-4) 32.5 31-35 [facility] HospitalRed Cell Distribution Zlomm9085-22-10 03:50:00* Test Item Value Reference Range Interpretation Comments Red Cell Distribution Width (test code = 11951-2) 16.1 11.7 -14.4 H [facility] HospitalPlatelet Qfiom5912-13-49 03:50:00* Test Item Value Reference Range Interpretation Comments Platelet Count (test code = 777-3) 211 140-360 [facility] HospitalNeutrophils (%) (Auto)2018-06-02 03:50:00 * Test Item Value Reference Range Interpretation Comments Neutrophils (%) (Auto) (test code = 26732-7) 51.3 38.7-80.0 [facility] HospitalLymphocytes (%) (Auto)2018-06-02 03:50:00 * Test Item Value Reference Range Interpretation Comments Lymphocytes (%) (Auto) (test code = 736-9) 31.8 18.0-39.1 [facility] HospitalMonocytes (%) (Auto)2018-06-02 03:50:00* Test Item Value Reference Range Interpretation Comments Monocytes (%) (Auto) (test code = 5905-5) 9.4 4.4-11.3 [facility] HospitalEosinophils (%) (Auto)2018-06-02 03:50:00 * Test Item Value Reference Range Interpretation Comments Eosinophils (%) (Auto) (test code = 713-8) 7.1 0.0-6.0 H [facility] HospitalBasophils (%) (Auto)2018-06-02 03:50:00* Test Item Value Reference Range Interpretation Comments Basophils (%) (Auto) (test code = 706-2) 0.4 0.0-1.0 [facility] HospitalIM GRANULOCYTES %2018-06-02 03:50:00* Test Item Value Reference Range Interpretation Comments IM GRANULOCYTES % (test code = IM GRANULOCYTES %) 0.0 0.0- 1.0 [facility] HospitalNeutrophils # (Auto)2018-06-02 03:50:00* Test Item Value Reference Range Interpretation Comments Neutrophils # (Auto) (test code = 751-8) 2.5 2.1-6.9 [facility] HospitalLymphocytes # (Auto)2018-06-02 03:50:00* Test Item Value Reference Range Interpretation Comments Lymphocytes # (Auto) (test code = 87707-2) 1.6 1.0-3.2 [facility] HospitalMonocytes # (Auto)2018-06-02 03:50:00* Test Item Value Reference Range Interpretation Comments Monocytes # (Auto) (test code = 742-7) 0.5 0.2-0.8 [facility] HospitalEosinophils # (Auto)2018-06-02 03:50:00* Test Item Value Reference Range Interpretation Comments Eosinophils # (Auto) (test code = 711-2) 0.4 0.0-0.4 [facility] HospitalBasophils # (Auto)2018-06-02 03:50:00* Test Item Value Reference Range Interpretation Comments Basophils # (Auto) (test code = 704-7) 0.0 0.0-0.1 [facility] HospitalAbsolute Immature Granulocyte (auto 2018-06-02 03:50:00* Test Item Value Reference Range Interpretation Comments Absolute Immature Granulocyte (auto (may t code = Absolute Immature Granulocyte (auto) 0 0-0.1 [facility] HospitalABDOMEN-1VIEW (KUB)2018-05-30 11:11:00 [place] [address] Patient Name: BELIA VIGIL MR #: [id number] : [birth year] 79 Age/Sex: 37/F Req #: [id number] Adm Physician: RODDY MALAVE MD Ordered by: Antonella Luke [employer] Report #: [id number] Location: [facility] Room/Bed: [place] [address] Procedure: [id number] D X/ABDOMEN-1VIEW (KUB) Exam Date: 05/30/18 Exam [...] By: KALINA on 05/30/18 1111 COPY TO: ANTONELLA LUKE NP Vitamin B12 Ikcvk1026-95-51 07:48:00* Test Item Value Reference Range Interpretation Comments Vitamin B12 Level (test code = 10158-9) 388 213-816 [facility] HospitalFolate2018-11-21 07:48:00* Test Item Value Reference Range Interpretation Comments Folate (test code = 2284-8) 32.2 7.0-15.4 H [facility] HospitalVitamin B12 Radbn5820-24-17 07:48:00* Test Item Value Reference Range Interpretation Comments Vitamin B12 Level (test code = 35303-0) 388 213-816 [facility] HospitalFolate2018-11-21 07:48:00* Test Item Value Reference Range Interpretation Comments Folate (test code = 2284-8) 32.2 7.0-15.4 H [facility] HospitalVitamin B12 Dpnmc7366-55-02 07:48:00* Test Item Value Reference Range Interpretation Comments Vitamin B12 Level (test code = 02480-8) 388 213-816 [facility] HospitalFolate2018-11-21 07:48:00* Test Item Value Reference Range Interpretation Comments Folate (test code = 2284-8) 32.2 7.0-15.4 H [facility] HospitalVitamin B12 Hffzj1805-24-54 07:48:00* Test Item Value Reference Range Interpretation Comments Vitamin B12 Level (test code = 50677-2) 388 213-816 [facility] HospitalFolate2018-11-21 07:48:00* Test Item Value Reference Range Interpretation Comments Folate (test code = 2284-8) 32.2 7.0-15.4 H [facility] HospitalVitamin B12 Qijke1447-14-14 07:48:00* Test Item Value Reference Range Interpretation Comments Vitamin B12 Level (test code = 01782-2) 388 213-816 [facility] HospitalFolate2018-11-21 07:48:00* Test Item Value Reference Range Interpretation Comments Folate (test code = 2284-8) 32.2 7.0-15.4 H [facility] HospitalVitamin B12 Obnan7408-83-95 07:48:00* Test Item Value Reference Range Interpretation Comments Vitamin B12 Level (test code = 58459-2) 388 213-816 [facility] HospitalFolate2018-11-21 07:48:00* Test Item Value Reference Range Interpretation Comments Folate (test code = 2284-8) 32.2 7.0-15.4 H [facility] HospitalVitamin B12 Nhixk4768-62-59 07:48:00* Test Item Value Reference Range Interpretation Comments Vitamin B12 Level (test code = 32815-7) 388 213-816 [facility] HospitalFolate2018-11-21 07:48:00* Test Item Value Reference Range Interpretation Comments Folate (test code = 2284-8) 32.2 7.0-15.4 H [facility] HospitalFerritin2018-11-21 06:38:00* Test Item Value Reference Range Interpretation Comments Ferritin (test code = 2276-4) 15.99 4.63-204.00 [facility] HospitalFerritin2018-11-21 06:38:00* Test Item Value Reference Range Interpretation Comments Ferritin (test code = 2276-4) 15.99 4.63-204.00 [facility] HospitalFerritin2018-11-21 06:38:00* Test Item Value Reference Range Interpretation Comments Ferritin (test code = 2276-4) 15.99 4.63-204.00 [facility] HospitalFerritin2018-11-21 06:38:00* Test Item Value Reference Range Interpretation Comments Ferritin (test code = 2276-4) 15.99 4.63-204.00 [facility] HospitalFerritin2018-11-21 06:38:00* Test Item Value Reference Range Interpretation Comments Ferritin (test code = 2276-4) 15.99 4.63-204.00 [facility] HospitalFerritin2018-11-21 06:38:00* Test Item Value Reference Range Interpretation Comments Ferritin (test code = 2276-4) 15.99 4.63-204.00 [facility]* Test Item Value Reference Range Interpretation Comments Ferritin (test code = 2276-4) 15.99 4.63-204.00 [facility]2018-11-21 06:17:00* Test Item Value Reference Range Interpretation Comments Iron Level (test code = 2498-4) 113 50-170 [facility]Total Iron Binding Kvmqtaas0932-61-75 06:17:00* Test Item Value Reference Range Interpretation Comments Total Iron Binding Capacity (test code = 2500-7) 449 261-4 78 [facility] HospitalPercent Iron Kmvdzwmyqv2964-10-69 06:17:00* Test Item Value Reference Range Interpretation Comments Percent Iron Saturation (test code = 2502-3) 25 15-50 [facility] 06:17:00* Test Item Value Reference Range Interpretation Comments Transferrin (test code = 3034-6) 321 180-382 [facility]2018-11-21 06:17:00* Test Item Value Reference Range Interpretation Comments Iron Level (test code = 2498-4) 113 50-170 [facility] Iron Binding Vyrhkhje9651-94-58 06:17:00* Test Item Value Reference Range Interpretation Comments Total Iron Binding Capacity (test code = 2500-7) 449 261-4 78 [facility] Iron Yeubvhmepv3354-97-59 06:17:00* Test Item Value Reference Range Interpretation Comments Percent Iron Saturation (test code = 2502-3) 25 15-50 [facility]Trans[facility]2018-[facility] 06:17:00* Test Item Value Reference Range Interpretation Comments Transferrin (test code = 3034-6) 321 180-382 [facility]2018-11-21 06:17:00* Test Item Value Reference Range Interpretation Comments Iron Level (test code = 2498-4) 113 50-170 [facility] Iron Binding Oicjxxiu3768-82-70 06:17:00* Test Item Value Reference Range Interpretation Comments Total Iron Binding Capacity (test code = 2500-7) 449 261-4 78 [facility] Iron Uefgjoeips0685-60-45 06:17:00* Test Item Value Reference Range Interpretation Comments Percent Iron Saturation (test code = 2502-3) 25 15-50 [facility]Trans[facility] 06:17:00* Test Item Value Reference Range Interpretation Comments Transferrin (test code = 3034-6) 321 180-382 [facility]2018-11-21 06:17:00* Test Item Value Reference Range Interpretation Comments Iron Level (test code = 2498-4) 113 50-170 [facility] Iron Binding Ovslteih3381-75-18 06:17:00* Test Item Value Reference Range Interpretation Comments Total Iron Binding Capacity (test code = 2500-7) 449 261-4 78 [facility] Iron Mcswhdznig3286-06-96 06:17:00* Test Item Value Reference Range Interpretation Comments Percent Iron Saturation (test code = 2502-3) 25 15-50 [facility]Trans[facility]2018-[facility] 06:17:00* Test Item Value Reference Range Interpretation Comments Transferrin (test code = 3034-6) 321 180-382 [facility]2018-11-21 06:17:00* Test Item Value Reference Range Interpretation Comments Iron Level (test code = 2498-4) 113 50-170 [facility] Iron Binding Stqedweh0692-69-19 06:17:00* Test Item Value Reference Range Interpretation Comments Total Iron Binding Capacity (test code = 2500-7) 449 261-4 78 [facility] Iron Kcknuognhu2652-27-36 06:17:00* Test Item Value Reference Range Interpretation Comments Percent Iron Saturation (test code = 2502-3) 25 15-50 [facility]Trans[facility]2018-[facility] 06:17:00* Test Item Value Reference Range Interpretation Comments Transferrin (test code = 3034-6) 321 180-382 [facility]2018-11-21 06:17:00* Test Item Value Reference Range Interpretation Comments Iron Level (test code = 2498-4) 113 50-170 [facility] Iron Binding Yanqkecv9413-82-77 06:17:00* Test Item Value Reference Range Interpretation Comments Total Iron Binding Capacity (test code = 2500-7) 449 261-4 78 [facility] Iron Kncknqlajc9765-20-38 06:17:00* Test Item Value Reference Range Interpretation Comments Percent Iron Saturation (test code = 2502-3) 25 15-50 [facility]2018-11-21 06:17:00* Test Item Value Reference Range Interpretation Comments Transferrin (test code = 3034-6) 321 180-382 [facility]2018-11-21 06:17:00* Test Item Value Reference Range Interpretation Comments Iron Level (test code = 2498-4) 113 50-170 [facility] Iron Binding Pmkxhjgu4896-91-82 06:17:00* Test Item Value Reference Range Interpretation Comments Total Iron Binding Capacity (test code = 2500-7) 449 261-4 78 [facility] Iron Hlwfbwpamb6187-48-97 06:17:00* Test Item Value Reference Range Interpretation Comments Percent Iron Saturation (test code = 2502-3) 25 15-50 [facility]Trans[facility] 06:17:00* Test Item Value Reference Range Interpretation Comments Transferrin (test code = 3034-6) 321 180-382 [facility] HospitalTotal Elajigynx6820-23-97 06:15:00* Test Item Value Reference Range Interpretation Comments Total Bilirubin (test code = 1974-2) 0.5 0.2-1.2 [facility] HospitalDirect Jtyatoqqf1227-88-60 06:15:00* Test Item Value Reference Range Interpretation Comments Direct Bilirubin (test code = 34988-5) 0.3 0.0-0.5 [facility] HospitalAspartate Amino Transf (AST/SGOT) 2018-05-30 06:15:00* Test Item Value Reference Range Interpretation Comments Aspartate Amino Transf (AST/SGOT) (test code = Aspartate Amino Transf (AST/SGOT)) 39 5-34 H [facility] HospitalAlanine Aminotransferase (ALT/SGPT) 2018-05-30 06:15:00* Test Item Value Reference Range Interpretation Comments Alanine Aminotransferase (ALT/SGPT) (test code = 1742-6) 38 0-55 [facility] Ujlmgsi5060-03-94 06:15:00* Test Item Value Reference Range Interpretation Comments Total Protein (test code = 2885-2) 7.2 6.5-8.1 [facility] HospitalAlbumin2018-11-21 06:15:00* Test Item Value Reference Range Interpretation Comments Albumin (test code = 1751-7) 3.8 3.5-5.0 [facility] HospitalAlkaline Ndypfjamyzj0686-08-96 06:15:00* Test Item Value Reference Range Interpretation Comments Alkaline Phosphatase (test code = 6768-6) 86 40-150 [facility] Cvbdyuubn9131-28-44 06:15:00* Test Item Value Reference Range Interpretation Comments Total Bilirubin (test code = 1975-2) 0.5 0.2-1.2 [facility] HospitalDirect Uutpdpsre9256-23-98 06:15:00* Test Item Value Reference Range Interpretation Comments Direct Bilirubin (test code = 85849-6) 0.3 0.0-0.5 [facility] HospitalAspartate Amino Transf (AST/SGOT) 2018-05-30 06:15:00* Test Item Value Reference Range Interpretation Comments Aspartate Amino Transf (AST/SGOT) (test code = Aspartate Amino Transf (AST/SGOT)) 39 5-34 H [facility] HospitalAlanine Aminotransferase (ALT/SGPT) 2018-05-30 06:15:00* Test Item Value Reference Range Interpretation Comments Alanine Aminotransferase (ALT/SGPT) (test code = 1742-6) 38 0-55 [facility] HospitalTotal Klkpzyh5649-77-17 06:15:00* Test Item Value Reference Range Interpretation Comments Total Protein (test code = 2885-2) 7.2 6.5-8.1 [facility] HospitalAlbumin2018-11-21 06:15:00* Test Item Value Reference Range Interpretation Comments Albumin (test code = 1751-7) 3.8 3.5-5.0 [facility] HospitalAlkaline Cwnwnzsvfdd8708-01-49 06:15:00* Test Item Value Reference Range Interpretation Comments Alkaline Phosphatase (test code = 6768-6) 86 40-150 [facility] Duvbekyqp7874-61-63 06:15:00* Test Item Value Reference Range Interpretation Comments Direct Bilirubin (test code = 67313-5) 0.3 0.0-0.5 [facility] Qmcgekxxq6582-66-70 06:15:00* Test Item Value Reference Range Interpretation Comments Direct Bilirubin (test code = 33086-9) 0.3 0.0-0.5 [facility] Udwbuadyx6517-27-93 06:15:00* Test Item Value Reference Range Interpretation Comments Direct Bilirubin (test code = 18853-2) 0.3 0.0-0.5 [facility] Orqibyacs0747-26-64 06:15:00* Test Item Value Reference Range Interpretation Comments Direct Bilirubin (test code = 03920-5) 0.3 0.0-0.5 [facility] Hlwsnijnn7535-01-92 06:15:00* Test Item Value Reference Range Interpretation Comments Direct Bilirubin (test code = 63498-3) 0.3 0.0-0.5 [facility] HospitalBLOOD ZLYTPXB1414-15-26 23:01:00* Test Item Value Reference Range Interpretation Comments CULTURE (BEAKER) (test code = 1095) No growth in 5 days Clostridium Difficile Toxin A & [id number] 14:56:00* Test Item Value Reference Range Interpretation Comments Clostridium Difficile Toxin A & B (test code = 734386538) POSI TIVE NEGATIVE H Results called to ANGELI ESCOBAR at 1454 on 05/29/18 by Yacomansi Mckeon. RB [place]. Results called to QUITA JACOB in infection control at 1454 on 05/29/18 by Yacomansi Mckeon.Testing on stool aspirate specimens is outside chief librarian circulation department claims sin ce specimen type not validated on this assay.[facility] HospitalClostridium Difficile Toxin A & [id number] 14:56:00* Test Item Value Reference Range Interpretation Comments Clostridium Difficile Toxin A & B (test code = 595822221) POSI TIVE NEGATIVE H Results called to ANGELI ESCOBAR at 1454 on 05/29/18 by Yacomansi Mckeon. RB [place]. Results called to QUITA JACOB in infection control at 1454 on 05/29/18 by Yacomansi Mckeon.Testing on stool aspirate specimens is outside chief librarian circulation department claims sin ce specimen type not validated on this assay.[facility] HospitalClostridium Difficile Toxin A & [id number] 14:56:00* Test Item Value Reference Range Interpretation Comments Clostridium Difficile Toxin A & B (test code = 836525408) POSI TIVE NEGATIVE H Results called to ANGELI ESCOBAR at 1454 on 05/29/18 by Yacomansi Mckeon. RB [place]. Results called to QUITA JAOCB in infection control at 1454 on 05/29/18 by Yacoob Linda.Testing on stool aspirate specimens is outside chief librarian circulation department claims sin ce specimen type not validated on this assay.[facility] Camp[facility] Occult Kzufm5280-01-93 12:45:00* Test Item Value Reference Range Interpretation Comments Stool Occult Blood (test code = 2335-8) POSITIVE NEGATIVE [facility] Hguog6577-72-88 12:45:00* Test Item Value Reference Range Interpretation Comments Stool Occult Blood (test code = 2335-8) POSITIVE NEGATIVE [facility] MZFOYGKTAKE8257-35-20 08:16:00* Test Item Value Reference Range Interpretation Comments DIRECT SMEAR - O\\T\\P (BEAKER) (test code = 196) No ova or parasites seen Test not performed at [facility]. See scanned report. CONCENTRATE SMEAR - O\\T\\P (BEAKER) (test code = 247) No ova or parasites seen No ova or parasites seen TRICHROME SMEAR - O\\T\\P (BEAKER) (test code = 248) No ova or parasites seen No ova or parasites seen Rpqewjhe4168-51-19 23:13:00* Test Item Value Reference Range Interpretation Comments Globulin (test code = 14881-0) 3.7 2.3-3.5 H [facility] HospitalAlbumin/Globulin Oczvk0678-34-66 23:13:00 * Test Item Value Reference Range Interpretation Comments Albumin/Globulin Ratio (test code = 1759-0) 1.1 0.8-2.0 [facility] HospitalAmylase Oruhe1083-07-53 23:13:00* Test Item Value Reference Range Interpretation Comments Amylase Level (test code = 1798-8) 55 25-125 [facility] HospitalLipase2018-11-19 23:13:00* Test Item Value Reference Range Interpretation Comments Lipase (test code = 3040-3) 5 8-78 L [facility] HospitalGlobulin2018-11-19 23:13:00* Test Item Value Reference Range Interpretation Comments Globulin (test code = 22690-5) 3.7 2.3-3.5 H [facility] HospitalAlbumin/Globulin Eprnm1815-96-40 23:13:00 * Test Item Value Reference Range Interpretation Comments Albumin/Globulin Ratio (test code = 1759-0) 1.1 0.8-2.0 [facility] HospitalAmylase Loznt5214-71-75 23:13:00* Test Item Value Reference Range Interpretation Comments Amylase Level (test code = 1798-8) 55 25-125 [facility] HospitalLipase2018-11-19 23:13:00* Test Item Value Reference Range Interpretation Comments Lipase (test code = 3040-3) 5 8-78 L [facility] HospitalUrine WSA6860-56-54 23:06:00* Test Item Value Reference Range Interpretation Comments Urine WBC (test code = 5821-4) 0-5 0-5 [facility] HospitalUrine XDJ2510-47-26 23:06:00* Test Item Value Reference Range Interpretation Comments Urine RBC (test code = 12864-1) 0-5 0-5 [facility] HospitalUrine Mqmppjwb1512-27-54 23:06:00* Test Item Value Reference Range Interpretation Comments Urine Bacteria (test code = 27392-1) RARE NONE [facility] HospitalUrine Epithelial Fmsgh2826-42-43 23:06:00 * Test Item Value Reference Range Interpretation Comments Urine Epithelial Cells (test code = 39074-6) RARE NONE [facility] HospitalUrine VWG2775-37-86 23:06:00* Test Item Value Reference Range Interpretation Comments Urine WBC (test code = 5821-4) 0-5 0-5 [facility] HospitalUrine DGS6528-10-30 23:06:00* Test Item Value Reference Range Interpretation Comments Urine RBC (test code = 26337-0) 0-5 0-5 [facility] HospitalUrine Fipqgbnc0558-63-00 23:06:00* Test Item Value Reference Range Interpretation Comments Urine Bacteria (test code = 63822-9) RARE NONE [facility] HospitalUrine Epithelial Yvlij8095-88-84 23:06:00 * Test Item Value Reference Range Interpretation Comments Urine Epithelial Cells (test code = 34407-4) RARE NONE [facility] HospitalUrine Qpre2778-37-47 23:04:00* Test Item Value Reference Range Interpretation Comments Urine Test (test code = 2106-3) NEGATIVE NEGATIVE [facility] HospitalUrine Xyji7422-20-59 23:04:00* Test Item Value Reference Range Interpretation Comments Urine Test (test code = 2106-3) NEGATIVE NEGATIVE [facility] HospitalUrine Pjnpq8003-14-44 22:59:00* Test Item Value Reference Range Interpretation Comments Urine Color (test code = 5778-6) YELLOW YELLOW [facility] HospitalUrine Uqwbzhz1889-42-32 22:59:00* Test Item Value Reference Range Interpretation Comments Urine Clarity (test code = 11755-5) CLEAR CLEAR [facility] HospitalUrine Specific Nrrxcvg1659-87-69 22:59:00 * Test Item Value Reference Range Interpretation Comments Urine Specific [place] (test code = 5811-5) 1.015 1.010-1.02 5 [facility] HospitalUrine [id number] 22:59:00* Test Item Value Reference Range Interpretation Comments Urine pH (test code = 20684-0) 7 5-7 [facility] HospitalU[facility] Leukocyte Ixtgngkd7346-73-84 22:59:00* Test Item Value Reference Range Interpretation Comments Urine Leukocyte Esterase (test code = 5799-2) NEGATIVE NEGATIVE [facility] HospitalUrine Tcpwsrh1370-62-22 22:59:00* Test Item Value Reference Range Interpretation Comments Urine Nitrite (test code = 16582-5) NEGATIVE NEGATIVE [facility] HospitalUrine Saamire7140-02-28 22:59:00* Test Item Value Reference Range Interpretation Comments Urine Protein (test code = 5804-0) NEGATIVE NEGATIVE [facility] HospitalUrine Glucose (UA)2018-05-28 22:59:00* Test Item Value Reference Range Interpretation Comments Urine Glucose (UA) (test code = 2349-9) NEGATIVE NEGATIVE [facility] HospitalUrine Bciwobd0370-29-81 22:59:00* Test Item Value Reference Range Interpretation Comments Urine Ketones (test code = 28797-5) NEGATIVE NEGATIVE [facility] HospitalUrine Aprwjmlmyoos7447-37-50 22:59:00* Test Item Value Reference Range Interpretation Comments Urine Urobilinogen (test code = 96242-4) 0.2 0.2-1 [facility] HospitalUrine Nraajlmqz4301-61-73 22:59:00* Test Item Value Reference Range Interpretation Comments Urine Bilirubin (test code = 1978-6) NEGATIVE NEGATIVE [facility] HospitalU[facility] Cjdoi8957-94-04 22:59:00* Test Item Value Reference Range Interpretation Comments Urine Blood (test code = 55700-5) NEGATIVE NEGATIVE [facility] HospitalU[facility] Pljvt8822-47-99 22:59:00* Test Item Value Reference Range Interpretation Comments Urine Color (test code = 5778-6) YELLOW YELLOW [facility] HospitalU[facility] Owddwym9484-82-89 22:59:00* Test Item Value Reference Range Interpretation Comments Urine Clarity (test code = 62697-1) CLEAR CLEAR [facility] HospitalUrine Specific Qmuzpoc3380-75-94 22:59:00 * Test Item Value Reference Range Interpretation Comments Urine Specific [place] (test code = 5811-5) 1.015 1.010-1.02 5 [facility] HospitalU[facility] fY9544-68-46 22:59:00* Test Item Value Reference Range Interpretation Comments Urine pH (test code = 46423-9) 7 5-7 [facility] HospitalU[facility] Leukocyte Dpjuwumv2822-39-31 22:59:00* Test Item Value Reference Range Interpretation Comments Urine Leukocyte Esterase (test code = 5799-2) NEGATIVE NEGATIVE [facility] HospitalU[facility] Anurzoj2758-42-82 22:59:00* Test Item Value Reference Range Interpretation Comments Urine Nitrite (test code = 80555-6) NEGATIVE NEGATIVE [facility] HospitalU[facility] Ngvyfaz5043-95-87 22:59:00* Test Item Value Reference Range Interpretation Comments Urine Protein (test code = 5804-0) NEGATIVE NEGATIVE [facility] HospitalUrine Glucose (UA)2018-05-28 22:59:00* Test Item Value Reference Range Interpretation Comments Urine Glucose (UA) (test code = 2349-9) NEGATIVE NEGATIVE [facility] HospitalU[facility] Zngsueg2301-22-13 22:59:00* Test Item Value Reference Range Interpretation Comments Urine Ketones (test code = 53448-6) NEGATIVE NEGATIVE [facility] HospitalU[facility] Auyvtdjdkazl4703-85-39 22:59:00* Test Item Value Reference Range Interpretation Comments Urine Urobilinogen (test code = 89415-7) 0.2 0.2-1 [facility] HospitalU[facility] Qmfmnohxl9952-82-11 22:59:00* Test Item Value Reference Range Interpretation Comments Urine Bilirubin (test code = 1978-6) NEGATIVE NEGATIVE [facility] HospitalUrine Pixty3442-06-84 22:59:00* Test Item Value Reference Range Interpretation Comments Urine Blood (test code = 98510-6) NEGATIVE NEGATIVE [facility] HospitalURINALYSIS W/ PKHGTNGJDJW0039-04-56 14:21:00* Test Item Value Reference Range Interpretation Comments COLOR (BEAKER) (test code = 470) Dietrich CLARITY (BEAKER) (test code = 469) Clear SPECIFIC GRAVITY UA (BEAKER) (test code = 468) 1.016 1.001-1 .035 PH UA (BEAKER) (test code = 467) 6.5 5.0-8.0 PROTEIN UA (BEAKER) (test code = 464) 50 mg/dL Negative A GLUCOSE UA (BEAKER) (test code = 365) Negative Negative KETONES UA (BEAKER) (test code = 371) Negative Negative BILIRUBIN UA (BEAKER) (test code = 462) Negative Negative BLOOD UA (BEAKER) (test code = 461) Large Negative A NITRITE UA (BEAKER) (test code = 465) Negative Negative LEUKOCYTE ESTERASE UA (BEAKER) (test code = 466) Trace Negat ivonne A UROBILINOGEN UA (BEAKER) (test code = 463) 0.2 mg/dL 0.2-1.0 RBC UA (BEAKER) (test code = 519) > /HPF WBC UA (BEAKER) (test code = 520) 1 /HPF MUCUS (BEAKER) (test code = 1574) Rare SQUAMOUS EPITHELIAL (BEAKER) (test code = 516) 1 /HPF SOURCE(BEAKER) (test code = 2795) CT, ABDOMEN - PELVIS, PANCREAS RAUMQHSZBW2381-50-34 15:44:00Reason for exam:-> known pancreatic adenocarcinoma, pancreatitis, [...] cm left ov doug hemorrhagic cyst. Signed: Rafat Paez MDReport Verified Date/Time: 018 15:44:46 Reading Location: [facility] B1 C013Y CT Body Reading Room Electronic ally signed by: RAFAT PAEZ MD on 05/27/2018 03:44 PM C. DIFFICILE [facility] [id number] 10:56:00* Test Item Value Reference Range Interpretation Comments CDT TOXIN (test code = 6085719488) Negative Negative CDT GDH ANTIGEN (test code = 9879605000) Positive Negative A C. difficile present but toxin not detected. [...] of kit performance was done by the [facility] Microbiology Lab prior to cl inical use.URINALYSIS WITH MICROSCOPIC IF [id number] 00:34:00* Test Item Value Reference Range Interpretation Comments COLOR (BEAKER) (test code = 470) Yellow CLARITY (BEAKER) (test code = 469) Hazy SPECIFIC GRAVITY UA (BEAKER) (test code = 468) 1.015 1.001-1 .035 PH UA (BEAKER) (test code = 467) 6.5 5.0-8.0 PROTEIN UA (BEAKER) (test code = 464) Negative Negative GLUCOSE UA (BEAKER) (test code = 365) Negative Negative KETONES UA (BEAKER) (test code = 371) Negative Negative BILIRUBIN UA (BEAKER) (test code = 462) Negative Negative BLOOD UA (BEAKER) (test code = 461) Negative Negative NITRITE UA (BEAKER) (test code = 465) Negative Negative LEUKOCYTE ESTERASE UA (BEAKER) (test code = 466) Negative Negat ivonne UROBILINOGEN UA (BEAKER) (test code = 463) 0.2 mg/dL 0.2-1.0 SOURCE(BEAKER) (test code = 2795) [id number] 08:33:00* Test Item Value Reference Range Interpretation Comments LIPASE (BEAKER) (test code = 749) 6 U/L 8-78 L BASIC METABOLIC [id number] 08:33:00* Test Item Value Reference Range Interpretation Comments SODIUM (BEAKER) (test code = 381) 139 meq/L 136-145 POTASSIUM (BEAKER) (test code = 379) 4.1 meq/L 3.5-5.1 CHLORIDE (BEAKER) (test code = 382) 108 meq/L 98-107 H CO2 (BEAKER) (test code = 355) 24 meq/L 22-29 BLOOD UREA NITROGEN (BEAKER) (test code = 354) 10 mg/dL 7-21 CREATININE (BEAKER) (test code = 358) 0.75 mg/dL 0.57-1.25 GLUCOSE RANDOM (BEAKER) (test code = 652) 108 mg/dL 70-105 H CALCIUM (BEAKER) (test code = 697) 10.0 mg/dL 8.4-10.2 EGFR (BEAKER) (test code = 1092) 86 mL/min/1.73 sq m ESTIMATED GFR IS NOT ACCURATE CREATININE CLEARANCE IN PREDICTING GLOMERULAR FILTRATION RATE. ESTIMATED GFR IS NOT APPLICABLE FOR DIALYSIS PATIENTS. HEPATIC FUNCTION [id number] 08:33:00* Test Item Value Reference Range Interpretation Comments TOTAL PROTEIN (BEAKER) (test code = 770) 8.1 gm/dL 6.0-8.3 ALBUMIN (BEAKER) (test code = 1145) 4.6 g/dL 3.5-5.0 BILIRUBIN TOTAL (BEAKER) (test code = 377) 0.4 mg/dL 0.2-1.2 BILIRUBIN DIRECT (BEAKER) (test code = 706) 0.2 mg/dL 0.1-0.5 ALKALINE PHOSPHATASE (BEAKER) (test code = 346) 89 U/L 40-150 AST (SGOT) (BEAKER) (test code = 353) 32 U/L 5-34 ALT (SGPT) (BEAKER) (test code = 347) 26 U/L 6-55 CBC W/PLT COUNT & AUTO [id number] 08:14:00* Test Item Value Reference Range Interpretation Comments WHITE BLOOD CELL COUNT (BEAKER) (test code = 775) 7.9 K/ L 3.5- 10.5 RED BLOOD CELL COUNT (BEAKER) (test code = 761) 4.27 M/ L 3.93-5 .22 HEMOGLOBIN (BEAKER) (test code = 410) 11.6 GM/DL 11.2-15.7 HEMATOCRIT (BEAKER) (test code = 411) 36.0 % 34.1-44.9 MEAN CORPUSCULAR VOLUME (BEAKER) (test code = 753) 84.3 fL 79. 4-94.8 MEAN CORPUSCULAR HEMOGLOBIN (BEAKER) (test code = 751) 27.2 pg 25.6-32.2 MEAN CORPUSCULAR HEMOGLOBIN CONC (BEAKER) (test code = 752) 32.2 GM/DL 32.2-35.5 RED CELL DISTRIBUTION WIDTH (BEAKER) (test code = 412) 17.0 % 11.7-14.4 H PLATELET COUNT (BEAKER) (test code = 756) 278 K/CU MM 150-450 MEAN PLATELET VOLUME (BEAKER) (test code = 754) 9.3 fL 9.4-12 .3 L NUCLEATED RED BLOOD CELLS (BEAKER) (test code = 413) 0 /100 WBC 0 -0 NEUTROPHILS RELATIVE PERCENT (BEAKER) (test code = 429) 60 % LYMPHOCYTES RELATIVE PERCENT (BEAKER) (test code = 430) 27 % MONOCYTES RELATIVE PERCENT (BEAKER) (test code = 431) 9 % EOSINOPHILS RELATIVE PERCENT (BEAKER) (test code = 432) 4 % BASOPHILS RELATIVE PERCENT (BEAKER) (test code = 437) 0 % NEUTROPHILS ABSOLUTE COUNT (BEAKER) (test code = 670) 4.73 K/ L 1.56-6.13 LYMPHOCYTES ABSOLUTE COUNT (BEAKER) (test code = 414) 2.10 K/ L 1.18-3.74 MONOCYTES ABSOLUTE COUNT (BEAKER) (test code = 415) 0.72 K/ L 0. 24-0.36 H EOSINOPHILS ABSOLUTE COUNT (BEAKER) (test code = 416) 0.31 K/ L 0.04-0.36 BASOPHILS ABSOLUTE COUNT (BEAKER) (test code = 417) 0.03 K/ L 0. 01-0.08 IMMATURE GRANULOCYTES-RELATIVE PERCENT (BEAKER) (test code = 2801) 0 % 0-1 Blood [id number] 19:15:00* Test Item Value Reference Range Interpretation Comments Blood Culture (test code = 11708573) NO GROWTH AFTER 5 DAYS, FINAL REPORT [facility] [id number] 19:15:00* Test Item Value Reference Range Interpretation Comments Blood Culture (test code = 37942451) NO GROWTH AFTER 5 DAYS, FINAL REPORT [facility] [id number] 19:15:00* Test Item Value Reference Range Interpretation Comments Blood Culture (test code = 82038571) NO GROWTH AFTER 5 DAYS, FINAL REPORT [facility]2018-11-10 19:15:00* Test Item Value Reference Range Interpretation Comments Blood Culture (test code = 55024052) NO GROWTH AFTER 5 DAYS, FINAL REPORT [facility]2018-11-10 19:15:00* Test Item Value Reference Range Interpretation Comments Blood Culture (test code = 06161052) NO GROWTH AFTER 5 DAYS, FINAL REPORT [facility]2018-11-10 19:15:00* Test Item Value Reference Range Interpretation Comments Blood Culture (test code = 35850235) NO GROWTH AFTER 5 DAYS, FINAL REPORT [facility]2018-11-10 19:15:00* Test Item Value Reference Range Interpretation Comments Blood Culture (test code = 94180540) NO GROWTH AFTER 5 DAYS, FINAL REPORT [facility]2018-11-08 15:40:00* Test Item Value Reference Range Interpretation Comments Blood Culture (test code = 600-7) Organism: STAPHYLOCOCCUS SP COAG NEG [facility]2018-11-08 15:40:00* Test Item Value Reference Range Interpretation Comments Blood Culture (test code = 600-7) Organism: STAPHYLOCOCCUS SP COAG NEG [facility]2018-11-08 15:40:00* Test Item Value Reference Range Interpretation Comments Blood Culture (test code = 600-7) Organism: STAPHYLOCOCCUS SP COAG NEG [facility]2018-11-08 15:40:00* Test Item Value Reference Range Interpretation Comments Blood Culture (test code = 600-7) Organism: STAPHYLOCOCCUS SP COAG NEG [facility]2018-11-08 15:40:00* Test Item Value Reference Range Interpretation Comments Blood Culture (test code = 600-7) Organism: STAPHYLOCOCCUS SP COAG NEG [facility]2018-11-08 15:40:00* Test Item Value Reference Range Interpretation Comments Blood Culture (test code = 600-7) Organism: STAPHYLOCOCCUS SP [facility]G [facility] Pagnusu2676[facility] 15:40:00* Test Item Value Reference Range Interpretation Comments Blood Culture (test code = 600-7) Organism: STAPHYLOCOCCUS SP COAG NEG [facility] Oxlczto0890-83-10 07:57:00* Test Item Value Reference Range Interpretation Comments Urine Culture (test code = 630-4) Organism: ESCHERICHIA COLI [facility] Rrvgdms5804-89-22 07:57:00* Test Item Value Reference Range Interpretation Comments Urine Culture (test code = 630-4) Organism: ESCHERICHIA COLI [facility]2018-11-07 07:57:00* Test Item Value Reference Range Interpretation Comments Urine Culture (test code = 630-4) Organism: ESCHERICHIA COLI [facility] [id number] 07:57:00* Test Item Value Reference Range Interpretation Comments Urine Culture (test code = 630-4) Organism: ESCHERICHIA COLI [facility]2018-11-07 07:57:00* Test Item Value Reference Range Interpretation Comments Urine Culture (test code = 630-4) Organism: ESCHERICHIA COLI [facility] Jfykwhk4677-00-50 07:57:00* Test Item Value Reference Range Interpretation Comments Urine Culture (test code = 630-4) Organism: ESCHERICHIA COLI [facility]2018-11-07 07:57:00* Test Item Value Reference Range Interpretation Comments Urine Culture (test code = 630-4) Organism: ESCHERICHIA COLI [facility] [id number] 20:33:00 [facility] [address] [place] [address] Patient Name: BELIA VIGIL MR #: [id number] : [birth year] Age/Sex: 37/F Req #: [id number] Adm Physician: CHELSIE GABRIEL MD Ordered by: SANJUANA NIEVES [employer] Report #: [id number] Location: MED/SURG2 Room/Bed: 202-1 Procedure: [id number]/CT ABDOMEN/PELVIS WO Exam [...] chieving a diagnostic-quality image. Signed by: Dr. Andrae Magallanes M.D. on 05/21/2018 1:27 PM ORIGINAL REPORT EXAM: CT Abdomen an d Pelvis WITHOUT contrast INDICATION: Abdominal pain. Pancreatic cancer. C OMPARISON: 01/12/2018 TECHNIQUE: Abdomen and pelvis were scanned utilizing [facility] tid[facility] helical [facility] from the lung base [...] and left renal stones. Signed by: Dr. Andrae Magallanes M.D. on 05/14 8:39 PM Dictated By: ANDRAE MAGALLANES MD, MD 1327 Transcribed By: WAYNE on 05/14/182038 COPY TO: SANJUANA NIEVES NP Prothrombin [id number] 19:27:00 * Test Item Value Reference Range Interpretation Comments Prothrombin Time (test code = 5902-2) 13.6 11.9-14.5 [facility] International Ratio 2018-05-14 19:27:00* Test Item Value Reference Range Interpretation Comments Prothromb Time International Ratio (test code = 6301-6) 0.95 Oral Anticoagulant Therapy INR Values:1. Low Intensity Therapy 1.5 - 2.02 . Moderate Intensity Therapy 2.0 - 3.03. High Intensity Therapy(1) 2.5 - 3. 54. High Intensity Therapy(2) 3.0 - 4.05. Panic Value INR > 5.0 [facility] Partial Thromboplast Time 2018-05-14 19:27:00* Test Item Value Reference Range Interpretation Comments Activated Partial Thromboplast Time (test code = 49581-6) 30.6 23.8-35.5 [facility] [id number] 19:27:00* Test Item Value Reference Range Interpretation Comments Prothrombin Time (test code = 5902-2) 13.6 11.9-14.5 [facility] International Ratio 2018-05-14 19:27:00* Test Item Value Reference Range Interpretation Comments Prothromb Time International Ratio (test code = 6301-6) 0.95 Oral Anticoagulant Therapy INR Values:1. Low Intensity Therapy 1.5 - 2.02 . Moderate Intensity Therapy 2.0 - 3.03. High Intensity Therapy(1) 2.5 - 3. 54. High Intensity Therapy(2) 3.0 - 4.05. Panic Value INR > 5.0 [facility] Thromboplast Time 2018-05-14 19:27:00* Test Item Value Reference Range Interpretation Comments Activated Partial Thromboplast Time (test code = 53433-0) 30.6 23.8-35.5 [facility] [id number] 19:27:00* Test Item Value Reference Range Interpretation Comments Prothrombin Time (test code = 5902-2) 13.6 11.9-14.5 [facility] International Ratio 2018-05-14 19:27:00* Test Item Value Reference Range Interpretation Comments Prothromb Time International Ratio (test code = 6301-6) 0.95 Oral Anticoagulant Therapy INR Values:1. Low Intensity Therapy 1.5 - 2.02 . Moderate Intensity Therapy 2.0 - 3.03. High Intensity Therapy(1) 2.5 - 3. 54. High Intensity Therapy(2) 3.0 - 4.05. Panic Value INR > 5.0 [facility] Thromboplast Time 2018-05-14 19:27:00* Test Item Value Reference Range Interpretation Comments Activated Partial Thromboplast Time (test code = 53258-4) 30.6 23.8-35.5 [facility] [id number] 19:27:00* Test Item Value Reference Range Interpretation Comments Prothrombin Time (test code = 5902-2) 13.6 11.9-14.5 [facility] International Ratio 2018-05-14 19:27:00* Test Item Value Reference Range Interpretation Comments Prothromb Time International Ratio (test code = 6301-6) 0.95 Oral Anticoagulant Therapy INR Values:1. Low Intensity Therapy 1.5 - 2.02 . Moderate Intensity Therapy 2.0 - 3.03. High Intensity Therapy(1) 2.5 - 3. 54. High Intensity Therapy(2) 3.0 - 4.05. Panic Value INR > 5.0 [facility] Thromboplast Time 2018-05-14 19:27:00* Test Item Value Reference Range Interpretation Comments Activated Partial Thromboplast Time (test code = 85509-3) 30.6 23.8-35.5 [facility] & AUTO DIFFERENTIAL 2018-05-04 07:21:00* Test Item Value Reference Range Interpretation Comments WHITE BLOOD CELL COUNT (BEAKER) (test code = 775) 5.0 K/ L 3.5- 10.5 RED BLOOD CELL COUNT (BEAKER) (test code = 761) 3.70 M/ L 3.93-5 .22 L HEMOGLOBIN (BEAKER) (test code = 410) 10.1 GM/DL 11.2-15.7 L HEMATOCRIT (BEAKER) (test code = 411) 32.9 % 34.1-44.9 L MEAN CORPUSCULAR VOLUME (BEAKER) (test code = 753) 88.9 fL 79. 4-94.8 MEAN CORPUSCULAR HEMOGLOBIN (BEAKER) (test code = 751) 27.3 pg 25.6-32.2 MEAN CORPUSCULAR HEMOGLOBIN CONC (BEAKER) (test code = 752) 30.7 GM/DL 32.2-35.5 L RED CELL DISTRIBUTION WIDTH (BEAKER) (test code = 412) 18.3 % 11.7-14.4 H PLATELET COUNT (BEAKER) (test code = 756) 221 K/CU MM 150-450 MEAN PLATELET VOLUME (BEAKER) (test code = 754) 10.5 fL 9.4-12 .3 NUCLEATED RED BLOOD CELLS (BEAKER) (test code = 413) 0 /100 WBC 0 -0 NEUTROPHILS RELATIVE PERCENT (BEAKER) (test code = 429) 34 % LYMPHOCYTES RELATIVE PERCENT (BEAKER) (test code = 430) 42 % MONOCYTES RELATIVE PERCENT (BEAKER) (test code = 431) 19 % EOSINOPHILS RELATIVE PERCENT (BEAKER) (test code = 432) 2 % BASOPHILS RELATIVE PERCENT (BEAKER) (test code = 437) 1 % NEUTROPHILS ABSOLUTE COUNT (BEAKER) (test code = 670) 1.68 K/ L 1.56-6.13 LYMPHOCYTES ABSOLUTE COUNT (BEAKER) (test code = 414) 2.08 K/ L 1.18-3.74 MONOCYTES ABSOLUTE COUNT (BEAKER) (test code = 415) 0.94 K/ L 0. 24-0.36 H EOSINOPHILS ABSOLUTE COUNT (BEAKER) (test code = 416) 0.12 K/ L 0.04-0.36 BASOPHILS ABSOLUTE COUNT (BEAKER) (test code = 417) 0.03 K/ L 0. 01-0.08 IMMATURE GRANULOCYTES-RELATIVE PERCENT (BEAKER) (test code = 2801) 2 % 0-1 H [id number] 06:51:00* Test Item Value Reference Range Interpretation Comments MAGNESIUM (BEAKER) (test code = 627) 2.3 mg/dL 1.6-2.6 Specimen slightly hemolyzed [id number] 06:51:00* Test Item Value Reference Range Interpretation Comments PHOSPHORUS (BEAKER) (test code = 604) 4.7 mg/dL 2.3-4.7 Specimen slightly hemolyzed BASIC METABOLIC [id number] 06:51:00* Test Item Value Reference Range Interpretation Comments SODIUM (BEAKER) (test code = 381) 135 meq/L 136-145 L POTASSIUM (BEAKER) (test code = 379) 4.2 meq/L 3.5-5.1 Specimen slightly hemolyzed CHLORIDE (BEAKER) (test code = 382) 102 meq/L 98-107 CO2 (BEAKER) (test code = 355) 25 meq/L 22-29 BLOOD UREA NITROGEN (BEAKER) (test code = 354) 9 mg/dL 7-21 CREATININE (BEAKER) (test code = 358) 0.67 mg/dL 0.57-1.25 Specimen slightly hemolyzed GLUCOSE RANDOM (BEAKER) (test code = 652) 114 mg/dL 70-105 H CALCIUM (BEAKER) (test code = 697) 9.1 mg/dL 8.4-10.2 EGFR (BEAKER) (test code = 1092) 99 mL/min/1.73 sq m ESTIMATED GFR IS NOT ACCURATE CREATININE CLEARANCE IN PREDICTING GLOMERULAR FILTRATION RATE. ESTIMATED GFR IS NOT APPLICABLE FOR DIALYSIS PATIENTS. CBC W/PLT COUNT & AUTO [id number] 06:10:00* Test Item Value Reference Range Interpretation Comments WHITE BLOOD CELL COUNT (BEAKER) (test code = 775) 5.1 K/ L 3.5- 10.5 RED BLOOD CELL COUNT (BEAKER) (test code = 761) 3.34 M/ L 3.93-5 .22 L HEMOGLOBIN (BEAKER) (test code = 410) 9.4 GM/DL 11.2-15.7 L HEMATOCRIT (BEAKER) (test code = 411) 30.0 % 34.1-44.9 L MEAN CORPUSCULAR VOLUME (BEAKER) (test code = 753) 89.8 fL 79. 4-94.8 MEAN CORPUSCULAR HEMOGLOBIN (BEAKER) (test code = 751) 28.1 pg 25.6-32.2 MEAN CORPUSCULAR HEMOGLOBIN CONC (BEAKER) (test code = 752) 31.3 GM/DL 32.2-35.5 L RED CELL DISTRIBUTION WIDTH (BEAKER) (test code = 412) 18.5 % 11.7-14.4 H PLATELET COUNT (BEAKER) (test code = 756) 217 K/CU MM 150-450 MEAN PLATELET VOLUME (BEAKER) (test code = 754) 10.5 fL 9.4-12 .3 NUCLEATED RED BLOOD CELLS (BEAKER) (test code = 413) 1 /100 WBC 0 -0 H NEUTROPHILS RELATIVE PERCENT (BEAKER) (test code = 429) 44 % LYMPHOCYTES RELATIVE PERCENT (BEAKER) (test code = 430) 36 % MONOCYTES RELATIVE PERCENT (BEAKER) (test code = 431) 16 % EOSINOPHILS RELATIVE PERCENT (BEAKER) (test code = 432) 1 % BASOPHILS RELATIVE PERCENT (BEAKER) (test code = 437) 0 % NEUTROPHILS ABSOLUTE COUNT (BEAKER) (test code = 670) 2.27 K/ L 1.56-6.13 LYMPHOCYTES ABSOLUTE COUNT (BEAKER) (test code = 414) 1.85 K/ L 1.18-3.74 MONOCYTES ABSOLUTE COUNT (BEAKER) (test code = 415) 0.82 K/ L 0. 24-0.36 H EOSINOPHILS ABSOLUTE COUNT (BEAKER) (test code = 416) 0.07 K/ L 0.04-0.36 BASOPHILS ABSOLUTE COUNT (BEAKER) (test code = 417) 0.02 K/ L 0. 01-0.08 IMMATURE GRANULOCYTES-RELATIVE PERCENT (BEAKER) (test code = 2801) 2 % 0-1 H CBC W/PLT COUNT & AUTO [id number] 16:43:00* Test Item Value Reference Range Interpretation Comments WHITE BLOOD CELL COUNT (BEAKER) (test code = 775) 6.1 K/ L 3.5- 10.5 RED BLOOD CELL COUNT (BEAKER) (test code = 761) 3.45 M/ L 3.93-5 .22 L HEMOGLOBIN (BEAKER) (test code = 410) 9.5 GM/DL 11.2-15.7 L HEMATOCRIT (BEAKER) (test code = 411) 30.1 % 34.1-44.9 L MEAN CORPUSCULAR VOLUME (BEAKER) (test code = 753) 87.2 fL 79. 4-94.8 MEAN CORPUSCULAR HEMOGLOBIN (BEAKER) (test code = 751) 27.5 pg 25.6-32.2 MEAN CORPUSCULAR HEMOGLOBIN CONC (BEAKER) (test code = 752) 31.6 GM/DL 32.2-35.5 L RED CELL DISTRIBUTION WIDTH (BEAKER) (test code = 412) 18.6 % 11.7-14.4 H PLATELET COUNT (BEAKER) (test code = 756) 233 K/CU MM 150-450 MEAN PLATELET VOLUME (BEAKER) (test code = 754) 9.7 fL 9.4-12 .3 NUCLEATED RED BLOOD CELLS (BEAKER) (test code = 413) 1 /100 WBC 0 -0 H NEUTROPHILS RELATIVE PERCENT (BEAKER) (test code = 429) 60 % LYMPHOCYTES RELATIVE PERCENT (BEAKER) (test code = 430) 21 % MONOCYTES RELATIVE PERCENT (BEAKER) (test code = 431) 17 % EOSINOPHILS RELATIVE PERCENT (BEAKER) (test code = 432) 0 % BASOPHILS RELATIVE PERCENT (BEAKER) (test code = 437) 0 % NEUTROPHILS ABSOLUTE COUNT (BEAKER) (test code = 670) 3.66 K/ L 1.56-6.13 LYMPHOCYTES ABSOLUTE COUNT (BEAKER) (test code = 414) 1.29 K/ L 1.18-3.74 MONOCYTES ABSOLUTE COUNT (BEAKER) (test code = 415) 1.04 K/ L 0. 24-0.36 H EOSINOPHILS ABSOLUTE COUNT (BEAKER) (test code = 416) 0.01 K/ L 0.04-0.36 L BASOPHILS ABSOLUTE COUNT (BEAKER) (test code = 417) 0.02 K/ L 0. 01-0.08 IMMATURE GRANULOCYTES-RELATIVE PERCENT (BEAKER) (test code = 2801) 1 % 0-1 URINALYSIS W/ REFLEX URINE [id number] 04:00:00* Test Item Value Reference Range Interpretation Comments COLOR (BEAKER) (test code = 470) Yellow CLARITY (BEAKER) (test code = 469) Clear SPECIFIC GRAVITY UA (BEAKER) (test code = 468) 1.031 1.001-1 .035 PH UA (BEAKER) (test code = 467) 8.5 5.0-8.0 H PROTEIN UA (BEAKER) (test code = 464) Negative Negative GLUCOSE UA (BEAKER) (test code = 365) 30 mg/dL Negative A KETONES UA (BEAKER) (test code = 371) Negative Negative BILIRUBIN UA (BEAKER) (test code = 462) Negative Negative BLOOD UA (BEAKER) (test code = 461) Negative Negative NITRITE UA (BEAKER) (test code = 465) Negative Negative LEUKOCYTE ESTERASE UA (BEAKER) (test code = 466) Negative Negat ivonne UROBILINOGEN UA (BEAKER) (test code = 463) 0.2 mg/dL 0.2-1.0 RBC UA (BEAKER) (test code = 519) < /HPF WBC UA (BEAKER) (test code = 520) 3 /HPF BACTERIA (BEAKER) (test code = 517) Rare SQUAMOUS EPITHELIAL (BEAKER) (test code = 516) 1 /HPF SOURCE(BEAKER) (test code = 2795) CT, ABDOMEN, WITH [id number] 01:29:00Rule out pancreatitisReason for exam:->pancreatitiFINAL REPORT CLINICAL [...] Verified Date/Time: 05/02/2018 01:29:49 Re ading Location: [address] Reading Room W/PLT COUNT & AUTO [id number] 13:29:00* Test Item Value Reference Range Interpretation Comments WHITE BLOOD CELL COUNT (BEAKER) (test code = 775) 3.2 K/ L 3.5- 10.5 L RED BLOOD CELL COUNT (BEAKER) (test code = 761) 3.50 M/ L 3.93-5 .22 L HEMOGLOBIN (BEAKER) (test code = 410) 9.9 GM/DL 11.2-15.7 L HEMATOCRIT (BEAKER) (test code = 411) 31.5 % 34.1-44.9 L MEAN CORPUSCULAR VOLUME (BEAKER) (test code = 753) 90.0 fL 79. 4-94.8 MEAN CORPUSCULAR HEMOGLOBIN (BEAKER) (test code = 751) 28.3 pg 25.6-32.2 MEAN CORPUSCULAR HEMOGLOBIN CONC (BEAKER) (test code = 752) 31.4 GM/DL 32.2-35.5 L RED CELL DISTRIBUTION WIDTH (BEAKER) (test code = 412) 18.4 % 11.7-14.4 H PLATELET COUNT (BEAKER) (test code = 756) 250 K/CU MM 150-450 MEAN PLATELET VOLUME (BEAKER) (test code = 754) 9.8 fL 9.4-12 .3 NUCLEATED RED BLOOD CELLS (BEAKER) (test code = 413) 1 /100 WBC 0 -0 H (CELLAVISION MANUAL DIFF)2018-05-01 13:29:00* Test Item Value Reference Range Interpretation Comments NEUTROPHILS - REL (CELLAVISION)(BEAKER) (test code = 2816) 25 % LYMPHOCYTES - REL (CELLAVISION)(BEAKER) (test code = 2817) 61 % MONOCYTES - REL (CELLAVISION)(BEAKER) (test code = 2818) 7 % EOSINOPHILS - REL (CELLAVISION)(BEAKER) (test code = 2819) 6 % METAMYELOCYTES - REL (CELLAVISION)(BEAKER) (test code = 2821) 1 % 0-0 H NEUTROPHILS - ABS (CELLAVISION)(BEAKER) (test code = 2830) 0.80 K/ul 1.56-6.13 L LYMPHOCYTES - ABS (CELLAVISION)(BEAKER) (test code = 2831) 1.95 K/ul 1.18-3.74 MONOCYTES - ABS (CELLAVISION)(BEAKER) (test code = 2832) 0.22 K/uL 0.24-0.36 L EOSINOPHILS - ABS (CELLAVISION)(BEAKER) (test code = 2834) 0.19 K/uL 0.04-0.36 METAMYELOCYTES - ABS (CELLAVISION)(BEAKER) (test code = 2836 ) 0.03 K/uL 0.00-0.00 H TOTAL COUNTED (BEAKER) (test code = 1351) 100 WBC MORPHOLOGY (BEAKER) (test code = 487) Normal PLT MORPHOLOGY (BEAKER) (test code = 486) Normal POLYCHROMATOPHILLIC RBCS(BEAKER) (test code = 478) 2+ moderate ANISOCYTOSIS (BEAKER) (test code = 961) 2+ moderate POIKILOCYTES (BEAKER) (test code = 966) 2+ moderate TARGET CELLS (BEAKER) (test code = 480) 2+ moderate ARTIFACT (CELLAVISION)(BEAKER) (test code = 3432) Present PLATELET CONCENTRATION (CELLAVISION)(BEAKER) (test code = 3438) Theresa quate Received comment: User comments: Slide comments: [id number] 20:28:00* Test Item Value Reference Range Interpretation Comments LIPASE (BEAKER) (test code = 749) 8 U/L 8-78 [id number] 20:28:00* Test Item Value Reference Range Interpretation Comments AMYLASE (BEAKER) (test code = 349) 42 U/L 25-125 Specimen slightly hemolyzed BLOOD [id number] 18:00:00* Test Item Value Reference Range Interpretation Comments CULTURE (BEAKER) (test code = 1095) No growth in 5 days BLOOD [id number] 12:00:00* Test Item Value Reference Range Interpretation Comments CULTURE (BEAKER) (test code = 1095) No growth in 5 days CBC W/PLT COUNT & AUTO [id number] 10:55:00* Test Item Value Reference Range Interpretation Comments WHITE BLOOD CELL COUNT (BEAKER) (test code = 775) 3.0 K/ L 3.5- 10.5 L RED BLOOD CELL COUNT (BEAKER) (test code = 761) 3.33 M/ L 3.93-5 .22 L HEMOGLOBIN (BEAKER) (test code = 410) 9.1 GM/DL 11.2-15.7 L HEMATOCRIT (BEAKER) (test code = 411) 29.3 % 34.1-44.9 L MEAN CORPUSCULAR VOLUME (BEAKER) (test code = 753) 88.0 fL 79. 4-94.8 MEAN CORPUSCULAR HEMOGLOBIN (BEAKER) (test code = 751) 27.3 pg 25.6-32.2 MEAN CORPUSCULAR HEMOGLOBIN CONC (BEAKER) (test code = 752) 31.1 GM/DL 32.2-35.5 L RED CELL DISTRIBUTION WIDTH (BEAKER) (test code = 412) 18.2 % 11.7-14.4 H PLATELET COUNT (BEAKER) (test code = 756) 228 K/CU MM 150-450 MEAN PLATELET VOLUME (BEAKER) (test code = 754) 9.4 fL 9.4-12 .3 NUCLEATED RED BLOOD CELLS (BEAKER) (test code = 413) 1 /100 WBC 0 -0 H (CELLAVISION MANUAL DIFF)2018-04-30 10:55:00* Test Item Value Reference Range Interpretation Comments NEUTROPHILS - REL (CELLAVISION)(BEAKER) (test code = 2816) 14 % LYMPHOCYTES - REL (CELLAVISION)(BEAKER) (test code = 2817) 64 % MONOCYTES - REL (CELLAVISION)(BEAKER) (test code = 2818) 10 % EOSINOPHILS - REL (CELLAVISION)(BEAKER) (test code = 2819) 3 % METAMYELOCYTES - REL (CELLAVISION)(BEAKER) (test code = 2821) 1 % 0-0 H BANDS - REL (CELLAVISION)(BEAKER) (test code = 2826) 9 % 0 -10 NEUTROPHILS - ABS (CELLAVISION)(BEAKER) (test code = 2830) 0.42 K/ul 1.56-6.13 L LYMPHOCYTES - ABS (CELLAVISION)(BEAKER) (test code = 2831) 1.92 K/ul 1.18-3.74 MONOCYTES - ABS (CELLAVISION)(BEAKER) (test code = 2832) 0.30 K/uL 0.24-0.36 EOSINOPHILS - ABS (CELLAVISION)(BEAKER) (test code = 2834) 0.09 K/uL 0.04-0.36 METAMYELOCYTES - ABS (CELLAVISION)(BEAKER) (test code = 2836 ) 0.03 K/uL 0.00-0.00 H BANDS - ABS (CELLAVISION)(BEAKER) (test code = 2840) 0.27 K/uL 0 .00-0.80 TOTAL COUNTED (BEAKER) (test code = 1351) 100 MANUAL NRBC PER 100 CELLS (BEAKER) (test code = 1353) 3 /100 WBC 0-0 H SMUDGE CELLS (BEAKER) (test code = 1371) Present GIANT PLATELETS (BEAKER) (test code = 313) Present POLYCHROMATOPHILLIC RBCS(BEAKER) (test code = 478) 1+ few ANISOCYTOSIS (BEAKER) (test code = 961) 1+ few MICROCYTES (BEAKER) (test code = 965) 1+ few POIKILOCYTES (BEAKER) (test code = 966) 2+ moderate SCHISTOCYTES (BEAKER) (test code = 765) 1+ few TEAR DROP CELLS (BEAKER) (test code = 481) 2+ moderate ARTIFACT (CELLAVISION)(BEAKER) (test code = 3432) Present PLATELET CONCENTRATION (CELLAVISION)(BEAKER) (test code = 3438) Theresa quate Received comment: User comments: Slide comments: COMPREHENSIVE METABOLIC PANEL 2018-04-30 06:06:00* Test Item Value Reference Range Interpretation Comments TOTAL PROTEIN (BEAKER) (test code = 770) 6.9 gm/dL 6.0-8.3 Specimen slightly hemolyzed ALBUMIN (BEAKER) (test code = 1145) 3.7 g/dL 3.5-5.0 Specimen slightly hemolyzed ALKALINE PHOSPHATASE (BEAKER) (test code = 346) 145 U/L 40-150 BILIRUBIN TOTAL (BEAKER) (test code = 377) 0.3 mg/dL 0.2-1.2 Specimen slightly hemolyzed SODIUM (BEAKER) (test code = 381) 140 meq/L 136-145 POTASSIUM (BEAKER) (test code = 379) 4.3 meq/L 3.5-5.1 Specimen slightly hemolyzed CHLORIDE (BEAKER) (test code = 382) 106 meq/L 98-107 CO2 (BEAKER) (test code = 355) 25 meq/L 22-29 BLOOD UREA NITROGEN (BEAKER) (test code = 354) 11 mg/dL 7-21 CREATININE (BEAKER) (test code = 358) 0.71 mg/dL 0.57-1.25 Specimen slightly hemolyzed GLUCOSE RANDOM (BEAKER) (test code = 652) 121 mg/dL 70-105 H CALCIUM (BEAKER) (test code = 697) 9.6 mg/dL 8.4-10.2 AST (SGOT) (BEAKER) (test code = 353) 60 U/L 5-34 H Specimen slightly hemolyzed ALT (SGPT) (BEAKER) (test code = 347) 57 U/L 6-55 H Specimen slightly hemolyzed EGFR (BEAKER) (test code = 1092) 92 mL/min/1.73 sq m ESTIMATED GFR IS NOT ACCURATE CREATININE CLEARANCE IN PREDICTING GLOMERULAR FILTRATION RATE. ESTIMATED GFR IS NOT APPLICABLE FOR DIALYSIS PATIENTS. Specimen slightly lipemicHEPATIC FUNCTION [id number] 06:06:00* Test Item Value Reference Range Interpretation Comments TOTAL PROTEIN (BEAKER) (test code = 770) 6.9 gm/dL 6.0-8.3 Specimen slightly hemolyzed ALBUMIN (BEAKER) (test code = 1145) 3.7 g/dL 3.5-5.0 Specimen slightly hemolyzed BILIRUBIN TOTAL (BEAKER) (test code = 377) 0.3 mg/dL 0.2-1.2 Specimen slightly hemolyzed BILIRUBIN DIRECT (BEAKER) (test code = 706) 0.1 mg/dL 0.1-0.5 Specimen slightly hemolyzed ALKALINE PHOSPHATASE (BEAKER) (test code = 346) 145 U/L 40-150 AST (SGOT) (BEAKER) (test code = 353) 60 U/L 5-34 H Specimen slightly hemolyzed ALT (SGPT) (BEAKER) (test code = 347) 57 U/L 6-55 H Specimen slightly hemolyzed Specimen slightly lipemicCBC W/PLT COUNT & AUTO [id number] 16:39:00 * Test Item Value Reference Range Interpretation Comments WHITE BLOOD CELL COUNT (BEAKER) (test code = 775) 2.4 K/ L 3.5- 10.5 L RED BLOOD CELL COUNT (BEAKER) (test code = 761) 3.29 M/ L 3.93-5 .22 L HEMOGLOBIN (BEAKER) (test code = 410) 9.3 GM/DL 11.2-15.7 L HEMATOCRIT (BEAKER) (test code = 411) 29.0 % 34.1-44.9 L MEAN CORPUSCULAR VOLUME (BEAKER) (test code = 753) 88.1 fL 79. 4-94.8 MEAN CORPUSCULAR HEMOGLOBIN (BEAKER) (test code = 751) 28.3 pg 25.6-32.2 MEAN CORPUSCULAR HEMOGLOBIN CONC (BEAKER) (test code = 752) 32.1 GM/DL 32.2-35.5 L RED CELL DISTRIBUTION WIDTH (BEAKER) (test code = 412) 18.4 % 11.7-14.4 H PLATELET COUNT (BEAKER) (test code = 756) 211 K/CU MM 150-450 MEAN PLATELET VOLUME (BEAKER) (test code = 754) 9.7 fL 9.4-12 .3 NUCLEATED RED BLOOD CELLS (BEAKER) (test code = 413) 0 /100 WBC 0 -0 (CELLAVISION MANUAL DIFF)[id number] 16:39:00* Test Item Value Reference Range Interpretation Comments NEUTROPHILS - REL (CELLAVISION)(BEAKER) (test code = 2816) 13 % LYMPHOCYTES - REL (CELLAVISION)(BEAKER) (test code = 2817) 61 % MONOCYTES - REL (CELLAVISION)(BEAKER) (test code = 2818) 11 % EOSINOPHILS - REL (CELLAVISION)(BEAKER) (test code = 2819) 7 % BASOPHILS - REL (CELLAVISION)(BEAKER) (test code = 2820) 2 % BANDS - REL (CELLAVISION)(BEAKER) (test code = 2826) 5 % 0 -10 NEUTROPHILS - ABS (CELLAVISION)(BEAKER) (test code = 2830) 0.31 K/ul 1.56-6.13 L LYMPHOCYTES - ABS (CELLAVISION)(BEAKER) (test code = 2831) 1.46 K/ul 1.18-3.74 MONOCYTES - ABS (CELLAVISION)(BEAKER) (test code = 2832) 0.26 K/uL 0.24-0.36 EOSINOPHILS - ABS (CELLAVISION)(BEAKER) (test code = 2834) 0.17 K/uL 0.04-0.36 BASOPHILS - ABS (CELLAVISION)(BEAKER) (test code = 2835) 0.05 K/uL 0.01-0.08 BANDS - ABS (CELLAVISION)(BEAKER) (test code = 2840) 0.12 K/uL 0 .00-0.80 TOTAL COUNTED (BEAKER) (test code = 1351) 100 MANUAL NRBC PER 100 CELLS (BEAKER) (test code = 1353) 1 /100 WBC 0-0 H WBC MORPHOLOGY (BEAKER) (test code = 487) Normal GIANT PLATELETS (BEAKER) (test code = 313) Present ANISOCYTOSIS (BEAKER) (test code = 961) 1+ few MICROCYTES (BEAKER) (test code = 965) 1+ few POIKILOCYTES (BEAKER) (test code = 966) 2+ moderate ELLIPTOCYTES (BEAKER) (test code = 962) 1+ few OVALOCYTES (BEAKER) (test code = 477) 1+ few TEAR DROP CELLS (BEAKER) (test code = 481) 2+ moderate ARTIFACT (CELLAVISION)(BEAKER) (test code = 3432) Present HELMET CELLS (CELLAVISION)(BEAKER) (test code = 3434) 1+ few PLATELET CONCENTRATION (CELLAVISION)(BEAKER) (test code = 3438) Theresa quate Received comment: User comments: Slide comments: HEPATIC FUNCTION PANEL 2018-04-29 06:48:00* Test Item Value Reference Range Interpretation Comments TOTAL PROTEIN (BEAKER) (test code = 770) 6.9 gm/dL 6.0-8.3 ALBUMIN (BEAKER) (test code = 1145) 3.7 g/dL 3.5-5.0 BILIRUBIN TOTAL (BEAKER) (test code = 377) 0.3 mg/dL 0.2-1.2 BILIRUBIN DIRECT (BEAKER) (test code = 706) < mg/dL 0.1-0.5 L ALKALINE PHOSPHATASE (BEAKER) (test code = 346) 143 U/L 40-150 AST (SGOT) (BEAKER) (test code = 353) 38 U/L 5-34 H ALT (SGPT) (BEAKER) (test code = 347) 53 U/L 6-55 Specimen moderately lipemicCOMPREHENSIVE METABOLIC [id number] 06:41:00* Test Item Value Reference Range Interpretation Comments TOTAL PROTEIN (BEAKER) (test code = 770) 6.9 gm/dL 6.0-8.3 ALBUMIN (BEAKER) (test code = 1145) 3.7 g/dL 3.5-5.0 ALKALINE PHOSPHATASE (BEAKER) (test code = 346) 143 U/L 40-150 BILIRUBIN TOTAL (BEAKER) (test code = 377) 0.3 mg/dL 0.2-1.2 SODIUM (BEAKER) (test code = 381) 140 meq/L 136-145 POTASSIUM (BEAKER) (test code = 379) 4.0 meq/L 3.5-5.1 CHLORIDE (BEAKER) (test code = 382) 105 meq/L 98-107 CO2 (BEAKER) (test code = 355) 25 meq/L 22-29 BLOOD UREA NITROGEN (BEAKER) (test code = 354) 9 mg/dL 7-21 CREATININE (BEAKER) (test code = 358) 0.66 mg/dL 0.57-1.25 GLUCOSE RANDOM (BEAKER) (test code = 652) 120 mg/dL 70-105 H CALCIUM (BEAKER) (test code = 697) 9.6 mg/dL 8.4-10.2 AST (SGOT) (BEAKER) (test code = 353) 38 U/L 5-34 H ALT (SGPT) (BEAKER) (test code = 347) 53 U/L 6-55 EGFR (BEAKER) (test code = 1092) 100 mL/min/1.73 sq m ESTIMATED GFR IS NOT ACCURATE CREATININE CLEARANCE IN PREDICTING GLOMERULAR FILTRATION RATE. ESTIMATED GFR IS NOT APPLICABLE FOR DIALYSIS PATIENTS. Specimen moderately lipemicSTOOL CULTURE + SHIGA [id number] 01:09:00* Test Item Value Reference Range Interpretation Comments CULTURE (BEAKER) (test code = 1095) No Salmonella, Keila gella or Campylobacter isolated SODIUM, RANDOM [id number] 11:45:00* Test Item Value Reference Range Interpretation Comments SODIUM URINE (BEAKER) (test code = 243) 137 meq/L Reference Range: No NormalsPOTASSIUM, RANDOM [id number] 11:44:00* Test Item Value Reference Range Interpretation Comments POTASSIUM URINE (BEAKER) (test code = 195) 10.0 meq/L Reference Range: No NormalsPROTEIN, RANDOM [id number] 11:44:00* Test Item Value Reference Range Interpretation Comments PROTEIN, URINE (BEAKER) (test code = 1569) < mg/dL 0-14 CHLORIDE, RANDOM [id number] 11:32:00* Test Item Value Reference Range Interpretation Comments CHLORIDE URINE (BEAKER) (test code = 682) 124 meq/L Reference Range: No NormalsCREATININE, RANDOM [id number] 11:32:00* Test Item Value Reference Range Interpretation Comments CREATININE URINE (BEAKER) (test code = 375) 33.2 mg/dL Reference Range: No NormalsMAGNESIUM, RANDOM [id number] 11:32:00* Test Item Value Reference Range Interpretation Comments MAGNESIUM URINE (BEAKER) (test code = 834) 3.2 mg/dL Reference Range: No NormalsCBC W/PLT COUNT & AUTO [id number] 10:04:00* Test Item Value Reference Range Interpretation Comments WHITE BLOOD CELL COUNT (BEAKER) (test code = 775) 2.1 K/ L 3.5- 10.5 L RED BLOOD CELL COUNT (BEAKER) (test code = 761) 3.28 M/ L 3.93-5 .22 L HEMOGLOBIN (BEAKER) (test code = 410) 9.5 GM/DL 11.2-15.7 L HEMATOCRIT (BEAKER) (test code = 411) 28.8 % 34.1-44.9 L MEAN CORPUSCULAR VOLUME (BEAKER) (test code = 753) 87.8 fL 79. 4-94.8 MEAN CORPUSCULAR HEMOGLOBIN (BEAKER) (test code = 751) 29.0 pg 25.6-32.2 MEAN CORPUSCULAR HEMOGLOBIN CONC (BEAKER) (test code = 752) 33.0 GM/DL 32.2-35.5 RED CELL DISTRIBUTION WIDTH (BEAKER) (test code = 412) 17.8 % 11.7-14.4 H PLATELET COUNT (BEAKER) (test code = 756) 250 K/CU MM 150-450 MEAN PLATELET VOLUME (BEAKER) (test code = 754) 10.4 fL 9.4-12 .3 NUCLEATED RED BLOOD CELLS (BEAKER) (test code = 413) 0 /100 WBC 0 -0 (CELLAVISION MANUAL DIFF)2018-04-28 10:04:00* Test Item Value Reference Range Interpretation Comments NEUTROPHILS - REL (CELLAVISION)(BEAKER) (test code = 2816) 20 % LYMPHOCYTES - REL (CELLAVISION)(BEAKER) (test code = 2817) 67 % MONOCYTES - REL (CELLAVISION)(BEAKER) (test code = 2818) 4 % EOSINOPHILS - REL (CELLAVISION)(BEAKER) (test code = 2819) 9 % BASOPHILS - REL (CELLAVISION)(BEAKER) (test code = 2820) 1 % NEUTROPHILS - ABS (CELLAVISION)(BEAKER) (test code = 2830) 0.42 K/ul 1.56-6.13 L LYMPHOCYTES - ABS (CELLAVISION)(BEAKER) (test code = 2831) 1.41 K/ul 1.18-3.74 MONOCYTES - ABS (CELLAVISION)(BEAKER) (test code = 2832) 0.08 K/uL 0.24-0.36 L EOSINOPHILS - ABS (CELLAVISION)(BEAKER) (test code = 2834) 0.19 K/uL 0.04-0.36 BASOPHILS - ABS (CELLAVISION)(BEAKER) (test code = 2835) 0.02 K/uL 0.01-0.08 TOTAL COUNTED (BEAKER) (test code = 1351) 100 WBC MORPHOLOGY (BEAKER) (test code = 487) Normal GIANT PLATELETS (BEAKER) (test code = 313) Present LARGE PLT(BEAKER) (test code = 2156) Present POLYCHROMATOPHILLIC RBCS(BEAKER) (test code = 478) 1+ few HYPOCHROMIA (BEAKER) (test code = 963) 1+ few ANISOCYTOSIS (BEAKER) (test code = 961) 2+ moderate MICROCYTES (BEAKER) (test code = 965) 1+ few MACROCYTES (BEAKER) (test code = 964) 2+ moderate POIKILOCYTES (BEAKER) (test code = 966) 3+ many TARGET CELLS (BEAKER) (test code = 480) 2+ moderate SCHISTOCYTES (BEAKER) (test code = 765) 2+ moderate ELLIPTOCYTES (BEAKER) (test code = 962) 2+ moderate OVALOCYTES (BEAKER) (test code = 477) 1+ few TEAR DROP CELLS (BEAKER) (test code = 481) 2+ moderate ACANTHOCYTES (BEAKER) (test code = 471) 1+ few ARTIFACT (CELLAVISION)(BEAKER) (test code = 3432) Present PLATELET CONCENTRATION (CELLAVISION)(BEAKER) (test code = 3438) Theresa quate Received comment: User comments: Slide comments: OSMOLALITY, [id number] 09:28:00* Test Item Value Reference Range Interpretation Comments OSMOLALITY URINE (BEAKER) (test code = 614) 369 mOsm/kg 40-1400 URINALYSIS W/ [id number] 09:28:00* Test Item Value Reference Range Interpretation Comments COLOR (BEAKER) (test code = 470) Light Yellow CLARITY (BEAKER) (test code = 469) Clear SPECIFIC GRAVITY UA (BEAKER) (test code = 468) 1.008 1.001-1 .035 PH UA (BEAKER) (test code = 467) 7.0 5.0-8.0 PROTEIN UA (BEAKER) (test code = 464) Negative Negative GLUCOSE UA (BEAKER) (test code = 365) Negative Negative KETONES UA (BEAKER) (test code = 371) Negative Negative BILIRUBIN UA (BEAKER) (test code = 462) Negative Negative BLOOD UA (BEAKER) (test code = 461) Negative Negative NITRITE UA (BEAKER) (test code = 465) Negative Negative LEUKOCYTE ESTERASE UA (BEAKER) (test code = 466) Negative Negat ivonne UROBILINOGEN UA (BEAKER) (test code = 463) 0.2 mg/dL 0.2-1.0 RBC UA (BEAKER) (test code = 519) < /HPF WBC UA (BEAKER) (test code = 520) 1 /HPF BACTERIA (BEAKER) (test code = 517) Occasional SQUAMOUS EPITHELIAL (BEAKER) (test code = 516) 1 /HPF SOURCE(BEAKER) (test code = 2795) Urine, Voided SHIGA TOXIN [id number] 08:40:00* Test Item Value Reference Range Interpretation Comments SHIGA TOXIN 1 (BEAKER) (test code = 2177) Not detected Not detected SHIGA TOXIN 2 (BEAKER) (test code = 2179) Not detected Not detected HEPATIC FUNCTION [id number] 06:28:00* Test Item Value Reference Range Interpretation Comments TOTAL PROTEIN (BEAKER) (test code = 770) 7.6 gm/dL 6.0-8.3 Specimen markedly hemolyzed ALBUMIN (BEAKER) (test code = 1145) 3.6 g/dL 3.5-5.0 Specimen markedly hemolyzed BILIRUBIN TOTAL (BEAKER) (test code = 377) 0.2 mg/dL 0.2-1.2 Specimen markedly hemolyzed BILIRUBIN DIRECT (BEAKER) (test code = 706) < mg/dL 0.1-0.5 L Specimen markedly hemolyzed ALKALINE PHOSPHATASE (BEAKER) (test code = 346) 158 U/L 40-150 H AST (SGOT) (BEAKER) (test code = 353) 61 U/L 5-34 H Specimen markedly hemolyzed ALT (SGPT) (BEAKER) (test code = 347) 55 U/L 6-55 Specimen markedly hemolyzed Specimen markedly [id number] 06:21:00* Test Item Value Reference Range Interpretation Comments MAGNESIUM (BEAKER) (test code = 627) 2.9 mg/dL 1.6-2.6 H Specimen markedly hemolyzed [id number] 06:21:00* Test Item Value Reference Range Interpretation Comments PHOSPHORUS (BEAKER) (test code = 604) 5.0 mg/dL 2.3-4.7 H Specimen markedly hemolyzed COMPREHENSIVE METABOLIC [id number] 06:21:00* Test Item Value Reference Range Interpretation Comments TOTAL PROTEIN (BEAKER) (test code = 770) 7.6 gm/dL 6.0-8.3 Specimen markedly hemolyzed ALBUMIN (BEAKER) (test code = 1145) 3.6 g/dL 3.5-5.0 Specimen markedly hemolyzed ALKALINE PHOSPHATASE (BEAKER) (test code = 346) 158 U/L 40-150 H BILIRUBIN TOTAL (BEAKER) (test code = 377) 0.2 mg/dL 0.2-1.2 Specimen markedly hemolyzed SODIUM (BEAKER) (test code = 381) 141 meq/L 136-145 POTASSIUM (BEAKER) (test code = 379) 4.4 meq/L 3.5-5.1 Specimen markedly hemolyzed CHLORIDE (BEAKER) (test code = 382) 105 meq/L 98-107 CO2 (BEAKER) (test code = 355) 26 meq/L 22-29 BLOOD UREA NITROGEN (BEAKER) (test code = 354) 9 mg/dL 7-21 CREATININE (BEAKER) (test code = 358) 0.69 mg/dL 0.57-1.25 Specimen markedly hemolyzed GLUCOSE RANDOM (BEAKER) (test code = 652) 125 mg/dL 70-105 H CALCIUM (BEAKER) (test code = 697) 9.3 mg/dL 8.4-10.2 AST (SGOT) (BEAKER) (test code = 353) 61 U/L 5-34 H Specimen markedly hemolyzed ALT (SGPT) (BEAKER) (test code = 347) 55 U/L 6-55 Specimen markedly hemolyzed EGFR (BEAKER) (test code = 1092) 95 mL/min/1.73 sq m ESTIMATED GFR IS NOT ACCURATE CREATININE CLEARANCE IN PREDICTING GLOMERULAR FILTRATION RATE. ESTIMATED GFR IS NOT APPLICABLE FOR DIALYSIS PATIENTS. Specimen markedly [id number] 06:21:00* Test Item Value Reference Range Interpretation Comments AMYLASE (BEAKER) (test code = 349) 49 U/L 25-125 Specimen markedly hemolyzed [id number] 06:21:00* Test Item Value Reference Range Interpretation Comments LIPASE (BEAKER) (test code = 749) 16 U/L 8-78 [id number] 16:02:00* Test Item Value Reference Range Interpretation Comments MAGNESIUM (BEAKER) (test code = 627) 4.9 mg/dL 1.6-2.6 H Specimen markedly hemolyzed BASIC METABOLIC [id number] 16:02:00* Test Item Value Reference Range Interpretation Comments SODIUM (BEAKER) (test code = 381) 135 meq/L 136-145 L POTASSIUM (BEAKER) (test code = 379) 5.7 meq/L 3.5-5.1 H Specimen markedly hemolyzed CHLORIDE (BEAKER) (test code = 382) 101 meq/L 98-107 CO2 (BEAKER) (test code = 355) 19 meq/L 22-29 L BLOOD UREA NITROGEN (BEAKER) (test code = 354) 7 mg/dL 7-21 CREATININE (BEAKER) (test code = 358) 0.71 mg/dL 0.57-1.25 Specimen markedly hemolyzed GLUCOSE RANDOM (BEAKER) (test code = 652) 112 mg/dL 70-105 H CALCIUM (BEAKER) (test code = 697) 9.6 mg/dL 8.4-10.2 EGFR (BEAKER) (test code = 1092) 92 mL/min/1.73 sq m ESTIMATED GFR IS NOT ACCURATE CREATININE CLEARANCE IN PREDICTING GLOMERULAR FILTRATION RATE. ESTIMATED GFR IS NOT APPLICABLE FOR DIALYSIS PATIENTS. CBC W/PLT COUNT & AUTO [id number] 15:27:00* Test Item Value Reference Range Interpretation Comments WHITE BLOOD CELL COUNT (BEAKER) (test code = 775) 2.6 K/ L 3.5- 10.5 L RED BLOOD CELL COUNT (BEAKER) (test code = 761) 3.30 M/ L 3.93-5 .22 L HEMOGLOBIN (BEAKER) (test code = 410) 10.0 GM/DL 11.2-15.7 L HEMATOCRIT (BEAKER) (test code = 411) 29.2 % 34.1-44.9 L MEAN CORPUSCULAR VOLUME (BEAKER) (test code = 753) 88.5 fL 79. 4-94.8 MEAN CORPUSCULAR HEMOGLOBIN (BEAKER) (test code = 751) 30.3 pg 25.6-32.2 MEAN CORPUSCULAR HEMOGLOBIN CONC (BEAKER) (test code = 752) 34.2 GM/DL 32.2-35.5 RED CELL DISTRIBUTION WIDTH (BEAKER) (test code = 412) 17.9 % 11.7-14.4 H PLATELET COUNT (BEAKER) (test code = 756) 254 K/CU MM 150-450 MEAN PLATELET VOLUME (BEAKER) (test code = 754) 10.5 fL 9.4-12 .3 NUCLEATED RED BLOOD CELLS (BEAKER) (test code = 413) 0 /100 WBC 0 -0 (MANUAL DIFFERENTIAL)2018-04-27 15:27:00* Test Item Value Reference Range Interpretation Comments NEUTROPHILS - REL (DIFF) (BEAKER) (test code = 1359) 7 % LYMPHOCYTES - REL (DIFF) (BEAKER) (test code = 1360) 80 % MONOCYTES - REL (DIFF) (BEAKER) (test code = 1361) 6 % EOSINOPHILS - REL (DIFF) (BEAKER) (test code = 1362) 7 % NEUTROPHILS - ABS (DIFF) (BEAKER) (test code = 1365) 0.18 K/ L 1 .80-8.00 L LYMPHOCYTES - ABS (DIFF) (BEAKER) (test code = 1366) 2.08 K/ L 1 .48-4.50 MONOCYTES - ABS (DIFF) (BEAKER) (test code = 1367) 0.16 K/ L 0.0 0-1.30 EOSINOPHILS - ABS (DIFF) (BEAKER) (test code = 1368) 0.18 K/ L 0 .00-0.50 TOTAL COUNTED (BEAKER) (test code = 1351) 100 WBC MORPHOLOGY (BEAKER) (test code = 487) Normal PLT MORPHOLOGY (BEAKER) (test code = 486) Normal OVALOCYTES (BEAKER) (test code = 477) 1+ few [id number] 13:37:00* Test Item Value Reference Range Interpretation Comments MAGNESIUM (BEAKER) (test code = 627) 3.7 mg/dL 1.6-2.6 H Specimen markedly hemolyzed BASIC METABOLIC [id number] 13:37:00* Test Item Value Reference Range Interpretation Comments SODIUM (BEAKER) (test code = 381) 138 meq/L 136-145 POTASSIUM (BEAKER) (test code = 379) 4.7 meq/L 3.5-5.1 Specimen markedly hemolyzed CHLORIDE (BEAKER) (test code = 382) 105 meq/L 98-107 CO2 (BEAKER) (test code = 355) 18 meq/L 22-29 L BLOOD UREA NITROGEN (BEAKER) (test code = 354) 6 mg/dL 7-21 L CREATININE (BEAKER) (test code = 358) 0.69 mg/dL 0.57-1.25 Specimen markedly hemolyzed GLUCOSE RANDOM (BEAKER) (test code = 652) 127 mg/dL 70-105 H CALCIUM (BEAKER) (test code = 697) 9.6 mg/dL 8.4-10.2 EGFR (BEAKER) (test code = 1092) 95 mL/min/1.73 sq m ESTIMATED GFR IS NOT ACCURATE CREATININE CLEARANCE IN PREDICTING GLOMERULAR FILTRATION RATE. ESTIMATED GFR IS NOT APPLICABLE FOR DIALYSIS PATIENTS. [id number] 11:06:00* Test Item Value Reference Range Interpretation Comments MAGNESIUM (BEAKER) (test code = 627) 3.7 mg/dL 1.6-2.6 H Specimen markedly hemolyzed BASIC METABOLIC [id number] 11:06:00* Test Item Value Reference Range Interpretation Comments SODIUM (BEAKER) (test code = 381) 138 meq/L 136-145 POTASSIUM (BEAKER) (test code = 379) 4.6 meq/L 3.5-5.1 Specimen markedly hemolyzed CHLORIDE (BEAKER) (test code = 382) 105 meq/L 98-107 CO2 (BEAKER) (test code = 355) 18 meq/L 22-29 L BLOOD UREA NITROGEN (BEAKER) (test code = 354) 6 mg/dL 7-21 L CREATININE (BEAKER) (test code = 358) 0.64 mg/dL 0.57-1.25 Specimen markedly hemolyzed GLUCOSE RANDOM (BEAKER) (test code = 652) 116 mg/dL 70-105 H CALCIUM (BEAKER) (test code = 697) 9.4 mg/dL 8.4-10.2 EGFR (BEAKER) (test code = 1092) 104 mL/min/1.73 sq m ESTIMATED GFR IS NOT ACCURATE CREATININE CLEARANCE IN PREDICTING GLOMERULAR FILTRATION RATE. ESTIMATED GFR IS NOT APPLICABLE FOR DIALYSIS PATIENTS. HEPATIC FUNCTION [id number] 06:00:00* Test Item Value Reference Range Interpretation Comments TOTAL PROTEIN (BEAKER) (test code = 770) 8.2 gm/dL 6.0-8.3 Specimen slightly hemolyzed ALBUMIN (BEAKER) (test code = 1145) 3.8 g/dL 3.5-5.0 Specimen slightly hemolyzed BILIRUBIN TOTAL (BEAKER) (test code = 377) 0.3 mg/dL 0.2-1.2 Specimen slightly hemolyzed BILIRUBIN DIRECT (BEAKER) (test code = 706) < mg/dL 0.1-0.5 L Specimen slightly hemolyzed ALKALINE PHOSPHATASE (BEAKER) (test code = 346) 180 U/L 40-150 H AST (SGOT) (BEAKER) (test code = 353) 53 U/L 5-34 H Specimen slightly hemolyzed ALT (SGPT) (BEAKER) (test code = 347) 69 U/L 6-55 H Specimen slightly hemolyzed Specimen markedly [id number] 05:54:00* Test Item Value Reference Range Interpretation Comments MAGNESIUM (BEAKER) (test code = 627) 2.8 mg/dL 1.6-2.6 H Specimen slightly hemolyzed BASIC METABOLIC [id number] 05:54:00* Test Item Value Reference Range Interpretation Comments SODIUM (BEAKER) (test code = 381) 142 meq/L 136-145 POTASSIUM (BEAKER) (test code = 379) 3.8 meq/L 3.5-5.1 Specimen slightly hemolyzed CHLORIDE (BEAKER) (test code = 382) 109 meq/L 98-107 H CO2 (BEAKER) (test code = 355) 22 meq/L 22-29 BLOOD UREA NITROGEN (BEAKER) (test code = 354) 4 mg/dL 7-21 L CREATININE (BEAKER) (test code = 358) 0.67 mg/dL 0.57-1.25 Specimen slightly hemolyzed GLUCOSE RANDOM (BEAKER) (test code = 652) 116 mg/dL 70-105 H CALCIUM (BEAKER) (test code = 697) 9.5 mg/dL 8.4-10.2 EGFR (BEAKER) (test code = 1092) 99 mL/min/1.73 sq m ESTIMATED GFR IS NOT ACCURATE CREATININE CLEARANCE IN PREDICTING GLOMERULAR FILTRATION RATE. ESTIMATED GFR IS NOT APPLICABLE FOR DIALYSIS PATIENTS. STOOL PATH [id number] 12:40:00* Test Item Value Reference Range Interpretation Comments PATHOGEN EXAM CHARGED (BEAKER) (test code = 2381) Done CBC W/PLT COUNT & AUTO [id number] 12:12:00* Test Item Value Reference Range Interpretation Comments WHITE BLOOD CELL COUNT (BEAKER) (test code = 775) 2.2 K/ L 3.5- 10.5 L RED BLOOD CELL COUNT (BEAKER) (test code = 761) 3.23 M/ L 3.93-5 .22 L HEMOGLOBIN (BEAKER) (test code = 410) 9.0 GM/DL 11.2-15.7 L HEMATOCRIT (BEAKER) (test code = 411) 28.0 % 34.1-44.9 L MEAN CORPUSCULAR VOLUME (BEAKER) (test code = 753) 86.7 fL 79. 4-94.8 MEAN CORPUSCULAR HEMOGLOBIN (BEAKER) (test code = 751) 27.9 pg 25.6-32.2 MEAN CORPUSCULAR HEMOGLOBIN CONC (BEAKER) (test code = 752) 32.1 GM/DL 32.2-35.5 L RED CELL DISTRIBUTION WIDTH (BEAKER) (test code = 412) 17.9 % 11.7-14.4 H PLATELET COUNT (BEAKER) (test code = 756) 223 K/CU MM 150-450 MEAN PLATELET VOLUME (BEAKER) (test code = 754) 10.2 fL 9.4-12 .3 NUCLEATED RED BLOOD CELLS (BEAKER) (test code = 413) 0 /100 WBC 0 -0 (CELLAVISION MANUAL DIFF)2018-04-26 12:12:00* Test Item Value Reference Range Interpretation Comments NEUTROPHILS - REL (CELLAVISION)(BEAKER) (test code = 2816) 4 % LYMPHOCYTES - REL (CELLAVISION)(BEAKER) (test code = 2817) 80 % MONOCYTES - REL (CELLAVISION)(BEAKER) (test code = 2818) 9 % EOSINOPHILS - REL (CELLAVISION)(BEAKER) (test code = 2819) 8 % NEUTROPHILS - ABS (CELLAVISION)(BEAKER) (test code = 2830) 0.09 K/ul 1.56-6.13 L LYMPHOCYTES - ABS (CELLAVISION)(BEAKER) (test code = 2831) 1.76 K/ul 1.18-3.74 MONOCYTES - ABS (CELLAVISION)(BEAKER) (test code = 2832) 0.20 K/uL 0.24-0.36 L EOSINOPHILS - ABS (CELLAVISION)(BEAKER) (test code = 2834) 0.18 K/uL 0.04-0.36 TOTAL COUNTED (BEAKER) (test code = 1351) 100 WBC MORPHOLOGY (BEAKER) (test code = 487) Normal PLT MORPHOLOGY (BEAKER) (test code = 486) Normal ANISOCYTOSIS (BEAKER) (test code = 961) 1+ few MICROCYTES (BEAKER) (test code = 965) 1+ few POIKILOCYTES (BEAKER) (test code = 966) 1+ few OVALOCYTES (BEAKER) (test code = 477) 1+ few ARTIFACT (CELLAVISION)(BEAKER) (test code = 3432) Present PLATELET CONCENTRATION (CELLAVISION)(BEAKER) (test code = 3438) Theresa quate Received comment: User comments: Slide comments: HEPATIC FUNCTION PANEL 2018-04-26 06:59:00* Test Item Value Reference Range Interpretation Comments TOTAL PROTEIN (BEAKER) (test code = 770) 6.0 gm/dL 6.0-8.3 ALBUMIN (BEAKER) (test code = 1145) 3.4 g/dL 3.5-5.0 L BILIRUBIN TOTAL (BEAKER) (test code = 377) 0.1 mg/dL 0.2-1.2 L BILIRUBIN DIRECT (BEAKER) (test code = 706) < mg/dL 0.1-0.5 L ALKALINE PHOSPHATASE (BEAKER) (test code = 346) 152 U/L 40-150 H AST (SGOT) (BEAKER) (test code = 353) 34 U/L 5-34 ALT (SGPT) (BEAKER) (test code = 347) 61 U/L 6-55 H [id number] 06:58:00* Test Item Value Reference Range Interpretation Comments PHOSPHORUS (BEAKER) (test code = 604) 3.3 mg/dL 2.3-4.7 [id number] 06:58:00* Test Item Value Reference Range Interpretation Comments MAGNESIUM (BEAKER) (test code = 627) 2.0 mg/dL 1.6-2.6 BASIC METABOLIC [id number] 06:58:00* Test Item Value Reference Range Interpretation Comments SODIUM (BEAKER) (test code = 381) 139 meq/L 136-145 POTASSIUM (BEAKER) (test code = 379) 3.5 meq/L 3.5-5.1 CHLORIDE (BEAKER) (test code = 382) 107 meq/L 98-107 CO2 (BEAKER) (test code = 355) 26 meq/L 22-29 BLOOD UREA NITROGEN (BEAKER) (test code = 354) 8 mg/dL 7-21 CREATININE (BEAKER) (test code = 358) 0.62 mg/dL 0.57-1.25 GLUCOSE RANDOM (BEAKER) (test code = 652) 132 mg/dL 70-105 H CALCIUM (BEAKER) (test code = 697) 8.5 mg/dL 8.4-10.2 EGFR (BEAKER) (test code = 1092) 108 mL/min/1.73 sq m ESTIMATED GFR IS NOT ACCURATE CREATININE CLEARANCE IN PREDICTING GLOMERULAR FILTRATION RATE. ESTIMATED GFR IS NOT APPLICABLE FOR DIALYSIS PATIENTS. URINALYSIS W/ [id number] 15:57:00* Test Item Value Reference Range Interpretation Comments COLOR (BEAKER) (test code = 470) Colorless CLARITY (BEAKER) (test code = 469) Clear SPECIFIC GRAVITY UA (BEAKER) (test code = 468) 1.005 1.001-1 .035 PH UA (BEAKER) (test code = 467) 6.5 5.0-8.0 PROTEIN UA (BEAKER) (test code = 464) Negative Negative GLUCOSE UA (BEAKER) (test code = 365) Negative Negative KETONES UA (BEAKER) (test code = 371) Negative Negative BILIRUBIN UA (BEAKER) (test code = 462) Negative Negative BLOOD UA (BEAKER) (test code = 461) Negative Negative NITRITE UA (BEAKER) (test code = 465) Negative Negative LEUKOCYTE ESTERASE UA (BEAKER) (test code = 466) Negative Negat ivonne UROBILINOGEN UA (BEAKER) (test code = 463) 0.2 mg/dL 0.2-1.0 RBC UA (BEAKER) (test code = 519) 2 /HPF WBC UA (BEAKER) (test code = 520) 1 /HPF BACTERIA (BEAKER) (test code = 517) Moderate MUCUS (BEAKER) (test code = 1574) Rare SQUAMOUS EPITHELIAL (BEAKER) (test code = 516) 2 /HPF SOURCE(BEAKER) (test code = 7975) Urine, Clean Catch CBC W/PLT COUNT & AUTO [id number] 12:32:00* Test Item Value Reference Range Interpretation Comments WHITE BLOOD CELL COUNT (BEAKER) (test code = 775) 1.7 K/ L 3.5- 10.5 L RED BLOOD CELL COUNT (BEAKER) (test code = 761) 3.38 M/ L 3.93-5 .22 L HEMOGLOBIN (BEAKER) (test code = 410) 9.2 GM/DL 11.2-15.7 L HEMATOCRIT (BEAKER) (test code = 411) 29.0 % 34.1-44.9 L MEAN CORPUSCULAR VOLUME (BEAKER) (test code = 753) 85.8 fL 79. 4-94.8 MEAN CORPUSCULAR HEMOGLOBIN (BEAKER) (test code = 751) 27.2 pg 25.6-32.2 MEAN CORPUSCULAR HEMOGLOBIN CONC (BEAKER) (test code = 752) 31.7 GM/DL 32.2-35.5 L RED CELL DISTRIBUTION WIDTH (BEAKER) (test code = 412) 17.5 % 11.7-14.4 H PLATELET COUNT (BEAKER) (test code = 756) 211 K/CU MM 150-450 MEAN PLATELET VOLUME (BEAKER) (test code = 754) 9.9 fL 9.4-12 .3 NUCLEATED RED BLOOD CELLS (BEAKER) (test code = 413) 0 /100 WBC 0 -0 (CELLAVISION MANUAL DIFF)[id number] 12:32:00* Test Item Value Reference Range Interpretation Comments NEUTROPHILS - REL (CELLAVISION)(BEAKER) (test code = 2816) 26 % LYMPHOCYTES - REL (CELLAVISION)(BEAKER) (test code = 2817) 59 % MONOCYTES - REL (CELLAVISION)(BEAKER) (test code = 2818) 6 % EOSINOPHILS - REL (CELLAVISION)(BEAKER) (test code = 2819) 8 % BASOPHILS - REL (CELLAVISION)(BEAKER) (test code = 2820) 1 % NEUTROPHILS - ABS (CELLAVISION)(BEAKER) (test code = 2830) 0.44 K/ul 1.56-6.13 L LYMPHOCYTES - ABS (CELLAVISION)(BEAKER) (test code = 2831) 1.00 K/ul 1.18-3.74 L MONOCYTES - ABS (CELLAVISION)(BEAKER) (test code = 2832) 0.10 K/uL 0.24-0.36 L EOSINOPHILS - ABS (CELLAVISION)(BEAKER) (test code = 2834) 0.14 K/uL 0.04-0.36 BASOPHILS - ABS (CELLAVISION)(BEAKER) (test code = 2835) 0.02 K/uL 0.01-0.08 TOTAL COUNTED (BEAKER) (test code = 1351) 100 WBC MORPHOLOGY (BEAKER) (test code = 487) Normal PLT MORPHOLOGY (BEAKER) (test code = 486) Normal ANISOCYTOSIS (BEAKER) (test code = 961) 1+ few MICROCYTES (BEAKER) (test code = 965) 1+ few POIKILOCYTES (BEAKER) (test code = 966) 1+ few ARTIFACT (CELLAVISION)(BEAKER) (test code = 3432) Present PLATELET CONCENTRATION (CELLAVISION)(BEAKER) (test code = 3438) Theresa quate Received comment: User comments: Slide comments: HEPATITIS PANEL, ACUTE 2018-04-25 12:10:00* Test Item Value Reference Range Interpretation Comments HEPATITIS A IGM ANTIBODY (BEAKER) (test code = 498) Nonreactive No nreactive HEPATITIS B CORE IGM ANTIBODY (BEAKER) (test code = 645) Non reactive Nonreactive HEPATITIS C ANTIBODY (BEAKER) (test code = 367) Nonreactive Nonrea ctive HEPATITIS B SURFACE ANTIGEN (2) (BEAKER) (test code = 2585) Nonreactive Nonreactive [id number] 11:47:00* Test Item Value Reference Range Interpretation Comments PHOSPHORUS (BEAKER) (test code = 604) 3.1 mg/dL 2.3-4.7 [id number] 11:47:00* Test Item Value Reference Range Interpretation Comments MAGNESIUM (BEAKER) (test code = 627) 1.9 mg/dL 1.6-2.6 BASIC METABOLIC [id number] 11:47:00* Test Item Value Reference Range Interpretation Comments SODIUM (BEAKER) (test code = 381) 139 meq/L 136-145 POTASSIUM (BEAKER) (test code = 379) 3.3 meq/L 3.5-5.1 L CHLORIDE (BEAKER) (test code = 382) 108 meq/L 98-107 H CO2 (BEAKER) (test code = 355) 22 meq/L 22-29 BLOOD UREA NITROGEN (BEAKER) (test code = 354) 8 mg/dL 7-21 CREATININE (BEAKER) (test code = 358) 0.67 mg/dL 0.57-1.25 GLUCOSE RANDOM (BEAKER) (test code = 652) 132 mg/dL 70-105 H CALCIUM (BEAKER) (test code = 697) 8.9 mg/dL 8.4-10.2 EGFR (BEAKER) (test code = 1092) 99 mL/min/1.73 sq m ESTIMATED GFR IS NOT ACCURATE CREATININE CLEARANCE IN PREDICTING GLOMERULAR FILTRATION RATE. ESTIMATED GFR IS NOT APPLICABLE FOR DIALYSIS PATIENTS. HEPATIC FUNCTION [id number] 11:47:00* Test Item Value Reference Range Interpretation Comments TOTAL PROTEIN (BEAKER) (test code = 770) 6.4 gm/dL 6.0-8.3 ALBUMIN (BEAKER) (test code = 1145) 3.6 g/dL 3.5-5.0 BILIRUBIN TOTAL (BEAKER) (test code = 377) 0.3 mg/dL 0.2-1.2 BILIRUBIN DIRECT (BEAKER) (test code = 706) 0.1 mg/dL 0.1-0.5 ALKALINE PHOSPHATASE (BEAKER) (test code = 346) 143 U/L 40-150 AST (SGOT) (BEAKER) (test code = 353) 42 U/L 5-34 H ALT (SGPT) (BEAKER) (test code = 347) 77 U/L 6-55 H C-REACTIVE [id number] 11:47:00* Test Item Value Reference Range Interpretation Comments C-REACTIVE PROTEIN (BEAKER) (test code = 676) 0.06 mg/dL 0.00-0.5 0 RAD, CHEST, 1 VIEW, NON [id number] 08:26:00Reason for exam:->low grade fever.Should this be performed at the bedside?->YesFINAL REPORT CLINICAL HISTORY: low grade fever. TECHNIQUE: 1 view of the chest. COMPARISON: 03/11/2018 IMPRESSION: A right central line again terminates in the SVC. There are no infiltrates or effusions. The cardiomediastinal silhouette is within normal limits for size. Signed: Inna Morel Verified Date/Time: 04/25/2018 08:26:39 Reading Location: [facility] Reading Room U/S, ABDOMINAL, [id number] 22:30:00Abdomen limited area? Add comment if clarification [...] MDReport Verified Date/Time: 04/24/2018 22:30:38 Reading Location: [facility] [id number] CT Body Reading Room W/PLT COUNT & AUTO DIFFERENTIAL 2018-04-24 20:05:00* Test Item Value Reference Range Interpretation Comments WHITE BLOOD CELL COUNT (BEAKER) (test code = 775) 2.6 K/ L 3.5- 10.5 L RED BLOOD CELL COUNT (BEAKER) (test code = 761) 3.64 M/ L 3.93-5 .22 L HEMOGLOBIN (BEAKER) (test code = 410) 9.9 GM/DL 11.2-15.7 L HEMATOCRIT (BEAKER) (test code = 411) 31.0 % 34.1-44.9 L MEAN CORPUSCULAR VOLUME (BEAKER) (test code = 753) 85.2 fL 79. 4-94.8 MEAN CORPUSCULAR HEMOGLOBIN (BEAKER) (test code = 751) 27.2 pg 25.6-32.2 MEAN CORPUSCULAR HEMOGLOBIN CONC (BEAKER) (test code = 752) 31.9 GM/DL 32.2-35.5 L RED CELL DISTRIBUTION WIDTH (BEAKER) (test code = 412) 17.5 % 11.7-14.4 H PLATELET COUNT (BEAKER) (test code = 756) 255 K/CU MM 150-450 MEAN PLATELET VOLUME (BEAKER) (test code = 754) 10.5 fL 9.4-12 .3 NUCLEATED RED BLOOD CELLS (BEAKER) (test code = 413) 0 /100 WBC 0 -0 (CELLAVISION MANUAL DIFF)2018-04-24 20:05:00* Test Item Value Reference Range Interpretation Comments NEUTROPHILS - REL (CELLAVISION)(BEAKER) (test code = 2816) 46 % LYMPHOCYTES - REL (CELLAVISION)(BEAKER) (test code = 2817) 41 % MONOCYTES - REL (CELLAVISION)(BEAKER) (test code = 2818) 7 % EOSINOPHILS - REL (CELLAVISION)(BEAKER) (test code = 2819) 7 % NEUTROPHILS - ABS (CELLAVISION)(BEAKER) (test code = 2830) 1.20 K/ul 1.56-6.13 L LYMPHOCYTES - ABS (CELLAVISION)(BEAKER) (test code = 2831) 1.07 K/ul 1.18-3.74 L MONOCYTES - ABS (CELLAVISION)(BEAKER) (test code = 2832) 0.18 K/uL 0.24-0.36 L EOSINOPHILS - ABS (CELLAVISION)(BEAKER) (test code = 2834) 0.18 K/uL 0.04-0.36 TOTAL COUNTED (BEAKER) (test code = 1351) 100 WBC MORPHOLOGY (BEAKER) (test code = 487) Normal GIANT PLATELETS (BEAKER) (test code = 313) Present POLYCHROMATOPHILLIC RBCS(BEAKER) (test code = 478) 1+ few HYPOCHROMIA (BEAKER) (test code = 963) 1+ few ANISOCYTOSIS (BEAKER) (test code = 961) 2+ moderate MICROCYTES (BEAKER) (test code = 965) 1+ few POIKILOCYTES (BEAKER) (test code = 966) 2+ moderate SCHISTOCYTES (BEAKER) (test code = 765) 1+ few SPHEROCYTES (BEAKER) (test code = 768) 1+ few ELLIPTOCYTES (BEAKER) (test code = 962) 1+ few OVALOCYTES (BEAKER) (test code = 477) 1+ few TEAR DROP CELLS (BEAKER) (test code = 481) 1+ few ARTIFACT (CELLAVISION)(BEAKER) (test code = 3432) Present PLATELET CONCENTRATION (CELLAVISION)(BEAKER) (test code = 3438) Theresa quate Received comment: User comments: Slide comments: [id number] 19:39:00* Test Item Value Reference Range Interpretation Comments LIPASE (BEAKER) (test code = 749) 16 U/L 8-78 COMPREHENSIVE METABOLIC [id number] 19:39:00* Test Item Value Reference Range Interpretation Comments TOTAL PROTEIN (BEAKER) (test code = 770) 7.4 gm/dL 6.0-8.3 Specimen slightly hemolyzed ALBUMIN (BEAKER) (test code = 1145) 4.1 g/dL 3.5-5.0 Specimen slightly hemolyzed ALKALINE PHOSPHATASE (BEAKER) (test code = 346) 183 U/L 40-150 H BILIRUBIN TOTAL (BEAKER) (test code = 377) 0.3 mg/dL 0.2-1.2 Specimen slightly hemolyzed SODIUM (BEAKER) (test code = 381) 140 meq/L 136-145 POTASSIUM (BEAKER) (test code = 379) 3.7 meq/L 3.5-5.1 Specimen slightly hemolyzed CHLORIDE (BEAKER) (test code = 382) 110 meq/L 98-107 H CO2 (BEAKER) (test code = 355) 22 meq/L 22-29 BLOOD UREA NITROGEN (BEAKER) (test code = 354) 11 mg/dL 7-21 CREATININE (BEAKER) (test code = 358) 0.68 mg/dL 0.57-1.25 Specimen slightly hemolyzed GLUCOSE RANDOM (BEAKER) (test code = 652) 120 mg/dL 70-105 H CALCIUM (BEAKER) (test code = 697) 9.6 mg/dL 8.4-10.2 AST (SGOT) (BEAKER) (test code = 353) 70 U/L 5-34 H Specimen slightly hemolyzed ALT (SGPT) (BEAKER) (test code = 347) 111 U/L 6-55 H Specimen slightly hemolyzed EGFR (BEAKER) (test code = 1092) 97 mL/min/1.73 sq m ESTIMATED GFR IS NOT ACCURATE CREATININE CLEARANCE IN PREDICTING GLOMERULAR FILTRATION RATE. ESTIMATED GFR IS NOT APPLICABLE FOR DIALYSIS PATIENTS. Specimen slightly lipemicPT/[id number] 19:29:00* Test Item Value Reference Range Interpretation Comments PROTIME (BEAKER) (test code = 759) 13.6 seconds 11.7-14.7 INR (BEAKER) (test code = 370) 1.0 <=5.9 PARTIAL THROMBOPLASTIN TIME (BEAKER) (test code = 760) 26.5 seconds 22.5-36.0 RECOMMENDED COUMADIN/WARFARIN INR THERAPY RANGESSTANDARD DOSE: 2.0 - 3.0 Inclu yossi: PROPHYLAXIS for venous thrombosis, systemic embolization; TREATMENT for [place] ous thrombosis and/or pulmonary embolus.HIGH RISK: Target INR is 2.5-3.5 for pat ients with mechanical heart valves.[id number] 03:23:00* Test Item Value Reference Range Interpretation Comments LIPASE (BEAKER) (test code = 749) 16 U/L 8-78 [id number] 03:23:00* Test Item Value Reference Range Interpretation Comments AMYLASE (BEAKER) (test code = 349) 41 U/L 25-125 BASIC METABOLIC [id number] 03:23:00* Test Item Value Reference Range Interpretation Comments SODIUM (BEAKER) (test code = 381) 137 meq/L 136-145 POTASSIUM (BEAKER) (test code = 379) 3.7 meq/L 3.5-5.1 CHLORIDE (BEAKER) (test code = 382) 108 meq/L 98-107 H CO2 (BEAKER) (test code = 355) 18 meq/L 22-29 L BLOOD UREA NITROGEN (BEAKER) (test code = 354) 15 mg/dL 7-21 CREATININE (BEAKER) (test code = 358) 0.83 mg/dL 0.57-1.25 GLUCOSE RANDOM (BEAKER) (test code = 652) 99 mg/dL 70-105 CALCIUM (BEAKER) (test code = 697) 9.4 mg/dL 8.4-10.2 EGFR (BEAKER) (test code = 1092) 77 mL/min/1.73 sq m ESTIMATED GFR IS NOT ACCURATE CREATININE CLEARANCE IN PREDICTING GLOMERULAR FILTRATION RATE. ESTIMATED GFR IS NOT APPLICABLE FOR DIALYSIS PATIENTS. HEPATIC FUNCTION [id number] 03:23:00* Test Item Value Reference Range Interpretation Comments TOTAL PROTEIN (BEAKER) (test code = 770) 7.5 gm/dL 6.0-8.3 ALBUMIN (BEAKER) (test code = 1145) 4.2 g/dL 3.5-5.0 BILIRUBIN TOTAL (BEAKER) (test code = 377) 0.3 mg/dL 0.2-1.2 BILIRUBIN DIRECT (BEAKER) (test code = 706) 0.1 mg/dL 0.1-0.5 ALKALINE PHOSPHATASE (BEAKER) (test code = 346) 186 U/L 40-150 H AST (SGOT) (BEAKER) (test code = 353) 47 U/L 5-34 H ALT (SGPT) (BEAKER) (test code = 347) 124 U/L 6-55 H URINALYSIS W/ REFLEX URINE [id number] 03:09:00* Test Item Value Reference Range Interpretation Comments COLOR (BEAKER) (test code = 470) Yellow CLARITY (BEAKER) (test code = 469) Hazy SPECIFIC GRAVITY UA (BEAKER) (test code = 468) 1.016 1.001-1 .035 PH UA (BEAKER) (test code = 467) 6.0 5.0-8.0 PROTEIN UA (BEAKER) (test code = 464) 10 mg/dL Negative A GLUCOSE UA (BEAKER) (test code = 365) Negative Negative KETONES UA (BEAKER) (test code = 371) Negative Negative BILIRUBIN UA (BEAKER) (test code = 462) Negative Negative BLOOD UA (BEAKER) (test code = 461) Negative Negative NITRITE UA (BEAKER) (test code = 465) Negative Negative LEUKOCYTE ESTERASE UA (BEAKER) (test code = 466) Trace Negat ivonne A UROBILINOGEN UA (BEAKER) (test code = 463) 0.2 mg/dL 0.2-1.0 RBC UA (BEAKER) (test code = 519) 2 /HPF WBC UA (BEAKER) (test code = 520) 32 /HPF BACTERIA (BEAKER) (test code = 517) Many MUCUS (BEAKER) (test code = 1574) Moderate SQUAMOUS EPITHELIAL (BEAKER) (test code = 516) 7 /HPF SOURCE(BEAKER) (test code = 2795) CBC W/PLT COUNT & AUTO [id number] 02:59:00* Test Item Value Reference Range Interpretation Comments WHITE BLOOD CELL COUNT (BEAKER) (test code = 775) 4.6 K/ L 3.5- 10.5 RED BLOOD CELL COUNT (BEAKER) (test code = 761) 3.73 M/ L 3.93-5 .22 L HEMOGLOBIN (BEAKER) (test code = 410) 10.2 GM/DL 11.2-15.7 L HEMATOCRIT (BEAKER) (test code = 411) 31.0 % 34.1-44.9 L MEAN CORPUSCULAR VOLUME (BEAKER) (test code = 753) 83.1 fL 79. 4-94.8 MEAN CORPUSCULAR HEMOGLOBIN (BEAKER) (test code = 751) 27.3 pg 25.6-32.2 MEAN CORPUSCULAR HEMOGLOBIN CONC (BEAKER) (test code = 752) 32.9 GM/DL 32.2-35.5 RED CELL DISTRIBUTION WIDTH (BEAKER) (test code = 412) 16.3 % 11.7-14.4 H PLATELET COUNT (BEAKER) (test code = 756) 239 K/CU MM 150-450 MEAN PLATELET VOLUME (BEAKER) (test code = 754) 10.2 fL 9.4-12 .3 NUCLEATED RED BLOOD CELLS (BEAKER) (test code = 413) 0 /100 WBC 0 -0 NEUTROPHILS RELATIVE PERCENT (BEAKER) (test code = 429) 56 % LYMPHOCYTES RELATIVE PERCENT (BEAKER) (test code = 430) 37 % MONOCYTES RELATIVE PERCENT (BEAKER) (test code = 431) 5 % EOSINOPHILS RELATIVE PERCENT (BEAKER) (test code = 432) 2 % BASOPHILS RELATIVE PERCENT (BEAKER) (test code = 437) 0 % NEUTROPHILS ABSOLUTE COUNT (BEAKER) (test code = 670) 2.57 K/ L 1.56-6.13 LYMPHOCYTES ABSOLUTE COUNT (BEAKER) (test code = 414) 1.67 K/ L 1.18-3.74 MONOCYTES ABSOLUTE COUNT (BEAKER) (test code = 415) 0.21 K/ L 0. 24-0.36 L EOSINOPHILS ABSOLUTE COUNT (BEAKER) (test code = 416) 0.10 K/ L 0.04-0.36 BASOPHILS ABSOLUTE COUNT (BEAKER) (test code = 417) 0.00 K/ L 0. 01-0.08 L IMMATURE GRANULOCYTES-RELATIVE PERCENT (BEAKER) (test code = 2801) 0 % 0-1 U/S, ABDOMINAL, [id number] 14:59:00Reason for exam:->ascitesFINAL REPORT INDICATION: Ascites. Request for paracentesis. TECHNIQUE: Abdominal ultrasound limited. COMPARISON: None. FINDINGS:Ultrasound was performed in the abdomen, including all four quadrants. No ascites was dem onstrated. Distended bladder noted. IMPRESSION: Paracentesis not performed. Sign ed: [facility] Verified Date/Time: 04/13/2018 14:59:48 Reading L ocation: [facility] B1 P006J Ultrasound Reading Room HROMBIN TIME/[id number] 12:20:00* Test Item Value Reference Range Interpretation Comments PROTIME (BEAKER) (test code = 759) 13.8 seconds 11.7-14.7 INR (BEAKER) (test code = 370) 1.1 <=5.9 RECOMMENDED COUMADIN/WARFARIN INR THERAPY RANGESSTANDARD DOSE: 2.0 - 3.0 Inclu yossi: PROPHYLAXIS for venous thrombosis, systemic embolization; TREATMENT for [place] ous thrombosis and/or pulmonary embolus.HIGH RISK: Target INR is 2.5-3.5 for pat ients with mechanical heart valves.BASIC METABOLIC [id number] 07:32:00* Test Item Value Reference Range Interpretation Comments SODIUM (BEAKER) (test code = 381) 132 meq/L 136-145 L POTASSIUM (BEAKER) (test code = 379) 3.8 meq/L 3.5-5.1 CHLORIDE (BEAKER) (test code = 382) 105 meq/L 98-107 CO2 (BEAKER) (test code = 355) 23 meq/L 22-29 BLOOD UREA NITROGEN (BEAKER) (test code = 354) 12 mg/dL 7-21 CREATININE (BEAKER) (test code = 358) 0.73 mg/dL 0.57-1.25 GLUCOSE RANDOM (BEAKER) (test code = 652) 213 mg/dL 70-105 H CALCIUM (BEAKER) (test code = 697) 8.8 mg/dL 8.4-10.2 EGFR (BEAKER) (test code = 1092) 89 mL/min/1.73 sq m ESTIMATED GFR IS NOT ACCURATE CREATININE CLEARANCE IN PREDICTING GLOMERULAR FILTRATION RATE. ESTIMATED GFR IS NOT APPLICABLE FOR DIALYSIS PATIENTS. CBC (HEMOGRAM ONLY)2018-04-13 06:39:00* Test Item Value Reference Range Interpretation Comments WHITE BLOOD CELL COUNT (BEAKER) (test code = 775) 13.4 K/ L 3.5- 10.5 H RED BLOOD CELL COUNT (BEAKER) (test code = 761) 3.52 M/ L 3.93-5 .22 L HEMOGLOBIN (BEAKER) (test code = 410) 9.4 GM/DL 11.2-15.7 L HEMATOCRIT (BEAKER) (test code = 411) 30.7 % 34.1-44.9 L MEAN CORPUSCULAR VOLUME (BEAKER) (test code = 753) 87.2 fL 79. 4-94.8 MEAN CORPUSCULAR HEMOGLOBIN (BEAKER) (test code = 751) 26.7 pg 25.6-32.2 MEAN CORPUSCULAR HEMOGLOBIN CONC (BEAKER) (test code = 752) 30.6 GM/DL 32.2-35.5 L RED CELL DISTRIBUTION WIDTH (BEAKER) (test code = 412) 16.1 % 11.7-14.4 H PLATELET COUNT (BEAKER) (test code = 756) 207 K/CU MM 150-450 MEAN PLATELET VOLUME (BEAKER) (test code = 754) 10.6 fL 9.4-12 .3 NUCLEATED RED BLOOD CELLS (BEAKER) (test code = 413) 0 /100 WBC 0 -0 URINALYSIS W/ REFLEX URINE [id number] 16:53:00* Test Item Value Reference Range Interpretation Comments COLOR (BEAKER) (test code = 470) Colorless CLARITY (BEAKER) (test code = 469) Clear SPECIFIC GRAVITY UA (BEAKER) (test code = 468) 1.007 1.001-1 .035 PH UA (BEAKER) (test code = 467) 7.5 5.0-8.0 PROTEIN UA (BEAKER) (test code = 464) Negative Negative GLUCOSE UA (BEAKER) (test code = 365) Negative Negative KETONES UA (BEAKER) (test code = 371) Negative Negative BILIRUBIN UA (BEAKER) (test code = 462) Negative Negative BLOOD UA (BEAKER) (test code = 461) Negative Negative NITRITE UA (BEAKER) (test code = 465) Negative Negative LEUKOCYTE ESTERASE UA (BEAKER) (test code = 466) Negative Negat ivonne UROBILINOGEN UA (BEAKER) (test code = 463) 0.2 mg/dL 0.2-1.0 RBC UA (BEAKER) (test code = 519) 0 /HPF WBC UA (BEAKER) (test code = 520) 1 /HPF BACTERIA (BEAKER) (test code = 517) Occasional SQUAMOUS EPITHELIAL (BEAKER) (test code = 516) 1 /HPF SOURCE(BEAKER) (test code = 6336) BASIC METABOLIC [id number] 06:46:00* Test Item Value Reference Range Interpretation Comments SODIUM (BEAKER) (test code = 381) 137 meq/L 136-145 POTASSIUM (BEAKER) (test code = 379) 4.2 meq/L 3.5-5.1 CHLORIDE (BEAKER) (test code = 382) 107 meq/L 98-107 CO2 (BEAKER) (test code = 355) 24 meq/L 22-29 BLOOD UREA NITROGEN (BEAKER) (test code = 354) 11 mg/dL 7-21 CREATININE (BEAKER) (test code = 358) 0.69 mg/dL 0.57-1.25 GLUCOSE RANDOM (BEAKER) (test code = 652) 121 mg/dL 70-105 H CALCIUM (BEAKER) (test code = 697) 9.3 mg/dL 8.4-10.2 EGFR (BEAKER) (test code = 1092) 95 mL/min/1.73 sq m ESTIMATED GFR IS NOT ACCURATE CREATININE CLEARANCE IN PREDICTING GLOMERULAR FILTRATION RATE. ESTIMATED GFR IS NOT APPLICABLE FOR DIALYSIS PATIENTS. LACTATE DEHYDROGENASE (LDH)2018-04-12 06:44:00* Test Item Value Reference Range Interpretation Comments LACTATE DEHYDROGENASE (BEAKER) (test code = 635) 230 U/L 125-2 20 H CBC W/PLT COUNT & AUTO [id number] 06:30:00* Test Item Value Reference Range Interpretation Comments WHITE BLOOD CELL COUNT (BEAKER) (test code = 775) 11.6 K/ L 3.5- 10.5 H RED BLOOD CELL COUNT (BEAKER) (test code = 761) 3.48 M/ L 3.93-5 .22 L HEMOGLOBIN (BEAKER) (test code = 410) 9.2 GM/DL 11.2-15.7 L HEMATOCRIT (BEAKER) (test code = 411) 30.0 % 34.1-44.9 L MEAN CORPUSCULAR VOLUME (BEAKER) (test code = 753) 86.2 fL 79. 4-94.8 MEAN CORPUSCULAR HEMOGLOBIN (BEAKER) (test code = 751) 26.4 pg 25.6-32.2 MEAN CORPUSCULAR HEMOGLOBIN CONC (BEAKER) (test code = 752) 30.7 GM/DL 32.2-35.5 L RED CELL DISTRIBUTION WIDTH (BEAKER) (test code = 412) 15.9 % 11.7-14.4 H PLATELET COUNT (BEAKER) (test code = 756) 206 K/CU MM 150-450 MEAN PLATELET VOLUME (BEAKER) (test code = 754) 10.8 fL 9.4-12 .3 NUCLEATED RED BLOOD CELLS (BEAKER) (test code = 413) 0 /100 WBC 0 -0 NEUTROPHILS RELATIVE PERCENT (BEAKER) (test code = 429) 84 % LYMPHOCYTES RELATIVE PERCENT (BEAKER) (test code = 430) 7 % MONOCYTES RELATIVE PERCENT (BEAKER) (test code = 431) 8 % EOSINOPHILS RELATIVE PERCENT (BEAKER) (test code = 432) 0 % BASOPHILS RELATIVE PERCENT (BEAKER) (test code = 437) 0 % NEUTROPHILS ABSOLUTE COUNT (BEAKER) (test code = 670) 9.75 K/ L 1.56-6.13 H LYMPHOCYTES ABSOLUTE COUNT (BEAKER) (test code = 414) 0.82 K/ L 1.18-3.74 L MONOCYTES ABSOLUTE COUNT (BEAKER) (test code = 415) 0.98 K/ L 0. 24-0.36 H EOSINOPHILS ABSOLUTE COUNT (BEAKER) (test code = 416) 0.00 K/ L 0.04-0.36 L BASOPHILS ABSOLUTE COUNT (BEAKER) (test code = 417) 0.01 K/ L 0. 01-0.08 IMMATURE GRANULOCYTES-RELATIVE PERCENT (BEAKER) (test code = 2801) 1 % 0-1 CBC (HEMOGRAM ONLY)2018-04-09 06:35:00* Test Item Value Reference Range Interpretation Comments WHITE BLOOD CELL COUNT (BEAKER) (test code = 775) 4.7 K/ L 3.5- 10.5 RED BLOOD CELL COUNT (BEAKER) (test code = 761) 2.90 M/ L 3.93-5 .22 L HEMOGLOBIN (BEAKER) (test code = 410) 7.6 GM/DL 11.2-15.7 L HEMATOCRIT (BEAKER) (test code = 411) 24.3 % 34.1-44.9 L MEAN CORPUSCULAR VOLUME (BEAKER) (test code = 753) 83.8 fL 79. 4-94.8 MEAN CORPUSCULAR HEMOGLOBIN (BEAKER) (test code = 751) 26.2 pg 25.6-32.2 MEAN CORPUSCULAR HEMOGLOBIN CONC (BEAKER) (test code = 752) 31.3 GM/DL 32.2-35.5 L RED CELL DISTRIBUTION WIDTH (BEAKER) (test code = 412) 15.6 % 11.7-14.4 H PLATELET COUNT (BEAKER) (test code = 756) 230 K/CU MM 150-450 MEAN PLATELET VOLUME (BEAKER) (test code = 754) 10.5 fL 9.4-12 .3 NUCLEATED RED BLOOD CELLS (BEAKER) (test code = 413) 0 /100 WBC 0 -0 BASIC METABOLIC [id number] 06:17:00* Test Item Value Reference Range Interpretation Comments SODIUM (BEAKER) (test code = 381) 139 meq/L 136-145 POTASSIUM (BEAKER) (test code = 379) 3.6 meq/L 3.5-5.1 CHLORIDE (BEAKER) (test code = 382) 109 meq/L 98-107 H CO2 (BEAKER) (test code = 355) 25 meq/L 22-29 BLOOD UREA NITROGEN (BEAKER) (test code = 354) 11 mg/dL 7-21 CREATININE (BEAKER) (test code = 358) 0.75 mg/dL 0.57-1.25 GLUCOSE RANDOM (BEAKER) (test code = 652) 107 mg/dL 70-105 H CALCIUM (BEAKER) (test code = 697) 9.0 mg/dL 8.4-10.2 EGFR (BEAKER) (test code = 1092) 86 mL/min/1.73 sq m ESTIMATED GFR IS NOT ACCURATE CREATININE CLEARANCE IN PREDICTING GLOMERULAR FILTRATION RATE. ESTIMATED GFR IS NOT APPLICABLE FOR DIALYSIS PATIENTS. URINALYSIS W/ [id number] 19:46:00* Test Item Value Reference Range Interpretation Comments COLOR (BEAKER) (test code = 470) Yellow CLARITY (BEAKER) (test code = 469) Hazy SPECIFIC GRAVITY UA (BEAKER) (test code = 468) 1.012 1.001-1 .035 PH UA (BEAKER) (test code = 467) 6.0 5.0-8.0 PROTEIN UA (BEAKER) (test code = 464) 10 mg/dL Negative A GLUCOSE UA (BEAKER) (test code = 365) Negative Negative KETONES UA (BEAKER) (test code = 371) Negative Negative BILIRUBIN UA (BEAKER) (test code = 462) Negative Negative BLOOD UA (BEAKER) (test code = 461) Negative Negative NITRITE UA (BEAKER) (test code = 465) Negative Negative LEUKOCYTE ESTERASE UA (BEAKER) (test code = 466) Negative Negat ivonne UROBILINOGEN UA (BEAKER) (test code = 463) 0.2 mg/dL 0.2-1.0 RBC UA (BEAKER) (test code = 519) 1 /HPF WBC UA (BEAKER) (test code = 520) 8 /HPF BACTERIA (BEAKER) (test code = 517) Moderate MUCUS (BEAKER) (test code = 1574) Occasional SQUAMOUS EPITHELIAL (BEAKER) (test code = 516) 4 /HPF SOURCE(BEAKER) (test code = 2795) Urine, Voided CBC W/PLT COUNT & AUTO [id number] 06:25:00* Test Item Value Reference Range Interpretation Comments WHITE BLOOD CELL COUNT (BEAKER) (test code = 775) 3.9 K/ L 3.5- 10.5 RED BLOOD CELL COUNT (BEAKER) (test code = 761) 2.96 M/ L 3.93-5 .22 L HEMOGLOBIN (BEAKER) (test code = 410) 7.7 GM/DL 11.2-15.7 L HEMATOCRIT (BEAKER) (test code = 411) 24.9 % 34.1-44.9 L MEAN CORPUSCULAR VOLUME (BEAKER) (test code = 753) 84.1 fL 79. 4-94.8 MEAN CORPUSCULAR HEMOGLOBIN (BEAKER) (test code = 751) 26.0 pg 25.6-32.2 MEAN CORPUSCULAR HEMOGLOBIN CONC (BEAKER) (test code = 752) 30.9 GM/DL 32.2-35.5 L RED CELL DISTRIBUTION WIDTH (BEAKER) (test code = 412) 15.9 % 11.7-14.4 H PLATELET COUNT (BEAKER) (test code = 756) 210 K/CU MM 150-450 MEAN PLATELET VOLUME (BEAKER) (test code = 754) 9.5 fL 9.4-12 .3 NUCLEATED RED BLOOD CELLS (BEAKER) (test code = 413) 0 /100 WBC 0 -0 NEUTROPHILS RELATIVE PERCENT (BEAKER) (test code = 429) 35 % LYMPHOCYTES RELATIVE PERCENT (BEAKER) (test code = 430) 40 % MONOCYTES RELATIVE PERCENT (BEAKER) (test code = 431) 13 % EOSINOPHILS RELATIVE PERCENT (BEAKER) (test code = 432) 11 % BASOPHILS RELATIVE PERCENT (BEAKER) (test code = 437) 1 % NEUTROPHILS ABSOLUTE COUNT (BEAKER) (test code = 670) 1.36 K/ L 1.56-6.13 L LYMPHOCYTES ABSOLUTE COUNT (BEAKER) (test code = 414) 1.56 K/ L 1.18-3.74 MONOCYTES ABSOLUTE COUNT (BEAKER) (test code = 415) 0.50 K/ L 0. 24-0.36 H EOSINOPHILS ABSOLUTE COUNT (BEAKER) (test code = 416) 0.44 K/ L 0.04-0.36 H BASOPHILS ABSOLUTE COUNT (BEAKER) (test code = 417) 0.02 K/ L 0. 01-0.08 IMMATURE GRANULOCYTES-RELATIVE PERCENT (BEAKER) (test code = 2801) 0 % 0-1 BASIC METABOLIC [id number] 05:59:00* Test Item Value Reference Range Interpretation Comments SODIUM (BEAKER) (test code = 381) 141 meq/L 136-145 POTASSIUM (BEAKER) (test code = 379) 3.4 meq/L 3.5-5.1 L CHLORIDE (BEAKER) (test code = 382) 111 meq/L 98-107 H CO2 (BEAKER) (test code = 355) 24 meq/L 22-29 BLOOD UREA NITROGEN (BEAKER) (test code = 354) 9 mg/dL 7-21 CREATININE (BEAKER) (test code = 358) 0.69 mg/dL 0.57-1.25 GLUCOSE RANDOM (BEAKER) (test code = 652) 88 mg/dL 70-105 CALCIUM (BEAKER) (test code = 697) 8.6 mg/dL 8.4-10.2 EGFR (BEAKER) (test code = 1092) 95 mL/min/1.73 sq m ESTIMATED GFR IS NOT ACCURATE CREATININE CLEARANCE IN PREDICTING GLOMERULAR FILTRATION RATE. ESTIMATED GFR IS NOT APPLICABLE FOR DIALYSIS PATIENTS. [id number] 16:18:00* Test Item Value Reference Range Interpretation Comments FERRITIN (BEAKER) (test code = 361) 10 ng/mL 5-275 VITAMIN B12 AND [id number] 16:18:00* Test Item Value Reference Range Interpretation Comments VITAMIN B12 (BEAKER) (test code = 774) 1464 pg/mL 213-816 H FOLATE (BEAKER) (test code = 362) 16.2 ng/mL >=7.0 RAD, ABDOMEN/KUB, 1 VIEW [id number] 15:52:00Reason for exam:->diarrheaFINAL REPORT Comparison: 12/04/2007 Discussion: Abdomen: Bowel gas pattern is nonobstructed. There is no free intraperitoneal air. Right upper quadrant cholecystectomy clips noted. Regional skeletal structures are un remarkable. Impression: 1. Nonspecific bowel gas pattern. Signed: Selvin Perkins Verified Date/Time: 04/07/2018 15:52:29 Reading Location: [address] Consult Reading Room Electronically signed by: SELVIN PERKINS M.D. on 2017 03:52 PM IRON, TIBC, % SAT. (WITHOUT FERRITIN)2018-04-07 15:43:00* Test Item Value Reference Range Interpretation Comments IRON (BEAKER) (test code = 547) 40 ug/dL 40-160 TOTAL IRON BINDING CAPACITY (BEAKER) (test code = 769) 403 ug/dL 250-450 IRON % SATURATION (2) (BEAKER) (test code = 2590) 10 % 20-5 5 L BASIC METABOLIC [id number] 06:34:00* Test Item Value Reference Range Interpretation Comments SODIUM (BEAKER) (test code = 381) 140 meq/L 136-145 POTASSIUM (BEAKER) (test code = 379) 3.5 meq/L 3.5-5.1 CHLORIDE (BEAKER) (test code = 382) 111 meq/L 98-107 H CO2 (BEAKER) (test code = 355) 22 meq/L 22-29 BLOOD UREA NITROGEN (BEAKER) (test code = 354) 8 mg/dL 7-21 CREATININE (BEAKER) (test code = 358) 0.68 mg/dL 0.57-1.25 GLUCOSE RANDOM (BEAKER) (test code = 652) 96 mg/dL 70-105 CALCIUM (BEAKER) (test code = 697) 9.0 mg/dL 8.4-10.2 EGFR (BEAKER) (test code = 1092) 97 mL/min/1.73 sq m ESTIMATED GFR IS NOT ACCURATE CREATININE CLEARANCE IN PREDICTING GLOMERULAR FILTRATION RATE. ESTIMATED GFR IS NOT APPLICABLE FOR DIALYSIS PATIENTS. CBC W/PLT COUNT & AUTO [id number] 05:21:00* Test Item Value Reference Range Interpretation Comments WHITE BLOOD CELL COUNT (BEAKER) (test code = 775) 3.5 K/ L 3.5- 10.5 RED BLOOD CELL COUNT (BEAKER) (test code = 761) 2.81 M/ L 3.93-5 .22 L HEMOGLOBIN (BEAKER) (test code = 410) 7.2 GM/DL 11.2-15.7 L HEMATOCRIT (BEAKER) (test code = 411) 23.7 % 34.1-44.9 L MEAN CORPUSCULAR VOLUME (BEAKER) (test code = 753) 84.3 fL 79. 4-94.8 MEAN CORPUSCULAR HEMOGLOBIN (BEAKER) (test code = 751) 25.6 pg 25.6-32.2 MEAN CORPUSCULAR HEMOGLOBIN CONC (BEAKER) (test code = 752) 30.4 GM/DL 32.2-35.5 L RED CELL DISTRIBUTION WIDTH (BEAKER) (test code = 412) 16.5 % 11.7-14.4 H PLATELET COUNT (BEAKER) (test code = 756) 227 K/CU MM 150-450 MEAN PLATELET VOLUME (BEAKER) (test code = 754) 10.0 fL 9.4-12 .3 NUCLEATED RED BLOOD CELLS (BEAKER) (test code = 413) 0 /100 WBC 0 -0 NEUTROPHILS RELATIVE PERCENT (BEAKER) (test code = 429) 33 % LYMPHOCYTES RELATIVE PERCENT (BEAKER) (test code = 430) 43 % MONOCYTES RELATIVE PERCENT (BEAKER) (test code = 431) 12 % EOSINOPHILS RELATIVE PERCENT (BEAKER) (test code = 432) 11 % BASOPHILS RELATIVE PERCENT (BEAKER) (test code = 437) 1 % NEUTROPHILS ABSOLUTE COUNT (BEAKER) (test code = 670) 1.17 K/ L 1.56-6.13 L LYMPHOCYTES ABSOLUTE COUNT (BEAKER) (test code = 414) 1.51 K/ L 1.18-3.74 MONOCYTES ABSOLUTE COUNT (BEAKER) (test code = 415) 0.43 K/ L 0. 24-0.36 H EOSINOPHILS ABSOLUTE COUNT (BEAKER) (test code = 416) 0.40 K/ L 0.04-0.36 H BASOPHILS ABSOLUTE COUNT (BEAKER) (test code = 417) 0.02 K/ L 0. 01-0.08 IMMATURE GRANULOCYTES-RELATIVE PERCENT (BEAKER) (test code = 2801) 0 % 0-1 RESPIRATORY PANEL [id number] 21:01:00* Test Item Value Reference Range Interpretation Comments HUMAN METAPNEUMOVIRUS (BEAKER) (test code = 2683) Not detect ed Not detected, Equivocal RHINOVIRUS (BEAKER) (test code = 2684) Not detected Not detected, E quivocal INFLUENZA A (BEAKER) (test code = 2685) Not detected Not detected, Equivocal INFLUENZA A (NO SUBTYPE) (test code = 3606) Not detect ed, Equivocal INFLUENZA A SUBTYPE H1 (BEAKER) (test code = 2686) Not detected, Equivocal INFLUENZA A SUBTYPE H3 (BEAKER) (test code = 2687) Not detected, Equivocal INFLUENZA A SUBTYPE H1-2009 (BEAKER) (test code = 3198) Not detected, Equivocal INFLUENZA B (BEAKER) (test code = 2688) Not detected Not detected, Equivocal RESPIRATORY SYNCYTIAL VIRUS (BEAKER) (test code = 3199) Not detected Not detected, Equivocal PARAINFLUENZA VIRUS 1 (BEAKER) (test code = 2691) Not detect ed Not detected, Equivocal PARAINFLUENZA VIRUS 2 (BEAKER) (test code = 2692) Not detect ed Not detected, Equivocal PARAINFLUENZA VIRUS 3 (BEAKER) (test code = 2693) Not detect ed Not detected, Equivocal PARAINFLUENZA VIRUS 4 (BEAKER) (test code = 3200) Not detect ed Not detected, Equivocal ADENOVIRUS (BEAKER) (test code = 2694) Not detected Not detected, E quivocal CORONAVIRUS 229E (BEAKER) (test code = 3201) Not detected Not detected, Equivocal CORONAVIRUS HKU1 (BEAKER) (test code = 3202) Not detected Not detected, Equivocal CORONAVIRUS NL63 (BEAKER) (test code = 3203) Not detected Not detected, Equivocal CORONAVIRUS OC43 (BEAKER) (test code = 3204) Not detected Not detected, Equivocal BORDETELLA PERTUSSIS (BEAKER) (test code = 3205) Not detecte d Not detected, Equivocal CHLAMYDOPHILA PNEUMONIAE (BEAKER) (test code = 3206) Not det ected Not detected, Equivocal MYCOPLASMA PNEUMONIAE (BEAKER) (test code = 3207) Not detect ed Not detected, Equivocal Other viruses and bacteria not targeted by this PCR panel cannot be excluded; th erefore clinical correlation and follow up of serology, culture results, and oth er molecular studies is required. The results are not intended to be used as the sole means for clinical diagnosis or patient management decisions. This sample was tested at the [facility] using the [employer] Film[employer] rray Respiratory Panel. It is FDA cleared and has been verified and approved by the [facility] for clinical use on nasal swab specim ens. It is not FDA-cleared for use on bronchial wash/lavage samples. However, fo r this sample type, validation was performed and test characteristics were deter mined and approved, by [facility] for clinical use u nder the Clinical Laboratory Improvement Amendments (CLIA) of 1988 requirements. Therefore, FDA clearance is not required. This laboratory is CLIA-certified an d [employer] ([employer])-accredited to perform high complexity t esting.C. DIFFICILE GDH [id number] 20:51:00* Test Item Value Reference Range Interpretation Comments CDT TOXIN (test code = 0334234092) Negative Negative CDT GDH ANTIGEN (test code = 0414585123) Positive Negative A C. difficile present but toxin not detected. [...] of kit performance was done by the [facility] prior to cl inical use.URINALYSIS W/ REFLEX URINE [id number] 02:28:00* Test Item Value Reference Range Interpretation Comments COLOR (BEAKER) (test code = 470) Yellow CLARITY (BEAKER) (test code = 469) Hazy SPECIFIC GRAVITY UA (BEAKER) (test code = 468) 1.014 1.001-1 .035 PH UA (BEAKER) (test code = 467) 6.5 5.0-8.0 PROTEIN UA (BEAKER) (test code = 464) 100 mg/dL Negative A GLUCOSE UA (BEAKER) (test code = 365) Negative Negative KETONES UA (BEAKER) (test code = 371) Negative Negative BILIRUBIN UA (BEAKER) (test code = 462) Negative Negative BLOOD UA (BEAKER) (test code = 461) Moderate Negative A NITRITE UA (BEAKER) (test code = 465) Negative Negative LEUKOCYTE ESTERASE UA (BEAKER) (test code = 466) Negative Negat ivonne UROBILINOGEN UA (BEAKER) (test code = 463) 0.2 mg/dL 0.2-1.0 RBC UA (BEAKER) (test code = 519) > /HPF WBC UA (BEAKER) (test code = 520) 4 /HPF BACTERIA (BEAKER) (test code = 517) Moderate MUCUS (BEAKER) (test code = 1574) Few SQUAMOUS EPITHELIAL (BEAKER) (test code = 516) 5 /HPF AMORPHOUS CRYSTALS (BEAKER) (test code = 1584) Few SOURCE(BEAKER) (test code = 2795) SCREEN, [id number] 02:26:00* Test Item Value Reference Range Interpretation Comments TEST URINE (BEAKER) (test code = 583) Negative CT, [id number] 01:50:00FINAL REPORT EXAMINATION: CT SCAN OF THE [...] Pancreatic atrophy, again similar to previous. Signed: Ian Clements MDRepor t Verified Date/Time: 04/06/2018 01:50:07 Reading Location: [address] Reading Room 18 01:50 AM [id number] 00:42:00* Test Item Value Reference Range Interpretation Comments LIPASE (BEAKER) (test code = 749) 12 U/L 8-78 COMPREHENSIVE METABOLIC [id number] 00:42:00* Test Item Value Reference Range Interpretation Comments TOTAL PROTEIN (BEAKER) (test code = 770) 7.6 gm/dL 6.0-8.3 ALBUMIN (BEAKER) (test code = 1145) 4.1 g/dL 3.5-5.0 ALKALINE PHOSPHATASE (BEAKER) (test code = 346) 119 U/L 40-150 BILIRUBIN TOTAL (BEAKER) (test code = 377) 0.3 mg/dL 0.2-1.2 SODIUM (BEAKER) (test code = 381) 142 meq/L 136-145 POTASSIUM (BEAKER) (test code = 379) 3.6 meq/L 3.5-5.1 CHLORIDE (BEAKER) (test code = 382) 113 meq/L 98-107 H CO2 (BEAKER) (test code = 355) 20 meq/L 22-29 L BLOOD UREA NITROGEN (BEAKER) (test code = 354) 12 mg/dL 7-21 CREATININE (BEAKER) (test code = 358) 0.75 mg/dL 0.57-1.25 GLUCOSE RANDOM (BEAKER) (test code = 652) 118 mg/dL 70-105 H CALCIUM (BEAKER) (test code = 697) 9.4 mg/dL 8.4-10.2 AST (SGOT) (BEAKER) (test code = 353) 23 U/L 5-34 ALT (SGPT) (BEAKER) (test code = 347) 21 U/L 6-55 EGFR (BEAKER) (test code = 1092) 86 mL/min/1.73 sq m ESTIMATED GFR IS NOT ACCURATE CREATININE CLEARANCE IN PREDICTING GLOMERULAR FILTRATION RATE. ESTIMATED GFR IS NOT APPLICABLE FOR DIALYSIS PATIENTS. CBC W/PLT COUNT & AUTO [id number] 00:26:00* Test Item Value Reference Range Interpretation Comments WHITE BLOOD CELL COUNT (BEAKER) (test code = 775) 5.8 K/ L 3.5- 10.5 RED BLOOD CELL COUNT (BEAKER) (test code = 761) 3.35 M/ L 3.93-5 .22 L HEMOGLOBIN (BEAKER) (test code = 410) 8.8 GM/DL 11.2-15.7 L HEMATOCRIT (BEAKER) (test code = 411) 28.1 % 34.1-44.9 L MEAN CORPUSCULAR VOLUME (BEAKER) (test code = 753) 83.9 fL 79. 4-94.8 MEAN CORPUSCULAR HEMOGLOBIN (BEAKER) (test code = 751) 26.3 pg 25.6-32.2 MEAN CORPUSCULAR HEMOGLOBIN CONC (BEAKER) (test code = 752) 31.3 GM/DL 32.2-35.5 L RED CELL DISTRIBUTION WIDTH (BEAKER) (test code = 412) 16.6 % 11.7-14.4 H PLATELET COUNT (BEAKER) (test code = 756) 339 K/CU MM 150-450 MEAN PLATELET VOLUME (BEAKER) (test code = 754) 9.9 fL 9.4-12 .3 NUCLEATED RED BLOOD CELLS (BEAKER) (test code = 413) 0 /100 WBC 0 -0 NEUTROPHILS RELATIVE PERCENT (BEAKER) (test code = 429) 46 % LYMPHOCYTES RELATIVE PERCENT (BEAKER) (test code = 430) 36 % MONOCYTES RELATIVE PERCENT (BEAKER) (test code = 431) 14 % EOSINOPHILS RELATIVE PERCENT (BEAKER) (test code = 432) 3 % BASOPHILS RELATIVE PERCENT (BEAKER) (test code = 437) 0 % NEUTROPHILS ABSOLUTE COUNT (BEAKER) (test code = 670) 2.66 K/ L 1.56-6.13 LYMPHOCYTES ABSOLUTE COUNT (BEAKER) (test code = 414) 2.10 K/ L 1.18-3.74 MONOCYTES ABSOLUTE COUNT (BEAKER) (test code = 415) 0.82 K/ L 0. 24-0.36 H EOSINOPHILS ABSOLUTE COUNT (BEAKER) (test code = 416) 0.16 K/ L 0.04-0.36 BASOPHILS ABSOLUTE COUNT (BEAKER) (test code = 417) 0.02 K/ L 0. 01-0.08 IMMATURE GRANULOCYTES-RELATIVE PERCENT (BEAKER) (test code = 2801) 0 % 0-1 [id number] 08:56:00* Test Item Value Reference Range Interpretation Comments MAGNESIUM (BEAKER) (test code = 627) 2.0 mg/dL 1.6-2.6 BASIC METABOLIC [id number] 08:32:00* Test Item Value Reference Range Interpretation Comments SODIUM (BEAKER) (test code = 381) 142 meq/L 136-145 POTASSIUM (BEAKER) (test code = 379) 4.5 meq/L 3.5-5.1 CHLORIDE (BEAKER) (test code = 382) 106 meq/L 98-107 CO2 (BEAKER) (test code = 355) 27 meq/L 22-29 BLOOD UREA NITROGEN (BEAKER) (test code = 354) 7 mg/dL 7-21 CREATININE (BEAKER) (test code = 358) 0.67 mg/dL 0.57-1.25 GLUCOSE RANDOM (BEAKER) (test code = 652) 108 mg/dL 70-105 H CALCIUM (BEAKER) (test code = 697) 8.9 mg/dL 8.4-10.2 EGFR (BEAKER) (test code = 1092) 99 mL/min/1.73 sq m ESTIMATED GFR IS NOT ACCURATE CREATININE CLEARANCE IN PREDICTING GLOMERULAR FILTRATION RATE. ESTIMATED GFR IS NOT APPLICABLE FOR DIALYSIS PATIENTS. CBC W/PLT COUNT & AUTO [id number] 06:41:00* Test Item Value Reference Range Interpretation Comments WHITE BLOOD CELL COUNT (BEAKER) (test code = 775) 2.6 K/ L 3.5- 10.5 L RED BLOOD CELL COUNT (BEAKER) (test code = 761) 2.91 M/ L 3.93-5 .22 L HEMOGLOBIN (BEAKER) (test code = 410) 7.5 GM/DL 11.2-15.7 L HEMATOCRIT (BEAKER) (test code = 411) 24.7 % 34.1-44.9 L MEAN CORPUSCULAR VOLUME (BEAKER) (test code = 753) 84.9 fL 79. 4-94.8 MEAN CORPUSCULAR HEMOGLOBIN (BEAKER) (test code = 751) 25.8 pg 25.6-32.2 MEAN CORPUSCULAR HEMOGLOBIN CONC (BEAKER) (test code = 752) 30.4 GM/DL 32.2-35.5 L RED CELL DISTRIBUTION WIDTH (BEAKER) (test code = 412) 18.2 % 11.7-14.4 H PLATELET COUNT (BEAKER) (test code = 756) 366 K/CU MM 150-450 MEAN PLATELET VOLUME (BEAKER) (test code = 754) 10.2 fL 9.4-12 .3 NUCLEATED RED BLOOD CELLS (BEAKER) (test code = 413) 0 /100 WBC 0 -0 (CELLAVISION MANUAL DIFF)2018-03-27 06:41:00* Test Item Value Reference Range Interpretation Comments NEUTROPHILS - REL (CELLAVISION)(BEAKER) (test code = 2816) 36 % LYMPHOCYTES - REL (CELLAVISION)(BEAKER) (test code = 2817) 53 % MONOCYTES - REL (CELLAVISION)(BEAKER) (test code = 2818) 4 % EOSINOPHILS - REL (CELLAVISION)(BEAKER) (test code = 2819) 6 % BASOPHILS - REL (CELLAVISION)(BEAKER) (test code = 2820) 1 % NEUTROPHILS - ABS (CELLAVISION)(BEAKER) (test code = 2830) 0.94 K/ul 1.56-6.13 L LYMPHOCYTES - ABS (CELLAVISION)(BEAKER) (test code = 2831) 1.38 K/ul 1.18-3.74 MONOCYTES - ABS (CELLAVISION)(BEAKER) (test code = 2832) 0.10 K/uL 0.24-0.36 L EOSINOPHILS - ABS (CELLAVISION)(BEAKER) (test code = 2834) 0.16 K/uL 0.04-0.36 BASOPHILS - ABS (CELLAVISION)(BEAKER) (test code = 2835) 0.03 K/uL 0.01-0.08 TOTAL COUNTED (BEAKER) (test code = 1351) 100 WBC MORPHOLOGY (BEAKER) (test code = 487) Normal PLT MORPHOLOGY (BEAKER) (test code = 486) Normal ANISOCYTOSIS (BEAKER) (test code = 961) 1+ few MICROCYTES (BEAKER) (test code = 965) 1+ few POIKILOCYTES (BEAKER) (test code = 966) 2+ moderate OVALOCYTES (BEAKER) (test code = 477) 1+ few TEAR DROP CELLS (BEAKER) (test code = 481) 1+ few ARTIFACT (CELLAVISION)(BEAKER) (test code = 3432) Present PLATELET CONCENTRATION (CELLAVISION)(BEAKER) (test code = 3438) Theresa quate Received comment: User comments: Slide comments: OCCULT BLOOD, [id number] 03:25:00* Test Item Value Reference Range Interpretation Comments FECAL OCCULT BLOOD (BEAKER) (test code = 618) Positive Negative A CBC W/PLT COUNT & AUTO [id number] 06:08:00* Test Item Value Reference Range Interpretation Comments WHITE BLOOD CELL COUNT (BEAKER) (test code = 775) 3.3 K/ L 3.5- 10.5 L RED BLOOD CELL COUNT (BEAKER) (test code = 761) 3.20 M/ L 3.93-5 .22 L HEMOGLOBIN (BEAKER) (test code = 410) 8.3 GM/DL 11.2-15.7 L HEMATOCRIT (BEAKER) (test code = 411) 27.5 % 34.1-44.9 L MEAN CORPUSCULAR VOLUME (BEAKER) (test code = 753) 85.9 fL 79. 4-94.8 MEAN CORPUSCULAR HEMOGLOBIN (BEAKER) (test code = 751) 25.9 pg 25.6-32.2 MEAN CORPUSCULAR HEMOGLOBIN CONC (BEAKER) (test code = 752) 30.2 GM/DL 32.2-35.5 L RED CELL DISTRIBUTION WIDTH (BEAKER) (test code = 412) 18.3 % 11.7-14.4 H PLATELET COUNT (BEAKER) (test code = 756) 380 K/CU MM 150-450 MEAN PLATELET VOLUME (BEAKER) (test code = 754) 10.2 fL 9.4-12 .3 NUCLEATED RED BLOOD CELLS (BEAKER) (test code = 413) 0 /100 WBC 0 -0 NEUTROPHILS RELATIVE PERCENT (BEAKER) (test code = 429) 40 % LYMPHOCYTES RELATIVE PERCENT (BEAKER) (test code = 430) 41 % MONOCYTES RELATIVE PERCENT (BEAKER) (test code = 431) 13 % EOSINOPHILS RELATIVE PERCENT (BEAKER) (test code = 432) 5 % BASOPHILS RELATIVE PERCENT (BEAKER) (test code = 437) 0 % NEUTROPHILS ABSOLUTE COUNT (BEAKER) (test code = 670) 1.33 K/ L 1.56-6.13 L LYMPHOCYTES ABSOLUTE COUNT (BEAKER) (test code = 414) 1.38 K/ L 1.18-3.74 MONOCYTES ABSOLUTE COUNT (BEAKER) (test code = 415) 0.42 K/ L 0. 24-0.36 H EOSINOPHILS ABSOLUTE COUNT (BEAKER) (test code = 416) 0.18 K/ L 0.04-0.36 BASOPHILS ABSOLUTE COUNT (BEAKER) (test code = 417) 0.01 K/ L 0. 01-0.08 IMMATURE GRANULOCYTES-RELATIVE PERCENT (BEAKER) (test code = 2801) 0 % 0-1 BASIC METABOLIC [id number] 12:40:00* Test Item Value Reference Range Interpretation Comments SODIUM (BEAKER) (test code = 381) 138 meq/L 136-145 POTASSIUM (BEAKER) (test code = 379) 4.5 meq/L 3.5-5.1 CHLORIDE (BEAKER) (test code = 382) 105 meq/L 98-107 CO2 (BEAKER) (test code = 355) 24 meq/L 22-29 BLOOD UREA NITROGEN (BEAKER) (test code = 354) 11 mg/dL 7-21 CREATININE (BEAKER) (test code = 358) 0.66 mg/dL 0.57-1.25 GLUCOSE RANDOM (BEAKER) (test code = 652) 171 mg/dL 70-105 H CALCIUM (BEAKER) (test code = 697) 9.3 mg/dL 8.4-10.2 EGFR (BEAKER) (test code = 1092) 100 mL/min/1.73 sq m ESTIMATED GFR IS NOT ACCURATE CREATININE CLEARANCE IN PREDICTING GLOMERULAR FILTRATION RATE. ESTIMATED GFR IS NOT APPLICABLE FOR DIALYSIS PATIENTS. HEMOGLOBIN AND [id number] 12:07:00* Test Item Value Reference Range Interpretation Comments HEMOGLOBIN (BEAKER) (test code = 410) 8.9 GM/DL 11.2-15.7 L HEMATOCRIT (BEAKER) (test code = 411) 29.0 % 34.1-44.9 L CBC W/PLT COUNT & AUTO [id number] 07:10:00* Test Item Value Reference Range Interpretation Comments WHITE BLOOD CELL COUNT (BEAKER) (test code = 775) 5.1 K/ L 3.5- 10.5 RED BLOOD CELL COUNT (BEAKER) (test code = 761) 3.55 M/ L 3.93-5 .22 L HEMOGLOBIN (BEAKER) (test code = 410) 9.1 GM/DL 11.2-15.7 L HEMATOCRIT (BEAKER) (test code = 411) 29.9 % 34.1-44.9 L MEAN CORPUSCULAR VOLUME (BEAKER) (test code = 753) 84.2 fL 79. 4-94.8 MEAN CORPUSCULAR HEMOGLOBIN (BEAKER) (test code = 751) 25.6 pg 25.6-32.2 MEAN CORPUSCULAR HEMOGLOBIN CONC (BEAKER) (test code = 752) 30.4 GM/DL 32.2-35.5 L RED CELL DISTRIBUTION WIDTH (BEAKER) (test code = 412) 18.6 % 11.7-14.4 H PLATELET COUNT (BEAKER) (test code = 756) 411 K/CU MM 150-450 MEAN PLATELET VOLUME (BEAKER) (test code = 754) 9.7 fL 9.4-12 .3 NUCLEATED RED BLOOD CELLS (BEAKER) (test code = 413) 0 /100 WBC 0 -0 NEUTROPHILS RELATIVE PERCENT (BEAKER) (test code = 429) 36 % LYMPHOCYTES RELATIVE PERCENT (BEAKER) (test code = 430) 46 % MONOCYTES RELATIVE PERCENT (BEAKER) (test code = 431) 11 % EOSINOPHILS RELATIVE PERCENT (BEAKER) (test code = 432) 7 % BASOPHILS RELATIVE PERCENT (BEAKER) (test code = 437) 0 % NEUTROPHILS ABSOLUTE COUNT (BEAKER) (test code = 670) 1.82 K/ L 1.56-6.13 LYMPHOCYTES ABSOLUTE COUNT (BEAKER) (test code = 414) 2.34 K/ L 1.18-3.74 MONOCYTES ABSOLUTE COUNT (BEAKER) (test code = 415) 0.56 K/ L 0. 24-0.36 H EOSINOPHILS ABSOLUTE COUNT (BEAKER) (test code = 416) 0.37 K/ L 0.04-0.36 H BASOPHILS ABSOLUTE COUNT (BEAKER) (test code = 417) 0.02 K/ L 0. 01-0.08 IMMATURE GRANULOCYTES-RELATIVE PERCENT (BEAKER) (test code = 2801) 0 % 0-1 HEMOGLOBIN AND [id number] 21:52:00* Test Item Value Reference Range Interpretation Comments HEMOGLOBIN (BEAKER) (test code = 410) 9.6 GM/DL 11.2-15.7 L HEMATOCRIT (BEAKER) (test code = 411) 31.2 % 34.1-44.9 L HEMOGLOBIN AND [id number] 11:03:00* Test Item Value Reference Range Interpretation Comments HEMOGLOBIN (BEAKER) (test code = 410) 9.5 GM/DL 11.2-15.7 L HEMATOCRIT (BEAKER) (test code = 411) 31.2 % 34.1-44.9 L BASIC METABOLIC [id number] 04:52:00* Test Item Value Reference Range Interpretation Comments SODIUM (BEAKER) (test code = 381) 136 meq/L 136-145 POTASSIUM (BEAKER) (test code = 379) 4.1 meq/L 3.5-5.1 CHLORIDE (BEAKER) (test code = 382) 107 meq/L 98-107 CO2 (BEAKER) (test code = 355) 24 meq/L 22-29 BLOOD UREA NITROGEN (BEAKER) (test code = 354) 10 mg/dL 7-21 CREATININE (BEAKER) (test code = 358) 0.62 mg/dL 0.57-1.25 GLUCOSE RANDOM (BEAKER) (test code = 652) 134 mg/dL 70-105 H CALCIUM (BEAKER) (test code = 697) 9.0 mg/dL 8.4-10.2 EGFR (BEAKER) (test code = 1092) 108 mL/min/1.73 sq m ESTIMATED GFR IS NOT ACCURATE CREATININE CLEARANCE IN PREDICTING GLOMERULAR FILTRATION RATE. ESTIMATED GFR IS NOT APPLICABLE FOR DIALYSIS PATIENTS. HEMOGLOBIN AND [id number] 04:24:00* Test Item Value Reference Range Interpretation Comments HEMOGLOBIN (BEAKER) (test code = 410) 9.1 GM/DL 11.2-15.7 L HEMATOCRIT (BEAKER) (test code = 411) 29.9 % 34.1-44.9 L CBC W/PLT COUNT & AUTO [id number] 04:24:00* Test Item Value Reference Range Interpretation Comments WHITE BLOOD CELL COUNT (BEAKER) (test code = 775) 6.0 K/ L 3.5- 10.5 RED BLOOD CELL COUNT (BEAKER) (test code = 761) 3.54 M/ L 3.93-5 .22 L HEMOGLOBIN (BEAKER) (test code = 410) 9.1 GM/DL 11.2-15.7 L HEMATOCRIT (BEAKER) (test code = 411) 29.9 % 34.1-44.9 L MEAN CORPUSCULAR VOLUME (BEAKER) (test code = 753) 84.5 fL 79. 4-94.8 MEAN CORPUSCULAR HEMOGLOBIN (BEAKER) (test code = 751) 25.7 pg 25.6-32.2 MEAN CORPUSCULAR HEMOGLOBIN CONC (BEAKER) (test code = 752) 30.4 GM/DL 32.2-35.5 L RED CELL DISTRIBUTION WIDTH (BEAKER) (test code = 412) 18.6 % 11.7-14.4 H PLATELET COUNT (BEAKER) (test code = 756) 403 K/CU MM 150-450 MEAN PLATELET VOLUME (BEAKER) (test code = 754) 9.6 fL 9.4-12 .3 NUCLEATED RED BLOOD CELLS (BEAKER) (test code = 413) 0 /100 WBC 0 -0 NEUTROPHILS RELATIVE PERCENT (BEAKER) (test code = 429) 48 % LYMPHOCYTES RELATIVE PERCENT (BEAKER) (test code = 430) 36 % MONOCYTES RELATIVE PERCENT (BEAKER) (test code = 431) 10 % EOSINOPHILS RELATIVE PERCENT (BEAKER) (test code = 432) 5 % BASOPHILS RELATIVE PERCENT (BEAKER) (test code = 437) 0 % NEUTROPHILS ABSOLUTE COUNT (BEAKER) (test code = 670) 2.91 K/ L 1.56-6.13 LYMPHOCYTES ABSOLUTE COUNT (BEAKER) (test code = 414) 2.18 K/ L 1.18-3.74 MONOCYTES ABSOLUTE COUNT (BEAKER) (test code = 415) 0.60 K/ L 0. 24-0.36 H EOSINOPHILS ABSOLUTE COUNT (BEAKER) (test code = 416) 0.29 K/ L 0.04-0.36 BASOPHILS ABSOLUTE COUNT (BEAKER) (test code = 417) 0.01 K/ L 0. 01-0.08 IMMATURE GRANULOCYTES-RELATIVE PERCENT (BEAKER) (test code = 2801) 1 % 0-1 BASIC METABOLIC [id number] 07:34:00* Test Item Value Reference Range Interpretation Comments SODIUM (BEAKER) (test code = 381) 137 meq/L 136-145 POTASSIUM (BEAKER) (test code = 379) 3.8 meq/L 3.5-5.1 CHLORIDE (BEAKER) (test code = 382) 108 meq/L 98-107 H CO2 (BEAKER) (test code = 355) 22 meq/L 22-29 BLOOD UREA NITROGEN (BEAKER) (test code = 354) 7 mg/dL 7-21 CREATININE (BEAKER) (test code = 358) 0.61 mg/dL 0.57-1.25 GLUCOSE RANDOM (BEAKER) (test code = 652) 104 mg/dL 70-105 CALCIUM (BEAKER) (test code = 697) 8.9 mg/dL 8.4-10.2 EGFR (BEAKER) (test code = 1092) 110 mL/min/1.73 sq m ESTIMATED GFR IS NOT ACCURATE CREATININE CLEARANCE IN PREDICTING GLOMERULAR FILTRATION RATE. ESTIMATED GFR IS NOT APPLICABLE FOR DIALYSIS PATIENTS. CBC W/PLT COUNT & AUTO [id number] 06:25:00* Test Item Value Reference Range Interpretation Comments WHITE BLOOD CELL COUNT (BEAKER) (test code = 775) 6.2 K/ L 3.5- 10.5 RED BLOOD CELL COUNT (BEAKER) (test code = 761) 3.79 M/ L 3.93-5 .22 L HEMOGLOBIN (BEAKER) (test code = 410) 9.9 GM/DL 11.2-15.7 L HEMATOCRIT (BEAKER) (test code = 411) 31.5 % 34.1-44.9 L MEAN CORPUSCULAR VOLUME (BEAKER) (test code = 753) 83.1 fL 79. 4-94.8 MEAN CORPUSCULAR HEMOGLOBIN (BEAKER) (test code = 751) 26.1 pg 25.6-32.2 MEAN CORPUSCULAR HEMOGLOBIN CONC (BEAKER) (test code = 752) 31.4 GM/DL 32.2-35.5 L RED CELL DISTRIBUTION WIDTH (BEAKER) (test code = 412) 18.6 % 11.7-14.4 H PLATELET COUNT (BEAKER) (test code = 756) 439 K/CU MM 150-450 MEAN PLATELET VOLUME (BEAKER) (test code = 754) 10.1 fL 9.4-12 .3 NUCLEATED RED BLOOD CELLS (BEAKER) (test code = 413) 0 /100 WBC 0 -0 NEUTROPHILS RELATIVE PERCENT (BEAKER) (test code = 429) 58 % LYMPHOCYTES RELATIVE PERCENT (BEAKER) (test code = 430) 28 % MONOCYTES RELATIVE PERCENT (BEAKER) (test code = 431) 10 % EOSINOPHILS RELATIVE PERCENT (BEAKER) (test code = 432) 5 % BASOPHILS RELATIVE PERCENT (BEAKER) (test code = 437) 0 % NEUTROPHILS ABSOLUTE COUNT (BEAKER) (test code = 670) 3.57 K/ L 1.56-6.13 LYMPHOCYTES ABSOLUTE COUNT (BEAKER) (test code = 414) 1.70 K/ L 1.18-3.74 MONOCYTES ABSOLUTE COUNT (BEAKER) (test code = 415) 0.59 K/ L 0. 24-0.36 H EOSINOPHILS ABSOLUTE COUNT (BEAKER) (test code = 416) 0.28 K/ L 0.04-0.36 BASOPHILS ABSOLUTE COUNT (BEAKER) (test code = 417) 0.01 K/ L 0. 01-0.08 IMMATURE GRANULOCYTES-RELATIVE PERCENT (BEAKER) (test code = 2801) 1 % 0-1 HEMOGLOBIN AND [id number] 20:42:00* Test Item Value Reference Range Interpretation Comments HEMOGLOBIN (BEAKER) (test code = 410) 10.2 GM/DL 11.2-15.7 L HEMATOCRIT (BEAKER) (test code = 411) 32.9 % 34.1-44.9 L HEMOGLOBIN AND [id number] 12:10:00* Test Item Value Reference Range Interpretation Comments HEMOGLOBIN (BEAKER) (test code = 410) 8.8 GM/DL 11.2-15.7 L HEMATOCRIT (BEAKER) (test code = 411) 29.1 % 34.1-44.9 L BLOOD [id number] 11:00:00* Test Item Value Reference Range Interpretation Comments CULTURE (BEAKER) (test code = 1095) No growth in 5 days BLOOD [id number] 00:00:00* Test Item Value Reference Range Interpretation Comments CULTURE (BEAKER) (test code = 1095) No growth in 5 days HEMOGLOBIN AND [id number] 21:16:00* Test Item Value Reference Range Interpretation Comments HEMOGLOBIN (BEAKER) (test code = 410) 9.3 GM/DL 11.2-15.7 L HEMATOCRIT (BEAKER) (test code = 411) 29.7 % 34.1-44.9 L HEMOGLOBIN AND [id number] 12:30:00* Test Item Value Reference Range Interpretation Comments HEMOGLOBIN (BEAKER) (test code = 410) 8.8 GM/DL 11.2-15.7 L HEMATOCRIT (BEAKER) (test code = 411) 28.8 % 34.1-44.9 L HEMOGLOBIN AND [id number] 06:51:00* Test Item Value Reference Range Interpretation Comments HEMOGLOBIN (BEAKER) (test code = 410) 8.8 GM/DL 11.2-15.7 L HEMATOCRIT (BEAKER) (test code = 411) 28.8 % 34.1-44.9 L HEMOGLOBIN AND [id number] 19:30:00* Test Item Value Reference Range Interpretation Comments HEMOGLOBIN (BEAKER) (test code = 410) 8.6 GM/DL 11.2-15.7 L HEMATOCRIT (BEAKER) (test code = 411) 27.8 % 34.1-44.9 L HEMOGLOBIN AND [id number] 00:26:00* Test Item Value Reference Range Interpretation Comments HEMOGLOBIN (BEAKER) (test code = 410) 7.9 GM/DL 11.2-15.7 L HEMATOCRIT (BEAKER) (test code = 411) 25.3 % 34.1-44.9 L VANCOMYCIN LEVEL, [id number] 12:57:00* Test Item Value Reference Range Interpretation Comments VANCOMYCIN TROUGH (BEAKER) (test code = 522) 9.9 ug/mL 10.0-20.0 L HEMOGLOBIN AND [id number] 12:40:00* Test Item Value Reference Range Interpretation Comments HEMOGLOBIN (BEAKER) (test code = 410) 8.0 GM/DL 11.2-15.7 L HEMATOCRIT (BEAKER) (test code = 411) 26.1 % 34.1-44.9 L HEMOGLOBIN AND [id number] 22:53:00* Test Item Value Reference Range Interpretation Comments HEMOGLOBIN (BEAKER) (test code = 410) 7.4 GM/DL 11.2-15.7 L HEMATOCRIT (BEAKER) (test code = 411) 24.0 % 34.1-44.9 L HEMOGLOBIN AND [id number] 12:29:00* Test Item Value Reference Range Interpretation Comments HEMOGLOBIN (BEAKER) (test code = 410) 7.7 GM/DL 11.2-15.7 L HEMATOCRIT (BEAKER) (test code = 411) 24.7 % 34.1-44.9 L CBC W/PLT COUNT & AUTO [id number] 11:11:00* Test Item Value Reference Range Interpretation Comments WHITE BLOOD CELL COUNT (BEAKER) (test code = 775) 6.4 K/ L 3.5- 10.5 RED BLOOD CELL COUNT (BEAKER) (test code = 761) 2.95 M/ L 3.93-5 .22 L HEMOGLOBIN (BEAKER) (test code = 410) 7.7 GM/DL 11.2-15.7 L HEMATOCRIT (BEAKER) (test code = 411) 24.5 % 34.1-44.9 L MEAN CORPUSCULAR VOLUME (BEAKER) (test code = 753) 83.1 fL 79. 4-94.8 MEAN CORPUSCULAR HEMOGLOBIN (BEAKER) (test code = 751) 26.1 pg 25.6-32.2 MEAN CORPUSCULAR HEMOGLOBIN CONC (BEAKER) (test code = 752) 31.4 GM/DL 32.2-35.5 L RED CELL DISTRIBUTION WIDTH (BEAKER) (test code = 412) 17.9 % 11.7-14.4 H PLATELET COUNT (BEAKER) (test code = 756) 231 K/CU MM 150-450 MEAN PLATELET VOLUME (BEAKER) (test code = 754) 10.6 fL 9.4-12 .3 NUCLEATED RED BLOOD CELLS (BEAKER) (test code = 413) 0 /100 WBC 0 -0 (CELLAVISION MANUAL DIFF)2018-03-18 11:11:00* Test Item Value Reference Range Interpretation Comments NEUTROPHILS - REL (CELLAVISION)(BEAKER) (test code = 2816) 54 % LYMPHOCYTES - REL (CELLAVISION)(BEAKER) (test code = 2817) 22 % MONOCYTES - REL (CELLAVISION)(BEAKER) (test code = 2818) 13 % EOSINOPHILS - REL (CELLAVISION)(BEAKER) (test code = 2819) 5 % BASOPHILS - REL (CELLAVISION)(BEAKER) (test code = 2820) 2 % BANDS - REL (CELLAVISION)(BEAKER) (test code = 2826) 3 % 0 -10 ATYPICAL LYMPHOCYTES - REL (CELLAVISION)(BEAKER) (test code = 2829) 1 % 0-0 H NEUTROPHILS - ABS (CELLAVISION)(BEAKER) (test code = 2830) 3.46 K/ul 1.56-6.13 LYMPHOCYTES - ABS (CELLAVISION)(BEAKER) (test code = 2831) 1.41 K/ul 1.18-3.74 MONOCYTES - ABS (CELLAVISION)(BEAKER) (test code = 2832) 0.83 K/uL 0.24-0.36 H EOSINOPHILS - ABS (CELLAVISION)(BEAKER) (test code = 2834) 0.32 K/uL 0.04-0.36 BASOPHILS - ABS (CELLAVISION)(BEAKER) (test code = 2835) 0.13 K/uL 0.01-0.08 H BANDS - ABS (CELLAVISION)(BEAKER) (test code = 2840) 0.19 K/uL 0 .00-0.80 ATYPICAL LYMPHOCYTES - ABS (CELLAVISION)(BEAKER) (test code = 2858) 0.06 K/uL 0.00-0.00 H TOTAL COUNTED (BEAKER) (test code = 1351) 100 WBC MORPHOLOGY (BEAKER) (test code = 487) Normal PLT MORPHOLOGY (BEAKER) (test code = 486) Normal ANISOCYTOSIS (BEAKER) (test code = 961) 2+ moderate MICROCYTES (BEAKER) (test code = 965) 2+ moderate POIKILOCYTES (BEAKER) (test code = 966) 2+ moderate OVALOCYTES (BEAKER) (test code = 477) 1+ few TEAR DROP CELLS (BEAKER) (test code = 481) 1+ few ARTIFACT (CELLAVISION)(BEAKER) (test code = 3432) Present PLATELET CONCENTRATION (CELLAVISION)(BEAKER) (test code = 3438) Theresa quate Received comment: User comments: Slide comments: HEPATIC FUNCTION PANEL 2018-03-18 06:10:00* Test Item Value Reference Range Interpretation Comments TOTAL PROTEIN (BEAKER) (test code = 770) 6.3 gm/dL 6.0-8.3 ALBUMIN (BEAKER) (test code = 1145) 3.5 g/dL 3.5-5.0 BILIRUBIN TOTAL (BEAKER) (test code = 377) 0.3 mg/dL 0.2-1.2 BILIRUBIN DIRECT (BEAKER) (test code = 706) 0.2 mg/dL 0.1-0.5 ALKALINE PHOSPHATASE (BEAKER) (test code = 346) 119 U/L 40-150 AST (SGOT) (BEAKER) (test code = 353) 43 U/L 5-34 H ALT (SGPT) (BEAKER) (test code = 347) 21 U/L 6-55 BASIC METABOLIC [id number] 06:10:00* Test Item Value Reference Range Interpretation Comments SODIUM (BEAKER) (test code = 381) 138 meq/L 136-145 POTASSIUM (BEAKER) (test code = 379) 3.3 meq/L 3.5-5.1 L CHLORIDE (BEAKER) (test code = 382) 108 meq/L 98-107 H CO2 (BEAKER) (test code = 355) 22 meq/L 22-29 BLOOD UREA NITROGEN (BEAKER) (test code = 354) 5 mg/dL 7-21 L CREATININE (BEAKER) (test code = 358) 0.74 mg/dL 0.57-1.25 GLUCOSE RANDOM (BEAKER) (test code = 652) 139 mg/dL 70-105 H CALCIUM (BEAKER) (test code = 697) 8.7 mg/dL 8.4-10.2 EGFR (BEAKER) (test code = 1092) 88 mL/min/1.73 sq m ESTIMATED GFR IS NOT ACCURATE CREATININE CLEARANCE IN PREDICTING GLOMERULAR FILTRATION RATE. ESTIMATED GFR IS NOT APPLICABLE FOR DIALYSIS PATIENTS. HEMOGLOBIN AND [id number] 21:58:00* Test Item Value Reference Range Interpretation Comments HEMOGLOBIN (BEAKER) (test code = 410) 8.0 GM/DL 11.2-15.7 L HEMATOCRIT (BEAKER) (test code = 411) 24.9 % 34.1-44.9 L HEMOGLOBIN AND [id number] 17:39:00* Test Item Value Reference Range Interpretation Comments HEMOGLOBIN (BEAKER) (test code = 410) 7.6 GM/DL 11.2-15.7 L HEMATOCRIT (BEAKER) (test code = 411) 24.7 % 34.1-44.9 L HEMOGLOBIN AND [id number] 02:54:00* Test Item Value Reference Range Interpretation Comments HEMOGLOBIN (BEAKER) (test code = 410) 8.1 GM/DL 11.2-15.7 L HEMATOCRIT (BEAKER) (test code = 411) 25.5 % 34.1-44.9 L BLOOD [id number] 18:00:00* Test Item Value Reference Range Interpretation Comments CULTURE (BEAKER) (test code = 1095) No growth in 5 days BLOOD [id number] 18:00:00* Test Item Value Reference Range Interpretation Comments CULTURE (BEAKER) (test code = 1095) No growth in 5 days STOOL CULTURE + SHIGA [id number] 17:42:00* Test Item Value Reference Range Interpretation Comments CULTURE (BEAKER) (test code = 1095) No Salmonella, Keila gella or Campylobacter isolated C. DIFFICILE GDH [id number] 17:23:00* Test Item Value Reference Range Interpretation Comments CDT TOXIN (test code = 9989829737) Negative Negative CDT GDH ANTIGEN (test code = 5156779761) Positive Negative A C. difficile present but toxin not detected. [...] of kit performance was done by the [facility] prior to cl inical use.VANCOMYCIN LEVEL, [id number] 12:40:00* Test Item Value Reference Range Interpretation Comments VANCOMYCIN TROUGH (BEAKER) (test code = 522) 9.0 ug/mL 10.0-20.0 L HEMOGLOBIN AND [id number] 12:23:00* Test Item Value Reference Range Interpretation Comments HEMOGLOBIN (BEAKER) (test code = 410) 6.9 GM/DL 11.2-15.7 L HEMATOCRIT (BEAKER) (test code = 411) 22.2 % 34.1-44.9 L CBC W/PLT COUNT & AUTO [id number] 07:43:00* Test Item Value Reference Range Interpretation Comments WHITE BLOOD CELL COUNT (BEAKER) (test code = 775) 10.4 K/ L 3.5- 10.5 RED BLOOD CELL COUNT (BEAKER) (test code = 761) 2.89 M/ L 3.93-5 .22 L HEMOGLOBIN (BEAKER) (test code = 410) 7.4 GM/DL 11.2-15.7 L HEMATOCRIT (BEAKER) (test code = 411) 23.9 % 34.1-44.9 L MEAN CORPUSCULAR VOLUME (BEAKER) (test code = 753) 82.7 fL 79. 4-94.8 MEAN CORPUSCULAR HEMOGLOBIN (BEAKER) (test code = 751) 25.6 pg 25.6-32.2 MEAN CORPUSCULAR HEMOGLOBIN CONC (BEAKER) (test code = 752) 31.0 GM/DL 32.2-35.5 L RED CELL DISTRIBUTION WIDTH (BEAKER) (test code = 412) 18.4 % 11.7-14.4 H PLATELET COUNT (BEAKER) (test code = 756) 251 K/CU MM 150-450 MEAN PLATELET VOLUME (BEAKER) (test code = 754) 10.9 fL 9.4-12 .3 NUCLEATED RED BLOOD CELLS (BEAKER) (test code = 413) 0 /100 WBC 0 -0 (CELLAVISION MANUAL DIFF)2018-03-16 07:43:00* Test Item Value Reference Range Interpretation Comments NEUTROPHILS - REL (CELLAVISION)(BEAKER) (test code = 2816) 56 % LYMPHOCYTES - REL (CELLAVISION)(BEAKER) (test code = 2817) 25 % MONOCYTES - REL (CELLAVISION)(BEAKER) (test code = 2818) 7 % BASOPHILS - REL (CELLAVISION)(BEAKER) (test code = 2820) 1 % BANDS - REL (CELLAVISION)(BEAKER) (test code = 2826) 11 % 0 -10 H NEUTROPHILS - ABS (CELLAVISION)(BEAKER) (test code = 2830) 5.82 K/ul 1.56-6.13 LYMPHOCYTES - ABS (CELLAVISION)(BEAKER) (test code = 2831) 2.60 K/ul 1.18-3.74 MONOCYTES - ABS (CELLAVISION)(BEAKER) (test code = 2832) 0.73 K/uL 0.24-0.36 H BASOPHILS - ABS (CELLAVISION)(BEAKER) (test code = 2835) 0.10 K/uL 0.01-0.08 H BANDS - ABS (CELLAVISION)(BEAKER) (test code = 2840) 1.14 K/uL 0 .00-0.80 H TOTAL COUNTED (BEAKER) (test code = 1351) 100 WBC MORPHOLOGY (BEAKER) (test code = 487) Normal PLT MORPHOLOGY (BEAKER) (test code = 486) Normal POLYCHROMATOPHILLIC RBCS(BEAKER) (test code = 478) 2+ moderate ANISOCYTOSIS (BEAKER) (test code = 961) 2+ moderate POIKILOCYTES (BEAKER) (test code = 966) 2+ moderate OVALOCYTES (BEAKER) (test code = 477) 1+ few TEAR DROP CELLS (BEAKER) (test code = 481) 1+ few JACKSON CELLS (BEAKER) (test code = 474) 2+ moderate ARTIFACT (CELLAVISION)(BEAKER) (test code = 3432) Present PLATELET CONCENTRATION (CELLAVISION)(BEAKER) (test code = 3438) Thereas quate Received comment: User comments: Slide comments: BASIC METABOLIC [id number] 07:01:00* Test Item Value Reference Range Interpretation Comments SODIUM (BEAKER) (test code = 381) 140 meq/L 136-145 POTASSIUM (BEAKER) (test code = 379) 3.5 meq/L 3.5-5.1 CHLORIDE (BEAKER) (test code = 382) 109 meq/L 98-107 H CO2 (BEAKER) (test code = 355) 23 meq/L 22-29 BLOOD UREA NITROGEN (BEAKER) (test code = 354) 8 mg/dL 7-21 CREATININE (BEAKER) (test code = 358) 0.77 mg/dL 0.57-1.25 GLUCOSE RANDOM (BEAKER) (test code = 652) 110 mg/dL 70-105 H CALCIUM (BEAKER) (test code = 697) 9.1 mg/dL 8.4-10.2 EGFR (BEAKER) (test code = 1092) 84 mL/min/1.73 sq m ESTIMATED GFR IS NOT ACCURATE CREATININE CLEARANCE IN PREDICTING GLOMERULAR FILTRATION RATE. ESTIMATED GFR IS NOT APPLICABLE FOR DIALYSIS PATIENTS. HEMOGLOBIN AND [id number] 22:58:00* Test Item Value Reference Range Interpretation Comments HEMOGLOBIN (BEAKER) (test code = 410) 7.3 GM/DL 11.2-15.7 L HEMATOCRIT (BEAKER) (test code = 411) 23.8 % 34.1-44.9 L SHIGA TOXIN [id number] 17:24:00* Test Item Value Reference Range Interpretation Comments SHIGA TOXIN 1 (BEAKER) (test code = 2177) Not detected Not detected SHIGA TOXIN 2 (BEAKER) (test code = 2179) Not detected Not detected STOOL PATH [id number] 12:09:00* Test Item Value Reference Range Interpretation Comments PATHOGEN EXAM CHARGED (BEAKER) (test code = 2381) Done HEMOGLOBIN AND [id number] 10:48:00* Test Item Value Reference Range Interpretation Comments HEMOGLOBIN (BEAKER) (test code = 410) 7.6 GM/DL 11.2-15.7 L HEMATOCRIT (BEAKER) (test code = 411) 24.7 % 34.1-44.9 L CBC W/PLT COUNT & AUTO [id number] 10:02:00* Test Item Value Reference Range Interpretation Comments WHITE BLOOD CELL COUNT (BEAKER) (test code = 775) 11.5 K/ L 3.5- 10.5 H RED BLOOD CELL COUNT (BEAKER) (test code = 761) 2.91 M/ L 3.93-5 .22 L HEMOGLOBIN (BEAKER) (test code = 410) 7.3 GM/DL 11.2-15.7 L HEMATOCRIT (BEAKER) (test code = 411) 23.7 % 34.1-44.9 L MEAN CORPUSCULAR VOLUME (BEAKER) (test code = 753) 81.4 fL 79. 4-94.8 MEAN CORPUSCULAR HEMOGLOBIN (BEAKER) (test code = 751) 25.1 pg 25.6-32.2 L MEAN CORPUSCULAR HEMOGLOBIN CONC (BEAKER) (test code = 752) 30.8 GM/DL 32.2-35.5 L RED CELL DISTRIBUTION WIDTH (BEAKER) (test code = 412) 18.1 % 11.7-14.4 H PLATELET COUNT (BEAKER) (test code = 756) 206 K/CU MM 150-450 MEAN PLATELET VOLUME (BEAKER) (test code = 754) 10.1 fL 9.4-12 .3 NUCLEATED RED BLOOD CELLS (BEAKER) (test code = 413) 0 /100 WBC 0 -0 (CELLAVISION MANUAL DIFF)2018-03-15 10:02:00* Test Item Value Reference Range Interpretation Comments NEUTROPHILS - REL (CELLAVISION)(BEAKER) (test code = 2816) 66 % LYMPHOCYTES - REL (CELLAVISION)(BEAKER) (test code = 2817) 13 % MONOCYTES - REL (CELLAVISION)(BEAKER) (test code = 2818) 5 % EOSINOPHILS - REL (CELLAVISION)(BEAKER) (test code = 2819) 1 % BANDS - REL (CELLAVISION)(BEAKER) (test code = 2826) 15 % 0 -10 H NEUTROPHILS - ABS (CELLAVISION)(BEAKER) (test code = 2830) 7.59 K/ul 1.56-6.13 H LYMPHOCYTES - ABS (CELLAVISION)(BEAKER) (test code = 2831) 1.50 K/ul 1.18-3.74 MONOCYTES - ABS (CELLAVISION)(BEAKER) (test code = 2832) 0.58 K/uL 0.24-0.36 H EOSINOPHILS - ABS (CELLAVISION)(BEAKER) (test code = 2834) 0.12 K/uL 0.04-0.36 BANDS - ABS (CELLAVISION)(BEAKER) (test code = 2840) 1.73 K/uL 0 .00-0.80 H TOTAL COUNTED (BEAKER) (test code = 1351) 100 WBC MORPHOLOGY (BEAKER) (test code = 487) Normal PLT MORPHOLOGY (BEAKER) (test code = 486) Normal ANISOCYTOSIS (BEAKER) (test code = 961) 2+ moderate POIKILOCYTES (BEAKER) (test code = 966) 2+ moderate OVALOCYTES (BEAKER) (test code = 477) 2+ moderate TEAR DROP CELLS (BEAKER) (test code = 481) 1+ few JACKSON CELLS (BEAKER) (test code = 474) 2+ moderate ARTIFACT (CELLAVISION)(BEAKER) (test code = 3432) Present PLATELET CONCENTRATION (CELLAVISION)(BEAKER) (test code = 3438) Theresa quate Received comment: User comments: Slide comments: BASIC METABOLIC [id number] 05:02:00* Test Item Value Reference Range Interpretation Comments SODIUM (BEAKER) (test code = 381) 137 meq/L 136-145 POTASSIUM (BEAKER) (test code = 379) 3.8 meq/L 3.5-5.1 CHLORIDE (BEAKER) (test code = 382) 108 meq/L 98-107 H CO2 (BEAKER) (test code = 355) 22 meq/L 22-29 BLOOD UREA NITROGEN (BEAKER) (test code = 354) 11 mg/dL 7-21 CREATININE (BEAKER) (test code = 358) 0.81 mg/dL 0.57-1.25 GLUCOSE RANDOM (BEAKER) (test code = 652) 102 mg/dL 70-105 CALCIUM (BEAKER) (test code = 697) 9.2 mg/dL 8.4-10.2 EGFR (BEAKER) (test code = 1092) 79 mL/min/1.73 sq m ESTIMATED GFR IS NOT ACCURATE CREATININE CLEARANCE IN PREDICTING GLOMERULAR FILTRATION RATE. ESTIMATED GFR IS NOT APPLICABLE FOR DIALYSIS PATIENTS. HEMOGLOBIN AND [id number] 22:23:00* Test Item Value Reference Range Interpretation Comments HEMOGLOBIN (BEAKER) (test code = 410) 7.5 GM/DL 11.2-15.7 L HEMATOCRIT (BEAKER) (test code = 411) 24.4 % 34.1-44.9 L LACTIC ACID, VENOUS, WHOLE [id number] 17:50:00* Test Item Value Reference Range Interpretation Comments LACTATE BLOOD VENOUS (2) (BEAKER) (test code = 2872) 1.2 mmol/L 0 .5-2.2 Specimen moderately hemolyzed Effective 11/11/2015: Units/Reference Range ChangeNew: 0.5-2.2 mmol/L Previous: 5 -20 mg/dLCBC W/PLT COUNT & AUTO [id number] 14:19:00* Test Item Value Reference Range Interpretation Comments WHITE BLOOD CELL COUNT (BEAKER) (test code = 775) 11.2 K/ L 3.5- 10.5 H RED BLOOD CELL COUNT (BEAKER) (test code = 761) 2.88 M/ L 3.93-5 .22 L HEMOGLOBIN (BEAKER) (test code = 410) 7.3 GM/DL 11.2-15.7 L HEMATOCRIT (BEAKER) (test code = 411) 23.6 % 34.1-44.9 L MEAN CORPUSCULAR VOLUME (BEAKER) (test code = 753) 81.9 fL 79. 4-94.8 MEAN CORPUSCULAR HEMOGLOBIN (BEAKER) (test code = 751) 25.3 pg 25.6-32.2 L MEAN CORPUSCULAR HEMOGLOBIN CONC (BEAKER) (test code = 752) 30.9 GM/DL 32.2-35.5 L RED CELL DISTRIBUTION WIDTH (BEAKER) (test code = 412) 18.1 % 11.7-14.4 H PLATELET COUNT (BEAKER) (test code = 756) 210 K/CU MM 150-450 MEAN PLATELET VOLUME (BEAKER) (test code = 754) 10.8 fL 9.4-12 .3 NUCLEATED RED BLOOD CELLS (BEAKER) (test code = 413) 0 /100 WBC 0 -0 (CELLAVISION MANUAL DIFF)2018-03-14 14:19:00* Test Item Value Reference Range Interpretation Comments NEUTROPHILS - REL (CELLAVISION)(BEAKER) (test code = 2816) 62 % LYMPHOCYTES - REL (CELLAVISION)(BEAKER) (test code = 2817) 17 % MONOCYTES - REL (CELLAVISION)(BEAKER) (test code = 2818) 3 % EOSINOPHILS - REL (CELLAVISION)(BEAKER) (test code = 2819) 3 % BANDS - REL (CELLAVISION)(BEAKER) (test code = 2826) 15 % 0 -10 H NEUTROPHILS - ABS (CELLAVISION)(BEAKER) (test code = 2830) 6.94 K/ul 1.56-6.13 H LYMPHOCYTES - ABS (CELLAVISION)(BEAKER) (test code = 2831) 1.90 K/ul 1.18-3.74 MONOCYTES - ABS (CELLAVISION)(BEAKER) (test code = 2832) 0.34 K/uL 0.24-0.36 EOSINOPHILS - ABS (CELLAVISION)(BEAKER) (test code = 2834) 0.34 K/uL 0.04-0.36 BANDS - ABS (CELLAVISION)(BEAKER) (test code = 2840) 1.68 K/uL 0 .00-0.80 H TOTAL COUNTED (BEAKER) (test code = 1351) 100 WBC MORPHOLOGY (BEAKER) (test code = 487) Normal PLT MORPHOLOGY (BEAKER) (test code = 486) Normal POLYCHROMATOPHILLIC RBCS(BEAKER) (test code = 478) 2+ moderate ANISOCYTOSIS (BEAKER) (test code = 961) 2+ moderate POIKILOCYTES (BEAKER) (test code = 966) 2+ moderate ARTIFACT (CELLAVISION)(BEAKER) (test code = 3432) Present PLATELET CONCENTRATION (CELLAVISION)(BEAKER) (test code = 3438) Theresa quate Received comment: User comments: Slide comments: BASIC METABOLIC [id number] 13:55:00* Test Item Value Reference Range Interpretation Comments SODIUM (BEAKER) (test code = 381) 131 meq/L 136-145 L POTASSIUM (BEAKER) (test code = 379) 3.7 meq/L 3.5-5.1 CHLORIDE (BEAKER) (test code = 382) 105 meq/L 98-107 CO2 (BEAKER) (test code = 355) 20 meq/L 22-29 L BLOOD UREA NITROGEN (BEAKER) (test code = 354) 8 mg/dL 7-21 CREATININE (BEAKER) (test code = 358) 0.80 mg/dL 0.57-1.25 GLUCOSE RANDOM (BEAKER) (test code = 652) 97 mg/dL 70-105 CALCIUM (BEAKER) (test code = 697) 8.6 mg/dL 8.4-10.2 EGFR (BEAKER) (test code = 1092) 80 mL/min/1.73 sq m ESTIMATED GFR IS NOT ACCURATE CREATININE CLEARANCE IN PREDICTING GLOMERULAR FILTRATION RATE. ESTIMATED GFR IS NOT APPLICABLE FOR DIALYSIS PATIENTS. GI PATHOGEN PROFILE BY [id number] 09:22:00* Test Item Value Reference Range Interpretation Comments CAMPYLOBACTER (PCR) (test code = 1137625) Not detected Not detected PLESIOMONAS SHIGELLOIDES (PCR) (test code = 4902593) Not detecte d Not detected SALMONELLA (PCR) (test code = 0892941) Not detected Not detected YERSINIA ENTEROCOLITICA (PCR) (test code = 1391084) Not detected No t detected VIBRIO CHOLERAE (PCR) (test code = 8461977) Not detected Not detect ed ENTEROAGGREGATIVE E. COLI (EAEC) BY PCR (test code = 2270099 ) Not detected Not detected ENTEROPATHOGENIC E. COLI (EPEC) BY PCR (test code = 4028077) Not detected Not detected ENTEROTOXIGENIC E. COLI (ETEC) LT/ST BY PCR (test code = 201 6085) Not detected Not detected SHIGA-LIKE TOXIN-PRODUCING E. COLI (STEC) STX1/STX2 (t est code = 4039999) Not detected Not detected E. COLI O157 (PCR) (test code = 9072780) Not detected SHIGELLA/ENTEROINVASIVE E. COLI (EIEC) BY PCR (test co de = 20160215) Not detected Not detected CRYPTOSPORIDIUM (PCR) (test code = 9265484) Not detected Not detect ed CYCLOSPORA CAYETANENSIS (PCR) (test code = 8642110) Not detected No t detected ENTAMOEBA HISTOLYTICA (PCR) (test code = 9811357) Not detected Not detected GIARDIA LAMBLIA (PCR) (test code = 1385581) Not detected Not detect ed ADENOVIRUS F 40/41 (PCR) (test code = 1622778) Not detected Not det ected ASTROVIRUS (PCR) (test code = 2782703) Not detected Not detected NOROVIRUS GI/GII (PCR) (test code = 2236376) Not detected Not detec chandler ROTAVIRUS A (PCR) (test code = 7897922) Not detected Not detected SAPOVIRUS (I, II, IV, V) BY PCR (test code = 2233108) Not detect ed Not detected VIBRIO (PARAHAEMOLYTICUS, VULNIFICUS) (test code = 0849260) Not detected Not detected Other viruses, parasites and bacteria not targeted by this PCR panel cannot be e xcluded; therefore clinical correlation and follow up of serology, culture resul ts, and other molecular studies is required. The results are not intended to be used as the sole means for clinical diagnosis or patient management decisions. T his sample was tested at the [facility] using the [employer] Gastrointestinal Panel. It is FDA cleared and has been verified and approved by the [facility] for clinical use. Thi s laboratory is CLIA-certified and [employer] ([employer])-accred ited to perform high complexity testing.URINALYSIS W/ REFLEX URINE CULTURE 2018-03-14 07:54:00* Test Item Value Reference Range Interpretation Comments COLOR (BEAKER) (test code = 470) Yellow CLARITY (BEAKER) (test code = 469) Clear SPECIFIC GRAVITY UA (BEAKER) (test code = 468) 1.011 1.001-1 .035 PH UA (BEAKER) (test code = 467) 6.5 5.0-8.0 PROTEIN UA (BEAKER) (test code = 464) 10 mg/dL Negative A GLUCOSE UA (BEAKER) (test code = 365) Negative Negative KETONES UA (BEAKER) (test code = 371) Negative Negative BILIRUBIN UA (BEAKER) (test code = 462) Negative Negative BLOOD UA (BEAKER) (test code = 461) Large Negative A NITRITE UA (BEAKER) (test code = 465) Negative Negative LEUKOCYTE ESTERASE UA (BEAKER) (test code = 466) Trace Negat ivonne A UROBILINOGEN UA (BEAKER) (test code = 463) 0.2 mg/dL 0.2-1.0 RBC UA (BEAKER) (test code = 519) > /HPF WBC UA (BEAKER) (test code = 520) 12 /HPF MUCUS (BEAKER) (test code = 1574) Rare SQUAMOUS EPITHELIAL (BEAKER) (test code = 516) 2 /HPF SOURCE(BEAKER) (test code = 2795) [id number] 05:56:00* Test Item Value Reference Range Interpretation Comments LIPASE (BEAKER) (test code = 749) < U/L 8-78 L CBC W/PLT COUNT & AUTO [id number] 14:26:00* Test Item Value Reference Range Interpretation Comments WHITE BLOOD CELL COUNT (BEAKER) (test code = 775) 15.9 K/ L 3.5- 10.5 H RED BLOOD CELL COUNT (BEAKER) (test code = 761) 2.88 M/ L 3.93-5 .22 L HEMOGLOBIN (BEAKER) (test code = 410) 7.4 GM/DL 11.2-15.7 L HEMATOCRIT (BEAKER) (test code = 411) 23.7 % 34.1-44.9 L MEAN CORPUSCULAR VOLUME (BEAKER) (test code = 753) 82.3 fL 79. 4-94.8 MEAN CORPUSCULAR HEMOGLOBIN (BEAKER) (test code = 751) 25.7 pg 25.6-32.2 MEAN CORPUSCULAR HEMOGLOBIN CONC (BEAKER) (test code = 752) 31.2 GM/DL 32.2-35.5 L RED CELL DISTRIBUTION WIDTH (BEAKER) (test code = 412) 17.9 % 11.7-14.4 H PLATELET COUNT (BEAKER) (test code = 756) 173 K/CU MM 150-450 MEAN PLATELET VOLUME (BEAKER) (test code = 754) 9.2 fL 9.4-12 .3 L NUCLEATED RED BLOOD CELLS (BEAKER) (test code = 413) 0 /100 WBC 0 -0 (CELLAVISION MANUAL DIFF)2018-03-13 14:26:00* Test Item Value Reference Range Interpretation Comments NEUTROPHILS - REL (CELLAVISION)(BEAKER) (test code = 2816) 90 % LYMPHOCYTES - REL (CELLAVISION)(BEAKER) (test code = 2817) 6 % EOSINOPHILS - REL (CELLAVISION)(BEAKER) (test code = 2819) 2 % BANDS - REL (CELLAVISION)(BEAKER) (test code = 2826) 2 % 0 -10 NEUTROPHILS - ABS (CELLAVISION)(BEAKER) (test code = 2830) 14.31 K/ul 1.56-6.13 H LYMPHOCYTES - ABS (CELLAVISION)(BEAKER) (test code = 2831) 0.95 K/ul 1.18-3.74 L EOSINOPHILS - ABS (CELLAVISION)(BEAKER) (test code = 2834) 0.32 K/uL 0.04-0.36 BANDS - ABS (CELLAVISION)(BEAKER) (test code = 2840) 0.32 K/uL 0 .00-0.80 TOTAL COUNTED (BEAKER) (test code = 1351) 100 WBC MORPHOLOGY (BEAKER) (test code = 487) Normal PLT MORPHOLOGY (BEAKER) (test code = 486) Normal ANISOCYTOSIS (BEAKER) (test code = 961) 2+ moderate MICROCYTES (BEAKER) (test code = 965) 2+ moderate POIKILOCYTES (BEAKER) (test code = 966) 3+ many OVALOCYTES (BEAKER) (test code = 477) 1+ few TEAR DROP CELLS (BEAKER) (test code = 481) 1+ few ARTIFACT (CELLAVISION)(BEAKER) (test code = 3432) Present PLATELET CONCENTRATION (CELLAVISION)(BEAKER) (test code = 3438) Theresa quate Received comment: User comments: Slide comments: COMPREHENSIVE METABOLIC PANEL 2018-03-13 14:02:00* Test Item Value Reference Range Interpretation Comments TOTAL PROTEIN (BEAKER) (test code = 770) 6.7 gm/dL 6.0-8.3 ALBUMIN (BEAKER) (test code = 1145) 3.9 g/dL 3.5-5.0 ALKALINE PHOSPHATASE (BEAKER) (test code = 346) 140 U/L 40-150 BILIRUBIN TOTAL (BEAKER) (test code = 377) 0.2 mg/dL 0.2-1.2 SODIUM (BEAKER) (test code = 381) 135 meq/L 136-145 L POTASSIUM (BEAKER) (test code = 379) 3.7 meq/L 3.5-5.1 CHLORIDE (BEAKER) (test code = 382) 107 meq/L 98-107 CO2 (BEAKER) (test code = 355) 22 meq/L 22-29 BLOOD UREA NITROGEN (BEAKER) (test code = 354) 8 mg/dL 7-21 CREATININE (BEAKER) (test code = 358) 0.77 mg/dL 0.57-1.25 GLUCOSE RANDOM (BEAKER) (test code = 652) 144 mg/dL 70-105 H CALCIUM (BEAKER) (test code = 697) 8.9 mg/dL 8.4-10.2 AST (SGOT) (BEAKER) (test code = 353) 38 U/L 5-34 H ALT (SGPT) (BEAKER) (test code = 347) 34 U/L 6-55 EGFR (BEAKER) (test code = 1092) 84 mL/min/1.73 sq m ESTIMATED GFR IS NOT ACCURATE CREATININE CLEARANCE IN PREDICTING GLOMERULAR FILTRATION RATE. ESTIMATED GFR IS NOT APPLICABLE FOR DIALYSIS PATIENTS. PROTHROMBIN [id number] 13:42:00* Test Item Value Reference Range Interpretation Comments PROTIME (BEAKER) (test code = 759) 15.8 seconds 11.7-14.7 H INR (BEAKER) (test code = 370) 1.3 <=5.9 RECOMMENDED COUMADIN/WARFARIN INR THERAPY RANGESSTANDARD DOSE: 2.0 - 3.0 Inclu yossi: PROPHYLAXIS for venous thrombosis, systemic embolization; TREATMENT for [place] ous thrombosis and/or pulmonary embolus.HIGH RISK: Target INR is 2.5-3.5 for pat ients with mechanical heart valves.BLOOD [id number] 06:00:00* Test Item Value Reference Range Interpretation Comments CULTURE (BEAKER) (test code = 1095) No growth in 5 days BLOOD [id number] 02:00:00* Test Item Value Reference Range Interpretation Comments CULTURE (BEAKER) (test code = 1095) No growth in 5 days LACTIC ACID, VENOUS, WHOLE [id number] 00:24:00* Test Item Value Reference Range Interpretation Comments LACTATE BLOOD VENOUS (2) (BEAKER) (test code = 2872) 1.3 mmol/L 0 .5-2.2 Effective 11/11/2015: Units/Reference Range ChangeNew: 0.5-2.2 mmol/L Previous: 5 -20 mg/dLCBC W/PLT COUNT & AUTO [id number] 14:10:00* Test Item Value Reference Range Interpretation Comments WHITE BLOOD CELL COUNT (BEAKER) (test code = 775) 16.2 K/ L 3.5- 10.5 H RED BLOOD CELL COUNT (BEAKER) (test code = 761) 3.14 M/ L 3.93-5 .22 L HEMOGLOBIN (BEAKER) (test code = 410) 8.2 GM/DL 11.2-15.7 L HEMATOCRIT (BEAKER) (test code = 411) 25.7 % 34.1-44.9 L MEAN CORPUSCULAR VOLUME (BEAKER) (test code = 753) 81.8 fL 79. 4-94.8 MEAN CORPUSCULAR HEMOGLOBIN (BEAKER) (test code = 751) 26.1 pg 25.6-32.2 MEAN CORPUSCULAR HEMOGLOBIN CONC (BEAKER) (test code = 752) 31.9 GM/DL 32.2-35.5 L RED CELL DISTRIBUTION WIDTH (BEAKER) (test code = 412) 18.0 % 11.7-14.4 H PLATELET COUNT (BEAKER) (test code = 756) 188 K/CU MM 150-450 MEAN PLATELET VOLUME (BEAKER) (test code = 754) 10.6 fL 9.4-12 .3 NUCLEATED RED BLOOD CELLS (BEAKER) (test code = 413) 0 /100 WBC 0 -0 (CELLAVISION MANUAL DIFF)2018-03-12 14:10:00* Test Item Value Reference Range Interpretation Comments NEUTROPHILS - REL (CELLAVISION)(BEAKER) (test code = 2816) 85 % LYMPHOCYTES - REL (CELLAVISION)(BEAKER) (test code = 2817) 12 % EOSINOPHILS - REL (CELLAVISION)(BEAKER) (test code = 2819) 3 % NEUTROPHILS - ABS (CELLAVISION)(BEAKER) (test code = 2830) 13.77 K/ul 1.56-6.13 H LYMPHOCYTES - ABS (CELLAVISION)(BEAKER) (test code = 2831) 1.94 K/ul 1.18-3.74 EOSINOPHILS - ABS (CELLAVISION)(BEAKER) (test code = 2834) 0.49 K/uL 0.04-0.36 H TOTAL COUNTED (BEAKER) (test code = 1351) 100 WBC MORPHOLOGY (BEAKER) (test code = 487) Normal LARGE PLT(BEAKER) (test code = 2156) Present POLYCHROMATOPHILLIC RBCS(BEAKER) (test code = 478) 1+ few HYPOCHROMIA (BEAKER) (test code = 963) 1+ few OVALOCYTES (BEAKER) (test code = 477) 1+ few TEAR DROP CELLS (BEAKER) (test code = 481) 1+ few ARTIFACT (CELLAVISION)(BEAKER) (test code = 3432) Present PLATELET CONCENTRATION (CELLAVISION)(BEAKER) (test code = 3438) Theresa quate Received comment: User comments: Slide comments: BASIC METABOLIC [id number] 13:45:00* Test Item Value Reference Range Interpretation Comments SODIUM (BEAKER) (test code = 381) 134 meq/L 136-145 L POTASSIUM (BEAKER) (test code = 379) 3.8 meq/L 3.5-5.1 CHLORIDE (BEAKER) (test code = 382) 104 meq/L 98-107 CO2 (BEAKER) (test code = 355) 20 meq/L 22-29 L BLOOD UREA NITROGEN (BEAKER) (test code = 354) 8 mg/dL 7-21 CREATININE (BEAKER) (test code = 358) 0.69 mg/dL 0.57-1.25 GLUCOSE RANDOM (BEAKER) (test code = 652) 95 mg/dL 70-105 CALCIUM (BEAKER) (test code = 697) 8.7 mg/dL 8.4-10.2 EGFR (BEAKER) (test code = 1092) 95 mL/min/1.73 sq m ESTIMATED GFR IS NOT ACCURATE CREATININE CLEARANCE IN PREDICTING GLOMERULAR FILTRATION RATE. ESTIMATED GFR IS NOT APPLICABLE FOR DIALYSIS PATIENTS. RAD, CHEST, 1 VIEW, NON [id number] 16:56:00Reason for exam:->feverShould this be performed at [...] evidence of acute cardiopulmonary disease. Signed: Dasha An MDReport Verified Date/Time: 03/11/2018 16:56:44 Reading Location: [address] Reading Room Electronically signed by: DASHA AN MD on 03/11 04:56 PM OCCULT BLOOD, [id number] 14:52:00* Test Item Value Reference Range Interpretation Comments FECAL OCCULT BLOOD (BEAKER) (test code = 618) Positive Negative A CBC W/PLT COUNT & AUTO [id number] 06:55:00* Test Item Value Reference Range Interpretation Comments WHITE BLOOD CELL COUNT (BEAKER) (test code = 775) 31.5 K/ L 3.5- 10.5 H RED BLOOD CELL COUNT (BEAKER) (test code = 761) 3.51 M/ L 3.93-5 .22 L HEMOGLOBIN (BEAKER) (test code = 410) 8.9 GM/DL 11.2-15.7 L HEMATOCRIT (BEAKER) (test code = 411) 29.0 % 34.1-44.9 L MEAN CORPUSCULAR VOLUME (BEAKER) (test code = 753) 82.6 fL 79. 4-94.8 MEAN CORPUSCULAR HEMOGLOBIN (BEAKER) (test code = 751) 25.4 pg 25.6-32.2 L MEAN CORPUSCULAR HEMOGLOBIN CONC (BEAKER) (test code = 752) 30.7 GM/DL 32.2-35.5 L RED CELL DISTRIBUTION WIDTH (BEAKER) (test code = 412) 18.1 % 11.7-14.4 H PLATELET COUNT (BEAKER) (test code = 756) 231 K/CU MM 150-450 MEAN PLATELET VOLUME (BEAKER) (test code = 754) 10.5 fL 9.4-12 .3 NUCLEATED RED BLOOD CELLS (BEAKER) (test code = 413) 0 /100 WBC 0 -0 (CELLAVISION MANUAL DIFF)2018-03-11 06:55:00* Test Item Value Reference Range Interpretation Comments NEUTROPHILS - REL (CELLAVISION)(BEAKER) (test code = 2816) 80 % LYMPHOCYTES - REL (CELLAVISION)(BEAKER) (test code = 2817) 12 % BANDS - REL (CELLAVISION)(BEAKER) (test code = 2826) 8 % 0 -10 NEUTROPHILS - ABS (CELLAVISION)(BEAKER) (test code = 2830) 25.20 K/ul 1.56-6.13 H LYMPHOCYTES - ABS (CELLAVISION)(BEAKER) (test code = 2831) 3.78 K/ul 1.18-3.74 H BANDS - ABS (CELLAVISION)(BEAKER) (test code = 2840) 2.52 K/uL 0 .00-0.80 H TOTAL COUNTED (BEAKER) (test code = 1351) 100 WBC MORPHOLOGY (BEAKER) (test code = 487) Normal PLT MORPHOLOGY (BEAKER) (test code = 486) Normal ANISOCYTOSIS (BEAKER) (test code = 961) 1+ few MICROCYTES (BEAKER) (test code = 965) 1+ few POIKILOCYTES (BEAKER) (test code = 966) 2+ moderate OVALOCYTES (BEAKER) (test code = 477) 1+ few TEAR DROP CELLS (BEAKER) (test code = 481) 1+ few ARTIFACT (CELLAVISION)(BEAKER) (test code = 3432) Present PLATELET CONCENTRATION (CELLAVISION)(BEAKER) (test code = 3438) Theresa quate Received comment: User comments: Slide comments: [id number] 06:25:00* Test Item Value Reference Range Interpretation Comments MAGNESIUM (BEAKER) (test code = 627) 2.0 mg/dL 1.6-2.6 BASIC METABOLIC [id number] 06:25:00* Test Item Value Reference Range Interpretation Comments SODIUM (BEAKER) (test code = 381) 136 meq/L 136-145 POTASSIUM (BEAKER) (test code = 379) 3.9 meq/L 3.5-5.1 CHLORIDE (BEAKER) (test code = 382) 107 meq/L 98-107 CO2 (BEAKER) (test code = 355) 21 meq/L 22-29 L BLOOD UREA NITROGEN (BEAKER) (test code = 354) 9 mg/dL 7-21 CREATININE (BEAKER) (test code = 358) 0.73 mg/dL 0.57-1.25 GLUCOSE RANDOM (BEAKER) (test code = 652) 100 mg/dL 70-105 CALCIUM (BEAKER) (test code = 697) 9.3 mg/dL 8.4-10.2 EGFR (BEAKER) (test code = 1092) 89 mL/min/1.73 sq m ESTIMATED GFR IS NOT ACCURATE CREATININE CLEARANCE IN PREDICTING GLOMERULAR FILTRATION RATE. ESTIMATED GFR IS NOT APPLICABLE FOR DIALYSIS PATIENTS. C. DIFFICILE GDH [id number] 09:52:00* Test Item Value Reference Range Interpretation Comments CDT TOXIN (test code = 3357278678) Negative Negative CDT GDH ANTIGEN (test code = 4650064700) Positive Negative A C. difficile present but toxin not detected. [...] of kit performance was done by the [facility] prior to cl inical use.[id number] 07:55:00* Test Item Value Reference Range Interpretation Comments MAGNESIUM (BEAKER) (test code = 627) 2.2 mg/dL 1.6-2.6 BASIC METABOLIC [id number] 07:55:00* Test Item Value Reference Range Interpretation Comments SODIUM (BEAKER) (test code = 381) 135 meq/L 136-145 L POTASSIUM (BEAKER) (test code = 379) 3.8 meq/L 3.5-5.1 CHLORIDE (BEAKER) (test code = 382) 104 meq/L 98-107 CO2 (BEAKER) (test code = 355) 22 meq/L 22-29 BLOOD UREA NITROGEN (BEAKER) (test code = 354) 13 mg/dL 7-21 CREATININE (BEAKER) (test code = 358) 0.76 mg/dL 0.57-1.25 GLUCOSE RANDOM (BEAKER) (test code = 652) 82 mg/dL 70-105 CALCIUM (BEAKER) (test code = 697) 8.9 mg/dL 8.4-10.2 EGFR (BEAKER) (test code = 1092) 85 mL/min/1.73 sq m ESTIMATED GFR IS NOT ACCURATE CREATININE CLEARANCE IN PREDICTING GLOMERULAR FILTRATION RATE. ESTIMATED GFR IS NOT APPLICABLE FOR DIALYSIS PATIENTS. CBC W/PLT COUNT & AUTO [id number] 07:36:00* Test Item Value Reference Range Interpretation Comments WHITE BLOOD CELL COUNT (BEAKER) (test code = 775) 4.3 K/ L 3.5- 10.5 RED BLOOD CELL COUNT (BEAKER) (test code = 761) 3.49 M/ L 3.93-5 .22 L HEMOGLOBIN (BEAKER) (test code = 410) 8.7 GM/DL 11.2-15.7 L HEMATOCRIT (BEAKER) (test code = 411) 28.7 % 34.1-44.9 L MEAN CORPUSCULAR VOLUME (BEAKER) (test code = 753) 82.2 fL 79. 4-94.8 MEAN CORPUSCULAR HEMOGLOBIN (BEAKER) (test code = 751) 24.9 pg 25.6-32.2 L MEAN CORPUSCULAR HEMOGLOBIN CONC (BEAKER) (test code = 752) 30.3 GM/DL 32.2-35.5 L RED CELL DISTRIBUTION WIDTH (BEAKER) (test code = 412) 18.6 % 11.7-14.4 H PLATELET COUNT (BEAKER) (test code = 756) 236 K/CU MM 150-450 MEAN PLATELET VOLUME (BEAKER) (test code = 754) 9.8 fL 9.4-12 .3 NUCLEATED RED BLOOD CELLS (BEAKER) (test code = 413) 0 /100 WBC 0 -0 NEUTROPHILS RELATIVE PERCENT (BEAKER) (test code = 429) 43 % LYMPHOCYTES RELATIVE PERCENT (BEAKER) (test code = 430) 47 % MONOCYTES RELATIVE PERCENT (BEAKER) (test code = 431) 6 % EOSINOPHILS RELATIVE PERCENT (BEAKER) (test code = 432) 4 % BASOPHILS RELATIVE PERCENT (BEAKER) (test code = 437) 1 % NEUTROPHILS ABSOLUTE COUNT (BEAKER) (test code = 670) 1.83 K/ L 1.56-6.13 LYMPHOCYTES ABSOLUTE COUNT (BEAKER) (test code = 414) 2.03 K/ L 1.18-3.74 MONOCYTES ABSOLUTE COUNT (BEAKER) (test code = 415) 0.26 K/ L 0. 24-0.36 EOSINOPHILS ABSOLUTE COUNT (BEAKER) (test code = 416) 0.15 K/ L 0.04-0.36 BASOPHILS ABSOLUTE COUNT (BEAKER) (test code = 417) 0.02 K/ L 0. 01-0.08 IMMATURE GRANULOCYTES-RELATIVE PERCENT (BEAKER) (test code = 2801) 0 % 0-1 CT, [id number] 03:22:00FINAL REPORT CLINICAL HISTORY: Neoplasm staging FINDINGS: [...] Clark MDReport Verified Date/Time: 03/10/2018 03:22:18 R eading Location: [address] Reading Room , CHEST, WITH CONTRAST 2018-03-10 03:22:00FINAL [...] Clark MDReport Verified Date/Time: 03/10/2018 03:22:18 R eading Location: [address] Room E [id number] 12:54:00* Test Item Value Reference Range Interpretation Comments CULTURE (BEAKER) (test code = 1095) <10,000 col/mL skin rachele [id number] 06:26:00* Test Item Value Reference Range Interpretation Comments MAGNESIUM (BEAKER) (test code = 627) 2.2 mg/dL 1.6-2.6 Specimen slightly hemolyzed BASIC METABOLIC [id number] 06:26:00* Test Item Value Reference Range Interpretation Comments SODIUM (BEAKER) (test code = 381) 137 meq/L 136-145 POTASSIUM (BEAKER) (test code = 379) 4.4 meq/L 3.5-5.1 Specimen slightly hemolyzed CHLORIDE (BEAKER) (test code = 382) 107 meq/L 98-107 CO2 (BEAKER) (test code = 355) 21 meq/L 22-29 L BLOOD UREA NITROGEN (BEAKER) (test code = 354) 13 mg/dL 7-21 CREATININE (BEAKER) (test code = 358) 0.77 mg/dL 0.57-1.25 Specimen slightly hemolyzed GLUCOSE RANDOM (BEAKER) (test code = 652) 93 mg/dL 70-105 CALCIUM (BEAKER) (test code = 697) 9.4 mg/dL 8.4-10.2 EGFR (BEAKER) (test code = 1092) 84 mL/min/1.73 sq m ESTIMATED GFR IS NOT ACCURATE CREATININE CLEARANCE IN PREDICTING GLOMERULAR FILTRATION RATE. ESTIMATED GFR IS NOT APPLICABLE FOR DIALYSIS PATIENTS. CBC W/PLT COUNT & AUTO [id number] 06:06:00* Test Item Value Reference Range Interpretation Comments WHITE BLOOD CELL COUNT (BEAKER) (test code = 775) 3.5 K/ L 3.5- 10.5 RED BLOOD CELL COUNT (BEAKER) (test code = 761) 3.53 M/ L 3.93-5 .22 L HEMOGLOBIN (BEAKER) (test code = 410) 8.8 GM/DL 11.2-15.7 L HEMATOCRIT (BEAKER) (test code = 411) 29.2 % 34.1-44.9 L MEAN CORPUSCULAR VOLUME (BEAKER) (test code = 753) 82.7 fL 79. 4-94.8 MEAN CORPUSCULAR HEMOGLOBIN (BEAKER) (test code = 751) 24.9 pg 25.6-32.2 L MEAN CORPUSCULAR HEMOGLOBIN CONC (BEAKER) (test code = 752) 30.1 GM/DL 32.2-35.5 L RED CELL DISTRIBUTION WIDTH (BEAKER) (test code = 412) 18.9 % 11.7-14.4 H PLATELET COUNT (BEAKER) (test code = 756) 205 K/CU MM 150-450 MEAN PLATELET VOLUME (BEAKER) (test code = 754) 10.0 fL 9.4-12 .3 NUCLEATED RED BLOOD CELLS (BEAKER) (test code = 413) 0 /100 WBC 0 -0 NEUTROPHILS RELATIVE PERCENT (BEAKER) (test code = 429) 44 % LYMPHOCYTES RELATIVE PERCENT (BEAKER) (test code = 430) 40 % MONOCYTES RELATIVE PERCENT (BEAKER) (test code = 431) 11 % EOSINOPHILS RELATIVE PERCENT (BEAKER) (test code = 432) 4 % BASOPHILS RELATIVE PERCENT (BEAKER) (test code = 437) 1 % NEUTROPHILS ABSOLUTE COUNT (BEAKER) (test code = 670) 1.52 K/ L 1.56-6.13 L LYMPHOCYTES ABSOLUTE COUNT (BEAKER) (test code = 414) 1.38 K/ L 1.18-3.74 MONOCYTES ABSOLUTE COUNT (BEAKER) (test code = 415) 0.37 K/ L 0. 24-0.36 H EOSINOPHILS ABSOLUTE COUNT (BEAKER) (test code = 416) 0.14 K/ L 0.04-0.36 BASOPHILS ABSOLUTE COUNT (BEAKER) (test code = 417) 0.03 K/ L 0. 01-0.08 IMMATURE GRANULOCYTES-RELATIVE PERCENT (BEAKER) (test code = 2801) 0 % 0-1 BASIC METABOLIC [id number] 10:59:00* Test Item Value Reference Range Interpretation Comments SODIUM (BEAKER) (test code = 381) 136 meq/L 136-145 POTASSIUM (BEAKER) (test code = 379) 4.2 meq/L 3.5-5.1 CHLORIDE (BEAKER) (test code = 382) 108 meq/L 98-107 H CO2 (BEAKER) (test code = 355) 21 meq/L 22-29 L BLOOD UREA NITROGEN (BEAKER) (test code = 354) 15 mg/dL 7-21 CREATININE (BEAKER) (test code = 358) 0.83 mg/dL 0.57-1.25 GLUCOSE RANDOM (BEAKER) (test code = 652) 103 mg/dL 70-105 CALCIUM (BEAKER) (test code = 697) 9.9 mg/dL 8.4-10.2 EGFR (BEAKER) (test code = 1092) 77 mL/min/1.73 sq m ESTIMATED GFR IS NOT ACCURATE CREATININE CLEARANCE IN PREDICTING GLOMERULAR FILTRATION RATE. ESTIMATED GFR IS NOT APPLICABLE FOR DIALYSIS PATIENTS. CBC W/PLT COUNT & AUTO [id number] 10:46:00* Test Item Value Reference Range Interpretation Comments WHITE BLOOD CELL COUNT (BEAKER) (test code = 775) 8.8 K/ L 3.5- 10.5 RED BLOOD CELL COUNT (BEAKER) (test code = 761) 3.71 M/ L 3.93-5 .22 L HEMOGLOBIN (BEAKER) (test code = 410) 9.3 GM/DL 11.2-15.7 L HEMATOCRIT (BEAKER) (test code = 411) 30.3 % 34.1-44.9 L MEAN CORPUSCULAR VOLUME (BEAKER) (test code = 753) 81.7 fL 79. 4-94.8 MEAN CORPUSCULAR HEMOGLOBIN (BEAKER) (test code = 751) 25.1 pg 25.6-32.2 L MEAN CORPUSCULAR HEMOGLOBIN CONC (BEAKER) (test code = 752) 30.7 GM/DL 32.2-35.5 L RED CELL DISTRIBUTION WIDTH (BEAKER) (test code = 412) 18.9 % 11.7-14.4 H PLATELET COUNT (BEAKER) (test code = 756) 227 K/CU MM 150-450 MEAN PLATELET VOLUME (BEAKER) (test code = 754) 9.6 fL 9.4-12 .3 NUCLEATED RED BLOOD CELLS (BEAKER) (test code = 413) 0 /100 WBC 0 -0 NEUTROPHILS RELATIVE PERCENT (BEAKER) (test code = 429) 75 % LYMPHOCYTES RELATIVE PERCENT (BEAKER) (test code = 430) 11 % MONOCYTES RELATIVE PERCENT (BEAKER) (test code = 431) 13 % EOSINOPHILS RELATIVE PERCENT (BEAKER) (test code = 432) 0 % BASOPHILS RELATIVE PERCENT (BEAKER) (test code = 437) 0 % NEUTROPHILS ABSOLUTE COUNT (BEAKER) (test code = 670) 6.58 K/ L 1.56-6.13 H LYMPHOCYTES ABSOLUTE COUNT (BEAKER) (test code = 414) 1.00 K/ L 1.18-3.74 L MONOCYTES ABSOLUTE COUNT (BEAKER) (test code = 415) 1.10 K/ L 0. 24-0.36 H EOSINOPHILS ABSOLUTE COUNT (BEAKER) (test code = 416) 0.00 K/ L 0.04-0.36 L BASOPHILS ABSOLUTE COUNT (BEAKER) (test code = 417) 0.03 K/ L 0. 01-0.08 IMMATURE GRANULOCYTES-RELATIVE PERCENT (BEAKER) (test code = 2801) 1 % 0-1 POCT-LACTIC ACID, [id number] 02:21:00* Test Item Value Reference Range Interpretation Comments POC-LACTIC ACID, VENOUS (BEAKER) (test code = 2805) 1.6 mmol/L 0. 9-1.7 TESTED AT [place] [id number] [facility] [address] POCT-LACTIC ACID, [id number] 00:20:00* Test Item Value Reference Range Interpretation Comments POC-LACTIC ACID, VENOUS (BEAKER) (test code = 2805) 2.3 mmol/L 0. 9-1.7 H TESTED AT [facility] [address] [facility] [address] [place], [id number] 00:15:00Reason for exam:->ABDOMINAL PAINReason for exam:-> FEVERReason [...] without evidence of hydronephrosis or hydroureter. Signed: Tom Rodarte Verified Date/Time: 03/08/2018 00:15:16 Reading Locati on: [facility] B1 C013T Transitional Reading Room W/PLT COUNT & AUTO DIFFERENTIAL 2018-03-07 23:06:00* Test Item Value Reference Range Interpretation Comments WHITE BLOOD CELL COUNT (BEAKER) (test code = 775) 5.2 K/ L 3.5- 10.5 RED BLOOD CELL COUNT (BEAKER) (test code = 761) 3.92 M/ L 3.93-5 .22 L HEMOGLOBIN (BEAKER) (test code = 410) 9.8 GM/DL 11.2-15.7 L HEMATOCRIT (BEAKER) (test code = 411) 32.0 % 34.1-44.9 L MEAN CORPUSCULAR VOLUME (BEAKER) (test code = 753) 81.6 fL 79. 4-94.8 MEAN CORPUSCULAR HEMOGLOBIN (BEAKER) (test code = 751) 25.0 pg 25.6-32.2 L MEAN CORPUSCULAR HEMOGLOBIN CONC (BEAKER) (test code = 752) 30.6 GM/DL 32.2-35.5 L RED CELL DISTRIBUTION WIDTH (BEAKER) (test code = 412) 18.6 % 11.7-14.4 H PLATELET COUNT (BEAKER) (test code = 756) 226 K/CU MM 150-450 MEAN PLATELET VOLUME (BEAKER) (test code = 754) 9.6 fL 9.4-12 .3 NUCLEATED RED BLOOD CELLS (BEAKER) (test code = 413) 0 /100 WBC 0 -0 NEUTROPHILS RELATIVE PERCENT (BEAKER) (test code = 429) 76 % LYMPHOCYTES RELATIVE PERCENT (BEAKER) (test code = 430) 19 % MONOCYTES RELATIVE PERCENT (BEAKER) (test code = 431) 5 % EOSINOPHILS RELATIVE PERCENT (BEAKER) (test code = 432) 0 % BASOPHILS RELATIVE PERCENT (BEAKER) (test code = 437) 0 % NEUTROPHILS ABSOLUTE COUNT (BEAKER) (test code = 670) 3.95 K/ L 1.56-6.13 LYMPHOCYTES ABSOLUTE COUNT (BEAKER) (test code = 414) 0.97 K/ L 1.18-3.74 L MONOCYTES ABSOLUTE COUNT (BEAKER) (test code = 415) 0.26 K/ L 0. 24-0.36 EOSINOPHILS ABSOLUTE COUNT (BEAKER) (test code = 416) 0.00 K/ L 0.04-0.36 L BASOPHILS ABSOLUTE COUNT (BEAKER) (test code = 417) 0.00 K/ L 0. 01-0.08 L IMMATURE GRANULOCYTES-RELATIVE PERCENT (BEAKER) (test code = 2801) 1 % 0-1 URINALYSIS W/ REFLEX URINE [id number] 22:17:00* Test Item Value Reference Range Interpretation Comments COLOR (BEAKER) (test code = 470) Yellow CLARITY (BEAKER) (test code = 469) Hazy SPECIFIC GRAVITY UA (BEAKER) (test code = 468) 1.013 1.001-1 .035 PH UA (BEAKER) (test code = 467) 7.0 5.0-8.0 PROTEIN UA (BEAKER) (test code = 464) 20 mg/dL Negative A GLUCOSE UA (BEAKER) (test code = 365) Negative Negative KETONES UA (BEAKER) (test code = 371) Negative Negative BILIRUBIN UA (BEAKER) (test code = 462) Negative Negative BLOOD UA (BEAKER) (test code = 461) Moderate Negative A NITRITE UA (BEAKER) (test code = 465) Negative Negative LEUKOCYTE ESTERASE UA (BEAKER) (test code = 466) Negative Negat ivonne UROBILINOGEN UA (BEAKER) (test code = 463) 0.2 mg/dL 0.2-1.0 RBC UA (BEAKER) (test code = 519) 101 /HPF WBC UA (BEAKER) (test code = 520) 6 /HPF BACTERIA (BEAKER) (test code = 517) Occasional SQUAMOUS EPITHELIAL (BEAKER) (test code = 516) 6 /HPF SOURCE(BEAKER) (test code = 2795) BASIC METABOLIC [id number] 22:16:00* Test Item Value Reference Range Interpretation Comments SODIUM (BEAKER) (test code = 381) 137 meq/L 136-145 POTASSIUM (BEAKER) (test code = 379) 4.4 meq/L 3.5-5.1 Specimen slightly hemolyzed CHLORIDE (BEAKER) (test code = 382) 110 meq/L 98-107 H CO2 (BEAKER) (test code = 355) 17 meq/L 22-29 L BLOOD UREA NITROGEN (BEAKER) (test code = 354) 13 mg/dL 7-21 CREATININE (BEAKER) (test code = 358) 0.86 mg/dL 0.57-1.25 Specimen slightly hemolyzed GLUCOSE RANDOM (AKER) (test code = 652) 122 mg/dL 70-105 H CALCIUM (AKER) (test code = 697) 9.6 mg/dL 8.4-10.2 EGFR (AKER) (test code = 1092) 74 mL/min/1.73 sq m ESTIMATED GFR IS NOT ACCURATE CREATININE CLEARANCE IN PREDICTING GLOMERULAR FILTRATION RATE. ESTIMATED GFR IS NOT APPLICABLE FOR DIALYSIS PATIENTS. LACTIC ACID, VENOUS, WHOLE [id number] 22:13:00* Test Item Value Reference Range Interpretation Comments LACTATE BLOOD VENOUS (2) ([facility]) (test code = 2872) 2.3 mmol/L 0 .5-2.2 H Specimen slightly hemolyzed Effective 11/11/2015: Units/Reference Range ChangeNew: 0.5-2.2 mmol/L Previous: 5 -20 mg/dLDifferential Total Cells [id number] 19:55:00* Test Item Value Reference Range Interpretation Comments Differential Total Cells Counted (test code = Afsaneh tial Total Cells Counted) 100 [facility]2018-02-27 19:55:00 * Test Item Value Reference Range Interpretation Comments Neutrophils % (Manual) (test code = 74531-7) 23 40-74 L [facility] % ([facility])2018-02-27 19:55:00 * Test Item Value Reference Range Interpretation Comments Lymphocytes % (Manual) (test code = 737-7) 57 19-48 H [facility] ([facility]2018-02-27 19:55:00* Test Item Value Reference Range Interpretation Comments Monocytes % (Manual) (test code = 744-3) 8 3.4-9.0 [facility]2018-02-27 19:55:00 * Test Item Value Reference Range Interpretation Comments Eosinophils % (Manual) (test code = 714-6) 5 0-7 [facility]Re[facility] Vcjzqgjmgxq5401-53-94 19:55:00* Test Item Value Reference Range Interpretation Comments Reactive Lymphocytes (test code = 65832-8) 7 [facility] HospitalPlatelet Icnncpvj3780-26-82 19:55:00* Test Item Value Reference Range Interpretation Comments Platelet Estimate (test code = 87210-6) ADEQUATE [facility] HospitalPlatelet Morphology Nwsvnjb1422-02-19 19:55:00* Test Item Value Reference Range Interpretation Comments Platelet Morphology Comment (test code = 34466-5) NORMAL [facility] HospitalHypochromasia2018-08-21 19:55:00* Test Item Value Reference Range Interpretation Comments Hypochromasia (test code = 728-6) SLIGHT [facility] HospitalRed Cell Morphology Aeeguzu9600-70-22 19:55:00* Test Item Value Reference Range Interpretation Comments Red Cell Morphology Comment (test code = 6742-1) NORMAL [facility] HospitalDifferential Total Cells Counted 2018-02-27 19:55:00* Test Item Value Reference Range Interpretation Comments Differential Total Cells Counted (test code = Differchas tial Total Cells Counted) 100 [facility]Ne[facility] % (Manual)2018-02-27 19:55:00 * Test Item Value Reference Range Interpretation Comments Neutrophils % (Manual) (test code = 56092-3) 23 40-74 L [facility]Lymphocytes % (Manual)2018-02-27 19:55:00 * Test Item Value Reference Range Interpretation Comments Lymphocytes % (Manual) (test code = 737-7) 57 19-48 H [facility]Mon[facility] % ([facility])2018-02-27 19:55:00* Test Item Value Reference Range Interpretation Comments Monocytes % (Manual) (test code = 744-3) 8 3.4-9.0 [facility]Eosinophils % ([facility])2018-02-27 19:55:00 * Test Item Value Reference Range Interpretation Comments Eosinophils % (Manual) (test code = 714-6) 5 0-7 [facility] HospitalReactive Ldigeyfbszr0127-89-48 19:55:00* Test Item Value Reference Range Interpretation Comments Reactive Lymphocytes (test code = 56306-2) 7 [facility] HospitalPlatelet Wiyyxzmx0590-80-52 19:55:00* Test Item Value Reference Range Interpretation Comments Platelet Estimate (test code = 82355-4) ADEQUATE [facility] HospitalPlatelet Morphology Aqpbmjv6095-12-16 19:55:00* Test Item Value Reference Range Interpretation Comments Platelet Morphology Comment (test code = 90685-3) NORMAL [facility] HospitalHypochromasia2018-08-21 19:55:00* Test Item Value Reference Range Interpretation Comments Hypochromasia (test code = 728-6) SLIGHT [facility] HospitalRed Cell Morphology Qruyuma7663-21-67 19:55:00* Test Item Value Reference Range Interpretation Comments Red Cell Morphology Comment (test code = 6742-1) NORMAL [facility] HospitalDifferential Total Cells Counted 2018-02-27 19:55:00* Test Item Value Reference Range Interpretation Comments Differential Total Cells Counted (test code = Differchas tial Total Cells Counted) 100 [facility]Ne[facility]ils % (Manual)2018-02-27 19:55:00 * Test Item Value Reference Range Interpretation Comments Neutrophils % (Manual) (test code = 00449-0) 23 40-74 L [facility] HospitalLymphocytes % (Manual)2018-02-27 19:55:00 * Test Item Value Reference Range Interpretation Comments Lymphocytes % (Manual) (test code = 737-7) 57 19-48 H [facility] HospitalMonocytes % (Manual)2018-02-27 19:55:00* Test Item Value Reference Range Interpretation Comments Monocytes % (Manual) (test code = 744-3) 8 3.4-9.0 [facility] % ([facility])2018-02-27 19:55:00 * Test Item Value Reference Range Interpretation Comments Eosinophils % (Manual) (test code = 714-6) 5 0-7 [facility] HospitalReactive Xmgeotaqtip7966-44-47 19:55:00* Test Item Value Reference Range Interpretation Comments Reactive Lymphocytes (test code = 13194-7) 7 [facility] HospitalPlatelet Ljvvuwfn9111-01-87 19:55:00* Test Item Value Reference Range Interpretation Comments Platelet Estimate (test code = 17667-5) ADEQUATE [facility] HospitalPlatelet Morphology Whsubtn6225-82-55 19:55:00* Test Item Value Reference Range Interpretation Comments Platelet Morphology Comment (test code = 86268-9) [facility]AL [facility]* Test Item Value Reference Range Interpretation Comments Hypochromasia (test code = 728-6) SLIGHT [facility] HospitalRed Cell Morphology Igjohhu0653-39-90 19:55:00* Test Item Value Reference Range Interpretation Comments Red Cell Morphology Comment (test code = 6742-1) NORMAL [facility] HospitalMonocytes % (Manual)2018-02-27 19:55:00* Test Item Value Reference Range Interpretation Comments Monocytes % (Manual) (test code = 744-3) 8 3.4-9.0 [facility] HospitalReactive Icbgbndphmu5029-11-93 19:55:00* Test Item Value Reference Range Interpretation Comments Reactive Lymphocytes (test code = 80826-9) 7 [facility] HospitalHypochromasia2018-08-21 19:55:00* Test Item Value Reference Range Interpretation Comments Hypochromasia (test code = 728-6) SLIGHT [facility] HospitalMonocytes % (Manual)2018-02-27 19:55:00* Test Item Value Reference Range Interpretation Comments Monocytes % (Manual) (test code = 744-3) 8 3.4-9.0 [facility] HospitalReactive Ziuzsgsijqp1041-64-13 19:55:00* Test Item Value Reference Range Interpretation Comments Reactive Lymphocytes (test code = 19147-4) 7 [facility] HospitalHypochromasia2018-08-21 19:55:00* Test Item Value Reference Range Interpretation Comments Hypochromasia (test code = 728-6) SLIGHT [facility] HospitalMonocytes % (Manual)2018-02-27 19:55:00* Test Item Value Reference Range Interpretation Comments Monocytes % (Manual) (test code = 744-3) 8 3.4-9.0 [facility] HospitalReactive Muofnjlqizq7569-94-38 19:55:00* Test Item Value Reference Range Interpretation Comments Reactive Lymphocytes (test code = 13197-1) 7 [facility] HospitalHypochromasia2018-08-21 19:55:00* Test Item Value Reference Range Interpretation Comments Hypochromasia (test code = 728-6) SLIGHT [facility] HospitalMonocytes % (Manual)2018-02-27 19:55:00* Test Item Value Reference Range Interpretation Comments Monocytes % (Manual) (test code = 744-3) 8 3.4-9.0 [facility] HospitalReactive Izijqurecub1481-02-46 19:55:00* Test Item Value Reference Range Interpretation Comments Reactive Lymphocytes (test code = 13799-8) 7 [facility]* Test Item Value Reference Range Interpretation Comments Hypochromasia (test code = 728-6) SLIGHT [facility] HospitalMonocytes % (Manual)2018-02-27 19:55:00* Test Item Value Reference Range Interpretation Comments Monocytes % (Manual) (test code = 744-3) 8 3.4-9.0 [facility] HospitalReactive Aflmedrcusk6255-55-70 19:55:00* Test Item Value Reference Range Interpretation Comments Reactive Lymphocytes (test code = 74186-8) 7 [facility] HospitalHypochromasia2018-08-21 19:55:00* Test Item Value Reference Range Interpretation Comments Hypochromasia (test code = 728-6) SLIGHT [facility] HospitalAmylase Uejkx8964-83-04 18:59:00* Test Item Value Reference Range Interpretation Comments Amylase Level (test code = 1798-8) 55 25-125 [facility] HospitalLipase2018-08-21 18:59:00* Test Item Value Reference Range Interpretation Comments Lipase (test code = 3040-3) 16 8-78 [facility] Zdjhv9730-58-50 18:51:00* Test Item Value Reference Range Interpretation Comments Sodium Level (test code = 2951-2) 141 136-145 [facility] HospitalPotassium Qbgtf0448-63-58 18:51:00* Test Item Value Reference Range Interpretation Comments Potassium Level (test code = 2823-3) 4.1 3.5-5.1 [facility] HospitalChloride Zguwm4112-42-57 18:51:00* Test Item Value Reference Range Interpretation Comments Chloride Level (test code = 2075-0) 109 98-107 H [facility] HospitalCarbon Dioxide Zmsbp2045-36-01 18:51:00* Test Item Value Reference Range Interpretation Comments Carbon Dioxide Level (test code = 2028-9) 21 22-29 L [facility] HospitalAnion Qmt1430-80-15 18:51:00* Test Item Value Reference Range Interpretation Comments Anion Gap (test code = 68921-9) 15.1 8-16 [facility] HospitalBlood Urea Tltgttcu7433-74-65 18:51:00* Test Item Value Reference Range Interpretation Comments Blood Urea Nitrogen (test code = 3094-0) 10 7-26 [facility] HospitalCreatinine2018-08-21 18:51:00* Test Item Value Reference Range Interpretation Comments Creatinine (test code = 2160-0) 0.74 0.57-1.11 [facility] HospitalBUN/Creatinine Cxtnj8276-01-80 18:51:00* Test Item Value Reference Range Interpretation Comments BUN/Creatinine Ratio (test code = 3097-3) 14 6-25 [facility] HospitalEstimat Glomerular Filtration Rate 2018-02-27 18:51:00* Test Item Value Reference Range Interpretation Comments Estimat Glomerular Filtration Rate (test code = 56951-3) 60- >60 Ranges were taken from the National Kidney Disease Education Program and the [facility] Foundation literature.Reference ranges:60 or greater: Copfdc91-31 ( for 3 consecutive months): Chronic kidney disease 15 or less: Kidney failureHouston [facility] West HospitalGlucose Relad5751-86-88 18:51:00* Test Item Value Reference Range Interpretation Comments Glucose Level (test code = UWC8837) 101 74-118 [facility] HospitalCalcium Fbzgc2995-38-44 18:51:00* Test Item Value Reference Range Interpretation Comments Calcium Level (test code = 43393-1) 10.0 8.4-10.2 [facility] HospitalTotal Qteuulefy7040-71-87 18:51:00* Test Item Value Reference Range Interpretation Comments Total Bilirubin (test code = 1975-2) 0.3 0.2-1.2 [facility] HospitalAspartate Amino Transf (AST/SGOT) 2018-02-27 18:51:00* Test Item Value Reference Range Interpretation Comments Aspartate Amino Transf (AST/SGOT) (test code = Aspartate Amino Transf (AST/SGOT)) 33 5-34 [facility] HospitalAlanine Aminotransferase (ALT/SGPT) 2018-02-27 18:51:00* Test Item Value Reference Range Interpretation Comments Alanine Aminotransferase (ALT/SGPT) (test code = 1742-6) 34 0-55 [facility] HospitalTotal Hvoepdz8669-46-93 18:51:00* Test Item Value Reference Range Interpretation Comments Total Protein (test code = 2885-2) 8.1 6.5-8.1 [facility] HospitalAlbumin2018-08-21 18:51:00* Test Item Value Reference Range Interpretation Comments Albumin (test code = 1751-7) 4.3 3.5-5.0 [facility] HospitalGlobulin2018-08-21 18:51:00* Test Item Value Reference Range Interpretation Comments Globulin (test code = 41082-8) 3.8 2.3-3.5 H [facility] HospitalAlbumin/Globulin Yxisr9482-81-82 18:51:00 * Test Item Value Reference Range Interpretation Comments Albumin/Globulin Ratio (test code = 1759-0) 1.1 0.8-2.0 [facility] HospitalAlkaline Nuboyqvsbgx7283-53-25 18:51:00* Test Item Value Reference Range Interpretation Comments Alkaline Phosphatase (test code = 6768-6) 128 40-150 [facility] HospitalUrine HMP2842-38-37 18:43:00* Test Item Value Reference Range Interpretation Comments Urine WBC (test code = 5821-4) NONE 0-5 [facility] HospitalUrine ULJ4126-26-73 18:43:00* Test Item Value Reference Range Interpretation Comments Urine RBC (test code = 59856-8) NONE 0-5 [facility] HospitalUrine Nsscxlyk4730-20-30 18:43:00* Test Item Value Reference Range Interpretation Comments Urine Bacteria (test code = 96457-8) MANY NONE [facility] Epithelial Dxinr0162-08-95 18:43:00 * Test Item Value Reference Range Interpretation Comments Urine Epithelial Cells (test code = 39012-6) MODERATE [facility] Transitional Epithelial Cells 2018-02-27 18:43:00* Test Item Value Reference Range Interpretation Comments Urine Transitional Epithelial Cells (test code = 8249-5) FEW NONE [facility] HospitalU[facility] Transitional Epithelial Cells 2018-02-27 18:43:00* Test Item Value Reference Range Interpretation Comments Urine Transitional Epithelial Cells (test code = 8249-5) FEW NONE [facility] HospitalU[facility] Transitional Epithelial Cells 2018-02-27 18:43:00* Test Item Value Reference Range Interpretation Comments Urine Transitional Epithelial Cells (test code = 8249-5) FEW NONE [facility] HospitalU[facility] Transitional Epithelial Cells 2018-02-27 18:43:00* Test Item Value Reference Range Interpretation Comments Urine Transitional Epithelial Cells (test code = 8249-5) FEW NONE [facility] Transitional Epithelial Cells 2018-02-27 18:43:00* Test Item Value Reference Range Interpretation Comments Urine Transitional Epithelial Cells (test code = 8249-5) FEW NONE [facility] HospitalU[facility] Transitional Epithelial Cells 2018-02-27 18:43:00* Test Item Value Reference Range Interpretation Comments Urine Transitional Epithelial Cells (test code = 8249-5) FEW NONE [facility] HospitalU[facility] Transitional Epithelial Cells 2018-02-27 18:43:00* Test Item Value Reference Range Interpretation Comments Urine Transitional Epithelial Cells (test code = 8249-5) FEW NONE [facility] HospitalU[facility] Transitional Epithelial Cells 2018-02-27 18:43:00* Test Item Value Reference Range Interpretation Comments Urine Transitional Epithelial Cells (test code = 8249-5) FEW NONE H [facility] HospitalWhite Blood Jsdce5870-82-96 18:38:00* Test Item Value Reference Range Interpretation Comments White Blood Count (test code = 6690-2) 2.59 4.8-10.8 L [facility] HospitalRed Blood Mpitf8756-66-45 18:38:00* Test Item Value Reference Range Interpretation Comments Red Blood Count (test code = 789-8) 3.98 3.6-5.1 [facility] HospitalHemoglobin2018-08-21 18:38:00* Test Item Value Reference Range Interpretation Comments Hemoglobin (test code = 68443-9) 10.0 12.0-16.0 L [facility] HospitalHematocrit2018-08-21 18:38:00* Test Item Value Reference Range Interpretation Comments Hematocrit (test code = 4544-3) 31.8 34.2-44.1 L [facility] HospitalMean Corpuscular Amxrql1025-75-80 18:38:00* Test Item Value Reference Range Interpretation Comments Mean Corpuscular Volume (test code = 787-2) 79.9 81-99 L [facility] HospitalMean Corpuscular Uhsuevbbpd1339-29-37 18:38:00* Test Item Value Reference Range Interpretation Comments Mean Corpuscular Hemoglobin (test code = 785-6) 25.1 28-32 L [facility] HospitalMean Corpuscular Hemoglobin Concent 2018-02-27 18:38:00* Test Item Value Reference Range Interpretation Comments Mean Corpuscular Hemoglobin Concent (test code = 786-4) 31.4 31-35 [facility] HospitalRed Cell Distribution Uwibs5116-04-24 18:38:00* Test Item Value Reference Range Interpretation Comments Red Cell Distribution Width (test code = 75727-9) 19.0 11.7 -14.4 H [facility] HospitalPlatelet Qaubt6695-68-82 18:38:00* Test Item Value Reference Range Interpretation Comments Platelet Count (test code = 777-3) 161 140-360 [facility] HospitalNeutrophils (%) (Auto)2018-02-27 18:38:00 * Test Item Value Reference Range Interpretation Comments Neutrophils (%) (Auto) (test code = 86083-6) 24.3 38.7-80.0 L [facility] HospitalLymphocytes (%) (Auto)2018-02-27 18:38:00 * Test Item Value Reference Range Interpretation Comments Lymphocytes (%) (Auto) (test code = 736-9) 55.2 18.0-39.1 H [facility] HospitalMonocytes (%) (Auto)2018-02-27 18:38:00* Test Item Value Reference Range Interpretation Comments Monocytes (%) (Auto) (test code = 5905-5) 10.0 4.4-11.3 [facility] HospitalEosinophils (%) (Auto)2018-02-27 18:38:00 * Test Item Value Reference Range Interpretation Comments Eosinophils (%) (Auto) (test code = 713-8) 9.7 0.0-6.0 H [facility] HospitalBasophils (%) (Auto)2018-02-27 18:38:00* Test Item Value Reference Range Interpretation Comments Basophils (%) (Auto) (test code = 706-2) 0.4 0.0-1.0 [facility] HospitalIM GRANULOCYTES %2018-02-27 18:38:00* Test Item Value Reference Range Interpretation Comments IM GRANULOCYTES % (test code = IM GRANULOCYTES %) 0.4 0.0- 1.0 [facility] HospitalNeutrophils # (Auto)2018-02-27 18:38:00* Test Item Value Reference Range Interpretation Comments Neutrophils # (Auto) (test code = 751-8) 0.6 2.1-6.9 L [facility] HospitalLymphocytes # (Auto)2018-02-27 18:38:00* Test Item Value Reference Range Interpretation Comments Lymphocytes # (Auto) (test code = 89340-6) 1.4 1.0-3.2 [facility] HospitalMonocytes # (Auto)2018-02-27 18:38:00* Test Item Value Reference Range Interpretation Comments Monocytes # (Auto) (test code = 742-7) 0.3 0.2-0.8 [facility] HospitalEosinophils # (Auto)2018-02-27 18:38:00* Test Item Value Reference Range Interpretation Comments Eosinophils # (Auto) (test code = 711-2) 0.3 0.0-0.4 [facility] HospitalBasophils # (Auto)2018-02-27 18:38:00* Test Item Value Reference Range Interpretation Comments Basophils # (Auto) (test code = 704-7) 0.0 0.0-0.1 [facility] HospitalAbsolute Immature Granulocyte (auto 2018-02-27 18:38:00* Test Item Value Reference Range Interpretation Comments Absolute Immature Granulocyte (auto (may t code = Absolute Immature Granulocyte (auto) 0.01 0-0.1 [facility] HospitalUrine Evzwy1313-52-39 18:26:00* Test Item Value Reference Range Interpretation Comments Urine Color (test code = 5778-6) ORANGE YELLOW H [facility] HospitalUrine Pscmqpd3286-63-78 18:26:00* Test Item Value Reference Range Interpretation Comments Urine Clarity (test code = 77227-1) HAZY CLEAR [facility] HospitalUrine Specific Uqfitto2728-88-19 18:26:00 * Test Item Value Reference Range Interpretation Comments Urine Specific [place] (test code = 5811-5) 1.020 1.010-1.02 5 [facility] HospitalUrine kB2268-00-52 18:26:00* Test Item Value Reference Range Interpretation Comments Urine pH (test code = 35047-4) 6 5-7 [facility] HospitalUrine Leukocyte Uriazcjw1987-72-67 18:26:00* Test Item Value Reference Range Interpretation Comments Urine Leukocyte Esterase (test code = 5799-2) NEGATIVE NEGATIVE [facility] HospitalUrine Wqxdsod0181-69-11 18:26:00* Test Item Value Reference Range Interpretation Comments Urine Nitrite (test code = 32817-9) POSITIVE NEGATIVE H [facility] HospitalUrine Mqducpo3793-79-71 18:26:00* Test Item Value Reference Range Interpretation Comments Urine Protein (test code = 5804-0) 1+ NEGATIVE H [facility] HospitalUrine Glucose (UA)2018-02-27 18:26:00* Test Item Value Reference Range Interpretation Comments Urine Glucose (UA) (test code = 2349-9) 2+ NEGATIVE H [facility] HospitalUrine Byuifdp5005-64-09 18:26:00* Test Item Value Reference Range Interpretation Comments Urine Ketones (test code = 76680-1) NEGATIVE NEGATIVE [facility] HospitalUrine Ydpmyfgdwixo6251-71-13 18:26:00* Test Item Value Reference Range Interpretation Comments Urine Urobilinogen (test code = 44273-0) 1 0.2-1 [facility] HospitalUrine Bhiszjtps5551-80-78 18:26:00* Test Item Value Reference Range Interpretation Comments Urine Bilirubin (test code = 1978-6) NEGATIVE NEGATIVE [facility] HospitalUrine [place]6827-57-69 18:26:00* Test Item Value Reference Range Interpretation Comments Urine Blood (test code = 54821-5) NEGATIVE NEGATIVE [facility] HospitalUrine Yxec8939-64-46 18:26:00* Test Item Value Reference Range Interpretation Comments Urine Test (test code = 2106-3) NEGATIVE NEGATIVE [facility] Svxym6669-09-75 18:54:00* Test Item Value Reference Range Interpretation Comments Sodium Level (test code = 2951-2) 141 136-145 [facility] HospitalPotassium Yviwt3033-61-15 18:54:00* Test Item Value Reference Range Interpretation Comments Potassium Level (test code = 2823-3) 3.6 3.5-5.1 [facility] HospitalChloride Lzswn3979-87-56 18:54:00* Test Item Value Reference Range Interpretation Comments Chloride Level (test code = 2075-0) 112 98-107 H [facility] HospitalCarbon Dioxide Mgjvj0882-43-31 18:54:00* Test Item Value Reference Range Interpretation Comments Carbon Dioxide Level (test code = 2028-9) 18 22-29 L [facility] HospitalAnion Piy8796-56-21 18:54:00* Test Item Value Reference Range Interpretation Comments Anion Gap (test code = 20016-9) 14.6 8-16 [facility] HospitalBlood Urea Mmxlhojm3332-60-34 18:54:00* Test Item Value Reference Range Interpretation Comments Blood Urea Nitrogen (test code = 3094-0) 15 7-26 [facility] HospitalCreatinine2018-08-07 18:54:00* Test Item Value Reference Range Interpretation Comments Creatinine (test code = 2160-0) 0.76 0.57-1.11 [facility] HospitalBUN/Creatinine Rxzij8406-08-16 18:54:00* Test Item Value Reference Range Interpretation Comments BUN/Creatinine Ratio (test code = 3097-3) 20 6-25 [facility] HospitalEstimat Glomerular Filtration Rate 2018-02-13 18:54:00* Test Item Value Reference Range Interpretation Comments Estimat Glomerular Filtration Rate (test code = 00647-1) 60- >60 Ranges were taken from the National Kidney Disease Education Program and the [facility] literature.Reference ranges:60 or greater: Ebeyqf73-37 ( for 3 consecutive months): Chronic kidney disease 15 or less: Kidney failureHouston [facility] HospitalGlucose Thlgn9733-08-27 18:54:00* Test Item Value Reference Range Interpretation Comments Glucose Level (test code = EAG1851) 110 74-118 [facility] HospitalCalcium Nekkg2704-50-92 18:54:00* Test Item Value Reference Range Interpretation Comments Calcium Level (test code = 72611-5) 9.9 8.4-10.2 [facility] HospitalTotal Zhwlnypgt3823-80-02 18:54:00* Test Item Value Reference Range Interpretation Comments Total Bilirubin (test code = 1975-2) 0.4 0.2-1.2 [facility] HospitalAspartate Amino Transf (AST/SGOT) 2018-02-13 18:54:00* Test Item Value Reference Range Interpretation Comments Aspartate Amino Transf (AST/SGOT) (test code = Aspartate Amino Transf (AST/SGOT)) 66 5-34 H [facility] HospitalAlanine Aminotransferase (ALT/SGPT) 2018-02-13 18:54:00* Test Item Value Reference Range Interpretation Comments Alanine Aminotransferase (ALT/SGPT) (test code = 1742-6) 169 0-55 H [facility] HospitalTotal Vfdnzyl2782-06-84 18:54:00* Test Item Value Reference Range Interpretation Comments Total Protein (test code = 2885-2) 7.9 6.5-8.1 [facility] HospitalAlbumin2018-08-07 18:54:00* Test Item Value Reference Range Interpretation Comments Albumin (test code = 1751-7) 4.0 3.5-5.0 [facility] HospitalGlobulin2018-08-07 18:54:00* Test Item Value Reference Range Interpretation Comments Globulin (test code = 03192-4) 3.9 2.3-3.5 H [facility] HospitalAlbumin/Globulin Dsozj1123-63-88 18:54:00 * Test Item Value Reference Range Interpretation Comments Albumin/Globulin Ratio (test code = 1759-0) 1.0 0.8-2.0 [facility] HospitalAlkaline Zpzcdfaaqei3162-04-81 18:54:00* Test Item Value Reference Range Interpretation Comments Alkaline Phosphatase (test code = 6768-6) 139 40-150 [facility] HospitalLipase2018-08-07 18:54:00* Test Item Value Reference Range Interpretation Comments Lipase (test code = 3040-3) 12 8-78 [facility] HospitalWhite Blood Jwetr0819-76-33 18:39:00* Test Item Value Reference Range Interpretation Comments White Blood Count (test code = 6690-2) 4.59 4.8-10.8 L [facility] HospitalRed Blood Kprge5097-56-39 18:39:00* Test Item Value Reference Range Interpretation Comments Red Blood Count (test code = 789-8) 3.89 3.6-5.1 [facility] HospitalHemoglobin2018-08-07 18:39:00* Test Item Value Reference Range Interpretation Comments Hemoglobin (test code = 69079-8) 9.7 12.0-16.0 L [facility] HospitalHematocrit2018-08-07 18:39:00* Test Item Value Reference Range Interpretation Comments Hematocrit (test code = 4544-3) 32.9 34.2-44.1 L [facility] HospitalMean Corpuscular Mbdrgv1552-22-71 18:39:00* Test Item Value Reference Range Interpretation Comments Mean Corpuscular Volume (test code = 787-2) 84.6 81-99 [facility] HospitalMean Corpuscular Tquwdsdbve3165-58-63 18:39:00* Test Item Value Reference Range Interpretation Comments Mean Corpuscular Hemoglobin (test code = 785-6) 24.9 28-32 L [facility] HospitalMean Corpuscular Hemoglobin Concent 2018-02-13 18:39:00* Test Item Value Reference Range Interpretation Comments Mean Corpuscular Hemoglobin Concent (test code = 786-4) 29.5 31-35 L [facility] HospitalRed Cell Distribution Xtepp9980-42-19 18:39:00* Test Item Value Reference Range Interpretation Comments Red Cell Distribution Width (test code = 75513-9) 21.3 11.7 -14.4 H [facility] HospitalPlatelet Rvprb9571-31-72 18:39:00* Test Item Value Reference Range Interpretation Comments Platelet Count (test code = 777-3) 232 140-360 [facility] HospitalNeutrophils (%) (Auto)2018-02-13 18:39:00 * Test Item Value Reference Range Interpretation Comments Neutrophils (%) (Auto) (test code = 57333-5) 55.9 38.7-80.0 [facility] HospitalLymphocytes (%) (Auto)2018-02-13 18:39:00 * Test Item Value Reference Range Interpretation Comments Lymphocytes (%) (Auto) (test code = 736-9) 32.2 18.0-39.1 [facility] HospitalMonocytes (%) (Auto)2018-02-13 18:39:00* Test Item Value Reference Range Interpretation Comments Monocytes (%) (Auto) (test code = 5905-5) 9.6 4.4-11.3 [facility] HospitalEosinophils (%) (Auto)2018-02-13 18:39:00 * Test Item Value Reference Range Interpretation Comments Eosinophils (%) (Auto) (test code = 713-8) 1.7 0.0-6.0 [facility] HospitalBasophils (%) (Auto)2018-02-13 18:39:00* Test Item Value Reference Range Interpretation Comments Basophils (%) (Auto) (test code = 706-2) 0.4 0.0-1.0 [facility] HospitalIM GRANULOCYTES %2018-02-13 18:39:00* Test Item Value Reference Range Interpretation Comments IM GRANULOCYTES % (test code = IM GRANULOCYTES %) 0.2 0.0- 1.0 [facility] HospitalNeutrophils # (Auto)2018-02-13 18:39:00* Test Item Value Reference Range Interpretation Comments Neutrophils # (Auto) (test code = 751-8) 2.6 2.1-6.9 [facility] HospitalLymphocytes # (Auto)2018-02-13 18:39:00* Test Item Value Reference Range Interpretation Comments Lymphocytes # (Auto) (test code = 17486-8) 1.5 1.0-3.2 [facility] HospitalMonocytes # (Auto)2018-02-13 18:39:00* Test Item Value Reference Range Interpretation Comments Monocytes # (Auto) (test code = 742-7) 0.4 0.2-0.8 [facility] HospitalEosinophils # (Auto)2018-02-13 18:39:00* Test Item Value Reference Range Interpretation Comments Eosinophils # (Auto) (test code = 711-2) 0.1 0.0-0.4 [facility] HospitalBasophils # (Auto)2018-02-13 18:39:00* Test Item Value Reference Range Interpretation Comments Basophils # (Auto) (test code = 704-7) 0.0 0.0-0.1 [facility] HospitalAbsolute Immature Granulocyte (auto 2018-02-13 18:39:00* Test Item Value Reference Range Interpretation Comments Absolute Immature Granulocyte (auto (may t code = Absolute Immature Granulocyte (auto) 0.01 0-0.1 [facility] HospitalUrine Lftp3183-88-34 18:36:00* Test Item Value Reference Range Interpretation Comments Urine Test (test code = 2106-3) [facility]IVE [facility] 17:54:00 [place] [address] Patient Name: BELIA VIGIL MR #: [id number] : 1980 Age/Sex: 37/F Req #: [id number] Adm Physician: Ordered by: BLADIMIR NAGEL MD Report #: [id number] Location: ER Room /Bed: Procedure: [id number] DX/ABDOMEN-1VIEW (KUB) Ex am Date: Exam Time: [...] on 02/13/181753 COPY TO: BLADIMIR NAGEL MD Urine [id number] 17:08:00 * Test Item Value Reference Range Interpretation Comments Urine WBC (test code = 5821-4) 6-10 0-5 H [facility] [id number] 17:08:00* Test Item Value Reference Range Interpretation Comments Urine RBC (test code = 50092-8) 0-5 0-5 [facility] [id number] 17:08:00* Test Item Value Reference Range Interpretation Comments Urine Bacteria (test code = 44148-6) FEW NONE [facility] Epithelial [id number] 17:08:00 * Test Item Value Reference Range Interpretation Comments Urine Epithelial Cells (test code = 79322-4) FEW NONE [facility] [id number] 17:08:00* Test Item Value Reference Range Interpretation Comments Urine Mucus (test code = 8247-9) [facility] [id number] 17:08:00* Test Item Value Reference Range Interpretation Comments Urine Mucus (test code = 8247-9) [facility] [id number] 17:08:00* Test Item Value Reference Range Interpretation Comments Urine [facility]uc[facility] (test code = 8247-9) [facility] [id number] 17:08:00* Test Item Value Reference Range Interpretation Comments Urine Mucus (test code = 8247-9) [facility] [id number] 17:08:00* Test Item Value Reference Range Interpretation Comments Urine Mucus (test code = 8247-9) [facility] [id number] 17:08:00* Test Item Value Reference Range Interpretation Comments Urine Mucus (test code = 8247-9) RARE RARE [facility] Eoqlz1349-40-78 17:08:00* Test Item Value Reference Range Interpretation Comments Urine Mucus (test code = 8247-9) RARE [facility] [id number] 17:08:00* Test Item Value Reference Range Interpretation Comments Urine Mucus (test code = 8247-9) RARE [facility] Theah8780-73-87 17:08:00* Test Item Value Reference Range Interpretation Comments Urine Mucus (test code = 8247-9) RARE RARE [facility] [id number] 17:04:00* Test Item Value Reference Range Interpretation Comments Urine Color (test code = 5778-6) YELLOW YELLOW [facility] Gjivytk6528-92-43 17:04:00* Test Item Value Reference Range Interpretation Comments Urine Clarity (test code = 17927-5) CLEAR CLEAR [facility] Specific Zfhhgep3796-90-77 17:04:00 * Test Item Value Reference Range Interpretation Comments Urine Specific [place] (test code = 5811-5) 1.015 1.010-1.02 5 [facility] [id number] 17:04:00* Test Item Value Reference Range Interpretation Comments Urine pH (test code = 10910-4) 6.5 5-7 [facility] Leukocyte Aocpsrwh8037-86-04 17:04:00* Test Item Value Reference Range Interpretation Comments Urine Leukocyte Esterase (test code = 5799-2) NEGATIVE [facility]GATIVE [facility] Fjolarz7572-05-89 17:04:00* Test Item Value Reference Range Interpretation Comments Urine Nitrite (test code = 00274-7) NEGATIVE [facility]IVE [facility] Ujxqapt9718-41-88 17:04:00* Test Item Value Reference Range Interpretation Comments Urine Protein (test code = 5804-0) NEGATIVE NEGATIVE [facility] Glucose (UA)2018-02-13 17:04:00* Test Item Value Reference Range Interpretation Comments Urine Glucose (UA) (test code = 2349-9) NEGATIVE [facility]GATIVE [facility] Pfbihhx3403-07-67 17:04:00* Test Item Value Reference Range Interpretation Comments Urine Ketones (test code = 63566-6) NEGATIVE [facility]GATIVE [facility] Esnloerkjbtq6037-15-44 17:04:00* Test Item Value Reference Range Interpretation Comments Urine Urobilinogen (test code = 10592-4) 0.2 0.2-1 [facility] Ifjcskfrx6503-37-43 17:04:00* Test Item Value Reference Range Interpretation Comments Urine Bilirubin (test code = 1978-6) NEGATIVE NEGATIVE [facility] Yfbmv4060-19-09 17:04:00* Test Item Value Reference Range Interpretation Comments Urine Blood (test code = 37738-4) NEGATIVE NEGATIVE [facility] [id number] 16:19:00Surgical Pathology Report Case: [id number] Authorizing Provider: Bernard Luciano MD Collected: 02/07/2018 1159 Ordering Location: [address] Received: 02/08/2018 0748 SERVICE Pathologist: Anel Ritchie MD Specimen: Large Intestine, Colon - Sigmoid, cold bx COLON, SIGMOID, RANDOM ENDOSCOPIC BIOPSY: - NO PATHOLOGIC ALTERATION - NO ARCHITECTURAL DISTORTION SEEN - NO I NCREASED CHRONIC INFLAMMATION, GRANULOMAS ,VIRAL INCLUSIONS, DYSPLASIA OR MALIGN KAMERON PRESENT Signing Pathologist Direct Phone Line: [phone] lly signed by Anel Rtichie MD on 02/09/2018 at 4:19 [id number] Sigmoid colon biopsy The specimen is received in a formalin-filled container lab eled with the patient's information and labeled "sigmoid colon biopsy" and consi sts of three round fragments of bell tissue ranging from 0.1 to 0.3 cm, submitted in A1. CG/ew PERFORMEDBLOOD [id number] 00:00:00* Test Item Value Reference Range Interpretation Comments CULTURE (BEAKER) (test code = 1095) No growth in 5 days BLOOD [id number] 00:00:00* Test Item Value Reference Range Interpretation Comments CULTURE (BEAKER) (test code = 1095) No growth in 5 days CBC W/PLT COUNT & AUTO [id number] 10:20:00* Test Item Value Reference Range Interpretation Comments WHITE BLOOD CELL COUNT (BEAKER) (test code = 775) 3.4 K/ L 3.5- 10.5 L RED BLOOD CELL COUNT (BEAKER) (test code = 761) 3.54 M/ L 3.93-5 .22 L HEMOGLOBIN (BEAKER) (test code = 410) 8.9 GM/DL 11.2-15.7 L HEMATOCRIT (BEAKER) (test code = 411) 29.6 % 34.1-44.9 L MEAN CORPUSCULAR VOLUME (BEAKER) (test code = 753) 83.6 fL 79. 4-94.8 MEAN CORPUSCULAR HEMOGLOBIN (BEAKER) (test code = 751) 25.1 pg 25.6-32.2 L MEAN CORPUSCULAR HEMOGLOBIN CONC (BEAKER) (test code = 752) 30.1 GM/DL 32.2-35.5 L RED CELL DISTRIBUTION WIDTH (BEAKER) (test code = 412) 21.0 % 11.7-14.4 H PLATELET COUNT (BEAKER) (test code = 756) 217 K/CU MM 150-450 MEAN PLATELET VOLUME (BEAKER) (test code = 754) 10.6 fL 9.4-12 .3 NUCLEATED RED BLOOD CELLS (BEAKER) (test code = 413) 1 /100 WBC 0 -0 H (CELLAVISION MANUAL DIFF)2018-02-07 10:20:00* Test Item Value Reference Range Interpretation Comments NEUTROPHILS - REL (CELLAVISION)(BEAKER) (test code = 2816) 42 % LYMPHOCYTES - REL (CELLAVISION)(BEAKER) (test code = 2817) 34 % MONOCYTES - REL (CELLAVISION)(BEAKER) (test code = 2818) 15 % EOSINOPHILS - REL (CELLAVISION)(BEAKER) (test code = 2819) 7 % ATYPICAL LYMPHOCYTES - REL (CELLAVISION)(BEAKER) (test code = 2829) 1 % 0-0 H NEUTROPHILS - ABS (CELLAVISION)(BEAKER) (test code = 2830) 1.43 K/ul 1.56-6.13 L LYMPHOCYTES - ABS (CELLAVISION)(BEAKER) (test code = 2831) 1.16 K/ul 1.18-3.74 L MONOCYTES - ABS (CELLAVISION)(BEAKER) (test code = 2832) 0.51 K/uL 0.24-0.36 H EOSINOPHILS - ABS (CELLAVISION)(BEAKER) (test code = 2834) 0.24 K/uL 0.04-0.36 ATYPICAL LYMPHOCYTES - ABS (CELLAVISION)(BEAKER) (test code = 2858) 0.03 K/uL 0.00-0.00 H TOTAL COUNTED (BEAKER) (test code = 1351) 100 MANUAL NRBC PER 100 CELLS (BEAKER) (test code = 1353) 1 /100 WBC 0-0 H WBC MORPHOLOGY (BEAKER) (test code = 487) Normal PLT MORPHOLOGY (BEAKER) (test code = 486) Normal POLYCHROMATOPHILLIC RBCS(BEAKER) (test code = 478) 1+ few OVALOCYTES (BEAKER) (test code = 477) 2+ moderate TEAR DROP CELLS (BEAKER) (test code = 481) 1+ few ARTIFACT (CELLAVISION)(BEAKER) (test code = 3432) Present PLATELET CONCENTRATION (CELLAVISION)(BEAKER) (test code = 3438) Theresa quate Received comment: User comments: Slide comments: [id number] 06:09:00* Test Item Value Reference Range Interpretation Comments MAGNESIUM (BEAKER) (test code = 627) 2.1 mg/dL 1.6-2.6 COMPREHENSIVE METABOLIC [id number] 06:09:00* Test Item Value Reference Range Interpretation Comments TOTAL PROTEIN (BEAKER) (test code = 770) 7.2 gm/dL 6.0-8.3 ALBUMIN (BEAKER) (test code = 1145) 3.9 g/dL 3.5-5.0 ALKALINE PHOSPHATASE (BEAKER) (test code = 346) 147 U/L 40-150 BILIRUBIN TOTAL (BEAKER) (test code = 377) 0.2 mg/dL 0.2-1.2 SODIUM (BEAKER) (test code = 381) 137 meq/L 136-145 POTASSIUM (BEAKER) (test code = 379) 3.9 meq/L 3.5-5.1 CHLORIDE (BEAKER) (test code = 382) 105 meq/L 98-107 CO2 (BEAKER) (test code = 355) 24 meq/L 22-29 BLOOD UREA NITROGEN (BEAKER) (test code = 354) 9 mg/dL 7-21 CREATININE (BEAKER) (test code = 358) 0.67 mg/dL 0.57-1.25 GLUCOSE RANDOM (BEAKER) (test code = 652) 120 mg/dL 70-105 H CALCIUM (BEAKER) (test code = 697) 9.5 mg/dL 8.4-10.2 AST (SGOT) (BEAKER) (test code = 353) 77 U/L 5-34 H ALT (SGPT) (BEAKER) (test code = 347) 49 U/L 6-55 EGFR (BEAKER) (test code = 1092) 99 mL/min/1.73 sq m ESTIMATED GFR IS NOT ACCURATE CREATININE CLEARANCE IN PREDICTING GLOMERULAR FILTRATION RATE. ESTIMATED GFR IS NOT APPLICABLE FOR DIALYSIS PATIENTS. [id number] 05:45:00* Test Item Value Reference Range Interpretation Comments PHOSPHORUS (BEAKER) (test code = 604) 3.9 mg/dL 2.3-4.7 [id number] 05:45:00* Test Item Value Reference Range Interpretation Comments MAGNESIUM (BEAKER) (test code = 627) 2.5 mg/dL 1.6-2.6 COMPREHENSIVE METABOLIC [id number] 05:45:00* Test Item Value Reference Range Interpretation Comments TOTAL PROTEIN (BEAKER) (test code = 770) 7.9 gm/dL 6.0-8.3 ALBUMIN (BEAKER) (test code = 1145) 3.8 g/dL 3.5-5.0 ALKALINE PHOSPHATASE (BEAKER) (test code = 346) 158 U/L 40-150 H BILIRUBIN TOTAL (BEAKER) (test code = 377) 0.2 mg/dL 0.2-1.2 SODIUM (BEAKER) (test code = 381) 136 meq/L 136-145 POTASSIUM (BEAKER) (test code = 379) 4.1 meq/L 3.5-5.1 CHLORIDE (BEAKER) (test code = 382) 106 meq/L 98-107 CO2 (BEAKER) (test code = 355) 19 meq/L 22-29 L BLOOD UREA NITROGEN (BEAKER) (test code = 354) 11 mg/dL 7-21 CREATININE (BEAKER) (test code = 358) 0.66 mg/dL 0.57-1.25 GLUCOSE RANDOM (BEAKER) (test code = 652) 99 mg/dL 70-105 CALCIUM (BEAKER) (test code = 697) 9.4 mg/dL 8.4-10.2 AST (SGOT) (BEAKER) (test code = 353) 45 U/L 5-34 H ALT (SGPT) (BEAKER) (test code = 347) 33 U/L 6-55 EGFR (BEAKER) (test code = 1092) 100 mL/min/1.73 sq m ESTIMATED GFR IS NOT ACCURATE CREATININE CLEARANCE IN PREDICTING GLOMERULAR FILTRATION RATE. ESTIMATED GFR IS NOT APPLICABLE FOR DIALYSIS PATIENTS. Specimen markedly lipemicCBC W/PLT COUNT & AUTO [id number] 05:22:00 * Test Item Value Reference Range Interpretation Comments WHITE BLOOD CELL COUNT (BEAKER) (test code = 775) 3.8 K/ L 3.5- 10.5 RED BLOOD CELL COUNT (BEAKER) (test code = 761) 3.49 M/ L 3.93-5 .22 L HEMOGLOBIN (BEAKER) (test code = 410) 8.9 GM/DL 11.2-15.7 L HEMATOCRIT (BEAKER) (test code = 411) 28.9 % 34.1-44.9 L MEAN CORPUSCULAR VOLUME (BEAKER) (test code = 753) 82.8 fL 79. 4-94.8 MEAN CORPUSCULAR HEMOGLOBIN (BEAKER) (test code = 751) 25.5 pg 25.6-32.2 L MEAN CORPUSCULAR HEMOGLOBIN CONC (BEAKER) (test code = 752) 30.8 GM/DL 32.2-35.5 L RED CELL DISTRIBUTION WIDTH (BEAKER) (test code = 412) 21.0 % 11.7-14.4 H PLATELET COUNT (BEAKER) (test code = 756) 264 K/CU MM 150-450 MEAN PLATELET VOLUME (BEAKER) (test code = 754) 10.2 fL 9.4-12 .3 NUCLEATED RED BLOOD CELLS (BEAKER) (test code = 413) 1 /100 WBC 0 -0 H NEUTROPHILS RELATIVE PERCENT (BEAKER) (test code = 429) 28 % LYMPHOCYTES RELATIVE PERCENT (BEAKER) (test code = 430) 42 % MONOCYTES RELATIVE PERCENT (BEAKER) (test code = 431) 18 % EOSINOPHILS RELATIVE PERCENT (BEAKER) (test code = 432) 8 % BASOPHILS RELATIVE PERCENT (BEAKER) (test code = 437) 1 % NEUTROPHILS ABSOLUTE COUNT (BEAKER) (test code = 670) 1.08 K/ L 1.56-6.13 L LYMPHOCYTES ABSOLUTE COUNT (BEAKER) (test code = 414) 1.61 K/ L 1.18-3.74 MONOCYTES ABSOLUTE COUNT (BEAKER) (test code = 415) 0.68 K/ L 0. 24-0.36 H EOSINOPHILS ABSOLUTE COUNT (BEAKER) (test code = 416) 0.30 K/ L 0.04-0.36 BASOPHILS ABSOLUTE COUNT (BEAKER) (test code = 417) 0.02 K/ L 0. 01-0.08 IMMATURE GRANULOCYTES-RELATIVE PERCENT (BEAKER) (test code = 2801) 3 % 0-1 H CALCIUM, [id number] 05:19:00* Test Item Value Reference Range Interpretation Comments CALCIUM IONIZED (BEAKER) (test code = 698) 1.09 mmol/L 1.12-1.27 L PH, BLOOD (BEAKER) (test code = 1810) 7.36 MISCELLANEOUS LAB [id number] 14:37:00* Test Item Value Reference Range Interpretation Comments SCAN RESULT (test code = 3858658) SEE SCANNED RESULTS OCCULT BLOOD, [id number] 23:32:00* Test Item Value Reference Range Interpretation Comments FECAL OCCULT BLOOD (BEAKER) (test code = 618) Negative Negative CBC W/PLT COUNT & AUTO [id number] 09:03:00* Test Item Value Reference Range Interpretation Comments WHITE BLOOD CELL COUNT (BEAKER) (test code = 775) 7.2 K/ L 3.5- 10.5 RED BLOOD CELL COUNT (BEAKER) (test code = 761) 3.31 M/ L 3.93-5 .22 L HEMOGLOBIN (BEAKER) (test code = 410) 8.6 GM/DL 11.2-15.7 L HEMATOCRIT (BEAKER) (test code = 411) 27.0 % 34.1-44.9 L MEAN CORPUSCULAR VOLUME (BEAKER) (test code = 753) 81.6 fL 79. 4-94.8 MEAN CORPUSCULAR HEMOGLOBIN (BEAKER) (test code = 751) 26.0 pg 25.6-32.2 MEAN CORPUSCULAR HEMOGLOBIN CONC (BEAKER) (test code = 752) 31.9 GM/DL 32.2-35.5 L RED CELL DISTRIBUTION WIDTH (BEAKER) (test code = 412) 20.5 % 11.7-14.4 H PLATELET COUNT (BEAKER) (test code = 756) 270 K/CU MM 150-450 MEAN PLATELET VOLUME (BEAKER) (test code = 754) 9.4 fL 9.4-12 .3 NUCLEATED RED BLOOD CELLS (BEAKER) (test code = 413) 1 /100 WBC 0 -0 H (CELLAVISION MANUAL DIFF)2018-02-04 09:03:00* Test Item Value Reference Range Interpretation Comments NEUTROPHILS - REL (CELLAVISION)(BEAKER) (test code = 2816) 60 % LYMPHOCYTES - REL (CELLAVISION)(BEAKER) (test code = 2817) 15 % MONOCYTES - REL (CELLAVISION)(BEAKER) (test code = 2818) 1 % EOSINOPHILS - REL (CELLAVISION)(BEAKER) (test code = 2819) 3 % METAMYELOCYTES - REL (CELLAVISION)(BEAKER) (test code = 2821) 8 % 0-0 H MYELOCYTES - REL (CELLAVISION)(BEAKER) (test code = 2822) 9 % 0-0 H BANDS - REL (CELLAVISION)(BEAKER) (test code = 2826) 3 % 0 -10 ATYPICAL LYMPHOCYTES - REL (CELLAVISION)(BEAKER) (test code = 2829) 1 % 0-0 H NEUTROPHILS - ABS (CELLAVISION)(BEAKER) (test code = 2830) 4.32 K/ul 1.56-6.13 LYMPHOCYTES - ABS (CELLAVISION)(BEAKER) (test code = 2831) 1.08 K/ul 1.18-3.74 L MONOCYTES - ABS (CELLAVISION)(BEAKER) (test code = 2832) 0.07 K/uL 0.24-0.36 L EOSINOPHILS - ABS (CELLAVISION)(BEAKER) (test code = 2834) 0.22 K/uL 0.04-0.36 METAMYELOCYTES - ABS (CELLAVISION)(BEAKER) (test code = 2836 ) 0.58 K/uL 0.00-0.00 H MYELOCYTES-ABS (CELLAVISION)(BEAKER) (test code = 2837) 0.65 K/uL 0.00-0.00 H BANDS - ABS (CELLAVISION)(BEAKER) (test code = 2840) 0.22 K/uL 0 .00-0.80 ATYPICAL LYMPHOCYTES - ABS (CELLAVISION)(BEAKER) (test code = 2858) 0.07 K/uL 0.00-0.00 H TOTAL COUNTED (BEAKER) (test code = 1351) 100 MANUAL NRBC PER 100 CELLS (BEAKER) (test code = 1353) 3 /100 WBC 0-0 H PLT MORPHOLOGY (BEAKER) (test code = 486) Normal SMUDGE CELLS (BEAKER) (test code = 1371) Present ANISOCYTOSIS (BEAKER) (test code = 961) 2+ moderate MICROCYTES (BEAKER) (test code = 965) 2+ moderate POIKILOCYTES (BEAKER) (test code = 966) 3+ many SCHISTOCYTES (BEAKER) (test code = 765) 1+ few OVALOCYTES (BEAKER) (test code = 477) 1+ few ARTIFACT (CELLAVISION)(BEAKER) (test code = 3432) Present PLATELET CONCENTRATION (CELLAVISION)(BEAKER) (test code = 3438) Theresa quate Received comment: User comments: Slide comments: [id number] 05:36:00* Test Item Value Reference Range Interpretation Comments MAGNESIUM (BEAKER) (test code = 627) 2.5 mg/dL 1.6-2.6 Specimen slightly hemolyzed BASIC METABOLIC [id number] 05:36:00* Test Item Value Reference Range Interpretation Comments SODIUM (BEAKER) (test code = 381) 139 meq/L 136-145 POTASSIUM (BEAKER) (test code = 379) 3.9 meq/L 3.5-5.1 Specimen slightly hemolyzed CHLORIDE (BEAKER) (test code = 382) 108 meq/L 98-107 H CO2 (BEAKER) (test code = 355) 21 meq/L 22-29 L BLOOD UREA NITROGEN (BEAKER) (test code = 354) 9 mg/dL 7-21 CREATININE (BEAKER) (test code = 358) 0.66 mg/dL 0.57-1.25 Specimen slightly hemolyzed GLUCOSE RANDOM (BEAKER) (test code = 652) 107 mg/dL 70-105 H CALCIUM (BEAKER) (test code = 697) 9.0 mg/dL 8.4-10.2 EGFR (BEAKER) (test code = 1092) 100 mL/min/1.73 sq m ESTIMATED GFR IS NOT ACCURATE CREATININE CLEARANCE IN PREDICTING GLOMERULAR FILTRATION RATE. ESTIMATED GFR IS NOT APPLICABLE FOR DIALYSIS PATIENTS. CBC W/PLT COUNT & AUTO [id number] 11:01:00* Test Item Value Reference Range Interpretation Comments WHITE BLOOD CELL COUNT (BEAKER) (test code = 775) 10.8 K/ L 3.5- 10.5 H RED BLOOD CELL COUNT (BEAKER) (test code = 761) 3.25 M/ L 3.93-5 .22 L HEMOGLOBIN (BEAKER) (test code = 410) 7.9 GM/DL 11.2-15.7 L HEMATOCRIT (BEAKER) (test code = 411) 26.6 % 34.1-44.9 L MEAN CORPUSCULAR VOLUME (BEAKER) (test code = 753) 81.8 fL 79. 4-94.8 MEAN CORPUSCULAR HEMOGLOBIN (BEAKER) (test code = 751) 24.3 pg 25.6-32.2 L MEAN CORPUSCULAR HEMOGLOBIN CONC (BEAKER) (test code = 752) 29.7 GM/DL 32.2-35.5 L RED CELL DISTRIBUTION WIDTH (BEAKER) (test code = 412) 20.2 % 11.7-14.4 H PLATELET COUNT (BEAKER) (test code = 756) 288 K/CU MM 150-450 MEAN PLATELET VOLUME (BEAKER) (test code = 754) 10.0 fL 9.4-12 .3 NUCLEATED RED BLOOD CELLS (BEAKER) (test code = 413) 1 /100 WBC 0 -0 H (CELLAVISION MANUAL DIFF)2018-02-03 11:01:00* Test Item Value Reference Range Interpretation Comments NEUTROPHILS - REL (CELLAVISION)(BEAKER) (test code = 2816) 57 % LYMPHOCYTES - REL (CELLAVISION)(BEAKER) (test code = 2817) 9 % MONOCYTES - REL (CELLAVISION)(BEAKER) (test code = 2818) 11 % EOSINOPHILS - REL (CELLAVISION)(BEAKER) (test code = 2819) 2 % METAMYELOCYTES - REL (CELLAVISION)(BEAKER) (test code = 2821) 6 % 0-0 H MYELOCYTES - REL (CELLAVISION)(BEAKER) (test code = 2822) 1 % 0-0 H BANDS - REL (CELLAVISION)(BEAKER) (test code = 2826) 14 % 0 -10 H NEUTROPHILS - ABS (CELLAVISION)(BEAKER) (test code = 2830) 6.16 K/ul 1.56-6.13 H LYMPHOCYTES - ABS (CELLAVISION)(BEAKER) (test code = 2831) 0.97 K/ul 1.18-3.74 L MONOCYTES - ABS (CELLAVISION)(BEAKER) (test code = 2832) 1.19 K/uL 0.24-0.36 H EOSINOPHILS - ABS (CELLAVISION)(BEAKER) (test code = 2834) 0.22 K/uL 0.04-0.36 METAMYELOCYTES - ABS (CELLAVISION)(BEAKER) (test code = 2836 ) 0.65 K/uL 0.00-0.00 H MYELOCYTES-ABS (CELLAVISION)(BEAKER) (test code = 2837) 0.11 K/uL 0.00-0.00 H BANDS - ABS (CELLAVISION)(BEAKER) (test code = 2840) 1.51 K/uL 0 .00-0.80 H TOTAL COUNTED (BEAKER) (test code = 1351) 100 WBC MORPHOLOGY (BEAKER) (test code = 487) Normal GIANT PLATELETS (BEAKER) (test code = 313) Present LARGE PLT(BEAKER) (test code = 2156) Present POLYCHROMATOPHILLIC RBCS(BEAKER) (test code = 478) 2+ moderate HYPOCHROMIA (BEAKER) (test code = 963) 1+ few ANISOCYTOSIS (BEAKER) (test code = 961) 2+ moderate MICROCYTES (BEAKER) (test code = 965) 1+ few MACROCYTES (BEAKER) (test code = 964) 2+ moderate POIKILOCYTES (BEAKER) (test code = 966) 2+ moderate SCHISTOCYTES (BEAKER) (test code = 765) 2+ moderate ELLIPTOCYTES (BEAKER) (test code = 962) 2+ moderate OVALOCYTES (BEAKER) (test code = 477) 1+ few TEAR DROP CELLS (BEAKER) (test code = 481) 1+ few ACANTHOCYTES (BEAKER) (test code = 471) 2+ moderate BASOPHILIC STIPPLING (BEAKER) (test code = 473) Present ARTIFACT (CELLAVISION)(BEAKER) (test code = 3432) Present PLATELET CONCENTRATION (CELLAVISION)(BEAKER) (test code = 3438) Theresa quate Received comment: User comments: Slide comments: GI PATHOGEN PROFILE BY PCR 2018-02-03 10:20:00* Test Item Value Reference Range Interpretation Comments CAMPYLOBACTER (PCR) (test code = 9760519) Not detected Not detected, Inconclusive CLOSTRIDIUM DIFFICILE (PCR) (test code = 2126440) Not detected, Inconclusive PLEASE CHECK CDT GDH RESULT. PLESIOMONAS SHIGELLOIDES (PCR) (test code = 6332847) Not det ected Not detected, Inconclusive SALMONELLA (PCR) (test code = 4264647) Not detected Not detec chandler, Inconclusive YERSINIA ENTEROCOLITICA (PCR) (test code = 4075016) Not dete cted Not detected, Inconclusive VIBRIO CHOLERAE (PCR) (test code = 8301399) Not detected Not detected, Inconclusive ENTEROAGGREGATIVE E. COLI (EAEC) BY PCR (test code = 8914139 ) Not detected Not detected, Inconclusive ENTEROPATHOGENIC E. COLI (EPEC) BY PCR (test code = 2749062) Not detected Not detected, Inconclusive ENTEROTOXIGENIC E. COLI (ETEC) LT/ST BY PCR (test code = 6085) Not detected Not detected, Inconclusive SHIGA-LIKE TOXIN-PRODUCING E. COLI (STEC) STX1/STX2 (t est code = 20160213) Not detected Not detected, Inconclusive E. COLI O157 (PCR) (test code = 0431011) Not detected Not detected, Inconclusive SHIGELLA/ENTEROINVASIVE E. COLI (EIEC) BY PCR (test co de = 20160215) Not detected Not detected, Inconclusive CRYPTOSPORIDIUM (PCR) (test code = 20160216) Not detected Not detected, Inconclusive CYCLOSPORA CAYETANENSIS (PCR) (test code = 3222326) Not dete cted Not detected, Inconclusive ENTAMOEBA HISTOLYTICA (PCR) (test code = 3094773) Not detect ed Not detected, Inconclusive GIARDIA LAMBLIA (PCR) (test code = 2475142) Not detected Not detected, Inconclusive ADENOVIRUS F 40/41 (PCR) (test code = 9676941) Not detected Not detected, Inconclusive ASTROVIRUS (PCR) (test code = 9297348) Not detected Not detec chandler, Inconclusive NOROVIRUS GI/GII (PCR) (test code = 9289690) Not detected Not detected, Inconclusive ROTAVIRUS A (PCR) (test code = 9326074) Not detected Not dete cted, Inconclusive SAPOVIRUS (I, II, IV, V) BY PCR (test code = 4505395) Not de tected Not detected, Inconclusive CALCIUM, [id number] 05:36:00* Test Item Value Reference Range Interpretation Comments CALCIUM IONIZED (BEAKER) (test code = 698) 1.10 mmol/L 1.12-1.27 L PH, BLOOD (BEAKER) (test code = 1810) 7.35 [id number] 05:31:00* Test Item Value Reference Range Interpretation Comments PHOSPHORUS (BEAKER) (test code = 604) 2.9 mg/dL 2.3-4.7 [id number] 05:31:00* Test Item Value Reference Range Interpretation Comments MAGNESIUM (BEAKER) (test code = 627) 1.8 mg/dL 1.6-2.6 COMPREHENSIVE METABOLIC [id number] 05:31:00* Test Item Value Reference Range Interpretation Comments TOTAL PROTEIN (BEAKER) (test code = 770) 6.6 gm/dL 6.0-8.3 ALBUMIN (BEAKER) (test code = 1145) 3.6 g/dL 3.5-5.0 ALKALINE PHOSPHATASE (BEAKER) (test code = 346) 164 U/L 40-150 H BILIRUBIN TOTAL (BEAKER) (test code = 377) 0.2 mg/dL 0.2-1.2 SODIUM (BEAKER) (test code = 381) 138 meq/L 136-145 POTASSIUM (BEAKER) (test code = 379) 3.5 meq/L 3.5-5.1 CHLORIDE (BEAKER) (test code = 382) 107 meq/L 98-107 CO2 (BEAKER) (test code = 355) 21 meq/L 22-29 L BLOOD UREA NITROGEN (BEAKER) (test code = 354) 7 mg/dL 7-21 CREATININE (BEAKER) (test code = 358) 0.68 mg/dL 0.57-1.25 GLUCOSE RANDOM (BEAKER) (test code = 652) 133 mg/dL 70-105 H CALCIUM (BEAKER) (test code = 697) 9.0 mg/dL 8.4-10.2 AST (SGOT) (BEAKER) (test code = 353) 48 U/L 5-34 H ALT (SGPT) (BEAKER) (test code = 347) 37 U/L 6-55 EGFR (BEAKER) (test code = 1092) 97 mL/min/1.73 sq m ESTIMATED GFR IS NOT ACCURATE CREATININE CLEARANCE IN PREDICTING GLOMERULAR FILTRATION RATE. ESTIMATED GFR IS NOT APPLICABLE FOR DIALYSIS PATIENTS. POCT-GLUCOSE [id number] 10:24:00* Test Item Value Reference Range Interpretation Comments POC-GLUCOSE METER (BEAKER) (test code = 1538) 101 mg/dL 70-110 TESTED AT [place] [id number] [facility] [address] CBC W/PLT COUNT & AUTO [id number] 09:33:00* Test Item Value Reference Range Interpretation Comments WHITE BLOOD CELL COUNT (BEAKER) (test code = 775) 30.5 K/ L 3.5- 10.5 H RED BLOOD CELL COUNT (BEAKER) (test code = 761) 2.98 M/ L 3.93-5 .22 L HEMOGLOBIN (BEAKER) (test code = 410) 7.5 GM/DL 11.2-15.7 L HEMATOCRIT (BEAKER) (test code = 411) 25.5 % 34.1-44.9 L MEAN CORPUSCULAR VOLUME (BEAKER) (test code = 753) 85.6 fL 79. 4-94.8 MEAN CORPUSCULAR HEMOGLOBIN (BEAKER) (test code = 751) 25.2 pg 25.6-32.2 L MEAN CORPUSCULAR HEMOGLOBIN CONC (BEAKER) (test code = 752) 29.4 GM/DL 32.2-35.5 L RED CELL DISTRIBUTION WIDTH (BEAKER) (test code = 412) 20.7 % 11.7-14.4 H PLATELET COUNT (BEAKER) (test code = 756) 317 K/CU MM 150-450 MEAN PLATELET VOLUME (BEAKER) (test code = 754) 10.6 fL 9.4-12 .3 NUCLEATED RED BLOOD CELLS (BEAKER) (test code = 413) 1 /100 WBC 0 -0 H (MANUAL DIFFERENTIAL)2018-02-02 09:33:00* Test Item Value Reference Range Interpretation Comments NEUTROPHILS - REL (DIFF) (BEAKER) (test code = 1359) 59 % LYMPHOCYTES - REL (DIFF) (BEAKER) (test code = 1360) 12 % MONOCYTES - REL (DIFF) (BEAKER) (test code = 1361) 8 % METAMYELOCYTES-REL (DIFF) (BEAKER) (test code = 258) 1 % 0 -0 H MYELOCYTES-REL (DIFF) (BEAKER) (test code = 1594) 2 % 0-0 H BANDS - REL (DIFF) (BEAKER) (test code = 1348) 18 % 0-10 H NEUTROPHILS - ABS (DIFF) (BEAKER) (test code = 1365) 18.00 K/ L 1 .80-8.00 H LYMPHOCYTES - ABS (DIFF) (BEAKER) (test code = 1366) 3.66 K/ L 1 .48-4.50 MONOCYTES - ABS (DIFF) (BEAKER) (test code = 1367) 2.44 K/ L 0.0 0-1.30 H METAMYELOCTYES - ABS (DIFF) (BEAKER) (test code = 261) 0.31 K/ L 0.00-0.00 H BANDS-ABS (DIFF) (BEAKER) (test code = 1349) 5.5 K/ L 0.0-0.8 H MYELOCYTES-ABS (DIFF) (BEAKER) (test code = 1593) 0.61 K/ L 0.00 -0.00 H TOTAL COUNTED (BEAKER) (test code = 1351) 100 BANDS + SEGMENTED NEUTROPHILS (BEAKER) (test code = 1352) 23.49 MANUAL NRBC PER 100 CELLS (BEAKER) (test code = 1353) 1 /100 WBC 0-0 H WBC MORPHOLOGY (BEAKER) (test code = 487) Normal PLT MORPHOLOGY (BEAKER) (test code = 486) Normal SCHISTOCYTES (BEAKER) (test code = 765) 1+ few ANISOCYTOSIS (BEAKER) (test code = 961) 2+ moderate OVALOCYTES (BEAKER) (test code = 477) 2+ moderate POIKILOCYTES (BEAKER) (test code = 966) 1+ few TEAR DROP CELLS (BEAKER) (test code = 481) 1+ few C. DIFFICILE GDH [id number] 09:19:00* Test Item Value Reference Range Interpretation Comments CDT TOXIN (test code = 6362176186) Negative Negative CDT GDH ANTIGEN (test code = 1247098629) Negative Negative No indication of Clostridium difficile infection and no colonization. Discontinue enteric isolation and therapy. Testing performed by Ale[employer] Rapid Cassette Assay. For GDH, published sensitivity of the assay is 98.7% compared to cytotoxicity testing. For Toxin AB, publishe d sensitivity is 87.8% and specificity 99.4% compared to cytotoxicity testing.Ve rification of kit performance was done by the [facility] Microbiology Lab prior to cl inical use.BASIC METABOLIC [id number] 08:25:00* Test Item Value Reference Range Interpretation Comments SODIUM (BEAKER) (test code = 381) 145 meq/L 136-145 POTASSIUM (BEAKER) (test code = 379) 3.3 meq/L 3.5-5.1 L CHLORIDE (BEAKER) (test code = 382) 106 meq/L 98-107 CO2 (BEAKER) (test code = 355) 24 meq/L 22-29 BLOOD UREA NITROGEN (BEAKER) (test code = 354) 6 mg/dL 7-21 L CREATININE (BEAKER) (test code = 358) 0.68 mg/dL 0.57-1.25 GLUCOSE RANDOM (BEAKER) (test code = 652) 38 mg/dL 70-105 LL CALCIUM (BEAKER) (test code = 697) 8.8 mg/dL 8.4-10.2 EGFR (BEAKER) (test code = 1092) 97 mL/min/1.73 sq m ESTIMATED GFR IS NOT ACCURATE CREATININE CLEARANCE IN PREDICTING GLOMERULAR FILTRATION RATE. ESTIMATED GFR IS NOT APPLICABLE FOR DIALYSIS PATIENTS. BLOOD [id number] 13:13:00* Test Item Value Reference Range Interpretation Comments CULTURE (BEAKER) (test code = 1095) A From Aerobic And Anaerobic Bottles Coagulase negative Staphylococcus GRAM STAIN RESULT (BEAKER) (test code = 1123) From aer obic and anaerobic bottles: gram positive cocci in [...] Th is sample was tested at the [facility] Clinical Microbiology Laboratory using the [employer] FilmArray Blood Culture ID Panel. This test is FDA cleared for in vitro christi gnostic use and has been verified and approved by the [facility] Clinical Microbiolog y laboratory for clinical use. Reference Range: Not DetectedBLOOD CULTURE 2018-01-29 00:00:00* Test Item Value Reference Range Interpretation Comments CULTURE (BEAKER) (test code = 1095) No growth in 5 days BASIC METABOLIC [id number] 06:28:00* Test Item Value Reference Range Interpretation Comments SODIUM (BEAKER) (test code = 381) 139 meq/L 136-145 POTASSIUM (BEAKER) (test code = 379) 3.7 meq/L 3.5-5.1 CHLORIDE (BEAKER) (test code = 382) 107 meq/L 98-107 CO2 (BEAKER) (test code = 355) 22 meq/L 22-29 BLOOD UREA NITROGEN (BEAKER) (test code = 354) 8 mg/dL 7-21 CREATININE (BEAKER) (test code = 358) 0.74 mg/dL 0.57-1.25 GLUCOSE RANDOM (BEAKER) (test code = 652) 119 mg/dL 70-105 H CALCIUM (BEAKER) (test code = 697) 9.4 mg/dL 8.4-10.2 EGFR (BEAKER) (test code = 1092) 88 mL/min/1.73 sq m ESTIMATED GFR IS NOT ACCURATE CREATININE CLEARANCE IN PREDICTING GLOMERULAR FILTRATION RATE. ESTIMATED GFR IS NOT APPLICABLE FOR DIALYSIS PATIENTS. CBC (HEMOGRAM ONLY)2018-01-28 05:52:00* Test Item Value Reference Range Interpretation Comments WHITE BLOOD CELL COUNT (BEAKER) (test code = 775) 15.6 K/ L 3.5- 10.5 H RED BLOOD CELL COUNT (BEAKER) (test code = 761) 3.09 M/ L 3.93-5 .22 L HEMOGLOBIN (BEAKER) (test code = 410) 7.7 GM/DL 11.2-15.7 L HEMATOCRIT (BEAKER) (test code = 411) 24.8 % 34.1-44.9 L MEAN CORPUSCULAR VOLUME (BEAKER) (test code = 753) 80.3 fL 79. 4-94.8 MEAN CORPUSCULAR HEMOGLOBIN (BEAKER) (test code = 751) 24.9 pg 25.6-32.2 L MEAN CORPUSCULAR HEMOGLOBIN CONC (BEAKER) (test code = 752) 31.0 GM/DL 32.2-35.5 L RED CELL DISTRIBUTION WIDTH (BEAKER) (test code = 412) 19.6 % 11.7-14.4 H PLATELET COUNT (BEAKER) (test code = 756) 246 K/CU MM 150-450 MEAN PLATELET VOLUME (BEAKER) (test code = 754) 10.3 fL 9.4-12 .3 NUCLEATED RED BLOOD CELLS (BEAKER) (test code = 413) 0 /100 WBC 0 -0 STOOL CULTURE + SHIGA [id number] 12:31:00* Test Item Value Reference Range Interpretation Comments CULTURE (BEAKER) (test code = 1095) No Salmonella, Keila gella or Campylobacter isolated Unable to test for Shiga Toxin 1 due to insufficient growth of specimen.Unable t o test for Shiga Toxin 2 due to insufficient growth of specimen.Resubmit [facility] if clinically indicated.BASIC METABOLIC [id number] 08:58:00* Test Item Value Reference Range Interpretation Comments SODIUM (BEAKER) (test code = 381) 139 meq/L 136-145 POTASSIUM (BEAKER) (test code = 379) 3.4 meq/L 3.5-5.1 L CHLORIDE (BEAKER) (test code = 382) 106 meq/L 98-107 CO2 (BEAKER) (test code = 355) 23 meq/L 22-29 BLOOD UREA NITROGEN (BEAKER) (test code = 354) 6 mg/dL 7-21 L CREATININE (BEAKER) (test code = 358) 0.70 mg/dL 0.57-1.25 GLUCOSE RANDOM (BEAKER) (test code = 652) 104 mg/dL 70-105 CALCIUM (BEAKER) (test code = 697) 9.1 mg/dL 8.4-10.2 EGFR (BEAKER) (test code = 1092) 94 mL/min/1.73 sq m ESTIMATED GFR IS NOT ACCURATE CREATININE CLEARANCE IN PREDICTING GLOMERULAR FILTRATION RATE. ESTIMATED GFR IS NOT APPLICABLE FOR DIALYSIS PATIENTS. CBC (HEMOGRAM ONLY)2018-01-27 07:07:00* Test Item Value Reference Range Interpretation Comments WHITE BLOOD CELL COUNT (BEAKER) (test code = 775) 16.8 K/ L 3.5- 10.5 H RED BLOOD CELL COUNT (BEAKER) (test code = 761) 3.05 M/ L 3.93-5 .22 L HEMOGLOBIN (BEAKER) (test code = 410) 7.6 GM/DL 11.2-15.7 L HEMATOCRIT (BEAKER) (test code = 411) 24.3 % 34.1-44.9 L MEAN CORPUSCULAR VOLUME (BEAKER) (test code = 753) 79.7 fL 79. 4-94.8 MEAN CORPUSCULAR HEMOGLOBIN (BEAKER) (test code = 751) 24.9 pg 25.6-32.2 L MEAN CORPUSCULAR HEMOGLOBIN CONC (BEAKER) (test code = 752) 31.3 GM/DL 32.2-35.5 L RED CELL DISTRIBUTION WIDTH (BEAKER) (test code = 412) 19.0 % 11.7-14.4 H PLATELET COUNT (BEAKER) (test code = 756) 228 K/CU MM 150-450 MEAN PLATELET VOLUME (BEAKER) (test code = 754) 10.2 fL 9.4-12 .3 NUCLEATED RED BLOOD CELLS (BEAKER) (test code = 413) 0 /100 WBC 0 -0 URINE [id number] 13:30:00* Test Item Value Reference Range Interpretation Comments CULTURE (BEAKER) (test code = 1095) ESCHERICHIA COLI A >100,000 col/mL Escherichia coliESBL Positive Amikacin (test code = 1) S Ampicillin + Sulbactam (test code = 6) R Aztreonam (test code = 32) R Cefepime (test code = 51) R Cefoxitin (test code = 68) R Ceftazidime (test code = 27) R Ceftriaxone (test code = 52) R Ertapenem (test code = 38) S Gentamicin (test code = 18) R Levofloxacin (test code = 22) R Meropenem (test code = 34) S Nitrofurantoin (test code = 23) S Piperacillin + Tazobactam (test code = 29) R Tetracycline (test code = 2) R Tobramycin (test code = 25) R Trimethoprim + Sulfamethoxazole (test code = 47) R BASIC METABOLIC [id number] 06:56:00* Test Item Value Reference Range Interpretation Comments SODIUM (BEAKER) (test code = 381) 137 meq/L 136-145 POTASSIUM (BEAKER) (test code = 379) 3.6 meq/L 3.5-5.1 CHLORIDE (BEAKER) (test code = 382) 107 meq/L 98-107 CO2 (BEAKER) (test code = 355) 20 meq/L 22-29 L BLOOD UREA NITROGEN (BEAKER) (test code = 354) 7 mg/dL 7-21 CREATININE (BEAKER) (test code = 358) 0.71 mg/dL 0.57-1.25 GLUCOSE RANDOM (BEAKER) (test code = 652) 94 mg/dL 70-105 CALCIUM (BEAKER) (test code = 697) 9.4 mg/dL 8.4-10.2 EGFR (BEAKER) (test code = 1092) 92 mL/min/1.73 sq m ESTIMATED GFR IS NOT ACCURATE CREATININE CLEARANCE IN PREDICTING GLOMERULAR FILTRATION RATE. ESTIMATED GFR IS NOT APPLICABLE FOR DIALYSIS PATIENTS. CBC (HEMOGRAM ONLY)2018-01-26 06:20:00* Test Item Value Reference Range Interpretation Comments WHITE BLOOD CELL COUNT (BEAKER) (test code = 775) 16.4 K/ L 3.5- 10.5 H RED BLOOD CELL COUNT (BEAKER) (test code = 761) 3.08 M/ L 3.93-5 .22 L HEMOGLOBIN (BEAKER) (test code = 410) 7.6 GM/DL 11.2-15.7 L HEMATOCRIT (BEAKER) (test code = 411) 24.5 % 34.1-44.9 L MEAN CORPUSCULAR VOLUME (BEAKER) (test code = 753) 79.5 fL 79. 4-94.8 MEAN CORPUSCULAR HEMOGLOBIN (BEAKER) (test code = 751) 24.7 pg 25.6-32.2 L MEAN CORPUSCULAR HEMOGLOBIN CONC (BEAKER) (test code = 752) 31.0 GM/DL 32.2-35.5 L RED CELL DISTRIBUTION WIDTH (BEAKER) (test code = 412) 18.7 % 11.7-14.4 H PLATELET COUNT (BEAKER) (test code = 756) 193 K/CU MM 150-450 MEAN PLATELET VOLUME (BEAKER) (test code = 754) 10.3 fL 9.4-12 .3 NUCLEATED RED BLOOD CELLS (BEAKER) (test code = 413) 0 /100 WBC 0 -0 STOOL PATH [id number] 15:51:00* Test Item Value Reference Range Interpretation Comments PATHOGEN EXAM CHARGED (BEAKER) (test code = 2381) Done BASIC METABOLIC [id number] 08:00:00* Test Item Value Reference Range Interpretation Comments SODIUM (BEAKER) (test code = 381) 137 meq/L 136-145 POTASSIUM (BEAKER) (test code = 379) 3.6 meq/L 3.5-5.1 CHLORIDE (BEAKER) (test code = 382) 107 meq/L 98-107 CO2 (BEAKER) (test code = 355) 20 meq/L 22-29 L BLOOD UREA NITROGEN (BEAKER) (test code = 354) 9 mg/dL 7-21 CREATININE (BEAKER) (test code = 358) 0.71 mg/dL 0.57-1.25 GLUCOSE RANDOM (BEAKER) (test code = 652) 114 mg/dL 70-105 H CALCIUM (BEAKER) (test code = 697) 9.0 mg/dL 8.4-10.2 EGFR (BEAKER) (test code = 1092) 92 mL/min/1.73 sq m ESTIMATED GFR IS NOT ACCURATE CREATININE CLEARANCE IN PREDICTING GLOMERULAR FILTRATION RATE. ESTIMATED GFR IS NOT APPLICABLE FOR DIALYSIS PATIENTS. CBC (HEMOGRAM ONLY)2018-01-25 06:05:00* Test Item Value Reference Range Interpretation Comments WHITE BLOOD CELL COUNT (BEAKER) (test code = 775) 3.7 K/ L 3.5- 10.5 RED BLOOD CELL COUNT (BEAKER) (test code = 761) 3.19 M/ L 3.93-5 .22 L HEMOGLOBIN (BEAKER) (test code = 410) 7.7 GM/DL 11.2-15.7 L HEMATOCRIT (BEAKER) (test code = 411) 25.1 % 34.1-44.9 L MEAN CORPUSCULAR VOLUME (BEAKER) (test code = 753) 78.7 fL 79. 4-94.8 L MEAN CORPUSCULAR HEMOGLOBIN (BEAKER) (test code = 751) 24.1 pg 25.6-32.2 L MEAN CORPUSCULAR HEMOGLOBIN CONC (BEAKER) (test code = 752) 30.7 GM/DL 32.2-35.5 L RED CELL DISTRIBUTION WIDTH (BEAKER) (test code = 412) 18.5 % 11.7-14.4 H PLATELET COUNT (BEAKER) (test code = 756) 182 K/CU MM 150-450 MEAN PLATELET VOLUME (BEAKER) (test code = 754) 11.4 fL 9.4-12 .3 NUCLEATED RED BLOOD CELLS (BEAKER) (test code = 413) 0 /100 WBC 0 -0 C. DIFFICILE GDH [id number] 10:45:00* Test Item Value Reference Range Interpretation Comments CDT TOXIN (test code = 2525663244) Negative Negative CDT GDH ANTIGEN (test code = 0550858081) Positive Negative A C. difficile present but toxin not detected. [...] of kit performance was done by the [facility] Microbiology Lab prior to cl inical use.BASIC METABOLIC [id number] 06:54:00* Test Item Value Reference Range Interpretation Comments SODIUM (BEAKER) (test code = 381) 135 meq/L 136-145 L POTASSIUM (BEAKER) (test code = 379) 3.3 meq/L 3.5-5.1 L CHLORIDE (BEAKER) (test code = 382) 106 meq/L 98-107 CO2 (BEAKER) (test code = 355) 21 meq/L 22-29 L BLOOD UREA NITROGEN (BEAKER) (test code = 354) 10 mg/dL 7-21 CREATININE (BEAKER) (test code = 358) 0.71 mg/dL 0.57-1.25 GLUCOSE RANDOM (BEAKER) (test code = 652) 117 mg/dL 70-105 H CALCIUM (BEAKER) (test code = 697) 8.9 mg/dL 8.4-10.2 EGFR (BEAKER) (test code = 1092) 92 mL/min/1.73 sq m ESTIMATED GFR IS NOT ACCURATE CREATININE CLEARANCE IN PREDICTING GLOMERULAR FILTRATION RATE. ESTIMATED GFR IS NOT APPLICABLE FOR DIALYSIS PATIENTS. CBC W/PLT COUNT & AUTO [id number] 06:36:00* Test Item Value Reference Range Interpretation Comments WHITE BLOOD CELL COUNT (BEAKER) (test code = 775) 3.6 K/ L 3.5- 10.5 RED BLOOD CELL COUNT (BEAKER) (test code = 761) 3.25 M/ L 3.93-5 .22 L HEMOGLOBIN (BEAKER) (test code = 410) 7.9 GM/DL 11.2-15.7 L HEMATOCRIT (BEAKER) (test code = 411) 25.2 % 34.1-44.9 L MEAN CORPUSCULAR VOLUME (BEAKER) (test code = 753) 77.5 fL 79. 4-94.8 L MEAN CORPUSCULAR HEMOGLOBIN (BEAKER) (test code = 751) 24.3 pg 25.6-32.2 L MEAN CORPUSCULAR HEMOGLOBIN CONC (BEAKER) (test code = 752) 31.3 GM/DL 32.2-35.5 L RED CELL DISTRIBUTION WIDTH (BEAKER) (test code = 412) 18.5 % 11.7-14.4 H PLATELET COUNT (BEAKER) (test code = 756) 176 K/CU MM 150-450 MEAN PLATELET VOLUME (BEAKER) (test code = 754) 10.6 fL 9.4-12 .3 NUCLEATED RED BLOOD CELLS (BEAKER) (test code = 413) 0 /100 WBC 0 -0 NEUTROPHILS RELATIVE PERCENT (BEAKER) (test code = 429) 48 % LYMPHOCYTES RELATIVE PERCENT (BEAKER) (test code = 430) 41 % MONOCYTES RELATIVE PERCENT (BEAKER) (test code = 431) 6 % EOSINOPHILS RELATIVE PERCENT (BEAKER) (test code = 432) 4 % BASOPHILS RELATIVE PERCENT (BEAKER) (test code = 437) 0 % NEUTROPHILS ABSOLUTE COUNT (BEAKER) (test code = 670) 1.75 K/ L 1.56-6.13 LYMPHOCYTES ABSOLUTE COUNT (BEAKER) (test code = 414) 1.50 K/ L 1.18-3.74 MONOCYTES ABSOLUTE COUNT (BEAKER) (test code = 415) 0.21 K/ L 0. 24-0.36 L EOSINOPHILS ABSOLUTE COUNT (BEAKER) (test code = 416) 0.13 K/ L 0.04-0.36 BASOPHILS ABSOLUTE COUNT (BEAKER) (test code = 417) 0.01 K/ L 0. 01-0.08 IMMATURE GRANULOCYTES-RELATIVE PERCENT (BEAKER) (test code = 2801) 1 % 0-1 CT, [id number] 22:40:00Reason for exam:->ABDOMINAL PAINReason for exam:-> NAUSEAReason [...] Ve rified Date/Time: 01/23/2018 22:40:25 Reading Location: [address] Reading Room ALYSIS WITH MICROSCOPIC IF [id number] 22:13:00* Test Item Value Reference Range Interpretation Comments COLOR (BEAKER) (test code = 470) Yellow CLARITY (BEAKER) (test code = 469) Hazy SPECIFIC GRAVITY UA (BEAKER) (test code = 468) 1.012 1.001-1 .035 PH UA (BEAKER) (test code = 467) 7.0 5.0-8.0 PROTEIN UA (BEAKER) (test code = 464) 20 mg/dL Negative A GLUCOSE UA (BEAKER) (test code = 365) Negative Negative KETONES UA (BEAKER) (test code = 371) Negative Negative BILIRUBIN UA (BEAKER) (test code = 462) Negative Negative BLOOD UA (BEAKER) (test code = 461) Trace Negative A NITRITE UA (BEAKER) (test code = 465) Positive Negative A LEUKOCYTE ESTERASE UA (BEAKER) (test code = 466) Large Negat ivonne A UROBILINOGEN UA (BEAKER) (test code = 463) 0.2 mg/dL 0.2-1.0 SOURCE(BEAKER) (test code = 2795) URINALYSIS [id number] 22:13:00* Test Item Value Reference Range Interpretation Comments RBC UA (BEAKER) (test code = 519) 1 /HPF WBC UA (BEAKER) (test code = 520) 77 /HPF BACTERIA (BEAKER) (test code = 517) Occasional MUCUS (BEAKER) (test code = 1574) Many SQUAMOUS EPITHELIAL (BEAKER) (test code = 516) 12 /HPF COMPREHENSIVE METABOLIC [id number] 22:03:00* Test Item Value Reference Range Interpretation Comments TOTAL PROTEIN (BEAKER) (test code = 770) 8.2 gm/dL 6.0-8.3 ALBUMIN (BEAKER) (test code = 1145) 4.6 g/dL 3.5-5.0 ALKALINE PHOSPHATASE (BEAKER) (test code = 346) 169 U/L 40-150 H BILIRUBIN TOTAL (BEAKER) (test code = 377) 0.4 mg/dL 0.2-1.2 SODIUM (BEAKER) (test code = 381) 136 meq/L 136-145 POTASSIUM (BEAKER) (test code = 379) 4.1 meq/L 3.5-5.1 CHLORIDE (BEAKER) (test code = 382) 104 meq/L 98-107 CO2 (BEAKER) (test code = 355) 21 meq/L 22-29 L BLOOD UREA NITROGEN (BEAKER) (test code = 354) 11 mg/dL 7-21 CREATININE (BEAKER) (test code = 358) 0.80 mg/dL 0.57-1.25 GLUCOSE RANDOM (BEAKER) (test code = 652) 111 mg/dL 70-105 H CALCIUM (BEAKER) (test code = 697) 10.2 mg/dL 8.4-10.2 AST (SGOT) (BEAKER) (test code = 353) 39 U/L 5-34 H ALT (SGPT) (BEAKER) (test code = 347) 96 U/L 6-55 H EGFR (BEAKER) (test code = 1092) 80 mL/min/1.73 sq m ESTIMATED GFR IS NOT ACCURATE CREATININE CLEARANCE IN PREDICTING GLOMERULAR FILTRATION RATE. ESTIMATED GFR IS NOT APPLICABLE FOR DIALYSIS PATIENTS. POCT-LACTIC ACID, [id number] 21:46:00* Test Item Value Reference Range Interpretation Comments POC-LACTIC ACID, VENOUS (BEAKER) (test code = 2805) 0.9 mmol/L 0. 9-1.7 TESTED AT [facility] [address] [facility] [address] CBC W/PLT COUNT & AUTO [id number] 21:38:00* Test Item Value Reference Range Interpretation Comments WHITE BLOOD CELL COUNT (BEAKER) (test code = 775) 3.7 K/ L 3.5- 10.5 RED BLOOD CELL COUNT (BEAKER) (test code = 761) 3.99 M/ L 3.93-5 .22 HEMOGLOBIN (BEAKER) (test code = 410) 9.8 GM/DL 11.2-15.7 L HEMATOCRIT (BEAKER) (test code = 411) 31.1 % 34.1-44.9 L MEAN CORPUSCULAR VOLUME (BEAKER) (test code = 753) 77.9 fL 79. 4-94.8 L MEAN CORPUSCULAR HEMOGLOBIN (BEAKER) (test code = 751) 24.6 pg 25.6-32.2 L MEAN CORPUSCULAR HEMOGLOBIN CONC (BEAKER) (test code = 752) 31.5 GM/DL 32.2-35.5 L RED CELL DISTRIBUTION WIDTH (BEAKER) (test code = 412) 18.5 % 11.7-14.4 H PLATELET COUNT (BEAKER) (test code = 756) 208 K/CU MM 150-450 MEAN PLATELET VOLUME (BEAKER) (test code = 754) 9.5 fL 9.4-12 .3 NUCLEATED RED BLOOD CELLS (BEAKER) (test code = 413) 0 /100 WBC 0 -0 NEUTROPHILS RELATIVE PERCENT (BEAKER) (test code = 429) 60 % LYMPHOCYTES RELATIVE PERCENT (BEAKER) (test code = 430) 33 % MONOCYTES RELATIVE PERCENT (BEAKER) (test code = 431) 4 % EOSINOPHILS RELATIVE PERCENT (BEAKER) (test code = 432) 2 % BASOPHILS RELATIVE PERCENT (BEAKER) (test code = 437) 0 % NEUTROPHILS ABSOLUTE COUNT (BEAKER) (test code = 670) 2.19 K/ L 1.56-6.13 LYMPHOCYTES ABSOLUTE COUNT (BEAKER) (test code = 414) 1.22 K/ L 1.18-3.74 MONOCYTES ABSOLUTE COUNT (BEAKER) (test code = 415) 0.13 K/ L 0. 24-0.36 L EOSINOPHILS ABSOLUTE COUNT (BEAKER) (test code = 416) 0.08 K/ L 0.04-0.36 BASOPHILS ABSOLUTE COUNT (BEAKER) (test code = 417) 0.01 K/ L 0. 01-0.08 IMMATURE GRANULOCYTES-RELATIVE PERCENT (BEAKER) (test code = 2801) 1 % 0-1 RAD, CHEST, 1 VIEW, NON [id number] 21:31:00Reason for exam:->ABDOMINAL PAINReason for exam:->NAUSEAReason for exam:->EMESISShould this be performed at the bedside?->YesFINAL REPORT RAD, CHEST, 1 VIEW, NON DEPT INDICATION: ABDOMINAL PAINNAUSEAEMESIS COMPARISON: Chest x-ray 2 months ago TECHNIQUE: Single frontal view of the chest. IMPRESSION:Stable MediPort.Cardiomediastinal silhouette within normal limits.No overt consolidative or congestive change.No acute osseous abnormality. Signed: Vikash Bravo MDReport Verified Date/Time: 01/23/2018 21:31:16 Reading Location: [address] Transitional Reading Room Differential Total Cells [id number] 07:15:00* Test Item Value Reference Range Interpretation Comments Differential Total Cells Counted (test code = Differchas tial Total Cells Counted) 100 [facility]2018-01-16 07:15:00 * Test Item Value Reference Range Interpretation Comments Neutrophils % (Manual) (test code = 54256-2) 66 40-74 [facility] %2018-01-16 07:15:00* Test Item Value Reference Range Interpretation Comments Band Neutrophils % (test code = 764-1) 3 [facility] % ([facility])2018-01-16 07:15:00 * Test Item Value Reference Range Interpretation Comments Lymphocytes % (Manual) (test code = 737-7) 23 19-48 [facility] ([facility])2018-01-16 07:15:00* Test Item Value Reference Range Interpretation Comments Monocytes % (Manual) (test code = 744-3) 3 3.4-9.0 L [facility] % ([facility])2018-01-16 07:15:00 * Test Item Value Reference Range Interpretation Comments Eosinophils % (Manual) (test code = 714-6) 4 0-7 [facility] %2018-01-16 07:15:00* Test Item Value Reference Range Interpretation Comments Myelocytes % (test code = 749-2) 1 0-0 H [facility] HospitalNucleated Red Blood [id number] 07:15:00* Test Item Value Reference Range Interpretation Comments Nucleated Red Blood Cells (test code = 43017-6) 1 [facility]Platelet [id number] 07:15:00* Test Item Value Reference Range Interpretation Comments Platelet Estimate (test code = 81282-7) ADEQUATE [facility] HospitalPlatelet Morphology [id number] 07:15:00* Test Item Value Reference Range Interpretation Comments Platelet Morphology Comment (test code = 56199-7) NORMAL [facility] HospitalHypochromasia2018-07-10 07:15:00* Test Item Value Reference Range Interpretation Comments Hypochromasia (test code = 728-6) SLIG [facility] HospitalPoikilocytosis2018-07-10 07:15:00* Test Item Value Reference Range Interpretation Comments Poikilocytosis (test code = 779-9) SLIGHT [facility] HospitalAnisocytosis2018-07-10 07:15:00* Test Item Value Reference Range Interpretation Comments Anisocytosis (test code = 702-1) MODERATE [facility] HospitalRed Cell Morphology [id number] 07:15:00* Test Item Value Reference Range Interpretation Comments Red Cell Morphology Comment (test code = 6742-1) ABNORMAL [facility] HospitalDifferential Total Cells Counted 2018-01-16 07:15:00* Test Item Value Reference Range Interpretation Comments Differential Total Cells Counted (test code = Afsaneh tial Total Cells Counted) 100 [facility]Neutrophils % (Manual)2018-01-16 07:15:00 * Test Item Value Reference Range Interpretation Comments Neutrophils % (Manual) (test code = 26565-3) 66 40-74 [facility]Band Neutrophils %2018-01-16 07:15:00* Test Item Value Reference Range Interpretation Comments Band Neutrophils % (test code = 764-1) 3 [facility]Lymphocytes % (Manual)2018-01-16 07:15:00 * Test Item Value Reference Range Interpretation Comments Lymphocytes % (Manual) (test code = 737-7) 23 19-48 [facility]Mon[facility] % ([facility])2018-01-16 07:15:00* Test Item Value Reference Range Interpretation Comments Monocytes % (Manual) (test code = 744-3) 3 3.4-9.0 L [facility]Eosinophils % (Manual)2018-01-16 07:15:00 * Test Item Value Reference Range Interpretation Comments Eosinophils % (Manual) (test code = 714-6) 4 0-7 [facility]Myelocytes %2018-01-16 07:15:00* Test Item Value Reference Range Interpretation Comments Myelocytes % (test code = 749-2) 1 0-0 H [facility] HospitalNucleated Red Blood [id number] 07:15:00* Test Item Value Reference Range Interpretation Comments Nucleated Red Blood Cells (test code = 77586-2) 1 [facility]Pl[facility]let [id number] 07:15:00* Test Item Value Reference Range Interpretation Comments Platelet Estimate (test code = 80409-8) ADEQUATE [facility] HospitalPlatelet Morphology [id number] 07:15:00* Test Item Value Reference Range Interpretation Comments Platelet Morphology Comment (test code = 99358-5) NORMAL [facility] HospitalHypochromasia2018-07-10 07:15:00* Test Item Value Reference Range Interpretation Comments Hypochromasia (test code = 728-6) SLIG [facility] HospitalPoikilocytosis2018-07-10 07:15:00* Test Item Value Reference Range Interpretation Comments Poikilocytosis (test code = 779-9) SLIGHT [facility] HospitalAnisocytosis2018-07-10 07:15:00* Test Item Value Reference Range Interpretation Comments Anisocytosis (test code = 702-1) [facility] Morphology Dcvwiys2766-27-39 07:15:00* Test Item Value Reference Range Interpretation Comments Red Cell Morphology Comment (test code = 6742-1) ABNORMAL [facility] HospitalBand Neutrophils %2018-01-16 07:15:00* Test Item Value Reference Range Interpretation Comments Band Neutrophils % (test code = 764-1) 3 [facility] HospitalMyelocytes %2018-01-16 07:15:00* Test Item Value Reference Range Interpretation Comments Myelocytes % (test code = 749-2) 1 0-0 H [facility] HospitalNucleated Red Blood Pslhu8673-30-69 07:15:00* Test Item Value Reference Range Interpretation Comments Nucleated Red Blood Cells (test code = 42189-0) 1 [facility] HospitalPoikilocytosis2018-07-10 07:15:00* Test Item Value Reference Range Interpretation Comments Poikilocytosis (test code = 779-9) SLIGHT [facility] HospitalAnisocytosis2018-07-10 07:15:00* Test Item Value Reference Range Interpretation Comments Anisocytosis (test code = 702-1) MODERATE [facility]Band Neutrophils %2018-01-16 07:15:00* Test Item Value Reference Range Interpretation Comments Band Neutrophils % (test code = 764-1) 3 [facility] HospitalMyelocytes %2018-01-16 07:15:00* Test Item Value Reference Range Interpretation Comments Myelocytes % (test code = 749-2) 1 0-0 H [facility] HospitalNucleated Red Blood Qnuwo5020-69-01 07:15:00* Test Item Value Reference Range Interpretation Comments Nucleated Red Blood Cells (test code = 75442-8) 1 [facility] HospitalPoikilocytosis2018-07-10 07:15:00* Test Item Value Reference Range Interpretation Comments Poikilocytosis (test code = 779-9) SLIGHT [facility] HospitalAnisocytosis2018-07-10 07:15:00* Test Item Value Reference Range Interpretation Comments Anisocytosis (test code = 702-1) MODERATE [facility] HospitalBand Neutrophils %2018-01-16 07:15:00* Test Item Value Reference Range Interpretation Comments Band Neutrophils % (test code = 764-1) 3 [facility] HospitalMyelocytes %2018-01-16 07:15:00* Test Item Value Reference Range Interpretation Comments Myelocytes % (test code = 749-2) 1 0-0 H [facility] HospitalNucleated Red Blood Qqkcm4849-02-67 07:15:00* Test Item Value Reference Range Interpretation Comments Nucleated Red Blood Cells (test code = 15325-8) 1 [facility] HospitalPoikilocytosis2018-07-10 07:15:00* Test Item Value Reference Range Interpretation Comments Poikilocytosis (test code = 779-9) SLIGHT [facility] HospitalAnisocytosis2018-07-10 07:15:00* Test Item Value Reference Range Interpretation Comments Anisocytosis (test code = 702-1) MODERATE [facility] HospitalBand Neutrophils %2018-01-16 07:15:00* Test Item Value Reference Range Interpretation Comments Band Neutrophils % (test code = 764-1) 3 [facility] HospitalMyelocytes %2018-01-16 07:15:00* Test Item Value Reference Range Interpretation Comments Myelocytes % (test code = 749-2) 1 0-0 H [facility] HospitalNucleated Red Blood Rosvm2322-00-16 07:15:00* Test Item Value Reference Range Interpretation Comments Nucleated Red Blood Cells (test code = 22297-2) 1 [facility] HospitalPoikilocytosis2018-07-10 07:15:00* Test Item Value Reference Range Interpretation Comments Poikilocytosis (test code = 779-9) SLIGHT [facility] HospitalBand Neutrophils %2018-01-16 07:15:00* Test Item Value Reference Range Interpretation Comments Band Neutrophils % (test code = 764-1) 3 [facility] HospitalMyelocytes %2018-01-16 07:15:00* Test Item Value Reference Range Interpretation Comments Myelocytes % (test code = 749-2) 1 0-0 H [facility] HospitalNucleated Red Blood Iyuif8848-77-12 07:15:00* Test Item Value Reference Range Interpretation Comments Nucleated Red Blood Cells (test code = 69480-4) 1 [facility] HospitalPoikilocytosis2018-07-10 07:15:00* Test Item Value Reference Range Interpretation Comments Poikilocytosis (test code = 779-9) SLIGHT [facility] HospitalBand Neutrophils %2018-01-16 07:15:00* Test Item Value Reference Range Interpretation Comments Band Neutrophils % (test code = 764-1) 3 [facility] HospitalMyelocytes %2018-01-16 07:15:00* Test Item Value Reference Range Interpretation Comments Myelocytes % (test code = 749-2) 1 0-0 H [facility] HospitalNucleated Red Blood Zjzdy7815-82-99 07:15:00* Test Item Value Reference Range Interpretation Comments Nucleated Red Blood Cells (test code = 07300-7) 1 [facility] HospitalPoikilocytosis2018-07-10 07:15:00* Test Item Value Reference Range Interpretation Comments Poikilocytosis (test code = 779-9) SLIGHT [facility] HospitalBand Neutrophils %2018-01-16 07:15:00* Test Item Value Reference Range Interpretation Comments Band Neutrophils % (test code = 764-1) 3 [facility] HospitalMyelocytes %2018-01-16 07:15:00* Test Item Value Reference Range Interpretation Comments Myelocytes % (test code = 749-2) 1 0-0 H [facility] HospitalNucleated Red Blood Skhan7542-77-98 07:15:00* Test Item Value Reference Range Interpretation Comments Nucleated Red Blood Cells (test code = 80445-6) 1 [facility] HospitalPoikilocytosis2018-07-10 07:15:00* Test Item Value Reference Range Interpretation Comments Poikilocytosis (test code = 779-9) SLIGHT [facility] HospitalBand Neutrophils %2018-01-16 07:15:00* Test Item Value Reference Range Interpretation Comments Band Neutrophils % (test code = 764-1) 3 [facility] HospitalMyelocytes %2018-01-16 07:15:00* Test Item Value Reference Range Interpretation Comments Myelocytes % (test code = 749-2) 1 0-0 H [facility] HospitalNucleated Red Blood Llfbf1233-32-18 07:15:00* Test Item Value Reference Range Interpretation Comments Nucleated Red Blood Cells (test code = 13917-4) 1 [facility] HospitalPoikilocytosis2018-07-10 07:15:00* Test Item Value Reference Range Interpretation Comments Poikilocytosis (test code = 779-9) SLIGHT [facility] Izogn2223-41-32 05:55:00* Test Item Value Reference Range Interpretation Comments Sodium Level (test code = 2951-2) 140 136-145 [facility] HospitalPotassium Zsbqt2372-91-50 05:55:00* Test Item Value Reference Range Interpretation Comments Potassium Level (test code = 2823-3) 3.8 3.5-5.1 [facility] HospitalChloride Powxb1114-43-80 05:55:00* Test Item Value Reference Range Interpretation Comments Chloride Level (test code = 2075-0) 108 98-107 H [facility] HospitalCarbon Dioxide Cbkus8485-10-35 05:55:00* Test Item Value Reference Range Interpretation Comments Carbon Dioxide Level (test code = 2028-9) 26 22-29 [facility] HospitalAnion Vbw8320-70-48 05:55:00* Test Item Value Reference Range Interpretation Comments Anion Gap (test code = 76314-4) 9.8 8-16 [facility] HospitalBlood Urea Mmeqwdcb0828-75-10 05:55:00* Test Item Value Reference Range Interpretation Comments Blood Urea Nitrogen (test code = 3094-0) 7 7-26 [facility] HospitalCreatinine2018-07-10 05:55:00* Test Item Value Reference Range Interpretation Comments Creatinine (test code = 2160-0) 0.73 0.57-1.11 [facility] HospitalBUN/Creatinine Dtafl5910-43-94 05:55:00* Test Item Value Reference Range Interpretation Comments BUN/Creatinine Ratio (test code = 3097-3) 10 - [facility] HospitalEstimat Glomerular Filtration Rate 2018-01-16 05:55:00* Test Item Value Reference Range Interpretation Comments Estimat Glomerular Filtration Rate (test code = 58391-1) 60- >60 Ranges were taken from the National Kidney Disease Education Program and the [facility] Foundation literature.Reference ranges:60 or greater: Fjglea55-24 ( for 3 consecutive months): Chronic kidney disease 15 or less: Kidney failureHouston [facility] West HospitalGlucose Brrxb2041-57-79 05:55:00* Test Item Value Reference Range Interpretation Comments Glucose Level (test code = ZDG1284) 117 74-118 [facility] HospitalCalcium Ihlby3696-51-69 05:55:00* Test Item Value Reference Range Interpretation Comments Calcium Level (test code = 88794-0) 9.2 8.4-10.2 [facility] HospitalMagnesium Dnjmk3515-44-54 05:55:00* Test Item Value Reference Range Interpretation Comments Magnesium Level (test code = 66836-7) 2.2 1.3-2.1 H [facility] HospitalTotal Ujdaxlypv0174-07-62 05:55:00* Test Item Value Reference Range Interpretation Comments Total Bilirubin (test code = 1975-2) 0.2 0.2-1.2 [facility] HospitalAspartate Amino Transf (AST/SGOT) 2018-01-16 05:55:00* Test Item Value Reference Range Interpretation Comments Aspartate Amino Transf (AST/SGOT) (test code = Aspartate Amino Transf (AST/SGOT)) 18 5-34 [facility] HospitalAlanine Aminotransferase (ALT/SGPT) 2018-01-16 05:55:00* Test Item Value Reference Range Interpretation Comments Alanine Aminotransferase (ALT/SGPT) (test code = 1742-6) 16 0-55 [facility] HospitalTotal Vbthyki4131-47-42 05:55:00* Test Item Value Reference Range Interpretation Comments Total Protein (test code = 2885-2) 6.9 6.5-8.1 [facility] HospitalAlbumin2018-07-10 05:55:00* Test Item Value Reference Range Interpretation Comments Albumin (test code = 1751-7) 3.7 3.5-5.0 [facility] HospitalGlobulin2018-07-10 05:55:00* Test Item Value Reference Range Interpretation Comments Globulin (test code = 42568-5) 3.2 2.3-3.5 [facility] HospitalAlbumin/Globulin Jqspa3866-50-51 05:55:00 * Test Item Value Reference Range Interpretation Comments Albumin/Globulin Ratio (test code = 1759-0) 1.2 0.8-2.0 [facility] HospitalAlkaline Wsbscqwndfu9562-20-99 05:55:00* Test Item Value Reference Range Interpretation Comments Alkaline Phosphatase (test code = 6768-6) 133 40-150 [facility] HospitalMagnesium Chmmf4258-46-53 05:55:00* Test Item Value Reference Range Interpretation Comments Magnesium Level (test code = 03083-3) 2.2 1.3-2.1 H [facility] HospitalMagnesium Szhky9300-64-79 05:55:00* Test Item Value Reference Range Interpretation Comments Magnesium Level (test code = 62896-8) 2.2 1.3-2.1 H [facility] HospitalWhite Blood Uqnwn1135-93-47 05:37:00* Test Item Value Reference Range Interpretation Comments White Blood Count (test code = 6690-2) 10.98 4.8-10.8 H [facility] HospitalRed Blood Muqso8513-73-92 05:37:00* Test Item Value Reference Range Interpretation Comments Red Blood Count (test code = 789-8) 3.54 3.6-5.1 L [facility] HospitalHemoglobin2018-07-10 05:37:00* Test Item Value Reference Range Interpretation Comments Hemoglobin (test code = 23176-5) 8.7 12.0-16.0 L [facility] HospitalHematocrit2018-07-10 05:37:00* Test Item Value Reference Range Interpretation Comments Hematocrit (test code = 4544-3) 28.0 34.2-44.1 L [facility] HospitalMean Corpuscular Qrnjqz7150-29-97 05:37:00* Test Item Value Reference Range Interpretation Comments Mean Corpuscular Volume (test code = 787-2) 79.1 81-99 L [facility] HospitalMean Corpuscular Kapjiwvkvr9744-77-62 05:37:00* Test Item Value Reference Range Interpretation Comments Mean Corpuscular Hemoglobin (test code = 785-6) 24.6 28-32 L [facility] HospitalMean Corpuscular Hemoglobin Concent 2018-01-16 05:37:00* Test Item Value Reference Range Interpretation Comments Mean Corpuscular Hemoglobin Concent (test code = 786-4) 31.1 31-35 [facility] HospitalRed Cell Distribution Hohob4589-85-35 05:37:00* Test Item Value Reference Range Interpretation Comments Red Cell Distribution Width (test code = 21890-6) 18.6 11.7 -14.4 H [facility] HospitalPlatelet Qijff3344-68-44 05:37:00* Test Item Value Reference Range Interpretation Comments Platelet Count (test code = 777-3) 207 140-360 [facility] HospitalNeutrophils (%) (Auto)2018-01-16 05:37:00 * Test Item Value Reference Range Interpretation Comments Neutrophils (%) (Auto) (test code = 38210-9) 58.8 38.7-80.0 [facility] HospitalLymphocytes (%) (Auto)2018-01-16 05:37:00 * Test Item Value Reference Range Interpretation Comments Lymphocytes (%) (Auto) (test code = 736-9) 24.1 18.0-39.1 [facility] HospitalMonocytes (%) (Auto)2018-01-16 05:37:00* Test Item Value Reference Range Interpretation Comments Monocytes (%) (Auto) (test code = 5905-5) 7.7 4.4-11.3 [facility] HospitalEosinophils (%) (Auto)2018-01-16 05:37:00 * Test Item Value Reference Range Interpretation Comments Eosinophils (%) (Auto) (test code = 713-8) 4.6 0.0-6.0 [facility] HospitalBasophils (%) (Auto)2018-01-16 05:37:00* Test Item Value Reference Range Interpretation Comments Basophils (%) (Auto) (test code = 706-2) 0.5 0.0-1.0 [facility] HospitalIM GRANULOCYTES %2018-01-16 05:37:00* Test Item Value Reference Range Interpretation Comments IM GRANULOCYTES % (test code = IM GRANULOCYTES %) 4.3 0.0- 1.0 H [facility] HospitalNeutrophils # (Auto)2018-01-16 05:37:00* Test Item Value Reference Range Interpretation Comments Neutrophils # (Auto) (test code = 751-8) 6.5 2.1-6.9 [facility] HospitalLymphocytes # (Auto)2018-01-16 05:37:00* Test Item Value Reference Range Interpretation Comments Lymphocytes # (Auto) (test code = 83942-4) 2.7 1.0-3.2 [facility] HospitalMonocytes # (Auto)2018-01-16 05:37:00* Test Item Value Reference Range Interpretation Comments Monocytes # (Auto) (test code = 742-7) 0.8 0.2-0.8 [facility] HospitalEosinophils # (Auto)2018-01-16 05:37:00* Test Item Value Reference Range Interpretation Comments Eosinophils # (Auto) (test code = 711-2) 0.5 0.0-0.4 H [facility] HospitalBasophils # (Auto)2018-01-16 05:37:00* Test Item Value Reference Range Interpretation Comments Basophils # (Auto) (test code = 704-7) 0.1 0.0-0.1 [facility] HospitalAbsolute Immature Granulocyte (auto 2018-01-16 05:37:00* Test Item Value Reference Range Interpretation Comments Absolute Immature Granulocyte (auto (may t code = Absolute Immature Granulocyte (auto) 0.47 0-0.1 H [facility] HospitalVitamin B12 Ixunj2114-05-71 08:42:00* Test Item Value Reference Range Interpretation Comments Vitamin B12 Level (test code = 25464-2) 6 H [facility] HospitalVitamin B12 Sfzdw4177-16-25 08:42:00* Test Item Value Reference Range Interpretation Comments Vitamin B12 Level (test code = 13141-3) H [facility] HospitalVitamin B12 Guczn0418-20-18 08:42:00* Test Item Value Reference Range Interpretation Comments Vitamin B12 Level (test code = 48257-7) H [facility] HospitalFolate2018-07-09 08:39:00* Test Item Value Reference Range Interpretation Comments Folate (test code = 2284-8) 19.8 7.0-15.4 H [facility] HospitalFolate2018-07-09 08:39:00* Test Item Value Reference Range Interpretation Comments Folate (test code = 2284-8) 19.8 7.0-15.4 H [facility] HospitalFolate2018-07-09 08:39:00* Test Item Value Reference Range Interpretation Comments Folate (test code = 2284-8) 19.8 7.0-15.4 H [facility] HospitalFerritin2018-07-09 08:19:00* Test Item Value Reference Range Interpretation Comments Ferritin (test code = 2276-4) 35.53 4.63-204.00 [facility] HospitalFerritin2018-07-09 08:19:00* Test Item Value Reference Range Interpretation Comments Ferritin (test code = 2276-4) 35.53 4.63-204.00 [facility] HospitalFerritin2018-07-09 08:19:00* Test Item Value Reference Range Interpretation Comments Ferritin (test code = 2276-4) 35.53 4.63-204.00 [facility] HospitalPhosphorus Dreag3333-85-04 08:02:00* Test Item Value Reference Range Interpretation Comments Phosphorus Level (test code = OTW7358) 4.3 2.3-4.7 [facility] HospitalIron Kbqzj7719-39-51 08:02:00* Test Item Value Reference Range Interpretation Comments Iron Level (test code = 2498-4) 41 50-170 L [facility] HospitalTotal Iron Binding Smgiwaal1173-81-62 08:02:00* Test Item Value Reference Range Interpretation Comments Total Iron Binding Capacity (test code = 2500-7) 456 261-4 78 [facility] HospitalPercent Iron Dvjhxsmhqz6658-15-36 08:02:00* Test Item Value Reference Range Interpretation Comments Percent Iron Saturation (test code = 2502-3) 9 15-50 L [facility] HospitalTransferrin2018-07-09 08:02:00* Test Item Value Reference Range Interpretation Comments Transferrin (test code = 3034-6) 326 180-382 [facility] HospitalPhosphorus Dtvqd4844-56-14 08:02:00* Test Item Value Reference Range Interpretation Comments Phosphorus Level (test code = EXS3448) 4.3 2.3-4.7 [facility] HospitalIron Lhnmy4314-48-41 08:02:00* Test Item Value Reference Range Interpretation Comments Iron Level (test code = 2498-4) 41 50-170 L [facility] HospitalTotal Iron Binding Jhahvuyl9857-58-62 08:02:00* Test Item Value Reference Range Interpretation Comments Total Iron Binding Capacity (test code = 2500-7) 456 261-4 78 [facility] HospitalPercent Iron Itwslrccue1213-08-22 08:02:00* Test Item Value Reference Range Interpretation Comments Percent Iron Saturation (test code = 2502-3) 9 15-50 L [facility] HospitalTransferrin2018-07-09 08:02:00* Test Item Value Reference Range Interpretation Comments Transferrin (test code = 3034-6) 326 180-382 [facility] HospitalPhosphorus Ydfgz1983-10-34 08:02:00* Test Item Value Reference Range Interpretation Comments Phosphorus Level (test code = GMV8227) 4.3 2.3-4.7 [facility] HospitalIron Ficfc1424-95-28 08:02:00* Test Item Value Reference Range Interpretation Comments Iron Level (test code = 2498-4) 41 50-170 L [facility] HospitalTotal Iron Binding Sawujtvf0982-57-65 08:02:00* Test Item Value Reference Range Interpretation Comments Total Iron Binding Capacity (test code = 2500-7) 456 261-4 78 [facility] HospitalPercent Iron Qpzcokjysd3770-45-50 08:02:00* Test Item Value Reference Range Interpretation Comments Percent Iron Saturation (test code = 2502-3) 9 15-50 L [facility] HospitalTransferrin2018-07-09 08:02:00* Test Item Value Reference Range Interpretation Comments Transferrin (test code = 3034-6) 326 180-382 [facility] HospitalPhosphorus Cnzne3115-18-40 08:02:00* Test Item Value Reference Range Interpretation Comments Phosphorus Level (test code = LYD9833) 4.3 2.3-4.7 [facility] HospitalPhosphorus Wmlkm4235-19-24 08:02:00* Test Item Value Reference Range Interpretation Comments Phosphorus Level (test code = JBN6038) 4.3 2.3-4.7 [facility] HospitalPhosphorus Wcemw9630-77-14 08:02:00* Test Item Value Reference Range Interpretation Comments Phosphorus Level (test code = KFS1597) 4.3 2.3-4.7 [facility] HospitalPhosphorus Azsgi8792-34-35 08:02:00* Test Item Value Reference Range Interpretation Comments Phosphorus Level (test code = NSG3398) 4.3 2.3-4.7 [facility] HospitalPhosphorus Diglq1170-35-84 08:02:00* Test Item Value Reference Range Interpretation Comments Phosphorus Level (test code = LSW1551) 4.3 2.3-4.7 [facility]2018-07-09 08:02:00* Test Item Value Reference Range Interpretation Comments Phosphorus Level (test code = DSP2953) 4.3 2.3-4.7 [facility] HospitalPhosphorCommunity [facility] [place] CityTslyj2720-71-73 08:02:00* Test Item Value Reference Range Interpretation Comments Phosphorus Level (test code = KVF5534) 4.3 2.3-4.7 [facility] HospitalThyroid Stimulating Hormone (TSH) 2018-01-14 06:38:00* Test Item Value Reference Range Interpretation Comments Thyroid Stimulating Hormone (TSH) (test code = 63879-1) 1.682 0.350-4.940 [facility] HospitalThyroid Stimulating Hormone (TSH) 2018-01-14 06:38:00* Test Item Value Reference Range Interpretation Comments Thyroid Stimulating Hormone (TSH) (test code = 52979-4) 1.682 0.350-4.940 [facility] HospitalThyroid Stimulating Hormone (TSH) 2018-01-14 06:38:00* Test Item Value Reference Range Interpretation Comments Thyroid Stimulating Hormone (TSH) (test code = 27713-1) 1.682 0.350-4.940 [facility] HospitalThyroid Stimulating Hormone (TSH) 2018-01-14 06:38:00* Test Item Value Reference Range Interpretation Comments Thyroid Stimulating Hormone (TSH) (test code = 00039-5) 1.682 0.350-4.940 [facility] HospitalThyroid Stimulating Hormone (TSH) 2018-01-14 06:38:00* Test Item Value Reference Range Interpretation Comments Thyroid Stimulating Hormone (TSH) (test code = 49904-6) 1.682 0.350-4.940 [facility] HospitalThyroid Stimulating Hormone (TSH) 2018-01-14 06:38:00* Test Item Value Reference Range Interpretation Comments Thyroid Stimulating Hormone (TSH) (test code = 48130-7) 1.682 0.350-4.940 [facility] HospitalThyroid Stimulating Hormone (TSH) 2018-01-14 06:38:00* Test Item Value Reference Range Interpretation Comments Thyroid Stimulating Hormone (TSH) (test code = 53943-2) 1.682 0.350-4.940 [facility] HospitalThyroid Stimulating Hormone (TSH) 2018-01-14 06:38:00* Test Item Value Reference Range Interpretation Comments Thyroid Stimulating Hormone (TSH) (test code = 62014-1) 1.682 0.350-4.940 [facility] HospitalThyroid Stimulating Hormone (TSH) 2018-01-14 06:38:00* Test Item Value Reference Range Interpretation Comments Thyroid Stimulating Hormone (TSH) (test code = 75274-7) 1.682 0.350-4.940 [facility] HospitalThyroid Stimulating Hormone (TSH) 2018-01-14 06:38:00* Test Item Value Reference Range Interpretation Comments Thyroid Stimulating Hormone (TSH) (test code = 34865-5) 1.682 0.350-4.940 [facility] HospitalCT ABDOMEN/PELVIS TV0411-89-77 22:09:00 [place] [address] Patient Name: BELIA VIGIL MR #: [id number] : 1980 Age/Sex: 37/F Req #: [id number] Adm Physician: Ordered by: IMMANUEL RANKIN MD Report #: [id number] Location: [facility] parmar/Bed: Procedure: [id number] CT/CT ABDOMEN/PELVIS WO Exam Date: Exam Time: [...] of the right kidney. Signed by: Dr. Rea Johnson M.D. on 01/12/2018 10:22 PM Dictated By: REA JOHNSON MD 21 COPY TO: IMMANUEL MCKEON MD Uiisbjthxfai0555-04-04 20:28:00* Test Item Value Reference Range Interpretation Comments Microcytosis (test code = 741-9) SLIGHT [facility] HospitalMicrocytosis2018-07-06 20:28:00* Test Item Value Reference Range Interpretation Comments Microcytosis (test code = 741-9) SLIGHT [facility] HospitalMicrocytosis2018-07-06 20:28:00* Test Item Value Reference Range Interpretation Comments Microcytosis (test code = 741-9) SLIGHT [facility] HospitalMicrocytosis2018-07-06 20:28:00* Test Item Value Reference Range Interpretation Comments Microcytosis (test code = 741-9) SLIGHT [facility] HospitalMicrocytosis2018-07-06 20:28:00* Test Item Value Reference Range Interpretation Comments Microcytosis (test code = 741-9) SLIGHT [facility] HospitalMicrocytosis2018-07-06 20:28:00* Test Item Value Reference Range Interpretation Comments Microcytosis (test code = 741-9) SLIGHT [facility] HospitalMicrocytosis2018-07-06 20:28:00* Test Item Value Reference Range Interpretation Comments Microcytosis (test code = 741-9) SLIGHT [facility] HospitalMicrocytosis2018-07-06 20:28:00* Test Item Value Reference Range Interpretation Comments Microcytosis (test code = 741-9) SLIGHT [facility] HospitalMicrocytosis2018-07-06 20:28:00* Test Item Value Reference Range Interpretation Comments Microcytosis (test code = 741-9) SLIGHT [facility] HospitalMicrocytosis2018-07-06 20:28:00* Test Item Value Reference Range Interpretation Comments Microcytosis (test code = 741-9) SLIGHT [facility] HospitalAmylase Zmiuc9089-08-59 20:02:00* Test Item Value Reference Range Interpretation Comments Amylase Level (test code = 1798-8) 41 25-125 [facility] Test Item Value Reference Range Interpretation Comments Lipase (test code = 3040-3) 13 8-78 [facility] [id number] 20:02:00* Test Item Value Reference Range Interpretation Comments Amylase Level (test code = 1798-8) 41 25-125 [facility] [id number] 19:28:00* Test Item Value Reference Range Interpretation Comments Urine WBC (test code = 5821-4) 6-10 0-5 H [facility] [id number] 19:28:00* Test Item Value Reference Range Interpretation Comments Urine RBC (test code = 55315-1) 0-5 0-5 [facility] [id number] 19:28:00* Test Item Value Reference Range Interpretation Comments Urine Bacteria (test code = 40456-8) MANY NONE H [facility] Epithelial [id number] 19:28:00 * Test Item Value Reference Range Interpretation Comments Urine Epithelial Cells (test code = 04793-7) RARE NONE [facility] [id number] 19:28:00* Test Item Value Reference Range Interpretation Comments Urine Mucus (test code = 8247-9) FEW RARE H [facility] [id number] 19:15:00* Test Item Value Reference Range Interpretation Comments Urine Color (test code = 5778-6) YELLOW YELLOW [facility] [id number] 19:15:00* Test Item Value Reference Range Interpretation Comments Urine Clarity (test code = 31060-4) SL CLOUDY CLEAR [facility] Specific [id number] 19:15:00 * Test Item Value Reference Range Interpretation Comments Urine Specific [place] (test code = 5811-5) 1.025 1.010-1.02 5 [facility] [id number] 19:15:00* Test Item Value Reference Range Interpretation Comments Urine pH (test code = 71106-3) 6 5-7 [facility] Leukocyte [id number] 19:15:00* Test Item Value Reference Range Interpretation Comments Urine Leukocyte Esterase (test code = 5799-2) NEGATIVE NEGATIVE [facility] [id number] 19:15:00* Test Item Value Reference Range Interpretation Comments Urine Nitrite (test code = 54861-1) [facility] [id number] 19:15:00* Test Item Value Reference Range Interpretation Comments Urine Protein (test code = 5804-0) TRACE NEGATIVE [facility] Glucose (UA)2018-01-12 19:15:00* Test Item Value Reference Range Interpretation Comments Urine Glucose (UA) (test code = 2349-9) NEGATIVE NEGATIVE [facility] [id number] 19:15:00* Test Item Value Reference Range Interpretation Comments Urine Ketones (test code = 43518-1) NEGATIVE NEGATIVE [facility] [id number] 19:15:00* Test Item Value Reference Range Interpretation Comments Urine Urobilinogen (test code = 05557-9) 0.2 0.2-1 [facility] [id number] 19:15:00* Test Item Value Reference Range Interpretation Comments Urine Bilirubin (test code = 1978-6) 1+ [facility]GATIVE [facility] [id number] 19:15:00* Test Item Value Reference Range Interpretation Comments Urine Blood (test code = 32480-3) NEGATIVE NEGATIVE [facility] [id number] 19:15:00* Test Item Value Reference Range Interpretation Comments Urine Test (test code = 2106-3) NEGATIVE NEGATIVE [facility] HospitalCOMPRE[facility]ENSIVE METABOLIC [id number] 12:48:00* Test Item Value Reference Range Interpretation Comments TOTAL PROTEIN (BEAKER) (test code = 770) 6.5 gm/dL 6.0-8.3 ALBUMIN (BEAKER) (test code = 1145) 3.6 g/dL 3.5-5.0 ALKALINE PHOSPHATASE (BEAKER) (test code = 346) 112 U/L 40-150 BILIRUBIN TOTAL (BEAKER) (test code = 377) 0.1 mg/dL 0.2-1.2 L SODIUM (BEAKER) (test code = 381) 140 meq/L 136-145 POTASSIUM (BEAKER) (test code = 379) 3.9 meq/L 3.5-5.1 CHLORIDE (BEAKER) (test code = 382) 110 meq/L 98-107 H CO2 (BEAKER) (test code = 355) 25 meq/L 22-29 BLOOD UREA NITROGEN (BEAKER) (test code = 354) 7 mg/dL 7-21 CREATININE (BEAKER) (test code = 358) 0.60 mg/dL 0.57-1.25 GLUCOSE RANDOM (BEAKER) (test code = 652) 102 mg/dL 70-105 CALCIUM (BEAKER) (test code = 697) 8.9 mg/dL 8.4-10.2 AST (SGOT) (BEAKER) (test code = 353) 26 U/L 5-34 ALT (SGPT) (BEAKER) (test code = 347) 38 U/L 6-55 EGFR (BEAKER) (test code = 1092) 112 mL/min/1.73 sq m ESTIMATED GFR IS NOT ACCURATE CREATININE CLEARANCE IN PREDICTING GLOMERULAR FILTRATION RATE. ESTIMATED GFR IS NOT APPLICABLE FOR DIALYSIS PATIENTS. CBC W/PLT COUNT & AUTO [id number] 12:26:00* Test Item Value Reference Range Interpretation Comments WHITE BLOOD CELL COUNT (BEAKER) (test code = 775) 4.7 K/ L 3.5- 10.5 RED BLOOD CELL COUNT (BEAKER) (test code = 761) 3.32 M/ L 3.93-5 .22 L HEMOGLOBIN (BEAKER) (test code = 410) 8.2 GM/DL 11.2-15.7 L HEMATOCRIT (BEAKER) (test code = 411) 26.5 % 34.1-44.9 L MEAN CORPUSCULAR VOLUME (BEAKER) (test code = 753) 79.8 fL 79. 4-94.8 MEAN CORPUSCULAR HEMOGLOBIN (BEAKER) (test code = 751) 24.7 pg 25.6-32.2 L MEAN CORPUSCULAR HEMOGLOBIN CONC (BEAKER) (test code = 752) 30.9 GM/DL 32.2-35.5 L RED CELL DISTRIBUTION WIDTH (BEAKER) (test code = 412) 19.1 % 11.7-14.4 H PLATELET COUNT (BEAKER) (test code = 756) 264 K/CU MM 150-450 MEAN PLATELET VOLUME (BEAKER) (test code = 754) 9.9 fL 9.4-12 .3 NUCLEATED RED BLOOD CELLS (BEAKER) (test code = 413) 0 /100 WBC 0 -0 NEUTROPHILS RELATIVE PERCENT (BEAKER) (test code = 429) 43 % LYMPHOCYTES RELATIVE PERCENT (BEAKER) (test code = 430) 34 % MONOCYTES RELATIVE PERCENT (BEAKER) (test code = 431) 12 % EOSINOPHILS RELATIVE PERCENT (BEAKER) (test code = 432) 11 % BASOPHILS RELATIVE PERCENT (BEAKER) (test code = 437) 0 % NEUTROPHILS ABSOLUTE COUNT (BEAKER) (test code = 670) 1.98 K/ L 1.56-6.13 LYMPHOCYTES ABSOLUTE COUNT (BEAKER) (test code = 414) 1.58 K/ L 1.18-3.74 MONOCYTES ABSOLUTE COUNT (BEAKER) (test code = 415) 0.54 K/ L 0. 24-0.36 H EOSINOPHILS ABSOLUTE COUNT (BEAKER) (test code = 416) 0.53 K/ L 0.04-0.36 H BASOPHILS ABSOLUTE COUNT (BEAKER) (test code = 417) 0.01 K/ L 0. 01-0.08 IMMATURE GRANULOCYTES-RELATIVE PERCENT (BEAKER) (test code = 2801) 0 % 0-1 AFB CULTURE + [id number] 12:58:00* Test Item Value Reference Range Interpretation Comments CULTURE (BEAKER) (test code = 1095) No acid-fast bacilli isolate d in 42 days AFB SMEAR (BEAKER) (test code = 994) No acid fast bacilli seen AFB CULTURE + [id number] 12:58:00* Test Item Value Reference Range Interpretation Comments CULTURE (BEAKER) (test code = 1095) No acid-fast bacilli isolate d in 42 days AFB SMEAR (BEAKER) (test code = 994) No acid fast bacilli seen BASIC METABOLIC [id number] 07:18:00* Test Item Value Reference Range Interpretation Comments SODIUM (BEAKER) (test code = 381) 136 meq/L 136-145 POTASSIUM (BEAKER) (test code = 379) 4.4 meq/L 3.5-5.1 CHLORIDE (BEAKER) (test code = 382) 100 meq/L 98-107 CO2 (BEAKER) (test code = 355) 25 meq/L 22-29 BLOOD UREA NITROGEN (BEAKER) (test code = 354) 8 mg/dL 7-21 CREATININE (BEAKER) (test code = 358) 0.74 mg/dL 0.57-1.25 GLUCOSE RANDOM (BEAKER) (test code = 652) 142 mg/dL 70-105 H CALCIUM (BEAKER) (test code = 697) 9.8 mg/dL 8.4-10.2 EGFR (BEAKER) (test code = 1092) 88 mL/min/1.73 sq m ESTIMATED GFR IS NOT ACCURATE CREATININE CLEARANCE IN PREDICTING GLOMERULAR FILTRATION RATE. ESTIMATED GFR IS NOT APPLICABLE FOR DIALYSIS PATIENTS. CBC W/PLT COUNT & AUTO [id number] 06:15:00* Test Item Value Reference Range Interpretation Comments WHITE BLOOD CELL COUNT (BEAKER) (test code = 775) 6.5 K/ L 3.5- 10.5 RED BLOOD CELL COUNT (BEAKER) (test code = 761) 3.50 M/ L 3.93-5 .22 L HEMOGLOBIN (BEAKER) (test code = 410) 8.8 GM/DL 11.2-15.7 L HEMATOCRIT (BEAKER) (test code = 411) 28.1 % 34.1-44.9 L MEAN CORPUSCULAR VOLUME (BEAKER) (test code = 753) 80.3 fL 79. 4-94.8 MEAN CORPUSCULAR HEMOGLOBIN (BEAKER) (test code = 751) 25.1 pg 25.6-32.2 L MEAN CORPUSCULAR HEMOGLOBIN CONC (BEAKER) (test code = 752) 31.3 GM/DL 32.2-35.5 L RED CELL DISTRIBUTION WIDTH (BEAKER) (test code = 412) 19.3 % 11.7-14.4 H PLATELET COUNT (BEAKER) (test code = 756) 300 K/CU MM 150-450 MEAN PLATELET VOLUME (BEAKER) (test code = 754) 10.3 fL 9.4-12 .3 NUCLEATED RED BLOOD CELLS (BEAKER) (test code = 413) 0 /100 WBC 0 -0 NEUTROPHILS RELATIVE PERCENT (BEAKER) (test code = 429) 44 % LYMPHOCYTES RELATIVE PERCENT (BEAKER) (test code = 430) 37 % MONOCYTES RELATIVE PERCENT (BEAKER) (test code = 431) 11 % EOSINOPHILS RELATIVE PERCENT (BEAKER) (test code = 432) 7 % BASOPHILS RELATIVE PERCENT (BEAKER) (test code = 437) 0 % NEUTROPHILS ABSOLUTE COUNT (BEAKER) (test code = 670) 2.89 K/ L 1.56-6.13 LYMPHOCYTES ABSOLUTE COUNT (BEAKER) (test code = 414) 2.41 K/ L 1.18-3.74 MONOCYTES ABSOLUTE COUNT (BEAKER) (test code = 415) 0.74 K/ L 0. 24-0.36 H EOSINOPHILS ABSOLUTE COUNT (BEAKER) (test code = 416) 0.43 K/ L 0.04-0.36 H BASOPHILS ABSOLUTE COUNT (BEAKER) (test code = 417) 0.02 K/ L 0. 01-0.08 IMMATURE GRANULOCYTES-RELATIVE PERCENT (BEAKER) (test code = 2801) 1 % 0-1 BASIC METABOLIC [id number] 10:04:00* Test Item Value Reference Range Interpretation Comments SODIUM (BEAKER) (test code = 381) 138 meq/L 136-145 POTASSIUM (BEAKER) (test code = 379) 4.4 meq/L 3.5-5.1 CHLORIDE (BEAKER) (test code = 382) 102 meq/L 98-107 CO2 (BEAKER) (test code = 355) 29 meq/L 22-29 BLOOD UREA NITROGEN (BEAKER) (test code = 354) 10 mg/dL 7-21 CREATININE (BEAKER) (test code = 358) 0.70 mg/dL 0.57-1.25 GLUCOSE RANDOM (BEAKER) (test code = 652) 136 mg/dL 70-105 H CALCIUM (BEAKER) (test code = 697) 10.5 mg/dL 8.4-10.2 H EGFR (BEAKER) (test code = 1092) 94 mL/min/1.73 sq m ESTIMATED GFR IS NOT ACCURATE CREATININE CLEARANCE IN PREDICTING GLOMERULAR FILTRATION RATE. ESTIMATED GFR IS NOT APPLICABLE FOR DIALYSIS PATIENTS. CBC W/PLT COUNT & AUTO [id number] 09:42:00* Test Item Value Reference Range Interpretation Comments WHITE BLOOD CELL COUNT (BEAKER) (test code = 775) 7.9 K/ L 3.5- 10.5 RED BLOOD CELL COUNT (BEAKER) (test code = 761) 3.45 M/ L 3.93-5 .22 L HEMOGLOBIN (BEAKER) (test code = 410) 8.5 GM/DL 11.2-15.7 L HEMATOCRIT (BEAKER) (test code = 411) 27.4 % 34.1-44.9 L MEAN CORPUSCULAR VOLUME (BEAKER) (test code = 753) 79.4 fL 79. 4-94.8 MEAN CORPUSCULAR HEMOGLOBIN (BEAKER) (test code = 751) 24.6 pg 25.6-32.2 L MEAN CORPUSCULAR HEMOGLOBIN CONC (BEAKER) (test code = 752) 31.0 GM/DL 32.2-35.5 L RED CELL DISTRIBUTION WIDTH (BEAKER) (test code = 412) 18.9 % 11.7-14.4 H PLATELET COUNT (BEAKER) (test code = 756) 237 K/CU MM 150-450 MEAN PLATELET VOLUME (BEAKER) (test code = 754) 10.5 fL 9.4-12 .3 NUCLEATED RED BLOOD CELLS (BEAKER) (test code = 413) 0 /100 WBC 0 -0 NEUTROPHILS RELATIVE PERCENT (BEAKER) (test code = 429) 65 % LYMPHOCYTES RELATIVE PERCENT (BEAKER) (test code = 430) 22 % MONOCYTES RELATIVE PERCENT (BEAKER) (test code = 431) 8 % EOSINOPHILS RELATIVE PERCENT (BEAKER) (test code = 432) 5 % BASOPHILS RELATIVE PERCENT (BEAKER) (test code = 437) 0 % NEUTROPHILS ABSOLUTE COUNT (BEAKER) (test code = 670) 5.09 K/ L 1.56-6.13 LYMPHOCYTES ABSOLUTE COUNT (BEAKER) (test code = 414) 1.73 K/ L 1.18-3.74 MONOCYTES ABSOLUTE COUNT (BEAKER) (test code = 415) 0.63 K/ L 0. 24-0.36 H EOSINOPHILS ABSOLUTE COUNT (BEAKER) (test code = 416) 0.38 K/ L 0.04-0.36 H BASOPHILS ABSOLUTE COUNT (BEAKER) (test code = 417) 0.03 K/ L 0. 01-0.08 IMMATURE GRANULOCYTES-RELATIVE PERCENT (BEAKER) (test code = 2801) 0 % 0-1 BLOOD [id number] 00:00:00* Test Item Value Reference Range Interpretation Comments CULTURE (BEAKER) (test code = 1095) No growth in 5 days BLOOD [id number] 00:00:00* Test Item Value Reference Range Interpretation Comments CULTURE (BEAKER) (test code = 1095) No growth in 5 days URINALYSIS W/ [id number] 15:13:00* Test Item Value Reference Range Interpretation Comments COLOR (BEAKER) (test code = 470) Yellow CLARITY (BEAKER) (test code = 469) Hazy SPECIFIC GRAVITY UA (BEAKER) (test code = 468) 1.010 1.001-1 .035 PH UA (BEAKER) (test code = 467) 7.0 5.0-8.0 PROTEIN UA (BEAKER) (test code = 464) 30 mg/dL Negative A GLUCOSE UA (BEAKER) (test code = 365) Negative Negative KETONES UA (BEAKER) (test code = 371) Negative Negative BILIRUBIN UA (BEAKER) (test code = 462) Negative Negative BLOOD UA (BEAKER) (test code = 461) Large Negative A NITRITE UA (BEAKER) (test code = 465) Negative Negative LEUKOCYTE ESTERASE UA (BEAKER) (test code = 466) Negative Negat ivonne UROBILINOGEN UA (BEAKER) (test code = 463) 0.2 mg/dL 0.2-1.0 RBC UA (BEAKER) (test code = 519) 1 /HPF WBC UA (BEAKER) (test code = 520) 1 /HPF BACTERIA (BEAKER) (test code = 517) Few SQUAMOUS EPITHELIAL (BEAKER) (test code = 516) 6 /HPF SOURCE(BEAKER) (test code = 7745) Urine, Clean Catch BASIC METABOLIC [id number] 06:38:00* Test Item Value Reference Range Interpretation Comments SODIUM (BEAKER) (test code = 381) 137 meq/L 136-145 POTASSIUM (BEAKER) (test code = 379) 4.2 meq/L 3.5-5.1 CHLORIDE (BEAKER) (test code = 382) 103 meq/L 98-107 CO2 (BEAKER) (test code = 355) 25 meq/L 22-29 BLOOD UREA NITROGEN (BEAKER) (test code = 354) 11 mg/dL 7-21 CREATININE (BEAKER) (test code = 358) 0.72 mg/dL 0.57-1.25 GLUCOSE RANDOM (BEAKER) (test code = 652) 102 mg/dL 70-105 CALCIUM (BEAKER) (test code = 697) 9.2 mg/dL 8.4-10.2 EGFR (BEAKER) (test code = 1092) 91 mL/min/1.73 sq m ESTIMATED GFR IS NOT ACCURATE CREATININE CLEARANCE IN PREDICTING GLOMERULAR FILTRATION RATE. ESTIMATED GFR IS NOT APPLICABLE FOR DIALYSIS PATIENTS. CBC W/PLT COUNT & AUTO [id number] 05:59:00* Test Item Value Reference Range Interpretation Comments WHITE BLOOD CELL COUNT (BEAKER) (test code = 775) 7.9 K/ L 3.5- 10.5 RED BLOOD CELL COUNT (BEAKER) (test code = 761) 3.31 M/ L 3.93-5 .22 L HEMOGLOBIN (BEAKER) (test code = 410) 8.2 GM/DL 11.2-15.7 L HEMATOCRIT (BEAKER) (test code = 411) 26.5 % 34.1-44.9 L MEAN CORPUSCULAR VOLUME (BEAKER) (test code = 753) 80.1 fL 79. 4-94.8 MEAN CORPUSCULAR HEMOGLOBIN (BEAKER) (test code = 751) 24.8 pg 25.6-32.2 L MEAN CORPUSCULAR HEMOGLOBIN CONC (BEAKER) (test code = 752) 30.9 GM/DL 32.2-35.5 L RED CELL DISTRIBUTION WIDTH (BEAKER) (test code = 412) 18.9 % 11.7-14.4 H PLATELET COUNT (BEAKER) (test code = 756) 223 K/CU MM 150-450 MEAN PLATELET VOLUME (BEAKER) (test code = 754) 11.0 fL 9.4-12 .3 NUCLEATED RED BLOOD CELLS (BEAKER) (test code = 413) 0 /100 WBC 0 -0 NEUTROPHILS RELATIVE PERCENT (BEAKER) (test code = 429) 56 % LYMPHOCYTES RELATIVE PERCENT (BEAKER) (test code = 430) 29 % MONOCYTES RELATIVE PERCENT (BEAKER) (test code = 431) 11 % EOSINOPHILS RELATIVE PERCENT (BEAKER) (test code = 432) 4 % BASOPHILS RELATIVE PERCENT (BEAKER) (test code = 437) 0 % NEUTROPHILS ABSOLUTE COUNT (BEAKER) (test code = 670) 4.39 K/ L 1.56-6.13 LYMPHOCYTES ABSOLUTE COUNT (BEAKER) (test code = 414) 2.28 K/ L 1.18-3.74 MONOCYTES ABSOLUTE COUNT (BEAKER) (test code = 415) 0.84 K/ L 0. 24-0.36 H EOSINOPHILS ABSOLUTE COUNT (BEAKER) (test code = 416) 0.31 K/ L 0.04-0.36 BASOPHILS ABSOLUTE COUNT (BEAKER) (test code = 417) 0.02 K/ L 0. 01-0.08 IMMATURE GRANULOCYTES-RELATIVE PERCENT (BEAKER) (test code = 2801) 1 % 0-1 URINE [id number] 11:31:00* Test Item Value Reference Range Interpretation Comments CULTURE (BEAKER) (test code = 1095) ENTEROBACTER AEROGENES A 10-19,000 col/mL Enterobacter aerogenesAmpC Positive Amikacin (test code = 1) S Aztreonam (test code = 32) R Cefepime (test code = 51) R Cefoxitin (test code = 68) R Ceftazidime (test code = 27) R Ceftriaxone (test code = 52) R Ertapenem (test code = 38) S Gentamicin (test code = 18) R Levofloxacin (test code = 22) S Meropenem (test code = 34) S Nitrofurantoin (test code = 23) R Piperacillin + Tazobactam (test code = 29) R Tetracycline (test code = 2) R Tobramycin (test code = 25) R Trimethoprim + Sulfamethoxazole (test code = 47) R CULTURE (BEAKER) (test code = 1095) VANCOMYCIN RESISTANT ENTEROC OCCUS SPECIES A >100,000 col/mL Vancomycin resistant Ent erococcus speciesThis is an appended report. These organism results have been appended to a previously final verified report. Ampicillin (test code = 26) R Linezolid (test code = 40) S Nitrofurantoin (test code = 23) R Tetracycline (test code = 2) R Vancomycin (test code = 13) R Daptomycin (test code = 59) S [id number] 06:18:00* Test Item Value Reference Range Interpretation Comments PHOSPHORUS (BEAKER) (test code = 604) 3.8 mg/dL 2.3-4.7 [id number] 06:18:00* Test Item Value Reference Range Interpretation Comments MAGNESIUM (BEAKER) (test code = 627) 2.2 mg/dL 1.6-2.6 BASIC METABOLIC [id number] 06:18:00* Test Item Value Reference Range Interpretation Comments SODIUM (BEAKER) (test code = 381) 137 meq/L 136-145 POTASSIUM (BEAKER) (test code = 379) 4.4 meq/L 3.5-5.1 CHLORIDE (BEAKER) (test code = 382) 106 meq/L 98-107 CO2 (BEAKER) (test code = 355) 23 meq/L 22-29 BLOOD UREA NITROGEN (BEAKER) (test code = 354) 9 mg/dL 7-21 CREATININE (BEAKER) (test code = 358) 0.75 mg/dL 0.57-1.25 GLUCOSE RANDOM (BEAKER) (test code = 652) 89 mg/dL 70-105 CALCIUM (BEAKER) (test code = 697) 9.5 mg/dL 8.4-10.2 EGFR (BEAKER) (test code = 1092) 86 mL/min/1.73 sq m ESTIMATED GFR IS NOT ACCURATE CREATININE CLEARANCE IN PREDICTING GLOMERULAR FILTRATION RATE. ESTIMATED GFR IS NOT APPLICABLE FOR DIALYSIS PATIENTS. HEPATIC FUNCTION [id number] 06:18:00* Test Item Value Reference Range Interpretation Comments TOTAL PROTEIN (BEAKER) (test code = 770) 6.8 gm/dL 6.0-8.3 ALBUMIN (BEAKER) (test code = 1145) 4.0 g/dL 3.5-5.0 BILIRUBIN TOTAL (BEAKER) (test code = 377) 0.1 mg/dL 0.2-1.2 L BILIRUBIN DIRECT (BEAKER) (test code = 706) 0.1 mg/dL 0.1-0.5 ALKALINE PHOSPHATASE (BEAKER) (test code = 346) 123 U/L 40-150 AST (SGOT) (BEAKER) (test code = 353) 23 U/L 5-34 ALT (SGPT) (BEAKER) (test code = 347) 19 U/L 6-55 CBC W/PLT COUNT & AUTO [id number] 06:00:00* Test Item Value Reference Range Interpretation Comments WHITE BLOOD CELL COUNT (BEAKER) (test code = 775) 9.0 K/ L 3.5- 10.5 RED BLOOD CELL COUNT (BEAKER) (test code = 761) 3.66 M/ L 3.93-5 .22 L HEMOGLOBIN (BEAKER) (test code = 410) 8.7 GM/DL 11.2-15.7 L HEMATOCRIT (BEAKER) (test code = 411) 30.0 % 34.1-44.9 L MEAN CORPUSCULAR VOLUME (BEAKER) (test code = 753) 82.0 fL 79. 4-94.8 MEAN CORPUSCULAR HEMOGLOBIN (BEAKER) (test code = 751) 23.8 pg 25.6-32.2 L MEAN CORPUSCULAR HEMOGLOBIN CONC (BEAKER) (test code = 752) 29.0 GM/DL 32.2-35.5 L RED CELL DISTRIBUTION WIDTH (BEAKER) (test code = 412) 19.0 % 11.7-14.4 H PLATELET COUNT (BEAKER) (test code = 756) 217 K/CU MM 150-450 MEAN PLATELET VOLUME (BEAKER) (test code = 754) 11.1 fL 9.4-12 .3 NUCLEATED RED BLOOD CELLS (BEAKER) (test code = 413) 0 /100 WBC 0 -0 NEUTROPHILS RELATIVE PERCENT (BEAKER) (test code = 429) 55 % LYMPHOCYTES RELATIVE PERCENT (BEAKER) (test code = 430) 28 % MONOCYTES RELATIVE PERCENT (BEAKER) (test code = 431) 10 % EOSINOPHILS RELATIVE PERCENT (BEAKER) (test code = 432) 4 % BASOPHILS RELATIVE PERCENT (BEAKER) (test code = 437) 0 % NEUTROPHILS ABSOLUTE COUNT (BEAKER) (test code = 670) 4.96 K/ L 1.56-6.13 LYMPHOCYTES ABSOLUTE COUNT (BEAKER) (test code = 414) 2.50 K/ L 1.18-3.74 MONOCYTES ABSOLUTE COUNT (BEAKER) (test code = 415) 0.88 K/ L 0. 24-0.36 H EOSINOPHILS ABSOLUTE COUNT (BEAKER) (test code = 416) 0.37 K/ L 0.04-0.36 H BASOPHILS ABSOLUTE COUNT (BEAKER) (test code = 417) 0.02 K/ L 0. 01-0.08 IMMATURE GRANULOCYTES-RELATIVE PERCENT (BEAKER) (test code = 2801) 3 % 0-1 H [id number] 06:20:00* Test Item Value Reference Range Interpretation Comments PHOSPHORUS (BEAKER) (test code = 604) 4.1 mg/dL 2.3-4.7 [id number] 06:20:00* Test Item Value Reference Range Interpretation Comments MAGNESIUM (BEAKER) (test code = 627) 2.3 mg/dL 1.6-2.6 BASIC METABOLIC [id number] 06:20:00* Test Item Value Reference Range Interpretation Comments SODIUM (BEAKER) (test code = 381) 138 meq/L 136-145 POTASSIUM (BEAKER) (test code = 379) 4.3 meq/L 3.5-5.1 CHLORIDE (BEAKER) (test code = 382) 107 meq/L 98-107 CO2 (BEAKER) (test code = 355) 22 meq/L 22-29 BLOOD UREA NITROGEN (BEAKER) (test code = 354) 15 mg/dL 7-21 CREATININE (BEAKER) (test code = 358) 0.81 mg/dL 0.57-1.25 GLUCOSE RANDOM (BEAKER) (test code = 652) 101 mg/dL 70-105 CALCIUM (BEAKER) (test code = 697) 9.2 mg/dL 8.4-10.2 EGFR (BEAKER) (test code = 1092) 79 mL/min/1.73 sq m ESTIMATED GFR IS NOT ACCURATE CREATININE CLEARANCE IN PREDICTING GLOMERULAR FILTRATION RATE. ESTIMATED GFR IS NOT APPLICABLE FOR DIALYSIS PATIENTS. HEPATIC FUNCTION [id number] 06:20:00* Test Item Value Reference Range Interpretation Comments TOTAL PROTEIN (BEAKER) (test code = 770) 6.6 gm/dL 6.0-8.3 ALBUMIN (BEAKER) (test code = 1145) 3.8 g/dL 3.5-5.0 BILIRUBIN TOTAL (BEAKER) (test code = 377) 0.2 mg/dL 0.2-1.2 BILIRUBIN DIRECT (BEAKER) (test code = 706) 0.1 mg/dL 0.1-0.5 ALKALINE PHOSPHATASE (BEAKER) (test code = 346) 142 U/L 40-150 AST (SGOT) (BEAKER) (test code = 353) 25 U/L 5-34 ALT (SGPT) (BEAKER) (test code = 347) 18 U/L 6-55 CBC W/PLT COUNT & AUTO [id number] 06:10:00* Test Item Value Reference Range Interpretation Comments WHITE BLOOD CELL COUNT (BEAKER) (test code = 775) 10.1 K/ L 3.5- 10.5 RED BLOOD CELL COUNT (BEAKER) (test code = 761) 3.47 M/ L 3.93-5 .22 L HEMOGLOBIN (BEAKER) (test code = 410) 8.5 GM/DL 11.2-15.7 L HEMATOCRIT (BEAKER) (test code = 411) 28.4 % 34.1-44.9 L MEAN CORPUSCULAR VOLUME (BEAKER) (test code = 753) 81.8 fL 79. 4-94.8 MEAN CORPUSCULAR HEMOGLOBIN (BEAKER) (test code = 751) 24.5 pg 25.6-32.2 L MEAN CORPUSCULAR HEMOGLOBIN CONC (BEAKER) (test code = 752) 29.9 GM/DL 32.2-35.5 L RED CELL DISTRIBUTION WIDTH (BEAKER) (test code = 412) 19.0 % 11.7-14.4 H PLATELET COUNT (BEAKER) (test code = 756) 192 K/CU MM 150-450 MEAN PLATELET VOLUME (BEAKER) (test code = 754) 12.2 fL 9.4-12 .3 NUCLEATED RED BLOOD CELLS (BEAKER) (test code = 413) 0 /100 WBC 0 -0 NEUTROPHILS RELATIVE PERCENT (BEAKER) (test code = 429) 54 % LYMPHOCYTES RELATIVE PERCENT (BEAKER) (test code = 430) 28 % MONOCYTES RELATIVE PERCENT (BEAKER) (test code = 431) 9 % EOSINOPHILS RELATIVE PERCENT (BEAKER) (test code = 432) 4 % BASOPHILS RELATIVE PERCENT (BEAKER) (test code = 437) 0 % NEUTROPHILS ABSOLUTE COUNT (BEAKER) (test code = 670) 5.48 K/ L 1.56-6.13 LYMPHOCYTES ABSOLUTE COUNT (BEAKER) (test code = 414) 2.81 K/ L 1.18-3.74 MONOCYTES ABSOLUTE COUNT (BEAKER) (test code = 415) 0.87 K/ L 0. 24-0.36 H EOSINOPHILS ABSOLUTE COUNT (BEAKER) (test code = 416) 0.39 K/ L 0.04-0.36 H BASOPHILS ABSOLUTE COUNT (BEAKER) (test code = 417) 0.04 K/ L 0. 01-0.08 IMMATURE GRANULOCYTES-RELATIVE PERCENT (BEAKER) (test code = 2801) 5 % 0-1 H HEMOGLOBIN [id number] 14:08:00* Test Item Value Reference Range Interpretation Comments HEMOGLOBIN A1C (BEAKER) (test code = 368) 5.9 % 4.3-6.1 CBC W/PLT COUNT & AUTO [id number] 12:20:00* Test Item Value Reference Range Interpretation Comments WHITE BLOOD CELL COUNT (BEAKER) (test code = 775) 16.6 K/ L 3.5- 10.5 H RED BLOOD CELL COUNT (BEAKER) (test code = 761) 3.89 M/ L 3.93-5 .22 L HEMOGLOBIN (BEAKER) (test code = 410) 9.4 GM/DL 11.2-15.7 L HEMATOCRIT (BEAKER) (test code = 411) 31.8 % 34.1-44.9 L MEAN CORPUSCULAR VOLUME (BEAKER) (test code = 753) 81.7 fL 79. 4-94.8 MEAN CORPUSCULAR HEMOGLOBIN (BEAKER) (test code = 751) 24.2 pg 25.6-32.2 L MEAN CORPUSCULAR HEMOGLOBIN CONC (BEAKER) (test code = 752) 29.6 GM/DL 32.2-35.5 L RED CELL DISTRIBUTION WIDTH (BEAKER) (test code = 412) 18.6 % 11.7-14.4 H PLATELET COUNT (BEAKER) (test code = 756) 211 K/CU MM 150-450 MEAN PLATELET VOLUME (BEAKER) (test code = 754) 10.5 fL 9.4-12 .3 NUCLEATED RED BLOOD CELLS (BEAKER) (test code = 413) 0 /100 WBC 0 -0 (CELLAVISION MANUAL DIFF)[id number] 12:20:00* Test Item Value Reference Range Interpretation Comments NEUTROPHILS - REL (CELLAVISION)(BEAKER) (test code = 2816) 80 % LYMPHOCYTES - REL (CELLAVISION)(BEAKER) (test code = 2817) 15 % MONOCYTES - REL (CELLAVISION)(BEAKER) (test code = 2818) 2 % EOSINOPHILS - REL (CELLAVISION)(BEAKER) (test code = 2819) 3 % NEUTROPHILS - ABS (CELLAVISION)(BEAKER) (test code = 2830) 13.28 K/ul 1.56-6.13 H LYMPHOCYTES - ABS (CELLAVISION)(BEAKER) (test code = 2831) 2.49 K/ul 1.18-3.74 MONOCYTES - ABS (CELLAVISION)(BEAKER) (test code = 2832) 0.33 K/uL 0.24-0.36 EOSINOPHILS - ABS (CELLAVISION)(BEAKER) (test code = 2834) 0.50 K/uL 0.04-0.36 H TOTAL COUNTED (BEAKER) (test code = 1351) 100 WBC MORPHOLOGY (BEAKER) (test code = 487) Normal PLT MORPHOLOGY (BEAKER) (test code = 486) Normal POLYCHROMATOPHILLIC RBCS(BEAKER) (test code = 478) 2+ moderate ANISOCYTOSIS (BEAKER) (test code = 961) 2+ moderate OVALOCYTES (BEAKER) (test code = 477) 1+ few TEAR DROP CELLS (BEAKER) (test code = 481) 1+ few JACKSON CELLS (BEAKER) (test code = 474) 2+ moderate ARTIFACT (CELLAVISION)(BEAKER) (test code = 3432) Present PLATELET CONCENTRATION (CELLAVISION)(BEAKER) (test code = 3438) Theresa quate Received comment: User comments: Slide comments: TSH/FREE T4 IF INDICATED 2017-12-20 07:01:00* Test Item Value Reference Range Interpretation Comments THYROID STIMULATING HORMONE (BEAKER) (test code = 772) 3.12 uIU/mL 0.35-4.94 [id number] 06:29:00* Test Item Value Reference Range Interpretation Comments PHOSPHORUS (BEAKER) (test code = 604) 4.2 mg/dL 2.3-4.7 [id number] 06:29:00* Test Item Value Reference Range Interpretation Comments MAGNESIUM (BEAKER) (test code = 627) 2.1 mg/dL 1.6-2.6 BASIC METABOLIC [id number] 06:29:00* Test Item Value Reference Range Interpretation Comments SODIUM (BEAKER) (test code = 381) 138 meq/L 136-145 POTASSIUM (BEAKER) (test code = 379) 3.8 meq/L 3.5-5.1 CHLORIDE (BEAKER) (test code = 382) 106 meq/L 98-107 CO2 (BEAKER) (test code = 355) 19 meq/L 22-29 L BLOOD UREA NITROGEN (BEAKER) (test code = 354) 11 mg/dL 7-21 CREATININE (BEAKER) (test code = 358) 0.75 mg/dL 0.57-1.25 GLUCOSE RANDOM (BEAKER) (test code = 652) 90 mg/dL 70-105 CALCIUM (BEAKER) (test code = 697) 9.7 mg/dL 8.4-10.2 EGFR (BEAKER) (test code = 1092) 86 mL/min/1.73 sq m ESTIMATED GFR IS NOT ACCURATE CREATININE CLEARANCE IN PREDICTING GLOMERULAR FILTRATION RATE. ESTIMATED GFR IS NOT APPLICABLE FOR DIALYSIS PATIENTS. LIPID [id number] 06:29:00* Test Item Value Reference Range Interpretation Comments TRIGLYCERIDES (BEAKER) (test code = 540) 280 mg/dL CHOLESTEROL (BEAKER) (test code = 631) 156 mg/dL HDL CHOLESTEROL (BEAKER) (test code = 976) 25 mg/dL LDL CHOLESTEROL CALCULATED (BEAKER) (test code = 633) 75 mg/dL Triglyceride Reference Range: Low Risk <150 Borderline 150-199 High Risk 200-499 Very High Risk >=500Cholesterol Reference Range: Low Risk <200 Borderline 200-239 High Risk >240HDL Cholesterol Reference Range: Low Risk >=60 High Risk <40LDL Cholesterol Reference Range: Optimal <100 Near Optimal 100-129 Borderline 130-159 High 160-189 Very High >=190 HEPATIC FUNCTION [id number] 06:29:00* Test Item Value Reference Range Interpretation Comments TOTAL PROTEIN (BEAKER) (test code = 770) 7.8 gm/dL 6.0-8.3 ALBUMIN (BEAKER) (test code = 1145) 4.5 g/dL 3.5-5.0 BILIRUBIN TOTAL (BEAKER) (test code = 377) 0.3 mg/dL 0.2-1.2 BILIRUBIN DIRECT (BEAKER) (test code = 706) 0.1 mg/dL 0.1-0.5 ALKALINE PHOSPHATASE (BEAKER) (test code = 346) 170 U/L 40-150 H AST (SGOT) (BEAKER) (test code = 353) 25 U/L 5-34 ALT (SGPT) (BEAKER) (test code = 347) 19 U/L 6-55 LACTIC ACID, VENOUS, WHOLE [id number] 05:18:00* Test Item Value Reference Range Interpretation Comments LACTATE BLOOD VENOUS (2) (BEAKER) (test code = 2872) 0.8 mmol/L 0 .5-2.2 Effective 11/11/2015: Units/Reference Range ChangeNew: 0.5-2.2 mmol/L Previous: 5 -20 mg/dLCBC W/PLT COUNT & AUTO [id number] 20:09:00* Test Item Value Reference Range Interpretation Comments WHITE BLOOD CELL COUNT (BEAKER) (test code = 775) 19.6 K/ L 3.5- 10.5 H RED BLOOD CELL COUNT (BEAKER) (test code = 761) 3.66 M/ L 3.93-5 .22 L HEMOGLOBIN (BEAKER) (test code = 410) 9.3 GM/DL 11.2-15.7 L HEMATOCRIT (BEAKER) (test code = 411) 29.3 % 34.1-44.9 L MEAN CORPUSCULAR VOLUME (BEAKER) (test code = 753) 80.1 fL 79. 4-94.8 MEAN CORPUSCULAR HEMOGLOBIN (BEAKER) (test code = 751) 25.4 pg 25.6-32.2 L MEAN CORPUSCULAR HEMOGLOBIN CONC (BEAKER) (test code = 752) 31.7 GM/DL 32.2-35.5 L RED CELL DISTRIBUTION WIDTH (BEAKER) (test code = 412) 18.4 % 11.7-14.4 H PLATELET COUNT (BEAKER) (test code = 756) 195 K/CU MM 150-450 MEAN PLATELET VOLUME (BEAKER) (test code = 754) 10.5 fL 9.4-12 .3 NUCLEATED RED BLOOD CELLS (BEAKER) (test code = 413) 0 /100 WBC 0 -0 (CELLAVISION MANUAL DIFF)2017 20:09:00* Test Item Value Reference Range Interpretation Comments NEUTROPHILS - REL (CELLAVISION)(BEAKER) (test code = 2816) 74 % LYMPHOCYTES - REL (CELLAVISION)(BEAKER) (test code = 2817) 13 % MONOCYTES - REL (CELLAVISION)(BEAKER) (test code = 2818) 3 % EOSINOPHILS - REL (CELLAVISION)(BEAKER) (test code = 2819) 3 % MYELOCYTES - REL (CELLAVISION)(BEAKER) (test code = 2822) 1 % 0-0 H PROMYELOCYTES - REL (CELLAVSION)(BEAKER) (test code = 2825) 1 % 0-0 H BANDS - REL (CELLAVISION)(BEAKER) (test code = 2826) 5 % 0 -10 NEUTROPHILS - ABS (CELLAVISION)(BEAKER) (test code = 2830) 14.50 K/ul 1.56-6.13 H LYMPHOCYTES - ABS (CELLAVISION)(BEAKER) (test code = 2831) 2.55 K/ul 1.18-3.74 MONOCYTES - ABS (CELLAVISION)(BEAKER) (test code = 2832) 0.59 K/uL 0.24-0.36 H EOSINOPHILS - ABS (CELLAVISION)(BEAKER) (test code = 2834) 0.59 K/uL 0.04-0.36 H MYELOCYTES-ABS (CELLAVISION)(BEAKER) (test code = 2837) 0.20 K/uL 0.00-0.00 H PROMYELOCYTES - ABS (CELLAVISION)(BEAKER) (test code = 2838) 0.20 K/uL 0.00-0.00 H BANDS - ABS (CELLAVISION)(BEAKER) (test code = 2840) 0.98 K/uL 0 .00-0.80 H TOTAL COUNTED (BEAKER) (test code = 1351) 100 GIANT PLATELETS (BEAKER) (test code = 313) Present TOXIC GRANULATION (BEAKER) (test code = 771) Present POLYCHROMATOPHILLIC RBCS(BEAKER) (test code = 478) 1+ few ANISOCYTOSIS (BEAKER) (test code = 961) 2+ moderate MICROCYTES (BEAKER) (test code = 965) 2+ moderate POIKILOCYTES (BEAKER) (test code = 966) 2+ moderate ELLIPTOCYTES (BEAKER) (test code = 962) 1+ few TEAR DROP CELLS (BEAKER) (test code = 481) 1+ few ARTIFACT (CELLAVISION)(BEAKER) (test code = 3432) Present PLATELET CONCENTRATION (CELLAVISION)(BEAKER) (test code = 3438) Theresa quate Received comment: User comments: Slide comments: CT, [id number] 18:05:00 Reason for exam:->abdominal painIs the patient [...] Gomez Verified Date/Time: 2017 18:05:33 Reading Location: [address] Consult Reading Room Electronically signed by: KERRI GOMEZ M.D. on 2017 06:05 PM AL[place]INE [id number] 17:42:00* Test Item Value Reference Range Interpretation Comments ALKALINE PHOSPHATASE (BEAKER) (test code = 346) 173 U/L 40-150 H [id number] 17:42:00* Test Item Value Reference Range Interpretation Comments LIPASE (BEAKER) (test code = 749) 21 U/L 8-78 ALT (SGPT)2017 17:42:00* Test Item Value Reference Range Interpretation Comments ALT (SGPT) (BEAKER) (test code = 347) 19 U/L 6-55 [id number] 17:42:00* Test Item Value Reference Range Interpretation Comments AMYLASE (BEAKER) (test code = 349) 47 U/L 25-125 AST (SGOT)2017 17:42:00* Test Item Value Reference Range Interpretation Comments AST (SGOT) (BEAKER) (test code = 353) 25 U/L 5-34 BASIC METABOLIC [id number] 17:42:00* Test Item Value Reference Range Interpretation Comments SODIUM (BEAKER) (test code = 381) 137 meq/L 136-145 POTASSIUM (BEAKER) (test code = 379) 4.4 meq/L 3.5-5.1 CHLORIDE (BEAKER) (test code = 382) 105 meq/L 98-107 CO2 (BEAKER) (test code = 355) 25 meq/L 22-29 BLOOD UREA NITROGEN (BEAKER) (test code = 354) 12 mg/dL 7-21 CREATININE (BEAKER) (test code = 358) 0.73 mg/dL 0.57-1.25 GLUCOSE RANDOM (BEAKER) (test code = 652) 122 mg/dL 70-105 H CALCIUM (BEAKER) (test code = 697) 9.6 mg/dL 8.4-10.2 EGFR (BEAKER) (test code = 1092) 89 mL/min/1.73 sq m ESTIMATED GFR IS NOT ACCURATE CREATININE CLEARANCE IN PREDICTING GLOMERULAR FILTRATION RATE. ESTIMATED GFR IS NOT APPLICABLE FOR DIALYSIS PATIENTS. URINALYSIS W/ [id number] 17:39:00* Test Item Value Reference Range Interpretation Comments COLOR (BEAKER) (test code = 470) Yellow CLARITY (BEAKER) (test code = 469) Hazy SPECIFIC GRAVITY UA (BEAKER) (test code = 468) 1.011 1.001-1 .035 PH UA (BEAKER) (test code = 467) 6.5 5.0-8.0 PROTEIN UA (BEAKER) (test code = 464) Negative Negative GLUCOSE UA (BEAKER) (test code = 365) Negative Negative KETONES UA (BEAKER) (test code = 371) Negative Negative BILIRUBIN UA (BEAKER) (test code = 462) Negative Negative BLOOD UA (BEAKER) (test code = 461) Negative Negative NITRITE UA (BEAKER) (test code = 465) Negative Negative LEUKOCYTE ESTERASE UA (BEAKER) (test code = 466) Small Negat ivonne A UROBILINOGEN UA (BEAKER) (test code = 463) 0.2 mg/dL 0.2-1.0 RBC UA (BEAKER) (test code = 519) 1 /HPF WBC UA (BEAKER) (test code = 520) 27 /HPF BACTERIA (BEAKER) (test code = 517) Many MUCUS (BEAKER) (test code = 1574) Occasional SQUAMOUS EPITHELIAL (BEAKER) (test code = 516) 9 /HPF SOURCE(BEAKER) (test code = 2795) Urine, Clean Catch RAD, CHEST, 1 VIEW, NON [id number] 17:28:00Reason for exam:->CHEST PAINIs the patient ?->UnknownShould this be performed at the bedside?->YesFINAL REPORT TECHNIQUE: Frontal chest radiograph dated . CLINICAL HISTORY: Chest pain COMPARISON STUDY: chest radiograph dated 11/22/2017 IMPRESSION:Right-sided MediPort is unchanged. Lungs are clear. No pleu ral effusion or pneumothorax. Cardiomediastinal silhouette is normal in size. No pulmonary edema. Bones are unremarkable. Signed: Iris Camara Date/Time: 2017 17:28:16 Reading Location: [facility] Radiology Reading Room P M POCT-LACTIC ACID, [id number] 17:17:00* Test Item Value Reference Range Interpretation Comments POC-LACTIC ACID, VENOUS (BEAKER) (test code = 2805) 1.4 mmol/L 0. 9-1.7 TESTED AT [facility] [address] [place] [address] Clostridium Difficile Toxin A & [id number] 11:20:00* Test Item Value Reference Range Interpretation Comments Clostridium Difficile Toxin A & B (test code = 380901176) NEGATIVE NEGATIVE Testing on stool aspirate specimens is outside chief librarian circulation department claims since specime n type not validated on this assay.[facility] Clostridium Difficile Toxin A & [id number] 11:20:00* Test Item Value Reference Range Interpretation Comments Clostridium Difficile Toxin A & B (test code = 921991974) NEGATIVE NEGATIVE Testing on stool aspirate specimens is outside chief librarian circulation department claims since specime n type not validated on this assay.[facility] Clostridium Difficile Toxin A & [id number] 11:20:00* Test Item Value Reference Range Interpretation Comments Clostridium Difficile Toxin A & B (test code = 494100420) NEGATIVE NEGATIVE Testing on stool aspirate specimens is outside chief librarian circulation department claims since specime n type not validated on this assay.[facility] Clostridium Difficile Toxin A & [id number] 11:20:00* Test Item Value Reference Range Interpretation Comments Clostridium Difficile Toxin A & B (test code = 893884678) NEGATIVE NEGATIVE Testing on stool aspirate specimens is outside chief librarian circulation department claims since specime n type not validated on this assay.[facility] Differential Total Cells [id number] 07:43:00* Test Item Value Reference Range Interpretation Comments Differential Total Cells Counted (test code = Afsaneh boland Total Cells Counted) 100 [facility] HospitalNeutrophils % (Manual)2017 07:43:00 * Test Item Value Reference Range Interpretation Comments Neutrophils % (Manual) (test code = 51555-3) 64 40-74 [facility] HospitalBand Neutrophils %2017 07:43:00* Test Item Value Reference Range Interpretation Comments Band Neutrophils % (test code = 764-1) 1 [facility] HospitalLymphocytes % (Manual)2017 07:43:00 * Test Item Value Reference Range Interpretation Comments Lymphocytes % (Manual) (test code = 737-7) 18 19-48 L [facility] HospitalMonocytes % (Manual)2017 07:43:00* Test Item Value Reference Range Interpretation Comments Monocytes % (Manual) (test code = 744-3) 6 3.4-9.0 [facility] HospitalMetamyelocytes %2017 07:43:00* Test Item Value Reference Range Interpretation Comments Metamyelocytes % (test code = 740-1) 4 0-0 H [facility] HospitalMyelocytes %2017 07:43:00* Test Item Value Reference Range Interpretation Comments Myelocytes % (test code = 749-2) 2 0-0 H [facility] HospitalReactive [id number] 07:43:00* Test Item Value Reference Range Interpretation Comments Reactive Lymphocytes (test code = 32435-4) 5 [facility] HospitalPlatelet [id number] 07:43:00* Test Item Value Reference Range Interpretation Comments Platelet Estimate (test code = 15326-7) ADEQUATE [facility] HospitalPlatelet Morphology [id number] 07:43:00* Test Item Value Reference Range Interpretation Comments Platelet Morphology Comment (test code = 70670-0) NORMAL [facility] HospitalHypochromasia2018-06-12 07:43:00* Test Item Value Reference Range Interpretation Comments Hypochromasia (test code = 728-6) SLIGHT [facility] HospitalPoikilocytosis2018-06-12 07:43:00* Test Item Value Reference Range Interpretation Comments Poikilocytosis (test code = 779-9) SLIGHT [facility] HospitalAnisocytosis2018-06-12 07:43:00* Test Item Value Reference Range Interpretation Comments Anisocytosis (test code = 702-1) SLIGHT [facility] HospitalRed Cell Morphology [id number] 07:43:00* Test Item Value Reference Range Interpretation Comments Red Cell Morphology Comment (test code = 6742-1) NORMAL [facility] HospitalMetamyelocytes %2017 07:43:00* Test Item Value Reference Range Interpretation Comments Metamyelocytes % (test code = 740-1) 4 0-0 H [facility] HospitalReactive Joqhmwyurty7962-37-56 07:43:00* Test Item Value Reference Range Interpretation Comments Reactive Lymphocytes (test code = 01482-1) 5 [facility] HospitalMetamyelocytes %2017 07:43:00* Test Item Value Reference Range Interpretation Comments Metamyelocytes % (test code = 740-1) 4 0-0 H [facility] HospitalReactive [id number] 07:43:00* Test Item Value Reference Range Interpretation Comments Reactive Lymphocytes (test code = 61308-4) 5 [facility] HospitalMetamyelocytes %2017 07:43:00* Test Item Value Reference Range Interpretation Comments Metamyelocytes % (test code = 740-1) 4 0-0 H [facility] HospitalMetamyelocytes %2017 07:43:00* Test Item Value Reference Range Interpretation Comments Metamyelocytes % (test code = 740-1) 4 0-0 H [facility] HospitalMetamyelocytes %2017 07:43:00* Test Item Value Reference Range Interpretation Comments Metamyelocytes % (test code = 740-1) 4 0-0 H [facility] HospitalMetamyelocytes %2017 07:43:00* Test Item Value Reference Range Interpretation Comments Metamyelocytes % (test code = 740-1) 4 0-0 H [facility] HospitalMetamyelocytes %2017 07:43:00* Test Item Value Reference Range Interpretation Comments Metamyelocytes % (test code = 740-1) 4 0-0 H [facility] HospitalMetamyelocytes %2017 07:43:00* Test Item Value Reference Range Interpretation Comments Metamyelocytes % (test code = 740-1) 4 0-0 H [facility] HospitalMetamyelocytes %2017 07:43:00* Test Item Value Reference Range Interpretation Comments Metamyelocytes % (test code = 740-1) 4 0-0 H [facility] HospitalMetamyelocytes %2017 07:43:00* Test Item Value Reference Range Interpretation Comments Metamyelocytes % (test code = 740-1) 4 0-0 H [facility] HospitalWhite Blood [id number] 05:43:00* Test Item Value Reference Range Interpretation Comments White Blood Count (test code = 6690-2) 21.04 4.8-10.8 H [facility] HospitalRed Blood [id number] 05:43:00* Test Item Value Reference Range Interpretation Comments Red Blood Count (test code = 789-8) 3.95 3.6-5.1 [facility] HospitalHemoglobin2018-06-12 05:43:00* Test Item Value Reference Range Interpretation Comments Hemoglobin (test code = 32525-0) 10.0 12.0-16.0 L [facility] HospitalHematocrit2018-06-12 05:43:00* Test Item Value Reference Range Interpretation Comments Hematocrit (test code = 4544-3) 31.4 34.2-44.1 L [facility] HospitalMean Corpuscular Eysxaw9938-12-46 05:43:00* Test Item Value Reference Range Interpretation Comments Mean Corpuscular Volume (test code = 787-2) 79.5 81-99 L [facility] HospitalMean Corpuscular Ozhxyhuudq3354-68-23 05:43:00* Test Item Value Reference Range Interpretation Comments Mean Corpuscular Hemoglobin (test code = 785-6) 25.3 28-32 L [facility] HospitalMean Corpuscular Hemoglobin Concent 2017 05:43:00* Test Item Value Reference Range Interpretation Comments Mean Corpuscular Hemoglobin Concent (test code = 786-4) 31.8 31-35 [facility] HospitalRed Cell Distribution [id number] 05:43:00* Test Item Value Reference Range Interpretation Comments Red Cell Distribution Width (test code = 36187-8) 18.5 11.7 -14.4 H [facility] HospitalPlatelet Gxlif6457-83-25 05:43:00* Test Item Value Reference Range Interpretation Comments Platelet Count (test code = 777-3) 239 140-360 [facility] HospitalNeutrophils (%) (Auto)2017 05:43:00 * Test Item Value Reference Range Interpretation Comments Neutrophils (%) (Auto) (test code = 35860-1) 59.8 38.7-80.0 [facility] HospitalLymphocytes (%) (Auto)2017 05:43:00 * Test Item Value Reference Range Interpretation Comments Lymphocytes (%) (Auto) (test code = 736-9) 21.6 18.0-39.1 [facility] HospitalMonocytes (%) (Auto)2017 05:43:00* Test Item Value Reference Range Interpretation Comments Monocytes (%) (Auto) (test code = 5905-5) 7.6 4.4-11.3 [facility] HospitalEosinophils (%) (Auto)2017 05:43:00 * Test Item Value Reference Range Interpretation Comments Eosinophils (%) (Auto) (test code = 713-8) 2.4 0.0-6.0 [facility] HospitalBasophils (%) (Auto)2017 05:43:00* Test Item Value Reference Range Interpretation Comments Basophils (%) (Auto) (test code = 706-2) 0.5 0.0-1.0 [facility] HospitalIM GRANULOCYTES %2017 05:43:00* Test Item Value Reference Range Interpretation Comments IM GRANULOCYTES % (test code = IM GRANULOCYTES %) 8.1 0.0- 1.0 H [facility] HospitalNeutrophils # (Auto)2017 05:43:00* Test Item Value Reference Range Interpretation Comments Neutrophils # (Auto) (test code = 751-8) 12.6 2.1-6.9 H [facility] HospitalLymphocytes # (Auto)2017 05:43:00* Test Item Value Reference Range Interpretation Comments Lymphocytes # (Auto) (test code = 69708-8) 4.5 1.0-3.2 H [facility] HospitalMonocytes # (Auto)2017 05:43:00* Test Item Value Reference Range Interpretation Comments Monocytes # (Auto) (test code = 742-7) 1.6 0.2-0.8 H [facility] HospitalEosinophils # (Auto)2017 05:43:00* Test Item Value Reference Range Interpretation Comments Eosinophils # (Auto) (test code = 711-2) 0.5 0.0-0.4 H [facility] HospitalBasophils # (Auto)2017 05:43:00* Test Item Value Reference Range Interpretation Comments Basophils # (Auto) (test code = 704-7) 0.1 0.0-0.1 [facility] HospitalAbsolute Immature Granulocyte (auto 2017 05:43:00* Test Item Value Reference Range Interpretation Comments Absolute Immature Granulocyte (auto (may t code = Absolute Immature Granulocyte (auto) 1.70 0-0.1 [facility] Campusodium Jsrtg9714-40-20 14:27:00* Test Item Value Reference Range Interpretation Comments Sodium Level (test code = 2951-2) 137 136-145 [facility] HospitalPotassium Kqecs0832-70-18 14:27:00* Test Item Value Reference Range Interpretation Comments Potassium Level (test code = 2823-3) 3.6 3.5-5.1 [facility] HospitalChloride Rmeki7365-71-86 14:27:00* Test Item Value Reference Range Interpretation Comments Chloride Level (test code = 2075-0) 104 98-107 [facility] HospitalCarbon Dioxide [id number] 14:27:00* Test Item Value Reference Range Interpretation Comments Carbon Dioxide Level (test code = 2028-9) 27 22-29 [facility] HospitalAnion Ror6943-97-84 14:27:00* Test Item Value Reference Range Interpretation Comments Anion Gap (test code = 42842-8) 9.6 8-16 [facility] HospitalBlood Urea Oooriruf3501-55-53 14:27:00* Test Item Value Reference Range Interpretation Comments Blood Urea Nitrogen (test code = 3094-0) 8 7-26 [facility] HospitalCreatinine2018-06-11 14:27:00* Test Item Value Reference Range Interpretation Comments Creatinine (test code = 2160-0) 0.69 0.57-1.11 [facility] HospitalBUN/Creatinine Egruz8641-16-86 14:27:00* Test Item Value Reference Range Interpretation Comments BUN/Creatinine Ratio (test code = 3097-3) 12 6-25 [facility] HospitalEstimat Glomerular Filtration Rate 2017-12-18 14:27:00* Test Item Value Reference Range Interpretation Comments Estimat Glomerular Filtration Rate (test code = 23647-8) 60- >60 Ranges were taken from the National Kidney Disease Education Program and the [facility] Kid[facility] Foundation literature.Reference ranges:60 or greater: Zpbdzk06-09 ( for 3 consecutive months): Chronic kidney disease 15 or less: Kidney failureHouston Methodist West HospitalGlucose Glgyz5368-70-98 14:27:00* Test Item Value Reference Range Interpretation Comments Glucose Level (test code = RAI8195) 119 74-118 H [facility] HospitalCalcium Estml2211-85-47 14:27:00* Test Item Value Reference Range Interpretation Comments Calcium Level (test code = 01973-0) 9.0 8.4-10.2 [facility] HospitalTotal Eacajuxlh9852-12-53 14:27:00* Test Item Value Reference Range Interpretation Comments Total Bilirubin (test code = 1975-2) 0.2 0.2-1.2 [facility] HospitalAspartate Amino Transf (AST/SGOT) 2017-12-18 14:27:00* Test Item Value Reference Range Interpretation Comments Aspartate Amino Transf (AST/SGOT) (test code = Aspartate Amino Transf (AST/SGOT)) 25 5-34 [facility] HospitalAlanine Aminotransferase (ALT/SGPT) 2017-12-18 14:27:00* Test Item Value Reference Range Interpretation Comments Alanine Aminotransferase (ALT/SGPT) (test code = 1742-6) 20 0-55 [facility] HospitalTotal Oyozmlk4104-29-29 14:27:00* Test Item Value Reference Range Interpretation Comments Total Protein (test code = 2885-2) 6.7 6.5-8.1 [facility] HospitalAlbumin2018-06-11 14:27:00* Test Item Value Reference Range Interpretation Comments Albumin (test code = 1751-7) 3.7 3.5-5.0 [facility] HospitalGlobulin2018-06-11 14:27:00* Test Item Value Reference Range Interpretation Comments Globulin (test code = 27844-3) 3.0 2.3-3.5 [facility] HospitalAlbumin/Globulin Insie0083-24-28 14:27:00 * Test Item Value Reference Range Interpretation Comments Albumin/Globulin Ratio (test code = 1759-0) 1.2 0.8-2.0 [facility] HospitalAlkaline Sgacjpkvyrm5182-08-26 14:27:00* Test Item Value Reference Range Interpretation Comments Alkaline Phosphatase (test code = 6768-6) 141 40-150 [facility] HospitalEosinophils % (Manual)2017-12-17 07:53:00 * Test Item Value Reference Range Interpretation Comments Eosinophils % (Manual) (test code = 714-6) 2 0-7 [facility] HospitalBlast Cells %2017-12-15 07:18:00* Test Item Value Reference Range Interpretation Comments Blast Cells % (test code = 27783-9) 1 [facility] HospitalBlast Cells %2017-12-15 07:18:00* Test Item Value Reference Range Interpretation Comments Blast Cells % (test code = 95037-3) 1 [facility] HospitalBlast Cells %2017-12-15 07:18:00* Test Item Value Reference Range Interpretation Comments Blast Cells % (test code = 03308-9) 1 [facility] HospitalBlast Cells %2017-12-15 07:18:00* Test Item Value Reference Range Interpretation Comments Blast Cells % (test code = 29249-9) 1 [facility] HospitalBlast Cells %2017-12-15 07:18:00* Test Item Value Reference Range Interpretation Comments Blast Cells % (test code = 69665-2) 1 [facility] HospitalBlast Cells %2017-12-15 07:18:00* Test Item Value Reference Range Interpretation Comments Blast Cells % (test code = 20852-3) 1 [facility] HospitalBlast Cells %2017-12-15 07:18:00* Test Item Value Reference Range Interpretation Comments Blast Cells % (test code = 54378-8) 1 [facility]2017-[facility]15 07:18:00* Test Item Value Reference Range Interpretation Comments Blast Cells % (test code = 55898-7) 1 [facility] %2017-12-15 07:18:00* Test Item Value Reference Range Interpretation Comments Blast Cells % (test code = 57354-6) 1 [facility] %2017-12-15 07:18:00* Test Item Value Reference Range Interpretation Comments Blast Cells % (test code = 22258-7) 1 [facility] %2017-12-15 07:18:00* Test Item Value Reference Range Interpretation Comments Blast Cells % (test code = 32716-6) 1 [facility] HospitalPhosphorus Oystn1625-43-38 06:09:00* Test Item Value Reference Range Interpretation Comments Phosphorus Level (test code = ZTI8500) 3.4 2.3-4.7 [facility] HospitalMagnesium Gqild3500-56-55 06:09:00* Test Item Value Reference Range Interpretation Comments Magnesium Level (test code = 22021-9) 1.8 1.3-2.1 [facility]PELVIS NX8717-20-20 16:32:00 [facility] [address] [place] [address] Patient Name: BELIA VIGIL MR #: [id number] : 1980 Age/Sex: 36/F Req #: [id number] Adm Physician: JESUS MELENDEZ MD Ordered by: AL HYDE MD Report #: [id number] Location: ED/SURG3 Room/Bed: [facility] Procedure: [id number] CT/CT A BDOMEN/PELVIS WO Exam Date: 12/14/17 [...] sagittal multiplanar reformations were [place]. COMPARISON: [facility], CT, CT ABDOMEN/PELVIS WO, , 10:56. [facility], CT, CT CHEST WO, 12/13/2017, 13:44. [...] at 16:32 Dictated By: ANGEL PIERCE MD 1632 Transcribed By: KALINA on 12/14/17 1632 COPY TO: AL HYDE MD [place] Uyvhzt6599-97-09 10:57:00* Test Item Value Reference Range Interpretation Comments [place] Bodies (test code = 7793-3) [facility]2018-06-07 10:57:00* Test Item Value Reference Range Interpretation Comments Elliptocytes (test code = 68362-5) SLIGHT [facility] Ialzge8812-50-64 10:57:00* Test Item Value Reference Range Interpretation Comments [place] Bodies (test code = 7793-3) [facility] 10:57:00* Test Item Value Reference Range Interpretation Comments Elliptocytes (test code = 21997-6) SLIGHT [facility] Crgvoy8617-03-98 10:57:00* Test Item Value Reference Range Interpretation Comments [place] Bodies (test code = 7793-3) FEW [facility]2018-06-07 10:57:00* Test Item Value Reference Range Interpretation Comments Elliptocytes (test code = 30583-1) [facility] Ihffju9453-83-99 10:57:00* Test Item Value Reference Range Interpretation Comments [place] Bodies (test code = 7793-3) [facility]-07 10:57:00* Test Item Value Reference Range Interpretation Comments Elliptocytes (test code = 08599-0) [facility] Bggnki2998-21-40 10:57:00* Test Item Value Reference Range Interpretation Comments [place] Bodies (test code = 7793-3) FEW [facility]2018-06-07 10:57:00* Test Item Value Reference Range Interpretation Comments Elliptocytes (test code = 47905-9) [facility] Jkccme2163-86-67 10:57:00* Test Item Value Reference Range Interpretation Comments [place] Bodies (test code = 7793-3) FEW [facility]2018-06-07 10:57:00* Test Item Value Reference Range Interpretation Comments Elliptocytes (test code = 25382-3) [facility] Myzlvs4250-90-02 10:57:00* Test Item Value Reference Range Interpretation Comments [place] Bodies (test code = 7793-3) FEW [facility]2018-06-07 10:57:00* Test Item Value Reference Range Interpretation Comments Elliptocytes (test code = 57353-5) [facility] Zyvjoc5071-75-15 10:57:00* Test Item Value Reference Range Interpretation Comments [place] Bodies (test code = 7793-3) [facility]2018-06-07 10:57:00* Test Item Value Reference Range Interpretation Comments Elliptocytes (test code = 03791-7) [facility]IGHT [facility] Uiroll2898-18-32 10:57:00* Test Item Value Reference Range Interpretation Comments [place] Bodies (test code = 7793-3) [facility] 10:57:00* Test Item Value Reference Range Interpretation Comments Elliptocytes (test code = 56279-9) [facility] Xypgqc9449-74-42 10:57:00* Test Item Value Reference Range Interpretation Comments [place] Bodies (test code = 7793-3) FEW [facility]2018-06-07 10:57:00* Test Item Value Reference Range Interpretation Comments Elliptocytes (test code = 86003-7) [facility]IGHT [facility] Qcvapt5215-97-96 10:57:00* Test Item Value Reference Range Interpretation Comments [place] Bodies (test code = 7793-3) [facility]2018-06-07 10:57:00* Test Item Value Reference Range Interpretation Comments Elliptocytes (test code = 23519-7) [facility]IGHT [facility] AZT7915-37-62 07:40:00 [place] [address] Patient Name: BELIA VIGIL MR #: [id number] : 1980 Age/Sex: 37/F Req #: [id number] Adm Physician: AL HYDE MD Ordered by: AL HYDE MD Report #: [id number] Location: MED/SURG3 Room/Bed: [facility] Procedure: [id number] MARGARITA/OLIVER AL PROCEDURE IN EQUIPMENT APPLICATION SPECIALIST Exam Date: Exam Time: REPORT STATUS: Signed Non-tunneled Central Venous Catheter Placement 018 Pre-Procedure Diagnosis: Poor IV access; pancreatic cancer. Post-proc edure Diagnosis:Poor IV access; pancreatic cancer. Sales And Leasing Consultant: Sidney Hernandez Cleaning Laborer: None Sedation: None. 1% lidocaine local anesthesia. Radiatio n Dose:36.3 cGycm2 (Dose Area Product) Fluoroscopy time:0.8 minutes Estim ate blood loss: <5 mL Blood administered: None Complications: None Implants/Grafts: 20 cm 7-Libyan 3 lumen CVC Specimen: None Procedure: Informed [...] removed and the patient transferred to the Promotion Manager. A timeout was repeated. Using real- time ultrasound guidance a 21 gauge vascular needle was used to access the left internal jugular vein. An image was stored in the electronic medical record. A wire was advanced across the right atrium under fluoroscopy. Again, there was some difficulty passing the microwire through the left brachiocephalic vein. The needle was exchanged for a 5-Libyan transition sheath and 035 Glidewire advanced across [...] generated with voice-recognition technology. E rrors in sdet can occur. Please interpret accordingly and contact a r adiologist if there are any questions regarding the report. Signed by: Dr Cathryn Hernandez M.D. on 12/14/2017 7:46 AM Dictated By: SHERINE HERNANDEZ MD 2 Transcribed By: WAYNE on 12/19/17922 COPY TO: AL HYDE MD IR CONSULT 2017-12-14 07:40:00 [place] [address] Patient Name: BELIA VIGIL MR #: [id number] : 1980 Age/Sex: 37/F Req #: [id number] Adm Physician: AL HYDE MD Ordered by: AL HYDE MD Report #: [id number] Location: MED/SURG3 Room/Bed: [facility] Procedure: [id number] DX/IR CO NSULT Exam Date: Exam Time: REPORT STATUS: S igned Non-tunneled Central Venous Catheter Placement 12/13/2017 Pre-Proced ure Diagnosis: Poor IV access; pancreatic cancer. Post-procedure Diagnosis:Poo r IV access; pancreatic cancer. Sales And Leasing Consultant: Sidney Hernandez Cleaning Laborer: None Sedation: None. 1% lidocaine local anesthesia. [...] of the left internal jugular vein (see jennifer lara below). The left neck was prepped and draped in standard fashion. U sing real-time ultrasound guidance a 21 gauge vascular needle was used to acce ss the left internal jugular vein. An image was stored in the electronic medi tobi record. A wire was advanced while monitoring the patient's cardiac rhythm, resistance was felt after 5 or 6 cm of wire was within the vessel. Given this difficulty wire was removed and the patient transferred to the Promotion Manager. A timeout was repeated. Using real-time ultrasound guidance a 21 gauge vascular needle was used to access the left internal jugular vein. An image was store d in the electronic medical record. A wire was advanced across the right atriu m under fluoroscopy. Again, there was some difficulty passing the microwire through the left brachiocephalic vein. The needle was exchanged for a 5-Libyan transition sheath and 035 Glidewire advanced across [...] generated with voice-recognition technology. E rrors in sdet can occur. Please interpret accordingly and contact a r adiologist if there are any questions regarding the report. Signed by: Dr Cathryn Hernandez M.D. on 12/14/2017 7:46 AM Dictated By: SHERINE HERNANDEZ MD 2 Transcribed By: WAYNE on 12/19/17922 COPY TO: AL HYDE MD GUIDANCE FOR VASCULAR NWPYJ7783-32-63 07:40:00 [place] [address] Patient Name: BELIA VIGIL MR #: [id number] : 1980 Age/Sex: 37/F Req #: [id number] Adm Physician: AL HYDE MD Ordered by: AL HYDE MD Report #: [id number] Location: [facility] Room/Bed: [facility] Procedure: /[facility] ID[facility] FOR VASCULAR ACCES Exam Date: 12/13/17 Exam T angela: 1442 REPORT STATUS: Signed Non-tunneled Central Venous Catheter Pl acement 12/13/2017 Pre-Procedure Diagnosis: Poor IV access; pancreatic cancer . Post-procedure Diagnosis:Poor IV access; pancreatic cancer. Sales And Leasing Consultant: Cecy boyle M.D. Cleaning Laborer: None Sedation: None. 1% lidocaine local anesthesia. Radiation Dose:36.3 cGycm2 (Dose Area Product) Fluoroscopy time:0.8 minut es Estimate blood loss: <5 mL Blood administered: None Complications: None Implants/Grafts: 20 cm 7-Libyan 3 lumen CVC Specimen: None Procedure: Informed [...] removed and the patient transferred to the Promotion Manager. A timeout was repeated. Using real- time ultrasound guidance a 21 gauge vascular needle was used to access the left internal jugular vein. An image was stored in the electronic medical record. A wire was advanced across the right atrium under fluoroscopy. Again, there was some difficulty passing the microwire through the left brachiocephalic vein. The needle was exchanged for a 5-Libyan transition sheath and 035 Glidewire advanced across [...] generated with voice-recognition technology. E rrors in sdet can occur. Please interpret accordingly and contact a r adiologist if there are any questions regarding the report. Signed by: Dr Cathryn Hernandez M.D. on 12/14/2017 7:46 AM Dictated By: SHERINE HERNANDEZ MD 2 Transcribed By: WAYNE on 12/19/17922 COPY TO: AL HYDE MD VQ LUNG SCAN VENT RXOEHDZOA4245-96-65 16:43:00 [place] [address] Patient Name: BELIA VIGIL MR #: [id number] : 1980 Age/Sex: 36/F Re #: [id number] [facility] Physician: JESUS MELENDEZ MD Ordered by: AL HYDE MD Report #: [id number] Location: [facility] Room/Bed: [facility] Procedure: NM/VQ L ARDEN SCAN VENT PERFUSION [...] PIOPED II criteria. Signed by: Dr. Tamiko Duffy M.D. on 12/13/2017 4:46 PM Dictated By: TAMIKO DUFFY MD 7938 Transcribed By: WAYNE on 12/13/17 087 COPY TO: AL HYDE MD CT CHEST [id number] 13:57:00 [facility] [address] [place] [address] Patient Name: BELIA VIGIL MR #: [id number] : 1980 Age/Sex: 36/F Req #: [id number] Adm Physician: JESUS MELENDEZ MD Ordered by: AL HYDE MD Report #: [id number] Location: M ED/SURG3 Room/Bed: [facility] Procedure: CT/CT C HEST WO Exam Date: [...] 12/13/17 1405 COPY TO: AL HYDE MD Basophils % (Manual)2017-12-10 19:53:00* Test Item Value Reference Range Interpretation Comments Basophils % (Manual) (test code = 96978-4) 1 0-1.5 [facility] HospitalNucleated Red Blood Ssqyb4805-43-58 19:53:00* Test Item Value Reference Range Interpretation Comments Nucleated Red Blood Cells (test code = 30986-5) 1 [facility] % (Manual)2017-12-10 19:53:00* Test Item Value Reference Range Interpretation Comments Basophils % (Manual) (test code = 31238-4) 1 0-1.5 [facility] % (Manual)2017-12-10 19:53:00* Test Item Value Reference Range Interpretation Comments Basophils % (Manual) (test code = 94089-1) 1 0-1.5 [facility] % (Manual)2017-12-10 19:53:00* Test Item Value Reference Range Interpretation Comments Basophils % (Manual) (test code = 46504-7) 1 0-1.5 [facility] % (Manual)2017-12-10 19:53:00* Test Item Value Reference Range Interpretation Comments Basophils % (Manual) (test code = 13963-7) 1 0-1.5 [facility] % (Manual)2017-12-10 19:53:00* Test Item Value Reference Range Interpretation Comments Basophils % (Manual) (test code = 12190-3) 1 0-1.5 [facility] % (Manual)2017-12-10 19:53:00* Test Item Value Reference Range Interpretation Comments Basophils % (Manual) (test code = 45447-3) 1 0-1.5 [facility] % (Manual)2017-12-10 19:53:00* Test Item Value Reference Range Interpretation Comments Basophils % (Manual) (test code = 33639-3) 1 0-1.5 [facility] % (Manual)2017-12-10 19:53:00* Test Item Value Reference Range Interpretation Comments Basophils % (Manual) (test code = 42036-8) 1 0-1.5 [facility] % (Manual)2017-12-10 19:53:00* Test Item Value Reference Range Interpretation Comments Basophils % (Manual) (test code = 94211-8) 1 0-1.5 [facility] % (Manual)2017-12-10 19:53:00* Test Item Value Reference Range Interpretation Comments Basophils % (Manual) (test code = 58088-8) 1 0-1.5 [facility] Hospital[facility] [id number] 19:36:00* Test Item Value Reference Range Interpretation Comments Urine WBC (test code = 5821-4) 21-50 0-5 H [facility] Hospital[facility] PQP8039-28-65 19:36:00* Test Item Value Reference Range Interpretation Comments Urine RBC (test code = 71113-7) 0-5 0-5 [facility] Tqoibvbn4781-00-06 19:36:00* Test Item Value Reference Range Interpretation Comments Urine Bacteria (test code = 40919-5) RARE NONE [facility] HospitalU[facility] Epithelial Chtqw1476-30-83 19:36:00 * Test Item Value Reference Range Interpretation Comments Urine Epithelial Cells (test code = 81151-9) FEW NONE [facility] Transitional Epithelial Cells 2017-12-10 19:36:00* Test Item Value Reference Range Interpretation Comments Urine Transitional Epithelial Cells (test code = 8249-5) MODERATE NONE H [facility] Hospital[facility] Qwmax8588-74-54 19:36:00* Test Item Value Reference Range Interpretation Comments Urine Mucus (test code = 8247-9) MANY RARE H [facility] Transitional Epithelial Cells 2017-12-10 19:36:00* Test Item Value Reference Range Interpretation Comments Urine Transitional Epithelial Cells (test code = 8249-5) MODERATE NONE H [facility] Transitional Epithelial Cells 2017-12-10 19:36:00* Test Item Value Reference Range Interpretation Comments Urine Transitional Epithelial Cells (test code = 8249-5) MODERATE NONE H [facility] Hospital[facility] Qavpc6911-31-89 19:25:00* Test Item Value Reference Range Interpretation Comments Urine Color (test code = 5778-6) YELLOW YELLOW [facility] Hospital[facility] Knpghvd7948-15-77 19:25:00* Test Item Value Reference Range Interpretation Comments Urine Clarity (test code = 77142-0) CLEAR CLEAR [facility] HospitalU[facility] Specific Mmoujbo5983-07-59 19:25:00 * Test Item Value Reference Range Interpretation Comments Urine Specific [place] (test code = 5811-5) 1.025 1.010-1.02 5 [facility] [id number] 19:25:00* Test Item Value Reference Range Interpretation Comments Urine pH (test code = 73737-9) 6 5-7 [facility] Leukocyte Xwmfybpq5850-48-05 19:25:00* Test Item Value Reference Range Interpretation Comments Urine Leukocyte Esterase (test code = 5799-2) NEGATIVE NEGATIVE [facility] Ikgkztj2384-35-80 19:25:00* Test Item Value Reference Range Interpretation Comments Urine Nitrite (test code = 30376-2) NEGATIVE NEGATIVE [facility] Nbeqzes0435-75-57 19:25:00* Test Item Value Reference Range Interpretation Comments Urine Protein (test code = 5804-0) TRACE NEGATIVE H [facility] HospitalU[facility] Glucose (UA)2017-12-10 19:25:00* Test Item Value Reference Range Interpretation Comments Urine Glucose (UA) (test code = 2349-9) NEGATIVE NEGATIVE [facility] Hospital[facility] Tnoywgs4021-88-42 19:25:00* Test Item Value Reference Range Interpretation Comments Urine Ketones (test code = 99979-6) NEGATIVE NEGATIVE [facility] Hjksbbtwberl6921-80-56 19:25:00* Test Item Value Reference Range Interpretation Comments Urine Urobilinogen (test code = 13709-0) 0.2 0.2-1 [facility] Nseucvrka2096-33-70 19:25:00* Test Item Value Reference Range Interpretation Comments Urine Bilirubin (test code = 1978-6) NEGATIVE NEGATIVE [facility] Yyjvk5830-61-61 19:25:00* Test Item Value Reference Range Interpretation Comments Urine Blood (test code = 99566-5) NEGATIVE NEGATIVE [facility] HospitalAmylase Gjzyp0546-48-14 18:40:00* Test Item Value Reference Range Interpretation Comments Amylase Level (test code = 1798-8) 41 25-125 [facility] HospitalLipase2018-06-03 18:40:00* Test Item Value Reference Range Interpretation Comments Lipase (test code = 3040-3) 11 8-78 [facility] HospitalU[facility] Renal Epithelial Kdmmz6086-04-64 18:38:00* Test Item Value Reference Range Interpretation Comments Urine Renal Epithelial Cells (test code = 37996-0) RARE NON E H [facility] HospitalUrine Calcium Oxalate Vaokcugv5628-31-37 18:38:00* Test Item Value Reference Range Interpretation Comments Urine Calcium Oxalate Crystals (test code = 5774-5) FEW FE W [facility] HospitalUrine Amorphous Jugdqqsj1392-42-74 18:38:00* Test Item Value Reference Range Interpretation Comments Urine Amorphous Sediment (test code = 8246-1) MODERATE FEW H [facility] HospitalU[facility] Renal Epithelial Oldzv3187-11-89 18:38:00* Test Item Value Reference Range Interpretation Comments Urine Renal Epithelial Cells (test code = 99286-9) RARE NON E H [facility] HospitalUrine Calcium Oxalate Catqwpzm1492-52-19 18:38:00* Test Item Value Reference Range Interpretation Comments Urine Calcium Oxalate Crystals (test code = 5774-5) FEW FE W [facility] HospitalUrine Amorphous Hwpwtnxx5851-56-63 18:38:00* Test Item Value Reference Range Interpretation Comments Urine Amorphous Sediment (test code = 8246-1) MODERATE [facility]W [facility] Epithelial Vpjmf3525-75-45 18:38:00* Test Item Value Reference Range Interpretation Comments Urine Renal Epithelial Cells (test code = 90896-4) RARE NON E [facility] Calcium Oxalate Ixiyekei6799-03-45 18:38:00* Test Item Value Reference Range Interpretation Comments Urine Calcium Oxalate Crystals (test code = 5774-5) FEW [facility] Amorphous Xyuhiatz9871-47-68 18:38:00* Test Item Value Reference Range Interpretation Comments Urine Amorphous Sediment (test code = 8246-1) MODERATE FEW [facility] Renal Epithelial Rryck9783-73-03 18:38:00* Test Item Value Reference Range Interpretation Comments Urine Renal Epithelial Cells (test code = 91611-3) RARE NON E [facility] Calcium Oxalate Ivbiwdie3282-57-94 18:38:00* Test Item Value Reference Range Interpretation Comments Urine Calcium Oxalate Crystals (test code = 5774-5) FEW [facility] Amorphous Rwnvjbsz3059-58-14 18:38:00* Test Item Value Reference Range Interpretation Comments Urine Amorphous Sediment (test code = 8246-1) MODERATE FEW [facility] Renal Epithelial Akbrg5293-05-75 18:38:00* Test Item Value Reference Range Interpretation Comments Urine Renal Epithelial Cells (test code = 48319-1) RARE NON E [facility] Calcium Oxalate Opxlabul0373-70-86 18:38:00* Test Item Value Reference Range Interpretation Comments Urine Calcium Oxalate Crystals (test code = 5774-5) FEW [facility] Amorphous Ipnfykpw5007-58-47 18:38:00* Test Item Value Reference Range Interpretation Comments Urine Amorphous Sediment (test code = 8246-1) MODERATE FEW [facility] Renal Epithelial Ncopj0787-31-38 18:38:00* Test Item Value Reference Range Interpretation Comments Urine Renal Epithelial Cells (test code = 86568-6) RARE NON E [facility] Calcium Oxalate Orcgtsou0604-73-99 18:38:00* Test Item Value Reference Range Interpretation Comments Urine Calcium Oxalate Crystals (test code = 5774-5) FEW [facility] Amorphous Sscqdnqr9114-58-42 18:38:00* Test Item Value Reference Range Interpretation Comments Urine Amorphous Sediment (test code = 8246-1) MODERATE [facility]W [facility] Renal Epithelial Ixcup3167-56-52 18:38:00* Test Item Value Reference Range Interpretation Comments Urine Renal Epithelial Cells (test code = 98228-3) RARE NON E [facility] Calcium Oxalate Daimagsx4918-33-97 18:38:00* Test Item Value Reference Range Interpretation Comments Urine Calcium Oxalate Crystals (test code = 5774-5) FEW [facility] Amorphous Pknecssd7865-03-03 18:38:00* Test Item Value Reference Range Interpretation Comments Urine Amorphous Sediment (test code = 8246-1) MODERATE FEW [facility] Renal Epithelial Ahiou6222-37-35 18:38:00* Test Item Value Reference Range Interpretation Comments Urine Renal Epithelial Cells (test code = 43517-8) RARE NON E [facility] Calcium Oxalate Sjouoayk6400-15-72 18:38:00* Test Item Value Reference Range Interpretation Comments Urine Calcium Oxalate Crystals (test code = 5774-5) FEW [facility] Amorphous Eeeddsjd1415-45-31 18:38:00* Test Item Value Reference Range Interpretation Comments Urine Amorphous Sediment (test code = 8246-1) [facility]ERATE [facility] Ep[facility] Eqwvr1352-64-72 18:38:00* Test Item Value Reference Range Interpretation Comments Urine Renal Epithelial Cells (test code = 69939-7) RARE NON E [facility] Calcium Oxalate Rrktwkbm6019-31-33 18:38:00* Test Item Value Reference Range Interpretation Comments Urine Calcium Oxalate Crystals (test code = 5774-5) FEW [facility] Amorphous Njirghbf7998-50-86 18:38:00* Test Item Value Reference Range Interpretation Comments Urine Amorphous Sediment (test code = 8246-1) MODERATE FEW [facility] Renal Epithelial Lqbmc5315-83-71 18:38:00* Test Item Value Reference Range Interpretation Comments Urine Renal Epithelial Cells (test code = 24379-0) RARE NON E [facility] Calcium Oxalate Qqawxccn6535-99-28 18:38:00* Test Item Value Reference Range Interpretation Comments Urine Calcium Oxalate Crystals (test code = 5774-5) FEW FE [facility] Amorphous Krspnrnw3263-45-98 18:38:00* Test Item Value Reference Range Interpretation Comments Urine Amorphous Sediment (test code = 8246-1) MODERATE FEW [facility] Calcium Oxalate Suwkpduk7606-30-14 18:38:00* Test Item Value Reference Range Interpretation Comments Urine Calcium Oxalate Crystals (test code = 5774-5) FEW FE [facility] Amorphous [id number] 18:38:00* Test Item Value Reference Range Interpretation Comments Urine Amorphous Sediment (test code = 8246-1) [facility] [id number] 12:34:00* Test Item Value Reference Range Interpretation Comments CULTURE (BEAKER) (test code = 1095) No fungus isolated in 28 days FUNGUS SMEAR (BEAKER) (test code = 1406) No fungi seen FUNGUS CULTURE + [id number] 12:34:00* Test Item Value Reference Range Interpretation Comments CULTURE (BEAKER) (test code = 1095) No fungus isolated in 28 days FUNGUS SMEAR (BEAKER) (test code = 1406) No fungi seen BLOOD [id number] 11:00:00* Test Item Value Reference Range Interpretation Comments CULTURE (BEAKER) (test code = 1095) No growth in 5 days BLOOD [id number] 11:00:00* Test Item Value Reference Range Interpretation Comments CULTURE (BEAKER) (test code = 1095) No growth in 5 days CBC W/PLT COUNT & AUTO [id number] 14:19:00* Test Item Value Reference Range Interpretation Comments WHITE BLOOD CELL COUNT (BEAKER) (test code = 775) 10.5 K/ L 3.5- 10.5 RED BLOOD CELL COUNT (BEAKER) (test code = 761) 3.32 M/ L 3.93-5 .22 L HEMOGLOBIN (BEAKER) (test code = 410) 8.0 GM/DL 11.2-15.7 L HEMATOCRIT (BEAKER) (test code = 411) 26.5 % 34.1-44.9 L MEAN CORPUSCULAR VOLUME (BEAKER) (test code = 753) 79.8 fL 79. 4-94.8 MEAN CORPUSCULAR HEMOGLOBIN (BEAKER) (test code = 751) 24.1 pg 25.6-32.2 L MEAN CORPUSCULAR HEMOGLOBIN CONC (BEAKER) (test code = 752) 30.2 GM/DL 32.2-35.5 L RED CELL DISTRIBUTION WIDTH (BEAKER) (test code = 412) 16.8 % 11.7-14.4 H PLATELET COUNT (BEAKER) (test code = 756) 246 K/CU MM 150-450 MEAN PLATELET VOLUME (BEAKER) (test code = 754) 9.4 fL 9.4-12 .3 NUCLEATED RED BLOOD CELLS (BEAKER) (test code = 413) 0 /100 WBC 0 -0 BASIC METABOLIC [id number] 07:21:00* Test Item Value Reference Range Interpretation Comments SODIUM (BEAKER) (test code = 381) 136 meq/L 136-145 POTASSIUM (BEAKER) (test code = 379) 3.7 meq/L 3.5-5.1 CHLORIDE (BEAKER) (test code = 382) 107 meq/L 98-107 CO2 (BEAKER) (test code = 355) 19 meq/L 22-29 L BLOOD UREA NITROGEN (BEAKER) (test code = 354) 14 mg/dL 7-21 CREATININE (BEAKER) (test code = 358) 0.71 mg/dL 0.57-1.25 GLUCOSE RANDOM (BEAKER) (test code = 652) 112 mg/dL 70-105 H CALCIUM (BEAKER) (test code = 697) 9.0 mg/dL 8.4-10.2 EGFR (BEAKER) (test code = 1092) 93 mL/min/1.73 sq m ESTIMATED GFR IS NOT ACCURATE CREATININE CLEARANCE IN PREDICTING GLOMERULAR FILTRATION RATE. ESTIMATED GFR IS NOT APPLICABLE FOR DIALYSIS PATIENTS. CT, CHEST, WITHOUT [id number] 07:12:00FINAL REPORT CT scan of the thorax. [...] upper abdomen as previously described. Signed: Nilson Brotherseport Verified Date/Time: 11/25/2017 07:12:43 Reading Location: [facility] B1 C013Y CT Body Reading Room Electronically signed by: Sidney STUBBS 11/25/2017 07:12 AM CBC (HEMOGRAM ONLY)2017-11-25 05:03:00* Test Item Value Reference Range Interpretation Comments WHITE BLOOD CELL COUNT (BEAKER) (test code = 775) 13.9 K/ L 3.5- 10.5 H RED BLOOD CELL COUNT (BEAKER) (test code = 761) 3.22 M/ L 3.93-5 .22 L HEMOGLOBIN (BEAKER) (test code = 410) 8.1 GM/DL 11.2-15.7 L HEMATOCRIT (BEAKER) (test code = 411) 25.9 % 34.1-44.9 L MEAN CORPUSCULAR VOLUME (BEAKER) (test code = 753) 80.4 fL 79. 4-94.8 MEAN CORPUSCULAR HEMOGLOBIN (BEAKER) (test code = 751) 25.2 pg 25.6-32.2 L MEAN CORPUSCULAR HEMOGLOBIN CONC (BEAKER) (test code = 752) 31.3 GM/DL 32.2-35.5 L RED CELL DISTRIBUTION WIDTH (BEAKER) (test code = 412) 16.6 % 11.7-14.4 H PLATELET COUNT (BEAKER) (test code = 756) 258 K/CU MM 150-450 Discordant PLT result Compared to previous one, Clinical correlation required. MEAN PLATELET VOLUME (BEAKER) (test code = 754) 10.1 fL 9.4-12 .3 NUCLEATED RED BLOOD CELLS (BEAKER) (test code = 413) 0 /100 WBC 0 -0 BASIC METABOLIC [id number] 06:09:00* Test Item Value Reference Range Interpretation Comments SODIUM (BEAKER) (test code = 381) 139 meq/L 136-145 POTASSIUM (BEAKER) (test code = 379) 4.0 meq/L 3.5-5.1 CHLORIDE (BEAKER) (test code = 382) 108 meq/L 98-107 H CO2 (BEAKER) (test code = 355) 22 meq/L 22-29 BLOOD UREA NITROGEN (BEAKER) (test code = 354) 16 mg/dL 7-21 CREATININE (BEAKER) (test code = 358) 0.82 mg/dL 0.57-1.25 GLUCOSE RANDOM (BEAKER) (test code = 652) 114 mg/dL 70-105 H CALCIUM (BEAKER) (test code = 697) 9.7 mg/dL 8.4-10.2 EGFR (BEAKER) (test code = 1092) 78 mL/min/1.73 sq m ESTIMATED GFR IS NOT ACCURATE CREATININE CLEARANCE IN PREDICTING GLOMERULAR FILTRATION RATE. ESTIMATED GFR IS NOT APPLICABLE FOR DIALYSIS PATIENTS. CBC (HEMOGRAM ONLY)2017-11-24 05:48:00* Test Item Value Reference Range Interpretation Comments WHITE BLOOD CELL COUNT (BEAKER) (test code = 775) 6.4 K/ L 3.5- 10.5 RED BLOOD CELL COUNT (BEAKER) (test code = 761) 3.69 M/ L 3.93-5 .22 L HEMOGLOBIN (BEAKER) (test code = 410) 9.0 GM/DL 11.2-15.7 L HEMATOCRIT (BEAKER) (test code = 411) 29.8 % 34.1-44.9 L MEAN CORPUSCULAR VOLUME (BEAKER) (test code = 753) 80.8 fL 79. 4-94.8 MEAN CORPUSCULAR HEMOGLOBIN (BEAKER) (test code = 751) 24.4 pg 25.6-32.2 L MEAN CORPUSCULAR HEMOGLOBIN CONC (BEAKER) (test code = 752) 30.2 GM/DL 32.2-35.5 L RED CELL DISTRIBUTION WIDTH (BEAKER) (test code = 412) 17.1 % 11.7-14.4 H PLATELET COUNT (BEAKER) (test code = 756) 367 K/CU MM 150-450 MEAN PLATELET VOLUME (BEAKER) (test code = 754) 9.9 fL 9.4-12 .3 NUCLEATED RED BLOOD CELLS (BEAKER) (test code = 413) 0 /100 WBC 0 -0 URINE [id number] 14:36:00* Test Item Value Reference Range Interpretation Comments CULTURE (BEAKER) (test code = 1095) No growth BASIC METABOLIC [id number] 06:23:00* Test Item Value Reference Range Interpretation Comments SODIUM (BEAKER) (test code = 381) 139 meq/L 136-145 POTASSIUM (BEAKER) (test code = 379) 4.2 meq/L 3.5-5.1 Specimen slightly hemolyzed CHLORIDE (BEAKER) (test code = 382) 109 meq/L 98-107 H CO2 (BEAKER) (test code = 355) 20 meq/L 22-29 L BLOOD UREA NITROGEN (BEAKER) (test code = 354) 24 mg/dL 7-21 H CREATININE (BEAKER) (test code = 358) 0.90 mg/dL 0.57-1.25 Specimen slightly hemolyzed GLUCOSE RANDOM (BEAKER) (test code = 652) 104 mg/dL 70-105 CALCIUM (BEAKER) (test code = 697) 9.6 mg/dL 8.4-10.2 EGFR (BEAKER) (test code = 1092) 70 mL/min/1.73 sq m ESTIMATED GFR IS NOT ACCURATE CREATININE CLEARANCE IN PREDICTING GLOMERULAR FILTRATION RATE. ESTIMATED GFR IS NOT APPLICABLE FOR DIALYSIS PATIENTS. CBC (HEMOGRAM ONLY)2017-11-23 06:15:00* Test Item Value Reference Range Interpretation Comments WHITE BLOOD CELL COUNT (BEAKER) (test code = 775) 8.7 K/ L 3.5- 10.5 RED BLOOD CELL COUNT (BEAKER) (test code = 761) 3.70 M/ L 3.93-5 .22 L HEMOGLOBIN (BEAKER) (test code = 410) 9.1 GM/DL 11.2-15.7 L HEMATOCRIT (BEAKER) (test code = 411) 30.2 % 34.1-44.9 L MEAN CORPUSCULAR VOLUME (BEAKER) (test code = 753) 81.6 fL 79. 4-94.8 MEAN CORPUSCULAR HEMOGLOBIN (BEAKER) (test code = 751) 24.6 pg 25.6-32.2 L MEAN CORPUSCULAR HEMOGLOBIN CONC (BEAKER) (test code = 752) 30.1 GM/DL 32.2-35.5 L RED CELL DISTRIBUTION WIDTH (BEAKER) (test code = 412) 17.5 % 11.7-14.4 H PLATELET COUNT (BEAKER) (test code = 756) 397 K/CU MM 150-450 MEAN PLATELET VOLUME (BEAKER) (test code = 754) 10.4 fL 9.4-12 .3 NUCLEATED RED BLOOD CELLS (BEAKER) (test code = 413) 0 /100 WBC 0 -0 CT, [id number] 06:35:00Reason for exam:->FEVERReason for exam:->s/p pancreatic debrideIs [...] may reflect constipation. Signed: JR Pickard [facility] Verified Date/Time: 11/22/2017 06:35:20 Reading Location: [facility] C013Y CT Body Reading Room W/PLT COUNT & AUTO [id number] 05:51:00* Test Item Value Reference Range Interpretation Comments WHITE BLOOD CELL COUNT (BEAKER) (test code = 775) 13.4 K/ L 3.5- 10.5 H RED BLOOD CELL COUNT (BEAKER) (test code = 761) 4.09 M/ L 3.93-5 .22 HEMOGLOBIN (BEAKER) (test code = 410) 9.8 GM/DL 11.2-15.7 L HEMATOCRIT (BEAKER) (test code = 411) 32.0 % 34.1-44.9 L MEAN CORPUSCULAR VOLUME (BEAKER) (test code = 753) 78.2 fL 79. 4-94.8 L MEAN CORPUSCULAR HEMOGLOBIN (BEAKER) (test code = 751) 24.0 pg 25.6-32.2 L MEAN CORPUSCULAR HEMOGLOBIN CONC (BEAKER) (test code = 752) 30.6 GM/DL 32.2-35.5 L RED CELL DISTRIBUTION WIDTH (BEAKER) (test code = 412) 17.2 % 11.7-14.4 H PLATELET COUNT (BEAKER) (test code = 756) 429 K/CU MM 150-450 MEAN PLATELET VOLUME (BEAKER) (test code = 754) 9.8 fL 9.4-12 .3 NUCLEATED RED BLOOD CELLS (BEAKER) (test code = 413) 0 /100 WBC 0 -0 NEUTROPHILS RELATIVE PERCENT (BEAKER) (test code = 429) 79 % LYMPHOCYTES RELATIVE PERCENT (BEAKER) (test code = 430) 14 % MONOCYTES RELATIVE PERCENT (BEAKER) (test code = 431) 6 % EOSINOPHILS RELATIVE PERCENT (BEAKER) (test code = 432) 0 % BASOPHILS RELATIVE PERCENT (BEAKER) (test code = 437) 0 % NEUTROPHILS ABSOLUTE COUNT (BEAKER) (test code = 670) 10.61 K/ L 1.56-6.13 H LYMPHOCYTES ABSOLUTE COUNT (BEAKER) (test code = 414) 1.83 K/ L 1.18-3.74 MONOCYTES ABSOLUTE COUNT (BEAKER) (test code = 415) 0.83 K/ L 0. 24-0.36 H EOSINOPHILS ABSOLUTE COUNT (BEAKER) (test code = 416) 0.01 K/ L 0.04-0.36 L BASOPHILS ABSOLUTE COUNT (BEAKER) (test code = 417) 0.02 K/ L 0. 01-0.08 IMMATURE GRANULOCYTES-RELATIVE PERCENT (BEAKER) (test code = 2801) 1 % 0-1 BASIC METABOLIC [id number] 05:43:00* Test Item Value Reference Range Interpretation Comments SODIUM (BEAKER) (test code = 381) 140 meq/L 136-145 POTASSIUM (BEAKER) (test code = 379) 4.3 meq/L 3.5-5.1 CHLORIDE (BEAKER) (test code = 382) 110 meq/L 98-107 H CO2 (BEAKER) (test code = 355) 19 meq/L 22-29 L BLOOD UREA NITROGEN (BEAKER) (test code = 354) 20 mg/dL 7-21 CREATININE (BEAKER) (test code = 358) 0.88 mg/dL 0.57-1.25 GLUCOSE RANDOM (BEAKER) (test code = 652) 134 mg/dL 70-105 H CALCIUM (BEAKER) (test code = 697) 9.9 mg/dL 8.4-10.2 EGFR (BEAKER) (test code = 1092) 72 mL/min/1.73 sq m ESTIMATED GFR IS NOT ACCURATE CREATININE CLEARANCE IN PREDICTING GLOMERULAR FILTRATION RATE. ESTIMATED GFR IS NOT APPLICABLE FOR DIALYSIS PATIENTS. URINALYSIS WITH MICROSCOPIC IF [id number] 05:26:00* Test Item Value Reference Range Interpretation Comments COLOR (BEAKER) (test code = 470) Yellow CLARITY (BEAKER) (test code = 469) Clear SPECIFIC GRAVITY UA (BEAKER) (test code = 468) 1.025 1.001-1 .035 PH UA (BEAKER) (test code = 467) 7.0 5.0-8.0 PROTEIN UA (BEAKER) (test code = 464) 30 mg/dL Negative A GLUCOSE UA (BEAKER) (test code = 365) Negative Negative KETONES UA (BEAKER) (test code = 371) Negative Negative BILIRUBIN UA (BEAKER) (test code = 462) Negative Negative BLOOD UA (BEAKER) (test code = 461) Large Negative A NITRITE UA (BEAKER) (test code = 465) Negative Negative LEUKOCYTE ESTERASE UA (BEAKER) (test code = 466) Trace Negat ivonne A UROBILINOGEN UA (BEAKER) (test code = 463) 0.2 mg/dL 0.2-1.0 SOURCE(BEAKER) (test code = 2795) URINALYSIS [id number] 05:26:00* Test Item Value Reference Range Interpretation Comments RBC UA (BEAKER) (test code = 519) 408 /HPF WBC UA (BEAKER) (test code = 520) 8 /HPF BACTERIA (BEAKER) (test code = 517) Many MUCUS (BEAKER) (test code = 1574) Rare SQUAMOUS EPITHELIAL (BEAKER) (test code = 516) 5 /HPF CASTS (BEAKER) (test code = 1579) 2 /LPF RAD, CHEST, 1 VIEW, NON [id number] 05:12:00Reason for exam:->FEVERShould this be performed at the bedside?->YesFINAL REPORT INDICATION: FEVER COMPARISON: None TECHNIQUE: Single frontal view of the chest. FINDINGS: Lungs and pleura: Clear lungs. No effusion.Heart and mediastinum: Normal heart size. Unremarkable mediastinal contours.Osseous structures: No acute abnormality.Other: Right IJ port catheter terminates over the superior vena cava. The port has been accessed. IMPRESSION: No acute intrathoracic abnormality. Signed: JR Pickard Robert MDRepbrianna Verified Date/Time: 11/22/2017 05:12:11 Reading Location: [facility] B1 C013Y CT Body Reading Room ROBIC [id number] 03:10:00* Test Item Value Reference Range Interpretation Comments CULTURE (BEAKER) (test code = 1095) No anaerobes isolated ANAEROBIC [id number] 03:10:00* Test Item Value Reference Range Interpretation Comments CULTURE (BEAKER) (test code = 1095) No anaerobes isolated TISSUE [id number] 15:12:00Surgical Pathology Report Case: [id number] Authorizing Provider: Kale Buchanan MD Collected: 11/07/2017 0817 Ordering Location: [facility] Received: 11/07/2017 1008 SERVICES Pathologist: Hayley Bedolla MD Specimens: A) - Pancreas, Pancreatic Body mass B) - Soft Tissue, Other, Celiac [place] Mass C) - Pancreas, Pancreatic Abcess This addendum is issued to report immunostains from [facility].RESULT:- NO EVIDENCE OF IgG4 RELATED SCLEROSING DISEASE.Please [...] WITH ADENOCARCINOMA Signing Pathologist Direct Phone Line: [phone] signed by Hayley Bedolla MD on 11/10/2017 at 2:50 PMIDC: Dr. Hugo Quinteros and Dr. Dexter Obrien reviewed the case and agree with the above interpretation.[id number] neoplasm of pancreasA. Pancreatic body mass; B. Celiac ax is mass; C. Pancreatic abscessThe specimen is received in three containers of rmalin all labeled with the patient's information. [...] and its performance cynthia acteristics determined by [facility], Pathology Laboratory. It has not been [...] clinical laboratory testing.SURGICALLY OBTAINED CULTURE + GRAM [id number] 08:42:00* Test Item Value Reference Range Interpretation Comments CULTURE (BEAKER) (test code = 1095) No growth GRAM STAIN RESULT (BEAKER) (test code = 1123) <1+ WBCs GRAM STAIN RESULT (BEAKER) (test code = 61579) No organisms seen SURGICALLY OBTAINED CULTURE + GRAM [id number] 08:42:00* Test Item Value Reference Range Interpretation Comments CULTURE (BEAKER) (test code = 1095) No growth GRAM STAIN RESULT (BEAKER) (test code = 1123) 1+ WBCs GRAM STAIN RESULT (BEAKER) (test code = 18396) No organisms seen CBC (HEMOGRAM ONLY)2017-11-09 05:14:00* Test Item Value Reference Range Interpretation Comments WHITE BLOOD CELL COUNT (BEAKER) (test code = 775) 6.1 K/ L 3.5- 10.5 RED BLOOD CELL COUNT (BEAKER) (test code = 761) 3.31 M/ L 3.93-5 .22 L HEMOGLOBIN (BEAKER) (test code = 410) 8.2 GM/DL 11.2-15.7 L HEMATOCRIT (BEAKER) (test code = 411) 26.7 % 34.1-44.9 L MEAN CORPUSCULAR VOLUME (BEAKER) (test code = 753) 80.7 fL 79. 4-94.8 MEAN CORPUSCULAR HEMOGLOBIN (BEAKER) (test code = 751) 24.8 pg 25.6-32.2 L MEAN CORPUSCULAR HEMOGLOBIN CONC (BEAKER) (test code = 752) 30.7 GM/DL 32.2-35.5 L RED CELL DISTRIBUTION WIDTH (BEAKER) (test code = 412) 16.6 % 11.7-14.4 H PLATELET COUNT (BEAKER) (test code = 756) 283 K/CU MM 150-450 MEAN PLATELET VOLUME (BEAKER) (test code = 754) 10.2 fL 9.4-12 .3 NUCLEATED RED BLOOD CELLS (BEAKER) (test code = 413) 0 /100 WBC 0 -0 TISSUE [id number] 16:25:00Surgical Pathology Report Case: [id number] Authorizing Provider: Moreno Menjivar Collected: 10/24/2017 1806 Ordering Location: [address] Received: 10/25/2017 0808 Service Pathologist: Anel Ritchie MD Specimens: A) - Biopsy, Gastric, Random gastric biopsy (gastric erosions ) B) - Pancreas, PANCREATIC MASS FNA IN FORMALIN This addendum is issued to report the result of immunohistochemical stain for Helicobacter pylori on specimen B: - NEGATIVECPT CODE: [id number] electronically signed by Anel Ritchie MD on [...] DERIC SNOW Signing Pathologist Direct Phone Line: [phone] signed by Anel Ritchie MD on 11/01/2017 at 3:18 PMB. Multiple levels examined. There is abundant necrosis and scant tumor in solid sheets displaying mitoses and desmoplastic stroma. The tumor cells and necrotic debris stain positive for AE1/AE3 and CAM5.2. Synaptophysin, chromogranin, beta-catenin and CD20 are negative. The morphology and immunostain favor adenocarcinoma.64609; 31330; 67926 X 2; 16247 X 5; 10268Dpxrarlsmg mass, gastric erosions A. Random g astric biopsy. B. Pancreatic mass FNASpecimen is received in two containers of f ormalin both labeled with the patient's information.Specimen A: [...] developed and its performance characteristics determined by [facility], Pathology Laboratory. It has not bee n [...] perform high complexity clinical laboratory t valeria.SPIN/CONCENTRATION [id number] 13:15:00* Test Item Value Reference Range Interpretation Comments CONCENTRATION CHARGED (BEAKER) (test code = 2657) Done [id number] 02:54:00* Test Item Value Reference Range Interpretation Comments PHOSPHORUS (BEAKER) (test code = 604) 2.6 mg/dL 2.3-4.7 [id number] 02:54:00* Test Item Value Reference Range Interpretation Comments MAGNESIUM (BEAKER) (test code = 627) 1.6 mg/dL 1.6-2.6 BASIC METABOLIC [id number] 02:54:00* Test Item Value Reference Range Interpretation Comments SODIUM (BEAKER) (test code = 381) 138 meq/L 136-145 POTASSIUM (BEAKER) (test code = 379) 3.8 meq/L 3.5-5.1 CHLORIDE (BEAKER) (test code = 382) 107 meq/L 98-107 CO2 (BEAKER) (test code = 355) 23 meq/L 22-29 BLOOD UREA NITROGEN (BEAKER) (test code = 354) 8 mg/dL 7-21 CREATININE (BEAKER) (test code = 358) 0.75 mg/dL 0.57-1.25 GLUCOSE RANDOM (BEAKER) (test code = 652) 138 mg/dL 70-105 H CALCIUM (BEAKER) (test code = 697) 9.0 mg/dL 8.4-10.2 EGFR (BEAKER) (test code = 1092) 87 mL/min/1.73 sq m ESTIMATED GFR IS NOT ACCURATE CREATININE CLEARANCE IN PREDICTING GLOMERULAR FILTRATION RATE. ESTIMATED GFR IS NOT APPLICABLE FOR DIALYSIS PATIENTS. CBC W/PLT COUNT & AUTO [id number] 02:37:00* Test Item Value Reference Range Interpretation Comments WHITE BLOOD CELL COUNT (BEAKER) (test code = 775) 8.5 K/ L 3.5- 10.5 RED BLOOD CELL COUNT (BEAKER) (test code = 761) 3.56 M/ L 3.93-5 .22 L HEMOGLOBIN (BEAKER) (test code = 410) 8.8 GM/DL 11.2-15.7 L HEMATOCRIT (BEAKER) (test code = 411) 28.5 % 34.1-44.9 L MEAN CORPUSCULAR VOLUME (BEAKER) (test code = 753) 80.1 fL 79. 4-94.8 MEAN CORPUSCULAR HEMOGLOBIN (BEAKER) (test code = 751) 24.7 pg 25.6-32.2 L MEAN CORPUSCULAR HEMOGLOBIN CONC (BEAKER) (test code = 752) 30.9 GM/DL 32.2-35.5 L RED CELL DISTRIBUTION WIDTH (BEAKER) (test code = 412) 16.5 % 11.7-14.4 H PLATELET COUNT (BEAKER) (test code = 756) 319 K/CU MM 150-450 MEAN PLATELET VOLUME (BEAKER) (test code = 754) 9.4 fL 9.4-12 .3 NUCLEATED RED BLOOD CELLS (BEAKER) (test code = 413) 0 /100 WBC 0 -0 NEUTROPHILS RELATIVE PERCENT (BEAKER) (test code = 429) 63 % LYMPHOCYTES RELATIVE PERCENT (BEAKER) (test code = 430) 23 % MONOCYTES RELATIVE PERCENT (BEAKER) (test code = 431) 8 % EOSINOPHILS RELATIVE PERCENT (BEAKER) (test code = 432) 5 % BASOPHILS RELATIVE PERCENT (BEAKER) (test code = 437) 0 % NEUTROPHILS ABSOLUTE COUNT (BEAKER) (test code = 670) 5.36 K/ L 1.56-6.13 LYMPHOCYTES ABSOLUTE COUNT (BEAKER) (test code = 414) 1.96 K/ L 1.18-3.74 MONOCYTES ABSOLUTE COUNT (BEAKER) (test code = 415) 0.65 K/ L 0. 24-0.36 H EOSINOPHILS ABSOLUTE COUNT (BEAKER) (test code = 416) 0.46 K/ L 0.04-0.36 H BASOPHILS ABSOLUTE COUNT (BEAKER) (test code = 417) 0.02 K/ L 0. 01-0.08 IMMATURE GRANULOCYTES-RELATIVE PERCENT (BEAKER) (test code = 2801) 0 % 0-1 [id number] 04:43:00* Test Item Value Reference Range Interpretation Comments PHOSPHORUS (BEAKER) (test code = 604) 3.7 mg/dL 2.3-4.7 [id number] 04:43:00* Test Item Value Reference Range Interpretation Comments MAGNESIUM (BEAKER) (test code = 627) 1.8 mg/dL 1.6-2.6 BASIC METABOLIC [id number] 04:43:00* Test Item Value Reference Range Interpretation Comments SODIUM (BEAKER) (test code = 381) 140 meq/L 136-145 POTASSIUM (BEAKER) (test code = 379) 4.0 meq/L 3.5-5.1 CHLORIDE (BEAKER) (test code = 382) 109 meq/L 98-107 H CO2 (BEAKER) (test code = 355) 22 meq/L 22-29 BLOOD UREA NITROGEN (BEAKER) (test code = 354) 9 mg/dL 7-21 CREATININE (BEAKER) (test code = 358) 0.75 mg/dL 0.57-1.25 GLUCOSE RANDOM (BEAKER) (test code = 652) 127 mg/dL 70-105 H CALCIUM (BEAKER) (test code = 697) 9.0 mg/dL 8.4-10.2 EGFR (BEAKER) (test code = 1092) 87 mL/min/1.73 sq m ESTIMATED GFR IS NOT ACCURATE CREATININE CLEARANCE IN PREDICTING GLOMERULAR FILTRATION RATE. ESTIMATED GFR IS NOT APPLICABLE FOR DIALYSIS PATIENTS. CBC W/PLT COUNT & AUTO [id number] 04:14:00* Test Item Value Reference Range Interpretation Comments WHITE BLOOD CELL COUNT (BEAKER) (test code = 775) 4.8 K/ L 3.5- 10.5 RED BLOOD CELL COUNT (BEAKER) (test code = 761) 3.41 M/ L 3.93-5 .22 L HEMOGLOBIN (BEAKER) (test code = 410) 8.5 GM/DL 11.2-15.7 L HEMATOCRIT (BEAKER) (test code = 411) 28.1 % 34.1-44.9 L MEAN CORPUSCULAR VOLUME (BEAKER) (test code = 753) 82.4 fL 79. 4-94.8 MEAN CORPUSCULAR HEMOGLOBIN (BEAKER) (test code = 751) 24.9 pg 25.6-32.2 L MEAN CORPUSCULAR HEMOGLOBIN CONC (BEAKER) (test code = 752) 30.2 GM/DL 32.2-35.5 L RED CELL DISTRIBUTION WIDTH (BEAKER) (test code = 412) 16.3 % 11.7-14.4 H PLATELET COUNT (BEAKER) (test code = 756) 285 K/CU MM 150-450 MEAN PLATELET VOLUME (BEAKER) (test code = 754) 9.0 fL 9.4-12 .3 L NUCLEATED RED BLOOD CELLS (BEAKER) (test code = 413) 0 /100 WBC 0 -0 NEUTROPHILS RELATIVE PERCENT (BEAKER) (test code = 429) 48 % LYMPHOCYTES RELATIVE PERCENT (BEAKER) (test code = 430) 36 % MONOCYTES RELATIVE PERCENT (BEAKER) (test code = 431) 8 % EOSINOPHILS RELATIVE PERCENT (BEAKER) (test code = 432) 7 % BASOPHILS RELATIVE PERCENT (BEAKER) (test code = 437) 0 % NEUTROPHILS ABSOLUTE COUNT (BEAKER) (test code = 670) 2.30 K/ L 1.56-6.13 LYMPHOCYTES ABSOLUTE COUNT (BEAKER) (test code = 414) 1.74 K/ L 1.18-3.74 MONOCYTES ABSOLUTE COUNT (BEAKER) (test code = 415) 0.38 K/ L 0. 24-0.36 H EOSINOPHILS ABSOLUTE COUNT (BEAKER) (test code = 416) 0.35 K/ L 0.04-0.36 BASOPHILS ABSOLUTE COUNT (BEAKER) (test code = 417) 0.01 K/ L 0. 01-0.08 IMMATURE GRANULOCYTES-RELATIVE PERCENT (BEAKER) (test code = 2801) 0 % 0-1 CARCINOEMBRYONIC ANTIGEN (CEA)2017-11-06 13:38:00* Test Item Value Reference Range Interpretation Comments CARCINOEMBRYONIC ANTIGEN (BEAKER) (test code = 685) 1.3 ng/mL 0. 0-5.0 [id number] 05:54:00* Test Item Value Reference Range Interpretation Comments PHOSPHORUS (BEAKER) (test code = 604) 3.9 mg/dL 2.3-4.7 [id number] 05:54:00* Test Item Value Reference Range Interpretation Comments MAGNESIUM (BEAKER) (test code = 627) 1.8 mg/dL 1.6-2.6 BASIC METABOLIC [id number] 05:54:00* Test Item Value Reference Range Interpretation Comments SODIUM (BEAKER) (test code = 381) 139 meq/L 136-145 POTASSIUM (BEAKER) (test code = 379) 4.2 meq/L 3.5-5.1 CHLORIDE (BEAKER) (test code = 382) 109 meq/L 98-107 H CO2 (BEAKER) (test code = 355) 22 meq/L 22-29 BLOOD UREA NITROGEN (BEAKER) (test code = 354) 10 mg/dL 7-21 CREATININE (BEAKER) (test code = 358) 0.72 mg/dL 0.57-1.25 GLUCOSE RANDOM (BEAKER) (test code = 652) 96 mg/dL 70-105 CALCIUM (BEAKER) (test code = 697) 9.1 mg/dL 8.4-10.2 EGFR (BEAKER) (test code = 1092) 91 mL/min/1.73 sq m ESTIMATED GFR IS NOT ACCURATE CREATININE CLEARANCE IN PREDICTING GLOMERULAR FILTRATION RATE. ESTIMATED GFR IS NOT APPLICABLE FOR DIALYSIS PATIENTS. CBC W/PLT COUNT & AUTO [id number] 05:35:00* Test Item Value Reference Range Interpretation Comments WHITE BLOOD CELL COUNT (BEAKER) (test code = 775) 5.7 K/ L 3.5- 10.5 RED BLOOD CELL COUNT (BEAKER) (test code = 761) 3.30 M/ L 3.93-5 .22 L HEMOGLOBIN (BEAKER) (test code = 410) 8.3 GM/DL 11.2-15.7 L HEMATOCRIT (BEAKER) (test code = 411) 27.0 % 34.1-44.9 L MEAN CORPUSCULAR VOLUME (BEAKER) (test code = 753) 81.8 fL 79. 4-94.8 MEAN CORPUSCULAR HEMOGLOBIN (BEAKER) (test code = 751) 25.2 pg 25.6-32.2 L MEAN CORPUSCULAR HEMOGLOBIN CONC (BEAKER) (test code = 752) 30.7 GM/DL 32.2-35.5 L RED CELL DISTRIBUTION WIDTH (BEAKER) (test code = 412) 16.3 % 11.7-14.4 H PLATELET COUNT (BEAKER) (test code = 756) 289 K/CU MM 150-450 MEAN PLATELET VOLUME (BEAKER) (test code = 754) 8.9 fL 9.4-12 .3 L NUCLEATED RED BLOOD CELLS (BEAKER) (test code = 413) 0 /100 WBC 0 -0 NEUTROPHILS RELATIVE PERCENT (BEAKER) (test code = 429) 43 % LYMPHOCYTES RELATIVE PERCENT (BEAKER) (test code = 430) 39 % MONOCYTES RELATIVE PERCENT (BEAKER) (test code = 431) 10 % EOSINOPHILS RELATIVE PERCENT (BEAKER) (test code = 432) 8 % BASOPHILS RELATIVE PERCENT (BEAKER) (test code = 437) 0 % NEUTROPHILS ABSOLUTE COUNT (BEAKER) (test code = 670) 2.43 K/ L 1.56-6.13 LYMPHOCYTES ABSOLUTE COUNT (BEAKER) (test code = 414) 2.23 K/ L 1.18-3.74 MONOCYTES ABSOLUTE COUNT (BEAKER) (test code = 415) 0.55 K/ L 0. 24-0.36 H EOSINOPHILS ABSOLUTE COUNT (BEAKER) (test code = 416) 0.43 K/ L 0.04-0.36 H BASOPHILS ABSOLUTE COUNT (BEAKER) (test code = 417) 0.02 K/ L 0. 01-0.08 IMMATURE GRANULOCYTES-RELATIVE PERCENT (BEAKER) (test code = 2801) 0 % 0-1 [id number] 06:35:00* Test Item Value Reference Range Interpretation Comments PHOSPHORUS (BEAKER) (test code = 604) 3.0 mg/dL 2.3-4.7 [id number] 06:35:00* Test Item Value Reference Range Interpretation Comments MAGNESIUM (BEAKER) (test code = 627) 1.9 mg/dL 1.6-2.6 BASIC METABOLIC [id number] 06:35:00* Test Item Value Reference Range Interpretation Comments SODIUM (BEAKER) (test code = 381) 140 meq/L 136-145 POTASSIUM (BEAKER) (test code = 379) 4.1 meq/L 3.5-5.1 CHLORIDE (BEAKER) (test code = 382) 109 meq/L 98-107 H CO2 (BEAKER) (test code = 355) 20 meq/L 22-29 L BLOOD UREA NITROGEN (BEAKER) (test code = 354) 11 mg/dL 7-21 CREATININE (BEAKER) (test code = 358) 0.78 mg/dL 0.57-1.25 GLUCOSE RANDOM (BEAKER) (test code = 652) 110 mg/dL 70-105 H CALCIUM (BEAKER) (test code = 697) 9.0 mg/dL 8.4-10.2 EGFR (BEAKER) (test code = 1092) 83 mL/min/1.73 sq m ESTIMATED GFR IS NOT ACCURATE CREATININE CLEARANCE IN PREDICTING GLOMERULAR FILTRATION RATE. ESTIMATED GFR IS NOT APPLICABLE FOR DIALYSIS PATIENTS. CBC W/PLT COUNT & AUTO [id number] 06:13:00* Test Item Value Reference Range Interpretation Comments WHITE BLOOD CELL COUNT (BEAKER) (test code = 775) 5.5 K/ L 3.5- 10.5 RED BLOOD CELL COUNT (BEAKER) (test code = 761) 3.32 M/ L 3.93-5 .22 L HEMOGLOBIN (BEAKER) (test code = 410) 8.2 GM/DL 11.2-15.7 L HEMATOCRIT (BEAKER) (test code = 411) 26.8 % 34.1-44.9 L MEAN CORPUSCULAR VOLUME (BEAKER) (test code = 753) 80.7 fL 79. 4-94.8 MEAN CORPUSCULAR HEMOGLOBIN (BEAKER) (test code = 751) 24.7 pg 25.6-32.2 L MEAN CORPUSCULAR HEMOGLOBIN CONC (BEAKER) (test code = 752) 30.6 GM/DL 32.2-35.5 L RED CELL DISTRIBUTION WIDTH (BEAKER) (test code = 412) 16.1 % 11.7-14.4 H PLATELET COUNT (BEAKER) (test code = 756) 337 K/CU MM 150-450 MEAN PLATELET VOLUME (BEAKER) (test code = 754) 9.6 fL 9.4-12 .3 NUCLEATED RED BLOOD CELLS (BEAKER) (test code = 413) 0 /100 WBC 0 -0 NEUTROPHILS RELATIVE PERCENT (BEAKER) (test code = 429) 48 % LYMPHOCYTES RELATIVE PERCENT (BEAKER) (test code = 430) 37 % MONOCYTES RELATIVE PERCENT (BEAKER) (test code = 431) 7 % EOSINOPHILS RELATIVE PERCENT (BEAKER) (test code = 432) 8 % BASOPHILS RELATIVE PERCENT (BEAKER) (test code = 437) 0 % NEUTROPHILS ABSOLUTE COUNT (BEAKER) (test code = 670) 2.64 K/ L 1.56-6.13 LYMPHOCYTES ABSOLUTE COUNT (BEAKER) (test code = 414) 2.05 K/ L 1.18-3.74 MONOCYTES ABSOLUTE COUNT (BEAKER) (test code = 415) 0.36 K/ L 0. 24-0.36 EOSINOPHILS ABSOLUTE COUNT (BEAKER) (test code = 416) 0.43 K/ L 0.04-0.36 H BASOPHILS ABSOLUTE COUNT (BEAKER) (test code = 417) 0.02 K/ L 0. 01-0.08 IMMATURE GRANULOCYTES-RELATIVE PERCENT (BEAKER) (test code = 2801) 0 % 0-1 URINE [id number] 10:28:00* Test Item Value Reference Range Interpretation Comments CULTURE (BEAKER) (test code = 1095) No growth URINE [id number] 09:26:00* Test Item Value Reference Range Interpretation Comments CULTURE (BEAKER) (test code = 1095) No growth [id number] 07:30:00* Test Item Value Reference Range Interpretation Comments PHOSPHORUS (BEAKER) (test code = 604) 3.6 mg/dL 2.3-4.7 [id number] 07:30:00* Test Item Value Reference Range Interpretation Comments MAGNESIUM (BEAKER) (test code = 627) 2.2 mg/dL 1.6-2.6 BASIC METABOLIC [id number] 07:30:00* Test Item Value Reference Range Interpretation Comments SODIUM (BEAKER) (test code = 381) 143 meq/L 136-145 POTASSIUM (BEAKER) (test code = 379) 4.3 meq/L 3.5-5.1 CHLORIDE (BEAKER) (test code = 382) 113 meq/L 98-107 H CO2 (BEAKER) (test code = 355) 23 meq/L 22-29 BLOOD UREA NITROGEN (BEAKER) (test code = 354) 13 mg/dL 7-21 CREATININE (BEAKER) (test code = 358) 0.75 mg/dL 0.57-1.25 GLUCOSE RANDOM (BEAKER) (test code = 652) 113 mg/dL 70-105 H CALCIUM (BEAKER) (test code = 697) 8.6 mg/dL 8.4-10.2 EGFR (BEAKER) (test code = 1092) 87 mL/min/1.73 sq m ESTIMATED GFR IS NOT ACCURATE CREATININE CLEARANCE IN PREDICTING GLOMERULAR FILTRATION RATE. ESTIMATED GFR IS NOT APPLICABLE FOR DIALYSIS PATIENTS. CBC W/PLT COUNT & AUTO [id number] 07:06:00* Test Item Value Reference Range Interpretation Comments WHITE BLOOD CELL COUNT (BEAKER) (test code = 775) 5.1 K/ L 3.5- 10.5 RED BLOOD CELL COUNT (BEAKER) (test code = 761) 3.33 M/ L 3.93-5 .22 L HEMOGLOBIN (BEAKER) (test code = 410) 8.3 GM/DL 11.2-15.7 L HEMATOCRIT (BEAKER) (test code = 411) 27.2 % 34.1-44.9 L MEAN CORPUSCULAR VOLUME (BEAKER) (test code = 753) 81.7 fL 79. 4-94.8 MEAN CORPUSCULAR HEMOGLOBIN (BEAKER) (test code = 751) 24.9 pg 25.6-32.2 L MEAN CORPUSCULAR HEMOGLOBIN CONC (BEAKER) (test code = 752) 30.5 GM/DL 32.2-35.5 L RED CELL DISTRIBUTION WIDTH (BEAKER) (test code = 412) 16.2 % 11.7-14.4 H PLATELET COUNT (BEAKER) (test code = 756) 318 K/CU MM 150-450 MEAN PLATELET VOLUME (BEAKER) (test code = 754) 9.4 fL 9.4-12 .3 NUCLEATED RED BLOOD CELLS (BEAKER) (test code = 413) 0 /100 WBC 0 -0 NEUTROPHILS RELATIVE PERCENT (BEAKER) (test code = 429) 37 % LYMPHOCYTES RELATIVE PERCENT (BEAKER) (test code = 430) 46 % MONOCYTES RELATIVE PERCENT (BEAKER) (test code = 431) 10 % EOSINOPHILS RELATIVE PERCENT (BEAKER) (test code = 432) 7 % BASOPHILS RELATIVE PERCENT (BEAKER) (test code = 437) 0 % NEUTROPHILS ABSOLUTE COUNT (BEAKER) (test code = 670) 1.89 K/ L 1.56-6.13 LYMPHOCYTES ABSOLUTE COUNT (BEAKER) (test code = 414) 2.35 K/ L 1.18-3.74 MONOCYTES ABSOLUTE COUNT (BEAKER) (test code = 415) 0.49 K/ L 0. 24-0.36 H EOSINOPHILS ABSOLUTE COUNT (BEAKER) (test code = 416) 0.37 K/ L 0.04-0.36 H BASOPHILS ABSOLUTE COUNT (BEAKER) (test code = 417) 0.01 K/ L 0. 01-0.08 IMMATURE GRANULOCYTES-RELATIVE PERCENT (BEAKER) (test code = 2801) 0 % 0-1 ANG, NON-TUNNELED CATH/PICC >5 Y.O.2017-11-03 17:34:00Place port if PICC line not possibleReason for exam:->for chemotherapyFINAL REPORT Right upper extremity PICC insertion, 11/03/2017. History: Pancreatic cancer, chemotherapy access. Product Support Technician: Lowell Louis MD. Cleaning Laborer: Francisco Javier. Modality: Sonography and fluoroscopy. Sedation: [...] needle into the right atrium. A 5 Libyan peel-away sheath was placed. The 5 Libyan double-lumen PICC line was measured and cut [...] catheter is ready for immediate use. Signed: Darrick Louis MDReport Verified Date/Time: 11/03/2017 17:34:59 Reading Location: [facility] P048 Angio Body Reading Room U/S, RENAL, [id number] 04:02:00Reason for exam:- >Kidney stonesShould this be [...] the right kidney.No hydronephros is. Signed: Vikash Bravo MDReport Verified Date/Time: 11/03/2017 04:02:42 Re ading Location: [facility] B1 C013X Ortho Consult Reading Room Electronically sign ed by: VIKASH BRAVO MD on 11/03/2017 04:02 AM ANG, NON-TUNNELED CATH >5 Y.O. [id number] 15:38:00Reason for exam:->venous accessPICC line Versus Central [...] guide wire was advanced centrally. A 7 Libyan 20 cm triple lumen catheter was advanced [...] catheter terminating in the right atrium. Signed: Dinora Edward MDReport Verified Date/Time: 15:38:02 Reading Location: [facility] Radiology Reading Room [facility] signed by: DINORA EDWARD M.D. on 11/02/2017 03:[address], [id number] 05:35:00Reason for exam:->ABDOMINAL PAINIs the patient ?->NoWhat [...] this n oncontrast exam.Medullary nephrocalcinosis. Signed: Vikash Bravo MDReport Shae ified Date/Time: 11/02/2017 05:35:00 Reading Location: [facility] C013X Ortho Consu Reading Room D DRUG SCREEN, [id number] 04:23:00* Test Item Value Reference Range Interpretation Comments BARBITURATE URINE (BEAKER) (test code = 725) Negative Negative BENZODIAZEPINE SCREEN URINE (BEAKER) (test code = 726) Positive Negative A COCAINE (METAB.) SCREEN (BEAKER) (test code = 1164) Negative Ne gative METHADONE SCREEN (BEAKER) (test code = 1436) Negative Negative OPIATE SCREEN URINE (BEAKER) (test code = 734) Positive Negativ e A CANNABINOID SCREEN URINE (BEAKER) (test code = 727) Negative Ne gative AMPH/METHAMPH SCREEN (BEAKER) (test code = 1438) Negative Negat ivonne PHENCYCLIDINE SCREEN URINE (BEAKER) (test code = 608) Negative Negative OXYCODONE SCREEN URINE (BEAKER) (test code = 2761) Negative Neg ative DRUG CUTOFF CONC.Cocaine 300 ng/mL Cannabinoid 50 ng/mL Benzodiazepine 200 ng/mLBarbiturate 200 ng/mLPh encyclidine 25 ng/mLOpiate 300 ng/mLMethadone 300 ng/mLAmphetamine/ 1000 ng/mL MethamphetamineOxycodone 300 ng/mLThis assay provides an unconfirmed qualitative test result for the cli nical management of patients in emergency situations. Chain of custody not maint ained. Some brlw-alj-aninigh medications, as well as adulterants, may cause inac curate results. Clinical correlation should be applied. A more comprehensive selene g screen or confirmation of a detected drug may be performed upon request.LIPASE 2017-11-02 03:59:00* Test Item Value Reference Range Interpretation Comments LIPASE (BEAKER) (test code = 749) 10 U/L 8-78 [id number] 03:59:00* Test Item Value Reference Range Interpretation Comments AMYLASE (BEAKER) (test code = 349) 49 U/L 25-125 BASIC METABOLIC [id number] 03:59:00* Test Item Value Reference Range Interpretation Comments SODIUM (BEAKER) (test code = 381) 140 meq/L 136-145 POTASSIUM (BEAKER) (test code = 379) 4.1 meq/L 3.5-5.1 CHLORIDE (BEAKER) (test code = 382) 111 meq/L 98-107 H CO2 (BEAKER) (test code = 355) 18 meq/L 22-29 L BLOOD UREA NITROGEN (BEAKER) (test code = 354) 14 mg/dL 7-21 CREATININE (BEAKER) (test code = 358) 0.99 mg/dL 0.57-1.25 GLUCOSE RANDOM (BEAKER) (test code = 652) 91 mg/dL 70-105 CALCIUM (BEAKER) (test code = 697) 10.0 mg/dL 8.4-10.2 EGFR (BEAKER) (test code = 1092) 63 mL/min/1.73 sq m ESTIMATED GFR IS NOT ACCURATE CREATININE CLEARANCE IN PREDICTING GLOMERULAR FILTRATION RATE. ESTIMATED GFR IS NOT APPLICABLE FOR DIALYSIS PATIENTS. HEPATIC FUNCTION [id number] 03:59:00* Test Item Value Reference Range Interpretation Comments TOTAL PROTEIN (BEAKER) (test code = 770) 7.8 gm/dL 6.0-8.3 ALBUMIN (BEAKER) (test code = 1145) 4.1 g/dL 3.5-5.0 BILIRUBIN TOTAL (BEAKER) (test code = 377) 0.1 mg/dL 0.2-1.2 L BILIRUBIN DIRECT (BEAKER) (test code = 706) 0.1 mg/dL 0.1-0.5 ALKALINE PHOSPHATASE (BEAKER) (test code = 346) 101 U/L 40-150 AST (SGOT) (BEAKER) (test code = 353) 21 U/L 5-34 ALT (SGPT) (BEAKER) (test code = 347) 22 U/L 6-55 URINALYSIS W/ [id number] 03:51:00* Test Item Value Reference Range Interpretation Comments COLOR (BEAKER) (test code = 470) Light Yellow CLARITY (BEAKER) (test code = 469) Clear SPECIFIC GRAVITY UA (BEAKER) (test code = 468) 1.008 1.001-1 .035 PH UA (BEAKER) (test code = 467) 5.5 5.0-8.0 PROTEIN UA (BEAKER) (test code = 464) Negative Negative GLUCOSE UA (BEAKER) (test code = 365) Negative Negative KETONES UA (BEAKER) (test code = 371) Negative Negative BILIRUBIN UA (BEAKER) (test code = 462) Negative Negative BLOOD UA (BEAKER) (test code = 461) Negative Negative NITRITE UA (BEAKER) (test code = 465) Negative Negative LEUKOCYTE ESTERASE UA (BEAKER) (test code = 466) Negative Negat ivonne UROBILINOGEN UA (BEAKER) (test code = 463) 0.2 mg/dL 0.2-1.0 RBC UA (BEAKER) (test code = 519) < /HPF WBC UA (BEAKER) (test code = 520) 5 /HPF BACTERIA (BEAKER) (test code = 517) Moderate MUCUS (BEAKER) (test code = 1574) Rare SQUAMOUS EPITHELIAL (BEAKER) (test code = 516) 1 /HPF SOURCE(BEAKER) (test code = 2795) CBC W/PLT COUNT & AUTO [id number] 03:45:00* Test Item Value Reference Range Interpretation Comments WHITE BLOOD CELL COUNT (BEAKER) (test code = 775) 6.5 K/ L 3.5- 10.5 RED BLOOD CELL COUNT (BEAKER) (test code = 761) 3.71 M/ L 3.93-5 .22 L HEMOGLOBIN (BEAKER) (test code = 410) 9.3 GM/DL 11.2-15.7 L HEMATOCRIT (BEAKER) (test code = 411) 29.6 % 34.1-44.9 L MEAN CORPUSCULAR VOLUME (BEAKER) (test code = 753) 79.8 fL 79. 4-94.8 MEAN CORPUSCULAR HEMOGLOBIN (BEAKER) (test code = 751) 25.1 pg 25.6-32.2 L MEAN CORPUSCULAR HEMOGLOBIN CONC (BEAKER) (test code = 752) 31.4 GM/DL 32.2-35.5 L RED CELL DISTRIBUTION WIDTH (BEAKER) (test code = 412) 16.6 % 11.7-14.4 H PLATELET COUNT (BEAKER) (test code = 756) 451 K/CU MM 150-450 H MEAN PLATELET VOLUME (BEAKER) (test code = 754) 9.6 fL 9.4-12 .3 NUCLEATED RED BLOOD CELLS (BEAKER) (test code = 413) 0 /100 WBC 0 -0 NEUTROPHILS RELATIVE PERCENT (BEAKER) (test code = 429) 48 % LYMPHOCYTES RELATIVE PERCENT (BEAKER) (test code = 430) 37 % MONOCYTES RELATIVE PERCENT (BEAKER) (test code = 431) 8 % EOSINOPHILS RELATIVE PERCENT (BEAKER) (test code = 432) 6 % BASOPHILS RELATIVE PERCENT (BEAKER) (test code = 437) 1 % NEUTROPHILS ABSOLUTE COUNT (BEAKER) (test code = 670) 3.10 K/ L 1.56-6.13 LYMPHOCYTES ABSOLUTE COUNT (BEAKER) (test code = 414) 2.40 K/ L 1.18-3.74 MONOCYTES ABSOLUTE COUNT (BEAKER) (test code = 415) 0.54 K/ L 0. 24-0.36 H EOSINOPHILS ABSOLUTE COUNT (BEAKER) (test code = 416) 0.40 K/ L 0.04-0.36 H BASOPHILS ABSOLUTE COUNT (BEAKER) (test code = 417) 0.03 K/ L 0. 01-0.08 IMMATURE GRANULOCYTES-RELATIVE PERCENT (BEAKER) (test code = 2801) 1 % 0-1 AFB Culture and [id number] 16:41:00Specimen/Source: Tissue/RIGHT FOREARMCollected: 09/06/2017 16:09 Status: Final Last Updated: 10/26/2017 16:41 QWM-Svxld-Dvafvoapqvhg (Final) (Final) 09/07/17 Pending 09/08/17 No acid [...] after 6 weeks incubation Perform ed at [facility] [address] [address] Supervisor Process Testing: Alfreda Willis M.D. CLIA:[id number] FINE NEEDLE ASPIRATION BY [id number] 14:30:00Medical Cytology Report Case: [id number] Authorizing Provider: Moreno Menjivar Collected: 10/24/2017 1841 Ordering Location: [address] Received: 10/25/2017 0915 Service Pathologist: Camden Obrien MD Specimen: Pancreas, pancreatic cyst PANCREAS CYST FNA BY CLINICIAN (CYTOSPINS AND CELL BLOCK OF ASPIRATE): - NO MALIGNANT CELLS IDENTIFIED - The mucin stain is negative Signing Pathologist Direct Phone Line: [phone] signed by Camden Obrien MD on 10/26/2017 at 2:30 PMThe smears and cell block show degenerated cellular material with acute inflammation.Please see cases [id number] and [id number], 55884, 119960.6 cm cystic lesion in the pancreatic bodyPANCREAS CYST FNA15 mls in cytorich red; 4 cytospins, 1 mucin stain, cell blockCollected: [id number]: [id number] following special studies were performed on this case and the interpretation is incorporated in the d iagnostic report above:[facility], Department of Path ology, [address] [place] [address], [facility], [facility], [address] [place] [address] , BHZO NEEDLE ASPIRATION BY [id number] 14:28:00Medical Cytology Report Case: [id number] Authorizing Provider: Moreno Menjivar Collected: 10/24/2017 1741 Ordering Location: [address] Received: 10/25/2017 0915 Service Pathologist: Camden Obrien MD Specimen: Pancreas, pancreatic mass PANCREAS BODY MASS FNA BY CLINICIAN (CYTOSPINS AND CELL BLOCK OF ASPIRATE): - NEGATIVE FOR MALIGNANCY Signing Pathologist Direct Phone Line: [phone] signed by Camden Obrien MD on 10/26/2017 at 2:28 PMPredominantly degenerated cellular ma terial and some acute inflammation.Please see cases [id number] and [id number], 47[address](2.2 x 2.5 cm) oval mass in the pancreatic bodyPANCREAS BODY MASS FNA40 mls in cytorich red; 4 cytospins, cell blockCollected: [id number]: [id number] [facility], Department of Pathology, [address] [place] [address], [facility], Department of Pat hology, [address] [place] [address], XQFFP METABOLIC [id number] 12:22:00* Test Item Value Reference Range Interpretation Comments SODIUM (BEAKER) (test code = 381) 136 meq/L 136-145 POTASSIUM (BEAKER) (test code = 379) 3.8 meq/L 3.5-5.1 CHLORIDE (BEAKER) (test code = 382) 107 meq/L 98-107 CO2 (BEAKER) (test code = 355) 22 meq/L 22-29 BLOOD UREA NITROGEN (BEAKER) (test code = 354) 7 mg/dL 7-21 CREATININE (BEAKER) (test code = 358) 0.70 mg/dL 0.57-1.25 GLUCOSE RANDOM (BEAKER) (test code = 652) 125 mg/dL 70-105 H CALCIUM (BEAKER) (test code = 697) 8.6 mg/dL 8.4-10.2 EGFR (BEAKER) (test code = 1092) 94 mL/min/1.73 sq m ESTIMATED GFR IS NOT ACCURATE CREATININE CLEARANCE IN PREDICTING GLOMERULAR FILTRATION RATE. ESTIMATED GFR IS NOT APPLICABLE FOR DIALYSIS PATIENTS. FINE NEEDLE ASPIRATE (FNA) [id number] 11:00:00* Test Item Value Reference Range Interpretation Comments CYTOLOGY RESULT POINTER (BEAKER) (test code = 2629) See Separate Re port FINE NEEDLE ASPIRATE (FNA) [id number] 11:00:00* Test Item Value Reference Range Interpretation Comments CYTOLOGY RESULT POINTER (BEAKER) (test code = 2629) See Separate Re port BLOOD [id number] 11:00:00* Test Item Value Reference Range Interpretation Comments CULTURE (BEAKER) (test code = 1095) No growth in [address], ABDOMEN - PELVIS, PANCREAS [id number] 09:50:00Reason for exam:-> Evaluate pancreatic tail massFINAL [...] Verified Bonifacio e/Time: 10/24/2017 09:50:24 Reading Location: [facility] Diagnostic Imaging Reading R o - SLSWV F1 1120 Electronically signed by: WILFRID MARTINEZ MD on 09:50 AM BASIC METABOLIC [id number] 06:27:00* Test Item Value Reference Range Interpretation Comments SODIUM (BEAKER) (test code = 381) 139 meq/L 136-145 POTASSIUM (BEAKER) (test code = 379) 3.8 meq/L 3.5-5.1 CHLORIDE (BEAKER) (test code = 382) 106 meq/L 98-107 CO2 (BEAKER) (test code = 355) 24 meq/L 22-29 BLOOD UREA NITROGEN (BEAKER) (test code = 354) 8 mg/dL 7-21 CREATININE (BEAKER) (test code = 358) 0.72 mg/dL 0.57-1.25 GLUCOSE RANDOM (BEAKER) (test code = 652) 116 mg/dL 70-105 H CALCIUM (BEAKER) (test code = 697) 8.9 mg/dL 8.4-10.2 EGFR (BEAKER) (test code = 1092) 91 mL/min/1.73 sq m ESTIMATED GFR IS NOT ACCURATE CREATININE CLEARANCE IN PREDICTING GLOMERULAR FILTRATION RATE. ESTIMATED GFR IS NOT APPLICABLE FOR DIALYSIS PATIENTS. CBC W/PLT COUNT & AUTO [id number] 06:18:00* Test Item Value Reference Range Interpretation Comments WHITE BLOOD CELL COUNT (BEAKER) (test code = 775) 4.1 K/ L 3.5- 10.5 RED BLOOD CELL COUNT (BEAKER) (test code = 761) 3.47 M/ L 3.93-5 .22 L HEMOGLOBIN (BEAKER) (test code = 410) 8.7 GM/DL 11.2-15.7 L HEMATOCRIT (BEAKER) (test code = 411) 28.1 % 34.1-44.9 L MEAN CORPUSCULAR VOLUME (BEAKER) (test code = 753) 81.0 fL 79. 4-94.8 MEAN CORPUSCULAR HEMOGLOBIN (BEAKER) (test code = 751) 25.1 pg 25.6-32.2 L MEAN CORPUSCULAR HEMOGLOBIN CONC (BEAKER) (test code = 752) 31.0 GM/DL 32.2-35.5 L RED CELL DISTRIBUTION WIDTH (BEAKER) (test code = 412) 16.0 % 11.7-14.4 H PLATELET COUNT (BEAKER) (test code = 756) 190 K/CU MM 150-450 MEAN PLATELET VOLUME (BEAKER) (test code = 754) 10.8 fL 9.4-12 .3 NUCLEATED RED BLOOD CELLS (BEAKER) (test code = 413) 0 /100 WBC 0 -0 NEUTROPHILS RELATIVE PERCENT (BEAKER) (test code = 429) 36 % LYMPHOCYTES RELATIVE PERCENT (BEAKER) (test code = 430) 41 % MONOCYTES RELATIVE PERCENT (BEAKER) (test code = 431) 12 % EOSINOPHILS RELATIVE PERCENT (BEAKER) (test code = 432) 11 % BASOPHILS RELATIVE PERCENT (BEAKER) (test code = 437) 0 % NEUTROPHILS ABSOLUTE COUNT (BEAKER) (test code = 670) 1.47 K/ L 1.56-6.13 L LYMPHOCYTES ABSOLUTE COUNT (BEAKER) (test code = 414) 1.64 K/ L 1.18-3.74 MONOCYTES ABSOLUTE COUNT (BEAKER) (test code = 415) 0.48 K/ L 0. 24-0.36 H EOSINOPHILS ABSOLUTE COUNT (BEAKER) (test code = 416) 0.44 K/ L 0.04-0.36 H BASOPHILS ABSOLUTE COUNT (BEAKER) (test code = 417) 0.01 K/ L 0. 01-0.08 IMMATURE GRANULOCYTES-RELATIVE PERCENT (BEAKER) (test code = 2801) 0 % 0-1 URINE [id number] 10:45:00* Test Item Value Reference Range Interpretation Comments CULTURE (BEAKER) (test code = 1095) ESCHERICHIA COLI A >100,000 col/mL Escherichia coli Amikacin (test code = 1) S Ampicillin + Sulbactam (test code = 6) R Aztreonam (test code = 32) S Cefepime (test code = 51) S Cefoxitin (test code = 68) S Ceftazidime (test code = 27) S Ceftriaxone (test code = 52) S Ertapenem (test code = 38) S Gentamicin (test code = 18) S Levofloxacin (test code = 22) R Meropenem (test code = 34) S Nitrofurantoin (test code = 23) S Piperacillin + Tazobactam (test code = 29) S Tetracycline (test code = 2) R Tobramycin (test code = 25) S Trimethoprim + Sulfamethoxazole (test code = 47) R U/S, RENAL, [id number] 09:34:00Reason for exam:->nephrolithiasisFINAL REPORT Ultrasound of the [...] MDReport Verified Date/Time: 10/21/2017 09:34:29 Reading Location: [facility] C013Y VA Body Reading Room W/PLT COUNT & AUTO [id number] 04:15:00* Test Item Value Reference Range Interpretation Comments WHITE BLOOD CELL COUNT (BEAKER) (test code = 775) 6.0 K/ L 3.5- 10.5 RED BLOOD CELL COUNT (BEAKER) (test code = 761) 3.59 M/ L 3.93-5 .22 L HEMOGLOBIN (BEAKER) (test code = 410) 9.0 GM/DL 11.2-15.7 L HEMATOCRIT (BEAKER) (test code = 411) 28.9 % 34.1-44.9 L MEAN CORPUSCULAR VOLUME (BEAKER) (test code = 753) 80.5 fL 79. 4-94.8 MEAN CORPUSCULAR HEMOGLOBIN (BEAKER) (test code = 751) 25.1 pg 25.6-32.2 L MEAN CORPUSCULAR HEMOGLOBIN CONC (BEAKER) (test code = 752) 31.1 GM/DL 32.2-35.5 L RED CELL DISTRIBUTION WIDTH (BEAKER) (test code = 412) 15.9 % 11.7-14.4 H PLATELET COUNT (BEAKER) (test code = 756) 232 K/CU MM 150-450 MEAN PLATELET VOLUME (BEAKER) (test code = 754) 10.8 fL 9.4-12 .3 NUCLEATED RED BLOOD CELLS (BEAKER) (test code = 413) 0 /100 WBC 0 -0 NEUTROPHILS RELATIVE PERCENT (BEAKER) (test code = 429) 44 % LYMPHOCYTES RELATIVE PERCENT (BEAKER) (test code = 430) 36 % MONOCYTES RELATIVE PERCENT (BEAKER) (test code = 431) 10 % EOSINOPHILS RELATIVE PERCENT (BEAKER) (test code = 432) 9 % BASOPHILS RELATIVE PERCENT (BEAKER) (test code = 437) 1 % NEUTROPHILS ABSOLUTE COUNT (BEAKER) (test code = 670) 2.63 K/ L 1.56-6.13 LYMPHOCYTES ABSOLUTE COUNT (BEAKER) (test code = 414) 2.15 K/ L 1.18-3.74 MONOCYTES ABSOLUTE COUNT (BEAKER) (test code = 415) 0.60 K/ L 0. 24-0.36 H EOSINOPHILS ABSOLUTE COUNT (BEAKER) (test code = 416) 0.54 K/ L 0.04-0.36 H BASOPHILS ABSOLUTE COUNT (BEAKER) (test code = 417) 0.03 K/ L 0. 01-0.08 IMMATURE GRANULOCYTES-RELATIVE PERCENT (BEAKER) (test code = 2801) 0 % 0-1 BASIC METABOLIC [id number] 04:11:00* Test Item Value Reference Range Interpretation Comments SODIUM (BEAKER) (test code = 381) 139 meq/L 136-145 POTASSIUM (BEAKER) (test code = 379) 3.8 meq/L 3.5-5.1 CHLORIDE (BEAKER) (test code = 382) 109 meq/L 98-107 H CO2 (BEAKER) (test code = 355) 21 meq/L 22-29 L BLOOD UREA NITROGEN (BEAKER) (test code = 354) 12 mg/dL 7-21 CREATININE (BEAKER) (test code = 358) 0.82 mg/dL 0.57-1.25 GLUCOSE RANDOM (BEAKER) (test code = 652) 141 mg/dL 70-105 H CALCIUM (BEAKER) (test code = 697) 9.1 mg/dL 8.4-10.2 EGFR (BEAKER) (test code = 1092) 78 mL/min/1.73 sq m ESTIMATED GFR IS NOT ACCURATE CREATININE CLEARANCE IN PREDICTING GLOMERULAR FILTRATION RATE. ESTIMATED GFR IS NOT APPLICABLE FOR DIALYSIS PATIENTS. BASIC METABOLIC [id number] 09:15:00* Test Item Value Reference Range Interpretation Comments SODIUM (BEAKER) (test code = 381) 138 meq/L 136-145 POTASSIUM (BEAKER) (test code = 379) 4.0 meq/L 3.5-5.1 Specimen slightly hemolyzed CHLORIDE (BEAKER) (test code = 382) 110 meq/L 98-107 H CO2 (BEAKER) (test code = 355) 22 meq/L 22-29 BLOOD UREA NITROGEN (BEAKER) (test code = 354) 13 mg/dL 7-21 CREATININE (BEAKER) (test code = 358) 0.75 mg/dL 0.57-1.25 Specimen slightly hemolyzed GLUCOSE RANDOM (BEAKER) (test code = 652) 106 mg/dL 70-105 H CALCIUM (BEAKER) (test code = 697) 8.9 mg/dL 8.4-10.2 EGFR (BEAKER) (test code = 1092) 87 mL/min/1.73 sq m ESTIMATED GFR IS NOT ACCURATE CREATININE CLEARANCE IN PREDICTING GLOMERULAR FILTRATION RATE. ESTIMATED GFR IS NOT APPLICABLE FOR DIALYSIS PATIENTS. URINALYSIS W/ [id number] 07:05:00* Test Item Value Reference Range Interpretation Comments COLOR (BEAKER) (test code = 470) Yellow CLARITY (BEAKER) (test code = 469) Hazy SPECIFIC GRAVITY UA (BEAKER) (test code = 468) 1.013 1.001-1 .035 PH UA (BEAKER) (test code = 467) 6.0 5.0-8.0 PROTEIN UA (BEAKER) (test code = 464) Negative Negative GLUCOSE UA (BEAKER) (test code = 365) Negative Negative KETONES UA (BEAKER) (test code = 371) Negative Negative BILIRUBIN UA (BEAKER) (test code = 462) Negative Negative BLOOD UA (BEAKER) (test code = 461) Negative Negative NITRITE UA (BEAKER) (test code = 465) Positive Negative A LEUKOCYTE ESTERASE UA (BEAKER) (test code = 466) Large Negat ivonne A UROBILINOGEN UA (BEAKER) (test code = 463) 0.2 mg/dL 0.2-1.0 RBC UA (BEAKER) (test code = 519) 0 /HPF WBC UA (BEAKER) (test code = 520) 149 /HPF BACTERIA (BEAKER) (test code = 517) Many MUCUS (BEAKER) (test code = 1574) Many SQUAMOUS EPITHELIAL (BEAKER) (test code = 516) 4 /HPF HYALINE CASTS (BEAKER) (test code = 514) 2 /LPF SOURCE(BEAKER) (test code = 9339) Urine, Clean Catch CBC W/PLT COUNT & AUTO [id number] 06:47:00* Test Item Value Reference Range Interpretation Comments WHITE BLOOD CELL COUNT (BEAKER) (test code = 775) 4.1 K/ L 3.5- 10.5 RED BLOOD CELL COUNT (BEAKER) (test code = 761) 3.60 M/ L 3.93-5 .22 L HEMOGLOBIN (BEAKER) (test code = 410) 8.9 GM/DL 11.2-15.7 L HEMATOCRIT (BEAKER) (test code = 411) 29.3 % 34.1-44.9 L MEAN CORPUSCULAR VOLUME (BEAKER) (test code = 753) 81.4 fL 79. 4-94.8 MEAN CORPUSCULAR HEMOGLOBIN (BEAKER) (test code = 751) 24.7 pg 25.6-32.2 L MEAN CORPUSCULAR HEMOGLOBIN CONC (BEAKER) (test code = 752) 30.4 GM/DL 32.2-35.5 L RED CELL DISTRIBUTION WIDTH (BEAKER) (test code = 412) 16.5 % 11.7-14.4 H PLATELET COUNT (BEAKER) (test code = 756) 223 K/CU MM 150-450 MEAN PLATELET VOLUME (BEAKER) (test code = 754) 11.1 fL 9.4-12 .3 NUCLEATED RED BLOOD CELLS (BEAKER) (test code = 413) 0 /100 WBC 0 -0 NEUTROPHILS RELATIVE PERCENT (BEAKER) (test code = 429) 37 % LYMPHOCYTES RELATIVE PERCENT (BEAKER) (test code = 430) 44 % MONOCYTES RELATIVE PERCENT (BEAKER) (test code = 431) 9 % EOSINOPHILS RELATIVE PERCENT (BEAKER) (test code = 432) 10 % BASOPHILS RELATIVE PERCENT (BEAKER) (test code = 437) 1 % NEUTROPHILS ABSOLUTE COUNT (BEAKER) (test code = 670) 1.51 K/ L 1.56-6.13 L LYMPHOCYTES ABSOLUTE COUNT (BEAKER) (test code = 414) 1.78 K/ L 1.18-3.74 MONOCYTES ABSOLUTE COUNT (BEAKER) (test code = 415) 0.38 K/ L 0. 24-0.36 H EOSINOPHILS ABSOLUTE COUNT (BEAKER) (test code = 416) 0.39 K/ L 0.04-0.36 H BASOPHILS ABSOLUTE COUNT (BEAKER) (test code = 417) 0.02 K/ L 0. 01-0.08 IMMATURE GRANULOCYTES-RELATIVE PERCENT (BEAKER) (test code = 2801) 0 % 0-1 CBC W/PLT COUNT & AUTO [id number] 18:02:00* Test Item Value Reference Range Interpretation Comments WHITE BLOOD CELL COUNT (BEAKER) (test code = 775) 5.8 K/ L 3.5- 10.5 RED BLOOD CELL COUNT (BEAKER) (test code = 761) 3.88 M/ L 3.93-5 .22 L HEMOGLOBIN (BEAKER) (test code = 410) 9.9 GM/DL 11.2-15.7 L HEMATOCRIT (BEAKER) (test code = 411) 30.9 % 34.1-44.9 L MEAN CORPUSCULAR VOLUME (BEAKER) (test code = 753) 79.6 fL 79. 4-94.8 MEAN CORPUSCULAR HEMOGLOBIN (BEAKER) (test code = 751) 25.5 pg 25.6-32.2 L MEAN CORPUSCULAR HEMOGLOBIN CONC (BEAKER) (test code = 752) 32.0 GM/DL 32.2-35.5 L RED CELL DISTRIBUTION WIDTH (BEAKER) (test code = 412) 15.9 % 11.7-14.4 H PLATELET COUNT (BEAKER) (test code = 756) 225 K/CU MM 150-450 MEAN PLATELET VOLUME (BEAKER) (test code = 754) 9.8 fL 9.4-12 .3 NUCLEATED RED BLOOD CELLS (BEAKER) (test code = 413) 0 /100 WBC 0 -0 NEUTROPHILS RELATIVE PERCENT (BEAKER) (test code = 429) 39 % LYMPHOCYTES RELATIVE PERCENT (BEAKER) (test code = 430) 43 % MONOCYTES RELATIVE PERCENT (BEAKER) (test code = 431) 9 % EOSINOPHILS RELATIVE PERCENT (BEAKER) (test code = 432) 9 % BASOPHILS RELATIVE PERCENT (BEAKER) (test code = 437) 0 % NEUTROPHILS ABSOLUTE COUNT (BEAKER) (test code = 670) 2.23 K/ L 1.56-6.13 LYMPHOCYTES ABSOLUTE COUNT (BEAKER) (test code = 414) 2.48 K/ L 1.18-3.74 MONOCYTES ABSOLUTE COUNT (BEAKER) (test code = 415) 0.51 K/ L 0. 24-0.36 H EOSINOPHILS ABSOLUTE COUNT (BEAKER) (test code = 416) 0.50 K/ L 0.04-0.36 H BASOPHILS ABSOLUTE COUNT (BEAKER) (test code = 417) 0.02 K/ L 0. 01-0.08 IMMATURE GRANULOCYTES-RELATIVE PERCENT (BEAKER) (test code = 2801) 0 % 0-1 [id number] 17:57:00* Test Item Value Reference Range Interpretation Comments LIPASE (BEAKER) (test code = 749) 10 U/L 8-78 [id number] 17:57:00* Test Item Value Reference Range Interpretation Comments AMYLASE (BEAKER) (test code = 349) 43 U/L 25-125 HEPATIC FUNCTION [id number] 17:57:00* Test Item Value Reference Range Interpretation Comments TOTAL PROTEIN (BEAKER) (test code = 770) 7.4 gm/dL 6.0-8.3 ALBUMIN (BEAKER) (test code = 1145) 4.3 g/dL 3.5-5.0 BILIRUBIN TOTAL (BEAKER) (test code = 377) 0.3 mg/dL 0.2-1.2 BILIRUBIN DIRECT (BEAKER) (test code = 706) 0.1 mg/dL 0.1-0.5 ALKALINE PHOSPHATASE (BEAKER) (test code = 346) 95 U/L 40-150 AST (SGOT) (BEAKER) (test code = 353) 20 U/L 5-34 ALT (SGPT) (BEAKER) (test code = 347) 18 U/L 6-55 BASIC METABOLIC [id number] 17:57:00* Test Item Value Reference Range Interpretation Comments SODIUM (BEAKER) (test code = 381) 138 meq/L 136-145 POTASSIUM (BEAKER) (test code = 379) 4.0 meq/L 3.5-5.1 CHLORIDE (BEAKER) (test code = 382) 107 meq/L 98-107 CO2 (BEAKER) (test code = 355) 24 meq/L 22-29 BLOOD UREA NITROGEN (BEAKER) (test code = 354) 11 mg/dL 7-21 CREATININE (BEAKER) (test code = 358) 0.75 mg/dL 0.57-1.25 GLUCOSE RANDOM (BEAKER) (test code = 652) 94 mg/dL 70-105 CALCIUM (BEAKER) (test code = 697) 9.2 mg/dL 8.4-10.2 EGFR (BEAKER) (test code = 1092) mL/min/1.73 sq m INSUFFICIENT CLINICAL DATA TO CALCULATE ESTIMATED GFR. URINALYSIS W/ [id number] 12:49:00* Test Item Value Reference Range Interpretation Comments COLOR (BEAKER) (test code = 470) Light Yellow CLARITY (BEAKER) (test code = 469) Hazy SPECIFIC GRAVITY UA (BEAKER) (test code = 468) 1.013 1.001-1 .035 PH UA (BEAKER) (test code = 467) 6.0 5.0-8.0 PROTEIN UA (BEAKER) (test code = 464) 10 mg/dL Negative A GLUCOSE UA (BEAKER) (test code = 365) Negative Negative KETONES UA (BEAKER) (test code = 371) Negative Negative BILIRUBIN UA (BEAKER) (test code = 462) Negative Negative BLOOD UA (BEAKER) (test code = 461) Moderate Negative A NITRITE UA (BEAKER) (test code = 465) Positive Negative A LEUKOCYTE ESTERASE UA (BEAKER) (test code = 466) Small Negat ivonne A UROBILINOGEN UA (BEAKER) (test code = 463) 0.2 mg/dL 0.2-1.0 RBC UA (BEAKER) (test code = 519) 28 /HPF WBC UA (BEAKER) (test code = 520) 11 /HPF BACTERIA (BEAKER) (test code = 517) Many MUCUS (BEAKER) (test code = 1574) Few SQUAMOUS EPITHELIAL (BEAKER) (test code = 516) 6 /HPF HYALINE CASTS (BEAKER) (test code = 514) 4 /LPF SOURCE(BEAKER) (test code = 2795) Fungus Culture with Tnela5864-59-30 14:33:00Specimen/Source: Tissue/RIGHT FOREARMCollected: 09/06/2017 16:09 Status: Final [...] fungal growth at 4 weeks Performed at [facility] [address] [address] Supervisor Process Testing: Sidney Nuñez:[id number] Amylase Rzeiz7305-94-37 02:19:00* Test Item Value Reference Range Interpretation Comments Amylase Level (test code = 1798-8) 41 25-125 [facility]* Test Item Value Reference Range Interpretation Comments Lipase (test code = 3040-3) 6 8-78 L [facility] Cgkfx3026-65-71 02:19:00* Test Item Value Reference Range Interpretation Comments Acetaminophen Level (test code = 28458-4) -3 10-30 L [facility] Alcohol Bzhib9210-14-19 02:19:00* Test Item Value Reference Range Interpretation Comments Ethyl Alcohol Level (test code = 5643-2) -10.0 0.0-10.0 [facility] Wxijp1004-93-20 02:19:00* Test Item Value Reference Range Interpretation Comments Salicylates Level (test code = 4024-6) -5.0 0-30 [facility] Kkfep6148-31-46 02:19:00* Test Item Value Reference Range Interpretation Comments Amylase Level (test code = 1798-8) 41 25-125 [facility]2018-[facility] 02:19:00* Test Item Value Reference Range Interpretation Comments Lipase (test code = 3040-3) 6 8-78 L [facility] HospitalAcetaminophen Olyya6265-49-76 02:19:00* Test Item Value Reference Range Interpretation Comments Acetaminophen Level (test code = 85339-9) -3 10-30 L [facility] Alcohol Hudhn6545-75-62 02:19:00* Test Item Value Reference Range Interpretation Comments Ethyl Alcohol Level (test code = 5643-2) -10.0 0.0-10.0 [facility] Spndg0748-99-48 02:19:00* Test Item Value Reference Range Interpretation Comments Salicylates Level (test code = 4024-6) -5.0 0-30 [facility]07 02:19:00* Test Item Value Reference Range Interpretation Comments Acetaminophen Level (test code = 92117-8) -3 10-30 L [facility] Hospital[facility] Alcohol Juctc8361-03-35 02:19:00* Test Item Value Reference Range Interpretation Comments Ethyl Alcohol Level (test code = 5643-2) -10.0 0.0-10.0 [facility]2018-04-07 02:19:00* Test Item Value Reference Range Interpretation Comments Salicylates Level (test code = 4024-6) -5.0 0-30 [facility]2018-04-07 02:19:00* Test Item Value Reference Range Interpretation Comments Acetaminophen Level (test code = 85242-2) -3 10-30 L [facility] Hospital[facility] Alcohol Xuvck1681-78-96 02:19:00* Test Item Value Reference Range Interpretation Comments Ethyl Alcohol Level (test code = 5643-2) -10.0 0.0-10.0 [facility]2018-04-07 02:19:00* Test Item Value Reference Range Interpretation Comments Salicylates Level (test code = 4024-6) -5.0 0-30 [facility]2018-04-07 02:19:00* Test Item Value Reference Range Interpretation Comments Acetaminophen Level (test code = 13492-6) -3 10-30 L [facility] Ubqjj9174-59-95 02:19:00* Test Item Value Reference Range Interpretation Comments Ethyl Alcohol Level (test code = 5643-2) -10.0 0.0-10.0 [facility]2018-04-07 02:19:00* Test Item Value Reference Range Interpretation Comments Salicylates Level (test code = 4024-6) -5.0 0-30 [facility] Fighe4737-38-11 02:19:00* Test Item Value Reference Range Interpretation Comments Acetaminophen Level (test code = 67514-8) -3 10-30 L [facility] Alcohol Mohrq7112-62-24 02:19:00* Test Item Value Reference Range Interpretation Comments Ethyl Alcohol Level (test code = 5643-2) -10.0 0.0-10.0 [facility]2018-04-07 02:19:00* Test Item Value Reference Range Interpretation Comments Salicylates Level (test code = 4024-6) -5.0 0-30 [facility] HospitalAcetaminophen Qdctn7652-70-44 02:19:00* Test Item Value Reference Range Interpretation Comments Acetaminophen Level (test code = 34027-1) < 3 10-30 L [facility] Alcohol Gpgfv7207-89-44 02:19:00* Test Item Value Reference Range Interpretation Comments Ethyl Alcohol Level (test code = 5643-2) < 10.0 0.0-10.0 [facility]2018-04-07 02:19:00* Test Item Value Reference Range Interpretation Comments Salicylates Level (test code = 4024-6) < 5.0 0-30 [facility] Hospital[facility]et[facility]ophen Ydgav1104-95-94 02:19:00* Test Item Value Reference Range Interpretation Comments Acetaminophen Level (test code = 99950-1) < 3 10-30 L [facility] Hospital[facility] Alcohol Modyv5458-65-83 02:19:00* Test Item Value Reference Range Interpretation Comments Ethyl Alcohol Level (test code = 5643-2) < 10.0 0.0-10.0 [facility]2018-04-07 02:19:00* Test Item Value Reference Range Interpretation Comments Salicylates Level (test code = 4024-6) < 5.0 0-30 [facility] HospitalAcetaminophen Gcuow2389-18-87 02:19:00* Test Item Value Reference Range Interpretation Comments Acetaminophen Level (test code = 30460-3) < 3 10-30 L [facility] Alcohol Qbbwk6059-06-59 02:19:00* Test Item Value Reference Range Interpretation Comments Ethyl Alcohol Level (test code = 5643-2) < 10.0 0.0-10.0 [facility]2018-04-07 02:19:00* Test Item Value Reference Range Interpretation Comments Salicylates Level (test code = 4024-6) < 5.0 0-30 [facility] HospitalAcetaminophen Gdyez5001-02-65 02:19:00* Test Item Value Reference Range Interpretation Comments Acetaminophen Level (test code = 20278-7) < 3 10-30 L [facility] Alcohol Ntwtf5781-71-10 02:19:00* Test Item Value Reference Range Interpretation Comments Ethyl Alcohol Level (test code = 5643-2) < 10.0 0.0-10.0 [facility]2018-04-07 02:19:00* Test Item Value Reference Range Interpretation Comments Salicylates Level (test code = 4024-6) < 5.0 0-30 [facility] HospitalAcetaminophen Mohon2696-30-64 02:19:00* Test Item Value Reference Range Interpretation Comments Acetaminophen Level (test code = 69406-4) < 3 10-30 L [facility] HospitalEth[facility] Alcohol Istaz0160-51-30 02:19:00* Test Item Value Reference Range Interpretation Comments Ethyl Alcohol Level (test code = 5643-2) < 10.0 0.0-10.0 [facility]2018-04-07 02:19:00* Test Item Value Reference Range Interpretation Comments Salicylates Level (test code = 4024-6) < 5.0 0-30 [facility] Ogczc1370-02-01 02:19:00* Test Item Value Reference Range Interpretation Comments Acetaminophen Level (test code = 15227-4) < 3 10-30 L [facility] Alcohol Fdykl8088-18-16 02:19:00* Test Item Value Reference Range Interpretation Comments Ethyl Alcohol Level (test code = 5643-2) < 10.0 0.0-10.0 [facility] Xvvpx8055-83-63 02:19:00* Test Item Value Reference Range Interpretation Comments Salicylates Level (test code = 4024-6) < 5.0 0-30 [facility]2018-04-07 02:12:00* Test Item Value Reference Range Interpretation Comments Ammonia (test code = 20077-1) 62 31-123 [facility]2018-04-07 02:12:00* Test Item Value Reference Range Interpretation Comments Ammonia (test code = 34729-4) 62 -123 [facility]2018-04-07 02:12:00* Test Item Value Reference Range Interpretation Comments Ammonia (test code = 12884-7) 62 -123 [facility]2018-04-07 02:12:00* Test Item Value Reference Range Interpretation Comments Ammonia (test code = 33848-7) 62 -123 [facility]2018-04-07 02:12:00* Test Item Value Reference Range Interpretation Comments Ammonia (test code = 37762-6) 62 -123 [facility]2018-04-07 02:12:00* Test Item Value Reference Range Interpretation Comments Ammonia (test code = 24030-8) 62 -123 [facility]2018-04-07 02:12:00* Test Item Value Reference Range Interpretation Comments Ammonia (test code = 79288-0) 62 -123 [facility]2018-04-07 02:12:00* Test Item Value Reference Range Interpretation Comments Ammonia (test code = 25403-7) 62 -123 [facility]2018-04-07 02:12:00* Test Item Value Reference Range Interpretation Comments Ammonia (test code = 56352-8) [address] [place] [address]2018-04-07 02:12:00* Test Item Value Reference Range Interpretation Comments Ammonia (test code = 34933-5) [address] [place], [place] [address]2018-04-07 02:12:00* Test Item Value Reference Range Interpretation Comments Ammonia (test code = 76317-6) 62 31-123 [facility]2018-04-07 02:12:00* Test Item Value Reference Range Interpretation Comments Ammonia (test code = 23592-8) 62 31-123 [facility], [facility]ound Obdufynu3263-23-99 15:24:00Specimen/Source: Wound/LEFT ARMCollected: 09/26/2017 17:29 Status: Final Last Updated: 10/03/2017 15:24 Gram Stain (Final) (Final) 09/27/17 Many White blood cells seen, Rare epithelial cells, Noorganisms seen Culture Result (Final) (Final) 09/27/17 Aerobic culture: pending. 09/27/17 Anaerobic culture: pending. 09/28/17 Aerobic culture: No Growth 1 day 09/28/17 Anaerobic culture: pending. 09/29/17 Aerobic culture: No growth [...] Anaerobic culture: No anaerobes isolated \\S\\Performed at [facility] [place] \\S\\[address] [place] [address] \\S\\[place] [address] \\S\\ \\S\\Supervisor Process Testing: Alfreda Willis M.D. \\S\\CLIA:[id number] Result before changed by YANG on 10/03/2017 15:24: Culture Result (Final) (Final) 09/27/17 Aerobic culture: pending. 09/27/17 Anaerobic culture: pending. 09/28/17 Aerobic culture: No Growth 1 day 09/28/17 Anaerobic culture: pending. 09/29/17 Aerobic culture: No growth [...] Anaerobic culture: No anaerobes isolated \\S\\Performed at [facility] \\S\\[facility] \\S\\[address] [facility] [id number] \\S\\ \\S\\Dir: Paulie Stevenson MD [facility], Urine, Qualitative 2017-09-26 16:39:00* Test Item Value Reference Range Interpretation Comments Preg Qual [Ur] (test code = HUHCG) Negative Negative N Culture, Wound Qwkbvekn2733-09-42 15:16:00Specimen/Source: Tissue/RIGHT FOREARMCollected: 09/06/2017 16:09 Status: Final [...] incubation 09/12/17 No anaerobes isolated. Performed at [facility] [address] [address] Supervisor Process Testing: Alfreda Willis M.D. CLIA:[id number] Culture, Wound Ptfkjfdq4874-21-63 15:21:00Specimen/Source: Wound/RIGHT FOREARMCollected: 09/06/2017 16:09 Status: Final [...] incubation 09/12/17 No anaerobes isolated. Performed at [facility] [address] [address] Supervisor Process Testing: Alfreda Willis M.D. CLIA:[id number] [facility], Urine, Nuitajohevd4257-39-39 15:53:00* Test Item Value Reference Range Interpretation Comments Preg Qual [Ur] (test code = HUHCG) Negative Negative N Urine Bwxlmse9094-46-42 10:41:00* Test Item Value Reference Range Interpretation Comments Urine Culture (test code = 630-4) Organism: ENTEROCOCCUS FAECIUM-VR E [facility] Cglhwie7999-11-80 10:41:00* Test Item Value Reference Range Interpretation Comments Urine Culture (test code = 630-4) Organism: ENTEROCOCCUS FAECIUM-VR E [facility] Dflvskm4439-31-88 10:41:00* Test Item Value Reference Range Interpretation Comments Urine Culture (test code = 630-4) Organism: ENTEROCOCCUS FAECIUM-VR E [facility] Szfbjec9700-88-02 10:41:00* Test Item Value Reference Range Interpretation Comments Urine Culture (test code = 630-4) Organism: ENTEROCOCCUS FAECIUM-VR E [facility] Pjzdyis2100-81-85 10:41:00* Test Item Value Reference Range Interpretation Comments Urine Culture (test code = 630-4) Organism: ENTEROCOCCUS FAECIUM-VR E [facility] Dsgmmww5448-65-89 10:41:00* Test Item Value Reference Range Interpretation Comments Urine Culture (test code = 630-4) Organism: ENTEROCOCCUS FAECIUM-VR E [facility] Ulalxsj5405-89-42 10:41:00* Test Item Value Reference Range Interpretation Comments Urine Culture (test code = 630-4) Organism: ENTEROCOCCUS FAECIUM-VR E [facility] Wzubcer7131-25-26 10:41:00* Test Item Value Reference Range Interpretation Comments Urine Culture (test code = 630-4) Organism: ENTEROCOCCUS FAECIUM-VR E [facility] HEK1157-76-72 00:51:00* Test Item Value Reference Range Interpretation Comments Urine WBC (test code = 5821-4) 0-5 0-5 [facility] LKF4315-44-15 00:51:00* Test Item Value Reference Range Interpretation Comments Urine RBC (test code = 77454-3) 0-5 0-5 [facility] Hzxrwrmo2561-59-00 00:51:00* Test Item Value Reference Range Interpretation Comments Urine Bacteria (test code = 63163-9) FEW NONE [facility] Epithelial Pszrm0716-11-32 00:51:00 * Test Item Value Reference Range Interpretation Comments Urine Epithelial Cells (test code = 17981-2) RARE NONE [facility] Rmxie9064-37-28 00:51:00* Test Item Value Reference Range Interpretation Comments Urine Mucus (test code = 8247-9) FEW RARE H [facility] PPD6830-29-77 00:51:00* Test Item Value Reference Range Interpretation Comments Urine WBC (test code = 5821-4) 0-5 0-5 [facility] PIY1011-57-04 00:51:00* Test Item Value Reference Range Interpretation Comments Urine RBC (test code = 68913-6) 0-5 0-5 [facility] Gtjoogoe1060-01-08 00:51:00* Test Item Value Reference Range Interpretation Comments Urine Bacteria (test code = 35219-1) FEW NONE [facility] Epithelial Anrkp4765-99-89 00:51:00 * Test Item Value Reference Range Interpretation Comments Urine Epithelial Cells (test code = 42310-7) RARE NONE [facility] Uljve0680-39-77 00:51:00* Test Item Value Reference Range Interpretation Comments Urine Mucus (test code = 8247-9) FEW RARE H [facility] PBQ9816-34-91 00:51:00* Test Item Value Reference Range Interpretation Comments Urine WBC (test code = 5821-4) 0-5 0-5 [facility] MOS8746-59-30 00:51:00* Test Item Value Reference Range Interpretation Comments Urine RBC (test code = 64885-3) 0-5 0-5 [facility] Wsrhxxji0440-98-35 00:51:00* Test Item Value Reference Range Interpretation Comments Urine Bacteria (test code = 54066-1) FEW NONE [facility] Epithelial Nrydk6370-79-89 00:51:00 * Test Item Value Reference Range Interpretation Comments Urine Epithelial Cells (test code = 06601-1) RARE NONE [facility] Licwm9688-82-63 00:51:00* Test Item Value Reference Range Interpretation Comments Urine Mucus (test code = 8247-9) FEW RARE H [facility] ZIM4986-28-69 00:51:00* Test Item Value Reference Range Interpretation Comments Urine WBC (test code = 5821-4) 0-5 0-5 [facility] PGC5273-34-40 00:51:00* Test Item Value Reference Range Interpretation Comments Urine RBC (test code = 45816-2) 0-5 0-5 [facility] Vfxmvkln2133-70-32 00:51:00* Test Item Value Reference Range Interpretation Comments Urine Bacteria (test code = 54244-3) FEW NONE [facility] Epithelial Bqzfx5139-05-03 00:51:00 * Test Item Value Reference Range Interpretation Comments Urine Epithelial Cells (test code = 07621-3) RARE NONE [facility] Tquih6798-73-03 00:51:00* Test Item Value Reference Range Interpretation Comments Urine Mucus (test code = 8247-9) FEW RARE H [facility] Ilare1703-05-41 00:42:00* Test Item Value Reference Range Interpretation Comments Urine Color (test code = 5778-6) YELLOW YELLOW [facility] Wcgixxn7749-75-22 00:42:00* Test Item Value Reference Range Interpretation Comments Urine Clarity (test code = 03455-0) CLEAR CLEAR [facility] Specific Ovvjmgx1477-34-30 00:42:00 * Test Item Value Reference Range Interpretation Comments Urine Specific [place] (test code = 5811-5) 1.020 1.010-1.02 5 [facility] sI2500-61-20 00:42:00* Test Item Value Reference Range Interpretation Comments Urine pH (test code = 19294-2) 6 5-7 [facility] Leukocyte Yqxumuut5087-45-48 00:42:00* Test Item Value Reference Range Interpretation Comments Urine Leukocyte Esterase (test code = 5799-2) NEGATIVE NEGATIVE [facility] Hifkdzz5037-51-69 00:42:00* Test Item Value Reference Range Interpretation Comments Urine Nitrite (test code = 34196-0) NEGATIVE NEGATIVE [facility] Tuinzvb8511-68-94 00:42:00* Test Item Value Reference Range Interpretation Comments Urine Protein (test code = 5804-0) NEGATIVE NEGATIVE [facility] Glucose (UA)2017-04-07 00:42:00* Test Item Value Reference Range Interpretation Comments Urine Glucose (UA) (test code = 2349-9) NEGATIVE NEGATIVE [facility] Rnogisz7912-31-35 00:42:00* Test Item Value Reference Range Interpretation Comments Urine Ketones (test code = 90668-4) NEGATIVE NEGATIVE [facility] Tkarkpkwuedj6298-07-36 00:42:00* Test Item Value Reference Range Interpretation Comments Urine Urobilinogen (test code = 10313-4) 0.2 0.2-1 [facility] Jrszxrnlh0968-76-05 00:42:00* Test Item Value Reference Range Interpretation Comments Urine Bilirubin (test code = 1978-6) NEGATIVE NEGATIVE [facility] Xieuu6890-08-30 00:42:00* Test Item Value Reference Range Interpretation Comments Urine Blood (test code = 75122-6) NEGATIVE NEGATIVE [facility] Zbbje5151-02-52 00:42:00* Test Item Value Reference Range Interpretation Comments Urine Color (test code = 5778-6) YELLOW YELLOW [facility] Iavcgwm7522-66-96 00:42:00* Test Item Value Reference Range Interpretation Comments Urine Clarity (test code = 76269-7) CLEAR CLEAR [facility] Specific Tdhuwew1642-96-58 00:42:00 * Test Item Value Reference Range Interpretation Comments Urine Specific [place] (test code = 5811-5) 1.020 1.010-1.02 5 [facility] dA2792-71-31 00:42:00* Test Item Value Reference Range Interpretation Comments Urine pH (test code = 54694-4) 6 5-7 [facility] Leukocyte Ltcwmrhb4856-29-24 00:42:00* Test Item Value Reference Range Interpretation Comments Urine Leukocyte Esterase (test code = 5799-2) NEGATIVE NEGATIVE [facility] Ebvfrtz4263-42-37 00:42:00* Test Item Value Reference Range Interpretation Comments Urine Nitrite (test code = 89139-0) NEGATIVE NEGATIVE [facility] Fssaqfg2784-69-75 00:42:00* Test Item Value Reference Range Interpretation Comments Urine Protein (test code = 5804-0) NEGATIVE NEGATIVE [facility] Glucose (UA)2017-04-07 00:42:00* Test Item Value Reference Range Interpretation Comments Urine Glucose (UA) (test code = 2349-9) NEGATIVE NEGATIVE [facility] Lchtibp1076-54-39 00:42:00* Test Item Value Reference Range Interpretation Comments Urine Ketones (test code = 56658-5) NEGATIVE NEGATIVE [facility] Obtsydpnifdo3688-46-00 00:42:00* Test Item Value Reference Range Interpretation Comments Urine Urobilinogen (test code = 42436-0) 0.2 0.2-1 [facility] Mucwsfoyt3006-14-46 00:42:00* Test Item Value Reference Range Interpretation Comments Urine Bilirubin (test code = 1978-6) NEGATIVE NEGATIVE [facility] Uegmo5034-80-20 00:42:00* Test Item Value Reference Range Interpretation Comments Urine Blood (test code = 53932-8) NEGATIVE NEGATIVE [facility] Tddis4797-52-97 00:42:00* Test Item Value Reference Range Interpretation Comments Urine Color (test code = 5778-6) YELLOW YELLOW [facility] Hygkdpk2870-63-24 00:42:00* Test Item Value Reference Range Interpretation Comments Urine Clarity (test code = 14037-9) CLEAR CLEAR [facility] Specific Nmebnjh5642-80-35 00:42:00 * Test Item Value Reference Range Interpretation Comments Urine Specific [place] (test code = 5811-5) 1.020 1.010-1.02 5 [facility] gT1394-55-07 00:42:00* Test Item Value Reference Range Interpretation Comments Urine pH (test code = 30357-5) 6 5-7 [facility] Leukocyte Sqdewzsc2162-18-26 00:42:00* Test Item Value Reference Range Interpretation Comments Urine Leukocyte Esterase (test code = 5799-2) NEGATIVE NEGATIVE [facility] Vupwkkq0415-26-96 00:42:00* Test Item Value Reference Range Interpretation Comments Urine Nitrite (test code = 33437-4) NEGATIVE NEGATIVE [facility] Nunyfqg6583-20-41 00:42:00* Test Item Value Reference Range Interpretation Comments Urine Protein (test code = 5804-0) NEGATIVE NEGATIVE [facility] Glucose (UA)2017-04-07 00:42:00* Test Item Value Reference Range Interpretation Comments Urine Glucose (UA) (test code = 2349-9) NEGATIVE NEGATIVE [facility] Wtyyivq8015-55-80 00:42:00* Test Item Value Reference Range Interpretation Comments Urine Ketones (test code = 31313-2) NEGATIVE NEGATIVE [facility] Ddjdjiawmsmc1175-50-47 00:42:00* Test Item Value Reference Range Interpretation Comments Urine Urobilinogen (test code = 12734-5) 0.2 0.2-1 [facility] Txzhprbet0380-21-65 00:42:00* Test Item Value Reference Range Interpretation Comments Urine Bilirubin (test code = 1978-6) NEGATIVE NEGATIVE [facility] Doprk0964-68-32 00:42:00* Test Item Value Reference Range Interpretation Comments Urine Blood (test code = 15356-6) NEGATIVE NEGATIVE [facility] Fwruq4084-03-84 00:42:00* Test Item Value Reference Range Interpretation Comments Urine Color (test code = 5778-6) YELLOW YELLOW [facility] Fquqljm2804-13-56 00:42:00* Test Item Value Reference Range Interpretation Comments Urine Clarity (test code = 83318-8) CLEAR CLEAR [facility] HospitalU[facility] Specific Dpmsraw1407-52-60 00:42:00 * Test Item Value Reference Range Interpretation Comments Urine Specific [place] (test code = 5811-5) 1.020 1.010-1.02 5 [facility] sA9496-70-09 00:42:00* Test Item Value Reference Range Interpretation Comments Urine pH (test code = 37788-0) 6 5-7 [facility] Leukocyte Gxwpbdbe0094-53-41 00:42:00* Test Item Value Reference Range Interpretation Comments Urine Leukocyte Esterase (test code = 5799-2) NEGATIVE NEGATIVE [facility] Vfhxjxb8298-35-87 00:42:00* Test Item Value Reference Range Interpretation Comments Urine Nitrite (test code = 50561-7) NEGATIVE NEGATIVE [facility] Invsqan8185-50-80 00:42:00* Test Item Value Reference Range Interpretation Comments Urine Protein (test code = 5804-0) NEGATIVE NEGATIVE [facility] Glucose (UA)2017-04-07 00:42:00* Test Item Value Reference Range Interpretation Comments Urine Glucose (UA) (test code = 2349-9) NEGATIVE NEGATIVE [facility] Krauzur0143-21-23 00:42:00* Test Item Value Reference Range Interpretation Comments Urine Ketones (test code = 49578-9) NEGATIVE NEGATIVE [facility] Gbgogbloetrs6753-79-68 00:42:00* Test Item Value Reference Range Interpretation Comments Urine Urobilinogen (test code = 23534-7) 0.2 0.2-1 [facility] HospitalU[facility] Eltwtmguv8208-35-63 00:42:00* Test Item Value Reference Range Interpretation Comments Urine Bilirubin (test code = 1978-6) NEGATIVE NEGATIVE [facility] Ljndc3094-81-72 00:42:00* Test Item Value Reference Range Interpretation Comments Urine Blood (test code = 46027-8) NEGATIVE NEGATIVE [facility] Wkmsy2136-40-00 17:29:00* Test Item Value Reference Range Interpretation Comments Sodium Level (test code = 2951-2) 138 136-145 [facility] HospitalPotassium Lojrn8629-48-57 17:29:00* Test Item Value Reference Range Interpretation Comments Potassium Level (test code = 2823-3) 4.3 3.5-5.1 [facility] HospitalChloride Qiejf2648-11-28 17:29:00* Test Item Value Reference Range Interpretation Comments Chloride Level (test code = 2075-0) 109 98-107 H [facility] HospitalCarbon Dioxide Ygyrb2123-17-30 17:29:00* Test Item Value Reference Range Interpretation Comments Carbon Dioxide Level (test code = 2028-9) 17 22-29 L [facility] HospitalAnion Jqz8877-50-16 17:29:00* Test Item Value Reference Range Interpretation Comments Anion Gap (test code = 93020-5) 16.3 8-16 H [facility] HospitalBlood Urea Ypmqlsdi6608-02-81 17:29:00* Test Item Value Reference Range Interpretation Comments Blood Urea Nitrogen (test code = 3094-0) 15 7-26 [facility] HospitalCreatinine2017-07-14 17:29:00* Test Item Value Reference Range Interpretation Comments Creatinine (test code = 2160-0) 0.83 0.57-1.11 [facility] HospitalBUN/Creatinine Hxlfq1508-12-55 17:29:00* Test Item Value Reference Range Interpretation Comments BUN/Creatinine Ratio (test code = 3097-3) 18 6-25 [facility] HospitalEstimat Glomerular Filtration Rate 2017-01-20 17:29:00* Test Item Value Reference Range Interpretation Comments Estimat Glomerular Filtration Rate (test code = 45184-7) 60- >60 Ranges were taken from the National Kidney Disease Education Program and the [facility] Foundation literature.Reference ranges:60 or greater: Tmgemy31-82 ( for 3 consecutive months): Chronic kidney disease 15 or less: Kidney failureHouston [facility] West HospitalGlucose Jylvh5547-68-54 17:29:00* Test Item Value Reference Range Interpretation Comments Glucose Level (test code = QLI2937) 109 74-118 [facility] HospitalCalcium Ctdis2706-60-29 17:29:00* Test Item Value Reference Range Interpretation Comments Calcium Level (test code = 50954-0) 9.9 8.4-10.2 [facility] HospitalTotal Tusaoltsr1850-64-59 17:29:00* Test Item Value Reference Range Interpretation Comments Total Bilirubin (test code = 1975-2) 0.3 0.2-1.2 [facility] HospitalAspartate Amino Transf (AST/SGOT) 2017-01-20 17:29:00* Test Item Value Reference Range Interpretation Comments Aspartate Amino Transf (AST/SGOT) (test code = Aspartate Amino Transf (AST/SGOT)) 50 5-34 H [facility] HospitalAlanine Aminotransferase (ALT/SGPT) 2017-01-20 17:29:00* Test Item Value Reference Range Interpretation Comments Alanine Aminotransferase (ALT/SGPT) (test code = 1742-6) 42 0-55 [facility] Oyytgif0992-33-74 17:29:00* Test Item Value Reference Range Interpretation Comments Total Protein (test code = 2885-2) 8.4 6.5-8.1 H [facility] HospitalAlbumin2017-07-14 17:29:00* Test Item Value Reference Range Interpretation Comments Albumin (test code = 1751-7) 4.3 3.5-5.0 [facility] HospitalGlobulin2017-07-14 17:29:00* Test Item Value Reference Range Interpretation Comments Globulin (test code = 86526-6) 4.1 2.3-3.5 H [facility] HospitalAlbumin/Globulin Hfbiu8791-77-12 17:29:00 * Test Item Value Reference Range Interpretation Comments Albumin/Globulin Ratio (test code = 1759-0) 1.0 0.8-2.0 [facility] HospitalAlkaline Nytykeeuyhe3124-91-70 17:29:00* Test Item Value Reference Range Interpretation Comments Alkaline Phosphatase (test code = 6768-6) 107 40-150 [facility] Tfshd5095-35-48 17:29:00* Test Item Value Reference Range Interpretation Comments Sodium Level (test code = 2951-2) 138 136-145 [facility] HospitalPotassium Zrhdc0780-89-50 17:29:00* Test Item Value Reference Range Interpretation Comments Potassium Level (test code = 2823-3) 4.3 3.5-5.1 [facility] HospitalChloride Ezntx6292-98-14 17:29:00* Test Item Value Reference Range Interpretation Comments Chloride Level (test code = 2075-0) 109 98-107 H [facility] HospitalCarbon Dioxide Cnpjb7769-96-86 17:29:00* Test Item Value Reference Range Interpretation Comments Carbon Dioxide Level (test code = 2028-9) 17 22-29 L [facility] HospitalAnion Ucx0934-63-20 17:29:00* Test Item Value Reference Range Interpretation Comments Anion Gap (test code = 08126-4) 16.3 8-16 H [facility] HospitalBlood Urea Ulyzpszh8143-97-34 17:29:00* Test Item Value Reference Range Interpretation Comments Blood Urea Nitrogen (test code = 3094-0) 15 7-26 [facility] HospitalCreatinine2017-07-14 17:29:00* Test Item Value Reference Range Interpretation Comments Creatinine (test code = 2160-0) 0.83 0.57-1.11 [facility] HospitalBUN/Creatinine Flosk7737-00-51 17:29:00* Test Item Value Reference Range Interpretation Comments BUN/Creatinine Ratio (test code = 3097-3) 18 6-25 [facility] HospitalEstimat Glomerular Filtration Rate 2017-01-20 17:29:00* Test Item Value Reference Range Interpretation Comments Estimat Glomerular Filtration Rate (test code = 96629-1) 60- >60 Ranges were taken from the National Kidney Disease Education Program and the [facility] Kid[facility] Foundation literature.Reference ranges:60 or greater: Pvloxg17-57 ( for 3 consecutive months): Chronic kidney disease 15 or less: Kidney failureHouston Methodist West HospitalGlucose Rcjrt4942-18-56 17:29:00* Test Item Value Reference Range Interpretation Comments Glucose Level (test code = MLK6504) 109 74-118 [facility] HospitalCalcium Eqpdk5058-40-86 17:29:00* Test Item Value Reference Range Interpretation Comments Calcium Level (test code = 28171-4) 9.9 8.4-10.2 [facility] HospitalTotal Nljdchvix0347-04-06 17:29:00* Test Item Value Reference Range Interpretation Comments Total Bilirubin (test code = 1975-2) 0.3 0.2-1.2 [facility] HospitalAspartate Amino Transf (AST/SGOT) 2017-01-20 17:29:00* Test Item Value Reference Range Interpretation Comments Aspartate Amino Transf (AST/SGOT) (test code = Aspartate Amino Transf (AST/SGOT)) 50 5-34 H [facility] HospitalAlanine Aminotransferase (ALT/SGPT) 2017-01-20 17:29:00* Test Item Value Reference Range Interpretation Comments Alanine Aminotransferase (ALT/SGPT) (test code = 1742-6) 42 0-55 [facility] HospitalTotal Dderxvg2150-31-14 17:29:00* Test Item Value Reference Range Interpretation Comments Total Protein (test code = 2885-2) 8.4 6.5-8.1 H [facility] HospitalAlbumin2017-07-14 17:29:00* Test Item Value Reference Range Interpretation Comments Albumin (test code = 1751-7) 4.3 3.5-5.0 [facility] HospitalGlobulin2017-07-14 17:29:00* Test Item Value Reference Range Interpretation Comments Globulin (test code = 78658-1) 4.1 2.3-3.5 H [facility] HospitalAlbumin/Globulin Wrblm8463-57-42 17:29:00 * Test Item Value Reference Range Interpretation Comments Albumin/Globulin Ratio (test code = 1759-0) 1.0 0.8-2.0 [facility] HospitalAlkaline Raimeshqlin3413-82-79 17:29:00* Test Item Value Reference Range Interpretation Comments Alkaline Phosphatase (test code = 6768-6) 107 40-150 [facility]odium Ineow3865-61-43 17:29:00* Test Item Value Reference Range Interpretation Comments Sodium Level (test code = 2951-2) 138 136-145 [facility] HospitalPotassium Actyf5081-69-88 17:29:00* Test Item Value Reference Range Interpretation Comments Potassium Level (test code = 2823-3) 4.3 3.5-5.1 [facility] HospitalChloride Sfqtf3710-98-41 17:29:00* Test Item Value Reference Range Interpretation Comments Chloride Level (test code = 2075-0) 109 98-107 H [facility] HospitalCarbon Dioxide Liaam8465-29-22 17:29:00* Test Item Value Reference Range Interpretation Comments Carbon Dioxide Level (test code = 2028-9) 17 22-29 L [facility] HospitalAnion Dks7395-13-87 17:29:00* Test Item Value Reference Range Interpretation Comments Anion Gap (test code = 75145-6) 16.3 8-16 H [facility] HospitalBlood Urea Opukgkpy2736-56-58 17:29:00* Test Item Value Reference Range Interpretation Comments Blood Urea Nitrogen (test code = 3094-0) 15 7-26 [facility] HospitalCreatinine2017-07-14 17:29:00* Test Item Value Reference Range Interpretation Comments Creatinine (test code = 2160-0) 0.83 0.57-1.11 [facility] HospitalBUN/Creatinine Trdba5995-51-86 17:29:00* Test Item Value Reference Range Interpretation Comments BUN/Creatinine Ratio (test code = 3097-3) 18 6-25 [facility] HospitalEstimat Glomerular Filtration Rate 2017-01-20 17:29:00* Test Item Value Reference Range Interpretation Comments Estimat Glomerular Filtration Rate (test code = 26910-1) 60- >60 Ranges were taken from the National Kidney Disease Education Program and the [facility] Foundation literature.Reference ranges:60 or greater: Svayzp55-88 ( for 3 consecutive months): Chronic kidney disease 15 or less: Kidney failureHouston Methodist West HospitalGlucose Govgv0784-42-77 17:29:00* Test Item Value Reference Range Interpretation Comments Glucose Level (test code = ICA6833) 109 74-118 [facility] HospitalCalcium Lzafw0881-38-86 17:29:00* Test Item Value Reference Range Interpretation Comments Calcium Level (test code = 64640-7) 9.9 8.4-10.2 [facility] HospitalTotal Sjmoffkof5899-06-37 17:29:00* Test Item Value Reference Range Interpretation Comments Total Bilirubin (test code = 1975-2) 0.3 0.2-1.2 [facility] HospitalAspartate Amino Transf (AST/SGOT) 2017-01-20 17:29:00* Test Item Value Reference Range Interpretation Comments Aspartate Amino Transf (AST/SGOT) (test code = Aspartate Amino Transf (AST/SGOT)) 50 5-34 H [facility] HospitalAlanine Aminotransferase (ALT/SGPT) 2017-01-20 17:29:00* Test Item Value Reference Range Interpretation Comments Alanine Aminotransferase (ALT/SGPT) (test code = 1742-6) 42 0-55 [facility] HospitalTotal Muwkhdk1000-52-10 17:29:00* Test Item Value Reference Range Interpretation Comments Total Protein (test code = 2885-2) 8.4 6.5-8.1 H [facility] HospitalAlbumin2017-07-14 17:29:00* Test Item Value Reference Range Interpretation Comments Albumin (test code = 1751-7) 4.3 3.5-5.0 [facility] HospitalGlobulin2017-07-14 17:29:00* Test Item Value Reference Range Interpretation Comments Globulin (test code = 98284-9) 4.1 2.3-3.5 H [facility] HospitalAlbumin/Globulin Hdaxk3035-34-50 17:29:00 * Test Item Value Reference Range Interpretation Comments Albumin/Globulin Ratio (test code = 1759-0) 1.0 0.8-2.0 [facility] HospitalAlkaline Odyqkzpwvpt4032-24-81 17:29:00* Test Item Value Reference Range Interpretation Comments Alkaline Phosphatase (test code = 6768-6) 107 40-150 [facility] HospitalActivated Partial Thromboplast Time 2017-01-20 17:20:00* Test Item Value Reference Range Interpretation Comments Activated Partial Thromboplast Time (test code = 18185-5) 31.3 23.8-35.5 [facility] HospitalActivated Partial Thromboplast Time 2017-01-20 17:20:00* Test Item Value Reference Range Interpretation Comments Activated Partial Thromboplast Time (test code = 88095-2) 31.3 23.8-35.5 [facility] HospitalActivated Partial Thromboplast Time 2017-01-20 17:20:00* Test Item Value Reference Range Interpretation Comments Activated Partial Thromboplast Time (test code = 68204-7) 31.3 23.8-35.5 [facility] HospitalWhite Blood Bnxhk9777-94-51 17:19:00* Test Item Value Reference Range Interpretation Comments White Blood Count (test code = 6690-2) 6.04 4.8-10.8 [facility] HospitalRed Blood Afvxt6905-14-21 17:19:00* Test Item Value Reference Range Interpretation Comments Red Blood Count (test code = 789-8) 4.05 3.6-5.1 [facility] HospitalHemoglobin2017-07-14 17:19:00* Test Item Value Reference Range Interpretation Comments Hemoglobin (test code = 80191-3) 11.0 12.0-16.0 L [facility] HospitalHematocrit2017-07-14 17:19:00* Test Item Value Reference Range Interpretation Comments Hematocrit (test code = 4544-3) 34.1 34.2-44.1 L [facility] HospitalMean Corpuscular Jaccnn9597-14-46 17:19:00* Test Item Value Reference Range Interpretation Comments Mean Corpuscular Volume (test code = 787-2) 84.2 81-99 [facility] HospitalMean Corpuscular Bwtslcfsxa5559-26-69 17:19:00* Test Item Value Reference Range Interpretation Comments Mean Corpuscular Hemoglobin (test code = 785-6) 27.2 28-32 L [facility] HospitalMean Corpuscular Hemoglobin Concent 2017-01-20 17:19:00* Test Item Value Reference Range Interpretation Comments Mean Corpuscular Hemoglobin Concent (test code = 786-4) 32.3 31-35 [facility] HospitalRed Cell Distribution Usele8765-49-73 17:19:00* Test Item Value Reference Range Interpretation Comments Red Cell Distribution Width (test code = 27595-2) 14.6 11.7 -14.4 H [facility] HospitalPlatelet Lxetd3725-59-94 17:19:00* Test Item Value Reference Range Interpretation Comments Platelet Count (test code = 777-3) 437 140-360 H [facility] HospitalNeutrophils (%) (Auto)2017-01-20 17:19:00 * Test Item Value Reference Range Interpretation Comments Neutrophils (%) (Auto) (test code = 49576-7) 38.8 38.7-80.0 [facility] HospitalLymphocytes (%) (Auto)2017-01-20 17:19:00 * Test Item Value Reference Range Interpretation Comments Lymphocytes (%) (Auto) (test code = 736-9) 40.7 18.0-39.1 H [facility] HospitalMonocytes (%) (Auto)2017-01-20 17:19:00* Test Item Value Reference Range Interpretation Comments Monocytes (%) (Auto) (test code = 5905-5) 9.9 4.4-11.3 [facility] HospitalEosinophils (%) (Auto)2017-01-20 17:19:00 * Test Item Value Reference Range Interpretation Comments Eosinophils (%) (Auto) (test code = 713-8) 10.1 0.0-6.0 H [facility] HospitalBasophils (%) (Auto)2017-01-20 17:19:00* Test Item Value Reference Range Interpretation Comments Basophils (%) (Auto) (test code = 706-2) 0.3 0.0-1.0 [facility] HospitalIM GRANULOCYTES %2017-01-20 17:19:00* Test Item Value Reference Range Interpretation Comments IM GRANULOCYTES % (test code = IM GRANULOCYTES %) 0.2 0.0- 1.0 [facility] HospitalNeutrophils # (Auto)2017-01-20 17:19:00* Test Item Value Reference Range Interpretation Comments Neutrophils # (Auto) (test code = 751-8) 2.3 2.1-6.9 [facility] HospitalLymphocytes # (Auto)2017-01-20 17:19:00* Test Item Value Reference Range Interpretation Comments Lymphocytes # (Auto) (test code = 69888-6) 2.5 1.0-3.2 [facility] HospitalMonocytes # (Auto)2017-01-20 17:19:00* Test Item Value Reference Range Interpretation Comments Monocytes # (Auto) (test code = 742-7) 0.6 0.2-0.8 [facility] HospitalEosinophils # (Auto)2017-01-20 17:19:00* Test Item Value Reference Range Interpretation Comments Eosinophils # (Auto) (test code = 711-2) 0.6 0.0-0.4 H [facility] HospitalBasophils # (Auto)2017-01-20 17:19:00* Test Item Value Reference Range Interpretation Comments Basophils # (Auto) (test code = 704-7) 0.0 0.0-0.1 [facility] HospitalAbsolute Immature Granulocyte (auto 2017-01-20 17:19:00* Test Item Value Reference Range Interpretation Comments Absolute Immature Granulocyte (auto (may t code = Absolute Immature Granulocyte (auto) 0.01 0-0.1 [facility] HospitalProthrombin Vumn4114-92-42 17:19:00* Test Item Value Reference Range Interpretation Comments Prothrombin Time (test code = 5902-2) 12.7 11.9-14.5 [facility] HospitalProthromb Time International Ratio 2017-01-20 17:19:00* Test Item Value Reference Range Interpretation Comments Prothromb Time International Ratio (test code = 6301-6) 0.91 Oral Anticoagulant Therapy INR Values:1. Low Intensity Therapy 1.5 - 2.02 . Moderate Intensity Therapy 2.0 - 3.03. High Intensity Therapy(1) 2.5 - 3. 54. High Intensity Therapy(2) 3.0 - 4.05. Panic Value INR > 5.0 [facility] HospitalWhite Blood Syxbj8367-84-51 17:19:00* Test Item Value Reference Range Interpretation Comments White Blood Count (test code = 6690-2) 6.04 4.8-10.8 [facility] HospitalRed Blood Mlnmq4976-56-77 17:19:00* Test Item Value Reference Range Interpretation Comments Red Blood Count (test code = 789-8) 4.05 3.6-5.1 [facility] HospitalHemoglobin2017-07-14 17:19:00* Test Item Value Reference Range Interpretation Comments Hemoglobin (test code = 70155-8) 11.0 12.0-16.0 L [facility] HospitalHematocrit2017-07-14 17:19:00* Test Item Value Reference Range Interpretation Comments Hematocrit (test code = 4544-3) 34.1 34.2-44.1 L [facility] HospitalMean Corpuscular Qjermu7197-23-53 17:19:00* Test Item Value Reference Range Interpretation Comments Mean Corpuscular Volume (test code = 787-2) 84.2 81-99 [facility] HospitalMean Corpuscular Pfcfaoejne9110-74-98 17:19:00* Test Item Value Reference Range Interpretation Comments Mean Corpuscular Hemoglobin (test code = 785-6) 27.2 28-32 [facility] [facility]Mean [facility] Hemoglobin Concent 2017-01-20 17:19:00* Test Item Value Reference Range Interpretation Comments Mean Corpuscular Hemoglobin Concent (test code = 786-4) 32.3 31-35 [facility] Cell Distribution [id number] 17:19:00* Test Item Value Reference Range Interpretation Comments Red Cell Distribution Width (test code = 45186-0) 14.6 11.7 -14.4 H [facility] HospitalPlatelet Leovs3310-85-59 17:19:00* Test Item Value Reference Range Interpretation Comments Platelet Count (test code = 777-3) 437 140-360 H [facility] HospitalNeutrophils (%) (Auto)2017-01-20 17:19:00 * Test Item Value Reference Range Interpretation Comments Neutrophils (%) (Auto) (test code = 15222-3) 38.8 38.7-80.0 [facility] HospitalLymphocytes (%) (Auto)2017-01-20 17:19:00 * Test Item Value Reference Range Interpretation Comments Lymphocytes (%) (Auto) (test code = 736-9) 40.7 18.0-39.1 H [facility] HospitalMonocytes (%) (Auto)2017-01-20 17:19:00* Test Item Value Reference Range Interpretation Comments Monocytes (%) (Auto) (test code = 5905-5) 9.9 4.4-11.3 [facility] HospitalEosinophils (%) (Auto)2017-01-20 17:19:00 * Test Item Value Reference Range Interpretation Comments Eosinophils (%) (Auto) (test code = 713-8) 10.1 0.0-6.0 H [facility] HospitalBasophils (%) (Auto)2017-01-20 17:19:00* Test Item Value Reference Range Interpretation Comments Basophils (%) (Auto) (test code = 706-2) 0.3 0.0-1.0 [facility] HospitalIM GRANULOCYTES %2017-01-20 17:19:00* Test Item Value Reference Range Interpretation Comments IM GRANULOCYTES % (test code = IM GRANULOCYTES %) 0.2 0.0- 1.0 [facility] HospitalNeutrophils # (Auto)2017-01-20 17:19:00* Test Item Value Reference Range Interpretation Comments Neutrophils # (Auto) (test code = 751-8) 2.3 2.1-6.9 [facility] HospitalLymphocytes # (Auto)2017-01-20 17:19:00* Test Item Value Reference Range Interpretation Comments Lymphocytes # (Auto) (test code = 02177-8) 2.5 1.0-3.2 [facility] HospitalMonocytes # (Auto)2017-01-20 17:19:00* Test Item Value Reference Range Interpretation Comments Monocytes # (Auto) (test code = 742-7) 0.6 0.2-0.8 [facility] HospitalEosinophils # (Auto)2017-01-20 17:19:00* Test Item Value Reference Range Interpretation Comments Eosinophils # (Auto) (test code = 711-2) 0.6 0.0-0.4 H [facility] HospitalBasophils # (Auto)2017-01-20 17:19:00* Test Item Value Reference Range Interpretation Comments Basophils # (Auto) (test code = 704-7) 0.0 0.0-0.1 [facility] HospitalAbsolute Immature Granulocyte (auto 2017-01-20 17:19:00* Test Item Value Reference Range Interpretation Comments Absolute Immature Granulocyte (auto (may t code = Absolute Immature Granulocyte (auto) 0.01 0-0.1 [facility] HospitalProthrombin Xuig9507-04-88 17:19:00* Test Item Value Reference Range Interpretation Comments Prothrombin Time (test code = 5902-2) 12.7 11.9-14.5 [facility] HospitalProthromb Time International Ratio 2017-01-20 17:19:00* Test Item Value Reference Range Interpretation Comments Prothromb Time International Ratio (test code = 6301-6) 0.91 Oral Anticoagulant Therapy INR Values:1. Low Intensity Therapy 1.5 - 2.02 . Moderate Intensity Therapy 2.0 - 3.03. High Intensity Therapy(1) 2.5 - 3. 54. High Intensity Therapy(2) 3.0 - 4.05. Panic Value INR > 5.0 [facility] HospitalWhite Blood Etzti4075-64-85 17:19:00* Test Item Value Reference Range Interpretation Comments White Blood Count (test code = 6690-2) 6.04 4.8-10.8 [facility] HospitalRed Blood Dxcub7473-91-80 17:19:00* Test Item Value Reference Range Interpretation Comments Red Blood Count (test code = 789-8) 4.05 3.6-5.1 [facility] HospitalHemoglobin2017-07-14 17:19:00* Test Item Value Reference Range Interpretation Comments Hemoglobin (test code = 33454-4) 11.0 12.0-16.0 L [facility] HospitalHematocrit2017-07-14 17:19:00* Test Item Value Reference Range Interpretation Comments Hematocrit (test code = 4544-3) 34.1 34.2-44.1 L [facility] HospitalMean Corpuscular Esundm4135-40-15 17:19:00* Test Item Value Reference Range Interpretation Comments Mean Corpuscular Volume (test code = 787-2) 84.2 81-99 [facility] HospitalMean Corpuscular Goqetrvsjo3793-63-33 17:19:00* Test Item Value Reference Range Interpretation Comments Mean Corpuscular Hemoglobin (test code = 785-6) 27.2 28-32 L [facility] HospitalMean Corpuscular Hemoglobin Concent 2017-01-20 17:19:00* Test Item Value Reference Range Interpretation Comments Mean Corpuscular Hemoglobin Concent (test code = 786-4) 32.3 31-35 [facility] HospitalRed Cell Distribution Phkgo3531-44-07 17:19:00* Test Item Value Reference Range Interpretation Comments Red Cell Distribution Width (test code = 94848-0) 14.6 11.7 -14.4 H [facility] HospitalPlatelet Kbgvq4884-50-47 17:19:00* Test Item Value Reference Range Interpretation Comments Platelet Count (test code = 777-3) 437 140-360 H [facility] HospitalNeutrophils (%) (Auto)2017-01-20 17:19:00 * Test Item Value Reference Range Interpretation Comments Neutrophils (%) (Auto) (test code = 85780-4) 38.8 38.7-80.0 [facility] HospitalLymphocytes (%) (Auto)2017-01-20 17:19:00 * Test Item Value Reference Range Interpretation Comments Lymphocytes (%) (Auto) (test code = 736-9) 40.7 18.0-39.1 H [facility] HospitalMonocytes (%) (Auto)2017-01-20 17:19:00* Test Item Value Reference Range Interpretation Comments Monocytes (%) (Auto) (test code = 5905-5) 9.9 4.4-11.3 [facility] HospitalEosinophils (%) (Auto)2017-01-20 17:19:00 * Test Item Value Reference Range Interpretation Comments Eosinophils (%) (Auto) (test code = 713-8) 10.1 0.0-6.0 H [facility] HospitalBasophils (%) (Auto)2017-01-20 17:19:00* Test Item Value Reference Range Interpretation Comments Basophils (%) (Auto) (test code = 706-2) 0.3 0.0-1.0 [facility] HospitalIM GRANULOCYTES %2017-01-20 17:19:00* Test Item Value Reference Range Interpretation Comments IM GRANULOCYTES % (test code = IM GRANULOCYTES %) 0.2 0.0- 1.0 [facility] HospitalNeutrophils # (Auto)2017-01-20 17:19:00* Test Item Value Reference Range Interpretation Comments Neutrophils # (Auto) (test code = 751-8) 2.3 2.1-6.9 [facility] HospitalLymphocytes # (Auto)2017-01-20 17:19:00* Test Item Value Reference Range Interpretation Comments Lymphocytes # (Auto) (test code = 01083-6) 2.5 1.0-3.2 [facility] HospitalMonocytes # (Auto)2017-01-20 17:19:00* Test Item Value Reference Range Interpretation Comments Monocytes # (Auto) (test code = 742-7) 0.6 0.2-0.8 [facility] HospitalEosinophils # (Auto)2017-01-20 17:19:00* Test Item Value Reference Range Interpretation Comments Eosinophils # (Auto) (test code = 711-2) 0.6 0.0-0.4 H [facility] HospitalBasophils # (Auto)2017-01-20 17:19:00* Test Item Value Reference Range Interpretation Comments Basophils # (Auto) (test code = 704-7) 0.0 0.0-0.1 [facility] HospitalAbsolute Immature Granulocyte (auto 2017-01-20 17:19:00* Test Item Value Reference Range Interpretation Comments Absolute Immature Granulocyte (auto (may t code = Absolute Immature Granulocyte (auto) 0.01 0-0.1 [facility] HospitalProthrombin Prnv6318-30-00 17:19:00* Test Item Value Reference Range Interpretation Comments Prothrombin Time (test code = 5902-2) 12.7 11.9-14.5 [facility] HospitalProthromb Time International Ratio 2017-01-20 17:19:00* Test Item Value Reference Range Interpretation Comments Prothromb Time International Ratio (test code = 6301-6) 0.91 Oral Anticoagulant Therapy INR Values:1. Low Intensity Therapy 1.5 - 2.02 . Moderate Intensity Therapy 2.0 - 3.03. High Intensity Therapy(1) 2.5 - 3. 54. High Intensity Therapy(2) 3.0 - 4.05. Panic Value INR > 5.0 [facility] HospitalTotal Creatine Fltnne3586-66-70 12:38:00 * Test Item Value Reference Range Interpretation Comments Total Creatine Kinase (test code = 2157-6) 139 24-173 [facility] HospitalMacro Creatine Kinase Type [id number] 12:38:00* Test Item Value Reference Range Interpretation Comments Macro Creatine Kinase Type II (test code = 72636-5) 0 No t Observed [facility] HospitalCreatine Kinase [id number] 12:38:00* Test Item Value Reference Range Interpretation Comments Creatine Kinase MM (test code = 15718-4) 100 97-100 [facility] HospitalCreatine Kinase [id number] 12:38:00* Test Item Value Reference Range Interpretation Comments Creatine Kinase BB (test code = 79514-6) 0 >0 Performed at: [address] [id number] Director: Paulie Stevenson MD, Phone: [phone] at: [facility] [address] [id number] Director: MADISYN Garcia MD, Robin ne: [phone] [facility] Creat[facility] Kinase Type [id number] 12:38:00* Test Item Value Reference Range Interpretation Comments Macro Creatine Kinase Type I (test code = 15379-4) 0 Not Observed [facility] HospitalCreatine Kinase [id number] 12:38:00* Test Item Value Reference Range Interpretation Comments Creatine Kinase MB (test code = 89505-0) 0 0-3 [facility] HospitalTotal Creatine Uwlheb7712-26-26 12:38:00 * Test Item Value Reference Range Interpretation Comments Total Creatine Kinase (test code = 2157-6) 139 24-173 [facility] Type [id number] 12:38:00* Test Item Value Reference Range Interpretation Comments Macro Creatine Kinase Type II (test code = 70331-8) 0 No t Observed [facility] HospitalCreatine Kinase [id number] 12:38:00* Test Item Value Reference Range Interpretation Comments Creatine Kinase MM (test code = 55516-3) 100 97-100 [facility] HospitalCreatine Kinase [id number] 12:38:00* Test Item Value Reference Range Interpretation Comments Creatine Kinase BB (test code = 44073-9) 0 >0 Performed at: [facility] [id number] Director: Paulie Stevenson MD, Phone: [phone] at: [facility] [address] [id number] Director: MADISYN Garcia MD, Robin ne: [phone] [facility]ro Creatine Kinase Type [id number] 12:38:00* Test Item Value Reference Range Interpretation Comments Macro Creatine Kinase Type I (test code = 00817-8) 0 Not Observed [facility] HospitalCreatine Kinase [id number] 12:38:00* Test Item Value Reference Range Interpretation Comments Creatine Kinase MB (test code = 34634-3) 0 0-3 [facility] HospitalTotal Creatine Pwlqcn4581-61-49 12:38:00 * Test Item Value Reference Range Interpretation Comments Total Creatine Kinase (test code = 2157-6) 139 24-173 [facility] HospitalMacro Creatine Kinase Type [id number] 12:38:00* Test Item Value Reference Range Interpretation Comments Macro Creatine Kinase Type II (test code = 72075-0) 0 No t Observed [facility] HospitalCreatine Kinase [id number] 12:38:00* Test Item Value Reference Range Interpretation Comments Creatine Kinase MM (test code = 76276-4) 100 97-100 [facility] HospitalCreatine Kinase [id number] 12:38:00* Test Item Value Reference Range Interpretation Comments Creatine Kinase BB (test code = 12415-6) 0 >0 Performed at: [employer] [address] [id number] Director: Paulie Stevenson MD, Phone: [phone] at: [facility] [address] [id number] Director: MADISYN Garcia MD, [facility] ne: [phone] Memorial Medical Centerro Creatine Kinase Type [id number] 12:38:00* Test Item Value Reference Range Interpretation Comments Macro Creatine Kinase Type I (test code = 37911-3) 0 Not Observed [facility] HospitalCreatine Kinase [id number] 12:38:00* Test Item Value Reference Range Interpretation Comments Creatine Kinase MB (test code = 83477-8) 0 0-3 [facility] HospitalUrine Calcium Oxalate Xifkkuhl1195-46-04 15:42:00* Test Item Value Reference Range Interpretation Comments Urine Calcium Oxalate Crystals (test code = 5774-5) FEW FE W [facility] HospitalUrine Calcium Oxalate Daeapbwh1577-69-94 15:42:00* Test Item Value Reference Range Interpretation Comments Urine Calcium Oxalate Crystals (test code = 5774-5) FEW FE W [facility] HospitalUrine Calcium Oxalate Swuspbjd9901-49-42 15:42:00* Test Item Value Reference Range Interpretation Comments Urine Calcium Oxalate Crystals (test code = 5774-5) FEW FE W [facility] HospitalUrine Opiates Dbxazw0174-84-10 15:21:00* Test Item Value Reference Range Interpretation Comments Urine Opiates Screen (test code = 76714-3) POSITIVE NEGATIVE H This test provides only a screen. Positive results should be repeated by a confi rmatory test.[facility] HospitalUrine Barbiturates Screen 2017-01-06 15:21:00* Test Item Value Reference Range Interpretation Comments Urine Barbiturates Screen (test code = 710190949) NEGATIVE NEGA TIVE [facility] HospitalUrine Amphetamines Oudfgw7235-84-32 15:21:00* Test Item Value Reference Range Interpretation Comments Urine Amphetamines Screen (test code = 59995-5) NEGATIVE NEGATI VE [facility] HospitalUrine Benzodiazepines Pnqord6871-69-72 15:21:00* Test Item Value Reference Range Interpretation Comments Urine Benzodiazepines Screen (test code = 17414-9) POSITIVE NEG ATIVE H This test provides only a screen. Positive results should be repeated by a confi rmatory test.[facility] HospitalUrine Cocaine Screen 2017-01-06 15:21:00* Test Item Value Reference Range Interpretation Comments Urine Cocaine Screen (test code = Urine Cocaine Screen) NEGATIVE NEGATIVE [facility] HospitalUrine Cannabinoids Nmdgsh6091-15-88 15:21:00* Test Item Value Reference Range Interpretation Comments Urine Cannabinoids Screen (test code = 73446-1) NEGATIVE NEGATI VE THESE RESULTS ARE FOR MEDICAL TREATMENT ONLYTHIS REPORT CONTAINS UNCONFIR MED SCREENING RESULTS*POSITIVE RESULTS WILL BE CONFIRMED BY REFERENCE LAB UPON R EQUEST CUT-OFFDRUG CLASS CONCENTRATION ng/mLAmphetamines 1000Methamphetamines 1000Cocaine 300Opiate 300Phencyc lidine 25Cannabinoid 50Barbiturates 300Benzodiazepine 300Methadone 300[facility] TempleUrine Opiates Wwnwpu3302-14-27 15:21:00* Test Item Value Reference Range Interpretation Comments Urine Opiates Screen (test code = 51539-1) POSITIVE NEGATIVE H This test provides only a screen. Positive results should be repeated by a confi rmatory test.[facility] HospitalUrine Barbiturates Screen 2017-01-06 15:21:00* Test Item Value Reference Range Interpretation Comments Urine Barbiturates Screen (test code = 375883108) NEGATIVE NEGA TIVE [facility] HospitalUrine Amphetamines Prhzuf6364-29-89 15:21:00* Test Item Value Reference Range Interpretation Comments Urine Amphetamines Screen (test code = 11929-3) NEGATIVE NEGATI VE [facility] HospitalUrine Benzodiazepines Uqbyyf9211-00-50 15:21:00* Test Item Value Reference Range Interpretation Comments Urine Benzodiazepines Screen (test code = 91018-1) POSITIVE NEG ATIVE H This test provides only a screen. Positive results should be repeated by a confi rmatory test.[facility] HospitalUrine Cocaine Screen 2017-01-06 15:21:00* Test Item Value Reference Range Interpretation Comments Urine Cocaine Screen (test code = Urine Cocaine Screen) NEGATIVE NEGATIVE [facility] HospitalUrine Cannabinoids Rhcevp6470-49-04 15:21:00* Test Item Value Reference Range Interpretation Comments Urine Cannabinoids Screen (test code = 98740-4) NEGATIVE NEGATI VE THESE RESULTS ARE FOR MEDICAL TREATMENT ONLYTHIS REPORT CONTAINS UNCONFIR MED SCREENING RESULTS*POSITIVE RESULTS WILL BE CONFIRMED BY REFERENCE LAB UPON R EQUEST CUT-OFFDRUG CLASS CONCENTRATION ng/mLAmphetamines 1000Methamphetamines 1000Cocaine 300Opiate 300Phencyc lidine 25Cannabinoid 50Barbiturates 300Benzodiazepine 300Methadone 300[facility] TempleUrine Opiates Szqjdu5514-09-10 15:21:00* Test Item Value Reference Range Interpretation Comments Urine Opiates Screen (test code = 48573-2) POSITIVE NEGATIVE H This test provides only a screen. Positive results should be repeated by a confi rmatory test.[facility] HospitalUrine Barbiturates Screen 2017-01-06 15:21:00* Test Item Value Reference Range Interpretation Comments Urine Barbiturates Screen (test code = 347475621) NEGATIVE NEGA TIVE [facility] HospitalUrine Amphetamines Lqvkkf4513-62-85 15:21:00* Test Item Value Reference Range Interpretation Comments Urine Amphetamines Screen (test code = 71438-2) NEGATIVE NEGATI VE [facility] HospitalUrine Benzodiazepines Bgrxrg9863-98-51 15:21:00* Test Item Value Reference Range Interpretation Comments Urine Benzodiazepines Screen (test code = 87975-5) POSITIVE NEG ATIVE H This test provides only a screen. Positive results should be repeated by a confi rmatory test.[facility] HospitalUrine Cocaine Screen 2017-01-06 15:21:00* Test Item Value Reference Range Interpretation Comments Urine Cocaine Screen (test code = Urine Cocaine Screen) NEGATIVE NEGATIVE [facility] HospitalUrine Cannabinoids Xsrddd8371-79-99 15:21:00* Test Item Value Reference Range Interpretation Comments Urine Cannabinoids Screen (test code = 44940-1) NEGATIVE NEGATI VE THESE RESULTS ARE FOR MEDICAL TREATMENT ONLYTHIS REPORT CONTAINS UNCONFIR MED SCREENING RESULTS*POSITIVE RESULTS WILL BE CONFIRMED BY REFERENCE LAB UPON R EQUEST CUT-OFFDRUG CLASS CONCENTRATION ng/mLAmphetamines 1000Methamphetamines 1000Cocaine 300Opiate 300Phencyc lidine 25Cannabinoid 50Barbiturates 300Benzodiazepine 300Methadone 300[facility] TempleUrine Algobcn1372-58-65 08:00:00* Test Item Value Reference Range Interpretation Comments Urine Culture (test code = 630-4) Organism: ESCHERICHIA COLI [facility] HospitalUrine Wwtvpot2216-16-31 08:00:00* Test Item Value Reference Range Interpretation Comments Urine Culture (test code = 630-4) Organism: ESCHERICHIA COLI [facility] HospitalFORE[facility] RIGHT [facility] VIEW [place] [address] Patient Name: BELIA VIGIL MR #: [id number] : 1980 Age/Sex: 36/F Req #: [id number] Adm Physician: Ordered by: KYM DWYER [employer] Report #: [id number] Location: ER Room/Bed: Procedure: [id number] DX/FOREARM RIGHT 2 VIEW Ex am Date: [...]
== END 2020-03-17 22:40 | disposition home or self-care (01) ==
LOC: ER 20:12
DX: B37.49 Other urogenital candidiasis (principal); R31.9 Hematuria, unspecified; R11.2 Nausea with vomiting, unspecified; R10.9 Unspecified abdominal pain; M54.5 Low back pain; Q61.5 Medullary cystic kidney; Z85.07 Personal history of malignant neoplasm of pancreas
CPT/HCPCS: 36415; 74176; 80053; 81001; 82150; 83690; 85025; 87086; 96374; 99284; J0696; J1170; J2550

== ENCOUNTER → 2020-07-01 | Day surgery (SDC) | payer OTHER ==
[2020-06-29 11:32] LABS: BASOPHILS % 0.6 % (0.0-1.0); EOSINOPHILS # (AUTO) 0.6 (0.0-0.4); EOSINOPHILS % 8.5 % (0.0-6.0); HEMATOCRIT 40.1 % (34.2-44.1); HEMOGLOBIN 12.7 g/dL (12.0-16.0); LYMPHOCYTES # (AUTO) 2.7 (1.0-3.2); LYMPHOCYTES % 37.6 % (18.0-39.1); MEAN CORPUSCULAR HEMOGLOBIN 27.7 pg (28-32); MEAN CORPUSCULAR HGB CONC 31.7 g/dL (31-35); MEAN CORPUSCULAR VOLUME 87.4 fL (81-99); MONOCYTES # (AUTO) 0.6 (0.2-0.8); NEUTROPHILS # (AUTO) 3.3 (2.1-6.9); NEUTROPHILS % 45.2 % (38.7-80.0); PLATELET COUNT 545 x10e3/uL (140-360); RED BLOOD COUNT 4.59 x10e6/uL (3.6-5.1); RED CELL DISTRIBUTION WIDTH 14.6 % (11.7-14.4)
[2020-06-29 11:52] LABS: ANION GAP 13.1 mmol/L (8-16); BLOOD UREA NITROGEN 12 mg/dL (7-26); BUN/CREATININE RATIO 17 (6-25); CALCIUM 8.9 mg/dL (8.4-10.2); CARBON DIOXIDE 24 mmol/L (22-29); CHLORIDE 106 mmol/L (98-107); CREATININE, SERUM 0.72 mg/dL (0.57-1.11); EST GLOMERULAR FILTRATION RATE > 60 ML/MIN (60-); GLUCOSE 106 mg/dL (74-118); POTASSIUM 4.1 mmol/L (3.5-5.1); SODIUM 139 mmol/L (136-145)
[~2020-07-01] MED LIST changes: +ACETAMINOPHEN 1000 MG/100 ML 100 ML IV ONE; +B&O 60MG R/S 60 MG SUPP PR ONE; +GENTAMICIN 80MG/NS 100 ML 200 ML IV ONE; +HYDROMORPHONE 1MG/1ML INJ ONE; +IOPAMIDOL 300MG/ML 50ML INFUS..BTL IV ONE; +LIDOCAINE HCL 2% JELLY 5 ML TUBE ONE; +LIDOCAINE HCL 2% LOCAL INJ 5 ML SDV VIAL INJ ONE; +METOCLOPRAMIDE HCL 10 MG/2ML VIAL ONE; +MIDAZOLAM HCL 2 MG/2 ML VIAL ONE; +ONDANSETRON HCL INJ 2MG/ML 2ML 2 MG/ML VIAL ONE; +PIPER-TAZ 3.375 GM 50 ML ONE; +PROMETHAZINE HCL (IM) 25 MG/ML VIAL IM ONE; +PROPOFOL IV EMULSION 10 MG/ML 20 ML VIAL ONE; +SEVOFLURANE INHAL SOLN 250 ML PEN BTL ONE
[2020-07-01 14:00] VITALS: BP 120/65
== END | disposition home or self-care (01) ==
LOC: OR 10:03
PROVIDERS: ATTEND Urology
DX: N20.0 Calculus of kidney (principal); Z46.6 Encounter for fitting and adjustment of urinary device; N81.10 Cystocele, unspecified; N36.41 Hypermobility of urethra; N81.6 Rectocele; N28.89 Other specified disorders of kidney and ureter; R00.0 Tachycardia, unspecified; K31.84 Gastroparesis; Q61.5 Medullary cystic kidney; C25.9 Malignant neoplasm of pancreas, unspecified; Z01.810 Encounter for preprocedural cardiovascular examination; Z01.812 Encounter for preprocedural laboratory examination; Z01.818 Encounter for other preprocedural examination; Z20.828 Contact with and (suspected) exposure to other viral communicable diseases
CPT/HCPCS: 36415; 52351; 74018; 74420; 80048; 83970; 84550; 85025; 93005; C1758; C1769; J0131; J1170; J1580; J2001 ×2; J2250; J2405; J2543; J2550; J2704; J2765; Q9967; U0002

== ENCOUNTER 2021-01-29 07:20 | Inpatient (IN) | payer OTHER ==
[~2021-01-29] VITALS: Ht 152.4 cm; Wt 65.8 kg
[~2021-01-29 07:20] MED LIST changes: -ACETAMINOPHEN 1000 MG/100 ML 100 ML IV ONE; -B&O 60MG R/S 60 MG SUPP PR ONE; -GENTAMICIN 80MG/NS 100 ML 200 ML IV ONE; -HYDROMORPHONE 1MG/1ML INJ ONE; -IOPAMIDOL 300MG/ML 50ML INFUS..BTL IV ONE; -LIDOCAINE HCL 2% JELLY 5 ML TUBE ONE; -LIDOCAINE HCL 2% LOCAL INJ 5 ML SDV VIAL INJ ONE; -METOCLOPRAMIDE HCL 10 MG/2ML VIAL ONE; -MIDAZOLAM HCL 2 MG/2 ML VIAL ONE; -ONDANSETRON HCL INJ 2MG/ML 2ML 2 MG/ML VIAL ONE; -PIPER-TAZ 3.375 GM 50 ML ONE; -PROMETHAZINE HCL (IM) 25 MG/ML VIAL IM ONE; -PROPOFOL IV EMULSION 10 MG/ML 20 ML VIAL ONE; -SEVOFLURANE INHAL SOLN 250 ML PEN BTL ONE
[2021-01-29] MEDS ORDERED: HYDROMORPHONE 1MG/1ML INJ IV STA (07:37)
[2021-01-29] MEDS ORDERED: ONDANSETRON HCL INJ 2MG/ML 2ML 2 MG/ML VIAL IV STA (07:37)
[2021-01-29] MEDS ORDERED: SODIUM CHLORIDE 0.9% 1000ML 1,000 ML IV STA (07:37)
[2021-01-29] MEDS ORDERED: PROMETHAZINE 12.5MG/ NACL 0.9% 12.5 MG/50 ML BAG IV ONE (08:00)
[2021-01-29 08:25] LABS: BASOPHILS % 0.5 % (0.0-1.0); EOSINOPHILS # (AUTO) 0.7 (0.0-0.4); EOSINOPHILS % 7.4 % (0.0-6.0); HEMATOCRIT 36.1 % (34.2-44.1); HEMOGLOBIN 11.5 g/dL (12.0-16.0); LYMPHOCYTES # (AUTO) 2.5 (1.0-3.2); LYMPHOCYTES % 28.1 % (18.0-39.1); MEAN CORPUSCULAR HEMOGLOBIN 27.7 pg (28-32); MEAN CORPUSCULAR HGB CONC 31.9 g/dL (31-35); MONOCYTES # (AUTO) 0.9 (0.2-0.8); MONOCYTES % 9.9 % (4.4-11.3); NEUTROPHILS # (AUTO) 4.7 (2.1-6.9); NEUTROPHILS % 53.8 % (38.7-80.0); PLATELET COUNT 407 x10e3/uL (140-360); RED BLOOD COUNT 4.15 x10e6/uL (3.6-5.1); RED CELL DISTRIBUTION WIDTH 15.3 % (11.7-14.4)
[2021-01-29 08:44] LABS: ALBUMIN 4.3 g/dL (3.5-5.0); ALBUMIN/GLOBULIN RATIO 1.2 (0.8-2.0); CALCIUM 9.2 mg/dL (8.4-10.2); CREATININE, SERUM 0.76 mg/dL (0.57-1.11)
[2021-01-29 08:49] LABS: COLOR,URINE ORANGE (YELLOW)
[2021-01-29 08:50] LABS: BACTERIA,URINE MANY /HPF; CLARITY,URINE CLOUDY (CLEAR); EPITHELIAL CELLS,URINE FEW /LPF; KETONES,URINE TRACE (NEGATIVE); LEUKOCYTE ESTERASE ,URINE 2+ (NEGATIVE); NITRITE,URINE POSITIVE (NEGATIVE); PROTEIN,URINE DIPSTICK 2+ (NEGATIVE); RBC,URINE >50 /HPF (0-5); URINE UROBILINOGEN 2 mg/dL (0.2 - 1)
[2021-01-29] MEDS ORDERED: MEROPENEM 1 GM in SODIUM CHLORIDE 0.9% 100 ML 100 ML IV SCH (09:30)
[2021-01-29] MEDS ORDERED: B&O 60MG R/S 60 MG SUPP PR ONE (10:25)
[2021-01-29] MEDS ORDERED: IOPAMIDOL 300MG/ML 50ML INFUS..BTL IV ONE (10:25)
[2021-01-29] MEDS ORDERED: MEPERIDINE HCL INJ 25 MG/ML VIAL ONE (11:24)
[2021-01-29] MEDS ORDERED: HYDROMORPHONE 1MG/1ML INJ ONE (11:42)
[2021-01-29] MEDS ORDERED: ALPRAZOLAM1 MG PO (12:25)
[2021-01-29] MEDS ORDERED: ACETAMINOPHEN-1 EAC4 PO (12:25)
[2021-01-29] MEDS ORDERED: TRAZODONE HCL50 MG PO (12:25)
[2021-01-29 12:32] VITALS: BP 129/75
[2021-01-29 12:38] VITALS: BP 129/75
[2021-01-29] MEDS ORDERED: LACTULOSE20 GM/30 M PO (12:40)
[2021-01-29] MEDS ORDERED: MIDAZOLAM HCL 2 MG/2 ML VIAL ONE (13:07)
[2021-01-29] MEDS ORDERED: POVIDONE IODINE 0.05% 0.05 % ML PO ONE (13:16)
[2021-01-29] MEDS ORDERED: LIDOCAINE HCL 2% JELLY 5 ML TUBE ONE (13:16)
[2021-01-29] MEDS ORDERED: LIDOCAINE HCL 2% LOCAL INJ 5 ML SDV VIAL INJ ONE (13:16)
[2021-01-29] MEDS ORDERED: SEVOFLURANE INHAL SOLN 250 ML PEN BTL ONE (13:16)
[2021-01-29] MEDS ORDERED: PROPOFOL IV EMULSION 10 MG/ML 20 ML VIAL ONE (13:16)
[2021-01-29] MEDS: SODIUM CHLORIDE 0.9% 1000ML 1,000 ML IV SCH ×2 (13:27→21:59)
[2021-01-29] MEDS: MEROPENEM 1 GM in SODIUM CHLORIDE 0.9% 100 ML IV SCH ×2 (13:27→21:59)
[2021-01-29] MEDS ORDERED: PNEUMOCOCCAL VACCINE POLYVALENT 23 MCG/0.5 ML VIAL IM ONE (14:00)
[2021-01-29 15:05] VITALS: BP 133/66
[2021-01-29] MEDS: PROMETHAZINE 12.5MG/ NACL 0.9% 12.5 MG/50 ML BAG IV PRN ×3 (15:43→23:54)
[2021-01-29] MEDS: HYDROMORPHONE 1MG/1ML INJ IV PRN ×3 (15:43→23:54)
[2021-01-29 20:00] VITALS: BP 146/79
[2021-01-29] MEDS: CARVEDILOL 12.5 MG TAB PO SCH (21:55)
[2021-01-29] MEDS: AMYLAS/CELLU/LIPAS/PROTEA/BILE 12,000 UNIT CAP PO SCH (22:08)
[2021-01-29] MEDS ORDERED: TRAZODONE HCL 50 MG TAB PO PRN (22:15)
[2021-01-29 22:57] VITALS: BP 146/79
[2021-01-30] VITALS: BP 133/79
[2021-01-30] MEDS: HYDROMORPHONE 1MG/1ML INJ IV PRN ×3 (03:54→11:55)
[2021-01-30] MEDS: PROMETHAZINE 12.5MG/ NACL 0.9% 12.5 MG/50 ML BAG IV PRN ×3 (03:54→11:55)
[2021-01-30 04:00] VITALS: BP 118/81
[2021-01-30] MEDS: MEROPENEM 1 GM in SODIUM CHLORIDE 0.9% 100 ML IV SCH (05:23)
[2021-01-30] MEDS: CARVEDILOL 12.5 MG TAB PO SCH (05:23)
[2021-01-30 06:14] LABS: BASOPHILS % 0.3 % (0.0-1.0); EOSINOPHILS # (AUTO) 0.7 (0.0-0.4); EOSINOPHILS % 7.3 % (0.0-6.0); HEMATOCRIT 33.6 % (34.2-44.1); HEMOGLOBIN 10.5 g/dL (12.0-16.0); LYMPHOCYTES # (AUTO) 3.4 (1.0-3.2); LYMPHOCYTES % 34.9 % (18.0-39.1); MEAN CORPUSCULAR HEMOGLOBIN 27.6 pg (28-32); MEAN CORPUSCULAR HGB CONC 31.3 g/dL (31-35); MEAN CORPUSCULAR VOLUME 88.4 fL (81-99); MONOCYTES # (AUTO) 0.9 (0.2-0.8); MONOCYTES % 8.8 % (4.4-11.3); NEUTROPHILS # (AUTO) 4.8 (2.1-6.9); NEUTROPHILS % 48.5 % (38.7-80.0); PLATELET COUNT 374 x10e3/uL (140-360); RED CELL DISTRIBUTION WIDTH 15.5 % (11.7-14.4)
[2021-01-30 06:40] LABS: ALBUMIN 3.7 g/dL (3.5-5.0); ALBUMIN/GLOBULIN RATIO 1.2 (0.8-2.0); ANION GAP 14.3 mmol/L (8-16); CALCIUM 8.1 mg/dL (8.4-10.2); CREATININE, SERUM 0.75 mg/dL (0.57-1.11); POTASSIUM 3.3 mmol/L (3.5-5.1)
[2021-01-30 07:45] VITALS: BP 128/83
[2021-01-30] MEDS: SODIUM CHLORIDE 0.9% 1000ML 1,000 ML IV SCH (07:56)
[2021-01-30] MEDS: AMYLAS/CELLU/LIPAS/PROTEA/BILE 12,000 UNIT CAP PO SCH ×2 (07:56→12:33)
[2021-01-30 09:00] VITALS: BP 128/83
[2021-01-30 11:17] VITALS: BP 133/84
[2021-01-30] MEDS ORDERED: PNEUMOCOCCAL VACCINE POLYVALENT 23 MCG/0.5 ML VIAL IM NR (11:30)
[2021-01-30] MEDS ORDERED: PHENAZOPYRIDINE HCL 100 MG TAB PO NR (11:30)
[2021-01-30] MEDS ORDERED: POTASSIUM CHLORIDE 20 MEQ TAB CR PO ONE (12:00)
[2021-01-30] MEDS ORDERED: HEPARIN 500 UNITS/5ML MDV INJ NR (13:00)
[2021-02-04] MEDS ORDERED: PYRIDIUM200 MG PO (12:26)
[2021-02-04] MEDS ORDERED: CEFTIN PO (12:26)
== END 2021-01-30 13:57 | disposition home or self-care (01) | DRG 661 ==
LOC: ER 07:37 → ERHOLD 09:23 → MED/SURG 11:41
PROVIDERS: ADMIT Internal Medicine; ATTEND Internal Medicine
PROC: 0T778DZ Dilation of Left Ureter with Intraluminal Device, Via Natural or Artificial Opening Endoscopic (ICD-10-PCS; 2021-01-29)
PROC: BT141ZZ Fluoroscopy of Kidneys, Ureters and Bladder using Low Osmolar Contrast (ICD-10-PCS; principal; 2021-01-29 09:30)
DX: N13.2 Hydronephrosis with renal and ureteral calculous obstruction (principal); N39.0 Urinary tract infection, site not specified; R31.29 Other microscopic hematuria; N81.10 Cystocele, unspecified; N81.6 Rectocele; N36.41 Hypermobility of urethra; Z20.822 Contact with and (suspected) exposure to COVID-19; Z87.442 Personal history of urinary calculi; Z85.07 Personal history of malignant neoplasm of pancreas; Z82.3 Family history of stroke; Z83.3 Family history of diabetes mellitus; Z80.9 Family history of malignant neoplasm, unspecified; Z87.440 Personal history of urinary (tract) infections; D64.9 Anemia, unspecified; R80.9 Proteinuria, unspecified
CPT/HCPCS: 36415; 71045; 74176; 74420; 80053; 81001; 83690; 85025; 87086; 90732; 99284; C1758; C2617; J1170; J2001; J2175; J2185; J2250; J2550; J7030; J7050; U0002

== ENCOUNTER → 2021-02-06 | Day surgery (SDC) | payer OTHER ==
[~2021-02-06] MED LIST changes: +ACETAMINOPHEN-1 EAC4 PO; +ACETAMINOPHEN/CODEINE 300MG - 30MG TAB ONE; +B&O 60MG R/S 60 MG SUPP PR ONE; +CEFTIN PO; +DEXAMETHASONE SOD PHOS INJ 4 MG/ML VIAL ONE; +FENTANYL CITRATE/PF 100MCG/2 ML INJ ONE; +GENTAMICIN 80MG/NS 100 ML 200 ML IV ONE; +HEPARIN 500 UNITS/5ML MDV INJ ONE; +HYDROMORPHONE 1MG/1ML INJ ONE; +IOPAMIDOL 300MG/ML 50ML INFUS..BTL IV ONE; +LACTULOSE20 GM/30 M PO; +METOCLOPRAMIDE HCL 10 MG/2ML VIAL ONE; +MIDAZOLAM HCL 2 MG/2 ML VIAL ONE; +ONDANSETRON HCL INJ 2MG/ML 2ML 2 MG/ML VIAL ONE; +POVIDONE IODINE 0.05% 0.05 % ML PO ONE; +PROMETHAZINE HCL (IM) 25 MG/ML VIAL IM ONE; +PROPOFOL IV EMULSION 10 MG/ML 20 ML VIAL ONE; +SEVOFLURANE INHAL SOLN 250 ML PEN BTL ONE; +TRAZODONE HCL50 MG PO
[2021-02-06 12:12] VITALS: BP 121/73
== END | disposition home or self-care (01) ==
LOC: OR 07:06
PROVIDERS: ATTEND Urology
DX: Z46.6 Encounter for fitting and adjustment of urinary device (principal); N13.2 Hydronephrosis with renal and ureteral calculous obstruction; N81.10 Cystocele, unspecified; N36.41 Hypermobility of urethra; N81.6 Rectocele; F41.9 Anxiety disorder, unspecified; Z87.440 Personal history of urinary (tract) infections; Z87.442 Personal history of urinary calculi; Z88.5 Allergy status to narcotic agent; Z88.8 Allergy status to other drugs, medicaments and biological substances; Z91.041 Radiographic dye allergy status; Z01.810 Encounter for preprocedural cardiovascular examination; Z01.812 Encounter for preprocedural laboratory examination; Z20.822 Contact with and (suspected) exposure to COVID-19
CPT/HCPCS: 52332; 52352; 74018; 74420; 88300; 93005; C1769; C2617; J1100; J1170; J1580; J2250; J2405; J2550; J2704; J3010; Q9967; U0002; J2765

== ENCOUNTER 2022-02-21 20:29 | Emergency (ER) | payer OTHER ==
[~2022-02-21] VITALS: Ht 152.4 cm; Wt 65.8 kg
[~2022-02-21 20:29] MED LIST changes: -ACETAMINOPHEN/CODEINE 300MG - 30MG TAB ONE; -B&O 60MG R/S 60 MG SUPP PR ONE; -DEXAMETHASONE SOD PHOS INJ 4 MG/ML VIAL ONE; -FENTANYL CITRATE/PF 100MCG/2 ML INJ ONE; -GENTAMICIN 80MG/NS 100 ML 200 ML IV ONE; -HEPARIN 500 UNITS/5ML MDV INJ ONE; -HYDROMORPHONE 1MG/1ML INJ ONE; -IOPAMIDOL 300MG/ML 50ML INFUS..BTL IV ONE; -METOCLOPRAMIDE HCL 10 MG/2ML VIAL ONE; -MIDAZOLAM HCL 2 MG/2 ML VIAL ONE; -ONDANSETRON HCL INJ 2MG/ML 2ML 2 MG/ML VIAL ONE; -POVIDONE IODINE 0.05% 0.05 % ML PO ONE; -PROMETHAZINE HCL (IM) 25 MG/ML VIAL IM ONE; -PROPOFOL IV EMULSION 10 MG/ML 20 ML VIAL ONE; -SEVOFLURANE INHAL SOLN 250 ML PEN BTL ONE
[2022-02-21 21:53] LABS: BASOPHILS % 0.4 % (0.0-1.0); EOSINOPHILS # (AUTO) 0.6 (0.0-0.4); EOSINOPHILS % 5.4 % (0.0-6.0); HEMATOCRIT 38.7 % (34.2-44.1); LYMPHOCYTES # (AUTO) 4.2 (1.0-3.2); LYMPHOCYTES % 36.4 % (18.0-39.1); MEAN CORPUSCULAR HEMOGLOBIN 29.8 pg (28-32); MEAN CORPUSCULAR HGB CONC 33.6 g/dL (31-35); MEAN CORPUSCULAR VOLUME 88.8 fL (81-99); MONOCYTES % 8.3 % (4.4-11.3); NEUTROPHILS # (AUTO) 5.6 (2.1-6.9); NEUTROPHILS % 49.3 % (38.7-80.0); PLATELET COUNT 445 x10e3/uL (140-360); RED BLOOD COUNT 4.36 x10e6/uL (3.6-5.1); RED CELL DISTRIBUTION WIDTH 14.5 % (11.7-14.4)
[2022-02-21 22:12] LABS: ALBUMIN 4.8 g/dL (3.5-5.0); ALBUMIN/GLOBULIN RATIO 1.2 (0.8-2.0); ANION GAP 18.1 mmol/L (8-16); CALCIUM 9.3 mg/dL (8.4-10.2); CREATININE, SERUM 0.78 mg/dL (0.57-1.11); POTASSIUM 4.1 mmol/L (3.5-5.1)
[2022-02-21 22:22] LABS: CLARITY,URINE CLOUDY (CLEAR); COLOR,URINE ORANGE (YELLOW)
[2022-02-21 22:23] LABS: KETONES,URINE TRACE (NEGATIVE); LEUKOCYTE ESTERASE ,URINE LARGE (NEGATIVE); NITRITE,URINE POSITIVE (NEGATIVE); PROTEIN,URINE DIPSTICK 1+ (NEGATIVE)
[2022-02-21 22:26] LABS: BACTERIA,URINE MODERATE /HPF; EPITHELIAL CELLS,URINE RARE /LPF; RBC,URINE 0-5 /HPF (0-5)
[2022-02-21] MEDS ORDERED: PROMETHAZINE HCL (IM) 25 MG/ML VIAL IM ONE ×2 (22:30→22:35)
[2022-02-22] MEDS ORDERED: CEFTRIAXONE 1 GM VIAL IM ONE
[2022-02-22] MEDS ORDERED: LIDOCAINE HCL 1% 2 ML AMP ONE (00:20)
== END 2022-02-22 00:15 | disposition home or self-care (01) ==
LOC: ER 20:50
DX: R30.0 Dysuria (principal); N39.0 Urinary tract infection, site not specified; N20.0 Calculus of kidney; K76.0 Fatty (change of) liver, not elsewhere classified; Z85.07 Personal history of malignant neoplasm of pancreas
CPT/HCPCS: 36415; 74176; 80053; 81001; 81025; 85025; 87086; 87186; 99283; J0696; J2001; J2550

== ENCOUNTER 2024-03-16 22:11 | Inpatient (IN) | payer MEDICARE, OTHER ==
[~2024-03-16] VITALS: Ht 152.4 cm; Wt 67.1 kg
[2024-03-16 22:30] VITALS: TEMP 99.4
[2024-03-16] MEDS ORDERED: HYDROMORPHONE 1MG/1ML INJ IV STA (22:31)
[2024-03-16] MEDS: METOCLOPRAMIDE HCL 10 MG/2ML VIAL IV ONE (23:02)
[2024-03-16] MEDS: SODIUM CHLORIDE 0.9% 1000ML 1,000 ML IV ONE (23:02)
[2024-03-16] MEDS: HYDROMORPHONE 1MG/1ML INJ IV STA (23:03)
[2024-03-16 23:06] LABS: BASOPHILS % 0.3 % (0.0-1.0); EOSINOPHILS # (AUTO) 0.1 (0.0-0.4); EOSINOPHILS % 0.6 % (0.0-6.0); HEMATOCRIT 37.3 % (34.2-44.1); HEMOGLOBIN 12.1 g/dL (12.0-16.0); LYMPHOCYTES # (AUTO) 3.2 (1.0-3.2); LYMPHOCYTES % 26.7 % (18.0-39.1); MEAN CORPUSCULAR HEMOGLOBIN 29.7 pg (28-32); MEAN CORPUSCULAR HGB CONC 32.4 g/dL (31-35); MEAN CORPUSCULAR VOLUME 91.4 fL (81-99); MONOCYTES # (AUTO) 1.4 (0.2-0.8); MONOCYTES % 11.7 % (4.4-11.3); NEUTROPHILS # (AUTO) 7.2 (2.1-6.9); NEUTROPHILS % 60.4 % (38.7-80.0); PLATELET COUNT 504 x10e3/uL (140-360); RED BLOOD COUNT 4.08 x10e6/uL (3.6-5.1); RED CELL DISTRIBUTION WIDTH 12.8 % (11.7-14.4); WHITE BLOOD COUNT 11.88 x10e3/uL (4.8-10.8)
[2024-03-16 23:15] LABS: CLARITY,URINE CLEAR (CLEAR); COLOR,URINE YELLOW (YELLOW)
[2024-03-16 23:16] LABS: BILIRUBIN,URINE NEGATIVE (NEGATIVE); GLUCOSE, URINE NEGATIVE (NEGATIVE); KETONES,URINE NEGATIVE (NEGATIVE); LEUKOCYTE ESTERASE ,URINE NEGATIVE (NEGATIVE); NITRITE,URINE NEGATIVE (NEGATIVE); PH,URINE 7 (5 - 7); PROTEIN,URINE DIPSTICK NEGATIVE (NEGATIVE); URINE UROBILINOGEN 0.2 mg/dL (0.2 - 1)
[2024-03-16] MEDS: PROMETHAZINE 12.5MG/ NACL 0.9% 12.5 MG/50 ML BAG IV ONE (23:20)
[2024-03-16 23:33] LABS: ALANINE AMINOTRANSFERASE 152 IU/L (0-55); ALBUMIN 4.4 g/dL (3.5-5.0); ALBUMIN/GLOBULIN RATIO 1.1 (0.8-2.0); ALKALINE PHOSPHATASE 273 IU/L (40-150); ANION GAP 17.5 mmol/L (8-16); BILIRUBIN,TOTAL 0.7 mg/dL (0.2-1.2); BLOOD UREA NITROGEN 10 mg/dL (7-26); BUN/CREATININE RATIO 11 (6-25); CALCIUM 10.7 mg/dL (8.4-10.2); CARBON DIOXIDE 20 mmol/L (22-29); CHLORIDE 106 mmol/L (98-107); CREATININE, SERUM 0.95 mg/dL (0.57-1.11); EST GLOMERULAR FILTRATION RATE 76 ML/MIN (>=60); GLUCOSE 94 mg/dL (74-118); POTASSIUM 3.5 mmol/L (3.5-5.1); SODIUM 140 mmol/L (136-145); TOTAL PROTEIN 8.4 g/dL (6.5-8.1)
[2024-03-16 23:45] LABS: BACTERIA,URINE MANY /HPF; EPITHELIAL CELLS,URINE MANY /LPF
[2024-03-16 23:55] LABS: LIPASE 13 U/L (8-78)
[2024-03-17] VITALS (10 sets, daily range): BP systolic 101–148; BP diastolic 45–91; PULSE 88–111; RESP 16–19; TEMP 98–98.4; O2SAT 98–100
[2024-03-17] MEDS ORDERED: SODIUM CHLORIDE FLUSH 10 ML SYR INJ PRN (00:30)
[2024-03-17] MEDS: GENTAMICIN 80MG/NS 100 ML 100 ML IV SCH (01:34)
[2024-03-17] MEDS: CARVEDILOL 12.5 MG TAB PO ONE (01:46)
[2024-03-17] MEDS: ALPRAZOLAM 1 MG TAB PO ONE (01:46)
[2024-03-17] MEDS ORDERED: SYMPROIC0.2 MG PO (01:48)
[2024-03-17] MEDS: SODIUM CHLORIDE 0.9% 1000ML 1,000 ML IV SCH (06:18)
[2024-03-17] MEDS: CARVEDILOL 12.5 MG TAB PO SCH (09:00)
[2024-03-17] MEDS ORDERED: ALPRAZOLAM 1 MG TAB PO SCH (09:00)
[2024-03-17] MEDS: HYDROMORPHONE 1MG/1ML INJ IV PRN ×2 (09:06→18:28)
[2024-03-17] MEDS: PROMETHAZINE HCL 25 MG TAB PO PRN (10:45)
[2024-03-17] MEDS: AMYLAS/CELLU/LIPAS/PROTEA/BILE 12,000 UNIT CAP PO SCH (17:19)
[2024-03-17] MEDS: PROMETHAZINE 12.5MG/ NACL 0.9% 12.5 MG/50 ML BAG IV PRN (18:36)
[2024-03-17] MEDS: ALPRAZOLAM 0.5 MG TAB PO PRN (21:22)
[2024-03-17] MEDS: TRAZODONE HCL 50 MG TAB PO PRN (22:16)
[2024-03-18] VITALS (13 sets, daily range): BP systolic 93–150; BP diastolic 56–80; PULSE 61–123; RESP 16–35; TEMP 97.4–103; O2SAT 90–99
[2024-03-18 05:58] LABS: BASOPHILS % 0.2 % (0.0-1.0); EOSINOPHILS # (AUTO) 0.2 (0.0-0.4); EOSINOPHILS % 1.8 % (0.0-6.0); HEMATOCRIT 39.1 % (34.2-44.1); HEMOGLOBIN 12.1 g/dL (12.0-16.0); LYMPHOCYTES # (AUTO) 1.4 (1.0-3.2); LYMPHOCYTES % 13.9 % (18.0-39.1); MEAN CORPUSCULAR HEMOGLOBIN 29.2 pg (28-32); MEAN CORPUSCULAR HGB CONC 30.9 g/dL (31-35); MEAN CORPUSCULAR VOLUME 94.2 fL (81-99); MONOCYTES # (AUTO) 0.6 (0.2-0.8); MONOCYTES % 5.5 % (4.4-11.3); NEUTROPHILS # (AUTO) 7.9 (2.1-6.9); NEUTROPHILS % 78.3 % (38.7-80.0); PLATELET COUNT 384 x10e3/uL (140-360); RED BLOOD COUNT 4.15 x10e6/uL (3.6-5.1); WHITE BLOOD COUNT 10.13 x10e3/uL (4.8-10.8)
[2024-03-18 06:14] LABS: INR 0.99; PARTIAL THROMBOPLASTIN TIME 29.6 seconds (23.8-35.5); PROTHROMBIN TIME 13.6 seconds (11.9-14.5)
[2024-03-18 06:25] LABS: ALBUMIN/GLOBULIN RATIO 1.1 (0.8-2.0); ANION GAP 17.7 mmol/L (8-16); BILIRUBIN,TOTAL 0.6 mg/dL (0.2-1.2); CALCIUM 9.7 mg/dL (8.4-10.2); CREATININE, SERUM 0.8 mg/dL (0.57-1.11); POTASSIUM 3.7 mmol/L (3.5-5.1); TOTAL PROTEIN 7.8 g/dL (6.5-8.1)
[2024-03-18] MEDS: ACETAMINOPHEN 325 MG TAB PO PRN (10:27)
[2024-03-19] VITALS (34 sets, daily range): BP systolic 84–126; BP diastolic 51–80; PULSE 64–121; RESP 0–41; TEMP 98.8–101.6; O2SAT 89–100
[2024-03-19 07:12] LABS: BASOPHILS % 0.3 % (0.0-1.0); HEMATOCRIT 33.8 % (34.2-44.1); HEMOGLOBIN 10.8 g/dL (12.0-16.0); LYMPHOCYTES # (AUTO) 0.8 (1.0-3.2); MEAN CORPUSCULAR HEMOGLOBIN 29.8 pg (28-32); MEAN CORPUSCULAR VOLUME 93.4 fL (81-99); MONOCYTES # (AUTO) 0.3 (0.2-0.8); MONOCYTES % 3.4 % (4.4-11.3); NEUTROPHILS # (AUTO) 6.3 (2.1-6.9); NEUTROPHILS % 84.8 % (38.7-80.0); PLATELET COUNT 321 x10e3/uL (140-360); RED BLOOD COUNT 3.62 x10e6/uL (3.6-5.1); RED CELL DISTRIBUTION WIDTH 13.2 % (11.7-14.4); WHITE BLOOD COUNT 7.44 x10e3/uL (4.8-10.8)
[2024-03-19 07:39] LABS: ALBUMIN 3.3 g/dL (3.5-5.0); ALBUMIN/GLOBULIN RATIO 0.9 (0.8-2.0); ANION GAP 14.5 mmol/L (8-16); BILIRUBIN,TOTAL 0.5 mg/dL (0.2-1.2); CALCIUM 8.2 mg/dL (8.4-10.2); CREATININE, SERUM 0.78 mg/dL (0.57-1.11); MAGNESIUM 1.4 MG/DL (1.3-2.1); PHOSPHORUS 2.4 MG/DL (2.3-4.7); POTASSIUM 3.5 mmol/L (3.5-5.1); TOTAL PROTEIN 6.8 g/dL (6.5-8.1)
[2024-03-19] MEDS: MAGNESIUM SULFATE 2GM/50ML 50 ML IV ONE ×3 (09:12→15:02)
[2024-03-19 13:08] LABS: AMPHETAMINES SCREEN,URINE NEGATIVE (NEGATIVE); BENZODIAZEPINES SCREEN,URINE POSITIVE (NEGATIVE); OPIATES SCREEN,URINE POSITIVE (NEGATIVE); PHENCYCLIDINE SCREEN,URINE NEGATIVE (NEGATIVE)
[2024-03-19 13:09] LABS: CANNABINOIDS SCREEN,URINE POSITIVE (NEGATIVE); METHADONE SCREEN, URINE NEGATIVE (NEGATIVE)
[2024-03-19] MEDS ORDERED: ACETAMIN/BUTALBITAL/CAFFEINE TAB PO PRN (17:30)
[2024-03-19] MEDS ORDERED: ALPRAZOLAM 0.5 MG TAB PO SCH (17:30)
[2024-03-19] MEDS: ACETAMIN/BUTALBITAL/CAFFEINE TAB PO ONE (18:07)
[2024-03-19] MEDS: POTASSIUM CHLORIDE 10MEQ EA PO ONE (18:11)
[2024-03-19] MEDS: ALPRAZOLAM 1 MG TAB PO SCH (20:17)
[2024-03-19] MEDS ORDERED: NALDEMEDINE TOSYLATE 0.2 MG PO SCH (21:00)
[2024-03-20] VITALS (9 sets, daily range): BP systolic 100–108; BP diastolic 49–73; PULSE 100–114; RESP 19–24; TEMP 98.9–100.4; O2SAT 94–98
[2024-03-20 07:01] LABS: BASOPHILS % 0.3 % (0.0-1.0); EOSINOPHILS % 0.2 % (0.0-6.0); HEMATOCRIT 29.9 % (34.2-44.1); HEMOGLOBIN 9.7 g/dL (12.0-16.0); LYMPHOCYTES # (AUTO) 1.4 (1.0-3.2); LYMPHOCYTES % 21.6 % (18.0-39.1); MEAN CORPUSCULAR HEMOGLOBIN 29.5 pg (28-32); MEAN CORPUSCULAR HGB CONC 32.4 g/dL (31-35); MEAN CORPUSCULAR VOLUME 90.9 fL (81-99); MONOCYTES # (AUTO) 0.3 (0.2-0.8); MONOCYTES % 4.3 % (4.4-11.3); NEUTROPHILS # (AUTO) 4.8 (2.1-6.9); NEUTROPHILS % 73.3 % (38.7-80.0); PLATELET COUNT 303 x10e3/uL (140-360); RED BLOOD COUNT 3.29 x10e6/uL (3.6-5.1); WHITE BLOOD COUNT 6.56 x10e3/uL (4.8-10.8)
[2024-03-20 07:36] LABS: ALBUMIN 3.1 g/dL (3.5-5.0); ANION GAP 11.6 mmol/L (8-16); BILIRUBIN,TOTAL 0.3 mg/dL (0.2-1.2); CALCIUM 7.5 mg/dL (8.4-10.2); CREATININE, SERUM 0.71 mg/dL (0.57-1.11); POTASSIUM 3.6 mmol/L (3.5-5.1); TOTAL PROTEIN 6.1 g/dL (6.5-8.1)
[2024-03-20 09:50] LABS: BAND NEUTROPHILS % (MANUAL) 2 %; EOSINOPHILS % (MANUAL) 1 % (0-7); LYMPHOCYTES % (MANUAL) 13 % (19-48); MONOCYTES % (MANUAL) 7 % (3.4-9.0); NEUTROPHILS % (MANUAL) 76 % (40-74); PLATELET ESTIMATE ADEQUATE; PLATELET MORPHOLOGY COMMENT NORMAL; RBC MORPHOLOGY COMMENT NORMAL; REACTIVE LYMPHOCYTES 1
[2024-03-20] MEDS: Ampicillin INJ 2 GM in SODIUM CHLORIDE 0.9% 100 ML IV SCH (17:20)
[2024-03-20] MEDS: LORAZEPAM INJ 2 MG/ML VIAL IV SCH (20:56)
[2024-03-20] MEDS: HYDROMORPHONE 1MG/1ML INJ IV PRN (23:16)
[2024-03-21] VITALS (12 sets, daily range): BP systolic 107–143; BP diastolic 65–91; PULSE 97–110; RESP 10–23; TEMP 97.6–100.3; O2SAT 96–100
[2024-03-21 05:29] LABS: BASOPHILS % 0.2 % (0.0-1.0); HEMATOCRIT 29.2 % (34.2-44.1); HEMOGLOBIN 9.7 g/dL (12.0-16.0); LYMPHOCYTES # (AUTO) 1.7 (1.0-3.2); LYMPHOCYTES % 29.7 % (18.0-39.1); MEAN CORPUSCULAR HEMOGLOBIN 29.8 pg (28-32); MEAN CORPUSCULAR HGB CONC 33.2 g/dL (31-35); MEAN CORPUSCULAR VOLUME 89.6 fL (81-99); MONOCYTES # (AUTO) 0.4 (0.2-0.8); MONOCYTES % 6.3 % (4.4-11.3); NEUTROPHILS # (AUTO) 3.7 (2.1-6.9); NEUTROPHILS % 63.5 % (38.7-80.0); PLATELET COUNT 263 x10e3/uL (140-360); RED BLOOD COUNT 3.26 x10e6/uL (3.6-5.1); RED CELL DISTRIBUTION WIDTH 13.1 % (11.7-14.4); WHITE BLOOD COUNT 5.83 x10e3/uL (4.8-10.8)
[2024-03-21 05:44] LABS: ALBUMIN 2.8 g/dL (3.5-5.0); ALBUMIN/GLOBULIN RATIO 0.9 (0.8-2.0); ANION GAP 11.8 mmol/L (8-16); BILIRUBIN,TOTAL 0.3 mg/dL (0.2-1.2); CALCIUM 7.6 mg/dL (8.4-10.2); CREATININE, SERUM 0.66 mg/dL (0.57-1.11); POTASSIUM 3.8 mmol/L (3.5-5.1); TOTAL PROTEIN 5.8 g/dL (6.5-8.1)
[2024-03-21] MEDS ORDERED: BUPIVACAINE 0.5%/EPI 30 ML SDV INJ ONE (11:44)
[2024-03-21] MEDS ORDERED: MIDAZOLAM HCL 2 MG/2 ML VIAL ONE (14:11)
[2024-03-21] MEDS ORDERED: PROPOFOL IV EMULSION 10 MG/ML 20 ML VIAL ONE (17:07)
[2024-03-21] MEDS ORDERED: DEXAMETHASONE SOD PHOS INJ 4 MG/ML SDV ONE (17:07)
[2024-03-21] MEDS ORDERED: FAMOTIDINE 20 MG/2 ML VIAL IV ONE (17:07)
[2024-03-21] MEDS ORDERED: DEXMEDETOMIDINE HCL 200 MCG/2 ML VIAL ONE (17:07)
[2024-03-21] MEDS ORDERED: LIDOCAINE HCL 2% LOCAL INJ 5 ML SDV VIAL INJ ONE (17:07)
[2024-03-21] MEDS ORDERED: Ampicillin INJ 1 GM Vial ONE (17:07)
[2024-03-21] MEDS ORDERED: SEVOFLURANE INHAL SOLN 250 ML PEN BTL ONE (17:07)
[2024-03-21 20:18] LABS: AMPHETAMINES SCREEN,URINE NEGATIVE (NEGATIVE); OPIATES SCREEN,URINE POSITIVE (NEGATIVE); PHENCYCLIDINE SCREEN,URINE NEGATIVE (NEGATIVE)
[2024-03-21 20:19] LABS: BENZODIAZEPINES SCREEN,URINE POSITIVE (NEGATIVE); CANNABINOIDS SCREEN,URINE POSITIVE (NEGATIVE); METHADONE SCREEN, URINE NEGATIVE (NEGATIVE)
[2024-03-22] VITALS (8 sets, daily range): BP systolic 115–134; BP diastolic 79–98; PULSE 85–104; RESP 15–30; TEMP 97.5–97.9; O2SAT 97–99
[2024-03-22] MEDS: DOCUSATE SODIUM 100 MG CAP PO SCH (14:42)
[2024-03-22] MEDS: BISACODYL 5 MG TAB EC PO PRN (14:42)
[2024-03-23] VITALS (9 sets, daily range): BP systolic 113–132; BP diastolic 72–90; PULSE 88–102; RESP 16–22; TEMP 98.2–99.4; O2SAT 92–100
[2024-03-23] MEDS: NYSTATIN SUSPENSION 5 ML UDC PO SCH (12:56)
[2024-03-24] VITALS (8 sets, daily range): BP systolic 107–122; BP diastolic 64–78; PULSE 80–106; RESP 16–20; TEMP 98.1–100.8; O2SAT 97–100
[2024-03-24] MEDS ORDERED: HYDROMORPHONE 1MG/1ML INJ IV PRN (11:15)
[2024-03-24] MEDS: HYDROCODONE/APAP 7.5MG-325MG 1 EA TAB PO PRN (12:06)
[2024-03-24 13:42] LABS: BASOPHILS % 0.2 % (0.0-1.0); EOSINOPHILS % 0.3 % (0.0-6.0); HEMATOCRIT 31.2 % (34.2-44.1); HEMOGLOBIN 10.3 g/dL (12.0-16.0); LYMPHOCYTES # (AUTO) 2.9 (1.0-3.2); LYMPHOCYTES % 33.4 % (18.0-39.1); MEAN CORPUSCULAR HEMOGLOBIN 29.1 pg (28-32); MEAN CORPUSCULAR VOLUME 88.1 fL (81-99); MONOCYTES # (AUTO) 0.6 (0.2-0.8); MONOCYTES % 7.3 % (4.4-11.3); NEUTROPHILS % 58.1 % (38.7-80.0); PLATELET COUNT 375 x10e3/uL (140-360); RED BLOOD COUNT 3.54 x10e6/uL (3.6-5.1); RED CELL DISTRIBUTION WIDTH 13.3 % (11.7-14.4); WHITE BLOOD COUNT 8.63 x10e3/uL (4.8-10.8)
[2024-03-24 14:00] LABS: ALBUMIN/GLOBULIN RATIO 0.9 (0.8-2.0); ANION GAP 14.2 mmol/L (8-16); BILIRUBIN,TOTAL 0.5 mg/dL (0.2-1.2); CALCIUM 8.3 mg/dL (8.4-10.2); CREATININE, SERUM 0.72 mg/dL (0.57-1.11); MAGNESIUM 1.4 MG/DL (1.3-2.1); PHOSPHORUS 3.4 MG/DL (2.3-4.7); TOTAL PROTEIN 6.3 g/dL (6.5-8.1)
[2024-03-24 14:07] LABS: POTASSIUM 3.2 mmol/L (3.5-5.1)
[2024-03-24] MEDS: MAGNESIUM SULFATE 2GM/50ML 50 ML IV ONE ×2 (17:14→21:05)
[2024-03-24] MEDS ORDERED: MAGNESIUM SULFATE 2GM/50ML 50 ML IV ONE (18:45)
[2024-03-24] MEDS: POTASSIUM CHLORIDE 10MEQ EA PO ONE (21:20)
[2024-03-24] MEDS: HYDROMORPHONE 1MG/1ML INJ IV PRN (22:58)
[2024-03-25] VITALS (8 sets, daily range): BP systolic 111–127; BP diastolic 57–71; PULSE 89–105; RESP 16–18; TEMP 98.2–99.7; O2SAT 98–100
[2024-03-25 05:58] LABS: BASOPHILS % 0.1 % (0.0-1.0); EOSINOPHILS % 0.1 % (0.0-6.0); HEMATOCRIT 30.2 % (34.2-44.1); HEMOGLOBIN 9.9 g/dL (12.0-16.0); LYMPHOCYTES # (AUTO) 2.2 (1.0-3.2); LYMPHOCYTES % 25.3 % (18.0-39.1); MEAN CORPUSCULAR HEMOGLOBIN 28.9 pg (28-32); MEAN CORPUSCULAR HGB CONC 32.8 g/dL (31-35); MONOCYTES # (AUTO) 0.6 (0.2-0.8); MONOCYTES % 6.3 % (4.4-11.3); NEUTROPHILS # (AUTO) 5.9 (2.1-6.9); NEUTROPHILS % 67.4 % (38.7-80.0); PLATELET COUNT 397 x10e3/uL (140-360); RED BLOOD COUNT 3.43 x10e6/uL (3.6-5.1); WHITE BLOOD COUNT 8.72 x10e3/uL (4.8-10.8)
[2024-03-25 06:37] LABS: ALBUMIN 2.9 g/dL (3.5-5.0); ALBUMIN/GLOBULIN RATIO 0.9 (0.8-2.0); ANION GAP 11.1 mmol/L (8-16); BILIRUBIN,TOTAL 0.4 mg/dL (0.2-1.2); CALCIUM 7.8 mg/dL (8.4-10.2); CREATININE, SERUM 0.65 mg/dL (0.57-1.11)
[2024-03-25 06:39] LABS: POTASSIUM 3.1 mmol/L (3.5-5.1)
[2024-03-25] MEDS: MAGNESIUM OXIDE 400 MG TAB PO SCH (09:31)
[2024-03-25] MEDS: POTASSIUM CHLORIDE 20MEQ/100ML 300 ML IV ONE (11:29)
[2024-03-26] VITALS (7 sets, daily range): BP systolic 104–127; BP diastolic 58–74; PULSE 91–104; RESP 16–21; TEMP 98.5–100; O2SAT 97–100
[2024-03-26] MEDS ORDERED: SENNOSIDES 8.6 MG TAB PO PRN (11:00)
[2024-03-26 11:46] LABS: ANION GAP 11.3 mmol/L (8-16); CALCIUM 7.8 mg/dL (8.4-10.2); CREATININE, SERUM 0.61 mg/dL (0.57-1.11); MAGNESIUM 1.5 MG/DL (1.3-2.1); POTASSIUM 3.3 mmol/L (3.5-5.1)
[2024-03-26] MEDS: POLYETHYLENE GLYCOL 3350 17 GM PACK PO ONE (12:22)
[2024-03-26] MEDS: MAGNESIUM SULF 1GRAM/DEXTROSE 100 ML IV ONE (15:17)
[2024-03-26] MEDS: MAGNESIUM SULFATE 2GM/50ML 50 ML IV ONE (16:34)
[2024-03-26 17:28] LABS: INFLUENZAE A&B ANTIGEN (RAPID) NEGATIVE (NEGATIVE); RESPIRATORY SYNC. VIRUS NEGATIVE (NEGATIVE)
[2024-03-26] MEDS: POTASSIUM CHLORIDE 20MEQ/100ML 100 ML IV SCH (17:52)
[2024-03-26] MEDS: POLYETHYLENE GLYCOL 3350 17 GM PACK PO SCH (17:53)
[2024-03-26] MEDS: POTASSIUM CHLORIDE 10MEQ EA PO ONE (18:00)
[2024-03-26] MEDS: LUBIPROSTONE 24 MCG CAP PO SCH (22:58)
[2024-03-27] VITALS (8 sets, daily range): BP systolic 99–119; BP diastolic 55–75; PULSE 87–104; RESP 16–18; TEMP 98.4–101.3; O2SAT 93–99
[2024-03-27 02:36] LABS: CLARITY,URINE CLEAR (CLEAR); COLOR,URINE YELLOW (YELLOW)
[2024-03-27 02:37] LABS: BILIRUBIN,URINE NEGATIVE (NEGATIVE); GLUCOSE, URINE NEGATIVE (NEGATIVE); KETONES,URINE NEGATIVE (NEGATIVE); LEUKOCYTE ESTERASE ,URINE NEGATIVE (NEGATIVE); NITRITE,URINE NEGATIVE (NEGATIVE); PH,URINE 7 (5 - 7); PROTEIN,URINE DIPSTICK NEGATIVE (NEGATIVE); URINE UROBILINOGEN 1 mg/dL (0.2 - 1)
[2024-03-27 03:02] LABS: BACTERIA,URINE MODERATE /HPF; EPITHELIAL CELLS,URINE FEW /LPF; RBC,URINE 0-5 /HPF (0-5); WBC,URINE (MAN) 0-5 /HPF (0-5)
[2024-03-27 06:14] LABS: BASOPHILS % 0.1 % (0.0-1.0); EOSINOPHILS % 0.2 % (0.0-6.0); HEMATOCRIT 31.4 % (34.2-44.1); HEMOGLOBIN 10.4 g/dL (12.0-16.0); MEAN CORPUSCULAR HEMOGLOBIN 29.5 pg (28-32); MEAN CORPUSCULAR HGB CONC 33.1 g/dL (31-35); MONOCYTES % 11.2 % (4.4-11.3); NEUTROPHILS # (AUTO) 4.8 (2.1-6.9); PLATELET COUNT 534 x10e3/uL (140-360); RED BLOOD COUNT 3.53 x10e6/uL (3.6-5.1); RED CELL DISTRIBUTION WIDTH 13.4 % (11.7-14.4); WHITE BLOOD COUNT 8.87 x10e3/uL (4.8-10.8)
[2024-03-27 06:34] LABS: ANION GAP 11.1 mmol/L (8-16); CALCIUM 7.8 mg/dL (8.4-10.2); CREATININE, SERUM 0.64 mg/dL (0.57-1.11); POTASSIUM 4.1 mmol/L (3.5-5.1)
[2024-03-27 08:06] LABS: LYMPHOCYTES % (MANUAL) 41 % (19-48); MONOCYTES % (MANUAL) 8 % (3.4-9.0); NEUTROPHILS % (MANUAL) 51 % (40-74); PLATELET ESTIMATE ADEQUATE; PLATELET MORPHOLOGY COMMENT NORMAL
[2024-03-27 08:07] LABS: RBC MORPHOLOGY COMMENT NORMAL
[2024-03-27] MEDS: ALPRAZOLAM 1 MG TAB PO SCH (12:44)
[2024-03-28] VITALS (8 sets, daily range): BP systolic 100–124; BP diastolic 52–67; PULSE 91–109; RESP 16–18; TEMP 97.5–101.4; O2SAT 95–100
[2024-03-28 05:42] LABS: BASOPHILS % 0.2 % (0.0-1.0); EOSINOPHILS % 0.2 % (0.0-6.0); HEMATOCRIT 33.7 % (34.2-44.1); HEMOGLOBIN 10.8 g/dL (12.0-16.0); LYMPHOCYTES # (AUTO) 2.9 (1.0-3.2); LYMPHOCYTES % 33.4 % (18.0-39.1); MEAN CORPUSCULAR HEMOGLOBIN 29.2 pg (28-32); MEAN CORPUSCULAR VOLUME 91.1 fL (81-99); MONOCYTES % 10.2 % (4.4-11.3); NEUTROPHILS # (AUTO) 4.8 (2.1-6.9); NEUTROPHILS % 55.5 % (38.7-80.0); PLATELET COUNT 563 x10e3/uL (140-360); RED CELL DISTRIBUTION WIDTH 14.1 % (11.7-14.4)
[2024-03-28 05:43] LABS: MONOCYTES # (AUTO) 0.9 (0.2-0.8)
[2024-03-28 05:53] LABS: ANION GAP 11.3 mmol/L (8-16); CALCIUM 7.8 mg/dL (8.4-10.2); CREATININE, SERUM 0.65 mg/dL (0.57-1.11); POTASSIUM 4.3 mmol/L (3.5-5.1)
[2024-03-28] MEDS: HYDROMORPHONE 1MG/1ML INJ IV PRN (15:22)
[2024-03-28] MEDS: ACETAMINOPHEN/CODEINE 300MG - 30MG TAB PO PRN (18:44)
[2024-03-29] VITALS (8 sets, daily range): BP systolic 103–113; BP diastolic 47–66; PULSE 84–98; RESP 16–18; TEMP 98–99.9; O2SAT 93–100
[2024-03-29 06:01] LABS: BASOPHILS % 0.2 % (0.0-1.0); EOSINOPHILS # (AUTO) 0.1 (0.0-0.4); EOSINOPHILS % 0.7 % (0.0-6.0); HEMATOCRIT 28.7 % (34.2-44.1); HEMOGLOBIN 9.6 g/dL (12.0-16.0); LYMPHOCYTES # (AUTO) 2.6 (1.0-3.2); MEAN CORPUSCULAR HEMOGLOBIN 29.1 pg (28-32); MEAN CORPUSCULAR HGB CONC 33.4 g/dL (31-35); MONOCYTES # (AUTO) 0.6 (0.2-0.8); MONOCYTES % 7.3 % (4.4-11.3); NEUTROPHILS # (AUTO) 5.4 (2.1-6.9); NEUTROPHILS % 61.2 % (38.7-80.0); PLATELET COUNT 545 x10e3/uL (140-360); RED CELL DISTRIBUTION WIDTH 13.8 % (11.7-14.4); WHITE BLOOD COUNT 8.74 x10e3/uL (4.8-10.8)
[2024-03-29 06:10] LABS: INR 1.15; PARTIAL THROMBOPLASTIN TIME 39.1 seconds (23.8-35.5); PROTHROMBIN TIME 15.3 seconds (11.9-14.5)
[2024-03-29 06:18] LABS: ANION GAP 8.8 mmol/L (8-16); CREATININE, SERUM 0.69 mg/dL (0.57-1.11); POTASSIUM 3.8 mmol/L (3.5-5.1)
[2024-03-29] MEDS: BENZOCAINE 20% SPR 60 ML CAN ONE (14:13)
[2024-03-29] MEDS: SODIUM CHLORIDE 0.9% 1000ML 1,000 ML ONE (14:13)
[2024-03-29] MEDS: HYDROMORPHONE 1MG/1ML INJ IV PRN (16:49)
[2024-03-29] MEDS ORDERED: FAMOTIDINE 20 MG/2 ML VIAL IV ONE (17:37)
[2024-03-29] MEDS ORDERED: SUCCINYLCHOLINE CHLORIDE 20 MG/ML 10ML VIAL ONE (17:37)
[2024-03-29] MEDS ORDERED: PROPOFOL IV EMULSION 10 MG/ML 20 ML VIAL ONE (17:37)
[2024-03-29] MEDS ORDERED: LIDOCAINE HCL 2% LOCAL INJ 5 ML SDV VIAL INJ ONE (17:37)
[2024-03-29] MEDS ORDERED: EPHEDRINE SULFATE INJ 50 MG/ML VIAL ONE (17:37)
[2024-03-29] MEDS ORDERED: SEVOFLURANE INHAL SOLN 250 ML PEN BTL ONE (17:44)
[2024-03-29] MEDS: AMOXICILLIN/CLAVULANATE K 875 MG TAB PO SCH (21:07)
[2024-03-30] VITALS (8 sets, daily range): BP systolic 100–146; BP diastolic 50–84; PULSE 86–106; RESP 18; TEMP 98.4–102.2; O2SAT 95–100
[2024-03-30] MEDS: METOCLOPRAMIDE HCL 10 MG/2ML VIAL IV SCH (01:45)
[2024-03-30] MEDS: HYDROMORPHONE 1MG/1ML INJ IV PRN (15:26)
[2024-03-30] MEDS: FLUCONAZOLE 100 MG TAB PO ONE (20:39)
[2024-03-31] VITALS (8 sets, daily range): BP systolic 98–118; BP diastolic 51–69; PULSE 79–111; RESP 18–20; TEMP 98.8–101.3; O2SAT 94–100
[2024-03-31] MEDS: METOCLOPRAMIDE HCL 10 MG/2ML VIAL IV SCH ×2 (00:17→08:08)
[2024-03-31] MEDS: SCOPOLAMINE 1 MG PATCH TOP SCH (00:17)
[2024-03-31 06:23] LABS: BASOPHILS % 0.2 % (0.0-1.0); EOSINOPHILS % 0.3 % (0.0-6.0); HEMATOCRIT 28.3 % (34.2-44.1); HEMOGLOBIN 9.6 g/dL (12.0-16.0); LYMPHOCYTES # (AUTO) 3.2 (1.0-3.2); LYMPHOCYTES % 34.8 % (18.0-39.1); MEAN CORPUSCULAR HEMOGLOBIN 29.4 pg (28-32); MEAN CORPUSCULAR HGB CONC 33.9 g/dL (31-35); MEAN CORPUSCULAR VOLUME 86.5 fL (81-99); MONOCYTES # (AUTO) 0.6 (0.2-0.8); MONOCYTES % 6.2 % (4.4-11.3); NEUTROPHILS # (AUTO) 5.4 (2.1-6.9); NEUTROPHILS % 58.2 % (38.7-80.0); PLATELET COUNT 643 x10e3/uL (140-360); RED BLOOD COUNT 3.27 x10e6/uL (3.6-5.1); WHITE BLOOD COUNT 9.22 x10e3/uL (4.8-10.8)
[2024-03-31 07:22] LABS: ANION GAP 11.6 mmol/L (8-16); CALCIUM 7.8 mg/dL (8.4-10.2); CREATININE, SERUM 0.69 mg/dL (0.57-1.11); MAGNESIUM 1.8 MG/DL (1.3-2.1); PHOSPHORUS 2.4 MG/DL (2.3-4.7); POTASSIUM 3.6 mmol/L (3.5-5.1)
[2024-03-31] MEDS: POTASSIUM CHLORIDE 10MEQ EA PO ONE (11:37)
[2024-03-31] MEDS: PREDNISONE 10 MG TAB PO SCH (15:14)
[2024-04-01] VITALS: BP_SYST 108; BP_SYST 92; BP_DIAS 52; BP_DIAS 65; PULSE 104; PULSE 90; RESP 20; TEMP 98.9; O2SAT 100
[2024-04-01 03:03] VITALS: BP 108/65; PULSE 104; RESP 20; TEMP 98.9; O2SAT 100
[2024-04-01 04:00] VITALS: BP 105/62; PULSE 79; RESP 20; TEMP 98.1; O2SAT 96
[2024-04-01 09:36] VITALS: BP 109/57; PULSE 97; RESP 20; TEMP 98.4; O2SAT 100
[2024-04-01] MEDS ORDERED: PANTOPRAZOLE SO40 MG PO (11:14)
[2024-04-01] MEDS ORDERED: AMOX TR-K CLV1 EAC2 PO (11:14)
[2024-04-01] MEDS ORDERED: REGLAN10 MG PO (11:14)
[2024-04-01] MEDS ORDERED: PREDNISONE10 MG PO (11:14)
[2024-04-01] MEDS ORDERED: PROMETHAZINE HC25 M1 PO (11:14)
[2024-04-01] MEDS ORDERED: TRANSDERM-SCOP1 EACH TOP (11:14)
[2024-04-01 12:35] VITALS: TEMP 101.1
[2024-04-02 07:20] LABS: C-REACTIVE PROTEIN 39 mg/L (0-10)
== END 2024-04-01 14:10 | disposition home or self-care (01) | DRG 315 ==
LOC: ER 22:18 → ERHOLD 03-17 00:29 → MED/SURG3 03-17 01:08 → OBSVTOIN 03-18 14:33 → ICU 03-18 21:18 → MED/SURG3 03-23 14:41
PROVIDERS: ADMIT Internal Medicine; ATTEND Internal Medicine
PROC: 02PYX3Z Removal of Infusion Device from Great Vessel, External Approach (ICD-10-PCS; 2024-03-21)
PROC: 0JPT0XZ Removal of Tunneled Vascular Access Device from Trunk Subcutaneous Tissue and Fascia, Open Approach (ICD-10-PCS; principal; 2024-03-21 12:04)
DX: T80.211A Bloodstream infection due to central venous catheter, initial encounter (principal); N12 Tubulo-interstitial nephritis, not specified as acute or chronic; R78.81 Bacteremia; Q61.5 Medullary cystic kidney; T82.538A Leakage of other cardiac and vascular devices and implants, initial encounter; K76.0 Fatty (change of) liver, not elsewhere classified; N20.0 Calculus of kidney; I10 Essential (primary) hypertension; B95.5 Unspecified streptococcus as the cause of diseases classified elsewhere; E87.6 Hypokalemia; E83.42 Hypomagnesemia; F41.9 Anxiety disorder, unspecified; R94.5 Abnormal results of liver function studies; K59.03 Drug induced constipation; T40.2X5A Adverse effect of other opioids, initial encounter; R30.0 Dysuria; Z11.52 Encounter for screening for COVID-19; F12.10 Cannabis abuse, uncomplicated; Z90.49 Acquired absence of other specified parts of digestive tract; Z85.07 Personal history of malignant neoplasm of pancreas; Z87.442 Personal history of urinary calculi; Z90.710 Acquired absence of both cervix and uterus; Z91.041 Radiographic dye allergy status; Z88.5 Allergy status to narcotic agent; Z88.1 Allergy status to other antibiotic agents; Z88.8 Allergy status to other drugs, medicaments and biological substances; Y84.8 Other medical procedures as the cause of abnormal reaction of the patient, or of later complication, without mention of misadventure at the time of the procedure
CPT/HCPCS: 36415; 36569; 71045; 74176; 80048; 80053; 80307; 81001; 83605; 83690; 83735; 84100; 84702; 85025; 85610; 85651; 85730; 86039; 86140; 87040; 87071; 87086; 87186; 87205; 87400; 87420; 88300; 93005; 93306; 93307; 93312; 93320; 93325; 96365; 99252; 99284; G0378; J0330; J0696; J1100; J1170; J1580; J2001; J2060; J2250; J2470; J2543; J2550; J2765; J3475; J3480; J7030; J7050; J7512; U0002

== ENCOUNTER 2024-06-23 18:03 | Inpatient (IN) | payer BC ==
[~2024-06-23] VITALS: Ht 152.4 cm; Wt 67.1 kg
[~2024-06-23 18:03] MED LIST changes: +AMOX TR-K CLV1 EAC2 PO; +PANTOPRAZOLE SO40 MG PO; +PREDNISONE10 MG PO; +REGLAN10 MG PO; +SYMPROIC0.2 MG PO; +TRANSDERM-SCOP1 EACH TOP
[2024-06-23] MEDS ORDERED: PROMETHAZINE HCL (IM) 25 MG/ML VIAL IM ONE (19:53)
[2024-06-23] MEDS: SODIUM CHLORIDE 0.9% 1000ML 1,000 ML IV ONE ×2 (20:20→21:56)
[2024-06-23] MEDS: PROMETHAZINE 12.5MG/ NACL 0.9% 12.5 MG/50 ML BAG IV ONE (20:33)
[2024-06-23 21:34] VITALS: PULSE 110; RESP 20; TEMP 98
[2024-06-23] MEDS: SODIUM CHLORIDE 0.9% 1000ML 1,000 ML IV SCH (23:37)
[2024-06-23] MEDS: HYDROMORPHONE 1MG/1ML INJ IV PRN (23:38)
[2024-06-24] VITALS (10 sets, daily range): BP systolic 125–141; BP diastolic 79–92; PULSE 87–107; RESP 16–19; TEMP 98–99; O2SAT 98–100
[2024-06-24] MEDS ORDERED: ACETAMINOPHEN-1 EAC4 PO (00:58)
[2024-06-24] MEDS ORDERED: HYDRALAZINE HCL 20 MG/ML VIAL IV PRN (09:45)
[2024-06-24] MEDS: METOCLOPRAMIDE HCL 10 MG/2ML VIAL IV SCH (11:07)
[2024-06-24] MEDS: CARVEDILOL 12.5 MG TAB PO SCH (11:08)
[2024-06-24] MEDS: PROMETHAZINE 12.5MG/ NACL 0.9% 12.5 MG/50 ML BAG IV PRN (11:08)
[2024-06-24] MEDS: ENOXAPARIN SOD INJ 40 MG/0.4 ML SYR SC SCH (16:54)
[2024-06-25] VITALS (9 sets, daily range): BP systolic 110–134; BP diastolic 56–85; PULSE 74–100; RESP 16–20; TEMP 97.9–98.7; O2SAT 98–100
[2024-06-25] MEDS: DONNATAL/LIDOCAINE/MAALOX 30 ML SUSP PO ONE (00:35)
[2024-06-25] MEDS: LIDOCAINE VISC 2% SOLN 15 ML UDC PO ONE (01:10)
[2024-06-25] MEDS: MAGNESIUM/ALUMINUM/SIMETHICONE 30 ML UDC PO ONE (01:10)
[2024-06-25] MEDS: BELLADONNA ALK/PHENOBARBITAL 5 ML UDC PO ONE (01:11)
[2024-06-25] MEDS ORDERED: CARVEDILOL 12.5 MG TAB PO SCH (09:00)
[2024-06-25] MEDS: SENNA-S TABLET PO SCH (12:41)
[2024-06-25] MEDS: LACTULOSE SYRUP 20 GM/30 ML UDC PO PRN (12:47)
[2024-06-25] MEDS: RIFAXIMIN 550 MG TABLET PO STA (22:39)
[2024-06-26 00:22] VITALS: BP 123/94; PULSE 99; RESP 19; TEMP 98.9; O2SAT 100
[2024-06-26 03:35] VITALS: BP 137/80; PULSE 101; RESP 19; TEMP 98.5; O2SAT 100
[2024-06-26] MEDS ORDERED: RIFAXIMIN 550 MG TABLET PO SCH (06:00)
[2024-06-26 06:21] LABS: BASOPHILS % 0.5 % (0.0-1.0); EOSINOPHILS # (AUTO) 0.4 (0.0-0.4); EOSINOPHILS % 4.4 % (0.0-6.0); HEMATOCRIT 30.2 % (34.2-44.1); LYMPHOCYTES # (AUTO) 3.1 (1.0-3.2); LYMPHOCYTES % 37.6 % (18.0-39.1); MEAN CORPUSCULAR HGB CONC 33.1 g/dL (31-35); MEAN CORPUSCULAR VOLUME 81.4 fL (81-99); MONOCYTES # (AUTO) 1.1 (0.2-0.8); MONOCYTES % 12.9 % (4.4-11.3); NEUTROPHILS # (AUTO) 3.6 (2.1-6.9); NEUTROPHILS % 44.5 % (38.7-80.0); PLATELET COUNT 375 x10e3/uL (140-360); RED BLOOD COUNT 3.71 x10e6/uL (3.6-5.1); WHITE BLOOD COUNT 8.17 x10e3/uL (4.8-10.8)
[2024-06-26 06:54] LABS: ALANINE AMINOTRANSFERASE 17 IU/L (0-55); ALBUMIN 3.3 g/dL (3.5-5.0); ALBUMIN/GLOBULIN RATIO 0.9 (0.8-2.0); ALKALINE PHOSPHATASE 265 IU/L (40-150); BILIRUBIN,TOTAL 0.7 mg/dL (0.2-1.2); BLOOD UREA NITROGEN < 5 mg/dL (7-26); CARBON DIOXIDE 18 mmol/L (22-29); CHLORIDE 110 mmol/L (98-107); CREATININE, SERUM 0.67 mg/dL (0.57-1.11); EST GLOMERULAR FILTRATION RATE 110 ML/MIN (>=60); GLUCOSE 134 mg/dL (74-118); SODIUM 138 mmol/L (136-145); TOTAL PROTEIN 7.1 g/dL (6.5-8.1)
[2024-06-26 06:56] LABS: BUN/CREATININE RATIO 7 (6-25)
[2024-06-26 08:00] VITALS: BP 126/72; PULSE 105; RESP 19; TEMP 97.8; O2SAT 99
[2024-06-26] MEDS: RIFAXIMIN 550 MG TABLET PO SCH (09:51)
[2024-06-26] MEDS: POTASSIUM CHLORIDE 10MEQ EA PO ONE (09:52)
[2024-06-26 12:00] VITALS: BP 130/65; PULSE 98; RESP 18; TEMP 97.8; O2SAT 99
[2024-06-26 16:00] VITALS: BP 131/74; PULSE 110; RESP 18; TEMP 97.8; O2SAT 99
[2024-06-26 20:00] VITALS: BP 124/70; PULSE 105; RESP 21; TEMP 97.9; O2SAT 99
[2024-06-27] VITALS (7 sets, daily range): BP systolic 123–137; BP diastolic 74–87; PULSE 89–99; RESP 18–20; TEMP 98.2–98.7; O2SAT 98–100
[2024-06-27] MEDS: HYDROMORPHONE 1MG/1ML INJ IV STA (08:19)
[2024-06-27 16:55] LABS: HEPATITIS A ANTIBODY IGM (P) Non Reactive; HEPATITIS B CORE IGM (P) Non Reactive; HEPATITIS B SURFACE AG (P) Non Reactive
[2024-06-27 16:56] LABS: HEPATITIS C ANTIBODY Non Reactive
== END 2024-06-27 16:00 | disposition home or self-care (01) | DRG 439 ==
LOC: FSED 18:32 → ERHOLD 21:42 → MED/SURG3 23:09
PROVIDERS: ADMIT Internal Medicine; ATTEND Internal Medicine
PROC: 02HV33Z Insertion of Infusion Device into Superior Vena Cava, Percutaneous Approach (ICD-10-PCS; principal; 2024-06-25)
DX: K85.90 Acute pancreatitis without necrosis or infection, unspecified (principal); C25.9 Malignant neoplasm of pancreas, unspecified; K86.1 Other chronic pancreatitis; E83.51 Hypocalcemia; E86.0 Dehydration; I10 Essential (primary) hypertension; K76.0 Fatty (change of) liver, not elsewhere classified; Z79.52 Long term (current) use of systemic steroids; Z92.21 Personal history of antineoplastic chemotherapy; Z90.49 Acquired absence of other specified parts of digestive tract; Z90.710 Acquired absence of both cervix and uterus; Z91.041 Radiographic dye allergy status; Z91.048 Other nonmedicinal substance allergy status; Z88.5 Allergy status to narcotic agent; Z88.8 Allergy status to other drugs, medicaments and biological substances; Z88.6 Allergy status to analgesic agent
CPT/HCPCS: 36415; 74176; 80048; 80053; 80076; 81003; 82746; 83690; 85025; 86301; 99284; J1171; J1650; J2470; J2543; J2550; J2765; J7030

== ENCOUNTER 2024-12-12 16:38 | Inpatient (IN) | payer BC ==
[~2024-12-12] VITALS: Ht 152.4 cm; Wt 61.2 kg
[~2024-12-12 16:38] MED LIST changes: +DIFLUCAN100 MG PO; +ENULOSE10 GM/15 M PO; +LANTUS 3ML100 UNITS/ SQ; +MIRALAX17 GM PO
[2024-12-12 17:58] LABS: BASOPHILS % 0.3 % (0.0-1.0); EOSINOPHILS # (AUTO) 0.3 (0.0-0.4); EOSINOPHILS % 4.4 % (0.0-6.0); HEMATOCRIT 30.3 % (34.2-44.1); HEMOGLOBIN 9.9 g/dL (12.0-16.0); LYMPHOCYTES # (AUTO) 2.6 (1.0-3.2); LYMPHOCYTES % 35.9 % (18.0-39.1); MEAN CORPUSCULAR HEMOGLOBIN 26.3 pg (28-32); MEAN CORPUSCULAR HGB CONC 32.7 g/dL (31-35); MEAN CORPUSCULAR VOLUME 80.4 fL (81-99); MONOCYTES # (AUTO) 1.1 (0.2-0.8); MONOCYTES % 15.6 % (4.4-11.3); NEUTROPHILS # (AUTO) 3.2 (2.1-6.9); NEUTROPHILS % 43.5 % (38.7-80.0); PLATELET COUNT 480 x10e3/uL (140-360); RED BLOOD COUNT 3.77 x10e6/uL (3.6-5.1); RED CELL DISTRIBUTION WIDTH 22.6 % (11.7-14.4); WHITE BLOOD COUNT 7.24 x10e3/uL (4.8-10.8)
[2024-12-12 18:00] LABS: BILIRUBIN,URINE NEGATIVE (NEGATIVE); CLARITY,URINE CLEAR (CLEAR); COLOR,URINE COLORLESS (YELLOW); GLUCOSE, URINE NEGATIVE (NEGATIVE); KETONES,URINE NEGATIVE (NEGATIVE); LEUKOCYTE ESTERASE ,URINE NEGATIVE (NEGATIVE); NITRITE,URINE NEGATIVE (NEGATIVE); PH,URINE 7 (5 - 7); PROTEIN,URINE DIPSTICK NEGATIVE (NEGATIVE); URINE UROBILINOGEN 0.2 mg/dL (0.2 - 1)
[2024-12-12 18:12] LABS: BACTERIA,URINE FEW /HPF; EPITHELIAL CELLS,URINE MODERATE /LPF; RBC,URINE 0-5 /HPF (0-5)
[2024-12-12 18:14] LABS: PROTHROMBIN TIME 14.1 seconds (11.9-14.5)
[2024-12-12 18:15] LABS: PARTIAL THROMBOPLASTIN TIME 32.6 seconds (23.8-35.5)
[2024-12-12] MEDS: SODIUM CHLORIDE 0.9% 1000ML 1,840 ML IV ONE (18:17)
[2024-12-12 18:20] LABS: ALBUMIN 3.6 g/dL (3.5-5.0); ALBUMIN/GLOBULIN RATIO 0.8 (0.8-2.0); BILIRUBIN,TOTAL 0.7 mg/dL (0.2-1.2); CALCIUM 9.7 mg/dL (8.4-10.2); CREATININE, SERUM 0.81 mg/dL (0.57-1.11); TOTAL PROTEIN 7.9 g/dL (6.5-8.1)
[2024-12-12] MEDS: HYDROMORPHONE 1MG/1ML INJ IV STA (19:10)
[2024-12-12] MEDS: PROMETHAZINE HCL (IM) 25 MG/ML VIAL IM ONE (19:10)
[2024-12-12] MEDS: METOCLOPRAMIDE HCL 10 MG/2ML VIAL IV SCH (21:42)
[2024-12-12] MEDS: SODIUM CHLORIDE 0.9% 1000ML 1,000 ML IV SCH (21:42)
[2024-12-12] MEDS: DEXTROSE 50% SYRINGE 50 ML IV PRN (21:48)
[2024-12-12] MEDS: DEXTROSE 5% 1,000 ML IV SCH (22:08)
[2024-12-12 22:26] VITALS: PULSE 99; RESP 16; O2SAT 98
[2024-12-12 23:26] VITALS: PULSE 99; RESP 16; TEMP 98.2
[2024-12-12] MEDS: HYDROMORPHONE 1MG/1ML INJ IV PRN (23:40)
[2024-12-13] VITALS (14 sets, daily range): BP systolic 124–147; BP diastolic 75–82; PULSE 84–110; RESP 16–20; TEMP 97.6–99.3; O2SAT 97–100
[2024-12-13] MEDS ORDERED: HUMALOG MI100 UNIT/2 SQ (00:29)
[2024-12-13 06:21] LABS: BASOPHILS # (AUTO) 0.1 (0.0-0.1); BASOPHILS % 0.5 % (0.0-1.0); EOSINOPHILS # (AUTO) 0.6 (0.0-0.4); EOSINOPHILS % 4.9 % (0.0-6.0); HEMATOCRIT 31.8 % (34.2-44.1); HEMOGLOBIN 10.2 g/dL (12.0-16.0); LYMPHOCYTES # (AUTO) 4.7 (1.0-3.2); LYMPHOCYTES % 41.7 % (18.0-39.1); MEAN CORPUSCULAR HEMOGLOBIN 26.5 pg (28-32); MEAN CORPUSCULAR HGB CONC 32.1 g/dL (31-35); MEAN CORPUSCULAR VOLUME 82.6 fL (81-99); MONOCYTES # (AUTO) 1.6 (0.2-0.8); NEUTROPHILS # (AUTO) 4.3 (2.1-6.9); NEUTROPHILS % 38.6 % (38.7-80.0); PLATELET COUNT 476 x10e3/uL (140-360); RED BLOOD COUNT 3.85 x10e6/uL (3.6-5.1); RED CELL DISTRIBUTION WIDTH 22.7 % (11.7-14.4); WHITE BLOOD COUNT 11.22 x10e3/uL (4.8-10.8)
[2024-12-13 06:46] LABS: ALBUMIN 3.6 g/dL (3.5-5.0); ALBUMIN/GLOBULIN RATIO 0.8 (0.8-2.0); ANION GAP 13.9 mmol/L (8-16); BILIRUBIN,TOTAL 0.8 mg/dL (0.2-1.2); CALCIUM 9.5 mg/dL (8.4-10.2); CREATININE, SERUM 0.78 mg/dL (0.57-1.11); TOTAL PROTEIN 8.2 g/dL (6.5-8.1)
[2024-12-13 06:50] LABS: POTASSIUM 2.9 mmol/L (3.5-5.1)
[2024-12-13] MEDS: INSULIN REGULAR, HUMAN 100 UNIT/1 ML SQ SCH (07:30)
[2024-12-13 08:56] LABS: MAGNESIUM 1.7 MG/DL (1.3-2.1); PHOSPHORUS 3.8 MG/DL (2.3-4.7)
[2024-12-13] MEDS: METOCLOPRAMIDE HCL 10 MG/2ML VIAL IV SCH (11:30)
[2024-12-13] MEDS: PROMETHAZINE HCL (IM) 25 MG/ML VIAL IM PRN (13:03)
[2024-12-13] MEDS: D5.45%NS/KCL 20MEQ 1,000 ML IV SCH (13:55)
[2024-12-14] VITALS (12 sets, daily range): BP systolic 122–149; BP diastolic 67–84; PULSE 90–111; RESP 17–19; TEMP 98–99.5; O2SAT 96–100
[2024-12-14] MEDS: RIFAXIMIN 550 MG TABLET PO STA (00:03)
[2024-12-14] MEDS: AMYLAS/CELLU/LIPAS/PROTEA/BILE 12,000 UNIT CAP PO STA (00:03)
[2024-12-14 06:13] LABS: BASOPHILS # (AUTO) 0.1 (0.0-0.1); BASOPHILS % 0.5 % (0.0-1.0); EOSINOPHILS # (AUTO) 0.4 (0.0-0.4); EOSINOPHILS % 4.2 % (0.0-6.0); HEMATOCRIT 28.3 % (34.2-44.1); LYMPHOCYTES % 29.4 % (18.0-39.1); MEAN CORPUSCULAR HEMOGLOBIN 26.2 pg (28-32); MEAN CORPUSCULAR HGB CONC 31.8 g/dL (31-35); MEAN CORPUSCULAR VOLUME 82.5 fL (81-99); MONOCYTES # (AUTO) 1.8 (0.2-0.8); MONOCYTES % 17.6 % (4.4-11.3); NEUTROPHILS # (AUTO) 4.9 (2.1-6.9); PLATELET COUNT 442 x10e3/uL (140-360); RED BLOOD COUNT 3.43 x10e6/uL (3.6-5.1); RED CELL DISTRIBUTION WIDTH 22.7 % (11.7-14.4); WHITE BLOOD COUNT 10.14 x10e3/uL (4.8-10.8)
[2024-12-14] MEDS: RIFAXIMIN 550 MG TABLET PO SCH (06:18)
[2024-12-14 06:39] LABS: % IRON SATURATION 42 % (15-50); IRON 135 ug/dL (50-170); TOTAL IRON BINDING CAPACITY 325 ug/dL (261-478); TRANSFERRIN 232 mg/dL (180-382)
[2024-12-14 06:42] LABS: ALBUMIN 3.2 g/dL (3.5-5.0); ALBUMIN/GLOBULIN RATIO 0.8 (0.8-2.0); ANION GAP 13.7 mmol/L (8-16); BILIRUBIN,TOTAL 0.8 mg/dL (0.2-1.2); CALCIUM 9.6 mg/dL (8.4-10.2); CREATININE, SERUM 0.75 mg/dL (0.57-1.11); MAGNESIUM 1.6 MG/DL (1.3-2.1); PHOSPHORUS 4.5 MG/DL (2.3-4.7); POTASSIUM 3.7 mmol/L (3.5-5.1); TOTAL PROTEIN 7.2 g/dL (6.5-8.1)
[2024-12-14] MEDS: AMYLAS/CELLU/LIPAS/PROTEA/BILE 12,000 UNIT CAP PO SCH (08:12)
[2024-12-14] MEDS ORDERED: AMYLAS/CELLU/LIPAS/PROTEA/BILE 12,000 UNIT CAP PO SCH (09:00)
[2024-12-14] MEDS ORDERED: DEXTROSE 50% SYRINGE 50 ML IV PRN (09:45)
[2024-12-14] MEDS: CARVEDILOL 12.5 MG TAB PO SCH (10:10)
[2024-12-14] MEDS: DEXTROSE 5%/0.9% SOD CHL 1,000 ML IV SCH (10:11)
[2024-12-14] MEDS: INSULIN LISPRO 100 UNIT/1 ML 3ML VIAL SQ SCH (10:52)
[2024-12-14] MEDS: HYDROMORPHONE 1MG/1ML INJ IV PRN ×2 (14:55→18:13)
[2024-12-14] MEDS: PROMETHAZINE 12.5MG/ NACL 0.9% 12.5 MG/50 ML BAG IV PRN (15:10)
[2024-12-14] MEDS: LACTULOSE SYRUP 20 GM/30 ML UDC PO SCH (16:28)
[2024-12-14] MEDS: POLYETHYLENE GLYCOL 3350 17 GM PACK PO SCH (16:29)
[2024-12-14] MEDS: MUPIROCIN 2% OINT 22 GM TUBE TOP SCH (17:00)
[2024-12-14] MEDS ORDERED: ZIPRASIDONE 20 MG VIAL IM STA (17:17)
[2024-12-14] MEDS ORDERED: WATER STERILE 10 ML VIAL INJ SCH (17:30)
[2024-12-14] MEDS: DEXTROSE 10% 1,000 ML IV SCH (18:23)
[2024-12-14 18:28] LABS: FREE T4 (FREE THYROXINE) 1.05 ng/dL (0.8-1.8); THYROID STIMULATING HORMONE 1.202 uIU/mL (0.350-4.940)
[2024-12-15] VITALS (10 sets, daily range): BP systolic 103–134; BP diastolic 61–83; PULSE 86–108; RESP 11–18; TEMP 97.8–98.1; O2SAT 98–100
[2024-12-15] MEDS: ACETAMINOPHEN/CODEINE 300MG - 30MG TAB PO PRN (02:39)
[2024-12-15] MEDS: INSULIN LISPRO 100 UNIT/1 ML 3ML VIAL SQ SCH (16:30)
[2024-12-16] VITALS (8 sets, daily range): BP systolic 117–143; BP diastolic 70–83; PULSE 98–117; RESP 17–21; TEMP 98.2–98.5; O2SAT 98–100
[2024-12-16] MEDS: HYDROMORPHONE 1MG/1ML INJ IV PRN (12:26)
[2024-12-17 01:21] VITALS: BP 145/77; PULSE 107; RESP 18; TEMP 98.1; O2SAT 99
[2024-12-17 04:25] VITALS: BP 132/66; PULSE 99; RESP 18; TEMP 98.3; O2SAT 100
[2024-12-17 05:20] LABS: BASOPHILS % 0.3 % (0.0-1.0); EOSINOPHILS # (AUTO) 0.6 (0.0-0.4); HEMATOCRIT 28.4 % (34.2-44.1); HEMOGLOBIN 9.4 g/dL (12.0-16.0); LYMPHOCYTES # (AUTO) 3.4 (1.0-3.2); LYMPHOCYTES % 30.3 % (18.0-39.1); MEAN CORPUSCULAR HEMOGLOBIN 26.7 pg (28-32); MEAN CORPUSCULAR HGB CONC 33.1 g/dL (31-35); MEAN CORPUSCULAR VOLUME 80.7 fL (81-99); MONOCYTES # (AUTO) 1.8 (0.2-0.8); NEUTROPHILS # (AUTO) 5.4 (2.1-6.9); NEUTROPHILS % 48.2 % (38.7-80.0); PLATELET COUNT 423 x10e3/uL (140-360); RED BLOOD COUNT 3.52 x10e6/uL (3.6-5.1); RED CELL DISTRIBUTION WIDTH 22.4 % (11.7-14.4); WHITE BLOOD COUNT 11.22 x10e3/uL (4.8-10.8)
[2024-12-17 05:47] LABS: ALBUMIN 3.3 g/dL (3.5-5.0); ALBUMIN/GLOBULIN RATIO 0.8 (0.8-2.0); ANION GAP 12.8 mmol/L (8-16); BILIRUBIN,TOTAL 0.7 mg/dL (0.2-1.2); CALCIUM 9.5 mg/dL (8.4-10.2); CREATININE, SERUM 0.83 mg/dL (0.57-1.11); POTASSIUM 3.8 mmol/L (3.5-5.1); TOTAL PROTEIN 7.2 g/dL (6.5-8.1)
[2024-12-17 08:03] VITALS: BP 107/76; PULSE 88; RESP 18; TEMP 98.3; O2SAT 99
[2024-12-17 11:44] VITALS: BP 126/68; PULSE 97; RESP 18; TEMP 98.7; O2SAT 100
== END 2024-12-17 12:38 | disposition home or self-care (01) | DRG 73 ==
LOC: ER 18:09 → ERHOLD 21:25 → MED/SURG2 12-13 00:04 → OBSVTOIN 12-13 10:26 → ICU 12-15 → MED/SURG2 12-15 18:30
PROVIDERS: ADMIT Internal Medicine; ATTEND Internal Medicine
DX: E11.43 Type 2 diabetes mellitus with diabetic autonomic (poly)neuropathy (principal); K85.90 Acute pancreatitis without necrosis or infection, unspecified; Q61.5 Medullary cystic kidney; K86.1 Other chronic pancreatitis; K31.84 Gastroparesis; E11.649 Type 2 diabetes mellitus with hypoglycemia without coma; K63.8219 Small intestinal bacterial overgrowth, unspecified; E11.65 Type 2 diabetes mellitus with hyperglycemia; Z79.4 Long term (current) use of insulin; G89.29 Other chronic pain; E86.0 Dehydration; I10 Essential (primary) hypertension; D64.9 Anemia, unspecified; D75.839 Thrombocytosis, unspecified; J45.909 Unspecified asthma, uncomplicated; Z85.07 Personal history of malignant neoplasm of pancreas; Z90.411 Acquired partial absence of pancreas; Z90.81 Acquired absence of spleen; Z90.49 Acquired absence of other specified parts of digestive tract; Z79.891 Long term (current) use of opiate analgesic; Z79.899 Other long term (current) drug therapy
CPT/HCPCS: 36415; 74019; 80053; 81001; 82607; 82746; 82948; 82985; 83036; 83540; 83690; 83735; 84100; 84439; 84443; 84466; 84681; 85025; 85045; 85610; 85730; 94799; 99284; G0378; J1171; J2550; J2765; J7030; J7042; J7070; J7799